=== PATIENT | male | born 1960 | race Caucasian/White ===

== ENCOUNTER 2021-06-17 19:49 | Inpatient (IN) | payer MEDICARE ==
[2021-06-17] MEDS ORDERED: SODIUM CHLORIDE 0.9% 1,000 ML IV ONE (20:44)
--- NOTE | 2021-06-17 20:45 | ED ---
Altered Mental Status HPI - General Stated Complaint: Altered Mental Status Time Seen by Provider: 06/17/21 20:07 - History of Present Illness Initial Comments: Is a 61-year-old male with unknown past medical history is brought to the ER today for apparent altered mental status. Apparently the patient's neighbor called 911 concerned the patient is not acting like himself. EMS reports the patient was actually showering when he got there but was agreeable to coming to the hospital. Upon my evaluation the patient will not answer any questions, he looks at me and says "umm" but provides no meaningful history. He appears to be in no distress he is ambulating independently to the restroom he has no P or weaknesses he follows commands, he was able to provide a urine sample when asked to do so. Review of Systems ROS Statement: Those systems with pertinent positive or pertinent negative responses have been documented in the HPI. ROS Other: All systems not noted in ROS Statement are negative. General Exam - General Exam Comments Initial Comments: Physical Exam GENERAL: Patient is well-developed and well-nourished. Patient is nontoxic and well-hydrated and is in no distress. HENT: Normocephalic, Atraumatic. EYES: PERRL, EOMI PULMONARY: Unlabored respirations. CARDIOVASCULAR: There is a regular rate and rhythm without any murmurs gallops or rubs. ABDOMEN: Soft and nontender with normal bowel sounds. SKIN: Skin is clear with no lesions or rashes and otherwise unremarkable. : Deferred NEUROLOGIC: Not responding verbally, Normal gait, no apparent weaknesses MUSCULOSKELETAL: Normal extremities with adequate strength and full range of motion. No lower extremity swelling or edema. No calf tenderness. PSYCHIATRIC: Unable to stand Course Vital Signs 06/17/21 06/18/21 22:41 00:08 Temperature 97.4 F L Pulse Rate 87 92 Respiratory 20 16 Rate Blood Pressure 115/69 129/74 O2 Sat by Pulse 96 95 Oximetry Medical Decision Making - Medical Decision Making The patient was seen and evaluated, history is obtained from EMS and the patient I did use the patient's cell phone to call his neighbor sandro for further history however after two calls she did not answer Labs and CT of the head were obtained Patient had difficult IV access and there is delay in obtaining labs however were unremarkable, CT brain was unremarkable She did stand at the doorway of his room and asked if he could go home, patient was able speak clearly without difficulty but when asked if he had any complaints or anything was wrong or why he was at the hospital he again was not answering questions. At this time even that the patient has no history in our computer has never been seen here can provide no meaningful information I don't feel it safe to discharge him and we'll place him in observation for further evaluation. - Lab Data Result diagrams: 06/17/21 22:28 06/17/21 22:28 Lab Results 06/17/21 06/17/21 06/17/21 Range/Units 22:24 22:28 22:28 WBC 4.7 (3.8-10.6) k/uL RBC 3.61 L (4.30-5.90) m/uL Hgb 13.5 (13.0-17.5) gm/dL Hct 38.1 L (39.0-53.0) % MCV 105.5 H (80.0-100.0) fL MCH 37.4 H (25.0-35.0) pg MCHC 35.5 (31.0-37.0) g/dL RDW 14.5 (11.5-15.5) % Plt Count 124 L (150-450) k/uL MPV 7.0 Neutrophils % 57 % Lymphocytes % 29 % Monocytes % 5 % Eosinophils % 4 % Basophils % 1 % Neutrophils # 2.7 (1.3-7.7) k/uL Lymphocytes # 1.3 (1.0-4.8) k/uL Monocytes # 0.2 (0-1.0) k/uL Eosinophils # 0.2 (0-0.7) k/uL Basophils # 0.0 (0-0.2) k/uL Macrocytosis Moderate PT 10.2 (9.0-12.0) sec INR 0.9 (<1.2) APTT 25.1 (22.0-30.0) sec Sodium (137-145) mmol/L Potassium (3.5-5.1) mmol/L Chloride (98-107) mmol/L Carbon Dioxide (22-30) mmol/L Anion Gap mmol/L BUN (9-20) mg/dL Creatinine (0.66-1.25) mg/dL Est GFR (CKD-EPI)AfAm (>60 ml/min/1.73 sqM) Est GFR (CKD-EPI)NonAf (>60 ml/min/1.73 sqM) Glucose (74-99) mg/dL POC Glucose (mg/dL) 129 H (75-99) mg/dL POC Glu Staff Therapist ID Argenis Hoover Calcium (8.4-10.2) mg/dL Total Bilirubin (0.2-1.3) mg/dL AST (17-59) U/L ALT (4-49) U/L Alkaline Phosphatase (38-126) U/L Troponin I (0.000-0.034) ng/mL Total Protein (6.3-8.2) g/dL Albumin (3.5-5.0) g/dL Urine Color Urine Appearance (Clear) Urine pH (5.0-8.0) Ur Specific [place] (1.001-1.035) Urine Protein (Negative) Urine Glucose (UA) (Negative) Urine Ketones (Negative) Urine Blood (Negative) Urine Nitrite (Negative) Urine Bilirubin (Negative) Urine Urobilinogen (<2.0) mg/dL Ur Leukocyte Esterase (Negative) Urine Opiates Screen (NotDetected) Ur Oxycodone Screen (NotDetected) Urine Methadone Screen (NotDetected) Ur Propoxyphene Screen (NotDetected) Ur Barbiturates Screen (NotDetected) U Tricyclic Antidepress (NotDetected) Ur Phencyclidine Scrn (NotDetected) Ur Amphetamines Screen (NotDetected) U Methamphetamines Scrn (NotDetected) U Benzodiazepines Scrn (NotDetected) Urine Cocaine Screen (NotDetected) U Marijuana (THC) Screen (NotDetected) 06/17/21 06/17/21 06/17/21 Range/Units 22:28 22:28 22:28 WBC (3.8-10.6) k/uL RBC (4.30-5.90) m/uL Hgb (13.0-17.5) gm/dL Hct (39.0-53.0) % MCV (80.0-100.0) fL MCH (25.0-35.0) pg MCHC (31.0-37.0) g/dL RDW (11.5-15.5) % Plt Count (150-450) k/uL MPV Neutrophils % % Lymphocytes % % Monocytes % % Eosinophils % % Basophils % % Neutrophils # (1.3-7.7) k/uL Lymphocytes # (1.0-4.8) k/uL Monocytes # (0-1.0) k/uL Eosinophils # (0-0.7) k/uL Basophils # (0-0.2) k/uL Macrocytosis PT (9.0-12.0) sec INR (<1.2) APTT (22.0-30.0) sec Sodium 130 L (137-145) mmol/L Potassium 4.5 (3.5-5.1) mmol/L Chloride 99 (98-107) mmol/L Carbon Dioxide 24 (22-30) mmol/L Anion Gap 7 mmol/L BUN 6 L (9-20) mg/dL Creatinine 0.71 (0.66-1.25) mg/dL Est GFR (CKD-EPI)AfAm >90 (>60 ml/min/1.73 sqM) Est GFR (CKD-EPI)NonAf >90 (>60 ml/min/1.73 sqM) Glucose 130 H (74-99) mg/dL POC Glucose (mg/dL) (75-99) mg/dL POC Glu Staff Therapist ID Calcium 8.6 (8.4-10.2) mg/dL Total Bilirubin 1.2 (0.2-1.3) mg/dL AST 195 H (17-59) U/L ALT 147 H (4-49) U/L Alkaline Phosphatase 82 (38-126) U/L Troponin I 0.014 (0.000-0.034) ng/mL Total Protein 6.9 (6.3-8.2) g/dL Albumin 4.0 (3.5-5.0) g/dL Urine Color Colorless Urine Appearance Clear (Clear) Urine pH 5.5 (5.0-8.0) Ur Specific [place] 1.002 (1.001-1.035) Urine Protein Negative (Negative) Urine Glucose (UA) Negative (Negative) Urine Ketones Negative (Negative) Urine Blood Negative (Negative) Urine Nitrite Negative (Negative) Urine Bilirubin Negative (Negative) Urine Urobilinogen <2.0 (<2.0) mg/dL Ur Leukocyte Esterase Negative (Negative) Urine Opiates Screen Not Detected (NotDetected) Ur Oxycodone Screen Detected H (NotDetected) Urine Methadone Screen Not Detected (NotDetected) Ur Propoxyphene Screen Not Detected (NotDetected) Ur Barbiturates Screen Not Detected (NotDetected) U Tricyclic Antidepress Not Detected (NotDetected) Ur Phencyclidine Scrn Not Detected (NotDetected) Ur Amphetamines Screen Not Detected (NotDetected) U Methamphetamines Scrn Not Detected (NotDetected) U Benzodiazepines Scrn Not Detected (NotDetected) Urine Cocaine Screen Not Detected (NotDetected) U Marijuana (THC) Screen Not Detected (NotDetected) Disposition Clinical Impression: Altered mental status Disposition: ADMITTED IP TO THIS [facility] Condition: Stable Is patient prescribed a controlled substance at d/c from ED?: No Referrals: None,Stated [REFERRING] - 1-2 days
[2021-06-17 22:26] LABS: Glucose,Whole Blood 129 mg/dL (75-99)
[2021-06-17 22:40] LABS: Basophils % (A) 1 %; Eosinophils # (A) 0.2 k/uL (0-0.7); Eosinophils % (A) 4 %; HCT 38.1 % (39.0-53.0); HGB 13.5 gm/dL (13.0-17.5); Lymphocytes # (A) 1.3 k/uL (1.0-4.8); Lymphocytes % (A) 29 %; MCH 37.4 pg (25.0-35.0); MCHC 35.5 g/dL (31.0-37.0); MCV 105.5 fL (80.0-100.0); Macrocytosis Moderate; Monocytes # (A) 0.2 k/uL (0-1.0); Monocytes % (A) 5 %; Neutrophils # (A) 2.7 k/uL (1.3-7.7); Neutrophils % (A) 57 %; Platelet Count 124 k/uL (150-450); RBC 3.61 m/uL (4.30-5.90); RDW 14.5 % (11.5-15.5); WBC 4.7 k/uL (3.8-10.6)
[2021-06-17 22:49] LABS: INR 0.9 (<1.2); Partial Thromboplastin Time 25.1 sec (22.0-30.0); Prothrombin Time 10.2 sec (9.0-12.0)
[2021-06-17 22:54] LABS: ALT 147 U/L (4-49); AST 195 U/L (17-59); African American GFR (CKD) >90 (>60 ml/min/1.73 sqM); Alkaline Phosphatase 82 U/L (38-126); Anion Gap 7 mmol/L; Blood Urea Nitrogen 6 mg/dL (9-20); Calcium 8.6 mg/dL (8.4-10.2); Carbon Dioxide 24 mmol/L (22-30); Chloride 99 mmol/L (98-107); Glucose 130 mg/dL (74-99); Non-African American GFR(CKD) >90 (>60 ml/min/1.73 sqM); Sodium 130 mmol/L (137-145); Total Bilirubin 1.2 mg/dL (0.2-1.3); Total Protein 6.9 g/dL (6.3-8.2)
[2021-06-17 23:06] LABS: Potassium 4.5 mmol/L (3.5-5.1)
--- NOTE | 2021-06-17 23:48 | XR ---
EXAMINATION TYPE: XR chest 2V DATE OF EXAM: 06/17/2021 COMPARISON: NONE HISTORY: Altered mental status TECHNIQUE: 2 views FINDINGS: There is no heart failure nor confluent pneumonic infiltrate. There are no hilar masses. Th ere is very slight blunting right costophrenic angle. Bony thorax is intact IMPRESSION: Mild pleural reaction lateral right lung base. No heart failure. No pulmonary consolidati on.
--- NOTE | 2021-06-17 23:52 | CT ---
EXAMINATION TYPE: CT brain wo con DATE OF EXAM: 06/17/2021 COMPARISON: None HISTORY: ams CT DLP: 1095.4 mGycm Automated exposure control for dose reduction was used. There is some hypodensity in the periventricular white matter with foci that measure up to 1 cm. This is consistent with multiple white matter lacunar infarcts. These are concentrated in the frontal lob es bilaterally. There is no mass effect nor midline shift. There is no sign of intracranial hemorrhag e. Calvarium is intact. Skull base is intact. IMPRESSION: There is evidence for multiple old lacunar infarcts in the frontal lobes bilaterally. No acute intrac ranial abnormality.
[2021-06-17 23:54] LABS: Appearance,Urine Clear (Clear); Bilirubin,Urine Negative (Negative); Blood,Urine Negative (Negative); Color,Urine Colorless; Glucose,Urine (UA) Negative (Negative); Ketones,Urine Negative (Negative); Leukocyte Esterase,Urine Negative (Negative); Nitrite,Urine Negative (Negative); PH, Urine 5.5 (5.0-8.0); Protein,Urine Negative (Negative); Specific Gravity,Urine 1.002 (1.001-1.035); Urobilinogen,Urine <2.0 mg/dL (<2.0)
[2021-06-18 00:05] LABS: Amphetamine Screen,Urine Not Detected (NotDetected); Barbiturate Screen,Urine Not Detected (NotDetected); Benzodiazepines Screen,Urine Not Detected (NotDetected); Cocaine Screen,Urine Not Detected (NotDetected); Methadone Screen, Urine Not Detected (NotDetected); Opiate Screen,Urine Not Detected (NotDetected); Oxycodone Screen, Urine Detected (NotDetected); Phencyclidine Screen,Urine Not Detected (NotDetected); Tricyclic Antidepressant,Urine Not Detected (NotDetected); Urn Cannabinoid Scrn Not Detected (NotDetected)
[2021-06-18] MEDS ORDERED: NALOXONE 0.4 MG/ML 1 ML VIAL IV PRN (00:44)
[2021-06-18] MEDS ORDERED: THIAMINE 100 MG/ML 2 ML VIAL IM STA (02:58)
[2021-06-18] MEDS ORDERED: LORazepam 2 MG/ML INJ IV PRN ×3 (02:58)
--- NOTE | 2021-06-18 02:58 | P.HPIM ---
History of Present Illness H&P Date: 06/17/21 Chief Complaint: altered mental status 61 year old male , unknown past medical history patient unable to provide any meaningful history , due to what appears like expressive aphasia per ED doc, and EMS staff. Patient remains has notified EMS of changes and patient behavior and mental status upon EMS arrival to the house the patient was taking a shower however he was saying anything he did not resist when EMS tried to evaluate him due to his behavior they decided to bring him to the hospital for evaluation patient did not resist and he was very cooperative In the ED he was having expressive aphasia but every now and then he would say 1 word or a small sentence fluently. He was seen walking independently to the bathroom and back. At another incident he was trying to go home so he got up and got to the door and he was told that he has stay in the hospital to be checked and monitored and he was okay with that and went back to bed. However he doesn't say much I tried to use a piece of paper to indicate yes and no however he was again unreliable he definitely has some component of expressive aphasia. There is an emergency contact number that we attempted to call and we used his phone to call with appears to be a family member however no one was answering Patient has never been told of system we can't identify his past medical history or his medication list Imaging in the ED CT of the brain and chest x-ray both did not show any acute pathology Blood work did show macrocytosis without anemia, thrombocytopenia Hyponatremia, moderately elevated liver enzymes Urine drug screen was only positive for oxycodone Otherwise patient follows commands properly Review of Systems ROS unobtainable: due to mental status Past Medical History Past Medical History: Unable to Obtain, Diabetes Mellitus History of Any Multi-Drug Resistant Organisms: None Reported Past Surgical History: Unable to Obtain Past Anesthesia/Blood Transfusion Reactions: Unable to Obtain Past Psychological History: Unable to Obtain Smoking Status: Current every day smoker Past Alcohol Use History: Occasional Past Drug Use History: None Reported - Past Family History Family Family Medical History: Unable to Obtain Medications and Allergies Allergies Allergy/AdvReac Type Severity Reaction Status Date / Time No Known Allergies Allergy Verified 06/18/21 01:00 Physical Exam Vitals: Vital Signs Temp Pulse Resp BP Pulse Ox 06/18/21 02:10 97.5 F L 81 18 121/70 96 06/18/21 00:08 92 16 129/74 95 06/17/21 22:41 97.4 F L 87 20 115/69 96 Intake and Output 06/17/21 06/17/21 06/18/21 14:59 22:59 06:59 Other: Weight 81.647 kg 81.647 kg Constitutional: No acute distress, expressive aphasia, following commands properly Eyes: Anicteric sclerae, moist conjunctiva, Pupils equal round reactive to light ENMT: NC/AT Oropharynx clear, no erythema, or exudates Neck: Supple, FROM, no masses, or JVD No carotid bruits No thyromegaly Lungs: Clear to auscultation Clear to percussion Normal respiratory effort, no accessory muscle use Cardiovascular: Heart regular in rate and rhythm, No murmurs, gallops, or rubs No peripheral edema Abdominal: Soft Nontender, no guarding, rebound or rigidity Abdomen moving with respiration Normoactive bowel sounds No hepatomegaly, No splenomegaly No palpable mass No abdominal wall hernia noted Skin: Normal temperature, tone, texture, turgor No induration No subcutaneous nodules No rash, lesions No ulcers Extremities: No digital cyanosis No clubbing Pedal pulses intact and symmetrical Radial pulses intact and symmetrical No calf tenderness Psychiatric: Alert expressive aphasia Neuro Muscles Strength 5/5 in all 4 extremities Sensation to light touch grossly present throughout Cranial nerves II-XII grossly intact No focal sensory deficits Lymphatics: no palpable cervical or supraclavicular , or inguinal lymph nodes Results CBC & Chem 7: 06/17/21 22:28 06/17/21 22:28 Labs: Abnormal Lab Results - Last 24 Hours (Table) 06/17/21 06/17/21 06/17/21 Range/Units 22:24 22:28 22:28 RBC 3.61 L (4.30-5.90) m/uL Hct 38.1 L (39.0-53.0) % MCV 105.5 H (80.0-100.0) fL MCH 37.4 H (25.0-35.0) pg Plt Count 124 L (150-450) k/uL Sodium (137-145) mmol/L BUN (9-20) mg/dL Glucose (74-99) mg/dL POC Glucose (mg/dL) 129 H (75-99) mg/dL AST (17-59) U/L ALT (4-49) U/L Ur Oxycodone Screen Detected H (NotDetected) 06/17/21 Range/Units 22:28 RBC (4.30-5.90) m/uL Hct (39.0-53.0) % MCV (80.0-100.0) fL MCH (25.0-35.0) pg Plt Count (150-450) k/uL Sodium 130 L (137-145) mmol/L BUN 6 L (9-20) mg/dL Glucose 130 H (74-99) mg/dL POC Glucose (mg/dL) (75-99) mg/dL AST 195 H (17-59) U/L ALT 147 H (4-49) U/L Ur Oxycodone Screen (NotDetected) Thrombosis Risk Factor Assmnt - Choose All That Apply Each Factor Represents 1 point: Age 41-60 years Other Risk Factors: No Other congenital or acquired thrombophilia - If yes, enter type in comment: No Thrombosis Risk Factor Assessment Total Risk Factor Score: 1 Thrombosis Risk Factor Assessment Level: Low Risk Assessment and Plan Assessment: Expressive aphasia unknown duration Bizarre behavior possible altered mental status of unknown duration No family members accessible at this time to obtain further history Patient new To the system no prior data Patient roommate reported to EMS that patient has been having odd behavior or confusion for at least [address] of the brain unremarkable There is moderate transaminitis 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
[2021-06-18] MEDS: SODIUM CHLORIDE 0.9% 1,000 ML IV SCH ×3 (03:11→18:35)
[2021-06-18] MEDS ORDERED: ASPIRIN 81 MG PO STA (10:42)
--- NOTE | 2021-06-18 10:44 | P.PN ---
Subjective Progress Note Date: 06/18/21 Pt still having trouble with expression; intermittently able to give clear sentence or words. Follows commands. is apparently in communication with patient and is on her way to hospital. Objective - Vital Signs Vital signs: Vital Signs Temp 97.9 F 06/18/21 07:40 Pulse 86 06/18/21 07:40 Resp 18 06/18/21 07:40 BP 154/86 06/18/21 07:40 Pulse Ox 93 L 06/18/21 07:40 Intake & Output 06/17/21 06/18/21 06/18/21 18:59 06:59 18:59 Weight 81.647 kg Other: # Voids 0 - Exam Gen: awake, alert HEENT: normocephalic, atraumatic, good hearing acuity, moist mucous membranes Resp: good air exchange, breathing comfortably with no accessory muscle use CVS: good distal perfusion x 4, GI: soft, NTTP, ND : no SPT, no CVAT, delatorre catheter not present MSK: no pitting edema, no clubbing Neuro: expressive aphasia, moving all extremities, 5/5 motor strength in UE/LE Psych: cooperative, psychomotor agitation - Labs CBC & Chem 7: 06/17/21 22:28 06/17/21 22:28 Labs: Abnormal Lab Results - Last 24 Hours (Table) 06/17/21 06/17/21 06/17/21 Range/Units 22:24 22:28 22:28 RBC 3.61 L (4.30-5.90) m/uL Hct 38.1 L (39.0-53.0) % MCV 105.5 H (80.0-100.0) fL MCH 37.4 H (25.0-35.0) pg Plt Count 124 L (150-450) k/uL Sodium (137-145) mmol/L BUN (9-20) mg/dL Glucose (74-99) mg/dL POC Glucose (mg/dL) 129 H (75-99) mg/dL AST (17-59) U/L ALT (4-49) U/L Ur Oxycodone Screen Detected H (NotDetected) 06/17/21 Range/Units 22:28 RBC (4.30-5.90) m/uL Hct (39.0-53.0) % MCV (80.0-100.0) fL MCH (25.0-35.0) pg Plt Count (150-450) k/uL Sodium 130 L (137-145) mmol/L BUN 6 L (9-20) mg/dL Glucose 130 H (74-99) mg/dL POC Glucose (mg/dL) (75-99) mg/dL AST 195 H (17-59) U/L ALT 147 H (4-49) U/L Ur Oxycodone Screen (NotDetected) Assessment and Plan Assessment: Expressive aphasia unknown duration Bizarre behavior possible altered mental status of unknown duration No family members accessible at this time to obtain further history Patient new To the system no prior data Patient roommate reported to EMS that patient has been having odd behavior or confusion for at least [address] of the brain unremarkable Neuro consult Consideration of psych consult if no organic cause found and no resolution of aphasia There is moderate transaminitis 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
--- NOTE | 2021-06-18 12:59 | CT ---
EXAMINATION TYPE: CT angio head neck DATE OF EXAM: 06/18/2021 HISTORY: Expressive aphasia COMPARISON: None CT DLP: 1702.3 mGycm. Automated Exposure Control for Dose Reduction was Utilized. TECHNIQUE: CTA scan of the neck is performed without and with IV Contrast, patient injected with 100 ml mL of Isovue 370, axial images are obtained, coronal and sagittal reformatted images are reviewed . 3D reconstructed images are created on an independent workstation and reviewed. FINDINGS: Carotid/Vascular Structures: There is no significant stenosis of the brachiocephalic origins, common carotid arteries, internal carotid arteries within the neck including the carotid bifurcations or int ernal carotid arteries intracranially. There is mild calcified plaque at the carotid bifurcations. Mild vascular calcifications involving the carotid siphons. There is no significant stenosis of the v ertebral arteries or basilar artery. There is no evidence of aneurysm or occlusive disease of the intracranial arterial circulation. The ventricles, basal cisterns and sulci over the convexities are within normal limits. There is no i ntra or extra-axial hemorrhage. There is no mass effect or shift of the midline structures. There are is a remote lacunar infarct in the left thalamus and of the deep periventricular white ariana er adjacent to the anterior horn of the left ventricle. IMPRESSION: 1. Remote lacunar infarcts in the white matter of the left frontal lobe and of the left thalamus. 2. Arteriosclerotic calcifications involving the carotid bifurcations and carotid siphons. 3. No significant stenosis of the arterial circulation involving the brachiocephalic origins, the car otid arteries within the neck or intracranial circulation. NASCET criteria was used in interpretation of this exam?
[2021-06-18 13:20] LABS: Basophils # (A) 0.06 X 10*3/uL (0.00-0.10); Basophils % (A) 1.3 %; Eosinophils # (A) 0.13 X 10*3/uL (0.04-0.35); Eosinophils % (A) 2.9 %; HCT 36.3 % (39.6-50.0); HGB 12.2 g/dL (13.0-17.0); Lymphocytes % (A) 19.7 %; MCH 35.2 pg (27.0-32.0); MCHC 33.6 g/dL (32.0-37.0); MCV 104.6 fL (80.0-97.0); Mean Platelet Volume 9.4 fL (9.5-12.2); Monocytes # (A) 0.31 X 10*3/uL (0.20-1.00); Monocytes % (A) 6.8 %; Neutrophils # (A) 3.14 X 10*3/uL (1.80-7.70); Neutrophils % (A) 68.9 %; Platelet Count 100 X 10*3/uL (140-440); RBC 3.47 X 10*6/uL (4.40-5.60); RDW 13.6 % (11.5-14.5); WBC 4.56 X 10*3/uL (4.50-10.00)
[2021-06-18 13:52] LABS: African American GFR (CKD) 113.3 (60.0-200.0); Albumin/Globulin Ratio 1.9 (1.60-3.17); Anion Gap 0.3 mmol/L (4.00-12.00); BUN/Creat Ratio 8.75 Ratio (12.00-20.00); Calcium 8.7 mg/dL (8.7-10.3); Carbon Dioxide 29.7 mmol/L (21.6-31.8); Chol/HDL Ratio 1.89; Globulin 2.1 g/dL (1.6-3.3); LDL Cholesterol,Calculated 53.2 mg/dL (0.0-131.0); Non-African American GFR(CKD) 97.8 (60.0-200.0); Potassium 4.4 mmol/L (3.5-5.5); Total Bilirubin 1.3 mg/dL (0.3-1.2); Total Protein 6.1 g/dL (6.2-8.2); VLDL Calculation 11.8 mg/dL (5.00-40.00)
[2021-06-18 14:21] LABS: Hemoglobin A1C 5.5 % (4.0-6.0)
[2021-06-18 16:06] LABS: Hepatitis A Antibody IgM Non-Reactive (Non-Reactive); Hepatitis B Core IgM Non-Reactive (Non-Reactive); Hepatitis B Surface Antigen Non-Reactive (Non-Reactive); Hepatitis C IgG Antibody Non-Reactive (Non-Reactive)
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
[2021-06-18] MEDS: THIAMINE 100 MG TAB PO SCH (17:14)
[2021-06-18] MEDS ORDERED: ALPRAZolam 0.5 MG TAB PO PRN (17:40)
[2021-06-18] MEDS ORDERED: HYDROcodone/APAP 7.5-325MG 1 EACH TAB PO PRN (17:40)
[2021-06-18] MEDS ORDERED: ALBUTEROL NEBULIZED 2.5 MG/3 ML INHALATION PRN (17:40)
[2021-06-18] MEDS: CYCLOBENZAPRINE 10 MG TAB PO SCH (20:03)
[2021-06-19] MEDS: SODIUM CHLORIDE 0.9% 1,000 ML IV SCH ×2 (04:11→09:24)
[2021-06-19] MEDS: THIAMINE 100 MG TAB PO SCH ×2 (06:47→15:25)
[2021-06-19] MEDS: INSULIN ASPART (NovoLOG) 100 UNIT/ML VIAL SQ SCH ×3 (06:56→15:25)
[2021-06-19] MEDS ORDERED: lisinopriL 5 MG TAB PO SCH (09:00)
[2021-06-19] MEDS ORDERED: ASPIRIN 325 MG TAB PO SCH (09:00)
[2021-06-19] MEDS ORDERED: INSULIN DETEMIR (LEVEMIR) 100 UNIT/ML SYR SQ SCH (09:00)
[2021-06-19] MEDS ORDERED: ATORVASTATIN 20 MG TAB PO SCH (09:00)
[2021-06-19] MEDS: CYCLOBENZAPRINE 10 MG TAB PO SCH (09:23)
[2021-06-19 09:28] VITALS: RESP 18
[2021-06-19 11:15] VITALS: BP 121/94; PULSE 94; TEMP 97.9
[2021-06-19 11:53] LABS: Glucose,Whole Blood 157 mg/dL (75-99)
--- NOTE | 2021-06-19 12:33 | ECHOF ---
Referral Reason:cva MEASUREMENTS -------- HEIGHT: 177.8 cm WEIGHT: 81.6 kg BP: 168/110 RVIDd: 2.2 cm (< 3.3) IVSd: 1.0 cm (0.6 - 1.1) LVIDd: 4.8 cm (3.9 - 5.3) LVPWd: 1.0 cm (0.6 - 1.1) IVSs: 1.4 cm LVIDs: 2.7 cm LVPWs: 1.8 cm LA Diam: 3.3 cm (2.7 - 3.8) Ao Diam: 3.5 cm (2.0 - 3.7) AV Cusp: 2.4 cm (1.5 - 2.6) MV EXCURSION: 16.312 mm (> 18.000) MV EF SLOPE: 171 mm/s (70 - 150) EPSS: 1.0 cm MV E Vicente: 0.75 m/s MV DecT: 194 ms MV A Vicente: 1.00 m/s MV E/A Ratio: 0.75 FINDINGS -------- Sinus rhythm. This was a technically difficult study with suboptimal views. The left ventricular size is normal. Left ventricular wall thickness is normal. Overall left vent ricular systolic function is normal with, an EF between 60 - 65 %. The right ventricle is normal in size. The left atrium is normal in size. The right atrium is normal in size. Bubbles not performed due to poor acustic windows Interatrial and interventricular septum intact. The aortic valve is trileaflet, and appears structurally normal. No aortic stenosis or regurgitation. Mild mitral annular calcification present. The tricuspid valve appears structurally normal. The pulmonic valve was not well visualized. The aortic root size is normal. IVC Not well visulized. There is no pericardial effusion. CONCLUSIONS -------- 1. The left ventricular size is normal. 2. Left ventricular wall thickness is normal. 3. Overall left ventricular systolic function is normal with, an EF between 60 - 65 %. 4. Bubbles not performed due to poor acustic windows 5. The aortic valve is trileaflet, and appears structurally normal. No aortic stenosis or regurgitati on. 6. Mild mitral annular calcification present. 7. There is no pericardial effusion. CARPENTER HELPER: Nikky Willis LENNIE
--- NOTE | 2021-06-19 14:47 | MR ---
EXAMINATION TYPE: MR brain wo con DATE OF EXAM: 06/19/2021 COMPARISON: 06/17/2021 CT brain HISTORY: Acute CVA, Loss of speech-returned 06-19-21 CONTRAST: Performed utilizing 0 mL intravenous Gadavist gadolinium contrast. TECHNIQUE: Multiplanar, multiecho imaging on a 3.0 Lucia magnet is performed through the brain. Stud y is performed within 24 hours of arrival to the hospital. The craniovertebral junction is normal. The pituitary is normal. Diffusion-weighted imaging is performed. No abnormal hyperintensity is present to suggest an acute i ntracranial infarct or acute ischemic change. There are scattered periventricular white matter hyperintensities, likely on the basis of chronic whi te matter ischemic change. An old lacunar infarct in the left frontal region adjacent to the anterior horn of the lateral ventricle may be present. Small lacunar infarct in the left thalamus may be pres ent. Ventricles and sulci are slightly prominent for the patient age. IMPRESSIONS: 1. No acute intracranial process. 2. Chronic appearing periventricular and deep white matter ischemic type changes. Couple of old appea ring small lacunar infarcts in the left frontal lobe and in the left thalamus may be present.
--- NOTE | 2021-06-19 15:04 | P.DS ---
Providers Date of admission: 06/18/21 00:48 Expected date of discharge: 06/19/21 Attending physician: Tato Allen MD Consults: 06/18/21 02:39 Consult Physician Routine Consulting Provider: Naman Freedman Consult Reason/Comments: expressive aphasia Do you want consulting provider notified?: Yes Primary care physician: Physician Nonstaff Hospital Course: Transient Ischemic Attack Expressive aphasia unknown duration Bizarre behavior possible altered mental status of unknown duration Nicotine Abuse Patient was admitted with expressive aphasia and bizarre behavior. He was seen in consultation with Neurology. Started on aspirin and statin was continued. Pt underwent CTH, CT Angiography of H/N, and MRI of the brain; no acute stroke, but old lacunar strokes. Symptoms of aphasia and behavior resolved spontaneously after 24 hours of hospitalization/observation. Pt d/c'd home with instructions to f/u with PCP. Smoking cessation counseling advised. Assessment: Gen: awake, alert HEENT: normocephalic, atraumatic, good hearing acuity, moist mucous membranes Resp: good air exchange, breathing comfortably with no accessory muscle use CVS: good distal perfusion x 4, GI: soft, NTTP, ND : no SPT, no CVAT, delatorre catheter not present MSK: no pitting edema, no clubbing Neuro: expressive aphasia, moving all extremities, 5/5 motor strength in UE/LE Psych: cooperative, euthymia Patient Condition at Discharge: Good Plan - Discharge Summary Discharge Rx Participant: No New Discharge Prescriptions: New Aspirin [Adult Low Dose Aspirin EC] 81 mg PO DAILY #30 tab Continue Albuterol Sulfate [Ventolin HFA] 2 puff INHALATION RT-Q6H PRN PRN Reason: Shortness Of Breath lisinopriL [Zestril] 5 mg PO DAILY HYDROcodone/APAP 7.5-325MG [Wilson 7.5-325] 1 tab PO TID PRN PRN Reason: Pain glipiZIDE XL [Glucotrol XL] 5 mg PO TID Atorvastatin Calcium [Lipitor] 20 mg PO DAILY metFORMIN HCL [Glucophage] 850 mg PO TID-W/MEALS Insulin Glargine,Hum.rec.anlog [Lantus Solostar Pen] 25 unit SQ DAILY Cyclobenzaprine HCl 10 mg PO BID ALPRAZolam [Xanax] 0.5 mg PO HS PRN PRN Reason: sleep Discharge Medication List ALPRAZolam [Xanax] 0.5 mg PO HS PRN 06/18/21 [History] Albuterol Sulfate [Ventolin HFA] 2 puff INHALATION RT-Q6H PRN 06/18/21 [History] Atorvastatin Calcium [Lipitor] 20 mg PO DAILY 06/18/21 [History] Cyclobenzaprine HCl 10 mg PO BID 06/18/21 [History] HYDROcodone/APAP 7.5-325MG [Wilson 7.5-325] 1 tab PO TID PRN 06/18/21 [History] Insulin Glargine,Hum.rec.anlog [Lantus Solostar Pen] 25 unit SQ DAILY 06/18/21 [History] glipiZIDE XL [Glucotrol XL] 5 mg PO TID 06/18/21 [History] lisinopriL [Zestril] 5 mg PO DAILY 06/18/21 [History] metFORMIN HCL [Glucophage] 850 mg PO TID-W/MEALS 06/18/21 [History] Aspirin [Adult Low Dose Aspirin EC] 81 mg PO DAILY #30 tab 06/19/21 [Rx] Follow up Appointment(s)/Referral(s): Jasmine Claudio MD [REFERRING] - 07/10/21 11:00 am (SATURDAY) None,Stated [REFERRING] - 1-2 days Patient Instructions/Handouts: Transient Ischemic Attack (DC), Abuse of Alcohol (DC) Discharge Disposition: HOME SELF-CARE
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
== END 2021-06-19 16:07 | disposition home or self-care (01) | DRG 69 ==
LOC: EC 19:49 → 4SSUR 06-18 00:48 → 3SCARD 06-18 18:26 → OBSVTOIN 06-19 13:55
PROVIDERS: ADMIT Internal Medicine; ATTEND Internal Medicine
DX: G45.9 Transient cerebral ischemic attack, unspecified (principal); E87.1 Hypo-osmolality and hyponatremia; R47.01 Aphasia; R41.82 Altered mental status, unspecified; I69.328 Other speech and language deficits following cerebral infarction; F10.20 Alcohol dependence, uncomplicated; I10 Essential (primary) hypertension; D75.89 Other specified diseases of blood and blood-forming organs; E11.9 Type 2 diabetes mellitus without complications; F91.9 Conduct disorder, unspecified; E78.5 Hyperlipidemia, unspecified; F17.210 Nicotine dependence, cigarettes, uncomplicated; D69.6 Thrombocytopenia, unspecified; Z74.01 Bed confinement status; Z20.822 Contact with and (suspected) exposure to COVID-19; Z71.6 Tobacco abuse counseling; Z79.84 Long term (current) use of oral hypoglycemic drugs; Z79.899 Other long term (current) drug therapy; Z87.828 Personal history of other (healed) physical injury and trauma
CPT/HCPCS: 36415; 70450; 70496; 70498; 70551; 71046; 80053; 80061; 80074; 80306; 81003; 82607; 82747; 83036; 84443; 84484; 85025; 85610; 85730; 87635; 93005; 93306; 96360; 99285

== ENCOUNTER 2021-06-22 19:15 | Inpatient (IN) | payer MEDICARE ==
[2021-06-22 19:32] VITALS: RESP 18
[2021-06-22 19:42] LABS: Basophils % (A) 1 %; Eosinophils % (A) 1 %; HCT 35.1 % (39.0-53.0); HGB 11.6 gm/dL (13.0-17.5); Lymphocytes # (A) 0.4 k/uL (1.0-4.8); Lymphocytes % (A) 13 %; MCH 36.4 pg (25.0-35.0); MCV 110.3 fL (80.0-100.0); Macrocytosis Marked; Mean Platelet Volume 8.9; Monocytes # (A) 0.2 k/uL (0-1.0); Monocytes % (A) 6 %; Neutrophils # (A) 2.6 k/uL (1.3-7.7); Neutrophils % (A) 78 %; RBC 3.19 m/uL (4.30-5.90); RDW 13.8 % (11.5-15.5); WBC 3.4 k/uL (3.8-10.6)
[2021-06-22 19:45] LABS: Platelet Count 76 k/uL (150-450)
[2021-06-22 19:53] LABS: ALT 89 U/L (4-49); AST 82 U/L (17-59); African American GFR (CKD) >90 (>60 ml/min/1.73 sqM); Albumin 3.3 g/dL (3.5-5.0); Alkaline Phosphatase 92 U/L (38-126); Anion Gap 7 mmol/L; Blood Urea Nitrogen 9 mg/dL (9-20); Calcium 8.3 mg/dL (8.4-10.2); Carbon Dioxide 23 mmol/L (22-30); Chloride 107 mmol/L (98-107); Creatine Kinase 44 U/L (55-170); Glucose 64 mg/dL (74-99); Non-African American GFR(CKD) >90 (>60 ml/min/1.73 sqM); Sodium 137 mmol/L (137-145); Total Bilirubin 1.1 mg/dL (0.2-1.3); Total Protein 5.9 g/dL (6.3-8.2)
[2021-06-22 20:09] LABS: Partial Thromboplastin Time 25.9 sec (22.0-30.0); Prothrombin Time 10.8 sec (9.0-12.0)
--- NOTE | 2021-06-22 20:24 | CT ---
EXAMINATION: CT brain wo con for TPA DATE AND TIME: 06/22/2021 7:31 PM CLINICAL INDICATION: PHH; Weakness right-sided TECHNIQUE: Standard departmental protocol DLP: 1144.8 mGy-cm COMPARISON: 06/17/2021 FINDINGS: The calvarium is intact. There is no intracranial hemorrhage. There is no intracranial mass or mass effect. No definite new intra-axial or extra-axial attenuation defect. The paranasal sinuses, middle ear cavities, and mastoid sinus air cells are clear. The orbits are unremarkable. IMPRESSION: NO ACUTE PROCESS.
[2021-06-22] MEDS ORDERED: DEXTROSE 50% SYRINGE 50 ML IVP STA (20:55)
--- NOTE | 2021-06-22 20:55 | CT ---
EXAMINATION TYPE: CT angio head neck with contrast and with 3-D reconstruction renderings DATE OF EXAM: 06/22/2021 HISTORY: Right sided weakness. Recent TIAs. COMPARISON: 06/18/2021 CT DLP: 545.8 mGycm. Automated Exposure Control for Dose Reduction was Utilized. TECHNIQUE: CTA scan of the neck is performed with IV Contrast, patient injected with 65 mL of Isovue 370, axial images are obtained, coronal and sagittal reformatted images are reviewed. 3D reconstruct ed images are created on an independent workstation and reviewed. FINDINGS: NECK CTA: The bilateral carotid and the bilateral vertebral arterial systems are widely patent. No di ssection. No flow-limiting stenosis. The venous structures of the neck are unremarkable. No incidenta l nonvascular findings. BRAIN CTA: The anterior circulation and posterior circulation are negative for significant findings. Dural venous sinuses are patent. No incidental nonvascular findings. IMPRESSION: NO SIGNIFICANT ABNORMALITY IS SEEN. NASCET criteria was used in interpretation of this exam?
[2021-06-22] MEDS ORDERED: ASPIRIN 325 MG TAB PO STA (21:05)
--- NOTE | 2021-06-22 21:10 | XR ---
EXAMINATION: XR chest 2V DATE AND TIME: 06/22/2021 8:26 PM CLINICAL INDICATION: PHH; altered mental status TECHNIQUE: Departmental protocol COMPARISON: 06/17/2021 FINDINGS: Compared with the prior study, the right hemidiaphragm is elevated. There is subtle added opacity which silhouettes the pulmonary vasculature in the right mid and lower lung zones. This was not seen on the prior study. This finding could correlate with a clinical diagno sis of early developing atypical pneumonia. If there is no clinical suspicion for atypical pneumonia, the differential for the radiographic finding includes pleural calcification. Lungs are otherwise unremarkable. Pleural spaces are negative. The cardiac silhouette is not enlarged. The remainder of the mediastinal silhouette is unremarkable. The skeletal structures and soft tissues are negative for acute findings . IMPRESSION: Silhouetted right mid and lower lung zone pulmonary vasculature, as discussed
[2021-06-22 21:14] LABS: Glucose,Whole Blood 48 mg/dL (75-99)
--- NOTE | 2021-06-22 21:43 | ED ---
Neuro HPI - General Chief Complaint: Neuro Symptoms/Deficit Stated Complaint: prince Source: patient, EMS Mode of arrival: EMS - History of Present Illness Is the patient presenting with stroke symptoms?: Yes Initial Comments: 61-year-old male presents emergency room with strokelike symptoms. He was seen earlier this week for a possible TIA. He was at home with his roommate. Remaining left to go buy some groceries. She states she was only gone for an hour. When she returned she found the patient on the ground with complete right-sided hemiparesis. He was having difficulties with his speech. EMS stated that the patient had speech difficulties, facial droop and weakness on his right side. There is no reportable trauma from his fall. They did check his glucose and it was in the 70s. They did give him oral glucose. Patient was just discharged home on aspirin. He is an insulin dependent diabetic. States he normally takes his insulin at night after he eats dinner. Reports that he normally does not eat breakfast. Patient did not eat today. He admits to lauren rred vision in his right eye. Upon transporting to the hospital the patient did have rapidly improving symptoms. No other alleviating, precipitating or modifying factors - Related Data Home Medications: Home Medications Medication Instructions Recorded Confirmed ALPRAZolam [Xanax] 0.5 mg PO HS PRN 06/18/21 06/22/21 Albuterol Sulfate [Ventolin HFA] 2 puff INHALATION RT-Q6H PRN 06/18/21 06/22/21 Atorvastatin Calcium [Lipitor] 20 mg PO DAILY 06/18/21 06/22/21 Cyclobenzaprine HCl 10 mg PO BID 06/18/21 06/22/21 HYDROcodone/APAP 7.5-325MG [[place] 1 tab PO DAILY PRN 06/18/21 06/22/21 7.5-325] Insulin Glargine,Hum.rec.anlog 25 unit SQ DAILY 06/18/21 06/22/21 [Lantus Solostar Pen] glipiZIDE XL [Glucotrol XL] 5 mg PO TID 06/18/21 06/22/21 lisinopriL [Zestril] 5 mg PO DAILY 06/18/21 06/22/21 metFORMIN HCL [Glucophage] 850 mg PO TID-W/MEALS 06/18/21 06/22/21 Previous Rx's Medication Instructions Recorded Aspirin [Adult Low Dose Aspirin EC] 81 mg PO DAILY #30 tab 06/19/21 Allergies/Adverse Reactions: Allergies Allergy/AdvReac Type Severity Reaction Status Date / Time No Known Allergies Allergy Verified 06/22/21 19:47 Review of Systems ROS Statement: Those systems with pertinent positive or pertinent negative responses have been documented in the HPI. ROS Other: All systems not noted in ROS Statement are negative. Stroke MDM - Lab Data Result diagrams: 06/22/21 19:34 06/22/21 19:34 Lab Results 06/22/21 06/22/21 06/22/21 Range/Units 19:34 19:34 19:34 WBC 3.4 L (3.8-10.6) k/uL RBC 3.19 L (4.30-5.90) m/uL Hgb 11.6 L (13.0-17.5) gm/dL Hct 35.1 L (39.0-53.0) % MCV 110.3 H (80.0-100.0) fL MCH 36.4 H (25.0-35.0) pg MCHC 33.0 (31.0-37.0) g/dL RDW 13.8 (11.5-15.5) % Plt Count 76 L (150-450) k/uL MPV 8.9 Neutrophils % 78 % Lymphocytes % 13 % Monocytes % 6 % Eosinophils % 1 % Basophils % 1 % Neutrophils # 2.6 (1.3-7.7) k/uL Lymphocytes # 0.4 L (1.0-4.8) k/uL Monocytes # 0.2 (0-1.0) k/uL Eosinophils # 0.0 (0-0.7) k/uL Basophils # 0.0 (0-0.2) k/uL Macrocytosis Marked A PT 10.8 (9.0-12.0) sec INR 1.0 (<1.2) APTT 25.9 (22.0-30.0) sec Sodium 137 (137-145) mmol/L Potassium 4.0 (3.5-5.1) mmol/L Chloride 107 (98-107) mmol/L Carbon Dioxide 23 (22-30) mmol/L Anion Gap 7 mmol/L BUN 9 (9-20) mg/dL Creatinine 0.65 L (0.66-1.25) mg/dL Est GFR (CKD-EPI)AfAm >90 (>60 ml/min/1.73 sqM) Est GFR (CKD-EPI)NonAf >90 (>60 ml/min/1.73 sqM) Glucose 64 L (74-99) mg/dL POC Glucose (mg/dL) (75-99) mg/dL POC Glu Deliverer Food ID Calcium 8.3 L (8.4-10.2) mg/dL Total Bilirubin 1.1 (0.2-1.3) mg/dL AST 82 H (17-59) U/L ALT 89 H (4-49) U/L Alkaline Phosphatase 92 (38-126) U/L Creatine Kinase 44 L (55-170) U/L Troponin I (0.000-0.034) ng/mL Total Protein 5.9 L (6.3-8.2) g/dL Albumin 3.3 L (3.5-5.0) g/dL 06/22/21 06/22/21 Range/Units 19:34 21:13 WBC (3.8-10.6) k/uL RBC (4.30-5.90) m/uL Hgb (13.0-17.5) gm/dL Hct (39.0-53.0) % MCV (80.0-100.0) fL MCH (25.0-35.0) pg MCHC (31.0-37.0) g/dL RDW (11.5-15.5) % Plt Count (150-450) k/uL MPV Neutrophils % % Lymphocytes % % Monocytes % % Eosinophils % % Basophils % % Neutrophils # (1.3-7.7) k/uL Lymphocytes # (1.0-4.8) k/uL Monocytes # (0-1.0) k/uL Eosinophils # (0-0.7) k/uL Basophils # (0-0.2) k/uL Macrocytosis PT (9.0-12.0) sec INR (<1.2) APTT (22.0-30.0) sec Sodium (137-145) mmol/L Potassium (3.5-5.1) mmol/L Chloride (98-107) mmol/L Carbon Dioxide (22-30) mmol/L Anion Gap mmol/L BUN (9-20) mg/dL Creatinine (0.66-1.25) mg/dL Est GFR (CKD-EPI)AfAm (>60 ml/min/1.73 sqM) Est GFR (CKD-EPI)NonAf (>60 ml/min/1.73 sqM) Glucose (74-99) mg/dL POC Glucose (mg/dL) 48 L (75-99) mg/dL POC Glu Deliverer Food ID Dulce Tolbert Calcium (8.4-10.2) mg/dL Total Bilirubin (0.2-1.3) mg/dL AST (17-59) U/L ALT (4-49) U/L Alkaline Phosphatase (38-126) U/L Creatine Kinase (55-170) U/L Troponin I <0.012 (0.000-0.034) ng/mL Total Protein (6.3-8.2) g/dL Albumin (3.5-5.0) g/dL - Medical Decision Making Upon arrival patient is probably taken over to CT. I did assess an NIH and it is 5 for right upper and lower extremity weakness as well as facial droop. CT and CT angiography or performed. Patient is placed back in the trauma bay. Accu-Chek obtained and is 64. Patient given an amp of dextrose. Laboratory studies are conducted. Platelets 76. CT demonstrates no acute intracranial process. I did give him a full dose aspirin. I spoke with Dr. Roque. Patient is not a TPA candidate at this time due to recent CVA and rapidly impr oving symptoms. Dr. Atkins recommend aspirin and neurology evaluation. Patient's glucose is rechecked and is 48. He is given something to eat. Spoke with Dr. Quintanilla in regards to the patient's admission. He does agree to admit the patient. He is currently awaiting a bed on the floor in stable condition. He continues to have some weakness in his right upper extremity however all other neuro deficits have improved 06/22/21 21:49 EKG demonstrates a normal sinus rhythm with a ventricular rate of 85. MO interval is 142. QRS 76. QTC 456. No acute ST segment elevations or depressions Past Medical History Past Medical History: Unable to Obtain, Diabetes Mellitus History of Any Multi-Drug Resistant Organisms: None Reported Past Surgical History: Unable to Obtain Past Anesthesia/Blood Transfusion Reactions: Unable to Obtain Past Psychological History: Unable to Obtain Smoking Status: Current every day smoker Past Alcohol Use History: Occasional Past Drug Use History: None Reported - Past Family History Family Family Medical History: Unable to Obtain Course Vital Signs 06/22/21 06/22/21 06/22/21 19:20 19:35 19:50 Temperature 98.1 F 98.1 F Pulse Rate 55 L 91 88 Respiratory 18 18 18 Rate Blood Pressure 137/91 143/90 O2 Sat by Pulse 93 L 95 95 Oximetry 06/22/21 06/22/21 20:05 21:48 Temperature Pulse Rate 94 99 Respiratory 18 18 Rate Blood Pressure 148/82 134/83 O2 Sat by Pulse 98 98 Oximetry Critical Care Time Critical Care Time: Yes Critical Care Time: 32 minutes Disposition Clinical Impression: Right hemiparesis, Cerebrovascular accident (CVA), Hypoglycemia Disposition: ADMITTED IP TO THIS [facility] Condition: Stable Is patient prescribed a controlled substance at d/c from ED?: No Decision to Admit Reason: Admit from EC Decision Date: 06/22/21 Decision Time: 21:43
[2021-06-22] MEDS ORDERED: ATORVASTATIN 80 MG TAB PO SCH (22:00)
[2021-06-22 22:12] LABS: Glucose,Whole Blood 177 mg/dL (75-99)
[2021-06-22] MEDS ORDERED: ALBUTEROL NEBULIZED 2.5 MG/3 ML INHALATION PRN (23:58)
[2021-06-22] MEDS ORDERED: ALPRAZolam 0.5 MG TAB PO PRN (23:58)
[2021-06-22] MEDS ORDERED: HYDROcodone/APAP 7.5-325MG 1 EACH TAB PO PRN (23:58)
--- NOTE | 2021-06-23 | P.HPIM ---
History of Present Illness H&P Date: 06/22/21 Patient is a 61-year-old male with a PMH of type II DM, hypertension, hyperlipidemia, recent TIA who presented to the emergency room with sudden onset of strokelike symptoms. The patient reports that he was at home as per usual sitting on his couch at around 8 PM watching television when he suddenly felt the right side of his body become weak. He reported that he was unable to speak due to the right facial weakness and was barely able to move or feel his right arm and leg. The patient's roommate immediately called EMS who witnessed the patient with a facial droop, weakness on the right side of the body, and difficulty with speech. The patient states that he never experienced a fall or any trauma. Patient further states that he usually only eats one meal a day at dinnertime and upon arrival, the EMS documented his blood sugar to be 70. At time of the evaluation, the patient reported that his facial droop had resolved and that his right arm strength had also recovered. He however reported ongoing right leg weakness. He denied visual disturbances, numbness, tingling. Also denied chest discomfort, shortness of breath, palpitations, fever, chills, cough. Denied nausea, vomiting, abdominal pain, diarrhea. Of note, the patient was recently admitted to the hospital on 06/19 for expressive aphasia and was discharged the following day after neurology evaluation after his symptoms resolved and were deemed to be likely a TIA. In the emergency room, CT brain was unremarkable with a CT angiogram of head and neck also unremarkable. Chest x-ray revealed small opacities. EKG revealed normal sinus rhythm at 85 bpm. Laboratory evaluation was remarkable for hemoglobin 11.6, platelet 76, creatinine 0.65, glucose 64, AST 82, ALT 89, troponin less than 0.012, CK 44. The case was reportedly discussed with neuro debt management counselor organizational consultant and the patient was deemed not a candidate for TPA. Review of systems: Pertinent positives and negatives as discussed in HPI, a complete review of systems was performed and all other systems are negative. Physical examination: General: non toxic, no distress, appears at stated age, overweight Derm: no unusual rashes/lesions no unusual ecchymoses, warm, dry Head: atraumatic, normocephalic, symmetric Eyes: EOMI, no lid lag, anicteric sclera, pupils equal round reactive to light ENT: Nose and ears atraumatic, no thrush, no pharyngeal erythema Neck: No thyromegaly, no cervical lymphadenopathy, trachea midline, supple Mouth: no lip lesion, mucus membranes moist Cardiovascular: S1S2 reg, no murmur, positive posterior tibial pulse bilateral, no edema, capillary refill less than 2 seconds Lungs: CTA bilateral, no rhonchi, no rales , no accessory muscle use Abdominal: soft, nontender to palpation, no guarding, no appreciable organomegaly, normal bowel sounds Ext: no gross muscle atrophy, muscle strength 5 out of 5 in all extremities e xcept right lower extremity strength 3 out of 5, no contractures Neuro: CN II-XI grossly intact, light touch intact all 4 extremities, finger to nose within normal limits, no pronator drift Psych: Alert, oriented, appropriate affect Assessment/plan CVA versus TIA -Neurology consulted -Neuro checks -Continue with aspirin and Lipitor -Fall precautions -Old therapy consult -Speech and swallow evaluation Pancytopenia -Check anemia panel -Outpatient hematology evaluation upon discharge Abnormal LFTs -Monitor for now Chronic conditions: Hypertension, hyperlipidemia, type II DM -Continue home meds -Lispro insulin sliding scale and blood glucose monitoring -Check A1c DVT prophylaxis -Heparin The patient is admitted with an anticipated greater than 2 midnight stay for evaluation of CVA CODE STATUS: Full Code Discussed with: Patient Anticipated discharge date: 2-[address]: Home Past Medical History Past Medical History: Unable to Obtain, Diabetes Mellitus History of Any Multi-Drug Resistant Organisms: None Reported Past Surgical History: Unable to Obtain Past Anesthesia/Blood Transfusion Reactions: Unable to Obtain Past Psychological History: Unable to Obtain Smoking Status: Current every day smoker Past Alcohol Use History: Occasional Past Drug Use History: None Reported - Past Family History Father Family Medical History: CVA/TIA Family Family Medical History: Unable to Obtain Medications and Allergies Home Medications Medication Instructions Recorded Confirmed Type ALPRAZolam [Xanax] 0.5 mg PO HS PRN 06/18/21 06/22/21 History Albuterol Sulfate [Ventolin HFA] 2 puff INHALATION RT-Q6H PRN 06/18/21 06/22/21 History Atorvastatin Calcium [Lipitor] 20 mg PO DAILY 06/18/21 06/22/21 History Cyclobenzaprine HCl 10 mg PO BID 06/18/21 06/22/21 History HYDROcodone/APAP 7.5-325MG [[place] 1 tab PO DAILY PRN 06/18/21 06/22/21 History 7.5-325] Insulin Glargine,Hum.rec.anlog 25 unit SQ DAILY 06/18/21 06/22/21 History [Lantus Solostar Pen] glipiZIDE XL [Glucotrol XL] 5 mg PO TID 06/18/21 06/22/21 History lisinopriL [Zestril] 5 mg PO DAILY 06/18/21 06/22/21 History metFORMIN HCL [Glucophage] 850 mg PO TID-W/MEALS 06/18/21 06/22/21 History Aspirin [Adult Low Dose Aspirin EC] 81 mg PO DAILY #30 tab 06/19/21 06/22/21 Rx Allergies Allergy/AdvReac Type Severity Reaction Status Date / Time No Known Allergies Allergy Verified 06/22/21 19:47 Physical Exam Vitals: Vital Signs Temp Pulse Resp BP Pulse Ox 06/22/21 21:48 99 18 134/83 98 06/22/21 20:05 94 18 148/82 98 06/22/21 19:50 88 18 143/90 95 06/22/21 19:35 98.1 F 91 18 137/91 95 06/22/21 19:20 98.1 F 55 L 18 93 L Intake and Output 06/22/21 06/22/21 06/23/21 14:59 22:59 06:59 Other: Weight 95.708 kg Results CBC & Chem 7: 06/22/21 19:34 06/22/21 19:34 Labs: Abnormal Lab Results - Last 24 Hours (Table) 06/22/21 06/22/21 06/22/21 Range/Units 19:34 19:34 21:13 WBC 3.4 L (3.8-10.6) k/uL RBC 3.19 L (4.30-5.90) m/uL Hgb 11.6 L (13.0-17.5) gm/dL Hct 35.1 L (39.0-53.0) % MCV 110.3 H (80.0-100.0) fL MCH 36.4 H (25.0-35.0) pg Plt Count 76 L (150-450) k/uL Lymphocytes # 0.4 L (1.0-4.8) k/uL Macrocytosis Marked A Creatinine 0.65 L (0.66-1.25) mg/dL Glucose 64 L (74-99) mg/dL POC Glucose (mg/dL) 48 L (75-99) mg/dL Calcium 8.3 L (8.4-10.2) mg/dL AST 82 H (17-59) U/L ALT 89 H (4-49) U/L Creatine Kinase 44 L (55-170) U/L Total Protein 5.9 L (6.3-8.2) g/dL Albumin 3.3 L (3.5-5.0) g/dL 06/22/21 Range/Units 22:11 WBC (3.8-10.6) k/uL RBC (4.30-5.90) m/uL Hgb (13.0-17.5) gm/dL Hct (39.0-53.0) % MCV (80.0-100.0) fL MCH (25.0-35.0) pg Plt Count (150-450) k/uL Lymphocytes # (1.0-4.8) k/uL Macrocytosis Creatinine (0.66-1.25) mg/dL Glucose (74-99) mg/dL POC Glucose (mg/dL) 177 H (75-99) mg/dL Calcium (8.4-10.2) mg/dL AST (17-59) U/L ALT (4-49) U/L Creatine Kinase (55-170) U/L Total Protein (6.3-8.2) g/dL Albumin (3.5-5.0) g/dL Thrombosis Risk Factor Assmnt - Choose All That Apply Any of the Below Risk Factors Present?: Yes Each Factor Represents 1 point: Abnormal pulmonary function (COPD), Age 41-60 years, Obesity (BMI >25) Each Risk Factor Represents 5 Points: Stroke (< 1 month) Thrombosis Risk Factor Assessment Total Risk Factor Score: 8 Thrombosis Risk Factor Assessment Level: High Risk
[2021-06-23] MEDS: HEPARIN SODIUM,PORCINE/PF 5,000 UNIT/0.5 ML SYRINGE SQ SCH ×2 (00:17→13:29)
[2021-06-23 00:23] LABS: Glucose,Whole Blood 174 mg/dL (75-99)
[2021-06-23 06:09] LABS: Glucose,Whole Blood 77 mg/dL (75-99)
[2021-06-23] MEDS: INSULIN ASPART (NovoLOG) 100 UNIT/ML VIAL SQ SCH ×2 (06:15→11:59)
[2021-06-23 07:55] LABS: HCT 33.3 % (39.0-53.0); HGB 11.2 gm/dL (13.0-17.5); MCH 36.9 pg (25.0-35.0); MCHC 33.5 g/dL (31.0-37.0); MCV 110.2 fL (80.0-100.0); Macrocytosis Marked; Mean Platelet Volume 8.4; RBC 3.02 m/uL (4.30-5.90); RDW 13.7 % (11.5-15.5); WBC 3.5 k/uL (3.8-10.6)
[2021-06-23 08:04] LABS: Platelet Count 82 k/uL (150-450)
[2021-06-23 08:21] LABS: African American GFR (CKD) >90 (>60 ml/min/1.73 sqM); Anion Gap 4 mmol/L; Blood Urea Nitrogen 9 mg/dL (9-20); Calcium 8.3 mg/dL (8.4-10.2); Carbon Dioxide 25 mmol/L (22-30); Chloride 107 mmol/L (98-107); Glucose 75 mg/dL (74-99); Non-African American GFR(CKD) >90 (>60 ml/min/1.73 sqM); Potassium 3.4 mmol/L (3.5-5.1); Sodium 136 mmol/L (137-145)
[2021-06-23] MEDS ORDERED: lisinopriL 5 MG TAB PO SCH (09:00)
[2021-06-23] MEDS ORDERED: THIAMINE 100 MG TAB PO SCH (09:00)
[2021-06-23] MEDS ORDERED: ASPIRIN 325 MG TAB PO SCH (09:00)
[2021-06-23] MEDS ORDERED: ATORVASTATIN 40 MG TAB PO SCH (09:00)
[2021-06-23] MEDS ORDERED: ATORVASTATIN 20 MG TAB PO SCH (09:00)
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
[2021-06-23] MEDS ORDERED: POTASSIUM CHLORIDE ER 20 MEQ TAB.ER PO STA (11:03)
--- NOTE | 2021-06-23 11:32 | P.DS ---
Providers Date of admission: 06/22/21 21:46 Expected date of discharge: 06/23/21 Attending physician: Rich Ayala MD Consults: 06/22/21 21:47 Consult Physician Urgent Consulting Provider: Paul Morfin Consult Reason/Comments: acute right hemiparesis - improved, suspected cvA Do you want consulting provider notified?: Yes Primary care physician: Stated None Hospital Course: Discharge Diagnosis: Symptomatic hypoglycemia recent CVA Pancytopenia due to alcohol abuse Transaminitis improving HTN HLD Diabetes Mellitus Type 2 Hospital Course: Patient is a 61 yo CM with a hx of DM 2 on insulin and oral medications, Alcohol abuse sober X 2 week, and HLD who presented with complaints of right sided weakness. On arrival to his home EMS recommended that he had a blood sugar of 67. In the ER he also had a low blood sugar at 64. He was given dextrose which resolved most of his symptoms immediately. He was admitted for further monitoring. He was seen by neurology. He had recently been seen here and discharged on 06/19 after workup for stroke. At that point in time MRI had showed some lacunar infarcts, echocardiogram and showed an ejection fraction of 60%, no left ventricular thrombus. Repeat head CT here showed no acute process. Repeat CT angiogram head and neck showed no significant abnormality. He was determined stable for discharge home after neurology agreed that these symptoms are mostly secondary to hypoglycemia. We will arrange for him to get a glucometer which she has not been using. I've asked that he follow-up with an draftsperson. He will stop his glipizide 3 times daily and decrease his long-acting insulin to 20 units. He has also been taking this with his once daily meal. I've asked him to take it on a fixed time of 10 AM. He is discharged home in stable condition. Follow-up: Patient already had a appointment scheduled with Dr. Santos on 07/10 at 11 AM and he will keep that appointment, follow-up with his primary care physician, and follow-up with Dr. Quijano for endocrinology. Patient seen and examined at bedside. No chest pain, SOB, nasuea, vomiting, or diarrhea. Symptoms resolved. WE discuasse and he has no glucometer at home. Vital signs reviewed and stable. General: non toxic, no distress, appears at stated age Derm: warm, dry Head: atraumatic, normocephalic, symmetric Eyes: EOMI, no lid lag, anicteric sclera Mouth: no lip lesion, mucus membranes moist Cardiovascular: S1S2 reg, no murmur, positive posterior tibial pulse bilateral, Lungs: CTA bilateral, no rhonchi, no rales , no accessory muscle use Abdominal: soft, nontender to palpation, no guarding, no appreciable organomegaly Ext: no gross muscle atrophy, no edema, no contractures Neuro: CN II-XI grossly intact, no focal neuro deficits Psych: Alert, oriented, appropriate affect A total of 45 minutes of time were spent preparing this complex discharge summary . Patient Condition at Discharge: Stable Plan - Discharge Summary New Discharge Prescriptions: New Aspirin 325 mg PO DAILY #30 tab Albuterol Nebulized [Ventolin Nebulized] 2.5 mg INHALATION RT-Q6H PRN ml PRN Reason: Shortness Of Breath Atorvastatin Calcium [Lipitor] 40 mg PO DAILY #30 tablet Continue lisinopriL [Zestril] 5 mg PO DAILY HYDROcodone/APAP 7.5-325MG [[place] 7.5-325] 1 tab PO DAILY PRN PRN Reason: Pain metFORMIN HCL [Glucophage] 850 mg PO TID-W/MEALS ALPRAZolam [Xanax] 0.5 mg PO HS PRN PRN Reason: sleep Changed Insulin Glargine,Hum.rec.anlog [Lantus Solostar Pen] 22 unit SQ DAILY #0 Discontinued Albuterol Sulfate [Ventolin HFA] 2 puff INHALATION RT-Q6H PRN PRN Reason: Shortness Of Breath glipiZIDE XL [Glucotrol XL] 5 mg PO TID Atorvastatin Calcium [Lipitor] 20 mg PO DAILY Aspirin [Adult Low Dose Aspirin EC] 81 mg PO DAILY #30 tab Cyclobenzaprine HCl 10 mg PO BID Discharge Medication List ALPRAZolam [Xanax] 0.5 mg PO HS PRN 06/18/21 [History] HYDROcodone/APAP 7.5-325MG [[place] 7.5-325] 1 tab PO DAILY PRN 06/18/21 [History] lisinopriL [Zestril] 5 mg PO DAILY 06/18/21 [History] metFORMIN HCL [Glucophage] 850 mg PO TID-W/MEALS 06/18/21 [History] Albuterol Nebulized [Ventolin Nebulized] 2.5 mg INHALATION RT-Q6H PRN ml 06/23/21 [Rx] Aspirin 325 mg PO DAILY #30 tab 06/23/21 [Rx] Atorvastatin Calcium [Lipitor] 40 mg PO DAILY #30 tablet 06/23/21 [Rx] Insulin Glargine,Hum.rec.anlog [Lantus Solostar Pen] 22 unit SQ DAILY #0 06/23/21 [Rx] Follow up Appointment(s)/Referral(s): Jasmine Claudio MD [REFERRING] - 07/10/21 (at 11 am) None,Stated [Primary Care Provider] - 1-2 days Yisel Quijano MD [STAFF PHYSICIAN] - 1 Week Activity/Diet/Wound Care/Special Instructions: Patient needs a glucometer at discharge to manage diabetes. Patient has insulin dependent diabetes and requires glucose testing three times per day Activity: as tolerated Diet: heart health, carb consistent Special Instructions: check blood sugars three times daily and make a log for your doctor Discharge Disposition: HOME SELF-CARE
[2021-06-23 11:58] LABS: Glucose,Whole Blood 112 mg/dL (75-99)
[2021-06-23 12:45] VITALS: BP 124/80; PULSE 100; TEMP 98
[2021-06-23 14:45] LABS: Chol/HDL Ratio 1.78 Ratio; LDL Cholesterol,Calculated 29.4 mg/dL (0.0-131.0); VLDL Calculation 11.48 mg/dL (5.00-40.00)
[2021-06-24] MEDS ORDERED: ATORVASTATIN 20 MG TAB PO SCH (09:00)
== END 2021-06-23 14:43 | disposition home or self-care (01) | DRG 638 ==
LOC: EC 19:15 → 3SCARD 21:46
PROVIDERS: ADMIT Internal Medicine; ATTEND Internal Medicine
DX: E11.649 Type 2 diabetes mellitus with hypoglycemia without coma (principal); D61.818 Other pancytopenia; G81.91 Hemiplegia, unspecified affecting right dominant side; R47.01 Aphasia; E78.5 Hyperlipidemia, unspecified; F10.10 Alcohol abuse, uncomplicated; I10 Essential (primary) hypertension; R29.810 Facial weakness; R47.81 Slurred speech; F17.200 Nicotine dependence, unspecified, uncomplicated; Z20.822 Contact with and (suspected) exposure to COVID-19; Z79.4 Long term (current) use of insulin; Z79.82 Long term (current) use of aspirin; Z79.84 Long term (current) use of oral hypoglycemic drugs; Z79.899 Other long term (current) drug therapy; Z86.73 Personal history of transient ischemic attack (TIA), and cerebral infarction without residual deficits
CPT/HCPCS: 36415; 70450; 70496; 70498; 71046; 80048; 80053; 80061; 82550; 82607; 82728; 82747; 83036; 84484; 85025; 85027; 85610; 85730; 87635; 93005; 96374; 99291

== ENCOUNTER 2022-04-04 11:28 | Emergency (ER) | payer MEDICARE ==
--- NOTE | 2022-04-04 12:38 | XR ---
EXAMINATION TYPE: XR foot complete RT DATE OF EXAM: 04/04/2022 CLINICAL HISTORY: pain TECHNIQUE: Frontal, lateral and oblique images of the right foot are obtained. COMPARISON: None. FINDINGS: There is no acute fracture/dislocation evident. The joint spaces appear within normal souza its. Soft tissue swelling noted. Dorsal calcaneal spurring seen. IMPRESSION: There is no acute fracture or dislocation. ICD 10 NO FRACTURE, INITIAL EVALUATION
[2022-04-04] MEDS ORDERED: MORPHINE SULFATE 2 MG/ML SYRINGE IM STA (12:52)
[2022-04-04] MEDS ORDERED: MORPHINE SULFATE 2 MG/ML SYRINGE IVP STA (13:00)
--- NOTE | 2022-04-04 13:44 | US ---
EXAMINATION TYPE: US venous doppler duplex LE RT DATE OF EXAM: 04/04/2022 1:25 PM COMPARISON: NONE CLINICAL HISTORY: Right foot pain and swelling, spreading proximally. Right foot pain and discolorati on x 1 week after a large object fell on it. SIDE PERFORMED: Right TECHNIQUE: The lower extremity deep venous system is examined utilizing real time linear array sonog sara with graded compression, doppler sonography and color-flow sonography. VESSELS IMAGED: Common Femoral Vein Deep Femoral Vein Greater Saphenous Vein * Femoral Vein Popliteal Vein Small Saphenous Vein * Proximal Calf Veins (* superficial vessels) Right Leg: Negative for DVT IMPRESSION: No evidence of DVT
[2022-04-04 14:13] LABS: ALT 23 U/L (4-49); AST 43 U/L (17-59); African American GFR (CKD) >90 (>60 ml/min/1.73 sqM); Albumin 4.3 g/dL (3.5-5.0); Alkaline Phosphatase 119 U/L (38-126); Anion Gap 5 mmol/L; Blood Urea Nitrogen 7 mg/dL (9-20); C Reactive Protein 0.6 mg/dL (<1.0); Calcium 8.8 mg/dL (8.4-10.2); Carbon Dioxide 26 mmol/L (22-30); Chloride 98 mmol/L (98-107); Glucose 148 mg/dL (74-99); Non-African American GFR(CKD) >90 (>60 ml/min/1.73 sqM); Potassium 5.5 mmol/L (3.5-5.1); Sodium 129 mmol/L (137-145); Total Bilirubin 0.8 mg/dL (0.2-1.3); Total Protein 7.2 g/dL (6.3-8.2)
[2022-04-04 14:25] LABS: HCT 32.4 % (39.0-53.0); HGB 11.2 gm/dL (13.0-17.5); MCH 38.6 pg (25.0-35.0); MCHC 34.5 g/dL (31.0-37.0); MCV 111.7 fL (80.0-100.0); Macrocytosis Marked; Mean Platelet Volume 7.7; Platelet Count 143 k/uL (150-450); RDW 15.3 % (11.5-15.5); WBC 4.8 k/uL (3.8-10.6)
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
[2022-04-04 15:28] LABS: Erythrocyte Sedimentation Rate 26 mm/hr (0-15)
[2022-04-04 15:44] VITALS: BP 174/92; PULSE 80; RESP 20; TEMP 98
[2022-04-04 16:32] LABS: Band Neutrophils % 1 %; Basophils # (M) 0.05 k/uL (0-0.2); Lymphocytes # (M) 0.48 k/uL (1.0-4.8); Monocytes # (M) 0.29 k/uL (0-1.0); Myelocytes # (M) 0.05 k/uL (0); Myelocytes % 1 %; Neutrophils % (M) 81 %; Nucleated Red Blood Cells 0 /100 WBC (0-0); Total Cells Counted 200
== END 2022-04-04 15:25 | disposition home or self-care (01) ==
LOC: EC 11:28
DX: S97.81XA Crushing injury of right foot, initial encounter (principal); E11.9 Type 2 diabetes mellitus without complications; F17.200 Nicotine dependence, unspecified, uncomplicated; Z79.84 Long term (current) use of oral hypoglycemic drugs; W20.8XXA Other cause of strike by thrown, projected or falling object, initial encounter
CPT/HCPCS: 36415; 80053; 85652; 85025; 86140; 73630; 93971; 99284; 96374; J2270

== ENCOUNTER 2023-01-01 12:26 | Emergency (ER) | payer MEDICARE ==
[2023-01-01 12:45] VITALS: BP 98/60
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
--- NOTE | 2023-01-01 13:27 | XR ---
EXAMINATION TYPE: XR ankle complete RT DATE OF EXAM: 01/01/2023 1:18 PM INDICATION: Patient age:Male; 62 years old; Reason for study: trauma; COMPARISON: None TECHNIQUE: The right ankle is imaged in frontal, lateral and oblique projections. FINDINGS: Surgical clips along the medial aspect of the mid right leg. Calcaneal Achilles enthesophyte is prese nt. Mild degeneration changes at the tibiotalar joint. There is no evidence of acute osseous patholog y. The joint spaces are well-preserved without evidence of subluxation or dislocation. Kager's fat p ad is intact. No radiopaque foreign bodies are identified. Mild soft tissue swelling around the ankle . IMPRESSION: 1. No evidence of acute fracture. 2. Subcutaneous swelling around the ankle likely secondary to underlying soft tissue injury.
[2023-01-01] MEDS ORDERED: ACET/COD 300 MG/30 MG STARTER PACK 6 TAB BTL PO STA (13:38)
[2023-01-01 14:31] VITALS: PULSE 92; RESP 16; TEMP 98.4
== END 2023-01-01 13:44 | disposition home or self-care (01) ==
LOC: EC 12:26
DX: S93.401A Sprain of unspecified ligament of right ankle, initial encounter (principal); E11.9 Type 2 diabetes mellitus without complications; F17.200 Nicotine dependence, unspecified, uncomplicated; Z79.899 Other long term (current) drug therapy; X50.1XXA Overexertion from prolonged static or awkward postures, initial encounter
CPT/HCPCS: 99283

== ENCOUNTER 2023-02-03 20:47 | Inpatient (IN) | payer MEDICARE ==
[2023-02-03 21:02] LABS: Glucose,Whole Blood 172 mg/dL (70-110)
[2023-02-03] MEDS ORDERED: SODIUM CHLORIDE 0.9% 1,000 ML IV STA (21:21)
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
[2023-02-03] MEDS ORDERED: FAMOTIDINE 20 MG/2 ML VIAL IV STA (21:33)
--- NOTE | 2023-02-03 21:45 | XR ---
EXAMINATION TYPE: XR chest 2V DATE OF EXAM: 02/03/2023 COMPARISON: 06/22/21 HISTORY: Shortness of breath TECHNIQUE: Frontal and lateral views of the chest are obtained. FINDINGS: Scattered senescent parenchymal changes noted. Hyperinflation compatible with COPD. No evidence for infiltrate. No evidence for atelectasis. Heart size is stable. Mediastinal structures are stable and grossly unremarkable. No evidence for hilar prominence. Degenerative changes dorsal spine. IMPRESSION: 1. No evidence for acute pulmonary disease.
--- NOTE | 2023-02-03 21:47 | XR ---
EXAMINATION TYPE: XR KUB DATE OF EXAM: 02/03/2023 COMPARISON: NONE HISTORY: Pain TECHNIQUE: Single supine KUB image of the abdomen is obtained FINDINGS: Small bowel demonstrates no evidence for dilatation or air fluid levels. Gas and fecal material is seen in non-distended colon. No convincing evidence for pneumoperitoneum. No unusual calcifications. The lung bases are clear. The osseous structures are intact. IMPRESSION: 1. Overall nonobstructive bowel gas pattern.
[2023-02-03 21:48] LABS: Anisocytosis Slight; Basophils % (A) 1 %; Eosinophils % (A) 1 %; HCT 30.2 % (39.0-53.0); HGB 10.4 gm/dL (13.0-17.5); Lymphocytes # (A) 0.6 k/uL (1.0-4.8); Lymphocytes % (A) 16 %; MCH 38.5 pg (25.0-35.0); MCHC 34.6 g/dL (31.0-37.0); Macrocytosis Marked; Mean Platelet Volume 8.6; Monocytes # (A) 0.2 k/uL (0-1.0); Monocytes % (A) 4 %; Neutrophils % (A) 76 %; RBC 2.71 m/uL (4.30-5.90); RDW 16.4 % (11.5-15.5)
[2023-02-03 21:52] LABS: MCV 111.4 fL (80.0-100.0)
[2023-02-03 22:01] LABS: INR 1.1 (<1.2); Partial Thromboplastin Time 25.3 sec (22.0-30.0); Prothrombin Time 11.7 sec (9.0-12.0)
[2023-02-03 22:07] LABS: Platelet Count 88 k/uL (150-450)
[2023-02-03 22:40] LABS: ALT 56 U/L (4-49); AST 78 U/L (17-59); African American GFR (CKD) >90 (>60 ml/min/1.73 sqM); Albumin 3.4 g/dL (3.5-5.0); Alcohol <10 mg/dL; Alkaline Phosphatase 147 U/L (38-126); Anion Gap 11 mmol/L; Blood Urea Nitrogen 11 mg/dL (9-20); Carbon Dioxide 21 mmol/L (22-30); Chloride 93 mmol/L (98-107); Glucose 148 mg/dL (74-99); Magnesium 1.9 mg/dL (1.6-2.3); Non-African American GFR(CKD) >90 (>60 ml/min/1.73 sqM); Potassium 4.5 mmol/L (3.5-5.1); Sodium 125 mmol/L (137-145); Total Bilirubin 1.2 mg/dL (0.2-1.3); Total Protein 6.2 g/dL (6.3-8.2)
[2023-02-04] MEDS ORDERED: NALOXONE 0.4 MG/ML 1 ML VIAL IV PRN (00:35)
[2023-02-04] MEDS ORDERED: ALBUTEROL NEBULIZED 2.5 MG/3 ML INHALATION PRN (00:37)
[2023-02-04] MEDS ORDERED: HYDROcodone/APAP 7.5-325MG 1 EACH TAB PO PRN (00:37)
[2023-02-04] MEDS: SODIUM CHLORIDE 0.9% 1,000 ML IV SCH ×3 (00:46→16:55)
[2023-02-04 00:58] LABS: Appearance,Urine Clear (Clear); Bilirubin,Urine Negative (Negative); Blood,Urine Negative (Negative); Color,Urine Light Yellow; Glucose,Urine (UA) Negative (Negative); Ketones,Urine Negative (Negative); Leukocyte Esterase,Urine Negative (Negative); Nitrite,Urine Negative (Negative); Protein,Urine Negative (Negative); Specific Gravity,Urine 1.008 (1.001-1.035); Urobilinogen,Urine <2.0 mg/dL (<2.0)
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
--- NOTE | 2023-02-04 07:20 | CT ---
EXAM: CT Chest With Intravenous Contrast CLINICAL HISTORY: ITS.REASON CT Reason: r/o underlying malignancy TECHNIQUE: Axial computed tomography images of the chest with intravenous contrast. CTDI is 11.285 mGy and DLP is 857.6 mGy-cm. This CT exam was performed using one or more of the following dose reduction techniques: automated exposure control, adjustment of the mA and/or kV according to patient size, and/or use of iterative reconstruction technique. COMPARISON: No relevant prior studies available. FINDINGS: Lungs: No acute findings. No mass. No consolidation. Pleural space: There are bilateral calcified pleural plaques and pleural thickening, greater on right. There is some mild scarring in the periphery in the right lung. No pneumothorax. No significant effusion. Heart: Mild coronary artery calcification. No significant pericardial effusion. Bones/joints: Unremarkable. No acute fracture. No dislocation. Soft tissues: Unremarkable. Vasculature: See above. Lymph nodes: Unremarkable. No enlarged lymph nodes. IMPRESSION: No acute findings in the chest. No evidence for malignancy. EXAM: CT Abdomen and Pelvis With Intravenous Contrast CLINICAL HISTORY: ITS.REASON CT Reason: r/o underlying malignancy TECHNIQUE: Axial computed tomography images of the abdomen and pelvis with intravenous contrast. CTDI is 12.3 mGy and DLP is 505.3 mGy-cm. This CT exam was performed using one or more of the following dose reduction techniques: automated exposure control, adjustment of the mA and/or kV according to patient size, and/or use of iterative reconstruction technique. COMPARISON: No relevant prior studies available. FINDINGS: ABDOMEN: Liver: No acute findings. No mass. Gallbladder and bile ducts: Unremarkable. No calcified stones. No ductal dilation. Pancreas: Unremarkable. No mass. No ductal dilation. Spleen: Unremarkable. No splenomegaly. Adrenals: 1.7 cm nodule in the right adrenal compatible with an adenoma. Kidneys and ureters: Unremarkable. No solid mass. No hydronephrosis. Stomach and bowel: Unremarkable. No obstruction. No mucosal thickening. PELVIS: Appendix: No findings to suggest acute appendicitis. Bladder: Unremarkable. No mass. Reproductive: Unremarkable as visualized. ABDOMEN and PELVIS: Intraperitoneal space: Unremarkable. No free air. No significant fluid collection. Bones/joints: No acute fracture. No dislocation. Soft tissues: Small ventral abdominal wall and umbilical hernias containing fat. Small left inguinal hernia containing fat. Vasculature: Unremarkable. No abdominal aortic aneurysm. Lymph nodes: Unremarkable. No enlarged lymph nodes. IMPRESSION: No acute findings in the abdomen or pelvis. No evidence for malignancy.
[2023-02-04] MEDS ORDERED: metFORMIN 850 MG TAB PO PRN (07:30)
[2023-02-04] MEDS: INSULIN ASPART (NovoLOG) 100 UNIT/ML VIAL SQ SCH ×4 (07:45→22:51)
[2023-02-04 07:47] LABS: Glucose,Whole Blood 113 mg/dL (70-110)
[2023-02-04 07:56] LABS: ALT 43 U/L (4-49); AST 46 U/L (17-59); African American GFR (CKD) >90 (>60 ml/min/1.73 sqM); Albumin 2.8 g/dL (3.5-5.0); Albumin/Globulin Ratio 1.1; Alkaline Phosphatase 120 U/L (38-126); Anion Gap 3 mmol/L; Blood Urea Nitrogen 10 mg/dL (9-20); Calcium 7.7 mg/dL (8.4-10.2); Carbon Dioxide 28 mmol/L (22-30); Chloride 99 mmol/L (98-107); Globulin 2.6 g/dL; Glucose 109 mg/dL (74-99); Non-African American GFR(CKD) >90 (>60 ml/min/1.73 sqM); Potassium 4.7 mmol/L (3.5-5.1); Sodium 130 mmol/L (137-145); Total Protein 5.4 g/dL (6.3-8.2)
[2023-02-04 08:12] LABS: Anisocytosis Slight; HCT 27.1 % (39.0-53.0); HGB 9.2 gm/dL (13.0-17.5); MCH 38.3 pg (25.0-35.0); MCV 112.5 fL (80.0-100.0); Macrocytosis Marked; RBC 2.41 m/uL (4.30-5.90); RDW 16.3 % (11.5-15.5); WBC 3.1 k/uL (3.8-10.6)
[2023-02-04] MEDS: ATORVASTATIN 20 MG TAB PO SCH (08:45)
[2023-02-04] MEDS: lisinopriL 5 MG TAB PO SCH (08:45)
[2023-02-04] MEDS: CHOLECALCIFEROL 25 MCG (1000 IU) TABLET PO SCH (08:45)
[2023-02-04] MEDS ORDERED: INSULIN DETEMIR (LEVEMIR) 100 UNIT/ML SYR SQ PRN (09:00)
[2023-02-04] MEDS ORDERED: CYCLOBENZAPRINE 10 MG TAB PO PRN (09:00)
[2023-02-04 09:44] LABS: Platelet Count 60 k/uL (150-450)
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
[2023-02-04] MEDS: PANTOPRAZOLE 40 MG/10 ML VIAL IVP SCH (11:35)
[2023-02-04 11:46] LABS: Glucose,Whole Blood 125 mg/dL (70-110)
[2023-02-04 13:45] VITALS: BMI 25.7
[2023-02-04] MEDS ORDERED: THIAMINE 100 MG/ML 2 ML VIAL IM STA (14:14)
[2023-02-04] MEDS ORDERED: LORazepam 2 MG/ML INJ IV PRN ×2 (14:14)
[2023-02-04] MEDS ORDERED: PEG 3350 (236 GM/BTL) + LYTES 4,000 ML BOTTLE PO ONE (15:00)
[2023-02-04 16:16] LABS: Glucose,Whole Blood 133 mg/dL (70-110)
[2023-02-04] MEDS: ALPRAZolam 0.5 MG TAB PO SCH (22:54)
[2023-02-04] MEDS: MIRTAZAPINE 15 MG TAB PO SCH (22:54)
[2023-02-05] MEDS: SODIUM CHLORIDE 0.9% 1,000 ML IV SCH ×3 (00:15→17:10)
[2023-02-05 05:42] LABS: Basophils % (A) 0 %; Eosinophils # (A) 0.1 k/uL (0-0.7); Eosinophils % (A) 3 %; HCT 26.9 % (39.0-53.0); HGB 9.1 gm/dL (13.0-17.5); Lymphocytes # (A) 0.9 k/uL (1.0-4.8); Lymphocytes % (A) 27 %; MCH 39.2 pg (25.0-35.0); MCHC 33.9 g/dL (31.0-37.0); MCV 115.7 fL (80.0-100.0); Mean Platelet Volume 8.4; Monocytes # (A) 0.2 k/uL (0-1.0); Monocytes % (A) 5 %; Neutrophils % (A) 64 %; RBC 2.32 m/uL (4.30-5.90); RDW 15.9 % (11.5-15.5); WBC 3.1 k/uL (3.8-10.6)
[2023-02-05 05:52] LABS: ALT 35 U/L (4-49); AST 35 U/L (17-59); African American GFR (CKD) >90 (>60 ml/min/1.73 sqM); Albumin 2.8 g/dL (3.5-5.0); Albumin/Globulin Ratio 1.1; Alkaline Phosphatase 108 U/L (38-126); Anion Gap 9 mmol/L; Blood Urea Nitrogen 8 mg/dL (9-20); Calcium 7.3 mg/dL (8.4-10.2); Carbon Dioxide 25 mmol/L (22-30); Chloride 101 mmol/L (98-107); Globulin 2.5 g/dL; Glucose 85 mg/dL (74-99); Non-African American GFR(CKD) >90 (>60 ml/min/1.73 sqM); Potassium 3.8 mmol/L (3.5-5.1); Sodium 135 mmol/L (137-145); Total Bilirubin 0.9 mg/dL (0.2-1.3); Total Protein 5.3 g/dL (6.3-8.2)
[2023-02-05 06:20] LABS: Glucose,Whole Blood 97 mg/dL (70-110)
[2023-02-05 06:22] LABS: Macrocytosis Marked; Platelet Count 65 k/uL (150-450)
[2023-02-05] MEDS: INSULIN ASPART (NovoLOG) 100 UNIT/ML VIAL SQ SCH ×4 (06:30→20:45)
[2023-02-05] MEDS: THIAMINE 100 MG TAB PO SCH (07:59)
[2023-02-05] MEDS: ATORVASTATIN 20 MG TAB PO SCH (07:59)
[2023-02-05] MEDS: lisinopriL 5 MG TAB PO SCH (07:59)
[2023-02-05] MEDS: CHOLECALCIFEROL 25 MCG (1000 IU) TABLET PO SCH (07:59)
[2023-02-05] MEDS: PANTOPRAZOLE 40 MG/10 ML VIAL IVP SCH (08:18)
--- NOTE | 2023-02-05 10:49 | P.PN ---
Subjective Progress Note Date: 02/05/23 Patient has no complaints today. Resting well, awaiting his EGD Gen: awake, alert HEENT: normocephalic, atraumatic, good hearing acuity, moist mucous membranes Resp: good air exchange, breathing comfortably with no accessory muscle use CVS: good distal perfusion x 4, GI: soft, NTTP, ND : no SPT, no CVAT, delatorre catheter not present MSK: no pitting edema, no clubbing Neuro: non-focal, moving all extremities Psych: cooperative, euthymic mood Hospital course: The patient is a 63-year-old male with a PMH of type II DM, hypertension, hyperlipidemia, anxiety, and COPD who presents to the emergency room with complaints of generalized weakness and weight loss. He underwent an extensive evaluation in the emergency room. Laboratory evaluation was remarkable for macrocytosis with MCV 111.4, hemoglobin 10.4, and platelet count 88. Sodium was 125, chloride 93, CO2 21, lactic acid 2.7, glucose 148, AST 78, ALT 56, alk phos 1.7.Chest x-ray was unremarkable. Abdominal KUB film was also unremarkable. EKG revealed sinus rhythm at [address]/T-wave changes noted as reviewed by me. Laboratory evaluation was remarkable for macrocytosis with MCV 111.4, hemoglobin 10.4, and platelet count 88. Sodium was 125, chloride 93, CO2 21, lactic acid 2.7, glucose 148, AST 78, ALT 56, alk phos 1.7. ED documentation reviewed and case discussed with ED provider. Seen by gastroenterology and recommended for EGD. Assessment: Failure to thrive, rule out underlying malignancy in light of significant weight loss Macrocytic anemia Black tarry stools, fecal occult negative in the emergency room Alcohol abuse Hypochloremic hyponatremia, likely due to poor oral intake Lactic acidosis, likely due to dehydration Pancytopenia Plan: Patient is afebrile, 127/81, heart rate 67, 90% on room air CBC shows pancytopenia with a white blood cell count 3.1, hemoglobin of 9.1, platelet count 65 Basic metabolic panel shows mild hyponatremia to 135 Liver function tests showed low total protein of 5.3, albumin of 2.8 Ordered CBC, basic metabolic panel, magnesium for tomorrow B12 level was [address] chest, abdomen, pelvis to rule out underlying malignancy was negative for occult malignancy GI note reviewed, plan is to proceed EGD today Plan is to proceed to EGD/Colonoscopy today PT consult is pending Continue IV fluids with normal saline 130 mL per hour DVT prophylaxis: IPCDs CODE STATUS: Full Code Anticipated discharge place: Home Objective - Vital Signs Vital signs: Vital Signs Temp 97.9 F 02/05/23 06:40 Pulse 67 02/05/23 06:40 Resp 18 02/05/23 06:40 BP 127/81 02/05/23 06:40 Pulse Ox 90 L 02/05/23 06:40 FiO2 Intake & Output 02/04/23 02/05/23 02/05/23 18:59 06:59 18:59 Intake Total 1200 Output Total 400 Balance -400 1200 Weight 90.718 kg Intake: Intake, IV Titration 1200 Amount Sodium Chloride 0.9% 1, 1200 000 ml @ 130 mls/hr IV . [id number] [id number] Rx#:[id number] Oral 0 Output: Urine 400 Other: Voiding Method Toilet # Voids 1 1 # Bowel Movements 1 - Labs CBC & Chem 7: 02/05/23 05:03 02/05/23 05:03 Labs: Abnormal Lab Results - Last 24 Hours (Table) 02/04/23 02/04/23 02/05/23 Range/Units 11:45 16:14 05:03 WBC 3.1 L (3.8-10.6) k/uL RBC 2.32 L (4.30-5.90) m/uL Hgb 9.1 L (13.0-17.5) gm/dL Hct 26.9 L (39.0-53.0) % MCV 115.7 H (80.0-100.0) fL MCH 39.2 H (25.0-35.0) pg RDW 15.9 H (11.5-15.5) % Plt Count 65 L (150-450) k/uL Lymphocytes # 0.9 L (1.0-4.8) k/uL Macrocytosis Marked A Sodium (137-145) mmol/L BUN (9-20) mg/dL POC Glucose (mg/dL) 125 H 133 H (70-110) mg/dL Calcium (8.4-10.2) mg/dL Total Protein (6.3-8.2) g/dL Albumin (3.5-5.0) g/dL 02/05/23 Range/Units 05:03 WBC (3.8-10.6) k/uL RBC (4.30-5.90) m/uL Hgb (13.0-17.5) gm/dL Hct (39.0-53.0) % MCV (80.0-100.0) fL MCH (25.0-35.0) pg RDW (11.5-15.5) % Plt Count (150-450) k/uL Lymphocytes # (1.0-4.8) k/uL Macrocytosis Sodium 135 L (137-145) mmol/L BUN 8 L (9-20) mg/dL POC Glucose (mg/dL) (70-110) mg/dL Calcium 7.3 L (8.4-10.2) mg/dL Total Protein 5.3 L (6.3-8.2) g/dL Albumin 2.8 L (3.5-5.0) g/dL
[2023-02-05 11:16] LABS: Glucose,Whole Blood 86 mg/dL (70-110)
[2023-02-05 12:34] LABS: Glucose,Whole Blood 115 mg/dL (70-110)
[2023-02-05 12:35] LABS: Glucose,Whole Blood 122 mg/dL (70-110)
[2023-02-05] MEDS ORDERED: LIDOCAINE 2% INJ 20 MG/ML (2 ML VIAL) ONE (12:53)
[2023-02-05] MEDS ORDERED: PROPOFOL 10 MG/ML 20 ML VIAL IV ONE (12:53)
[2023-02-05] MEDS ORDERED: IV FLUID CONTINUATION 900 ML IV ONE ×2 (12:58)
--- NOTE | 2023-02-05 13:23 | P.PCN ---
Date of Procedure: 02/05/23 Procedure(s) Performed: Brief history: Patient is a pleasant 63-year-old white male admitted hospital with dark colored stools for the last 2 weeks' duration and anemia with a hemoglobin of 9 g/dL. He scheduled for an upper endoscopy as well as colonoscopy to evaluate further . Procedure performed: Esophagogastroduodenoscopy with biopsy Colonoscopy Preoperative diagnosis: Black tarry stools and symptomatic anemia Anesthesia: [facility] [place] Procedure: After informed consent was obtained from the patient was brought into the endoscopy unit and IV sedation was administered by anesthesia under continuous monitoring. Initially upper endoscopy was done. The Olympus GF 160 video endoscope was inserted inserted into the mouth and esophagus intubated without any difficulty and was gradually advanced into the stomach and duodenum and carefully examined. The bulb and second part of the duodenum appeared normal. The scope was then withdrawn into the stomach adequately insufflated with air and upon careful examination the antrum and body, had diffuse gastritis and biopsies were done from this area. Mucosa of the cardia and fundus appeared normal. The scope was then withdrawn into the esophagus. The GE junction was located at 40 cm to the incisors. There was a long segment of Billings's esophagus extending from 36-40 cm from the incisors and multiple biopsies were done from this area. No ulcerations or nodules noted. Rest of the esophagus appeared normal. Patient tolerated the procedure well. At this time the patient continued to remain sedation. Initial digital rectal examination was normal. Olympus CF 160 video colonoscope was then inserted into the rectum and gradually advanced to the cecum without any difficulty. Careful examination was performed as the scope was gradually being withdrawn. The prep was excellent. The cecum, ascending colon, transverse colon, descending colon, sigmoid colon and rectum appeared normal. Retroflexion was performed in the rectum and no lesions were noted. Patient tolerated the procedure well. Impression: 1. Upper endoscopy revealed diffuse gastritis and long segment Billings's esophagus status post multiple biopsies 2. Colonoscopy was within normal limits with no evidence of colorectal neoplasia Recommendations: Findings of this examination were discussed with the patient. He was advised to follow with the biopsy results. Continue with the Protonix 40 mg daily and he was briefly educated about antireflux measures. Recommend repeat colonoscopy in 10 years.
[2023-02-05 13:49] VITALS: RESP 16
[2023-02-05 16:18] LABS: Glucose,Whole Blood 89 mg/dL (70-110)
[2023-02-05 20:32] LABS: Glucose,Whole Blood 78 mg/dL (70-110)
[2023-02-05] MEDS: MIRTAZAPINE 15 MG TAB PO SCH (20:36)
[2023-02-05] MEDS: ALPRAZolam 0.5 MG TAB PO SCH (20:36)
[2023-02-05 21:35] LABS: Glucose,Whole Blood 107 mg/dL (70-110)
[2023-02-06] MEDS: SODIUM CHLORIDE 0.9% 1,000 ML IV SCH ×2 (00:18→09:36)
[2023-02-06 06:00] LABS: Glucose,Whole Blood 85 mg/dL (70-110)
[2023-02-06] MEDS: INSULIN ASPART (NovoLOG) 100 UNIT/ML VIAL SQ SCH ×2 (06:05→11:37)
[2023-02-06 07:33] VITALS: BP 134/79; PULSE 67; TEMP 98.1
[2023-02-06] MEDS: ATORVASTATIN 20 MG TAB PO SCH (09:35)
[2023-02-06] MEDS: CHOLECALCIFEROL 25 MCG (1000 IU) TABLET PO SCH (09:35)
[2023-02-06] MEDS: lisinopriL 5 MG TAB PO SCH (09:35)
[2023-02-06] MEDS: THIAMINE 100 MG TAB PO SCH (09:35)
[2023-02-06] MEDS: PANTOPRAZOLE 40 MG/10 ML VIAL IVP SCH (09:36)
[2023-02-06 10:10] LABS: Basophils # (A) 0.01 X 10*3/uL (0.00-0.10); Basophils % (A) 0.4 %; Eosinophils # (A) 0.04 X 10*3/uL (0.04-0.35); Eosinophils % (A) 1.7 %; HCT 22.9 % (39.6-50.0); HGB 7.6 g/dL (13.0-17.0); Immature Grans, Automated 0.9 %; Immature Platelet Fraction 1.8 % (1.1-6.1); Lymphocytes # (A) 0.55 X 10*3/uL (0.90-5.00); Lymphocytes % (A) 23.9 %; MCHC 33.2 g/dL (32.0-37.0); MCV 117.4 fL (80.0-97.0); Mean Platelet Volume 9.4 fL (9.5-12.2); Monocytes # (A) 0.12 X 10*3/uL (0.20-1.00); Monocytes % (A) 5.2 %; NRBC Per 100 WBC 0 /100 WBCS (0.0-0.0); Neutrophils # (A) 1.56 X 10*3/uL (1.80-7.70); Neutrophils % (A) 67.9 %; Platelet Count 59 X 10*3/uL (140-440); RBC 1.95 X 10*6/uL (4.40-5.60); RDW 15.1 % (11.5-14.5)
--- NOTE | 2023-02-06 10:37 | P.DS ---
Providers Date of admission: 02/04/23 00:36 Expected date of discharge: 02/06/23 Attending physician: Rich Ayala MD Consults: 02/04/23 03:53 Consult Physician Urgent Consulting Provider: Leigh Ann Lynch Consult Reason/Comments: GIB Do you want consulting provider notified?: Yes Primary care physician: Physician Nonstaff Hospital Course: Assessment: Failure to thrive, rule out underlying malignancy in light of significant weight loss Macrocytic anemia Black tarry stools, fecal occult negative in the emergency room Alcohol abuse Hypochloremic hyponatremia, likely due to poor oral intake Lactic acidosis, likely due to dehydration Pancytopenia Hospital course: The patient is a 63-year-old male with a PMH of type II DM, hypertension, hyperlipidemia, anxiety, and COPD who presents to the emergency room with complaints of generalized weakness and weight loss. He underwent an extensive evaluation in the emergency room. Laboratory evaluation was remarkable for macrocytosis with MCV 111.4, hemoglobin 10.4, and platelet count 88. Sodium was 125, chloride 93, CO2 21, lactic acid 2.7, glucose 148, AST 78, ALT 56, alk phos 1.7.Chest x-ray was unremarkable. Abdominal KUB film was also unremarkable. EKG revealed sinus rhythm at [address]/T-wave changes noted as reviewed by me. Laboratory evaluation was remarkable for macrocytosis with MCV 111.4, hemoglobin 10.4, and platelet count 88. Sodium was 125, chloride 93, CO2 21, lactic acid 2.7, glucose 148, AST 78, ALT 56, alk phos 1.7. ED documentation reviewed and case discussed with ED provider. Seen by gastroenterology and recommended for EGD/Breaks. Underwent EGD/Breaks on 02/05, and was found to have barretts esophagus and gastritis, biopsies were taken and pending. Colonoscopy was clear. Pt discharged with instructions to f/u with PCP and gastroenterology. He will continue protonix outpatient. ETOH cessation was emphasized. I spent 35 minutes coordinating this discharge, d/c date 02/06 Gen: awake, alert HEENT: normocephalic, atraumatic, good hearing acuity, moist mucous membranes Resp: good air exchange, breathing comfortably with no accessory muscle use CVS: good distal perfusion x 4, GI: soft, NTTP, ND : no SPT, no CVAT, delatorre catheter not present MSK: no pitting edema, no clubbing Neuro: non-focal, moving all extremities Psych: cooperative, euthymic mood Patient Condition at Discharge: Good Plan - Discharge Summary Discharge Rx Participant: No New Discharge Prescriptions: New Pantoprazole [Protonix] 40 mg PO DAILY #30 tab Thiamine [Vitamin B-1] 100 mg PO DAILY #30 tab Continue lisinopriL [Zestril] 5 mg PO DAILY HYDROcodone/APAP 7.5-325MG [[place] 7.5-325] 1 tab PO BID PRN PRN Reason: pain Cyclobenzaprine [Flexeril] 10 mg PO BID PRN PRN Reason: Muscle Spasm Cholecalciferol [Vitamin D3 (25 Mcg = 1000 Iu)] 50 mcg PO DAILY Insulin Glargine,Hum.rec.anlog [Lantus Solostar Pen] 15 unit SQ DAILY PRN PRN Reason: high blood sugar metFORMIN HCL [Glucophage] 850 mg PO TID-W/MEALS PRN PRN Reason: high blood sugar ALPRAZolam [Xanax] 0.5 mg PO HS Mirtazapine 30 mg PO HS Atorvastatin [Lipitor] 20 mg PO DAILY Albuterol Inhaler [Ventolin Hfa Inhaler] 2 puff INHALATION RT-QID PRN PRN Reason: Shortness Of Breath Discharge Medication List ALPRAZolam [Xanax] 0.5 mg PO HS 06/18/21 [History] HYDROcodone/APAP 7.5-325MG [[place] 7.5-325] 1 tab PO BID PRN 06/18/21 [History] lisinopriL [Zestril] 5 mg PO DAILY 06/18/21 [History] metFORMIN HCL [Glucophage] 850 mg PO TID-W/MEALS PRN 06/18/21 [History] Albuterol Inhaler [Ventolin Hfa Inhaler] 2 puff INHALATION RT-QID PRN 02/03/23 [History] Atorvastatin [Lipitor] 20 mg PO DAILY 02/03/23 [History] Cholecalciferol [Vitamin D3 (25 Mcg = 1000 Iu)] 50 mcg PO DAILY 02/03/23 [History] Cyclobenzaprine [Flexeril] 10 mg PO BID PRN 02/03/23 [History] Insulin Glargine,Hum.rec.anlog [Lantus Solostar Pen] 15 unit SQ DAILY PRN 02/03/23 [History] Mirtazapine 30 mg PO HS 02/03/23 [History] Pantoprazole [Protonix] 40 mg PO DAILY #30 tab 02/05/23 [Rx] Thiamine [Vitamin B-1] 100 mg PO DAILY #30 tab 02/06/23 [Rx] Follow up Appointment(s)/Referral(s): Home Health,[facility] [NON-STAFF] - 1-2 Days ([facility] will call you to schedule your in home nursing, physical therapy, and occupational therapy visits. ) Nonstaff,Physician [Primary Care Provider] - 1-2 days Discharge/Stand Alone Forms: [facility], Outpatient Counseling, In Substance Abuse Facilities
[2023-02-06 11:05] LABS: Glucose,Whole Blood 106 mg/dL (70-110)
[2023-02-06 11:30] LABS: African American GFR (CKD) 118.4 (60.0-200.0); Anion Gap 6.9 mmol/L (10.00-18.00); BUN/Creat Ratio 9.68 Ratio (12.00-20.00); Blood Urea Nitrogen 6.7 mg/dL (9.0-27.0); Calcium 7.4 mg/dL (8.7-10.3); Carbon Dioxide 23.6 mmol/L (20.0-27.5); Magnesium 1.7 mg/dL (1.5-2.4); Non-African American GFR(CKD) 102.2 (60.0-200.0)
--- NOTE | 2023-02-06 12:16 | P.PN ---
Subjective Progress Note Date: 02/06/23 Principal diagnosis: This is a pleasant 63-year-old male with a past medical history including diabetes mellitus and long-standing history of alcoholism. Patient states he has been an alcoholic for many years back and forth being sober. States he was sober for the last 12 years and started drinking again about a month and a half ago. States he is drinking a case of beer every 3 days which is about 8 beers a day, he is not eating any food or drinking anything else throughout the day. States he's had decreased appetite since he's been drinking, increased weakness, and falls. States he does have a bad right leg and uses a cane to walk. Patient also reports having black stools for the last 3 weeks duration up until yesterday. He denies any abdominal pain, nausea, or vomiting. He does state that he takes ibuprofen daily at night for pain. No previous history of peptic ulcer disease, he does state that he has acid reflux and uses Pepcid. No prior EGD or colonoscopy. Admitting labs from yesterday patient was anemic, and gastroenterology was consulted for possible GI bleed. Admitting labs WBC 4.0 hemoglobin 10.4 hematocrit 30 platelet count 88,019 or 1.1 sodium 125 potassium 4.5 BUN 11 creatinine 0.8 lactic acid 2.7 total bilirubin 1.2 AST 78 ALT 56 alkaline phosphatase 147 lipase less than 10 stool occult blood negative serum alcohol less than 10 CT chest, abdomen and pelvis with contrast showed no acute findings in the abdomen or pelvis. No evidence for malignancy. Labs WBC 3.1 hemoglobin 9.2 hematocrit 27 platelet count currently pending, sodium 1:30 potassium 4.7 BUN 10 creatinine 0.7 glucose 113 lactic acid 0.8 total bilirubin 1.0 AST 46 ALT 43 alkaline phosphatase 120 02/06/2023: Patient was seen and examined today as a follow-up. Yesterday he underwent EGD and colonoscopy. Upper endoscopy revealed diffuse gastritis and long segment of Billings's esophagus status post multiple biopsies. Colonoscopy was within normal limits with no evidence of colorectal neoplasia. Patient to continue Protonix 40 mg daily. He denies any abdominal pain, nausea or vomiting. No bloody bowel movements or rectal bleeding. Plan is for discharge today. WBC 2.3 hemoglobin 7.6 hematocrit 22 platelet count 59,000 Objective - Vital Signs Vital signs: Vital Signs Temp 98.1 F 02/06/23 06:35 Pulse 67 02/06/23 09:36 Resp 16 02/06/23 09:36 BP 134/79 02/06/23 06:35 Pulse Ox 91 L 02/06/23 06:35 FiO2 Intake & Output 02/05/23 02/06/23 02/06/23 18:59 06:59 18:59 Intake Total 400 Balance 400 Intake: IV 400 Other: Voiding Method Toilet Toilet # Voids 2 2 - Exam General appearance: The patient is alert, oriented, appears in no acute distress. HET: Head is normocephalic and atraumatic. Conjunctiva pink. Sclera anicteric. Neck: Supple without lymphadenopathy. Abdomen: Soft, nontender, nondistended with bowel sounds. No guarding or rigidity. Extremities: Normal skin color and turgor. No pedal edema Skin: No rashes, no jaundice Neurological: No focal deficits. Alert and oriented. - Labs CBC & Chem 7: 02/06/23 06:12 02/06/23 06:12 Labs: Abnormal Lab Results - Last 24 Hours (Table) 02/04/23 02/04/23 02/04/23 Range/Units 05:30 20:49 22:03 WBC (4.50-10.00) X 10*3/uL RBC (4.40-5.60) X 10*6/uL Hgb (13.0-17.0) g/dL Hct (39.6-50.0) % MCV (80.0-97.0) fL MCH (27.0-32.0) pg RDW (11.5-14.5) % Plt Count (140-440) X 10*3/uL MPV (9.5-12.2) fL Neutrophils # (1.80-7.70) X 10*3/uL Lymphocytes # (0.90-5.00) X 10*3/uL Monocytes # (0.20-1.00) X 10*3/uL Anion Gap (10.00-18.00) mmol/L BUN (9.0-27.0) mg/dL BUN/Creatinine Ratio (12.00-20.00) Ratio POC Glucose (mg/dL) 122 H 115 H (70-110) mg/dL Calcium (8.7-10.3) mg/dL Ferritin (22.0-322.0) ng/mL RBC Folate 872 H (280 - 791) ng/mL 02/05/23 02/06/23 02/06/23 Range/Units 09:06 06:12 06:12 WBC 2.30 L (4.50-10.00) X 10*3/uL RBC 1.95 L (4.40-5.60) X 10*6/uL Hgb 7.6 L (13.0-17.0) g/dL Hct 22.9 L (39.6-50.0) % MCV 117.4 H (80.0-97.0) fL MCH 39.0 H (27.0-32.0) pg RDW 15.1 H (11.5-14.5) % Plt Count 59 L (140-440) X 10*3/uL MPV 9.4 L (9.5-12.2) fL Neutrophils # 1.56 L (1.80-7.70) X 10*3/uL Lymphocytes # 0.55 L (0.90-5.00) X 10*3/uL Monocytes # 0.12 L (0.20-1.00) X 10*3/uL Anion Gap 6.90 L (10.00-18.00) mmol/L BUN 6.7 L (9.0-27.0) mg/dL BUN/Creatinine Ratio 9.68 L (12.00-20.00) Ratio POC Glucose (mg/dL) (70-110) mg/dL Calcium 7.4 L (8.7-10.3) mg/dL Ferritin 376.0 H (22.0-322.0) ng/mL RBC Folate (280 - 791) ng/mL Assessment and Plan (1) Anemia Narrative/Plan: 63-year-old male with a history of diabetes and long-standing alcohol abuse off and on. Patient came in for weakness and frequent falls. He was found to be anemic with a hemoglobin of 10.4 and reporting black stools for the last 3 weeks duration. He has a macrocytic hyperchromic chronic anemia, platelet count 88,000 and elevated LFTs consistent with alcohol liver disease. Patient also reports on no anticoagulation but daily use of ibuprofen at bedtime. He has been drinking a case of beer reportedly every 3 days which is approximately 8 beers a day and states that he is not eating or drinking anything else. No previous history of peptic ulcer disease, GI bleed, EGD or colonoscopy. Had a drop in his hemoglobin today to 9.2, platelets pending. Stool occult blood negative however due to patient's history would recommend evaluation with EGD/ colonoscopy for possible GI bleed. Patient agreeable. Patient underwent EGD colonoscopy without any evidence of old blood or active bleeding. He did have diffuse gastritis and a segment of Billings's esophagus which may have been a source for GI bleed. However again labs are consistent with alcohol liver disease. Patient to follow-up with gastroenterology in 1-2 weeks for biopsy results and follow-up on liver disease. Current Visit: Yes Status: Acute Code(s): D64.9 - ANEMIA, UNSPECIFIED SNOMED Code(s): 483770957 (2) Elevated LFTs Narrative/Plan: Patient with mild LFTs with macrocytic hyperchromic anemia consistent with alcohol liver disease, likely with early cirrhosis of the liver Current Visit: Yes Status: Acute Code(s): R79.89 - OTHER SPECIFIED ABNORMAL FINDINGS OF BLOOD CHEMISTRY SNOMED Code(s): 110607243 (3) ETOH abuse Current Visit: Yes Status: Acute Code(s): F10.10 - ALCOHOL ABUSE, UNCOMPLICATED SNOMED Code(s): 47617677 (4) Diabetes Current Visit: Yes Status: Acute Code(s): E11.9 - TYPE 2 DIABETES MELLITUS WITHOUT COMPLICATIONS SNOMED Code(s): 37438541 (5) GERD (gastroesophageal reflux disease) Current Visit: Yes Status: Acute Code(s): K21.9 - GASTRO-ESOPHAGEAL REFLUX D ISEASE WITHOUT ESOPHAGITIS SNOMED Code(s): 462951901 (6) Hyponatremia Current Visit: Yes Status: Acute Code(s): E87.1 - HYPO-OSMOLALITY AND HYPONATREMIA SNOMED Code(s): 89725492 (7) Weakness Current Visit: Yes Status: Acute Code(s): R53.1 - WEAKNESS SNOMED Code(s): 42683356 (8) Pancytopenia Current Visit: Yes Status: Acute Code(s): D61.818 - OTHER PANCYTOPENIA SNOMED Code(s): 141797447 Plan: 1. Continue symptomatic and supportive care 2. Patient status post EGD and colonoscopy 3. Protonix 40 mg daily 4. GERD precautions 5. Alcohol abstinence. Discussed with patient importance of alcohol abstinence with appearance of underlying liver disease related to alcohol abuse. Patient verbalized understanding 6. Patient is cleared from gastroenterology for discharge. Follow-up in 1-2 weeks for biopsy results and liver surveillance Thank you for this consultation. Dr. Tessy Lynch I agree with the dictator's note, documented as a scribe by Светлана Rubin.
--- NOTE | 2023-02-08 13:39 | CDI ---
Documentation Clarification Form Date: 02/08/2023 1:10:43 PM From: Ximena Santo Admit Date: 02/04/2023 12:36:00 AM Patient Name: Nathaniel Abarca Visit Number: [id number] Discharge Date: 02/06/2023 1:22:00 PM ATTENTION: The Clinical Documentation Specialists (CDI) and [facility] Coding Staff appreciate your assistance in clarifying documentation. Please respond to the clarification below the line at the bottom and electronically sign. The CDI & [facility] Coding staff will review the response and follow-up if needed. Please note: Queries are made part of the Legal Health Record. If you have any questions, please contact the author of this message via ITS. Dr. Millicent Murrieta The patients principal diagnosis the diagnosis that was chiefly responsible for the admission - has not been clearly identified and clarification is requested. The patient presented with the following: generalized weakness, weight loss of 30lbs in the last 1-2 months due to decreased appetite, unable to perform ADLs, FTT, reports a few episodes of black tarry stools without bright red blood. 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 History/Risk factors: patient is a 63 year old male with diabetes, HLD, COPD, anxiety, HTN,GERD, alcoholism and smoker. patient is currently drinking 48 cans of 12oz beers per week, no other nutritional intake Clinical Indicators: failure to thrive, weakness, loss of appetite, black tarry stools- FOB negative. Alcohol abuse, hyponatremia, lactic acidosis, dehydration, pancytopenia, rule out underlying malignancy Lab findings: WBC: 3.1 and 2.30, RBC: 2.41 and 1.95, HGB: 10.4 and 7.6, HCT: 30.2 and 22.9, platelets: 60, Sodium: 125, chloride: 93, glucose: 148, lactic acid: 2.7, calcium: 8.0, AST: 78, ALT: 56, Stool occult blood- negative Radiology findings: chest x-ray: no evidence for acute pulmonary disease, KUB abdomen: overall nonobstructive bowel gas pattern, CT of chest and abdomen: no acute findings in the chest- no evidence for malignancy. No acute findings in the abdomen or pelvis, no evidence for malignancy. Treatment: IV fluids normal saline, thiamine, alcohol cessation counseling Consults: GI EGD: upper endoscopy revealed diffuse gastritis and long segment Barretts esophagus with biopsies- Gastric antrum bx: mild chronic gastritis Colonoscopy: was within normal limits with no evidence of colorectal neoplasia. In your professional opinion, can you please clarify which diagnosis, after study, was the reason chiefly responsible for the admission? [ ] Mild chronic gastritis with possible bleeding [x] Hyponatremia [ ] Alcoholic liver disease with early cirrhosis of the liver [ ] Other, please specify [ ] Unable to determine MTDD
--- NOTE | 2023-02-08 13:56 | CDI ---
Documentation Clarification Form Date: 02/08/2023 1:42:04 PM From: Ximena Santo Admit Date: 02/04/2023 12:36:00 AM Patient Name: Nathaniel Abarca Visit Number: [id number] Discharge Date: 02/06/2023 1:22:00 PM ATTENTION: The Clinical Documentation Specialists (CDI) and [facility] Coding Staff appreciate your assistance in clarifying documentation. Please respond to the clarification below the line at the bottom and electronically sign. The CDI & [facility] Coding staff will review the response and follow-up if needed. Please note: Queries are made part of the Legal Health Record. If you have any questions, please contact the author of this message via ITS. Dr. Rafal Mar Patient presented with generalized weakness, weight loss of 30lbs in the last 1- 2 months due to decreased appetite, unable to perform ADLs, and FTT. Based on this information and the findings below, is there an additional diagnosis that is clinically appropriate for this patient? History/Risk Factors: patient is a 63 year old male with diabetes, HLD, COPD, anxiety, HTN,GERD, alcoholism and smoker. Clinical Indicators: Patient has FTT, weakness, loss of appetite, black tarry stools- FOB negative. Alcohol abuse, hyponatremia, lactic acidosis, dehydration, pancytopenia, rule out underlying malignancy. 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 8 beers a day and no other nutritional intake. RD Consult Assessment: reports 0% PO intake before arrival times 3 days, reports nausea, poor appetite Current BMI: 25.7 Insufficient energy intake Weight Loss: 30 lbs in 1-2 months Treatment: clear liquid diet, advance to full- regular diet when medically able Lab monitoring: Lab findings: WBC: 3.1 and 2.30, RBC: 2.41 and 1.95, HGB: 10.4 and 7.6, HCT: 30.2 and 22.9, platelets: 60, Sodium: 125, chloride: 93, glucose: 148, lactic acid: 2.7, calcium: 8.0, AST: 78, ALT: 56, Stool occult blood- negative, albumin: 2.8 Is there an additional diagnosis that is clinically appropriate for this patient? [ ] Mild Protein-Calorie Malnutrition [ ] Moderate Protein-Calorie Malnutrition [ ] Severe Protein-Calorie Malnutrition [ ] No additional diagnosis/Not clinically significant [ ] Other condition, please specify [ x ] Unable to Determine MTDD
== END 2023-02-06 13:22 | disposition home health service (06) | DRG 640 ==
LOC: EC 20:47 → 4SSUR 02-04 00:36
PROVIDERS: ADMIT Internal Medicine; ATTEND Internal Medicine
PROC: 0DB78ZX Excision of Stomach, Pylorus, Via Natural or Artificial Opening Endoscopic, Diagnostic (ICD-10-PCS; principal; 2023-02-05 07:30)
PROC: 0DJD8ZZ Inspection of Lower Intestinal Tract, Via Natural or Artificial Opening Endoscopic (ICD-10-PCS; principal; 2023-02-05 07:30)
DX: E87.1 Hypo-osmolality and hyponatremia (principal); K29.71 Gastritis, unspecified, with bleeding; D61.818 Other pancytopenia; E87.20 Acidosis, unspecified; E86.0 Dehydration; F17.210 Nicotine dependence, cigarettes, uncomplicated; R63.4 Abnormal weight loss; D53.9 Nutritional anemia, unspecified; E87.8 Other disorders of electrolyte and fluid balance, not elsewhere classified; R62.7 Adult failure to thrive; K70.30 Alcoholic cirrhosis of liver without ascites; K22.70 Barrett's esophagus without dysplasia; D75.89 Other specified diseases of blood and blood-forming organs; E11.9 Type 2 diabetes mellitus without complications; K21.9 Gastro-esophageal reflux disease without esophagitis; E78.5 Hyperlipidemia, unspecified; F41.9 Anxiety disorder, unspecified; J44.9 Chronic obstructive pulmonary disease, unspecified; F10.20 Alcohol dependence, uncomplicated; I10 Essential (primary) hypertension; R74.01 Elevation of levels of liver transaminase levels; R29.6 Repeated falls; Z71.3 Dietary counseling and surveillance; Z71.6 Tobacco abuse counseling; Z68.25 Body mass index [BMI] 25.0-25.9, adult; Z79.4 Long term (current) use of insulin; Z79.84 Long term (current) use of oral hypoglycemic drugs; Z79.899 Other long term (current) drug therapy
CPT/HCPCS: 36415; 43239; 45378; 71046; 71260; 74018; 74177; 80048; 80053; 80320; 81003; 82272; 82607; 82728; 82747; 83605; 83690; 83735; 83880; 84443; 84484; 85025; 85027; 85610; 85730; 86850; 86900; 86901; 88305; 93005; 96361; 96374; 99285

== ENCOUNTER 2023-05-24 12:58 | Emergency (ER) | payer MEDICARE ==
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
[2023-05-24 14:30] LABS: Basophils % (A) 0 %; Eosinophils % (A) 1 %; HCT 24.7 % (39.0-53.0); HGB 8.3 gm/dL (13.0-17.5); Hypochromasia Slight; Lymphocytes # (A) 0.7 k/uL (1.0-4.8); Lymphocytes % (A) 16 %; MCH 40.4 pg (25.0-35.0); MCHC 33.7 g/dL (31.0-37.0); MCV 119.9 fL (80.0-100.0); Macrocytosis Marked; Mean Platelet Volume 10.2; Monocytes # (A) 0.2 k/uL (0-1.0); Monocytes % (A) 6 %; Neutrophils # (A) 3.4 k/uL (1.3-7.7); Neutrophils % (A) 76 %; Platelet Count 105 k/uL (150-450); RBC 2.06 m/uL (4.30-5.90); RDW 15.4 % (11.5-15.5); WBC 4.4 k/uL (3.8-10.6)
--- NOTE | 2023-05-24 14:37 | XR ---
EXAMINATION TYPE: XR foot complete LT DATE OF EXAM: 05/24/2023 2:31 PM INDICATION: Patient age:Male; 63 years old; Reason for study: non-healing wound L 4th toe r/o osteo; PHH. COMPARISON: None TECHNIQUE: The left foot was examined in the AP, oblique, and lateral projections. FINDINGS: No evidence of any acute osseous pathology. No osseous erosions. Soft tissue swelling of the fourth digit. Joints are preserved. Incidental note is made of symphalangism of the fifth distal interphalan geal joint. IMPRESSION: 1. No evidence of acute fracture. No osseous erosions to suggest osteomyelitis. 2. Mild soft tissue swelling of the fourth digit.
[2023-05-24 14:43] VITALS: RESP 18
[2023-05-24 14:50] LABS: ALT 31 U/L (4-49); AST 46 U/L (17-59); African American GFR (CKD) 56 (>60 ml/min/1.73 sqM); Albumin 2.5 g/dL (3.5-5.0); Alkaline Phosphatase 157 U/L (38-126); Anion Gap 4 mmol/L; Blood Urea Nitrogen 27 mg/dL (9-20); Calcium 7.7 mg/dL (8.4-10.2); Carbon Dioxide 20 mmol/L (22-30); Chloride 105 mmol/L (98-107); Glucose 131 mg/dL (74-99); Non-African American GFR(CKD) 48 (>60 ml/min/1.73 sqM); Potassium 4.9 mmol/L (3.5-5.1); Sodium 129 mmol/L (137-145); Total Bilirubin 0.9 mg/dL (0.2-1.3); Total Protein 6.1 g/dL (6.3-8.2)
[2023-05-24 14:54] LABS: Poikilocytosis (M) Present
[2023-05-24] MEDS ORDERED: SODIUM CHLORIDE 0.9% 1,000 ML IV STA (15:06)
[2023-05-24 16:38] VITALS: BP 127/81; PULSE 65; TEMP 97.6
== END 2023-05-24 16:44 | disposition home or self-care (01) ==
LOC: EC 12:58
DX: T81.89XA Other complications of procedures, not elsewhere classified, initial encounter (principal); E87.1 Hypo-osmolality and hyponatremia; D64.9 Anemia, unspecified; D69.6 Thrombocytopenia, unspecified; J44.9 Chronic obstructive pulmonary disease, unspecified; E11.9 Type 2 diabetes mellitus without complications; F17.200 Nicotine dependence, unspecified, uncomplicated; Z79.4 Long term (current) use of insulin; Z79.899 Other long term (current) drug therapy; Z79.84 Long term (current) use of oral hypoglycemic drugs
CPT/HCPCS: 36415; 80053; 85025; 96360; 99283

== ENCOUNTER 2023-07-02 21:07 | Inpatient (IN) | payer MEDICARE ==
[2023-07-02] MEDS ORDERED: SODIUM CHLORIDE 0.9% 1,000 ML IV STA (21:34)
[2023-07-02] MEDS ORDERED: ONDANSETRON 4 MG/2 ML VIAL IVP STA (21:34)
[2023-07-02] MEDS ORDERED: MORPHINE SULFATE 4 MG/ML SYRINGE IV STA (21:34)
[2023-07-02] MEDS ORDERED: PANTOPRAZOLE 40 MG/10 ML VIAL IVP STA (21:34)
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
[2023-07-02 22:21] LABS: Basophils % (A) 0 %; Eosinophils # (A) 0.1 k/uL (0-0.7); Eosinophils % (A) 1 %; HCT 24.1 % (39.0-53.0); HGB 7.8 gm/dL (13.0-17.5); Hypochromasia Moderate; Lymphocytes # (A) 0.5 k/uL (1.0-4.8); Lymphocytes % (A) 11 %; MCH 40.3 pg (25.0-35.0); MCHC 32.3 g/dL (31.0-37.0); Macrocytosis Marked; Mean Platelet Volume 8.9; Monocytes # (A) 0.2 k/uL (0-1.0); Monocytes % (A) 5 %; Neutrophils # (A) 3.6 k/uL (1.3-7.7); Neutrophils % (A) 81 %; Platelet Count 105 k/uL (150-450); RBC 1.93 m/uL (4.30-5.90); RDW 15.8 % (11.5-15.5); WBC 4.5 k/uL (3.8-10.6)
--- NOTE | 2023-07-02 22:22 | XR ---
EXAMINATION TYPE: XR chest 1V portable DATE OF EXAM: 07/02/2023 COMPARISON: Prior CT February 04, 2023 HISTORY: Shortness of breath TECHNIQUE: Single frontal view of the chest is obtained. FINDINGS: Background of mild chronic emphysematous change with right basilar calcified pleural plaqu e and pleural thickening is redemonstrated. Some right basilar linear scarring is redemonstrated. The re is no suspicious new focal air space opacity or pneumothorax seen bilaterally. The cardiac silhou ette size is stable and within normal limits. Degenerative change bilateral glenohumeral joints are s een. IMPRESSION: Chronic changes without new acute pulmonary process.
[2023-07-02 22:28] LABS: MCV 124.9 fL (80.0-100.0)
[2023-07-02 22:32] LABS: Partial Thromboplastin Time 25.2 sec (22.0-30.0); Prothrombin Time 10.5 sec (9.0-12.0)
[2023-07-02 22:36] LABS: ALT 29 U/L (4-49); AST 45 U/L (17-59); African American GFR (CKD) 47 (>60 ml/min/1.73 sqM); Albumin 2.4 g/dL (3.5-5.0); Alkaline Phosphatase 125 U/L (38-126); Anion Gap 8 mmol/L; Blood Urea Nitrogen 48 mg/dL (9-20); Calcium 7.7 mg/dL (8.4-10.2); Carbon Dioxide 16 mmol/L (22-30); Chloride 103 mmol/L (98-107); Glucose 163 mg/dL (74-99); Magnesium 1.7 mg/dL (1.6-2.3); Non-African American GFR(CKD) 40 (>60 ml/min/1.73 sqM); Potassium 5.8 mmol/L (3.5-5.1); Sodium 127 mmol/L (137-145); Total Bilirubin 0.6 mg/dL (0.2-1.3); Total Protein 5.6 g/dL (6.3-8.2)
[2023-07-02 23:33] LABS: Appearance,Urine Clear (Clear); Bilirubin,Urine Negative (Negative); Blood,Urine Small (Negative); Color,Urine Yellow; Glucose,Urine (UA) Negative (Negative); Hyaline Casts,Urine 12 /lpf (0-2); Ketones,Urine Negative (Negative); Leukocyte Esterase,Urine Trace (Negative); Mucus,Urine Rare /hpf; Nitrite,Urine Negative (Negative); Protein,Urine Negative (Negative); RBC,Urine 23 /hpf (0-5); Specific Gravity,Urine 1.018 (1.001-1.035); Squamous Epithelial Cell,Urine 2 /hpf (0-4); Urobilinogen,Urine <2.0 mg/dL (<2.0); WBC,Urine 3 /hpf (0-5)
[2023-07-02] MEDS ORDERED: IPRATROPIUM-ALBUTEROL 3 ML NEB INHALATION STA (23:40)
[2023-07-02] MEDS ORDERED: NALOXONE 0.4 MG/ML 1 ML VIAL IV PRN (23:40)
[2023-07-02] MEDS ORDERED: ONDANSETRON 4 MG/2 ML VIAL IVP PRN (23:40)
[2023-07-03 00:01] LABS: Anisocytosis (M) Present
[2023-07-03 00:08] LABS: Poikilocytosis (M) Present
[2023-07-03] MEDS: SODIUM CHLORIDE 0.9% 1,000 ML IV SCH ×2 (00:09→14:59)
[2023-07-03 00:44] LABS: T4, Free (Free Thyroxine) 0.94 ng/dL (0.78-2.19)
[2023-07-03] MEDS ORDERED: ATORVASTATIN 40 MG TAB PO STA (01:10)
[2023-07-03] MEDS ORDERED: ASPIRIN 81 MG PO STA (01:10)
[2023-07-03] MEDS ORDERED: HEPARIN SODIUM 1,000 UN/ML (10ML VL) IV PRN (01:26)
[2023-07-03] MEDS ORDERED: HEPARIN SODIUM 1,000 UN/ML (10ML VL) IV ONE (01:26)
[2023-07-03] MEDS ORDERED: HEPARIN SOD,PORK IN 0.45% NACL 25,000 UNIT in 0.45% NACL 1 250ML.BAG IV SCH (01:30)
[2023-07-03] MEDS: METOPROLOL TARTRATE 12.5 MG TAB PO SCH ×3 (02:13→20:23)
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
--- NOTE | 2023-07-03 04:23 | CT ---
EXAM: CT Chest Without Intravenous Contrast CLINICAL HISTORY: Shortness of breath. Had blood work done and was told to come to the ER for abnormal hemoglobin and potassium levels. Unexplained weight loss. TECHNIQUE: Axial computed tomography images of the chest without intravenous contrast. CTDI is 4.2 mGy and DLP is 397.1 mGy-cm. This CT exam was performed using one or more of the following dose reduction techniques: automated exposure control, adjustment of the mA and/or kV according to patient size, and/or use of iterative reconstruction technique. COMPARISON: CT chest with contrast dated 02/04/2023 FINDINGS: Lungs: Curvilinear changes noted throughout the right lung, predominantly adjacent to the pleural calcifications. No focal airspace consolidation. Pleural space: Scattered pleural calcifications involving the right hemithorax anteriorly and posteriorly. No associated prominent soft tissue component. No pneumothorax. No significant effusion. Heart: Coronary artery calcification is stable from the previous examination. Trace pericardial effusion. Mediastinum: There is gas and fluid distention of the proximal to mid esophagus. The distal esophagus is decompressed. Questionable small vascular structure is noted adjacent to the distal thoracic esophagus. Bones/joints: Unremarkable. No acute fracture. No dislocation. Soft tissues: No significant overlying soft tissue abnormality. Vasculature: Minimal atherosclerotic calcification of the normal caliber aorta noted. Lymph nodes: Unremarkable. No enlarged lymph nodes. IMPRESSION: There is gas and fluid distention of the proximal to mid esophagus. The distal esophagus is decompressed. Questionable small vascular structure is noted adjacent to the distal thoracic esophagus. Subtle varicosities not excluded. EXAM: CT Abdomen and Pelvis Without Intravenous Contrast CLINICAL HISTORY: Shortness of breath. Had blood work done and was told to come to the ER for abnormal hemoglobin and potassium levels. Unexplained weight loss. TECHNIQUE: Axial computed tomography images of the abdomen and pelvis without intravenous contrast. CTDI is 4.2 mGy and DLP is 397.1 mGy-cm. This CT exam was performed using one or more of the following dose reduction techniques: automated exposure control, adjustment of the mA and/or kV according to patient size, and/or use of iterative reconstruction technique. COMPARISON: No relevant prior studies available. FINDINGS: Lung bases: For findings regarding the lung bases, please see the CT report of the chest performed concurrently. ABDOMEN: Liver: Abnormal lobulated contours to the liver appear more prominent from the previous examination. Evaluation of the liver is limited without contrast. Gallbladder and bile ducts: Unremarkable. No calcified stones. No ductal dilation. Pancreas: Unremarkable. No ductal dilation. Spleen: Unremarkable. No splenomegaly. Adrenals: Unremarkable. No mass. Kidneys and ureters: Unremarkable. No obstructing stones. No hydronephrosis. Stomach and bowel: No bowel obstruction. Evaluation the bowel mucosa is limited without contrast and ascites. PELVIS: Appendix: No findings to suggest acute appendicitis. Bladder: Unremarkable. No stones. Reproductive: Unremarkable as visualized. ABDOMEN and PELVIS: Intraperitoneal space: There is new moderate ascites noted throughout the abdomen and pelvis. No loculation. Bones/joints: There is a new compression fracture involving the superior endplate at L3 with 35% loss of height centrally. There is involvement of the anterior and superior corner of the vertebral body with minimal displacement. No extension to involve the posterior cortex, pedicles or posterior elements. No dislocation. Soft tissues: Superficial subcutaneous edema and fat stranding throughout the soft tissues of the abdomen and pelvis, primarily in the dependent posterior regions. Vasculature: Unremarkable. No abdominal aortic aneurysm. Lymph nodes: Unremarkable. No enlarged lymph nodes. IMPRESSION: 1. Abnormal lobulated contours to the liver appear more prominent from the previous examination. Evaluation of the liver is limited without contrast. Findings are highly suspicious for cirrhosis.. 2. There is new moderate ascites noted throughout the abdomen and pelvis. No loculation. 3. No bowel obstruction. Evaluation the bowel mucosa is limited without contrast and ascites. No pneumoperitoneum. 4. There is a new compression fracture involving the superior endplate at L3 with 35% loss of height centrally. There is involvement of the anterior and superior corner of the vertebral body with minimal displacement. No extension to involve the posterior cortex, pedicles or posterior elements. 5. Superficial subcutaneous edema and fat stranding throughout the soft tissues of the abdomen and pelvis, primarily in the dependent posterior regions. Findings are most consistent with anasarca.
[2023-07-03] MEDS ORDERED: IPRATROPIUM-ALBUTEROL 3 ML NEB INHALATION PRN (04:44)
[2023-07-03] MEDS: methylPREDNISolone SOD SUCCI 125 MG/2 ML VIAL IV SCH ×3 (05:43→18:21)
[2023-07-03] MEDS: SYMBICORT 160-4.5 MCG INHALER INHALATION SCH ×2 (08:11→20:39)
[2023-07-03] MEDS: IPRATROPIUM-ALBUTEROL 3 ML NEB INHALATION SCH ×4 (08:11→20:39)
[2023-07-03] MEDS: MORPHINE SULFATE 4 MG/ML SYRINGE IV PRN (08:14)
[2023-07-03] MEDS ORDERED: CYCLOBENZAPRINE 10 MG TAB PO PRN (09:56)
[2023-07-03] MEDS ORDERED: LORazepam 2 MG/ML INJ IV PRN ×2 (09:57)
[2023-07-03] MEDS ORDERED: LORazepam 0.5 MG TAB PO PRN (09:57)
[2023-07-03] MEDS ORDERED: LORazepam 1 MG TAB PO PRN ×3 (09:57)
[2023-07-03] MEDS ORDERED: THIAMINE 100 MG/ML 2 ML VIAL IM STA (09:57)
[2023-07-03] MEDS ORDERED: SPIRONOLACTONE 25 MG TAB PO SCH (10:15)
[2023-07-03 10:35] LABS: Anisocytosis Slight; Basophils % (A) 0 %; Eosinophils % (A) 0 %; HCT 22.5 % (39.0-53.0); HGB 7.2 gm/dL (13.0-17.5); Hypochromasia Moderate; Lymphocytes # (A) 0.2 k/uL (1.0-4.8); Lymphocytes % (A) 6 %; MCH 40.1 pg (25.0-35.0); MCHC 31.7 g/dL (31.0-37.0); MCV 126.2 fL (80.0-100.0); Mean Platelet Volume 10.1; Monocytes # (A) 0.1 k/uL (0-1.0); Monocytes % (A) 2 %; Neutrophils # (A) 2.9 k/uL (1.3-7.7); Neutrophils % (A) 92 %; RBC 1.79 m/uL (4.30-5.90); RDW 16.2 % (11.5-15.5); WBC 3.2 k/uL (3.8-10.6)
[2023-07-03] MEDS ORDERED: DEXTROSE 50% SYRINGE 50 ML IVP PRN ×2 (10:36)
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
[2023-07-03] MEDS: FUROSEMIDE 40 MG TAB PO SCH (10:51)
[2023-07-03 10:59] LABS: Macrocytosis Marked
[2023-07-03 11:47] LABS: Platelet Count 81 k/uL (150-450)
--- NOTE | 2023-07-03 12:09 | NM ---
EXAMINATION TYPE: NM pul vent and perfuse DATE OF EXAM: 07/03/2023 CLINICAL INDICATION: Male, 63 years old with history of PE; COMPARISON: CT 07/03/2023, chest radiograph 07/02/2023. TECHNIQUE: Utilizing inhalation of 67.8 mCi Tc 99m DTPA aerosol and intravenous injection of 5.5 mCi of Tc 99m MAA, ventilation and perfusion images are acquired post injection in multiple projections. FINDINGS: Normal radiotracer distribution is noted in the lungs. There is no evidence of mismatched defects. IMPRESSION: No evidence for pulmonary embolus.
[2023-07-03 12:19] LABS: ALT 29 U/L (4-49); AST 40 U/L (17-59); African American GFR (CKD) 45 (>60 ml/min/1.73 sqM); Albumin 2.4 g/dL (3.5-5.0); Alkaline Phosphatase 127 U/L (38-126); Anion Gap 5 mmol/L; Blood Urea Nitrogen 47 mg/dL (9-20); Calcium 7.6 mg/dL (8.4-10.2); Carbon Dioxide 17 mmol/L (22-30); Chloride 105 mmol/L (98-107); Glucose 170 mg/dL (74-99); Magnesium 1.7 mg/dL (1.6-2.3); Non-African American GFR(CKD) 39 (>60 ml/min/1.73 sqM); Phosphorus 5.6 mg/dL (2.5-4.5); Sodium 127 mmol/L (137-145); Total Bilirubin 0.7 mg/dL (0.2-1.3); Total Protein 5.7 g/dL (6.3-8.2)
[2023-07-03 12:23] LABS: Potassium 6.2 mmol/L (3.5-5.1)
[2023-07-03 12:27] LABS: Glucose,Whole Blood 182 mg/dL (70-110)
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
[2023-07-03] MEDS: INSULIN ASPART (NovoLOG) 100 UNIT/ML VIAL SQ SCH ×3 (14:15→20:19)
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
[2023-07-03 15:36] LABS: HCT 22.6 % (39.0-53.0); HGB 7.4 gm/dL (13.0-17.5); Hypochromasia Moderate; MCH 41.1 pg (25.0-35.0); MCHC 32.7 g/dL (31.0-37.0); MCV 125.9 fL (80.0-100.0); Macrocytosis Marked; Mean Platelet Volume 8.6; RBC 1.79 m/uL (4.30-5.90); RDW 15.9 % (11.5-15.5); WBC 2.8 k/uL (3.8-10.6)
[2023-07-03 15:40] LABS: Platelet Count 81 k/uL (150-450)
[2023-07-03] MEDS ORDERED: SODIUM ZIRCONIUM CYCLOSILICATE 10 GM PACKET PO ONE (17:06)
[2023-07-03] MEDS ORDERED: DEXTROSE 50% SYRINGE 50 ML IVP STA (17:06)
[2023-07-03] MEDS ORDERED: CALCIUM GLUCONATE IN NACL 1 GM in SALINE 1 100ML.BAG IVPB ONE (17:30)
[2023-07-03] MEDS ORDERED: INSULIN REGULAR 100 UNIT/ML VIAL (IV) IV ONE (17:30)
[2023-07-03 17:49] LABS: Glucose,Whole Blood 199 mg/dL (70-110)
[2023-07-03 20:11] LABS: Glucose,Whole Blood 168 mg/dL (70-110)
[2023-07-03] MEDS: ALPRAZolam 0.5 MG TAB PO SCH (20:23)
[2023-07-04] MEDS: methylPREDNISolone SOD SUCCI 125 MG/2 ML VIAL IV SCH ×4 (00:53→17:59)
[2023-07-04 01:20] LABS: Anisocytosis Moderate; HGB 7.1 gm/dL (13.0-17.5); Hypochromasia Marked; MCH 39.4 pg (25.0-35.0); MCHC 32.3 g/dL (31.0-37.0); MCV 121.9 fL (80.0-100.0); Macrocytosis Marked; Mean Platelet Volume 9.5; RBC 1.81 m/uL (4.30-5.90); RDW 20.6 % (11.5-15.5); WBC 1.9 k/uL (3.8-10.6)
[2023-07-04 01:29] LABS: Platelet Count 57 k/uL (150-450)
[2023-07-04] MEDS ORDERED: SODIUM CHLORIDE 0.9% 1,000 ML IV ONE (01:30)
[2023-07-04] MEDS: SODIUM CHLORIDE 0.9% 1,000 ML IV SCH (02:00)
[2023-07-04 05:42] LABS: Glucose,Whole Blood 185 mg/dL (70-110)
[2023-07-04] MEDS: INSULIN ASPART (NovoLOG) 100 UNIT/ML VIAL SQ SCH ×4 (05:43→21:13)
[2023-07-04] MEDS: SYMBICORT 160-4.5 MCG INHALER INHALATION SCH ×2 (08:03→20:43)
[2023-07-04] MEDS: IPRATROPIUM-ALBUTEROL 3 ML NEB INHALATION SCH ×4 (08:03→20:43)
[2023-07-04 08:51] LABS: ALT 26 U/L (4-49); AST 41 U/L (17-59); African American GFR (CKD) 50 (>60 ml/min/1.73 sqM); Albumin 2.3 g/dL (3.5-5.0); Alkaline Phosphatase 111 U/L (38-126); Anion Gap 11 mmol/L; Blood Urea Nitrogen 48 mg/dL (9-20); Calcium 7.2 mg/dL (8.4-10.2); Carbon Dioxide 12 mmol/L (22-30); Chloride 103 mmol/L (98-107); Glucose 150 mg/dL (74-99); Non-African American GFR(CKD) 43 (>60 ml/min/1.73 sqM); Potassium 5.6 mmol/L (3.5-5.1); Sodium 126 mmol/L (137-145); Total Bilirubin 0.7 mg/dL (0.2-1.3); Total Protein 5.4 g/dL (6.3-8.2)
[2023-07-04 08:58] LABS: Anisocytosis Moderate; HGB 7.9 gm/dL (13.0-17.5); Hypochromasia Moderate; MCH 38.9 pg (25.0-35.0); MCHC 32.9 g/dL (31.0-37.0); MCV 118.5 fL (80.0-100.0); Macrocytosis Marked; Mean Platelet Volume 9.6; Platelet Count 63 k/uL (150-450); RBC 2.03 m/uL (4.30-5.90); RDW 20.1 % (11.5-15.5); WBC 2.3 k/uL (3.8-10.6)
[2023-07-04] MEDS ORDERED: THIAMINE 100 MG TAB PO SCH (09:00)
[2023-07-04] MEDS: THIAMINE 100 MG TAB PO SCH (09:00)
[2023-07-04] MEDS: CHOLECALCIFEROL 25 MCG (1000 IU) TABLET PO SCH (09:00)
[2023-07-04] MEDS ORDERED: SODIUM ZIRCONIUM CYCLOSILICATE 10 GM PACKET PO ONE (10:15)
[2023-07-04] MEDS: METOPROLOL TARTRATE 12.5 MG TAB PO SCH ×2 (10:21→21:13)
[2023-07-04 11:47] LABS: Glucose,Whole Blood 204 mg/dL (70-110)
[2023-07-04] MEDS: FUROSEMIDE 40 MG TAB PO SCH (12:00)
--- NOTE | 2023-07-04 12:55 | P.PN ---
Subjective Progress Note Date: 07/04/23 Principal diagnosis: L3 vertebral compression fracture Patient was seen at bedside this afternoon lying in semirecumbent position. Patient is complaining mostly of right hip/groin pain at this time. Patient says the back pain has eased a little bit. Patient says he does have a back brace at home which she has used before for back issues but does not like to use it. Patient denies any other issues at this time. Objective - Vital Signs Vital signs: Vital Signs Temp 97.5 F L 07/04/23 08:57 Pulse 83 07/04/23 11:58 Resp 16 07/04/23 11:44 BP 91/46 07/04/23 11:44 Pulse Ox 96 07/04/23 11:44 FiO2 Intake & Output 07/03/23 07/04/23 07/04/23 18:59 06:59 18:59 Intake Total 397 Output Total 305 Balance 92 Weight 85.729 kg 85.729 kg Intake: Oral 120 Blood Product 277 Rc Pheresis 2 As3 Unit 277 [id number] Output: Urine 305 Coude 5 Other: Voiding Method Urinal # Voids 1 - Exam Inspection: Negative for any open fractures, significant erythema/ecchymos is/open wounds. Sensation: Equal, symmetric, bilaterally intact at the upper and lower extremities on exam. Palpation: Positive for moderate tenderness to palpation throughout the upper to mid lumbar spine. Positive for tenderness patient over the right SI joint. Nontender to palpation throughout rest of exam. Range of motion: Full range of motion throughout bilateral upper extremities on exam. Limited range of motion in bilateral hips and flexion/extension secondary to referred pain to the low back. Full range of motion throughout rest exam in bilateral lower extremities. Motor: 4+/5 in all major motor groups bilateral upper extremities. 4/5 in resisted bilateral hip flexion extension. 4+/5 in all other major motor groups in bilateral lower extremities. Special tests: Negative Homans bilateral. Negative clonus bilateral. Negative Gayathri bilaterally. Neurovascular status: Radial pulses intact, 2+. Cap refill under 3 seconds and digits of upper extremities - Labs CBC & Chem 7: 07/04/23 08:17 07/04/23 08:17 Labs: Abnormal Lab Results - Last 24 Hours (Table) 07/03/23 07/03/23 07/03/23 Range/Units 10:06 15:17 17:48 WBC 2.8 L (3.8-10.6) k/uL RBC 1.79 L (4.30-5.90) m/uL Hgb 7.4 L (13.0-17.5) gm/dL Hct 22.6 L (39.0-53.0) % MCV 125.9 H (80.0-100.0) fL MCH 41.1 H (25.0-35.0) pg RDW 15.9 H (11.5-15.5) % Plt Count 81 L (150-450) k/uL Macrocytosis Marked A Sodium (137-145) mmol/L Potassium (3.5-5.1) mmol/L Carbon Dioxide (22-30) mmol/L BUN (9-20) mg/dL Creatinine (0.66-1.25) mg/dL Glucose (74-99) mg/dL POC Glucose (mg/dL) 199 H (70-110) mg/dL Calcium (8.4-10.2) mg/dL Total Protein (6.3-8.2) g/dL Albumin (3.5-5.0) g/dL Crossmatch See Detail 07/03/23 07/04/23 07/04/23 Range/Units 20:00 01:05 05:40 WBC 1.9 L (3.8-10.6) k/uL RBC 1.81 L (4.30-5.90) m/uL Hgb 7.1 L (13.0-17.5) gm/dL Hct 22.0 L (39.0-53.0) % MCV 121.9 H (80.0-100.0) fL MCH 39.4 H (25.0-35.0) pg RDW 20.6 H (11.5-15.5) % Plt Count 57 L (150-450) k/uL Macrocytosis Marked A Sodium (137-145) mmol/L Potassium (3.5-5.1) mmol/L Carbon Dioxide (22-30) mmol/L BUN (9-20) mg/dL Creatinine (0.66-1.25) mg/dL Glucose (74-99) mg/dL POC Glucose (mg/dL) 168 H 185 H (70-110) mg/dL Calcium (8.4-10.2) mg/dL Total Protein (6.3-8.2) g/dL Albumin (3.5-5.0) g/dL Crossmatch 07/04/23 07/04/23 07/04/23 Range/Units 08:17 08:17 11:45 WBC 2.3 L (3.8-10.6) k/uL RBC 2.03 L (4.30-5.90) m/uL Hgb 7.9 L (13.0-17.5) gm/dL Hct 24.0 L (39.0-53.0) % MCV 118.5 H (80.0-100.0) fL MCH 38.9 H (25.0-35.0) pg RDW 20.1 H (11.5-15.5) % Plt Count 63 L (150-450) k/uL Macrocytosis Marked A Sodium 126 L (137-145) mmol/L Potassium 5.6 H (3.5-5.1) mmol/L Carbon Dioxide 12 L (22-30) mmol/L BUN 48 H (9-20) mg/dL Creatinine 1.68 H (0.66-1.25) mg/dL Glucose 150 H (74-99) mg/dL POC Glucose (mg/dL) 204 H (70-110) mg/dL Calcium 7.2 L (8.4-10.2) mg/dL Total Protein 5.4 L (6.3-8.2) g/dL Albumin 2.3 L (3.5-5.0) g/dL Crossmatch Assessment and Plan Assessment: 1. Low back pain; L3 vertebral compression fracture; right hip pain Plan: 1. Low back pain; L3 vertebral compression fracture; right hip pain - CT of abdomen and pelvis does show superior endplate vertebral compression fracture. Recommend conservative measures at this time with oral pain meds and LSO brace. Patient does have back brace at home. Patient may weight-bear as tolerated with walker and assistance as necessary. Patient complains of a lot of right hip/groin pain. xr right hip ordered for further eval. We'll continue to follow patient during his stay in hospital. 2. Appreciate medical management 3. Pain management - [place]; Flexeril 4. DVT prophylaxis - mechanical 5. GI prophylaxis recs 6. PT/OT - weightbearing as tolerated with walker. 7. Encourage incentive spirometer use Time with Patient: Less than 30
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
--- NOTE | 2023-07-04 13:16 | P.PN ---
Subjective Progress Note Date: 07/04/23 * 63-year-old male with a PMH of type II DM, hypertension, hyperlipidemia, anxiety, alcohol abuse and COPD who presented to the ER because of not feeling well and generalized weakness for the last few weeks. Patient stated that he has been noticing that he has been feeling weak for the last few weeks, com plaining of shortness of breath on exertion. Patient also complaining of intermittent chest pain that is brought on by activity, central in location, pressure-like, improved with rest. Denies any fever or chills. Patient has been having increased weakness. Denies any nausea or vomiting, denies any blood in the stools. Because of the symptoms, patient came to the ER * Initial lab work done in the ER showed WBC 4.5, hemoglobin 7.8, platelet count 105, d-dimer 1.54, sodium 127, potassium 5.8, BUN 48, creatinine 1.78, plasma lactic 3.7 calcium 7.7, phosphorous 6 * EKG done in the ER showed heart rate of 98, no ST segment elevation seen, T- wave inversion seen in lead1,aVL, V5 and V6 * Chest x-ray done in the ER showed chronic changes without new acute pulmonary process * CTA chest abdominal done showed abnormal lobulated appearance of the liver suspicious for cirrhosis. Moderate ascites throughout the abdominal and pelvis. New compression fracture deformity of the superior endplate of L3. * 07/04: Patient seen and evaluated bedside, serum chemistry reviewed, does have pancytopenia Will consult hematology for evaluation. Patient denies previous history of cirrhosis. Serum chemistry shows hyperkalemia hypernatremia and renal failure we'll consult nephrology. Patient does complain of intermittent back pain Objective - Vital Signs Vital signs: Vital Signs Temp 97.5 F L 07/04/23 08:57 Pulse 83 07/04/23 11:58 Resp 16 07/04/23 11:44 BP 91/46 07/04/23 11:44 Pulse Ox 96 07/04/23 11:44 FiO2 Intake & Output 07/03/23 07/04/23 07/04/23 18:59 06:59 18:59 Intake Total 397 Output Total 305 Balance 92 Weight 85.729 kg 85.729 kg Intake: Oral 120 Blood Product 277 Rc Pheresis 2 As3 Unit 277 [id number] Output: Urine 305 Coude 5 Other: Voiding Method Urinal # Voids 1 - Exam GENERAL: The patient is alert and oriented x3, ill appearance, pale HEENT: Pupils are round and equally reacting to light. EOMI. CARDIOVASCULAR: S1 and S2 present. No murmurs, rubs, or gallops. PULMONARY: Chest is clear to auscultation, no wheezing or crackles. ABDOMEN: Soft, nontender, distended MUSCULOSKELETAL: No joint swelling or deformity. EXTREMITIES: 1+ pitting edema lower extremities bilaterally NEUROLOGICAL: Gross neurological examination did not reveal any focal deficits. SKIN: No rashes. - Labs CBC & Chem 7: 07/04/23 08:17 07/04/23 08:17 Labs: Abnormal Lab Results - Last 24 Hours (Table) 07/03/23 07/03/23 07/03/23 Range/Units 10:06 15:17 17:48 WBC 2.8 L (3.8-10.6) k/uL RBC 1.79 L (4.30-5.90) m/uL Hgb 7.4 L (13.0-17.5) gm/dL Hct 22.6 L (39.0-53.0) % MCV 125.9 H (80.0-100.0) fL MCH 41.1 H (25.0-35.0) pg RDW 15.9 H (11.5-15.5) % Plt Count 81 L (150-450) k/uL Macrocytosis Marked A Sodium (137-145) mmol/L Potassium (3.5-5.1) mmol/L Carbon Dioxide (22-30) mmol/L BUN (9-20) mg/dL Creatinine (0.66-1.25) mg/dL Glucose (74-99) mg/dL POC Glucose (mg/dL) 199 H (70-110) mg/dL Calcium (8.4-10.2) mg/dL Total Protein (6.3-8.2) g/dL Albumin (3.5-5.0) g/dL Crossmatch See Detail 07/03/23 07/04/23 07/04/23 Range/Units 20:00 01:05 05:40 WBC 1.9 L (3.8-10.6) k/uL RBC 1.81 L (4.30-5.90) m/uL Hgb 7.1 L (13.0-17.5) gm/dL Hct 22.0 L (39.0-53.0) % MCV 121.9 H (80.0-100.0) fL MCH 39.4 H (25.0-35.0) pg RDW 20.6 H (11.5-15.5) % Plt Count 57 L (150-450) k/uL Macrocytosis Marked A Sodium (137-145) mmol/L Potassium (3.5-5.1) mmol/L Carbon Dioxide (22-30) mmol/L BUN (9-20) mg/dL Creatinine (0.66-1.25) mg/dL Glucose (74-99) mg/dL POC Glucose (mg/dL) 168 H 185 H (70-110) mg/dL Calcium (8.4-10.2) mg/dL Total Protein (6.3-8.2) g/dL Albumin (3.5-5.0) g/dL Crossmatch 07/04/23 07/04/23 07/04/23 Range/Units 08:17 08:17 11:45 WBC 2.3 L (3.8-10.6) k/uL RBC 2.03 L (4.30-5.90) m/uL Hgb 7.9 L (13.0-17.5) gm/dL Hct 24.0 L (39.0-53.0) % MCV 118.5 H (80.0-100.0) fL MCH 38.9 H (25.0-35.0) pg RDW 20.1 H (11.5-15.5) % Plt Count 63 L (150-450) k/uL Macrocytosis Marked A Sodium 126 L (137-145) mmol/L Potassium 5.6 H (3.5-5.1) mmol/L Carbon Dioxide 12 L (22-30) mmol/L BUN 48 H (9-20) mg/dL Creatinine 1.68 H (0.66-1.25) mg/dL Glucose 150 H (74-99) mg/dL POC Glucose (mg/dL) 204 H (70-110) mg/dL Calcium 7.2 L (8.4-10.2) mg/dL Total Protein 5.4 L (6.3-8.2) g/dL Albumin 2.3 L (3.5-5.0) g/dL Crossmatch Assessment and Plan Assessment: Assessment and plan * Status post fall with compression fracture of L3 spine * Elevated troponin type II IN * COPD exacerbation with acute hypoxic respiratory failure * Acute hyponatremia * Hyperkalemia * Acute kidney injury secondary to ATN * Metabolic acidosis * Transient hypotension * Pancytopenia * Cirrhotic liver seen on computed tomography scan * Consultation obtained from nephrology, cardiology and orthopedic * Patient will need physical therapy occupational therapy evaluation. Patient on the TLSO brace * Regards to elevated troponin seen by cardiology, heparin was discontinued secondary to anemia * In regards to liver cirrhosis will need outpatient follow PCP and gastroenterology * Regards to pancytopenia will need follow-up with hematology oncology consulted while inpatient * CODE STATUS is full code
--- NOTE | 2023-07-04 14:57 | P.PN ---
Subjective Progress Note Date: 07/04/23 I am seeing this patient in new consultation today 07/03/2023 after he presented to the emergency room with ongoing and progressively worsening exertional shortness of breath. He is also had intermittent chest pain associated with activity over the last couple months. Patient is a 63-year-old white male with past medical history significant for COPD, chronic ongoing tobacco dependence, diabetes mellitus, alcoholism. Patient was apparently having issues with exertional shortness of breath, weakness, and intermittent chest pain over the last month. Patient describes the chest pain as non focal, intermittent, exacerbated by activity, and usually improves with rest. He denies any history of coronary artery disease. He has not had a recent stress test or heart catheterization. Denies any heart palpitations, lightheadedness, syncope, or lower extremity swelling. Patient's shortness of breath is described as mostly exertional with activity. He does admit to having a nonproductive cough, but states this is not any different from his usual cough. Denies any fevers, chills, myalgias, hemoptysis. Denies any recent travel or sick contacts. He does admit generalized weakness and fatigue. He's had difficulty walking lately. Chest x-ray on arrival to the emergency room did not show any acute infiltrates or evidence of pneumonia. It did show a right basilar pleural plaque and right basilar linear scarring, chronic and unchanged. Patient is currently sitting up in bed, on 2 L/m nasal cannula, in no acute distress. CBC on arrival showed a WBC count of 4.5, hemoglobin 7.8, hematocrit 24.1, platelets 105. Patient's anemia is chronic, but his hemoglobin is lower than normal. Denies any melena or silvino blood. Denies any abdominal complaints. Patient recently had an EGD/colonoscopy back in Jan, 2023 for GI bleeding which found mild gastritis and Billings's esophagus. CMP on arrival shows sodium 127, potassium 5.8, chloride 16, BUN 48, creatinine 1.78, glucose 163. Lactic acid level was 3.7 and is down to 3. Troponin elevated at 2.34. Patient denies any current chest pain. He has been started on a heparin infusion per protocol. ECG shows some T-wave inversion in the lateral leads. No acute ST elevation. Patient is being admitted to the cardiac stepdown unit. The patient is seen today 07/04/2023 and follow-up on the selective care unit. He is currently resting comfortably in bed. Awake and alert in no acute distress. Maintaining good O2 saturations in the mid 90s on room air. Afebrile. Hemodynamically stable. He is status post his current hemoglobin is 7.9. White count 2.3. Platelets 63,000. Sodium 126. Potassium 5.6. Bicarb 12. BUN 48. Creatinine 1.68. Glucose 150. He is continued on DuoNeb inhalations, Pulmicort, Solu-Medrol. Remains in the CIWA protocol. Initiated on a bicarbonate drip per nephrology. Objective - Vital Signs Vital signs: Vital Signs Temp 97.5 F L 07/04/23 08:57 Pulse 83 07/04/23 11:58 Resp 16 07/04/23 11:44 BP 91/46 07/04/23 11:44 Pulse Ox 96 07/04/23 11:44 FiO2 Intake & Output 07/03/23 07/04/23 07/04/23 18:59 06:59 18:59 Intake Total 397 180 Output Total 305 Balance 92 180 Weight 85.729 kg 85.729 kg Intake: Oral 120 180 Blood Product 277 Rc Pheresis 2 As3 Unit 277 [id number] Output: Urine 305 Coude 5 Other: Voiding Method Urinal # Voids 1 - Exam GENERAL EXAM: Alert, 63-year-old male, resting in bed, on room air, comfortable in no apparent distress. HEAD: Normocephalic and atraumatic EYES: Normal reaction of pupils, equal size. NOSE: Clear with pink turbinates. THROAT: No erythema or exudates. NECK: No masses, no JVD. CHEST: No chest wall deformity. LUNGS: Equal air entry with mild expiratory wheezes heard throughout. No crackles, rhonchi, focal dullness. CVS: S1 and S2 normal with no audible murmur, regular rhythm. No extra heart sounds ABDOMEN: Abdomen is slightly distended and tympanic, no hepatosplenomegaly, active bowel sounds, no guarding or rigidity. SPINE: No scoliosis or deformity SKIN: No rashes. Pale complexion CENTRAL NERVOUS SYSTEM: No focal deficits, tone is normal in all 4 extremities. EXTREMITIES: There is mild nonpitting bilateral lower extremity edema. No clubbing, or cyanosis. Peripheral pulses are intact. - Labs CBC & Chem 7: 07/04/23 08:17 07/04/23 08:17 Labs: Abnormal Lab Results - Last 24 Hours (Table) 07/03/23 07/03/23 07/03/23 Range/Units 10:06 15:17 17:48 WBC 2.8 L (3.8-10.6) k/uL RBC 1.79 L (4.30-5.90) m/uL Hgb 7.4 L (13.0-17.5) gm/dL Hct 22.6 L (39.0-53.0) % MCV 125.9 H (80.0-100.0) fL MCH 41.1 H (25.0-35.0) pg RDW 15.9 H (11.5-15.5) % Plt Count 81 L (150-450) k/uL Macrocytosis Marked A Sodium (137-145) mmol/L Potassium (3.5-5.1) mmol/L Carbon Dioxide (22-30) mmol/L BUN (9-20) mg/dL Creatinine (0.66-1.25) mg/dL Glucose (74-99) mg/dL POC Glucose (mg/dL) 199 H (70-110) mg/dL Calcium (8.4-10.2) mg/dL Total Protein (6.3-8.2) g/dL Albumin (3.5-5.0) g/dL Crossmatch See Detail 07/03/23 07/04/23 07/04/23 Range/Units 20:00 01:05 05:40 WBC 1.9 L (3.8-10.6) k/uL RBC 1.81 L (4.30-5.90) m/uL Hgb 7.1 L (13.0-17.5) gm/dL Hct 22.0 L (39.0-53.0) % MCV 121.9 H (80.0-100.0) fL MCH 39.4 H (25.0-35.0) pg RDW 20.6 H (11.5-15.5) % Plt Count 57 L (150-450) k/uL Macrocytosis Marked A Sodium (137-145) mmol/L Potassium (3.5-5.1) mmol/L Carbon Dioxide (22-30) mmol/L BUN (9-20) mg/dL Creatinine (0.66-1.25) mg/dL Glucose (74-99) mg/dL POC Glucose (mg/dL) 168 H 185 H (70-110) mg/dL Calcium (8.4-10.2) mg/dL Total Protein (6.3-8.2) g/dL Albumin (3.5-5.0) g/dL Crossmatch 07/04/23 07/04/23 07/04/23 Range/Units 08:17 08:17 11:45 WBC 2.3 L (3.8-10.6) k/uL RBC 2.03 L (4.30-5.90) m/uL Hgb 7.9 L (13.0-17.5) gm/dL Hct 24.0 L (39.0-53.0) % MCV 118.5 H (80.0-100.0) fL MCH 38.9 H (25.0-35.0) pg RDW 20.1 H (11.5-15.5) % Plt Count 63 L (150-450) k/uL Macrocytosis Marked A Sodium 126 L (137-145) mmol/L Potassium 5.6 H (3.5-5.1) mmol/L Carbon Dioxide 12 L (22-30) mmol/L BUN 48 H (9-20) mg/dL Creatinine 1.68 H (0.66-1.25) mg/dL Glucose 150 H (74-99) mg/dL POC Glucose (mg/dL) 204 H (70-110) mg/dL Calcium 7.2 L (8.4-10.2) mg/dL Total Protein 5.4 L (6.3-8.2) g/dL Albumin 2.3 L (3.5-5.0) g/dL Crossmatch Assessment and Plan Assessment: Acute hypoxemic respiratory failure, secondary to acute COPD exacerbation Elevated troponins, rule out NSTEMI Metabolic non-anion gap acidosis Acute kidney injury, creatinine 1.78 Macrocytic anemia Bicytopenia History of alcoholism Diabetes mellitus Subclinical hypothyroidism Chronic ongoing tobacco dependence Chronic low back pain, right hip pain Plan: The patient was seen and evaluated Labs and medications reviewed Initiated on a bicarb drip per nephrology Currently stable and on room air Continue bronchodilators, steroids We will continue to follow I have personally seen and examined the patient, performed the documentation and the assessment and plan as written. Number of minutes spent on the visit: 10.
[2023-07-04] MEDS: SODIUM CHLORIDE 0.45% 1,000 ML with SODIUM BICARB (1 MEQ/ML) 150 ML IV SCH ×2 (15:55)
[2023-07-04] MEDS: HYDROcodone/APAP 7.5-325MG 1 EACH TAB PO PRN (16:00)
[2023-07-04 16:33] LABS: Glucose,Whole Blood 141 mg/dL (70-110)
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
--- NOTE | 2023-07-04 17:48 | XR ---
EXAMINATION TYPE: XR Hip Limited RT, AP view DATE OF EXAM: 07/04/2023 Comparison: None Clinical History: 63-year-old male pain Findings: There is osteopenia limiting evaluation. There is mild degenerative change of the right hip. No acute fracture, subluxation, dislocation is seen. Vascular calcifications. Impression: Mild right hip OA. No acute osseous abnormality seen.
[2023-07-04] MEDS: MIDODRINE 5 MG TAB PO SCH (17:59)
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
[2023-07-04 20:38] LABS: Glucose,Whole Blood 192 mg/dL (70-110)
[2023-07-04] MEDS: ALPRAZolam 0.5 MG TAB PO SCH (21:13)
[2023-07-04 21:26] LABS: % Iron Saturation 25.95 (15.00-50.00)
[2023-07-04 21:53] LABS: Hepatitis A Antibody IgM Nonreactive; Hepatitis B Core IgM Nonreactive; Hepatitis B Surface Antigen Nonreactive; Hepatitis C IgG Antibody Nonreactive
[2023-07-04 22:35] LABS: HIV 2 AB Non-Reactive (Non-Reactive); HIV AB P24 Non-Reactive (Non-Reactive); HIV P24 AG Non-Reactive (Non-Reactive)
[2023-07-05] MEDS: methylPREDNISolone SOD SUCCI 125 MG/2 ML VIAL IV SCH ×4 (00:07→17:33)
[2023-07-05 06:20] LABS: Glucose,Whole Blood 154 mg/dL (70-110)
[2023-07-05] MEDS: INSULIN ASPART (NovoLOG) 100 UNIT/ML VIAL SQ SCH ×4 (06:36→21:01)
[2023-07-05] MEDS: MIDODRINE 5 MG TAB PO SCH ×3 (06:53→17:33)
[2023-07-05] MEDS: CHOLECALCIFEROL 25 MCG (1000 IU) TABLET PO SCH (08:28)
[2023-07-05] MEDS: FUROSEMIDE 40 MG TAB PO SCH (08:28)
[2023-07-05] MEDS: THIAMINE 100 MG TAB PO SCH (08:29)
[2023-07-05] MEDS: METOPROLOL TARTRATE 12.5 MG TAB PO SCH ×2 (08:29→21:01)
[2023-07-05] MEDS: SODIUM CHLORIDE 0.45% 1,000 ML with SODIUM BICARB (1 MEQ/ML) 150 ML IV SCH ×2 (08:29)
--- NOTE | 2023-07-05 08:40 | P.PN ---
Progress Note - Text Progress Note Date: 07/05/23 Patient seen and evaluated this morning. Patient is reporting mild low back pain. He is ambulatory within room, tolerating activity well. X-rays of the right hip were reviewed, negative for any fracture or dislocation. Patient may follow up in our office outpatient as needed if low back pain persists. Continue with conservative treatment at this time. No further recommendations from orthopedic standpoint. Orthopedics will be signing off at this time.
[2023-07-05] MEDS: SYMBICORT 160-4.5 MCG INHALER INHALATION SCH ×2 (09:12→18:34)
[2023-07-05] MEDS: IPRATROPIUM-ALBUTEROL 3 ML NEB INHALATION SCH ×4 (09:12→18:34)
[2023-07-05 11:23] LABS: Anisocytosis Moderate; Basophils % (A) 0 %; Eosinophils % (A) 0 %; HCT 24.5 % (39.0-53.0); HGB 7.9 gm/dL (13.0-17.5); Hypochromasia Slight; Lymphocytes # (A) 0.3 k/uL (1.0-4.8); Lymphocytes % (A) 6 %; MCH 38.1 pg (25.0-35.0); MCHC 32.2 g/dL (31.0-37.0); MCV 118.2 fL (80.0-100.0); Mean Platelet Volume 10.7; Monocytes # (A) 0.1 k/uL (0-1.0); Monocytes % (A) 2 %; Neutrophils # (A) 4.1 k/uL (1.3-7.7); Neutrophils % (A) 92 %; RBC 2.07 m/uL (4.30-5.90); RDW 20.2 % (11.5-15.5); WBC 4.4 k/uL (3.8-10.6)
--- NOTE | 2023-07-05 11:32 | P.PN ---
Subjective Patient is seen for follow-up for acute kidney injury. He is currently maintained on bicarb drip for metabolic acidosis. Patient also had hyponatr emia. Labs are pending from today No significant complaints. Patient has been voiding No obstruction noted on CT of the abdomen. No significant complaints today. Labs are pending Objective - Vital Signs Vital signs: Vital Signs Temp 97.3 F L 07/05/23 08:00 Pulse 68 07/05/23 09:21 Resp 20 07/05/23 08:00 BP 132/71 07/05/23 08:00 Pulse Ox 94 L 07/05/23 09:14 FiO2 21 07/05/23 09:14 Intake & Output 07/04/23 07/05/23 07/05/23 18:59 06:59 18:59 Intake Total 180 240 Output Total 200 Balance 180 -200 240 Weight 85.729 kg Intake: Oral 180 240 Output: Urine 200 Coude 100 Other: Voiding Method Urinal - Exam Patient is awake comfortable not in any acute distress Alert oriented 3 Examination of the heart S1 and S2 Examination of the lungs bilateral breath sounds are heard no crackles or wheezing is heard Abdomen is soft distended nontender Examination of lower extremities shows 1+ edema bilaterally mostly chronic 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 grossly intact - Labs CBC & Chem 7: 07/04/23 08:17 07/04/23 08:17 Labs: Abnormal Lab Results - Last 24 Hours (Table) 07/04/23 07/04/23 07/04/23 Range/Units 11:45 13:48 13:48 POC Glucose (mg/dL) 204 H (70-110) mg/dL Iron 48 L (65-175) UG/DL TIBC 185 L (228-460) UG/DL Transferrin 132.0 L (204.0-354.0) mg/dL Ferritin 325.0 H (22.0-322.0) ng/mL Vitamin B12 1066.0 H (200.0-944.0) pg/mL Folate 3.60 L (4.40-31.00) ng/mL 07/04/23 07/04/23 07/05/23 Range/Units 16:32 20:36 06:18 POC Glucose (mg/dL) 141 H 192 H 154 H (70-110) mg/dL Iron (65-175) UG/DL TIBC (228-460) UG/DL Transferrin (204.0-354.0) mg/dL Ferritin (22.0-322.0) ng/mL Vitamin B12 (200.0-944.0) pg/mL Folate (4.40-31.00) ng/mL Assessment and Plan Assessment: 1. Acute kidney injury mostly ATN associated with hypotension, currently nonoliguric. UA is benign. No evidence of obstruction on CT of the abdomen 2. Non-gap metabolic acidosis associated with acute kidney injury and possibly related to the IV fluids as well. No history of significant diarrhea. 3. Hyperkalemia associated with acute kidney injury and metabolic acidosis 4. Hyponatremia associated with underlying liver cirrhosis 5. Hypotension, check cortisol level and add midodrine 6. Anemia being followed by hematology. Also noted to have leukopenia and thrombocytopenia, most likely related to EtOH Plan: Continue bicarb drip for now. Follow-up on labs from today Continue to avoid nephrotoxic agents Continue with midodrine and hold for systolic blood pressure more than 100 mmHg
[2023-07-05 11:38] LABS: African American GFR (CKD) 57 (>60 ml/min/1.73 sqM); Anion Gap 7 mmol/L; Blood Urea Nitrogen 50 mg/dL (9-20); Calcium 6.6 mg/dL (8.4-10.2); Carbon Dioxide 22 mmol/L (22-30); Chloride 100 mmol/L (98-107); Glucose 184 mg/dL (74-99); Non-African American GFR(CKD) 49 (>60 ml/min/1.73 sqM); Potassium 4.9 mmol/L (3.5-5.1); Sodium 129 mmol/L (137-145)
[2023-07-05 11:46] LABS: Glucose,Whole Blood 232 mg/dL (70-110)
[2023-07-05 11:46] LABS: Macrocytosis Marked; Platelet Count 61 k/uL (150-450)
--- NOTE | 2023-07-05 15:21 | P.PN ---
Objective - Vital Signs Vital signs: Vital Signs Temp 97.3 F L 07/05/23 08:00 Pulse 68 07/05/23 12:06 Resp 20 07/05/23 11:46 BP 105/56 07/05/23 11:46 Pulse Ox 97 07/05/23 11:46 FiO2 21 07/05/23 09:14 Intake & Output 07/04/23 07/05/23 07/05/23 18:59 06:59 18:59 Intake Total 180 240 Output Total 200 150 Balance 180 -200 90 Weight 85.729 kg Intake: Oral 180 240 Output: Urine 200 150 Coude 100 Other: Voiding Method Urinal - Labs CBC & Chem 7: 07/05/23 10:56 07/05/23 10:56 Labs: Abnormal Lab Results - Last 24 Hours (Table) 07/04/23 07/04/23 07/04/23 Range/Units 13:48 13:48 13:48 RBC (4.30-5.90) m/uL Hgb (13.0-17.5) gm/dL Hct (39.0-53.0) % MCV (80.0-100.0) fL MCH (25.0-35.0) pg RDW (11.5-15.5) % Plt Count (150-450) k/uL Lymphocytes # (1.0-4.8) k/uL Macrocytosis Sodium (137-145) mmol/L BUN (9-20) mg/dL Creatinine (0.66-1.25) mg/dL Glucose (74-99) mg/dL POC Glucose (mg/dL) (70-110) mg/dL Calcium (8.4-10.2) mg/dL Iron 48 L (65-175) UG/DL TIBC 185 L (228-460) UG/DL Transferrin 132.0 L (204.0-354.0) mg/dL Ferritin 325.0 H (22.0-322.0) ng/mL Vitamin B12 1066.0 H (200.0-944.0) pg/mL Folate 3.60 L (4.40-31.00) ng/mL Copper 323 L (665-1480) ug/L 07/04/23 07/04/23 07/05/23 Range/Units 16:32 20:36 06:18 RBC (4.30-5.90) m/uL Hgb (13.0-17.5) gm/dL Hct (39.0-53.0) % MCV (80.0-100.0) fL MCH (25.0-35.0) pg RDW (11.5-15.5) % Plt Count (150-450) k/uL Lymphocytes # (1.0-4.8) k/uL Macrocytosis Sodium (137-145) mmol/L BUN (9-20) mg/dL Creatinine (0.66-1.25) mg/dL Glucose (74-99) mg/dL POC Glucose (mg/dL) 141 H 192 H 154 H (70-110) mg/dL Calcium (8.4-10.2) mg/dL Iron (65-175) UG/DL TIBC (228-460) UG/DL Transferrin (204.0-354.0) mg/dL Ferritin (22.0-322.0) ng/mL Vitamin B12 (200.0-944.0) pg/mL Folate (4.40-31.00) ng/mL Copper (665-1480) ug/L 07/05/23 07/05/23 07/05/23 Range/Units 10:56 10:56 11:44 RBC 2.07 L (4.30-5.90) m/uL Hgb 7.9 L (13.0-17.5) gm/dL Hct 24.5 L (39.0-53.0) % MCV 118.2 H (80.0-100.0) fL MCH 38.1 H (25.0-35.0) pg RDW 20.2 H (11.5-15.5) % Plt Count 61 L (150-450) k/uL Lymphocytes # 0.3 L (1.0-4.8) k/uL Macrocytosis Marked A Sodium 129 L (137-145) mmol/L BUN 50 H (9-20) mg/dL Creatinine 1.52 H (0.66-1.25) mg/dL Glucose 184 H (74-99) mg/dL POC Glucose (mg/dL) 232 H (70-110) mg/dL Calcium 6.6 L (8.4-10.2) mg/dL Iron (65-175) UG/DL TIBC (228-460) UG/DL Transferrin (204.0-354.0) mg/dL Ferritin (22.0-322.0) ng/mL Vitamin B12 (200.0-944.0) pg/mL Folate (4.40-31.00) ng/mL Copper (665-1480) ug/L Assessment and Plan (1) Bicytopenia Current Visit: Yes Status: Acute Priority: High Code(s): D75.89 - OTHER SPECIFIED DISEASES OF BLOOD AND BLOOD-FORMING ORGANS SNOMED Code(s): 05569823 (2) SAHARA (acute kidney injury) Current Visit: Yes Status: Acute Priority: High Code(s): N17.9 - ACUTE KIDNEY FAILURE, UNSPECIFIED SNOMED Code(s): 20920473 (3) NSTEMI (non-ST elevated myocardial infarction) Current Visit: Yes Status: Acute Priority: High Code(s): I21.4 - NON-ST ELEVATION (NSTEMI) MYOCARDIAL INFARCTION SNOMED Code(s): 83449690 Plan: Bicytopenia/Macrocytosis: -Hx of alcohol abuse and cirrhosis -Upon trending labs, mild anemia noted since 05/2021. CBC revealed macrocytic normochromic anemia with marked macrocytosis. WBC 2.3, hemoglobin 7.9, MCV 1 18.5, platelets 63,000. Lymphocytopenia noted on differential otherwise unremarkable. Received 1 unit PRBCs on 07/03 -CT chest abdomen pelvis revealed gas and fluid distention of the proximal to mid esophagus. Distal esophagus is decompressed. Questionable small vascular structure is noted adjacent to the distal thoracic esophagus, subtle varicosities not excluded. Abnormal lobulated contours to the liver appear more prominent from previous examination, findings highly suspicious for cirrhosis. Moderate ascites noted throughout the abdomen and pelvis. No loculation noted. No bowel obstruction. No pneumoperitoneum. And superficial subcutaneous edema and fat stranding throughout the soft tissues of the abdomen and pelvis consistent with anasarca -Denies any acute episodes of bleeding. Stool occult pending -Anemia workup and HIV and acute hepatitis panel ordered to r/o other etiologies of cytopenias. Acute hepatitis panel and HIV negative. No vitamin B12 deficiency noted. Folate 3.6, supplementation ordered. Iron saturation 25%, ferritin 325, however, these labs were drawn after patient was given blood transfusion. Requested lab to repeat these on pretransfusion blood, results pending -Thyroid studies revealed subclinical hypothyroidism -Underlying anemia likely exacerbated by acute inflammation/SAHARA, however anemia r/t blood loss is also in differential. No reported episodes of rectal bleeding/melena, but pt has not had colonoscopy in approx 10 years. As well as possible esophageal varices noted on CT scan. Recommend GI f/u for further evaluation/management. Also recommend paracentesis to r/o underlying infection/SBP -Macrocytosis likely r/t underlying history of ETOH abuse and liver disease -Please transfuse for hemoglobin less than 7 or if symptomatic, and for platelets less than 10,000 or if symptomatic -CBC daily NSTEMI: -Serial troponins elevated -Heparin started but d/c due to anemia -Cardiology following SAHARA: -Creatinine elevated at 1.68, previously at 0.7 in 01/2023. Creatinine is improving -UA revealed mild hematuria, no acute UTI noted -Nephrology following
--- NOTE | 2023-07-05 16:14 | P.PN ---
Subjective Progress Note Date: 07/05/23 Principal diagnosis: Acute hypoxic respiratory failure secondary to acute exacerbation of COPD I am seeing this patient in new consultation today 07/03/2023 after he presented to the emergency room with ongoing and progressively worsening exertional shortness of breath. He is also had intermittent chest pain associated with activity over the last couple months. Patient is a 63-year-old white male with past medical history significant for COPD, chronic ongoing tobacco dependence, diabetes mellitus, alcoholism. Patient was apparently having issues with exertional shortness of breath, weakness, and intermittent chest pain over the last month. Patient describes the chest pain as non focal, intermittent, exacerbated by activity, and usually improves with rest. He denies any history of coronary artery disease. He has not had a recent stress test or heart catheterization. Denies any heart palpitations, lightheadedness, syncope, or lower extremity swelling. Patient's shortness of breath is described as mostly exertional with activity. He does admit to having a nonproductive cough, but states this is not any different from his usual cough. Denies any fevers, chills, myalgias, hemoptysis. Denies any recent travel or sick contacts. He does admit generalized weakness and fatigue. He's had difficulty walking lately. Chest x-ray on arrival to the emergency room did not show any acute infiltrates or evidence of pneumonia. It did show a right basilar pleural plaque and right basilar linear scarring, chronic and unchanged. Patient is currently sitting up in bed, on 2 L/m nasal cannula, in no acute distress. CBC on arrival showed a WBC count of 4.5, hemoglobin 7.8, hematocrit 24.1, platelets 105. Patient's anemia is chronic, but his hemoglobin is lower than normal. Denies any melena or silvino blood. Denies any abdominal complaints. Patient recently had an EGD/colonoscopy back in Jan, 2023 for GI bleeding which found mild gastritis and Billings's esophagus. CMP on arrival shows sodium 127, potassium 5.8, chloride 16, BUN 48, creatinine 1.78, glucose 163. Lactic acid level was 3.7 and is down to 3. Troponin elevated at 2.34. Patient denies any current chest pain. He has been started on a heparin infusion per protocol. ECG shows some T-wave inversion in the lateral leads. No acute ST elevation. Patient is being admitted to the cardiac stepdown unit. The patient is seen today 07/04/2023 and follow-up on the selective care unit. He is currently resting comfortably in bed. Awake and alert in no acute distress. Maintaining good O2 saturations in the mid 90s on room air. Afebrile. Hemodynamically stable. He is status post his current hemoglobin is 7.9. White count 2.3. Platelets 63,000. Sodium 126. Potassium 5.6. Bicarb 12. BUN 48. Creatinine 1.68. Glucose 150. He is continued on DuoNeb inhalations, Pulmicort, Solu-Medrol. Remains in the CIWA protocol. Initiated on a bicarbonate drip per nephrology. Patient was reevaluated today on 07/05/2023,, patient is feeling better, he seems to be quite comfortable, he is actually on room air. His WBC count is 4.4 hemoglobin 7.9 electrolytes are normal except for sodium of 129 a uterine is 50 creatinine 1.52, steadily improving compared to a creatinine of 1.852 days ago. Serum cortisol was 8, hip x-rays showed mild right hip osteoarthritis otherwise no significant findings chest x-ray on admission showed chronic changes and no acute pulmonary process. Apparently someone ordered a VQ scan which showed no evidence of pulmonary embolism Objective - Vital Signs Vital signs: Vital Signs Temp 97.3 F L 07/05/23 08:00 Pulse 68 07/05/23 12:06 Resp 20 07/05/23 11:46 BP 105/56 07/05/23 11:46 Pulse Ox 97 07/05/23 11:46 FiO2 21 07/05/23 09:14 Intake & Output 07/04/23 07/05/23 07/05/23 18:59 06:59 18:59 Intake Total 180 240 Output Total 200 150 Balance 180 -200 90 Weight 85.729 kg Intake: Oral 180 240 Output: Urine 200 150 Coude 100 Other: Voiding Method Urinal - Exam Physical Exam: Revealed a 63-year-old white male in no distress on room air Head: Atraumatic, normocephalic. HEENT:[Neck is supple.] [No neck masses.] [No thyromegaly.] [No JVD.] Chest: [Clear throughout, no crackles, no rhonchi, no wheezes.] Cardiac Exam: [Normal S1 and S2, no S3 gallop, no murmur.] Abdomen: [Soft, nontender, no megaly, no rebound, no guarding, normal bowel sounds.] Extremities: [No clubbing, trace of bipedal edema, no cyanosis.] Neurological Exam: [No focal neurologic deficit.] Alert oriented 3 psychiatric: Normal mood affect and normal mental status. Skin: No rash - Labs CBC & Chem 7: 07/05/23 10:56 07/05/23 10:56 Labs: Abnormal Lab Results - Last 24 Hours (Table) 07/04/23 07/04/23 07/04/23 Range/Units 13:48 13:48 13:48 RBC (4.30-5.90) m/uL Hgb (13.0-17.5) gm/dL Hct (39.0-53.0) % MCV (80.0-100.0) fL MCH (25.0-35.0) pg RDW (11.5-15.5) % Plt Count (150-450) k/uL Lymphocytes # (1.0-4.8) k/uL Macrocytosis Sodium (137-145) mmol/L BUN (9-20) mg/dL Creatinine (0.66-1.25) mg/dL Glucose (74-99) mg/dL POC Glucose (mg/dL) (70-110) mg/dL Calcium (8.4-10.2) mg/dL Iron 48 L (65-175) UG/DL TIBC 185 L (228-460) UG/DL Transferrin 132.0 L (204.0-354.0) mg/dL Ferritin 325.0 H (22.0-322.0) ng/mL Vitamin B12 1066.0 H (200.0-944.0) pg/mL Folate 3.60 L (4.40-31.00) ng/mL Copper 323 L (665-1480) ug/L 07/04/23 07/04/23 07/05/23 Range/Units 16:32 20:36 06:18 RBC (4.30-5.90) m/uL Hgb (13.0-17.5) gm/dL Hct (39.0-53.0) % MCV (80.0-100.0) fL MCH (25.0-35.0) pg RDW (11.5-15.5) % Plt Count (150-450) k/uL Lymphocytes # (1.0-4.8) k/uL Macrocytosis Sodium (137-145) mmol/L BUN (9-20) mg/dL Creatinine (0.66-1.25) mg/dL Glucose (74-99) mg/dL POC Glucose (mg/dL) 141 H 192 H 154 H (70-110) mg/dL Calcium (8.4-10.2) mg/dL Iron (65-175) UG/DL TIBC (228-460) UG/DL Transferrin (204.0-354.0) mg/dL Ferritin (22.0-322.0) ng/mL Vitamin B12 (200.0-944.0) pg/mL Folate (4.40-31.00) ng/mL Copper (665-1480) ug/L 07/05/23 07/05/23 07/05/23 Range/Units 10:56 10:56 11:44 RBC 2.07 L (4.30-5.90) m/uL Hgb 7.9 L (13.0-17.5) gm/dL Hct 24.5 L (39.0-53.0) % MCV 118.2 H (80.0-100.0) fL MCH 38.1 H (25.0-35.0) pg RDW 20.2 H (11.5-15.5) % Plt Count 61 L (150-450) k/uL Lymphocytes # 0.3 L (1.0-4.8) k/uL Macrocytosis Marked A Sodium 129 L (137-145) mmol/L BUN 50 H (9-20) mg/dL Creatinine 1.52 H (0.66-1.25) mg/dL Glucose 184 H (74-99) mg/dL POC Glucose (mg/dL) 232 H (70-110) mg/dL Calcium 6.6 L (8.4-10.2) mg/dL Iron (65-175) UG/DL TIBC (228-460) UG/DL Transferrin (204.0-354.0) mg/dL Ferritin (22.0-322.0) ng/mL Vitamin B12 (200.0-944.0) pg/mL Folate (4.40-31.00) ng/mL Copper (665-1480) ug/L Assessment and Plan Assessment: Impression: Acute hypoxemic respiratory failure, secondary to acute COPD exacerbation Elevated troponins, being addressed by cardiology Metabolic non-anion gap acidosis Acute kidney injury, creatinine 1.78 Macrocytic anemia Bicytopenia History of alcoholism Diabetes mellitus Subclinical hypothyroidism Chronic ongoing tobacco dependence Chronic low back pain, right hip pain Recommendation: Continue bronchodilators Continue bicarb drip as per nephrology on the case Continue steroids for his COPD Not quite ready for discharge planning We will continue to follow Time with Patient: Less than 30
[2023-07-05] MEDS: HYDROcodone/APAP 7.5-325MG 1 EACH TAB PO PRN (16:35)
[2023-07-05 16:44] LABS: Glucose,Whole Blood 232 mg/dL (70-110)
[2023-07-05 16:48] LABS: % Iron Saturation 41.05 (15.00-50.00)
[2023-07-05] MEDS: FOLIC ACID 1 MG TAB PO SCH (17:29)
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
--- NOTE | 2023-07-05 18:11 | P.PN ---
Subjective Progress Note Date: 07/05/23 63-year-old male with a PMH of type II DM, hypertension, hyperlipidemia, anxiety, alcohol abuse and COPD who presented to the ER because of not feeling well and generalized weakness for the last few weeks. Patient stated that he has been noticing that he has been feeling weak for the last few weeks, comp laining of shortness of breath on exertion. Patient also complaining of intermittent chest pain that is brought on by activity, central in location, pressure-like, improved with rest. Denies any fever or chills. Patient has been having increased weakness. Denies any nausea or vomiting, denies any blood in the stools. Because of the symptoms, patient came to the ER * Initial lab work done in the ER showed WBC 4.5, hemoglobin 7.8, platelet count 105, d-dimer 1.54, sodium 127, potassium 5.8, BUN 48, creatinine 1.78, plasma lactic 3.7 calcium 7.7, phosphorous 6 * EKG done in the ER showed heart rate of 98, no ST segment elevation seen, T- wave inversion seen in lead1,aVL, V5 and V6 * Chest x-ray done in the ER showed chronic changes without new acute pulmonary process * CTA chest abdominal done showed abnormal lobulated appearance of the liver suspicious for cirrhosis. Moderate ascites throughout the abdominal and pelvis. New compression fracture deformity of the superior endplate of L3. Objective - Vital Signs Vital signs: Vital Signs Temp 97.3 F L 07/05/23 08:00 Pulse 68 07/05/23 12:06 Resp 20 07/05/23 11:46 BP 105/56 07/05/23 11:46 Pulse Ox 97 07/05/23 11:46 FiO2 21 07/05/23 09:14 Intake & Output 07/04/23 07/05/23 07/05/23 18:59 06:59 18:59 Intake Total 180 240 Output Total 200 150 Balance 180 -200 90 Weight 85.729 kg Intake: Oral 180 240 Output: Urine 200 150 Coude 100 Other: Voiding Method Urinal - Exam GENERAL: The patient is alert and oriented x3, ill appearance, pale HEENT: Pupils are round and equally reacting to light. EOMI. CARDIOVASCULAR: S1 and S2 present. No murmurs, rubs, or gallops. PULMONARY: Chest is clear to auscultation, no wheezing or crackles. ABDOMEN: Soft, nontender, distended MUSCULOSKELETAL: No joint swelling or deformity. EXTREMITIES: 1+ pitting edema lower extremities bilaterally NEUROLOGICAL: Gross neurological examination did not reveal any focal deficits. SKIN: No rashes. - Labs CBC & Chem 7: 07/05/23 10:56 07/05/23 10:56 Labs: Abnormal Lab Results - Last 24 Hours (Table) 07/04/23 07/04/23 07/04/23 Range/Units 13:48 13:48 16:32 RBC (4.30-5.90) m/uL Hgb (13.0-17.5) gm/dL Hct (39.0-53.0) % MCV (80.0-100.0) fL MCH (25.0-35.0) pg RDW (11.5-15.5) % Plt Count (150-450) k/uL Lymphocytes # (1.0-4.8) k/uL Macrocytosis Sodium (137-145) mmol/L BUN (9-20) mg/dL Creatinine (0.66-1.25) mg/dL Glucose (74-99) mg/dL POC Glucose (mg/dL) 141 H (70-110) mg/dL Calcium (8.4-10.2) mg/dL Iron 48 L (65-175) UG/DL TIBC 185 L (228-460) UG/DL Transferrin 132.0 L (204.0-354.0) mg/dL Ferritin 325.0 H (22.0-322.0) ng/mL Vitamin B12 1066.0 H (200.0-944.0) pg/mL Folate 3.60 L (4.40-31.00) ng/mL 07/04/23 07/05/23 07/05/23 Range/Units 20:36 06:18 10:56 RBC 2.07 L (4.30-5.90) m/uL Hgb 7.9 L (13.0-17.5) gm/dL Hct 24.5 L (39.0-53.0) % MCV 118.2 H (80.0-100.0) fL MCH 38.1 H (25.0-35.0) pg RDW 20.2 H (11.5-15.5) % Plt Count 61 L (150-450) k/uL Lymphocytes # 0.3 L (1.0-4.8) k/uL Macrocytosis Marked A Sodium (137-145) mmol/L BUN (9-20) mg/dL Creatinine (0.66-1.25) mg/dL Glucose (74-99) mg/dL POC Glucose (mg/dL) 192 H 154 H (70-110) mg/dL Calcium (8.4-10.2) mg/dL Iron (65-175) UG/DL TIBC (228-460) UG/DL Transferrin (204.0-354.0) mg/dL Ferritin (22.0-322.0) ng/mL Vitamin B12 (200.0-944.0) pg/mL Folate (4.40-31.00) ng/mL 07/05/23 07/05/23 Range/Units 10:56 11:44 RBC (4.30-5.90) m/uL Hgb (13.0-17.5) gm/dL Hct (39.0-53.0) % MCV (80.0-100.0) fL MCH (25.0-35.0) pg RDW (11.5-15.5) % Plt Count (150-450) k/uL Lymphocytes # (1.0-4.8) k/uL Macrocytosis Sodium 129 L (137-145) mmol/L BUN 50 H (9-20) mg/dL Creatinine 1.52 H (0.66-1.25) mg/dL Glucose 184 H (74-99) mg/dL POC Glucose (mg/dL) 232 H (70-110) mg/dL Calcium 6.6 L (8.4-10.2) mg/dL Iron (65-175) UG/DL TIBC (228-460) UG/DL Transferrin (204.0-354.0) mg/dL Ferritin (22.0-322.0) ng/mL Vitamin B12 (200.0-944.0) pg/mL Folate (4.40-31.00) ng/mL Assessment and Plan Assessment: * Status post fall with compression fracture of L3 spine * Elevated troponin type II IL * COPD exacerbation with acute hypoxic respiratory failure * Acute hyponatremia * Hyperkalemia * Acute kidney injury secondary to ATN * Metabolic acidosis * Transient hypotension * Pancytopenia * Cirrhotic liver seen on computed tomography scan * Consultation obtained from nephrology, cardiology and orthopedic * Patient will need physical therapy occupational therapy evaluation. Patient o n the TLSO brace * Regards to elevated troponin seen by cardiology, heparin was discontinued secondary to anemia * In regards to liver cirrhosis will need outpatient follow PCP and gastroenterology * Regards to pancytopenia will need follow-up with hematology oncology consulted while inpatient * CODE STATUS is full code
[2023-07-05 19:59] LABS: Glucose,Whole Blood 208 mg/dL (70-110)
[2023-07-05] MEDS: ALPRAZolam 0.5 MG TAB PO SCH (21:01)
[2023-07-06] MEDS: SODIUM CHLORIDE 0.45% 1,000 ML with SODIUM BICARB (1 MEQ/ML) 150 ML IV SCH ×4 (00:36→16:58)
[2023-07-06] MEDS: methylPREDNISolone SOD SUCCI 125 MG/2 ML VIAL IV SCH ×3 (00:38→12:21)
[2023-07-06 05:59] LABS: Methylmalonic Acid 0.4 umol/L (<0.40)
[2023-07-06 06:14] LABS: Glucose,Whole Blood 188 mg/dL (70-110)
[2023-07-06] MEDS: INSULIN ASPART (NovoLOG) 100 UNIT/ML VIAL SQ SCH ×4 (06:16→20:12)
[2023-07-06] MEDS: MIDODRINE 5 MG TAB PO SCH ×3 (06:16→16:58)
[2023-07-06] MEDS: SYMBICORT 160-4.5 MCG INHALER INHALATION SCH ×2 (08:11→19:03)
[2023-07-06] MEDS: IPRATROPIUM-ALBUTEROL 3 ML NEB INHALATION SCH ×4 (08:12→19:03)
[2023-07-06] MEDS: CHOLECALCIFEROL 25 MCG (1000 IU) TABLET PO SCH (08:43)
[2023-07-06] MEDS: METOPROLOL TARTRATE 12.5 MG TAB PO SCH ×2 (08:43→20:12)
[2023-07-06] MEDS: THIAMINE 100 MG TAB PO SCH (08:43)
[2023-07-06] MEDS: FUROSEMIDE 40 MG TAB PO SCH (08:43)
[2023-07-06] MEDS: FOLIC ACID 1 MG TAB PO SCH (08:43)
[2023-07-06] MEDS: HYDROcodone/APAP 7.5-325MG 1 EACH TAB PO PRN ×2 (08:44→20:11)
[2023-07-06 09:36] LABS: Anisocytosis Slight; Basophils % (A) 0 %; Eosinophils % (A) 0 %; HCT 24.5 % (39.0-53.0); Hypochromasia Slight; Lymphocytes # (A) 0.2 k/uL (1.0-4.8); Lymphocytes % (A) 6 %; MCH 38.5 pg (25.0-35.0); MCHC 32.5 g/dL (31.0-37.0); MCV 118.3 fL (80.0-100.0); Macrocytosis Marked; Mean Platelet Volume 9.1; Monocytes # (A) 0.1 k/uL (0-1.0); Monocytes % (A) 3 %; Neutrophils # (A) 2.7 k/uL (1.3-7.7); Neutrophils % (A) 90 %; RBC 2.07 m/uL (4.30-5.90); RDW 19.5 % (11.5-15.5); WBC 2.9 k/uL (3.8-10.6)
[2023-07-06 09:43] LABS: Platelet Count 66 k/uL (150-450)
[2023-07-06] MEDS ORDERED: COSYNTROPIN 0.25 MG VIAL IVP ONE (09:49)
--- NOTE | 2023-07-06 09:49 | P.PN ---
Subjective Patient is seen for follow-up for acute kidney injury. He is currently maintained on bicarb drip for metabolic acidosis. Patient also had hyponatr emia. No significant complaints. Overall feeling better Patient has been voiding No obstruction noted on CT of the abdomen. No significant complaints today. Labs are pending from today Objective - Vital Signs Vital signs: Vital Signs Temp 98.1 F 07/05/23 20:04 Pulse 86 07/06/23 04:00 Resp 16 07/06/23 04:00 BP 83/50 07/06/23 04:00 Pulse Ox 92 L 07/06/23 04:00 FiO2 21 07/05/23 09:14 Intake & Output 07/05/23 07/06/23 07/06/23 18:59 06:59 18:59 Intake Total 1140 Output Total 150 100 Balance 990 -100 Intake: IV 900 Sodium Chloride 0.45% 1, 900 000 ml @ 75 mls/hr IV . 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 exam grossly intact - Labs CBC & Chem 7: 07/06/23 08:57 07/05/23 10:56 Labs: Abnormal Lab Results - Last 24 Hours (Table) 07/02/23 07/04/23 07/05/23 Range/Units 21:42 13:48 10:56 WBC (3.8-10.6) k/uL RBC 2.07 L (4.30-5.90) m/uL Hgb 7.9 L (13.0-17.5) gm/dL Hct 24.5 L (39.0-53.0) % MCV 118.2 H (80.0-100.0) fL MCH 38.1 H (25.0-35.0) pg RDW 20.2 H (11.5-15.5) % Plt Count 61 L (150-450) k/uL Lymphocytes # 0.3 L (1.0-4.8) k/uL Macrocytosis Marked A Sodium (137-145) mmol/L BUN (9-20) mg/dL Creatinine (0.66-1.25) mg/dL Glucose (74-99) mg/dL POC Glucose (mg/dL) (70-110) mg/dL Calcium (8.4-10.2) mg/dL TIBC 190 L (228-460) UG/DL Transferrin 136.0 L (204.0-354.0) mg/dL Ferritin 325.0 H (22.0-322.0) ng/mL Copper 323 L (665-1480) ug/L 07/05/23 07/05/23 07/05/23 Range/Units 10:56 11:44 16:42 WBC (3.8-10.6) k/uL RBC (4.30-5.90) m/uL Hgb (13.0-17.5) gm/dL Hct (39.0-53.0) % MCV (80.0-100.0) fL MCH (25.0-35.0) pg RDW (11.5-15.5) % Plt Count (150-450) k/uL Lymphocytes # (1.0-4.8) k/uL Macrocytosis Sodium 129 L (137-145) mmol/L BUN 50 H (9-20) mg/dL Creatinine 1.52 H (0.66-1.25) mg/dL Glucose 184 H (74-99) mg/dL POC Glucose (mg/dL) 232 H 232 H (70-110) mg/dL Calcium 6.6 L (8.4-10.2) mg/dL TIBC (228-460) UG/DL Transferrin (204.0-354.0) mg/dL Ferritin (22.0-322.0) ng/mL Copper (665-1480) ug/L 07/05/23 07/06/23 07/06/23 Range/Units 19:58 06:12 08:57 WBC 2.9 L (3.8-10.6) k/uL RBC 2.07 L (4.30-5.90) m/uL Hgb 8.0 L (13.0-17.5) gm/dL Hct 24.5 L (39.0-53.0) % MCV 118.3 H (80.0-100.0) fL MCH 38.5 H (25.0-35.0) pg RDW 19.5 H (11.5-15.5) % Plt Count 66 L (150-450) k/uL Lymphocytes # (1.0-4.8) k/uL Macrocytosis Marked A Sodium (137-145) mmol/L BUN (9-20) mg/dL Creatinine (0.66-1.25) mg/dL Glucose (74-99) mg/dL POC Glucose (mg/dL) 208 H 188 H (70-110) mg/dL Calcium (8.4-10.2) mg/dL TIBC (228-460) UG/DL Transferrin (204.0-354.0) mg/dL Ferritin (22.0-322.0) ng/mL Copper (665-1480) ug/L Assessment and Plan Assessment: 1. Acute kidney injury mostly ATN associated with hypotension, currently nonoliguric. UA is benign. No evidence of obstruction on CT of the abdomen 2. Non-gap metabolic acidosis associated with acute kidney injury and possibly related to the IV fluids as well. No history of significant diarrhea. 3. Hyperkalemia associated with acute kidney injury and metabolic acidosis 4. Hyponatremia associated with underlying liver cirrhosis 5. Hypotension, cortisol level was 8 , currently on midodrine 6. Anemia being followed by hematology. Also noted to have leukopenia and thrombocytopenia, most likely related to EtOH Plan: Continue with midodrine Decrease bicarb drip to 50 mL an hour Repeat labs today and in a.m. Recommend cosyntropin stimulation test to rule out adrenal insufficiency.
[2023-07-06 09:58] LABS: African American GFR (CKD) 46 (>60 ml/min/1.73 sqM); Anion Gap 5 mmol/L; Blood Urea Nitrogen 55 mg/dL (9-20); Calcium 6.9 mg/dL (8.4-10.2); Carbon Dioxide 23 mmol/L (22-30); Chloride 101 mmol/L (98-107); Glucose 189 mg/dL (74-99); Non-African American GFR(CKD) 40 (>60 ml/min/1.73 sqM); Potassium 5.4 mmol/L (3.5-5.1); Sodium 129 mmol/L (137-145)
[2023-07-06 11:58] LABS: Glucose,Whole Blood 237 mg/dL (70-110)
--- NOTE | 2023-07-06 14:19 | P.PN ---
Subjective Progress Note Date: 07/06/23 Principal diagnosis: Acute hypoxic respiratory failure secondary to acute exacerbation of COPD I am seeing this patient in new consultation today 07/03/2023 after he presented to the emergency room with ongoing and progressively worsening exertional shortness of breath. He is also had intermittent chest pain associated with activity over the last couple months. Patient is a 63-year-old white male with past medical history significant for COPD, chronic ongoing tobacco dependence, diabetes mellitus, alcoholism. Patient was apparently having issues with exertional shortness of breath, weakness, and intermittent chest pain over the last month. Patient describes the chest pain as non focal, intermittent, exacerbated by activity, and usually improves with rest. He denies any history of coronary artery disease. He has not had a recent stress test or heart catheterization. Denies any heart palpitations, lightheadedness, syncope, or lower extremity swelling. Patient's shortness of breath is described as mostly exertional with activity. He does admit to having a nonproductive cough, but states this is not any different from his usual cough. Denies any fevers, chills, myalgias, hemoptysis. Denies any recent travel or sick contacts. He does admit generalized weakness and fatigue. He's had difficulty walking lately. Chest x-ray on arrival to the emergency room did not show any acute infiltrates or evidence of pneumonia. It did show a right basilar pleural plaque and right basilar linear scarring, chronic and unchanged. Patient is currently sitting up in bed, on 2 L/m nasal cannula, in no acute distress. CBC on arrival showed a WBC count of 4.5, hemoglobin 7.8, hematocrit 24.1, platelets 105. Patient's anemia is chronic, but his hemoglobin is lower than normal. Denies any melena or silvino blood. Denies any abdominal complaints. Patient recently had an EGD/colonoscopy back in Jan, 2023 for GI bleeding which found mild gastritis and Billings's esophagus. CMP on arrival shows sodium 127, potassium 5.8, chloride 16, BUN 48, creatinine 1.78, glucose 163. Lactic acid level was 3.7 and is down to 3. Troponin elevated at 2.34. Patient denies any current chest pain. He has been started on a heparin infusion per protocol. ECG shows some T-wave inversion in the lateral leads. No acute ST elevation. Patient is being admitted to the cardiac stepdown unit. The patient is seen today 07/04/2023 and follow-up on the selective care unit. He is currently resting comfortably in bed. Awake and alert in no acute distress. Maintaining good O2 saturations in the mid 90s on room air. Afebrile. Hemodynamically stable. He is status post his current hemoglobin is 7.9. White count 2.3. Platelets 63,000. Sodium 126. Potassium 5.6. Bicarb 12. BUN 48. Creatinine 1.68. Glucose 150. He is continued on DuoNeb inhalations, Pulmicort, Solu-Medrol. Remains in the CIWA protocol. Initiated on a bicarbonate drip per nephrology. Patient was reevaluated today on 07/05/2023,, patient is feeling better, he seems to be quite comfortable, he is actually on room air. His WBC count is 4.4 hemoglobin 7.9 electrolytes are normal except for sodium of 129 a uterine is 50 creatinine 1.52, steadily improving compared to a creatinine of 1.852 days ago. Serum cortisol was 8, hip x-rays showed mild right hip osteoarthritis otherwise no significant findings chest x-ray on admission showed chronic changes and no acute pulmonary process. Apparently someone ordered a VQ scan which showed no evidence of pulmonary embolism Patient was reevaluated today on 07/06/2023, pulmonary-nicole the patient is doing great, he is asymptomatic no cough no wheezing no shortness of breath, and the patient remains on room air. Patient is maintained on bicarb drip for his metabolic acidosis and this is being addressed by nephrology on the case. CT of the abdomen showed no obstruction and no hydronephrosis. Patient has been steadily improving. His cortisol level was 8, however the patient was on methylprednisolone at 60 mg IV push every 6 hours, this is considered relatively extremely low cortisol, and the patient may have adrenal insufficiency. May have to seriously consider Cortrosyn stimulation test on this patient for 3 with Solu-Cortef, for presumptive adrenal insufficiency considering the cortisol level is that low in spite of being on methylprednisolone. Especially with the blood pressure being soft and seems to be on the low side today's labs continued to show hyponatremia and hyperkalemia with BUN of 57 creatinine 1.79 with WC out of 2.9 hemoglobin of 8 Objective - Vital Signs Vital signs: Vital Signs Temp 97.6 F 07/06/23 08:35 Pulse 69 07/06/23 12:20 Resp 18 07/06/23 12:20 BP 104/61 07/06/23 12:20 Pulse Ox 95 07/06/23 12:20 FiO2 21 07/05/23 09:14 Intake & Output 07/05/23 07/06/23 07/06/23 18:59 06:59 18:59 Intake Total 1140 Output Total 150 100 Balance 990 -100 Intake: IV 900 Sodium Chloride 0.45% 1, 900 000 ml @ 75 mls/hr IV . [id number] ADWOA with Sodium Bicarb (1 Meq/ml) 150 ml Rx#:[id number] Oral 240 Output: Urine 150 100 Other: Voiding Method Toilet Toilet Urinal Urinal - Exam Physical Exam: Revealed a 63-year-old white male in no distress on room air, O2 saturations 95% Head: Atraumatic, normocephalic. HEENT:[Neck is supple.] [No neck masses.] [No thyromegaly.] [No JVD.] Chest: [Clear throughout, no crackles, no rhonchi, no wheezes.] Cardiac Exam: [Normal S1 and S2, no S3 gallop, no murmur.] Abdomen: [Soft, nontender, no megaly, no rebound, no guarding, normal bowel sounds.] Extremities: [No clubbing, trace of bipedal edema, no cyanosis.] Neurological Exam: [No focal neurologic deficit.] Alert oriented 3 psychiatric: Normal mood affect and normal mental status. Skin: No rash - Labs CBC & Chem 7: 07/06/23 08:57 07/06/23 08:57 Labs: Abnormal Lab Results - Last 24 Hours (Table) 07/02/23 07/05/23 07/05/23 Range/Units 21:42 16:42 19:58 WBC (3.8-10.6) k/uL RBC (4.30-5.90) m/uL Hgb (13.0-17.5) gm/dL Hct (39.0-53.0) % MCV (80.0-100.0) fL MCH (25.0-35.0) pg RDW (11.5-15.5) % Plt Count (150-450) k/uL Lymphocytes # (1.0-4.8) k/uL Macrocytosis Sodium (137-145) mmol/L Potassium (3.5-5.1) mmol/L BUN (9-20) mg/dL Creatinine (0.66-1.25) mg/dL Glucose (74-99) mg/dL POC Glucose (mg/dL) 232 H 208 H (70-110) mg/dL Calcium (8.4-10.2) mg/dL TIBC 190 L (228-460) UG/DL Transferrin 136.0 L (204.0-354.0) mg/dL Ferritin 325.0 H (22.0-322.0) ng/mL 07/06/23 07/06/23 07/06/23 Range/Units 06:12 08:57 08:57 WBC 2.9 L (3.8-10.6) k/uL RBC 2.07 L (4.30-5.90) m/uL Hgb 8.0 L (13.0-17.5) gm/dL Hct 24.5 L (39.0-53.0) % MCV 118.3 H (80.0-100.0) fL MCH 38.5 H (25.0-35.0) pg RDW 19.5 H (11.5-15.5) % Plt Count 66 L (150-450) k/uL Lymphocytes # 0.2 L (1.0-4.8) k/uL Macrocytosis Marked A Sodium 129 L (137-145) mmol/L Potassium 5.4 H (3.5-5.1) mmol/L BUN 55 H (9-20) mg/dL Creatinine 1.79 H (0.66-1.25) mg/dL Glucose 189 H (74-99) mg/dL POC Glucose (mg/dL) 188 H (70-110) mg/dL Calcium 6.9 L (8.4-10.2) mg/dL TIBC (228-460) UG/DL Transferrin (204.0-354.0) mg/dL Ferritin (22.0-322.0) ng/mL 07/06/23 Range/Units 11:47 WBC (3.8-10.6) k/uL RBC (4.30-5.90) m/uL Hgb (13.0-17.5) gm/dL Hct (39.0-53.0) % MCV (80.0-100.0) fL MCH (25.0-35.0) pg RDW (11.5-15.5) % Plt Count (150-450) k/uL Lymphocytes # (1.0-4.8) k/uL Macrocytosis Sodium (137-145) mmol/L Potassium (3.5-5.1) mmol/L BUN (9-20) mg/dL Creatinine (0.66-1.25) mg/dL Glucose (74-99) mg/dL POC Glucose (mg/dL) 237 H (70-110) mg/dL Calcium (8.4-10.2) mg/dL TIBC (228-460) UG/DL Transferrin (204.0-354.0) mg/dL Ferritin (22.0-322.0) ng/mL Assessment and Plan Assessment: Impression: Acute hypoxemic respiratory failure, secondary to acute COPD exacerbation, resolved, lungs are clear today and the patient is on room air Elevated troponins, being addressed by cardiology Metabolic non-anion gap acidosis Acute kidney injury, creatinine 1.78 Macrocytic anemia Bicytopenia History of alcoholism Diabetes mellitus Subclinical hypothyroidism Chronic ongoing tobacco dependence Chronic low back pain, right hip pain Possible and the insufficiency with a relatively low cortisol level in spite of being on methylprednisolone. Repeat serum cortisol /Consider Cortrosyn stimulation test Recommendation: Continue bronchodilators Continue bicarb drip as per nephrology on the case Continue steroids for his COPD, transition to prednisone Not quite ready for discharge planning We will continue to follow Time with Patient: Less than 30
--- NOTE | 2023-07-06 14:28 | CA ---
Transthoracic Echo Report Name: Nathaniel Abarca Age: 63 Gender: M : 1960 Exam Date: 07/06/2023 08:01 Exam Location: [place] [facility] Ht (in): 74 Wt (lb): 189 Ordering Physician: Louie Garay MD ([id number]) Attending/Referring Phys: Information Technology Technician Adelina Boyd [facility] Procedure CPT: Indications: chf Cardiac Hx: Technical Quality: Technically difficult study Contrast 1: Lumason Total Dose (mL): 5 Contrast 2: Total Dose (mL): MEASUREMENTS (Male / Female) Normal Values 2D ECHO LV Diastolic Diameter PLAX 4.9 cm 4.2 - 5.9 / 3.9 - 5.3 cm LV Systolic Diameter PLAX 3.5 cm IVS Diastolic Thickness 0.8 cm 0.6 - 1.0 / 0.6 - 0.9 cm LVPW Diastolic Thickness 0.9 cm 0.6 - 1.0 / 0.6 - 0.9 cm LV Relative Wall Thickness 0.4 LVOT Diameter 2.0 cm Ascending Aorta Diameter 3.3 cm M-MODE Aortic Root Diameter MM 3.3 cm LA Systolic Diameter MM 4.4 cm LA Ao Ratio MM 1.3 AV Cusp Separation MM 2.3 cm DOPPLER AV Peak Velocity 112.2 cm/s AV Peak Gradient 5.0 mmHg AV Mean Velocity 66.0 cm/s AV Mean Gradient 2.2 mmHg AV Velocity Time Integral 22.5 cm LVOT Peak Velocity 79.2 cm/s LVOT Peak Gradient 2.5 mmHg LVOT Velocity Time Integral 17.1 cm LVOT Stroke Volume 55.8 cm??? LVOT Stroke Volume Index 26.3 ml/m??? LVOT Cardiac Index 1713.2 cm???/min???m??? AV Area Cont Eq vti 2.5 cm??? AV Area Cont Eq pk 2.3 cm??? MR Peak Velocity 469.6 cm/s MR Peak Gradient 88.2 mmHg Mitral E Point Velocity 106.6 cm/s Mitral A Point Velocity 81.1 cm/s Mitral E to A Ratio 1.3 MV Deceleration Time 221.6 ms LV E' Lateral Velocity 13.7 cm/s Mitral E to LV E' Lateral Ratio 7.8 LV E' Septal Velocity 9.7 cm/s Mitral E to LV E' Septal Ratio 11.1 Right Atrial Pressure 8.0 mmHg FINDINGS Left Ventricle Left ventricular wall thickness normal. Left ventricular cavity size normal. Low normal left ventricular systolic function. Left ventricular ejection fraction is estimated at 50-55%. Hypokinetic inferior wall. Hypokinetic inferoseptum. Right Ventricle Normal right ventricular size. Unable to estimate the right ventricular systolic pressure. Right Atrium Normal right atrial size. Left Atrium Normal left atrial size. Mitral Valve Mitral valve thickened. Moderate mitral regurgitation. Aortic Valve Trileaflet aortic valve. Thickened aortic valve without stenosis. No aortic regurgitation. Tricuspid Valve Structurally normal tricuspid valve. No tricuspid regurgitation. Pulmonic Valve Pulmonic valve not well visualized. Pericardium No pericardial effusion. Echo free space anterior to the right ventricle likely represents a fat pad. Aorta Normal size aortic root and proximal ascending aorta. CONCLUSIONS Technically difficult study. Left ventricular ejection fraction is estimated at 50-55%. Hypokinetic inferior wall. Hypokinetic inferoseptum. Moderate mitral regurgitation. Previewed by: Dr Louie Garay (Electronically Signed) Final Date: 06 July 2023 14:27
[2023-07-06 17:18] LABS: Glucose,Whole Blood 194 mg/dL (70-110)
[2023-07-06] MEDS ORDERED: CALCIUM CARBONATE 500 MG CHEWABLE PO PRN (17:42)
--- NOTE | 2023-07-06 19:33 | P.PN ---
Subjective Progress Note Date: 07/06/23 63-year-old male with a PMH of type II DM, hypertension, hyperlipidemia, anxiety, alcohol abuse and COPD who presented to the ER because of not feeling well and generalized weakness for the last few weeks. Patient stated that he has been noticing that he has been feeling weak for the last few weeks, comp laining of shortness of breath on exertion. Patient also complaining of intermittent chest pain that is brought on by activity, central in location, pressure-like, improved with rest. Denies any fever or chills. Patient has been having increased weakness. Denies any nausea or vomiting, denies any blood in the stools. Because of the symptoms, patient came to the ER * Initial lab work done in the ER showed WBC 4.5, hemoglobin 7.8, platelet count 105, d-dimer 1.54, sodium 127, potassium 5.8, BUN 48, creatinine 1.78, plasma lactic 3.7 calcium 7.7, phosphorous 6 * EKG done in the ER showed heart rate of 98, no ST segment elevation seen, T- wave inversion seen in lead1,aVL, V5 and V6 * Chest x-ray done in the ER showed chronic changes without new acute pulmonary process * CTA chest abdominal done showed abnormal lobulated appearance of the liver suspicious for cirrhosis. Moderate ascites throughout the abdominal and pelvis. New compression fracture deformity of the superior endplate of L3. * 07/06/2023 Patient is seen and evaluated with family at bedside; complaints of weakness; requiring assistance Vital signs are reviewed and remained stable Lab review shows WBC of 2.9, hemoglobin of 8.2 and platelet count of 66, sodium 129, potassium 5.4, BUN/creatinine of 55/1.79 and blood glucose of 189 -- Sodium level continues to improve and at from 126-129 this morning; slight deterioration of renal function with creatinine of 1.79 up from 1.5 to yesterday; nephrology recommending to continue with current treatment -- Sanchez cytopenia; patient has been evaluated by hematology; likely resulting from alcohol abuse and cirrhosis ------Anemia workup and HIV and acute hepatitis panel ordered to r/o other etiologies of cytopenias. Acute hepatitis panel and HIV negative. No vitamin B12 deficiency noted. Folate 3.6, supplementation ordered. Iron saturation 25%, ferritin 325, however, these labs were drawn after patient was given blood transfusion. Requested lab to repeat these on pretransfusion blood, results pending -Thyroid studies revealed subclinical hypothyroidism -Underlying anemia likely exacerbated by acute inflammation/SAHARA, however anemia r/t blood loss is also in differential. No reported episodes of rectal bleeding/melena, but pt has not had colonoscopy in approx 10 years. As well as possible esophageal varices noted on CT scan. Recommend GI f/u for further evaluation/management. Hematology recommends paracentesis to r/o underlying infection/SBP -Macrocytosis likely r/t underlying history of ETOH abuse and liver disease -transfuse for hemoglobin less than 7 or if symptomatic, and for platelets less than 10,000 or if symptomatic -CBC daily Objective - Vital Signs Vital signs: Vital Signs Temp 97.6 F 07/06/23 08:35 Pulse 72 07/06/23 11:59 Resp 17 07/06/23 08:35 BP 99/64 07/06/23 08:35 Pulse Ox 95 07/06/23 08:35 FiO2 21 07/05/23 09:14 Intake & Output 07/05/23 07/06/23 07/06/23 18:59 06:59 18:59 Intake Total 1140 Output Total 150 100 Balance 990 -100 Intake: IV 900 Sodium Chloride 0.45% 1, 900 000 ml @ 75 mls/hr IV . [id number] ADWOA with Sodium Bicarb (1 Meq/ml) 150 ml Rx#:[id number] Oral 240 Output: Urine 150 100 Other: Voiding Method Toilet Toilet Urinal Urinal - Exam GENERAL: The patient is alert and oriented x3, ill appearance, pale HEENT: Pupils are round and equally reacting to light. EOMI. CARDIOVASCULAR: S1 and S2 present. No murmurs, rubs, or gallops. PULMONARY: Chest is clear to auscultation, no wheezing or crackles. ABDOMEN: Soft, nontender, distended MUSCULOSKELETAL: No joint swelling or deformity. EXTREMITIES: 1+ pitting edema lower extremities bilaterally NEUROLOGICAL: Gross neurological examination did not reveal any focal deficits. SKIN: No rashes. - Labs CBC & Chem 7: 07/06/23 08:57 07/06/23 08:57 Labs: Abnormal Lab Results - Last 24 Hours (Table) 07/02/23 07/04/23 07/05/23 Range/Units 21:42 13:48 16:42 WBC (3.8-10.6) k/uL RBC (4.30-5.90) m/uL Hgb (13.0-17.5) gm/dL Hct (39.0-53.0) % MCV (80.0-100.0) fL MCH (25.0-35.0) pg RDW (11.5-15.5) % Plt Count (150-450) k/uL Lymphocytes # (1.0-4.8) k/uL Macrocytosis Sodium (137-145) mmol/L Potassium (3.5-5.1) mmol/L BUN (9-20) mg/dL Creatinine (0.66-1.25) mg/dL Glucose (74-99) mg/dL POC Glucose (mg/dL) 232 H (70-110) mg/dL Calcium (8.4-10.2) mg/dL TIBC 190 L (228-460) UG/DL Transferrin 136.0 L (204.0-354.0) mg/dL Ferritin 325.0 H (22.0-322.0) ng/mL Copper 323 L (665-1480) ug/L 07/05/23 07/06/23 07/06/23 Range/Units 19:58 06:12 08:57 WBC 2.9 L (3.8-10.6) k/uL RBC 2.07 L (4.30-5.90) m/uL Hgb 8.0 L (13.0-17.5) gm/dL Hct 24.5 L (39.0-53.0) % MCV 118.3 H (80.0-100.0) fL MCH 38.5 H (25.0-35.0) pg RDW 19.5 H (11.5-15.5) % Plt Count 66 L (150-450) k/uL Lymphocytes # 0.2 L (1.0-4.8) k/uL Macrocytosis Marked A Sodium (137-145) mmol/L Potassium (3.5-5.1) mmol/L BUN (9-20) mg/dL Creatinine (0.66-1.25) mg/dL Glucose (74-99) mg/dL POC Glucose (mg/dL) 208 H 188 H (70-110) mg/dL Calcium (8.4-10.2) mg/dL TIBC (228-460) UG/DL Transferrin (204.0-354.0) mg/dL Ferritin (22.0-322.0) ng/mL Copper (665-1480) ug/L 07/06/23 07/06/23 Range/Units 08:57 11:47 WBC (3.8-10.6) k/uL RBC (4.30-5.90) m/uL Hgb (13.0-17.5) gm/dL Hct (39.0-53.0) % MCV (80.0-100.0) fL MCH (25.0-35.0) pg RDW (11.5-15.5) % Plt Count (150-450) k/uL Lymphocytes # (1.0-4.8) k/uL Macrocytosis Sodium 129 L (137-145) mmol/L Potassium 5.4 H (3.5-5.1) mmol/L BUN 55 H (9-20) mg/dL Creatinine 1.79 H (0.66-1.25) mg/dL Glucose 189 H (74-99) mg/dL POC Glucose (mg/dL) 237 H (70-110) mg/dL Calcium 6.9 L (8.4-10.2) mg/dL TIBC (228-460) UG/DL Transferrin (204.0-354.0) mg/dL Ferritin (22.0-322.0) ng/mL Copper (665-1480) ug/L Assessment and Plan Assessment: * Status post fall with compression fracture of L3 spine * Elevated troponin type II MO * COPD exacerbation with acute hypoxic respiratory failure * Acute hyponatremia * Hyperkalemia * Acute kidney injury secondary to ATN * Metabolic acidosis * Transient hypotension * Pancytopenia * Cirrhotic liver seen on computed tomography scan * Consultation obtained from nephrology, cardiology and orthopedic * Patient will need physical therapy occupational therapy evaluation. Patient on the TLSO brace * Regards to elevated troponin seen by cardiology, heparin was discontinued secondary to anemia * In regards to liver cirrhosis will need outpatient follow PCP and gastroenter ology * Regards to pancytopenia will need follow-up with hematology oncology consulted while inpatient * CODE STATUS is full code
[2023-07-06 19:52] LABS: Glucose,Whole Blood 193 mg/dL (70-110)
[2023-07-06] MEDS: ALPRAZolam 0.5 MG TAB PO SCH (20:12)
[2023-07-07] MEDS ORDERED: SODIUM CHLORIDE 0.9% 1,000 ML IV ONE (00:05)
[2023-07-07 06:07] LABS: Glucose,Whole Blood 131 mg/dL (70-110)
[2023-07-07] MEDS: INSULIN ASPART (NovoLOG) 100 UNIT/ML VIAL SQ SCH ×4 (06:22→20:04)
[2023-07-07] MEDS: MIDODRINE 5 MG TAB PO SCH ×3 (06:37→15:54)
[2023-07-07] MEDS: FUROSEMIDE 40 MG TAB PO SCH (08:50)
[2023-07-07] MEDS: FOLIC ACID 1 MG TAB PO SCH (08:50)
[2023-07-07] MEDS: THIAMINE 100 MG TAB PO SCH (08:51)
[2023-07-07] MEDS: METOPROLOL TARTRATE 12.5 MG TAB PO SCH ×2 (08:51→20:08)
[2023-07-07] MEDS: HYDROcodone/APAP 7.5-325MG 1 EACH TAB PO PRN ×2 (08:51→20:12)
[2023-07-07] MEDS: CHOLECALCIFEROL 25 MCG (1000 IU) TABLET PO SCH (08:51)
[2023-07-07] MEDS: SYMBICORT 160-4.5 MCG INHALER INHALATION SCH ×2 (08:55→22:17)
[2023-07-07] MEDS: IPRATROPIUM-ALBUTEROL 3 ML NEB INHALATION SCH ×4 (08:55→22:17)
[2023-07-07] MEDS ORDERED: predniSONE 20 MG TAB PO SCH (09:00)
[2023-07-07 09:40] LABS: African American GFR (CKD) 45 (>60 ml/min/1.73 sqM); Anion Gap 4 mmol/L; Blood Urea Nitrogen 58 mg/dL (9-20); Calcium 7.2 mg/dL (8.4-10.2); Carbon Dioxide 28 mmol/L (22-30); Chloride 102 mmol/L (98-107); Glucose 139 mg/dL (74-99); Non-African American GFR(CKD) 39 (>60 ml/min/1.73 sqM); Potassium 5.3 mmol/L (3.5-5.1); Sodium 134 mmol/L (137-145)
[2023-07-07 09:50] LABS: Anisocytosis Slight; Basophils % (A) 0 %; Eosinophils % (A) 0 %; HCT 26.1 % (39.0-53.0); HGB 8.4 gm/dL (13.0-17.5); Hypochromasia Slight; Lymphocytes # (A) 0.5 k/uL (1.0-4.8); Lymphocytes % (A) 10 %; MCH 37.2 pg (25.0-35.0); Macrocytosis Marked; Mean Platelet Volume 11.4; Monocytes # (A) 0.2 k/uL (0-1.0); Monocytes % (A) 3 %; Neutrophils % (A) 85 %; RBC 2.25 m/uL (4.30-5.90); RDW 19.8 % (11.5-15.5); WBC 4.7 k/uL (3.8-10.6)
[2023-07-07 09:52] LABS: Platelet Count 47 k/uL (150-450)
[2023-07-07 09:53] LABS: MCV 116.2 fL (80.0-100.0)
--- NOTE | 2023-07-07 10:50 | P.PN ---
Subjective Patient is seen for follow-up for acute kidney injury. He is currently maintained on bicarb drip for metabolic acidosis. Patient also had hyponatr emia, now improved. No significant complaints. Overall feeling better Patient has been voiding No obstruction noted on CT of the abdomen. No significant complaints today. urine output not charted accurately. Check post void residual residual as creatinine continues to climb. blood pressure was significantly low with systolic in the 70s yesterday. Patient is maintained on midodrine. Objective - Vital Signs Vital signs: Vital Signs Temp 97.5 F L 07/07/23 08:50 Pulse 74 07/07/23 09:11 Resp 18 07/07/23 08:50 BP 116/70 07/07/23 08:50 Pulse Ox 99 07/07/23 08:50 FiO2 21 07/05/23 09:14 Intake & Output 07/06/23 07/07/23 07/07/23 18:59 06:59 18:59 Intake Total 180 Output Total 200 200 Balance -200 -20 Intake: Oral 180 Output: Urine 200 200 Other: Voiding Method Toilet Toilet Toilet Urinal Urinal Urinal # Voids 1 1 - Exam Patient is awake comfortable not in any acute distress Alert oriented 3 Examination of the heart S1 and S2 Examination of the lungs bilateral breath sounds are heard no crackles or whee zing is heard Abdomen is soft distended nontender Examination of lower extremities shows 1+ edema bilaterally mostly chronic 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[employer]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 grossly intact - Labs CBC & Chem 7: 07/07/23 08:30 07/07/23 08:30 Labs: Abnormal Lab Results - Last 24 Hours (Table) 07/06/23 07/06/23 07/06/23 Range/Units 11:47 16:42 19:49 RBC (4.30-5.90) m/uL Hgb (13.0-17.5) gm/dL Hct (39.0-53.0) % MCV (80.0-100.0) fL MCH (25.0-35.0) pg RDW (11.5-15.5) % Plt Count (150-450) k/uL Lymphocytes # (1.0-4.8) k/uL Macrocytosis Sodium (137-145) mmol/L Potassium (3.5-5.1) mmol/L BUN (9-20) mg/dL Creatinine (0.66-1.25) mg/dL Glucose (74-99) mg/dL POC Glucose (mg/dL) 237 H 194 H 193 H (70-110) mg/dL Calcium (8.4-10.2) mg/dL 07/07/23 07/07/23 07/07/23 Range/Units 06:04 08:30 08:30 RBC 2.25 L (4.30-5.90) m/uL Hgb 8.4 L (13.0-17.5) gm/dL Hct 26.1 L (39.0-53.0) % MCV 116.2 H (80.0-100.0) fL MCH 37.2 H (25.0-35.0) pg RDW 19.8 H (11.5-15.5) % Plt Count 47 L (150-450) k/uL Lymphocytes # 0.5 L (1.0-4.8) k/uL Macrocytosis Marked A Sodium 134 L (137-145) mmol/L Potassium 5.3 H (3.5-5.1) mmol/L BUN 58 H (9-20) mg/dL Creatinine 1.85 H (0.66-1.25) mg/dL Glucose 139 H (74-99) mg/dL POC Glucose (mg/dL) 131 H (70-110) mg/dL Calcium 7.2 L (8.4-10.2) mg/dL Assessment and Plan Assessment: 1. Acute kidney injury mostly ATN associated with hypotension, currently nonoliguric. UA is benign. No evidence of obstruction on CT of the abdomen. Serum creatinine increased further secondary to significantly low blood pressure with systolic blood pressure in the 70s yesterday. 2. Non-gap metabolic acidosis associated with acute kidney injury and possibly related to the IV fluids as well. No history of significant diarrhea. 3. Hyperkalemia associated with acute kidney injury and metabolic acidosis 4. Hyponatremia associated with underlying liver cirrhosis 5. Hypotension, cortisol level was 8 ,but patient was maintained on prednisone. . currently on midodrine 6. Anemia being followed by hematology. Also noted to have leukopenia and thrombocytopenia, most likely related to EtOH Plan: Continue with midodrine DC bicarb drip Add Ringer lactate Repeat labs in a.m.
[2023-07-07 11:59] LABS: Glucose,Whole Blood 146 mg/dL (70-110)
[2023-07-07] MEDS: LACTATED RINGERS 1,000 ML IV SCH (12:20)
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
--- NOTE | 2023-07-07 14:53 | P.PN ---
Subjective Progress Note Date: 07/07/23 Principal diagnosis: Acute hypoxic respiratory failure secondary to acute exacerbation of COPD I am seeing this patient in new consultation today 07/03/2023 after he presented to the emergency room with ongoing and progressively worsening exertional shortness of breath. He is also had intermittent chest pain associated with activity over the last couple months. Patient is a 63-year-old white male with past medical history significant for COPD, chronic ongoing tobacco dependence, diabetes mellitus, alcoholism. Patient was apparently having issues with exertional shortness of breath, weakness, and intermittent chest pain over the last month. Patient describes the chest pain as non focal, intermittent, exacerbated by activity, and usually improves with rest. He denies any history of coronary artery disease. He has not had a recent stress test or heart catheterization. Denies any heart palpitations, lightheadedness, syncope, or lower extremity swelling. Patient's shortness of breath is described as mostly exertional with activity. He does admit to having a nonproductive cough, but states this is not any different from his usual cough. Denies any fevers, chills, myalgias, hemoptysis. Denies any recent travel or sick contacts. He does admit generalized weakness and fatigue. He's had difficulty walking lately. Chest x-ray on arrival to the emergency room did not show any acute infiltrates or evidence of pneumonia. It did show a right basilar pleural plaque and right basilar linear scarring, chronic and unchanged. Patient is currently sitting up in bed, on 2 L/m nasal cannula, in no acute distress. CBC on arrival showed a WBC count of 4.5, hemoglobin 7.8, hematocrit 24.1, platelets 105. Patient's anemia is chronic, but his hemoglobin is lower than normal. Denies any melena or silvino blood. Denies any abdominal complaints. Patient recently had an EGD/colonoscopy back in Jan, 2023 for GI bleeding which found mild gastritis and Billings's esophagus. CMP on arrival shows sodium 127, potassium 5.8, chloride 16, BUN 48, creatinine 1.78, glucose 163. Lactic acid level was 3.7 and is down to 3. Troponin elevated at 2.34. Patient denies any current chest pain. He has been started on a heparin infusion per protocol. ECG shows some T-wave inversion in the lateral leads. No acute ST elevation. Patient is being admitted to the cardiac stepdown unit. The patient is seen today 07/04/2023 and follow-up on the selective care unit. He is currently resting comfortably in bed. Awake and alert in no acute distress. Maintaining good O2 saturations in the mid 90s on room air. Afebrile. Hemodynamically stable. He is status post his current hemoglobin is 7.9. White count 2.3. Platelets 63,000. Sodium 126. Potassium 5.6. Bicarb 12. BUN 48. Creatinine 1.68. Glucose 150. He is continued on DuoNeb inhalations, Pulmicort, Solu-Medrol. Remains in the CIWA protocol. Initiated on a bicarbonate drip per nephrology. Patient was reevaluated today on 07/05/2023,, patient is feeling better, he seems to be quite comfortable, he is actually on room air. His WBC count is 4.4 hemoglobin 7.9 electrolytes are normal except for sodium of 129 a uterine is 50 creatinine 1.52, steadily improving compared to a creatinine of 1.852 days ago. Serum cortisol was 8, hip x-rays showed mild right hip osteoarthritis otherwise no significant findings chest x-ray on admission showed chronic changes and no acute pulmonary process. Apparently someone ordered a VQ scan which showed no evidence of pulmonary embolism Patient was reevaluated today on 07/06/2023, pulmonary-nicole the patient is doing great, he is asymptomatic no cough no wheezing no shortness of breath, and the patient remains on room air. Patient is maintained on bicarb drip for his metabolic acidosis and this is being addressed by nephrology on the case. CT of the abdomen showed no obstruction and no hydronephrosis. Patient has been steadily improving. His cortisol level was 8, however the patient was on methylprednisolone at 60 mg IV push every 6 hours, this is considered relatively extremely low cortisol, and the patient may have adrenal insufficiency. May have to seriously consider Cortrosyn stimulation test on this patient for 3 with Solu-Cortef, for presumptive adrenal insufficiency considering the cortisol level is that low in spite of being on methylprednisolone. Especially with the blood pressure being soft and seems to be on the low side today's labs continued to show hyponatremia and hyperkalemia with BUN of 57 creatinine 1.79 with WC out of 2.9 hemoglobin of 8 Patient was reevaluated today on 07/07/2023, patient seems to be doing well today, feeling much better, breathing a lot easier, he has hardly any pulmonary symptoms. And the patient remains on room air. Yesterday, I ordered a repeat serum cortisol level, and came back low again at 5 although the patient has been all along on methylprednisolone and on prednisone. Hence considering his hyponatremia and hyperkalemia and hypotension, I am strongly suspicious that we may be dealing with adrenal insufficiency. Will give the patient a trial of Solu-Cortef, 100 mg IV push, unless we can actually do a Cortrosyn stimulation test on this patient prior to Solu-Cortef given. In the meantime I will go ahead and stop his prednisone and switch him to Solu-Cortef Today Were Reviewed Continues to Have Elevated BUN of 58 Creatinine 1.85 and Continues to Have Relative Hyponatremia and Hyperkalemia Objective - Vital Signs Vital signs: Vital Signs Temp 97.5 F L 07/07/23 08:50 Pulse 67 07/07/23 12:44 Resp 17 07/07/23 12:20 BP 87/53 07/07/23 12:20 Pulse Ox 96 07/07/23 12:20 FiO2 21 07/05/23 09:14 Intake & Output 07/06/23 07/07/23 07/07/23 18:59 06:59 18:59 Intake Total 180 Output Total 200 200 Balance -200 -20 Intake: Oral 180 Output: Urine 200 200 Other: Voiding Method Toilet Toilet Toilet Urinal Urinal Urinal # Voids 1 1 - Exam Physical Exam: Revealed a 63-year-old white male in no distress on room air, O2 saturations 95% Head: Atraumatic, normocephalic. HEENT:[Neck is supple.] [No neck masses.] [No thyromegaly.] [No JVD.] Chest: [Clear throughout, no crackles, no rhonchi, no wheezes.] Cardiac Exam: [Normal S1 and S2, no S3 gallop, no murmur.] Abdomen: [Soft, nontender, no megaly, no rebound, no guarding, normal bowel sounds.] Extremities: [No clubbing, trace of bipedal edema, no cyanosis.] Neurological Exam: [No focal neurologic deficit.] Alert oriented 3 psychiatric: Normal mood affect and normal mental status. Skin: No rash - Labs CBC & Chem 7: 07/07/23 08:30 07/07/23 08:30 Labs: Abnormal Lab Results - Last 24 Hours (Table) 07/06/23 07/06/23 07/07/23 Range/Units 16:42 19:49 06:04 RBC (4.30-5.90) m/uL Hgb (13.0-17.5) gm/dL Hct (39.0-53.0) % MCV (80.0-100.0) fL MCH (25.0-35.0) pg RDW (11.5-15.5) % Plt Count (150-450) k/uL Lymphocytes # (1.0-4.8) k/uL Macrocytosis Sodium (137-145) mmol/L Potassium (3.5-5.1) mmol/L BUN (9-20) mg/dL Creatinine (0.66-1.25) mg/dL Glucose (74-99) mg/dL POC Glucose (mg/dL) 194 H 193 H 131 H (70-110) mg/dL Calcium (8.4-10.2) mg/dL 07/07/23 07/07/23 07/07/23 Range/Units 08:30 08:30 11:57 RBC 2.25 L (4.30-5.90) m/uL Hgb 8.4 L (13.0-17.5) gm/dL Hct 26.1 L (39.0-53.0) % MCV 116.2 H (80.0-100.0) fL MCH 37.2 H (25.0-35.0) pg RDW 19.8 H (11.5-15.5) % Plt Count 47 L (150-450) k/uL Lymphocytes # 0.5 L (1.0-4.8) k/uL Macrocytosis Marked A Sodium 134 L (137-145) mmol/L Potassium 5.3 H (3.5-5.1) mmol/L BUN 58 H (9-20) mg/dL Creatinine 1.85 H (0.66-1.25) mg/dL Glucose 139 H (74-99) mg/dL POC Glucose (mg/dL) 146 H (70-110) mg/dL Calcium 7.2 L (8.4-10.2) mg/dL Assessment and Plan Assessment: Impression: Acute hypoxemic respiratory failure, secondary to acute COPD exacerbation, resolved, lungs are clear today and the patient is on room air Elevated troponins, being addressed by cardiology Metabolic non-anion gap acidosis Acute kidney injury, creatinine 1.78 Macrocytic anemia Bicytopenia History of alcoholism Diabetes mellitus Subclinical hypothyroidism Chronic ongoing tobacco dependence Chronic low back pain, right hip pain Strongly suspect adrenal insufficiency hence I will go ahead and start the patient on Solu-Cortef 100 mg IV push every 8 hours Recommendation: Solu-Cortef 100 mg IV push every 8 hours and discontinue prednisone Continue bronchodilators Discontinue bicarb drip If the patient is to be discharged, make sure the patient is discharged on Cortef and follow-up on outpatient basis with endocrinology Not quite ready for discharge planning We will continue to follow Time with Patient: Less than 30
--- NOTE | 2023-07-07 15:31 | P.PN ---
Subjective Progress Note Date: 07/07/23 63-year-old male with a PMH of type II DM, hypertension, hyperlipidemia, anxiety, alcohol abuse and COPD who presented to the ER because of not feeling well and generalized weakness for the last few weeks. Patient stated that he has been noticing that he has been feeling weak for the last few weeks, comp laining of shortness of breath on exertion. Patient also complaining of intermittent chest pain that is brought on by activity, central in location, pressure-like, improved with rest. Denies any fever or chills. Patient has been having increased weakness. Denies any nausea or vomiting, denies any blood in the stools. Because of the symptoms, patient came to the ER * Initial lab work done in the ER showed WBC 4.5, hemoglobin 7.8, platelet count 105, d-dimer 1.54, sodium 127, potassium 5.8, BUN 48, creatinine 1.78, plasma lactic 3.7 calcium 7.7, phosphorous 6 * EKG done in the ER showed heart rate of 98, no ST segment elevation seen, T- wave inversion seen in lead1,aVL, V5 and V6 * Chest x-ray done in the ER showed chronic changes without new acute pulmonary process * CTA chest abdominal done showed abnormal lobulated appearance of the liver suspicious for cirrhosis. Moderate ascites throughout the abdominal and pelvis. New compression fracture deformity of the superior endplate of L3. * 07/06/2023 Patient is seen and evaluated with family at bedside; complaints of weakness; requiring assistance Vital signs are reviewed and remained stable Lab review shows WBC of 2.9, hemoglobin of 8.2 and platelet count of 66, sodium 129, potassium 5.4, BUN/creatinine of 55/1.79 and blood glucose of 189 -- Sodium level continues to improve and at from 126-129 this morning; slight deterioration of renal function with creatinine of 1.79 up from 1.5 to yesterday; nephrology recommending to continue with current treatment -- Sanchez cytopenia; patient has been evaluated by hematology; likely resulting from alcohol abuse and cirrhosis ------Anemia workup and HIV and acute hepatitis panel ordered to r/o other etiologies of cytopenias. Acute hepatitis panel and HIV negative. No vitamin B12 deficiency noted. Folate 3.6, supplementation ordered. Iron saturation 25%, ferritin 325, however, these labs were drawn after patient was given blood transfusion. Requested lab to repeat these on pretransfusion blood, results pending -Thyroid studies revealed subclinical hypothyroidism -Underlying anemia likely exacerbated by acute inflammation/SAHARA, however anemia r/t blood loss is also in differential. No reported episodes of rectal bleeding/melena, but pt has not had colonoscopy in approx 10 years. As well as possible esophageal varices noted on CT scan. Recommend GI f/u for further evaluation/management. Hematology recommends paracentesis to r/o underlying infection/SBP -Macrocytosis likely r/t underlying history of ETOH abuse and liver disease -transfuse for hemoglobin less than 7 or if symptomatic, and for platelets less than 10,000 or if symptomatic -CBC daily 07/07/2023 -- patient is seen and evaluated in room at bedside; seems to be doing well today, feeling much better Pulmonary service on board and recommending to give a trial of Solu-Cortef 100 mg IV, given low cortisol level despite patient being on methylprednisolone, adrenal insufficiency is suspected In the meantime I will go ahead and stop his-- pulmonary has stopped prednisone and patient is placed on Solu-Cortef -- Elevated BUN of 58 Creatinine 1.85, sodium of 134 with potassium of 5.3 -- B UN/creatinine gradually trending up and at 58/1.85 this morning; nephrology recommending IV fluids considering hypotension causing worsening renal function -- Patient has been evaluated by hematology for pancytopenia; likely related to alcoholic liver disease Objective - Vital Signs Vital signs: Vital Signs Temp 97.5 F L 07/07/23 08:50 Pulse 67 07/07/23 12:44 Resp 18 07/07/23 08:50 BP 116/70 07/07/23 08:50 Pulse Ox 99 07/07/23 08:50 FiO2 21 07/05/23 09:14 Intake & Output 07/06/23 07/07/23 07/07/23 18:59 06:59 18:59 Intake Total 180 Output Total 200 200 Balance -200 -20 Intake: Oral 180 Output: Urine 200 200 Other: Voiding Method Toilet Toilet Toilet Urinal Urinal Urinal # Voids 1 1 - Exam GENERAL: The patient is alert and oriented x3, ill appearance, pale HEENT: Pupils are round and equally reacting to light. EOMI. CARDIOVASCULAR: S1 and S2 present. No murmurs, rubs, or gallops. PULMONARY: Chest is clear to auscultation, no wheezing or crackles. ABDOMEN: Soft, nontender, distended MUSCULOSKELETAL: No joint swelling or deformity. EXTREMITIES: 1+ pitting edema lower extremities bilaterally NEUROLOGICAL: Gross neurological examination did not reveal any focal deficits. SKIN: No rashes. - Labs CBC & Chem 7: 07/07/23 08:30 07/07/23 08:30 Labs: Abnormal Lab Results - Last 24 Hours (Table) 07/06/23 07/06/23 07/07/23 Range/Units 16:42 19:49 06:04 RBC (4.30-5.90) m/uL Hgb (13.0-17.5) gm/dL Hct (39.0-53.0) % MCV (80.0-100.0) fL MCH (25.0-35.0) pg RDW (11.5-15.5) % Plt Count (150-450) k/uL Lymphocytes # (1.0-4.8) k/uL Macrocytosis Sodium (137-145) mmol/L Potassium (3.5-5.1) mmol/L BUN (9-20) mg/dL Creatinine (0.66-1.25) mg/dL Glucose (74-99) mg/dL POC Glucose (mg/dL) 194 H 193 H 131 H (70-110) mg/dL Calcium (8.4-10.2) mg/dL 07/07/23 07/07/23 07/07/23 Range/Units 08:30 08:30 11:57 RBC 2.25 L (4.30-5.90) m/uL Hgb 8.4 L (13.0-17.5) gm/dL Hct 26.1 L (39.0-53.0) % MCV 116.2 H (80.0-100.0) fL MCH 37.2 H (25.0-35.0) pg RDW 19.8 H (11.5-15.5) % Plt Count 47 L (150-450) k/uL Lymphocytes # 0.5 L (1.0-4.8) k/uL Macrocytosis Marked A Sodium 134 L (137-145) mmol/L Potassium 5.3 H (3.5-5.1) mmol/L BUN 58 H (9-20) mg/dL Creatinine 1.85 H (0.66-1.25) mg/dL Glucose 139 H (74-99) mg/dL POC Glucose (mg/dL) 146 H (70-110) mg/dL Calcium 7.2 L (8.4-10.2) mg/dL Assessment and Plan Assessment: * Status post fall with compression fracture of L3 spine * Elevated troponin type II MN * COPD exacerbation with acute hypoxic respiratory failure * Acute hyponatremia * Hyperkalemia * Acute kidney injury secondary to ATN * Metabolic acidosis * Transient hypotension * Pancytopenia * Cirrhotic liver seen on computed tomography scan * Consultation obtained from nephrology, cardiology and orthopedic * Patient will need physical therapy occupational therapy evaluation. Patient on the TLSO brace * Regards to elevated troponin seen by cardiology, heparin was discontinued secondary to anemia * In regards to liver cirrhosis will need outpatient follow PCP and gastroenterology * Regards to pancytopenia will need follow-up with hematology oncology consulted while inpatient * CODE STATUS is full code
[2023-07-07] MEDS: HYDROCORTISONE SUCCINATE 100 MG/2 ML VIAL IV SCH (15:54)
[2023-07-07 16:50] LABS: Glucose,Whole Blood 191 mg/dL (70-110)
[2023-07-07 19:53] LABS: Glucose,Whole Blood 224 mg/dL (70-110)
[2023-07-08] MEDS: ALPRAZolam 0.5 MG TAB PO SCH ×2 (01:29→21:29)
[2023-07-08] MEDS: HYDROCORTISONE SUCCINATE 100 MG/2 ML VIAL IV SCH ×3 (01:31→17:55)
[2023-07-08] MEDS: LACTATED RINGERS 1,000 ML IV SCH (01:36)
[2023-07-08 05:38] LABS: Glucose,Whole Blood 215 mg/dL (70-110)
[2023-07-08] MEDS: MIDODRINE 5 MG TAB PO SCH ×3 (06:01→17:55)
[2023-07-08] MEDS: INSULIN ASPART (NovoLOG) 100 UNIT/ML VIAL SQ SCH ×6 (06:02→21:24)
[2023-07-08] MEDS: SYMBICORT 160-4.5 MCG INHALER INHALATION SCH ×2 (08:25→20:28)
[2023-07-08] MEDS: IPRATROPIUM-ALBUTEROL 3 ML NEB INHALATION SCH ×4 (08:25→20:28)
[2023-07-08] MEDS ORDERED: SODIUM ZIRCONIUM CYCLOSILICATE 10 GM PACKET PO ONE (09:19)
[2023-07-08] MEDS: METOPROLOL TARTRATE 12.5 MG TAB PO SCH ×2 (09:41→21:29)
[2023-07-08] MEDS: CHOLECALCIFEROL 25 MCG (1000 IU) TABLET PO SCH (09:41)
[2023-07-08] MEDS: FOLIC ACID 1 MG TAB PO SCH (09:41)
[2023-07-08] MEDS: THIAMINE 100 MG TAB PO SCH (09:42)
[2023-07-08] MEDS: HYDROcodone/APAP 7.5-325MG 1 EACH TAB PO PRN ×2 (09:42→21:29)
[2023-07-08 11:56] LABS: African American GFR (CKD) 51 (>60 ml/min/1.73 sqM); Anion Gap 7 mmol/L; Blood Urea Nitrogen 56 mg/dL (9-20); Calcium 7.2 mg/dL (8.4-10.2); Carbon Dioxide 24 mmol/L (22-30); Chloride 101 mmol/L (98-107); Glucose 121 mg/dL (74-99); Non-African American GFR(CKD) 44 (>60 ml/min/1.73 sqM); Potassium 4.7 mmol/L (3.5-5.1); Sodium 132 mmol/L (137-145)
[2023-07-08 12:11] LABS: Glucose,Whole Blood 161 mg/dL (70-110)
--- NOTE | 2023-07-08 12:27 | P.PN ---
Subjective Patient is seen in follow-up for acute kidney injury. Renal function stable. Receiving IV fluids. Oral intake poor. Complains of swelling. Blood pressure stable. Has been voiding. Vital signs are stable. General: No acute distress. HEENT: Head exam is unremarkable. LUNGS: No audible rhonchi or wheezes. HEART: Rate and Rhythm are regular. ABDOMEN: Nontender. EXTREMITITES: 2+ edema. Objective - Vital Signs Vital signs: Vital Signs Temp 97.8 F 07/08/23 08:00 Pulse 88 07/08/23 08:40 Resp 17 07/08/23 08:00 BP 114/66 07/08/23 08:00 Pulse Ox 93 L 07/08/23 08:00 FiO2 21 07/05/23 09:14 Intake & Output 07/07/23 07/08/23 07/08/23 18:59 06:59 18:59 Intake Total 180 Output Total 550 300 Balance -370 -300 Intake: Oral 180 Output: Urine 550 300 Other: Voiding Method Toilet Urinal Urinal Urinal # Voids 1 - Labs CBC & Chem 7: 07/07/23 08:30 07/08/23 10:47 Labs: Abnormal Lab Results - Last 24 Hours (Table) 07/07/23 07/07/23 07/08/23 Range/Units 16:48 19:51 05:37 Sodium (137-145) mmol/L BUN (9-20) mg/dL Creatinine (0.66-1.25) mg/dL Glucose (74-99) mg/dL POC Glucose (mg/dL) 191 H 224 H 215 H (70-110) mg/dL Calcium (8.4-10.2) mg/dL 07/08/23 07/08/23 Range/Units 10:47 12:11 Sodium 132 L (137-145) mmol/L BUN 56 H (9-20) mg/dL Creatinine 1.66 H (0.66-1.25) mg/dL Glucose 121 H (74-99) mg/dL POC Glucose (mg/dL) 161 H (70-110) mg/dL Calcium 7.2 L (8.4-10.2) mg/dL Assessment and Plan Plan: Assessment: 1. Acute kidney injury secondary to ATN secondary to hypotension. No p roteinuria on UA. Creatinine stable at 1.66 today. Creatinine 0.7 dated February 06, 2023. 2. Volume overload. 3. Moderate mitral regurgitation. 4. Hypotension. Cortisol level on the lower side. On hydrocortisone. Consider endocrinology evaluation outpatient for workup for adrenal insufficiency. 5. Hypervolemic hyponatremia. 6. Pancytopenia being followed by hematology. Iron replete. 7. Hyperkalemia secondary to acute kidney injury and acidosis. Questionable adrenal insufficiency. Improved. Plan: Hep-Lock IV fluids. Add IV Lasix 40 mg twice daily. Check bladder scan to rule out urinary retention. Avoid nephrotoxins. Continue to monitor renal function and urine output. Low-salt diet and 1500 mL fluid restriction.
[2023-07-08] MEDS: INSULIN DETEMIR (LEVEMIR) 100 UNIT/ML SYR SQ SCH (12:42)
[2023-07-08] MEDS: FUROSEMIDE 10 MG/ML 4 ML VIAL IV SCH ×2 (12:46→21:29)
--- NOTE | 2023-07-08 14:17 | P.PN ---
Subjective HISTORY OF PRESENT ILLNESS: Patient examined this morning at the bedside. Patient is sitting on the side of the bed. Patient currently denies chest pain or pressure. He denies shortness of breath. He does have lower extremity edema which he states has been present for the past month. Patient's vital signs are stable. Telemetry reveals sinus mechanism. PHYSICAL EXAM: VITAL SIGNS: Reviewed. GENERAL: Well-developed in no acute distress. NECK: Supple. No JVD or thyromegaly LUNGS: Respirations even and unlabored. Lungs essentially clear to auscultation bilaterally. HEART: Regular rate and rhythm. S1 and S2 heard. EXTREMITIES: Normal range of motion. No clubbing or cyanosis. Peripheral pul ses intact. 2+ bilateral lower extremity edema ASSESSMENT: COPD exacerbation Elevated troponins most likely secondary to anemia, type II ND Diffuse EKG changes Cirrhosis of the liver on CAT scan Anasarca and ascites SAHARA likely due to hepatorenal syndrome Hyponatremia Hyperkalemia Metabolic acidosis Lactic acidosis Acute kidney injury Chest wall trauma from fall Pancytopenia L3 compression fracture Active tobacco use and dependence Alcohol abuse PLAN: Recommend diuresis. However will defer this to nephrology team Continue current cardiac medications No further inpatient recommendations from a cardiology standpoint Patient to follow-up post discharge We will sign off. Please reconsult if needed. Nurse practitioner note has been reviewed by physician. Signing provider agrees with the documented findings, assessment, and plan of care. Objective - Vital Signs Vital signs: Vital Signs Temp 97.8 F 07/08/23 08:00 Pulse 88 07/08/23 08:40 Resp 17 07/08/23 08:00 BP 114/66 07/08/23 08:00 Pulse Ox 93 L 07/08/23 08:00 FiO2 21 07/05/23 09:14 Intake & Output 07/07/23 07/08/23 07/08/23 18:59 06:59 18:59 Intake Total 180 Output Total 550 300 Balance -370 -300 Intake: Oral 180 Output: Urine 550 300 Other: Voiding Method Toilet Urinal Urinal Urinal # Voids 1 - Labs CBC & Chem 7: 07/07/23 08:30 07/08/23 10:47 Labs: Abnormal Lab Results - Last 24 Hours (Table) 07/07/23 07/07/23 07/08/23 Range/Units 16:48 19:51 05:37 Sodium (137-145) mmol/L BUN (9-20) mg/dL Creatinine (0.66-1.25) mg/dL Glucose (74-99) mg/dL POC Glucose (mg/dL) 191 H 224 H 215 H (70-110) mg/dL Calcium (8.4-10.2) mg/dL 07/08/23 07/08/23 Range/Units 10:47 12:11 Sodium 132 L (137-145) mmol/L BUN 56 H (9-20) mg/dL Creatinine 1.66 H (0.66-1.25) mg/dL Glucose 121 H (74-99) mg/dL POC Glucose (mg/dL) 161 H (70-110) mg/dL Calcium 7.2 L (8.4-10.2) mg/dL
--- NOTE | 2023-07-08 15:19 | P.PN ---
Subjective Progress Note Date: 07/08/23 Principal diagnosis: COPD, shortness of breath, non-ST segment elevation myocardial infarction. Patient was reevaluated today on 07/05/2023,, patient is feeling better, he seems to be quite comfortable, he is actually on room air. His WBC count is 4.4 hemoglobin 7.9 electrolytes are normal except for sodium of 129 a uterine is 50 creatinine 1.52, steadily improving compared to a creatinine of 1.852 days ago. Serum cortisol was 8, hip x-rays showed mild right hip osteoarthritis otherwise no significant findings chest x-ray on admission showed chronic changes and no acute pulmonary process. Apparently someone ordered a VQ scan which showed no evidence of pulmonary embolism Patient was reevaluated today on 07/06/2023, pulmonary-nicole the patient is doing great, he is asymptomatic no cough no wheezing no shortness of breath, and the patient remains on room air. Patient is maintained on bicarb drip for his metabolic acidosis and this is being addressed by nephrology on the case. CT of the abdomen showed no obstruction and no hydronephrosis. Patient has been stea dily improving. His cortisol level was 8, however the patient was on methylprednisolone at 60 mg IV push every 6 hours, this is considered relatively extremely low cortisol, and the patient may have adrenal insufficiency. May have to seriously consider Cortrosyn stimulation test on this patient for 3 with Solu-Cortef, for presumptive adrenal insufficiency considering the cortisol level is that low in spite of being on methylprednisolone. Especially with the blood pressure being soft and seems to be on the low side today's labs continued to show hyponatremia and hyperkalemia with BUN of 57 creatinine 1.79 with WC out of 2.9 hemoglobin of 8 Patient was reevaluated today on 07/07/2023, patient seems to be doing well today, feeling much better, breathing a lot easier, he has hardly any pulmonary symptoms. And the patient remains on room air. Yesterday, I ordered a repeat serum cortisol level, and came back low again at 5 although the patient has been all along on methylprednisolone and on prednisone. Hence considering his hyponatremia and hyperkalemia and hypotension, I am strongly suspicious that we may be dealing with adrenal insufficiency. Will give the patient a trial of So madelin-Cortef, 100 mg IV push, unless we can actually do a Cortrosyn stimulation test on this patient prior to Solu-Cortef given. In the meantime I will go ahead and stop his prednisone and switch him to Solu-Cortef Today Were Reviewed Continues to Have Elevated BUN of 58 Creatinine 1.85 and Continues to Have Relative Hyponatremia and Hyperkalemia Progress note dated 07/08/2023. 63-year-old male seen today in room 374. Currently, the patient is on room air. The patient was receiving hydrocortisone 100 mg every 8 hours, given to him by my partner, for a cortisol level that was only 5. The patient's also getting saline at 75 mL an hour. Patient appears to be relatively stable. Labs today i nclude a sodium 132, potassium 4.7, chlorides 101, CO2 24, BUN 56, and creatinine 1.66. Glucose is 121. Objective - Vital Signs Vital signs: Vital Signs Temp 97.8 F 07/08/23 08:00 Pulse 88 07/08/23 08:40 Resp 17 07/08/23 08:00 BP 114/66 07/08/23 08:00 Pulse Ox 93 L 07/08/23 08:00 FiO2 21 07/05/23 09:14 Intake & Output 07/07/23 07/08/23 07/08/23 18:59 06:59 18:59 Intake Total 180 Output Total 550 300 Balance -370 -300 Weight 85.729 kg Intake: Oral 180 Output: Urine 550 300 Other: Voiding Method Toilet Urinal Urinal Urinal # Voids 1 - Exam No acute distress, oriented 3. The patient's currently on room air. No respiratory distress. HEENT examination is grossly unremarkable. Mucous membranes are moist. No oral lesions. Neck supple. Full range of motion. No adenopathy thyromegaly or neck vein distention. Cardiovascular examination reveals regular rhythm rate. S1-S2 normal. No S3 or S4. No discernible murmur noted. Heart rate 88 bpm. Lungs reveal mostly clear breath sounds. Minimal rhonchi. No wheezes or crackles. Room air saturation 95%. Abdomen soft bowel sounds are heard. No masses or tenderness. Extremities are intact. No cyanosis clubbing or edema. Skin is without rash or lesion. Neurologic examination is brief but nonfocal. - Labs CBC & Chem 7: 07/07/23 08:30 07/08/23 10:47 Labs: Abnormal Lab Results - Last 24 Hours (Table) 07/07/23 07/07/23 07/08/23 Range/Units 16:48 19:51 05:37 Sodium (137-145) mmol/L BUN (9-20) mg/dL Creatinine (0.66-1.25) mg/dL Glucose (74-99) mg/dL POC Glucose (mg/dL) 191 H 224 H 215 H (70-110) mg/dL Calcium (8.4-10.2) mg/dL 07/08/23 07/08/23 Range/Units 10:47 12:11 Sodium 132 L (137-145) mmol/L BUN 56 H (9-20) mg/dL Creatinine 1.66 H (0.66-1.25) mg/dL Glucose 121 H (74-99) mg/dL POC Glucose (mg/dL) 161 H (70-110) mg/dL Calcium 7.2 L (8.4-10.2) mg/dL Assessment and Plan Assessment: Acute hypoxemic respiratory failure secondary to COPD exacerbation. Elevated troponins, currently being addressed by cardiology. Non-anion gap metabolic acidosis. Acute kidney injury. Macrocytic anemia. Bicytopenia. History of alcohol abuse. Diabetes mellitus. Subclinical hypothyroidism. Chronic and ongoing tobacco dependence. Chronic low back pain. Possible adrenal insufficiency. Plan: Plan dated 07/08/2023. The patient is receiving Solu-Cortef, 100 mg, every 8 hours. It was started by my partner. Cortisol level was low at 5. Currently, the patient's on room air. The patient is getting saline at 75 mL an hour. We will continue to follow the patient and make recommendations along the way. Labs, x-rays, medications are reviewed. Prognosis is guarded. Time with Patient: Less than 30
[2023-07-08 17:03] LABS: Glucose,Whole Blood 148 mg/dL (70-110)
--- NOTE | 2023-07-08 18:23 | P.PN ---
Subjective Progress Note Date: 07/08/23 Principal diagnosis: Bicytopenia In follow-up today patient has no new complaints, he is significant swelling in the lower extremities, he is short of breath with exertion, complains of generalized weakness. No bleeding, does have easy bruising. Objective - Vital Signs Vital signs: Vital Signs Temp 97.8 F 07/08/23 08:00 Pulse 68 07/08/23 15:46 Resp 17 07/08/23 08:00 BP 114/66 07/08/23 08:00 Pulse Ox 93 L 07/08/23 08:00 FiO2 21 07/05/23 09:14 Intake & Output 07/07/23 07/08/23 07/08/23 18:59 06:59 18:59 Intake Total 180 Output Total 550 300 Balance -370 -300 Weight 85.729 kg Intake: Oral 180 Output: Urine 550 300 Other: Voiding Method Toilet Urinal Urinal Urinal # Voids 1 - Constitutional General appearance: Present: cooperative, no acute distress - EENT Eyes: Present: anicteric sclerae, EOMI ENT: Present: hearing grossly normal - Respiratory Details: Respirations mildly labored when speaking - Cardiovascular Details: General anasarca, bilateral lower extremity 2+ edema, pitting - Integumentary Integumentary Comment(s): Multiple bruises on the forearms Integumentary: Present: pale - Neurologic Neurologic: Present: CNII-XII intact (Grossly) - Musculoskeletal Musculoskeletal: Present: generalized weakness - Psychiatric Psychiatric: Present: A&O x's 3, appropriate affect, intact judgment & insight - Labs CBC & Chem 7: 07/07/23 08:30 07/08/23 10:47 Labs: Abnormal Lab Results - Last 24 Hours (Table) 07/07/23 07/07/23 07/08/23 Range/Units 16:48 19:51 05:37 Sodium (137-145) mmol/L BUN (9-20) mg/dL Creatinine (0.66-1.25) mg/dL Glucose (74-99) mg/dL POC Glucose (mg/dL) 191 H 224 H 215 H (70-110) mg/dL Calcium (8.4-10.2) mg/dL 07/08/23 07/08/23 Range/Units 10:47 12:11 Sodium 132 L (137-145) mmol/L BUN 56 H (9-20) mg/dL Creatinine 1.66 H (0.66-1.25) mg/dL Glucose 121 H (74-99) mg/dL POC Glucose (mg/dL) 161 H (70-110) mg/dL Calcium 7.2 L (8.4-10.2) mg/dL Assessment and Plan (1) Bicytopenia Current Visit: Yes Status: Acute Priority: High Code(s): D75.89 - OTHER SPECIFIED DISEASES OF BLOOD AND BLOOD-FORMING ORGANS SNOMED Code(s): 89078100 Plan: Bicytopenia, Anemia, thrombocytopenia -Patient is low on folic acid, supplement started -Copper levels low, recommended [id number] copper supplement for 30 days with a recheck by his PCP. Copper supplement is not for long-term use. Do not recommend the use of zinc supplements while taking copper supplements as they can negate each other. -Transfuse for hemoglobin less than 7 unless patient is symptomatic. Patient has Received 1 unit PRBCs, no transfusions needed since. -Transfuse for platelets less than 10,000 unless patient is symptomatic. Patient has not required platelet transfusion. As long as platelets remain greater than 50,000 patient is okay for DVT prophylaxis
[2023-07-08 20:55] LABS: Glucose,Whole Blood 112 mg/dL (70-110)
[2023-07-09] MEDS: HYDROCORTISONE SUCCINATE 100 MG/2 ML VIAL IV SCH ×3 (00:55→18:36)
[2023-07-09] MEDS: MORPHINE SULFATE 4 MG/ML SYRINGE IV PRN (00:55)
[2023-07-09 05:50] LABS: Glucose,Whole Blood 93 mg/dL (70-110)
[2023-07-09] MEDS: INSULIN ASPART (NovoLOG) 100 UNIT/ML VIAL SQ SCH ×7 (06:05→21:50)
--- NOTE | 2023-07-09 06:54 | P.PN ---
Subjective Progress Note Date: 07/08/23 This is a 67 year old male who is admitted for acute COPD exacerbation, NSTEMI. Patient also has evidence of compression fracture and has TLSO brace. Patient continues with significant weakness. Noted to have increased lower extremity edema and was started on IV lasix Q12. PT/OT will be ordered. Patient continues to feel short of breath mostly with exertion. He is also being treated for a suspected adrenal insufficiency and remains on IV solucortef 100 mg Q8h. Review of Systems Constitutional: Denied any fatigue denied any fever. Cardio vascular: denied any chest pain, palpitations Gastrointestinal: denied any nausea, vomiting, diarrhea Pulmonary: Denied any shortness of breath cough Neurologic denied any new focal deficits Reports weakness. All inpatient medications were reviewed and appropriate changes in these medications as dictated in the interval history and assessment and plan. PHYSICAL EXAMINATION: GENERAL: The patient is alert and oriented x3, not in any acute distress. Well developed, well nourished. Pale. Fatigued. HEENT: Pupils are round and equally reacting to light. EOMI. No scleral icterus. No conjunctival pallor. Normocephalic, atraumatic. No pharyngeal erythema. No thyromegaly. CARDIOVASCULAR: S1 and S2 present. No murmurs, rubs, or gallops. PULMONARY: Chest is clear to auscultation, no wheezing or crackles. ABDOMEN: Soft, nontender, nondistended, normoactive bowel sounds. No palpable organomegaly. MUSCULOSKELETAL: No joint swelling or deformity. EXTREMITIES: No cyanosis, clubbing, 2+ lower extremity edema NEUROLOGICAL: Significant generalized weakness. SKIN: No rashes. Assessment -Status post fall with compression fracture of L3 spine has TLSO brace -Elevated troponin type II LA -COPD exacerbation with acute hypoxic respiratory failure currently weaned to room air -Acute hyponatremia -Suspected adrenal insufficiency maintained on IV solucortef -Hyperkalemia improved -Acute kidney injury secondary to ATN improved with LR and then worsened -Metabolic acidosis improved -Transient hypotension -Bicytopenia macrocytic -Cirrhotic liver seen on computed tomography scan GI prophylaxis DVT prophylaxis deferred Full Code Plan -Physical therapy has been consulted for evaluation -Heparin was discontinued secondary to anemia, OK for DVT prophylaxis per hematology if platelet count above 50,000. Today was 47,000. -Needs GI follow up outpatient for the liver cirrhosis -Continues on IV solucortef will need to DC on orals and follow up with endocrine -Fluids were discontinued today patient was started on IV lasix recommend strict I and Os. -Follow up labs in AM The impression and plan of care has been dictated by Rebekah Augustin, Nurse Practitioner as directed. Dr. Willard MD I have performed a history and physical examination and medical decision making of this patient, discussed the same with the dictator, and agree with the dictators assessment and plan as written, documented as a scribe. Based on total visit time, I have performed more than 50% of this visit. Objective - Vital Signs Vital signs: Vital Signs Temp 97.8 F 07/08/23 08:00 Pulse 88 07/08/23 08:40 Resp 17 07/08/23 08:00 BP 114/66 07/08/23 08:00 Pulse Ox 93 L 07/08/23 08:00 FiO2 21 07/05/23 09:14 Intake & Output 07/07/23 07/08/23 07/08/23 18:59 06:59 18:59 Intake Total 180 Output Total 550 300 Balance -370 -300 Weight 85.729 kg Intake: Oral 180 Output: Urine 550 300 Other: Voiding Method Toilet Urinal Urinal Urinal # Voids 1 - Labs CBC & Chem 7: 07/07/23 08:30 07/08/23 10:47 Labs: Abnormal Lab Results - Last 24 Hours (Table) 07/07/23 07/07/23 07/08/23 Range/Units 16:48 19:51 05:37 Sodium (137-145) mmol/L BUN (9-20) mg/dL Creatinine (0.66-1.25) mg/dL Glucose (74-99) mg/dL POC Glucose (mg/dL) 191 H 224 H 215 H (70-110) mg/dL Calcium (8.4-10.2) mg/dL 07/08/23 07/08/23 Range/Units 10:47 12:11 Sodium 132 L (137-145) mmol/L BUN 56 H (9-20) mg/dL Creatinine 1.66 H (0.66-1.25) mg/dL Glucose 121 H (74-99) mg/dL POC Glucose (mg/dL) 161 H (70-110) mg/dL Calcium 7.2 L (8.4-10.2) mg/dL Assessment and Plan Time with Patient: Less than 30
[2023-07-09] MEDS: SYMBICORT 160-4.5 MCG INHALER INHALATION SCH ×2 (08:18→21:44)
[2023-07-09] MEDS: IPRATROPIUM-ALBUTEROL 3 ML NEB INHALATION SCH ×4 (08:18→21:44)
[2023-07-09 08:21] LABS: Anisocytosis Slight; Basophils % (A) 0 %; Eosinophils % (A) 0 %; HCT 21.3 % (39.0-53.0); Hypochromasia Slight; Lymphocytes # (A) 0.2 k/uL (1.0-4.8); Lymphocytes % (A) 9 %; MCHC 32.6 g/dL (31.0-37.0); MCV 116.6 fL (80.0-100.0); Macrocytosis Marked; Mean Platelet Volume 10.5; Monocytes # (A) 0.1 k/uL (0-1.0); Monocytes % (A) 4 %; Neutrophils # (A) 2.1 k/uL (1.3-7.7); Neutrophils % (A) 85 %; RBC 1.83 m/uL (4.30-5.90); RDW 19.4 % (11.5-15.5); WBC 2.5 k/uL (3.8-10.6)
[2023-07-09 08:23] LABS: Platelet Count 39 k/uL (150-450)
[2023-07-09 08:25] LABS: African American GFR (CKD) 45 (>60 ml/min/1.73 sqM); Anion Gap 4 mmol/L; Blood Urea Nitrogen 56 mg/dL (9-20); Calcium 7.1 mg/dL (8.4-10.2); Carbon Dioxide 27 mmol/L (22-30); Chloride 102 mmol/L (98-107); Glucose 74 mg/dL (74-99); Magnesium 1.7 mg/dL (1.6-2.3); Non-African American GFR(CKD) 39 (>60 ml/min/1.73 sqM); Potassium 4.5 mmol/L (3.5-5.1); Sodium 133 mmol/L (137-145)
[2023-07-09] MEDS: METOPROLOL TARTRATE 12.5 MG TAB PO SCH ×2 (09:21→20:25)
[2023-07-09] MEDS: MIDODRINE 5 MG TAB PO SCH ×3 (09:21→18:36)
[2023-07-09] MEDS: CHOLECALCIFEROL 25 MCG (1000 IU) TABLET PO SCH (09:21)
[2023-07-09] MEDS: THIAMINE 100 MG TAB PO SCH (09:21)
[2023-07-09] MEDS: FOLIC ACID 1 MG TAB PO SCH (09:21)
[2023-07-09] MEDS: FUROSEMIDE 10 MG/ML 4 ML VIAL IV SCH ×2 (09:22→20:25)
[2023-07-09] MEDS: INSULIN DETEMIR (LEVEMIR) 100 UNIT/ML SYR SQ SCH (09:22)
--- NOTE | 2023-07-09 11:27 | P.PN ---
Subjective Patient is seen in follow-up for acute kidney injury. Renal function fairly stable. On IV Lasix. Oral intake poor. Blood pressure stable. Has Charles catheter for urinary retention. Vital signs are stable. General: No acute distress. HEENT: Head exam is unremarkable. LUNGS: No audible rhonchi or wheezes. HEART: Rate and Rhythm are regular. ABDOMEN: Nontender. EXTREMITITES: 2+ edema. Objective - Vital Signs Vital signs: Vital Signs Temp 97.6 F 07/09/23 08:00 Pulse 72 07/09/23 08:25 Resp 18 07/09/23 08:00 BP 112/65 07/09/23 08:00 Pulse Ox 93 L 07/09/23 08:00 FiO2 21 07/05/23 09:14 Intake & Output 07/08/23 07/09/23 07/09/23 18:59 06:59 18:59 Output Total 250 300 125 Balance -250 -300 -125 Weight 85.729 kg Output: Urine 250 300 125 Other: Voiding Method Urinal Indwelling Catheter - Labs CBC & Chem 7: 07/09/23 07:22 07/09/23 07:22 Labs: Abnormal Lab Results - Last 24 Hours (Table) 07/08/23 07/08/23 07/08/23 Range/Units 10:47 12:11 17:01 WBC (3.8-10.6) k/uL RBC (4.30-5.90) m/uL Hgb (13.0-17.5) gm/dL Hct (39.0-53.0) % MCV (80.0-100.0) fL MCH (25.0-35.0) pg RDW (11.5-15.5) % Plt Count (150-450) k/uL Lymphocytes # (1.0-4.8) k/uL Macrocytosis Sodium 132 L (137-145) mmol/L BUN 56 H (9-20) mg/dL Creatinine 1.66 H (0.66-1.25) mg/dL Glucose 121 H (74-99) mg/dL POC Glucose (mg/dL) 161 H 148 H (70-110) mg/dL Calcium 7.2 L (8.4-10.2) mg/dL 07/08/23 07/09/23 07/09/23 Range/Units 20:53 07:22 07:22 WBC 2.5 L (3.8-10.6) k/uL RBC 1.83 L (4.30-5.90) m/uL Hgb 7.0 L (13.0-17.5) gm/dL Hct 21.3 L (39.0-53.0) % MCV 116.6 H (80.0-100.0) fL MCH 38.0 H (25.0-35.0) pg RDW 19.4 H (11.5-15.5) % Plt Count 39 L (150-450) k/uL Lymphocytes # 0.2 L (1.0-4.8) k/uL Macrocytosis Marked A Sodium 133 L (137-145) mmol/L BUN 56 H (9-20) mg/dL Creatinine 1.83 H (0.66-1.25) mg/dL Glucose (74-99) mg/dL POC Glucose (mg/dL) 112 H (70-110) mg/dL Calcium 7.1 L (8.4-10.2) mg/dL Assessment and Plan Plan: Assessment: 1. Acute kidney injury secondary to ATN secondary to hypotension. No proteinuria on UA. Creatinine fairly stable at 1.83 today. Creatinine 0.7 dated February 06, 2023. 2. Volume overload. 3. Moderate mitral regurgitation. 4. Hypotension. Cortisol level on the lower side. On hydrocortisone. Consider endocrinology evaluation outpatient for workup for adrenal insufficiency. 5. Hypervolemic hyponatremia. Better. 6. Pancytopenia being followed by hematology. Iron replete. 7. Hyperkalemia secondary to acute kidney injury and acidosis. Questionable adrenal insufficiency. Improved. Plan: Maintain IV Lasix 40 mg twice daily. Add Flomax. Avoid nephrotoxins. Continue to monitor renal function and urine output. Low-salt diet and 1500 mL fluid restriction.
[2023-07-09 11:51] LABS: Glucose,Whole Blood 126 mg/dL (70-110)
[2023-07-09] MEDS: TAMSULOSIN 0.4 MG CAP.ER.24H PO SCH (13:10)
[2023-07-09] MEDS: FAMOTIDINE 20 MG TAB PO SCH (13:12)
--- NOTE | 2023-07-09 13:26 | CT ---
EXAMINATION TYPE: CT brain wo con CT DLP: 1857 mGycm, Automated exposure control for dose reduction was used. DATE OF EXAM: 07/09/2023 1:20 PM COMPARISON: CT brain 06/22/2021 CLINICAL INDICATION:Male, 63 years old with history of r/o bleed, weakness, ams TECHNIQUE: Brain: Multiple axial CT images of the brain were obtained without IV contrast. Coronal and sagittal reformats reviewed. FINDINGS: Brain: Extra-axial spaces: No abnormal extra-axial fluid collections. Ventricular system: Within normal limits Cerebral parenchyma: No acute intraparenchymal hemorrhage or mass effect. The peck-white junction is well differentiated. Scattered hypoattenuating areas are seen within the white matter. Remote appea ring lacunar infarct within the right caudate nucleus head. Cerebellum: Unremarkable. Mass effect: No evidence of midline shift. Intracranial vasculature: Atherosclerotic calcifications of the intracranial vessels. Soft tissues: Normal. Calvarium/osseous structures: No depressed skull fracture. Paranasal sinuses and mastoid air cells: Partial opacification of the bilateral mastoid air cells. Li sincere cerumen within the right external auditory canal. Moderate mucosal thickening of the right maxil la sinus. Remaining paranasal sinuses are clear. Visualized orbits: Orbital contents are intact. IMPRESSION: 1. No acute intracranial process. 2. 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 3. Partial opacification of the bilateral mastoid air cells. Correlate for mastoiditis. 4. Moderate right maxillary sinus disease.
--- NOTE | 2023-07-09 13:34 | P.PN ---
Subjective Progress Note Date: 07/09/23 Principal diagnosis: COPD, shortness of breath, non-ST segment elevation myocardial infarction. Patient was reevaluated today on 07/05/2023,, patient is feeling better, he seems to be quite comfortable, he is actually on room air. His WBC count is 4.4 hemoglobin 7.9 electrolytes are normal except for sodium of 129 a uterine is 50 creatinine 1.52, steadily improving compared to a creatinine of 1.852 days ago. Serum cortisol was 8, hip x-rays showed mild right hip osteoarthritis otherwise no significant findings chest x-ray on admission showed chronic changes and no acute pulmonary process. Apparently someone ordered a VQ scan which showed no evidence of pulmonary embolism Patient was reevaluated today on 07/06/2023, pulmonary-nicole the patient is doing great, he is asymptomatic no cough no wheezing no shortness of breath, and the patient remains on room air. Patient is maintained on bicarb drip for his metabolic acidosis and this is being addressed by nephrology on the case. CT of the abdomen showed no obstruction and no hydronephrosis. Patient has been stea dily improving. His cortisol level was 8, however the patient was on methylprednisolone at 60 mg IV push every 6 hours, this is considered relatively extremely low cortisol, and the patient may have adrenal insufficiency. May have to seriously consider Cortrosyn stimulation test on this patient for 3 with Solu-Cortef, for presumptive adrenal insufficiency considering the cortisol level is that low in spite of being on methylprednisolone. Especially with the blood pressure being soft and seems to be on the low side today's labs continued to show hyponatremia and hyperkalemia with BUN of 57 creatinine 1.79 with WC out of 2.9 hemoglobin of 8 Patient was reevaluated today on 07/07/2023, patient seems to be doing well today, feeling much better, breathing a lot easier, he has hardly any pulmonary symptoms. And the patient remains on room air. Yesterday, I ordered a repeat serum cortisol level, and came back low again at 5 although the patient has been all along on methylprednisolone and on prednisone. Hence considering his hyponatremia and hyperkalemia and hypotension, I am strongly suspicious that we may be dealing with adrenal insufficiency. Will give the patient a trial of So madelin-Cortef, 100 mg IV push, unless we can actually do a Cortrosyn stimulation test on this patient prior to Solu-Cortef given. In the meantime I will go ahead and stop his prednisone and switch him to Solu-Cortef Today Were Reviewed Continues to Have Elevated BUN of 58 Creatinine 1.85 and Continues to Have Relative Hyponatremia and Hyperkalemia Progress note dated 07/08/2023. 63-year-old male seen today in room 374. Currently, the patient is on room air. The patient was receiving hydrocortisone 100 mg every 8 hours, given to him by my partner, for a cortisol level that was only 5. The patient's also getting saline at 75 mL an hour. Patient appears to be relatively stable. Labs today i nclude a sodium 132, potassium 4.7, chlorides 101, CO2 24, BUN 56, and creatinine 1.66. Glucose is 121. Progress note dated 07/09/2023. 63-year-old male seen today in room 374. Currently, the patient is on room air, with saturations of 93%. The patient is not receiving any IV fluids. The patie nt is on hydrocortisone for suspected relative adrenal insufficiency. Currently laboratory data includes a white count 2.5, hemoglobin 7, hematocrit 21.3, and a platelet count of 39,000. Sodium 133, potassium 4.5, chlorides 102, CO2 27, BUN 56, creatinine 1.83. Computed tomography scan of the brain shows no acute intracranial process. Objective - Vital Signs Vital signs: Vital Signs Temp 97.6 F 07/09/23 08:00 Pulse 72 07/09/23 11:51 Resp 18 07/09/23 08:00 BP 112/65 07/09/23 08:00 Pulse Ox 93 L 07/09/23 08:00 FiO2 21 07/05/23 09:14 Intake & Output 07/08/23 07/09/23 07/09/23 18:59 06:59 18:59 Output Total 250 300 125 Balance -250 -300 -125 Weight 85.729 kg Output: Urine 250 300 125 Other: Voiding Method Urinal Indwelling Catheter - Exam No acute distress, oriented 3. The patient's currently on room air. No respiratory distress. HEENT examination is grossly unremarkable. Mucous membranes are moist. No oral lesions. Neck supple. Full range of motion. No adenopathy thyromegaly or neck vein distention. Cardiovascular examination reveals regular rhythm rate. S1-S2 normal. No S3 or S4. No discernible murmur noted. Heart rate 72 bpm. Lungs reveal mostly clear breath sounds. Minimal rhonchi. No wheezes or crackles. Room air saturation 96 %. Abdomen soft bowel sounds are heard. No masses or tenderness. Extremities are intact. No cyanosis clubbing or edema. Skin is without rash or lesion. Neurologic examination is brief but nonfocal. - Labs CBC & Chem 7: 07/09/23 07:22 07/09/23 07:22 Labs: Abnormal Lab Results - Last 24 Hours (Table) 07/08/23 07/08/23 07/09/23 Range/Units 17:01 20:53 07:22 WBC 2.5 L (3.8-10.6) k/uL RBC 1.83 L (4.30-5.90) m/uL Hgb 7.0 L (13.0-17.5) gm/dL Hct 21.3 L (39.0-53.0) % MCV 116.6 H (80.0-100.0) fL MCH 38.0 H (25.0-35.0) pg RDW 19.4 H (11.5-15.5) % Plt Count 39 L (150-450) k/uL Lymphocytes # 0.2 L (1.0-4.8) k/uL Macrocytosis Marked A Sodium (137-145) mmol/L BUN (9-20) mg/dL Creatinine (0.66-1.25) mg/dL POC Glucose (mg/dL) 148 H 112 H (70-110) mg/dL Calcium (8.4-10.2) mg/dL 07/09/23 07/09/23 Range/Units 07:22 11:49 WBC (3.8-10.6) k/uL RBC (4.30-5.90) m/uL Hgb (13.0-17.5) gm/dL Hct (39.0-53.0) % MCV (80.0-100.0) fL MCH (25.0-35.0) pg RDW (11.5-15.5) % Plt Count (150-450) k/uL Lymphocytes # (1.0-4.8) k/uL Macrocytosis Sodium 133 L (137-145) mmol/L BUN 56 H (9-20) mg/dL Creatinine 1.83 H (0.66-1.25) mg/dL POC Glucose (mg/dL) 126 H (70-110) mg/dL Calcium 7.1 L (8.4-10.2) mg/dL Assessment and Plan Assessment: Acute hypoxemic respiratory failure secondary to COPD exacerbation. Elevated troponins, currently being addressed by cardiology. Non-anion gap metabolic acidosis. Acute kidney injury. Macrocytic anemia. Bicytopenia. History of alcohol abuse. Diabetes mellitus. Subclinical hypothyroidism. Chronic and ongoing tobacco dependence. Chronic low back pain. Possible adrenal insufficiency. Plan: Plan dated 07/08/2023. The patient is receiving Solu-Cortef, 100 mg, every 8 hours. It was started by my partner. Cortisol level was low at 5. Currently, the patient's on room air. The patient is getting saline at 75 mL an hour. We will continue to follow the patient and make recommendations along the way. Labs, x-rays, medications are reviewed. Prognosis is guarded. Plan dated 07/09/2023. The patient is seen today in room 374. The patient is not receiving any supplemental oxygen, or IV fluids. From our perspective, the patient could be considered for possible discharge. Additional recommendations and suggestions are forthcoming. Labs, x-rays, and medications are reviewed. We will continue to follow the patient should he stay in the hospital. Eventually, the hydrocortisone can be converted to Cortef, 20 mg in the morning, 10 mg in the evening Time with Patient: Less than 30
[2023-07-09] MEDS: HYDROcodone/APAP 7.5-325MG 1 EACH TAB PO PRN (16:00)
[2023-07-09 17:16] LABS: Glucose,Whole Blood 117 mg/dL (70-110)
[2023-07-09 20:35] LABS: Glucose,Whole Blood 85 mg/dL (70-110)
--- NOTE | 2023-07-09 23:37 | P.PN ---
Subjective Progress Note Date: 07/09/23 This is a 67 year old male who is admitted for acute COPD exacerbation, NSTEMI. Patient also has evidence of compression fracture and has TLSO brace. Patient continues with significant weakness. Noted to have increased lower extremity edema and was started on IV lasix Q12. PT/OT will be ordered. Patient continues to feel short of breath mostly with exertion. He is also being treated for a suspected adrenal insufficiency and remains on IV solucortef 100 mg Q8h. 07/09/2023 Patient is evaluated today sitting up at the edge of the bed. Continues on IV lasix, lower extremity edema has improved some would recommend to christa wrap the legs or use compression stockings and pt to elevate when sitting. No shortness of breath and remains on room air. Patient did have a fall overnight states he did not hit head but it was unwitnessed did have a drop in hemoglobin. Brain CT will be ordered to rule out bleed. Sodium 133 today, creatinine up to 1.83. Review of Systems Constitutional: Denied any fatigue denied any fever. Cardio vascular: denied any chest pain, palpitations Gastrointestinal: denied any nausea, vomiting, diarrhea Pulmonary: Denied any shortness of breath cough Neurologic denied any new focal deficits Reports weakness. All inpatient medications were reviewed and appropriate changes in these medications as dictated in the interval history and assessment and plan. PHYSICAL EXAMINATION: GENERAL: The patient is alert and oriented x3, not in any acute distress. Well developed, well nourished. Pale. Fatigued. HEENT: Pupils are round and equally reacting to light. EOMI. No scleral icterus. No conjunctival pallor. Normocephalic, atraumatic. No pharyngeal erythema. No thyromegaly. CARDIOVASCULAR: S1 and S2 present. No murmurs, rubs, or gallops. PULMONARY: Chest is clear to auscultation, no wheezing or crackles. ABDOMEN: Soft, nontender, nondistended, normoactive bowel sounds. No palpable organomegaly. MUSCULOSKELETAL: No joint swelling or deformity. EXTREMITIES: No cyanosis, clubbing, 2+ lower extremity edema NEUROLOGICAL: Significant generalized weakness. SKIN: No rashes. Assessment -Status post fall with compression fracture of L3 spine has TLSO brace -Elevated troponin type II [place] -COPD exacerbation with acute hypoxic respiratory failure currently weaned to r oom air -Acute hyponatremia -Suspected adrenal insufficiency maintained on IV solucortef -Hyperkalemia improved -Acute kidney injury secondary to ATN improved with LR and then worsened -Metabolic acidosis improved -Transient hypotension -Bicytopenia macrocytic -Cirrhotic liver seen on computed tomography scan GI prophylaxis DVT prophylaxis deferred Full Code Plan -Physical therapy has been consulted for evaluation -Heparin was discontinued secondary to anemia, OK for DVT prophylaxis per hematology if platelet count above 50,000. Today was 39,000. -Needs GI follow up outpatient for the liver cirrhosis -Continues on IV solucortef will need to DC on orals and follow up with endocrine -Fluids were discontinued today patient was started on IV lasix recommend strict I and Os. -Brain CT ordered -Follow up labs in AM The impression and plan of care has been dictated by Rebekah Augustin, Nurse Practitioner as directed. Dr. Willard MD I have performed a history and physical examination and medical decision making of this patient, discussed the same with the dictator, and agree with the dictators assessment and plan as written, documented as a scribe. Based on total visit time, I have performed more than 50% of this visit. Objective - Vital Signs Vital signs: Vital Signs Temp 97.6 F 07/09/23 08:00 Pulse 72 07/09/23 11:51 Resp 18 07/09/23 08:00 BP 112/65 07/09/23 08:00 Pulse Ox 93 L 07/09/23 08:00 FiO2 21 07/05/23 09:14 Intake & Output 07/08/23 07/09/23 07/09/23 18:59 06:59 18:59 Output Total 250 300 125 Balance -250 -300 -125 Weight 85.729 kg Output: Urine 250 300 125 Other: Voiding Method Urinal Indwelling Catheter - Labs CBC & Chem 7: 07/09/23 07:22 07/09/23 07:22 Labs: Abnormal Lab Results - Last 24 Hours (Table) 07/08/23 07/08/23 07/09/23 Range/Units 17:01 20:53 07:22 WBC 2.5 L (3.8-10.6) k/uL RBC 1.83 L (4.30-5.90) m/uL Hgb 7.0 L (13.0-17.5) gm/dL Hct 21.3 L (39.0-53.0) % MCV 116.6 H (80.0-100.0) fL MCH 38.0 H (25.0-35.0) pg RDW 19.4 H (11.5-15.5) % Plt Count 39 L (150-450) k/uL Lymphocytes # 0.2 L (1.0-4.8) k/uL Macrocytosis Marked A Sodium (137-145) mmol/L BUN (9-20) mg/dL Creatinine (0.66-1.25) mg/dL POC Glucose (mg/dL) 148 H 112 H (70-110) mg/dL Calcium (8.4-10.2) mg/dL 07/09/23 07/09/23 Range/Units 07:22 11:49 WBC (3.8-10.6) k/uL RBC (4.30-5.90) m/uL Hgb (13.0-17.5) gm/dL Hct (39.0-53.0) % MCV (80.0-100.0) fL MCH (25.0-35.0) pg RDW (11.5-15.5) % Plt Count (150-450) k/uL Lymphocytes # (1.0-4.8) k/uL Macrocytosis Sodium 133 L (137-145) mmol/L BUN 56 H (9-20) mg/dL Creatinine 1.83 H (0.66-1.25) mg/dL POC Glucose (mg/dL) 126 H (70-110) mg/dL Calcium 7.1 L (8.4-10.2) mg/dL Assessment and Plan Time with Patient: Less than 30
[2023-07-10] MEDS: HYDROCORTISONE SUCCINATE 100 MG/2 ML VIAL IV SCH (00:47)
[2023-07-10 06:31] LABS: Glucose,Whole Blood 66 mg/dL (70-110)
[2023-07-10] MEDS: INSULIN DETEMIR (LEVEMIR) 100 UNIT/ML SYR SQ SCH ×2 (06:34→09:13)
[2023-07-10 06:48] LABS: Anisocytosis Slight; Basophils % (A) 0 %; Eosinophils % (A) 0 %; HCT 21.2 % (39.0-53.0); Hypochromasia Slight; Lymphocytes # (A) 0.3 k/uL (1.0-4.8); Lymphocytes % (A) 9 %; MCH 38.6 pg (25.0-35.0); MCHC 33.2 g/dL (31.0-37.0); MCV 116.4 fL (80.0-100.0); Macrocytosis Marked; Mean Platelet Volume 9.5; Monocytes # (A) 0.1 k/uL (0-1.0); Monocytes % (A) 4 %; Neutrophils # (A) 2.9 k/uL (1.3-7.7); Neutrophils % (A) 87 %; Platelet Count 46 k/uL (150-450); RBC 1.82 m/uL (4.30-5.90); RDW 18.9 % (11.5-15.5); WBC 3.3 k/uL (3.8-10.6)
[2023-07-10 06:48] LABS: Glucose,Whole Blood 77 mg/dL (70-110)
[2023-07-10 07:10] LABS: African American GFR (CKD) 36 (>60 ml/min/1.73 sqM); Anion Gap 8 mmol/L; Blood Urea Nitrogen 63 mg/dL (9-20); Calcium 7.5 mg/dL (8.4-10.2); Carbon Dioxide 23 mmol/L (22-30); Chloride 101 mmol/L (98-107); Glucose 60 mg/dL (74-99); Magnesium 1.8 mg/dL (1.6-2.3); Non-African American GFR(CKD) 31 (>60 ml/min/1.73 sqM); Potassium 4.5 mmol/L (3.5-5.1); Sodium 132 mmol/L (137-145)
[2023-07-10] MEDS: INSULIN ASPART (NovoLOG) 100 UNIT/ML VIAL SQ SCH ×7 (08:10→20:55)
--- NOTE | 2023-07-10 08:20 | P.PN ---
Subjective Progress Note Date: 07/10/23 Principal diagnosis: COPD, shortness of breath, non-ST segment elevation myocardial infarction. Patient was reevaluated today on 07/05/2023,, patient is feeling better, he seems to be quite comfortable, he is actually on room air. His WBC count is 4.4 hemoglobin 7.9 electrolytes are normal except for sodium of 129 a uterine is 50 creatinine 1.52, steadily improving compared to a creatinine of 1.852 days ago. Serum cortisol was 8, hip x-rays showed mild right hip osteoarthritis otherwise no significant findings chest x-ray on admission showed chronic changes and no acute pulmonary process. Apparently someone ordered a VQ scan which showed no evidence of pulmonary embolism Patient was reevaluated today on 07/06/2023, pulmonary-nicole the patient is doing great, he is asymptomatic no cough no wheezing no shortness of breath, and the patient remains on room air. Patient is maintained on bicarb drip for his metabolic acidosis and this is being addressed by nephrology on the case. CT of the abdomen showed no obstruction and no hydronephrosis. Patient has been stea dily improving. His cortisol level was 8, however the patient was on methylprednisolone at 60 mg IV push every 6 hours, this is considered relatively extremely low cortisol, and the patient may have adrenal insufficiency. May have to seriously consider Cortrosyn stimulation test on this patient for 3 with Solu-Cortef, for presumptive adrenal insufficiency considering the cortisol level is that low in spite of being on methylprednisolone. Especially with the blood pressure being soft and seems to be on the low side today's labs continued to show hyponatremia and hyperkalemia with BUN of 57 creatinine 1.79 with WC out of 2.9 hemoglobin of 8 Patient was reevaluated today on 07/07/2023, patient seems to be doing well today, feeling much better, breathing a lot easier, he has hardly any pulmonary symptoms. And the patient remains on room air. Yesterday, I ordered a repeat serum cortisol level, and came back low again at 5 although the patient has been all along on methylprednisolone and on prednisone. Hence considering his hyponatremia and hyperkalemia and hypotension, I am strongly suspicious that we may be dealing with adrenal insufficiency. Will give the patient a trial of So madelin-Cortef, 100 mg IV push, unless we can actually do a Cortrosyn stimulation test on this patient prior to Solu-Cortef given. In the meantime I will go ahead and stop his prednisone and switch him to Solu-Cortef Today Were Reviewed Continues to Have Elevated BUN of 58 Creatinine 1.85 and Continues to Have Relative Hyponatremia and Hyperkalemia Progress note dated 07/08/2023. 63-year-old male seen today in room 374. Currently, the patient is on room air. The patient was receiving hydrocortisone 100 mg every 8 hours, given to him by my partner, for a cortisol level that was only 5. The patient's also getting saline at 75 mL an hour. Patient appears to be relatively stable. Labs today i nclude a sodium 132, potassium 4.7, chlorides 101, CO2 24, BUN 56, and creatinine 1.66. Glucose is 121. Progress note dated 07/09/2023. 63-year-old male seen today in room 374. Currently, the patient is on room air, with saturations of 93%. The patient is not receiving any IV fluids. The patie nt is on hydrocortisone for suspected relative adrenal insufficiency. Currently laboratory data includes a white count 2.5, hemoglobin 7, hematocrit 21.3, and a platelet count of 39,000. Sodium 133, potassium 4.5, chlorides 102, CO2 27, BUN 56, creatinine 1.83. Computed tomography scan of the brain shows no acute intracranial process. Progress note dated 07/10/2023. 63-year-old male who was seen in room 628. The patient was seen yesterday on the third floor. The patient was admitted with a COPD exacerbation. Currently, he's on appropriate medications including Symbicort, albuterol, ipratropium bromide, and prednisone. In addition, he had a low cortisol level, and he was started on hydrocortisone IV, and, today is switched to Cortef, 20 mg in the morning, 10 mg the evening. Currently, the patient is receiving Lasix twice a day IV, as he has significant edema and anasarca. He has significant lower extremity edema. She denies any breathing issues. He was smoking up until time he came into the hospital. Current laboratory includes a white count 3.3, hemoglobin 7, hematocrit 21.2, and a platelet count of 46,000. The CBC profile is consistent with pancytopenia. Sodium 132, potassium 4.5, chlorides 101, CO2 23, BUN 63, creatinine 2.22. Objective - Vital Signs Vital signs: Vital Signs Temp 98.6 F 07/10/23 07:17 Pulse 54 L 07/10/23 07:17 Resp 16 07/10/23 07:17 BP 78/54 07/10/23 07:17 Pulse Ox 100 07/10/23 07:17 FiO2 21 07/05/23 09:14 Intake & Output 07/09/23 07/10/23 07/10/23 18:59 06:59 18:59 Output Total 225 0 Balance -225 0 Output: Urine 225 0 - Exam No acute distress, oriented 3. The patient's currently on room air. No respiratory distress. HEENT examination is grossly unremarkable. Mucous membranes are moist. No oral lesions. Neck supple. Full range of motion. No adenopathy thyromegaly or neck vein distention. Cardiovascular examination reveals regular rhythm rate. S1-S2 normal. No S3 or S4. No discernible murmur noted. Heart rate 54 bpm. Lungs reveal mostly clear breath sounds. Minimal rhonchi. No wheezes or crackles. Room air saturation 98 %. Abdomen soft bowel sounds are heard. No masses or tenderness. Extremities are intact. No cyanosis or clubbing. The patient has significant pitting edema in the lower extremities. Skin is without rash. Multiple areas of ecchymoses. Neurologic examination is brief but nonfocal. - Labs CBC & Chem 7: 07/10/23 05:58 07/10/23 05:58 Labs: Abnormal Lab Results - Last 24 Hours (Table) 07/09/23 07/09/23 07/09/23 Range/Units 07:22 07:22 11:49 WBC 2.5 L (3.8-10.6) k/uL RBC 1.83 L (4.30-5.90) m/uL Hgb 7.0 L (13.0-17.5) gm/dL Hct 21.3 L (39.0-53.0) % MCV 116.6 H (80.0-100.0) fL MCH 38.0 H (25.0-35.0) pg RDW 19.4 H (11.5-15.5) % Plt Count 39 L (150-450) k/uL Lymphocytes # 0.2 L (1.0-4.8) k/uL Macrocytosis Marked A Sodium 133 L (137-145) mmol/L BUN 56 H (9-20) mg/dL Creatinine 1.83 H (0.66-1.25) mg/dL Glucose (74-99) mg/dL POC Glucose (mg/dL) 126 H (70-110) mg/dL Calcium 7.1 L (8.4-10.2) mg/dL 07/09/23 07/10/23 07/10/23 Range/Units 16:56 05:58 05:58 WBC 3.3 L (3.8-10.6) k/uL RBC 1.82 L (4.30-5.90) m/uL Hgb 7.0 L (13.0-17.5) gm/dL Hct 21.2 L (39.0-53.0) % MCV 116.4 H (80.0-100.0) fL MCH 38.6 H (25.0-35.0) pg RDW 18.9 H (11.5-15.5) % Plt Count 46 L (150-450) k/uL Lymphocytes # 0.3 L (1.0-4.8) k/uL Macrocytosis Marked A Sodium 132 L (137-145) mmol/L BUN 63 H (9-20) mg/dL Creatinine 2.22 H (0.66-1.25) mg/dL Glucose 60 L (74-99) mg/dL POC Glucose (mg/dL) 117 H (70-110) mg/dL Calcium 7.5 L (8.4-10.2) mg/dL 07/10/23 Range/Units 06:29 WBC (3.8-10.6) k/uL RBC (4.30-5.90) m/uL Hgb (13.0-17.5) gm/dL Hct (39.0-53.0) % MCV (80.0-100.0) fL MCH (25.0-35.0) pg RDW (11.5-15.5) % Plt Count (150-450) k/uL Lymphocytes # (1.0-4.8) k/uL Macrocytosis Sodium (137-145) mmol/L BUN (9-20) mg/dL Creatinine (0.66-1.25) mg/dL Glucose (74-99) mg/dL POC Glucose (mg/dL) 66 L (70-110) mg/dL Calcium (8.4-10.2) mg/dL Assessment and Plan Assessment: Acute hypoxemic respiratory failure secondary to COPD exacerbation. Elevated troponins, currently being addressed by cardiology. Non-anion gap metabolic acidosis. Acute kidney injury. Macrocytic anemia. Pancytopenia. History of alcohol abuse. Diabetes mellitus. Subclinical hypothyroidism. Chronic and ongoing tobacco dependence. Chronic low back pain. Probable adrenal insufficiency. Plan: Plan dated 07/08/2023. The patient is receiving Solu-Cortef, 100 mg, every 8 hours. It was started by my partner. Cortisol level was low at 5. Currently, the patient's on room air. The patient is getting saline at 75 mL an hour. We will continue to follow the patient and make recommendations along the way. Labs, x-rays, medications are reviewed. Prognosis is guarded. Plan dated 07/09/2023. The patient is seen today in room 374. The patient is not receiving any supplemental oxygen, or IV fluids. From our perspective, the patient could be considered for possible discharge. Additional recommendations and suggestions are forthcoming. Labs, x-rays, and medications are reviewed. We will continue to follow the patient should he stay in the hospital. Eventually, the h ydrocortisone can be converted to Cortef, 20 mg in the morning, 10 mg in the evening Plan dated 07/10/2023. The patient is seen today in room 628. Yesterday, he was room 374. Solu-Cortef was discontinued in favor of Cortef, 10 mg in the evening, 20 mg in the morning. In addition, the patient's receiving Lasix for his diffuse edema and anasarca. The patient does have pancytopenia, which is being addressed, by hematology. Currently, he's on DuoNeb nebs, Symbicort, and oral prednisone 40 mg a day. Additional recommendations and suggestions are forthcoming. He's on room air. No IV fluids. Current respiratory status is stable. We will continue to follow make recommendations along the way. Prognosis is guarded. Time with Patient: Less than 30
[2023-07-10] MEDS: HYDROCORTISONE 20 MG TAB PO SCH (09:07)
[2023-07-10] MEDS: FOLIC ACID 1 MG TAB PO SCH (09:07)
[2023-07-10] MEDS: MIDODRINE 5 MG TAB PO SCH ×3 (09:07→17:46)
[2023-07-10] MEDS: TAMSULOSIN 0.4 MG CAP.ER.24H PO SCH (09:07)
[2023-07-10] MEDS: FAMOTIDINE 20 MG TAB PO SCH (09:08)
[2023-07-10] MEDS: CHOLECALCIFEROL 25 MCG (1000 IU) TABLET PO SCH (09:08)
[2023-07-10] MEDS: METOPROLOL TARTRATE 12.5 MG TAB PO SCH ×2 (09:08→20:56)
[2023-07-10] MEDS: THIAMINE 100 MG TAB PO SCH (09:08)
[2023-07-10] MEDS: SYMBICORT 160-4.5 MCG INHALER INHALATION SCH ×2 (09:32→20:03)
[2023-07-10] MEDS: IPRATROPIUM-ALBUTEROL 3 ML NEB INHALATION SCH ×4 (09:34→20:04)
[2023-07-10] MEDS: HYDROcodone/APAP 7.5-325MG 1 EACH TAB PO PRN ×2 (10:59→17:45)
--- NOTE | 2023-07-10 12:03 | P.PN ---
Subjective Patient is seen in follow-up for acute kidney injury. Renal function worse from diuresis. On IV Lasix. Oral intake better. Blood pressure on the lower side. Has Charles catheter for urinary retention. Vital signs are stable. General: No acute distress. HEENT: Head exam is unremarkable. LUNGS: No audible rhonchi or wheezes. HEART: Rate and Rhythm are regular. ABDOMEN: Nontender. EXTREMITITES: 2+ edema. Objective - Vital Signs Vital signs: Vital Signs Temp 98.6 F 07/10/23 07:17 Pulse 102 H 07/10/23 11:08 Resp 16 07/10/23 08:00 BP 102/62 07/10/23 11:08 Pulse Ox 100 07/10/23 07:17 FiO2 21 07/05/23 09:14 Intake & Output 07/09/23 07/10/23 07/10/23 18:59 06:59 18:59 Intake Total 118 Output Total 225 0 Balance -225 0 118 Intake: Oral 118 Output: Urine 225 0 Other: Voiding Method Indwelling Catheter - Labs CBC & Chem 7: 07/10/23 05:58 07/10/23 05:58 Labs: Abnormal Lab Results - Last 24 Hours (Table) 07/09/23 07/10/23 07/10/23 Range/Units 16:56 05:58 05:58 WBC 3.3 L (3.8-10.6) k/uL RBC 1.82 L (4.30-5.90) m/uL Hgb 7.0 L (13.0-17.5) gm/dL Hct 21.2 L (39.0-53.0) % MCV 116.4 H (80.0-100.0) fL MCH 38.6 H (25.0-35.0) pg RDW 18.9 H (11.5-15.5) % Plt Count 46 L (150-450) k/uL Lymphocytes # 0.3 L (1.0-4.8) k/uL Macrocytosis Marked A Sodium 132 L (137-145) mmol/L BUN 63 H (9-20) mg/dL Creatinine 2.22 H (0.66-1.25) mg/dL Glucose 60 L (74-99) mg/dL POC Glucose (mg/dL) 117 H (70-110) mg/dL Calcium 7.5 L (8.4-10.2) mg/dL 07/10/23 Range/Units 06:29 WBC (3.8-10.6) k/uL RBC (4.30-5.90) m/uL Hgb (13.0-17.5) gm/dL Hct (39.0-53.0) % MCV (80.0-100.0) fL MCH (25.0-35.0) pg RDW (11.5-15.5) % Plt Count (150-450) k/uL Lymphocytes # (1.0-4.8) k/uL Macrocytosis Sodium (137-145) mmol/L BUN (9-20) mg/dL Creatinine (0.66-1.25) mg/dL Glucose (74-99) mg/dL POC Glucose (mg/dL) 66 L (70-110) mg/dL Calcium (8.4-10.2) mg/dL Assessment and Plan Plan: Assessment: 1. Acute kidney injury secondary to ATN secondary to hypotension. No proteinuria on UA. Creatinine 2.22 today. Creatinine 0.7 dated February 06, 2023. 2. Volume overload. 3. Moderate mitral regurgitation. 4. Hypotension. Cortisol level on the lower side. On hydrocortisone. Consider endocrinology evaluation outpatient for workup for adrenal insufficiency. 5. Hypervolemic hyponatremia. 6. Pancytopenia being followed by hematology. Iron replete. 7. Hyperkalemia secondary to acute kidney injury and acidosis. Questionable adrenal insufficiency. Improved. 8. Urinary retention. Has Charles catheter. Plan: Maintain IV Lasix 40 mg twice daily. Avoid nephrotoxins. Continue to monitor renal function and urine output. Low-salt diet and 1500 mL fluid restriction. Maintain midodrine. Hold Flomax as blood pressure currently low.
[2023-07-10 12:06] LABS: Glucose,Whole Blood 151 mg/dL (70-110)
[2023-07-10] MEDS: FUROSEMIDE 10 MG/ML 4 ML VIAL IV SCH ×2 (12:34→20:58)
--- NOTE | 2023-07-10 15:31 | P.PN ---
Subjective Progress Note Date: 07/10/23 This is a 67 year old male who is admitted for acute COPD exacerbation, NSTEMI. Patient also has evidence of compression fracture and has TLSO brace. Patient continues with significant weakness. Noted to have increased lower extremity edema and was started on IV lasix Q12. PT/OT will be ordered. Patient continues to feel short of breath mostly with exertion. He is also being treated for a suspected adrenal insufficiency and remains on IV solucortef 100 mg Q8h. 07/09/2023 Patient is evaluated today sitting up at the edge of the bed. Continues on IV lasix, lower extremity edema has improved some would recommend to christa wrap the legs or use compression stockings and pt to elevate when sitting. No shortness of breath and remains on room air. Patient did have a fall overnight states he did not hit head but it was unwitnessed did have a drop in hemoglobin. Brain CT will be ordered to rule out bleed. Sodium 133 today, creatinine up to 1.83. 07/10/2023 Patient is evaluated today sitting up in the chair. He was moved to the medical surgical unit from stepdown yesterday. He continues on IV Lasix 40 mg every 12 hours. Nephrology is following closely. His creatinine today is up to 2.22. Additionally his hemoglobin is again 7.0.1 Unit of packed red blood cells has been ordered. Patient is also on midodrine 10 mg 3 times a day. Blood pressure is marginal with a low of 78/54 this AM. Amlodipine and lisinopril are being held. 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 There is partial opacification of the bilateral mastoid air cells correlate for mastoiditis. There is moderate right maxillary sinus disease. He reports his headache has improved. He denies any prior history of stroke. Continues to report significant pain in the right hip. Patient remains an abnormal cosyntropin 0.5 every 8 hours and lidocaine patches also added. Orthopedics recommended conservative management for the muscular skeletal pain. Review of Systems Constitutional: Reports fatigue, denied any fever. Cardio vascular: denied any chest pain, palpitations Gastrointestinal: denied any nausea, vomiting, diarrhea Pulmonary: Denied any shortness of breath cough Neurologic denied any new focal deficits Reports weakness. All inpatient medications were reviewed and appropriate changes in these medications as dictated in the interval history and assessment and plan. PHYSICAL EXAMINATION: GENERAL: The patient is alert and oriented x3, not in any acute distress. Well developed, well nourished. Pale. Fatigued. HEENT: Pupils are round and equally reacting to light. EOMI. No scleral icterus. No conjunctival pallor. Normocephalic, atraumatic. No pharyngeal erythema. No thyromegaly. CARDIOVASCULAR: S1 and S2 present. No murmurs, rubs, or gallops. PULMONARY: Chest is clear to auscultation, no wheezing or crackles. ABDOMEN: Soft, nontender, nondistended, normoactive bowel sounds. No palpable organomegaly. MUSCULOSKELETAL: No joint swelling or deformity. EXTREMITIES: No cyanosis, clubbing, 2+ lower extremity edema NEUROLOGICAL: Significant generalized weakness. SKIN: No rashes. Assessment -Status post fall with compression fracture of L3 spine has LSO brace at home does not like wearing. -Elevated troponin type II PR -COPD exacerbation with acute hypoxic respiratory failure currently weaned to room air -Acute hyponatremia -Ascites and concern of liver cirrhosis on abdominal pelvis CT. -Suspected adrenal insufficiency maintained on IV solucortef -Hyperkalemia improved -Acute kidney injury secondary to ATN improved with LR and then worsened -Metabolic acidosis improved -Transient hypotension -Bicytopenia macrocytic GI prophylaxis DVT prophylaxis deferred Full Code Plan -Physical therapy has been consulted for evaluation -Heparin was discontinued secondary to anemia, OK for DVT prophylaxis per hematology if platelet count above 50,000. Today was 46,000. -Needs GI follow up outpatient for the liver cirrhosis -Transitioned to oral hydrocortisone and will need to f/u with endocrinology outpatient. -Fluids were discontinued today patient was started on IV lasix recommend strict I and Os. -Follow up labs in AM The impression and plan of care has been dictated by Rebekah Augustin Nurse Practitioner as directed. Dr. Willard MD I have performed a history and physical examination and medical decision making of this patient, discussed the same with the dictator, and agree with the dic tators assessment and plan as written, documented as a scribe. Based on total visit time, I have performed more than 50% of this visit. Objective - Vital Signs Vital signs: Vital Signs Temp 97.6 F 07/10/23 14:00 Pulse 81 07/10/23 14:00 Resp 16 07/10/23 14:00 BP 102/62 07/10/23 14:00 Pulse Ox 97 07/10/23 14:00 FiO2 21 07/05/23 09:14 Intake & Output 07/09/23 07/10/23 07/10/23 18:59 06:59 18:59 Intake Total 709 Output Total 225 0 Balance -225 0 709 Intake: Oral 709 Output: Urine 225 0 Other: Voiding Method Indwelling Catheter - Labs CBC & Chem 7: 07/10/23 05:58 07/10/23 05:58 Labs: Abnormal Lab Results - Last 24 Hours (Table) 07/09/23 07/10/23 07/10/23 Range/Units 16:56 05:58 05:58 WBC 3.3 L (3.8-10.6) k/uL RBC 1.82 L (4.30-5.90) m/uL Hgb 7.0 L (13.0-17.5) gm/dL Hct 21.2 L (39.0-53.0) % MCV 116.4 H (80.0-100.0) fL MCH 38.6 H (25.0-35.0) pg RDW 18.9 H (11.5-15.5) % Plt Count 46 L (150-450) k/uL Lymphocytes # 0.3 L (1.0-4.8) k/uL Macrocytosis Marked A Sodium 132 L (137-145) mmol/L BUN 63 H (9-20) mg/dL Creatinine 2.22 H (0.66-1.25) mg/dL Glucose 60 L (74-99) mg/dL POC Glucose (mg/dL) 117 H (70-110) mg/dL Calcium 7.5 L (8.4-10.2) mg/dL 07/10/23 07/10/23 Range/Units 06:29 12:05 WBC (3.8-10.6) k/uL RBC (4.30-5.90) m/uL Hgb (13.0-17.5) gm/dL Hct (39.0-53.0) % MCV (80.0-100.0) fL MCH (25.0-35.0) pg RDW (11.5-15.5) % Plt Count (150-450) k/uL Lymphocytes # (1.0-4.8) k/uL Macrocytosis Sodium (137-145) mmol/L BUN (9-20) mg/dL Creatinine (0.66-1.25) mg/dL Glucose (74-99) mg/dL POC Glucose (mg/dL) 66 L 151 H (70-110) mg/dL Calcium (8.4-10.2) mg/dL Assessment and Plan Time with Patient: Less than 30
[2023-07-10] MEDS: LIDOCAINE 5% PATCH TOPICAL SCH (15:36)
--- NOTE | 2023-07-10 16:29 | P.PN ---
Subjective Progress Note Date: 07/10/23 Principal diagnosis: Bicytopenia In follow-up today patient has no new complaints, anasarca is stable, some improvements, feels a little less short of breath with exertion, still complains of generalized weakness. Objective - Vital Signs Vital signs: Vital Signs Temp 98.6 F 07/10/23 07:17 Pulse 102 H 07/10/23 11:08 Resp 16 07/10/23 08:00 BP 102/62 07/10/23 11:08 Pulse Ox 100 07/10/23 07:17 FiO2 21 07/05/23 09:14 Intake & Output 07/09/23 07/10/23 07/10/23 18:59 06:59 18:59 Intake Total 118 Output Total 225 0 Balance -225 0 118 Intake: Oral 118 Output: Urine 225 0 Other: Voiding Method Indwelling Catheter - Constitutional Constitutional Comment(s): anasarca, improved General appearance: Present: average body habitus, cooperative, no acute distress - EENT Eyes: Present: anicteric sclerae, EOMI ENT: Present: hearing grossly normal - Respiratory Details: Respirations even and unlabored at rest - Neurologic Neurologic: Present: CNII-XII intact - Musculoskeletal Musculoskeletal: Present: generalized weakness - Psychiatric Psychiatric: Present: A&O x's 3, appropriate affect, intact judgment & insight - Labs CBC & Chem 7: 07/10/23 05:58 07/10/23 05:58 Labs: Abnormal Lab Results - Last 24 Hours (Table) 07/09/23 07/09/23 07/10/23 Range/Units 11:49 16:56 05:58 WBC (3.8-10.6) k/uL RBC (4.30-5.90) m/uL Hgb (13.0-17.5) gm/dL Hct (39.0-53.0) % MCV (80.0-100.0) fL MCH (25.0-35.0) pg RDW (11.5-15.5) % Plt Count (150-450) k/uL Lymphocytes # (1.0-4.8) k/uL Macrocytosis Sodium 132 L (137-145) mmol/L BUN 63 H (9-20) mg/dL Creatinine 2.22 H (0.66-1.25) mg/dL Glucose 60 L (74-99) mg/dL POC Glucose (mg/dL) 126 H 117 H (70-110) mg/dL Calcium 7.5 L (8.4-10.2) mg/dL 07/10/23 07/10/23 Range/Units 05:58 06:29 WBC 3.3 L (3.8-10.6) k/uL RBC 1.82 L (4.30-5.90) m/uL Hgb 7.0 L (13.0-17.5) gm/dL Hct 21.2 L (39.0-53.0) % MCV 116.4 H (80.0-100.0) fL MCH 38.6 H (25.0-35.0) pg RDW 18.9 H (11.5-15.5) % Plt Count 46 L (150-450) k/uL Lymphocytes # 0.3 L (1.0-4.8) k/uL Macrocytosis Marked A Sodium (137-145) mmol/L BUN (9-20) mg/dL Creatinine (0.66-1.25) mg/dL Glucose (74-99) mg/dL POC Glucose (mg/dL) 66 L (70-110) mg/dL Calcium (8.4-10.2) mg/dL Assessment and Plan (1) Bicytopenia Current Visit: Yes Status: Acute Priority: High Code(s): D75.89 - OTHER SPECIFIED DISEASES OF BLOOD AND BLOOD-FORMING ORGANS SNOMED Code(s): 85835589 Plan: Bicytopenia, Anemia, thrombocytopenia -multifactorial-CKD, ETOH marrow damage exacerbated by acute infection/stress, chronic inflammation and nutritional deficiency -Low folic acid, supplement started -Copper levels low, recommended [id number] copper supplement for 30 days with a recheck by his PCP. Copper supplement is not for long-term use. -Hepatitis panel neg, HIV neg, no other deficiencies found. Occult ordered -Recommend GI f/u (esophageal varices seen on CT, cirrhosis) -Monitor CBC -Transfuse for hemoglobin less than 7 unless patient is symptomatic. Patient has Received 1 unit PRBCs, no transfusions needed since. -Transfuse for platelets less than 10,000 unless patient is symptomatic. P atient has not required platelet transfusion. As long as platelets remain greater than 50,000 patient is okay for DVT prophylaxis
[2023-07-10 17:19] LABS: Glucose,Whole Blood 135 mg/dL (70-110)
[2023-07-10 20:56] LABS: Glucose,Whole Blood 95 mg/dL (70-110)
[2023-07-10] MEDS: HYDROCORTISONE 10 MG TAB PO SCH (20:58)
[2023-07-11 06:20] LABS: Anisocytosis Slight; Basophils % (A) 0 %; Eosinophils % (A) 1 %; HCT 20.9 % (39.0-53.0); Hypochromasia Slight; Lymphocytes # (A) 0.6 k/uL (1.0-4.8); Lymphocytes % (A) 15 %; MCH 37.9 pg (25.0-35.0); MCHC 32.6 g/dL (31.0-37.0); MCV 116.3 fL (80.0-100.0); Macrocytosis Marked; Mean Platelet Volume 9.8; Monocytes # (A) 0.2 k/uL (0-1.0); Monocytes % (A) 5 %; Neutrophils # (A) 3.3 k/uL (1.3-7.7); Neutrophils % (A) 78 %; RDW 18.9 % (11.5-15.5); WBC 4.2 k/uL (3.8-10.6)
[2023-07-11 06:26] LABS: Glucose,Whole Blood 76 mg/dL (70-110)
[2023-07-11] MEDS: INSULIN ASPART (NovoLOG) 100 UNIT/ML VIAL SQ SCH ×7 (06:33→20:01)
[2023-07-11] MEDS: INSULIN DETEMIR (LEVEMIR) 100 UNIT/ML SYR SQ SCH (06:36)
[2023-07-11 06:37] LABS: African American GFR (CKD) 31 (>60 ml/min/1.73 sqM); Anion Gap 7 mmol/L; Blood Urea Nitrogen 65 mg/dL (9-20); Calcium 7.5 mg/dL (8.4-10.2); Carbon Dioxide 24 mmol/L (22-30); Chloride 100 mmol/L (98-107); Glucose 63 mg/dL (74-99); Non-African American GFR(CKD) 27 (>60 ml/min/1.73 sqM); Potassium 4.1 mmol/L (3.5-5.1); Sodium 131 mmol/L (137-145)
[2023-07-11 07:16] LABS: HGB 6.8 gm/dL (13.0-17.5); Platelet Count 50 k/uL (150-450)
--- NOTE | 2023-07-11 08:31 | P.PN ---
Subjective Progress Note Date: 07/11/23 Principal diagnosis: COPD, shortness of breath, non-ST segment elevation myocardial infarction. Patient was reevaluated today on 07/05/2023,, patient is feeling better, he seems to be quite comfortable, he is actually on room air. His WBC count is 4.4 hemoglobin 7.9 electrolytes are normal except for sodium of 129 a uterine is 50 creatinine 1.52, steadily improving compared to a creatinine of 1.852 days ago. Serum cortisol was 8, hip x-rays showed mild right hip osteoarthritis otherwise no significant findings chest x-ray on admission showed chronic changes and no acute pulmonary process. Apparently someone ordered a VQ scan which showed no evidence of pulmonary embolism Patient was reevaluated today on 07/06/2023, pulmonary-nicole the patient is doing great, he is asymptomatic no cough no wheezing no shortness of breath, and the patient remains on room air. Patient is maintained on bicarb drip for his metabolic acidosis and this is being addressed by nephrology on the case. CT of the abdomen showed no obstruction and no hydronephrosis. Patient has been stea dily improving. His cortisol level was 8, however the patient was on methylprednisolone at 60 mg IV push every 6 hours, this is considered relatively extremely low cortisol, and the patient may have adrenal insufficiency. May have to seriously consider Cortrosyn stimulation test on this patient for 3 with Solu-Cortef, for presumptive adrenal insufficiency considering the cortisol level is that low in spite of being on methylprednisolone. Especially with the blood pressure being soft and seems to be on the low side today's labs continued to show hyponatremia and hyperkalemia with BUN of 57 creatinine 1.79 with WC out of 2.9 hemoglobin of 8 Patient was reevaluated today on 07/07/2023, patient seems to be doing well today, feeling much better, breathing a lot easier, he has hardly any pulmonary symptoms. And the patient remains on room air. Yesterday, I ordered a repeat serum cortisol level, and came back low again at 5 although the patient has been all along on methylprednisolone and on prednisone. Hence considering his hyponatremia and hyperkalemia and hypotension, I am strongly suspicious that we may be dealing with adrenal insufficiency. Will give the patient a trial of So madelin-Cortef, 100 mg IV push, unless we can actually do a Cortrosyn stimulation test on this patient prior to Solu-Cortef given. In the meantime I will go ahead and stop his prednisone and switch him to Solu-Cortef Today Were Reviewed Continues to Have Elevated BUN of 58 Creatinine 1.85 and Continues to Have Relative Hyponatremia and Hyperkalemia Progress note dated 07/08/2023. 63-year-old male seen today in room 374. Currently, the patient is on room air. The patient was receiving hydrocortisone 100 mg every 8 hours, given to him by my partner, for a cortisol level that was only 5. The patient's also getting saline at 75 mL an hour. Patient appears to be relatively stable. Labs today i nclude a sodium 132, potassium 4.7, chlorides 101, CO2 24, BUN 56, and creatinine 1.66. Glucose is 121. Progress note dated 07/09/2023. 63-year-old male seen today in room 374. Currently, the patient is on room air, with saturations of 93%. The patient is not receiving any IV fluids. The patie nt is on hydrocortisone for suspected relative adrenal insufficiency. Currently laboratory data includes a white count 2.5, hemoglobin 7, hematocrit 21.3, and a platelet count of 39,000. Sodium 133, potassium 4.5, chlorides 102, CO2 27, BUN 56, creatinine 1.83. Computed tomography scan of the brain shows no acute intracranial process. Progress note dated 07/10/2023. 63-year-old male who was seen in room 628. The patient was seen yesterday on the third floor. The patient was admitted with a COPD exacerbation. Currently, he's on appropriate medications including Symbicort, albuterol, ipratropium bromide, and prednisone. In addition, he had a low cortisol level, and he was started on hydrocortisone IV, and, today is switched to Cortef, 20 mg in the morning, 10 mg the evening. Currently, the patient is receiving Lasix twice a day IV, as he has significant edema and anasarca. He has significant lower extremity edema. She denies any breathing issues. He was smoking up until time he came into the hospital. Current laboratory includes a white count 3.3, hemoglobin 7, hematocrit 21.2, and a platelet count of 46,000. The CBC profile is consistent with pancytopenia. Sodium 132, potassium 4.5, chlorides 101, CO2 23, BUN 63, creatinine 2.22. Progress note dated 07/11/2023. 63-year-old male seen in room 628. Currently, the patient's on room air. He's not receiving any IV fluids. Today's labs include a white count of 4.2, hemoglobin 6.8, hematocrit 20.9, and a platelet count is currently pending. Sodium 131, potassium 4.1, chlorides 100, CO2 24, BUN 65, and creatinine 2.50. Clinically, the patient is doing about the same. The patient's currently on Cortef 20 mg in the morning 10 mg in the evening for suspected adrenal insufficiency. In addition, the patient is receiving Lasix for his edema/anasarca. The COPD exacerbation standpoint, the patient is doing well. He is on albuterol, ipratropium bromide, Symbicort, and prednisone. Objective - Vital Signs Vital signs: Vital Signs Temp 97.8 F 07/11/23 08:00 Pulse 64 07/11/23 08:00 Resp 16 07/11/23 08:00 BP 93/54 07/11/23 08:00 Pulse Ox 99 07/11/23 08:00 FiO2 21 07/05/23 09:14 Intake & Output 07/10/23 07/11/23 07/11/23 18:59 06:59 18:59 Intake Total 709 Output Total 200 575 Balance 509 -575 Intake: Oral 709 Output: Urine 200 575 Other: Voiding Method Indwelling Catheter # Bowel Movements 1 - Exam No acute distress, oriented 3. The patient's currently on room air. No respiratory distress. HEENT examination is grossly unremarkable. Mucous membranes are moist. No oral lesions. Neck supple. Full range of motion. No adenopathy thyromegaly or neck vein distention. Cardiovascular examination reveals regular rhythm rate. S1-S2 normal. No S3 or S4. No discernible murmur noted. Heart rate 64 bpm. Lungs reveal mostly clear breath sounds. Minimal rhonchi. No wheezes or crackles. Room air saturation 99 %. Abdomen soft bowel sounds are heard. No masses or tenderness. Extremities are intact. No cyanosis or clubbing. The patient has significant pitting edema in the lower extremities. Skin is without rash. Multiple areas of ecchymoses. Neurologic examination is brief but nonfocal. - Labs CBC & Chem 7: 07/11/23 05:50 07/11/23 05:50 Labs: Abnormal Lab Results - Last 24 Hours (Table) 07/10/23 07/10/23 07/11/23 Range/Units 12:05 17:18 05:50 RBC 1.80 L (4.30-5.90) m/uL Hgb 6.8 L* (13.0-17.5) gm/dL Hct 20.9 L (39.0-53.0) % MCV 116.3 H (80.0-100.0) fL MCH 37.9 H (25.0-35.0) pg RDW 18.9 H (11.5-15.5) % Macrocytosis Marked A Sodium (137-145) mmol/L BUN (9-20) mg/dL Creatinine (0.66-1.25) mg/dL Glucose (74-99) mg/dL POC Glucose (mg/dL) 151 H 135 H (70-110) mg/dL Calcium (8.4-10.2) mg/dL 07/11/23 Range/Units 05:50 RBC (4.30-5.90) m/uL Hgb (13.0-17.5) gm/dL Hct (39.0-53.0) % MCV (80.0-100.0) fL MCH (25.0-35.0) pg RDW (11.5-15.5) % Macrocytosis Sodium 131 L (137-145) mmol/L BUN 65 H (9-20) mg/dL Creatinine 2.50 H (0.66-1.25) mg/dL Glucose 63 L (74-99) mg/dL POC Glucose (mg/dL) (70-110) mg/dL Calcium 7.5 L (8.4-10.2) mg/dL Assessment and Plan Assessment: Acute hypoxemic respiratory failure secondary to COPD exacerbation. Elevated troponins, currently being addressed by cardiology. Non-anion gap metabolic acidosis. Acute kidney injury. Macrocytic anemia. Pancytopenia. History of alcohol abuse. Diabetes mellitus. Subclinical hypothyroidism. Chronic and ongoing tobacco dependence. Chronic low back pain. Probable adrenal insufficiency. Plan: Plan dated 07/08/2023. The patient is receiving Solu-Cortef, 100 mg, every 8 hours. It was started by my partner. Cortisol level was low at 5. Currently, the patient's on room air. The patient is getting saline at 75 mL an hour. We will continue to follow the patient and make recommendations along the way. Labs, x-rays, medications are reviewed. Prognosis is guarded. Plan dated 07/09/2023. The patient is seen today in room 374. The patient is not receiving any supp lemental oxygen, or IV fluids. From our perspective, the patient could be considered for possible discharge. Additional recommendations and suggestions are forthcoming. Labs, x-rays, and medications are reviewed. We will continue to follow the patient should he stay in the hospital. Eventually, the hydrocortisone can be converted to Cortef, 20 mg in the morning, 10 mg in the evening Plan dated 07/10/2023. The patient is seen today in room 628. Yesterday, he was room 374. Solu-Cortef was discontinued in favor of Cortef, 10 mg in the evening, 20 mg in the morning. In addition, the patient's receiving Lasix for his diffuse edema and anasarca. The patient does have pancytopenia, which is being addressed, by hematology. Currently, he's on DuoNeb nebs, Symbicort, and oral prednisone 40 mg a day. Additional recommendations and suggestions are forthcoming. He's on room air. No IV fluids. Current respiratory status is stable. We will continue to follow make recommendations along the way. Prognosis is guarded. Plan dated 07/11/2023. The patient is seen today with 628. He's on room air. No IV fluids. From the pulmonary standpoint, the patient is stable, and could be considered for possible discharge. The patient's hemoglobin today was low, and he may receive a unit of PRBCs. We'll leave that up to the primary service. Labs, x-rays, medications are reviewed. From the pulmonary standpoint, the patient's on DuoNeb nebs, Symbicort, and prednisone. We will continue to follow make recommendations along the way. Prognosis is guarded. Time with Patient: Less than 30
[2023-07-11] MEDS: SYMBICORT 160-4.5 MCG INHALER INHALATION SCH ×2 (09:07→21:26)
[2023-07-11] MEDS: IPRATROPIUM-ALBUTEROL 3 ML NEB INHALATION SCH ×3 (09:09→21:30)
[2023-07-11] MEDS: MIDODRINE 5 MG TAB PO SCH ×3 (09:30→16:16)
[2023-07-11] MEDS: CHOLECALCIFEROL 25 MCG (1000 IU) TABLET PO SCH (09:31)
[2023-07-11] MEDS: FOLIC ACID 1 MG TAB PO SCH (09:31)
[2023-07-11] MEDS: HYDROCORTISONE 20 MG TAB PO SCH (09:31)
[2023-07-11] MEDS: THIAMINE 100 MG TAB PO SCH (09:31)
[2023-07-11] MEDS: FAMOTIDINE 20 MG TAB PO SCH (09:32)
[2023-07-11] MEDS: METOPROLOL TARTRATE 12.5 MG TAB PO SCH ×2 (09:32→19:45)
[2023-07-11] MEDS: LIDOCAINE 5% PATCH TOPICAL SCH (09:32)
[2023-07-11] MEDS: HYDROcodone/APAP 7.5-325MG 1 EACH TAB PO PRN ×3 (09:40→20:48)
--- NOTE | 2023-07-11 10:53 | XR ---
EXAMINATION TYPE: XR Hip Complete RT DATE OF EXAM: 07/11/2023 10:45 AM CLINICAL INDICATION:Male, 63 years old with history of recent fall with cont'd pain; [facility] COMPARISON: 07/04/2023 TECHNIQUE: XR Hip Complete RT; hip was examined in the frontal and lateral projections and a AP pelvi s. FINDINGS: No evidence for acute process, joint dislocation or significant soft tissue swelling. Osteo phyte formation of the superior acetabulum of the hip. This course of the arterial vasculature. IMPRESSION: 1. No evidence for acute process. If there Remains concern for fracture consider CT imaging of the pe lvis. 2. Mild hip osteoarthrosis.
[2023-07-11 12:20] LABS: Glucose,Whole Blood 58 mg/dL (70-110)
[2023-07-11 12:38] LABS: Glucose,Whole Blood 63 mg/dL (70-110)
--- NOTE | 2023-07-11 12:38 | P.PN ---
Subjective Patient is seen in follow-up for acute kidney injury. Renal function worse from diuresis. On IV Lasix. Nonoliguric. Scheduled to receive a unit of blood today. No active bleeding. Oral intake better. Has Charles catheter for urinary retention. Vital signs are stable. General: No acute distress. HEENT: Head exam is unremarkable. LUNGS: No audible rhonchi or wheezes. HEART: Rate and Rhythm are regular. ABDOMEN: Nontender. EXTREMITITES: 2+ edema. Objective - Vital Signs Vital signs: Vital Signs Temp 97.6 F 07/11/23 12:29 Pulse 71 07/11/23 12:29 Resp 16 07/11/23 12:29 BP 100/64 07/11/23 12:29 Pulse Ox 99 07/11/23 08:00 FiO2 21 07/05/23 09:14 Intake & Output 07/10/23 07/11/23 07/11/23 18:59 06:59 18:59 Intake Total 709 0 Output Total 200 575 Balance 509 -575 0 Intake: Oral 709 Blood Product 0 Rc As-1 Unit 0 [id number] Output: Urine 200 575 Other: Voiding Method Indwelling Catheter Indwelling Catheter # Bowel Movements 1 - Labs CBC & Chem 7: 07/11/23 05:50 07/11/23 05:50 Labs: Abnormal Lab Results - Last 24 Hours (Table) 07/10/23 07/11/23 07/11/23 Range/Units 17:18 05:50 05:50 RBC 1.80 L (4.30-5.90) m/uL Hgb 6.8 L* (13.0-17.5) gm/dL Hct 20.9 L (39.0-53.0) % MCV 116.3 H (80.0-100.0) fL MCH 37.9 H (25.0-35.0) pg RDW 18.9 H (11.5-15.5) % Plt Count 50 L (150-450) k/uL Lymphocytes # 0.6 L (1.0-4.8) k/uL Macrocytosis Marked A Sodium 131 L (137-145) mmol/L BUN 65 H (9-20) mg/dL Creatinine 2.50 H (0.66-1.25) mg/dL Glucose 63 L (74-99) mg/dL POC Glucose (mg/dL) 135 H (70-110) mg/dL Calcium 7.5 L (8.4-10.2) mg/dL Crossmatch 07/11/23 07/11/23 Range/Units 09:06 12:17 RBC (4.30-5.90) m/uL Hgb (13.0-17.5) gm/dL Hct (39.0-53.0) % MCV (80.0-100.0) fL MCH (25.0-35.0) pg RDW (11.5-15.5) % Plt Count (150-450) k/uL Lymphocytes # (1.0-4.8) k/uL Macrocytosis Sodium (137-145) mmol/L BUN (9-20) mg/dL Creatinine (0.66-1.25) mg/dL Glucose (74-99) mg/dL POC Glucose (mg/dL) 58 L (70-110) mg/dL Calcium (8.4-10.2) mg/dL Crossmatch See Detail Assessment and Plan Plan: Assessment: 1. Acute kidney injury secondary to ATN secondary to hypotension, anemia. Likely underlying component of hepatorenal syndrome. No proteinuria on UA. Creatinine 2.5 today. Creatinine 0.7 dated February 06, 2023. 2. Volume overload. 3. Moderate mitral regurgitation. 4. Hypotension. Cortisol level on the lower side. On hydrocortisone. Consider endocrinology evaluation outpatient for workup for adrenal insufficiency. 5. Hypervolemic hyponatremia. 6. Pancytopenia being followed by hematology. Iron replete. 7. Hyperkalemia secondary to acute kidney injury and acidosis. Questionable adrenal insufficiency. Improved. 8. Urinary retention. Has Charles catheter. 9. Liver cirrhosis. 10. Acute blood loss anemia scheduled to receive a unit of blood today. Plan: Change IV push Lasix to Lasix drip at 10 mL an hour. Avoid nephrotoxins. Continue to monitor renal function and urine output. Low-salt diet and 1500 mL fluid restriction. Maintain midodrine. IV DDAVP 1 dose today. Abdominal ultrasound pending. May need paracentesis. 25 g of albumin will be given pre-and post-paracentesis.
--- NOTE | 2023-07-11 12:42 | US ---
EXAMINATION TYPE: US abdomen limited DATE OF EXAM: 07/11/2023 COMPARISON: CT 07/09/2023 CLINICAL INDICATION: Male, 63 years old with history of ascites; Ascites check per Berta, [employer]. Fluid seen in RLQ, LUQ, LLQ. Limited, patient could not turn fully onto his back. Patient was leaning toward his left side. IMPRESSION: Small amount of ascites
[2023-07-11 13:07] LABS: Glucose,Whole Blood 95 mg/dL (70-110)
[2023-07-11] MEDS: FUROSEMIDE 10 MG/ML 4 ML VIAL IV SCH (13:52)
[2023-07-11] MEDS ORDERED: DESMOPRESSIN ACETATE 26 MCG in SODIUM CHLORIDE 0.9% 50 ML IVPB ONE (14:00)
[2023-07-11 16:12] LABS: Glucose,Whole Blood 88 mg/dL (70-110)
[2023-07-11] MEDS: FUROSEMIDE 100 MG in SODIUM CHLORIDE 0.9% 90 ML IV SCH (16:12)
[2023-07-11 20:01] LABS: Glucose,Whole Blood 64 mg/dL (70-110)
[2023-07-11 20:20] LABS: Glucose,Whole Blood 72 mg/dL (70-110)
[2023-07-11] MEDS: HYDROCORTISONE 10 MG TAB PO SCH (20:48)
[2023-07-11 21:14] LABS: Appearance,Urine Clear (Clear); Bacteria,Urine Occasional /hpf; Bilirubin,Urine Negative (Negative); Blood,Urine Moderate (Negative); Color,Urine Colorless; Glucose,Urine (UA) Negative (Negative); Hyaline Casts,Urine 42 /lpf (0-2); Ketones,Urine Negative (Negative); Leukocyte Esterase,Urine Trace (Negative); Mucus,Urine Rare /hpf; Nitrite,Urine Negative (Negative); Protein,Urine Negative (Negative); RBC,Urine 12 /hpf (0-5); Specific Gravity,Urine 1.007 (1.001-1.035); Squamous Epithelial Cell,Urine <1 /hpf (0-4); Urobilinogen,Urine <2.0 mg/dL (<2.0); WBC,Urine 4 /hpf (0-5)
--- NOTE | 2023-07-11 22:39 | P.PN ---
Subjective Progress Note Date: 07/11/23 This is a 67 year old male who is admitted for acute COPD exacerbation, NSTEMI. Patient also has evidence of compression fracture and has TLSO brace. Patient continues with significant weakness. Noted to have increased lower extremity edema and was started on IV lasix Q12. PT/OT will be ordered. Patient continues to feel short of breath mostly with exertion. He is also being treated for a suspected adrenal insufficiency and remains on IV solucortef 100 mg Q8h. 07/09/2023 Patient is evaluated today sitting up at the edge of the bed. Continues on IV lasix, lower extremity edema has improved some would recommend to christa wrap the legs or use compression stockings and pt to elevate when sitting. No shortness of breath and remains on room air. Patient did have a fall overnight states he did not hit head but it was unwitnessed did have a drop in hemoglobin. Brain CT will be ordered to rule out bleed. Sodium 133 today, creatinine up to 1.83. 07/10/2023 Patient is evaluated today sitting up in the chair. He was moved to the medical surgical unit from stepdown yesterday. He continues on IV Lasix 40 mg every 12 hours. Nephrology is following closely. His creatinine today is up to 2.22. Additionally his hemoglobin is again 7.0.1 Unit of packed red blood cells has been ordered. Patient is also on midodrine 10 mg 3 times a day. Blood pressure is marginal with a low of 78/54 this AM. Amlodipine and lisinopril are being held. 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 There is partial opacification of the bilateral mastoid air cells correlate for mastoiditis. There is moderate right maxillary sinus disease. He reports his headache has improved. He denies any prior history of stroke. Continues to report significant pain in the right hip. Patient remains an abnormal cosyntropin 0.5 every 8 hours and lidocaine patches also added. Orthopedics recommended conservative management for the muscular skeletal pain. 07/11/2023 Patient is evaluated today resting in bed. He continues to report significant pain to the right hip will re xray and need to discuss with orthopedics. May need CT scan. Patient continues with significant bilateral lower extremity edema and continues on IV lasix Q12, nephrology recommending lasix gtt. Patients hemoglobin 6.8 today and will receive 1 unit of blood. He is having some abdominal pain however when asked he points to his right groin having some deferred pain there. He has no obvious bruising over the right hip or in the right groin. Sodium is 131. Creatinine worsening at 2.50. Review of Systems Constitutional: Reports fatigue, denied any fever. Cardio vascular: denied any chest pain, palpitations Gastrointestinal: denied any nausea, vomiting, diarrhea Pulmonary: Denied any shortness of breath cough Neurologic denied any new focal deficits Reports weakness. All inpatient medications were reviewed and appropriate changes in these medications as dictated in the interval history and assessment and plan. PHYSICAL EXAMINATION: GENERAL: The patient is alert and oriented x3, not in any acute distress. Well developed, well nourished. Pale. Fatigued. HEENT: Pupils are round and equally reacting to light. EOMI. No scleral icterus. No conjunctival pallor. Normocephalic, atraumatic. No pharyngeal erythema. No thyromegaly. CARDIOVASCULAR: S1 and S2 present. No murmurs, rubs, or gallops. PULMONARY: Chest is clear to auscultation, no wheezing or crackles. ABDOMEN: Soft, nontender, nondistended, normoactive bowel sounds. No palpable organomegaly. MUSCULOSKELETAL: No joint swelling or deformity. EXTREMITIES: No cyanosis, clubbing, 2+ lower extremity edema NEUROLOGICAL: Significant generalized weakness. SKIN: No rashes. Assessment -Status post fall with compression fracture of L3 spine has LSO brace at home does not like wearing. -Elevated troponin type II PR -COPD exacerbation with acute hypoxic respiratory failure currently weaned to room air -Acute hyponatremia -Ascites and concern of liver cirrhosis on abdominal pelvis CT. -Suspected adrenal insufficiency maintained on IV solucortef -Hyperkalemia improved -Acute kidney injury secondary to ATN improved with LR and then worsened -Metabolic acidosis improved -Transient hypotension -Bicytopenia macrocytic hemoglobin 6.8 patient to receive 1 unit of PRBC today. GI prophylaxis DVT prophylaxis deferred Full Code Plan -Physical therapy has been consulted for evaluation -Heparin was discontinued secondary to anemia, OK for DVT prophylaxis per hematology if platelet count above 50,000. Today was 50,000. Patient got a unit of PRBCs. -Needs GI follow up outpatient for the liver cirrhosis, abdominal ultrasound showing small ascites. -Transitioned to oral hydrocortisone and will need to f/u with endocrinology outpatient. -Patient will be started on lasix gtt -Recommend to upgrade to 3 [facility]. -Follow up labs in AM The impression and plan of care has been dictated by Rebekah Augustin, Nurse Practitioner as directed. Dr. Willard MD I have performed a history and physical examination and medical decision making of this patient, discussed the same with the dictator, and agree with the dictators assessment and plan as written, documented as a scribe. Based on total visit time, I have performed more than 50% of this visit. Objective - Vital Signs Vital signs: Vital Signs Temp 97.3 F L 07/11/23 13:48 Pulse 77 07/11/23 13:48 Resp 16 07/11/23 13:48 BP 100/62 07/11/23 13:48 Pulse Ox 97 07/11/23 13:48 FiO2 21 07/05/23 09:14 Intake & Output 07/10/23 07/11/23 07/11/23 18:59 06:59 18:59 Intake Total 709 850 Output Total 200 575 Balance 509 -575 850 Intake: Oral 709 540 Blood Product 310 Rc As-1 Unit 310 [id number] Output: Urine 200 575 Other: Voiding Method Indwelling Catheter Indwelling Catheter # Bowel Movements 1 - Labs CBC & Chem 7: 07/11/23 05:50 07/11/23 05:50 Labs: Abnormal Lab Results - Last 24 Hours (Table) 07/10/23 07/11/23 07/11/23 Range/Units 17:18 05:50 05:50 RBC 1.80 L (4.30-5.90) m/uL Hgb 6.8 L* (13.0-17.5) gm/dL Hct 20.9 L (39.0-53.0) % MCV 116.3 H (80.0-100.0) fL MCH 37.9 H (25.0-35.0) pg RDW 18.9 H (11.5-15.5) % Plt Count 50 L (150-450) k/uL Lymphocytes # 0.6 L (1.0-4.8) k/uL Macrocytosis Marked A Sodium 131 L (137-145) mmol/L BUN 65 H (9-20) mg/dL Creatinine 2.50 H (0.66-1.25) mg/dL Glucose 63 L (74-99) mg/dL POC Glucose (mg/dL) 135 H (70-110) mg/dL Calcium 7.5 L (8.4-10.2) mg/dL Crossmatch 07/11/23 07/11/23 07/11/23 Range/Units 09:06 12:17 12:37 RBC (4.30-5.90) m/uL Hgb (13.0-17.5) gm/dL Hct (39.0-53.0) % MCV (80.0-100.0) fL MCH (25.0-35.0) pg RDW (11.5-15.5) % Plt Count (150-450) k/uL Lymphocytes # (1.0-4.8) k/uL Macrocytosis Sodium (137-145) mmol/L BUN (9-20) mg/dL Creatinine (0.66-1.25) mg/dL Glucose (74-99) mg/dL POC Glucose (mg/dL) 58 L 63 L (70-110) mg/dL Calcium (8.4-10.2) mg/dL Crossmatch See Detail Assessment and Plan Time with Patient: Less than 30
[2023-07-11] MEDS ORDERED: HYDROmorphone 0.5 MG/0.5 ML SYRINGE IVP STA (23:03)
[2023-07-11] MEDS ORDERED: PHENAZOPYRIDINE 100 MG TAB PO STA (23:03)
[2023-07-12] MEDS: FUROSEMIDE 100 MG in SODIUM CHLORIDE 0.9% 90 ML IV SCH ×2 (00:01→08:18)
[2023-07-12] MEDS: HYDROcodone/APAP 7.5-325MG 1 EACH TAB PO PRN ×4 (03:48→22:36)
[2023-07-12 06:07] LABS: Glucose,Whole Blood 67 mg/dL (70-110)
[2023-07-12] MEDS: MIDODRINE 5 MG TAB PO SCH ×3 (06:08→16:54)
[2023-07-12] MEDS: INSULIN ASPART (NovoLOG) 100 UNIT/ML VIAL SQ SCH ×4 (06:09→21:00)
[2023-07-12 06:23] LABS: Glucose,Whole Blood 66 mg/dL (70-110)
[2023-07-12 06:45] LABS: Glucose,Whole Blood 82 mg/dL (70-110)
[2023-07-12 07:54] LABS: Anisocytosis Moderate; Basophils % (A) 0 %; Eosinophils % (A) 0 %; HCT 25.1 % (39.0-53.0); Lymphocytes # (A) 0.9 k/uL (1.0-4.8); Lymphocytes % (A) 14 %; MCH 36.3 pg (25.0-35.0); MCHC 33.3 g/dL (31.0-37.0); Macrocytosis Marked; Mean Platelet Volume 9.9; Monocytes # (A) 0.4 k/uL (0-1.0); Monocytes % (A) 7 %; Neutrophils % (A) 78 %; Platelet Count 57 k/uL (150-450); RDW 21.2 % (11.5-15.5); WBC 6.5 k/uL (3.8-10.6)
[2023-07-12 07:59] LABS: HGB 8.3 gm/dL (13.0-17.5)
[2023-07-12 08:02] LABS: African American GFR (CKD) 31 (>60 ml/min/1.73 sqM); Anion Gap 9 mmol/L; Blood Urea Nitrogen 67 mg/dL (9-20); Calcium 7.5 mg/dL (8.4-10.2); Carbon Dioxide 23 mmol/L (22-30); Chloride 97 mmol/L (98-107); Glucose 132 mg/dL (74-99); Magnesium 1.8 mg/dL (1.6-2.3); Non-African American GFR(CKD) 27 (>60 ml/min/1.73 sqM); Potassium 4.5 mmol/L (3.5-5.1); Sodium 129 mmol/L (137-145)
[2023-07-12] MEDS: LIDOCAINE 5% PATCH TOPICAL SCH (08:13)
[2023-07-12] MEDS: METOPROLOL TARTRATE 12.5 MG TAB PO SCH ×2 (08:14→22:35)
[2023-07-12] MEDS: CHOLECALCIFEROL 25 MCG (1000 IU) TABLET PO SCH (08:14)
[2023-07-12] MEDS: FOLIC ACID 1 MG TAB PO SCH (08:14)
[2023-07-12] MEDS: HYDROCORTISONE 20 MG TAB PO SCH (08:14)
[2023-07-12] MEDS: THIAMINE 100 MG TAB PO SCH (08:14)
[2023-07-12] MEDS: FAMOTIDINE 20 MG TAB PO SCH (08:14)
[2023-07-12] MEDS: IPRATROPIUM-ALBUTEROL 3 ML NEB INHALATION SCH ×4 (09:25→20:23)
[2023-07-12] MEDS: SYMBICORT 160-4.5 MCG INHALER INHALATION SCH ×2 (09:25→20:23)
[2023-07-12] MEDS: HEPARIN SODIUM,PORCINE 5,000 UNIT/ML 1 ML VIAL SQ SCH ×2 (09:45→22:34)
--- NOTE | 2023-07-12 10:37 | P.PN ---
Subjective Patient is seen for follow-up for acute kidney injury. Currently maintained on Lasix drip. Patient has indwelling Charles catheter. 24 hour urine documented at 750 ML. Complaining of pain in the right thigh area. Serum creatinine staying at about 2.4-2.5 mg/dL. Objective - Vital Signs Vital signs: Vital Signs Temp 98 F 07/12/23 08:00 Pulse 97 07/12/23 08:00 Resp 19 07/12/23 08:00 BP 134/77 07/12/23 04:00 Pulse Ox 93 L 07/12/23 08:00 FiO2 21 07/05/23 09:14 Intake & Output 07/11/23 07/12/23 07/12/23 18:59 06:59 18:59 Intake Total 1440 314.167 82.833 Output Total 450 300 Balance 990 14.167 82.833 Intake: Intake, IV Titration 78.167 82.833 Amount Furosemide 100 mg In 78.167 82.833 Sodium Chloride 0.9% 90 ml @ 10 MG/HR 10 mls/hr IV .Q10H [facility] Rx#: [id number] Oral 1130 236 0 Blood Product 310 Rc As-1 Unit 310 [id number] Output: Urine 450 300 Other: Voiding Method Indwelling Catheter Indwelling Catheter Indwelling Catheter - Exam Patient is awake comfortable not in any acute distress Alert oriented 3 Examination of the heart S1 and S2 Examination of the lungs bilateral breath sounds are heard no crackles or wheezing is heard Abdomen is soft distended nontender Examination of lower extremities shows 2+ edema bilaterally mostly chronic [employer] exam grossly intact - Labs CBC & Chem 7: 07/12/23 07:28 07/12/23 07:28 Labs: Abnormal Lab Results - Last 24 Hours (Table) 07/11/23 07/11/23 07/11/23 Range/Units 05:50 09:06 12:17 RBC (4.30-5.90) m/uL Hgb (13.0-17.5) gm/dL Hct (39.0-53.0) % MCV (80.0-100.0) fL MCH (25.0-35.0) pg RDW (11.5-15.5) % Plt Count (150-450) k/uL Lymphocytes # (1.0-4.8) k/uL Macrocytosis Sodium (137-145) mmol/L Chloride (98-107) mmol/L BUN (9-20) mg/dL Creatinine (0.66-1.25) mg/dL Glucose (74-99) mg/dL POC Glucose (mg/dL) 58 L (70-110) mg/dL Calcium (8.4-10.2) mg/dL Ceruloplasmin 10.0 L (20.0-60.0) mg/dL Urine Blood (Negative) Ur Leukocyte Esterase (Negative) Urine RBC (0-5) /hpf Urine Bacteria (None) /hpf Hyaline Casts (0-2) /lpf Urine Mucus (None) /hpf Crossmatch See Detail 07/11/23 07/11/23 07/11/23 Range/Units 12:37 20:00 20:48 RBC (4.30-5.90) m/uL Hgb (13.0-17.5) gm/dL Hct (39.0-53.0) % MCV (80.0-100.0) fL MCH (25.0-35.0) pg RDW (11.5-15.5) % Plt Count (150-450) k/uL Lymphocytes # (1.0-4.8) k/uL Macrocytosis Sodium (137-145) mmol/L Chloride (98-107) mmol/L BUN (9-20) mg/dL Creatinine (0.66-1.25) mg/dL Glucose (74-99) mg/dL POC Glucose (mg/dL) 63 L 64 L (70-110) mg/dL Calcium (8.4-10.2) mg/dL Ceruloplasmin (20.0-60.0) mg/dL Urine Blood Moderate H (Negative) Ur Leukocyte Esterase Trace H (Negative) Urine RBC 12 H (0-5) /hpf Urine Bacteria Occasional H (None) /hpf Hyaline Casts 42 H (0-2) /lpf Urine Mucus Rare H (None) /hpf Crossmatch 07/12/23 07/12/23 07/12/23 Range/Units 06:05 06:21 07:28 RBC (4.30-5.90) m/uL Hgb (13.0-17.5) gm/dL Hct (39.0-53.0) % MCV (80.0-100.0) fL MCH (25.0-35.0) pg RDW (11.5-15.5) % Plt Count (150-450) k/uL Lymphocytes # (1.0-4.8) k/uL Macrocytosis Sodium 129 L (137-145) mmol/L Chloride 97 L (98-107) mmol/L BUN 67 H (9-20) mg/dL Creatinine 2.49 H (0.66-1.25) mg/dL Glucose 132 H (74-99) mg/dL POC Glucose (mg/dL) 67 L 66 L (70-110) mg/dL Calcium 7.5 L (8.4-10.2) mg/dL Ceruloplasmin (20.0-60.0) mg/dL Urine Blood (Negative) Ur Leukocyte Esterase (Negative) Urine RBC (0-5) /hpf Urine Bacteria (None) /hpf Hyaline Casts (0-2) /lpf Urine Mucus (None) /hpf Crossmatch 07/12/23 Range/Units 07:28 RBC 2.30 L (4.30-5.90) m/uL Hgb 8.3 L D (13.0-17.5) gm/dL Hct 25.1 L (39.0-53.0) % MCV 109.0 H D (80.0-100.0) fL MCH 36.3 H (25.0-35.0) pg RDW 21.2 H (11.5-15.5) % Plt Count 57 L (150-450) k/uL Lymphocytes # 0.9 L (1.0-4.8) k/uL Macrocytosis Marked A Sodium (137-145) mmol/L Chloride (98-107) mmol/L BUN (9-20) mg/dL Creatinine (0.66-1.25) mg/dL Glucose (74-99) mg/dL POC Glucose (mg/dL) (70-110) mg/dL Calcium (8.4-10.2) mg/dL Ceruloplasmin (20.0-60.0) mg/dL Urine Blood (Negative) Ur Leukocyte Esterase (Negative) Urine RBC (0-5) /hpf Urine Bacteria (None) /hpf Hyaline Casts (0-2) /lpf Urine Mucus (None) /hpf Crossmatch Assessment and Plan Assessment: 1. Acute kidney injury secondary to ATN secondary to hypotension, anemia. Likely underlying component of hepatorenal syndrome. No proteinuria on UA. Creatinine 2.5 today. Creatinine 0.7 dated February 06, 2023. 2. Volume overload. 3. Moderate mitral regurgitation. 4. Hypotension. Cortisol level on the lower side. On hydrocortisone. Consider endocrinology evaluation outpatient for workup for adrenal insufficiency. 5. Hypervolemic hyponatremia. 6. Pancytopenia being followed by hematology. Iron replete. 7. Hyperkalemia secondary to acute kidney injury and acidosis. Questionable adrenal insufficiency. Improved. 8. Urinary retention. Has Charles catheter. 9. Liver cirrhosis. 10. Acute blood loss anemia status post packed RBCs yesterday Plan: Continue with Lasix drip Patient may need hemodialysis if urine output remains low with severe volume overload.
[2023-07-12 11:26] LABS: Glucose,Whole Blood 116 mg/dL (70-110)
--- NOTE | 2023-07-12 13:13 | P.PN ---
Subjective Progress Note Date: 07/12/23 Principal diagnosis: COPD, shortness of breath, non-ST segment elevation myocardial infarction. Patient was reevaluated today on 07/05/2023,, patient is feeling better, he seems to be quite comfortable, he is actually on room air. His WBC count is 4.4 hemoglobin 7.9 electrolytes are normal except for sodium of 129 a uterine is 50 creatinine 1.52, steadily improving compared to a creatinine of 1.852 days ago. Serum cortisol was 8, hip x-rays showed mild right hip osteoarthritis otherwise no significant findings chest x-ray on admission showed chronic changes and no acute pulmonary process. Apparently someone ordered a VQ scan which showed no evidence of pulmonary embolism Patient was reevaluated today on 07/06/2023, pulmonary-nicole the patient is doing great, he is asymptomatic no cough no wheezing no shortness of breath, and the patient remains on room air. Patient is maintained on bicarb drip for his metabolic acidosis and this is being addressed by nephrology on the case. CT of the abdomen showed no obstruction and no hydronephrosis. Patient has been stea dily improving. His cortisol level was 8, however the patient was on methylprednisolone at 60 mg IV push every 6 hours, this is considered relatively extremely low cortisol, and the patient may have adrenal insufficiency. May have to seriously consider Cortrosyn stimulation test on this patient for 3 with Solu-Cortef, for presumptive adrenal insufficiency considering the cortisol level is that low in spite of being on methylprednisolone. Especially with the blood pressure being soft and seems to be on the low side today's labs continued to show hyponatremia and hyperkalemia with BUN of 57 creatinine 1.79 with WC out of 2.9 hemoglobin of 8 Patient was reevaluated today on 07/07/2023, patient seems to be doing well today, feeling much better, breathing a lot easier, he has hardly any pulmonary symptoms. And the patient remains on room air. Yesterday, I ordered a repeat serum cortisol level, and came back low again at 5 although the patient has been all along on methylprednisolone and on prednisone. Hence considering his hyponatremia and hyperkalemia and hypotension, I am strongly suspicious that we may be dealing with adrenal insufficiency. Will give the patient a trial of So madelin-Cortef, 100 mg IV push, unless we can actually do a Cortrosyn stimulation test on this patient prior to Solu-Cortef given. In the meantime I will go ahead and stop his prednisone and switch him to Solu-Cortef Today Were Reviewed Continues to Have Elevated BUN of 58 Creatinine 1.85 and Continues to Have Relative Hyponatremia and Hyperkalemia Progress note dated 07/08/2023. 63-year-old male seen today in room 374. Currently, the patient is on room air. The patient was receiving hydrocortisone 100 mg every 8 hours, given to him by my partner, for a cortisol level that was only 5. The patient's also getting saline at 75 mL an hour. Patient appears to be relatively stable. Labs today i nclude a sodium 132, potassium 4.7, chlorides 101, CO2 24, BUN 56, and creatinine 1.66. Glucose is 121. Progress note dated 07/09/2023. 63-year-old male seen today in room 374. Currently, the patient is on room air, with saturations of 93%. The patient is not receiving any IV fluids. The patie nt is on hydrocortisone for suspected relative adrenal insufficiency. Currently laboratory data includes a white count 2.5, hemoglobin 7, hematocrit 21.3, and a platelet count of 39,000. Sodium 133, potassium 4.5, chlorides 102, CO2 27, BUN 56, creatinine 1.83. Computed tomography scan of the brain shows no acute intracranial process. Progress note dated 07/10/2023. 63-year-old male who was seen in room 628. The patient was seen yesterday on the third floor. The patient was admitted with a COPD exacerbation. Currently, he's on appropriate medications including Symbicort, albuterol, ipratropium bromide, and prednisone. In addition, he had a low cortisol level, and he was started on hydrocortisone IV, and, today is switched to Cortef, 20 mg in the morning, 10 mg the evening. Currently, the patient is receiving Lasix twice a day IV, as he has significant edema and anasarca. He has significant lower extremity edema. She denies any breathing issues. He was smoking up until time he came into the hospital. Current laboratory includes a white count 3.3, hemoglobin 7, hematocrit 21.2, and a platelet count of 46,000. The CBC profile is consistent with pancytopenia. Sodium 132, potassium 4.5, chlorides 101, CO2 23, BUN 63, creatinine 2.22. Progress note dated 07/11/2023. 63-year-old male seen in room 628. Currently, the patient's on room air. He's not receiving any IV fluids. Today's labs include a white count of 4.2, hemoglobin 6.8, hematocrit 20.9, and a platelet count is currently pending. Sodium 131, potassium 4.1, chlorides 100, CO2 24, BUN 65, and creatinine 2.50. Clinically, the patient is doing about the same. The patient's currently on Cortef 20 mg in the morning 10 mg in the evening for suspected adrenal insufficiency. In addition, the patient is receiving Lasix for his edema/anasarca. The COPD exacerbation standpoint, the patient is doing well. He is on albuterol, ipratropium bromide, Symbicort, and prednisone. Progress note dated 07/12/2023. 63-year-old male seen today in room 350. The patient's currently on room air. The patient is on a Lasix drip at 10 mg an hour. He has received a total of 2 units of packed red blood cells, clinically, although looking pale, he seems to be doing relatively well. He denies any worsening shortness of breath. He does have COPD. White count of 6.5, hemoglobin 8.3, hematocrit 25.1, and platelet count 57,000. Sodium 129, potassium 4.5, chlorides 97, CO2 23, BUN 67, creatinine 2.49. Objective - Vital Signs Vital signs: Vital Signs Temp 98 F 07/12/23 08:00 Pulse 89 07/12/23 12:32 Resp 19 07/12/23 08:00 BP 107/55 07/12/23 12:32 Pulse Ox 96 07/12/23 12:32 FiO2 21 07/05/23 09:14 Intake & Output 07/11/23 07/12/23 07/12/23 18:59 06:59 18:59 Intake Total 1440 314.167 82.833 Output Total 450 300 Balance 990 14.167 82.833 Weight 85.729 kg Intake: Intake, IV Titration 78.167 82.833 Amount Furosemide 100 mg In 78.167 82.833 Sodium Chloride 0.9% 90 ml @ 10 MG/HR 10 mls/hr IV .Q10H [facility] Rx#: [id number] Oral 1130 236 0 Blood Product 310 Rc As-1 Unit 310 [id number] Output: Urine 450 300 Other: Voiding Method Indwelling Catheter Indwelling Catheter Indwelling Catheter - Exam No acute distress, oriented 3. The patient's currently on room air. No respiratory distress. HEENT examination is grossly unremarkable. Mucous membranes are moist. No oral lesions. Neck supple. Full range of motion. No adenopathy thyromegaly or neck vein distention. Cardiovascular examination reveals regular rhythm rate. S1-S2 normal. No S3 or S4. No discernible murmur noted. Heart rate 89 bpm. Lungs reveal mostly clear breath sounds. Scattered rhonchi. No wheezes or crackles. Room air saturation 96 %. Abdomen soft bowel sounds are heard. No masses or tenderness. Extremities are intact. No cyanosis or clubbing. The patient has significant pitting edema in the lower extremities. Skin is without rash. Multiple areas of ecchymoses. Neurologic examination is brief but nonfocal. - Labs CBC & Chem 7: 07/12/23 07:28 07/12/23 07:28 Labs: Abnormal Lab Results - Last 24 Hours (Table) 07/11/23 07/11/23 07/11/23 Range/Units 05:50 09:06 20:00 RBC (4.30-5.90) m/uL Hgb (13.0-17.5) gm/dL Hct (39.0-53.0) % MCV (80.0-100.0) fL MCH (25.0-35.0) pg RDW (11.5-15.5) % Plt Count (150-450) k/uL Lymphocytes # (1.0-4.8) k/uL Macrocytosis Sodium (137-145) mmol/L Chloride (98-107) mmol/L BUN (9-20) mg/dL Creatinine (0.66-1.25) mg/dL Glucose (74-99) mg/dL POC Glucose (mg/dL) 64 L (70-110) mg/dL Calcium (8.4-10.2) mg/dL Ceruloplasmin 10.0 L (20.0-60.0) mg/dL Urine Blood (Negative) Ur Leukocyte Esterase (Negative) Urine RBC (0-5) /hpf Urine Bacteria (None) /hpf Hyaline Casts (0-2) /lpf Urine Mucus (None) /hpf Crossmatch See Detail 07/11/23 07/12/23 07/12/23 Range/Units 20:48 06:05 06:21 RBC (4.30-5.90) m/uL Hgb (13.0-17.5) gm/dL Hct (39.0-53.0) % MCV (80.0-100.0) fL MCH (25.0-35.0) pg RDW (11.5-15.5) % Plt Count (150-450) k/uL Lymphocytes # (1.0-4.8) k/uL Macrocytosis Sodium (137-145) mmol/L Chloride (98-107) mmol/L BUN (9-20) mg/dL Creatinine (0.66-1.25) mg/dL Glucose (74-99) mg/dL POC Glucose (mg/dL) 67 L 66 L (70-110) mg/dL Calcium (8.4-10.2) mg/dL Ceruloplasmin (20.0-60.0) mg/dL Urine Blood Moderate H (Negative) Ur Leukocyte Esterase Trace H (Negative) Urine RBC 12 H (0-5) /hpf Urine Bacteria Occasional H (None) /hpf Hyaline Casts 42 H (0-2) /lpf Urine Mucus Rare H (None) /hpf Crossmatch 07/12/23 07/12/23 07/12/23 Range/Units 07:28 07:28 11:24 RBC 2.30 L (4.30-5.90) m/uL Hgb 8.3 L D (13.0-17.5) gm/dL Hct 25.1 L (39.0-53.0) % MCV 109.0 H D (80.0-100.0) fL MCH 36.3 H (25.0-35.0) pg RDW 21.2 H (11.5-15.5) % Plt Count 57 L (150-450) k/uL Lymphocytes # 0.9 L (1.0-4.8) k/uL Macrocytosis Marked A Sodium 129 L (137-145) mmol/L Chloride 97 L (98-107) mmol/L BUN 67 H (9-20) mg/dL Creatinine 2.49 H (0.66-1.25) mg/dL Glucose 132 H (74-99) mg/dL POC Glucose (mg/dL) 116 H (70-110) mg/dL Calcium 7.5 L (8.4-10.2) mg/dL Ceruloplasmin (20.0-60.0) mg/dL Urine Blood (Negative) Ur Leukocyte Esterase (Negative) Urine RBC (0-5) /hpf Urine Bacteria (None) /hpf Hyaline Casts (0-2) /lpf Urine Mucus (None) /hpf Crossmatch Assessment and Plan Assessment: Acute hypoxemic respiratory failure secondary to COPD exacerbation. Elevated troponins, currently being addressed by cardiology. Non-anion gap metabolic acidosis. Acute kidney injury. Macrocytic anemia. Pancytopenia. History of alcohol abuse. Diabetes mellitus. Subclinical hypothyroidism. Chronic and ongoing tobacco dependence. Chronic low back pain. Probable adrenal insufficiency. Plan: Plan dated 07/08/2023. The patient is receiving Solu-Cortef, 100 mg, every 8 hours. It was started by my partner. Cortisol level was low at 5. Currently, the patient's on room air. The patient is getting saline at 75 mL an hour. We will continue to follow the patient and make recommendations along the way. Labs, x-rays, medications are reviewed. Prognosis is guarded. Plan dated 07/09/2023. The patient is seen today in room 374. The patient is not receiving any supplemental oxygen, or IV fluids. From our perspective, the patient could be considered for possible discharge. Additional recommendations and suggestions are forthcoming. Labs, x-rays, and medications are reviewed. We will continue to follow the patient should he stay in the hospital. Eventually, the hydrocortisone can be converted to Cortef, 20 mg in the morning, 10 mg in the evening Plan dated 07/10/2023. The patient is seen today in room 628. Yesterday, he was room 374. Solu-Cortef was discontinued in favor of Cortef, 10 mg in the evening, 20 mg in the morning. In addition, the patient's receiving Lasix for his diffuse edema and anasarca. The patient does have pancytopenia, which is being addressed, by hematology. Currently, he's on DuoNeb nebs, Symbicort, and oral prednisone 40 mg a day. Additional recommendations and suggestions are forthcoming. He's on room air. No IV fluids. Current respiratory status is stable. We will continue to follow make recommendations along the way. Prognosis is guarded. Plan dated 07/11/2023. The patient is seen today with 628. He's on room air. No IV fluids. From the pulmonary standpoint, the patient is stable, and could be considered for possible discharge. The patient's hemoglobin today was low, and he may receive a unit of PRBCs. We'll leave that up to the primary service. Labs, x-rays, medications are reviewed. From the pulmonary standpoint, the patient's on DuoNeb nebs, Symbicort, and prednisone. We will continue to follow make recommendations along the way. Prognosis is guarded. Plan dated 07/12/2023. The patient is seen today in room 350. The patient's currently on room air. The patient is on Lasix drip at 10 mg an hour. He currently is on updrafts, Symbicort, and Cortef. Labs, x-rays, medications are reviewed. Clinically, he appears to be doing better. He still short of breath on exertion. His breath sounds are still a bit coarse. He's received a total of 2 units of PRBCs. We will continue to follow make recommendations along the way. The patient's overall prognosis remains guarded. Time with Patient: Less than 30
--- NOTE | 2023-07-12 13:46 | P.PN ---
Subjective Progress Note Date: 07/12/23 This is a 67 year old male who is admitted for acute COPD exacerbation, NSTEMI. Patient also has evidence of compression fracture and has TLSO brace. Patient continues with significant weakness. Noted to have increased lower extremity edema and was started on IV lasix Q12. PT/OT will be ordered. Patient continues to feel short of breath mostly with exertion. He is also being treated for a suspected adrenal insufficiency and remains on IV solucortef 100 mg Q8h. 07/09/2023 Patient is evaluated today sitting up at the edge of the bed. Continues on IV lasix, lower extremity edema has improved some would recommend to anyi wrap the legs or use compression stockings and pt to elevate when sitting. No shortness of breath and remains on room air. Patient did have a fall overnight states he did not hit head but it was unwitnessed did have a drop in hemoglobin. Brain CT will be ordered to rule out bleed. Sodium 133 today, creatinine up to 1.83. 07/10/2023 Patient is evaluated today sitting up in the chair. He was moved to the medical surgical unit from stepdown yesterday. He continues on IV Lasix 40 mg every 12 hours. Nephrology is following closely. His creatinine today is up to 2.22. Additionally his hemoglobin is again 7.0.1 Unit of packed red blood cells has been ordered. Patient is also on midodrine 10 mg 3 times a day. Blood pressure is marginal with a low of 78/54 this AM. Amlodipine and lisinopril are being held. 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 There is partial opacification of the bilateral mastoid air cells correlate for mastoiditis. There is moderate right maxillary sinus disease. He reports his headache has improved. He denies any prior history of stroke. Continues to report significant pain in the right hip. Patient remains an abnormal cosyntropin 0.5 every 8 hours and lidocaine patches also added. Orthopedics recommended conservative management for the muscular skeletal pain. 07/11/2023 Patient is evaluated today resting in bed. He continues to report significant pain to the right hip will re xray and need to discuss with orthopedics. May need CT scan. Patient continues with significant bilateral lower extremity edema and continues on IV lasix Q12, nephrology recommending lasix gtt. Patients hemoglobin 6.8 today and will receive 1 unit of blood. He is having some abdominal pain however when asked he points to his right groin having some deferred pain there. He has no obvious bruising over the right hip or in the right groin. Sodium is 131. Creatinine worsening at 2.50. 07/12/2023 Patient is evaluated today sitting up in the chair. His hemoglobin up to 8.3 today, received a dose of DDAVP and 1 unit PRBC's yesterday. No signs of acute bleeding. He has been started on lasix gtt at 10 mls/hr. 750 mls of urine output documented in the last 24 hours. Patient should have legs ANYI wrapped. hgb 8.3, sodium 129, BUN 67, creatinine 2.49, magnesium 1.8. Blood pressure increased up to 134/77 today. Review of Systems Constitutional: Reports fatigue, denied any fever. Cardio vascular: denied any chest pain, palpitations Gastrointestinal: denied any nausea, vomiting, diarrhea Pulmonary: Denied any shortness of breath cough Neurologic denied any new focal deficits Reports weakness. All inpatient medications were reviewed and appropriate changes in these medications as dictated in the interval history and assessment and plan. PHYSICAL EXAMINATION: GENERAL: The patient is alert and oriented x3, not in any acute distress. Well developed, well nourished. Pale. Fatigued. HEENT: Pupils are round and equally reacting to light. EOMI. No scleral icterus. No conjunctival pallor. Normocephalic, atraumatic. No pharyngeal erythema. No thyromegaly. CARDIOVASCULAR: S1 and S2 present. No murmurs, rubs, or gallops. PULMONARY: Chest is clear to auscultation, no wheezing or crackles. ABDOMEN: Soft, nontender, nondistended, normoactive bowel sounds. No palpable organomegaly. MUSCULOSKELETAL: No joint swelling or deformity. EXTREMITIES: No cyanosis, clubbing, 2+ lower extremity edema NEUROLOGICAL: Significant generalized weakness. SKIN: No rashes. Assessment -Status post fall with compression fracture of L3 spine has LSO brace at home does not like wearing. -Elevated troponin type II MN -COPD exacerbation with acute hypoxic respiratory failure currently weaned to room air -Acute hyponatremia -Ascites and concern of liver cirrhosis on abdominal pelvis CT. -Suspected adrenal insufficiency maintained on IV solucortef -Hyperkalemia improved -Acute kidney injury secondary to ATN improved with LR and then worsened -Metabolic acidosis improved -Transient hypotension -Bicytopenia macrocytic hemoglobin 6.8 patient to receive 1 unit of PRBC today. GI prophylaxis DVT prophylaxis subcu heparin Full Code Plan -Physical therapy has been consulted for evaluation -Heparin was discontinued secondary to anemia, OK for DVT prophylaxis per hematology if platelet count above 50,000. Today was 57,000 Subcu heparin started. -Needs GI follow up outpatient for the liver cirrhosis, abdominal ultrasound showing small ascites. -Transitioned to oral hydrocortisone and will need to f/u with endocrinology outpatient. -Patient will be started on lasix gtt and continues has IDC in place nephrology following. -Follow up labs in AM The impression and plan of care has been dictated by Rebekah Augustin, Nurse Practitioner as directed. Dr. Willard MD I have performed a history and physical examination and medical decision making of this patient, discussed the same with the dictator, and agree with the dictators assessment and plan as written, documented as a scribe. Based on total visit time, I have performed more than 50% of this visit. Objective - Vital Signs Vital signs: Vital Signs Temp 98 F 07/12/23 08:00 Pulse 89 07/12/23 12:32 Resp 19 07/12/23 08:00 BP 107/55 07/12/23 12:32 Pulse Ox 96 07/12/23 12:32 FiO2 21 07/05/23 09:14 Intake & Output 07/11/23 07/12/23 07/12/23 18:59 06:59 18:59 Intake Total 1440 314.167 82.833 Output Total 450 300 Balance 990 14.167 82.833 Weight 85.729 kg Intake: Intake, IV Titration 78.167 82.833 Amount Furosemide 100 mg In 78.167 82.833 Sodium Chloride 0.9% 90 ml @ 10 MG/HR 10 mls/hr IV .Q10H [facility] Rx#: [id number] Oral 1130 236 0 Blood Product 310 Rc As-1 Unit 310 [id number] Output: Urine 450 300 Other: Voiding Method Indwelling Catheter Indwelling Catheter Indwelling Catheter - Labs CBC & Chem 7: 07/12/23 07:28 07/12/23 07:28 Labs: Abnormal Lab Results - Last 24 Hours (Table) 07/11/23 07/11/23 07/11/23 Range/Units 05:50 09:06 20:00 RBC (4.30-5.90) m/uL Hgb (13.0-17.5) gm/dL Hct (39.0-53.0) % MCV (80.0-100.0) fL MCH (25.0-35.0) pg RDW (11.5-15.5) % Plt Count (150-450) k/uL Lymphocytes # (1.0-4.8) k/uL Macrocytosis Sodium (137-145) mmol/L Chloride (98-107) mmol/L BUN (9-20) mg/dL Creatinine (0.66-1.25) mg/dL Glucose (74-99) mg/dL POC Glucose (mg/dL) 64 L (70-110) mg/dL Calcium (8.4-10.2) mg/dL Ceruloplasmin 10.0 L (20.0-60.0) mg/dL Urine Blood (Negative) Ur Leukocyte Esterase (Negative) Urine RBC (0-5) /hpf Urine Bacteria (None) /hpf Hyaline Casts (0-2) /lpf Urine Mucus (None) /hpf Crossmatch See Detail 07/11/23 07/12/23 07/12/23 Range/Units 20:48 06:05 06:21 RBC (4.30-5.90) m/uL Hgb (13.0-17.5) gm/dL Hct (39.0-53.0) % MCV (80.0-100.0) fL MCH (25.0-35.0) pg RDW (11.5-15.5) % Plt Count (150-450) k/uL Lymphocytes # (1.0-4.8) k/uL Macrocytosis Sodium (137-145) mmol/L Chloride (98-107) mmol/L BUN (9-20) mg/dL Creatinine (0.66-1.25) mg/dL Glucose (74-99) mg/dL POC Glucose (mg/dL) 67 L 66 L (70-110) mg/dL Calcium (8.4-10.2) mg/dL Ceruloplasmin (20.0-60.0) mg/dL Urine Blood Moderate H (Negative) Ur Leukocyte Esterase Trace H (Negative) Urine RBC 12 H (0-5) /hpf Urine Bacteria Occasional H (None) /hpf Hyaline Casts 42 H (0-2) /lpf Urine Mucus Rare H (None) /hpf Crossmatch 07/12/23 07/12/23 07/12/23 Range/Units 07:28 07:28 11:24 RBC 2.30 L (4.30-5.90) m/uL Hgb 8.3 L D (13.0-17.5) gm/dL Hct 25.1 L (39.0-53.0) % MCV 109.0 H D (80.0-100.0) fL MCH 36.3 H (25.0-35.0) pg RDW 21.2 H (11.5-15.5) % Plt Count 57 L (150-450) k/uL Lymphocytes # 0.9 L (1.0-4.8) k/uL Macrocytosis Marked A Sodium 129 L (137-145) mmol/L Chloride 97 L (98-107) mmol/L BUN 67 H (9-20) mg/dL Creatinine 2.49 H (0.66-1.25) mg/dL Glucose 132 H (74-99) mg/dL POC Glucose (mg/dL) 116 H (70-110) mg/dL Calcium 7.5 L (8.4-10.2) mg/dL Ceruloplasmin (20.0-60.0) mg/dL Urine Blood (Negative) Ur Leukocyte Esterase (Negative) Urine RBC (0-5) /hpf Urine Bacteria (None) /hpf Hyaline Casts (0-2) /lpf Urine Mucus (None) /hpf Crossmatch Assessment and Plan Time with Patient: Less than 30
[2023-07-12 16:14] LABS: Glucose,Whole Blood 133 mg/dL (70-110)
[2023-07-12] MEDS: traMADol 50 MG TAB PO PRN (18:26)
[2023-07-12 19:47] LABS: Glucose,Whole Blood 157 mg/dL (70-110)
[2023-07-12] MEDS: HYDROCORTISONE 10 MG TAB PO SCH (22:35)
[2023-07-13] MEDS: FUROSEMIDE 100 MG in SODIUM CHLORIDE 0.9% 90 ML IV SCH ×2 (03:00→11:56)
[2023-07-13] MEDS: HYDROcodone/APAP 7.5-325MG 1 EACH TAB PO PRN ×3 (06:05→18:38)
[2023-07-13 06:14] LABS: Glucose,Whole Blood 149 mg/dL (70-110)
[2023-07-13] MEDS: INSULIN ASPART (NovoLOG) 100 UNIT/ML VIAL SQ SCH ×4 (06:36→21:02)
[2023-07-13] MEDS: MIDODRINE 5 MG TAB PO SCH ×3 (06:36→18:08)
[2023-07-13] MEDS: METOPROLOL TARTRATE 12.5 MG TAB PO SCH ×2 (09:10→21:02)
[2023-07-13] MEDS: CHOLECALCIFEROL 25 MCG (1000 IU) TABLET PO SCH (09:10)
[2023-07-13] MEDS: LIDOCAINE 5% PATCH TOPICAL SCH (09:10)
[2023-07-13] MEDS: FOLIC ACID 1 MG TAB PO SCH (09:10)
[2023-07-13] MEDS: FAMOTIDINE 20 MG TAB PO SCH (09:10)
[2023-07-13] MEDS: THIAMINE 100 MG TAB PO SCH (09:10)
[2023-07-13] MEDS: HEPARIN SODIUM,PORCINE 5,000 UNIT/ML 1 ML VIAL SQ SCH (09:11)
[2023-07-13] MEDS: SYMBICORT 160-4.5 MCG INHALER INHALATION SCH ×2 (09:40→20:27)
[2023-07-13] MEDS: IPRATROPIUM-ALBUTEROL 3 ML NEB INHALATION SCH ×4 (09:41→20:27)
[2023-07-13 11:23] LABS: Glucose,Whole Blood 148 mg/dL (70-110)
--- NOTE | 2023-07-13 11:38 | P.PN ---
Subjective Progress Note Date: 07/13/23 Principal diagnosis: COPD, shortness of breath, non-ST segment elevation myocardial infarction. Patient was reevaluated today on 07/05/2023,, patient is feeling better, he seems to be quite comfortable, he is actually on room air. His WBC count is 4.4 hemoglobin 7.9 electrolytes are normal except for sodium of 129 a uterine is 50 creatinine 1.52, steadily improving compared to a creatinine of 1.852 days ago. Serum cortisol was 8, hip x-rays showed mild right hip osteoarthritis otherwise no significant findings chest x-ray on admission showed chronic changes and no acute pulmonary process. Apparently someone ordered a VQ scan which showed no evidence of pulmonary embolism Patient was reevaluated today on 07/06/2023, pulmonary-nicole the patient is doing great, he is asymptomatic no cough no wheezing no shortness of breath, and the patient remains on room air. Patient is maintained on bicarb drip for his metabolic acidosis and this is being addressed by nephrology on the case. CT of the abdomen showed no obstruction and no hydronephrosis. Patient has been stea dily improving. His cortisol level was 8, however the patient was on methylprednisolone at 60 mg IV push every 6 hours, this is considered relatively extremely low cortisol, and the patient may have adrenal insufficiency. May have to seriously consider Cortrosyn stimulation test on this patient for 3 with Solu-Cortef, for presumptive adrenal insufficiency considering the cortisol level is that low in spite of being on methylprednisolone. Especially with the blood pressure being soft and seems to be on the low side today's labs continued to show hyponatremia and hyperkalemia with BUN of 57 creatinine 1.79 with WC out of 2.9 hemoglobin of 8 Patient was reevaluated today on 07/07/2023, patient seems to be doing well today, feeling much better, breathing a lot easier, he has hardly any pulmonary symptoms. And the patient remains on room air. Yesterday, I ordered a repeat serum cortisol level, and came back low again at 5 although the patient has been all along on methylprednisolone and on prednisone. Hence considering his hyponatremia and hyperkalemia and hypotension, I am strongly suspicious that we may be dealing with adrenal insufficiency. Will give the patient a trial of So madelin-Cortef, 100 mg IV push, unless we can actually do a Cortrosyn stimulation test on this patient prior to Solu-Cortef given. In the meantime I will go ahead and stop his prednisone and switch him to Solu-Cortef Today Were Reviewed Continues to Have Elevated BUN of 58 Creatinine 1.85 and Continues to Have Relative Hyponatremia and Hyperkalemia Progress note dated 07/08/2023. 63-year-old male seen today in room 374. Currently, the patient is on room air. The patient was receiving hydrocortisone 100 mg every 8 hours, given to him by my partner, for a cortisol level that was only 5. The patient's also getting saline at 75 mL an hour. Patient appears to be relatively stable. Labs today i nclude a sodium 132, potassium 4.7, chlorides 101, CO2 24, BUN 56, and creatinine 1.66. Glucose is 121. Progress note dated 07/09/2023. 63-year-old male seen today in room 374. Currently, the patient is on room air, with saturations of 93%. The patient is not receiving any IV fluids. The patie nt is on hydrocortisone for suspected relative adrenal insufficiency. Currently laboratory data includes a white count 2.5, hemoglobin 7, hematocrit 21.3, and a platelet count of 39,000. Sodium 133, potassium 4.5, chlorides 102, CO2 27, BUN 56, creatinine 1.83. Computed tomography scan of the brain shows no acute intracranial process. Progress note dated 07/10/2023. 63-year-old male who was seen in room 628. The patient was seen yesterday on the third floor. The patient was admitted with a COPD exacerbation. Currently, he's on appropriate medications including Symbicort, albuterol, ipratropium bromide, and prednisone. In addition, he had a low cortisol level, and he was started on hydrocortisone IV, and, today is switched to Cortef, 20 mg in the morning, 10 mg the evening. Currently, the patient is receiving Lasix twice a day IV, as he has significant edema and anasarca. He has significant lower extremity edema. She denies any breathing issues. He was smoking up until time he came into the hospital. Current laboratory includes a white count 3.3, hemoglobin 7, hematocrit 21.2, and a platelet count of 46,000. The CBC profile is consistent with pancytopenia. Sodium 132, potassium 4.5, chlorides 101, CO2 23, BUN 63, creatinine 2.22. Progress note dated 07/11/2023. 63-year-old male seen in room 628. Currently, the patient's on room air. He's not receiving any IV fluids. Today's labs include a white count of 4.2, hemoglobin 6.8, hematocrit 20.9, and a platelet count is currently pending. Sodium 131, potassium 4.1, chlorides 100, CO2 24, BUN 65, and creatinine 2.50. Clinically, the patient is doing about the same. The patient's currently on Cortef 20 mg in the morning 10 mg in the evening for suspected adrenal insufficiency. In addition, the patient is receiving Lasix for his edema/anasarca. The COPD exacerbation standpoint, the patient is doing well. He is on albuterol, ipratropium bromide, Symbicort, and prednisone. Progress note dated 07/12/2023. 63-year-old male seen today in room 350. The patient's currently on room air. The patient is on a Lasix drip at 10 mg an hour. He has received a total of 2 units of packed red blood cells, clinically, although looking pale, he seems to be doing relatively well. He denies any worsening shortness of breath. He does have COPD. White count of 6.5, hemoglobin 8.3, hematocrit 25.1, and platelet count 57,000. Sodium 129, potassium 4.5, chlorides 97, CO2 23, BUN 67, creatinine 2.49. Progress note dated 07/13/2023. 63-year-old male seen in room 350. Currently, the patient's on room air. He continues on a Lasix drip at 10 mg an hour. The patient is not receiving any IV fluids. Clinically, when asked, he is feeling better. Today's labs include a glucose of 148. Objective - Vital Signs Vital signs: Vital Signs Temp 97.3 F L 07/13/23 08:00 Pulse 84 07/13/23 08:00 Resp 18 07/13/23 08:00 BP 119/68 07/13/23 08:00 Pulse Ox 98 07/13/23 08:00 FiO2 21 07/05/23 09:14 Intake & Output 07/12/23 07/13/23 07/13/23 18:59 06:59 18:59 Intake Total 662.833 Output Total 1000 1300 Balance -337.167 -1300 Weight 85.729 kg 99.5 kg Intake: Intake, IV Titration 182.833 Amount Furosemide 100 mg In 182.833 Sodium Chloride 0.9% 90 ml @ 10 MG/HR 10 mls/hr IV .Q10H [facility] Rx#: [id number] Oral 480 Output: Urine 1000 1300 Other: Voiding Method Indwelling Catheter Indwelling Catheter Indwelling Catheter - Exam No acute distress, oriented 3. The patient's currently on room air. No respiratory distress. HEENT examination is grossly unremarkable. Mucous membranes are moist. No oral lesions. Neck supple. Full range of motion. No adenopathy thyromegaly or neck vein distention. Cardiovascular examination reveals regular rhythm rate. S1-S2 normal. No S3 or S4. No discernible murmur noted. Heart rate 84 bpm. Lungs reveal mostly clear breath sounds. Scattered rhonchi. No wheezes or crackles. Room air saturation 98 %. Abdomen soft bowel sounds are heard. No masses or tenderness. Extremities are intact. No cyanosis or clubbing. The patient has significant pitting edema in the lower extremities. Skin is without rash. Multiple areas of ecchymoses. Neurologic examination is brief but nonfocal. - Labs CBC & Chem 7: 07/12/23 07:28 07/12/23 07:28 Labs: Abnormal Lab Results - Last 24 Hours (Table) 07/12/23 07/12/23 07/13/23 Range/Units 16:14 19:45 06:13 POC Glucose (mg/dL) 133 H 157 H 149 H (70-110) mg/dL 07/13/23 Range/Units 11:21 POC Glucose (mg/dL) 148 H (70-110) mg/dL Assessment and Plan Assessment: Acute hypoxemic respiratory failure secondary to COPD exacerbation. Elevated troponins, currently being addressed by cardiology. Non-anion gap metabolic acidosis. Acute kidney injury. Macrocytic anemia. Pancytopenia. History of alcohol abuse. Diabetes mellitus. Subclinical hypothyroidism. Chronic and ongoing tobacco dependence. Chronic low back pain. Probable adrenal insufficiency. Plan: Plan dated 07/08/2023. The patient is receiving Solu-Cortef, 100 mg, every 8 hours. It was started by my partner. Cortisol level was low at 5. Currently, the patient's on room air. The patient is getting saline at 75 mL an hour. We will continue to follow the patient and make recommendations along the way. Labs, x-rays, medications are reviewed. Prognosis is guarded. Plan dated 07/09/2023. The patient is seen today in room 374. The patient is not receiving any supplemental oxygen, or IV fluids. From our perspective, the patient could be considered for possible discharge. Additional recommendations and suggestions are forthcoming. Labs, x-rays, and medications are reviewed. We will continue to follow the patient should he stay in the hospital. Eventually, the hydrocortisone can be converted to Cortef, 20 mg in the morning, 10 mg in the evening Plan dated 07/10/2023. The patient is seen today in room 628. Yesterday, he was room 374. Solu-Cortef was discontinued in favor of Cortef, 10 mg in the evening, 20 mg in the morning. In addition, the patient's receiving Lasix for his diffuse edema and anasarca. The patient does have pancytopenia, which is being addressed, by hematology. Currently, he's on DuoNeb nebs, Symbicort, and oral prednisone 40 mg a day. Additional recommendations and suggestions are forthcoming. He's on room air. No IV fluids. Current respiratory status is stable. We will continue to follow make recommendations along the way. Prognosis is guarded. Plan dated 07/11/2023. The patient is seen today with 628. He's on room air. No IV fluids. From the pulmonary standpoint, the patient is stable, and could be considered for possible discharge. The patient's hemoglobin today was low, and he may receive a unit of PRBCs. We'll leave that up to the primary service. Labs, x-rays, medications are reviewed. From the pulmonary standpoint, the patient's on DuoNe b nebs, Symbicort, and prednisone. We will continue to follow make recommendations along the way. Prognosis is guarded. Plan dated 07/12/2023. The patient is seen today in room 350. The patient's currently on room air. The patient is on Lasix drip at 10 mg an hour. He currently is on updrafts, Symbicort, and Cortef. Labs, x-rays, medications are reviewed. Clinically, he appears to be doing better. He still short of breath on exertion. His breath sounds are still a bit coarse. He's received a total of 2 units of PRBCs. We will continue to follow make recommendations along the way. The patient's overall prognosis remains guarded. Plan dated 07/13/2023. Currently, the patient is maintained on the Lasix drip, at 10 mg an hour. The patient is not requiring any supplemental oxygen. His breathing is improved, and his COPD, seems to be under better control. Labs, x-rays, and medications are reviewed. The patient is not receiving any IV fluids. His diffuse edema and anasarca, is better in my opinion. We will continue to follow and make recommendations along the way. Prognosis is guarded. Time with Patient: Less than 30
[2023-07-13] MEDS: HYDROCORTISONE 20 MG TAB PO SCH (11:52)
--- NOTE | 2023-07-13 12:03 | P.PN ---
Subjective Patient is seen for follow-up for acute kidney injury. Currently maintained on Lasix drip. Patient has indwelling Charles catheter. 24 hour urine documented at 2.3 L. Serum creatinine staying at about 2.4-2.5 mg/dL. labs are pending from today Objective - Vital Signs Vital signs: Vital Signs Temp 97.3 F L 07/13/23 08:00 Pulse 84 07/13/23 08:00 Resp 18 07/13/23 08:00 BP 119/68 07/13/23 08:00 Pulse Ox 98 07/13/23 08:00 FiO2 21 07/05/23 09:14 Intake & Output 07/12/23 07/13/23 07/13/23 18:59 06:59 18:59 Intake Total 662.833 89.333 Output Total 1000 1300 Balance -337.167 -1300 89.333 Weight 85.729 kg 99.5 kg Intake: Intake, IV Titration 182.833 89.333 Amount Furosemide 100 mg In 182.833 89.333 Sodium Chloride 0.9% 90 ml @ 10 MG/HR 10 mls/hr IV .Q10H [facility] Rx#: [id number] Oral 480 Output: Urine 1000 1300 Other: Voiding Method Indwelling Catheter Indwelling Catheter Indwelling Catheter - Exam Patient is awake comfortable not in any acute distress Alert oriented 3 Examination of the heart S1 and S2 Examination of the lungs bilateral breath sounds are heard no crackles or wheezing is heard Abdomen is soft distended nontender Examination of lower extremities shows 2+ edema bilaterally [employer] exam grossly intact - Labs CBC & Chem 7: 07/12/23 07:28 07/12/23 07:28 Labs: Abnormal Lab Results - Last 24 Hours (Table) 07/12/23 07/12/23 07/13/23 Range/Units 16:14 19:45 06:13 POC Glucose (mg/dL) 133 H 157 H 149 H (70-110) mg/dL 07/13/23 Range/Units 11:21 POC Glucose (mg/dL) 148 H (70-110) mg/dL Assessment and Plan Assessment: 1. Acute kidney injury secondary to ATN secondary to hypotension, anemia. Likely underlying component of hepatorenal syndrome. No proteinuria on UA. Creatinine 2.5 today. Creatinine 0.7 dated February 06, 2023. 2. Volume overload. 3. Moderate mitral regurgitation. 4. Hypotension. Cortisol level on the lower side. On hydrocortisone. Cons ider endocrinology evaluation outpatient for workup for adrenal insufficiency. 5. Hypervolemic hyponatremia. 6. Pancytopenia being followed by hematology. Iron replete. 7. Hyperkalemia secondary to acute kidney injury and acidosis. Questionable adrenal insufficiency. Improved. 8. Urinary retention. Has Charles catheter. 9. Liver cirrhosis. 10. Acute blood loss anemia status post packed RBCs yesterday Plan: Continue with Lasix drip Repeat labs
--- NOTE | 2023-07-13 12:10 | P.PN ---
Subjective Progress Note Date: 07/13/23 This is a 67 year old male who is admitted for acute COPD exacerbation, NSTEMI. Patient also has evidence of compression fracture and has TLSO brace. Patient continues with significant weakness. Noted to have increased lower extremity edema and was started on IV lasix Q12. PT/OT will be ordered. Patient continues to feel short of breath mostly with exertion. He is also being treated for a suspected adrenal insufficiency and remains on IV solucortef 100 mg Q8h. 07/09/2023 Patient is evaluated today sitting up at the edge of the bed. Continues on IV lasix, lower extremity edema has improved some would recommend to eduardo wrap the legs or use compression stockings and pt to elevate when sitting. No shortness of breath and remains on room air. Patient did have a fall overnight states he did not hit head but it was unwitnessed did have a drop in hemoglobin. Brain CT will be ordered to rule out bleed. Sodium 133 today, creatinine up to 1.83. 07/10/2023 Patient is evaluated today sitting up in the chair. He was moved to the medical surgical unit from stepdown yesterday. He continues on IV Lasix 40 mg every 12 hours. Nephrology is following closely. His creatinine today is up to 2.22. Additionally his hemoglobin is again 7.0.1 Unit of packed red blood cells has been ordered. Patient is also on midodrine 10 mg 3 times a day. Blood pressure is marginal with a low of 78/54 this AM. Amlodipine and lisinopril are being held. 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 There is partial opacification of the bilateral mastoid air cells correlate for mastoiditis. There is moderate right maxillary sinus disease. He reports his headache has improved. He denies any prior history of stroke. Continues to report significant pain in the right hip. Patient remains an abnormal cosyntropin 0.5 every 8 hours and lidocaine patches also added. Orthopedics recommended conservative management for the muscular skeletal pain. 07/11/2023 Patient is evaluated today resting in bed. He continues to report significant pain to the right hip will re xray and need to discuss with orthopedics. May need CT scan. Patient continues with significant bilateral lower extremity edema and continues on IV lasix Q12, nephrology recommending lasix gtt. Patients hemoglobin 6.8 today and will receive 1 unit of blood. He is having some abdominal pain however when asked he points to his right groin having some deferred pain there. He has no obvious bruising over the right hip or in the right groin. Sodium is 131. Creatinine worsening at 2.50. 07/12/2023 Patient is evaluated today sitting up in the chair. His hemoglobin up to 8.3 today, received a dose of DDAVP and 1 unit PRBC's yesterday. No signs of acute bleeding. He has been started on lasix gtt at 10 mls/hr. 750 mls of urine output documented in the last 24 hours. Patient should have legs EDUARDO wrapped. hgb 8.3, sodium 129, BUN 67, creatinine 2.49, magnesium 1.8. Blood pressure increased up to 134/77 today. 07/13/2023 Patient is evaluated today sitting up in bed. He continues to report feeling fatigued and frustrated. He remains on IV Lasix drip running at 10 miles per hour. He is currently undergoing a 24-hour urine collection. No signs of active bleeding noted he is status post 2 units total of PRBCs. Lab work is not available for today is currently pending at this time. remained afebrile blood pressure is stable today at 119/68. He continues with significant lower extremity edema in his bilateral lower extremities are currently Eduardo wrapped. He has had marginal urine output does seem to have been picked up in the last 24 hours documented at 2.3 L over the last 24 hours. Nephrology is considering hemodialysis. Review of Systems Constitutional: Reports fatigue, denied any fever. Cardio vascular: denied any chest pain, palpitations Gastrointestinal: denied any nausea, vomiting, diarrhea Pulmonary: Denied any shortness of breath cough Neurologic denied any new focal deficits Reports weakness. All inpatient medications were reviewed and appropriate changes in these medications as dictated in the interval history and assessment and plan. PHYSICAL EXAMINATION: GENERAL: The patient is alert and oriented x3, not in any acute distress. Well developed, well nourished. Pale. Fatigued. HEENT: Pupils are round and equally reacting to light. EOMI. No scleral icterus. No conjunctival pallor. Normocephalic, atraumatic. No pharyngeal erythema. No thyromegaly. CARDIOVASCULAR: S1 and S2 present. No murmurs, rubs, or gallops. PULMONARY: Chest is clear to auscultation, no wheezing or crackles. ABDOMEN: Soft, nontender, nondistended, normoactive bowel sounds. No palpable organomegaly. MUSCULOSKELETAL: No joint swelling or deformity. EXTREMITIES: No cyanosis, clubbing, 2+ lower extremity edema NEUROLOGICAL: Significant generalized weakness. SKIN: No rashes. Assessment -Status post fall with compression fracture of L3 spine has LSO brace at home does not like wearing. -Elevated troponin type II AL -COPD exacerbation with acute hypoxic respiratory failure currently weaned to room air -Acute hyponatremia -Ascites and concern of liver cirrhosis on abdominal pelvis CT. -Suspected adrenal insufficiency maintained on IV solucortef -Hyperkalemia improved -Acute kidney injury secondary to ATN improved with LR and then worsened -Metabolic acidosis improved -Transient hypotension -Bicytopenia macrocytic hemoglobin 6.8 patient to receive 1 unit of PRBC today. GI prophylaxis DVT prophylaxis subcu heparin Full Code Plan -Physical therapy has been consulted for evaluation -Heparin was discontinued secondary to anemia, OK for DVT prophylaxis per hematology if platelet count above 50,000. Today was 57,000 Subcu heparin started. -Needs GI follow up outpatient for the liver cirrhosis, abdominal ultrasound showing small ascites. -Transitioned to oral hydrocortisone and will need to f/u with endocrinology outpatient. -Patient will be started on lasix gtt and continues has IDC in place nephrology following. Patient is undergoing a 24-hour urine collection and is being considered for hemodialysis. His urine output has remained marginal however seems to be improving. -Follow up labs in AM noted that his blood work from today still pending The impression and plan of care has been dictated by Rebekah Augustin, Nurse Practitioner as directed. Dr. Willard MD I have performed a history and physical examination and medical decision making of this patient, discussed the same with the dictator, and agree with the dic tators assessment and plan as written, documented as a scribe. Based on total visit time, I have performed more than 50% of this visit. Objective - Vital Signs Vital signs: Vital Signs Temp 97.3 F L 07/13/23 08:00 Pulse 84 07/13/23 08:00 Resp 18 07/13/23 08:00 BP 119/68 07/13/23 08:00 Pulse Ox 98 07/13/23 08:00 FiO2 21 10/13/23 09:14 Intake & Output 07/12/23 07/13/23 07/13/23 18:59 06:59 18:59 Intake Total 662.833 89.333 Output Total 1000 1300 Balance -337.167 -1300 89.333 Weight 85.729 kg 99.5 kg Intake: Intake, IV Titration 182.833 89.333 Amount Furosemide 100 mg In 182.833 89.333 Sodium Chloride 0.9% 90 ml @ 10 MG/HR 10 mls/hr IV .Q10H [facility] Rx#: [id number] Oral 480 Output: Urine 1000 1300 Other: Voiding Method Indwelling Catheter Indwelling Catheter Indwelling Catheter - Labs CBC & Chem 7: 07/12/23 07:28 07/12/23 07:28 Labs: Abnormal Lab Results - Last 24 Hours (Table) 07/12/23 07/12/23 07/13/23 Range/Units 16:14 19:45 06:13 POC Glucose (mg/dL) 133 H 157 H 149 H (70-110) mg/dL 07/13/23 Range/Units 11:21 POC Glucose (mg/dL) 148 H (70-110) mg/dL Assessment and Plan Time with Patient: Less than 30
[2023-07-13 12:36] LABS: Anisocytosis Moderate; Basophils % (A) 0 %; Eosinophils % (A) 0 %; Lymphocytes # (A) 0.3 k/uL (1.0-4.8); Lymphocytes % (A) 11 %; MCH 36.4 pg (25.0-35.0); MCHC 33.2 g/dL (31.0-37.0); MCV 109.6 fL (80.0-100.0); Macrocytosis Marked; Mean Platelet Volume 10.2; Monocytes # (A) 0.2 k/uL (0-1.0); Monocytes % (A) 6 %; Neutrophils % (A) 81 %; RBC 1.82 m/uL (4.30-5.90); RDW 20.9 % (11.5-15.5); WBC 2.5 k/uL (3.8-10.6)
[2023-07-13 12:50] LABS: Platelet Count 35 k/uL (150-450)
[2023-07-13 12:52] LABS: HGB 6.6 gm/dL (13.0-17.5)
[2023-07-13 13:24] LABS: African American GFR (CKD) 32 (>60 ml/min/1.73 sqM); Anion Gap 6 mmol/L; Blood Urea Nitrogen 64 mg/dL (9-20); Calcium 7.2 mg/dL (8.4-10.2); Carbon Dioxide 27 mmol/L (22-30); Chloride 96 mmol/L (98-107); Glucose 126 mg/dL (74-99); Non-African American GFR(CKD) 27 (>60 ml/min/1.73 sqM); Potassium 2.8 mmol/L (3.5-5.1); Sodium 129 mmol/L (137-145)
[2023-07-13] MEDS: POTASSIUM CHLORIDE ER 20 MEQ TAB.ER PO SCH ×2 (14:52→18:08)
[2023-07-13 16:25] LABS: Glucose,Whole Blood 213 mg/dL (70-110)
[2023-07-13 20:16] LABS: Glucose,Whole Blood 258 mg/dL (70-110)
[2023-07-13] MEDS: HYDROCORTISONE 10 MG TAB PO SCH (21:03)
[2023-07-13] MEDS: traMADol 50 MG TAB PO PRN (21:05)
[2023-07-14] MEDS: HYDROcodone/APAP 7.5-325MG 1 EACH TAB PO PRN ×2 (00:15→11:44)
[2023-07-14] MEDS ORDERED: QUEtiapine 25 MG TAB PO STA (02:26)
[2023-07-14] MEDS: traMADol 50 MG TAB PO PRN ×3 (03:25→21:00)
[2023-07-14 05:49] LABS: Glucose,Whole Blood 158 mg/dL (70-110)
[2023-07-14] MEDS: MIDODRINE 5 MG TAB PO SCH ×3 (06:40→17:48)
[2023-07-14] MEDS: INSULIN ASPART (NovoLOG) 100 UNIT/ML VIAL SQ SCH ×4 (06:45→21:01)
[2023-07-14] MEDS: SYMBICORT 160-4.5 MCG INHALER INHALATION SCH ×2 (08:17→21:23)
[2023-07-14] MEDS: IPRATROPIUM-ALBUTEROL 3 ML NEB INHALATION SCH ×4 (08:17→21:23)
--- NOTE | 2023-07-14 10:48 | P.PN ---
Subjective Progress Note Date: 07/14/23 Principal diagnosis: COPD, shortness of breath, non-ST segment elevation myocardial infarction. Patient was reevaluated today on 07/05/2023,, patient is feeling better, he seems to be quite comfortable, he is actually on room air. His WBC count is 4.4 hemoglobin 7.9 electrolytes are normal except for sodium of 129 a uterine is 50 creatinine 1.52, steadily improving compared to a creatinine of 1.852 days ago. Serum cortisol was 8, hip x-rays showed mild right hip osteoarthritis otherwise no significant findings chest x-ray on admission showed chronic changes and no acute pulmonary process. Apparently someone ordered a VQ scan which showed no evidence of pulmonary embolism Patient was reevaluated today on 07/06/2023, pulmonary-nicole the patient is doing great, he is asymptomatic no cough no wheezing no shortness of breath, and the patient remains on room air. Patient is maintained on bicarb drip for his metabolic acidosis and this is being addressed by nephrology on the case. CT of the abdomen showed no obstruction and no hydronephrosis. Patient has been stea dily improving. His cortisol level was 8, however the patient was on methylprednisolone at 60 mg IV push every 6 hours, this is considered relatively extremely low cortisol, and the patient may have adrenal insufficiency. May have to seriously consider Cortrosyn stimulation test on this patient for 3 with Solu-Cortef, for presumptive adrenal insufficiency considering the cortisol level is that low in spite of being on methylprednisolone. Especially with the blood pressure being soft and seems to be on the low side today's labs continued to show hyponatremia and hyperkalemia with BUN of 57 creatinine 1.79 with WC out of 2.9 hemoglobin of 8 Patient was reevaluated today on 07/07/2023, patient seems to be doing well today, feeling much better, breathing a lot easier, he has hardly any pulmonary symptoms. And the patient remains on room air. Yesterday, I ordered a repeat serum cortisol level, and came back low again at 5 although the patient has been all along on methylprednisolone and on prednisone. Hence considering his hyponatremia and hyperkalemia and hypotension, I am strongly suspicious that we may be dealing with adrenal insufficiency. Will give the patient a trial of So madelin-Cortef, 100 mg IV push, unless we can actually do a Cortrosyn stimulation test on this patient prior to Solu-Cortef given. In the meantime I will go ahead and stop his prednisone and switch him to Solu-Cortef Today Were Reviewed Continues to Have Elevated BUN of 58 Creatinine 1.85 and Continues to Have Relative Hyponatremia and Hyperkalemia Progress note dated 07/08/2023. 63-year-old male seen today in room 374. Currently, the patient is on room air. The patient was receiving hydrocortisone 100 mg every 8 hours, given to him by my partner, for a cortisol level that was only 5. The patient's also getting saline at 75 mL an hour. Patient appears to be relatively stable. Labs today i nclude a sodium 132, potassium 4.7, chlorides 101, CO2 24, BUN 56, and creatinine 1.66. Glucose is 121. Progress note dated 07/09/2023. 63-year-old male seen today in room 374. Currently, the patient is on room air, with saturations of 93%. The patient is not receiving any IV fluids. The patie nt is on hydrocortisone for suspected relative adrenal insufficiency. Currently laboratory data includes a white count 2.5, hemoglobin 7, hematocrit 21.3, and a platelet count of 39,000. Sodium 133, potassium 4.5, chlorides 102, CO2 27, BUN 56, creatinine 1.83. Computed tomography scan of the brain shows no acute intracranial process. Progress note dated 07/10/2023. 63-year-old male who was seen in room 628. The patient was seen yesterday on the third floor. The patient was admitted with a COPD exacerbation. Currently, he's on appropriate medications including Symbicort, albuterol, ipratropium bromide, and prednisone. In addition, he had a low cortisol level, and he was started on hydrocortisone IV, and, today is switched to Cortef, 20 mg in the morning, 10 mg the evening. Currently, the patient is receiving Lasix twice a day IV, as he has significant edema and anasarca. He has significant lower extremity edema. She denies any breathing issues. He was smoking up until time he came into the hospital. Current laboratory includes a white count 3.3, hemoglobin 7, hematocrit 21.2, and a platelet count of 46,000. The CBC profile is consistent with pancytopenia. Sodium 132, potassium 4.5, chlorides 101, CO2 23, BUN 63, creatinine 2.22. Progress note dated 07/11/2023. 63-year-old male seen in room 628. Currently, the patient's on room air. He's not receiving any IV fluids. Today's labs include a white count of 4.2, hemoglobin 6.8, hematocrit 20.9, and a platelet count is currently pending. Sodium 131, potassium 4.1, chlorides 100, CO2 24, BUN 65, and creatinine 2.50. Clinically, the patient is doing about the same. The patient's currently on Cortef 20 mg in the morning 10 mg in the evening for suspected adrenal insufficiency. In addition, the patient is receiving Lasix for his edema/anasarca. The COPD exacerbation standpoint, the patient is doing well. He is on albuterol, ipratropium bromide, Symbicort, and prednisone. Progress note dated 07/12/2023. 63-year-old male seen today in room 350. The patient's currently on room air. The patient is on a Lasix drip at 10 mg an hour. He has received a total of 2 units of packed red blood cells, clinically, although looking pale, he seems to be doing relatively well. He denies any worsening shortness of breath. He does have COPD. White count of 6.5, hemoglobin 8.3, hematocrit 25.1, and platelet count 57,000. Sodium 129, potassium 4.5, chlorides 97, CO2 23, BUN 67, creatinine 2.49. Progress note dated 07/13/2023. 63-year-old male seen in room 350. Currently, the patient's on room air. He continues on a Lasix drip at 10 mg an hour. The patient is not receiving any IV fluids. Clinically, when asked, he is feeling better. Today's labs include a glucose of 148. Progress note dated 07/14/2023. This is a 63-year-old male who is seen today in room 350. The patient's currently on room air. He's not receiving any IV fluids. Clinically, he feels better, and is breathing much better. Labs today include a glucose of 158. No chest x-ray to report. Objective - Vital Signs Vital signs: Vital Signs Temp 97.8 F 07/14/23 04:00 Pulse 102 H 10/22/23 04:00 Resp 18 07/14/23 04:00 BP 106/64 07/14/23 04:00 Pulse Ox 93 L 07/14/23 04:00 FiO2 21 07/05/23 09:14 Intake & Output 07/13/23 07/14/23 07/14/23 18:59 06:59 18:59 Intake Total 767.333 293 Output Total 1250 900 Balance -482.667 -607 Weight 93.8 kg Intake: Intake, IV Titration 89.333 Amount Furosemide 100 mg In 89.333 Sodium Chloride 0.9% 90 ml @ 10 MG/HR 10 mls/hr IV .Q10H [facility] Rx#: [id number] Oral 678 Blood Product 0 293 Rc Pheresis As-3 Unit 0 293 [id number] Output: Urine 1250 900 Other: Voiding Method Indwelling Catheter Indwelling Catheter - Exam No acute distress, oriented 3. The patient's currently on room air. No respiratory distress. HEENT examination is grossly unremarkable. Mucous membranes are moist. No oral lesions. Neck supple. Full range of motion. No adenopathy thyromegaly or neck vein distention. Cardiovascular examination reveals regular rhythm rate. S1-S2 normal. No S3 or S4. No discernible murmur noted. Heart rate 91 bpm. Lungs reveal mostly clear breath sounds. Scattered rhonchi. No wheezes or crackles. Room air saturation is 93 %. Abdomen soft bowel sounds are heard. No masses or tenderness. Extremities are intact. No cyanosis or clubbing. The patient has significant pitting edema in the lower extremities. Skin is without rash. Multiple areas of ecchymoses. Neurologic examination is brief but nonfocal. - Labs CBC & Chem 7: 07/13/23 11:09 07/13/23 22:57 Labs: Abnormal Lab Results - Last 24 Hours (Table) 07/11/23 07/13/23 07/13/23 Range/Units 09:06 11:09 11:09 WBC 2.5 L (3.8-10.6) k/uL RBC 1.82 L (4.30-5.90) m/uL Hgb 6.6 L* D (13.0-17.5) gm/dL Hct 20.0 L (39.0-53.0) % MCV 109.6 H (80.0-100.0) fL MCH 36.4 H (25.0-35.0) pg RDW 20.9 H (11.5-15.5) % Plt Count 35 L (150-450) k/uL Lymphocytes # 0.3 L (1.0-4.8) k/uL Macrocytosis Marked A Sodium 129 L (137-145) mmol/L Potassium 2.8 L (3.5-5.1) mmol/L Chloride 96 L (98-107) mmol/L BUN 64 H (9-20) mg/dL Creatinine 2.45 H (0.66-1.25) mg/dL Glucose 126 H (74-99) mg/dL POC Glucose (mg/dL) (70-110) mg/dL Calcium 7.2 L (8.4-10.2) mg/dL Crossmatch See Detail 07/13/23 07/13/23 07/13/23 Range/Units 11:21 16:20 20:14 WBC (3.8-10.6) k/uL RBC (4.30-5.90) m/uL Hgb (13.0-17.5) gm/dL Hct (39.0-53.0) % MCV (80.0-100.0) fL MCH (25.0-35.0) pg RDW (11.5-15.5) % Plt Count (150-450) k/uL Lymphocytes # (1.0-4.8) k/uL Macrocytosis Sodium (137-145) mmol/L Potassium (3.5-5.1) mmol/L Chloride (98-107) mmol/L BUN (9-20) mg/dL Creatinine (0.66-1.25) mg/dL Glucose (74-99) mg/dL POC Glucose (mg/dL) 148 H 213 H 258 H (70-110) mg/dL Calcium (8.4-10.2) mg/dL Crossmatch 07/13/23 07/14/23 Range/Units 22:57 05:48 WBC (3.8-10.6) k/uL RBC (4.30-5.90) m/uL Hgb (13.0-17.5) gm/dL Hct (39.0-53.0) % MCV (80.0-100.0) fL MCH (25.0-35.0) pg RDW (11.5-15.5) % Plt Count (150-450) k/uL Lymphocytes # (1.0-4.8) k/uL Macrocytosis Sodium (137-145) mmol/L Potassium 3.1 L (3.5-5.1) mmol/L Chloride (98-107) mmol/L BUN (9-20) mg/dL Creatinine (0.66-1.25) mg/dL Glucose (74-99) mg/dL POC Glucose (mg/dL) 158 H (70-110) mg/dL Calcium (8.4-10.2) mg/dL Crossmatch Assessment and Plan Assessment: Acute hypoxemic respiratory failure secondary to COPD exacerbation. Non-anion gap metabolic acidosis. Acute kidney injury. Macrocytic anemia. Pancytopenia. History of alcohol abuse. Diabetes mellitus. Subclinical hypothyroidism. Chronic and ongoing tobacco dependence. Chronic low back pain. Probable adrenal insufficiency. Plan: Plan dated 07/08/2023. The patient is receiving Solu-Cortef, 100 mg, every 8 hours. It was started by my partner. Cortisol level was low at 5. Currently, the patient's on room air. The patient is getting saline at 75 mL an hour. We will continue to follow the patient and make recommendations along the way. Labs, x-rays, medications are reviewed. Prognosis is guarded. Plan dated 07/09/2023. The patient is seen today in room 374. The patient is not receiving any supplemental oxygen, or IV fluids. From our perspective, the patient could be considered for possible discharge. Additional recommendations and suggestions are forthcoming. Labs, x-rays, and medications are reviewed. We will continue to follow the patient should he stay in the hospital. Eventually, the hydrocortisone can be converted to Cortef, 20 mg in the morning, 10 mg in the evening Plan dated 07/10/2023. The patient is seen today in room 628. Yesterday, he was room 374. Solu-Cortef was discontinued in favor of Cortef, 10 mg in the evening, 20 mg in the morning. In addition, the patient's receiving Lasix for his diffuse edema and anasarca. The patient does have pancytopenia, which is being addressed, by hematology. Currently, he's on DuoNeb nebs, Symbicort, and oral prednisone 40 mg a day. Additional recommendations and suggestions are forthcoming. He's on room air. No IV fluids. Current respiratory status is stable. We will continue to follow make recommendations along the way. Prognosis is guarded. Plan dated 07/11/2023. The patient is seen today with 628. He's on room air. No IV fluids. From the pulmonary standpoint, the patient is stable, and could be considered for possible discharge. The patient's hemoglobin today was low, and he may receive a unit of PRBCs. We'll leave that up to the primary service. Labs, x-rays, medications are reviewed. From the pulmonary standpoint, the patient's on DuoNeb nebs, Symbicort, and prednisone. We will continue to follow make recommendations along the way. Prognosis is guarded. Plan dated 07/12/2023. The patient is seen today in room 350. The patient's currently on room air. The patient is on Lasix drip at 10 mg an hour. He currently is on updrafts, Symbicort, and Cortef. Labs, x-rays, medications are reviewed. Clinically, he appears to be doing better. He still short of breath on exertion. His breath sounds are still a bit coarse. He's received a total of 2 units of PRBCs. We will continue to follow make recommendations along the way. The patient's overall prognosis remains guarded. Plan dated 07/13/2023. Currently, the patient is maintained on the Lasix drip, at 10 mg an hour. The patient is not requiring any supplemental oxygen. His breathing is improved, and his COPD, seems to be under better control. Labs, x-rays, and medications are reviewed. The patient is not receiving any IV fluids. His diffuse edema and anasarca, is better in my opinion. We will continue to follow and make recommendations along the way. Prognosis is guarded. Plan dated 07/14/2023. The patient's doing better from the COPD standpoint. His COPD with active, but is now better control. In addition, the patient was on a Lasix drip for diffuse edema, and anasarca. That has improved somewhat. The patient denies any chest pain or chest discomfort. Labs, x-rays, medications are reviewed. The patient's on appropriate medications at this time. He continues on updrafts with albuterol and ipratropium bromide, and Symbicort. Addition, the patient is on Cortef, 20 mg in the morning, and 10 mg in the evening, for suspected adrenal insufficiency. Time with Patient: Less than 30
[2023-07-14 10:56] LABS: Anisocytosis Moderate; Basophils % (A) 1 %; Eosinophils % (A) 1 %; HCT 22.7 % (39.0-53.0); HGB 7.7 gm/dL (13.0-17.5); Lymphocytes # (A) 0.3 k/uL (1.0-4.8); Lymphocytes % (A) 15 %; MCH 35.1 pg (25.0-35.0); MCHC 33.8 g/dL (31.0-37.0); Macrocytosis Marked; Mean Platelet Volume 9.8; Monocytes # (A) 0.1 k/uL (0-1.0); Monocytes % (A) 5 %; Neutrophils # (A) 1.6 k/uL (1.3-7.7); Neutrophils % (A) 77 %; RBC 2.19 m/uL (4.30-5.90); RDW 21.4 % (11.5-15.5)
[2023-07-14 11:06] LABS: African American GFR (CKD) 36 (>60 ml/min/1.73 sqM); Anion Gap 7 mmol/L; Blood Urea Nitrogen 64 mg/dL (9-20); Calcium 7.1 mg/dL (8.4-10.2); Carbon Dioxide 26 mmol/L (22-30); Chloride 98 mmol/L (98-107); Glucose 123 mg/dL (74-99); Non-African American GFR(CKD) 31 (>60 ml/min/1.73 sqM); Potassium 2.8 mmol/L (3.5-5.1); Sodium 131 mmol/L (137-145)
[2023-07-14 11:15] LABS: Platelet Count 30 k/uL (150-450)
--- NOTE | 2023-07-14 11:26 | P.PN ---
Subjective Patient is seen for follow-up for acute kidney injury. Currently maintained on Lasix drip. Patient has indwelling Charles catheter. 24 hour urine documented at 2.1 L. Serum creatinine at 2.2 today. Potassium was low at 2.8. Patient has been refu sing meds. Objective - Vital Signs Vital signs: Vital Signs Temp 97.8 F 07/14/23 04:00 Pulse 102 H 07/14/23 04:00 Resp 18 07/14/23 04:00 BP 106/64 07/14/23 04:00 Pulse Ox 93 L 07/14/23 04:00 FiO2 21 07/05/23 09:14 Intake & Output 07/13/23 07/14/23 07/14/23 18:59 06:59 18:59 Intake Total 767.333 293 Output Total 1250 900 Balance -482.667 -607 Weight 93.8 kg Intake: Intake, IV Titration 89.333 Amount Furosemide 100 mg In 89.333 Sodium Chloride 0.9% 90 ml @ 10 MG/HR 10 mls/hr IV .Q10H [facility] Rx#: [id number] Oral 678 Blood Product 0 293 Rc Pheresis As-3 Unit 0 293 [id number] Output: Urine 1250 900 Other: Voiding Method Indwelling Catheter Indwelling Catheter - Exam Patient is awake comfortable not in any acute distress Alert oriented 3 Examination of the heart S1 and S2 Examination of the lungs bilateral breath sounds are heard no crackles or wheezing is heard Abdomen is soft distended nontender Examination of lower extremities shows 2+ edema bilaterally [employer] exam grossly intact - Labs CBC & Chem 7: 07/14/23 10:45 07/14/23 10:45 Labs: Abnormal Lab Results - Last 24 Hours (Table) 07/11/23 07/13/23 07/13/23 Range/Units 09:06 11:09 11:09 WBC 2.5 L (3.8-10.6) k/uL RBC 1.82 L (4.30-5.90) m/uL Hgb 6.6 L* D (13.0-17.5) gm/dL Hct 20.0 L (39.0-53.0) % MCV 109.6 H (80.0-100.0) fL MCH 36.4 H (25.0-35.0) pg RDW 20.9 H (11.5-15.5) % Plt Count 35 L (150-450) k/uL Lymphocytes # 0.3 L (1.0-4.8) k/uL Macrocytosis Marked A Sodium 129 L (137-145) mmol/L Potassium 2.8 L (3.5-5.1) mmol/L Chloride 96 L (98-107) mmol/L BUN 64 H (9-20) mg/dL Creatinine 2.45 H (0.66-1.25) mg/dL Glucose 126 H (74-99) mg/dL POC Glucose (mg/dL) (70-110) mg/dL Calcium 7.2 L (8.4-10.2) mg/dL Crossmatch See Detail 07/13/23 07/13/23 07/13/23 Range/Units 16:20 20:14 22:57 WBC (3.8-10.6) k/uL RBC (4.30-5.90) m/uL Hgb (13.0-17.5) gm/dL Hct (39.0-53.0) % MCV (80.0-100.0) fL MCH (25.0-35.0) pg RDW (11.5-15.5) % Plt Count (150-450) k/uL Lymphocytes # (1.0-4.8) k/uL Macrocytosis Sodium (137-145) mmol/L Potassium 3.1 L (3.5-5.1) mmol/L Chloride (98-107) mmol/L BUN (9-20) mg/dL Creatinine (0.66-1.25) mg/dL Glucose (74-99) mg/dL POC Glucose (mg/dL) 213 H 258 H (70-110) mg/dL Calcium (8.4-10.2) mg/dL Crossmatch 07/14/23 07/14/23 07/14/23 Range/Units 05:48 10:45 10:45 WBC 2.0 L (3.8-10.6) k/uL RBC 2.19 L (4.30-5.90) m/uL Hgb 7.7 L (13.0-17.5) gm/dL Hct 22.7 L (39.0-53.0) % MCV 104.0 H D (80.0-100.0) fL MCH 35.1 H (25.0-35.0) pg RDW 21.4 H (11.5-15.5) % Plt Count 30 L (150-450) k/uL Lymphocytes # 0.3 L (1.0-4.8) k/uL Macrocytosis Marked A Sodium 131 L (137-145) mmol/L Potassium 2.8 L (3.5-5.1) mmol/L Chloride (98-107) mmol/L BUN 64 H (9-20) mg/dL Creatinine 2.23 H (0.66-1.25) mg/dL Glucose 123 H (74-99) mg/dL POC Glucose (mg/dL) 158 H (70-110) mg/dL Calcium 7.1 L (8.4-10.2) mg/dL Crossmatch Assessment and Plan Assessment: 1. Acute kidney injury secondary to ATN secondary to hypotension, anemia. Likely underlying component of hepatorenal syndrome. No proteinuria on UA. Creatinine 2.2 today. Creatinine 0.7 dated February 06, 2023. 2. Volume overload. 3. Moderate mitral regurgitation. 4. Hypotension. Cortisol level on the lower side. On hydrocortisone. Consider endocrinology evaluation outpatient for workup for adrenal insufficiency. 5. Hypervolemic hyponatremia. 6. Pancytopenia being followed by hematology. Iron replete. 7. Hyperkalemia secondary to acute kidney injury and acidosis. Questionable adrenal insufficiency. Improved. 8. Urinary retention. Has Charles catheter. 9. Liver cirrhosis. 10. Acute blood loss anemia status post packed RBCs 11. Hypokalemia secondary to diuresis Plan: Continue with Lasix drip Replace potassium Repeat labs
[2023-07-14 11:34] LABS: Glucose,Whole Blood 138 mg/dL (70-110)
[2023-07-14] MEDS: LIDOCAINE 5% PATCH TOPICAL SCH (11:45)
[2023-07-14] MEDS: FUROSEMIDE 100 MG in SODIUM CHLORIDE 0.9% 90 ML IV SCH ×4 (13:20→21:00)
[2023-07-14] MEDS: POTASSIUM CHLORIDE ER 20 MEQ TAB.ER PO SCH ×4 (13:23→21:00)
[2023-07-14] MEDS: FAMOTIDINE 20 MG TAB PO SCH (13:42)
[2023-07-14] MEDS: HYDROCORTISONE 20 MG TAB PO SCH (13:42)
[2023-07-14] MEDS: METOPROLOL TARTRATE 12.5 MG TAB PO SCH ×2 (13:42→21:00)
[2023-07-14] MEDS: FOLIC ACID 1 MG TAB PO SCH (13:42)
[2023-07-14] MEDS: CHOLECALCIFEROL 25 MCG (1000 IU) TABLET PO SCH (13:42)
[2023-07-14] MEDS: THIAMINE 100 MG TAB PO SCH (13:42)
--- NOTE | 2023-07-14 14:37 | P.PN ---
Subjective Progress Note Date: 07/14/23 This is a 67 year old male who is admitted for acute COPD exacerbation, NSTEMI. Patient also has evidence of compression fracture and has TLSO brace. Patient continues with significant weakness. Noted to have increased lower extremity edema and was started on IV lasix Q12. PT/OT will be ordered. Patient continues to feel short of breath mostly with exertion. He is also being treated for a suspected adrenal insufficiency and remains on IV solucortef 100 mg Q8h. 07/09/2023 Patient is evaluated today sitting up at the edge of the bed. Continues on IV lasix, lower extremity edema has improved some would recommend to eduardo wrap the legs or use compression stockings and pt to elevate when sitting. No shortness of breath and remains on room air. Patient did have a fall overnight states he did not hit head but it was unwitnessed did have a drop in hemoglobin. Brain CT will be ordered to rule out bleed. Sodium 133 today, creatinine up to 1.83. 07/10/2023 Patient is evaluated today sitting up in the chair. He was moved to the medical surgical unit from stepdown yesterday. He continues on IV Lasix 40 mg every 12 hours. Nephrology is following closely. His creatinine today is up to 2.22. Additionally his hemoglobin is again 7.0.1 Unit of packed red blood cells has been ordered. Patient is also on midodrine 10 mg 3 times a day. Blood pressure is marginal with a low of 78/54 this AM. Amlodipine and lisinopril are being held. 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 There is partial opacification of the bilateral mastoid air cells correlate for mastoiditis. There is moderate right maxillary sinus disease. He reports his headache has improved. He denies any prior history of stroke. Continues to report significant pain in the right hip. Patient remains an abnormal cosyntropin 0.5 every 8 hours and lidocaine patches also added. Orthopedics recommended conservative management for the muscular skeletal pain. 07/11/2023 Patient is evaluated today resting in bed. He continues to report significant pain to the right hip will re xray and need to discuss with orthopedics. May need CT scan. Patient continues with significant bilateral lower extremity edema and continues on IV lasix Q12, nephrology recommending lasix gtt. Patients hemoglobin 6.8 today and will receive 1 unit of blood. He is having some abdominal pain however when asked he points to his right groin having some deferred pain there. He has no obvious bruising over the right hip or in the right groin. Sodium is 131. Creatinine worsening at 2.50. 07/12/2023 Patient is evaluated today sitting up in the chair. His hemoglobin up to 8.3 today, received a dose of DDAVP and 1 unit PRBC's yesterday. No signs of acute bleeding. He has been started on lasix gtt at 10 mls/hr. 750 mls of urine output documented in the last 24 hours. Patient should have legs EDUARDO wrapped. hgb 8.3, sodium 129, BUN 67, creatinine 2.49, magnesium 1.8. Blood pressure increased up to 134/77 today. 07/13/2023 Patient is evaluated today sitting up in bed. He continues to report feeling fatigued and frustrated. He remains on IV Lasix drip running at 10 miles per hour. He is currently undergoing a 24-hour urine collection. No signs of active bleeding noted he is status post 2 units total of PRBCs. Lab work is not available for today is currently pending at this time. remained afebrile blood pressure is stable today at 119/68. He continues with significant lower extremity edema in his bilateral lower extremities are currently Eduardo wrapped. He has had marginal urine output does seem to have been picked up in the last 24 hours documented at 2.3 L over the last 24 hours. Nephrology is considering hemodialysis. 07/14/2023 Patient is evaluated today. He is refusing all medications and lab draw this AM. Discussed with patient if he wants to continue with treatment or if he would like to be made comfortable at this point. He states he will go back on the lasix gtt in a little bit. Discussed importance of the lab draw and also venous doppler. Patient has agreed but wants to do the doppler later today. He remains on mechanical DVT prophylaxis his platelet count is less than 50,000 and hematology recommending to hold off on pharmacological DVT prophylaxis unless platelets are above 50,000. He was continued on lasix gtt overnight, urine output seems to be increasing. He has completed a 24 hour urine collection. He remains on oral cortef for suspected adrenal insufficiency. On room air. Potassium 2.8 today. Review of Systems Constitutional: Reports fatigue, denied any fever. Cardio vascular: denied any chest pain, palpitations Gastrointestinal: denied any nausea, vomiting, diarrhea Pulmonary: Denied any shortness of breath cough Neurologic denied any new focal deficits Reports weakness. All inpatient medications were reviewed and appropriate changes in these medications as dictated in the interval history and assessment and plan. PHYSICAL EXAMINATION: GENERAL: The patient is alert and oriented x3, not in any acute distress. Well developed, well nourished. Pale. Fatigued. HEENT: Pupils are round and equally reacting to light. EOMI. No scleral icterus. No conjunctival pallor. Normocephalic, atraumatic. No pharyngeal erythema. No thyromegaly. CARDIOVASCULAR: S1 and S2 present. No murmurs, rubs, or gallops. PULMONARY: Chest is clear to auscultation, no wheezing or crackles. ABDOMEN: Soft, nontender, nondistended, normoactive bowel sounds. No palpable organomegaly. MUSCULOSKELETAL: No joint swelling or deformity. EXTREMITIES: No cyanosis, clubbing, 2+ lower extremity edema NEUROLOGICAL: Significant generalized weakness. SKIN: No rashes. Assessment -Status post fall with compression fracture of L3 spine has LSO brace at home does not like wearing. -Elevated troponin type II MA -COPD exacerbation with acute hypoxic respiratory failure currently weaned to room air -Acute hyponatremia -Volume overload -Ascites and concern of liver cirrhosis on abdominal pelvis CT. -Suspected adrenal insufficiency maintained on IV solucortef -Hyperkalemia improved not hypokalemic due to diuresis -Acute kidney injury secondary to ATN improved with LR and then worsened -Metabolic acidosis improved -Transient hypotension -Bicytopenia macrocytic hemoglobin 6.8 patient to receive 1 unit of PRBC today. GI prophylaxis DVT prophylaxis mechanical deferred due to the thrombocytopenia Full Code Plan -Physical therapy has been consulted for evaluation -Heparin was discontinued secondary to anemia, OK for DVT prophylaxis per hematology if platelet count above 50,000. Platelet count is low today. -Needs GI follow up outpatient for the liver cirrhosis, abdominal ultrasound showing small ascites. -Transitioned to oral hydrocortisone and will need to f/u with endocrinology outpatient. -Patient will be started on lasix gtt and continues has IDC in place nephrology following. Patient is undergoing a 24-hour urine collection and is being considered for hemodialysis. His urine output has remained marginal however seems to be improving. He did refuse his lasix gtt earlier today. -Replace potassium -Venous doppler ordered -Follow up labs in AM The impression and plan of care has been dictated by Nurse Starla Head ctitioner as directed. Dr. Willard MD I have performed a history and physical examination and medical decision making of this patient, discussed the same with the dictator, and agree with the dictat ors assessment and plan as written, documented as a scribe. Based on total visit time, I have performed more than 50% of this visit. Objective - Vital Signs Vital signs: Vital Signs Temp 97.5 F L 07/14/23 12:00 Pulse 78 07/14/23 12:11 Resp 18 07/14/23 12:00 BP 102/67 07/14/23 12:00 Pulse Ox 90 L 07/14/23 12:00 FiO2 21 07/05/23 09:14 Intake & Output 07/13/23 07/14/23 07/14/23 18:59 06:59 18:59 Intake Total 767.333 393 Output Total 1250 900 Balance -482.667 -507 Weight 93.8 kg Intake: Intake, IV Titration 89.333 100 Amount Furosemide 100 mg In 89.333 100 Sodium Chloride 0.9% 90 ml @ 10 MG/HR 10 mls/hr IV .Q10H [facility] Rx#: [id number] Oral 678 Blood Product 0 293 Rc Pheresis As-3 Unit 0 293 [id number] Output: Urine 1250 900 Other: Voiding Method Indwelling Catheter Indwelling Catheter - Labs CBC & Chem 7: 07/14/23 10:45 07/14/23 10:45 Labs: Abnormal Lab Results - Last 24 Hours (Table) 07/11/23 07/13/23 07/13/23 Range/Units 09:06 16:20 20:14 WBC (3.8-10.6) k/uL RBC (4.30-5.90) m/uL Hgb (13.0-17.5) gm/dL Hct (39.0-53.0) % MCV (80.0-100.0) fL MCH (25.0-35.0) pg RDW (11.5-15.5) % Plt Count (150-450) k/uL Lymphocytes # (1.0-4.8) k/uL Macrocytosis Sodium (137-145) mmol/L Potassium (3.5-5.1) mmol/L BUN (9-20) mg/dL Creatinine (0.66-1.25) mg/dL Glucose (74-99) mg/dL POC Glucose (mg/dL) 213 H 258 H (70-110) mg/dL Calcium (8.4-10.2) mg/dL Crossmatch See Detail 07/13/23 07/14/23 07/14/23 Range/Units 22:57 05:48 10:45 WBC 2.0 L (3.8-10.6) k/uL RBC 2.19 L (4.30-5.90) m/uL Hgb 7.7 L (13.0-17.5) gm/dL Hct 22.7 L (39.0-53.0) % MCV 104.0 H D (80.0-100.0) fL MCH 35.1 H (25.0-35.0) pg RDW 21.4 H (11.5-15.5) % Plt Count 30 L (150-450) k/uL Lymphocytes # 0.3 L (1.0-4.8) k/uL Macrocytosis Marked A Sodium (137-145) mmol/L Potassium 3.1 L (3.5-5.1) mmol/L BUN (9-20) mg/dL Creatinine (0.66-1.25) mg/dL Glucose (74-99) mg/dL POC Glucose (mg/dL) 158 H (70-110) mg/dL Calcium (8.4-10.2) mg/dL Crossmatch 07/14/23 07/14/23 Range/Units 10:45 11:32 WBC (3.8-10.6) k/uL RBC (4.30-5.90) m/uL Hgb (13.0-17.5) gm/dL Hct (39.0-53.0) % MCV (80.0-100.0) fL MCH (25.0-35.0) pg RDW (11.5-15.5) % Plt Count (150-450) k/uL Lymphocytes # (1.0-4.8) k/uL Macrocytosis Sodium 131 L (137-145) mmol/L Potassium 2.8 L (3.5-5.1) mmol/L BUN 64 H (9-20) mg/dL Creatinine 2.23 H (0.66-1.25) mg/dL Glucose 123 H (74-99) mg/dL POC Glucose (mg/dL) 138 H (70-110) mg/dL Calcium 7.1 L (8.4-10.2) mg/dL Crossmatch Assessment and Plan Time with Patient: Less than 30
--- NOTE | 2023-07-14 15:17 | US ---
EXAMINATION TYPE: US venous doppler duplex LE DATE OF EXAM: 07/14/2023 2:54 PM COMPARISON: Prev Right leg only CLINICAL INDICATION: Male, 63 years old with history of edema; Edema SIDE PERFORMED: Bilateral TECHNIQUE: The lower extremity deep venous system is examined utilizing real time linear array sonog sara with graded compression, doppler sonography and color-flow sonography. VESSELS IMAGED: Common Femoral Vein Deep Femoral Vein Greater Saphenous Vein * Femoral Vein Popliteal Vein Small Saphenous Vein * Proximal Calf Veins (* superficial vessels) Right Leg: Very limited exam- pt lying LLD in position refusing to move to perform exam- only right popliteal veins and proximal calf veins visualized and appear negative for DVT Left Leg: Left EIV, GSV, Deep Fem, and Distal femoral veins not visualized due to pt position and ex tensive soft tissue edema Left CFV, proximal fem, mid fem, popliteal veins, and proximal calf veins appear negative for DVT IMPRESSION: Marked lower extremity edema and patient condition severely limits the study. Within the visualized portions of the deep venous systems, there is no evidence of DVT.
[2023-07-14 16:24] LABS: Glucose,Whole Blood 202 mg/dL (70-110)
[2023-07-14 20:09] LABS: Glucose,Whole Blood 108 mg/dL (70-110)
[2023-07-14] MEDS: HYDROCORTISONE 10 MG TAB PO SCH (21:00)
[2023-07-15] MEDS: HYDROcodone/APAP 7.5-325MG 1 EACH TAB PO PRN ×3 (03:02→17:23)
[2023-07-15 06:02] LABS: Glucose,Whole Blood 169 mg/dL (70-110)
[2023-07-15] MEDS: MIDODRINE 5 MG TAB PO SCH ×3 (06:34→17:23)
[2023-07-15] MEDS: INSULIN ASPART (NovoLOG) 100 UNIT/ML VIAL SQ SCH ×4 (06:34→20:58)
[2023-07-15] MEDS: FUROSEMIDE 100 MG in SODIUM CHLORIDE 0.9% 90 ML IV SCH ×2 (06:34→15:11)
[2023-07-15] MEDS: traMADol 50 MG TAB PO PRN ×3 (06:50→21:03)
[2023-07-15] MEDS: METOPROLOL TARTRATE 12.5 MG TAB PO SCH ×2 (07:43→21:03)
[2023-07-15] MEDS: HYDROCORTISONE 20 MG TAB PO SCH (07:43)
[2023-07-15] MEDS: FAMOTIDINE 20 MG TAB PO SCH (07:43)
[2023-07-15] MEDS: CHOLECALCIFEROL 25 MCG (1000 IU) TABLET PO SCH (07:43)
[2023-07-15] MEDS: THIAMINE 100 MG TAB PO SCH (07:43)
[2023-07-15] MEDS: POTASSIUM CHLORIDE ER 20 MEQ TAB.ER PO SCH ×2 (07:43→21:04)
[2023-07-15] MEDS: LIDOCAINE 5% PATCH TOPICAL SCH (07:43)
[2023-07-15] MEDS: FOLIC ACID 1 MG TAB PO SCH (07:43)
[2023-07-15] MEDS: SYMBICORT 160-4.5 MCG INHALER INHALATION SCH ×2 (08:06→20:39)
[2023-07-15] MEDS: IPRATROPIUM-ALBUTEROL 3 ML NEB INHALATION SCH ×4 (08:06→20:39)
[2023-07-15 08:59] LABS: African American GFR (CKD) 39 (>60 ml/min/1.73 sqM); Anion Gap 10 mmol/L; Blood Urea Nitrogen 60 mg/dL (9-20); Calcium 7.3 mg/dL (8.4-10.2); Carbon Dioxide 25 mmol/L (22-30); Chloride 98 mmol/L (98-107); Glucose 114 mg/dL (74-99); Non-African American GFR(CKD) 33 (>60 ml/min/1.73 sqM); Potassium 3.4 mmol/L (3.5-5.1); Sodium 133 mmol/L (137-145)
[2023-07-15] MEDS ORDERED: POTASSIUM CHLORIDE ER 20 MEQ TAB.ER PO SCH (09:00)
[2023-07-15 11:25] LABS: Anisocytosis Moderate; Basophils % (A) 0 %; Eosinophils % (A) 0 %; HCT 27.9 % (39.0-53.0); Lymphocytes # (A) 0.3 k/uL (1.0-4.8); Lymphocytes % (A) 7 %; MCH 35.5 pg (25.0-35.0); MCHC 33.9 g/dL (31.0-37.0); MCV 104.7 fL (80.0-100.0); Macrocytosis Marked; Mean Platelet Volume 11.8; Monocytes # (A) 0.2 k/uL (0-1.0); Monocytes % (A) 5 %; Neutrophils # (A) 3.8 k/uL (1.3-7.7); Neutrophils % (A) 87 %; Platelet Count 27 k/uL (150-450); RBC 2.66 m/uL (4.30-5.90); RDW 21.8 % (11.5-15.5); WBC 4.4 k/uL (3.8-10.6)
--- NOTE | 2023-07-15 11:29 | P.PN ---
Subjective Patient is seen for follow-up for acute kidney injury. Currently maintained on Lasix drip. Patient has indwelling Charles catheter. 24 hour urine documented at 2.3 L. Serum creatinine at 2.0 today. No significant complaints. Objective - Vital Signs Vital signs: Vital Signs Temp 97.9 F 07/15/23 11:07 Pulse 73 07/15/23 11:07 Resp 18 07/15/23 11:07 BP 94/60 07/15/23 11:07 Pulse Ox 90 L 07/15/23 11:07 FiO2 21 07/05/23 09:14 Intake & Output 07/14/23 07/15/23 07/15/23 18:59 06:59 18:59 Intake Total 840 736.025 6624 Output Total 1000 1350 475 Balance -160 -1177.666 785 Weight 92.9 kg Intake: Intake, IV Titration 172.334 Amount Furosemide 100 mg In 172.334 Sodium Chloride 0.9% 90 ml @ 10 MG/HR 10 mls/hr IV .Q10H [facility] Rx#: [id number] Oral 840 1260 Output: Urine 1000 1350 475 Other: Voiding Method Indwelling Catheter Indwelling Catheter Indwelling Catheter - Exam Patient is awake comfortable not in any acute distress Alert oriented 3 Examination of the heart S1 and S2 Examination of the lungs bilateral breath sounds are heard no crackles or wheezing is heard Abdomen is soft distended nontender Examination of lower extremities shows 2+ edema bilaterally , legs are wrapped [employer] exam grossly intact - Labs CBC & Chem 7: 07/14/23 10:45 07/15/23 06:45 Labs: Abnormal Lab Results - Last 24 Hours (Table) 07/14/23 07/14/23 07/15/23 Range/Units 11:32 16:22 06:00 Sodium (137-145) mmol/L Potassium (3.5-5.1) mmol/L BUN (9-20) mg/dL Creatinine (0.66-1.25) mg/dL Glucose (74-99) mg/dL POC Glucose (mg/dL) 138 H 202 H 169 H (70-110) mg/dL Calcium (8.4-10.2) mg/dL 07/15/23 Range/Units 06:45 Sodium 133 L (137-145) mmol/L Potassium 3.4 L (3.5-5.1) mmol/L BUN 60 H (9-20) mg/dL Creatinine 2.08 H (0.66-1.25) mg/dL Glucose 114 H (74-99) mg/dL POC Glucose (mg/dL) (70-110) mg/dL Calcium 7.3 L (8.4-10.2) mg/dL Assessment and Plan Assessment: 1. Acute kidney injury secondary to ATN secondary to hypotension, anemia. Likely underlying component of hepatorenal syndrome. No proteinuria on UA. Creatinine 2.0 today. Creatinine 0.7 dated February 06, 2023. 2. Volume overload. 3. Moderate mitral regurgitation. 4. Hypotension. Cortisol level on the lower side. On hydrocortisone. Consider endocrinology evaluation outpatient for workup for adrenal insufficiency. 5. Hypervolemic hyponatremia. 6. Pancytopenia being followed by hematology. Iron replete. 7. Hyperkalemia secondary to acute kidney injury and acidosis. Questionable adrenal insufficiency. Improved. 8. Urinary retention. Has Charles catheter. 9. Liver cirrhosis. 10. Acute blood loss anemia status post packed RBCs 11. Hypokalemia secondary to diuresis Plan: Continue with Lasix drip Replace potassium Repeat labs
[2023-07-15 11:30] LABS: HGB 9.5 gm/dL (13.0-17.5)
[2023-07-15 11:37] LABS: Glucose,Whole Blood 155 mg/dL (70-110)
--- NOTE | 2023-07-15 13:51 | P.PN ---
Subjective Progress Note Date: 07/15/23 COPD, shortness of breath, non-ST segment elevation myocardial infarction. On today's evaluation of 07/14/2023, the patient is being seen for a follow-up. The patient is calm and comfortable. The patient is currently on room air oxygen. No significant respiratory distress. Continues to have significant amount of edema lower extremity is bilaterally and the patient remains on a Lasix drip. Charles catheter is in place and the patient is a negative fluid balance. Labs from today shows a WBC count of 4.4, hematocrit is at 27.9, potassium level is at 3.4, BUN is at 60 with a creatinine of 2.08. Noted the renal function continues to improve. Potassium level needs to be replaced. The the automatic trimming sewer on the case. The patient remains on Symbicort as maintenance, DuoNeb updrafts, and the patient is also on Lasix drip which is running at 10 mg an hour. Doppler of the lower extremities showed no evidence of any DVTs. Objective - Vital Signs Vital signs: Vital Signs Temp 98.1 F 07/15/23 08:00 Pulse 82 07/15/23 08:00 Resp 20 07/15/23 08:00 BP 122/72 07/15/23 08:00 Pulse Ox 97 07/15/23 08:00 FiO2 21 07/05/23 09:14 Intake & Output 07/14/23 07/15/23 07/15/23 18:59 06:59 18:59 Intake Total 840 172.334 720 Output Total 1000 1350 175 Balance -160 -1177.666 545 Weight 92.9 kg Intake: Intake, IV Titration 172.334 Amount Furosemide 100 mg In 172.334 Sodium Chloride 0.9% 90 ml @ 10 MG/HR 10 mls/hr IV .Q10H [facility] Rx#: [id number] Oral 840 720 Output: Urine 1000 1350 175 Other: Voiding Method Indwelling Catheter Indwelling Catheter Indwelling Catheter - Exam No acute distress, oriented 3. The patient's currently on room air. No respiratory distress. HEENT examination is grossly unremarkable. Mucous membranes are moist. No oral lesions. Neck supple. Full range of motion. No adenopathy thyromegaly or neck vein distention. Cardiovascular examination reveals regular rhythm rate. S1-S2 normal. No S3 or S4. No discernible murmur noted. Heart rate 91 bpm. Lungs reveal mostly clear breath sounds. Scattered rhonchi. No wheezes or c rackles. Room air saturation is 93 %. Abdomen soft bowel sounds are heard. No masses or tenderness. Extremities are intact. No cyanosis or clubbing. The patient has significant pitting edema in the lower extremities. Skin is without rash. Multiple areas of ecchymoses. Neurologic examination is brief but nonfocal. - Labs CBC & Chem 7: 07/15/23 06:45 07/15/23 06:45 Labs: Abnormal Lab Results - Last 24 Hours (Table) 07/14/23 07/14/23 07/14/23 Range/Units 10:45 10:45 11:32 WBC 2.0 L (3.8-10.6) k/uL RBC 2.19 L (4.30-5.90) m/uL Hgb 7.7 L (13.0-17.5) gm/dL Hct 22.7 L (39.0-53.0) % MCV 104.0 H D (80.0-100.0) fL MCH 35.1 H (25.0-35.0) pg RDW 21.4 H (11.5-15.5) % Plt Count 30 L (150-450) k/uL Lymphocytes # 0.3 L (1.0-4.8) k/uL Macrocytosis Marked A Sodium 131 L (137-145) mmol/L Potassium 2.8 L (3.5-5.1) mmol/L BUN 64 H (9-20) mg/dL Creatinine 2.23 H (0.66-1.25) mg/dL Glucose 123 H (74-99) mg/dL POC Glucose (mg/dL) 138 H (70-110) mg/dL Calcium 7.1 L (8.4-10.2) mg/dL 07/14/23 07/15/23 07/15/23 Range/Units 16:22 06:00 06:45 WBC (3.8-10.6) k/uL RBC (4.30-5.90) m/uL Hgb (13.0-17.5) gm/dL Hct (39.0-53.0) % MCV (80.0-100.0) fL MCH (25.0-35.0) pg RDW (11.5-15.5) % Plt Count (150-450) k/uL Lymphocytes # (1.0-4.8) k/uL Macrocytosis Sodium 133 L (137-145) mmol/L Potassium 3.4 L (3.5-5.1) mmol/L BUN 60 H (9-20) mg/dL Creatinine 2.08 H (0.66-1.25) mg/dL Glucose 114 H (74-99) mg/dL POC Glucose (mg/dL) 202 H 169 H (70-110) mg/dL Calcium 7.3 L (8.4-10.2) mg/dL Assessment and Plan Plan: Acute hypoxemic respiratory failure secondary to COPD exacerbation, stable and the patient is currently on room air oxygen. Present LV function with moderate degree of mitral regurgitation Non-anion gap metabolic acidosis, recovered Acute kidney injury, The renal function is improving and the creatinine is down to 2.08 the patient remains on Lasix at 10 mg an hour. The patient is producing adequate urine output. The patient continues to have increased edema lower extremities bilaterally. There were done yesterday showed no evidence of any DVT in the lower extremities bilaterally. Macrocytic anemia. Pancytopenia. History of alcohol abuse. Diabetes mellitus. Subclinical hypothyroidism. Chronic and ongoing tobacco dependence. Chronic low back pain. Probable adrenal insufficiency. Plan: The plan is to continue the Lasix drip at 10 mg an hour Monitor fluid balance Monitor electrolytes and replace the potassium Continue bronchodilators Patient is on room air oxygen Rest of the medications were reviewed no other changes. Pulmonary standpoint. Confused to have signs of fluid overload Patient remains on stress dose hydrocortisone We'll continue to follow
--- NOTE | 2023-07-15 15:47 | P.PN ---
Subjective Progress Note Date: 07/15/23 Principal diagnosis: Bicytopenia In follow-up today patient has no new complaints, anasarca is improved, Dopplers of the bilateral lower extremities were limited but negative for DVT. She denies epistaxis, bleeding from the mouth, blood in the urine or the stool. Objective - Vital Signs Vital signs: Vital Signs Temp 97.7 F 07/15/23 15:34 Pulse 75 07/15/23 15:34 Resp 18 07/15/23 15:34 BP 129/72 07/15/23 15:34 Pulse Ox 92 L 07/15/23 15:34 FiO2 21 07/05/23 09:14 Intake & Output 07/14/23 07/15/23 07/15/23 18:59 06:59 18:59 Intake Total 840 798.303 5451.167 Output Total 1000 1350 775 Balance -160 -1177.666 751.167 Weight 92.9 kg Intake: Intake, IV Titration 172.334 86.167 Amount Furosemide 100 mg In 172.334 86.167 Sodium Chloride 0.9% 90 ml @ 10 MG/HR 10 mls/hr IV .[facility] Rx#: [id number] Oral 840 1440 Output: Urine 1000 1350 775 Other: Voiding Method Indwelling Catheter Indwelling Catheter Indwelling Catheter - Constitutional General appearance: Present: average body habitus, cooperative, no acute distress - EENT Eyes: Present: anicteric sclerae, EOMI ENT: Present: hearing grossly normal - Respiratory Details: Respirations even and unlabored at rest - Cardiovascular Details: Skin cool to the touch, dry - Peripheral edema leg Peripheral Edema: bilateral: 1+ - Integumentary Integumentary Comment(s): Some scattered petechiae and ecchymoses Integumentary: Present: pale - Neurologic Neurologic: Present: CNII-XII intact (Grossly) - Musculoskeletal Musculoskeletal: Present: generalized weakness - Psychiatric Psychiatric: Present: A&O x's 3, appropriate affect - Labs CBC & Chem 7: 07/15/23 06:45 07/15/23 06:45 Labs: Abnormal Lab Results - Last 24 Hours (Table) 07/14/23 07/15/23 07/15/23 Range/Units 16:22 06:00 06:45 RBC 2.66 L (4.30-5.90) m/uL Hgb 9.5 L D (13.0-17.5) gm/dL Hct 27.9 L (39.0-53.0) % MCV 104.7 H (80.0-100.0) fL MCH 35.5 H (25.0-35.0) pg RDW 21.8 H (11.5-15.5) % Plt Count 27 L (150-450) k/uL Lymphocytes # 0.3 L (1.0-4.8) k/uL Macrocytosis Marked A Sodium (137-145) mmol/L Potassium (3.5-5.1) mmol/L BUN (9-20) mg/dL Creatinine (0.66-1.25) mg/dL Glucose (74-99) mg/dL POC Glucose (mg/dL) 202 H 169 H (70-110) mg/dL Calcium (8.4-10.2) mg/dL 07/15/23 07/15/23 Range/Units 06:45 11:36 RBC (4.30-5.90) m/uL Hgb (13.0-17.5) gm/dL Hct (39.0-53.0) % MCV (80.0-100.0) fL MCH (25.0-35.0) pg RDW (11.5-15.5) % Plt Count (150-450) k/uL Lymphocytes # (1.0-4.8) k/uL Macrocytosis Sodium 133 L (137-145) mmol/L Potassium 3.4 L (3.5-5.1) mmol/L BUN 60 H (9-20) mg/dL Creatinine 2.08 H (0.66-1.25) mg/dL Glucose 114 H (74-99) mg/dL POC Glucose (mg/dL) 155 H (70-110) mg/dL Calcium 7.3 L (8.4-10.2) mg/dL Assessment and Plan (1) Bicytopenia Current Visit: Yes Status: Acute Priority: High Code(s): D75.89 - OTHER SPECIFIED DISEASES OF BLOOD AND BLOOD-FORMING ORGANS SNOMED Code(s): 98300980 Plan: Bicytopenia, Anemia, thrombocytopenia -multifactorial-CKD, ETOH marrow damage exacerbated by acute infection/stress, chronic inflammation and nutritional deficiency -Low folic acid, supplement started -Copper levels low, recommended [id number] copper supplement for 30 days with a recheck by his PCP. Copper supplement is not for long-term use. -Hepatitis panel neg, HIV neg, no other deficiencies found. Occult ordered, Not collected yet -Recommend GI f/u (esophageal varices seen on CT, cirrhosis) -Monitor CBC -Patient has Received 3 units PRBCs, most recently on the and . Hemoglobin 9.4 today, would expect something in the 8 range. CBC in the a.m. Transfuse for hemoglobin less than 7 -Transfuse for platelets less than 10,000 unless patient is symptomatic. Patient has not required platelet transfusion. Platelets have not been above 50,000, patient is not on anticoagulation or antiplatelet therapy. Platelets are down to 27,000 today. -Erythropoietin level will be ordered, maybe patient is a candidate for SHERRI -We'll continue to follow up, further recommendations to follow.
[2023-07-15 16:51] LABS: Glucose,Whole Blood 116 mg/dL (70-110)
[2023-07-15 20:11] LABS: Glucose,Whole Blood 132 mg/dL (70-110)
[2023-07-15] MEDS: HYDROCORTISONE 10 MG TAB PO SCH (21:03)
--- NOTE | 2023-07-15 23:08 | PN ---
PROGRESS NOTE DATE OF SERVICE: 07/15/2023 SUBJECTIVE: This is a 63-year-old gentleman who was admitted with acute fall and compression fracture, also had COPD and acute renal failure, also the patient is on Lasix drip. The patient also has some volume overload. There is no history of any fever, rigors, or chills. PAST MEDICAL HISTORY: Reviewed. REVIEW OF SYSTEMS: A 14-point review is negative except as mentioned earlier. PHYSICAL EXAMINATION: VITAL SIGNS: Pulse is 82, blood pressure 120/70, and respirations 20. HEENT: Conjunctivae normal. CARDIOVASCULAR: S1, S2 muffled. RESPIRATIONS: Few scattered rhonchi. ABDOMEN: Soft. NERVOUS SYSTEM: No focal deficits. LABORATORY DATA: Creatinine 2.08, rest of the labs are noted. Chest x-ray not available. Venous Doppler, acute lower extremity edema. ASSESSMENT: 1. Status post fall and compression fracture of the L3 spine with LSO brace. 2. Chronic obstructive pulmonary disease acute exacerbation and acute hypoxic respiratory failure. 3. Possible CHF acute exacerbation. 4. Acute renal failure. 5. Moderate mitral regurgitation. 6. Pancytopenia. 7. History of EtOH. 8. Multiple complex medical issues. 9. CHF with acute on chronic systolic dysfunction. RECOMMENDATIONS: This 63-year-old gentleman presented with multiple complex medical issues, we will monitor the patient closely. I recommend to continue with Lasix drip. Cardiology is also following the patient. Continue rest of medications. Repeat labs. PT OT evaluation, possible ECF rehab. A 2D echo showed ejection fraction 50% to 55% with hypokinetic inferior septum. We will limit fluid intake as well and repeat labs, see orders for further details. Avoid nephrotoxic medications. Further recommendations to follow. MMODL / IJN: [id number] /
[2023-07-16] MEDS: HYDROcodone/APAP 7.5-325MG 1 EACH TAB PO PRN ×4 (00:44→22:51)
[2023-07-16] MEDS: FUROSEMIDE 100 MG in SODIUM CHLORIDE 0.9% 90 ML IV SCH ×3 (03:26→20:40)
[2023-07-16] MEDS: traMADol 50 MG TAB PO PRN ×2 (05:09→20:38)
[2023-07-16 05:59] LABS: Glucose,Whole Blood 126 mg/dL (70-110)
[2023-07-16] MEDS: INSULIN ASPART (NovoLOG) 100 UNIT/ML VIAL SQ SCH ×4 (06:28→20:38)
[2023-07-16] MEDS: MIDODRINE 5 MG TAB PO SCH ×5 (06:29→16:55)
[2023-07-16] MEDS: FOLIC ACID 1 MG TAB PO SCH (07:30)
[2023-07-16] MEDS: THIAMINE 100 MG TAB PO SCH (07:30)
[2023-07-16] MEDS: HYDROCORTISONE 20 MG TAB PO SCH (07:30)
[2023-07-16] MEDS: METOPROLOL TARTRATE 12.5 MG TAB PO SCH ×2 (07:30→20:38)
[2023-07-16] MEDS: POTASSIUM CHLORIDE ER 20 MEQ TAB.ER PO SCH ×4 (07:30→20:38)
[2023-07-16] MEDS: CHOLECALCIFEROL 25 MCG (1000 IU) TABLET PO SCH (07:30)
[2023-07-16] MEDS: FAMOTIDINE 20 MG TAB PO SCH (07:30)
[2023-07-16] MEDS: LIDOCAINE 5% PATCH TOPICAL SCH (07:31)
[2023-07-16 08:59] LABS: Anisocytosis Moderate; Basophils % (A) 0 %; Eosinophils % (A) 0 %; HGB 8.7 gm/dL (13.0-17.5); Lymphocytes # (A) 0.5 k/uL (1.0-4.8); Lymphocytes % (A) 8 %; MCH 35.6 pg (25.0-35.0); MCHC 33.6 g/dL (31.0-37.0); MCV 105.7 fL (80.0-100.0); Macrocytosis Marked; Mean Platelet Volume 10.8; Monocytes # (A) 0.2 k/uL (0-1.0); Monocytes % (A) 4 %; Neutrophils # (A) 5.5 k/uL (1.3-7.7); Neutrophils % (A) 87 %; RBC 2.46 m/uL (4.30-5.90); RDW 21.1 % (11.5-15.5); WBC 6.3 k/uL (3.8-10.6)
[2023-07-16 09:05] LABS: African American GFR (CKD) 44 (>60 ml/min/1.73 sqM); Anion Gap 10 mmol/L; Blood Urea Nitrogen 59 mg/dL (9-20); Calcium 7.2 mg/dL (8.4-10.2); Carbon Dioxide 25 mmol/L (22-30); Chloride 96 mmol/L (98-107); Glucose 92 mg/dL (74-99); Non-African American GFR(CKD) 38 (>60 ml/min/1.73 sqM); Potassium 3.1 mmol/L (3.5-5.1); Sodium 131 mmol/L (137-145)
[2023-07-16] MEDS ORDERED: Potassium Replacement Protocol 1 EACH MISC MISCELLANE PRN (09:11)
[2023-07-16] MEDS: SYMBICORT 160-4.5 MCG INHALER INHALATION SCH ×2 (09:19→20:35)
[2023-07-16] MEDS: IPRATROPIUM-ALBUTEROL 3 ML NEB INHALATION SCH ×4 (09:19→20:35)
[2023-07-16 09:36] LABS: Platelet Count 45 k/uL (150-450)
[2023-07-16] MEDS: NYSTATIN 100,000 UNIT/GM POWD 15 GM TOPICAL SCH ×2 (09:45→20:39)
--- NOTE | 2023-07-16 11:07 | P.PN ---
Subjective Patient is seen for follow-up for acute kidney injury. Currently maintained on Lasix drip for severe volume overload. Patient has indwelling Charles catheter. 24 hour urine documented at 1.7 L. Serum creatinine decreased to 1.8 today. No significant complaints. Objective - Vital Signs Vital signs: Vital Signs Temp 97.6 F 07/16/23 08:00 Pulse 70 07/16/23 08:00 Resp 20 07/16/23 08:00 BP 121/79 07/16/23 08:00 Pulse Ox 95 07/16/23 08:00 FiO2 21 07/05/23 09:14 Intake & Output 07/15/23 07/16/23 07/16/23 18:59 06:59 18:59 Intake Total 1706.167 100 303.333 Output Total 775 1000 400 Balance 931.167 -900 -96.667 Weight 91.8 kg Intake: Intake, IV Titration 86.167 100 63.333 Amount Furosemide 100 mg In 86.167 100 63.333 Sodium Chloride 0.9% 90 ml @ 10 MG/HR 10 mls/hr IV .Q10H [facility] Rx#: [id number] Oral 1620 240 Output: Urine 775 1000 400 Other: Voiding Method Indwelling Catheter Indwelling Catheter Indwelling Catheter - Exam Patient is awake comfortable not in any acute distress Alert oriented 3 Examination of the heart S1 and S2 Examination of the lungs bilateral breath sounds are heard no crackles or wheezing is heard Abdomen is soft distended nontender Examination of lower extremities shows 2+ edema bilaterally , legs are wrapped YARD MANAGER exam grossly intact - Labs CBC & Chem 7: 07/16/23 06:18 07/16/23 06:18 Labs: Abnormal Lab Results - Last 24 Hours (Table) 07/15/23 07/15/23 07/15/23 Range/Units 06:45 11:36 16:49 RBC 2.66 L (4.30-5.90) m/uL Hgb 9.5 L D (13.0-17.5) gm/dL Hct 27.9 L (39.0-53.0) % MCV 104.7 H (80.0-100.0) fL MCH 35.5 H (25.0-35.0) pg RDW 21.8 H (11.5-15.5) % Plt Count 27 L (150-450) k/uL Lymphocytes # 0.3 L (1.0-4.8) k/uL Macrocytosis Marked A Sodium (137-145) mmol/L Potassium (3.5-5.1) mmol/L Chloride (98-107) mmol/L BUN (9-20) mg/dL Creatinine (0.66-1.25) mg/dL POC Glucose (mg/dL) 155 H 116 H (70-110) mg/dL Calcium (8.4-10.2) mg/dL 07/15/23 07/16/23 07/16/23 Range/Units 20:09 05:58 06:18 RBC 2.46 L (4.30-5.90) m/uL Hgb 8.7 L (13.0-17.5) gm/dL Hct 26.0 L (39.0-53.0) % MCV 105.7 H (80.0-100.0) fL MCH 35.6 H (25.0-35.0) pg RDW 21.1 H (11.5-15.5) % Plt Count 45 L D (150-450) k/uL Lymphocytes # 0.5 L (1.0-4.8) k/uL Macrocytosis Marked A Sodium (137-145) mmol/L Potassium (3.5-5.1) mmol/L Chloride (98-107) mmol/L BUN (9-20) mg/dL Creatinine (0.66-1.25) mg/dL POC Glucose (mg/dL) 132 H 126 H (70-110) mg/dL Calcium (8.4-10.2) mg/dL 07/16/23 Range/Units 06:18 RBC (4.30-5.90) m/uL Hgb (13.0-17.5) gm/dL Hct (39.0-53.0) % MCV (80.0-100.0) fL MCH (25.0-35.0) pg RDW (11.5-15.5) % Plt Count (150-450) k/uL Lymphocytes # (1.0-4.8) k/uL Macrocytosis Sodium 131 L (137-145) mmol/L Potassium 3.1 L (3.5-5.1) mmol/L Chloride 96 L (98-107) mmol/L BUN 59 H (9-20) mg/dL Creatinine 1.88 H (0.66-1.25) mg/dL POC Glucose (mg/dL) (70-110) mg/dL Calcium 7.2 L (8.4-10.2) mg/dL Assessment and Plan Assessment: 1. Acute kidney injury secondary to ATN secondary to hypotension, anemia. No proteinuria on UA. Creatinine 1.8 today. Creatinine 0.7 dated February 06, 2023. 2. Volume overload. 3. Moderate mitral regurgitation. 4. Hypotension. Cortisol level on the lower side. On hydrocortisone. Consider endocrinology evaluation outpatient for workup for adrenal insufficiency. 5. Hypervolemic hyponatremia. 6. Pancytopenia being followed by hematology. Iron replete. 7. Hyperkalemia secondary to acute kidney injury and acidosis. Questionable adrenal insufficiency. Improved. 8. Urinary retention. Has Charles catheter. 9. Liver cirrhosis. 10. Acute blood loss anemia status post packed RBCs 11. Hypokalemia secondary to diuresis Plan: Continue with Lasix drip Replace potassium Check magnesium Repeat labs
[2023-07-16 11:30] LABS: Glucose,Whole Blood 135 mg/dL (70-110)
[2023-07-16] MEDS ORDERED: Magnesium Replacement Protocol 1 EACH MISC MISCELLANE PRN (11:59)
--- NOTE | 2023-07-16 12:49 | P.PN ---
Subjective Progress Note Date: 07/16/23 COPD, shortness of breath, non-ST segment elevation myocardial infarction. On today's evaluation of 07/14/2023, the patient is being seen for a follow-up. The patient is calm and comfortable. The patient is currently on room air oxygen. No significant respiratory distress. Continues to have significant amount of edema lower extremity is bilaterally and the patient remains on a Lasix drip. Charles catheter is in place and the patient is a negative fluid balance. Labs from today shows a WBC count of 4.4, hematocrit is at 27.9, potassium level is at 3.4, BUN is at 60 with a creatinine of 2.08. Noted the renal function continues to improve. Potassium level needs to be replaced. The the double surface operator on the case. The patient remains on Symbicort as maintenance, DuoNeb updrafts, and the patient is also on Lasix drip which is running at 10 mg an hour. Doppler of the lower extremities showed no evidence of any DVTs. On today's evaluation of 07/16/2023, the patient doing well on a Lasix drip at 10 mg an hour with excellent urine output. There is ongoing improvement in the renal function and the lower extremity edema. BUN is at 59 with a creatinine of 1.8. Hemoglobin is stable at 8.7. No other new complaints otherwise for now. The patient is on room air oxygen. No fever. No chills. Hemodynamically stable. Objective - Vital Signs Vital signs: Vital Signs Temp 97.6 F 07/16/23 08:00 Pulse 70 07/16/23 08:00 Resp 20 07/16/23 08:00 BP 121/79 07/16/23 08:00 Pulse Ox 95 07/16/23 08:00 FiO2 21 07/05/23 09:14 Intake & Output 07/15/23 07/16/23 07/16/23 18:59 06:59 18:59 Intake Total 1706.167 100 303.333 Output Total 775 1000 400 Balance 931.167 -900 -96.667 Weight 91.8 kg Intake: Intake, IV Titration 86.167 100 63.333 Amount Furosemide 100 mg In 86.167 100 63.333 Sodium Chloride 0.9% 90 ml @ 10 MG/HR 10 mls/hr IV .Q10H [facility] Rx#: [id number] Oral 1620 240 Output: Urine 775 1000 400 Other: Voiding Method Indwelling Catheter Indwelling Catheter Indwelling Catheter - Exam No acute distress, oriented 3. The patient's currently on room air. No respiratory distress. HEENT examination is grossly unremarkable. Mucous membranes are moist. No oral lesions. Neck supple. Full range of motion. No adenopathy thyromegaly or neck vein distention. Cardiovascular examination reveals regular rhythm rate. S1-S2 normal. No S3 or S4. No discernible murmur noted. Heart rate 91 bpm. Lungs reveal mostly clear breath sounds. Scattered rhonchi. No wheezes or crackles. Room air saturation is 93 %. Abdomen soft bowel sounds are heard. No masses or tenderness. Extremities are intact. No cyanosis or clubbing. The patient has significant pitting edema in the lower extremities. Skin is without rash. Multiple areas of ecchymoses. Neurologic examination is brief but nonfocal. - Labs CBC & Chem 7: 07/16/23 06:18 07/16/23 06:18 Labs: Abnormal Lab Results - Last 24 Hours (Table) 07/15/23 07/15/23 07/15/23 Range/Units 06:45 11:36 16:49 RBC 2.66 L (4.30-5.90) m/uL Hgb 9.5 L D (13.0-17.5) gm/dL Hct 27.9 L (39.0-53.0) % MCV 104.7 H (80.0-100.0) fL MCH 35.5 H (25.0-35.0) pg RDW 21.8 H (11.5-15.5) % Plt Count 27 L (150-450) k/uL Lymphocytes # 0.3 L (1.0-4.8) k/uL Macrocytosis Marked A Sodium (137-145) mmol/L Potassium (3.5-5.1) mmol/L Chloride (98-107) mmol/L BUN (9-20) mg/dL Creatinine (0.66-1.25) mg/dL POC Glucose (mg/dL) 155 H 116 H (70-110) mg/dL Calcium (8.4-10.2) mg/dL 07/15/23 07/16/23 07/16/23 Range/Units 20:09 05:58 06:18 RBC 2.46 L (4.30-5.90) m/uL Hgb 8.7 L (13.0-17.5) gm/dL Hct 26.0 L (39.0-53.0) % MCV 105.7 H (80.0-100.0) fL MCH 35.6 H (25.0-35.0) pg RDW 21.1 H (11.5-15.5) % Plt Count 45 L D (150-450) k/uL Lymphocytes # 0.5 L (1.0-4.8) k/uL Macrocytosis Marked A Sodium (137-145) mmol/L Potassium (3.5-5.1) mmol/L Chloride (98-107) mmol/L BUN (9-20) mg/dL Creatinine (0.66-1.25) mg/dL POC Glucose (mg/dL) 132 H 126 H (70-110) mg/dL Calcium (8.4-10.2) mg/dL 07/16/23 Range/Units 06:18 RBC (4.30-5.90) m/uL Hgb (13.0-17.5) gm/dL Hct (39.0-53.0) % MCV (80.0-100.0) fL MCH (25.0-35.0) pg RDW (11.5-15.5) % Plt Count (150-450) k/uL Lymphocytes # (1.0-4.8) k/uL Macrocytosis Sodium 131 L (137-145) mmol/L Potassium 3.1 L (3.5-5.1) mmol/L Chloride 96 L (98-107) mmol/L BUN 59 H (9-20) mg/dL Creatinine 1.88 H (0.66-1.25) mg/dL POC Glucose (mg/dL) (70-110) mg/dL Calcium 7.2 L (8.4-10.2) mg/dL Assessment and Plan Plan: Acute hypoxemic respiratory failure secondary to COPD exacerbation, stable and the patient is currently on room air oxygen. Present LV function with moderate degree of mitral regurgitation Non-anion gap metabolic acidosis, recovered Acute kidney injury, The renal function is improving and the creatinine is down to 2.08 the patient remains on Lasix at 10 mg an hour. The patient is producing adequate urine output. The patient continues to have increased edema lower extremities bilaterally. There were done yesterday showed no evidence of any DVT in the lower extremities bilaterally. Macrocytic anemia. Pancytopenia. History of alcohol abuse. Diabetes mellitus. Subclinical hypothyroidism. Chronic and ongoing tobacco dependence. Chronic low back pain. Probable adrenal insufficiency. Plan: The plan is to continue the Lasix drip at 10 mg an hour for another 24 hours and achieve better control and the fluid balance Monitor fluid balance Monitor electrolytes and replace the potassium, the potassium is at 3.1 today and needs to be replaced with a creatinine of 1.8 Continue bronchodilators Patient is on room air oxygen Rest of the medications were reviewed no other changes. Pulmonary standpoint. Continues to have signs of fluid overload Patient has been switched to oral hydrocortisone We'll continue to follow
[2023-07-16] MEDS: MAGNESIUM SULFATE-D5W PMX 1 GM in DEXTROSE/WATER 1 100ML.BAG IVPB SCH ×2 (12:51→15:00)
--- NOTE | 2023-07-16 14:20 | PN ---
PROGRESS NOTE DATE OF SERVICE: 07/16/2023 SUBJECTIVE: This 63-year-old gentleman admitted with fall, compression fractures, and COPD also. The patient is on Lasix drip. The CHF is also a consideration. Multiple consultants are following the patient closely. The patient is generally weak and pale at this time. The patient also had multifactorial bicytopenia, anemia, and thrombocytopenia. PAST MEDICAL HISTORY: Reviewed. REVIEW OF SYSTEMS: A 14-point review is negative except as mentioned earlier. CURRENT MEDICATIONS: Reviewed include Symbicort. PHYSICAL EXAMINATION: VITAL SIGNS: Pulse is 70, blood pressure 120/70, respirations 20. HEENT: Conjunctivae normal. NECK: No jugular venous distention. CARDIOVASCULAR: S1, S2. RESPIRATIONS: Few scattered rhonchi. ABDOMEN: Soft. LEGS: No system. NEUROLOGIC: Nonfocal. LABS: Sodium 110, potassium 3.9, rest of the labs are noted. The most recent chest x-ray is not available. ASSESSMENT: 1. Status post fall and compression fracture of L3 spine with LSO brace. 2. Chronic obstructive pulmonary disease acute exacerbation, acute hypoxic respiratory failure. 3. Possible CHF acute exacerbation. 4. Bicytopenia, thrombocytopenia, multifactorial. 5. Acute renal failure. 6. Moderate mitral regurgitation. 7. Pancytopenia. 8. History of EtOH. 9. Multiple complex medical issues. 10.CHF with acute on chronic systolic dysfunction. 11.Gait dysfunction. 12.Full code. RECOMMENDATIONS: Recommended to continue current management, continue symptomatic treatment. PT OT evaluation, otherwise continue with monitoring the creatinine, bronchodilators, incentive spirometry, DVT prophylaxis. I would recommend PT OT evaluation, possible ECF rehab and will talk with brother and further recommendations to follow. Stat chest x-ray has been ordered. See orders for details. MMODL / IJN: [id number] /
--- NOTE | 2023-07-16 14:40 | P.PN ---
Subjective Progress Note Date: 07/16/23 Principal diagnosis: Bicytopenia In follow-up today patient is sitting up at the bedside by himself, he reports today that he feels good! Denies bleeding, fever, N,V, his lower extremity edema continues to slowly improve. Objective - Vital Signs Vital signs: Vital Signs Temp 97.8 F 07/16/23 11:21 Pulse 70 07/16/23 12:56 Resp 18 07/16/23 11:21 BP 95/52 07/16/23 11:21 Pulse Ox 92 L 07/16/23 11:21 FiO2 21 07/05/23 09:14 Intake & Output 07/15/23 07/16/23 07/16/23 18:59 06:59 18:59 Intake Total 1706.167 100 543.333 Output Total 775 1000 700 Balance 931.167 -900 -156.667 Weight 91.8 kg 91.8 kg Intake: Intake, IV Titration 86.167 100 63.333 Amount Furosemide 100 mg In 86.167 100 63.333 Sodium Chloride 0.9% 90 ml @ 10 MG/HR 10 mls/hr IV .Q10H [facility] Rx#: [id number] Oral 1620 480 Output: Urine 775 1000 700 Other: Voiding Method Indwelling Catheter Indwelling Catheter Indwelling Catheter - Constitutional Constitutional Comment(s): Patient looks significantly older than 63 years old, he is pale, muscle wasting noted. He is very frail looking General appearance: Present: cooperative, no acute distress - EENT Eyes: Present: anicteric sclerae, EOMI ENT: Present: hearing grossly normal - Respiratory Details: Respirations even and unlabored at rest - Integumentary Integumentary Comment(s): Pale, bruises on the arms from needle sticks, lower extremities are wrapped in Eduardo bandages - Neurologic Neurologic: Present: CNII-XII intact (Grossly) - Musculoskeletal Musculoskeletal: Present: generalized weakness - Psychiatric Psychiatric: Present: A&O x's 3, appropriate affect - Labs CBC & Chem 7: 07/16/23 06:18 07/16/23 06:18 Labs: Abnormal Lab Results - Last 24 Hours (Table) 07/15/23 07/15/23 07/15/23 Range/Units 06:45 16:49 20:09 RBC (4.30-5.90) m/uL Hgb 9.5 L D (13.0-17.5) gm/dL Hct (39.0-53.0) % MCV (80.0-100.0) fL MCH (25.0-35.0) pg RDW (11.5-15.5) % Plt Count (150-450) k/uL Lymphocytes # (1.0-4.8) k/uL Macrocytosis Sodium (137-145) mmol/L Potassium (3.5-5.1) mmol/L Chloride (98-107) mmol/L BUN (9-20) mg/dL Creatinine (0.66-1.25) mg/dL POC Glucose (mg/dL) 116 H 132 H (70-110) mg/dL Calcium (8.4-10.2) mg/dL Magnesium (1.6-2.3) mg/dL 07/16/23 07/16/23 07/16/23 Range/Units 05:58 06:18 06:18 RBC 2.46 L (4.30-5.90) m/uL Hgb 8.7 L (13.0-17.5) gm/dL Hct 26.0 L (39.0-53.0) % MCV 105.7 H (80.0-100.0) fL MCH 35.6 H (25.0-35.0) pg RDW 21.1 H (11.5-15.5) % Plt Count 45 L D (150-450) k/uL Lymphocytes # 0.5 L (1.0-4.8) k/uL Macrocytosis Marked A Sodium 131 L (137-145) mmol/L Potassium 3.1 L (3.5-5.1) mmol/L Chloride 96 L (98-107) mmol/L BUN 59 H (9-20) mg/dL Creatinine 1.88 H (0.66-1.25) mg/dL POC Glucose (mg/dL) 126 H (70-110) mg/dL Calcium 7.2 L (8.4-10.2) mg/dL Magnesium (1.6-2.3) mg/dL 07/16/23 07/16/23 Range/Units 11:18 11:26 RBC (4.30-5.90) m/uL Hgb (13.0-17.5) gm/dL Hct (39.0-53.0) % MCV (80.0-100.0) fL MCH (25.0-35.0) pg RDW (11.5-15.5) % Plt Count (150-450) k/uL Lymphocytes # (1.0-4.8) k/uL Macrocytosis Sodium (137-145) mmol/L Potassium (3.5-5.1) mmol/L Chloride (98-107) mmol/L BUN (9-20) mg/dL Creatinine (0.66-1.25) mg/dL POC Glucose (mg/dL) 135 H (70-110) mg/dL Calcium (8.4-10.2) mg/dL Magnesium 1.5 L (1.6-2.3) mg/dL Assessment and Plan (1) Bicytopenia Current Visit: Yes Status: Acute Priority: High Code(s): D75.89 - OTHER SPECIFIED DISEASES OF BLOOD AND BLOOD-FORMING ORGANS SNOMED Code(s): 03065630 Plan: Bicytopenia, Anemia, thrombocytopenia -multifactorial-CKD, ETOH marrow damage exacerbated by acute infection/stress, chronic inflammation and nutritional deficiency -Low folic acid, supplementation continues -Copper levels low, recommended [id number] copper supplement for 30 days with a recheck by his PCP. Copper supplement is not for long-term use. -Hepatitis panel neg, HIV neg, no other deficiencies found. Occult ordered, still not collected yet -Recommend GI f/u (esophageal varices seen on CT, cirrhosis) -Patient has Received 3 units PRBCs, most recently on the and . Hemoglobin 8.7 today, more consistent with expectation post transfusion. Cont to monitor CBC. -Transfuse for hemoglobin less than 7 -Transfuse for platelets less than 10,000 unless patient is symptomatic. Patient has not required platelet transfusion. Platelets have not been above 50,000, patient is not on anticoagulation or antiplatelet therapy. Platelets are up to 45,000 today. -Erythropoietin level will be ordered, maybe patient is a candidate for SHERRI -We'll continue to follow up, further recommendations to follow.
[2023-07-16 16:23] LABS: Glucose,Whole Blood 198 mg/dL (70-110)
[2023-07-16 19:56] LABS: Glucose,Whole Blood 158 mg/dL (70-110)
[2023-07-16] MEDS: HYDROCORTISONE 10 MG TAB PO SCH (20:38)
[2023-07-17] MEDS: HYDROcodone/APAP 7.5-325MG 1 EACH TAB PO PRN ×3 (04:41→17:01)
[2023-07-17 05:59] LABS: Glucose,Whole Blood 128 mg/dL (70-110)
[2023-07-17] MEDS: INSULIN ASPART (NovoLOG) 100 UNIT/ML VIAL SQ SCH ×3 (06:24→16:37)
[2023-07-17] MEDS: MIDODRINE 5 MG TAB PO SCH ×3 (06:28→17:00)
[2023-07-17] MEDS: FUROSEMIDE 100 MG in SODIUM CHLORIDE 0.9% 90 ML IV SCH ×2 (06:52→17:00)
[2023-07-17] MEDS: SYMBICORT 160-4.5 MCG INHALER INHALATION SCH ×2 (07:46→20:56)
[2023-07-17] MEDS: IPRATROPIUM-ALBUTEROL 3 ML NEB INHALATION SCH ×4 (07:46→20:56)
[2023-07-17] MEDS: FAMOTIDINE 20 MG TAB PO SCH (08:53)
[2023-07-17] MEDS: CHOLECALCIFEROL 25 MCG (1000 IU) TABLET PO SCH (08:53)
[2023-07-17] MEDS: LIDOCAINE 5% PATCH TOPICAL SCH (08:53)
[2023-07-17] MEDS: POTASSIUM CHLORIDE ER 20 MEQ TAB.ER PO SCH ×2 (08:54→22:18)
[2023-07-17] MEDS: FOLIC ACID 1 MG TAB PO SCH (08:54)
[2023-07-17] MEDS: THIAMINE 100 MG TAB PO SCH (08:54)
[2023-07-17] MEDS: METOPROLOL TARTRATE 12.5 MG TAB PO SCH ×2 (08:54→22:19)
[2023-07-17] MEDS: HYDROCORTISONE 20 MG TAB PO SCH (08:54)
[2023-07-17] MEDS: traMADol 50 MG TAB PO PRN ×3 (08:54→22:17)
[2023-07-17] MEDS: NYSTATIN 100,000 UNIT/GM POWD 15 GM TOPICAL SCH (08:54)
[2023-07-17 08:56] LABS: Anisocytosis Moderate; Basophils % (A) 0 %; Eosinophils % (A) 0 %; HGB 9.7 gm/dL (13.0-17.5); Lymphocytes # (A) 0.7 k/uL (1.0-4.8); Lymphocytes % (A) 9 %; MCHC 33.5 g/dL (31.0-37.0); MCV 107.2 fL (80.0-100.0); Macrocytosis Marked; Mean Platelet Volume 9.6; Monocytes # (A) 0.3 k/uL (0-1.0); Monocytes % (A) 4 %; Neutrophils # (A) 6.9 k/uL (1.3-7.7); Neutrophils % (A) 86 %; RBC 2.71 m/uL (4.30-5.90); RDW 21.2 % (11.5-15.5)
[2023-07-17 09:07] LABS: Platelet Count 52 k/uL (150-450)
[2023-07-17 09:23] LABS: African American GFR (CKD) 45 (>60 ml/min/1.73 sqM); Blood Urea Nitrogen 57 mg/dL (9-20); Calcium 7.2 mg/dL (8.4-10.2); Carbon Dioxide 27 mmol/L (22-30); Glucose 129 mg/dL (74-99); Magnesium 1.8 mg/dL (1.6-2.3); Non-African American GFR(CKD) 39 (>60 ml/min/1.73 sqM); Sodium 132 mmol/L (137-145)
[2023-07-17 10:54] LABS: Anion Gap 9 mmol/L; Chloride 96 mmol/L (98-107); Potassium 3.1 mmol/L (3.5-5.1)
[2023-07-17 11:20] LABS: Glucose,Whole Blood 147 mg/dL (70-110)
--- NOTE | 2023-07-17 14:02 | PN ---
PROGRESS NOTE DATE OF SERVICE: 07/17/2023 SUBJECTIVE: This is a 63-year-old gentleman who was admitted after a fall and compression fracture of L3 spine, also had multiple complex medical issues including fluid overload and COPD also. The patient is still on Lasix drip. No chest pain, no palpitation. PT/OT evaluation for possibly CP. OBJECTIVE: VITAL SIGNS: Pulse is 98, blood pressure 128/80, respirations 18. CHEST: Diffuse scattered rhonchi. CARDIOVASCULAR: S1, S2 sounds. ABDOMEN: Soft. LEGS: Edema. LABORATORY DATA: Noted. Sodium 130, potassium 3.1. ASSESSMENT: 1. Status post fall and compression fracture of L3 spine with LSO brace. 2. Chronic obstructive pulmonary disease acute exacerbation with acute hypoxic respiratory failure. 3. Possible CHF acute exacerbation. 4. Cytopenia, thrombocytopenia. 5. Multiple medical issues. RECOMMENDATIONS: Recommended to continue current medications, continue symptomatic treatment. Otherwise, repeat labs. Replace potassium and magnesium. We will increase the potassium dosing. Further recommendations to follow. MMODL / IJN: [id number] /
--- NOTE | 2023-07-17 14:15 | P.PN ---
Subjective Progress Note Date: 07/17/23 COPD, shortness of breath, non-ST segment elevation myocardial infarction. On today's evaluation of 07/14/2023, the patient is being seen for a follow-up. The patient is calm and comfortable. The patient is currently on room air oxygen. No significant respiratory distress. Continues to have significant amount of edema lower extremity is bilaterally and the patient remains on a Lasix drip. Charles catheter is in place and the patient is a negative fluid balance. Labs from today shows a WBC count of 4.4, hematocrit is at 27.9, potassium level is at 3.4, BUN is at 60 with a creatinine of 2.08. Noted the renal function continues to improve. Potassium level needs to be replaced. 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 The patient remains on Symbicort as maintenance, DuoNeb updrafts, and the patient is also on Lasix drip which is running at 10 mg an hour. Doppler of the lower extremities showed no evidence of any DVTs. On today's evaluation of 07/16/2023, the patient doing well on a Lasix drip at 10 mg an hour with excellent urine output. There is ongoing improvement in the renal function and the lower extremity edema. BUN is at 59 with a creatinine of 1.8. Hemoglobin is stable at 8.7. No other new complaints otherwise for now. The patient is on room air oxygen. No fever. No chills. Hemodynamically stable. On today's evaluation of 07/17/2023, the patient remains on a Lasix drip at 10 mg an hour. No new complaints. The fluid balance is negative the patient has no respiratory complaints. The patient's echoes at 8 with a hemoglobin of 9.7, BUN 67 with a creatinine of 1.8 and a sodium level is at 132. Continues to have edema lower extremities bilaterally. No fever. No chills. No chest pain. No pleurisy. No hemoptysis. Tolerating diet. Objective - Vital Signs Vital signs: Vital Signs Temp 98.1 F 07/17/23 08:00 Pulse 98 07/17/23 08:00 Resp 18 07/17/23 08:00 BP 128/83 07/17/23 08:00 Pulse Ox 95 07/17/23 08:00 FiO2 21 07/05/23 09:14 Intake & Output 07/16/23 07/17/23 07/17/23 18:59 06:59 18:59 Intake Total 1023.333 200 240 Output Total 925 1050 Balance 98.333 -850 240 Weight 91.8 kg 91 kg Intake: Intake, IV Titration 63.333 200 Amount Furosemide 100 mg In 63.333 200 Sodium Chloride 0.9% 90 ml @ 10 MG/HR 10 mls/hr IV .Q10H [facility] Rx#: [id number] Oral 960 240 Output: Urine 925 1050 Other: Voiding Method Indwelling Catheter Indwelling Catheter Indwelling Catheter - Exam No acute distress, oriented 3. The patient's currently on room air. No respiratory distress. HEENT examination is grossly unremarkable. Mucous membranes are moist. No oral lesions. Neck supple. Full range of motion. No adenopathy thyromegaly or neck vein distention. Cardiovascular examination reveals regular rhythm rate. S1-S2 normal. No S3 or S4. No discernible murmur noted. Heart rate 91 bpm. Lungs reveal mostly clear breath sounds. Scattered rhonchi. No wheezes or crackles. Room air saturation is 93 %. Abdomen soft bowel sounds are heard. No masses or tenderness. Extremities are intact. No cyanosis or clubbing. The patient has significant pitting edema in the lower extremities. Skin is without rash. Multiple areas of ecchymoses. Neurologic examination is brief but nonfocal. - Labs CBC & Chem 7: 07/17/23 08:18 07/17/23 08:18 Labs: Abnormal Lab Results - Last 24 Hours (Table) 07/16/23 07/16/23 07/16/23 Range/Units 11:18 11:26 16:20 RBC (4.30-5.90) m/uL Hgb (13.0-17.5) gm/dL Hct (39.0-53.0) % MCV (80.0-100.0) fL MCH (25.0-35.0) pg RDW (11.5-15.5) % Plt Count (150-450) k/uL Lymphocytes # (1.0-4.8) k/uL Macrocytosis Sodium (137-145) mmol/L Potassium (3.5-5.1) mmol/L Chloride (98-107) mmol/L BUN (9-20) mg/dL Creatinine (0.66-1.25) mg/dL Glucose (74-99) mg/dL POC Glucose (mg/dL) 135 H 198 H (70-110) mg/dL Calcium (8.4-10.2) mg/dL Magnesium 1.5 L (1.6-2.3) mg/dL 07/16/23 07/17/23 07/17/23 Range/Units 19:55 05:57 08:18 RBC (4.30-5.90) m/uL Hgb (13.0-17.5) gm/dL Hct (39.0-53.0) % MCV (80.0-100.0) fL MCH (25.0-35.0) pg RDW (11.5-15.5) % Plt Count (150-450) k/uL Lymphocytes # (1.0-4.8) k/uL Macrocytosis Sodium 132 L (137-145) mmol/L Potassium 3.1 L (3.5-5.1) mmol/L Chloride 96 L (98-107) mmol/L BUN 57 H (9-20) mg/dL Creatinine 1.83 H (0.66-1.25) mg/dL Glucose 129 H (74-99) mg/dL POC Glucose (mg/dL) 158 H 128 H (70-110) mg/dL Calcium 7.2 L (8.4-10.2) mg/dL Magnesium (1.6-2.3) mg/dL 07/17/23 Range/Units 08:18 RBC 2.71 L (4.30-5.90) m/uL Hgb 9.7 L (13.0-17.5) gm/dL Hct 29.0 L (39.0-53.0) % MCV 107.2 H (80.0-100.0) fL MCH 36.0 H (25.0-35.0) pg RDW 21.2 H (11.5-15.5) % Plt Count 52 L (150-450) k/uL Lymphocytes # 0.7 L (1.0-4.8) k/uL Macrocytosis Marked A Sodium (137-145) mmol/L Potassium (3.5-5.1) mmol/L Chloride (98-107) mmol/L BUN (9-20) mg/dL Creatinine (0.66-1.25) mg/dL Glucose (74-99) mg/dL POC Glucose (mg/dL) (70-110) mg/dL Calcium (8.4-10.2) mg/dL Magnesium (1.6-2.3) mg/dL Assessment and Plan Plan: Acute hypoxemic respiratory failure secondary to COPD exacerbation, stable and the patient is currently on room air oxygen. Present LV function with moderate degree of mitral regurgitation Non-anion gap metabolic acidosis, recovered Acute kidney injury, The renal function is improving and the creatinine is down to 2.08 the patient remains on Lasix at 10 mg an hour. The patient is producing adequate urine output. The patient continues to have increased edema lower ex tremities bilaterally. There were done yesterday showed no evidence of any DVT in the lower extremities bilaterally. Macrocytic anemia. Pancytopenia. History of alcohol abuse. Diabetes mellitus. Subclinical hypothyroidism. Chronic and ongoing tobacco dependence. Chronic low back pain. Probable adrenal insufficiency. Plan: The plan is essentially the same. We'll continue diuresis. Discussed the case with nephrology. We'll continue the Lasix drip The plan is to continue the Lasix drip at 10 mg an hour Monitor fluid balance Monitor electrolytes and replace the potassium, the potassium is at 3.1 today and needs to be replaced with a creatinine of 1.8 Continue bronchodilators Patient is on room air oxygen Rest of the medications were reviewed no other changes. Pulmonary standpoint. Continues to have signs of fluid overload Patient has been switched to oral hydrocortisone We'll continue to follow
[2023-07-17 16:20] LABS: Glucose,Whole Blood 147 mg/dL (70-110)
--- NOTE | 2023-07-17 16:53 | P.PN ---
Subjective Progress Note Date: 07/17/23 Principal diagnosis: Bicytopenia In follow-up today patient reports feeling okay, definitely not feeling worse. Objective - Vital Signs Vital signs: Vital Signs Temp 98.1 F 07/17/23 08:00 Pulse 98 07/17/23 08:00 Resp 18 07/17/23 08:00 BP 128/83 07/17/23 08:00 Pulse Ox 95 07/17/23 08:00 FiO2 21 07/05/23 09:14 Intake & Output 07/16/23 07/17/23 07/17/23 18:59 06:59 18:59 Intake Total 1023.333 200 240 Output Total 925 1050 Balance 98.333 -850 240 Weight 91.8 kg 91 kg Intake: Intake, IV Titration 63.333 200 Amount Furosemide 100 mg In 63.333 200 Sodium Chloride 0.9% 90 ml @ 10 MG/HR 10 mls/hr IV .Q10H [facility] Rx#: [id number] Oral 960 240 Output: Urine 925 1050 Other: Voiding Method Indwelling Catheter Indwelling Catheter Indwelling Catheter - Constitutional General appearance: Present: average body habitus, cooperative, no acute distress - EENT Eyes: Present: anicteric sclerae, EOMI ENT: Present: hearing grossly normal - Respiratory Details: Respirations even and unlabored at rest - Integumentary Integumentary: Present: pale - Musculoskeletal Musculoskeletal: Present: generalized weakness - Psychiatric Psychiatric: Present: A&O x's 3 - Labs CBC & Chem 7: 07/17/23 08:18 07/17/23 08:18 Labs: Abnormal Lab Results - Last 24 Hours (Table) 07/16/23 07/16/23 07/16/23 Range/Units 11:18 11:26 16:20 RBC (4.30-5.90) m/uL Hgb (13.0-17.5) gm/dL Hct (39.0-53.0) % MCV (80.0-100.0) fL MCH (25.0-35.0) pg RDW (11.5-15.5) % Plt Count (150-450) k/uL Lymphocytes # (1.0-4.8) k/uL Macrocytosis Sodium (137-145) mmol/L Potassium (3.5-5.1) mmol/L Chloride (98-107) mmol/L BUN (9-20) mg/dL Creatinine (0.66-1.25) mg/dL Glucose (74-99) mg/dL POC Glucose (mg/dL) 135 H 198 H (70-110) mg/dL Calcium (8.4-10.2) mg/dL Magnesium 1.5 L (1.6-2.3) mg/dL 07/16/23 07/17/23 07/17/23 Range/Units 19:55 05:57 08:18 RBC (4.30-5.90) m/uL Hgb (13.0-17.5) gm/dL Hct (39.0-53.0) % MCV (80.0-100.0) fL MCH (25.0-35.0) pg RDW (11.5-15.5) % Plt Count (150-450) k/uL Lymphocytes # (1.0-4.8) k/uL Macrocytosis Sodium 132 L (137-145) mmol/L Potassium 3.1 L (3.5-5.1) mmol/L Chloride 96 L (98-107) mmol/L BUN 57 H (9-20) mg/dL Creatinine 1.83 H (0.66-1.25) mg/dL Glucose 129 H (74-99) mg/dL POC Glucose (mg/dL) 158 H 128 H (70-110) mg/dL Calcium 7.2 L (8.4-10.2) mg/dL Magnesium (1.6-2.3) mg/dL 07/17/23 Range/Units 08:18 RBC 2.71 L (4.30-5.90) m/uL Hgb 9.7 L (13.0-17.5) gm/dL Hct 29.0 L (39.0-53.0) % MCV 107.2 H (80.0-100.0) fL MCH 36.0 H (25.0-35.0) pg RDW 21.2 H (11.5-15.5) % Plt Count 52 L (150-450) k/uL Lymphocytes # 0.7 L (1.0-4.8) k/uL Macrocytosis Marked A Sodium (137-145) mmol/L Potassium (3.5-5.1) mmol/L Chloride (98-107) mmol/L BUN (9-20) mg/dL Creatinine (0.66-1.25) mg/dL Glucose (74-99) mg/dL POC Glucose (mg/dL) (70-110) mg/dL Calcium (8.4-10.2) mg/dL Magnesium (1.6-2.3) mg/dL Assessment and Plan (1) Bicytopenia Current Visit: Yes Status: Acute Priority: High Code(s): D75.89 - OTHER SPECIFIED DISEASES OF BLOOD AND BLOOD-FORMING ORGANS SNOMED Code(s): 91038206 Plan: Bicytopenia, Anemia, thrombocytopenia -multifactorial-CKD, ETOH marrow damage exacerbated by acute infection/stress, chronic inflammation and nutritional deficiency. Patient's counts are finally showing some slight improvements, first time since admission. -Folic acid supplement -Copper levels low, recommended [id number] copper supplement for 30 days with a recheck by his PCP. Copper supplement is not for long-term use. -Hepatitis panel neg, HIV neg, no other deficiencies found. -Recommend GI f/u (esophageal varices seen on CT, cirrhosis) -Patient has Received 3 units PRBCs, most recently on the and . Hemoglobin 9.7 today -Cont to monitor CBC. Transfuse for hemoglobin less than 7 -Transfuse for platelets less than 10,000 unless patient is symptomatic. Patient has not required platelet transfusion. Platelets 52,000 today, 1st time this admit plt >50K. He is okay for antiplatelet therapy, DVT prophylaxis. -Erythropoetin level pending, maybe patient is a candidate for SHERRI
[2023-07-17 19:20] LABS: Glucose,Whole Blood 150 mg/dL (70-110)
--- NOTE | 2023-07-17 19:49 | P.PN ---
Subjective Patient is seen for follow-up for acute kidney injury. Currently maintained on Lasix drip for severe volume overload. Patient has indwelling Charles catheter. 24 hour urine documented at 1.9 L. Serum creatinine decreased to 1.8 today. No significant complaints. Weight continues to decrease slowly. Objective - Vital Signs Vital signs: Vital Signs Temp 98.1 F 07/17/23 16:00 Pulse 66 07/17/23 16:00 Resp 16 07/17/23 16:00 BP 90/57 07/17/23 16:00 Pulse Ox 95 07/17/23 16:00 FiO2 21 07/05/23 09:14 Intake & Output 07/17/23 07/17/23 07/18/23 06:59 18:59 06:59 Intake Total 200 580 Output Total 1050 400 Balance -850 180 Weight 91 kg Intake: Intake, IV Titration 200 100 Amount Furosemide 100 mg In 200 100 Sodium Chloride 0.9% 90 ml @ 10 MG/HR 10 mls/hr IV .Q10H [facility] Rx#: [id number] Oral 480 Output: Urine 1050 400 Other: Voiding Method Indwelling Catheter Indwelling Catheter - Exam Patient is awake comfortable not in any acute distress Alert oriented 3 Examination of the heart S1 and S2 Examination of the lungs bilateral breath sounds are heard no crackles or wheezing is heard Abdomen is soft distended nontender Examination of lower extremities shows 2+ edema bilaterally , legs are wrapped MONOGRAM TECHNICIAN exam grossly intact - Labs CBC & Chem 7: 07/17/23 08:18 07/17/23 08:18 Labs: Abnormal Lab Results - Last 24 Hours (Table) 07/16/23 07/17/23 07/17/23 Range/Units 19:55 05:57 08:18 RBC (4.30-5.90) m/uL Hgb (13.0-17.5) gm/dL Hct (39.0-53.0) % MCV (80.0-100.0) fL MCH (25.0-35.0) pg RDW (11.5-15.5) % Plt Count (150-450) k/uL Lymphocytes # (1.0-4.8) k/uL Macrocytosis Sodium 132 L (137-145) mmol/L Potassium 3.1 L (3.5-5.1) mmol/L Chloride 96 L (98-107) mmol/L BUN 57 H (9-20) mg/dL Creatinine 1.83 H (0.66-1.25) mg/dL Glucose 129 H (74-99) mg/dL POC Glucose (mg/dL) 158 H 128 H (70-110) mg/dL Calcium 7.2 L (8.4-10.2) mg/dL 07/17/23 07/17/23 07/17/23 Range/Units 08:18 11:17 16:11 RBC 2.71 L (4.30-5.90) m/uL Hgb 9.7 L (13.0-17.5) gm/dL Hct 29.0 L (39.0-53.0) % MCV 107.2 H (80.0-100.0) fL MCH 36.0 H (25.0-35.0) pg RDW 21.2 H (11.5-15.5) % Plt Count 52 L (150-450) k/uL Lymphocytes # 0.7 L (1.0-4.8) k/uL Macrocytosis Marked A Sodium (137-145) mmol/L Potassium (3.5-5.1) mmol/L Chloride (98-107) mmol/L BUN (9-20) mg/dL Creatinine (0.66-1.25) mg/dL Glucose (74-99) mg/dL POC Glucose (mg/dL) 147 H 147 H (70-110) mg/dL Calcium (8.4-10.2) mg/dL 07/17/23 Range/Units 19:17 RBC (4.30-5.90) m/uL Hgb (13.0-17.5) gm/dL Hct (39.0-53.0) % MCV (80.0-100.0) fL MCH (25.0-35.0) pg RDW (11.5-15.5) % Plt Count (150-450) k/uL Lymphocytes # (1.0-4.8) k/uL Macrocytosis Sodium (137-145) mmol/L Potassium (3.5-5.1) mmol/L Chloride (98-107) mmol/L BUN (9-20) mg/dL Creatinine (0.66-1.25) mg/dL Glucose (74-99) mg/dL POC Glucose (mg/dL) 150 H (70-110) mg/dL Calcium (8.4-10.2) mg/dL Assessment and Plan Assessment: 1. Acute kidney injury secondary to ATN secondary to hypotension, anemia. No proteinuria on UA. Creatinine 1.8 today. Creatinine 0.7 dated February 06, 2023. 2. Volume overload. 3. Moderate mitral regurgitation. 4. Hypotension. Cortisol level on the lower side. On hydrocortisone. Consider endocrinology evaluation outpatient for workup for adrenal insufficiency. 5. Hypervolemic hyponatremia. 6. Pancytopenia being followed by hematology. Iron replete. 7. Hyperkalemia secondary to acute kidney injury and acidosis. Questionable adrenal insufficiency. Improved. 8. Urinary retention. Has Charles catheter. 9. Liver cirrhosis. 10. Acute blood loss anemia status post packed RBCs 11. Hypokalemia secondary to diuresis Plan: Continue with Lasix drip Replace potassium Repeat labs
[2023-07-17] MEDS: HYDROCORTISONE 10 MG TAB PO SCH (22:19)
[2023-07-18] MEDS: HYDROcodone/APAP 7.5-325MG 1 EACH TAB PO PRN ×3 (01:03→16:02)
[2023-07-18] MEDS: NYSTATIN 100,000 UNIT/GM POWD 15 GM TOPICAL SCH ×3 (01:15→20:32)
[2023-07-18] MEDS: INSULIN ASPART (NovoLOG) 100 UNIT/ML VIAL SQ SCH ×5 (01:15→20:22)
[2023-07-18] MEDS: FUROSEMIDE 100 MG in SODIUM CHLORIDE 0.9% 90 ML IV SCH (02:00)
[2023-07-18] MEDS: traMADol 50 MG TAB PO PRN ×3 (05:50→20:32)
[2023-07-18] MEDS: MIDODRINE 5 MG TAB PO SCH ×3 (05:51→16:02)
[2023-07-18 06:06] LABS: Glucose,Whole Blood 130 mg/dL (70-110)
[2023-07-18 07:04] LABS: Anisocytosis Moderate; Basophils % (A) 0 %; Eosinophils % (A) 0 %; HCT 26.8 % (39.0-53.0); Lymphocytes # (A) 0.5 k/uL (1.0-4.8); Lymphocytes % (A) 9 %; MCHC 33.6 g/dL (31.0-37.0); MCV 107.2 fL (80.0-100.0); Macrocytosis Marked; Mean Platelet Volume 11.2; Monocytes # (A) 0.2 k/uL (0-1.0); Monocytes % (A) 3 %; Neutrophils # (A) 5.2 k/uL (1.3-7.7); Neutrophils % (A) 87 %; RDW 21.3 % (11.5-15.5); WBC 5.9 k/uL (3.8-10.6)
[2023-07-18 07:13] LABS: Platelet Count 38 k/uL (150-450)
[2023-07-18 07:35] LABS: African American GFR (CKD) 40 (>60 ml/min/1.73 sqM); Anion Gap 8 mmol/L; Blood Urea Nitrogen 57 mg/dL (9-20); Calcium 7.5 mg/dL (8.4-10.2); Carbon Dioxide 29 mmol/L (22-30); Chloride 96 mmol/L (98-107); Glucose 136 mg/dL (74-99); Non-African American GFR(CKD) 35 (>60 ml/min/1.73 sqM); Sodium 133 mmol/L (137-145)
[2023-07-18] MEDS: IPRATROPIUM-ALBUTEROL 3 ML NEB INHALATION SCH ×4 (08:25→20:51)
[2023-07-18] MEDS: SYMBICORT 160-4.5 MCG INHALER INHALATION SCH ×2 (08:25→20:51)
[2023-07-18] MEDS: METOPROLOL TARTRATE 12.5 MG TAB PO SCH ×2 (08:31→20:33)
[2023-07-18] MEDS: HYDROCORTISONE 20 MG TAB PO SCH (08:31)
[2023-07-18] MEDS: THIAMINE 100 MG TAB PO SCH (08:31)
[2023-07-18] MEDS: LIDOCAINE 5% PATCH TOPICAL SCH (08:31)
[2023-07-18] MEDS: FOLIC ACID 1 MG TAB PO SCH (08:32)
[2023-07-18] MEDS: FAMOTIDINE 20 MG TAB PO SCH (08:32)
[2023-07-18] MEDS: POTASSIUM CHLORIDE ER 20 MEQ TAB.ER PO SCH ×2 (08:32→20:33)
[2023-07-18] MEDS: CHOLECALCIFEROL 25 MCG (1000 IU) TABLET PO SCH (08:32)
[2023-07-18] MEDS ORDERED: POTASSIUM CHLORIDE ER 20 MEQ TAB.ER PO STA (11:29)
--- NOTE | 2023-07-18 11:30 | P.PN ---
Subjective Patient is seen for follow-up for acute kidney injury. Currently maintained on Lasix drip for severe volume overload. Patient has indwelling Charles catheter. 24 hour urine documented at 1.6 L. Serum creatinine at 2.0 today. No significant complaints. Weight continues to decrease slowly. Objective - Vital Signs Vital signs: Vital Signs Temp 98.1 F 07/18/23 07:25 Pulse 60 07/18/23 08:00 Resp 18 07/18/23 08:00 BP 119/82 07/18/23 07:25 Pulse Ox 94 L 07/18/23 07:25 FiO2 21 07/05/23 09:14 Intake & Output 07/17/23 07/18/23 07/18/23 18:59 06:59 18:59 Intake Total 580 90 180 Output Total 400 1200 175 Balance 180 -1110 5 Weight 90.2 kg Intake: Intake, IV Titration 100 90 Amount Furosemide 100 mg In 100 90 Sodium Chloride 0.9% 90 ml @ 10 MG/HR 10 mls/hr IV .Q10H [facility] Rx#: [id number] Oral 480 180 Output: Urine 400 1200 175 Coude 600 Other: Voiding Method Indwelling Catheter Indwelling Catheter Indwelling Catheter - Exam Patient is awake comfortable not in any acute distress Alert oriented 3 Examination of the heart S1 and S2 Examination of the lungs bilateral breath sounds are heard no crackles or wheezing is heard Abdomen is soft distended nontender Examination of lower extremities shows 2+ edema bilaterally , legs are wrapped WEIGHT CALCULATOR exam grossly intact - Labs CBC & Chem 7: 07/18/23 06:43 07/18/23 06:43 Labs: Abnormal Lab Results - Last 24 Hours (Table) 07/17/23 07/17/23 07/18/23 Range/Units 16:11 19:17 06:04 RBC (4.30-5.90) m/uL Hgb (13.0-17.5) gm/dL Hct (39.0-53.0) % MCV (80.0-100.0) fL MCH (25.0-35.0) pg RDW (11.5-15.5) % Plt Count (150-450) k/uL Lymphocytes # (1.0-4.8) k/uL Macrocytosis Sodium (137-145) mmol/L Potassium (3.5-5.1) mmol/L Chloride (98-107) mmol/L BUN (9-20) mg/dL Creatinine (0.66-1.25) mg/dL Glucose (74-99) mg/dL POC Glucose (mg/dL) 147 H 150 H 130 H (70-110) mg/dL Calcium (8.4-10.2) mg/dL 07/18/23 07/18/23 Range/Units 06:43 06:43 RBC 2.50 L (4.30-5.90) m/uL Hgb 9.0 L (13.0-17.5) gm/dL Hct 26.8 L (39.0-53.0) % MCV 107.2 H (80.0-100.0) fL MCH 36.0 H (25.0-35.0) pg RDW 21.3 H (11.5-15.5) % Plt Count 38 L (150-450) k/uL Lymphocytes # 0.5 L (1.0-4.8) k/uL Macrocytosis Marked A Sodium 133 L (137-145) mmol/L Potassium 3.0 L (3.5-5.1) mmol/L Chloride 96 L (98-107) mmol/L BUN 57 H (9-20) mg/dL Creatinine 2.01 H (0.66-1.25) mg/dL Glucose 136 H (74-99) mg/dL POC Glucose (mg/dL) (70-110) mg/dL Calcium 7.5 L (8.4-10.2) mg/dL Assessment and Plan Assessment: 1. Acute kidney injury secondary to ATN secondary to hypotension, anemia. No proteinuria on UA. Creatinine 1.8 today. Creatinine 0.7 dated February 06, 2023. 2. Volume overload. 3. Moderate mitral regurgitation. 4. Hypotension. Cortisol level on the lower side. On hydrocortisone. Consider endocrinology evaluation outpatient for workup for adrenal insufficien cy. 5. Hypervolemic hyponatremia. 6. Pancytopenia being followed by hematology. Iron replete. 7. Hyperkalemia secondary to acute kidney injury and acidosis. Questionable adrenal insufficiency. Improved. 8. Urinary retention. Has Charles catheter. 9. Liver cirrhosis. 10. Acute blood loss anemia status post packed RBCs 11. Hypokalemia secondary to diuresis Plan: DC Lasix drip Switch to IV push Lasix Replace potassium aggressively. Repeat labs
[2023-07-18 11:32] LABS: Glucose,Whole Blood 206 mg/dL (70-110)
[2023-07-18] MEDS: FUROSEMIDE 10 MG/ML 10 ML VIAL IV SCH (15:47)
[2023-07-18 16:29] LABS: Glucose,Whole Blood 174 mg/dL (70-110)
--- NOTE | 2023-07-18 17:46 | P.PN ---
Subjective Progress Note Date: 07/18/23 COPD, shortness of breath, non-ST segment elevation myocardial infarction. On today's evaluation of 07/14/2023, the patient is being seen for a follow-up. The patient is calm and comfortable. The patient is currently on room air oxygen. No significant respiratory distress. Continues to have significant amount of edema lower extremity is bilaterally and the patient remains on a Lasix drip. Charles catheter is in place and the patient is a negative fluid balance. Labs from today shows a WBC count of 4.4, hematocrit is at 27.9, potassium level is at 3.4, BUN is at 60 with a creatinine of 2.08. Noted the renal function continues to improve. Potassium level needs to be replaced. The the deputy program manager on the case. The patient remains on Symbicort as maintenance, DuoNeb updrafts, and the patient is also on Lasix drip which is running at 10 mg an hour. Doppler of the lower extremities showed no evidence of any DVTs. On today's evaluation of 07/16/2023, the patient doing well on a Lasix drip at 10 mg an hour with excellent urine output. There is ongoing improvement in the renal function and the lower extremity edema. BUN is at 59 with a creatinine of 1.8. Hemoglobin is stable at 8.7. No other new complaints otherwise for now. The patient is on room air oxygen. No fever. No chills. Hemodynamically stable. On today's evaluation of 07/17/2023, the patient remains on a Lasix drip at 10 mg an hour. No new complaints. The fluid balance is negative the patient has no respiratory complaints. The patient's echoes at 8 with a hemoglobin of 9.7, BUN 67 with a creatinine of 1.8 and a sodium level is at 132. Continues to have edema lower extremities bilaterally. No fever. No chills. No chest pain. No pleurisy. No hemoptysis. Tolerating diet. On today's evaluation of 07/18/2023, the patient is calm and comfortable. Continues to diurese with Lasix drip at 10 mg an hour. Continues to have significant amount of edema lower extremities reaching to his thighs. Charles catheter is in place. Urine output has been in the order of 1.6 L over the past 24 hours. His ear function remains stable with a creatinine of 2.0 which is essentially compatible to yesterday with a BUN of 57. Sodium levels of 133 and a potassium level is at 3.0 to be replaced. Hemoglobin is at 9.0 with a white cell count of 5.6. No other new complaints otherwise for now. His condition remained stable. Objective - Vital Signs Vital signs: Vital Signs Temp 98.1 F 07/18/23 07:25 Pulse 60 07/18/23 08:00 Resp 18 07/18/23 08:00 BP 119/82 07/18/23 07:25 Pulse Ox 94 L 07/18/23 07:25 FiO2 21 07/05/23 09:14 Intake & Output 07/17/23 07/18/23 07/18/23 18:59 06:59 18:59 Intake Total 580 90 180 Output Total 400 1200 Balance 180 -1110 180 Weight 90.2 kg Intake: Intake, IV Titration 100 90 Amount Furosemide 100 mg In 100 90 Sodium Chloride 0.9% 90 ml @ 10 MG/HR 10 mls/hr IV .Q10H [facility] Rx#: [id number] Oral 480 180 Output: Urine 400 1200 Coude 600 Other: Voiding Method Indwelling Catheter Indwelling Catheter Indwelling Catheter - Exam No acute distress, oriented 3. The patient's currently on room air. No respiratory distress. HEENT examination is grossly unremarkable. Mucous membranes are moist. No oral lesions. Neck supple. Full range of motion. No adenopathy thyromegaly or neck vein distention. Cardiovascular examination reveals regular rhythm rate. S1-S2 normal. No S3 or S4. No discernible murmur noted. Heart rate 91 bpm. Lungs reveal mostly clear breath sounds. Scattered rhonchi. No wheezes or crackles. Room air saturation is 93 %. Abdomen soft bowel sounds are heard. No masses or tenderness. Extremities are intact. No cyanosis or clubbing. The patient has significant pitting edema in the lower extremities. Skin is without rash. Multiple areas of ecchymoses. Neurologic examination is brief but nonfocal. - Labs CBC & Chem 7: 07/18/23 06:43 07/18/23 06:43 Labs: Abnormal Lab Results - Last 24 Hours (Table) 07/17/23 07/17/23 07/17/23 Range/Units 08:18 11:17 16:11 RBC (4.30-5.90) m/uL Hgb (13.0-17.5) gm/dL Hct (39.0-53.0) % MCV (80.0-100.0) fL MCH (25.0-35.0) pg RDW (11.5-15.5) % Plt Count (150-450) k/uL Lymphocytes # (1.0-4.8) k/uL Macrocytosis Sodium (137-145) mmol/L Potassium 3.1 L (3.5-5.1) mmol/L Chloride 96 L (98-107) mmol/L BUN (9-20) mg/dL Creatinine (0.66-1.25) mg/dL Glucose (74-99) mg/dL POC Glucose (mg/dL) 147 H 147 H (70-110) mg/dL Calcium (8.4-10.2) mg/dL 07/17/23 07/18/23 07/18/23 Range/Units 19:17 06:04 06:43 RBC 2.50 L (4.30-5.90) m/uL Hgb 9.0 L (13.0-17.5) gm/dL Hct 26.8 L (39.0-53.0) % MCV 107.2 H (80.0-100.0) fL MCH 36.0 H (25.0-35.0) pg RDW 21.3 H (11.5-15.5) % Plt Count 38 L (150-450) k/uL Lymphocytes # 0.5 L (1.0-4.8) k/uL Macrocytosis Marked A Sodium (137-145) mmol/L Potassium (3.5-5.1) mmol/L Chloride (98-107) mmol/L BUN (9-20) mg/dL Creatinine (0.66-1.25) mg/dL Glucose (74-99) mg/dL POC Glucose (mg/dL) 150 H 130 H (70-110) mg/dL Calcium (8.4-10.2) mg/dL 07/18/23 Range/Units 06:43 RBC (4.30-5.90) m/uL Hgb (13.0-17.5) gm/dL Hct (39.0-53.0) % MCV (80.0-100.0) fL MCH (25.0-35.0) pg RDW (11.5-15.5) % Plt Count (150-450) k/uL Lymphocytes # (1.0-4.8) k/uL Macrocytosis Sodium 133 L (137-145) mmol/L Potassium 3.0 L (3.5-5.1) mmol/L Chloride 96 L (98-107) mmol/L BUN 57 H (9-20) mg/dL Creatinine 2.01 H (0.66-1.25) mg/dL Glucose 136 H (74-99) mg/dL POC Glucose (mg/dL) (70-110) mg/dL Calcium 7.5 L (8.4-10.2) mg/dL Assessment and Plan Plan: Acute hypoxemic respiratory failure secondary to COPD exacerbation, stable and the patient is currently on room air oxygen. Present LV function with moderate degree of mitral regurgitation Non-anion gap metabolic acidosis, recovered Acute kidney injury, The renal function is improving and the creatinine is down to 2.08 the patient remains on Lasix at 10 mg an hour. The patient is producing adequate urine output. The patient continues to have increased edema lower extremities bilaterally. There were done yesterday showed no evidence of any DVT in the lower extremities bilaterally. Macrocytic anemia. Pancytopenia. History of alcohol abuse. Diabetes mellitus. Subclinical hypothyroidism. Chronic and ongoing tobacco dependence. Chronic low back pain. Probable adrenal insufficiency. Plan: Discussed the case with nephrology. Lasix drip will be discontinued and the patient will be given IV Lasix pushes, 80 mg every 8 hours Replaced the potassium Monitor fluid balance Monitor electrolytes and creatinine which is currently at 2.0 Continue bronchodilators Patient is on room air oxygen Rest of the medications were reviewed no other changes. Pulmonary standpoint. Continues to have signs of fluid overload Patient has been switched to oral hydrocortisone We'll continue to follow
--- NOTE | 2023-07-18 19:24 | P.PN ---
Subjective Progress Note Date: 07/18/23 Principal diagnosis: Bicytopenia In follow-up today patient has no new symptoms to report, swelling in his extremities is stable, denies F, N,V, bleeding, or new pain. Objective - Vital Signs Vital signs: Vital Signs Temp 97.9 F 07/18/23 12:06 Pulse 61 07/18/23 13:24 Resp 16 07/18/23 13:24 BP 127/65 07/18/23 12:06 Pulse Ox 94 L 07/18/23 12:06 FiO2 21 07/05/23 09:14 Intake & Output 07/17/23 07/18/23 07/18/23 18:59 06:59 18:59 Intake Total 580 90 180 Output Total 400 1200 175 Balance 180 -1110 5 Weight 90.2 kg Intake: Intake, IV Titration 100 90 Amount Furosemide 100 mg In 100 90 Sodium Chloride 0.9% 90 ml @ 10 MG/HR 10 mls/hr IV .Q10H [facility] Rx#: [id number] Oral 480 180 Output: Urine 400 1200 175 Coude 600 Other: Voiding Method Indwelling Catheter Indwelling Catheter Indwelling Catheter - Constitutional Constitutional Comment(s): muscle wasting, frail, looks much older then stated age General appearance: Present: cooperative, no acute distress - EENT Eyes: Present: anicteric sclerae, EOMI ENT: Present: hearing grossly normal - Respiratory Details: resp unlabored at rest - Peripheral edema leg Peripheral Edema: bilateral: 2+ - Integumentary Integumentary: Present: pale - Neurologic Neurologic: Present: CNII-XII intact - Musculoskeletal Musculoskeletal: Present: generalized weakness - Psychiatric Psychiatric: Present: A&O x's 3, appropriate affect - Labs CBC & Chem 7: 07/18/23 06:43 07/18/23 06:43 Labs: Abnormal Lab Results - Last 24 Hours (Table) 07/17/23 07/17/23 07/18/23 Range/Units 16:11 19:17 06:04 RBC (4.30-5.90) m/uL Hgb (13.0-17.5) gm/dL Hct (39.0-53.0) % MCV (80.0-100.0) fL MCH (25.0-35.0) pg RDW (11.5-15.5) % Plt Count (150-450) k/uL Lymphocytes # (1.0-4.8) k/uL Macrocytosis Sodium (137-145) mmol/L Potassium (3.5-5.1) mmol/L Chloride (98-107) mmol/L BUN (9-20) mg/dL Creatinine (0.66-1.25) mg/dL Glucose (74-99) mg/dL POC Glucose (mg/dL) 147 H 150 H 130 H (70-110) mg/dL Calcium (8.4-10.2) mg/dL 07/18/23 07/18/23 07/18/23 Range/Units 06:43 06:43 11:30 RBC 2.50 L (4.30-5.90) m/uL Hgb 9.0 L (13.0-17.5) gm/dL Hct 26.8 L (39.0-53.0) % MCV 107.2 H (80.0-100.0) fL MCH 36.0 H (25.0-35.0) pg RDW 21.3 H (11.5-15.5) % Plt Count 38 L (150-450) k/uL Lymphocytes # 0.5 L (1.0-4.8) k/uL Macrocytosis Marked A Sodium 133 L (137-145) mmol/L Potassium 3.0 L (3.5-5.1) mmol/L Chloride 96 L (98-107) mmol/L BUN 57 H (9-20) mg/dL Creatinine 2.01 H (0.66-1.25) mg/dL Glucose 136 H (74-99) mg/dL POC Glucose (mg/dL) 206 H (70-110) mg/dL Calcium 7.5 L (8.4-10.2) mg/dL Assessment and Plan (1) Bicytopenia Current Visit: Yes Status: Acute Priority: High Code(s): D75.89 - OTHER SPECIFIED DISEASES OF BLOOD AND BLOOD-FORMING ORGANS SNOMED Code(s): 02287986 Plan: Bicytopenia, Anemia, thrombocytopenia -multifactorial-CKD, ETOH marrow damage exacerbated by acute infection/stress, chronic inflammation and nutritional deficiency. Hgb stable, plt dropped again -Low folic acid, supplemented -Copper levels low, recommended [id number] copper supplement for 30 days with a recheck by his PCP. Copper supplement is not for long-term use. -Hepatitis panel neg, HIV neg, no other deficiencies found. -Recommend GI f/u (esophageal varices seen on CT, cirrhosis) -Patient has Received 3 units PRBCs, most recently on the and . Hemoglobin 9 today -Cont to monitor CBC. Transfuse for hemoglobin less than 7 -Transfuse for platelets less than 10,000 unless patient is symptomatic. Patient has not required platelet transfusion. Platelets back down below 50,000, no anticoagulation or antiplatelet therapy. -Erythropoetin slightly elevated at 39. Paraproteinemia work up ordered
[2023-07-18 20:25] LABS: Glucose,Whole Blood 105 mg/dL (70-110)
[2023-07-18] MEDS: HYDROCORTISONE 10 MG TAB PO SCH (20:33)
--- NOTE | 2023-07-18 21:38 | PN ---
PROGRESS NOTE DATE OF SERVICE: 07/18/2023 SUBJECTIVE: This is a 63-year-old gentleman who was admitted after compression fracture, also had CHF acute exacerbation. Lasix drip has been stopped. The patient is started on 80 mg IV Lasix today. No chest pain, no palpations. PHYSICAL EXAMINATION: GENERAL: Pulse 61, blood pressure 127/65, respirations 16. CHEST: Few scattered rhonchi, no crackles. ABDOMEN: Soft. LEGS: Bilateral leg edema. NERVOUS SYSTEM: Diffusely weak. LABORATORY DATA: Noted. ASSESSMENT: 1. Status post fall and compression fracture of L3 spine with LSO brace. 2. Chronic obstructive pulmonary disease acute exacerbation, acute hypoxic respiratory failure. 3. CHF acute exacerbation, on IV Lasix. 4. Bicytopenia, thrombocytopenia. 5. Multiple medical issues. RECOMMENDATIONS: Recommended to continue current management, continue symptomatic treatment. Continue with IV Lasix. Once the patient's condition improves, the patient may be discharged on p.o. Lasix, bronchodilators for possible ECF rehab. Further recommendations to follow. MMODL / IJN: [id number] /
[2023-07-19] MEDS: FUROSEMIDE 10 MG/ML 10 ML VIAL IV SCH ×4 (00:13→23:24)
[2023-07-19 02:47] LABS: Albumin 2.9 d/dL (3.8-4.9); Immunoglobulin M 59.9 mg/dL (40.0-280.0); Protein, Total 5.4 d/dL (6.2-8.2)
[2023-07-19] MEDS: INSULIN ASPART (NovoLOG) 100 UNIT/ML VIAL SQ SCH ×4 (06:08→21:43)
[2023-07-19] MEDS: MIDODRINE 5 MG TAB PO SCH ×3 (06:09→17:16)
[2023-07-19 06:10] LABS: Glucose,Whole Blood 131 mg/dL (70-110)
[2023-07-19] MEDS: FOLIC ACID 1 MG TAB PO SCH (08:43)
[2023-07-19] MEDS: LIDOCAINE 5% PATCH TOPICAL SCH (08:43)
[2023-07-19] MEDS: HYDROCORTISONE 20 MG TAB PO SCH (08:43)
[2023-07-19] MEDS: POTASSIUM CHLORIDE ER 20 MEQ TAB.ER PO SCH ×2 (08:43→19:58)
[2023-07-19] MEDS: METOPROLOL TARTRATE 12.5 MG TAB PO SCH ×2 (08:43→19:58)
[2023-07-19] MEDS: FAMOTIDINE 20 MG TAB PO SCH (08:43)
[2023-07-19] MEDS: THIAMINE 100 MG TAB PO SCH (08:44)
[2023-07-19] MEDS: CHOLECALCIFEROL 25 MCG (1000 IU) TABLET PO SCH (08:44)
[2023-07-19] MEDS: NYSTATIN 100,000 UNIT/GM POWD 15 GM TOPICAL SCH ×2 (08:44→20:03)
[2023-07-19] MEDS: HYDROcodone/APAP 7.5-325MG 1 EACH TAB PO PRN ×2 (08:44→20:01)
[2023-07-19] MEDS: SYMBICORT 160-4.5 MCG INHALER INHALATION SCH ×2 (09:12→20:58)
[2023-07-19] MEDS: IPRATROPIUM-ALBUTEROL 3 ML NEB INHALATION SCH ×4 (09:12→20:58)
--- NOTE | 2023-07-19 10:52 | P.PN ---
Subjective This is a pleasant 63 years old male with multiple medical problems He is admitted with fluid overload and severe anasarca with severe bilateral pit ting leg edema and swelling, both legs are wrapped in a dressing for now. patient currently lying in bed flat with no dyspnea. No orthopnea. No chest pain. His evidence with decompensated liver cirrhosis with moderate ascites on ultrasound, this is a new diagnosis and I told the patient about it and he verbalized understanding and acceptance. I has evidence of pancytopenia and patient performed as well. He has evidence of anemia. And was diagnosed with diastolic CHF with ejection fraction 50-55% and COPD Fa[place]in exacerbation. Patient currently kept on IV Lasix 80 mg 3 times per day. Yesterday he has average urine output. [place] Cortef 20 mg the morning and 10 mg p.m. A small dose of metoprolol 12.5. And midodrine 10 mg. 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 He has low appetite and begins will be added Check labs tomorrow Objective - Vital Signs Vital signs: Vital Signs Temp 98.0 F 07/19/23 08:00 Pulse 84 07/19/23 08:00 Resp 16 07/19/23 08:00 BP 111/62 07/19/23 08:00 Pulse Ox 96 07/19/23 08:00 FiO2 21 07/05/23 09:14 Intake & Output 07/18/23 07/19/23 07/19/23 18:59 06:59 18:59 Intake Total 180 236 Output Total 325 900 Balance -145 -900 236 Intake: Oral 180 236 Output: Urine 325 900 Other: Voiding Method Indwelling Catheter Indwelling Catheter - Exam -GENERAL: The patient is alert and oriented x3, not in any acute distress. Well developed, well nourished. Patient this week and withdrawn HEENT: Pupils are round and equally reacting to light. EOMI. No scleral icterus. No conjunctival pallor. Normocephalic, atraumatic. No pharyngeal erythema. No thyromegaly. CARDIOVASCULAR: S1 and S2 present. No murmurs, rubs, or gallops. PULMONARY: Chest is clear to auscultation, no wheezing , no crackles. ABDOMEN: Soft, nontender, nondistended, normoactive bowel sounds. No palpable organomegaly. MUSCULOSKELETAL: No joint swelling or deformity. -EXTREMITIES: No cyanosis, clubbing, severe bilateral pitting leg edema . NEUROLOGICAL: Gross neurological examination did not reveal any focal deficits. SKIN: No rashes. no petechiae. - Labs CBC & Chem 7: 07/18/23 06:43 07/18/23 06:43 Labs: Abnormal Lab Results - Last 24 Hours (Table) 07/17/23 07/18/23 07/18/23 Range/Units 08:18 06:43 11:30 POC Glucose (mg/dL) 206 H (70-110) mg/dL Erythropoietin 39.98 H (2.00-30.00) mIU/mL Total Protein (PEP) 5.4 L (6.2-8.2) d/dL Albumin (PEP) 2.9 L (3.8-4.9) d/dL IgA 621.0 H (60.0-350.0) mg/dL 07/18/23 07/19/23 Range/Units 16:27 06:06 POC Glucose (mg/dL) 174 H 131 H (70-110) mg/dL Erythropoietin (2.00-30.00) mIU/mL Total Protein (PEP) (6.2-8.2) d/dL Albumin (PEP) (3.8-4.9) d/dL IgA (60.0-350.0) mg/dL Assessment and Plan Assessment: Fluids overload, with anasarca secondary to hepatorenal disease Consent liver cirrhosis with moderate ascites, new diagnosis, decompensated Pancytopenia Anemia of chronic disease Acute on chronic diastolic CHF with ejection fraction 50-55% Mitral regurgitation COPD with no exacerbation history of [place] disease Plan: Continue with IV Lasix 80 mg 3 times a day Nephrology, pulmonary and hematology oncology team on the case Made aware about his diagnosis of liver cirrhosis with recommendation to follow up as an outpatient with GI Dr. Lynch and patient agrees. Labs and medication were reviewed.. Continue same treatment. Continue with symptomatic treatment. Resume home medication. Monitor labs and vitals. DVT and GI prophylaxis. Further recommendations as per clinical course of the patient DVT prophylaxis: no Subcutaneous heparin for thrombocytopenia GI Prophylaxis: Pepcid PT/OT: Pending Prognosis is guarded
--- NOTE | 2023-07-19 11:02 | P.PN ---
Subjective Patient is seen in follow-up for acute kidney injury. Renal function fairly stable the last few days. Creatinine 2.01 yesterday. On IV Lasix. Urine output documented a 60 mL in the last 24 hours. Weight trending down. Denies chest pain or shortness of breath. Vital signs are stable. General: No acute distress. HEENT: Head exam is unremarkable. On room air. LUNGS: No audible rhonchi or wheezes. HEART: Rate and Rhythm are regular. ABDOMEN: Nontender. EXTREMITITES: 2+ edema. Lower extremity is wrapped. Objective - Vital Signs Vital signs: Vital Signs Temp 98.0 F 07/19/23 08:00 Pulse 84 07/19/23 08:00 Resp 16 07/19/23 08:00 BP 111/62 07/19/23 08:00 Pulse Ox 96 07/19/23 08:00 FiO2 21 07/05/23 09:14 Intake & Output 07/18/23 07/19/23 07/19/23 18:59 06:59 18:59 Intake Total 180 236 Output Total 325 900 Balance -145 -900 236 Intake: Oral 180 236 Output: Urine 325 900 Other: Voiding Method Indwelling Catheter Indwelling Catheter - Labs CBC & Chem 7: 07/18/23 06:43 07/18/23 06:43 Labs: Abnormal Lab Results - Last 24 Hours (Table) 07/17/23 07/18/23 07/18/23 Range/Units 08:18 06:43 11:30 POC Glucose (mg/dL) 206 H (70-110) mg/dL Erythropoietin 39.98 H (2.00-30.00) mIU/mL Total Protein (PEP) 5.4 L (6.2-8.2) d/dL Albumin (PEP) 2.9 L (3.8-4.9) d/dL IgA 621.0 H (60.0-350.0) mg/dL 07/18/23 07/19/23 Range/Units 16:27 06:06 POC Glucose (mg/dL) 174 H 131 H (70-110) mg/dL Erythropoietin (2.00-30.00) mIU/mL Total Protein (PEP) (6.2-8.2) d/dL Albumin (PEP) (3.8-4.9) d/dL IgA (60.0-350.0) mg/dL Assessment and Plan Plan: Assessment: 1. Acute kidney injury secondary to ATN secondary to hypotension, anemia. Also component of cardiorenal/hepatorenal syndrome. No proteinuria on UA. Creatin ine stable at 2.01 yesterday. Creatinine 0.7 dated February 06, 2023. 2. Volume overload. 3. Moderate mitral regurgitation. 4. Hypotension. Cortisol level on the lower side. On hydrocortisone. Consi soheila endocrinology evaluation outpatient for workup for adrenal insufficiency. 5. Hypervolemic hyponatremia. 6. Pancytopenia being followed by hematology. Iron replete. 7. Hyperkalemia secondary to acute kidney injury and acidosis. Questionable adrenal insufficiency. Resolved. Now hypokalemic from diuresis. 8. Urinary retention. Has Charles catheter. 9. Liver cirrhosis. 10. Acute blood loss anemia status post blood transfusion and DDAVP this admission. Hemoglobin stable at 9.0 yesterday. Plan: Maintain IV Lasix. Add metolazone. Avoid nephrotoxins. Continue to monitor renal function and urine output. Low-salt diet and 1500 mL fluid restriction. Maintain midodrine.
[2023-07-19 11:38] LABS: African American GFR (CKD) 40 (>60 ml/min/1.73 sqM); Anion Gap 7 mmol/L; Blood Urea Nitrogen 59 mg/dL (9-20); Calcium 7.3 mg/dL (8.4-10.2); Carbon Dioxide 29 mmol/L (22-30); Chloride 97 mmol/L (98-107); Glucose 153 mg/dL (74-99); Magnesium 1.8 mg/dL (1.6-2.3); Non-African American GFR(CKD) 34 (>60 ml/min/1.73 sqM); Potassium 3.6 mmol/L (3.5-5.1); Sodium 133 mmol/L (137-145)
[2023-07-19 12:01] LABS: Glucose,Whole Blood 149 mg/dL (70-110)
[2023-07-19] MEDS: MEGESTROL 400 MG/10 ML CUP PO SCH (13:19)
[2023-07-19] MEDS: metOLazone 5 MG TAB PO SCH (13:19)
--- NOTE | 2023-07-19 14:33 | P.PN ---
Subjective Progress Note Date: 07/19/23 COPD, shortness of breath, non-ST segment elevation myocardial infarction. On today's evaluation of 07/14/2023, the patient is being seen for a follow-up. The patient is calm and comfortable. The patient is currently on room air oxygen. No significant respiratory distress. Continues to have significant amount of edema lower extremity is bilaterally and the patient remains on a Lasix drip. Charles catheter is in place and the patient is a negative fluid balance. Labs from today shows a WBC count of 4.4, hematocrit is at 27.9, potassium level is at 3.4, BUN is at 60 with a creatinine of 2.08. Noted the renal function continues to improve. Potassium level needs to be replaced. The the continuous mining machine operator on the case. The patient remains on Symbicort as maintenance, DuoNeb updrafts, and the patient is also on Lasix drip which is running at 10 mg an hour. Doppler of the lower extremities showed no evidence of any DVTs. On today's evaluation of 07/16/2023, the patient doing well on a Lasix drip at 10 mg an hour with excellent urine output. There is ongoing improvement in the renal function and the lower extremity edema. BUN is at 59 with a creatinine of 1.8. Hemoglobin is stable at 8.7. No other new complaints otherwise for now. The patient is on room air oxygen. No fever. No chills. Hemodynamically stable. On today's evaluation of 07/17/2023, the patient remains on a Lasix drip at 10 mg an hour. No new complaints. The fluid balance is negative the patient has no respiratory complaints. The patient's echoes at 8 with a hemoglobin of 9.7, BUN 67 with a creatinine of 1.8 and a sodium level is at 132. Continues to have edema lower extremities bilaterally. No fever. No chills. No chest pain. No pleurisy. No hemoptysis. Tolerating diet. On today's evaluation of 07/18/2023, the patient is calm and comfortable. Continues to diurese with Lasix drip at 10 mg an hour. Continues to have significant amount of edema lower extremities reaching to his thighs. Charles catheter is in place. Urine output has been in the order of 1.6 L over the past 24 hours. His ear function remains stable with a creatinine of 2.0 which is essentially compatible to yesterday with a BUN of 57. Sodium levels of 133 and a potassium level is at 3.0 to be replaced. Hemoglobin is at 9.0 with a white cell count of 5.6. No other new complaints otherwise for now. His condition remained stable. 07/19/2023, the patient remains on Lasix 80 mg every 8 hours. The patient is re ceiving IV Lasix. The patient continues to have edema lower extremities. Fluid balance is negative at least 2 L since yesterday. The ends of 59 with a creatinine of 2.04. Sodium level is at 133. No respiratory difficulties. They down comfortably in bed. No fever or chills. No altered mentation. Objective - Vital Signs Vital signs: Vital Signs Temp 97.7 F 07/19/23 12:00 Pulse 84 07/19/23 12:44 Resp 16 07/19/23 12:44 BP 100/64 07/19/23 12:00 Pulse Ox 95 07/19/23 12:00 FiO2 21 07/05/23 09:14 Intake & Output 07/18/23 07/19/23 07/19/23 18:59 06:59 18:59 Intake Total 180 236 Output Total 325 900 Balance -145 -900 236 Weight 90.2 kg Intake: Oral 180 236 Output: Urine 325 900 Other: Voiding Method Indwelling Catheter Indwelling Catheter Indwelling Catheter - Labs CBC & Chem 7: 07/18/23 06:43 07/19/23 11:16 Labs: Abnormal Lab Results - Last 24 Hours (Table) 07/17/23 07/18/23 07/18/23 Range/Units 08:18 06:43 16:27 Sodium (137-145) mmol/L Chloride (98-107) mmol/L BUN (9-20) mg/dL Creatinine (0.66-1.25) mg/dL Glucose (74-99) mg/dL POC Glucose (mg/dL) 174 H (70-110) mg/dL Calcium (8.4-10.2) mg/dL Erythropoietin 39.98 H (2.00-30.00) mIU/mL Total Protein (PEP) 5.4 L (6.2-8.2) d/dL Albumin (PEP) 2.9 L (3.8-4.9) d/dL IgA 621.0 H (60.0-350.0) mg/dL 07/19/23 07/19/23 07/19/23 Range/Units 06:06 11:16 11:59 Sodium 133 L (137-145) mmol/L Chloride 97 L (98-107) mmol/L BUN 59 H (9-20) mg/dL Creatinine 2.04 H (0.66-1.25) mg/dL Glucose 153 H (74-99) mg/dL POC Glucose (mg/dL) 131 H 149 H (70-110) mg/dL Calcium 7.3 L (8.4-10.2) mg/dL Erythropoietin (2.00-30.00) mIU/mL Total Protein (PEP) (6.2-8.2) d/dL Albumin (PEP) (3.8-4.9) d/dL IgA (60.0-350.0) mg/dL Assessment and Plan Plan: Acute hypoxemic respiratory failure secondary to COPD exacerbation, stable and the patient is currently on room air oxygen. Present LV function with moderate degree of mitral regurgitation Non-anion gap metabolic acidosis, recovered Acute kidney injury, The renal function is improving and the creatinine is down to 2.08 the patient remains on Lasix at 10 mg an hour. The patient is producing adequate urine output. The patient continues to have increased edema lower extremities bilaterally. There were done yesterday showed no evidence of any DVT in the lower extremities bilaterally. Macrocytic anemia. Pancytopenia. History of alcohol abuse. Diabetes mellitus. Subclinical hypothyroidism. Chronic and ongoing tobacco dependence. Chronic low back pain. Probable adrenal insufficiency. Plan: Continue IV Lasix 80 mg every 8 hours Replaced the potassium, level is up to 3.6 Monitor fluid balance Monitor electrolytes and creatinine which is currently at 2.0 4 Continue bronchodilators Patient is on room air oxygen Rest of the medications were reviewed no other changes. Pulmonary standpoint. Continues to have signs of fluid overload Patient has been switched to oral hydrocortisone We'll continue to follow
[2023-07-19 16:11] LABS: Free Kappa Lt Chain Qnt, Serum 9.29 mg/dL (0.33-1.94); Free Lambda Lt Chain Qnt, Seru 9.07 mg/dL (0.57-2.63)
[2023-07-19 16:22] LABS: Glucose,Whole Blood 294 mg/dL (70-110)
[2023-07-19] MEDS: HYDROCORTISONE 10 MG TAB PO SCH (20:04)
[2023-07-19 20:11] LABS: Glucose,Whole Blood 200 mg/dL (70-110)
[2023-07-20 06:09] LABS: Glucose,Whole Blood 136 mg/dL (70-110)
[2023-07-20] MEDS: INSULIN ASPART (NovoLOG) 100 UNIT/ML VIAL SQ SCH ×5 (06:13→21:57)
[2023-07-20] MEDS: MIDODRINE 5 MG TAB PO SCH ×3 (06:15→17:04)
[2023-07-20] MEDS: HYDROcodone/APAP 7.5-325MG 1 EACH TAB PO PRN ×2 (06:19→21:02)
[2023-07-20 06:36] LABS: Anisocytosis Moderate; Basophils % (A) 0 %; Eosinophils % (A) 1 %; HGB 9.1 gm/dL (13.0-17.5); Lymphocytes # (A) 0.5 k/uL (1.0-4.8); Lymphocytes % (A) 12 %; MCH 36.4 pg (25.0-35.0); MCHC 33.8 g/dL (31.0-37.0); MCV 107.6 fL (80.0-100.0); Macrocytosis Marked; Mean Platelet Volume 10.8; Monocytes # (A) 0.1 k/uL (0-1.0); Monocytes % (A) 3 %; Neutrophils # (A) 3.6 k/uL (1.3-7.7); Neutrophils % (A) 84 %; RBC 2.51 m/uL (4.30-5.90); RDW 21.1 % (11.5-15.5); WBC 4.3 k/uL (3.8-10.6)
[2023-07-20 06:39] LABS: Platelet Count 38 k/uL (150-450)
[2023-07-20 06:46] LABS: African American GFR (CKD) 48 (>60 ml/min/1.73 sqM); Anion Gap 6 mmol/L; Blood Urea Nitrogen 56 mg/dL (9-20); Calcium 7.7 mg/dL (8.4-10.2); Carbon Dioxide 33 mmol/L (22-30); Chloride 96 mmol/L (98-107); Glucose 119 mg/dL (74-99); Magnesium 1.7 mg/dL (1.6-2.3); Non-African American GFR(CKD) 41 (>60 ml/min/1.73 sqM); Potassium 3.1 mmol/L (3.5-5.1); Sodium 135 mmol/L (137-145)
[2023-07-20] MEDS: SYMBICORT 160-4.5 MCG INHALER INHALATION SCH (07:22)
[2023-07-20] MEDS: IPRATROPIUM-ALBUTEROL 3 ML NEB INHALATION SCH ×4 (07:27→20:45)
[2023-07-20] MEDS: POTASSIUM CHLORIDE ER 20 MEQ TAB.ER PO SCH ×2 (07:50→21:04)
[2023-07-20] MEDS: THIAMINE 100 MG TAB PO SCH (07:50)
[2023-07-20] MEDS: FUROSEMIDE 10 MG/ML 10 ML VIAL IV SCH ×2 (07:50→17:04)
[2023-07-20] MEDS: FOLIC ACID 1 MG TAB PO SCH (07:50)
[2023-07-20] MEDS: CHOLECALCIFEROL 25 MCG (1000 IU) TABLET PO SCH (07:50)
[2023-07-20] MEDS: FAMOTIDINE 20 MG TAB PO SCH (07:50)
[2023-07-20] MEDS: METOPROLOL TARTRATE 12.5 MG TAB PO SCH ×2 (07:51→21:04)
[2023-07-20] MEDS: HYDROCORTISONE 20 MG TAB PO SCH (07:51)
[2023-07-20] MEDS: metOLazone 5 MG TAB PO SCH (07:51)
[2023-07-20] MEDS: MEGESTROL 400 MG/10 ML CUP PO SCH (07:51)
[2023-07-20] MEDS: LIDOCAINE 5% PATCH TOPICAL SCH (07:54)
[2023-07-20] MEDS: NYSTATIN 100,000 UNIT/GM POWD 15 GM TOPICAL SCH ×2 (07:57→21:04)
--- NOTE | 2023-07-20 10:16 | P.PN ---
Subjective This is a pleasant 63 years old male with multiple medical problems He is admitted with fluid overload and severe anasarca with severe bilateral pit ting leg edema and swelling, both legs are wrapped in a dressing for now. patient currently lying in bed flat with no dyspnea. No orthopnea. No chest pain. His evidence with decompensated liver cirrhosis with moderate ascites on ultrasound, this is a new diagnosis and I told the patient about it and he verbalized understanding and acceptance. I has evidence of pancytopenia and patient performed as well. He has evidence of anemia. And was diagnosed with diastolic CHF with ejection fraction 50-55% and COPD Faustin exacerbation. Patient currently kept on IV Lasix 80 mg 3 times per day. Yesterday he has average urine output. [place] Cortef 20 mg the morning and 10 mg p.m. A small dose of metoprolol 12.5. And midodrine 10 mg. Followed closely by pulmonary, hematology/oncology and railroad cook. He has low appetite and begins will be added Check labs tomorrow 07/20/2023 Patient is clinically looks the same as yesterday. Lying in bed. With significant fluid overload and bilateral leg edema with a dressing in a Place his creatinine improved down to 1.7 today. He still has anemia with hemoglobin 9.1 and low platelet count 38, currently not on aspirin or blood thinner. He is on IV Lasix 80 mg every 8 hours and metolazone 5 g daily and eviscerated. Objective - Vital Signs Vital signs: Vital Signs Temp 97.7 F 07/20/23 07:45 Pulse 58 L 07/20/23 07:45 Resp 16 07/20/23 07:45 BP 104/64 07/20/23 07:45 Pulse Ox 93 L 07/20/23 07:45 FiO2 21 07/05/23 09:14 Intake & Output 07/19/23 07/20/23 07/20/23 18:59 06:59 18:59 Intake Total 354 540 480 Output Total 450 1570 Balance -96 -1030 480 Weight 90.2 kg 89.5 kg Intake: Oral 354 540 480 Output: Urine 450 1570 Other: Voiding Method Indwelling Catheter Indwelling Catheter - Exam -GENERAL: The patient is alert and oriented x3, not in any acute distress. Well developed, well nourished. Patient this week and withdrawn HEENT: Pupils are round and equally reacting to light. EOMI. No scleral icterus. No conjunctival pallor. Normocephalic, atraumatic. No pharyngeal erythema. No thyromegaly. CARDIOVASCULAR: S1 and S2 present. No murmurs, rubs, or gallops. PULMONARY: Chest is clear to auscultation, no wheezing , no crackles. ABDOMEN: Soft, nontender, nondistended, normoactive bowel sounds. No palpable organomegaly. MUSCULOSKELETAL: No joint swelling or deformity. -EXTREMITIES: No cyanosis, clubbing, severe bilateral pitting leg edema . NEUROLOGICAL: Gross neurological examination did not reveal any focal deficits. SKIN: No rashes. no petechiae. - Labs CBC & Chem 7: 07/20/23 06:23 07/20/23 06:23 Labs: Abnormal Lab Results - Last 24 Hours (Table) 07/18/23 07/19/23 07/19/23 Range/Units 06:43 11:16 11:59 RBC (4.30-5.90) m/uL Hgb (13.0-17.5) gm/dL Hct (39.0-53.0) % MCV (80.0-100.0) fL MCH (25.0-35.0) pg RDW (11.5-15.5) % Plt Count (150-450) k/uL Lymphocytes # (1.0-4.8) k/uL Macrocytosis Sodium 133 L (137-145) mmol/L Potassium (3.5-5.1) mmol/L Chloride 97 L (98-107) mmol/L Carbon Dioxide (22-30) mmol/L BUN 59 H (9-20) mg/dL Creatinine 2.04 H (0.66-1.25) mg/dL Glucose 153 H (74-99) mg/dL POC Glucose (mg/dL) 149 H (70-110) mg/dL Calcium 7.3 L (8.4-10.2) mg/dL Free [place] LC, Quant 9.29 H (0.33-1.94) mg/dL Free Lambda LC, Quant 9.07 H (0.57-2.63) mg/dL 07/19/23 07/19/23 07/20/23 Range/Units 16:20 20:09 06:03 RBC (4.30-5.90) m/uL Hgb (13.0-17.5) gm/dL Hct (39.0-53.0) % MCV (80.0-100.0) fL MCH (25.0-35.0) pg RDW (11.5-15.5) % Plt Count (150-450) k/uL Lymphocytes # (1.0-4.8) k/uL Macrocytosis Sodium (137-145) mmol/L Potassium (3.5-5.1) mmol/L Chloride (98-107) mmol/L Carbon Dioxide (22-30) mmol/L BUN (9-20) mg/dL Creatinine (0.66-1.25) mg/dL Glucose (74-99) mg/dL POC Glucose (mg/dL) 294 H 200 H 136 H (70-110) mg/dL Calcium (8.4-10.2) mg/dL Free [place] LC, Quant (0.33-1.94) mg/dL Free [place]ambda LC, Quant (0.57-2.63) mg/dL 07/20/23 07/20/23 Range/Units 06:23 06:23 RBC 2.51 L (4.30-5.90) m/uL Hgb 9.1 L (13.0-17.5) gm/dL Hct 27.0 L (39.0-53.0) % MCV 107.6 H (80.0-100.0) fL MCH 36.4 H (25.0-35.0) pg RDW 21.1 H (11.5-15.5) % Plt Count 38 L (150-450) k/uL Lymphocytes # 0.5 L (1.0-4.8) k/uL Macrocytosis Marked A Sodium 135 L (137-145) mmol/L Potassium 3.1 L (3.5-5.1) mmol/L Chloride 96 L (98-107) mmol/L Carbon Dioxide 33 H (22-30) mmol/L BUN 56 H (9-20) mg/dL Creatinine 1.75 H (0.66-1.25) mg/dL Glucose 119 H (74-99) mg/dL POC Glucose (mg/dL) (70-110) mg/dL Calcium 7.7 L (8.4-10.2) mg/dL Free [place] LC, Quant (0.33-1.94) mg/dL Free [place]ambda LC, Quant (0.57-2.63) mg/dL Assessment and Plan Assessment: Fluids overload, with anasarca secondary to hepatorenal disease Consent liver cirrhosis with moderate ascites, new diagnosis, decompensated Pancytopenia Anemia of chronic disease Acute on chronic diastolic CHF with ejection fraction 50-55% Mitral regurgitation COPD with no exacerbation history of [place] disease Plan: Continue with IV Lasix 80 mg 3 times a day Nephrology, pulmonary and hematology oncology team on the case Made aware about his diagnosis of liver cirrhosis with recommendation to follow up as an outpatient with GI Dr. Lynch and patient agrees. Labs and medication were reviewed.. Continue same treatment. Continue with symptomatic treatment. Resume home medication. Monitor labs and vitals. DVT and GI prophylaxis. Further recommendations as per clinical course of the patient DVT prophylaxis: no Subcutaneous heparin for thrombocytopenia GI Prophylaxis: Pepcid PT/OT: Pending Prognosis is guarded
--- NOTE | 2023-07-20 11:28 | P.PN ---
Subjective Progress Note Date: 07/20/23 COPD, shortness of breath, non-ST segment elevation myocardial infarction. On today's evaluation of 07/14/2023, the patient is being seen for a follow-up. The patient is calm and comfortable. The patient is currently on room air oxygen. No significant respiratory distress. Continues to have significant amount of edema lower extremity is bilaterally and the patient remains on a Lasix drip. Charles catheter is in place and the patient is a negative fluid balance. Labs from today shows a WBC count of 4.4, hematocrit is at 27.9, potassium level is at 3.4, BUN is at 60 with a creatinine of 2.08. Noted the renal function continues to improve. Potassium level needs to be replaced. The the l d rn on the case. The patient remains on Symbicort as maintenance, DuoNeb updrafts, and the patient is also on Lasix drip which is running at 10 mg an hour. Doppler of the lower extremities showed no evidence of any DVTs. On today's evaluation of 07/16/2023, the patient doing well on a Lasix drip at 10 mg an hour with excellent urine output. There is ongoing improvement in the renal function and the lower extremity edema. BUN is at 59 with a creatinine of 1.8. Hemoglobin is stable at 8.7. No other new complaints otherwise for now. The patient is on room air oxygen. No fever. No chills. Hemodynamically stable. On today's evaluation of 07/17/2023, the patient remains on a Lasix drip at 10 mg an hour. No new complaints. The fluid balance is negative the patient has no respiratory complaints. The patient's echoes at 8 with a hemoglobin of 9.7, BUN 67 with a creatinine of 1.8 and a sodium level is at 132. Continues to have edema lower extremities bilaterally. No fever. No chills. No chest pain. No pleurisy. No hemoptysis. Tolerating diet. On today's evaluation of 07/18/2023, the patient is calm and comfortable. Continues to diurese with Lasix drip at 10 mg an hour. Continues to have significant amount of edema lower extremities reaching to his thighs. Charles catheter is in place. Urine output has been in the order of 1.6 L over the past 24 hours. His ear function remains stable with a creatinine of 2.0 which is essentially compatible to yesterday with a BUN of 57. Sodium levels of 133 and a potassium level is at 3.0 to be replaced. Hemoglobin is at 9.0 with a white cell count of 5.6. No other new complaints otherwise for now. His condition remained stable. 07/19/2023, the patient remains on Lasix 80 mg every 8 hours. The patient is re ceiving IV Lasix. The patient continues to have edema lower extremities. Fluid balance is negative at least 2 L since yesterday. The ends of 59 with a creatinine of 2.04. Sodium level is at 133. No respiratory difficulties. They down comfortably in bed. No fever or chills. No altered mentation. 07/20/2023, the patient is doing well. Resting comfortably in bed. Remain on Lasix 80 mg IV every 8 hours. Remains in negative fluid balance. Creatinine is down to 1.7. No other significant events overnight. Sodium level is at 135, potassium levels at 3. [address] white suppositive 4.3 with a hemoglobin of 9.1. Utility Clerk on the case. The patient remains on room air oxygen. Objective - Vital Signs Vital signs: Vital Signs Temp 97.7 F 07/20/23 07:45 Pulse 58 L 07/20/23 07:45 Resp 16 07/20/23 07:45 BP 104/64 07/20/23 07:45 Pulse Ox 93 L 07/20/23 07:45 FiO2 21 07/05/23 09:14 Intake & Output 07/19/23 07/20/23 07/20/23 18:59 06:59 18:59 Intake Total 354 540 480 Output Total 450 1570 Balance -96 -1030 480 Weight 90.2 kg 89.5 kg Intake: Oral 354 540 480 Output: Urine 450 1570 Other: Voiding Method Indwelling Catheter Indwelling Catheter Indwelling Catheter - Labs CBC & Chem 7: 07/20/23 06:23 07/20/23 06:23 Labs: Abnormal Lab Results - Last 24 Hours (Table) 07/18/23 07/19/23 07/19/23 Range/Units 06:43 11:16 11:59 RBC (4.30-5.90) m/uL Hgb (13.0-17.5) gm/dL Hct (39.0-53.0) % MCV (80.0-100.0) fL MCH (25.0-35.0) pg RDW (11.5-15.5) % Plt Count (150-450) k/uL Lymphocytes # (1.0-4.8) k/uL Macrocytosis Sodium 133 L (137-145) mmol/L Potassium (3.5-5.1) mmol/L Chloride 97 L (98-107) mmol/L Carbon Dioxide (22-30) mmol/L BUN 59 H (9-20) mg/dL Creatinine 2.04 H (0.66-1.25) mg/dL Glucose 153 H (74-99) mg/dL POC Glucose (mg/dL) 149 H (70-110) mg/dL Calcium 7.3 L (8.4-10.2) mg/dL Free [place] LC, Quant 9.29 H (0.33-1.94) mg/dL Free [place] LC, Quant 9.07 H (0.57-2.63) mg/dL 07/19/23 07/19/23 07/20/23 Range/Units 16:20 20:09 06:03 RBC (4.30-5.90) m/uL Hgb (13.0-17.5) gm/dL Hct (39.0-53.0) % MCV (80.0-100.0) fL MCH (25.0-35.0) pg RDW (11.5-15.5) % Plt Count (150-450) k/uL Lymphocytes # (1.0-4.8) k/uL Macrocytosis Sodium (137-145) mmol/L Potassium (3.5-5.1) mmol/L Chloride (98-107) mmol/L Carbon Dioxide (22-30) mmol/L BUN (9-20) mg/dL Creatinine (0.66-1.25) mg/dL Glucose (74-99) mg/dL POC Glucose (mg/dL) 294 H 200 H 136 H (70-110) mg/dL Calcium (8.4-10.2) mg/dL Free [place] LC, Quant (0.33-1.94) mg/dL Free [place] LC, Quant (0.57-2.63) mg/dL 07/20/23 07/20/23 Range/Units 06:23 06:23 RBC 2.51 L (4.30-5.90) m/uL Hgb 9.1 L (13.0-17.5) gm/dL Hct 27.0 L (39.0-53.0) % MCV 107.6 H (80.0-100.0) fL MCH 36.4 H (25.0-35.0) pg RDW 21.1 H (11.5-15.5) % Plt Count 38 L (150-450) k/uL Lymphocytes # 0.5 L (1.0-4.8) k/uL Macrocytosis Marked A Sodium 135 L (137-145) mmol/L Potassium 3.1 L (3.5-5.1) mmol/L Chloride 96 L (98-107) mmol/L Carbon Dioxide 33 H (22-30) mmol/L BUN 56 H (9-20) mg/dL Creatinine 1.75 H (0.66-1.25) mg/dL Glucose 119 H (74-99) mg/dL POC Glucose (mg/dL) (70-110) mg/dL Calcium 7.7 L (8.4-10.2) mg/dL Free [place] LC, Quant (0.33-1.94) mg/dL Free [place] LC, Quant (0.57-2.63) mg/dL Assessment and Plan Plan: Acute hypoxemic respiratory failure secondary to COPD exacerbation, stable and the patient is currently on room air oxygen. Present LV function with moderate degree of mitral regurgitation Non-anion gap metabolic acidosis, recovered Acute kidney injury, The renal function is improving and the creatinine is down to 2.08 the patient remains on Lasix at 10 mg an hour. The patient is producing adequate urine output. The patient continues to have increased edema lower extremities bilaterally. There were done yesterday showed no evidence of any DVT in the lower extremities bilaterally. Macrocytic anemia. Pancytopenia. History of alcohol abuse. Diabetes mellitus. Subclinical hypothyroidism. Chronic and ongoing tobacco dependence. Chronic low back pain. Probable adrenal insufficiency. Plan: Creatinine is improved compared to yesterday. Will continue diuretics. Continue IV Lasix 80 mg every 8 hours Replaced the potassium Monitor fluid balance Continue bronchodilators Patient is on room air oxygen Rest of the medications were reviewed no other changes. Pulmonary standpoint. Continues to have signs of fluid overload Patient has been switched to oral hydrocortisone We'll continue to follow
[2023-07-20 11:37] LABS: Glucose,Whole Blood 307 mg/dL (70-110)
[2023-07-20 16:12] LABS: Glucose,Whole Blood 256 mg/dL (70-110)
--- NOTE | 2023-07-20 16:16 | P.PN ---
Subjective Progress Note Date: 07/20/23 Follow-up for acute kidney injury. Urine output of 2 L in the last 24 hours. Objective - Vital Signs Vital signs: Vital Signs Temp 97.9 F 07/20/23 12:00 Pulse 71 07/20/23 12:00 Resp 17 07/20/23 12:00 BP 87/49 07/20/23 12:00 Pulse Ox 93 L 07/20/23 12:00 FiO2 21 07/05/23 09:14 Intake & Output 07/19/23 07/20/23 07/20/23 18:59 06:59 18:59 Intake Total 354 540 480 Output Total 450 1570 Balance -96 -1030 480 Weight 90.2 kg 89.5 kg Intake: Oral 354 540 480 Output: Urine 450 1570 Other: Voiding Method Indwelling Catheter Indwelling Catheter Indwelling Catheter # Bowel Movements 1 - Exam No acute distress S1-S2 heard Decreased breath sounds Abdomen soft Edema - Labs CBC & Chem 7: 07/20/23 06:23 07/20/23 06:23 Labs: Abnormal Lab Results - Last 24 Hours (Table) 07/19/23 07/19/23 07/20/23 Range/Units 16:20 20:09 06:03 RBC (4.30-5.90) m/uL Hgb (13.0-17.5) gm/dL Hct (39.0-53.0) % MCV (80.0-100.0) fL MCH (25.0-35.0) pg RDW (11.5-15.5) % Plt Count (150-450) k/uL Lymphocytes # (1.0-4.8) k/uL Macrocytosis Sodium (137-145) mmol/L Potassium (3.5-5.1) mmol/L Chloride (98-107) mmol/L Carbon Dioxide (22-30) mmol/L BUN (9-20) mg/dL Creatinine (0.66-1.25) mg/dL Glucose (74-99) mg/dL POC Glucose (mg/dL) 294 H 200 H 136 H (70-110) mg/dL Calcium (8.4-10.2) mg/dL 07/20/23 07/20/23 07/20/23 Range/Units 06:23 06:23 11:32 RBC 2.51 L (4.30-5.90) m/uL Hgb 9.1 L (13.0-17.5) gm/dL Hct 27.0 L (39.0-53.0) % MCV 107.6 H (80.0-100.0) fL MCH 36.4 H (25.0-35.0) pg RDW 21.1 H (11.5-15.5) % Plt Count 38 L (150-450) k/uL Lymphocytes # 0.5 L (1.0-4.8) k/uL Macrocytosis Marked A Sodium 135 L (137-145) mmol/L Potassium 3.1 L (3.5-5.1) mmol/L Chloride 96 L (98-107) mmol/L Carbon Dioxide 33 H (22-30) mmol/L BUN 56 H (9-20) mg/dL Creatinine 1.75 H (0.66-1.25) mg/dL Glucose 119 H (74-99) mg/dL POC Glucose (mg/dL) 307 H (70-110) mg/dL Calcium 7.7 L (8.4-10.2) mg/dL 07/20/23 Range/Units 16:11 RBC (4.30-5.90) m/uL Hgb (13.0-17.5) gm/dL Hct (39.0-53.0) % MCV (80.0-100.0) fL MCH (25.0-35.0) pg RDW (11.5-15.5) % Plt Count (150-450) k/uL Lymphocytes # (1.0-4.8) k/uL Macrocytosis Sodium (137-145) mmol/L Potassium (3.5-5.1) mmol/L Chloride (98-107) mmol/L Carbon Dioxide (22-30) mmol/L BUN (9-20) mg/dL Creatinine (0.66-1.25) mg/dL Glucose (74-99) mg/dL POC Glucose (mg/dL) 256 H (70-110) mg/dL Calcium (8.4-10.2) mg/dL Assessment and Plan Assessment: #1 acute kidney injury secondary to hemodynamic ATN -CRS is a differential. -Baseline creatinine 0.7 MG per DL. #2 hypotension. #3 volume overload #4 urinary retention status post Charles #5 liver cirrhosis Plan: #1 renal function stable and improving. #2 on midodrine for hemodynamic support. #3 change IV Lasix to by mouth torsemide from tomorrow.
[2023-07-20 20:16] LABS: Glucose,Whole Blood 178 mg/dL (70-110)
[2023-07-20] MEDS: HYDROCORTISONE 10 MG TAB PO SCH (22:00)
[2023-07-21] MEDS: HYDROcodone/APAP 7.5-325MG 1 EACH TAB PO PRN ×3 (02:44→20:27)
[2023-07-21] MEDS: FUROSEMIDE 10 MG/ML 10 ML VIAL IV SCH ×3 (02:44→16:24)
[2023-07-21 06:04] LABS: Glucose,Whole Blood 131 mg/dL (70-110)
[2023-07-21] MEDS: INSULIN ASPART (NovoLOG) 100 UNIT/ML VIAL SQ SCH ×4 (06:14→20:28)
[2023-07-21] MEDS: traMADol 50 MG TAB PO PRN ×2 (06:21→16:24)
[2023-07-21] MEDS: MIDODRINE 5 MG TAB PO SCH ×3 (06:22→16:24)
[2023-07-21] MEDS: LIDOCAINE 5% PATCH TOPICAL SCH (07:29)
[2023-07-21] MEDS: POTASSIUM CHLORIDE ER 20 MEQ TAB.ER PO SCH ×2 (07:29→20:28)
[2023-07-21] MEDS: METOPROLOL TARTRATE 12.5 MG TAB PO SCH ×2 (07:29→20:28)
[2023-07-21] MEDS: FOLIC ACID 1 MG TAB PO SCH (07:29)
[2023-07-21] MEDS: CHOLECALCIFEROL 25 MCG (1000 IU) TABLET PO SCH (07:29)
[2023-07-21] MEDS: FAMOTIDINE 20 MG TAB PO SCH (07:29)
[2023-07-21] MEDS: THIAMINE 100 MG TAB PO SCH (07:29)
[2023-07-21] MEDS: MEGESTROL 400 MG/10 ML CUP PO SCH (07:30)
[2023-07-21] MEDS: HYDROCORTISONE 10 MG TAB PO SCH (07:30)
[2023-07-21] MEDS: metOLazone 5 MG TAB PO SCH (07:30)
[2023-07-21] MEDS: HYDROCORTISONE 20 MG TAB PO SCH (07:31)
[2023-07-21] MEDS: SYMBICORT 160-4.5 MCG INHALER INHALATION SCH ×2 (08:00→21:30)
[2023-07-21] MEDS: IPRATROPIUM-ALBUTEROL 3 ML NEB INHALATION SCH ×4 (08:00→21:31)
--- NOTE | 2023-07-21 09:17 | P.PN ---
Subjective This is a pleasant 63 years old male with multiple medical problems He is admitted with fluid overload and severe anasarca with severe bilateral pit ting leg edema and swelling, both legs are wrapped in a dressing for now. patient currently lying in bed flat with no dyspnea. No orthopnea. No chest pain. His evidence with decompensated liver cirrhosis with moderate ascites on ultrasound, this is a new diagnosis and I told the patient about it and he verbalized understanding and acceptance. I has evidence of pancytopenia and patient performed as well. He has evidence of anemia. And was diagnosed with diastolic CHF with ejection fraction 50-55% and COPD Faustin exacerbation. Patient currently kept on IV Lasix 80 mg 3 times per day. Yesterday he has average urine output. [place] Cortef 20 mg the morning and 10 mg p.m. A small dose of metoprolol 12.5. And midodrine 10 mg. Followed closely by pulmonary, hematology/oncology and air traffic control operator. He has low appetite and begins will be added Check labs tomorrow 07/20/2023 Patient is clinically looks the same as yesterday. Lying in bed. With significant fluid overload and bilateral leg edema with a dressing in a Place his creatinine improved down to 1.7 today. He still has anemia with hemoglobin 9.1 and low platelet count 38, currently not on aspirin or blood thinner. He is on IV Lasix 80 mg every 8 hours and metolazone 5 g daily and eviscerated. 07/21/2023 Patient feels improvement, he is able to sit in his bed on the site of the bit today. History of have significant bilateral leg swelling with Eduardo wrap in place on both legs. He had to straight cath is better for 200 mL yesterday. We'll keep monitoring Labs from today pending Patient is about is his diagnosis of liver cirrhosis, consult GI tomorrow, no GI and this facilitated this weekend. He remains on IV Lasix 80 mg 3 times a day and metolazone 5 mg daily with apparent change Lasix and 2 torsemide today Objective - Vital Signs Vital signs: Vital Signs Temp 97.6 F 07/21/23 07:25 Pulse 50 L 07/21/23 07:25 Resp 17 07/21/23 07:25 BP 104/71 07/21/23 07:25 Pulse Ox 93 L 07/21/23 07:25 FiO2 21 07/05/23 09:14 Intake & Output 07/20/23 07/21/23 07/21/23 18:59 06:59 18:59 Intake Total 598 Output Total 950 Balance -352 Weight 89.7 kg Intake: Oral 598 Output: Urine 950 Other: Voiding Method Indwelling Catheter # Voids 1 # Bowel Movements 1 1 - Exam -GENERAL: The patient is alert and oriented x3, not in any acute distress. Well developed, well nourished. Patient this week and withdrawn HEENT: Pupils are round and equally reacting to light. EOMI. No scleral icterus. No conjunctival pallor. Normocephalic, atraumatic. No pharyngeal erythema. No thyromegaly. CARDIOVASCULAR: S1 and S2 present. No murmurs, rubs, or gallops. PULMONARY: Chest is clear to auscultation, no wheezing , no crackles. ABDOMEN: Soft, nontender, nondistended, normoactive bowel sounds. No palpable organomegaly. MUSCULOSKELETAL: No joint swelling or deformity. -EXTREMITIES: No cyanosis, clubbing, severe bilateral pitting leg edema . NEUROLOGICAL: Gross neurological examination did not reveal any focal deficits. SKIN: No rashes. no petechiae. - Labs CBC & Chem 7: 07/20/23 06:23 07/20/23 06:23 Labs: Abnormal Lab Results - Last 24 Hours (Table) 07/18/23 07/20/23 07/20/23 Range/Units 06:43 11:32 16:11 POC Glucose (mg/dL) 307 H 256 H (70-110) mg/dL [id number] 0.42 L (0.60-1.00) d/dL 07/20/23 07/21/23 Range/Units 20:13 06:03 POC Glucose (mg/dL) 178 H 131 H (70-110) mg/dL [id number] (0.60-1.00) d/dL Assessment and Plan Assessment: Fluids overload, with anasarca secondary to hepatorenal disease Consent liver cirrhosis with moderate ascites, new diagnosis, decompensated Pancytopenia Anemia of chronic disease Acute on chronic diastolic CHF with ejection fraction 50-55% Mitral regurgitation COPD with no exacerbation history of [place] disease Plan: Continue with IV Lasix 80 mg 3 times a day Nephrology, pulmonary and hematology oncology team on the case Made aware about his diagnosis of liver cirrhosis with recommendation to follow up as an outpatient with GI Dr. Lynch and patient agrees. Labs and medication were reviewed.. Continue same treatment. Continue with symptomatic treatment. Resume home medication. Monitor labs and vitals. DVT and GI prophylaxis. Further recommendations as per clinical course of the patient DVT prophylaxis: no Subcutaneous heparin for thrombocytopenia GI Prophylaxis: Pepcid PT/OT: Pending Prognosis is guarded
[2023-07-21 10:31] LABS: African American GFR (CKD) 45 (>60 ml/min/1.73 sqM); Anion Gap 9 mmol/L; Blood Urea Nitrogen 53 mg/dL (9-20); Calcium 7.6 mg/dL (8.4-10.2); Carbon Dioxide 32 mmol/L (22-30); Chloride 93 mmol/L (98-107); Glucose 163 mg/dL (74-99); Non-African American GFR(CKD) 39 (>60 ml/min/1.73 sqM); Sodium 134 mmol/L (137-145)
[2023-07-21 10:35] LABS: Anisocytosis Moderate; Basophils % (A) 0 %; Eosinophils % (A) 1 %; HCT 27.2 % (39.0-53.0); Hypochromasia Slight; Lymphocytes # (A) 0.5 k/uL (1.0-4.8); Lymphocytes % (A) 11 %; MCH 36.2 pg (25.0-35.0); MCHC 33.1 g/dL (31.0-37.0); MCV 109.3 fL (80.0-100.0); Macrocytosis Marked; Mean Platelet Volume 11.2; Monocytes # (A) 0.1 k/uL (0-1.0); Monocytes % (A) 3 %; Neutrophils # (A) 3.7 k/uL (1.3-7.7); Neutrophils % (A) 85 %; RBC 2.49 m/uL (4.30-5.90); RDW 21.2 % (11.5-15.5); WBC 4.3 k/uL (3.8-10.6)
[2023-07-21 10:37] LABS: Platelet Count 37 k/uL (150-450)
[2023-07-21] MEDS: NYSTATIN 100,000 UNIT/GM POWD 15 GM TOPICAL SCH ×2 (11:07→20:28)
[2023-07-21 11:37] LABS: Glucose,Whole Blood 184 mg/dL (70-110)
--- NOTE | 2023-07-21 11:57 | P.PN ---
Subjective Progress Note Date: 07/21/23 COPD, shortness of breath, non-ST segment elevation myocardial infarction. On today's evaluation of 07/14/2023, the patient is being seen for a follow-up. The patient is calm and comfortable. The patient is currently on room air oxygen. No significant respiratory distress. Continues to have significant amount of edema lower extremity is bilaterally and the patient remains on a Lasix drip. Charles catheter is in place and the patient is a negative fluid balance. Labs from today shows a WBC count of 4.4, hematocrit is at 27.9, potassium level is at 3.4, BUN is at 60 with a creatinine of 2.08. Noted the renal function continues to improve. Potassium level needs to be replaced. The the toilet products molder on the case. The patient remains on Symbicort as maintenance, DuoNeb updrafts, and the patient is also on Lasix drip which is running at 10 mg an hour. Doppler of the lower extremities showed no evidence of any DVTs. On today's evaluation of 07/16/2023, the patient doing well on a Lasix drip at 10 mg an hour with excellent urine output. There is ongoing improvement in the renal function and the lower extremity edema. BUN is at 59 with a creatinine of 1.8. Hemoglobin is stable at 8.7. No other new complaints otherwise for now. The patient is on room air oxygen. No fever. No chills. Hemodynamically stable. On today's evaluation of 07/17/2023, the patient remains on a Lasix drip at 10 mg an hour. No new complaints. The fluid balance is negative the patient has no respiratory complaints. The patient's echoes at 8 with a hemoglobin of 9.7, BUN 67 with a creatinine of 1.8 and a sodium level is at 132. Continues to have edema lower extremities bilaterally. No fever. No chills. No chest pain. No pleurisy. No hemoptysis. Tolerating diet. On today's evaluation of 07/18/2023, the patient is calm and comfortable. Continues to diurese with Lasix drip at 10 mg an hour. Continues to have significant amount of edema lower extremities reaching to his thighs. Charles catheter is in place. Urine output has been in the order of 1.6 L over the past 24 hours. His ear function remains stable with a creatinine of 2.0 which is essentially compatible to yesterday with a BUN of 57. Sodium levels of 133 and a potassium level is at 3.0 to be replaced. Hemoglobin is at 9.0 with a white cell count of 5.6. No other new complaints otherwise for now. His condition remained stable. 07/19/2023, the patient remains on Lasix 80 mg every 8 hours. The patient is re ceiving IV Lasix. The patient continues to have edema lower extremities. Fluid balance is negative at least 2 L since yesterday. The ends of 59 with a creatinine of 2.04. Sodium level is at 133. No respiratory difficulties. They down comfortably in bed. No fever or chills. No altered mentation. 07/20/2023, the patient is doing well. Resting comfortably in bed. Remain on Lasix 80 mg IV every 8 hours. Remains in negative fluid balance. Creatinine is down to 1.7. No other significant events overnight. Sodium level is at 135, potassium levels at 3. [address] white suppositive 4.3 with a hemoglobin of 9.1. Fur Examiner on the case. The patient remains on room air oxygen. 07/21/2023, no new complaints and the patient remains on Lasix 80 mg IV every 8 hours. Room air oxygen. No respiratory difficulties. Continues to have extensive edema lower extremities bilaterally despite adequate diuresis over the past 1 week. The fluid balance is negative. Charles catheter is removed. No labs from today. Objective - Vital Signs Vital signs: Vital Signs Temp 97.6 F 07/21/23 07:25 Pulse 50 L 07/21/23 07:25 Resp 17 07/21/23 07:25 BP 104/71 07/21/23 07:25 Pulse Ox 93 L 07/21/23 07:25 FiO2 21 07/05/23 09:14 Intake & Output 07/20/23 07/21/23 07/21/23 18:59 06:59 18:59 Intake Total 598 Output Total 950 Balance -352 Weight 89.7 kg Intake: Oral 598 Output: Urine 950 Other: Voiding Method Indwelling Catheter Indwelling Catheter # Voids 1 # Bowel Movements 1 1 - Exam No acute distress, oriented 3. The patient's currently on room air. No respiratory distress. HEENT examination is grossly unremarkable. Mucous membranes are moist. No oral lesions. Neck supple. Full range of motion. No adenopathy thyromegaly or neck vein distention. Cardiovascular examination reveals regular rhythm rate. S1-S2 normal. No S3 or S4. No discernible murmur noted. Heart rate 91 bpm. Lungs reveal mostly clear breath sounds. Scattered rhonchi. No wheezes or crackles. Room air saturation is 93 %. Abdomen soft bowel sounds are heard. No masses or tenderness. Extremities are intact. No cyanosis or clubbing. The patient has significant pitting edema in the lower extremities. Skin is without rash. Multiple areas of ecchymoses. Neurologic examination is brief but nonfocal. - Labs CBC & Chem 7: 07/21/23 08:39 07/21/23 08:39 Labs: Abnormal Lab Results - Last 24 Hours (Table) 07/18/23 07/20/23 07/20/23 Range/Units 06:43 11:32 16:11 POC Glucose (mg/dL) 307 H 256 H (70-110) mg/dL Ohtob-6-Xazkmhaze 0.42 L (0.60-1.00) d/dL 07/20/23 07/21/23 Range/Units 20:13 06:03 POC Glucose (mg/dL) 178 H 131 H (70-110) mg/dL Styid-6-Mksnljyim (0.60-1.00) d/dL Assessment and Plan Plan: Acute hypoxemic respiratory failure secondary to COPD exacerbation, stable and the patient is currently on room air oxygen. Present LV function with moderate degree of mitral regurgitation Non-anion gap metabolic acidosis, recovered Acute kidney injury, The renal function is improving and the creatinine is down to 2.08 the patient remains on Lasix at 10 mg an hour. The patient is producing adequate urine output. The patient continues to have increased edema lower extremities bilaterally. There were done yesterday showed no evidence of any DVT in the lower extremities bilaterally. Macrocytic anemia. Pancytopenia. History of alcohol abuse. Diabetes mellitus. Subclinical hypothyroidism. Chronic and ongoing tobacco dependence. Chronic low back pain. Probable adrenal insufficiency. Plan: Continue diuretics Continue IV Lasix 80 mg every 8 hours Awaiting labs from today Replaced the potassium Continue bronchodilators Patient is on room air oxygen Rest of the medications were reviewed no other changes. Pulmonary standpoint. Continues to have signs of fluid overload Pulmonary services will sign off
--- NOTE | 2023-07-21 15:16 | P.PN ---
Subjective Progress Note Date: 07/21/23 Follow-up for acute kidney injury. Urine output of 1 L in the last 24 hours. Objective - Vital Signs Vital signs: Vital Signs Temp 98 F 07/21/23 12:00 Pulse 62 07/21/23 12:00 Resp 16 07/21/23 12:00 BP 99/67 07/21/23 12:00 Pulse Ox 93 L 07/21/23 12:00 FiO2 21 07/05/23 09:14 Intake & Output 07/20/23 07/21/23 07/21/23 18:59 06:59 18:59 Intake Total 598 358 Output Total 950 Balance -352 358 Weight 89.7 kg Intake: Oral 598 358 Output: Urine 950 Other: Voiding Method Indwelling Catheter Indwelling Catheter # Voids 1 # Bowel Movements 1 1 - Exam No acute distress S1-S2 heard Decreased breath sounds Abdomen soft Edema - Labs CBC & Chem 7: 07/21/23 08:39 07/21/23 08:39 Labs: Abnormal Lab Results - Last 24 Hours (Table) 07/18/23 07/20/23 07/20/23 Range/Units 06:43 16:11 20:13 RBC (4.30-5.90) m/uL Hgb (13.0-17.5) gm/dL Hct (39.0-53.0) % MCV (80.0-100.0) fL MCH (25.0-35.0) pg RDW (11.5-15.5) % Plt Count (150-450) k/uL Lymphocytes # (1.0-4.8) k/uL Macrocytosis Sodium (137-145) mmol/L Potassium (3.5-5.1) mmol/L Chloride (98-107) mmol/L Carbon Dioxide (22-30) mmol/L BUN (9-20) mg/dL Creatinine (0.66-1.25) mg/dL Glucose (74-99) mg/dL POC Glucose (mg/dL) 256 H 178 H (70-110) mg/dL Calcium (8.4-10.2) mg/dL Rbzcg-6-Sgqukseuk 0.42 L (0.60-1.00) d/dL 07/21/23 07/21/23 07/21/23 Range/Units 06:03 08:39 08:39 RBC 2.49 L (4.30-5.90) m/uL Hgb 9.0 L (13.0-17.5) gm/dL Hct 27.2 L (39.0-53.0) % MCV 109.3 H (80.0-100.0) fL MCH 36.2 H (25.0-35.0) pg RDW 21.2 H (11.5-15.5) % Plt Count 37 L (150-450) k/uL Lymphocytes # 0.5 L (1.0-4.8) k/uL Macrocytosis Marked A Sodium 134 L (137-145) mmol/L Potassium 3.0 L (3.5-5.1) mmol/L Chloride 93 L (98-107) mmol/L Carbon Dioxide 32 H (22-30) mmol/L BUN 53 H (9-20) mg/dL Creatinine 1.85 H (0.66-1.25) mg/dL Glucose 163 H (74-99) mg/dL POC Glucose (mg/dL) 131 H (70-110) mg/dL Calcium 7.6 L (8.4-10.2) mg/dL Xbdbe-6-Turhebjdf (0.60-1.00) d/dL 07/21/23 Range/Units 11:35 RBC (4.30-5.90) m/uL Hgb (13.0-17.5) gm/dL Hct (39.0-53.0) % MCV (80.0-100.0) fL MCH (25.0-35.0) pg RDW (11.5-15.5) % Plt Count (150-450) k/uL Lymphocytes # (1.0-4.8) k/uL Macrocytosis Sodium (137-145) mmol/L Potassium (3.5-5.1) mmol/L Chloride (98-107) mmol/L Carbon Dioxide (22-30) mmol/L BUN (9-20) mg/dL Creatinine (0.66-1.25) mg/dL Glucose (74-99) mg/dL POC Glucose (mg/dL) 184 H (70-110) mg/dL Calcium (8.4-10.2) mg/dL Iiwsn-7-Gyjqfmthb (0.60-1.00) d/dL Assessment and Plan Assessment: #1 acute kidney injury secondary to hemodynamic ATN -CRS is a differential. -Baseline creatinine 0.7 MG per DL. #2 hypotension. #3 volume overload #4 urinary retention status post Charles #5 liver cirrhosis #6 urinary retention Plan: #1 renal function stable, Charles was removed yesterday with urinary retention 550 ML's. Reinsert Charles. #2 on midodrine for hemodynamic support. #3 change IV Lasix to by mouth torsemide 40 mg by mouth daily at discharge.
[2023-07-21 16:26] LABS: Glucose,Whole Blood 234 mg/dL (70-110)
[2023-07-21 20:04] LABS: Glucose,Whole Blood 259 mg/dL (70-110)
[2023-07-22] MEDS: FUROSEMIDE 10 MG/ML 10 ML VIAL IV SCH ×4 (01:37→23:41)
[2023-07-22 06:33] LABS: Glucose,Whole Blood 187 mg/dL (70-110)
[2023-07-22] MEDS: INSULIN ASPART (NovoLOG) 100 UNIT/ML VIAL SQ SCH ×4 (06:37→20:58)
[2023-07-22] MEDS: MIDODRINE 5 MG TAB PO SCH ×3 (06:38→17:00)
[2023-07-22] MEDS: HYDROcodone/APAP 7.5-325MG 1 EACH TAB PO PRN ×2 (06:45→18:38)
[2023-07-22] MEDS: IPRATROPIUM-ALBUTEROL 3 ML NEB INHALATION SCH ×4 (07:44→20:50)
[2023-07-22] MEDS: SYMBICORT 160-4.5 MCG INHALER INHALATION SCH ×2 (07:44→20:50)
[2023-07-22 07:49] LABS: Anisocytosis Moderate; Basophils % (A) 0 %; Eosinophils % (A) 1 %; HGB 7.6 gm/dL (13.0-17.5); Lymphocytes # (A) 0.4 k/uL (1.0-4.8); Lymphocytes % (A) 16 %; MCV 109.2 fL (80.0-100.0); Macrocytosis Marked; Mean Platelet Volume 10.6; Monocytes # (A) 0.1 k/uL (0-1.0); Monocytes % (A) 4 %; Neutrophils % (A) 77 %; RDW 21.2 % (11.5-15.5); WBC 2.6 k/uL (3.8-10.6)
[2023-07-22 07:58] LABS: Platelet Count 32 k/uL (150-450)
[2023-07-22 08:47] LABS: African American GFR (CKD) 48 (>60 ml/min/1.73 sqM); Anion Gap 6 mmol/L; Blood Urea Nitrogen 53 mg/dL (9-20); Calcium 7.4 mg/dL (8.4-10.2); Carbon Dioxide 33 mmol/L (22-30); Chloride 95 mmol/L (98-107); Glucose 121 mg/dL (74-99); Non-African American GFR(CKD) 41 (>60 ml/min/1.73 sqM); Sodium 134 mmol/L (137-145)
[2023-07-22 08:53] LABS: Potassium 2.7 mmol/L (3.5-5.1)
[2023-07-22] MEDS ORDERED: Potassium Replacement Protocol 1 EACH MISC MISCELLANE PRN ×3 (08:56→16:25)
[2023-07-22] MEDS: METOPROLOL TARTRATE 12.5 MG TAB PO SCH ×2 (09:37→20:58)
[2023-07-22] MEDS: LIDOCAINE 5% PATCH TOPICAL SCH (09:37)
[2023-07-22] MEDS: FOLIC ACID 1 MG TAB PO SCH (09:38)
[2023-07-22] MEDS: POTASSIUM CHLORIDE ER 20 MEQ TAB.ER PO SCH ×3 (09:38→20:58)
[2023-07-22] MEDS: HYDROCORTISONE 20 MG TAB PO SCH (09:38)
[2023-07-22] MEDS: CHOLECALCIFEROL 25 MCG (1000 IU) TABLET PO SCH (09:38)
[2023-07-22] MEDS: THIAMINE 100 MG TAB PO SCH (09:38)
[2023-07-22] MEDS: FAMOTIDINE 20 MG TAB PO SCH (09:38)
[2023-07-22] MEDS: MEGESTROL 400 MG/10 ML CUP PO SCH (09:40)
[2023-07-22] MEDS ORDERED: POTASSIUM CHLORIDE ER 20 MEQ TAB.ER PO STA ×2 (10:38→15:10)
--- NOTE | 2023-07-22 10:42 | P.PN ---
Subjective Patient is seen in follow-up for acute kidney injury. Renal function stable. Nonoliguric. On IV Lasix. Denies chest pain or shortness of breath. Vital signs are stable. General: No acute distress. HEENT: Head exam is unremarkable. On room air. LUNGS: No audible rhonchi or wheezes. HEART: Rate and Rhythm are regular. ABDOMEN: Nontender. EXTREMITITES: 2+ edema. Lower extremities wrapped. Objective - Vital Signs Vital signs: Vital Signs Temp 97.5 F L 07/22/23 08:00 Pulse 64 07/22/23 08:00 Resp 18 07/22/23 08:00 BP 102/73 07/22/23 08:00 Pulse Ox 94 L 07/22/23 08:00 FiO2 21 07/05/23 09:14 Intake & Output 07/21/23 07/22/23 07/22/23 18:59 06:59 18:59 Intake Total 358 Output Total 1600 Balance 358 -1600 Weight 199.5 kg Intake: Oral 358 Output: Urine 1600 Other: Voiding Method Indwelling Catheter Indwelling Catheter Indwelling Catheter # Voids 1 - Labs CBC & Chem 7: 07/22/23 07:08 07/22/23 07:08 Labs: Abnormal Lab Results - Last 24 Hours (Table) 07/21/23 07/21/23 07/21/23 Range/Units 08:39 11:35 16:25 WBC (3.8-10.6) k/uL RBC 2.49 L (4.30-5.90) m/uL Hgb 9.0 L (13.0-17.5) gm/dL Hct 27.2 L (39.0-53.0) % MCV 109.3 H (80.0-100.0) fL MCH 36.2 H (25.0-35.0) pg RDW 21.2 H (11.5-15.5) % Plt Count 37 L (150-450) k/uL Lymphocytes # 0.5 L (1.0-4.8) k/uL Macrocytosis Marked A Sodium (137-145) mmol/L Potassium (3.5-5.1) mmol/L Chloride (98-107) mmol/L Carbon Dioxide (22-30) mmol/L BUN (9-20) mg/dL Creatinine (0.66-1.25) mg/dL Glucose (74-99) mg/dL POC Glucose (mg/dL) 184 H 234 H (70-110) mg/dL Calcium (8.4-10.2) mg/dL 07/21/23 07/22/23 07/22/23 Range/Units 20:03 06:32 07:08 WBC 2.6 L (3.8-10.6) k/uL RBC 2.10 L (4.30-5.90) m/uL Hgb 7.6 L (13.0-17.5) gm/dL Hct 23.0 L (39.0-53.0) % MCV 109.2 H (80.0-100.0) fL MCH 36.0 H (25.0-35.0) pg RDW 21.2 H (11.5-15.5) % Plt Count 32 L (150-450) k/uL Lymphocytes # 0.4 L (1.0-4.8) k/uL Macrocytosis Marked A Sodium (137-145) mmol/L Potassium (3.5-5.1) mmol/L Chloride (98-107) mmol/L Carbon Dioxide (22-30) mmol/L BUN (9-20) mg/dL Creatinine (0.66-1.25) mg/dL Glucose (74-99) mg/dL POC Glucose (mg/dL) 259 H 187 H (70-110) mg/dL Calcium (8.4-10.2) mg/dL 07/22/23 Range/Units 07:08 WBC (3.8-10.6) k/uL RBC (4.30-5.90) m/uL Hgb (13.0-17.5) gm/dL Hct (39.0-53.0) % MCV (80.0-100.0) fL MCH (25.0-35.0) pg RDW (11.5-15.5) % Plt Count (150-450) k/uL Lymphocytes # (1.0-4.8) k/uL Macrocytosis Sodium 134 L (137-145) mmol/L Potassium 2.7 L* (3.5-5.1) mmol/L Chloride 95 L (98-107) mmol/L Carbon Dioxide 33 H (22-30) mmol/L BUN 53 H (9-20) mg/dL Creatinine 1.75 H (0.66-1.25) mg/dL Glucose 121 H (74-99) mg/dL POC Glucose (mg/dL) (70-110) mg/dL Calcium 7.4 L (8.4-10.2) mg/dL Assessment and Plan Plan: Assessment: 1. Acute kidney injury secondary to ATN secondary to hypotension, anemia. Also component of cardiorenal/hepatorenal syndrome. No proteinuria on UA. Creatinine stable at 1.75 today. Creatinine 0.7 dated February 06, 2023. 2. Volume overload. Improving with diuresis. 3. Moderate mitral regurgitation. 4. Hypotension. Cortisol level on the lower side. On hydrocortisone. Consider endocrinology evaluation outpatient for workup for adrenal insufficiency. 5. Hypervolemic hyponatremia. 6. Pancytopenia being followed by hematology. Iron replete. 7. Hyperkalemia secondary to acute kidney injury and acidosis. Questionable adrenal insufficiency. Resolved. Now hypokalemic from diuresis. 8. Urinary retention. Has Charles catheter. 9. Liver cirrhosis. 10. Acute blood loss anemia status post blood transfusion and DDAVP this admission. Hemoglobin 7.6. Plan: Maintain IV Lasix. Transition to oral diuretics tomorrow. Maintain metolazone. Avoid nephrotoxins. Continue to monitor renal function and urine output. Low-salt diet and 1500 mL fluid restriction. Maintain midodrine. Replace potassium aggressively. Recheck level this afternoon. Add Aranesp.
[2023-07-22 11:35] LABS: Glucose,Whole Blood 243 mg/dL (70-110)
[2023-07-22] MEDS ORDERED: DARBEPOETIN ALFA 40 MCG/0.4 ML SYRINGE SQ SCH (12:00)
[2023-07-22] MEDS: metOLazone 5 MG TAB PO SCH (12:28)
[2023-07-22 13:15] VITALS: BMI 56.5
[2023-07-22] MEDS: NYSTATIN 100,000 UNIT/GM POWD 15 GM TOPICAL SCH ×2 (13:35→20:59)
--- NOTE | 2023-07-22 14:08 | P.PN ---
Subjective Progress Note Date: 07/22/23 Principal diagnosis: pancytopenia At today's visit patient is resting comfortably in bed. He reports feeling well. Denies pain and shortness of breath. Objective - Vital Signs Vital signs: Vital Signs Temp 97.9 F 07/22/23 12:00 Pulse 72 07/22/23 12:00 Resp 16 07/22/23 12:00 BP 99/44 07/22/23 12:00 Pulse Ox 96 07/22/23 12:00 FiO2 21 07/05/23 09:14 Intake & Output 07/21/23 07/22/23 07/22/23 18:59 06:59 18:59 Intake Total 358 180 Output Total 1600 1200 Balance 358 -1600 -1020 Weight 199.5 kg 199.5 kg Intake: Oral 358 180 Output: Urine 1600 1200 Other: Voiding Method Indwelling Catheter Indwelling Catheter Indwelling Catheter # Voids 1 - Constitutional General appearance: Present: average body habitus, no acute distress - EENT Eyes: Present: EOMI ENT: Present: hearing grossly normal - Respiratory Details: breathing is even and unlabored - Cardiovascular Details: skin warm and dry - Gastrointestinal General gastrointestinal: Present: soft. Absent: tenderness - Integumentary Integumentary: Absent: cyanotic - Musculoskeletal Musculoskeletal: Present: generalized weakness - Psychiatric Psychiatric: Present: A&O x's 3, appropriate affect, intact judgment & insight - Labs CBC & Chem 7: 07/22/23 07:08 07/22/23 07:08 Labs: Abnormal Lab Results - Last 24 Hours (Table) 07/21/23 07/21/23 07/22/23 Range/Units 16:25 20:03 06:32 WBC (3.8-10.6) k/uL RBC (4.30-5.90) m/uL Hgb (13.0-17.5) gm/dL Hct (39.0-53.0) % MCV (80.0-100.0) fL MCH (25.0-35.0) pg RDW (11.5-15.5) % Plt Count (150-450) k/uL Lymphocytes # (1.0-4.8) k/uL Macrocytosis Sodium (137-145) mmol/L Potassium (3.5-5.1) mmol/L Chloride (98-107) mmol/L Carbon Dioxide (22-30) mmol/L BUN (9-20) mg/dL Creatinine (0.66-1.25) mg/dL Glucose (74-99) mg/dL POC Glucose (mg/dL) 234 H 259 H 187 H (70-110) mg/dL Calcium (8.4-10.2) mg/dL 07/22/23 07/22/23 07/22/23 Range/Units 07:08 07:08 11:33 WBC 2.6 L (3.8-10.6) k/uL RBC 2.10 L (4.30-5.90) m/uL Hgb 7.6 L (13.0-17.5) gm/dL Hct 23.0 L (39.0-53.0) % MCV 109.2 H (80.0-100.0) fL MCH 36.0 H (25.0-35.0) pg RDW 21.2 H (11.5-15.5) % Plt Count 32 L (150-450) k/uL Lymphocytes # 0.4 L (1.0-4.8) k/uL Macrocytosis Marked A Sodium 134 L (137-145) mmol/L Potassium 2.7 L* (3.5-5.1) mmol/L Chloride 95 L (98-107) mmol/L Carbon Dioxide 33 H (22-30) mmol/L BUN 53 H (9-20) mg/dL Creatinine 1.75 H (0.66-1.25) mg/dL Glucose 121 H (74-99) mg/dL POC Glucose (mg/dL) 243 H (70-110) mg/dL Calcium 7.4 L (8.4-10.2) mg/dL Assessment and Plan (1) Bicytopenia Current Visit: Yes Status: Acute Priority: High Code(s): D75.89 - OTHER SPECIFIED DISEASES OF BLOOD AND BLOOD-FORMING ORGANS SNOMED Code(s): 82726721 (2) SAHARA (acute kidney injury) Current Visit: Yes Status: Acute Priority: High Code(s): N17.9 - ACUTE KIDNEY FAILURE, UNSPECIFIED SNOMED Code(s): 73143754 (3) NSTEMI (non-ST elevated myocardial infarction) Current Visit: Yes Status: Acute Priority: High Code(s): I21.4 - NON-ST ELEVATION (NSTEMI) MYOCARDIAL INFARCTION SNOMED Code(s): 87425788 Plan: Bicytopenia/Macrocytosis: -Multifactorial-CKD, ETOH marrow damage exacerbated by acute infection/stress, chronic inflammation and nutritional deficiency. -Low folic acid, supplemented -Copper levels low, recommended [id number] copper supplement for 30 days with a recheck by his PCP. Copper supplement is not for long-term use. -Hepatitis panel neg, HIV neg, no other deficiencies found. -Recommend GI f/u (esophageal varices seen on CT, cirrhosis) -Patient has Received 3 units PRBCs, most recently on the and . Hemoglobin 7.6 today -Cont to monitor CBC. Transfuse for hemoglobin less than 7 -Transfuse for platelets less than 10,000 unless patient is symptomatic. Patient has not required platelet transfusion. Platelets back down below 50,000, no anticoagulation or antiplatelet therapy unless greater than 50,000 -Erythropoetin slightly elevated at 39. -Paraproteinemia work up ordered. Workup revealed elevated K/L, but normal ratio at 1.02. This can be affected by abnormal kidney function. Immunofixation negative for monoclonal paraprotein. SPEP revealed beta/gamma bridge, correlate for liver dysfunction Discussed results with patient. Would expect counts to improve as patient acutely recovers. If pancytopenia continues as patient recovers, can f/u in clinic outpt for further evaluation/management
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
[2023-07-22 16:43] LABS: Glucose,Whole Blood 437 mg/dL (70-110)
[2023-07-22] MEDS ORDERED: INSULIN ASPART (NovoLOG) 100 UNIT/ML VIAL SQ ONE (17:21)
[2023-07-22 20:11] LABS: Glucose,Whole Blood 240 mg/dL (70-110)
[2023-07-22] MEDS: MAGNESIUM SULFATE-D5W PMX 1 GM in DEXTROSE/WATER 1 100ML.BAG IVPB SCH ×2 (20:57→22:09)
[2023-07-22] MEDS: HYDROCORTISONE 10 MG TAB PO SCH (20:58)
--- NOTE | 2023-07-22 21:00 | P.PN ---
Subjective This is a pleasant 63 years old male with multiple medical problems He is admitted with fluid overload and severe anasarca with severe bilateral pit ting leg edema and swelling, both legs are wrapped in a dressing for now. patient currently lying in bed flat with no dyspnea. No orthopnea. No chest pain. His evidence with decompensated liver cirrhosis with moderate ascites on ultrasound, this is a new diagnosis and I told the patient about it and he verbalized understanding and acceptance. I has evidence of pancytopenia and patient performed as well. He has evidence of anemia. And was diagnosed with diastolic CHF with ejection fraction 50-55% and COPD Faustin exacerbation. Patient currently kept on IV Lasix 80 mg 3 times per day. Yesterday he has average urine output. Hubertus Cortef 20 mg the morning and 10 mg p.m. A small dose of metoprolol 12.5. And midodrine 10 mg. Followed closely by pulmonary, hematology/oncology and bin piler. He has low appetite and begins will be added Check labs tomorrow 07/20/2023 Patient is clinically looks the same as yesterday. Lying in bed. With significant fluid overload and bilateral leg edema with a dressing in a Place his creatinine improved down to 1.7 today. He still has anemia with hemoglobin 9.1 and low platelet count 38, currently not on aspirin or blood thinner. He is on IV Lasix 80 mg every 8 hours and metolazone 5 g daily and eviscerated. 07/21/2023 Patient feels improvement, he is able to sit in his bed on the site of the bit today. History of have significant bilateral leg swelling with Eduardo wrap in place on both legs. He had to straight cath is better for 200 mL yesterday. We'll keep monitoring Labs from today pending Patient is about is his diagnosis of liver cirrhosis, consult GI tomorrow, no GI and this facilitated this weekend. He remains on IV Lasix 80 mg 3 times a day and metolazone 5 mg daily with apparent change Lasix and 2 torsemide today 07/22/2023 pt is lying in bed comfortable , he states his leg swelling are coming down ,although they are still edematous , eduardo wrap is in place on both legs no resp distress or symptoms ;no gi s/s, delatorre catheter is in placed , has good urine output, we will start on flomax , pt may benefit for outpt f/w with urologist low potassium and mg replaced gi service evaluated pt for cirrhosis and recommended outpt follow up pancytopenia is stable per [facility] and may f/u as oiutpt as well pt will benefit from SARY upon discharge possible dc in 24-48 hr Objective - Vital Signs Vital signs: Vital Signs Temp 97.5 F L 07/22/23 16:00 Pulse 68 07/22/23 16:00 Resp 18 07/22/23 16:00 BP 108/58 07/22/23 16:00 Pulse Ox 100 07/22/23 16:00 FiO2 21 07/05/23 09:14 Intake & Output 07/21/23 07/22/23 07/22/23 18:59 06:59 18:59 Intake Total 358 420 Output Total 1600 1200 Balance 358 -1600 -780 Weight 199.5 kg 199.5 kg Intake: Oral 358 420 Output: Urine 1600 1200 Other: Voiding Method Indwelling Catheter Indwelling Catheter Indwelling Catheter # Voids 1 - Exam -GENERAL: The patient is alert and oriented x3, not in any acute distress. Well developed, well nourished. Patient this week and withdrawn HEENT: Pupils are round and equally reacting to light. EOMI. No scleral icterus. No conjunctival pallor. Normocephalic, atraumatic. No pharyngeal erythema. No thyromegaly. CARDIOVASCULAR: S1 and S2 present. No murmurs, rubs, or gallops. PULMONARY: Chest is clear to auscultation, no wheezing , no crackles. ABDOMEN: Soft, nontender, nondistended, normoactive bowel sounds. No palpable organomegaly. MUSCULOSKELETAL: No joint swelling or deformity. -EXTREMITIES: No cyanosis, clubbing, severe bilateral pitting leg edema . NEUROLOGICAL: Gross neurological examination did not reveal any focal deficits. SKIN: No rashes. no petechiae. - Labs CBC & Chem 7: 07/22/23 07:08 07/22/23 14:14 Labs: Abnormal Lab Results - Last 24 Hours (Table) 07/21/23 07/22/23 07/22/23 Range/Units 20:03 06:32 07:08 WBC 2.6 L (3.8-10.6) k/uL RBC 2.10 L (4.30-5.90) m/uL Hgb 7.6 L (13.0-17.5) gm/dL Hct 23.0 L (39.0-53.0) % MCV 109.2 H (80.0-100.0) fL MCH 36.0 H (25.0-35.0) pg RDW 21.2 H (11.5-15.5) % Plt Count 32 L (150-450) k/uL Lymphocytes # 0.4 L (1.0-4.8) k/uL Macrocytosis Marked A Sodium (137-145) mmol/L Potassium (3.5-5.1) mmol/L Chloride (98-107) mmol/L Carbon Dioxide (22-30) mmol/L BUN (9-20) mg/dL Creatinine (0.66-1.25) mg/dL Glucose (74-99) mg/dL POC Glucose (mg/dL) 259 H 187 H (70-110) mg/dL Calcium (8.4-10.2) mg/dL 07/22/23 07/22/23 07/22/23 Range/Units 07:08 11:33 14:14 WBC (3.8-10.6) k/uL RBC (4.30-5.90) m/uL Hgb (13.0-17.5) gm/dL Hct (39.0-53.0) % MCV (80.0-100.0) fL MCH (25.0-35.0) pg RDW (11.5-15.5) % Plt Count (150-450) k/uL Lymphocytes # (1.0-4.8) k/uL Macrocytosis Sodium 134 L (137-145) mmol/L Potassium 2.7 L* 3.4 L (3.5-5.1) mmol/L Chloride 95 L (98-107) mmol/L Carbon Dioxide 33 H (22-30) mmol/L BUN 53 H (9-20) mg/dL Creatinine 1.75 H (0.66-1.25) mg/dL Glucose 121 H (74-99) mg/dL POC Glucose (mg/dL) 243 H (70-110) mg/dL Calcium 7.4 L (8.4-10.2) mg/dL 07/22/23 Range/Units 16:42 WBC (3.8-10.6) k/uL RBC (4.30-5.90) m/uL Hgb (13.0-17.5) gm/dL Hct (39.0-53.0) % MCV (80.0-100.0) fL MCH (25.0-35.0) pg RDW (11.5-15.5) % Plt Count (150-450) k/uL Lymphocytes # (1.0-4.8) k/uL Macrocytosis Sodium (137-145) mmol/L Potassium (3.5-5.1) mmol/L Chloride (98-107) mmol/L Carbon Dioxide (22-30) mmol/L BUN (9-20) mg/dL Creatinine (0.66-1.25) mg/dL Glucose (74-99) mg/dL POC Glucose (mg/dL) 437 H (70-110) mg/dL Calcium (8.4-10.2) mg/dL Assessment and Plan Assessment: Fluids overload, with anasarca secondary to hepatorenal disease Consent liver cirrhosis with moderate ascites, new diagnosis, decompensated Pancytopenia Anemia of chronic disease Acute on chronic diastolic CHF with ejection fraction 50-55% Mitral regurgitation COPD with no exacerbation 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 Lynch and patient agrees. Labs and medication were reviewed.. Continue same treatment. Continue with symptomatic treatment. Resume home medication. Monitor labs and vitals. DVT and GI prophylaxis. Further recommendations as per clinical course of the patient DVT prophylaxis: no Subcutaneous heparin for thrombocytopenia GI Prophylaxis: Pepcid PT/OT: Pending Prognosis is guarded
[2023-07-23] MEDS: HYDROcodone/APAP 7.5-325MG 1 EACH TAB PO PRN ×3 (02:44→21:13)
[2023-07-23 06:32] LABS: Glucose,Whole Blood 136 mg/dL (70-110)
[2023-07-23] MEDS: INSULIN ASPART (NovoLOG) 100 UNIT/ML VIAL SQ SCH ×4 (06:38→21:13)
[2023-07-23] MEDS: MIDODRINE 5 MG TAB PO SCH ×3 (06:44→17:39)
[2023-07-23 07:32] LABS: Anisocytosis Moderate; Basophils % (A) 0 %; Eosinophils % (A) 1 %; HCT 22.9 % (39.0-53.0); HGB 7.7 gm/dL (13.0-17.5); Lymphocytes # (A) 0.6 k/uL (1.0-4.8); Lymphocytes % (A) 18 %; MCH 36.8 pg (25.0-35.0); MCHC 33.6 g/dL (31.0-37.0); MCV 109.6 fL (80.0-100.0); Monocytes # (A) 0.1 k/uL (0-1.0); Monocytes % (A) 4 %; Neutrophils # (A) 2.3 k/uL (1.3-7.7); Neutrophils % (A) 76 %; RBC 2.09 m/uL (4.30-5.90); RDW 21.3 % (11.5-15.5)
[2023-07-23 07:44] LABS: African American GFR (CKD) 55 (>60 ml/min/1.73 sqM); Anion Gap 4 mmol/L; Blood Urea Nitrogen 53 mg/dL (9-20); Calcium 7.4 mg/dL (8.4-10.2); Carbon Dioxide 34 mmol/L (22-30); Chloride 95 mmol/L (98-107); Glucose 113 mg/dL (74-99); Magnesium 1.9 mg/dL (1.6-2.3); Non-African American GFR(CKD) 47 (>60 ml/min/1.73 sqM); Potassium 3.2 mmol/L (3.5-5.1); Sodium 133 mmol/L (137-145)
[2023-07-23 08:02] LABS: Macrocytosis Marked; Platelet Count 39 k/uL (150-450)
[2023-07-23] MEDS ORDERED: INSULIN DETEMIR (LEVEMIR) 100 UNIT/ML SYR SQ SCH ×2 (09:00)
[2023-07-23] MEDS: HYDROCORTISONE 20 MG TAB PO SCH (09:08)
[2023-07-23] MEDS: metOLazone 5 MG TAB PO SCH (09:08)
[2023-07-23] MEDS: THIAMINE 100 MG TAB PO SCH (09:08)
[2023-07-23] MEDS: FAMOTIDINE 20 MG TAB PO SCH (09:08)
[2023-07-23] MEDS: METOPROLOL TARTRATE 12.5 MG TAB PO SCH ×2 (09:08→21:12)
[2023-07-23] MEDS: FOLIC ACID 1 MG TAB PO SCH (09:08)
[2023-07-23] MEDS: CHOLECALCIFEROL 25 MCG (1000 IU) TABLET PO SCH (09:18)
[2023-07-23] MEDS: LIDOCAINE 5% PATCH TOPICAL SCH (09:24)
[2023-07-23] MEDS: POTASSIUM CHLORIDE ER 20 MEQ TAB.ER PO SCH ×4 (09:39→21:12)
[2023-07-23] MEDS: SYMBICORT 160-4.5 MCG INHALER INHALATION SCH ×2 (09:43→19:24)
[2023-07-23] MEDS: IPRATROPIUM-ALBUTEROL 3 ML NEB INHALATION SCH ×4 (09:43→19:24)
[2023-07-23] MEDS: FUROSEMIDE 10 MG/ML 10 ML VIAL IV SCH (09:53)
[2023-07-23] MEDS: INSULIN DETEMIR (LEVEMIR) 100 UNIT/ML SYR SQ SCH (09:54)
[2023-07-23] MEDS ORDERED: POTASSIUM CHLORIDE ER 20 MEQ TAB.ER PO STA (10:50)
--- NOTE | 2023-07-23 10:52 | P.PN ---
Subjective Patient is seen in follow-up for acute kidney injury. Renal function improved. Nonoliguric. On IV Lasix. Denies chest pain or shortness of breath. Vital signs are stable. General: No acute distress. HEENT: Head exam is unremarkable. On room air. LUNGS: No audible rhonchi or wheezes. HEART: Rate and Rhythm are regular. ABDOMEN: Nontender. EXTREMITITES: 2+ edema. Lower extremities wrapped. Objective - Vital Signs Vital signs: Vital Signs Temp 97.7 F 07/23/23 08:00 Pulse 74 07/23/23 08:00 Resp 18 07/23/23 08:00 BP 121/78 07/23/23 08:00 Pulse Ox 97 07/23/23 04:00 FiO2 21 07/05/23 09:14 Intake & Output 07/22/23 07/23/23 07/23/23 18:59 06:59 18:59 Intake Total 420 480 Output Total 1200 1525 Balance -780 -1525 480 Weight 199.5 kg Intake: Oral 420 480 Output: Urine 1200 1525 Other: Voiding Method Indwelling Catheter Indwelling Catheter Indwelling Catheter # Bowel Movements 1 1 - Labs CBC & Chem 7: 07/23/23 06:26 07/23/23 06:26 Labs: Abnormal Lab Results - Last 24 Hours (Table) 07/22/23 07/22/23 07/22/23 Range/Units 11:33 14:14 16:42 WBC (3.8-10.6) k/uL RBC (4.30-5.90) m/uL Hgb (13.0-17.5) gm/dL Hct (39.0-53.0) % MCV (80.0-100.0) fL MCH (25.0-35.0) pg RDW (11.5-15.5) % Plt Count (150-450) k/uL Lymphocytes # (1.0-4.8) k/uL Macrocytosis Sodium (137-145) mmol/L Potassium 3.4 L (3.5-5.1) mmol/L Chloride (98-107) mmol/L Carbon Dioxide (22-30) mmol/L BUN (9-20) mg/dL Creatinine (0.66-1.25) mg/dL Glucose (74-99) mg/dL POC Glucose (mg/dL) 243 H 437 H (70-110) mg/dL Calcium (8.4-10.2) mg/dL 07/22/23 07/23/23 07/23/23 Range/Units 20:09 06:26 06:26 WBC 3.0 L (3.8-10.6) k/uL RBC 2.09 L (4.30-5.90) m/uL Hgb 7.7 L (13.0-17.5) gm/dL Hct 22.9 L (39.0-53.0) % MCV 109.6 H (80.0-100.0) fL MCH 36.8 H (25.0-35.0) pg RDW 21.3 H (11.5-15.5) % Plt Count 39 L (150-450) k/uL Lymphocytes # 0.6 L (1.0-4.8) k/uL Macrocytosis Marked A Sodium 133 L (137-145) mmol/L Potassium 3.2 L (3.5-5.1) mmol/L Chloride 95 L (98-107) mmol/L Carbon Dioxide 34 H (22-30) mmol/L BUN 53 H (9-20) mg/dL Creatinine 1.56 H (0.66-1.25) mg/dL Glucose 113 H (74-99) mg/dL POC Glucose (mg/dL) 240 H (70-110) mg/dL Calcium 7.4 L (8.4-10.2) mg/dL 07/23/23 Range/Units 06:31 WBC (3.8-10.6) k/uL RBC (4.30-5.90) m/uL Hgb (13.0-17.5) gm/dL Hct (39.0-53.0) % MCV (80.0-100.0) fL MCH (25.0-35.0) pg RDW (11.5-15.5) % Plt Count (150-450) k/uL Lymphocytes # (1.0-4.8) k/uL Macrocytosis Sodium (137-145) mmol/L Potassium (3.5-5.1) mmol/L Chloride (98-107) mmol/L Carbon Dioxide (22-30) mmol/L BUN (9-20) mg/dL Creatinine (0.66-1.25) mg/dL Glucose (74-99) mg/dL POC Glucose (mg/dL) 136 H (70-110) mg/dL Calcium (8.4-10.2) mg/dL Assessment and Plan Plan: Assessment: 1. Acute kidney injury secondary to ATN secondary to hypotension, anemia. Also component of cardiorenal/hepatorenal syndrome. No proteinuria on UA. Cre atinine improved to 1.56 today. Creatinine 0.7 dated February 06, 2023. 2. Volume overload. Improving with diuresis. 3. Moderate mitral regurgitation. 4. Hypotension. Cortisol level on the lower side. On hydrocortisone. Consider endocrinology evaluation outpatient for workup for adrenal insuffici ency. 5. Hypervolemic hyponatremia. 6. Pancytopenia being followed by hematology. Iron replete. 7. Hyperkalemia secondary to acute kidney injury and acidosis. Questionable adrenal insufficiency. Resolved. Now hypokalemic from diuresis. 8. Urinary retention. Has Charles catheter. 9. Liver cirrhosis. 10. Acute blood loss anemia status post blood transfusion and DDAVP this admission. Hemoglobin 7.7. On Aranesp. Plan: Stop IV Lasix. Add torsemide 40 mg twice daily. Stop metolazone. Add SGLT2i. Avoid nephrotoxins. Continue to monitor renal function and urine output. Low-salt diet and 1500 mL fluid restriction. Maintain midodrine. Maintain potassium supplementation. Additional 40 mEq today. Repeat BMP and magnesium level 2-3 days postdischarge. Follow up outpatient in 1 week.
[2023-07-23 11:38] LABS: Glucose,Whole Blood 239 mg/dL (70-110)
[2023-07-23] MEDS: DAPAGLIFLOZIN PROPANEDIOL 5 MG TABLET PO SCH (12:18)
[2023-07-23] MEDS: NYSTATIN 100,000 UNIT/GM POWD 15 GM TOPICAL SCH ×2 (12:19→21:14)
--- NOTE | 2023-07-23 12:58 | P.PN ---
Subjective Progress Note Date: 07/23/23 Principal diagnosis: New onset cirrhosis This is 63-year-old male with multiple comorbidities who has been admitted to the hospital for the past 20 days with COPD, hypoxia, hypotension, acute kidney injury, anemia, pancytopenia and recent diagnosis of [facility] the liver[facility] of [facility] of the liver. As part of his workup on admission he had a chest abdomen and pelvis CT that reported abnormal lobulated contour of the liver appears more prominent from the previous examination however limited without contrast. But highly suspicious for cirrhosis. Also reported moderate ascites noted throughout the abdomen and pelvis. Patient states he he has had no prior knowledge of any liver cirrhosis or liver disease. He states that he was a heavy drinker but quit drinking about 20 years ago. States he drinks 410 years or more heavy at least a 6 pack a day. During this admission he was noted to be pancytopenic, hematology was consulted. He has received 3 units of blood during this hospitalization. Hepatitis was nonreactive. Multiple consultants on his case. Today's labs WBC 2.6 hemoglobin 7.6 hematocrit 23 platelet count 32,000 sodium 134 potassium 2.7 BUN 43 creatinine 1.75. He had a hepatitis panel that was nonreactive. LFTs were normal on admission, no recent LFTs. Patient has bilateral lower extremity swelling with Eduardo wrap, he states that they do hurt. He denies any abdominal pain, nausea or vomiting. He is sitting up at the bedside eating. He has a Charles catheter in place. Denies any chest pain or shortness of breath at this time. 07/23/2023 Patient seen and examined today as a follow-up. Gastroenterology was consulted for new onset cirrhosis of the liver. Patient without any acute changes through the night. Denies any abdominal pain, no blood in his stool, nausea or vomiting. WBC 3.0 Hemoglobin 7.7 platelet count 39,000. Objective - Vital Signs Vital signs: Vital Signs Temp 98.1 F 07/23/23 04:00 Pulse 74 07/23/23 04:00 Resp 18 07/23/23 04:00 BP 102/63 07/23/23 04:00 Pulse Ox 97 07/23/23 04:00 FiO2 21 07/05/23 09:14 Intake & Output 07/22/23 07/23/23 07/23/23 18:59 06:59 18:59 Intake Total 420 Output Total 1200 1525 Balance -780 -1525 Weight 199.5 kg Intake: Oral 420 Output: Urine 1200 1525 Other: Voiding Method Indwelling Catheter Indwelling Catheter # Bowel Movements 1 1 - Exam General appearance: The patient is alert, oriented, appears in no acute distress. HET: Head is normocephalic and atraumatic. Conjunctiva pink. Sclera anicteric. Neck: Supple without lymphadenopathy. Abdomen: Soft, nontender, nondistended with bowel sounds. No guarding or rigidity. Extremities: Normal skin color and turgor. Bilateral lower extremity edema, legs wrapped bilaterally. Skin: No rashes, no jaundice Neurological: No focal deficits. Alert and oriented. - Labs CBC & Chem 7: 07/23/23 06:26 07/23/23 06:26 Labs: Abnormal Lab Results - Last 24 Hours (Table) 07/22/23 07/22/23 07/22/23 Range/Units 11:33 14:14 16:42 WBC (3.8-10.6) k/uL RBC (4.30-5.90) m/uL Hgb (13.0-17.5) gm/dL Hct (39.0-53.0) % MCV (80.0-100.0) fL MCH (25.0-35.0) pg RDW (11.5-15.5) % Plt Count (150-450) k/uL Lymphocytes # (1.0-4.8) k/uL Macrocytosis Sodium (137-145) mmol/L Potassium 3.4 L (3.5-5.1) mmol/L Chloride (98-107) mmol/L Carbon Dioxide (22-30) mmol/L BUN (9-20) mg/dL Creatinine (0.66-1.25) mg/dL Glucose (74-99) mg/dL POC Glucose (mg/dL) 243 H 437 H (70-110) mg/dL Calcium (8.4-10.2) mg/dL 07/22/23 07/23/23 07/23/23 Range/Units 20:09 06:26 06:26 WBC 3.0 L (3.8-10.6) k/uL RBC 2.09 L (4.30-5.90) m/uL Hgb 7.7 L (13.0-17.5) gm/dL Hct 22.9 L (39.0-53.0) % MCV 109.6 H (80.0-100.0) fL MCH 36.8 H (25.0-35.0) pg RDW 21.3 H (11.5-15.5) % Plt Count 39 L (150-450) k/uL Lymphocytes # 0.6 L (1.0-4.8) k/uL Macrocytosis Marked A Sodium 133 L (137-145) mmol/L Potassium 3.2 L (3.5-5.1) mmol/L Chloride 95 L (98-107) mmol/L Carbon Dioxide 34 H (22-30) mmol/L BUN 53 H (9-20) mg/dL Creatinine 1.56 H (0.66-1.25) mg/dL Glucose 113 H (74-99) mg/dL POC Glucose (mg/dL) 240 H (70-110) mg/dL Calcium 7.4 L (8.4-10.2) mg/dL 07/23/23 Range/Units 06:31 WBC (3.8-10.6) k/uL RBC (4.30-5.90) m/uL Hgb (13.0-17.5) gm/dL Hct (39.0-53.0) % MCV (80.0-100.0) fL MCH (25.0-35.0) pg RDW (11.5-15.5) % Plt Count (150-450) k/uL Lymphocytes # (1.0-4.8) k/uL Macrocytosis Sodium (137-145) mmol/L Potassium (3.5-5.1) mmol/L Chloride (98-107) mmol/L Carbon Dioxide (22-30) mmol/L BUN (9-20) mg/dL Creatinine (0.66-1.25) mg/dL Glucose (74-99) mg/dL POC Glucose (mg/dL) 136 H (70-110) mg/dL Calcium (8.4-10.2) mg/dL Assessment and Plan (1) Liver cirrhosis Narrative/Plan: Urias 63-year-old male with multiple comorbidities with a history of alcohol abuse 15-[address] of the abdomen that reported lobulated liver how ever it was without contrast. Patient with possible cirrhosis of the liver with no known history of alcohol abuse with that likely being the underlying cause. As well as presenting with pancytopenia again likely secondary to underlying liver disease and bone marrow suppression. No further workup at this time. Patient can follow-up as an outpatient. Continue with alcohol abstinence. Current Visit: Yes Status: Acute Code(s): K74.60 - UNSPECIFIED CIRRHOSIS OF LIVER SNOMED Code(s): 28572754 (2) Pancytopenia Narrative/Plan: Monitor daily CBC, transfuse for hemoglobin less than 7. Continue with recommendations from hematology Current Visit: No Status: Acute Code(s): D61.818 - OTHER PANCYTOPENIA SNOMED Code(s): 542544860 (3) History of alcohol abuse Current Visit: Yes Status: Acute Code(s): F10.11 - ALCOHOL ABUSE, IN REMISSION SNOMED Code(s): 592963838 (4) Hypokalemia Current Visit: Yes Status: Acute Code(s): E87.6 - HYPOKALEMIA SNOMED Code(s): 55816986 (5) SAHARA (acute kidney injury) Current Visit: Yes Status: Acute Priority: High Code(s): N17.9 - ACUTE KIDNEY FAILURE, UNSPECIFIED SNOMED Code(s): 19778116 (6) Anemia Current Visit: Yes Status: Acute Code(s): D64.9 - ANEMIA, UNSPECIFIED SNOMED Code(s): 627067755 (7) Hyponatremia Current Visit: Yes Status: Acute Code(s): E87.1 - HYPO-OSMOLALITY AND HYPONATREMIA SNOMED Code(s): 26661127 (8) Weakness Current Visit: Yes Status: Acute Code(s): R53.1 - WEAKNESS SNOMED Code(s): 77263987 (9) Diabetes Current Visit: No Status: Acute Code(s): E11.9 - TYPE 2 DIABETES MELLITUS WITHOUT COMPLICATIONS SNOMED Code(s): 31872728 Plan: 1. Continue symptomatic and supportive care 2. Continue with input from multiple consultants 3. Daily CBC, transfuse for hemoglobin less than 7 4. Replace potassium per protocol 5. Diuretics per recommendations from nephrology 6. No further workup indicated at this time from gastroenterology. Patient can follow-up as an outpatient. Thank you for this consultation, we will sign off at this time. Dr. Tessy Lynch I agree with the dictator's note, documented as a scribe by Светлана Rubin.
--- NOTE | 2023-07-23 13:32 | P.PN ---
Subjective This is a pleasant 63 years old male with multiple medical problems He is admitted with fluid overload and severe anasarca with severe bilateral pit ting leg edema and swelling, both legs are wrapped in a dressing for now. patient currently lying in bed flat with no dyspnea. No orthopnea. No chest pain. His evidence with decompensated liver cirrhosis with moderate ascites on ultrasound, this is a new diagnosis and I told the patient about it and he verbalized understanding and acceptance. I has evidence of pancytopenia and patient performed as well. He has evidence of anemia. And was diagnosed with diastolic CHF with ejection fraction 50-55% and COPD Faustin exacerbation. Patient currently kept on IV Lasix 80 mg 3 times per day. Yesterday he has average urine output. Markesan Cortef 20 mg the morning and 10 mg p.m. A small dose of metoprolol 12.5. And midodrine 10 mg. Followed closely by pulmonary, hematology/oncology and provider relations coordinator. He has low appetite and begins will be added Check labs tomorrow 07/20/2023 Patient is clinically looks the same as yesterday. Lying in bed. With significant fluid overload and bilateral leg edema with a dressing in a Place his creatinine improved down to 1.7 today. He still has anemia with hemoglobin 9.1 and low platelet count 38, currently not on aspirin or blood thinner. He is on IV Lasix 80 mg every 8 hours and metolazone 5 g daily and eviscerated. 07/21/2023 Patient feels improvement, he is able to sit in his bed on the site of the bit today. History of have significant bilateral leg swelling with Eduardo wrap in place on both legs. He had to straight cath is better for 200 mL yesterday. We'll keep monitoring Labs from today pending Patient is about is his diagnosis of liver cirrhosis, consult GI tomorrow, no GI and this facilitated this weekend. He remains on IV Lasix 80 mg 3 times a day and metolazone 5 mg daily with apparent change Lasix and 2 torsemide today 07/22/2023 pt is lying in bed comfortable , he states his leg swelling are coming down ,although they are still edematous , eduardo wrap is in place on both legs no resp distress or symptoms ;no gi s/s, delatorre catheter is in placed , has good urine output, we will start on flomax , pt may benefit for outpt f/w with urologist low potassium and mg replaced gi service evaluated pt for cirrhosis and recommended outpt follow up pancytopenia is stable per mh teacher and may f/u as oiutpt as well pt will benefit from SARY upon discharge possible dc in 24-48 hr 07/23/2023 patient today fluid overload status and bilateral leg swelling even significantly improved compared to yesterday, although still have some leg edema there. The breathing is fine. His diuretics were switched and to oral torsem tarun 40 mg twice daily and farxiga 5 mg daily. Glucose is controlled with insulin 10 units. He has chest pain or abdominal pain. No nausea vomiting. Tolerates diet well. His creatinine down to 1.5, hemoglobin 7.7, WBC 3.0, platelet count 39. Gynecology already evaluated the patient and he might benefit from outpatient follow-up. Low potassium and magnesium replaced. Patient may be considered for discharge soon however patient still pending placement. Patient might benefit from follow-up with the pulmonary service, Dr. Randall as an outpatient 2 weeks, GI service for his liver cirrhosis and also esophageal varices. Dr. Rob from hematology. Case was discussed with staff Objective - Vital Signs Vital signs: Vital Signs Temp 98.3 F 07/23/23 11:40 Pulse 76 07/23/23 11:40 Resp 16 07/23/23 11:40 BP 106/73 07/23/23 11:40 Pulse Ox 95 07/23/23 11:40 FiO2 21 07/05/23 09:14 Intake & Output 07/22/23 07/23/23 07/23/23 18:59 06:59 18:59 Intake Total 420 480 Output Total 1200 1525 Balance -780 -1525 480 Weight 199.5 kg Intake: Oral 420 480 Output: Urine 1200 1525 Other: Voiding Method Indwelling Catheter Indwelling Catheter Indwelling Catheter # Bowel Movements 1 1 1 - Exam -GENERAL: The patient is alert and oriented x3, not in any acute distress. Well developed, well nourished. Patient this week and withdrawn HEENT: Pupils are round and equally reacting to light. EOMI. No scleral icterus. No conjunctival pallor. Normocephalic, atraumatic. No pharyngeal erythema. No thyromegaly. CARDIOVASCULAR: S1 and S2 present. No murmurs, rubs, or gallops. PULMONARY: Chest is clear to auscultation, no wheezing , no crackles. ABDOMEN: Soft, nontender, nondistended, normoactive bowel sounds. No palpable organomegaly. MUSCULOSKELETAL: No joint swelling or deformity. -EXTREMITIES: No cyanosis, clubbing, severe bilateral pitting leg edema . NEUROLOGICAL: Gross neurological examination did not reveal any focal deficits. SKIN: No rashes. no petechiae. - Labs CBC & Chem 7: 07/23/23 06:26 07/23/23 06:26 Labs: Abnormal Lab Results - Last 24 Hours (Table) 07/22/23 07/22/23 07/22/23 Range/Units 14:14 16:42 20:09 WBC (3.8-10.6) k/uL RBC (4.30-5.90) m/uL Hgb (13.0-17.5) gm/dL Hct (39.0-53.0) % MCV (80.0-100.0) fL MCH (25.0-35.0) pg RDW (11.5-15.5) % Plt Count (150-450) k/uL Lymphocytes # (1.0-4.8) k/uL Macrocytosis Sodium (137-145) mmol/L Potassium 3.4 L (3.5-5.1) mmol/L Chloride (98-107) mmol/L Carbon Dioxide (22-30) mmol/L BUN (9-20) mg/dL Creatinine (0.66-1.25) mg/dL Glucose (74-99) mg/dL POC Glucose (mg/dL) 437 H 240 H (70-110) mg/dL Calcium (8.4-10.2) mg/dL 07/23/23 07/23/23 07/23/23 Range/Units 06:26 06:26 06:31 WBC 3.0 L (3.8-10.6) k/uL RBC 2.09 L (4.30-5.90) m/uL Hgb 7.7 L (13.0-17.5) gm/dL Hct 22.9 L (39.0-53.0) % MCV 109.6 H (80.0-100.0) fL MCH 36.8 H (25.0-35.0) pg RDW 21.3 H (11.5-15.5) % Plt Count 39 L (150-450) k/uL Lymphocytes # 0.6 L (1.0-4.8) k/uL Macrocytosis Marked A Sodium 133 L (137-145) mmol/L Potassium 3.2 L (3.5-5.1) mmol/L Chloride 95 L (98-107) mmol/L Carbon Dioxide 34 H (22-30) mmol/L BUN 53 H (9-20) mg/dL Creatinine 1.56 H (0.66-1.25) mg/dL Glucose 113 H (74-99) mg/dL POC Glucose (mg/dL) 136 H (70-110) mg/dL Calcium 7.4 L (8.4-10.2) mg/dL 07/23/23 Range/Units 11:29 WBC (3.8-10.6) k/uL RBC (4.30-5.90) m/uL Hgb (13.0-17.5) gm/dL Hct (39.0-53.0) % MCV (80.0-100.0) fL MCH (25.0-35.0) pg RDW (11.5-15.5) % Plt Count (150-450) k/uL Lymphocytes # (1.0-4.8) k/uL Macrocytosis Sodium (137-145) mmol/L Potassium (3.5-5.1) mmol/L Chloride (98-107) mmol/L Carbon Dioxide (22-30) mmol/L BUN (9-20) mg/dL Creatinine (0.66-1.25) mg/dL Glucose (74-99) mg/dL POC Glucose (mg/dL) 239 H (70-110) mg/dL Calcium (8.4-10.2) mg/dL Assessment and Plan Assessment: Fluids overload, with anasarca secondary to hepatorenal disease Consent liver cirrhosis with moderate ascites, new diagnosis, decompensated Pancytopenia Anemia of chronic disease Acute on chronic diastolic CHF with ejection fraction 50-55% Mitral regurgitation COPD with no exacerbation 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 Lasix and metolazone were stopped Nephrology, pulmonary and hematology oncology team on the case Made aware about his diagnosis of liver cirrhosis with recommendation to follow up as an outpatient with GI Dr. Lynch and patient agrees. Labs and medication were reviewed.. Continue same treatment. Continue with symptomatic treatment. Resume home medication. Monitor labs and vitals. DVT and GI prophylaxis. Further recommendations as per clinical course of the gibson bella DVT prophylaxis: no Subcutaneous heparin for thrombocytopenia GI Prophylaxis: Pepcid PT/OT: Pending Prognosis is guarded Pending placement
[2023-07-23 16:16] LABS: Glucose,Whole Blood 272 mg/dL (70-110)
[2023-07-23 19:47] LABS: Glucose,Whole Blood 186 mg/dL (70-110)
[2023-07-23] MEDS: TORSEMIDE 20 MG TAB PO SCH (21:12)
[2023-07-23] MEDS: HYDROCORTISONE 10 MG TAB PO SCH (21:12)
[2023-07-24] MEDS: HYDROcodone/APAP 7.5-325MG 1 EACH TAB PO PRN ×2 (04:59→10:53)
[2023-07-24 06:03] LABS: Glucose,Whole Blood 186 mg/dL (70-110)
[2023-07-24] MEDS: MIDODRINE 5 MG TAB PO SCH ×2 (06:14→10:53)
[2023-07-24] MEDS: INSULIN ASPART (NovoLOG) 100 UNIT/ML VIAL SQ SCH ×2 (06:14→11:43)
[2023-07-24] MEDS: POTASSIUM CHLORIDE ER 20 MEQ TAB.ER PO SCH (07:43)
[2023-07-24] MEDS: HYDROCORTISONE 20 MG TAB PO SCH (07:43)
[2023-07-24] MEDS: DAPAGLIFLOZIN PROPANEDIOL 5 MG TABLET PO SCH (07:43)
[2023-07-24] MEDS: METOPROLOL TARTRATE 12.5 MG TAB PO SCH (07:43)
[2023-07-24] MEDS: TORSEMIDE 20 MG TAB PO SCH (07:43)
[2023-07-24] MEDS: traMADol 50 MG TAB PO PRN (07:44)
[2023-07-24] MEDS: CHOLECALCIFEROL 25 MCG (1000 IU) TABLET PO SCH (07:44)
[2023-07-24] MEDS: FAMOTIDINE 20 MG TAB PO SCH (07:44)
[2023-07-24] MEDS: THIAMINE 100 MG TAB PO SCH (07:44)
[2023-07-24] MEDS: FOLIC ACID 1 MG TAB PO SCH (07:44)
[2023-07-24] MEDS: LIDOCAINE 5% PATCH TOPICAL SCH (07:44)
[2023-07-24] MEDS: NYSTATIN 100,000 UNIT/GM POWD 15 GM TOPICAL SCH (07:48)
[2023-07-24] MEDS: INSULIN DETEMIR (LEVEMIR) 100 UNIT/ML SYR SQ SCH (07:48)
[2023-07-24] MEDS: SYMBICORT 160-4.5 MCG INHALER INHALATION SCH (08:27)
[2023-07-24] MEDS: IPRATROPIUM-ALBUTEROL 3 ML NEB INHALATION SCH ×3 (08:27→15:24)
--- NOTE | 2023-07-24 10:52 | P.PN ---
Subjective Patient is seen in follow-up for acute kidney injury. Renal function improved. Nonoliguric. On oral diuretics. Denies chest pain or shortness of breath. Vital signs are stable. General: No acute distress. HEENT: Head exam is unremarkable. On room air. LUNGS: No audible rhonchi or wheezes. HEART: Rate and Rhythm are regular. ABDOMEN: Nontender. EXTREMITITES: 1+ edema. Lower extremities wrapped. Objective - Vital Signs Vital signs: Vital Signs Temp 98 F 07/24/23 08:00 Pulse 98 07/24/23 08:00 Resp 16 07/24/23 10:33 BP 102/64 07/24/23 08:00 Pulse Ox 96 07/24/23 08:00 FiO2 21 07/05/23 09:14 Intake & Output 07/23/23 07/24/23 07/24/23 18:59 06:59 18:59 Intake Total 730 355 420 Output Total 1200 1800 250 Balance -470 -1445 170 Weight 81.5 kg Intake: Oral 730 355 420 Output: Urine 1200 1800 250 Other: Voiding Method Indwelling Catheter Indwelling Catheter Indwelling Catheter # Bowel Movements 1 1 - Labs CBC & Chem 7: 07/23/23 06:26 07/23/23 06:26 Labs: Abnormal Lab Results - Last 24 Hours (Table) 07/23/23 07/23/23 07/23/23 Range/Units 11:29 16:04 19:45 POC Glucose (mg/dL) 239 H 272 H 186 H (70-110) mg/dL 07/24/23 Range/Units 05:59 POC Glucose (mg/dL) 186 H (70-110) mg/dL Assessment and Plan Plan: Assessment: 1. Acute kidney injury secondary to ATN secondary to hypotension, anemia. Also component of cardiorenal/hepatorenal syndrome. No proteinuria on UA. Creatinine improved to 1.56 yesterday. Creatinine 0.7 dated February 06, 2023. 2. Volume overload. Improving with diuresis. 3. Moderate mitral regurgitation. 4. Hypotension. Cortisol level on the lower side. On hydrocortisone. Consider endocrinology evaluation outpatient for workup for adrenal insufficiency. 5. Hypervolemic hyponatremia. 6. Pancytopenia being followed by hematology. Iron replete. 7. Hyperkalemia secondary to acute kidney injury and acidosis. Questionable adrenal insufficiency. Resolved. Now hypokalemic from diuresis. Replaced. 8. Urinary retention. Has Charles catheter. 9. Liver cirrhosis. 10. Acute blood loss anemia status post blood transfusion and DDAVP this admission. Hemoglobin 7.7. On Aranesp. Plan: Maintain torsemide. Maintain SGLT2i. Avoid nephrotoxins. Continue to monitor renal function and urine output. Low-salt diet and 1500 mL fluid restriction. Maintain midodrine. Repeat BMP and magnesium level 2-3 days postdischarge. Follow up outpatient in 1 week.
[2023-07-24 11:08] VITALS: RESP 16
[2023-07-24 11:35] LABS: Glucose,Whole Blood 544 mg/dL (70-110)
[2023-07-24 11:35] LABS: Glucose,Whole Blood 250 mg/dL (70-110)
[2023-07-24 11:36] VITALS: PULSE 78
[2023-07-24 11:38] LABS: African American GFR (CKD) 52 (>60 ml/min/1.73 sqM); Anion Gap 6 mmol/L; Blood Urea Nitrogen 52 mg/dL (9-20); Calcium 7.4 mg/dL (8.4-10.2); Carbon Dioxide 35 mmol/L (22-30); Chloride 92 mmol/L (98-107); Glucose 174 mg/dL (74-99); Non-African American GFR(CKD) 45 (>60 ml/min/1.73 sqM); Potassium 3.5 mmol/L (3.5-5.1); Sodium 133 mmol/L (137-145)
--- NOTE | 2023-07-24 13:50 | P.DS ---
Providers Date of admission: 07/02/23 23:41 Expected date of discharge: 07/24/23 Attending physician: Nelly Tong Consults: 07/02/23 23:40 Consult Physician Routine Consulting Provider: Chavo Pyle Consult Reason/Comments: hypoxia Do you want consulting provider notified?: Yes 07/03/23 10:00 Consult Physician Routine Consulting Provider: Yovani Hung Consult Reason/Comments: bicytopenia, macrocytosis concern for malignancy Do you want consulting provider notified?: Yes 07/03/23 10:35 Consult Physician Routine Consulting Provider: Juan Antonio Randall Consult Reason/Comments: L3 compression fracture Do you want consulting provider notified?: Yes 07/04/23 09:42 Consult Physician Routine Consulting Provider: Miladis Pfeiffer Consult Reason/Comments: Acute renal failure with severe electrolyte abnormality Do you want consulting provider notified?: Yes Primary care physician: Amelia Hensley MD Hospital Course: Final diagnosis Significant fluid overload, with anasarca secondary to hepatorenal disease New onset liver cirrhosis with moderate ascites, new diagnosis, decompensated Pancytopenia Anemia of chronic disease Acute on chronic diastolic CHF with ejection fraction 50-55% Mitral regurgitation COPD with no exacerbation history of Avtar disease hyperglycemia , iatrogenic due to steroid (pt is on cortef) GI prophylaxis DVT prophylaxis Full code Discharge disposition Patient is being discharged in a stable condition with guarded prognosis to [facility]. Patient will follow-up with Dr. Rashmi Hensley in the outpatient setting upon discharge. Patient is to continue with medications as prescribed per low and outpatient follow-up with orthopedics, urology, pulmonary, GI, nephrology, and hematology as scheduled. Repeat labs recommended of magnesium and BMP in 2-3 days. Total time taken is greater than 35 minutes. Hospital course This is a 63-year-old male who was recently admitted with significant fluid overload and severe anasarca with bilateral lower extremity edema and swelling initially was maintained on Lasix drip for quite some time. Patient has been seen and evaluated by multiple consultations including orthopedics, GI, nephrology, cardiology, and pulmonary along with urology and will need outpatient follow-up with all these consultations. Patient is now maintained on oral diuretic therapy and recommend repeat labs of BMP and magnesium in 2-3 days and close outpatient follow-up with nephrology. Patient with significant weakness has been seen and evaluated by PT/OT therapy recommending rehab and patient is agreeable. Patient has been accepted and will be discharged today. Patient has been cleared by consultations. Please refer to other consultation notes for further HPI. Currently no reports of chest pain, shortness of breath, or palpitations. Patient is afebrile. No reports of nausea or vomiting and patient is tolerating diet. Patient will be going to [facility] today. High risk for readmission given patient's significant comorbidities and noncompliance with outpatient follow-up. Physical exam: Gen: This is a 63-year-old male who is awake, alert and oriented 3, pale, thin built, elderly appearing HEENT: Head is atraumatic, normocephalic. Pupils equal, round. Sclerae is anicteric. NECK: Supple. No JVD. No lymphadenopathy. No thyromegaly. LUNGS: Diminished breath sounds bilaterally otherwise clear to auscultation with No wheezes or rhonchi. No intercostal retractions. HEART: S1, S2 are muffled ABDOMEN: Soft. Bowel sounds are present. No masses. No tenderness. EXTREMITIES: No pedal edema. No calf tenderness. Generalized bilateral lower extremity edema although improved from previous NEUROLOGICAL: Patient is awake, alert and oriented x3. Cranial nerves 2 through 12 are grossly intact. Diffusely weak Please refer to medication reconciliation sheet for a list of medications. The impression and plan of care has been dictated by Elizabeth Bailey, Nurse Practitioner as directed. Dr. Willard MD I have performed a history and examination and MDM of this patient, discussed the same with the dictator, and agree with the dictator's assessment and plan as written ,documented as a scribe. Based on total visit time, I have performed more than 50% of the visit. Patient Condition at Discharge: Fair Plan - Discharge Summary Discharge Rx Participant: No New Discharge Prescriptions: New Hydrocortisone [Cortef] 10 mg PO HS tab Torsemide [Demadex] 40 mg PO BID tab Dapagliflozin Propanediol [Farxiga] 5 mg PO DAILY tab Potassium Chloride ER [K-Dur 20] 40 meq PO BID tab Insulin Detemir (Levemir) [Levemir] 10 unit SQ DAILY@0900 each Nystatin 100,000 Unit/gm Powd [Mycostatin Powder] 1 applic TOPICAL BID each HYDROcodone/APAP 7.5-325MG [[place] 7.5-325] 1 each PO Q6HR PRN #6 tab PRN Reason: pain Midodrine [ProAmatine] 10 mg PO AC-TID tab traMADol HCl [Ultram] 50 mg PO QID PRN #4 tab PRN Reason: Pain Darbepoetin Jesu [Aranesp] 40 mcg SQ Q7D each Hydrocortisone [Cortef] 20 mg PO DAILY tab Ipratropium-Albuterol Nebulize [Duoneb 0.5 mg-3 mg/3 ml Soln] 3 ml INHALATION RT-QID each Ipratropium-Albuterol Nebulize [Duoneb 0.5 mg-3 mg/3 ml Soln] 3 ml INHALATION RT-Q4H PRN each PRN Reason: Shortness Of Breath Or Wheezing Folic Acid 1 mg PO DAILY tab Lidocaine 5% Patch [Lidoderm 5% Patch] 1 patch TOPICAL DAILY patch Metoprolol Tartrate [Lopressor] 12.5 mg PO BID tab INSULIN ASPART (NovoLOG) [NovoLOG (formulary)] 0 unit SQ ACHS each Famotidine [Pepcid] 20 mg PO DAILY tab Budesonide-Formot 160-4.5 Mcg [Symbicort 160-4.5 Mcg Inhaler] 2 puff INHALATION RT-BID each Calcium Carbonate [Tums] 1,000 mg PO TID PRN tab PRN Reason: Heartburn Continue Cholecalciferol [Vitamin D3 (25 Mcg = 1000 Iu)] 100 mcg PO DAILY Albuterol Inhaler [Ventolin Hfa Inhaler] 2 puff INHALATION RT-QID PRN PRN Reason: Shortness Of Breath Thiamine [Vitamin B-1] 100 mg PO DAILY #30 tab Discontinued HYDROcodone/APAP 7.5-325MG [[place] 7.5-325] 1 tab PO Q12H PRN PRN Reason: pain Cyclobenzaprine [Flexeril] 10 mg PO BID PRN PRN Reason: Muscle Spasm ALPRAZolam [Xanax] 0.5 mg PO HS Discharge Medication List Albuterol Inhaler [Ventolin Hfa Inhaler] 2 puff INHALATION RT-QID PRN 02/03/23 [History] Cholecalciferol [Vitamin D3 (25 Mcg = 1000 Iu)] 100 mcg PO DAILY 02/03/23 [History] Thiamine [Vitamin B-1] 100 mg PO DAILY #30 tab 02/06/23 [Rx] Budesonide-Formot 160-4.5 Mcg [Symbicort 160-4.5 Mcg Inhaler] 2 puff INHALATION RT-BID each 07/24/23 [Rx] Calcium Carbonate [Tums] 1,000 mg PO TID PRN tab 07/24/23 [Rx] Dapagliflozin Propanediol [Farxiga] 5 mg PO DAILY tab 07/24/23 [Rx] Darbepoetin Jesu [Aranesp] 40 mcg SQ Q7D each 07/24/23 [Rx] Famotidine [Pepcid] 20 mg PO DAILY tab 07/24/23 [Rx] Folic Acid 1 mg PO DAILY tab 07/24/23 [Rx] HYDROcodone/APAP 7.5-325MG [[place] 7.5-325] 1 each PO Q6HR PRN #6 tab 07/24/23 [Rx] Hydrocortisone [Cortef] 10 mg PO HS tab 07/24/23 [Rx] Hydrocortisone [Cortef] 20 mg PO DAILY tab 07/24/23 [Rx] INSULIN ASPART (NovoLOG) [NovoLOG (formulary)] 0 unit SQ ACHS each 07/24/23 [Rx] Insulin Detemir (Levemir) [Levemir] 10 unit SQ DAILY@0900 each 07/24/23 [Rx] Ipratropium-Albuterol Nebulize [Duoneb 0.5 mg-3 mg/3 ml Soln] 3 ml INHALATION RT-Q4H PRN each 07/24/23 [Rx] Ipratropium-Albuterol Nebulize [Duoneb 0.5 mg-3 mg/3 ml Soln] 3 ml INHALATION R T-QID each 07/24/23 [Rx] Lidocaine 5% Patch [Lidoderm 5% Patch] 1 patch TOPICAL DAILY patch 07/24/23 [Rx] Metoprolol Tartrate [Lopressor] 12.5 mg PO BID tab 07/24/23 [Rx] Midodrine [ProAmatine] 10 mg PO AC-TID tab 07/24/23 [Rx] Nystatin 100,000 Unit/gm Powd [Mycostatin Powder] 1 applic TOPICAL BID each 07/24/23 [Rx] Potassium Chloride ER [K-Dur 20] 40 meq PO BID tab 07/24/23 [Rx] Torsemide [Demadex] 40 mg PO BID tab 07/24/23 [Rx] traMADol HCl [Ultram] 50 mg PO QID PRN #4 tab 07/24/23 [Rx] Follow up Appointment(s)/Referral(s): Yovani Hung [STAFF PHYSICIAN] - 3 Weeks (blood disease doctor for your low cell count in the blood ) Miladis Pfeiffer MD [STAFF PHYSICIAN] - 1 Week (kidney doctor ) Leigh Ann Lynch MD [STAFF PHYSICIAN] - 3 Weeks (GI doctor for your liver cirr hosis) Amelia Hensley MD [Primary Care Provider] - 1-2 days Juan Antonio Randall DO [Doctor of Osteopathic Medicine] - 2 Weeks (orthopedic for your back pain and and verteberal fracture ) Arley Camacho MD [STAFF PHYSICIAN] - 2 Weeks (delatorre cath managment ) Chavo Pyle MD [STAFF PHYSICIAN] - 3 Weeks (lung doctor ) Ambulatory/Diagnostic Orders: Basic Metabolic Panel [LAB.AMB] Time Frame: 3 Days, Location: None Selected Activity/Diet/Wound Care/Special Instructions: Diet: Low sodium, 1500 cc fluid restriction Activity: as tolerated Recommend evaz-lqd-gjawrnd copper supplement 30 days, dose does not matter. Recommend PCP follow-up and recheck copper levels. Do not recommend zinc supplements at this time, if it is not necessary. Discharge Disposition: TRANSFER TO SNF/ECF
[2023-07-24 15:52] VITALS: BP 120/76; TEMP 98.1
--- NOTE | 2023-07-26 11:49 | CDI ---
Documentation Clarification Form Date: 07/26/2023 11:30:59 AM From: Ena Batres Phone: Admit Date: 07/02/2023 11:41:00 PM Patient Name: Nathaniel Abarca Visit Number: [id number] Discharge Date: 07/24/2023 03:58:00 PM ATTENTION: The Clinical Documentation Specialists (CDI) and [facility] Coding Staff appreciate your assistance in clarifying documentation. Please respond to the clarification below the line at the bottom and electronically sign. The CDI & [facility] Coding staff will review the response and follow-up if needed. Please note: Queries are made part of the Legal Health Record. If you have any questions, please contact the author of this message via ITS. Dr. 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 Please clarify if there is a relationship between the diagnosis and diagnoses. History/Risk Factors: 63yo M, pancytopenia, NSTEMI II, hepatorenal disease, liver cirrhosiswith ascites, anemia of chronic disease, ACDHF, MR, AECOPD, [place] disease, DMII with hyperglycemiad/t steroid, alcoholism recent remission, ATN Clinical Indicators: Monitor CBC. Transfusefor Hgb < 7 unless patient is symptomatic. Transfusefor platelets less than 10,000 unless patient is symptomatic. Patienthas notrequiredplatelet transfusion. As long as platelets remain > 50,000 patient is okay forDVTprophylaxis. Treatment: 3u PRBC, RcPheresis x2 Please clarify the relationship, if any, which is clinically appropriate for this patient: [ ] Esophageal varices without bleeding is due to Alcoholic cirrhosis of liver with ascites [ ] Esophageal varices with bleeding is due to Alcoholic cirrhosis of liver with ascites [ ] Esophageal varices is not due to Alcoholic cirrhosis of liver with ascites [ ] Other explanation of clinical findings (please specify) [ ] Unable to determine (no explanation for clinical findings) (Template Last Revised: November 2020) Esophageal varices without bleeding is due to Alcoholic cirrhosis of liver with ascites MTDD
== END 2023-07-24 15:58 | DRG 808 ==
LOC: EC 21:07 → 3SCARD 23:41 → UNDODISIN 07-04 11:33 → 6NMEDSUR 07-09 22:17 → 3SCARD 07-11 15:40
PROVIDERS: ADMIT Hospitalist; ATTEND Hospitalist
PROC: 30233N1 Transfusion of Nonautologous Red Blood Cells into Peripheral Vein, Percutaneous Approach (ICD-10-PCS; principal; 2023-07-03)
PROC: 6A551Z1 Pheresis of Leukocytes, Multiple (ICD-10-PCS; 2023-07-04)
DX: D61.818 Other pancytopenia (principal); I21.A1 Myocardial infarction type 2; J96.01 Acute respiratory failure with hypoxia; N17.0 Acute kidney failure with tubular necrosis; K76.7 Hepatorenal syndrome; I50.33 Acute on chronic diastolic (congestive) heart failure; I85.10 Secondary esophageal varices without bleeding; S32.039A Unspecified fracture of third lumbar vertebra, initial encounter for closed fracture; J44.1 Chronic obstructive pulmonary disease with (acute) exacerbation; E27.1 Primary adrenocortical insufficiency; E87.20 Acidosis, unspecified; E87.1 Hypo-osmolality and hyponatremia; K70.31 Alcoholic cirrhosis of liver with ascites; I11.0 Hypertensive heart disease with heart failure; F10.21 Alcohol dependence, in remission; E11.65 Type 2 diabetes mellitus with hyperglycemia; Z79.4 Long term (current) use of insulin; D63.8 Anemia in other chronic diseases classified elsewhere; D62 Acute posthemorrhagic anemia; D69.59 Other secondary thrombocytopenia; I34.0 Nonrheumatic mitral (valve) insufficiency; F17.210 Nicotine dependence, cigarettes, uncomplicated; D72.810 Lymphocytopenia; T38.0X5A Adverse effect of glucocorticoids and synthetic analogues, initial encounter; Z91.199 Patient's noncompliance with other medical treatment and regimen due to unspecified reason; I95.9 Hypotension, unspecified; E03.8 Other specified hypothyroidism; D75.89 Other specified diseases of blood and blood-forming organs; E86.0 Dehydration; E87.5 Hyperkalemia; D53.9 Nutritional anemia, unspecified; S29.9XXA Unspecified injury of thorax, initial encounter; R31.9 Hematuria, unspecified; E87.6 Hypokalemia; R33.9 Retention of urine, unspecified; J32.0 Chronic maxillary sinusitis; M16.11 Unilateral primary osteoarthritis, right hip; G89.29 Other chronic pain; E78.5 Hyperlipidemia, unspecified; D72.818 Other decreased white blood cell count; T50.2X5A Adverse effect of carbonic-anhydrase inhibitors, benzothiadiazides and other diuretics, initial encounter; F41.9 Anxiety disorder, unspecified; W18.09XA Striking against other object with subsequent fall, initial encounter; Y92.008 Other place in unspecified non-institutional (private) residence as the place of occurrence of the external cause; Z79.899 Other long term (current) drug therapy; Z87.19 Personal history of other diseases of the digestive system
CPT/HCPCS: 36410; 36415; 70450; 71045; 71250; 73501; 73502; 74176; 76705; 76937; 78582; 80048; 80053; 80074; 81001; 82390; 82525; 82533; 82550; 82553; 82607; 82668; 82728; 82746; 83036; 83540; 83550; 83605; 83735; 83883; 83921; 84100; 84132; 84165; 84439; 84443; 84484; 85025; 85027; 85379; 85610; 85730; 86334; 86850; 86900; 86901; 86920; 87390; 93005; 93306; 93970; 94640; 94760; 96361; 96365; 96366; 96375; 96376; 99291

== ENCOUNTER 2023-07-25 01:52 | Observation (INO) | payer MEDICARE ==
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
[2023-07-25 04:09] LABS: INR 0.9 (<1.2); Partial Thromboplastin Time 26.9 sec (22.0-30.0)
[2023-07-25 04:29] LABS: African American GFR (CKD) 52 (>60 ml/min/1.73 sqM); Anion Gap 8 mmol/L; Blood Urea Nitrogen 56 mg/dL (9-20); Calcium 7.6 mg/dL (8.4-10.2); Carbon Dioxide 33 mmol/L (22-30); Chloride 92 mmol/L (98-107); Glucose 110 mg/dL (74-99); Non-African American GFR(CKD) 45 (>60 ml/min/1.73 sqM); Potassium 3.5 mmol/L (3.5-5.1); Sodium 133 mmol/L (137-145)
[2023-07-25 04:35] LABS: Anisocytosis Moderate; Basophils % (A) 0 %; Eosinophils % (A) 1 %; HCT 28.9 % (39.0-53.0); Lymphocytes # (A) 0.6 k/uL (1.0-4.8); Lymphocytes % (A) 12 %; MCH 36.1 pg (25.0-35.0); MCHC 33.5 g/dL (31.0-37.0); MCV 107.8 fL (80.0-100.0); Macrocytosis Marked; Mean Platelet Volume 11.4; Monocytes # (A) 0.2 k/uL (0-1.0); Monocytes % (A) 4 %; Neutrophils # (A) 3.8 k/uL (1.3-7.7); Neutrophils % (A) 81 %; RBC 2.68 m/uL (4.30-5.90); RDW 21.5 % (11.5-15.5); WBC 4.6 k/uL (3.8-10.6)
[2023-07-25 04:36] LABS: HGB 9.7 gm/dL (13.0-17.5); Platelet Count 44 k/uL (150-450)
[2023-07-25 05:00] LABS: Anisocytosis (M) Present; Polychromasia Present
[2023-07-25] MEDS ORDERED: MORPHINE SULFATE 4 MG/ML SYRINGE IV STA (06:10)
[2023-07-25 06:49] LABS: Appearance,Urine Clear (Clear); Bacteria,Urine Few /hpf; Bilirubin,Urine Negative (Negative); Blood,Urine Large (Negative); Color,Urine Colorless; Glucose,Urine (UA) Negative (Negative); Hyaline Casts,Urine 4 /lpf (0-2); Ketones,Urine 1+ (Negative); Leukocyte Esterase,Urine Large (Negative); Mucus,Urine Rare /hpf; Nitrite,Urine Negative (Negative); Protein,Urine Trace (Negative); RBC,Urine 107 /hpf (0-5); Squamous Epithelial Cell,Urine <1 /hpf (0-4); Urobilinogen,Urine <2.0 mg/dL (<2.0); WBC,Urine 40 /hpf (0-5)
--- NOTE | 2023-07-25 06:51 | US ---
EXAM: US Abdomen Limited, Right Upper Quadrant CLINICAL HISTORY: epigastric pain TECHNIQUE: Real-time ultrasound of the right upper quadrant with image documentation. COMPARISON: No relevant prior studies available. FINDINGS: Liver: Cirrhotic liver. No intrahepatic bile duct dilation. Gallbladder: Unremarkable. No gallstones. Mild gallbladder wall thickening. Common bile duct: Unremarkable as visualized. No stones. No dilation. Pancreas: Unremarkable as visualized. Right kidney: Unremarkable. No stones. No solid mass. No hydronephrosis. Free fluid: Large amount of ascites. IMPRESSION: Cirrhotic liver with ascites. Mild gallbladder wall thickening without stones.
[2023-07-25] MEDS ORDERED: NALOXONE 0.4 MG/ML 1 ML VIAL IV PRN (07:02)
[2023-07-25] MEDS: SODIUM CHLORIDE 0.9% 1,000 ML IV SCH (07:55)
[2023-07-25] MEDS ORDERED: CALCIUM CARBONATE 500 MG CHEWABLE PO PRN (10:22)
[2023-07-25] MEDS ORDERED: traMADol 50 MG TAB PO PRN (10:22)
[2023-07-25] MEDS ORDERED: ALBUTEROL HFA INHALER INHALATION PRN (10:22)
[2023-07-25] MEDS ORDERED: ALBUTEROL SULFATE INHALATION PRN (10:22)
[2023-07-25] MEDS ORDERED: BUDESONIDE INHALATION PRN (10:22)
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
--- NOTE | 2023-07-25 10:49 | XR ---
EXAMINATION TYPE: XR chest 1V DATE OF EXAM: 07/25/2023 10:33 AM CLINICAL INDICATION:Male, 63 years old with history of CHF; COMPARISON: Chest radiographs from 07/02/2023 TECHNIQUE: XR chest 1V Frontal view of the chest. FINDINGS: Lungs/Pleura: Haziness the right lung with small moderate right pleural effusion. There is no evidenc e of pleural effusion, focal consolidation, or pneumothorax. Pulmonary vascularity: Unremarkable. Heart/mediastinum: Cardiomediastinal silhouette is unremarkable. Musculoskeletal: No acute osseous pathology. IMPRESSION: Right-sided airspace opacities likely due to atelectasis from small moderate right pleural effusion. The left lung is relatively clear. The heart is within normal limits for size.
[2023-07-25] MEDS: ALBUMIN HUMAN 25% 50 ML in EMPTY BAG 1 BAG IVPB SCH ×2 (11:05→13:14)
[2023-07-25 11:41] LABS: Glucose,Whole Blood 140 mg/dL (70-110)
[2023-07-25] MEDS: METOPROLOL TARTRATE 12.5 MG TAB PO SCH ×2 (11:56→21:44)
[2023-07-25] MEDS: TORSEMIDE 20 MG TAB PO SCH ×2 (11:56→21:44)
[2023-07-25] MEDS: INSULIN ASPART (NovoLOG) 100 UNIT/ML VIAL SQ SCH ×3 (11:57→21:50)
[2023-07-25] MEDS: MIDODRINE 5 MG TAB PO SCH ×2 (13:19→20:40)
[2023-07-25] MEDS: HYDROcodone/APAP 7.5-325MG 1 EACH TAB PO PRN ×2 (13:20→19:20)
[2023-07-25] MEDS ORDERED: LIDOCAINE 2% URO-JET JELLY 5 ML KIT URETHRAL ONE (16:18)
[2023-07-25] MEDS ORDERED: HYDROmorphone 0.5 MG/0.5 ML SYRINGE IVP STA (16:20)
[2023-07-25 17:39] LABS: Glucose,Whole Blood 174 mg/dL (70-110)
[2023-07-25] MEDS: SYMBICORT 160-4.5 MCG INHALER INHALATION SCH (19:31)
[2023-07-25] MEDS ORDERED: HYDROCORTISONE 10 MG TAB PO SCH (21:00)
[2023-07-25 21:07] LABS: Glucose,Whole Blood 240 mg/dL (70-110)
[2023-07-25] MEDS: POTASSIUM CHLORIDE ER 20 MEQ TAB.ER PO SCH (21:49)
[2023-07-26] MEDS: HYDROcodone/APAP 7.5-325MG 1 EACH TAB PO PRN ×3 (02:46→16:16)
[2023-07-26] MEDS ORDERED: INSULIN DETEMIR (LEVEMIR) 100 UNIT/ML SYR SQ SCH (07:00)
[2023-07-26 07:24] LABS: Glucose,Whole Blood 192 mg/dL (70-110)
[2023-07-26] MEDS: MIDODRINE 5 MG TAB PO SCH ×3 (07:56→13:00)
[2023-07-26] MEDS: POTASSIUM CHLORIDE ER 20 MEQ TAB.ER PO SCH (08:50)
[2023-07-26] MEDS: INSULIN ASPART (NovoLOG) 100 UNIT/ML VIAL SQ SCH ×2 (08:52→13:00)
[2023-07-26] MEDS: METOPROLOL TARTRATE 12.5 MG TAB PO SCH (08:52)
[2023-07-26] MEDS: TORSEMIDE 20 MG TAB PO SCH (08:53)
[2023-07-26] MEDS: SODIUM CHLORIDE 0.9% 1,000 ML IV SCH (08:59)
[2023-07-26] MEDS ORDERED: HYDROCORTISONE 20 MG TAB PO SCH (09:00)
[2023-07-26] MEDS ORDERED: FOLIC ACID 1 MG TAB PO SCH (09:00)
[2023-07-26] MEDS ORDERED: DAPAGLIFLOZIN PROPANEDIOL 5 MG TABLET PO SCH (09:00)
[2023-07-26] MEDS ORDERED: FAMOTIDINE 20 MG TAB PO SCH (09:00)
[2023-07-26] MEDS ORDERED: CHOLECALCIFEROL 25 MCG (1000 IU) TABLET PO SCH (09:00)
[2023-07-26] MEDS ORDERED: THIAMINE 100 MG TAB PO SCH (09:00)
[2023-07-26] MEDS: SYMBICORT 160-4.5 MCG INHALER INHALATION SCH (09:10)
[2023-07-26 10:01] LABS: Magnesium 1.8 mg/dL (1.5-2.4)
[2023-07-26 10:17] LABS: BUN/Creat Ratio 24.61 Ratio (12.00-20.00); Blood Urea Nitrogen 44.3 mg/dL (9.0-27.0); Calcium 7.8 mg/dL (8.7-10.3); Carbon Dioxide 30.2 mmol/L (21.6-31.8); Chloride 92 mmol/L (96-109); Glucose 162 mg/dL (70-110); Potassium 4.1 mmol/L (3.5-5.5); Sodium 134 mmol/L (135-145)
[2023-07-26 11:59] LABS: Glucose,Whole Blood 218 mg/dL (70-110)
[2023-07-26 13:00] VITALS: TEMP 97.7
[2023-07-26 13:23] VITALS: BP 100/64; PULSE 84; RESP 20
[2023-07-26] MEDS: ALBUMIN HUMAN 25% 50 ML in EMPTY BAG 1 BAG IVPB SCH ×2 (13:34→14:11)
--- NOTE | 2023-07-26 13:41 | US ---
Ultrasound-guided paracentesis. DATE OF EXAM: 07/26/2023 CLINICAL HISTORY: Ascites The procedure was discussed with the patient. The risks, complications, benefits, and alternatives we re discussed and any questions were answered. Informed consent was obtained. The patient was placed s upine on the ultrasound table and prepped and draped in the usual sterile fashion. All elements of maximal barrier technique were utilized. Under ultrasound guidance, access into the right lower quadrant was obtained, via the paracentesis catheter system and direct ultrasound guidanc e. Approximately 2.3 liters of straw-colored fluid was removed. The patient was stable throughout the pr ocedure and remained stable upon discharge from Department of Radiology. Sample sent to pathology for analysis. IMPRESSION: Successful paracentesis under ultrasound guidance.
--- NOTE | 2023-07-26 14:12 | P.DS ---
Providers Date of admission: 07/25/23 07:02 Attending physician: Nelly Tong Primary care physician: Megan Langford DO Hospital Course: Final Diagnosis New onset liver cirrhosis with moderate ascites, new diagnosis, decompensated with paracentesis 2310 mL off Pancytopenia Anemia of chronic disease Acute on chronic diastolic CHF with ejection fraction 50-55% and hepatorenal disease Mitral regurgitation COPD with no exacerbation History of [place] disease hyperglycemia , iatrogenic due to steroid (pt is on cortef) GI prophylaxis DVT prophylaxis Full code Discharge Disposition Patient is being discharged in a stable condition with guarded prognosis to [facility]. Patient will follow-up with Dr. Rashmi Hensley in the outpatient setting upon discharge. Patient is to continue with medications as prescribed and outpatient follow-up with orthopedics, urology, pulmonary, GI, nephrology, and hematology as scheduled. Repeat labs recommended of magnesium and BMP in 2- 3 days. Total time taken is greater than 35 minutes. Hospital Course This is a 63-year-old male that was discharged yesterday after he was treated for chronic diastolic dysfunction, liver cirrhosis, volume overload was on IV Lasix drip for a while and was discharged on torsemide. Patient also has adrenal insufficiency for which patient is on hydrocortisone and for low pressures patient is on midodrine both of which will make him retain water. [facility] because of large ascites. and concern for urinary retention. patient was discharged with a delatorre catheter which was removed by nursing at the rehab. He was unable to urinate and was complaining of abdominal pain and delatorre was unable to be placed at the rehab. He came back to the ER for evaluation. Patient is on torsemide 40 mg twice a day. Patient still has some swelling which is not worse compared to yesterday. Patient had abdominal ultrasound which reveals cirrhotic liver with ascites, mild gallbladder wall thickening without stones, and large amount of abdominal ascites. Chest xray reveals right sided airspace opacities likely due to atelectasis from small to moderate right pleural effusion. the left lung is relatively clear. Patient admitted to the hospital with IR consultation. He underwent paractentesis and 2.3 L of straw colored fluid removed. Suspect the ascites was skewing the bladder scan. The patient is uncomfortable from the delatorre catheter and we will try a voiding trial if unsuccessful he will return to the rehab with delatorre in place and recommend to see urology outpatient. Currently patient is on room air. He is not complaining of chest pain or shortness of breath. His lower extremity edema is improved overall. He remains on torsemide BID. He should continue on 1500 CC fluid restriction and low sodium diet. Continue with ANYI wraps or compression stockings to his lower extremities. Sodium improved 133 to 134. patient requires extensive follow up on discharge with multiple consultations. Lungs are clear. His abdomen is less distended. He received albumin and 1 unit of FFP today after paracentesis. Recommending to repeat labs in 2 to 3 days. Please see medication reconciliation for a list of current medication. Thank you for allowing us to participate in the care of this patient. The impression and plan of care has been dictated by Rebekah Augustin, Nurse Practitioner as directed. Dr. Willard MD I have performed a history and physical examination and medical decision making of this patient, discussed the same with the dictator, and agree with the dictators assessment and plan as written, documented as a scribe. Based on total visit time, I have performed more than 50% of this visit. Patient Condition at Discharge: Fair Plan - Discharge Summary Discharge Rx Participant: No New Discharge Prescriptions: Continue Cholecalciferol [Vitamin D3 (25 Mcg = 1000 Iu)] 100 mcg PO DAILY Hydrocortisone [Cortef] 10 mg PO HS tab Torsemide [Demadex] 40 mg PO BID tab Dapagliflozin Propanediol [Farxiga] 5 mg PO DAILY tab Potassium Chloride ER [K-Dur 20] 40 meq PO BID tab Albuterol Sulfate/Budesonide [Airsupra 90-80 Mcg Inhaler] 2 puff INHALATION RT-QID PRN PRN Reason: Shortness Of Breath Darbepoetin Jesu [Aranesp] 40 mcg SQ TH@0700 INSULIN ASPART (NovoLOG) [NovoLOG (formulary)] See Protocol SQ ACHS Insulin Detemir [Levemir Flexpen] 10 units SQ DAILY Albuterol Inhaler [Ventolin Hfa Inhaler] 2 puff INHALATION RT-QID PRN PRN Reason: Shortness Of Breath Thiamine [Vitamin B-1] 100 mg PO DAILY #30 tab Hydrocortisone [Cortef] 20 mg PO DAILY tab Ipratropium-Albuterol Nebulize [Duoneb 0.5 mg-3 mg/3 ml Soln] 3 ml INHALATION RT-Q4H PRN each PRN Reason: Shortness Of Breath Or Wheezing Folic Acid 1 mg PO DAILY tab Famotidine [Pepcid] 20 mg PO DAILY tab Budesonide-Formot 160-4.5 Mcg [Symbicort 160-4.5 Mcg Inhaler] 2 puff INHALATION RT-BID each Calcium Carbonate [Tums] 1,000 mg PO TID PRN tab PRN Reason: Heartburn Metoprolol Tartrate [Lopressor] 12.5 mg PO BID Midodrine HCl [ProAmatine] 20 mg PO TID@0700,1300,1900 Changed HYDROcodone/APAP 7.5-325MG [[place] 7.5-325] 1 tab PO Q6HR PRN #4 tab PRN Reason: pain traMADol HCl [Ultram] 50 mg PO Q6H PRN #4 tab PRN Reason: Pain Discharge Medication List Albuterol Inhaler [Ventolin Hfa Inhaler] 2 puff INHALATION RT-QID PRN 02/03/23 [History] Cholecalciferol [Vitamin D3 (25 Mcg = 1000 Iu)] 100 mcg PO DAILY 02/03/23 [ History] Thiamine [Vitamin B-1] 100 mg PO DAILY #30 tab 02/06/23 [Rx] Budesonide-Formot 160-4.5 Mcg [Symbicort 160-4.5 Mcg Inhaler] 2 puff INHALATION RT-BID each 07/24/23 [Rx] Calcium Carbonate [Tums] 1,000 mg PO TID PRN tab 07/24/23 [Rx] Dapagliflozin Propanediol [Farxiga] 5 mg PO DAILY tab 07/24/23 [Rx] Famotidine [Pepcid] 20 mg PO DAILY tab 07/24/23 [Rx] Folic Acid 1 mg PO DAILY tab 07/24/23 [Rx] Hydrocortisone [Cortef] 10 mg PO HS tab 07/24/23 [Rx] Hydrocortisone [Cortef] 20 mg PO DAILY tab 07/24/23 [Rx] Ipratropium-Albuterol Nebulize [Duoneb 0.5 mg-3 mg/3 ml Soln] 3 ml INHALATION R T-Q4H PRN each 07/24/23 [Rx] Potassium Chloride ER [K-Dur 20] 40 meq PO BID tab 07/24/23 [Rx] Torsemide [Demadex] 40 mg PO BID tab 07/24/23 [Rx] Albuterol Sulfate/Budesonide [Airsupra 90-80 Mcg Inhaler] 2 puff INHALATION RT- QID PRN 07/25/23 [History] Darbepoetin Jesu [Aranesp] 40 mcg SQ TH@0700 07/25/23 [History] INSULIN ASPART (NovoLOG) [NovoLOG (formulary)] See Protocol SQ ACHS 07/25/23 [History] Insulin Detemir [Levemir Flexpen] 10 units SQ DAILY 07/25/23 [History] Metoprolol Tartrate [Lopressor] 12.5 mg PO BID 07/25/23 [History] Midodrine HCl [ProAmatine] 20 mg PO TID@0700,1300,1900 07/25/23 [History] HYDROcodone/APAP 7.5-325MG [[place] 7.5-325] 1 tab PO Q6HR PRN #4 tab 07/26/23 [Rx] traMADol HCl [Ultram] 50 mg PO Q6H PRN #4 tab 07/26/23 [Rx] Follow up Appointment(s)/Referral(s): Megan Langford DO [Primary Care Provider] - 1-2 days Yovani Hung [STAFF PHYSICIAN] - 3 Weeks (Blood disease doctor for low cell count in the blood ) Miladis Pfeiffer MD [STAFF PHYSICIAN] - 1 Week (kidney doctor ) Leigh Ann Lynch MD [STAFF PHYSICIAN] - 3 Weeks (GI doctor for the liver chirrosis ) Amelia Hensley MD [REFERRING] - 1-2 Days Juan Antonio Randall DO [Doctor of Osteopathic Medicine] - 2 Weeks (orthopedic doctor for back pain and vertebral fracture ) Arley Camacho MD [STAFF PHYSICIAN] - 2 Weeks (as needed if patient still having urinary retention, requiring indwelling catheter) Chavo Pyle MD [STAFF PHYSICIAN] - 3 Weeks (lung doctor ) Activity/Diet/Wound Care/Special Instructions: Diet: Low sodium, 1500 cc fluid restriction Activity: as tolerated Recommend [id number] copper supplement 30 days, dose does not matter. Recommend PCP follow-up and recheck copper levels. Do not recommend zinc supplements at this time, if it is not necessary. Repeat labs in 2 to 3 days including CBC, BMP and magnesium. Discharge Disposition: TRANSFER TO SNF/ECF
[2023-07-26] MEDS ORDERED: TAMSULOSIN 0.4 MG CAP.ER.24H PO STA (16:00)
[2023-07-26] MEDS ORDERED: PHENAZOPYRIDINE 100 MG TAB PO STA (16:00)
[2023-07-26 16:43] VITALS: BMI 25.2
[2023-07-26 19:10] LABS: Appearance,BF Hazy (Clear)
[2023-07-26 21:35] LABS: T. Protein, Body Fluid Source Paracentesis Fluid; Total Protein, Body Fluid 718 mg/dL
[2023-07-26 21:59] LABS: Albumin, Fluid Source Other
[2023-08-01] MEDS ORDERED: DARBEPOETIN ALFA 40 MCG/0.4 ML SYRINGE SQ SCH (07:00)
== END 2023-07-26 17:08 ==
LOC: EC 01:52 → 5NMEDONC 07:02
PROVIDERS: ADMIT Hospitalist; ATTEND Hospitalist
DX: K74.60 Unspecified cirrhosis of liver (principal); R18.8 Other ascites; I13.0 Hypertensive heart and chronic kidney disease with heart failure and stage 1 through stage 4 chronic kidney disease, or unspecified chronic kidney disease; I50.33 Acute on chronic diastolic (congestive) heart failure; N18.30 Chronic kidney disease, stage 3 unspecified; E11.22 Type 2 diabetes mellitus with diabetic chronic kidney disease; E11.65 Type 2 diabetes mellitus with hyperglycemia; T38.0X5A Adverse effect of glucocorticoids and synthetic analogues, initial encounter; J96.01 Acute respiratory failure with hypoxia; E27.1 Primary adrenocortical insufficiency; J44.9 Chronic obstructive pulmonary disease, unspecified; D61.818 Other pancytopenia; D63.8 Anemia in other chronic diseases classified elsewhere; I34.0 Nonrheumatic mitral (valve) insufficiency; F17.200 Nicotine dependence, unspecified, uncomplicated; Z79.51 Long term (current) use of inhaled steroids; Z79.84 Long term (current) use of oral hypoglycemic drugs; Z79.4 Long term (current) use of insulin; Z79.899 Other long term (current) drug therapy; Z87.828 Personal history of other (healed) physical injury and trauma; Z98.890 Other specified postprocedural states; Z82.3 Family history of stroke; Z83.79 Family history of other diseases of the digestive system
CPT/HCPCS: 96374; 96375; 99285; 51798; 36415; 94640 ×2; 94760; 86900; 86901; 88108; 88305; 80048 ×2; 82042; 89050; 83735; 85025; 85610; 85730; 86850; 81001; 84157; 71045; 76705; 49083; G0378 ×2; P9073; J2270; P9047 ×2; J1170

== ENCOUNTER 2023-08-12 22:32 | Inpatient (IN) | payer MEDICARE, OTHER ==
[2023-08-12] MEDS ORDERED: SODIUM CHLORIDE 0.9% 500 ML 500 ML IV STA (22:56)
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
[2023-08-12 23:06] LABS: Anisocytosis Moderate; HCT 24.1 % (39.0-53.0); Hypochromasia Slight; MCH 38.5 pg (25.0-35.0); MCHC 33.5 g/dL (31.0-37.0); Macrocytosis Marked; Mean Platelet Volume 9.2; RDW 20.2 % (11.5-15.5); WBC 4.7 k/uL (3.8-10.6)
[2023-08-12 23:11] LABS: HGB 8.1 gm/dL (13.0-17.5); MCV 114.8 fL (80.0-100.0); Platelet Count 87 k/uL (150-450)
[2023-08-12 23:15] LABS: ALT 34 U/L (4-49); AST 44 U/L (17-59); African American GFR (CKD) 57 (>60 ml/min/1.73 sqM); Albumin 2.7 g/dL (3.5-5.0); Alkaline Phosphatase 199 U/L (38-126); Anion Gap 7 mmol/L; Blood Urea Nitrogen 42 mg/dL (9-20); Calcium 8.1 mg/dL (8.4-10.2); Carbon Dioxide 27 mmol/L (22-30); Chloride 100 mmol/L (98-107); Glucose 105 mg/dL (74-99); Lipase 10 U/L (23-300); Magnesium 1.9 mg/dL (1.6-2.3); Non-African American GFR(CKD) 49 (>60 ml/min/1.73 sqM); Phosphorus 3.8 mg/dL (2.5-4.5); Potassium 4.4 mmol/L (3.5-5.1); Sodium 134 mmol/L (137-145); Total Bilirubin 0.7 mg/dL (0.2-1.3); Total Protein 5.9 g/dL (6.3-8.2)
[2023-08-12 23:21] LABS: Lactic Acid, Venous 1.9 mmol/L (0.7-2.0)
[2023-08-12 23:23] LABS: NT-Pro-B-Type Natriuretic Pept 4830 pg/mL
[2023-08-12 23:26] LABS: INR 0.9 (<1.2); Partial Thromboplastin Time 22.1 sec (22.0-30.0); Prothrombin Time 10.5 sec (10.0-12.5)
[2023-08-12] MEDS ORDERED: NALOXONE 0.4 MG/ML 1 ML VIAL IV PRN (23:51)
[2023-08-13 00:13] LABS: Basophils # (M) 0.05 k/uL (0-0.2); Eosinophils # (M) 0.09 k/uL (0-0.7); Lymphocytes # (M) 1.08 k/uL (1.0-4.8); Monocytes # (M) 0.28 k/uL (0-1.0); Neutrophils % (M) 68 %; Nucleated Red Blood Cells 0 /100 WBC (0-0); Total Cells Counted 100
[2023-08-13 00:14] LABS: Anisocytosis (M) Present; Polychromasia Present
[2023-08-13] MEDS: HYDROcodone/APAP 7.5-325MG 1 EACH TAB PO PRN ×4 (02:30→23:46)
[2023-08-13 02:46] LABS: Glucose,Whole Blood 105 mg/dL (70-110)
[2023-08-13 04:40] LABS: Anisocytosis Slight; Basophils % (A) 0 %; Eosinophils % (A) 1 %; HCT 22.7 % (39.0-53.0); HGB 7.3 gm/dL (13.0-17.5); Hypochromasia Moderate; Lymphocytes # (A) 0.9 k/uL (1.0-4.8); Lymphocytes % (A) 29 %; MCH 37.1 pg (25.0-35.0); MCHC 31.9 g/dL (31.0-37.0); MCV 116.3 fL (80.0-100.0); Macrocytosis Marked; Mean Platelet Volume 9.1; Monocytes # (A) 0.2 k/uL (0-1.0); Monocytes % (A) 6 %; Neutrophils # (A) 1.9 k/uL (1.3-7.7); Neutrophils % (A) 61 %; Platelet Count 88 k/uL (150-450); RBC 1.96 m/uL (4.30-5.90); RDW 19.9 % (11.5-15.5); WBC 3.2 k/uL (3.8-10.6)
[2023-08-13 04:51] LABS: ALT 32 U/L (4-49); AST 38 U/L (17-59); African American GFR (CKD) 59 (>60 ml/min/1.73 sqM); Albumin 2.5 g/dL (3.5-5.0); Alkaline Phosphatase 166 U/L (38-126); Anion Gap 6 mmol/L; Blood Urea Nitrogen 40 mg/dL (9-20); Calcium 7.8 mg/dL (8.4-10.2); Carbon Dioxide 27 mmol/L (22-30); Chloride 100 mmol/L (98-107); Glucose 133 mg/dL (74-99); Non-African American GFR(CKD) 51 (>60 ml/min/1.73 sqM); Potassium 4.4 mmol/L (3.5-5.1); Sodium 133 mmol/L (137-145); Total Bilirubin 0.6 mg/dL (0.2-1.3); Total Protein 5.5 g/dL (6.3-8.2)
[2023-08-13] MEDS ORDERED: NITROGLYCERIN SL TABS 0.4 MG TAB SUBLINGUAL PRN (08:14)
[2023-08-13] MEDS ORDERED: ASPIRIN 325 MG TAB PO STA (08:14)
[2023-08-13] MEDS ORDERED: ATORVASTATIN 80 MG TAB PO STA (08:14)
[2023-08-13] MEDS ORDERED: ALPRAZolam 0.25 MG TAB PO PRN (08:14)
[2023-08-13] MEDS: ASPIRIN 81 MG PO SCH ×2 (08:48→08:51)
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
--- NOTE | 2023-08-13 11:04 | XR ---
EXAMINATION TYPE: XR chest 2V DATE OF EXAM: 08/13/2023 10:58 AM CLINICAL INDICATION:Male, 63 years old with history of Right rib pain; H COMPARISON: Chest radiographs from 07/25/2023 TECHNIQUE: XR chest 2V Frontal and lateral views of the chest. FINDINGS: Lungs/Pleura: There is no evidence of pleural effusion, focal consolidation, or pneumothorax. Pulmonary vascularity: Unremarkable. Heart/mediastinum: Cardiomediastinal silhouette is unremarkable. Musculoskeletal: No acute osseous pathology. Other findings: bowel is interposed between the right diaphragm and liver IMPRESSION: * No acute cardiopulmonary disease/process. * Bowel is interposed between the right diaphragm and liver, Chilaiditi sign.
[2023-08-13] MEDS: ALPRAZolam 0.5 MG TAB PO PRN (12:04)
[2023-08-13] MEDS ORDERED: FAMOTIDINE 20 MG/2 ML VIAL IV SCH (12:45)
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
[2023-08-13] MEDS ORDERED: CALCIUM CARBONATE 500 MG CHEWABLE PO PRN (15:42)
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
--- NOTE | 2023-08-13 16:48 | US ---
EXAMINATION TYPE: US abdomen limited DATE OF EXAM: 08/13/2023 COMPARISON: 07/26/2023 CLINICAL INDICATION: Male, 63 years old with history of ascites; Technique: Grayscale imaging of the 4 quadrants of the abdomen for ascites. FINDINGS: Fluid seen in all 4 abdominal quadrants IMPRESSION: Moderate to large ascites.
[2023-08-13 16:58] LABS: Glucose,Whole Blood 234 mg/dL (70-110)
[2023-08-13] MEDS: INSULIN ASPART (NovoLOG) 100 UNIT/ML VIAL SQ SCH ×2 (17:36→20:35)
[2023-08-13] MEDS: MIDODRINE 5 MG TAB PO SCH (18:40)
[2023-08-13] MEDS: SYMBICORT 160-4.5 MCG INHALER INHALATION SCH (20:07)
[2023-08-13 20:08] LABS: Glucose,Whole Blood 185 mg/dL (70-110)
[2023-08-13] MEDS: INSULIN DETEMIR (LEVEMIR) 100 UNIT/ML SYR SQ SCH (20:34)
[2023-08-13] MEDS: HYDROCORTISONE 10 MG TAB PO SCH (20:34)
[2023-08-13] MEDS: TAMSULOSIN 0.4 MG CAP.ER.24H PO SCH (20:34)
[2023-08-14 06:20] LABS: Glucose,Whole Blood 91 mg/dL (70-110)
[2023-08-14] MEDS: FAMOTIDINE 20 MG TAB PO SCH (06:28)
[2023-08-14] MEDS: FOLIC ACID 1 MG TAB PO SCH (06:28)
[2023-08-14] MEDS: MIDODRINE 5 MG TAB PO SCH ×3 (06:28→18:14)
[2023-08-14] MEDS: THIAMINE 100 MG TAB PO SCH (06:29)
[2023-08-14] MEDS: HYDROCORTISONE 20 MG TAB PO SCH (06:32)
[2023-08-14 06:58] LABS: Anisocytosis Slight; HCT 22.1 % (39.0-53.0); Hypochromasia Moderate; MCH 36.7 pg (25.0-35.0); MCHC 31.9 g/dL (31.0-37.0); MCV 114.9 fL (80.0-100.0); Macrocytosis Marked; Mean Platelet Volume 9.2; RBC 1.92 m/uL (4.30-5.90); RDW 19.6 % (11.5-15.5); WBC 2.9 k/uL (3.8-10.6)
[2023-08-14] MEDS ORDERED: HEPARIN SODIUM,PORCINE 10,000 UNIT in SODIUM CHLORIDE 0.9% 1,000 ML IRRIGATION PRN (07:00)
[2023-08-14] MEDS ORDERED: HEPARIN SODIUM,PORCINE (1 ML) 2,500 UNIT in SODIUM CHLORIDE 0.9% 250 ML IRRIGATION PRN (07:00)
[2023-08-14 07:08] LABS: Platelet Count 74 k/uL (150-450)
[2023-08-14 07:12] LABS: African American GFR (CKD) 56 (>60 ml/min/1.73 sqM); Anion Gap 6 mmol/L; Blood Urea Nitrogen 36 mg/dL (9-20); Calcium 7.9 mg/dL (8.4-10.2); Carbon Dioxide 27 mmol/L (22-30); Chloride 101 mmol/L (98-107); Glucose 74 mg/dL (74-99); Non-African American GFR(CKD) 48 (>60 ml/min/1.73 sqM); Potassium 4.2 mmol/L (3.5-5.1); Sodium 134 mmol/L (137-145)
--- NOTE | 2023-08-14 07:14 | P.PN ---
Subjective Progress Note Date: 08/14/23 Principal diagnosis: Abnormal troponin The patient is a 63-year-old gentleman with history of alcohol abuse and liver cirrhosis as well as diabetes and also chronic kidney disease was admitted to the hospital from extended care facility with generalized weakness and fatigue and shortness of breath. The troponin came in to be elevated and concerning for severe underlying coronary artery disease. Also he underwent further workup including ultrasound of the abdomen and that showed and ascites. August 142022 The patient was seen and evaluated this morning. He is hemodynamically stable beside marginally low blood pressure. No pain in the chest. He still have shortness of breath. No dizziness or lightheadedness and no heart racing or fluttering. He is maintaining normal sinus mechanism. The examination is remarkable for distended abdomen. The ultrasound of the abdomen revealed fluid in 4 quadrants. He is in process of having paracentesis. Also he is in process of having coronary angiogram. Assessment Evidence of myocardial injury Liver cirrhosis/ascites Chronic kidney disease Chronic anemia Multiple comorbid conditions Plan Continue the current medical regimen Proceed with coronary angiogram Procedure was paracentesis Follow-up with the patient Objective - Vital Signs Vital signs: Vital Signs Temp 97.6 F 08/13/23 16:30 Pulse 103 H 08/14/23 04:00 Resp 20 08/14/23 04:00 BP 112/77 08/14/23 04:00 Pulse Ox 96 08/14/23 04:00 FiO2 Intake & Output 08/13/23 08/14/23 08/14/23 18:59 06:59 18:59 Intake Total 59 Output Total 150 Balance -91 Weight 81.647 kg Intake: Oral 59 Output: Urine 150 Other: Voiding Method External Catheter External Catheter # Voids 1 - Labs CBC & Chem 7: 08/14/23 06:29 08/14/23 06:29 Labs: Abnormal Lab Results - Last 24 Hours (Table) 08/13/23 08/13/23 08/14/23 Range/Units 16:51 20:06 06:29 WBC 2.9 L (3.8-10.6) k/uL RBC 1.92 L (4.30-5.90) m/uL Hgb 7.0 L (13.0-17.5) gm/dL Hct 22.1 L (39.0-53.0) % MCV 114.9 H (80.0-100.0) fL MCH 36.7 H (25.0-35.0) pg RDW 19.6 H (11.5-15.5) % Plt Count 74 L (150-450) k/uL Macrocytosis Marked A Sodium (137-145) mmol/L BUN (9-20) mg/dL Creatinine (0.66-1.25) mg/dL POC Glucose (mg/dL) 234 H 185 H (70-110) mg/dL Calcium (8.4-10.2) mg/dL 08/14/23 Range/Units 06:29 WBC (3.8-10.6) k/uL RBC (4.30-5.90) m/uL Hgb (13.0-17.5) gm/dL Hct (39.0-53.0) % MCV (80.0-100.0) fL MCH (25.0-35.0) pg RDW (11.5-15.5) % Plt Count (150-450) k/uL Macrocytosis Sodium 134 L (137-145) mmol/L BUN 36 H (9-20) mg/dL Creatinine 1.53 H (0.66-1.25) mg/dL POC Glucose (mg/dL) (70-110) mg/dL Calcium 7.9 L (8.4-10.2) mg/dL
[2023-08-14] MEDS ORDERED: LIDOCAINE 1% INJ 10MG/ML (20 ML MDV) ONE (07:20)
[2023-08-14] MEDS ORDERED: VERAPAMIL 2.5 MG/ML 2 ML AMP ONE (07:20)
[2023-08-14] MEDS ORDERED: ASPIRIN 325 MG TAB PO ONE (07:30)
[2023-08-14] MEDS ORDERED: ASPIRIN 325 MG TAB ONE (07:32)
[2023-08-14] MEDS ORDERED: IV FLUID CONTINUATION 1,000 ML IV ONE (07:33)
[2023-08-14] MEDS ORDERED: fentaNYL (PF) 50 MCG/ML 2 ML AMP ONE (07:42)
[2023-08-14] MEDS ORDERED: MIDAZOLAM 2 MG/2 ML VIAL IVP ONE (07:43)
[2023-08-14] MEDS ORDERED: fentaNYL (PF) 50 MCG/ML 2 ML AMP IVP ONE ×2 (07:43)
[2023-08-14] MEDS ORDERED: LIDOCAINE 1% INJ 10MG/ML (5 ML VIAL-PF) SQ ONE (07:45)
[2023-08-14] MEDS ORDERED: VERAPAMIL SYRINGE (5 MG/10 ML) INTRAARTER ONE (07:51)
[2023-08-14] MEDS ORDERED: HEPARIN SODIUM 1,000 UN/ML (10ML VL) IV ONE (07:51)
[2023-08-14] MEDS ORDERED: HEPARIN SODIUM 1,000 UN/ML (10ML VL) ONE (07:52)
[2023-08-14] MEDS ORDERED: IOPAMIDOL-370 200ML BTL INJ ONE (08:08)
--- NOTE | 2023-08-14 08:39 | P.CARDCATH ---
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 He presented to the hospital with elevated troponins. For this he was scheduled for inpatient heart catheterization CONSENT: I have discussed the risks, benefits and alternative therapies for the above-mentioned procedure, sedation/analgesia and necessary blood product administration (if indicated, as they pertain to this patient). The patient has indicated understanding and acceptance of the risks and procedures discussed. Conscious Sedation: Patient's ECG, heart rate, blood pressure, pulse oximetry was monitored throughout the duration of procedure under my direct supervision. 2 mg Versed and 25 mg Fentanyl were used for induction of moderate conscious sedation. Total duration of moderate concious sedation 26 minutes. PROCEDURE: After explaining the risks, benefits and alternatives of the above mentioned procedures in detail to the patient, informed consent was obtained. Patient was taken to the catheterization lab, prepped and draped in usual sterile fashion using universal precuations. Barbow and ramses test were performed to confirm adequate perfusion to fingers. Ultrasound was used to identify the radial artery. 1% lidocaine was infiltrated over the right radial artery. A 6-Mauritanian sheath was placed and secured in the right radial artery using modified Seldinger technique. The sheath was flushed and 5 mg verapamil was administered intra-arterially. J tipped wire was advanced under fluoroscopic guidance. Once the wire tip reached aortic root 4000 units of IV heparin was given. Over the wire JL4 diagnostic catheter was advanced. It could not be advanced from right subclavian artery to aorta due to significant toxicity. This catheter was exchanged for a 5-Mauritanian Kar catheter which was passed from subclavian to aorta smoothly. Wire was removed, catheter was flushed and manipulated under fluoroscopy to selectively engaged the left coronary ostium. Left coronary angioplasty was performed in different angiographic projections. This catheter was exchanged for a JR4 diagnostic catheter over the wire. The catheter was flushed and manipulated to cross the aortic valve. LV pressures we re obtained. Pullback was performed across aortic valve and catheter was manipulated to selectively engage the right coronary ostium under fluoroscopic guidance. Right coronary angiography was performed in different angiographic projections. Catheter was removed over the wire. Radial sheath was flushed. The right radial sheath was removed and a TR band was placed with excellent patent hemostasis was achieved. The patient tolerated the procedure well. Patient was transported back to the post catheterization holding area in stable condition. Angiographic images were reviewed in detail. HEMODYNAMICS: Aortic Pressure: 96/53 mmHg. LV pressure: 90/0 mmHg. LVEDP 8 mmHg. SELECTIVE CORONARY ARTERIOGRAPHY: LEFT MAIN: The left main is a large caliber vessel which bifurcates into the LAD and circumflex. Left main appears angiographically normal. LEFT ANTERIOR DESCENDING CORONARY ARTERY: LAD is a large caliber vessel which wraps around to the apex. Proximal and mid LAD has 10-20% luminal irregularities. At the site of diagonal bifurcation there is a 20-30% disease. Diagonal is a medium-sized vessel which has mild luminal irregularities. LEFT CIRCUMFLEX CORONARY ARTERY: It is nondominant vessel. Left circumflex is a moderate caliber vessel. It has 10-20% luminal irregularities. RIGHT CORONARY ARTERY: Dominant vessel. Proximal RCA has 40-50% calcific diffuse disease. Mid RCA has 100% occlusion which appears to be a subacute stenosis. This is just at the site of RV marginal branching which will make the TYRE RETREADER wiring challenging. There are faint [id number] collaterals retrogradely filling PDA. There are not very robust. There are faint RV marginal to PDA collaterals IMPRESSION: 100% mid RCA 30% mid LAD Mild luminal irregularities in LCx Normal left sided filling pressures PLAN: DAPT therapy for ACS-NSTEMI and to see if patient can tolerate DAPT therapy If patient is able to tolerate DAPT in setting of Low Hb, low platelets and portal HTN, will plan for TYRE RETREADER intervention outpatient. 150 cc fluids for 3 hours Follow-up in the office in 1-2 weeks. Performing Physician Louie Garay MD
[2023-08-14] MEDS: SYMBICORT 160-4.5 MCG INHALER INHALATION SCH ×2 (08:43→21:34)
[2023-08-14] MEDS: INSULIN ASPART (NovoLOG) 100 UNIT/ML VIAL SQ SCH ×4 (09:09→20:27)
[2023-08-14] MEDS: HYDROcodone/APAP 7.5-325MG 1 EACH TAB PO PRN ×2 (09:14→15:47)
[2023-08-14] MEDS: BUMETANIDE 1 MG TAB PO SCH (09:14)
[2023-08-14] MEDS: DAPAGLIFLOZIN PROPANEDIOL 5 MG TABLET PO SCH (09:14)
[2023-08-14] MEDS: CHOLECALCIFEROL 25 MCG (1000 IU) TABLET PO SCH (09:43)
--- NOTE | 2023-08-14 12:10 | P.PN ---
Subjective Progress Note Date: 08/14/23 CHIEF COMPLAINT: low HGB HISTORY OF PRESENT ILLNESS: Patient lying in bed comfortably. He had heart cat heterization this morning. Patient denies any abdominal pain. Denies any nausea vomiting. Afebrile. WBC 2.9 Hgb 7.0 platelets 74 creatinine 1.53 PHYSICAL EXAM: VITAL SIGNS: Reviewed. GENERAL: Well-developed in no acute distress. HEENT: No sclera icterus. Extraocular movements grossly intact. Moist buccal mucosa. Head is atraumatic, normocephalic. ABDOMEN: Soft. Nondistended. Nontender. NEUROLOGIC: Alert and oriented. Cranial nerves II through XII grossly intact. ASSESSMENT: 1. Bowel is interposed between the right diaphragm and liver, Chilaiditi sign noted on Chest xray 2. Bilateral leg rash 3. History of liver cirrhosis and alcohol abuse 4. Thrombocytopenia 5. Elevated troponins followed by cardiology. Scheduled for heart cath. 6. Anemia with chronic anemia PLAN: -Continue supportive care -Continue to monitor -Continue regular diet Physician Associate Sales Manager note has been reviewed by physician. Signing provider agrees with the documented findings, assessment, and plan of care. Objective - Vital Signs Vital signs: Vital Signs Temp 97.7 F 08/14/23 08:34 Pulse 77 08/14/23 09:40 Resp 20 08/14/23 09:40 BP 115/85 08/14/23 09:40 Pulse Ox 99 08/14/23 09:40 FiO2 Intake & Output 08/13/23 08/14/23 08/14/23 18:59 06:59 18:59 Intake Total 59 125 Output Total 150 Balance -91 125 Weight 81.647 kg Intake: IV 125 Oral 59 0 Output: Urine 150 Other: Voiding Method External Catheter External Catheter External Catheter # Voids 1 - Labs CBC & Chem 7: 08/14/23 06:29 08/14/23 06:29 Labs: Abnormal Lab Results - Last 24 Hours (Table) 08/13/23 08/13/23 08/14/23 Range/Units 16:51 20:06 06:29 WBC 2.9 L (3.8-10.6) k/uL RBC 1.92 L (4.30-5.90) m/uL Hgb 7.0 L (13.0-17.5) gm/dL Hct 22.1 L (39.0-53.0) % MCV 114.9 H (80.0-100.0) fL MCH 36.7 H (25.0-35.0) pg RDW 19.6 H (11.5-15.5) % Plt Count 74 L (150-450) k/uL Macrocytosis Marked A Sodium (137-145) mmol/L BUN (9-20) mg/dL Creatinine (0.66-1.25) mg/dL POC Glucose (mg/dL) 234 H 185 H (70-110) mg/dL Calcium (8.4-10.2) mg/dL 08/14/23 Range/Units 06:29 WBC (3.8-10.6) k/uL RBC (4.30-5.90) m/uL Hgb (13.0-17.5) gm/dL Hct (39.0-53.0) % MCV (80.0-100.0) fL MCH (25.0-35.0) pg RDW (11.5-15.5) % Plt Count (150-450) k/uL Macrocytosis Sodium 134 L (137-145) mmol/L BUN 36 H (9-20) mg/dL Creatinine 1.53 H (0.66-1.25) mg/dL POC Glucose (mg/dL) (70-110) mg/dL Calcium 7.9 L (8.4-10.2) mg/dL
--- NOTE | 2023-08-14 12:26 | US ---
EXAMINATION TYPE: US paracentesis abd w/image DATE OF EXAM: 08/14/2023 11:33 AM CLINICAL INDICATION:Male, 63 years old with history of see IR consult for ordering information; COMPARISON: CT abdomen 08/08/2023. ATTENDING: Dr. Bolivar Farley PROCEDURE: Informed consent was obtained. The risks of the procedure were extensively explained incl uding risk of damage to surrounding bowel with perforation and need for additional procedures. Proced ure was performed in the ultrasound procedure suite. Ultrasound imaging of the abdomen demonstrate as citic fluid. An appropriate access site was localized to the right lower abdomen. Timeout was taken p er protocol. The skin was prepped and draped in the usual sterile fashion and then locally anesthetiz ed with 1% lidocaine. The peritoneal cavity was then accessed via a 5-Albanian one-step needle/cathete r. Approximately 6600 cc of clear straw-colored fluid was obtained. Samples were sent to the lab for analysis. Postprocedural imaging of the abdomen demonstrate a minimal amount of abdominal fluid. Patient tolerated procedure well without immediate complication. Hemostasis at the procedural site w as obtained with a sterile bandage placed. The patient was monitored in the holding area following th e procedure and was subsequently discharged in stable condition. IMPRESSION: Ultrasound guided paracentesis, with approximately 6600 cc of clear straw-colored fluid drained. Path ology results pending. No immediate complications were evident.
[2023-08-14 12:41] LABS: Glucose,Whole Blood 116 mg/dL (70-110)
[2023-08-14] MEDS ORDERED: ALBUMIN HUMAN 5% 500 ML in EMPTY BAG 1 BAG IVPB ONE (12:46)
--- NOTE | 2023-08-14 14:43 | P.PN ---
Subjective Progress Note Date: 08/14/23 This is a 63 year old male with medical history of COPD, Diabetes Mellitus type 2, Former smoker and former alcohol abuse, recent diagnosis of liver cirrhosis requiring paracentesis, pancytopenia, anemia of chronic disease, heart failure, COPD, bernice disease. Patient was recently admitted to the hospital for heart failure, liver cirrhosis patient underwent paracentesis and was diuresed. He was send to rehab. Patient states he has been discharged from rehab to home and has been there 3 to 4 days. He comes back in for shortness of breath and right sided rib pain states it is difficult to take a deep breath. He was discharged his previous admission on torsemide BID and recommended to continue on 1500 cc fluid restriction and low sodium diet. Patient reports fatigue generalized weakness. He denies nausea vomiting or diarrhea, denies fever or chills. Denies dizziness or lightheadedness. He denies chest pain. He had troponin elevation of 2.020 on admission which was trended at 1.860 and 1.900. ProBNP showing 4830, BUN 42, creatinine 1.52, sodium 134, hemoglobin of 8.1, platelet count of 88. Patient admitted to the hospital with cardiology consultation for the troponin elevation. Patient has been placed on IV heparin with recommendation to undergo cardiac catheterization. Chest xray done showing no acute cardiopulmonary process; incidental finding of bowel interposed between the right diaphragm and liver, chilaiditi sign. 08/14/2023 Patient evaluated today underwent cardiac catheterization this morning revealing 100% mid RCA occulsion and 30% mid LAD occlusion with plans to initiate dual antiplatelet therapy and monitor patient with plans to return for outpatient intervention. Patient has no chest pain, no shortness of breath. Additionally he had abdominal ultrasound done with moderate to large ascities underwent paracentesis with 6.6 L of fluid removed. He continues with the nonblanchable petechial rash which was discussed with general surgery and will either have skin biopsy done inpatient or follow up with dermatology outpatient. PHYSICAL EXAMINATION: GENERAL: The patient is alert and oriented x3, not in any acute distress. Well developed, well nourished. HEENT: Pupils are round and equally reacting to light. EOMI. No scleral icterus. No conjunctival pallor. Normocephalic, atraumatic. No pharyngeal erythema. No thyromegaly. CARDIOVASCULAR: S1 and S2 present. No murmurs, rubs, or gallops. PULMONARY: Chest is clear to auscultation, no wheezing or crackles. ABDOMEN: Soft, nontender, nondistended, normoactive bowel sounds. No palpable organomegaly. MUSCULOSKELETAL: No joint swelling or deformity. EXTREMITIES: No cyanosis, clubbing, or pedal edema. NEUROLOGICAL: Gross neurological examination did not reveal any focal deficits. SKIN: Patient has petichial appearing streaked rash on bilateral lower extremities Assessment Troponin elevation secondary to nstemi cardiac catheterization reveals 100% occulsion mid RCA and 30% mid LAD Liver cirrhosis, recent diagnosis requiring multiple paracentesis s/p paracentesis today with 6.6. L of fluid removed Rule out vasculitis with non blanching petichieal rash bilateral lower extremities Chronic kidney disease Pancytopenia with hematology work up previous admission Hx of COPD Anemia of chronic disease Heart failure Hx diastolic Chronic tobacco use Hx of alcohol abuse GI prophylaxis DVT prophylaxis on IV heparin Full Code Plan General surgery consultation recommending conservative management of the bowel positioning and discussed possible skin biopsy of the rash lower extremities to rule out vasculitis. Alternatively patient will be referred to follow up with dermatology outpatient for biopsy and diagonosis. Patient continues on aspirin 81 mg daily with cardiology recommending dual a ntiplatelet therapy Abdominal ultrasound reviewed and patient is status post paracentesis. Pending repeat echocardiogram Repeat labs in AM [facility]. The impression and plan of care has been dictated by Rebekah Augustin Nurse Practitioner as directed. Dr. Willard MD I have performed a history and physical examination and medical decision making of this patient, discussed the same with the dictator, and agree with the dictators assessment and plan as written, documented as a scribe. Based on total visit time, I have performed more than 50% of this visit. Objective - Vital Signs Vital signs: Vital Signs Temp 97.9 F 08/14/23 12:39 Pulse 81 08/14/23 12:39 Resp 16 08/14/23 12:40 BP 95/61 08/14/23 12:39 Pulse Ox 95 08/14/23 12:39 FiO2 Intake & Output 08/13/23 08/14/23 08/14/23 18:59 06:59 18:59 Intake Total 59 485 Output Total 150 450 Balance -91 35 Weight 81.647 kg Intake: IV 125 Oral 59 360 Output: Urine 150 450 Other: Voiding Method External Catheter External Catheter External Catheter # Voids 1 - Labs CBC & Chem 7: 08/14/23 06:29 08/14/23 06:29 Labs: Abnormal Lab Results - Last 24 Hours (Table) 08/13/23 08/13/23 08/14/23 Range/Units 16:51 20:06 06:29 WBC 2.9 L (3.8-10.6) k/uL RBC 1.92 L (4.30-5.90) m/uL Hgb 7.0 L (13.0-17.5) gm/dL Hct 22.1 L (39.0-53.0) % MCV 114.9 H (80.0-100.0) fL MCH 36.7 H (25.0-35.0) pg RDW 19.6 H (11.5-15.5) % Plt Count 74 L (150-450) k/uL Macrocytosis Marked A Sodium (137-145) mmol/L BUN (9-20) mg/dL Creatinine (0.66-1.25) mg/dL POC Glucose (mg/dL) 234 H 185 H (70-110) mg/dL Calcium (8.4-10.2) mg/dL 08/14/23 08/14/23 Range/Units 06:29 12:36 WBC (3.8-10.6) k/uL RBC (4.30-5.90) m/uL Hgb (13.0-17.5) gm/dL Hct (39.0-53.0) % MCV (80.0-100.0) fL MCH (25.0-35.0) pg RDW (11.5-15.5) % Plt Count (150-450) k/uL Macrocytosis Sodium 134 L (137-145) mmol/L BUN 36 H (9-20) mg/dL Creatinine 1.53 H (0.66-1.25) mg/dL POC Glucose (mg/dL) 116 H (70-110) mg/dL Calcium 7.9 L (8.4-10.2) mg/dL Assessment and Plan Time with Patient: Less than 30
--- NOTE | 2023-08-14 14:47 | CA ---
Transthoracic Echo Report Name: Nathaniel Abarca Age: 63 Gender: M : 1960 Exam Date: 08/14/2023 10:32 Exam Location: [facility] Ht (in): 74 Wt (lb): 180 Ordering Physician: Kylie Tan Attending/Referring Phys: [id number], Britney Television Director Nikky Willis, [place] Procedure CPT: Indications: LVF Cardiac Hx: Technical Quality: Fair Contrast 1: Total Dose (mL): Contrast 2: Total Dose (mL): MEASUREMENTS (Male / Female) Normal Values 2D ECHO RV Internal Dim ED PLAX 3.8 cm LV Diastolic Volume MOD 4C 85.2 cm??? LV Systolic Volume MOD 4C 46.4 cm??? LV Ejection Fraction MOD 4C 45.5 % LV Cardiac Index MOD 4C 1444.1 cm???/min???m??? LV Diastolic Length 4C 8.2 cm LV Systolic Length 4C 6.9 cm LV Diastolic Volume MOD 2C 92.1 cm??? LV Systolic Volume MOD 2C 42.4 cm??? LV Ejection Fraction MOD 2C 54.0 % LV Cardiac Index MOD 2C 1855.3 cm???/min???m??? LV Diastolic Length 2C 9.2 cm LV Systolic Length 2C 7.7 cm DOPPLER TR Peak Velocity 228.5 cm/s TR Peak Gradient 20.9 mmHg Right Ventricular Systolic Press 25.9 mmHg FINDINGS Left Ventricle Left ventricular ejection fraction is estimated at 45-50 %. Inferior basel wall hypokinesis Right Ventricle Mild right ventricular dilatation. Right ventricular systolic pressure within normal limits. Right Atrium Left Atrium Mitral Valve Mitral valve thickened. Mild mitral regurgitation. Aortic Valve Trileaflet aortic valve. Thickened aortic valve without stenosis. Tricuspid Valve Structurally normal tricuspid valve. Mild tricuspid regurgitation. Pulmonic Valve Pericardium No pericardial effusion. Aorta CONCLUSIONS Mild LV dysfunction with an ejection fraction of 45-50% with inferobasal hypokinesis Mild mitral regurgitation Mild RV dilatation Previewed by: Dr. Roger Lynch MD (Electronically Signed) Final Date: 14 August 2023 14:46
[2023-08-14 16:19] LABS: Glucose,Whole Blood 223 mg/dL (70-110)
[2023-08-14 19:50] LABS: Glucose,Whole Blood 250 mg/dL (70-110)
[2023-08-14] MEDS: ALPRAZolam 0.5 MG TAB PO PRN (20:27)
[2023-08-14] MEDS: INSULIN DETEMIR (LEVEMIR) 100 UNIT/ML SYR SQ SCH (20:27)
[2023-08-14] MEDS: TAMSULOSIN 0.4 MG CAP.ER.24H PO SCH (20:27)
[2023-08-15] MEDS: HYDROCORTISONE 10 MG TAB PO SCH ×2 (00:13→20:41)
[2023-08-15] MEDS: HYDROcodone/APAP 7.5-325MG 1 EACH TAB PO PRN ×4 (00:33→20:28)
[2023-08-15 05:53] LABS: Glucose,Whole Blood 181 mg/dL (70-110)
[2023-08-15] MEDS: MIDODRINE 5 MG TAB PO SCH ×3 (06:28→20:25)
[2023-08-15] MEDS: INSULIN ASPART (NovoLOG) 100 UNIT/ML VIAL SQ SCH ×4 (06:29→20:26)
[2023-08-15] MEDS ORDERED: DARBEPOETIN ALFA 40 MCG/0.4 ML SYRINGE SQ SCH (07:00)
[2023-08-15] MEDS: SYMBICORT 160-4.5 MCG INHALER INHALATION SCH ×2 (07:52→21:23)
--- NOTE | 2023-08-15 09:12 | P.PN ---
Subjective Progress Note Date: 08/15/23 Principal diagnosis: Abnormal troponin The patient is a 63-year-old gentleman with history of alcohol abuse and liver cirrhosis as well as diabetes and also chronic kidney disease was admitted to the hospital from extended care facility with generalized weakness and fatigue and shortness of breath. The troponin came in to be elevated and concerning for severe underlying coronary artery disease. Also he underwent further workup including ultrasound of the abdomen and that showed and ascites. August 142022 The patient was seen and evaluated this morning. He is hemodynamically stable beside marginally low blood pressure. No pain in the chest. He still have shortness of breath. No dizziness or lightheadedness and no heart racing or fluttering. He is maintaining normal sinus mechanism. The examination is remarkable for distended abdomen. The ultrasound of the abdomen revealed fluid in 4 quadrants. He is in process of having paracentesis. Also he is in process of having coronary angiogram. 08/15/2023 The patient was seen and evaluated this morning. He is feeling better. He underwent paracentesis yesterday. Pressure still marginal but he is tachy cardic. I'm going to start him on a small dose of beta izaiah and see if the pressure with a total period that. The echo showed mild cardiomyopathy with an ejection fraction between 40-45%. He underwent heart catheterization yesterday and was found to have occluded right coronary artery which would be treated medically. He is on aspirin. He got the on a statin in the light of liver cirrhosis Assessment Coronary artery disease with occluded right coronary artery subacute versus chronic Evidence of myocardial injury Liver cirrhosis/ascites Chronic kidney disease Chronic anemia Status post paracentesis Plan Continue the current medical regimen Continue aspirin. He got be on statin Start the patient on small dose of beta izaiah Monitor the blood pressure and the hemoglobin very closely Follow-up with the patient Objective - Vital Signs Vital signs: Vital Signs Temp 98.1 F 08/14/23 15:44 Pulse 97 08/15/23 04:00 Resp 16 08/15/23 04:00 BP 93/41 08/15/23 04:00 Pulse Ox 93 L 08/15/23 04:00 FiO2 Intake & Output 08/14/23 08/15/23 08/15/23 18:59 06:59 18:59 Intake Total 725 Output Total 1100 800 Balance -375 -800 Intake: IV 125 Oral 600 Output: Urine 1100 800 Other: Voiding Method External Catheter External Catheter # Bowel Movements 1 - Labs CBC & Chem 7: 08/14/23 06:29 08/14/23 06:29 Labs: Abnormal Lab Results - Last 24 Hours (Table) 08/14/23 08/14/23 08/14/23 Range/Units 12:36 16:17 19:48 POC Glucose (mg/dL) 116 H 223 H 250 H (70-110) mg/dL 08/15/23 Range/Units 05:50 POC Glucose (mg/dL) 181 H (70-110) mg/dL
[2023-08-15 09:41] LABS: Anisocytosis Slight; HCT 23.5 % (39.0-53.0); HGB 7.4 gm/dL (13.0-17.5); Hypochromasia Moderate; MCHC 31.7 g/dL (31.0-37.0); Macrocytosis Marked; Mean Platelet Volume 9.4; RBC 2.01 m/uL (4.30-5.90); RDW 19.9 % (11.5-15.5); WBC 3.2 k/uL (3.8-10.6)
[2023-08-15] MEDS: HYDROCORTISONE 20 MG TAB PO SCH (09:45)
[2023-08-15] MEDS: FOLIC ACID 1 MG TAB PO SCH (09:45)
[2023-08-15] MEDS: ALPRAZolam 0.5 MG TAB PO PRN (09:45)
[2023-08-15] MEDS: FAMOTIDINE 20 MG TAB PO SCH (09:45)
[2023-08-15] MEDS: ASPIRIN 81 MG PO SCH (09:45)
[2023-08-15] MEDS: DAPAGLIFLOZIN PROPANEDIOL 5 MG TABLET PO SCH (09:45)
[2023-08-15] MEDS: THIAMINE 100 MG TAB PO SCH (09:45)
[2023-08-15] MEDS: BUMETANIDE 1 MG TAB PO SCH (09:45)
[2023-08-15] MEDS: CHOLECALCIFEROL 25 MCG (1000 IU) TABLET PO SCH (09:45)
[2023-08-15 09:49] LABS: African American GFR (CKD) 64 (>60 ml/min/1.73 sqM); Anion Gap 7 mmol/L; Blood Urea Nitrogen 34 mg/dL (9-20); Calcium 7.8 mg/dL (8.4-10.2); Carbon Dioxide 25 mmol/L (22-30); Chloride 101 mmol/L (98-107); Glucose 163 mg/dL (74-99); Non-African American GFR(CKD) 55 (>60 ml/min/1.73 sqM); Potassium 4.1 mmol/L (3.5-5.1); Sodium 133 mmol/L (137-145)
[2023-08-15 09:50] LABS: Platelet Count 78 k/uL (150-450)
[2023-08-15] MEDS: METOPROLOL TARTRATE 12.5 MG TAB PO SCH ×2 (09:50→20:26)
[2023-08-15 11:38] LABS: Glucose,Whole Blood 157 mg/dL (70-110)
--- NOTE | 2023-08-15 12:49 | P.PN ---
Subjective Progress Note Date: 08/15/23 This is a 63 year old male with medical history of COPD, Diabetes Mellitus type 2, Former smoker and former alcohol abuse, recent diagnosis of liver cirrhosis requiring paracentesis, pancytopenia, anemia of chronic disease, heart failure, COPD, bernice disease. Patient was recently admitted to the hospital for heart failure, liver cirrhosis patient underwent paracentesis and was diuresed. He was send to rehab. Patient states he has been discharged from rehab to home and has been there 3 to 4 days. He comes back in for shortness of breath and right sided rib pain states it is difficult to take a deep breath. He was discharged his previous admission on torsemide BID and recommended to continue on 1500 cc fluid restriction and low sodium diet. Patient reports fatigue generalized weakness. He denies nausea vomiting or diarrhea, denies fever or chills. Denies dizziness or lightheadedness. He denies chest pain. He had troponin elevation of 2.020 on admission which was trended at 1.860 and 1.900. ProBNP showing 4830, BUN 42, creatinine 1.52, sodium 134, hemoglobin of 8.1, platelet count of 88. Patient admitted to the hospital with cardiology consultation for the troponin elevation. Patient has been placed on IV heparin with recommendation to undergo cardiac catheterization. Chest xray done showing no acute cardiopulmonary process; incidental finding of bowel interposed between the right diaphragm and liver, chilaiditi sign. 08/14/2023 Patient evaluated today underwent cardiac catheterization this morning revealing 100% mid RCA occulsion and 30% mid LAD occlusion with plans to initiate dual antiplatelet therapy and monitor patient with plans to return for outpatient intervention. Patient has no chest pain, no shortness of breath. Additionally he had abdominal ultrasound done with moderate to large ascities underwent paracentesis with 6.6 L of fluid removed. He continues with the nonblanchable petechial rash which was discussed with general surgery and will either have skin biopsy done inpatient or follow up with dermatology outpatient. 08/15/2023 Patient is status post cardiac catheterization has been started on dual antiplatelet medication with aspirin and plavix with plans to come back outpatient for intervention. S/P paracentesis. Pending skin biopsy and PT/OT evaluation. Echocardiogram reveals an EF of 45-50%. PHYSICAL EXAMINATION: GENERAL: The patient is alert and oriented x3, not in any acute distress. Well developed, well nourished. HEENT: Pupils are round and equally reacting to light. EOMI. No scleral icterus. No conjunctival pallor. Normocephalic, atraumatic. No pharyngeal erythema. No thyromegaly. CARDIOVASCULAR: S1 and S2 present. No murmurs, rubs, or gallops. PULMONARY: Chest is clear to auscultation, no wheezing or crackles. ABDOMEN: Soft, nontender, nondistended, normoactive bowel sounds. No palpable organomegaly. MUSCULOSKELETAL: No joint swelling or deformity. EXTREMITIES: No cyanosis, clubbing, or pedal edema. NEUROLOGICAL: Gross neurological examination did not reveal any focal deficits. SKIN: Patient has petichial appearing streaked rash on bilateral lower extremities Assessment Troponin elevation secondary to nstemi cardiac catheterization reveals 100% occulsion mid RCA and 30% mid LAD Liver cirrhosis, recent diagnosis requiring multiple paracentesis s/p paracentesis today with 6.6. L of fluid removed Rule out vasculitis with non blanching petichieal rash bilateral lower extremities Chronic kidney disease Pancytopenia with hematology work up previous admission Hx of COPD Anemia of chronic disease Heart failure Hx diastolic Chronic tobacco use Hx of alcohol abuse GI prophylaxis DVT prophylaxis on IV heparin Full Code Plan General surgery consultation recommending conservative management of the bowel positioning and discussed possible skin biopsy of the rash lower extremities to rule out vasculitis. Alternatively patient will be referred to follow up with dermatology outpatient for biopsy and diagonosis. Patient continues on aspirin 81 mg daily with cardiology recommending dual antiplatelet therapy Started on low dose beta izaiah. Abdominal ultrasound reviewed and patient is status post paracentesis. Patient cannot be on a statin due to the liver cirrhosis. Repeat labs in AM Return to [facility] on discharge. The impression and plan of care has been dictated by Rebekah Augustin Nurse Practitioner as directed. Dr. Julien MD I have performed a history and physical examination and medical decision making of this patient, discussed the same with the dictator, and agree with the dictators assessment and plan as written, documented as a scribe. Based on total visit time, I have performed more than 100% of this visit. Objective - Vital Signs Vital signs: Vital Signs Temp 98.3 F 08/15/23 08:00 Pulse 97 08/15/23 08:00 Resp 18 08/15/23 08:00 BP 99/62 08/15/23 08:00 Pulse Ox 100 08/15/23 08:00 FiO2 Intake & Output 08/14/23 08/15/23 08/15/23 18:59 06:59 18:59 Intake Total 725 Output Total 1100 800 Balance -375 -800 Intake: IV 125 Oral 600 Output: Urine 1100 800 Other: Voiding Method External Catheter External Catheter # Bowel Movements 1 - Labs CBC & Chem 7: 08/15/23 09:01 08/15/23 09:01 Labs: Abnormal Lab Results - Last 24 Hours (Table) 08/14/23 08/14/23 08/14/23 Range/Units 12:36 16:17 19:48 WBC (3.8-10.6) k/uL RBC (4.30-5.90) m/uL Hgb (13.0-17.5) gm/dL Hct (39.0-53.0) % MCV (80.0-100.0) fL MCH (25.0-35.0) pg RDW (11.5-15.5) % Plt Count (150-450) k/uL Macrocytosis Sodium (137-145) mmol/L BUN (9-20) mg/dL Creatinine (0.66-1.25) mg/dL Glucose (74-99) mg/dL POC Glucose (mg/dL) 116 H 223 H 250 H (70-110) mg/dL Calcium (8.4-10.2) mg/dL 08/15/23 08/15/23 08/15/23 Range/Units 05:50 09:01 09:01 WBC 3.2 L (3.8-10.6) k/uL RBC 2.01 L (4.30-5.90) m/uL Hgb 7.4 L (13.0-17.5) gm/dL Hct 23.5 L (39.0-53.0) % MCV 117.0 H (80.0-100.0) fL MCH 37.0 H (25.0-35.0) pg RDW 19.9 H (11.5-15.5) % Plt Count 78 L (150-450) k/uL Macrocytosis Marked A Sodium 133 L (137-145) mmol/L BUN 34 H (9-20) mg/dL Creatinine 1.38 H (0.66-1.25) mg/dL Glucose 163 H (74-99) mg/dL POC Glucose (mg/dL) 181 H (70-110) mg/dL Calcium 7.8 L (8.4-10.2) mg/dL Assessment and Plan Time with Patient: Less than 30
[2023-08-15 16:30] LABS: Glucose,Whole Blood 325 mg/dL (70-110)
[2023-08-15 20:16] LABS: Glucose,Whole Blood 392 mg/dL (70-110)
[2023-08-15] MEDS: INSULIN DETEMIR (LEVEMIR) 100 UNIT/ML SYR SQ SCH (20:26)
[2023-08-15] MEDS: TAMSULOSIN 0.4 MG CAP.ER.24H PO SCH (20:26)
[2023-08-15] MEDS: ALBUTEROL HFA INHALER INHALATION PRN (21:23)
[2023-08-16] MEDS: HYDROcodone/APAP 7.5-325MG 1 EACH TAB PO PRN ×3 (01:51→21:15)
[2023-08-16] MEDS: ALBUTEROL HFA INHALER INHALATION PRN ×5 (03:35→19:55)
[2023-08-16 05:54] LABS: Glucose,Whole Blood 278 mg/dL (70-110)
[2023-08-16] MEDS: ALPRAZolam 0.5 MG TAB PO PRN ×2 (06:14→21:17)
[2023-08-16] MEDS: MIDODRINE 5 MG TAB PO SCH ×3 (06:14→17:32)
[2023-08-16] MEDS: INSULIN ASPART (NovoLOG) 100 UNIT/ML VIAL SQ SCH ×4 (06:14→20:41)
[2023-08-16 09:19] LABS: Anisocytosis Slight; HCT 23.4 % (39.0-53.0); HGB 7.4 gm/dL (13.0-17.5); Hypochromasia Moderate; MCH 37.5 pg (25.0-35.0); MCHC 31.6 g/dL (31.0-37.0); MCV 118.4 fL (80.0-100.0); Macrocytosis Marked; Mean Platelet Volume 8.9; RBC 1.98 m/uL (4.30-5.90); RDW 19.9 % (11.5-15.5); WBC 4.3 k/uL (3.8-10.6)
[2023-08-16] MEDS ORDERED: FUROSEMIDE 10 MG/ML 2 ML VIAL IV ONE ×2 (09:19→18:00)
[2023-08-16] MEDS: SYMBICORT 160-4.5 MCG INHALER INHALATION SCH ×2 (09:20→19:55)
[2023-08-16] MEDS: METOPROLOL TARTRATE 12.5 MG TAB PO SCH ×2 (09:22→20:27)
[2023-08-16] MEDS: HYDROCORTISONE 20 MG TAB PO SCH (09:24)
[2023-08-16] MEDS: DAPAGLIFLOZIN PROPANEDIOL 5 MG TABLET PO SCH (09:24)
[2023-08-16] MEDS: ASPIRIN 81 MG PO SCH (09:24)
[2023-08-16] MEDS: FOLIC ACID 1 MG TAB PO SCH (09:24)
[2023-08-16] MEDS: FAMOTIDINE 20 MG TAB PO SCH (09:24)
[2023-08-16] MEDS: CHOLECALCIFEROL 25 MCG (1000 IU) TABLET PO SCH (09:24)
[2023-08-16] MEDS: BUMETANIDE 1 MG TAB PO SCH (09:25)
[2023-08-16] MEDS: THIAMINE 100 MG TAB PO SCH (09:25)
--- NOTE | 2023-08-16 09:31 | P.PN ---
Subjective Progress Note Date: 08/16/23 Principal diagnosis: Abnormal troponin The patient is a 63-year-old gentleman with history of alcohol abuse and liver cirrhosis as well as diabetes and also chronic kidney disease was admitted to the hospital from extended care facility with generalized weakness and fatigue and shortness of breath. The troponin came in to be elevated and concerning for severe underlying coronary artery disease. Also he underwent further workup including ultrasound of the abdomen and that showed and ascites. August 142022 The patient was seen and evaluated this morning. He is hemodynamically stable beside marginally low blood pressure. No pain in the chest. He still have shortness of breath. No dizziness or lightheadedness and no heart racing or fluttering. He is maintaining normal sinus mechanism. The examination is remarkable for distended abdomen. The ultrasound of the abdomen revealed fluid in 4 quadrants. He is in process of having paracentesis. Also he is in process of having coronary angiogram. 08/15/2023 The patient was seen and evaluated this morning. He is feeling better. He underwent paracentesis yesterday. Pressure still marginal but he is tachy cardic. I'm going to start him on a small dose of beta izaiah and see if the pressure with a total period that. The echo showed mild cardiomyopathy with an ejection fraction between 40-45%. He underwent heart catheterization yesterday and was found to have occluded right coronary artery which would be treated medically. He is on aspirin. He got the on a statin in the light of liver cirrhosis 08/16/2023 The patient was seen and evaluated this morning he is short of breath and he is wheezing. He is not quite hypoxic go. I am concerned about severe anemia giving his baseline hemoglobin which is low. I'm going to order a chest x-ray and BNP proBNP and hemoglobin. He is in process of receiving Lasix IV once. He is making urine. The examination is remarkable for bilateral expiratory wheezing and bilateral lower extremity to the Assessment Coronary artery disease with occluded right coronary artery subacute versus chronic Evidence of myocardial injury Liver cirrhosis/ascites Chronic kidney disease Chronic anemia Status post paracentesis Plan Continue the current medical regimen Obtain a chest x-ray and in the proBNP and hemoglobin stat Agree with the dose of Lasix IV Follow-up with the patient Objective - Vital Signs Vital signs: Vital Signs Temp 97.8 F 08/16/23 08:10 Pulse 94 08/16/23 08:10 Resp 20 08/16/23 08:10 BP 87/60 08/16/23 08:10 Pulse Ox 92 L 08/16/23 09:20 FiO2 Intake & Output 08/15/23 08/16/23 08/16/23 18:59 06:59 18:59 Intake Total 240 Output Total 400 Balance -400 240 Weight 129.5 kg Intake: Oral 240 Output: Urine 400 Other: Voiding Method External Catheter External Catheter # Voids 1 # Bowel Movements 1 - Labs CBC & Chem 7: 08/15/23 09:01 08/15/23 09:01 Labs: Abnormal Lab Results - Last 24 Hours (Table) 08/15/23 08/15/23 08/15/23 Range/Units 09:01 09:01 11:36 WBC 3.2 L (3.8-10.6) k/uL RBC 2.01 L (4.30-5.90) m/uL Hgb 7.4 L (13.0-17.5) gm/dL Hct 23.5 L (39.0-53.0) % MCV 117.0 H (80.0-100.0) fL MCH 37.0 H (25.0-35.0) pg RDW 19.9 H (11.5-15.5) % Plt Count 78 L (150-450) k/uL Macrocytosis Marked A Sodium 133 L (137-145) mmol/L BUN 34 H (9-20) mg/dL Creatinine 1.38 H (0.66-1.25) mg/dL Glucose 163 H (74-99) mg/dL POC Glucose (mg/dL) 157 H (70-110) mg/dL Calcium 7.8 L (8.4-10.2) mg/dL 08/15/23 08/15/23 08/16/23 Range/Units 16:29 20:15 05:53 WBC (3.8-10.6) k/uL RBC (4.30-5.90) m/uL Hgb (13.0-17.5) gm/dL Hct (39.0-53.0) % MCV (80.0-100.0) fL MCH (25.0-35.0) pg RDW (11.5-15.5) % Plt Count (150-450) k/uL Macrocytosis Sodium (137-145) mmol/L BUN (9-20) mg/dL Creatinine (0.66-1.25) mg/dL Glucose (74-99) mg/dL POC Glucose (mg/dL) 325 H 392 H 278 H (70-110) mg/dL Calcium (8.4-10.2) mg/dL
[2023-08-16 09:37] LABS: Platelet Count 79 k/uL (150-450)
[2023-08-16 09:38] LABS: African American GFR (CKD) 58 (>60 ml/min/1.73 sqM); Anion Gap 8 mmol/L; Blood Urea Nitrogen 34 mg/dL (9-20); Calcium 7.7 mg/dL (8.4-10.2); Carbon Dioxide 26 mmol/L (22-30); Chloride 99 mmol/L (98-107); Glucose 231 mg/dL (74-99); Non-African American GFR(CKD) 50 (>60 ml/min/1.73 sqM); Sodium 133 mmol/L (137-145)
--- NOTE | 2023-08-16 10:04 | XR ---
EXAMINATION TYPE: XR chest 1V portable DATE OF EXAM: 08/16/2023 HISTORY: Shortness of breath. COMPARISON: 08/13/2023 TECHNIQUE: Single view of the chest is submitted. FINDINGS: Demonstrated are scattered senescent parenchymal change. Chronic elevation right hemidiaphragm with pleural calcification is noted. There is no evidence for focal infiltrate. The heart is stable. Hilar and mediastinal structures are within normal limits. Degenerative changes are seen of the dorsal spine. IMPRESSION: 1. Chronic changes without evidence for acute pulmonary disease.
[2023-08-16] MEDS: ALBUMIN HUMAN 25% 50 ML in EMPTY BAG 1 BAG IVPB SCH ×2 (11:01→12:24)
[2023-08-16 11:36] LABS: Glucose,Whole Blood 264 mg/dL (70-110)
--- NOTE | 2023-08-16 14:27 | P.PN ---
Subjective Progress Note Date: 08/16/23 * 63 year old male with medical history of COPD, Diabetes Mellitus type 2, Former smoker and former alcohol abuse, recent diagnosis of liver cirrhosis requiring paracentesis, pancytopenia, anemia of chronic disease, heart failure, COPD, bernice disease. Patient was recently admitted to the hospital for heart failure, liver cirrhosis patient underwent paracentesis and was diuresed. He was send to rehab. Patient states he has been discharged from rehab to home and has been there 3 to 4 days. He comes back in for shortness of breath and right sided rib pain states it is difficult to take a deep breath. He was discharged his previous admission on torsemide BID and recommended to continue on 1500 cc fluid restriction and low sodium diet. Patient reports fatigue generalized weakness. He denies nausea vomiting or diarrhea, denies fever or chills. Denies dizziness or lightheadedness. He denies chest pain. He had troponin elevation of 2.020 on admission which was trended at 1.860 and 1.900. ProBNP showing 4830, BUN 42, creatinine 1.52, sodium 134, hemoglobin of 8.1, platelet count of 88. Patient admitted to the hospital with cardiology consultation for the troponin elevation. Patient has been placed on IV heparin with recommendation to undergo cardiac catheterization. Chest xray done showing no acute cardiopulmonary process; incidental finding of bowel interposed between the right diaphragm and liver, chilaiditi sign. * 08/14/2023 Patient evaluated today underwent cardiac catheterization this morning revealing 100% mid RCA occulsion and 30% mid LAD occlusion with plans to initiate dual antiplatelet therapy and monitor patient with plans to return for outpatient intervention. Patient has no chest pain, no shortness of breath. Additionally he had abdominal ultrasound done with moderate to large ascities underwent paracentesis with 6.6 L of fluid removed. He continues with the nonblanchable petechial rash which was discussed with general surgery and will either have skin biopsy done inpatient or follow up with dermatology outpatient. * 08/15/2023 Patient is status post cardiac catheterization has been started on dual antiplatelet medication with aspirin and plavix with plans to come back outpatient for intervention. S/P paracentesis. Pending skin biopsy and PT/OT evaluation. Echocardiogram reveals an EF of 45-50%. * 08/16/2023: Patient seen and evaluated at bedside, patient noted to have episode of hypotension, patient given 1 dose of Lasix along with albumin supplementation, chest x-ray obtained showed chronic changes scattered parenchymal changes elevated right diaphragm. Patient shortness of breath improved after Lasix he had episode of wheezing as well. We'll follow-up on CBC, hemoglobin stable at 7.4. Transfuse if continues to have symptomatic shortness of breath, N-terminal proBNP 3670 PHYSICAL EXAMINATION: GENERAL: The patient is alert and oriented x3, ill appearance, pale appearance, nasal cannula in place HEENT: Pupils are round and equally reacting to light. EOMI. CARDIOVASCULAR: S1 and S2 present. No murmurs, rubs, or gallops. PULMONARY: Decreased breath sounds bilaterally ABDOMEN: Soft, nontender, distended, ascites present MUSCULOSKELETAL: No joint swelling or deformity. EXTREMITIES: Bilateral leg edema NEUROLOGICAL: Gross neurological examination did not reveal any focal deficits. SKIN: Patient has petichial appearing streaked rash on bilateral lower extremities Objective - Vital Signs Vital signs: Vital Signs Temp 97.8 F 08/16/23 11:32 Pulse 65 08/16/23 11:32 Resp 20 08/16/23 11:32 BP 138/76 08/16/23 11:32 Pulse Ox 92 L 08/16/23 11:32 FiO2 Intake & Output 08/15/23 08/16/23 08/16/23 18:59 06:59 18:59 Intake Total 250 Output Total 400 Balance -400 250 Weight 129.5 kg Intake: IV 10 Invasive Line 2 10 Oral 240 Output: Urine 400 Other: Voiding Method External Catheter External Catheter External Catheter # Voids 1 # Bowel Movements 1 - Labs CBC & Chem 7: 08/16/23 08:37 08/16/23 08:37 Labs: Abnormal Lab Results - Last 24 Hours (Table) 08/15/23 08/15/23 08/16/23 Range/Units 16:29 20:15 05:53 RBC (4.30-5.90) m/uL Hgb (13.0-17.5) gm/dL Hct (39.0-53.0) % MCV (80.0-100.0) fL MCH (25.0-35.0) pg RDW (11.5-15.5) % Plt Count (150-450) k/uL Macrocytosis Sodium (137-145) mmol/L BUN (9-20) mg/dL Creatinine (0.66-1.25) mg/dL Glucose (74-99) mg/dL POC Glucose (mg/dL) 325 H 392 H 278 H (70-110) mg/dL Calcium (8.4-10.2) mg/dL 08/16/23 08/16/23 08/16/23 Range/Units 08:37 08:37 11:29 RBC 1.98 L (4.30-5.90) m/uL Hgb 7.4 L (13.0-17.5) gm/dL Hct 23.4 L (39.0-53.0) % MCV 118.4 H (80.0-100.0) fL MCH 37.5 H (25.0-35.0) pg RDW 19.9 H (11.5-15.5) % Plt Count 79 L (150-450) k/uL Macrocytosis Marked A Sodium 133 L (137-145) mmol/L BUN 34 H (9-20) mg/dL Creatinine 1.50 H (0.66-1.25) mg/dL Glucose 231 H (74-99) mg/dL POC Glucose (mg/dL) 264 H (70-110) mg/dL Calcium 7.7 L (8.4-10.2) mg/dL Assessment and Plan Assessment: Assessment * Troponin elevation secondary to nstemi cardiac catheterization reveals 100% occulsion mid RCA and 30% mid LAD * Liver cirrhosis, recent diagnosis requiring multiple paracentesis s/p paracentesis with 6.6. L of fluid removed 08/14/23 * non blanching petichieal rash bilateral lower extremities to rule out vasculitis * Chronic kidney disease * Pancytopenia with hematology work up previous admission * Hx of COPD * Anemia of chronic disease * Heart failure Hx diastolic * Chronic tobacco use * Hx of alcohol abuse * General surgery consultation recommending conservative management of the bowel positioning and discussed skin biopsy of the rash lower extremities to rule out vasculitis. Alternatively patient will be referred to follow up with dermatology outpatient for biopsy and diagonosis. * In regards to elevated troponin and coronary artery disease continue medical management on aspirin, not on statin secondary to liver cirrhosis, on metoprolol with parametrial * In regards to congestive heart failure diastolic dysfunction patient given 1 dose of Lasix, continue patient on oral Bumex, cardiology following * In regards to hypotension, likely secondary to underlying cirrhosis, autonomic etiology, third spacing continue Midodrin * Patient will need to be discharged to subacute rehab Time with Patient: Greater than 30
[2023-08-16 16:32] LABS: Glucose,Whole Blood 355 mg/dL (70-110)
[2023-08-16 20:10] LABS: Glucose,Whole Blood 470 mg/dL (70-110)
[2023-08-16] MEDS: TAMSULOSIN 0.4 MG CAP.ER.24H PO SCH (20:41)
[2023-08-16] MEDS: INSULIN DETEMIR (LEVEMIR) 100 UNIT/ML SYR SQ SCH (20:41)
[2023-08-16] MEDS: HYDROCORTISONE 10 MG TAB PO SCH (20:42)
[2023-08-16] MEDS ORDERED: INSULIN ASPART (NovoLOG) 100 UNIT/ML VIAL SQ ONE (21:00)
[2023-08-17 05:50] LABS: Glucose,Whole Blood 160 mg/dL (70-110)
[2023-08-17] MEDS: MIDODRINE 5 MG TAB PO SCH ×3 (05:55→19:47)
[2023-08-17] MEDS: INSULIN ASPART (NovoLOG) 100 UNIT/ML VIAL SQ SCH ×4 (05:56→22:15)
[2023-08-17] MEDS: SYMBICORT 160-4.5 MCG INHALER INHALATION SCH ×2 (07:21→19:35)
[2023-08-17] MEDS: ALBUTEROL HFA INHALER INHALATION PRN ×2 (07:22→19:35)
[2023-08-17] MEDS: FAMOTIDINE 20 MG TAB PO SCH (08:40)
[2023-08-17] MEDS: FOLIC ACID 1 MG TAB PO SCH (08:40)
[2023-08-17] MEDS: HYDROCORTISONE 20 MG TAB PO SCH (08:40)
[2023-08-17] MEDS: BUMETANIDE 1 MG TAB PO SCH (08:40)
[2023-08-17] MEDS: THIAMINE 100 MG TAB PO SCH (08:40)
[2023-08-17] MEDS: METOPROLOL TARTRATE 12.5 MG TAB PO SCH ×2 (08:40→22:24)
[2023-08-17] MEDS: ASPIRIN 81 MG PO SCH (08:40)
[2023-08-17] MEDS: CHOLECALCIFEROL 25 MCG (1000 IU) TABLET PO SCH (08:40)
[2023-08-17] MEDS: DAPAGLIFLOZIN PROPANEDIOL 5 MG TABLET PO SCH (08:40)
[2023-08-17] MEDS: HYDROcodone/APAP 7.5-325MG 1 EACH TAB PO PRN ×2 (08:42→22:15)
[2023-08-17 09:25] LABS: Anisocytosis Slight; HCT 22.1 % (39.0-53.0); Hypochromasia Marked; MCH 37.6 pg (25.0-35.0); MCHC 31.5 g/dL (31.0-37.0); MCV 119.4 fL (80.0-100.0); Macrocytosis Marked; Mean Platelet Volume 9.7; RBC 1.85 m/uL (4.30-5.90); RDW 19.8 % (11.5-15.5)
[2023-08-17 09:33] LABS: African American GFR (CKD) 65 (>60 ml/min/1.73 sqM); Anion Gap 7 mmol/L; Blood Urea Nitrogen 35 mg/dL (9-20); Calcium 7.8 mg/dL (8.4-10.2); Carbon Dioxide 27 mmol/L (22-30); Chloride 100 mmol/L (98-107); Glucose 182 mg/dL (74-99); Non-African American GFR(CKD) 56 (>60 ml/min/1.73 sqM); Platelet Count 64 k/uL (150-450); Potassium 4.2 mmol/L (3.5-5.1); Sodium 134 mmol/L (137-145)
--- NOTE | 2023-08-17 09:53 | P.PN ---
Subjective Progress Note Date: 08/17/23 Principal diagnosis: Abnormal troponin The patient is a 63-year-old gentleman with history of alcohol abuse and liver cirrhosis as well as diabetes and also chronic kidney disease was admitted to the hospital from extended care facility with generalized weakness and fatigue and shortness of breath. The troponin came in to be elevated and concerning for severe underlying coronary artery disease. Also he underwent further workup including ultrasound of the abdomen and that showed and ascites. August 142022 The patient was seen and evaluated this morning. He is hemodynamically stable beside marginally low blood pressure. No pain in the chest. He still have shortness of breath. No dizziness or lightheadedness and no heart racing or fluttering. He is maintaining normal sinus mechanism. The examination is remarkable for distended abdomen. The ultrasound of the abdomen revealed fluid in 4 quadrants. He is in process of having paracentesis. Also he is in process of having coronary angiogram. 08/15/2023 The patient was seen and evaluated this morning. He is feeling better. He underwent paracentesis yesterday. Pressure still marginal but he is tachy cardic. I'm going to start him on a small dose of beta izaiah and see if the pressure with a total period that. The echo showed mild cardiomyopathy with an ejection fraction between 40-45%. He underwent heart catheterization yesterday and was found to have occluded right coronary artery which would be treated medically. He is on aspirin. He got the on a statin in the light of liver cirrhosis 08/16/2023 The patient was seen and evaluated this morning he is short of breath and he is wheezing. He is not quite hypoxic go. I am concerned about severe anemia giving his baseline hemoglobin which is low. I'm going to order a chest x-ray and BNP proBNP and hemoglobin. He is in process of receiving Lasix IV once. He is making urine. The examination is remarkable for bilateral expiratory wheezing and bilateral lower extremity edema 08/17/2023 The patient was seen and evaluated this morning. He is a stable. The shortness of breath has improved. The hemoglobin is 7.0. He seems to be euvolemic on examination. The exam is remarkable for mild bilateral lower extremity is edema only. From the cardiac vascular standpoint of view, the patient potentially can be discharged in the next 12-24 hours. Assessment Coronary artery disease with occluded right coronary artery subacute versus chronic Evidence of myocardial injury Liver cirrhosis/ascites Chronic kidney disease Chronic anemia Status post paracentesis Plan Continue the current medical regimen The patient can be discharged in the next 12-24 hours Objective - Vital Signs Vital signs: Vital Signs Temp 97.7 F 08/17/23 08:00 Pulse 97 08/17/23 08:00 Resp 16 08/17/23 08:00 BP 96/67 08/17/23 08:00 Pulse Ox 96 08/17/23 08:00 FiO2 Intake & Output 08/16/23 08/17/23 08/17/23 18:59 06:59 18:59 Intake Total 486 59 Output Total 900 500 Balance -414 -500 59 Intake: IV 10 Invasive Line 2 10 Oral 476 59 Output: Urine 900 500 Other: Voiding Method External Catheter External Catheter - Labs CBC & Chem 7: 08/17/23 07:44 08/17/23 07:44 Labs: Abnormal Lab Results - Last 24 Hours (Table) 08/16/23 08/16/23 08/16/23 Range/Units 11:29 16:31 20:09 RBC (4.30-5.90) m/uL Hgb (13.0-17.5) gm/dL Hct (39.0-53.0) % MCV (80.0-100.0) fL MCH (25.0-35.0) pg RDW (11.5-15.5) % Plt Count (150-450) k/uL Macrocytosis Sodium (137-145) mmol/L BUN (9-20) mg/dL Creatinine (0.66-1.25) mg/dL Glucose (74-99) mg/dL POC Glucose (mg/dL) 264 H 355 H 470 H (70-110) mg/dL Calcium (8.4-10.2) mg/dL 08/17/23 08/17/23 08/17/23 Range/Units 05:49 07:44 07:44 RBC 1.85 L (4.30-5.90) m/uL Hgb 7.0 L (13.0-17.5) gm/dL Hct 22.1 L (39.0-53.0) % MCV 119.4 H (80.0-100.0) fL MCH 37.6 H (25.0-35.0) pg RDW 19.8 H (11.5-15.5) % Plt Count 64 L (150-450) k/uL Macrocytosis Marked A Sodium 134 L (137-145) mmol/L BUN 35 H (9-20) mg/dL Creatinine 1.36 H (0.66-1.25) mg/dL Glucose 182 H (74-99) mg/dL POC Glucose (mg/dL) 160 H (70-110) mg/dL Calcium 7.8 L (8.4-10.2) mg/dL
[2023-08-17 11:16] LABS: Glucose,Whole Blood 296 mg/dL (70-110)
--- NOTE | 2023-08-17 13:22 | P.PN ---
Subjective Progress Note Date: 08/17/23 * 63 year old male with medical history of COPD, Diabetes Mellitus type 2, Former smoker and former alcohol abuse, recent diagnosis of liver cirrhosis requiring paracentesis, pancytopenia, anemia of chronic disease, heart failure, COPD, bernice disease. Patient was recently admitted to the hospital for heart failure, liver cirrhosis patient underwent paracentesis and was diuresed. He was send to rehab. Patient states he has been discharged from rehab to home and has been there 3 to 4 days. He comes back in for shortness of breath and right sided rib pain states it is difficult to take a deep breath. He was discharged his previous admission on torsemide BID and recommended to continue on 1500 cc fluid restriction and low sodium diet. Patient reports fatigue generalized weakness. He denies nausea vomiting or diarrhea, denies fever or chills. Denies dizziness or lightheadedness. He denies chest pain. He had troponin elevation of 2.020 on admission which was trended at 1.860 and 1.900. ProBNP showing 4830, BUN 42, creatinine 1.52, sodium 134, hemoglobin of 8.1, platelet count of 88. Patient admitted to the hospital with cardiology consultation for the troponin elevation. Patient has been placed on IV heparin with recommendation to undergo cardiac catheterization. Chest xray done showing no acute cardiopulmonary process; incidental finding of bowel interposed between the right diaphragm and liver, chilaiditi sign. * 08/14/2023 Patient evaluated today underwent cardiac catheterization this morning revealing 100% mid RCA occulsion and 30% mid LAD occlusion with plans to initiate dual antiplatelet therapy and monitor patient with plans to return for outpatient intervention. Patient has no chest pain, no shortness of breath. Additionally he had abdominal ultrasound done with moderate to large ascities underwent paracentesis with 6.6 L of fluid removed. He continues with the nonblanchable petechial rash which was discussed with general surgery and will either have skin biopsy done inpatient or follow up with dermatology outpatient. * 08/15/2023 Patient is status post cardiac catheterization has been started on dual antiplatelet medication with aspirin and plavix with plans to come back outpatient for intervention. S/P paracentesis. Pending skin biopsy and PT/OT evaluation. Echocardiogram reveals an EF of 45-50%. * 08/16/2023: Patient seen and evaluated at bedside, patient noted to have episode of hypotension, patient given 1 dose of Lasix along with albumin supplementation, chest x-ray obtained showed chronic changes scattered parenchymal changes elevated right diaphragm. Patient shortness of breath improved after Lasix he had episode of wheezing as well. We'll follow-up on CBC, hemoglobin stable at 7.4. Transfuse if continues to have symptomatic shortness of breath, N-terminal proBNP 3670 * 08/17/2023 : Patient seen and evaluated bedside, patient accompanied by brother at bedside as well patient is alert, breathing has improved hemoglobin noted to be 7 patient to be given 1 unit of packed RBC, blood pressure systolic around 90s, patient asymptomatic patient to be transferred to [facility] with telemetry PHYSICAL EXAMINATION: GENERAL: The patient is alert and oriented x3, ill appearance, pale appearance, nasal cannula in place HEENT: Pupils are round and equally reacting to light. EOMI. CARDIOVASCULAR: S1 and S2 present. No murmurs, rubs, or gallops. PULMONARY: Decreased breath sounds bilaterally ABDOMEN: Soft, nontender, distended, ascites present MUSCULOSKELETAL: No joint swelling or deformity. EXTREMITIES: Bilateral leg edema NEUROLOGICAL: Gross neurological examination did not reveal any focal deficits. SKIN: Patient has petichial appearing streaked rash on bilateral lower extremiti es Objective - Vital Signs Vital signs: Vital Signs Temp 97.7 F 08/17/23 08:00 Pulse 94 08/17/23 12:00 Resp 16 08/17/23 12:00 BP 95/70 08/17/23 12:00 Pulse Ox 96 08/17/23 12:00 FiO2 Intake & Output 08/16/23 08/17/23 08/17/23 18:59 06:59 18:59 Intake Total 486 177 Output Total 900 500 250 Balance -414 -500 -73 Intake: IV 10 Invasive Line 2 10 Oral 476 177 Output: Urine 900 500 250 Other: Voiding Method External Catheter External Catheter External Catheter - Labs CBC & Chem 7: 08/17/23 07:44 08/17/23 07:44 Labs: Abnormal Lab Results - Last 24 Hours (Table) 08/16/23 08/16/23 08/17/23 Range/Units 16:31 20:09 05:49 RBC (4.30-5.90) m/uL Hgb (13.0-17.5) gm/dL Hct (39.0-53.0) % MCV (80.0-100.0) fL MCH (25.0-35.0) pg RDW (11.5-15.5) % Plt Count (150-450) k/uL Macrocytosis Sodium (137-145) mmol/L BUN (9-20) mg/dL Creatinine (0.66-1.25) mg/dL Glucose (74-99) mg/dL POC Glucose (mg/dL) 355 H 470 H 160 H (70-110) mg/dL Calcium (8.4-10.2) mg/dL 08/17/23 08/17/23 08/17/23 Range/Units 07:44 07:44 11:14 RBC 1.85 L (4.30-5.90) m/uL Hgb 7.0 L (13.0-17.5) gm/dL Hct 22.1 L (39.0-53.0) % MCV 119.4 H (80.0-100.0) fL MCH 37.6 H (25.0-35.0) pg RDW 19.8 H (11.5-15.5) % Plt Count 64 L (150-450) k/uL Macrocytosis Marked A Sodium 134 L (137-145) mmol/L BUN 35 H (9-20) mg/dL Creatinine 1.36 H (0.66-1.25) mg/dL Glucose 182 H (74-99) mg/dL POC Glucose (mg/dL) 296 H (70-110) mg/dL Calcium 7.8 L (8.4-10.2) mg/dL Assessment and Plan Assessment: Assessment * Troponin elevation secondary to nstemi cardiac catheterization reveals 100% occulsion mid RCA and 30% mid LAD * Liver cirrhosis, recent diagnosis requiring multiple paracentesis s/p paracentesis with 6.6. L of fluid removed 08/14/23 * non blanching petichieal rash bilateral lower extremities to rule out vasculit is * Chronic kidney disease * Pancytopenia with hematology work up previous admission * Hx of COPD * Anemia of chronic disease * Heart failure Hx diastolic * Chronic tobacco use * Hx of alcohol abuse * General surgery consultation recommending conservative management of the bowel positioning and discussed skin biopsy of the rash lower extremities to rule out vasculitis. Alternatively patient will be referred to follow up with dermatology outpatient for biopsy and diagonosis. We will follow-up on AMA, rheumatology workup * In regards to elevated troponin and coronary artery disease continue medical management on aspirin, not on statin secondary to liver cirrhosis, on metoprolol with parameter * In regards to congestive heart failure diastolic dysfunction patient given 1 dose of Lasix, continue patient on oral Bumex, cardiology following * In regards to hypotension, likely secondary to underlying cirrhosis, autonomic etiology, third spacing continue Midodrine * In regards to anemia of chronic disease, hemoglobin around 7 patient given 1 unit of packed RBC 08/17 * Patient will need to be discharged to subacute rehab Time with Patient: Greater than 30
[2023-08-17 17:26] LABS: Glucose,Whole Blood 204 mg/dL (70-110)
[2023-08-17 20:57] LABS: Glucose,Whole Blood 243 mg/dL (70-110)
[2023-08-17] MEDS: INSULIN DETEMIR (LEVEMIR) 100 UNIT/ML SYR SQ SCH (22:14)
[2023-08-17] MEDS: HYDROCORTISONE 10 MG TAB PO SCH (22:14)
[2023-08-17] MEDS: ALPRAZolam 0.5 MG TAB PO PRN (22:15)
[2023-08-17] MEDS: TAMSULOSIN 0.4 MG CAP.ER.24H PO SCH (22:15)
[2023-08-18] MEDS: ALBUTEROL HFA INHALER INHALATION PRN ×4 (07:20→18:08)
[2023-08-18] MEDS: SYMBICORT 160-4.5 MCG INHALER INHALATION SCH ×2 (07:20→18:08)
[2023-08-18 07:33] LABS: Glucose,Whole Blood 186 mg/dL (70-110)
[2023-08-18] MEDS: BUMETANIDE 1 MG TAB PO SCH (08:23)
[2023-08-18] MEDS: DAPAGLIFLOZIN PROPANEDIOL 5 MG TABLET PO SCH (08:23)
[2023-08-18] MEDS: INSULIN ASPART (NovoLOG) 100 UNIT/ML VIAL SQ SCH ×4 (08:24→22:00)
[2023-08-18] MEDS: METOPROLOL TARTRATE 12.5 MG TAB PO SCH ×2 (08:24→20:59)
[2023-08-18] MEDS: CHOLECALCIFEROL 25 MCG (1000 IU) TABLET PO SCH (08:24)
[2023-08-18] MEDS: MIDODRINE 5 MG TAB PO SCH ×3 (08:24→17:57)
[2023-08-18] MEDS: FAMOTIDINE 20 MG TAB PO SCH (08:24)
[2023-08-18] MEDS: FOLIC ACID 1 MG TAB PO SCH (08:24)
[2023-08-18] MEDS: THIAMINE 100 MG TAB PO SCH (08:24)
[2023-08-18] MEDS: ASPIRIN 81 MG PO SCH (08:24)
[2023-08-18] MEDS: HYDROCORTISONE 20 MG TAB PO SCH (08:26)
[2023-08-18] MEDS: HYDROcodone/APAP 7.5-325MG 1 EACH TAB PO PRN ×2 (08:56→20:59)
[2023-08-18 11:11] LABS: HCT 26.3 % (39.6-50.0); HGB 8.1 g/dL (13.0-17.0); Immature Platelet Fraction 3.6 % (1.1-6.1); MCH 34.8 pg (27.0-32.0); MCHC 30.8 g/dL (32.0-37.0); MCV 112.9 FL (80.0-97.0); Mean Platelet Volume 10.1 FL (9.5-12.2); NRBC Per 100 WBC 0 X 10*3/uL (0.00-0.01); Platelet Count 68 X 10*3/uL (140-440); RBC 2.33 X 10*6/uL (4.40-5.60); WBC 3.28 X 10*3/uL (4.50-10.00)
[2023-08-18 11:12] LABS: BUN/Creat Ratio 23.29 Ratio (12.00-20.00); Blood Urea Nitrogen 32.6 mg/dL (9.0-27.0); Calcium 8.2 mg/dL (8.7-10.3); Carbon Dioxide 26.7 mmol/L (21.6-31.8); Chloride 103 mmol/L (96-109); Glucose 168 mg/dL (70-110); Potassium 4.9 mmol/L (3.5-5.5); Sodium 137 mmol/L (135-145)
[2023-08-18 12:29] LABS: Glucose,Whole Blood 192 mg/dL (70-110)
--- NOTE | 2023-08-18 12:46 | P.PN ---
Subjective Progress Note Date: 08/18/23 * 63 year old male with medical history of COPD, Diabetes Mellitus type 2, Former smoker and former alcohol abuse, recent diagnosis of liver cirrhosis requiring paracentesis, pancytopenia, anemia of chronic disease, heart failure, COPD, bernice disease. Patient was recently admitted to the hospital for heart failure, liver cirrhosis patient underwent paracentesis and was diuresed. He was send to rehab. Patient states he has been discharged from rehab to home and has been there 3 to 4 days. He comes back in for shortness of breath and right sided rib pain states it is difficult to take a deep breath. He was discharged his previous admission on torsemide BID and recommended to continue on 1500 cc fluid restriction and low sodium diet. Patient reports fatigue generalized weakness. He denies nausea vomiting or diarrhea, denies fever or chills. Denies dizziness or lightheadedness. He denies chest pain. He had troponin elevation of 2.020 on admission which was trended at 1.860 and 1.900. ProBNP showing 4830, BUN 42, creatinine 1.52, sodium 134, hemoglobin of 8.1, platelet count of 88. Patient admitted to the hospital with cardiology consultation for the troponin elevation. Patient has been placed on IV heparin with recommendation to undergo cardiac catheterization. Chest xray done showing no acute cardiopulmonary process; incidental finding of bowel interposed between the right diaphragm and liver, chilaiditi sign. * 08/14/2023 Patient evaluated today underwent cardiac catheterization this morning revealing 100% mid RCA occulsion and 30% mid LAD occlusion with plans to initiate dual antiplatelet therapy and monitor patient with plans to return for outpatient intervention. Patient has no chest pain, no shortness of breath. Additionally he had abdominal ultrasound done with moderate to large ascities underwent paracentesis with 6.6 L of fluid removed. He continues with the nonblanchable petechial rash which was discussed with general surgery and will either have skin biopsy done inpatient or follow up with dermatology outpatient. * 08/15/2023 Patient is status post cardiac catheterization has been started on dual antiplatelet medication with aspirin and plavix with plans to come back outpatient for intervention. S/P paracentesis. Pending skin biopsy and PT/OT evaluation. Echocardiogram reveals an EF of 45-50%. * 08/16/2023: Patient seen and evaluated at bedside, patient noted to have episode of hypotension, patient given 1 dose of Lasix along with albumin supplementation, chest x-ray obtained showed chronic changes scattered parenchymal changes elevated right diaphragm. Patient shortness of breath improved after Lasix he had episode of wheezing as well. We'll follow-up on CBC, hemoglobin stable at 7.4. Transfuse if continues to have symptomatic shortness of breath, N-terminal proBNP 3670 * 08/17/2023 : Patient seen and evaluated bedside, patient accompanied by brother at bedside as well patient is alert, breathing has improved hemoglobin noted to be 7 patient to be given 1 unit of packed RBC, blood pressure systolic around 90s, patient asymptomatic patient to be transferred to [facility] with telemetry * 08/18/2023: Patient seen and evaluated bedside,, hemoglobin is 8.1, patient given 1 unit of packed RBC and 08/17. Will need discharge to subacute rehab, care plan discussed with patient and he is in agreement PHYSICAL EXAMINATION: GENERAL: The patient is alert and oriented x3, ill appearance, pale appearance, nasal cannula in place HEENT: Pupils are round and equally reacting to light. EOMI. CARDIOVASCULAR: S1 and S2 present. No murmurs, rubs, or gallops. PULMONARY: Decreased breath sounds bilaterally ABDOMEN: Soft, nontender, distended, ascites present MUSCULOSKELETAL: No joint swelling or deformity. EXTREMITIES: Bilateral leg edema NEUROLOGICAL: Gross neurological examination did not reveal any focal deficits. SKIN: Patient has petichial appearing streaked rash on bilateral lower extremities Objective - Vital Signs Vital signs: Vital Signs Temp 97.3 F L 08/18/23 07:40 Pulse 61 08/18/23 07:40 Resp 18 08/18/23 07:40 BP 145/84 08/18/23 07:40 Pulse Ox 93 L 08/18/23 07:40 FiO2 Intake & Output 08/17/23 08/18/23 08/18/23 18:59 06:59 18:59 Intake Total 894 310 488 Output Total 250 Balance 644 310 488 Weight 87 kg Intake: Oral 894 488 Blood Product 0 310 Rc As-1 Unit 0 310 [id number] Output: Urine 250 Other: Voiding Method Diaper Diaper Diaper External Catheter External Catheter # Bowel Movements 1 - Labs CBC & Chem 7: 08/18/23 05:47 08/18/23 05:47 Labs: Abnormal Lab Results - Last 24 Hours (Table) 08/17/23 08/17/23 08/17/23 Range/Units 13:29 17:25 20:55 WBC (4.50-10.00) X 10*3/uL RBC (4.40-5.60) X 10*6/uL Hgb (13.0-17.0) g/dL Hct (39.6-50.0) % MCV (80.0-97.0) FL MCH (27.0-32.0) pg MCHC (32.0-37.0) g/dL Plt Count (140-440) X 10*3/uL BUN (9.0-27.0) mg/dL Est GFR (CKD-EPI) (>=60) BUN/Creatinine Ratio (12.00-20.00) Ratio Glucose (70-110) mg/dL POC Glucose (mg/dL) 204 H 243 H (70-110) mg/dL Calcium (8.7-10.3) mg/dL Crossmatch See Detail 08/18/23 08/18/23 08/18/23 Range/Units 05:47 05:47 07:32 WBC 3.28 L (4.50-10.00) X 10*3/uL RBC 2.33 L (4.40-5.60) X 10*6/uL Hgb 8.1 L (13.0-17.0) g/dL Hct 26.3 L (39.6-50.0) % MCV 112.9 H (80.0-97.0) FL MCH 34.8 H (27.0-32.0) pg MCHC 30.8 L (32.0-37.0) g/dL Plt Count 68 L (140-440) X 10*3/uL BUN 32.6 H (9.0-27.0) mg/dL Est GFR (CKD-EPI) 57 L (>=60) BUN/Creatinine Ratio 23.29 H (12.00-20.00) Ratio Glucose 168 H (70-110) mg/dL POC Glucose (mg/dL) 186 H (70-110) mg/dL Calcium 8.2 L (8.7-10.3) mg/dL Crossmatch 08/18/23 Range/Units 12:28 WBC (4.50-10.00) X 10*3/uL RBC (4.40-5.60) X 10*6/uL Hgb (13.0-17.0) g/dL Hct (39.6-50.0) % MCV (80.0-97.0) FL MCH (27.0-32.0) pg MCHC (32.0-37.0) g/dL Plt Count (140-440) X 10*3/uL BUN (9.0-27.0) mg/dL Est GFR (CKD-EPI) (>=60) BUN/Creatinine Ratio (12.00-20.00) Ratio Glucose (70-110) mg/dL POC Glucose (mg/dL) 192 H (70-110) mg/dL Calcium (8.7-10.3) mg/dL Crossmatch Assessment and Plan Assessment: Assessment * Troponin elevation secondary to nstemi cardiac catheterization reveals 100% occulsion mid RCA and 30% mid LAD * Liver cirrhosis, recent diagnosis requiring multiple paracentesis s/p paracentesis with 6.6. L of fluid removed 08/14/23 * non blanching petichieal rash bilateral lower extremities to rule out vascu litis * Chronic kidney disease * Pancytopenia with hematology work up previous admission * Hx of COPD * Anemia of chronic disease * Heart failure Hx diastolic * Chronic tobacco use * Hx of alcohol abuse * General surgery consultation recommending conservative management of the bowel positioning and discussed skin biopsy of the rash lower extremities to rule out vasculitis. Alternatively patient will be referred to follow up with dermatology outpatient for biopsy and diagonosis. We will follow-up on DIONNE, rheumatology workup * In regards to elevated troponin and coronary artery disease continue medical management on aspirin, not on statin secondary to liver cirrhosis, on metoprolol with parameter * In regards to congestive heart failure diastolic dysfunction patient given 1 dose of Lasix, continue patient on oral Bumex, cardiology following * In regards to hypotension, likely secondary to underlying cirrhosis, autonomic etiology, third spacing continue Midodrine * In regards to anemia of chronic disease, hemoglobin around 7 patient given 1 unit of packed RBC 08/17, hemoglobin improved posttransfusion * Patient will need to be discharged to subacute rehab
--- NOTE | 2023-08-18 13:45 | P.PN ---
Subjective Progress Note Date: 08/18/23 Principal diagnosis: Abnormal troponin The patient is a 63-year-old gentleman with history of alcohol abuse and liver cirrhosis as well as diabetes and also chronic kidney disease was admitted to the hospital from extended care facility with generalized weakness and fatigue and shortness of breath. The troponin came in to be elevated and concerning for severe underlying coronary artery disease. Also he underwent further workup including ultrasound of the abdomen and that showed and ascites. August 142022 The patient was seen and evaluated this morning. He is hemodynamically stable beside marginally low blood pressure. No pain in the chest. He still have shortness of breath. No dizziness or lightheadedness and no heart racing or fluttering. He is maintaining normal sinus mechanism. The examination is remarkable for distended abdomen. The ultrasound of the abdomen revealed fluid in 4 quadrants. He is in process of having paracentesis. Also he is in process of having coronary angiogram. 08/15/2023 The patient was seen and evaluated this morning. He is feeling better. He underwent paracentesis yesterday. Pressure still marginal but he is tachy cardic. I'm going to start him on a small dose of beta izaiah and see if the pressure with a total period that. The echo showed mild cardiomyopathy with an ejection fraction between 40-45%. He underwent heart catheterization yesterday and was found to have occluded right coronary artery which would be treated medically. He is on aspirin. He got the on a statin in the light of liver cirrhosis 08/16/2023 The patient was seen and evaluated this morning he is short of breath and he is wheezing. He is not quite hypoxic go. I am concerned about severe anemia giving his baseline hemoglobin which is low. I'm going to order a chest x-ray and BNP proBNP and hemoglobin. He is in process of receiving Lasix IV once. He is making urine. The examination is remarkable for bilateral expiratory wheezing and bilateral lower extremity edema 08/17/2023 The patient was seen and evaluated this morning. He is a stable. The shortness of breath has improved. The hemoglobin is 7.0. He seems to be euvolemic on examination. The exam is remarkable for mild bilateral lower extremity is edema only. From the cardiac vascular standpoint of view, the patient potentially can be discharged in the next 12-24 hours. 08/18/2023 The patient was seen and evaluated this morning. He is feeling better. Apparently he received one unit of packed RBC which I would agree on. His hemoglobin yesterday was 7.0 and today is above 8. He is feeling better. The shortness of breath has improved. No pain in the chest. He is euvolemic. The examination is remarkable for regular rhythm with a soft systolic murmur and clear breathing sounds bilaterally and mild bilateral lower extremity edema Assessment Coronary artery disease with occluded right coronary artery subacute versus chronic Evidence of myocardial injury Liver cirrhosis/ascites Chronic kidney disease Chronic anemia Status post paracentesis Plan Continue the current medical regimen We will follow-up with the patient on when necessary Objective - Vital Signs Vital signs: Vital Signs Temp 98 F 08/18/23 12:25 Pulse 79 08/18/23 12:25 Resp 18 08/18/23 12:25 BP 93/47 08/18/23 12:25 Pulse Ox 93 L 08/18/23 12:25 FiO2 Intake & Output 08/17/23 08/18/23 08/18/23 18:59 06:59 18:59 Intake Total 894 310 488 Output Total 250 650 Balance 644 310 -162 Weight 87 kg Intake: Oral 894 488 Blood Product 0 310 Rc As-1 Unit 0 310 [id number] Output: Urine 250 650 Other: Voiding Method Diaper Diaper Diaper External Catheter External Catheter # Bowel Movements 1 - Labs CBC & Chem 7: 08/18/23 05:47 08/18/23 05:47 Labs: Abnormal Lab Results - Last 24 Hours (Table) 08/17/23 08/17/23 08/17/23 Range/Units 13:29 17:25 20:55 WBC (4.50-10.00) X 10*3/uL RBC (4.40-5.60) X 10*6/uL Hgb (13.0-17.0) g/dL Hct (39.6-50.0) % MCV (80.0-97.0) FL MCH (27.0-32.0) pg MCHC (32.0-37.0) g/dL Plt Count (140-440) X 10*3/uL BUN (9.0-27.0) mg/dL Est GFR (CKD-EPI) (>=60) BUN/Creatinine Ratio (12.00-20.00) Ratio Glucose (70-110) mg/dL POC Glucose (mg/dL) 204 H 243 H (70-110) mg/dL Calcium (8.7-10.3) mg/dL Crossmatch See Detail 08/18/23 08/18/23 08/18/23 Range/Units 05:47 05:47 07:32 WBC 3.28 L (4.50-10.00) X 10*3/uL RBC 2.33 L (4.40-5.60) X 10*6/uL Hgb 8.1 L (13.0-17.0) g/dL Hct 26.3 L (39.6-50.0) % MCV 112.9 H (80.0-97.0) FL MCH 34.8 H (27.0-32.0) pg MCHC 30.8 L (32.0-37.0) g/dL Plt Count 68 L (140-440) X 10*3/uL BUN 32.6 H (9.0-27.0) mg/dL Est GFR (CKD-EPI) 57 L (>=60) BUN/Creatinine Ratio 23.29 H (12.00-20.00) Ratio Glucose 168 H (70-110) mg/dL POC Glucose (mg/dL) 186 H (70-110) mg/dL Calcium 8.2 L (8.7-10.3) mg/dL Crossmatch 08/18/23 Range/Units 12:28 WBC (4.50-10.00) X 10*3/uL RBC (4.40-5.60) X 10*6/uL Hgb (13.0-17.0) g/dL Hct (39.6-50.0) % MCV (80.0-97.0) FL MCH (27.0-32.0) pg MCHC (32.0-37.0) g/dL Plt Count (140-440) X 10*3/uL BUN (9.0-27.0) mg/dL Est GFR (CKD-EPI) (>=60) BUN/Creatinine Ratio (12.00-20.00) Ratio Glucose (70-110) mg/dL POC Glucose (mg/dL) 192 H (70-110) mg/dL Calcium (8.7-10.3) mg/dL Crossmatch
[2023-08-18 17:11] LABS: Glucose,Whole Blood 251 mg/dL (70-110)
[2023-08-18] MEDS: HYDROCORTISONE 10 MG TAB PO SCH (20:59)
[2023-08-18] MEDS: ALPRAZolam 0.5 MG TAB PO PRN (20:59)
[2023-08-18] MEDS: TAMSULOSIN 0.4 MG CAP.ER.24H PO SCH (20:59)
[2023-08-18 21:27] LABS: Glucose,Whole Blood 232 mg/dL (70-110)
[2023-08-19] MEDS: INSULIN DETEMIR (LEVEMIR) 100 UNIT/ML SYR SQ SCH (00:07)
[2023-08-19] MEDS: ALPRAZolam 0.5 MG TAB PO PRN (05:40)
[2023-08-19] MEDS: HYDROcodone/APAP 7.5-325MG 1 EACH TAB PO PRN ×2 (05:40→17:28)
[2023-08-19 07:41] LABS: Glucose,Whole Blood 230 mg/dL (70-110)
[2023-08-19] MEDS: ALBUTEROL HFA INHALER INHALATION PRN ×3 (07:49→18:23)
[2023-08-19] MEDS: SYMBICORT 160-4.5 MCG INHALER INHALATION SCH ×2 (07:49→18:23)
[2023-08-19] MEDS: INSULIN ASPART (NovoLOG) 100 UNIT/ML VIAL SQ SCH ×4 (08:51→21:57)
[2023-08-19] MEDS: CHOLECALCIFEROL 25 MCG (1000 IU) TABLET PO SCH (08:51)
[2023-08-19] MEDS: ASPIRIN 81 MG PO SCH (08:51)
[2023-08-19] MEDS: METOPROLOL TARTRATE 12.5 MG TAB PO SCH ×2 (08:51→21:57)
[2023-08-19] MEDS: THIAMINE 100 MG TAB PO SCH (08:51)
[2023-08-19] MEDS: FOLIC ACID 1 MG TAB PO SCH (08:51)
[2023-08-19] MEDS: FAMOTIDINE 20 MG TAB PO SCH (08:51)
[2023-08-19] MEDS: MIDODRINE 5 MG TAB PO SCH ×3 (08:52→21:55)
[2023-08-19] MEDS: BUMETANIDE 1 MG TAB PO SCH (08:52)
[2023-08-19] MEDS: HYDROCORTISONE 20 MG TAB PO SCH (08:53)
[2023-08-19] MEDS: DAPAGLIFLOZIN PROPANEDIOL 5 MG TABLET PO SCH (08:53)
[2023-08-19 12:15] LABS: Glucose,Whole Blood 276 mg/dL (70-110)
[2023-08-19 13:45] LABS: Anisocytosis Moderate; Basophils % (A) 0 %; Eosinophils % (A) 1 %; HCT 25.6 % (39.0-53.0); HGB 8.1 gm/dL (13.0-17.5); Hypochromasia Marked; Lymphocytes % (A) 31 %; MCHC 31.8 g/dL (31.0-37.0); Macrocytosis Marked; Mean Platelet Volume 9.9; Monocytes # (A) 0.2 k/uL (0-1.0); Monocytes % (A) 5 %; Neutrophils # (A) 1.8 k/uL (1.3-7.7); Neutrophils % (A) 60 %; RBC 2.26 m/uL (4.30-5.90); RDW 21.9 % (11.5-15.5); WBC 3.1 k/uL (3.8-10.6)
--- NOTE | 2023-08-19 13:59 | XR ---
EXAMINATION TYPE: XR knee limited bilateral DATE OF EXAM: 08/19/2023 COMPARISON: NONE HISTORY: Pain TECHNIQUE: Two views are submitted. FINDINGS: Right knee: There is mild narrowing of patellofemoral joint spurring. Diffuse osteopenia. There is an exostosis o f the proximal fibula. Cortical thickening correlate for chronic or remote trauma. No erosive changes . Surgical azar are seen. Vascular calcifications.. Osseous structures are intact. No acute frac ture seen. Sclerosis distal right femur appears chronic and could also be evaluated with bone scan. Left knee: Mild narrowing of the medial compartment knee joint with marginal spurring. Diffuse osteopenia. Mild patellofemoral joint narrowing with spurring. There is a trace amount of fluid in the suprapatellar b ursa IMPRESSION: 1. No acute fracture or dislocation. 2. Osteopenia with findings compatible with osteoarthritis. 3. Small exostosis proximal right fibula correlation with bone scan.
[2023-08-19 14:02] LABS: ALT 25 U/L (4-49); AST 28 U/L (17-59); African American GFR (CKD) 63 (>60 ml/min/1.73 sqM); Albumin 2.7 g/dL (3.5-5.0); Alkaline Phosphatase 142 U/L (38-126); Anion Gap 9 mmol/L; Blood Urea Nitrogen 35 mg/dL (9-20); Calcium 7.8 mg/dL (8.4-10.2); Carbon Dioxide 26 mmol/L (22-30); Chloride 99 mmol/L (98-107); Globulin 2.8 g/dL; Glucose 180 mg/dL (74-99); Non-African American GFR(CKD) 54 (>60 ml/min/1.73 sqM); Potassium 4.2 mmol/L (3.5-5.1); Sodium 134 mmol/L (137-145); Total Bilirubin 0.6 mg/dL (0.2-1.3); Total Protein 5.5 g/dL (6.3-8.2)
[2023-08-19 14:03] LABS: MCV 113.2 fL (80.0-100.0); Platelet Count 68 k/uL (150-450)
--- NOTE | 2023-08-19 14:41 | US ---
EXAMINATION TYPE: US abdomen limited DATE OF EXAM: 08/19/2023 COMPARISON: US, CT CLINICAL INDICATION: Male, 63 years old with history of ascites, abdominal distention; Ascites, diste ntion Technique: Scanned all four quadrants of the abdomen. Findings: Fluid seen within all four quadrants, there appears to be a larger pocket on the right side. IMPRESSION: Small to moderate ascites throughout the abdomen.
[2023-08-19 16:29] VITALS: BMI 24.6
[2023-08-19 17:17] LABS: Glucose,Whole Blood 312 mg/dL (70-110)
[2023-08-19 20:27] LABS: Glucose,Whole Blood 224 mg/dL (70-110)
[2023-08-19] MEDS: TAMSULOSIN 0.4 MG CAP.ER.24H PO SCH (21:55)
[2023-08-19] MEDS: HYDROCORTISONE 10 MG TAB PO SCH (21:55)
[2023-08-20] MEDS: HYDROcodone/APAP 7.5-325MG 1 EACH TAB PO PRN ×3 (00:53→18:31)
--- NOTE | 2023-08-20 01:49 | PN ---
PROGRESS NOTE DATE OF SERVICE: 08/19/2023 SUBJECTIVE: This is a 63-year-old gentleman who was admitted with troponin elevation, had cardiac catheterization. The patient is awaiting ECF rehab. No chest pain, no palpitation. OBJECTIVE: VITAL SIGNS: Pulse is 80, blood pressure 91/50, and respirations 18. CHEST: Clear to auscultation. CARDIOVASCULAR: S1, S2. ABDOMEN: Soft. NERVOUS SYSTEM: Nonfocal. LABORATORY DATA: Reviewed. ASSESSMENT: 1. Acute imo-DI-ofqyxqy elevation AL, status post cardiac catheterization and 100% occlusion of mid RCA, 30% mid LAD, on medical treatment. 2. Liver cirrhosis with multiple paracenteses. 3. Non-blanching petechial rash, bilateral lower legs. 4. Chronic kidney disease, stage III. 5. Pancytopenia. 6. Chronic obstructive pulmonary disease. 7. Multiple complex medical issues. RECOMMENDATIONS AND DISCUSSION: This 63-year-old gentleman presented with multiple complex medical issues, we will monitor the patient closely. Continue the current management, continue symptomatic treatment, repeat labs. Otherwise closely monitor. Guarded prognosis. Further recommendations to follow. MMODL / IJN: [id number] /
[2023-08-20 02:17] LABS: Glucose,Whole Blood 249 mg/dL (70-110)
[2023-08-20] MEDS: INSULIN DETEMIR (LEVEMIR) 100 UNIT/ML SYR SQ SCH ×2 (02:23→23:20)
[2023-08-20 07:59] LABS: Glucose,Whole Blood 234 mg/dL (70-110)
[2023-08-20] MEDS: MIDODRINE 5 MG TAB PO SCH ×3 (08:27→23:21)
[2023-08-20] MEDS: FAMOTIDINE 20 MG TAB PO SCH (08:27)
[2023-08-20] MEDS: ASPIRIN 81 MG PO SCH (08:27)
[2023-08-20] MEDS: CHOLECALCIFEROL 25 MCG (1000 IU) TABLET PO SCH (08:27)
[2023-08-20] MEDS: THIAMINE 100 MG TAB PO SCH (08:27)
[2023-08-20] MEDS: METOPROLOL TARTRATE 12.5 MG TAB PO SCH ×2 (08:27→23:17)
[2023-08-20] MEDS: INSULIN ASPART (NovoLOG) 100 UNIT/ML VIAL SQ SCH ×4 (08:27→23:18)
[2023-08-20] MEDS: FOLIC ACID 1 MG TAB PO SCH (08:27)
[2023-08-20] MEDS: HYDROCORTISONE 20 MG TAB PO SCH (08:28)
[2023-08-20] MEDS: BUMETANIDE 1 MG TAB PO SCH (08:28)
[2023-08-20] MEDS: DAPAGLIFLOZIN PROPANEDIOL 5 MG TABLET PO SCH (08:28)
[2023-08-20] MEDS: SYMBICORT 160-4.5 MCG INHALER INHALATION SCH ×2 (08:31→18:30)
[2023-08-20] MEDS: ALBUTEROL HFA INHALER INHALATION PRN ×4 (08:31→18:29)
[2023-08-20 08:47] LABS: BUN/Creat Ratio 26.08 Ratio (12.00-20.00); Blood Urea Nitrogen 33.9 mg/dL (9.0-27.0); Calcium 8.3 mg/dL (8.7-10.3); Carbon Dioxide 24.8 mmol/L (21.6-31.8); Chloride 104 mmol/L (96-109); Glucose 204 mg/dL (70-110); Potassium 4.5 mmol/L (3.5-5.5); Sodium 139 mmol/L (135-145)
[2023-08-20 09:26] LABS: Basophils # (A) 0.01 X 10*3/uL (0.00-0.10); Basophils % (A) 0.3 %; Eosinophils # (A) 0.02 X 10*3/uL (0.04-0.35); Eosinophils % (A) 0.6 %; HCT 25.9 % (39.6-50.0); Hypochromasia (M) 2+; Immature Platelet Fraction 3.4 % (1.1-6.1); Lymphocytes % (A) 32.3 %; MCH 34.8 pg (27.0-32.0); MCHC 30.9 g/dL (32.0-37.0); MCV 112.6 FL (80.0-97.0); Macrocytosis (M) 2+; Mean Platelet Volume 9.7 FL (9.5-12.2); Monocytes # (A) 0.21 X 10*3/uL (0.20-1.00); Monocytes % (A) 6.8 %; NRBC Per 100 WBC 0 X 10*3/uL (0.00-0.01); Neutrophils # (A) 1.83 X 10*3/uL (1.80-7.70); Platelet Count 75 X 10*3/uL (140-440)
[2023-08-20 11:53] LABS: Glucose,Whole Blood 191 mg/dL (70-110)
--- NOTE | 2023-08-20 15:09 | US ---
Ultrasound-guided paracentesis. DATE OF EXAM: 08/20/2023 CLINICAL HISTORY: Ascites The procedure was discussed with the patient. The risks, complications, benefits, and alternatives we re discussed and any questions were answered. Informed consent was obtained. The patient was placed s upine on the ultrasound table and prepped and draped in the usual sterile fashion. All elements of maximal barrier technique were utilized. Under ultrasound guidance, access into the right lower quadrant was obtained, via the paracentesis catheter system and direct ultrasound guidanc e. Approximately 8.2 liters of straw-colored fluid was removed. The patient was stable throughout the pr ocedure and remained stable upon discharge from Department of Radiology. IMPRESSION: Successful paracentesis under ultrasound guidance.
--- NOTE | 2023-08-20 15:11 | PN ---
PROGRESS NOTE DATE OF SERVICE: 08/20/2023 SUBJECTIVE: This is a 63-year-old gentleman, who was admitted with acute axg-EZ-eebsajs-elevation myocardial infarction, had a cardiac catheterization. The patient also had liver cirrhosis and ascites also. Abdominal ultrasound done yesterday showed small-to- moderate ascites, but abdomen is really tense, which might need another paracentesis before discharge. PAST MEDICAL HISTORY: Reviewed. REVIEW OF SYSTEMS: Fourteen-point review is negative except as mentioned earlier. CURRENT MEDICATIONS: Reviewed. PHYSICAL EXAMINATION: VITAL SIGNS: Pulse 88, blood pressure 110/68, respirations 16. CHEST: Few scattered rhonchi. ABDOMEN: Tense ascites present. LEGS: No edema. No swelling. NERVOUS SYSTEM: Nonfocal. LABORATORY DATA: Reviewed. ASSESSMENT: 1. Acute pjn-DN-abqnoha-elevation myocardial infarction, status post cardiac catheterization and 100% occlusion of the right coronary artery and 30% mid left anterior descending. 2. Liver cirrhosis with multiple paracenteses. 3. Tense ascites. 4. Nonblanching petechial rash, both legs. 5. Chronic kidney disease, stage 3. 6. Pancytopenia. 7. Chronic obstructive pulmonary disease. 8. Multiple complex medical issues. 9. Full code. RECOMMENDATIONS: Recommend to continue current medications. Continue symptomatic treatment. Continue with antiplatelet agents. Possible paracentesis. Otherwise, continue to monitor. Monitor blood sugars closely. Further recommendations to follow. See orders for details. MMODL / IJN: [id number] /
[2023-08-20] MEDS: ALBUMIN HUMAN 25% 50 ML in EMPTY BAG 1 BAG IVPB SCH ×2 (16:16→18:00)
[2023-08-20 16:57] LABS: Glucose,Whole Blood 254 mg/dL (70-110)
[2023-08-20 20:49] LABS: Glucose,Whole Blood 288 mg/dL (70-110)
[2023-08-20] MEDS: ALPRAZolam 0.5 MG TAB PO PRN (23:18)
[2023-08-20] MEDS: HYDROCORTISONE 10 MG TAB PO SCH (23:18)
[2023-08-20] MEDS: TAMSULOSIN 0.4 MG CAP.ER.24H PO SCH (23:23)
[2023-08-21 07:33] LABS: Glucose,Whole Blood 237 mg/dL (70-110)
[2023-08-21] MEDS: MIDODRINE 5 MG TAB PO SCH ×2 (07:48→11:57)
[2023-08-21] MEDS: ALBUTEROL HFA INHALER INHALATION PRN (08:03)
[2023-08-21] MEDS: SYMBICORT 160-4.5 MCG INHALER INHALATION SCH (08:03)
[2023-08-21 08:05] VITALS: BP 87/52; RESP 16; TEMP 97.5
[2023-08-21] MEDS: INSULIN ASPART (NovoLOG) 100 UNIT/ML VIAL SQ SCH ×2 (08:17→12:07)
[2023-08-21] MEDS: THIAMINE 100 MG TAB PO SCH (08:18)
[2023-08-21] MEDS: BUMETANIDE 1 MG TAB PO SCH (08:18)
[2023-08-21] MEDS: FAMOTIDINE 20 MG TAB PO SCH (08:18)
[2023-08-21] MEDS: HYDROCORTISONE 20 MG TAB PO SCH (08:18)
[2023-08-21] MEDS: ASPIRIN 81 MG PO SCH (08:18)
[2023-08-21] MEDS: DAPAGLIFLOZIN PROPANEDIOL 5 MG TABLET PO SCH (08:18)
[2023-08-21] MEDS: CHOLECALCIFEROL 25 MCG (1000 IU) TABLET PO SCH (08:18)
[2023-08-21] MEDS: METOPROLOL TARTRATE 12.5 MG TAB PO SCH (08:18)
[2023-08-21] MEDS: FOLIC ACID 1 MG TAB PO SCH (08:18)
[2023-08-21 08:32] LABS: ALT 48 U/L (10-49); AST 42 U/L (14-35); Alkaline Phosphatase 143 U/L (41-126); BUN/Creat Ratio 24.54 Ratio (12.00-20.00); Blood Urea Nitrogen 31.9 mg/dL (9.0-27.0); Calcium 8.3 mg/dL (8.7-10.3); Carbon Dioxide 25.6 mmol/L (21.6-31.8); Chloride 106 mmol/L (96-109); Globulin 2.3 g/dL (1.6-3.3); Glucose 171 mg/dL (70-110); Potassium 4.4 mmol/L (3.5-5.5); Sodium 141 mmol/L (135-145); Total Bilirubin 0.5 mg/dL (0.3-1.2); Total Protein 5.3 g/dL (6.2-8.2)
[2023-08-21 09:13] LABS: Anisocytosis (M) 2+; Basophils # (A) 0.01 X 10*3/uL (0.00-0.10); Basophils % (A) 0.4 %; Eosinophils # (A) 0.02 X 10*3/uL (0.04-0.35); Eosinophils % (A) 0.7 %; HCT 27.1 % (39.6-50.0); HGB 8.3 g/dL (13.0-17.0); Hypochromasia (M) 2+; Lymphocytes # (A) 0.95 X 10*3/uL (0.90-5.00); Lymphocytes % (A) 33.8 %; MCH 35.2 pg (27.0-32.0); MCHC 30.6 g/dL (32.0-37.0); MCV 114.8 FL (80.0-97.0); Macrocytosis (M) 3+; Mean Platelet Volume 9.4 FL (9.5-12.2); Monocytes # (A) 0.22 X 10*3/uL (0.20-1.00); Monocytes % (A) 7.8 %; NRBC Per 100 WBC 0 X 10*3/uL (0.00-0.01); Neutrophils # (A) 1.59 X 10*3/uL (1.80-7.70); Neutrophils % (A) 56.6 %; Platelet Count 70 X 10*3/uL (140-440); RBC 2.36 X 10*6/uL (4.40-5.60); RDW 23.9 % (11.5-14.5); WBC 2.81 X 10*3/uL (4.50-10.00)
--- NOTE | 2023-08-21 10:36 | XR ---
EXAMINATION TYPE: XR chest 1V portable DATE OF EXAM: 08/21/2023 COMPARISON: 08/16/2023. HISTORY: Respiratory distress. TECHNIQUE: Single frontal view of the chest is obtained. FINDINGS: Unchanged elevation of the right diaphragm. Likely small right pleural effusion. The left lung is clear. There is some mild patchy parenchymal changes seen within the right lung which are unchanged. The cardiac silhouette and pulmonary vessels are within normal limits. IMPRESSION: No significant change.
--- NOTE | 2023-08-21 11:22 | P.DS ---
Providers Date of admission: 08/12/23 23:51 Expected date of discharge: 08/21/23 Attending physician: Nelly Tong Consults: 08/12/23 23:51 Consult Physician Routine Consulting Provider: Jamaal Magdaleno Consult Reason/Comments: elevTrop Do you want consulting provider notified?: Yes 08/13/23 12:33 Consult Physician Routine Consulting Provider: Brendan Mtz Consult Reason/Comments: bowel between liver and right diaphragm Do you want consulting provider notified?: Yes Primary care physician: Megan Langford DO Hospital Course: Final diagnosis Acute NSTEMI status post cardiac catheterization with 100% occlusion of the right coronary artery and 30% of the mid left anterior descending Liver cirrhosis with multiple paracentesis fine tense ascites Nonblanching petechial rash bilateral legs Chronic kidney disease, stage III Pancytopenia History of chronic obstructive pulmonary disease Diabetes mellitus, type II Former smoker GI prophylaxis DVT prophylaxis Full code Discharge disposition Patient is being discharged in a stable condition with guarded prognosis to [facility]. Patient will follow-up with Dr. Langford in the outpatient setting upon discharge. Patient is to continue with medications as prescribed and follow up with cardiology outpatient as scheduled. Would recommend further investigation on palliative paracentesis in the outpatient setting as patient required large-volume paracentesis 2 during this admission. Total time taken is greater than 35 minutes. Hospital course This is a 63-year-old male who was recently admitted with nstemi and underwent cardiac catheterization patient also known to have liver cirrhosis with ascites and required to abdominal paracentesis during this admission with over 8 L removed yesterday. Patient with significant edema would benefit from palliative paracentesis outpatient as opposed to coming to the ER for this. Patient has been cleared by cardiology recommend outpatient follow-up and continuing on current medication regimen. Please refer to cardiology notes for further HPI. Patient will be returning to [facility]. Currently no reports of chest pain, shortness of breath, or palpitations. Patient is afebrile. No reports of nausea or vomiting and patient is tolerating diet. Patient will be going to [facility] today. Guarded prognosis and high risk for readmissions given patient's significant comorbidities Physical exam: Gen: This is a 63-year-old male who is awake, alert and oriented 2-3, baseline, well-developed, well-nourished, pale, appears much older than stated age HEENT: Head is atraumatic, normocephalic. Pupils equal, round. Sclerae is anicteric. NECK: Supple. No JVD. No lymphadenopathy. No thyromegaly. LUNGS: Clear to auscultation. No wheezes or rhonchi. No intercostal retractions. HEART: S1, S2 are muffled ABDOMEN: Soft. Less distended although continues with abdominal distention with ascites. Bowel sounds are present. No masses. No tenderness. EXTREMITIES: No pedal edema. No calf tenderness. NEUROLOGICAL: Patient is awake, alert and oriented x3. Cranial nerves 2 through 12 are grossly intact. Diffusely weak Please refer to medication reconciliation sheet for a list of medications. The impression and plan of care has been dictated by Elizabeth Bailey, Nurse Practitioner as directed. Dr. Ran MD I have performed a history and examination and MDM of this patient, discussed the same with the dictator, and agree with the dictator's assessment and plan as written ,documented as a scribe. Based on total visit time, I have performed more than 50% of the visit. Patient Condition at Discharge: Fair Plan - Discharge Summary Discharge Rx Participant: No New Discharge Prescriptions: New ALPRAZolam [Xanax] 0.25 mg PO Q6HR PRN #2 tab PRN Reason: Mild Anxiety Ipratropium-Albuterol Nebulize [Duoneb 0.5 mg-3 mg/3 ml Soln] 3 ml INHALATION RT-TID each Aspirin 81 mg PO DAILY tab Nitroglycerin Sl Tabs [Nitrostat] 0.4 mg SUBLINGUAL Q5M PRN tab PRN Reason: Chest Pain Continue Cholecalciferol [Vitamin D3 (25 Mcg = 1000 Iu)] 25 mcg PO DAILY Hydrocortisone [Cortef] 10 mg PO HS tab Dapagliflozin Propanediol [Farxiga] 5 mg PO DAILY tab Potassium Chloride ER [K-Dur 20] 40 meq PO BID tab Albuterol Sulfate/Budesonide [Airsupra 90-80 Mcg Inhaler] 2 puff INHALATION RT-QID PRN PRN Reason: Shortness Of Breath Darbepoetin Jesu [Aranesp] 40 mcg SQ TH@0700 INSULIN ASPART (NovoLOG) [NovoLOG (formulary)] See Protocol SQ ACHS Phenazopyridine [Pyridium] 100 mg PO TID@0700,1300,1900 HYDROcodone/APAP 7.5-325MG [[place] 7.5-325] 1 tab PO Q6HR PRN #4 tab PRN Reason: pain Albuterol Inhaler [Ventolin Hfa Inhaler] 2 puff INHALATION RT-QID PRN PRN Reason: Shortness Of Breath Thiamine [Vitamin B-1] 100 mg PO DAILY #30 tab Hydrocortisone [Cortef] 20 mg PO DAILY tab Ipratropium-Albuterol Nebulize [Duoneb 0.5 mg-3 mg/3 ml Soln] 3 ml INHALATION RT-Q4H PRN each PRN Reason: Shortness Of Breath Or Wheezing Folic Acid 1 mg PO DAILY tab Famotidine [Pepcid] 20 mg PO DAILY tab Budesonide-Formot 160-4.5 Mcg [Symbicort 160-4.5 Mcg Inhaler] 2 puff INHALATION RT-BID each Calcium Carbonate [Tums] 1,000 mg PO TID PRN tab PRN Reason: Heartburn Metoprolol Tartrate [Lopressor] 12.5 mg PO BID Midodrine HCl [ProAmatine] 20 mg PO TID@0700,1300,1900 Bumetanide [BUMEX] 1 mg PO DAILY Insulin Glargine,Hum.rec.anlog [Lantus Solostar Pen] 10 units SQ HS Tamsulosin [Flomax] 0.4 mg PO HS Discontinued traMADol HCl [Ultram] 50 mg PO Q6H PRN #4 tab PRN Reason: Pain Discharge Medication List Albuterol Inhaler [Ventolin Hfa Inhaler] 2 puff INHALATION RT-QID PRN 02/03/23 [History] Cholecalciferol [Vitamin D3 (25 Mcg = 1000 Iu)] 25 mcg PO DAILY 02/03/23 [History] Thiamine [Vitamin B-1] 100 mg PO DAILY #30 tab 02/06/23 [Rx] Budesonide-Formot 160-4.5 Mcg [Symbicort 160-4.5 Mcg Inhaler] 2 puff INHALATION RT-BID each 07/24/23 [Rx] Calcium Carbonate [Tums] 1,000 mg PO TID PRN tab 07/24/23 [Rx] Dapagliflozin Propanediol [Farxiga] 5 mg PO DAILY tab 07/24/23 [Rx] Famotidine [Pepcid] 20 mg PO DAILY tab 07/24/23 [Rx] Folic Acid 1 mg PO DAILY tab 07/24/23 [Rx] Hydrocortisone [Cortef] 10 mg PO HS tab 07/24/23 [Rx] Hydrocortisone [Cortef] 20 mg PO DAILY tab 07/24/23 [Rx] Ipratropium-Albuterol Nebulize [Duoneb 0.5 mg-3 mg/3 ml Soln] 3 ml INHALATION RT-Q4H PRN each 07/24/23 [Rx] Potassium Chloride ER [K-Dur 20] 40 meq PO BID tab 07/24/23 [Rx] Albuterol Sulfate/Budesonide [Airsupra 90-80 Mcg Inhaler] 2 puff INHALATION RT- QID PRN 07/25/23 [History] Darbepoetin Jesu [Aranesp] 40 mcg SQ TH@0700 07/25/23 [History] INSULIN ASPART (NovoLOG) [NovoLOG (formulary)] See Protocol SQ ACHS 07/25/23 [History] Metoprolol Tartrate [Lopressor] 12.5 mg PO BID 07/25/23 [History] Midodrine HCl [ProAmatine] 20 mg PO TID@0700,1300,1900 07/25/23 [History] Bumetanide [BUMEX] 1 mg PO DAILY 08/13/23 [History] Insulin Glargine,Hum.rec.anlog [Lantus Solostar Pen] 10 units SQ HS 08/13/23 [History] Phenazopyridine [Pyridium] 100 mg PO TID@0700,1300,1900 08/13/23 [History] Tamsulosin [Flomax] 0.4 mg PO HS 08/13/23 [History] ALPRAZolam [Xanax] 0.25 mg PO Q6HR PRN #2 tab 08/21/23 [Rx] Aspirin 81 mg PO DAILY tab 08/21/23 [Rx] HYDROcodone/APAP 7.5-325MG [[place] 7.5-325] 1 tab PO Q6HR PRN #4 tab 08/21/23 [Rx] Ipratropium-Albuterol Nebulize [Duoneb 0.5 mg-3 mg/3 ml Soln] 3 ml INHALATION RT-TID each 08/21/23 [Rx] Nitroglycerin Sl Tabs [Nitrostat] 0.4 mg SUBLINGUAL Q5M PRN tab 08/21/23 [Rx] Follow up Appointment(s)/Referral(s): Megan Langford DO [Primary Care Provider] - 1-2 days [facility], [NON-STAFF] - 1 Week Activity/Diet/Wound Care/Special Instructions: Patient is going to ECF Activity as tolerated Continue taking medications as prescribed Need to be evaluated by physician outpatient for possible palliative paracentesis that is a standing order as patient required paracentesis 2 during this admission Follow-up primary care provider on discharge Discharge Disposition: TRANSFER TO SNF/ECF
[2023-08-21] MEDS: IPRATROPIUM-ALBUTEROL 3 ML NEB INHALATION SCH ×2 (11:41→11:42)
[2023-08-21 11:55] LABS: Glucose,Whole Blood 147 mg/dL (70-110)
[2023-08-21 12:07] VITALS: PULSE 94
== END 2023-08-21 12:22 | DRG 280 ==
LOC: EC 22:32 → 3SCARD 23:51 → 5NMEDONC 08-17 13:34
PROVIDERS: ADMIT Hospitalist; ATTEND Hospitalist
PROC: B2111ZZ Fluoroscopy of Multiple Coronary Arteries using Low Osmolar Contrast (ICD-10-PCS; principal; 2023-08-14 07:30)
PROC: 4A023N7 Measurement of Cardiac Sampling and Pressure, Left Heart, Percutaneous Approach (ICD-10-PCS; principal; 2023-08-14 07:30)
PROC: 0W9G3ZZ Drainage of Peritoneal Cavity, Percutaneous Approach (ICD-10-PCS; 2023-08-14 07:30)
PROC: 0W9G3ZZ Drainage of Peritoneal Cavity, Percutaneous Approach (ICD-10-PCS; 2023-08-20)
DX: I21.4 Non-ST elevation (NSTEMI) myocardial infarction (principal); K76.7 Hepatorenal syndrome; D61.818 Other pancytopenia; E27.1 Primary adrenocortical insufficiency; I42.9 Cardiomyopathy, unspecified; I50.30 Unspecified diastolic (congestive) heart failure; D63.8 Anemia in other chronic diseases classified elsewhere; E11.22 Type 2 diabetes mellitus with diabetic chronic kidney disease; I25.119 Atherosclerotic heart disease of native coronary artery with unspecified angina pectoris; I34.0 Nonrheumatic mitral (valve) insufficiency; F10.11 Alcohol abuse, in remission; K70.31 Alcoholic cirrhosis of liver with ascites; I95.9 Hypotension, unspecified; I25.10 Atherosclerotic heart disease of native coronary artery without angina pectoris; J44.9 Chronic obstructive pulmonary disease, unspecified; K22.70 Barrett's esophagus without dysplasia; N18.30 Chronic kidney disease, stage 3 unspecified; F17.210 Nicotine dependence, cigarettes, uncomplicated; Z79.51 Long term (current) use of inhaled steroids; Z79.82 Long term (current) use of aspirin; Z79.84 Long term (current) use of oral hypoglycemic drugs; Z79.899 Other long term (current) drug therapy; Z28.310 Unvaccinated for COVID-19; Z28.21 Immunization not carried out because of patient refusal; Z79.4 Long term (current) use of insulin
CPT/HCPCS: 36415; 49083; 71045; 71046; 76705; 76937; 80048; 80053; 82140; 83605; 83690; 83735; 83880; 84100; 84484; 85025; 85027; 85610; 85730; 86038; 86850; 86900; 86901; 86920; 93005; 93308; 93458; 94640; 94760; 96361; 96374; 99285

== ENCOUNTER 2023-09-03 11:58 | Inpatient (IN) | payer MEDICARE, OTHER ==
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
[2023-09-03 12:55] LABS: Anisocytosis Slight; Basophils % (A) 1 %; Eosinophils % (A) 1 %; HCT 25.1 % (39.0-53.0); HGB 7.9 gm/dL (13.0-17.5); Hypochromasia Marked; Lymphocytes # (A) 0.6 k/uL (1.0-4.8); Lymphocytes % (A) 19 %; MCH 36.1 pg (25.0-35.0); MCHC 31.3 g/dL (31.0-37.0); MCV 115.5 fL (80.0-100.0); Macrocytosis Marked; Mean Platelet Volume 8.5; Monocytes # (A) 0.2 k/uL (0-1.0); Monocytes % (A) 4 %; Neutrophils # (A) 2.4 k/uL (1.3-7.7); Neutrophils % (A) 71 %; Platelet Count 109 k/uL (150-450); RBC 2.18 m/uL (4.30-5.90); RDW 19.4 % (11.5-15.5); WBC 3.3 k/uL (3.8-10.6)
[2023-09-03 13:05] LABS: INR 0.9 (<1.2); Partial Thromboplastin Time 23.5 sec (22.0-30.0); Prothrombin Time 10.3 sec (10.0-12.5)
[2023-09-03 13:13] LABS: ALT 27 U/L (4-49); AST 30 U/L (17-59); African American GFR (CKD) 76 (>60 ml/min/1.73 sqM); Albumin 2.6 g/dL (3.5-5.0); Alkaline Phosphatase 156 U/L (38-126); Anion Gap 11 mmol/L; Blood Urea Nitrogen 46 mg/dL (9-20); Calcium 7.7 mg/dL (8.4-10.2); Carbon Dioxide 20 mmol/L (22-30); Chloride 105 mmol/L (98-107); Glucose 203 mg/dL (74-99); Magnesium 2.1 mg/dL (1.6-2.3); Non-African American GFR(CKD) 66 (>60 ml/min/1.73 sqM); Potassium 4.1 mmol/L (3.5-5.1); Sodium 136 mmol/L (137-145); Total Bilirubin 0.9 mg/dL (0.2-1.3); Total Protein 5.6 g/dL (6.3-8.2)
[2023-09-03 13:21] LABS: NT-Pro-B-Type Natriuretic Pept 5820 pg/mL
--- NOTE | 2023-09-03 13:37 | XR ---
EXAMINATION TYPE: XR chest 2V DATE OF EXAM: 09/03/2023 COMPARISON: 08/21/2023 INDICATION: Difficulty breathing, wheezing TECHNIQUE: Frontal and lateral views of the chest are obtained. FINDINGS: The heart size is normal. The pulmonary vasculature is normal. Right lower lobe infiltrate is present extending to the minor fissure. Degree of inspiration is limit ed. Differential diagnosis potentially could include an apical pneumothorax. Report was called and ca se discussed with the emergency room physician at the time of interpretation. IMPRESSION: 1. There appears to be mild diffuse infiltrates in the right lower lobe. Correlate for pneumonia. Thi s however gives an unusual appearance to the right apex on this limited inspiration chest x-ray. Whil e considered unlikely, pneumothorax is not excluded at this time.
--- NOTE | 2023-09-03 14:41 | CT ---
EXAMINATION TYPE: CT chest wo con DATE OF EXAM: 09/03/2023 COMPARISON: 07/03/2023 HISTORY: 63 year-old male shortness of breath, cough, nik TECHNIQUE: Contiguous axial scanning of the chest without IV contrast. Coronal/sagittal reconstructio ns performed. CT DLP: 610.7mGycm. Automatic exposure control utilized for a dose reduction. FINDINGS: Marked generalized anasarca which has progressed from 07/03/2023. Heart upper limits of normal in size without pericardial effusion. Extensive three-vessel coronary ar joshua calcifications are present. Aorta normal caliber with a conventional arch vessel branching anatomy. No thoracic lymphadenopathy by CT size criteria. Large caliber to the main right and left pulmonary arteries measuring up to 2.9 cm suggesting underly ing pulmonary hypertension. Chronic pleural thickening and pleural calcifications at the right hemithorax possibly relating to pr ior empyema, pleurodesis, or hemothorax. Mild emphysematous change. Diffuse bronchial wall thickening. Scattered strandy scarring at the right mid and lower lung. Residual atelectasis on the left. Small hiatal hernia. There may be some lower esophageal varices. Cirrhotic morphology of the liver. Larger upper abdominal ascites. Splenomegaly at 16.6 cm. Moderate stool burden. Bones: No osseous destructive process. Old healed inferior sternal body fracture. IMPRESSION: 1. Severe generalized anasarca change, progressed from 07/03/2023. Correlate for worsening third spac ing/fluid overload state. 2. There is underlying pulmonary arterial hypertension and COPD with mild emphysema. Extensive catal[place] ry artery disease calcifications. 3. Scattered areas of atelectasis. Chronic scarring at the right base. Hypoventilatory changes. Chron ic pleural changes with calcifications on the right. No focal infiltrate seen. 4. Similar large abdominal ascites with cirrhosis and portal venous hypertension.
[2023-09-03] MEDS ORDERED: IPRATROPIUM-ALBUTEROL 3 ML NEB INHALATION PRN (15:34)
[2023-09-03] MEDS ORDERED: ALBUTEROL NEBULIZED 2.5 MG/3 ML INHALATION PRN (15:34)
[2023-09-03] MEDS ORDERED: ALBUTEROL SULFATE INHALATION PRN (16:57)
[2023-09-03] MEDS ORDERED: CALCIUM CARBONATE 500 MG CHEWABLE PO PRN (16:57)
[2023-09-03] MEDS ORDERED: BUDESONIDE INHALATION PRN (16:57)
[2023-09-03] MEDS: PHENAZOPYRIDINE 100 MG TAB PO SCH (18:09)
[2023-09-03] MEDS: traMADol 50 MG TAB PO SCH ×2 (18:09→21:04)
[2023-09-03] MEDS: MIDODRINE 5 MG TAB PO SCH (18:09)
[2023-09-03 20:56] LABS: Glucose,Whole Blood 136 mg/dL (70-110)
[2023-09-03] MEDS: INSULIN DETEMIR (LEVEMIR) 100 UNIT/ML SYR SQ SCH (20:56)
[2023-09-03] MEDS ORDERED: IPRATROPIUM-ALBUTEROL 3 ML NEB INHALATION SCH (21:00)
[2023-09-03] MEDS: METOPROLOL TARTRATE 12.5 MG TAB PO SCH (21:04)
[2023-09-03] MEDS: ALPRAZolam 0.25 MG TAB PO PRN (21:04)
[2023-09-03] MEDS: TAMSULOSIN 0.4 MG CAP.ER.24H PO SCH (21:04)
[2023-09-03] MEDS: SYMBICORT 160-4.5 MCG INHALER INHALATION SCH (21:08)
[2023-09-03] MEDS: HYDROCORTISONE 10 MG TAB PO SCH (21:24)
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
[2023-09-04] MEDS: FUROSEMIDE 10 MG/ML 4 ML VIAL IV SCH ×4 (01:13→23:44)
[2023-09-04] MEDS ORDERED: SILDENAFIL 20 MG TAB PO SCH (04:00)
[2023-09-04] MEDS: PHENAZOPYRIDINE 100 MG TAB PO SCH ×3 (06:08→18:05)
[2023-09-04] MEDS: MIDODRINE 5 MG TAB PO SCH ×3 (06:08→18:05)
[2023-09-04 06:24] LABS: Glucose,Whole Blood 148 mg/dL (70-110)
[2023-09-04] MEDS: FAMOTIDINE 20 MG TAB PO SCH (07:36)
[2023-09-04] MEDS: ASPIRIN 81 MG PO SCH (07:36)
[2023-09-04] MEDS: FOLIC ACID 1 MG TAB PO SCH (07:36)
[2023-09-04] MEDS: METOPROLOL TARTRATE 12.5 MG TAB PO SCH ×2 (07:36→21:34)
[2023-09-04] MEDS: traMADol 50 MG TAB PO SCH ×4 (07:36→21:34)
[2023-09-04] MEDS: HEPARIN SODIUM,PORCINE 5,000 UNIT/ML 1 ML VIAL SQ SCH ×2 (07:36→21:35)
[2023-09-04] MEDS: CHOLECALCIFEROL 25 MCG (1000 IU) TABLET PO SCH (07:36)
[2023-09-04] MEDS: THIAMINE 100 MG TAB PO SCH (07:37)
[2023-09-04] MEDS ORDERED: BUMETANIDE 1 MG TAB PO SCH (09:00)
[2023-09-04] MEDS: DAPAGLIFLOZIN PROPANEDIOL 5 MG TABLET PO SCH (09:13)
[2023-09-04] MEDS: HYDROCORTISONE 20 MG TAB PO SCH (09:13)
[2023-09-04] MEDS: IPRATROPIUM-ALBUTEROL 3 ML NEB INHALATION SCH ×3 (09:14→20:15)
[2023-09-04] MEDS: SYMBICORT 160-4.5 MCG INHALER INHALATION SCH ×2 (09:14→20:15)
[2023-09-04] MEDS: ALBUMIN HUMAN 25% 50 ML in EMPTY BAG 1 BAG IVPB SCH ×2 (11:39→11:59)
[2023-09-04 11:45] LABS: Glucose,Whole Blood 163 mg/dL (70-110)
--- NOTE | 2023-09-04 11:48 | US ---
Ultrasound-guided paracentesis. DATE OF EXAM: 09/04/2023 CLINICAL HISTORY: Ascites The procedure was discussed with the patient. The risks, complications, benefits, and alternatives we re discussed and any questions were answered. Informed consent was obtained. The patient was placed s upine on the ultrasound table and prepped and draped in the usual sterile fashion. All elements of maximal barrier technique were utilized. Under ultrasound guidance, access into the left lower quadrant was obtained, via the paracentesis catheter system and direct ultrasound guidance . Approximately 6.6 liters of straw-colored fluid was removed. The patient was stable throughout the pr ocedure and remained stable upon discharge from Department of Radiology. IMPRESSION: Successful paracentesis under ultrasound guidance.
[2023-09-04] MEDS: ALPRAZolam 0.25 MG TAB PO PRN ×2 (15:13→23:51)
[2023-09-04] MEDS ORDERED: traMADol 50 MG TAB PO STA (15:31)
[2023-09-04 17:51] VITALS: RESP 16
[2023-09-04] MEDS: TAMSULOSIN 0.4 MG CAP.ER.24H PO SCH (21:34)
[2023-09-04] MEDS: INSULIN DETEMIR (LEVEMIR) 100 UNIT/ML SYR SQ SCH (21:35)
[2023-09-04 21:44] LABS: Glucose,Whole Blood 211 mg/dL (70-110)
[2023-09-04] MEDS: HYDROCORTISONE 10 MG TAB PO SCH (21:46)
--- NOTE | 2023-09-05 06:21 | P.PN ---
Subjective 63-year-old male with a PMH of type II DM, hypertension, hyperlipidemia, anxiety, alcohol abuse and COPD, Coronary artery disease with occluded right coronary artery subacute versus chronic Alcoholic Liver cirrhosis/ascites, Chronic kidney disease, Chronic anemia Be it was sent from [facility] for shortness of breath of one-day duration. Patient supposed to get paracentesis on 09/13/2023 Patient somewhat lethargic but answers questions and awake he denies chest pain or abdominal pain. He has bilateral basal crepitation and abdominal distention and bilateral pitting like edema Nonspecific GI or urinary complaints. Blood pressure is borderline despite being on midodrine 20 mg but also he is on metoprolol 12.5 mg, He has evidence of mild pancytopenia which is a chronic, WBC 3.3, hemoglobin 7.9 and platelet count 109. Creatinine 1.19 with evidence of chronic kidney disease, currently at baseline. ProBNP 5820 which is slightly above baseline. Has chest x-ray showing mild right lower lobe infiltrate most likely related to his fluid overload but the suspected right apical pneumothorax (when I reviewed the chest x-ray by myself and doesn't look there is pneumothorax) however CT of the chest was obtained recommendation and show normal thorax but there is progressive anasarca and pulmonary hypertension 09/04/2023 She is seen and examined at bedside he was awake alert, sitting up in bed and enjoining his meal in the emergency room He denies chest pain dyspnea, hemoptysis tachypneic with basal crepitation. He has significant abdominal distention and a 3+ leg edema. Patient was counseled about fluid restriction and he agreed. His blood pressure was on the low side but is going to improve the are going to add Aldactone 50 mg daily. Patient currently diuresing well on Lasix 40 mg a Q8 hours. Also he underwent paracentesis with 6.6 L of fluid has been taken out. We will check a bladder scan, Patient can be sent to the general medical floor Monitor electrolytes and creatinine Review of systems CONSTITUTIONAL: No fever, no malaise, no fatigue. HEENT: No recent visual problems or hearing problems. Denied any sore throat. CARDIOVASCULAR: No orthopnea, PND, no palpitations, no syncope. PULMONARY: No shortness of breath, no cough, no hemoptysis. GASTROINTESTINAL: No diarrhea, no nausea, no vomiting, no abdominal pain. Normoactive bowel sounds. NEUROLOGICAL: No headaches, no weakness, no numbness. Active Medications Generic Name Dose Route Start Last Admin Trade Name Freq PRN Reason Stop Dose Admin Albuterol Sulfate 2.5 mg 09/03/23 15:34 Albuterol Nebulized 2.5 Mg/3 Ml INHALATION RT-Q6H PRN Shortness Of Breath Albuterol/Ipratropium 3 ml 09/03/23 15:34 Ipratropium-Albuterol 3 Ml Neb INHALATION RT-Q4H PRN Shortness Of Breath Or Wheezing Albuterol/Ipratropium 3 ml 09/04/23 08:00 09/04/23 20:15 Ipratropium-Albuterol 3 Ml Neb INHALATION 3 ml RT-TID [facility] Administration Alprazolam 0.25 mg 09/03/23 15:34 09/04/23 23:51 Alprazolam 0.25 Mg Tab PO 0.25 mg Q6HR PRN Administration Mild Anxiety Aspirin 81 mg 09/04/23 09:00 09/04/23 07:36 Aspirin 81 Mg PO 81 mg DAILY [facility] Administration Budesonide/Formoterol Fumarate 2 puff 09/03/23 20:00 09/04/23 20:15 Symbicort 160-4.5 Mcg Inhaler INHALATION 2 puff RT-BID ADWO[facility] Administration Calcium Carbonate/Glycine 1,000 mg 09/03/23 16:57 Calcium Carbonate 500 Mg Chewable PO Q8H PRN Heartburn Cholecalciferol 25 mcg 09/04/23 09:00 09/04/23 07:36 Cholecalciferol 25 Mcg (1000 Iu) Tablet PO 25 mcg DAILY [facility] Administration Dapagliflozin 5 mg 09/04/23 09:00 09/04/23 09:13 Dapagliflozin Propanediol 5 Mg Tablet PO 5 mg DAILY [facility] Administration Darbepoetin Jesu 40 mcg 09/05/23 07:00 Darbepoetin Jesu 40 Mcg/0.4 Ml Syringe SQ TH@0700 [facility] Famotidine 20 mg 09/04/23 09:00 09/04/23 07:36 Famotidine 20 Mg Tab PO 20 mg DAILY [facility] Administration Folic Acid 1 mg 09/04/23 09:00 09/04/23 07:36 Folic Acid 1 Mg Tab PO 1 mg DAILY [facility] Administration Furosemide 40 mg 09/04/23 00:00 09/04/23 23:44 Furosemide 10 Mg/Ml 4 Ml Vial IV 40 mg Q8HR [facility] Administration Heparin Sodium (Porcine) 5,000 unit 09/04/23 09:00 09/04/23 21:35 Heparin Sodium,Porcine 5,000 Unit/Ml 1 Ml Vial SQ 5,000 unit Q12HR [facility] Administration Hydrocortisone 20 mg 09/04/23 09:00 09/04/23 09:13 Hydrocortisone 20 Mg Tab PO 20 mg DAILY [facility] Administration Hydrocortisone 10 mg 09/03/23 21:00 09/04/23 21:46 Hydrocortisone 10 Mg Tab PO 10 mg HS [facility] Administration Insulin Detemir 18 unit 09/03/23 21:00 09/04/23 21:35 Insulin Detemir (Levemir) 100 Unit/Ml Syr SQ 18 unit HS [facility] Administration Metoprolol Tartrate 12.5 mg 09/03/23 21:00 09/04/23 21:34 Metoprolol Tartrate 12.5 Mg Tab PO 12.5 mg BID [facility] Administration Midodrine 20 mg 09/03/23 19:00 09/04/23 18:05 Midodrine 5 Mg Tab PO 20 mg TID@0700,1300,1900 [facility] Administration Patient's Own ( 2 puff 09/03/23 16:57 Albuterol Sulfate/ INHALATION Budesonide [Airsupra RT-Q6H PRN 90-80 Mcg Inhaler] Shortness Of Breath 10.7 Gm Hfa. Phenazopyridine HCl 100 mg 09/03/23 19:00 09/04/23 18:05 Phenazopyridine 100 Mg Tab PO 100 mg TID@0700,1300,1900 [facility] Administration Spironolactone 50 mg 09/05/23 09:00 Spironolactone 25 Mg Tab PO DAILY [facility] Tamsulosin HCl 0.4 mg 09/03/23 21:00 09/04/23 21:34 Tamsulosin 0.4 Mg Cap.Er.24h PO 0.4 mg HS [facility] Administration Thiamine HCl 100 mg 09/04/23 09:00 09/04/23 07:37 Thiamine 100 Mg Tab PO 100 mg DAILY [facility] Administration Tramadol HCl 50 mg 09/03/23 18:00 09/04/23 21:34 Tramadol 50 Mg Tab PO 50 mg QID [facility] Administration Objective - Vital Signs Vital signs: Vital Signs Temp 98.1 F 09/04/23 15:06 Pulse 82 09/04/23 15:20 Resp 18 09/04/23 15:20 BP 92/65 09/04/23 15:06 Pulse Ox 93 L 09/04/23 15:06 FiO2 Intake & Output 09/03/23 09/04/23 09/04/23 18:59 06:59 18:59 Intake Total 360 Output Total 750 Balance 360 -750 Weight 81.647 kg Intake: Oral 360 Output: Urine 750 Other: Voiding Method Diaper External Catheter # Voids 3 - Exam GENERAL: The patient is alert and oriented x3, not in any acute distress. Well developed, well nourished. HEENT: Pupils are round and equally reacting to light. EOMI. No scleral icterus. No conjunctival pallor. Normocephalic, atraumatic. No pharyngeal erythema. No thyromegaly. CARDIOVASCULAR: S1 and S2 present. No murmurs, rubs, or gallops. -PULMONARY: Chest is clear to auscultation, no wheezing , n mild basal crackles. -ABDOMEN: Soft, nontender, distended, normoactive bowel sounds. No palpable organomegaly. MUSCULOSKELETAL: No joint swelling or deformity. -EXTREMITIES: No cyanosis, clubbing,, 3 + bilateral pitting leg edema. NEUROLOGICAL: Gross neurological examination did not reveal any focal deficits. SKIN: No rashes. no petechiae. - Labs CBC & Chem 7: 09/03/23 12:27 09/03/23 12:27 Labs: Abnormal Lab Results - Last 24 Hours (Table) 09/03/23 09/04/23 09/04/23 Range/Units 20:55 06:23 11:43 POC Glucose (mg/dL) 136 H 148 H 163 H (70-110) mg/dL Assessment and Plan Assessment: Fluids overload, with anasarca secondary to hepatorenal disease decpmpensted liver cirrhosis with moderate ascites, s/p paracentesis 6.6 L (on 09/04) Pancytopenia, chronic Chronic kidney disease, stage III Anemia of chronic disease Acute on chronic diastolic CHF with ejection fraction 50-55% Mitral regurgitation COPD with no exacerbation history of Avtar disease history of urinary retention Plan: Start the patient on IV Lasix 40 mg every 8 hours with Add Aldactone Fluid restriction Monitor electrolytes and creatinine Monitor bladder scan Monitor input and output Labs and medication were reviewed.. Continue same treatment. Continue with symptomatic treatment. Resume home medication. Monitor labs and vitals. DVT and GI prophylaxis. Further recommendations as per clinical course of the patient DVT prophylaxis: Subcutaneous heparin GI Prophylaxis: Pepcid
[2023-09-05] MEDS ORDERED: DARBEPOETIN ALFA 40 MCG/0.4 ML SYRINGE SQ SCH (07:00)
[2023-09-05 07:36] LABS: Glucose,Whole Blood 135 mg/dL (70-110)
[2023-09-05] MEDS: MIDODRINE 5 MG TAB PO SCH ×2 (07:49→15:07)
[2023-09-05] MEDS: IPRATROPIUM-ALBUTEROL 3 ML NEB INHALATION SCH ×2 (08:27→11:43)
[2023-09-05] MEDS: SYMBICORT 160-4.5 MCG INHALER INHALATION SCH (08:27)
[2023-09-05] MEDS: traMADol 50 MG TAB PO SCH ×2 (08:51→13:49)
[2023-09-05] MEDS: PHENAZOPYRIDINE 100 MG TAB PO SCH ×2 (08:52→13:52)
[2023-09-05] MEDS: METOPROLOL TARTRATE 12.5 MG TAB PO SCH (08:52)
[2023-09-05] MEDS: DAPAGLIFLOZIN PROPANEDIOL 5 MG TABLET PO SCH (08:52)
[2023-09-05] MEDS: FOLIC ACID 1 MG TAB PO SCH (08:52)
[2023-09-05] MEDS: HYDROCORTISONE 20 MG TAB PO SCH (08:53)
[2023-09-05] MEDS: CHOLECALCIFEROL 25 MCG (1000 IU) TABLET PO SCH (08:53)
[2023-09-05] MEDS: THIAMINE 100 MG TAB PO SCH (08:53)
[2023-09-05] MEDS: ASPIRIN 81 MG PO SCH (08:53)
[2023-09-05] MEDS: FAMOTIDINE 20 MG TAB PO SCH (08:53)
[2023-09-05] MEDS: HEPARIN SODIUM,PORCINE 5,000 UNIT/ML 1 ML VIAL SQ SCH (08:54)
[2023-09-05] MEDS: FUROSEMIDE 10 MG/ML 4 ML VIAL IV SCH (09:00)
[2023-09-05] MEDS ORDERED: SPIRONOLACTONE 25 MG TAB PO SCH (09:00)
[2023-09-05 09:13] LABS: Anisocytosis Slight; Basophils % (A) 1 %; Eosinophils % (A) 0 %; HCT 27.7 % (39.0-53.0); HGB 8.7 gm/dL (13.0-17.5); Hypochromasia Marked; Lymphocytes # (A) 0.9 k/uL (1.0-4.8); Lymphocytes % (A) 20 %; MCH 35.9 pg (25.0-35.0); MCHC 31.2 g/dL (31.0-37.0); MCV 115.1 fL (80.0-100.0); Macrocytosis Marked; Mean Platelet Volume 8.8; Monocytes # (A) 0.2 k/uL (0-1.0); Monocytes % (A) 4 %; Neutrophils # (A) 3.1 k/uL (1.3-7.7); Neutrophils % (A) 73 %; Platelet Count 114 k/uL (150-450); RBC 2.41 m/uL (4.30-5.90); RDW 19.3 % (11.5-15.5); WBC 4.2 k/uL (3.8-10.6)
[2023-09-05 09:33] LABS: African American GFR (CKD) 75 (>60 ml/min/1.73 sqM); Anion Gap 9 mmol/L; Blood Urea Nitrogen 43 mg/dL (9-20); Calcium 7.5 mg/dL (8.4-10.2); Carbon Dioxide 25 mmol/L (22-30); Chloride 102 mmol/L (98-107); Glucose 113 mg/dL (74-99); Non-African American GFR(CKD) 65 (>60 ml/min/1.73 sqM); Sodium 136 mmol/L (137-145)
[2023-09-05] MEDS ORDERED: LACTULOSE 20 GM/30 ML CUP PO SCH (10:15)
[2023-09-05 11:57] LABS: Glucose,Whole Blood 161 mg/dL (70-110)
[2023-09-05] MEDS ORDERED: POTASSIUM CHLORIDE ER 20 MEQ TAB.ER PO SCH (12:00)
[2023-09-05 12:36] VITALS: BP 107/59; PULSE 62; TEMP 97.9
--- NOTE | 2023-09-05 13:12 | P.DS ---
Providers Date of admission: 09/03/23 15:30 Attending physician: Parker Vivas MD Primary care physician: Megan Langford DO Hospital Course: Final Diagnosis Fluids overload, with anasarca secondary to hepatorenal disease decpmpensated liver cirrhosis with moderate ascites, s/p paracentesis 6.6 L (on 09/04) Pancytopenia, chronic Chronic kidney disease, stage III Anemia of chronic disease Acute on chronic diastolic CHF with ejection fraction 50-55% Mitral regurgitation COPD with no exacerbation history of Avtar disease history of urinary retention Discharge Disposition Patient is being discharged in a stable condition with guarded prognosis to [facility]. Patient will follow-up with Dr. Langford in the outpatient setting upon discharge. Patient is to continue with medications as prescribed and follow up with cardiology outpatient as scheduled. Patient is also discharged on aldactone in addition to oral bumex. Repeat labs in 2 to 3 days. Would recommend further investigation on palliative paracentesis in the outpatient setting as patient required large-volume paracentesis 1 during this admission and also had large volume paracentesis x 2 previous admission. Hospital Course 63-year-old male with a PMH of type II DM, hypertension, hyperlipidemia, anxiety, alcohol abuse and COPD, Coronary artery disease with occluded right coronary artery subacute versus chronic alcoholic Liver cirrhosis/ascites, C hronic kidney disease, Chronic anemia. He was sent from residential for shortness of breath of one-day duration. Patient supposed to get paracentesis on 09/13/2023. He has bilateral basal crepitation and abdominal distention and bilateral pitting like edema. Blood pressure is borderline despite being on midodrine 20 mg but also he is on metoprolol 12.5 mg. He has evidence of mild pancytopenia which is a chronic, WBC 3.3, hemoglobin 7.9 and platelet count 109. Creatinine 1.19 with evidence of chronic kidney disease, currently at baseline. ProBNP 5820 which is slightly above baseline. Has chest x-ray showing mild right lower lobe infiltrate most likely related to his fluid overload but the suspected right apical pneumothorax however CT of the chest was obtained recommendation and show normal thorax but there is progressive anasarca and pulmonary hypertension. Patient was admitted to the hospital with consult placed to IR for paracentesis. He was started on aldactone and was also started on IV lasix. He diuresed he is doing well no shortness of breath no chest pain. He is not having urinary retention. He is status post paracentesis with 6.6 L removed he would benefit greatly from scheduled outpatient paracentesis standing orders this will need to be coordinated from the ECF. White count 4.2, hgb 8.7, platelet count 114, sodium 136, potassium 3.0. It was supplemented. Renal func tion is WNL. He will be discharged today. Please see medication reconciliation for a list of current medications. Thank you for allowing us to participate in the care of this patient. The impression and plan of care has been dictated by Rbeekah Augustin, Nurse Practitioner as directed. Dr. Willard MD I have performed a history and physical examination and medical decision making of this patient, discussed the same with the dictator, and agree with the dictators assessment and plan as written, documented as a scribe. Based on total visit time, I have performed more than 50% of this visit. Patient Condition at Discharge: Fair Plan - Discharge Summary Discharge Rx Participant: No New Discharge Prescriptions: New Spironolactone [Aldactone] 50 mg PO DAILY tab Continue Cholecalciferol [Vitamin D3 (25 Mcg = 1000 Iu)] 25 mcg PO DAILY Hydrocortisone [Cortef] 10 mg PO HS tab Dapagliflozin Propanediol [Farxiga] 5 mg PO DAILY tab Potassium Chloride ER [K-Dur 20] 40 meq PO BID tab Albuterol Sulfate/Budesonide [Airsupra 90-80 Mcg Inhaler] 2 puff INHALATION RT-Q6H PRN PRN Reason: Shortness Of Breath Darbepoetin Jesu [Aranesp] 40 mcg SQ TH@0700 Phenazopyridine [Pyridium] 100 mg PO TID@0700,1300,1900 Insulin Lispro [humaLOG Kwikpen] See Protocol SQ ACHS HYDROcodone/APAP 7.5-325MG [[place] 7.5-325] 1 tab PO Q6HR PRN #4 tab PRN Reason: pain ALPRAZolam [Xanax] 0.25 mg PO Q6HR PRN #2 tab PRN Reason: Mild Anxiety Albuterol Inhaler [Ventolin Hfa Inhaler] 2 puff INHALATION RT-Q6H PRN PRN Reason: Shortness Of Breath Thiamine [Vitamin B-1] 100 mg PO DAILY #30 tab Hydrocortisone [Cortef] 20 mg PO DAILY tab Ipratropium-Albuterol Nebulize [Duoneb 0.5 mg-3 mg/3 ml Soln] 3 ml INHALATION RT-Q4H PRN each PRN Reason: Shortness Of Breath Or Wheezing Folic Acid 1 mg PO DAILY tab Famotidine [Pepcid] 20 mg PO DAILY tab Budesonide-Formot 160-4.5 Mcg [Symbicort 160-4.5 Mcg Inhaler] 2 puff INHALATION RT-BID each Midodrine HCl [ProAmatine] 20 mg PO TID@0700,1300,1900 Bumetanide [BUMEX] 1 mg PO DAILY Insulin Glargine,Hum.rec.anlog [Lantus Solostar Pen] 18 units SQ HS Tamsulosin [Flomax] 0.4 mg PO HS Aspirin 81 mg PO DAILY tab Calcium Carbonate [Tums] 1,000 mg PO Q8H PRN PRN Reason: Heartburn Ipratropium-Albuterol Nebulize [Duoneb 0.5 mg-3 mg/3 ml Soln] 3 ml INHALATION RT-TID@,, Metoprolol Tartrate [Lopressor] 12.5 mg PO BID Discharge Medication List Albuterol Inhaler [Ventolin Hfa Inhaler] 2 puff INHALATION RT-Q6H PRN 02/03/23 [History] Cholecalciferol [Vitamin D3 (25 Mcg = 1000 Iu)] 25 mcg PO DAILY 02/03/23 [History] Thiamine [Vitamin B-1] 100 mg PO DAILY #30 tab 02/06/23 [Rx] Budesonide-Formot 160-4.5 Mcg [Symbicort 160-4.5 Mcg Inhaler] 2 puff INHALATION RT-BID each 07/24/23 [Rx] Dapagliflozin Propanediol [Farxiga] 5 mg PO DAILY tab 07/24/23 [Rx] Famotidine [Pepcid] 20 mg PO DAILY tab 07/24/23 [Rx] Folic Acid 1 mg PO DAILY tab 07/24/23 [Rx] Hydrocortisone [Cortef] 10 mg PO HS tab 07/24/23 [Rx] Hydrocortisone [Cortef] 20 mg PO DAILY tab 07/24/23 [Rx] Ipratropium-Albuterol Nebulize [Duoneb 0.5 mg-3 mg/3 ml Soln] 3 ml INHALATION RT-Q4H PRN each 07/24/23 [Rx] Potassium Chloride ER [K-Dur 20] 40 meq PO BID tab 07/24/23 [Rx] Albuterol Sulfate/Budesonide [Airsupra 90-80 Mcg Inhaler] 2 puff INHALATION RT- Q6H PRN 07/25/23 [History] Darbepoetin Jesu [Aranesp] 40 mcg SQ TH@0700 07/25/23 [History] Midodrine HCl [ProAmatine] 20 mg PO TID@0700,1300,1900 07/25/23 [History] Bumetanide [BUMEX] 1 mg PO DAILY 08/13/23 [History] Insulin Glargine,Hum.rec.anlog [Lantus Solostar Pen] 18 units SQ HS 08/13/23 [History] Phenazopyridine [Pyridium] 100 mg PO TID@0700,1300,1900 08/13/23 [History] Tamsulosin [Flomax] 0.4 mg PO HS 08/13/23 [History] Aspirin 81 mg PO DAILY tab 08/21/23 [Rx] Calcium Carbonate [Tums] 1,000 mg PO Q8H PRN 09/03/23 [History] Insulin Lispro [humaLOG Kwikpen] See Protocol SQ ACHS 09/03/23 [History] Ipratropium-Albuterol Nebulize [Duoneb 0.5 mg-3 mg/3 ml Soln] 3 ml INHALATION RT-TID@05,13,21 09/03/23 [History] Metoprolol Tartrate [Lopressor] 12.5 mg PO BID 09/03/23 [History] ALPRAZolam [Xanax] 0.25 mg PO Q6HR PRN #2 tab 09/05/23 [Rx] HYDROcodone/APAP 7.5-325MG [[place] 7.5-325] 1 tab PO Q6HR PRN #4 tab 09/05/23 [Rx] Spironolactone [Aldactone] 50 mg PO DAILY tab 09/05/23 [Rx] Follow up Appointment(s)/Referral(s): Megan Langford DO [Primary Care Provider] - 1-2 days Ambulatory/Diagnostic Orders: Basic Metabolic Panel [LAB.AMB] Time Frame: 3 Days, Location: None Selected Complete Blood Count w/diff [LAB.AMB] Location: None Selected Activity/Diet/Wound Care/Special Instructions: Patient is going to ECF Activity as tolerated Continue taking medications as prescribed Need to be evaluated by physician outpatient for possible palliative paracentesis that is a standing order as patient required paracentesis 2 during this admission Follow-up primary care provider on discharge
[2023-09-05] MEDS: ALPRAZolam 0.25 MG TAB PO PRN (16:12)
[2023-09-05] MEDS ORDERED: ONDANSETRON ODT 4 MG TAB PO PRN (16:29)
[2023-09-05] MEDS ORDERED: ONDANSETRON 4 MG/2 ML VIAL IVP PRN (16:29)
== END 2023-09-05 16:37 | DRG 432 ==
LOC: EC 11:58 → 3SCARD 15:30 → 4SSUR 09-04 12:50 → 5NMEDONC 09-04 15:22 → OBSVTOIN 09-05 10:06
PROVIDERS: ADMIT Internal Medicine; ATTEND Internal Medicine
DX: K70.31 Alcoholic cirrhosis of liver with ascites (principal); I50.33 Acute on chronic diastolic (congestive) heart failure; I13.0 Hypertensive heart and chronic kidney disease with heart failure and stage 1 through stage 4 chronic kidney disease, or unspecified chronic kidney disease; D61.818 Other pancytopenia; E27.1 Primary adrenocortical insufficiency; E11.22 Type 2 diabetes mellitus with diabetic chronic kidney disease; N18.30 Chronic kidney disease, stage 3 unspecified; F10.20 Alcohol dependence, uncomplicated; J44.9 Chronic obstructive pulmonary disease, unspecified; Z79.4 Long term (current) use of insulin; I34.0 Nonrheumatic mitral (valve) insufficiency; D63.1 Anemia in chronic kidney disease; I25.810 Atherosclerosis of coronary artery bypass graft(s) without angina pectoris; F41.9 Anxiety disorder, unspecified; E78.5 Hyperlipidemia, unspecified; Z79.82 Long term (current) use of aspirin; Z79.51 Long term (current) use of inhaled steroids; Z79.84 Long term (current) use of oral hypoglycemic drugs; Z79.52 Long term (current) use of systemic steroids; Z79.899 Other long term (current) drug therapy; Z87.891 Personal history of nicotine dependence
CPT/HCPCS: 36415; 49083; 71046; 71250; 80048; 80053; 83605; 83735; 83880; 84484; 85025; 85610; 85730; 93005; 94640; 94760; 96365; 96372; 96375; 96376; 99285

== ENCOUNTER 2023-09-10 08:07 | Day surgery (SDC) | payer MEDICARE, OTHER ==
[2023-09-10 08:41] LABS: Mean Platelet Volume 8.5; Platelet Count 129 k/uL (150-450)
[2023-09-10 08:47] LABS: INR 0.9 (<1.2); Prothrombin Time 10.4 sec (10.0-12.5)
[2023-09-10 09:03] LABS: African American GFR (CKD) 88 (>60 ml/min/1.73 sqM); Glucose 318 mg/dL (74-99); Non-African American GFR(CKD) 76 (>60 ml/min/1.73 sqM)
[2023-09-10 09:11] VITALS: TEMP 97.8
[2023-09-10] MEDS ORDERED: HYDROcodone/APAP 5-325MG 1 EACH TAB PO STA (09:38)
[2023-09-10] MEDS: ALBUMIN HUMAN 25% 50 ML in EMPTY BAG 1 BAG IVPB SCH ×4 (09:45→10:40)
[2023-09-10 11:37] VITALS: BP 119/68; PULSE 80; RESP 18
--- NOTE | 2023-09-10 12:27 | US ---
Ultrasound-guided paracentesis. DATE OF EXAM: 09/10/2023 CLINICAL HISTORY: Ascites The procedure was discussed with the patient. The risks, complications, benefits, and alternatives we re discussed and any questions were answered. Informed consent was obtained. The patient was placed s upine on the ultrasound table and prepped and draped in the usual sterile fashion. All elements of maximal barrier technique were utilized. Under ultrasound guidance, access into the right lower quadrant was obtained, via the paracentesis catheter system and direct ultrasound guidanc e. Approximately 8.8 liters of straw-colored fluid was removed. The patient was stable throughout the pr ocedure and remained stable upon discharge from Department of Radiology. IMPRESSION: Successful paracentesis under ultrasound guidance.
== END 2023-09-10 11:15 | disposition home health service (06) ==
LOC: RADPROMAIN 08:07
PROVIDERS: ATTEND Internal Medicine
DX: R18.8 Other ascites (principal)
CPT/HCPCS: 82565; 82947; 85049; 85610; 36415; 49083; P9047

== ENCOUNTER → 2023-09-11 | Outpatient (CLI) | payer MEDICARE, OTHER ==
--- NOTE | 2023-09-12 16:59 | MR ---
EXAMINATION TYPE: MR lumbar spine wo con DATE OF EXAM: 09/11/2023 2:10 PM CLINICAL INDICATION:Male, 63 years old with history of M54.50 low back pain, Lower back pain, LLE rad iculopathy, fall. COMPARISON: None TECHNIQUE: Multi planar, multi sequence imaging was performed utilizing: T1-weighted, T2-weighted, a nd turbo inversion recovery imaging of the lumbar spine. IV Contrast: cc . (None if empty) FINDINGS: Limited evaluation due to diffuse shading of the anterior spine on sagittal imaging. Alignment: The lumbar vertebral bodies have preserved heights with grade 1 anterolisthesis of L4 on L 5. Cord: The conus medullaris and the distal spinal cord appear unremarkable with regards to their signa l intensity and morphology. Bones/Discs: Mild degeneration changes throughout the spine with osteophyte formation and facet joint arthropathy. Intervertebral disc signal is maintained. T12-L1: No evidence of significant spinal canal stenosis or neural foraminal stenosis. L1-L2: No evidence of significant spinal canal stenosis or neural foraminal stenosis. L2-L3: Disc bulge and facet joint arthropathy result in moderate spinal canal and mild bilateral neur al foraminal stenosis. L3-L4: No evidence of significant spinal canal stenosis. Facet joint arthropathy mild bilateral neura l foraminal stenosis. L4-L5: Disc bulge and facet joint arthropathy result in mild to moderate spinal canal and mild bilate ral neural foraminal stenosis. L5-S1: The disc is rounded posterior morphology without significant spinal canal stenosis. Facet join t arthropathy with mild bilateral neural foraminal stenosis. No significant spinal canal or neural foraminal stenosis in the remainder of the visualized levels. Other findings: None. IMPRESSION: 1. No definitive evidence of disc herniation or significant spinal canal stenosis. 2. Mild disc degeneration with associated osteoarthritic changes. 3. Grade 1 anterolisthesis of L4 and L5 without significant spinal canal stenosis.
== END | disposition home or self-care (01) ==
LOC: RADMRIMAIN 13:02
PROVIDERS: ATTEND Orthopaedic Surgery
DX: M51.16 Intervertebral disc disorders with radiculopathy, lumbar region (principal); M47.26 Other spondylosis with radiculopathy, lumbar region; M43.16 Spondylolisthesis, lumbar region
CPT/HCPCS: 72148

== ENCOUNTER 2023-09-12 00:50 | Emergency (ER) | payer MEDICARE, OTHER ==
[2023-09-12 01:10] VITALS: RESP 18; TEMP 97.9
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
[2023-09-12 01:50] LABS: Anisocytosis Slight; Basophils % (A) 0 %; Eosinophils % (A) 0 %; HCT 24.2 % (39.0-53.0); HGB 7.6 gm/dL (13.0-17.5); Hypochromasia Marked; Lymphocytes # (A) 0.6 k/uL (1.0-4.8); Lymphocytes % (A) 22 %; MCH 36.1 pg (25.0-35.0); MCHC 31.5 g/dL (31.0-37.0); MCV 114.7 fL (80.0-100.0); Macrocytosis Marked; Monocytes # (A) 0.1 k/uL (0-1.0); Monocytes % (A) 5 %; Neutrophils % (A) 71 %; RBC 2.11 m/uL (4.30-5.90); RDW 18.9 % (11.5-15.5); WBC 2.9 k/uL (3.8-10.6)
[2023-09-12 01:56] LABS: Platelet Count 92 k/uL (150-450)
[2023-09-12 02:00] LABS: Partial Thromboplastin Time 24.2 sec (22.0-30.0); Prothrombin Time 10.5 sec (10.0-12.5)
[2023-09-12 02:06] LABS: ALT 22 U/L (4-49); AST 27 U/L (17-59); African American GFR (CKD) 89 (>60 ml/min/1.73 sqM); Albumin 2.8 g/dL (3.5-5.0); Alkaline Phosphatase 122 U/L (38-126); Anion Gap 9 mmol/L; Blood Urea Nitrogen 36 mg/dL (9-20); Calcium 8.2 mg/dL (8.4-10.2); Carbon Dioxide 22 mmol/L (22-30); Chloride 101 mmol/L (98-107); Glucose 209 mg/dL (74-99); Magnesium 2.1 mg/dL (1.6-2.3); Non-African American GFR(CKD) 77 (>60 ml/min/1.73 sqM); Potassium 4.8 mmol/L (3.5-5.1); Sodium 132 mmol/L (137-145); Total Bilirubin 0.6 mg/dL (0.2-1.3); Total Protein 5.5 g/dL (6.3-8.2)
[2023-09-12 05:26] VITALS: BP 105/64; PULSE 80
== END 2023-09-12 09:08 | disposition home or self-care (01) ==
LOC: EC 00:50
DX: D64.9 Anemia, unspecified (principal); I25.10 Atherosclerotic heart disease of native coronary artery without angina pectoris; J44.9 Chronic obstructive pulmonary disease, unspecified; E11.9 Type 2 diabetes mellitus without complications; Z87.891 Personal history of nicotine dependence; Z79.4 Long term (current) use of insulin; Z79.51 Long term (current) use of inhaled steroids; Z79.84 Long term (current) use of oral hypoglycemic drugs; Z79.899 Other long term (current) drug therapy
CPT/HCPCS: 36415; 80053; 82272; 83605; 83735; 85025; 85610; 85730; 86850; 86900; 86901; 93005; 99284

== ENCOUNTER 2023-09-19 11:56 | Inpatient (IN) | payer MEDICARE, OTHER ==
[2023-09-19] MEDS ORDERED: IPRATROPIUM 0.5 MG/2.5 ML NEBU INHALATION STA (12:12)
[2023-09-19] MEDS ORDERED: ALBUTEROL NEBULIZED 2.5 MG/3 ML INHALATION STA (12:12)
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
[2023-09-19 13:17] LABS: Anisocytosis Slight; Basophils % (A) 0 %; Eosinophils % (A) 1 %; HCT 22.9 % (39.0-53.0); HGB 7.1 gm/dL (13.0-17.5); Hypochromasia Moderate; Lymphocytes # (A) 0.5 k/uL (1.0-4.8); Lymphocytes % (A) 18 %; MCH 35.6 pg (25.0-35.0); MCHC 30.9 g/dL (31.0-37.0); MCV 115.3 fL (80.0-100.0); Macrocytosis Marked; Mean Platelet Volume 8.6; Monocytes # (A) 0.2 k/uL (0-1.0); Monocytes % (A) 6 %; Neutrophils % (A) 72 %; Platelet Count 101 k/uL (150-450); RBC 1.98 m/uL (4.30-5.90); RDW 18.8 % (11.5-15.5); WBC 2.8 k/uL (3.8-10.6)
--- NOTE | 2023-09-19 13:25 | XR ---
EXAMINATION TYPE: XR chest 2V DATE OF EXAM: 09/19/2023 COMPARISON: 09/03/2023 HISTORY: 63 year-old male shortness of breath, difficulty breathing TECHNIQUE: AP and lateral views FINDINGS: Low lung volumes and crowded vascular markings. Pleural parenchymal opacities on the right remain unc hanged in though some patchy right basilar opacity appears to be increasing. Mild interstitial densit y on the left is unchanged. Unchanged pleural plaque left upper lobe. Large surgical staple at the [facility] humeral head. IMPRESSION: Chronic pleural-based calcifications on the right and similar interstitial densities, right greater t ernst left. Some mild patchy opacity at the right base is slightly increased and could represent atelec tasis or an early infiltrate. Clinically correlate.
[2023-09-19 13:39] LABS: INR 0.9 (<1.2); Prothrombin Time 10.1 sec (10.0-12.5)
[2023-09-19 13:43] LABS: ALT 32 U/L (4-49); AST 39 U/L (17-59); African American GFR (CKD) 84 (>60 ml/min/1.73 sqM); Albumin 2.6 g/dL (3.5-5.0); Alkaline Phosphatase 149 U/L (38-126); Anion Gap 8 mmol/L; Blood Urea Nitrogen 37 mg/dL (9-20); Calcium 7.8 mg/dL (8.4-10.2); Carbon Dioxide 22 mmol/L (22-30); Chloride 101 mmol/L (98-107); Glucose 193 mg/dL (74-99); Non-African American GFR(CKD) 73 (>60 ml/min/1.73 sqM); Potassium 4.6 mmol/L (3.5-5.1); Sodium 131 mmol/L (137-145); Total Bilirubin 0.6 mg/dL (0.2-1.3); Total Protein 5.6 g/dL (6.3-8.2)
[2023-09-19 13:45] LABS: Partial Thromboplastin Time 19.9 sec (22.0-30.0)
[2023-09-19 13:49] LABS: NT-Pro-B-Type Natriuretic Pept 2700 pg/mL
[2023-09-19] MEDS ORDERED: FUROSEMIDE 10 MG/ML 2 ML VIAL IV STA (14:00)
[2023-09-19] MEDS ORDERED: methylPREDNISolone SOD SUCCI 125 MG/2 ML VIAL IV SCH (14:00)
[2023-09-19] MEDS ORDERED: NALOXONE 0.4 MG/ML 1 ML VIAL IV PRN (14:02)
[2023-09-19 14:20] LABS: Polychromasia Present
[2023-09-19] MEDS ORDERED: CALCIUM CARBONATE 500 MG CHEWABLE PO PRN (14:32)
[2023-09-19] MEDS ORDERED: ALBUTEROL HFA INHALER INHALATION PRN (14:32)
[2023-09-19] MEDS ORDERED: IPRATROPIUM-ALBUTEROL 3 ML NEB INHALATION PRN (14:32)
[2023-09-19] MEDS ORDERED: DEXTROSE 50% SYRINGE 50 ML IVP PRN ×2 (14:40)
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
[2023-09-19] MEDS: FUROSEMIDE 10 MG/ML 4 ML VIAL IV SCH ×2 (16:23→20:12)
[2023-09-19 16:41] LABS: Glucose,Whole Blood 242 mg/dL (70-110)
[2023-09-19] MEDS: ALBUMIN HUMAN 25% 50 ML in EMPTY BAG 1 BAG IVPB SCH ×3 (16:45→17:53)
[2023-09-19] MEDS: HYDROCORTISONE 20 MG TAB PO SCH (16:50)
--- NOTE | 2023-09-19 16:52 | US ---
EXAMINATION TYPE: US abdomen limited DATE OF EXAM: 09/19/2023 COMPARISON: US 09/20/2023 CLINICAL INDICATION: Male, 63 years old with history of ASCITES TECHNIQUE: Multiple sonographic images of the 4 abdominal quadrants were obtained for assessment of a scites fluid. FINDINGS: [employer] notes: Scanned all four quadrants of the abdomen. Ascites seen within all four quadrants. Largest pocket seen on the right side. IMPRESSION: Mild to moderate abdominal ascites, largest pockets in the right side of the abdomen.
[2023-09-19] MEDS: INSULIN ASPART (NovoLOG) 100 UNIT/ML VIAL SQ SCH ×2 (18:00→20:13)
[2023-09-19] MEDS: IPRATROPIUM-ALBUTEROL 3 ML NEB INHALATION SCH ×3 (18:25→23:17)
[2023-09-19] MEDS: SYMBICORT 160-4.5 MCG INHALER INHALATION SCH (18:48)
[2023-09-19 19:57] LABS: Glucose,Whole Blood 341 mg/dL (70-110)
[2023-09-19] MEDS: HYDROCORTISONE 10 MG TAB PO SCH (20:12)
[2023-09-19] MEDS: MIDODRINE 5 MG TAB PO SCH (20:12)
[2023-09-19] MEDS: INSULIN DETEMIR (LEVEMIR) 100 UNIT/ML SYR SQ SCH (20:13)
[2023-09-19] MEDS: TAMSULOSIN 0.4 MG CAP.ER.24H PO SCH (20:13)
[2023-09-19] MEDS: ALPRAZolam 0.25 MG TAB PO PRN (21:23)
[2023-09-19] MEDS: HYDROcodone/APAP 5-325MG 1 EACH TAB PO PRN (23:31)
[2023-09-20] MEDS: IPRATROPIUM-ALBUTEROL 3 ML NEB INHALATION SCH ×6 (03:32→23:32)
[2023-09-20 07:01] LABS: Glucose,Whole Blood 230 mg/dL (70-110)
[2023-09-20] MEDS: SYMBICORT 160-4.5 MCG INHALER INHALATION SCH ×3 (07:45→19:47)
[2023-09-20] MEDS: THIAMINE 100 MG TAB PO SCH (08:42)
[2023-09-20] MEDS: INSULIN ASPART (NovoLOG) 100 UNIT/ML VIAL SQ SCH ×4 (08:42→21:02)
[2023-09-20] MEDS: HYDROCORTISONE 20 MG TAB PO SCH (08:42)
[2023-09-20] MEDS: FUROSEMIDE 10 MG/ML 4 ML VIAL IV SCH ×2 (08:42→21:01)
[2023-09-20] MEDS: CHOLECALCIFEROL 25 MCG (1000 IU) TABLET PO SCH (08:42)
[2023-09-20] MEDS: ASPIRIN 81 MG PO SCH (08:43)
[2023-09-20] MEDS: MIDODRINE 5 MG TAB PO SCH ×3 (09:42→17:53)
[2023-09-20] MEDS: DAPAGLIFLOZIN PROPANEDIOL 10 MG TABLET PO SCH (09:42)
[2023-09-20 11:06] LABS: Anisocytosis Slight; HCT 22.7 % (39.0-53.0); Hypochromasia Marked; MCH 36.1 pg (25.0-35.0); MCHC 30.9 g/dL (31.0-37.0); MCV 116.8 fL (80.0-100.0); Macrocytosis Marked; RBC 1.95 m/uL (4.30-5.90); RDW 18.4 % (11.5-15.5); WBC 2.7 k/uL (3.8-10.6)
[2023-09-20 11:31] LABS: ALT 30 U/L (4-49); AST 28 U/L (17-59); African American GFR (CKD) 71 (>60 ml/min/1.73 sqM); Albumin 2.8 g/dL (3.5-5.0); Alkaline Phosphatase 121 U/L (38-126); Anion Gap 9 mmol/L; Blood Urea Nitrogen 39 mg/dL (9-20); Calcium 7.9 mg/dL (8.4-10.2); Carbon Dioxide 24 mmol/L (22-30); Chloride 101 mmol/L (98-107); Globulin 2.7 g/dL; Glucose 223 mg/dL (74-99); Non-African American GFR(CKD) 61 (>60 ml/min/1.73 sqM); Potassium 4.5 mmol/L (3.5-5.1); Sodium 134 mmol/L (137-145); Total Bilirubin 0.5 mg/dL (0.2-1.3); Total Protein 5.5 g/dL (6.3-8.2)
[2023-09-20 11:49] LABS: Glucose,Whole Blood 233 mg/dL (70-110)
[2023-09-20 11:54] LABS: Platelet Count 73 k/uL (150-450)
--- NOTE | 2023-09-20 12:26 | P.PN ---
Subjective Progress Note Date: 09/20/23 patient is 63-year-old gentleman past medical history significant for type II DM, hypertension, hyperlipidemia, anxiety, alcohol abuse and COPD, Coronary artery disease with occluded right coronary artery subacute versus chronic Alcoholic Liver cirrhosis/ascites, Chronic kidney disease, Chronic anemia who presented to the ER for worsening shortness of breath. Patient has been admitted to the hospital with similar complaints couple of weeks ago at which time patient had paracentesis done and was discharged back to assisted. Patient stated that for last few days she has been noticing increasing shortness of breath. Shortness of breath was present on rest as well as exertion. Patient denies any chest pain. Patient also complaining of abdominal distention. Patient also has swelling of lower extremities. Denies any complaint of orthopnea or PND. There was no complain of fever or chills. Patient had blood work done outpatient that showed patient to a hemoglobin of 6.7, denies any blood in the stools. Because of this worsening shortness of breath, patient was brought to the ER Initial lab work done in the ER showed WBC 2.8, hemoglobin 7.1, platelet count 101 sodium 131, potassium 4.6, BUN 37, creatinine 1.09, glucose 193, calcium 7.8, alk phos 149, proBNP 2700 EKG done in the ER showed heart rate of 71, no ST segment elevation or depression seen, no T-wave inversions seen. Chest x-ray done in the ER showed chronic pleural based calcifications in the right and similar interstitial densities, right greater than left. Some mild patchy opacity at the right base is slightly increased and could her present atelectases on an early infiltrate Patient admitted to internal medicine service 09/20. Patient seen and examined. Still has abdominal distention. Still has swelling of lower extremities. INR scheduled for paracentesis REVIEW OF SYSTEMS: CONSTITUTIONAL: No fever, no malaise,. CARDIOVASCULAR: No chest pain, no palpitations, no syncope. PULMONARY: No shortness of breath, no cough, GASTROINTESTINAL: No diarrhea, no nausea, no vomiting,. NEUROLOGICAL: No headaches, no weakness, PHYSICAL EXAMINATION: GENERAL: The patient is alert and oriented x3, not in any acute distress. Chronically ill-looking HEENT: Pupils are round and equally reacting to light. EOMI. No scleral icterus. No conjunctival pallor. Normocephalic, atraumatic. No pharyngeal erythema. No thyromegaly. CARDIOVASCULAR: S1 and S2 present. No murmurs, rubs, or gallops. PULMONARY: Chest is clear to auscultation, no wheezing or crackles. ABDOMEN: Distended, normoactive bowel sounds. No palpable organomegaly. Fluid thrill positive MUSCULOSKELETAL: No joint swelling or deformity. EXTREMITIES: 2+ pitting edema of lower extremities bilaterally NEUROLOGICAL: Gross neurological examination did not reveal any focal deficits. SKIN: No rashes. Assessment and plan Fluids overload, with anasarca secondary to hepatorenal disease decpmpensted liver cirrhosis with moderate ascites, new diagnosis, decompensated Pancytopenia, chronic Chronic kidney disease, stage III Anemia of chronic disease Acute on chronic diastolic CHF with ejection fraction 50-55% Mitral regurgitation COPD with no exacerbation history of [place] disease Monitor vital signs Monitor CBC Monitor CMP Continue telemetry monitoring Strict I's and O's, daily weights, continue IV Lasix 40 mg twice a day Continue breathing treatments Consulted IR for paracentesis Ordered albumin post-paracentesis Monitor blood sugar levels, continue sliding scale insulin, resume Lantus. Patient is not on a beta izaiah, Eduardo, ARB due to hypotension Patient is not on statin due to cirrhosis In regards to acute anemia,continue to monitor H&H transfuse for hemodynamic instability or hemoglobin less than 7 In regards to diabetes mellitus, continue current insulin regimen Labs and medication were reviewed.. Continue same treatment. Continue with symptomatic treatment. Resume home medication. Monitor labs and vitals. DVT and GI prophylaxis. Further recommendations as per clinical course of the jing ent Dictation was produced using [employer] dictation software. please excuse any grammatical, word or spelling errors. Objective - Vital Signs Vital signs: Vital Signs Temp 98.8 F 09/20/23 07:05 Pulse 70 09/20/23 07:56 Resp 17 09/20/23 07:05 BP 101/49 09/20/23 07:05 Pulse Ox 94 L 09/20/23 07:45 FiO2 Intake & Output 09/19/23 09/20/23 09/20/23 18:59 06:59 18:59 Intake Total 300 590 Output Total 475 Balance 300 115 Weight 88.451 kg 88.451 kg Intake: Intake, IV Titration 150 Amount Albumin Human 25% 50 ml 150 In Empty Bag 1 bag @ 200 mls/hr [facility] Q[facility] Rx#: [id number] Oral 150 590 Output: Urine 475 Other: Voiding Method Toilet Urinal # Voids 2 # Bowel Movements 0 - Labs CBC & Chem 7: 09/20/23 10:53 09/20/23 10:53 Labs: Abnormal Lab Results - Last 24 Hours (Table) 09/19/23 09/19/23 09/19/23 Range/Units 12:53 12:53 12:53 WBC 2.8 L (3.8-10.6) k/uL RBC 1.98 L (4.30-5.90) m/uL Hgb 7.1 L (13.0-17.5) gm/dL Hct 22.9 L (39.0-53.0) % MCV 115.3 H (80.0-100.0) fL MCH 35.6 H (25.0-35.0) pg MCHC 30.9 L (31.0-37.0) g/dL RDW 18.8 H (11.5-15.5) % Plt Count 101 L (150-450) k/uL Lymphocytes # 0.5 L (1.0-4.8) k/uL Macrocytosis Marked A APTT 19.9 L (22.0-30.0) sec Sodium 131 L (137-145) mmol/L BUN 37 H (9-20) mg/dL Glucose 193 H (74-99) mg/dL POC Glucose (mg/dL) (70-110) mg/dL Calcium 7.8 L (8.4-10.2) mg/dL Alkaline Phosphatase 149 H (38-126) U/L Total Protein 5.6 L (6.3-8.2) g/dL Albumin 2.6 L (3.5-5.0) g/dL 09/19/23 09/19/23 09/20/23 Range/Units 16:39 19:56 07:00 WBC (3.8-10.6) k/uL RBC (4.30-5.90) m/uL Hgb (13.0-17.5) gm/dL Hct (39.0-53.0) % MCV (80.0-100.0) fL MCH (25.0-35.0) pg MCHC (31.0-37.0) g/dL RDW (11.5-15.5) % Plt Count (150-450) k/uL Lymphocytes # (1.0-4.8) k/uL Macrocytosis APTT (22.0-30.0) sec Sodium (137-145) mmol/L BUN (9-20) mg/dL Glucose (74-99) mg/dL POC Glucose (mg/dL) 242 H 341 H 230 H (70-110) mg/dL Calcium (8.4-10.2) mg/dL Alkaline Phosphatase (38-126) U/L Total Protein (6.3-8.2) g/dL Albumin (3.5-5.0) g/dL
[2023-09-20 16:04] LABS: Glucose,Whole Blood 211 mg/dL (70-110)
[2023-09-20 17:34] LABS: Glucose,Whole Blood 200 mg/dL (70-110)
[2023-09-20 20:39] LABS: Glucose,Whole Blood 174 mg/dL (70-110)
[2023-09-20] MEDS: HYDROCORTISONE 10 MG TAB PO SCH (21:01)
[2023-09-20] MEDS: TAMSULOSIN 0.4 MG CAP.ER.24H PO SCH (21:01)
[2023-09-20] MEDS: INSULIN DETEMIR (LEVEMIR) 100 UNIT/ML SYR SQ SCH (21:02)
[2023-09-21] MEDS: IPRATROPIUM-ALBUTEROL 3 ML NEB INHALATION SCH ×5 (03:29→18:21)
[2023-09-21] MEDS: SYMBICORT 160-4.5 MCG INHALER INHALATION SCH ×2 (07:43→18:21)
[2023-09-21 07:44] LABS: Glucose,Whole Blood 105 mg/dL (70-110)
[2023-09-21] MEDS: INSULIN ASPART (NovoLOG) 100 UNIT/ML VIAL SQ SCH ×4 (08:05→21:05)
[2023-09-21] MEDS: THIAMINE 100 MG TAB PO SCH (08:12)
[2023-09-21] MEDS: HYDROCORTISONE 20 MG TAB PO SCH (08:12)
[2023-09-21] MEDS: ASPIRIN 81 MG PO SCH (08:12)
[2023-09-21] MEDS: CHOLECALCIFEROL 25 MCG (1000 IU) TABLET PO SCH (08:12)
[2023-09-21] MEDS: MIDODRINE 5 MG TAB PO SCH ×3 (08:12→17:46)
[2023-09-21] MEDS: DAPAGLIFLOZIN PROPANEDIOL 10 MG TABLET PO SCH (08:12)
[2023-09-21] MEDS: FUROSEMIDE 10 MG/ML 4 ML VIAL IV SCH (09:00)
[2023-09-21 10:07] LABS: ALT 30 U/L (10-49); AST 30 U/L (14-35); Albumin 2.8 g/dL (3.8-4.9); Albumin/Globulin Ratio 1.27 Ratio (1.60-3.17); Alkaline Phosphatase 126 U/L (41-126); BUN/Creat Ratio 28.83 Ratio (12.00-20.00); Blood Urea Nitrogen 34.6 mg/dL (9.0-27.0); Chloride 103 mmol/L (96-109); Globulin 2.2 g/dL (1.6-3.3); Glucose 134 mg/dL (70-110); Potassium 4.6 mmol/L (3.5-5.5); Sodium 137 mmol/L (135-145); Total Bilirubin 0.4 mg/dL (0.3-1.2)
[2023-09-21 10:19] LABS: HCT 23.9 % (39.6-50.0); HGB 7.2 g/dL (13.0-17.0); Immature Platelet Fraction 2.2 % (1.1-6.1); MCH 35.1 pg (27.0-32.0); MCHC 30.1 g/dL (32.0-37.0); MCV 116.6 FL (80.0-97.0); Mean Platelet Volume 9.1 FL (9.5-12.2); NRBC Per 100 WBC 0 X 10*3/uL (0.00-0.01); Platelet Count 87 X 10*3/uL (140-440); RBC 2.05 X 10*6/uL (4.40-5.60); RDW 18.8 % (11.5-14.5); WBC 3.11 X 10*3/uL (4.50-10.00)
[2023-09-21 11:59] LABS: Glucose,Whole Blood 128 mg/dL (70-110)
--- NOTE | 2023-09-21 13:13 | P.DS ---
Providers Date of admission: 09/19/23 14:03 Expected date of discharge: 09/21/23 Attending physician: Rian Quijano MD Primary care physician: Megan Langford DO Hospital Course: Discharge diagnoses; Fluids overload, with anasarca secondary to hepatorenal disease decpmpensted liver cirrhosis with moderate ascites, new diagnosis, decompensated Pancytopenia, chronic Chronic kidney disease, stage III Anemia of chronic disease Acute on chronic diastolic CHF with ejection fraction 50-55% Mitral regurgitation COPD with no exacerbation history of [place] disease Hospital course; patient is 63-year-old gentleman past medical history significant for type II DM, hypertension, hyperlipidemia, anxiety, alcohol abuse and COPD, Coronary artery disease with occluded right coronary artery subacute versus chronic Alcoholic Liver cirrhosis/ascites, Chronic kidney disease, Chronic anemia who presented to the ER for worsening shortness of breath. Patient has been admitted to the hospital with similar complaints couple of weeks ago at which time patient had paracentesis done and was discharged back to residential. Patient stated that for last few days she has been noticing increasing shortness of breath. Shortness of breath was present on rest as well as exertion. Patient denies any chest pain. Patient also complaining of abdominal distention. Patient also has swelling of lower extremities. Denies any complaint of orthopnea or PND. There was no complain of fever or chills. Patient had blood work done outpatient that showed patient to a hemoglobin of 6.7, denies any blood in the stools. Because of this worsening shortness of breath, patient was brought to the ER Initial lab work done in the ER showed WBC 2.8, hemoglobin 7.1, platelet count 101 sodium 131, potassium 4.6, BUN 37, creatinine 1.09, glucose 193, calcium 7.8, alk phos 149, proBNP 2700 EKG done in the ER showed heart rate of 71, no ST segment elevation or depression seen, no T-wave inversions seen. Chest x-ray done in the ER showed chronic pleural based calcifications in the right and similar interstitial densities, right greater than left. Some mild patchy opacity at the right base is slightly increased and could her present atelectases on an early infiltrate Patient admitted to internal medicine service 09/20. Patient seen and examined. Still has abdominal distention. Still has swelling of lower extremities. IR scheduled for paracentesis 12/30. Patient seen and examined. Patient underwent paracentesis yesterday with removal of 5.3 L of fluid. Currently patient is doing much better. Abdominal distention has improved. Patient being discharged back to residential. PHYSICAL EXAMINATION: GENERAL: The patient is alert and oriented x3, not in any acute distress. Chronically ill-looking HEENT: Pupils are round and equally reacting to light. EOMI. No scleral icterus. No conjunctival pallor. Normocephalic, atraumatic. No pharyngeal erythema. No thyromegaly. CARDIOVASCULAR: S1 and S2 present. No murmurs, rubs, or gallops. PULMONARY: Chest is clear to auscultation, no wheezing or crackles. ABDOMEN: Soft, normoactive bowel sounds. No palpable organomegaly. Fluid thrill positive MUSCULOSKELETAL: No joint swelling or deformity. EXTREMITIES: 1+ pitting edema of lower extremities bilaterally NEUROLOGICAL: Gross neurological examination did not reveal any focal deficits. SKIN: No rashes. Dictation was produced using [employer] dictation software. please excuse any grammatical, word or spelling errors. Patient Condition at Discharge: Stable Plan - Discharge Summary Discharge Rx Participant: No New Discharge Prescriptions: Continue Cholecalciferol [Vitamin D3 (25 Mcg = 1000 Iu)] 25 mcg PO DAILY Hydrocortisone [Cortef] 10 mg PO HS tab Potassium Chloride ER [K-Dur 20] 40 meq PO BID tab Albuterol Sulfate/Budesonide [Airsupra 90-80 Mcg Inhaler] 2 puff INHALATION RT-QID PRN PRN Reason: Shortness Of Breath Darbepoetin Jesu [Aranesp] 40 mcg SQ TH Phenazopyridine [Pyridium] 100 mg PO TID@0700,1300,1900 Insulin Lispro [humaLOG Kwikpen] See Protocol SQ ACHS ALPRAZolam [Xanax] 0.25 mg PO Q6HR PRN 3 Days #12 tab PRN Reason: Anxiety Albuterol Inhaler [Ventolin Hfa Inhaler] 2 puff INHALATION RT-Q6H PRN PRN Reason: Shortness Of Breath Thiamine [Vitamin B-1] 100 mg PO DAILY #30 tab Hydrocortisone [Cortef] 20 mg PO DAILY tab Ipratropium-Albuterol Nebulize [Duoneb 0.5 mg-3 mg/3 ml Soln] 3 ml INHALATION RT-Q4H PRN each PRN Reason: Shortness Of Breath Or Wheezing Folic Acid 1 mg PO DAILY tab Famotidine [Pepcid] 20 mg PO DAILY tab Budesonide-Formot 160-4.5 Mcg [Symbicort 160-4.5 Mcg Inhaler] 2 puff INHALATION RT-BID each Midodrine HCl [ProAmatine] 10 mg PO TID@0700,1300,1900 Bumetanide [BUMEX] 1 mg PO DAILY Insulin Glargine,Hum.rec.anlog [Lantus Solostar Pen] 20 units SQ HS Tamsulosin [Flomax] 0.4 mg PO HS Calcium Carbonate [Tums] 1,000 mg PO TID PRN PRN Reason: Heartburn Ipratropium-Albuterol Nebulize [Duoneb 0.5 mg-3 mg/3 ml Soln] 3 ml INHALATION RT-TID@,, Metoprolol Tartrate [Lopressor] 12.5 mg PO BID Aspirin EC [Ecotrin Low Dose] 81 mg PO DAILY Dapagliflozin Propanediol [Farxiga] 10 mg PO DAILY@0700 Spironolactone [Aldactone] 50 mg PO DAILY HYDROcodone/APAP 7.5-325MG [[place] 7.5-325] 1 tab PO Q6HR PRN 3 Days #12 tab PRN Reason: pain Discharge Medication List Albuterol Inhaler [Ventolin Hfa Inhaler] 2 puff INHALATION RT-Q6H PRN 02/03/23 [History] Cholecalciferol [Vitamin D3 (25 Mcg = 1000 Iu)] 25 mcg PO DAILY 02/03/23 [History] Thiamine [Vitamin B-1] 100 mg PO DAILY #30 tab 02/06/23 [Rx] Budesonide-Formot 160-4.5 Mcg [Symbicort 160-4.5 Mcg Inhaler] 2 puff INHALATION RT-BID each 07/24/23 [Rx] Famotidine [Pepcid] 20 mg PO DAILY tab 07/24/23 [Rx] Folic Acid 1 mg PO DAILY tab 07/24/23 [Rx] Hydrocortisone [Cortef] 10 mg PO HS tab 07/24/23 [Rx] Hydrocortisone [Cortef] 20 mg PO DAILY tab 07/24/23 [Rx] Ipratropium-Albuterol Nebulize [Duoneb 0.5 mg-3 mg/3 ml Soln] 3 ml INHALATION RT-Q4H PRN each 07/24/23 [Rx] Potassium Chloride ER [K-Dur 20] 40 meq PO BID tab 07/24/23 [Rx] Albuterol Sulfate/Budesonide [Airsupra 90-80 Mcg Inhaler] 2 puff INHALATION RT- QID PRN 07/25/23 [History] Darbepoetin Jesu [Aranesp] 40 mcg SQ TH 07/25/23 [History] Midodrine HCl [ProAmatine] 10 mg PO TID@0700,1300,1900 07/25/23 [History] Bumetanide [BUMEX] 1 mg PO DAILY 08/13/23 [History] Insulin Glargine,Hum.rec.anlog [Lantus Solostar Pen] 20 units SQ HS 08/13/23 [History] Phenazopyridine [Pyridium] 100 mg PO TID@0700,1300,1900 08/13/23 [History] Tamsulosin [Flomax] 0.4 mg PO HS 08/13/23 [History] Calcium Carbonate [Tums] 1,000 mg PO TID PRN 09/03/23 [History] Insulin Lispro [humaLOG Kwikpen] See Protocol SQ ACHS 09/03/23 [History] Ipratropium-Albuterol Nebulize [Duoneb 0.5 mg-3 mg/3 ml Soln] 3 ml INHALATION RT-TID@05,13,21 09/03/23 [History] Metoprolol Tartrate [Lopressor] 12.5 mg PO BID 09/03/23 [History] Aspirin EC [Ecotrin Low Dose] 81 mg PO DAILY 09/19/23 [History] Dapagliflozin Propanediol [Farxiga] 10 mg PO DAILY@0700 09/19/23 [History] Spironolactone [Aldactone] 50 mg PO DAILY 09/19/23 [History] ALPRAZolam [Xanax] 0.25 mg PO Q6HR PRN 3 Days #12 tab 09/21/23 [Rx] HYDROcodone/APAP 7.5-325MG [[place] 7.5-325] 1 tab PO Q6HR PRN 3 Days #12 tab 09/21/23 [Rx] Follow up Appointment(s)/Referral(s): Megan Langford DO [Primary Care Provider] - 1-2 days Activity/Diet/Wound Care/Special Instructions: parenthesis appt at [facility] on 10-04-23 at 9 am Discharge Disposition: TRANSFER TO SNF/ECF
--- NOTE | 2023-09-21 14:41 | P.PN ---
Subjective Progress Note Date: 09/21/23 patient is 63-year-old gentleman past medical history significant for type II DM, hypertension, hyperlipidemia, anxiety, alcohol abuse and COPD, Coronary artery disease with occluded right coronary artery subacute versus chronic Alcoholic Liver cirrhosis/ascites, Chronic kidney disease, Chronic anemia who presented to the ER for worsening shortness of breath. Patient has been admitted to the hospital with similar complaints couple of weeks ago at which time patient had paracentesis done and was discharged back to skilled nursing. Patient stated that for last few days she has been noticing increasing shortness of breath. Shortness of breath was present on rest as well as exertion. Patient denies any chest pain. Patient also complaining of abdominal distention. Patient also has swelling of lower extremities. Denies any complaint of orthopnea or PND. There was no complain of fever or chills. Patient had blood work done outpatient that showed patient to a hemoglobin of 6.7, denies any blood in the stools. Because of this worsening shortness of breath, patient was brought to the ER Initial lab work done in the ER showed WBC 2.8, hemoglobin 7.1, platelet count 101 sodium 131, potassium 4.6, BUN 37, creatinine 1.09, glucose 193, calcium 7.8, alk phos 149, proBNP 2700 EKG done in the ER showed heart rate of 71, no ST segment elevation or depression seen, no T-wave inversions seen. Chest x-ray done in the ER showed chronic pleural based calcifications in the right and similar interstitial densities, right greater than left. Some mild patchy opacity at the right base is slightly increased and could her present atelectases on an early infiltrate Patient admitted to internal medicine service 09/20. Patient seen and examined. Still has abdominal distention. Still has swelling of lower extremities. IR scheduled for paracentesis 09/21. Patient seen and examined. Patient underwent paracentesis yesterday. States he feels much better. Abdominal distention is improved , swelling of legs is also improved. REVIEW OF SYSTEMS: CONSTITUTIONAL: No fever, no malaise,. CARDIOVASCULAR: No chest pain, no palpitations, no syncope. PULMONARY: No shortness of breath, no cough, GASTROINTESTINAL: No diarrhea, no nausea, no vomiting,. NEUROLOGICAL: No headaches, no weakness, PHYSICAL EXAMINATION: GENERAL: The patient is alert and oriented x3, not in any acute distress. Chronically ill-looking HEENT: Pupils are round and equally reacting to light. EOMI. No scleral icterus. No conjunctival pallor. Normocephalic, atraumatic. No pharyngeal erythema. No thyromegaly. CARDIOVASCULAR: S1 and S2 present. No murmurs, rubs, or gallops. PULMONARY: Chest is clear to auscultation, no wheezing or crackles. ABDOMEN: Distended, normoactive bowel sounds. No palpable organomegaly. Fluid thrill positive MUSCULOSKELETAL: No joint swelling or deformity. EXTREMITIES: 2+ pitting edema of lower extremities bilaterally NEUROLOGICAL: Gross neurological examination did not reveal any focal deficits. SKIN: No rashes. Assessment and plan Fluids overload, with anasarca secondary to hepatorenal disease decpmpensted liver cirrhosis with moderate ascites, new diagnosis, decompensated Pancytopenia, chronic Chronic kidney disease, stage III Anemia of chronic disease Acute on chronic diastolic CHF with ejection fraction 50-55% Mitral regurgitation COPD with no exacerbation history of [place] disease Monitor vital signs Monitor CBC Monitor CMP Continue telemetry monitoring Strict I's and O's, daily weights, continue IV Lasix 40 mg twice a day Continue breathing treatments Status post-paracentesis with removal of 5.3 L of fluid Monitor blood sugar levels, continue sliding scale insulin, resume Lantus. Patient is not on a beta izaiah, Eduardo, ARB due to hypotension Patient is not on statin due to cirrhosis In regards to acute anemia,continue to monitor H&H transfuse for hemodynamic instability or hemoglobin less than 7 In regards to diabetes mellitus, continue current insulin regimen Labs and medication were reviewed.. Continue same treatment. Continue with symptomatic treatment. Resume home medication. Monitor labs and vitals. DVT and GI prophylaxis. Further recommendations as per clinical course of the patient Dictation was produced using [employer] dictation software. please excuse any grammatical, word or spelling errors. Objective - Vital Signs Vital signs: Vital Signs Temp 97.6 F 09/21/23 06:58 Pulse 82 09/21/23 07:59 Resp 18 09/21/23 06:58 BP 93/44 09/21/23 06:58 Pulse Ox 97 09/21/23 07:46 FiO2 Intake & Output 09/20/23 09/21/23 09/21/23 18:59 06:59 18:59 Intake Total 175 Output Total 200 Balance -25 Intake: Oral 175 Output: Urine 200 Other: Voiding Method Toilet Toilet Urinal Urinal # Voids 1 3 2 # Bowel Movements 1 - Labs CBC & Chem 7: 09/21/23 04:39 09/21/23 04:39 Labs: Abnormal Lab Results - Last 24 Hours (Table) 09/20/23 09/20/23 09/20/23 Range/Units 10:53 10:53 11:47 WBC 2.7 L (3.8-10.6) k/uL RBC 1.95 L (4.30-5.90) m/uL Hgb 7.0 L (13.0-17.5) gm/dL Hct 22.7 L (39.0-53.0) % MCV 116.8 H (80.0-100.0) fL MCH 36.1 H (25.0-35.0) pg MCHC 30.9 L (31.0-37.0) g/dL RDW 18.4 H (11.5-15.5) % Plt Count 73 L (150-450) k/uL MPV (9.5-12.2) FL Macrocytosis Marked A Sodium 134 L (137-145) mmol/L BUN 39 H (9-20) mg/dL Creatinine 1.26 H (0.66-1.25) mg/dL BUN/Creatinine Ratio (12.00-20.00) Ratio Glucose 223 H (74-99) mg/dL POC Glucose (mg/dL) 233 H (70-110) mg/dL Calcium 7.9 L (8.4-10.2) mg/dL Total Protein 5.5 L (6.3-8.2) g/dL Albumin 2.8 L (3.5-5.0) g/dL Albumin/Globulin Ratio (1.60-3.17) Ratio 09/20/23 09/20/23 09/20/23 Range/Units 16:02 17:33 20:34 WBC (3.8-10.6) k/uL RBC (4.30-5.90) m/uL Hgb (13.0-17.5) gm/dL Hct (39.0-53.0) % MCV (80.0-100.0) fL MCH (25.0-35.0) pg MCHC (31.0-37.0) g/dL RDW (11.5-15.5) % Plt Count (150-450) k/uL MPV (9.5-12.2) FL Macrocytosis Sodium (137-145) mmol/L BUN (9-20) mg/dL Creatinine (0.66-1.25) mg/dL BUN/Creatinine Ratio (12.00-20.00) Ratio Glucose (74-99) mg/dL POC Glucose (mg/dL) 211 H 200 H 174 H (70-110) mg/dL Calcium (8.4-10.2) mg/dL Total Protein (6.3-8.2) g/dL Albumin (3.5-5.0) g/dL Albumin/Globulin Ratio (1.60-3.17) Ratio 09/21/23 09/21/23 Range/Units 04:39 04:39 WBC 3.11 L (3.8-10.6) k/uL RBC 2.05 L (4.30-5.90) m/uL Hgb 7.2 L (13.0-17.5) gm/dL Hct 23.9 L (39.0-53.0) % MCV 116.6 H (80.0-100.0) fL MCH 35.1 H (25.0-35.0) pg MCHC 30.1 L (31.0-37.0) g/dL RDW 18.8 H (11.5-15.5) % Plt Count 87 L (150-450) k/uL MPV 9.1 L (9.5-12.2) FL Macrocytosis Sodium (137-145) mmol/L BUN 34.6 H (9-20) mg/dL Creatinine (0.66-1.25) mg/dL BUN/Creatinine Ratio 28.83 H (12.00-20.00) Ratio Glucose 134 H (74-99) mg/dL POC Glucose (mg/dL) (70-110) mg/dL Calcium 8.0 L (8.4-10.2) mg/dL Total Protein 5.0 L (6.3-8.2) g/dL Albumin 2.8 L (3.5-5.0) g/dL Albumin/Globulin Ratio 1.27 L (1.60-3.17) Ratio
[2023-09-21 16:56] LABS: Glucose,Whole Blood 185 mg/dL (70-110)
[2023-09-21] MEDS: HYDROcodone/APAP 5-325MG 1 EACH TAB PO PRN (17:46)
[2023-09-21 20:32] LABS: Glucose,Whole Blood 191 mg/dL (70-110)
[2023-09-21] MEDS: HYDROCORTISONE 10 MG TAB PO SCH (20:32)
[2023-09-21] MEDS: TAMSULOSIN 0.4 MG CAP.ER.24H PO SCH (20:32)
[2023-09-21] MEDS: FUROSEMIDE 40 MG TAB PO SCH (20:32)
[2023-09-21] MEDS: ALPRAZolam 0.25 MG TAB PO PRN (20:32)
[2023-09-21] MEDS: INSULIN DETEMIR (LEVEMIR) 100 UNIT/ML SYR SQ SCH (21:05)
[2023-09-22] MEDS: IPRATROPIUM-ALBUTEROL 3 ML NEB INHALATION SCH ×4 (00:55→11:15)
[2023-09-22] MEDS: SYMBICORT 160-4.5 MCG INHALER INHALATION SCH (07:11)
[2023-09-22 07:13] LABS: Glucose,Whole Blood 63 mg/dL (70-110)
[2023-09-22] MEDS: INSULIN ASPART (NovoLOG) 100 UNIT/ML VIAL SQ SCH ×2 (07:24→12:28)
[2023-09-22] MEDS: HYDROcodone/APAP 5-325MG 1 EACH TAB PO PRN (07:42)
[2023-09-22 07:54] LABS: Glucose,Whole Blood 68 mg/dL (70-110)
[2023-09-22 08:07] LABS: Glucose,Whole Blood 75 mg/dL (70-110)
[2023-09-22] MEDS: DAPAGLIFLOZIN PROPANEDIOL 10 MG TABLET PO SCH (08:45)
[2023-09-22] MEDS: ASPIRIN 81 MG PO SCH (08:45)
[2023-09-22] MEDS: FUROSEMIDE 40 MG TAB PO SCH (08:45)
[2023-09-22] MEDS: MIDODRINE 5 MG TAB PO SCH ×2 (08:46→12:28)
[2023-09-22] MEDS: THIAMINE 100 MG TAB PO SCH (08:46)
[2023-09-22] MEDS: HYDROCORTISONE 20 MG TAB PO SCH (08:46)
[2023-09-22] MEDS: CHOLECALCIFEROL 25 MCG (1000 IU) TABLET PO SCH (08:46)
[2023-09-22 12:12] LABS: Glucose,Whole Blood 159 mg/dL (70-110)
[2023-09-22 12:51] VITALS: BP 102/66; PULSE 75; RESP 18; TEMP 98
--- NOTE | 2023-09-22 13:04 | P.PN ---
Subjective Progress Note Date: 09/22/23 patient is 63-year-old gentleman past medical history significant for type II DM, hypertension, hyperlipidemia, anxiety, alcohol abuse and COPD, Coronary artery disease with occluded right coronary artery subacute versus chronic Alcoholic Liver cirrhosis/ascites, Chronic kidney disease, Chronic anemia who presented to the ER for worsening shortness of breath. Patient has been admitted to the hospital with similar complaints couple of weeks ago at which time patient had paracentesis done and was discharged back to [facility]. Patient stated that for last few days she has been noticing increasing shortness of breath. Shortness of breath was present on rest as well as exertion. Patient denies any chest pain. Patient also complaining of abdominal distention. Patient also has swelling of lower extremities. Denies any complaint of orthopnea or PND. There was no complain of fever or chills. Patient had blood work done outpatient that showed patient to a hemoglobin of 6.7, denies any blood in the stools. Because of this worsening shortness of breath, patient was brought to the ER Initial lab work done in the ER showed WBC 2.8, hemoglobin 7.1, platelet count 101 sodium 131, potassium 4.6, BUN 37, creatinine 1.09, glucose 193, calcium 7.8, alk phos 149, proBNP 2700 EKG done in the ER showed heart rate of 71, no ST segment elevation or depression seen, no T-wave inversions seen. Chest x-ray done in the ER showed chronic pleural based calcifications in the right and similar interstitial densities, right greater than left. Some mild patchy opacity at the right base is slightly increased and could her present atelectases on an early infiltrate Patient admitted to internal medicine service 09/20. Patient seen and examined. Still has abdominal distention. Still has swelling of lower extremities. IR scheduled for paracentesis 09/21. Patient seen and examined. Patient underwent paracentesis yesterday. States he feels much better. Abdominal distention is improved , swelling of legs is also improved. 09/22. Patient seen and examined. Sitting upright in the bed. States he feels better. Patient wants to go home. Abdominal distention has improved. Swelling of lower extremities also improved REVIEW OF SYSTEMS: CONSTITUTIONAL: No fever, no malaise,. CARDIOVASCULAR: No chest pain, no palpitations, no syncope. PULMONARY: No shortness of breath, no cough, GASTROINTESTINAL: No diarrhea, no nausea, no vomiting,. NEUROLOGICAL: No headaches, no weakness, PHYSICAL EXAMINATION: GENERAL: The patient is alert and oriented x3, not in any acute distress. Chronically ill-looking HEENT: Pupils are round and equally reacting to light. EOMI. No scleral icterus. No conjunctival pallor. Normocephalic, atraumatic. No pharyngeal erythema. No thyromegaly. CARDIOVASCULAR: S1 and S2 present. No murmurs, rubs, or gallops. PULMONARY: Chest is clear to auscultation, no wheezing or crackles. ABDOMEN: Soft, normoactive bowel sounds. No palpable organomegaly MUSCULOSKELETAL: No joint swelling or deformity. EXTREMITIES: 1+ pitting edema of lower extremities bilaterally NEUROLOGICAL: Gross neurological examination did not reveal any focal deficits. SKIN: No rashes. Assessment and plan Fluids overload, with anasarca secondary to hepatorenal disease decpmpensted liver cirrhosis with moderate ascites, new diagnosis, decompensated Pancytopenia, chronic Chronic kidney disease, stage III Anemia of chronic disease Acute on chronic diastolic CHF with ejection fraction 50-55% Mitral regurgitation COPD with no exacerbation history of [place] disease Monitor vital signs Monitor CBC Monitor CMP Continue telemetry monitoring Strict I's and O's, daily weights, continue IV Lasix 40 mg twice a day Continue breathing treatments Status post-paracentesis with removal of 5.3 L of fluid Monitor blood sugar levels, continue sliding scale insulin, resume Lantus. Patient is not on a beta izaiah, Eduardo, ARB due to hypotension Patient is not on statin due to cirrhosis In regards to acute anemia,continue to monitor H&H transfuse for hemodynamic in stability or hemoglobin less than 7 In regards to diabetes mellitus, continue current insulin regimen Labs and medication were reviewed.. Continue same treatment. Continue with symptomatic treatment. Resume home medication. Monitor labs and vitals. DVT and GI prophylaxis. Further recommendations as per clinical course of the patient Dictation was produced using [employer] dictation software. please excuse any grammatical, word or spelling errors. Objective - Vital Signs Vital signs: Vital Signs Temp 98 F 09/22/23 12:12 Pulse 75 09/22/23 12:12 Resp 18 09/22/23 12:12 BP 102/66 09/22/23 12:12 Pulse Ox 92 L 09/22/23 12:12 FiO2 Intake & Output 09/21/23 09/22/23 09/22/23 18:59 06:59 18:59 Intake Total 240 Output Total 600 Balance -360 Intake: Oral 240 Output: Urine 600 Other: Voiding Method Toilet Toilet Toilet Urinal Urinal Urinal Diaper # Voids 3 2 # Bowel Movements 1 - Labs CBC & Chem 7: 09/21/23 04:39 09/21/23 04:39 Labs: Abnormal Lab Results - Last 24 Hours (Table) 09/21/23 09/21/23 09/22/23 Range/Units 16:55 20:29 07:12 POC Glucose (mg/dL) 185 H 191 H 63 L (70-110) mg/dL 09/22/23 09/22/23 Range/Units 07:43 12:11 POC Glucose (mg/dL) 68 L 159 H (70-110) mg/dL
--- NOTE | 2023-09-22 13:12 | P.DS ---
Providers Date of admission: 09/19/23 14:03 Expected date of discharge: 09/22/23 Attending physician: Rian Quijano MD Primary care physician: Megan Langford DO Hospital Course: Discharge diagnoses; Fluids overload, with anasarca secondary to hepatorenal disease decpmpensted liver cirrhosis with moderate ascites, new diagnosis, decompensated Pancytopenia, chronic Chronic kidney disease, stage III Anemia of chronic disease Acute on chronic diastolic CHF with ejection fraction 50-55% Mitral regurgitation COPD with no exacerbation history of [place] disease Hospital course; patient is 63-year-old gentleman past medical history significant for type II DM, hypertension, hyperlipidemia, anxiety, alcohol abuse and COPD, Coronary artery disease with occluded right coronary artery subacute versus chronic Alcoholic Liver cirrhosis/ascites, Chronic kidney disease, Chronic anemia who presented to the ER for worsening shortness of breath. Patient has been admitted to the hospital with similar complaints couple of weeks ago at which time patient had paracentesis done and was discharged back to [facility]. Patient stated that for last few days she has been noticing increasing shortness of breath. Shortness of breath was present on rest as well as exertion. Patient denies any chest pain. Patient also complaining of abdominal distention. Patient also has swelling of lower extremities. Denies any complaint of orthopnea or PND. There was no complain of fever or chills. Patient had blood work done outpatient that showed patient to a hemoglobin of 6.7, denies any blood in the stools. Because of this worsening shortness of breath, patient was brought to the ER Initial lab work done in the ER showed WBC 2.8, hemoglobin 7.1, platelet count 101 sodium 131, potassium 4.6, BUN 37, creatinine 1.09, glucose 193, calcium 7.8, alk phos 149, proBNP 2700 EKG done in the ER showed heart rate of 71, no ST segment elevation or depression seen, no T-wave inversions seen. Chest x-ray done in the ER showed chronic pleural based calcifications in the right and similar interstitial densities, right greater than left. Some mild patchy opacity at the right base is slightly increased and could her present atelectases on an early infiltrate Patient admitted to internal medicine service 09/20. Patient seen and examined. Still has abdominal distention. Still has swelling of lower extremities. IR scheduled for paracentesis 09/21. Patient seen and examined. Patient underwent paracentesis yesterday with removal of 5.3 L of fluid. Currently patient is doing much better. Abdominal distention has improved. Patient being discharged back to [facility]. 09/22. Patient could not be discharged yesterday because of nonavailability of transportation, being discharged today in stable condition PHYSICAL EXAMINATION: GENERAL: The patient is alert and oriented x3, not in any acute distress. Chronically ill-looking HEENT: Pupils are round and equally reacting to light. EOMI. No scleral icterus. No conjunctival pallor. Normocephalic, atraumatic. No pharyngeal erythema. No thyromegaly. CARDIOVASCULAR: S1 and S2 present. No murmurs, rubs, or gallops. PULMONARY: Chest is clear to auscultation, no wheezing or crackles. ABDOMEN: Soft, normoactive bowel sounds. No palpable organomegaly. Fluid thrill positive MUSCULOSKELETAL: No joint swelling or deformity. EXTREMITIES: 1+ pitting edema of lower extremities bilaterally NEUROLOGICAL: Gross neurological examination did not reveal any focal deficits. SKIN: No rashes. Patient Condition at Discharge: Stable Plan - Discharge Summary Discharge Rx Participant: No New Discharge Prescriptions: Continue Cholecalciferol [Vitamin D3 (25 Mcg = 1000 Iu)] 25 mcg PO DAILY Hydrocortisone [Cortef] 10 mg PO HS tab Potassium Chloride ER [K-Dur 20] 40 meq PO BID tab Albuterol Sulfate/Budesonide [Airsupra 90-80 Mcg Inhaler] 2 puff INHALATION RT-QID PRN PRN Reason: Shortness Of Breath Darbepoetin Jesu [Aranesp] 40 mcg SQ TH Phenazopyridine [Pyridium] 100 mg PO TID@0700,1300,1900 Insulin Lispro [humaLOG Kwikpen] See Protocol SQ ACHS ALPRAZolam [Xanax] 0.25 mg PO Q6HR PRN 3 Days #12 tab PRN Reason: Anxiety Albuterol Inhaler [Ventolin Hfa Inhaler] 2 puff INHALATION RT-Q6H PRN PRN Reason: Shortness Of Breath Thiamine [Vitamin B-1] 100 mg PO DAILY #30 tab Hydrocortisone [Cortef] 20 mg PO DAILY tab Ipratropium-Albuterol Nebulize [Duoneb 0.5 mg-3 mg/3 ml Soln] 3 ml INHALATION RT-Q4H PRN each PRN Reason: Shortness Of Breath Or Wheezing Folic Acid 1 mg PO DAILY tab Famotidine [Pepcid] 20 mg PO DAILY tab Budesonide-Formot 160-4.5 Mcg [Symbicort 160-4.5 Mcg Inhaler] 2 puff INHALATION RT-BID each Midodrine HCl [ProAmatine] 10 mg PO TID@0700,1300,1900 Bumetanide [BUMEX] 1 mg PO DAILY Insulin Glargine,Hum.rec.anlog [Lantus Solostar Pen] 20 units SQ HS Tamsulosin [Flomax] 0.4 mg PO HS Calcium Carbonate [Tums] 1,000 mg PO TID PRN PRN Reason: Heartburn Ipratropium-Albuterol Nebulize [Duoneb 0.5 mg-3 mg/3 ml Soln] 3 ml INHALATION RT-TID@,, Metoprolol Tartrate [Lopressor] 12.5 mg PO BID Aspirin EC [Ecotrin Low Dose] 81 mg PO DAILY Dapagliflozin Propanediol [Farxiga] 10 mg PO DAILY@0700 Spironolactone [Aldactone] 50 mg PO DAILY HYDROcodone/APAP 7.5-325MG [[place] 7.5-325] 1 tab PO Q6HR PRN 3 Days #12 tab PRN Reason: pain Discharge Medication List Albuterol Inhaler [Ventolin Hfa Inhaler] 2 puff INHALATION RT-Q6H PRN 02/03/23 [History] Cholecalciferol [Vitamin D3 (25 Mcg = 1000 Iu)] 25 mcg PO DAILY 02/03/23 [History] Thiamine [Vitamin B-1] 100 mg PO DAILY #30 tab 02/06/23 [Rx] Budesonide-Formot 160-4.5 Mcg [Symbicort 160-4.5 Mcg Inhaler] 2 puff INHALATION RT-BID each 07/24/23 [Rx] Famotidine [Pepcid] 20 mg PO DAILY tab 07/24/23 [Rx] Folic Acid 1 mg PO DAILY tab 07/24/23 [Rx] Hydrocortisone [Cortef] 10 mg PO HS tab 07/24/23 [Rx] Hydrocortisone [Cortef] 20 mg PO DAILY tab 07/24/23 [Rx] Ipratropium-Albuterol Nebulize [Duoneb 0.5 mg-3 mg/3 ml Soln] 3 ml INHALATION RT-Q4H PRN each 07/24/23 [Rx] Potassium Chloride ER [K-Dur 20] 40 meq PO BID tab 07/24/23 [Rx] Albuterol Sulfate/Budesonide [Airsupra 90-80 Mcg Inhaler] 2 puff INHALATION RT- QID PRN 07/25/23 [History] Darbepoetin Jesu [Aranesp] 40 mcg SQ TH 07/25/23 [History] Midodrine HCl [ProAmatine] 10 mg PO TID@0700,1300,1900 07/25/23 [History] Bumetanide [BUMEX] 1 mg PO DAILY 08/13/23 [History] Insulin Glargine,Hum.rec.anlog [Lantus Solostar Pen] 20 units SQ HS 08/13/23 [History] Phenazopyridine [Pyridium] 100 mg PO TID@0700,1300,1900 08/13/23 [History] Tamsulosin [Flomax] 0.4 mg PO HS 08/13/23 [History] Calcium Carbonate [Tums] 1,000 mg PO TID PRN 09/03/23 [History] Insulin Lispro [humaLOG Kwikpen] See Protocol SQ ACHS 09/03/23 [History] Ipratropium-Albuterol Nebulize [Duoneb 0.5 mg-3 mg/3 ml Soln] 3 ml INHALATION RT-TID@05,13,21 09/03/23 [History] Metoprolol Tartrate [Lopressor] 12.5 mg PO BID 09/03/23 [History] Aspirin EC [Ecotrin Low Dose] 81 mg PO DAILY 09/19/23 [History] Dapagliflozin Propanediol [Farxiga] 10 mg PO DAILY@0700 09/19/23 [History] Spironolactone [Aldactone] 50 mg PO DAILY 09/19/23 [History] ALPRAZolam [Xanax] 0.25 mg PO Q6HR PRN 3 Days #12 tab 09/21/23 [Rx] HYDROcodone/APAP 7.5-325MG [[place] 7.5-325] 1 tab PO Q6HR PRN 3 Days #12 tab 09/21/23 [Rx] Follow up Appointment(s)/Referral(s): Megan Langfrod DO [Primary Care Provider] - 1-2 days Activity/Diet/Wound Care/Special Instructions: parenthesis appt at [facility] on 10-04-23 at 9 am Discharge Disposition: TRANSFER TO SNF/ECF
--- NOTE | 2023-09-24 09:29 | US ---
EXAMINATION TYPE: US paracentesis abd w/image DATE OF EXAM: 09/20/2023 1:52 PM CLINICAL INDICATION:Male, 63 years old with history of ascites; COMPARISON: 09/10/2023. ATTENDING: Dr. Bolivar Farley PROCEDURE: Informed consent was obtained. The risks of the procedure were extensively explained incl uding risk of damage to surrounding bowel with perforation and need for additional procedures. Proced ure was performed in the ultrasound procedure suite. Ultrasound imaging of the abdomen demonstrate as citic fluid. An appropriate access site was localized to the right lower abdomen. Timeout was taken p er protocol. The skin was prepped and draped in the usual sterile fashion and then locally anesthetiz ed with 1% lidocaine. The peritoneal cavity was then accessed via a 5-Swedish one-step needle/cathete r. Approximately 5100 cc of clear straw-colored fluid was obtained. Postprocedural imaging of the a bdomen demonstrate a minimal amount of abdominal fluid. Patient tolerated procedure well without immediate complication. Hemostasis at the procedural site w as obtained with a sterile bandage placed. The patient was monitored in the holding area following th e procedure and was subsequently discharged in stable condition. IMPRESSION: Ultrasound guided paracentesis, with approximately 5100 cc of clear straw-colored fluid drained. No immediate complications were evident.
== END 2023-09-22 13:30 | DRG 291 ==
LOC: EC 11:56 → 5NMEDONC 14:03
PROVIDERS: ADMIT Internal Medicine; ATTEND Internal Medicine
PROC: 0W9G3ZZ Drainage of Peritoneal Cavity, Percutaneous Approach (ICD-10-PCS; principal; 2023-09-20)
DX: I13.0 Hypertensive heart and chronic kidney disease with heart failure and stage 1 through stage 4 chronic kidney disease, or unspecified chronic kidney disease (principal); I50.33 Acute on chronic diastolic (congestive) heart failure; K76.7 Hepatorenal syndrome; D61.818 Other pancytopenia; E27.1 Primary adrenocortical insufficiency; D63.1 Anemia in chronic kidney disease; E88.09 Other disorders of plasma-protein metabolism, not elsewhere classified; I95.9 Hypotension, unspecified; E11.22 Type 2 diabetes mellitus with diabetic chronic kidney disease; K70.31 Alcoholic cirrhosis of liver with ascites; N18.30 Chronic kidney disease, stage 3 unspecified; J44.9 Chronic obstructive pulmonary disease, unspecified; F10.20 Alcohol dependence, uncomplicated; Z79.4 Long term (current) use of insulin; E78.5 Hyperlipidemia, unspecified; I25.10 Atherosclerotic heart disease of native coronary artery without angina pectoris; I34.0 Nonrheumatic mitral (valve) insufficiency; F41.9 Anxiety disorder, unspecified; Z79.51 Long term (current) use of inhaled steroids; Z79.82 Long term (current) use of aspirin; Z79.84 Long term (current) use of oral hypoglycemic drugs; Z79.899 Other long term (current) drug therapy; Z87.891 Personal history of nicotine dependence
CPT/HCPCS: 36415; 49083; 71046; 76705; 80053; 83036; 83605; 83880; 84484; 85025; 85027; 85610; 85730; 86850; 86900; 86901; 93005; 94640; 94760; 96365; 96366; 96375; 99285

== ENCOUNTER 2023-09-26 01:07 | Emergency (ER) | payer MEDICARE, OTHER ==
[2023-09-26] MEDS ORDERED: LORazepam 2 MG/ML INJ IV PRN ×3 (01:21)
[2023-09-26] MEDS ORDERED: SODIUM CHLORIDE 0.9% 1,000 ML IV STA (01:21)
[2023-09-26 01:24] VITALS: RESP 18
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
[2023-09-26 01:33] LABS: Anisocytosis Slight; Basophils % (A) 0 %; Eosinophils % (A) 1 %; Hypochromasia Marked; Lymphocytes # (A) 0.7 k/uL (1.0-4.8); Lymphocytes % (A) 22 %; MCHC 31.6 g/dL (31.0-37.0); MCV 113.9 fL (80.0-100.0); Macrocytosis Marked; Mean Platelet Volume 9.5; Monocytes # (A) 0.1 k/uL (0-1.0); Monocytes % (A) 5 %; Neutrophils # (A) 2.2 k/uL (1.3-7.7); Neutrophils % (A) 69 %; Platelet Count 107 k/uL (150-450); RBC 1.28 m/uL (4.30-5.90); RDW 18.5 % (11.5-15.5); WBC 3.1 k/uL (3.8-10.6)
[2023-09-26 01:46] LABS: HGB 4.6 gm/dL (13.0-17.5); INR 0.9 (<1.2); Prothrombin Time 10.4 sec (10.0-12.5)
[2023-09-26 01:47] LABS: HCT 14.5 % (39.0-53.0)
[2023-09-26 02:10] LABS: ALT 38 U/L (4-49); AST 33 U/L (17-59); African American GFR (CKD) 84 (>60 ml/min/1.73 sqM); Albumin 2.9 g/dL (3.5-5.0); Alcohol <10 mg/dL; Alkaline Phosphatase 190 U/L (38-126); Blood Urea Nitrogen 35 mg/dL (9-20); Calcium 7.8 mg/dL (8.4-10.2); Carbon Dioxide 23 mmol/L (22-30); Chloride 100 mmol/L (98-107); Glucose 193 mg/dL (74-99); Lipase 20 U/L (23-300); Magnesium 2.1 mg/dL (1.6-2.3); Non-African American GFR(CKD) 73 (>60 ml/min/1.73 sqM); Phosphorus 3.7 mg/dL (2.5-4.5); Total Bilirubin 0.4 mg/dL (0.2-1.3)
[2023-09-26] MEDS ORDERED: IPRATROPIUM-ALBUTEROL 3 ML NEB INHALATION STA (02:23)
[2023-09-26 03:21] LABS: Anion Gap 10 mmol/L; Potassium 3.8 mmol/L (3.5-5.1); Sodium 133 mmol/L (137-145)
[2023-09-26 05:51] VITALS: TEMP 98
[2023-09-26 06:14] VITALS: BP 93/55; PULSE 82
--- NOTE | 2023-09-26 06:34 | XR ---
EXAM: XR Chest, 1 View CLINICAL HISTORY: ITS.REASON XR Reason: sob TECHNIQUE: Frontal view of the chest. COMPARISON: 09/19/23 FINDINGS: Lungs: Overall increased interstitial opacity in the right lung with blunting of the costophrenic angle which may reflect interstitial process and chronic pleural disease/effusion. Curvilinear densities projecting over the right upper lung which may reflect pleural-based calcification. As previously noted. Possibility of superimposed acute interstitial process difficult to exclude Pleural space: See above. Heart: Cardiovascular silhouette, within normal limits, accentuated by lordotic position and low lung volume. Mediastinum: Unremarkable. Normal mediastinal contour. Bones/joints: Unremarkable. No acute fracture. Tubes, lines and devices: Overlying chest leads obscure portion of the chest. IMPRESSION: 1. Low lung volume limit evaluation. 2. Stable appearance of the right lung which may partly reflect chronic pleural disease/calcification and asymmetric interstitial process. 3. Follow-up chest CT for better visualization as indicated.
[2023-09-26] MEDS ORDERED: MULTIVITAMINS, THERA 1 EACH TAB PO SCH (09:00)
[2023-09-26] MEDS ORDERED: FOLIC ACID 1 MG TAB PO SCH (09:00)
[2023-09-27] MEDS ORDERED: THIAMINE 100 MG TAB PO SCH (09:00)
== END 2023-09-26 06:12 | disposition other institution (70) ==
LOC: EC 01:07
DX: R18.8 Other ascites (principal); D64.9 Anemia, unspecified; F10.10 Alcohol abuse, uncomplicated; D61.818 Other pancytopenia; K92.2 Gastrointestinal hemorrhage, unspecified; I25.10 Atherosclerotic heart disease of native coronary artery without angina pectoris; J44.9 Chronic obstructive pulmonary disease, unspecified; E11.9 Type 2 diabetes mellitus without complications; Z87.891 Personal history of nicotine dependence; Z79.899 Other long term (current) drug therapy; Z79.4 Long term (current) use of insulin; Z79.84 Long term (current) use of oral hypoglycemic drugs; Z79.82 Long term (current) use of aspirin; Y90.0 Blood alcohol level of less than 20 mg/100 ml
CPT/HCPCS: 36415; 94640; 86900; 86901; 80053; 82140; 83605; 83690; 83735; 84100; 85025; 85610; 86850; 86920; 71045; 99291; 96365; 36430; P9016; G0480; J0696; 80320

== ENCOUNTER 2023-10-01 07:55 | Day surgery (SDC) | payer MEDICARE, OTHER ==
[2023-10-01 08:59] LABS: African American GFR (CKD) >90 (>60 ml/min/1.73 sqM); Glucose 197 mg/dL (74-99); Non-African American GFR(CKD) 79 (>60 ml/min/1.73 sqM)
[2023-10-01 09:04] LABS: Mean Platelet Volume 8.1
[2023-10-01 09:05] LABS: INR 1.1 (<1.2); Prothrombin Time 11.9 sec (10.0-12.5)
[2023-10-01 09:12] LABS: Platelet Count 79 k/uL (150-450)
[2023-10-01 09:23] VITALS: TEMP 98.4
[2023-10-01] MEDS: ALBUMIN HUMAN 25% 50 ML in EMPTY BAG 1 BAG IVPB SCH ×3 (09:58→10:53)
[2023-10-01 10:37] VITALS: BP 99/64; PULSE 84; RESP 20
--- NOTE | 2023-10-01 15:13 | US ---
EXAMINATION TYPE: US paracentesis abd w/image DATE OF EXAM: 10/01/2023 CLINICAL HISTORY: 63-year-old male referred for ultrasound-guided therapeutic paracentesis. K74.80 cirrhosis of liver The procedure was discussed with the patient. The risks, complications, benefits, and alternatives we re discussed and any questions were answered. Informed consent was obtained. The patient was placed s upine on the ultrasound table and prepped and draped in the usual sterile fashion. All elements of maximal barrier technique were utilized. Ultrasound was utilized to determine the precise skin entry site along the left lower quadrant/left f lank. A 5 [place] one-step catheter and trocar technique was utilized to access the ascites collection under direct ultrasound guidance. Approximately 5.9 liters of straw-colored fluid was removed. The patient was stable throughout the pr ocedure and remained stable upon discharge from Department of Radiology. IMPRESSION: Successful therapeutic paracentesis under ultrasound guidance. 5.9 L of fluid removed.
== END 2023-10-01 10:56 | disposition home health service (06) ==
LOC: RADPROMAIN 07:55
PROVIDERS: ATTEND Internal Medicine
DX: R18.8 Other ascites (principal)
CPT/HCPCS: 82565; 82947; 85049; 85610; 36415; 49083; P9047

== ENCOUNTER 2023-10-07 12:45 | Day surgery (SDC) | payer MEDICARE, OTHER ==
[2023-10-07 13:23] LABS: Mean Platelet Volume 9.5; Platelet Count 84 k/uL (150-450)
[2023-10-07 13:31] LABS: INR 1.1 (<1.2); Prothrombin Time 11.4 sec (10.0-12.5)
[2023-10-07 13:32] LABS: African American GFR (CKD) 80 (>60 ml/min/1.73 sqM); Glucose 160 mg/dL (74-99); Non-African American GFR(CKD) 69 (>60 ml/min/1.73 sqM)
[2023-10-07 14:00] VITALS: RESP 16; TEMP 97.8
[2023-10-07 14:25] VITALS: PULSE 70
--- NOTE | 2023-10-07 14:51 | US ---
Ultrasound-guided paracentesis. DATE OF EXAM: 10/07/2023 CLINICAL HISTORY: Ascites The procedure was discussed with the patient. The risks, complications, benefits, and alternatives we re discussed and any questions were answered. Informed consent was obtained. The patient was placed s upine on the ultrasound table and prepped and draped in the usual sterile fashion. All elements of maximal barrier technique were utilized. Under ultrasound guidance, access into the right lower quadrant was obtained, via the paracentesis catheter system and direct ultrasound guidanc e. Approximately 3.8 liters of straw-colored fluid was removed. The patient was stable throughout the pr ocedure and remained stable upon discharge from Department of Radiology. IMPRESSION: Successful paracentesis under ultrasound guidance.
[2023-10-07] MEDS: ALBUMIN HUMAN 25% 50 ML in EMPTY BAG 1 BAG IVPB SCH ×2 (15:01→15:02)
[2023-10-07 15:14] VITALS: BP 121/73
== END 2023-10-07 14:56 | disposition home or self-care (01) ==
LOC: RADPROMAIN 12:45
PROVIDERS: ATTEND Internal Medicine
DX: R18.8 Other ascites (principal)
CPT/HCPCS: 36415; 49083; 82565; 82947; 85049; 85610

== ENCOUNTER 2023-10-15 12:52 | Day surgery (SDC) | payer MEDICARE, OTHER ==
[2023-10-15 13:21] VITALS: RESP 16; TEMP 97.4
[2023-10-15 13:57] LABS: Mean Platelet Volume 8.8
[2023-10-15 14:01] LABS: Prothrombin Time 10.6 sec (10.0-12.5)
[2023-10-15 14:07] LABS: Platelet Count 80 k/uL (150-450)
[2023-10-15 14:24] LABS: African American GFR (CKD) 37 (>60 ml/min/1.73 sqM); Glucose 344 mg/dL (74-99); Non-African American GFR(CKD) 32 (>60 ml/min/1.73 sqM)
[2023-10-15 15:30] VITALS: BP 106/66; PULSE 87
--- NOTE | 2023-10-15 16:11 | US ---
EXAMINATION TYPE: US paracentesis abd w/image DATE OF EXAM: 10/15/2023 CLINICAL HISTORY: 63-year-old male K7 4.60, unspecified cirrhosis of the liver, referred for routine paracentesis. The procedure was discussed with the patient. The risks, complications, benefits, and alternatives we re discussed and any questions were answered. Informed consent was obtained. The patient was placed s upine on the ultrasound table and prepped and draped in the usual sterile fashion. All elements of maximal barrier technique were utilized. Under ultrasound guidance, access into the right lower quadrant was obtained, via the 5 [place] One-st ep catheter system and direct ultrasound guidance. Approximately 4.8 liters of slightly opaque, straw-colored fluid was removed. The patient was stable throughout the procedure and remained stable upon discharge from Department of Radiology. IMPRESSION: Successful therapeutic paracentesis under ultrasound guidance, 4.8 L of fluid removed.
== END 2023-10-15 15:40 | disposition home or self-care (01) ==
LOC: RADPROMAIN 12:52
PROVIDERS: ATTEND Internal Medicine
DX: R18.8 Other ascites (principal)
CPT/HCPCS: 36415; 49083; 82565; 82947; 85049; 85610

== ENCOUNTER 2023-10-21 02:53 | Inpatient (IN) | payer MEDICARE, OTHER ==
[2023-10-21 03:07] LABS: Glucose,Whole Blood 47 mg/dL (70-110)
[2023-10-21] MEDS: DEXTROSE 50% SYRINGE 50 ML IVP STA ×3 (03:09→14:34)
[2023-10-21] MEDS: IPRATROPIUM-ALBUTEROL 3 ML NEB INHALATION STA (03:40)
[2023-10-21 03:54] LABS: Glucose,Whole Blood 75 mg/dL (70-110)
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
[2023-10-21 04:09] LABS: Anisocytosis Slight; Basophils % (A) 0 %; Eosinophils % (A) 0 %; HCT 31.8 % (39.0-53.0); Hypochromasia Slight; Lymphocytes # (A) 0.3 k/uL (1.0-4.8); Lymphocytes % (A) 6 %; MCH 33.9 pg (25.0-35.0); MCHC 31.6 g/dL (31.0-37.0); Macrocytosis Marked; Monocytes # (A) 0.3 k/uL (0-1.0); Monocytes % (A) 7 %; Neutrophils # (A) 3.4 k/uL (1.3-7.7); Neutrophils % (A) 83 %; RBC 2.96 m/uL (4.30-5.90); RDW 17.8 % (11.5-15.5)
[2023-10-21] MEDS: HYDROCORTISONE SUCCINATE 100 MG/2 ML VIAL IV STA (04:16)
[2023-10-21] MEDS: FUROSEMIDE 10 MG/ML 4 ML VIAL IV STA (04:16)
[2023-10-21 04:21] LABS: INR 0.9 (<1.2); MCV 107.4 fL (80.0-100.0); Prothrombin Time 10.2 sec (10.0-12.5)
[2023-10-21 04:22] LABS: Partial Thromboplastin Time 27.1 sec (22.0-30.0)
[2023-10-21 04:45] LABS: Glucose,Whole Blood 48 mg/dL (70-110)
[2023-10-21 04:46] LABS: ALT 33 U/L (4-49); AST 35 U/L (17-59); African American GFR (CKD) 20 (>60 ml/min/1.73 sqM); Albumin 2.7 g/dL (3.5-5.0); Alkaline Phosphatase 132 U/L (38-126); Anion Gap 9 mmol/L; Blood Urea Nitrogen 87 mg/dL (9-20); Calcium 7.7 mg/dL (8.4-10.2); Carbon Dioxide 17 mmol/L (22-30); Chloride 106 mmol/L (98-107); Glucose 72 mg/dL (74-99); Magnesium 2.5 mg/dL (1.6-2.3); Non-African American GFR(CKD) 18 (>60 ml/min/1.73 sqM); Potassium 5.3 mmol/L (3.5-5.1); Sodium 132 mmol/L (137-145); Total Bilirubin 0.8 mg/dL (0.2-1.3); Total Protein 5.9 g/dL (6.3-8.2)
[2023-10-21 04:54] LABS: NT-Pro-B-Type Natriuretic Pept 6340 pg/mL
--- NOTE | 2023-10-21 05:04 | XR ---
EXAM: XR Chest, 1 View CLINICAL HISTORY: ITS.REASON XR Reason: dyspnea TECHNIQUE: Frontal view of the chest. COMPARISON: No relevant prior studies available. IMPRESSION: Cardiomegaly. Elevated right hemidiaphragm. Right basilar opacity.
[2023-10-21] MEDS: NOREPINEPHRINE 4 MG in SODIUM CHLORIDE 0.9% 250 ML IV SCH (05:09)
[2023-10-21] MEDS: cefTRIAXone IN SWFI 1,000 MG/10 ML SYRINGE IVP STA ×2 (05:18→08:27)
[2023-10-21 05:22] LABS: Platelet Count 79 k/uL (150-450)
[2023-10-21 05:32] LABS: Glucose,Whole Blood 79 mg/dL (70-110)
[2023-10-21] MEDS: DEXTROSE 5%-0.9% NACL 1,000 ML IV SCH (05:45)
[2023-10-21] MEDS: ETOMIDATE 2 MG/ML 10 ML VIAL IVP STA (06:26)
[2023-10-21] MEDS: ROCURONIUM 10 MG/ML (5 ML VIAL) IV STA (06:26)
[2023-10-21] MEDS ORDERED: NALOXONE 0.4 MG/ML 1 ML VIAL IV PRN (07:07)
[2023-10-21 07:10] LABS: T4, Free (Free Thyroxine) 1.19 ng/dL (0.78-2.19)
[2023-10-21 07:10] LABS: ABG Base Excess -10.5 mmol/L; ABG HCO3 18 mmol/L (21-25); ABG PCO2 45 mmHg (35-45); ABG PO2 81 mmHg (83-108); ABG TCO2 19 mmol/L (19-24); Allen Test Performed? Yes
--- NOTE | 2023-10-21 07:38 | XR ---
EXAMINATION TYPE: XR chest 1V DATE OF EXAM: 10/21/2023 HISTORY: Shortness of breath. COMPARISON: 10/21/2023 TECHNIQUE: Single view of the chest is submitted. FINDINGS: Endotracheal tube is appropriately placed with distal tip approximately 4 cm from the raman. The NG tube is noted to course into the stomach. Right IJ central venous line with distal tip overlying the right atrium. Demonstrated are scattered senescent parenchymal change. Patchy right lower lobe density may reflect infiltrate. Mild atelectasis or infiltrate left lower lob e. The heart is stable. Hilar and mediastinal structures are within normal limits. Degenerative changes are seen of the dorsal spine. IMPRESSION: 1. Indwelling tubes and catheters as noted. 2. Suspect basilar atelectasis and/or pneumonia.
[2023-10-21 07:44] LABS: Glucose,Whole Blood 64 mg/dL (70-110)
[2023-10-21 08:26] LABS: Glucose,Whole Blood 75 mg/dL (70-110)
[2023-10-21] MEDS: HYDROmorphone 1 MG/ML 1 ML SYRINGE IVP PRN ×2 (08:52→21:48)
[2023-10-21] MEDS ORDERED: ONDANSETRON 4 MG/2 ML VIAL IVP PRN (09:22)
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
[2023-10-21] MEDS: HYDROCORTISONE SUCCINATE 100 MG/2 ML VIAL IV SCH (09:58)
[2023-10-21 10:01] LABS: Glucose,Whole Blood 78 mg/dL (70-110)
[2023-10-21] MEDS: DEXTROSE 10% IN WATER 1,000 ML with SODIUM CHLORIDE 4MEQ/ML VIAL 77 MEQ IV ONE (10:04)
[2023-10-21 10:56] LABS: Glucose,Whole Blood 97 mg/dL (70-110)
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
[2023-10-21 12:04] LABS: Glucose,Whole Blood 111 mg/dL (70-110)
[2023-10-21] MEDS: OCTREOTIDE 100 MCG/ML INJ SQ SCH (12:33)
[2023-10-21] MEDS: DEXTROSE 10% IV SCH (12:38)
[2023-10-21] MEDS: SODIUM BICARB IV SCH (12:38)
[2023-10-21] MEDS: WATER IV SCH (12:38)
[2023-10-21 13:11] LABS: African American GFR (CKD) 21 (>60 ml/min/1.73 sqM); Anion Gap 13 mmol/L; Blood Urea Nitrogen 88 mg/dL (9-20); Calcium 7.5 mg/dL (8.4-10.2); Carbon Dioxide 12 mmol/L (22-30); Chloride 107 mmol/L (98-107); Glucose 118 mg/dL (74-99); Non-African American GFR(CKD) 18 (>60 ml/min/1.73 sqM); Sodium 132 mmol/L (137-145)
[2023-10-21] MEDS: MIDODRINE 5 MG TAB PO SCH (13:27)
[2023-10-21 13:50] LABS: Potassium 6.5 mmol/L (3.5-5.1)
[2023-10-21] MEDS: SODIUM BICARB 8.4% 50 ML SYR (1 MEQ/ML) IV STA ×3 (14:34→23:45)
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
[2023-10-21] MEDS: FUROSEMIDE 10 MG/ML 10 ML VIAL IV STA ×2 (14:35→23:46)
[2023-10-21] MEDS: SODIUM ZIRCONIUM CYCLOSILICATE 10 GM PACKET PO ONE ×2 (14:36→23:59)
[2023-10-21] MEDS: INSULIN REGULAR 100 UNIT/ML VIAL (IV) IV ONE (14:40)
[2023-10-21 14:59] LABS: Glucose,Whole Blood 274 mg/dL (70-110)
[2023-10-21] MEDS: CISATRACURIUM 2 MG/ML 5 ML VIAL IV ONE (15:40)
[2023-10-21 16:00] LABS: ABG Base Excess -5.8 mmol/L; ABG HCO3 21 mmol/L (21-25); ABG Oxygen Saturation 98.2 % (94-97); ABG PCO2 46 mmHg (35-45); ABG PH 7.27 (7.35-7.45); ABG PO2 335 mmHg (83-108); ABG TCO2 23 mmol/L (19-24); Allen Test Performed? Yes
[2023-10-21] MEDS: CALCIUM GLUCONATE IN NACL 1 GM in SALINE 1 100ML.BAG IVPB ONE (16:45)
[2023-10-21] MEDS: HEPARIN SODIUM 1,000 UN/ML (10ML VL) MISCELLANE ONE (17:24)
[2023-10-21] MEDS ORDERED: DEXTROSE 50% SYRINGE 50 ML IVP PRN ×2 (18:07)
[2023-10-21 18:30] LABS: African American GFR (CKD) 20 (>60 ml/min/1.73 sqM); Anion Gap 10 mmol/L; Blood Urea Nitrogen 88 mg/dL (9-20); Calcium 7.7 mg/dL (8.4-10.2); Carbon Dioxide 17 mmol/L (22-30); Chloride 105 mmol/L (98-107); Glucose 166 mg/dL (74-99); Non-African American GFR(CKD) 18 (>60 ml/min/1.73 sqM); Sodium 132 mmol/L (137-145)
[2023-10-21 19:12] LABS: Potassium 6.2 mmol/L (3.5-5.1)
[2023-10-21] MEDS: IPRATROPIUM-ALBUTEROL 3 ML NEB INHALATION SCH (20:14)
--- NOTE | 2023-10-21 20:31 | CONS ---
CONSULTATION This is a 63-year-old gentleman. The patient was seen in the intensive care unit. The patient has been intubated. The patient has history of liver failure, acute kidney injury, the patient also has history of diabetes, coronary artery disease and liver failure with ascites. I was consulted for placement of a dialysis catheter. The patient was seen in the intensive care unit. This patient has a right groin arterial line and right IJ central line. We prepped the left groin and drapes applied in a sterile manner. 1% lidocaine was infiltrated. Micropuncture was introduced to the common femoral vein. Micropuncture guidewire was passed, and then a 4-Congolese dilator advanced on top of the guidewire. Then, we passed a regular guidewire. After that, we placed a dilator on the top of the guidewire. Then, we placed a dialysis catheter on the top of the guidewire. Guidewire was removed, flushed with heparin saline and hep- locked, secured with 3-0 nylon. The patient tolerated the procedure well. MMAGNES / ISAURAN: [id number] /
[2023-10-21] MEDS: LACTULOSE 20 GM/30 ML CUP PO SCH (20:39)
[2023-10-21] MEDS: ATORVASTATIN 20 MG TAB PO SCH (20:39)
[2023-10-21] MEDS: CHLORHEXIDINE GLUCONATE 15 ML CUP MUCOUS MEM SCH (20:39)
--- NOTE | 2023-10-21 20:40 | CONS ---
CONSULTATION HISTORY OF PRESENT ILLNESS: This is a 63-year-old gentleman, who came with liver failure, acute kidney injury, consulted for placement of dialysis catheter. The patient was seen in the intensive care unit. The patient has been intubated. PHYSICAL EXAMINATION: NECK: Supple. CHEST: Has crackles bilateral. ABDOMEN: Protuberant and with some ascites. Right groin has an arterial line. ASSESSMENT: The patient has a history of diabetes, coronary artery disease, liver disease, acute kidney injury. PLAN: Placement of a dialysis catheter. Risks and complications discussed. MMODL / IJN: [id number] /
[2023-10-21] MEDS: LORazepam 2 MG/ML INJ IV STA (21:52)
--- NOTE | 2023-10-21 22:04 | PCN ---
PROCEDURE NOTE PROCEDURE PERFORMED: Right femoral art line. PREOPERATIVE DIAGNOSES: Administration of fluids and pressors, hypotension, frequent blood draws, and blood gas monitoring. POSTOPERATIVE DIAGNOSES: Administration of fluids and pressors, hypotension, frequent blood draws and blood gas monitoring. There was informed consent and universal timeout. We used a right femoral artery. SURGEON: Dr. Morfin. FIRST PSYCH COORDINATOR: Dr. Shae Cheung. ARTERIAL LINE PLACEMENT: Indications: Hemodynamic monitoring. A time-out was completed verifying correct patient, procedure, site, positioning, and implant(s) or special equipment if applicable. Blayne's test was performed to ensure adequate perfusion. The patient's right wrist or right groin was prepped and draped in sterile fashion. 1% Lidocaine was used to anesthetize the area. An 18G Arrow arterial line was introduced into the femoral artery. The catheter was threaded over the guide wire and the needle was removed with appropriate pulsatile blood return. Blood loss was minimal. The catheter was then sutured in place to the skin and a sterile dressing applied. Perfusion to the extremity distal to the point of catheter insertion was checked and found to be adequate. There was good blood return and waveform. The patient tolerated the procedure well. A sterile dressing was applied by the nurse. The catheter was sutured in place. There was no immediate complication. The patient tolerated the procedure well. MMODL / IJN: [id number] /
[2023-10-21 23:15] LABS: African American GFR (CKD) 26 (>60 ml/min/1.73 sqM); Anion Gap 9 mmol/L; Blood Urea Nitrogen 74 mg/dL (9-20); Calcium 7.6 mg/dL (8.4-10.2); Carbon Dioxide 20 mmol/L (22-30); Chloride 102 mmol/L (98-107); Glucose 197 mg/dL (74-99); Magnesium 2.2 mg/dL (1.6-2.3); Non-African American GFR(CKD) 23 (>60 ml/min/1.73 sqM); Potassium 5.6 mmol/L (3.5-5.1); Sodium 131 mmol/L (137-145)
[2023-10-21 23:38] LABS: Anisocytosis Slight; HCT 31.8 % (39.0-53.0); HGB 10.5 gm/dL (13.0-17.5); Hypochromasia Slight; MCH 34.9 pg (25.0-35.0); MCHC 33.1 g/dL (31.0-37.0); Macrocytosis Marked; Platelet Count 112 k/uL (150-450); RBC 3.02 m/uL (4.30-5.90); RDW 17.9 % (11.5-15.5); WBC 7.1 k/uL (3.8-10.6)
[2023-10-21 23:39] LABS: MCV 105.5 fL (80.0-100.0)
[2023-10-22] MEDS ORDERED: INSULIN ASPART (NovoLOG) 100 UNIT/ML VIAL SQ SCH
[2023-10-22 00:08] LABS: Glucose,Whole Blood 214 mg/dL (70-110)
[2023-10-22 04:15] LABS: AST 29 U/L (17-59); African American GFR (CKD) 24 (>60 ml/min/1.73 sqM); Albumin 2.4 g/dL (3.5-5.0); Alkaline Phosphatase 113 U/L (38-126); Blood Urea Nitrogen 74 mg/dL (9-20); Calcium 7.4 mg/dL (8.4-10.2); Carbon Dioxide 21 mmol/L (22-30); Chloride 103 mmol/L (98-107); Glucose 245 mg/dL (74-99); Non-African American GFR(CKD) 21 (>60 ml/min/1.73 sqM); Total Bilirubin 0.6 mg/dL (0.2-1.3); Total Protein 5.2 g/dL (6.3-8.2)
[2023-10-22 04:19] LABS: Anisocytosis Slight; Basophils % (A) 0 %; Eosinophils % (A) 0 %; HGB 9.9 gm/dL (13.0-17.5); Hypochromasia Slight; Lymphocytes # (A) 0.4 k/uL (1.0-4.8); Lymphocytes % (A) 7 %; MCH 33.9 pg (25.0-35.0); MCHC 32.1 g/dL (31.0-37.0); MCV 105.8 fL (80.0-100.0); Macrocytosis Marked; Mean Platelet Volume 8.5; Monocytes # (A) 0.1 k/uL (0-1.0); Monocytes % (A) 2 %; Neutrophils # (A) 4.7 k/uL (1.3-7.7); Neutrophils % (A) 90 %; RBC 2.93 m/uL (4.30-5.90); RDW 18.2 % (11.5-15.5); WBC 5.2 k/uL (3.8-10.6)
[2023-10-22 04:26] LABS: Platelet Count 98 k/uL (150-450)
[2023-10-22 04:28] LABS: ALT 27 U/L (4-49); Magnesium 2.2 mg/dL (1.6-2.3); Potassium 5.5 mmol/L (3.5-5.1); Sodium 132 mmol/L (137-145)
[2023-10-22 04:29] LABS: Anion Gap 8 mmol/L
[2023-10-22] MEDS: FUROSEMIDE 10 MG/ML 10 ML VIAL IV STA (05:10)
[2023-10-22] MEDS: SODIUM BICARB 8.4% 50 ML SYR (1 MEQ/ML) IV STA (05:10)
[2023-10-22] MEDS: SODIUM ZIRCONIUM CYCLOSILICATE 10 GM PACKET PO ONE (05:24)
[2023-10-22 05:32] LABS: Glucose,Whole Blood 280 mg/dL (70-110)
[2023-10-22 05:58] LABS: Hepatitis B Surface AB- Quant 3.5 mIU/mL; Hepatitis B Surface Antigen Nonreactive
[2023-10-22 06:11] LABS: ABG Base Excess 1.6 mmol/L; ABG HCO3 26 mmol/L (21-25); ABG Oxygen Saturation 96.6 % (94-97); ABG PCO2 36 mmHg (35-45); ABG PH 7.46 (7.35-7.45); ABG PO2 100 mmHg (83-108); ABG TCO2 27 mmol/L (19-24); Allen Test Performed? Yes
--- NOTE | 2023-10-22 07:31 | XR ---
EXAMINATION TYPE: XR chest 1V portable DATE OF EXAM: 10/22/2023 COMPARISON: 10/21/2023 HISTORY: SOB, Follow Up FINDINGS: Indwelling tubes and catheters are unchanged. No change in bibasilar opacities. Stable appearance of the cardio-mediastinal structures at this time. Pleural effusion unchanged. IMPRESSION: 1. Stable portable chest. Clinical correlation and follow up until resolution is recommended.
[2023-10-22] MEDS: PANTOPRAZOLE 40 MG/10 ML VIAL IV SCH (08:11)
[2023-10-22] MEDS: DEXTROSE 5% IN WATER 1,000 ML with SODIUM BICARB (1 MEQ/ML) 100 ML IV SCH (08:44)
[2023-10-22] MEDS ORDERED: LACTULOSE 20 GM/30 ML CUP PO SCH (09:00)
[2023-10-22] MEDS: LEVOTHYROXINE IVP 100 MCG/5 ML VIAL IV SCH (10:35)
--- NOTE | 2023-10-22 10:36 | P.PN ---
Subjective Patient is seen in follow-up for acute kidney injury. Started on hemodialysis October 21, 2023. Currently on D5 with 2 A of bicarb running at 75 cc an hour. Urine output 10 to 30 cc an hour. It was higher overnight. Intubated. Potassium level 5.5 this morning. Tolerating dialysis well. On Levophed. Vital signs are stable. On vasopressor support. General: Resting in bed. HEENT: Intubated. LUNGS: Scattered rhonchi. HEART: Rate and Rhythm are regular. ABDOMEN: Distention noted. EXTREMITITES: 2+ edema. Objective - Vital Signs Vital signs: Vital Signs Temp 96.8 F L 10/22/23 05:00 Pulse 65 10/22/23 09:20 Resp 22 10/22/23 09:20 BP 99/57 10/22/23 09:20 Pulse Ox 99 10/22/23 09:20 FiO2 50 10/22/23 08:45 Intake & Output 10/21/23 10/22/23 10/22/23 18:59 06:59 18:59 Intake Total 0123.697 9063.105 350.602 Output Total 315 1160 95 Balance 721.880 4297.105 255.602 Weight 81.647 kg 115.1 kg 115.1 kg Intake: IV 544 924 150 Invasive Line 1 10 Pressure bags 9 24 Sodium Bicarb (1 Meq/ml) 525 900 150 100 ml In Dextrose 10% in Water 1,000 ml @ 75 mls/ hr IV .[id number] [facility] Rx#: [id number] Intake, IV Titration 700.757 634.105 200.602 Amount Dextrose 5% in Water 1, 150 000 ml @ 75 mls/hr IV . [id number] [facility] with Sodium Bicarb (1 Meq/ml) 100 ml Rx#:[id number] Norepinephrine 4 mg In 423.275 298.172 50.602 Sodium Chloride 0.9% 250 ml @ 0.03 MCG/KG/MIN 9. 332 mls/hr IV .Q24H [facility] Rx#:[id number] propofoL 1,000 mg In 277.482 335.933 Empty Bag 1 bag @ 65 MCG/ KG/MIN 31.842 mls/hr IV . Q3H9M [facility] Rx#:[id number] Hemodialysis 400 Other 450 Output: Urine 315 560 95 Hemodialysis 600 Other: Voiding Method Indwelling Catheter Indwelling Catheter ABP, PAP, CO, CI - Last Documented Arterial Blood Pressure 101/67 - Labs CBC & Chem 7: 10/22/23 03:36 10/22/23 03:36 Labs: Abnormal Lab Results - Last 24 Hours (Table) 10/21/23 10/21/23 10/21/23 Range/Units 12:03 12:33 13:17 RBC (4.30-5.90) m/uL Hgb (13.0-17.5) gm/dL Hct (39.0-53.0) % MCV (80.0-100.0) fL RDW (11.5-15.5) % Plt Count (150-450) k/uL Lymphocytes # (1.0-4.8) k/uL Macrocytosis ABG pH (7.35-7.45) ABG pCO2 (35-45) mmHg ABG pO2 (83-108) mmHg ABG HCO3 (21-25) mmol/L ABG Total CO2 (19-24) mmol/L ABG O2 Saturation (94-97) % Sodium 132 L (137-145) mmol/L Potassium 6.5 H* (3.5-5.1) mmol/L Carbon Dioxide 12 L (22-30) mmol/L BUN 88 H (9-20) mg/dL Creatinine 3.45 H (0.66-1.25) mg/dL Glucose 118 H (74-99) mg/dL POC Glucose (mg/dL) 111 H (70-110) mg/dL Hemoglobin A1c (<=6.0) % Calcium 7.5 L (8.4-10.2) mg/dL Phosphorus (2.5-4.5) mg/dL Ammonia 32 H (<30) umol/L Total Protein (6.3-8.2) g/dL Albumin (3.5-5.0) g/dL 10/21/23 10/21/23 10/21/23 Range/Units 14:56 15:58 18:00 RBC (4.30-5.90) m/uL Hgb (13.0-17.5) gm/dL Hct (39.0-53.0) % MCV (80.0-100.0) fL RDW (11.5-15.5) % Plt Count (150-450) k/uL Lymphocytes # (1.0-4.8) k/uL Macrocytosis ABG pH 7.27 L (7.35-7.45) ABG pCO2 46 H (35-45) mmHg ABG pO2 335 H (83-108) mmHg ABG HCO3 (21-25) mmol/L ABG Total CO2 (19-24) mmol/L ABG O2 Saturation 98.2 H (94-97) % Sodium 132 L (137-145) mmol/L Potassium 6.2 H* (3.5-5.1) mmol/L Carbon Dioxide 17 L (22-30) mmol/L BUN 88 H (9-20) mg/dL Creatinine 3.52 H (0.66-1.25) mg/dL Glucose 166 H (74-99) mg/dL POC Glucose (mg/dL) 274 H (70-110) mg/dL Hemoglobin A1c (<=6.0) % Calcium 7.7 L (8.4-10.2) mg/dL Phosphorus (2.5-4.5) mg/dL Ammonia (<30) umol/L Total Protein (6.3-8.2) g/dL Albumin (3.5-5.0) g/dL 10/21/23 10/21/23 10/22/23 Range/Units 22:47 22:47 00:06 RBC 3.02 L (4.30-5.90) m/uL Hgb 10.5 L (13.0-17.5) gm/dL Hct 31.8 L (39.0-53.0) % MCV 105.5 H (80.0-100.0) fL RDW 17.9 H (11.5-15.5) % Plt Count 112 L (150-450) k/uL Lymphocytes # (1.0-4.8) k/uL Macrocytosis Marked A ABG pH (7.35-7.45) ABG pCO2 (35-45) mmHg ABG pO2 (83-108) mmHg ABG HCO3 (21-25) mmol/L ABG Total CO2 (19-24) mmol/L ABG O2 Saturation (94-97) % Sodium 131 L (137-145) mmol/L Potassium 5.6 H (3.5-5.1) mmol/L Carbon Dioxide 20 L (22-30) mmol/L BUN 74 H (9-20) mg/dL Creatinine 2.86 H (0.66-1.25) mg/dL Glucose 197 H (74-99) mg/dL POC Glucose (mg/dL) 214 H (70-110) mg/dL Hemoglobin A1c (<=6.0) % Calcium 7.6 L (8.4-10.2) mg/dL Phosphorus (2.5-4.5) mg/dL Ammonia (<30) umol/L Total Protein (6.3-8.2) g/dL Albumin (3.5-5.0) g/dL 10/22/23 10/22/23 10/22/23 Range/Units 03:36 03:36 03:36 RBC 2.93 L (4.30-5.90) m/uL Hgb 9.9 L (13.0-17.5) gm/dL Hct 31.0 L (39.0-53.0) % MCV 105.8 H (80.0-100.0) fL RDW 18.2 H (11.5-15.5) % Plt Count 98 L (150-450) k/uL Lymphocytes # 0.4 L (1.0-4.8) k/uL Macrocytosis Marked A ABG pH (7.35-7.45) ABG pCO2 (35-45) mmHg ABG pO2 (83-108) mmHg ABG HCO3 (21-25) mmol/L ABG Total CO2 (19-24) mmol/L ABG O2 Saturation (94-97) % Sodium 132 L (137-145) mmol/L Potassium 5.5 H (3.5-5.1) mmol/L Carbon Dioxide 21 L (22-30) mmol/L BUN 74 H (9-20) mg/dL Creatinine 3.11 H (0.66-1.25) mg/dL Glucose 245 H (74-99) mg/dL POC Glucose (mg/dL) (70-110) mg/dL Hemoglobin A1c 7.5 H (<=6.0) % Calcium 7.4 L (8.4-10.2) mg/dL Phosphorus 9.0 H* (2.5-4.5) mg/dL Ammonia (<30) umol/L Total Protein 5.2 L (6.3-8.2) g/dL Albumin 2.4 L (3.5-5.0) g/dL 10/22/23 10/22/23 Range/Units 05:30 05:57 RBC (4.30-5.90) m/uL Hgb (13.0-17.5) gm/dL Hct (39.0-53.0) % MCV (80.0-100.0) fL RDW (11.5-15.5) % Plt Count (150-450) k/uL Lymphocytes # (1.0-4.8) k/uL Macrocytosis ABG pH 7.46 H (7.35-7.45) ABG pCO2 (35-45) mmHg ABG pO2 (83-108) mmHg ABG HCO3 26 H (21-25) mmol/L ABG Total CO2 27 H (19-24) mmol/L ABG O2 Saturation (94-97) % Sodium (137-145) mmol/L Potassium (3.5-5.1) mmol/L Carbon Dioxide (22-30) mmol/L BUN (9-20) mg/dL Creatinine (0.66-1.25) mg/dL Glucose (74-99) mg/dL POC Glucose (mg/dL) 280 H (70-110) mg/dL Hemoglobin A1c (<=6.0) % Calcium (8.4-10.2) mg/dL Phosphorus (2.5-4.5) mg/dL Ammonia (<30) umol/L Total Protein (6.3-8.2) g/dL Albumin (3.5-5.0) g/dL Microbiology - Last 24 Hours (Table) 10/21/23 06:47 Gram Stain - Preliminary Sputum Assessment and Plan Plan: Assessment: 1. Acute kidney injury secondary to ATN secondary to septic shock. Creatinine 3.54 on admission. Creatinine as low as 1.02 dated 10/01/23. Started on hemodialysis October 21, 2023 due to volume overload and hyperkalemia. 2. Septic shock. Possibly SBP. On IV antibiotics. On Levophed. 3. Metabolic acidosis secondary to acute kidney injury. 4. Hypervolemic hyponatremia. Better. 5. Volume overload. 6. Alcohol induced liver cirrhosis. 7. Acute hypoxic respiratory failure. Intubated. 8. Diabetes mellitus with hypoglycemia. Blood sugars now on the higher side. 9. Chronic diastolic CHF with moderate mitral regurgitation. 10. History of adrenal insufficiency. Currently on IV Solu-Cortef. 11. Hyperphosphatemia secondary to acute kidney injury. Plan: Currently seen while undergoing hemodialysis. Another treatment tomorrow. Hep-Lock IV fluids. Add IV Lasix 80 mg daily. Maintain midodrine. Paracentesis pending. 25 g IV albumin pre and post paracentesis. Tube feeds to be started today. Add PhosLo twice daily. Follow-up cultures. Avoid nephrotoxins. Wean FiO2 and vasopressors. Follow-up renal ultrasound. Continue to monitor renal function and urine output. Case discussed with primary team.
[2023-10-22] MEDS: FUROSEMIDE 10 MG/ML 10 ML VIAL IV SCH (10:57)
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
[2023-10-22 12:14] LABS: Glucose,Whole Blood 220 mg/dL (70-110)
[2023-10-22] MEDS: INSULIN ASPART (NovoLOG) 100 UNIT/ML VIAL SQ SCH ×2 (12:18→23:25)
--- NOTE | 2023-10-22 12:29 | P.PN ---
Subjective Progress Note Date: 10/22/23 Principal diagnosis: Decompensated cirrhosis of the liver Patient is a 63-year-old male with known alcoholic apparently patient also continues to drink 1-2 drinks weekly liver disease requiring weekly paracentesis, recent acute kidney injury, adrenal insufficiency, diabetes, COPD, and coronary artery disease who presented to the ER via EMS after being found unresponsive at home. HPI is obtained from chart. On arrival he was hypothermic and hypoglycemic with a blood sugar of 47 despite treatment by EMS. Initial labs in the ER included CBC, coags, CMP, TSH, troponin, BNP, and ABG which were remarkable for hemoglobin 10, platelet count 79, pH 7.2, bicarb 18, sodium 132, potassium 5.3, BUN 87, creatinine 3.54 up from 2.15 most recently, magnesium 2.5, BNP 6340, and TSH of 5.680. Initial chest x-ray shows significant right-sided pleural effusion with increased pulmonary vascular congestion. In the ER he was started on D5 half normal due to his persistent hypoglycemia, these were warmed fluids to help with his hypothermia. Patient became more and more dyspneic. He ultimately required vasopressors due to prolonged hypotension, and intubation due to worsening respiratory distress from IV fluids. He was started on propofol and norepinephrine. Critical care was consulted and he was admitted to the ICU. Patient is currently admitted to the ICU he is sedated and on mechanical ventilation. Apparently prior to the patient coming into the emergency department he was watching the [employer] game and around midnight he wanted a snack however did not he did then around 1 AM was found on the floor next to his recliner. EMS was called and he was brought into the emergency department. He was recently hospitalized and discharged to [facility] which he was then discharged from there about 8 days ago. Apparently patient has been drinking 1- 2 drinks weekly but has a significant history of heavy alcohol use in the past. 10/22/2023 Patient seen and examined as a follow-up today in the ICU. He remains sedated and intubated. Patient noted to have acute kidney injury and was started on hemodialysis. Currently undergoing hemodialysis at this time. Today's labs WBC 5.2 hemoglobin 9.9 hematocrit 31 platelet count 98,000 sodium 132 potassium 5.5 BUN 74 creatinine 3.1 glucose 245 calcium 7.4 phosphorus 9.0 total bilirubin 0.6 AST 29 ALT 27 alkaline phosphatase 113 Objective - Vital Signs Vital signs: Vital Signs Temp 96.8 F L 10/22/23 05:00 Pulse 70 10/22/23 09:11 Resp 22 10/22/23 07:00 BP 99/58 10/22/23 07:00 Pulse Ox 99 10/22/23 07:00 FiO2 50 10/22/23 08:45 Intake & Output 10/21/23 10/22/23 10/22/23 18:59 06:59 18:59 Intake Total 7976.927 6307.105 125.602 Output Total 315 1160 30 Balance 312.508 1815.105 95.602 Weight 81.647 kg 115.1 kg 115.1 kg Intake: IV 544 924 75 Invasive Line 1 10 Pressure bags 9 24 Sodium Bicarb (1 Meq/ml) 525 900 75 100 ml In Dextrose 10% in Water 1,000 ml @ 75 mls/ hr IV .[id number] [facility] Rx#: [id number] Intake, IV Titration 700.757 634.105 50.602 Amount Norepinephrine 4 mg In 423.275 298.172 50.602 Sodium Chloride 0.9% 250 ml @ 0.03 MCG/KG/MIN 9. 332 mls/hr IV .Q24H [facility] Rx#:[id number] propofoL 1,000 mg In 277.482 335.933 Empty Bag 1 bag @ 65 MCG/ KG/MIN 31.842 mls/hr IV . Q3H9M [facility] Rx#:[id number] Hemodialysis 400 Other 450 Output: Urine 315 560 30 Hemodialysis 600 Other: Voiding Method Indwelling Catheter Indwelling Catheter ABP, PAP, CO, CI - Last Documented Arterial Blood Pressure 101/67 - Exam General appearance: The patient is sedated and intubated. s. HET: Head is normocephalic and atraumatic. Conjunctiva pink. Sclera anicteric. Neck: Supple without lymphadenopathy. Abdomen: Soft, nondistended. No guarding or rigidity. Extremities: Normal skin color and turgor. Pedal edema. Skin: No rashes, no jaundice Neurological: Sedated and intubated. - Labs CBC & Chem 7: 10/22/23 03:36 10/22/23 03:36 Labs: Abnormal Lab Results - Last 24 Hours (Table) 10/21/23 10/21/2310/21/24 Range/Units 12:03 12:33 13:17 RBC (4.30-5.90) m/uL Hgb (13.0-17.5) gm/dL Hct (39.0-53.0) % MCV (80.0-100.0) fL RDW (11.5-15.5) % Plt Count (150-450) k/uL Lymphocytes # (1.0-4.8) k/uL Macrocytosis ABG pH (7.35-7.45) ABG pCO2 (35-45) mmHg ABG pO2 (83-108) mmHg ABG HCO3 (21-25) mmol/L ABG Total CO2 (19-24) mmol/L ABG O2 Saturation (94-97) % Sodium 132 L (137-145) mmol/L Potassium 6.5 H* (3.5-5.1) mmol/L Carbon Dioxide 12 L (22-30) mmol/L BUN 88 H (9-20) mg/dL Creatinine 3.45 H (0.66-1.25) mg/dL Glucose 118 H (74-99) mg/dL POC Glucose (mg/dL) 111 H (70-110) mg/dL Hemoglobin A1c (<=6.0) % Calcium 7.5 L (8.4-10.2) mg/dL Phosphorus (2.5-4.5) mg/dL Ammonia 32 H (<30) umol/L Total Protein (6.3-8.2) g/dL Albumin (3.5-5.0) g/dL 10/21/23 10/21/23 10/21/23 Range/Units 14:56 15:58 18:00 RBC (4.30-5.90) m/uL Hgb (13.0-17.5) gm/dL Hct (39.0-53.0) % MCV (80.0-100.0) fL RDW (11.5-15.5) % Plt Count (150-450) k/uL Lymphocytes # (1.0-4.8) k/uL Macrocytosis ABG pH 7.27 L (7.35-7.45) ABG pCO2 46 H (35-45) mmHg ABG pO2 335 H (83-108) mmHg ABG HCO3 (21-25) mmol/L ABG Total CO2 (19-24) mmol/L ABG O2 Saturation 98.2 H (94-97) % Sodium 132 L (137-145) mmol/L Potassium 6.2 H* (3.5-5.1) mmol/L Carbon Dioxide 17 L (22-30) mmol/L BUN 88 H (9-20) mg/dL Creatinine 3.52 H (0.66-1.25) mg/dL Glucose 166 H (74-99) mg/dL POC Glucose (mg/dL) 274 H (70-110) mg/dL Hemoglobin A1c (<=6.0) % Calcium 7.7 L (8.4-10.2) mg/dL Phosphorus (2.5-4.5) mg/dL Ammonia (<30) umol/L Total Protein (6.3-8.2) g/dL Albumin (3.5-5.0) g/dL 10/21/23 10/21/23 10/22/23 Range/Units 22:47 22:47 00:06 RBC 3.02 L (4.30-5.90) m/uL Hgb 10.5 L (13.0-17.5) gm/dL Hct 31.8 L (39.0-53.0) % MCV 105.5 H (80.0-100.0) fL RDW 17.9 H (11.5-15.5) % Plt Count 112 L (150-450) k/uL Lymphocytes # (1.0-4.8) k/uL Macrocytosis Marked A ABG pH (7.35-7.45) ABG pCO2 (35-45) mmHg ABG pO2 (83-108) mmHg ABG HCO3 (21-25) mmol/L ABG Total CO2 (19-24) mmol/L ABG O2 Saturation (94-97) % Sodium 131 L (137-145) mmol/L Potassium 5.6 H (3.5-5.1) mmol/L Carbon Dioxide 20 L (22-30) mmol/L BUN 74 H (9-20) mg/dL Creatinine 2.86 H (0.66-1.25) mg/dL Glucose 197 H (74-99) mg/dL POC Glucose (mg/dL) 214 H (70-110) mg/dL Hemoglobin A1c (<=6.0) % Calcium 7.6 L (8.4-10.2) mg/dL Phosphorus (2.5-4.5) mg/dL Ammonia (<30) umol/L Total Protein (6.3-8.2) g/dL Albumin (3.5-5.0) g/dL 10/22/23 10/22/23 10/22/23 Range/Units 03:36 03:36 03:36 RBC 2.93 L (4.30-5.90) m/uL Hgb 9.9 L (13.0-17.5) gm/dL Hct 31.0 L (39.0-53.0) % MCV 105.8 H (80.0-100.0) fL RDW 18.2 H (11.5-15.5) % Plt Count 98 L (150-450) k/uL Lymphocytes # 0.4 L (1.0-4.8) k/uL Macrocytosis Marked A ABG pH (7.35-7.45) ABG pCO2 (35-45) mmHg ABG pO2 (83-108) mmHg ABG HCO3 (21-25) mmol/L ABG Total CO2 (19-24) mmol/L ABG O2 Saturation (94-97) % Sodium 132 L (137-145) mmol/L Potassium 5.5 H (3.5-5.1) mmol/L Carbon Dioxide 21 L (22-30) mmol/L BUN 74 H (9-20) mg/dL Creatinine 3.11 H (0.66-1.25) mg/dL Glucose 245 H (74-99) mg/dL POC Glucose (mg/dL) (70-110) mg/dL Hemoglobin A1c 7.5 H (<=6.0) % Calcium 7.4 L (8.4-10.2) mg/dL Phosphorus 9.0 H* (2.5-4.5) mg/dL Ammonia (<30) umol/L Total Protein 5.2 L (6.3-8.2) g/dL Albumin 2.4 L (3.5-5.0) g/dL 10/22/23 10/22/23 Range/Units 05:30 05:57 RBC (4.30-5.90) m/uL Hgb (13.0-17.5) gm/dL Hct (39.0-53.0) % MCV (80.0-100.0) fL RDW (11.5-15.5) % Plt Count (150-450) k/uL Lymphocytes # (1.0-4.8) k/uL Macrocytosis ABG pH 7.46 H (7.35-7.45) ABG pCO2 (35-45) mmHg ABG pO2 (83-108) mmHg ABG HCO3 26 H (21-25) mmol/L ABG Total CO2 27 H (19-24) mmol/L ABG O2 Saturation (94-97) % Sodium (137-145) mmol/L Potassium (3.5-5.1) mmol/L Carbon Dioxide (22-30) mmol/L BUN (9-20) mg/dL Creatinine (0.66-1.25) mg/dL Glucose (74-99) mg/dL POC Glucose (mg/dL) 280 H (70-110) mg/dL Hemoglobin A1c (<=6.0) % Calcium (8.4-10.2) mg/dL Phosphorus (2.5-4.5) mg/dL Ammonia (<30) umol/L Total Protein (6.3-8.2) g/dL Albumin (3.5-5.0) g/dL Microbiology - Last 24 Hours (Table) 10/21/23 06:47 Gram Stain - Preliminary Sputum Assessment and Plan (1) Alcoholic liver disease Narrative/Plan: 63-year-old male with known alcoholic liver disease underlying cirrhosis from the above. Was found nonresponsive and hypoglycemic. He was brought into the emergency department was hypotensive requiring pressors and then became hypoxic requiring intubation. Also patient gets weekly paracentesis last documented paracentesis 10/15/2023 4 to 4.8 L of fluid removed. Patient was also recently transfer to an outside facility for suspected GI bleed. Patient reportedly continues to drink 1-2 drinks weekly. Continue supportive care at this time we will hold off on any paracentesis due to hypotension and pressor support. Will defer diuretics to nephrology. Current Visit: Yes Status: Acute Code(s): K70.9 - ALCOHOLIC LIVER DISEASE, UNSPECIFIED SNOMED Code(s): 11120423 (2) Hypotension Current Visit: Yes Status: Acute Code(s): I95.9 - HYPOTENSION, UNSPECIFIED SNOMED Code(s): 47487791 (3) Thrombocytopenia Current Visit: Yes Status: Acute Code(s): D69.6 - THROMBOCYTOPENIA, UNSPECIFIED SNOMED Code(s): 887229270 (4) Ascites Current Visit: Yes Status: Acute Code(s): R18.8 - OTHER ASCITES SNOMED Code(s): 525167696 (5) History of alcohol abuse Current Visit: No Status: Acute Code(s): F10.11 - ALCOHOL ABUSE, IN REMISSION SNOMED Code(s): 429616038 (6) Hypoglycemia Current Visit: No Status: Acute Code(s): E16.2 - HYPOGLYCEMIA, UNSPECIFIED SNOMED Code(s): 807760859 (7) Hyponatremia Current Visit: No Status: Acute Code(s): E87.1 - HYPO-OSMOLALITY AND HYPONAT REMIA SNOMED Code(s): 15543012 (8) Hypoxia Current Visit: No Status: Acute Code(s): R09.02 - HYPOXEMIA SNOMED Code(s): 945336380 (9) SAHARA (acute kidney injury) Narrative/Plan: Nephrology following. Patient with temporary hemodialysis catheter placed currently undergoing hemodialysis. Current Visit: Yes Status: Acute Priority: High Code(s): N17.9 - ACUTE KIDNEY FAILURE, UNSPECIFIED SNOMED Code(s): 35372412 Plan: 1. Continue symptomatic and supportive care 2. Continue ICU management 3. Diuretics per recommendations from nephrology 4. Alcohol abstinence 5. Hold paracentesis for now due to hypotension and pressor support 6. Continue Rocephin for possible SBP 7. Daily ammonia 8. Continue lactulose to 30 g twice daily 9. Further recommendations forthcoming based on clinical course Thank you for this consultation, we will continue to follow. Dr. Tessy Lynch I agree with the dictator's note, documented as a scribe by Светлана Rubin.
--- NOTE | 2023-10-22 13:45 | P.PN ---
Subjective Progress Note Date: 10/22/23 (delayed charting seen at 0815) Patient is a 63-year-old male with known liver disease requiring weekly paracentesis, recently diagnosed hepatorenal syndrome, adrenal insufficiency, diabetes, COPD, and coronary artery disease who presented to the ER via EMS after being found unresponsive at home. In the ER he underwent extensive evaluation. On arrival he was hypothermic and hypoglycemic with a blood sugar of 47 despite treatment by EMS. Initial labs in the ER included CBC, coags, CMP, TSH, troponin, BNP, and ABG which were remarkable for hemoglobin 10, platelet count 79, pH 7.2, bicarb 18, sodium 132, potassium 5.3, BUN 87, creatinine 3.54 up from 2.15 most recently, magnesium 2.5, BNP 6340, and TSH of 5.680. Initial chest x-ray as reviewed by myself shows significant right-sided pleural effusion with increased pulmonary vascular congestion. In the ER he was started on D5 half normal due to his persistent hypoglycemia, these were warmed fluids to help with his hypothermia. Patient became more and more dyspneic. He ultimately required vasopressors due to prolonged hypotension, and intubation due to worsening respiratory distress from IV fluids. He was started on propofol and norepinephrine. Critical care was consulted. Arrangements were made for admission to the ICU. He was transitioned to D10 wiht sodium bicarb. He was seen by nephrology and required emergent HD for hyperkalemia and acidosis. Patient seen and examined at bedside. He remains sedated on the ventilator. Per nursing no acute events overnight. Have been able to wean down slightly on norepinephrine. Vital signs reviewed General: Nontoxic, no distress, appears at stated age Cardiovascular: S1S2 reg, no murmur Lungs: Course bs bilateral, no rhonchi, no rales, no accessory muscle use, on vent Abdominal: Tense abdomen, nontender to palpation, no guarding Ext: No gross muscle atrophy, 2+ edema b/l lower extremities, no contractures Neuro: sedated on vent Psych: sedated on vent Assessment/Plan: Acute hypoxic respiratory failure secondary to decompensated cirrhosis Acute metabolic encephalopathy secondary to above Shock, possibly septic -Patient with worsening ascites causing rigid abdomen. Consult interventional radiology for possible paracentesis -Pulmonary critical care note reviewed: continue with HD, would benefit from paracentesis. Patient started levothyroxine 100 mcg IVP by Critical care. - GI note reviewed: no new recs - Rocephin for possible SBP - hold home aldactone and lisinopril due to hypotension - hold remeron and xanax as patient is currently on vert Acute kidney injury, suspect hepatorenal disease Chronic kidney disease stage III Hyerpvolemia hyponatremia Hyperkalemia Meatbolic acidosis - S/P emergent HD 10/21, HD again today -Case discussed with Dr. Medina: Will stop IV fluids given that the patient's significant hypoglycemia has resolved. Will attempt to remove 1 L with hemodialysis -Charles for strict I's and O's - Lasix 80 mg IVP daily Adrenal insufficiency now with shock -Patient is on hydrocortisone at home -Continue with cortef 100 mg IV push every 8 hours, will taper as vasopressor requirements decreased Chronic: Coronary artery disease COPD without exacerbation Anemia of chronic disease Alcoholic cirrhosis Prolonged hypoglycemia in an insulin-dependent diabetic, resolved Imaging: CXR reviewed by myself with continued b/l pleural effusions. Data Review: Labs reviewed from today are CBC, CMP, ABG, Phos, Mg, A1C remarklabe for phos 9, A1C 7.5, Cr 3.11, Bun 74, Potassium 5.5, sodium 132, HgB 9.9, Plt 98 DVT prophylaxis: Heparin SC Anticipated discharge date: Pending Clinical Course Anticipated discharge place: Pending Clinical Course This dictation was prepared using [employer] voice recognition software. Though every attempt is made to correct errors during dictation some may still exist. Objective - Vital Signs Vital signs: Vital Signs Temp 97.8 F 10/22/23 12:00 Pulse 68 10/22/23 13:30 Resp 22 10/22/23 13:30 BP 103/54 10/22/23 13:30 Pulse Ox 98 10/22/23 13:30 FiO2 50 10/22/23 12:00 Intake & Output 10/21/23 10/22/23 10/22/23 18:59 06:59 18:59 Intake Total 6468.756 4405.105 1047.405 Output Total 315 1160 1330 Balance 496.846 0718.105 -282.595 Weight 81.647 kg 115.1 kg 115.1 kg Intake: IV 544 924 190 .9NS KVO 40 Invasive Line 1 10 Pressure bags 9 24 Sodium Bicarb (1 Meq/ml) 525 900 150 100 ml In Dextrose 10% in Water 1,000 ml @ 75 mls/ hr IV .[id number] [facility] Rx#: [id number] Intake, IV Titration 700.757 634.105 457.405 Amount Dextrose 5% in Water 1, 150 000 ml @ 75 mls/hr IV . [id number] [facility] with Sodium Bicarb (1 Meq/ml) 100 ml Rx#:[id number] Norepinephrine 4 mg In 423.275 298.172 157.405 Sodium Chloride 0.9% 250 ml @ 0.03 MCG/KG/MIN 9. 332 mls/hr IV .Q24H [facility] Rx#:[id number] cefTRIAXone 1 gm In 50 Sodium Chloride 0.9% 50 ml @ 100 mls/hr IVPB Q24HR [facility] Rx#:[id number] propofoL 1,000 mg In 277.482 335.933 100 Empty Bag 1 bag @ 65 MCG/ KG/MIN 31.842 mls/hr IV . Q3H9M [facility] Rx#:[id number] Hemodialysis 400 400 Other 450 Output: Urine 315 560 130 Hemodialysis 600 1200 Other: Voiding Method Indwelling Catheter Indwelling Catheter ABP, PAP, CO, CI - Last Documented Arterial Blood Pressure 101/67 - Labs CBC & Chem 7: 10/22/23 03:36 10/22/23 03:36 Labs: Abnormal Lab Results - Last 24 Hours (Table) 10/21/23 10/21/23 10/21/23 Range/Units 12:33 13:17 14:56 RBC (4.30-5.90) m/uL Hgb (13.0-17.5) gm/dL Hct (39.0-53.0) % MCV (80.0-100.0) fL RDW (11.5-15.5) % Plt Count (150-450) k/uL Lymphocytes # (1.0-4.8) k/uL Macrocytosis ABG pH (7.35-7.45) ABG pCO2 (35-45) mmHg ABG pO2 (83-108) mmHg ABG HCO3 (21-25) mmol/L ABG Total CO2 (19-24) mmol/L ABG O2 Saturation (94-97) % Sodium 132 L (137-145) mmol/L Potassium 6.5 H* (3.5-5.1) mmol/L Carbon Dioxide 12 L (22-30) mmol/L BUN 88 H (9-20) mg/dL Creatinine 3.45 H (0.66-1.25) mg/dL Glucose 118 H (74-99) mg/dL POC Glucose (mg/dL) 274 H (70-110) mg/dL Hemoglobin A1c (<=6.0) % Calcium 7.5 L (8.4-10.2) mg/dL Phosphorus (2.5-4.5) mg/dL Ammonia 32 H (<30) umol/L Total Protein (6.3-8.2) g/dL Albumin (3.5-5.0) g/dL 10/21/23 10/21/23 10/21/23 Range/Units 15:58 18:00 22:47 RBC 3.02 L (4.30-5.90) m/uL Hgb 10.5 L (13.0-17.5) gm/dL Hct 31.8 L (39.0-53.0) % MCV 105.5 H (80.0-100.0) fL RDW 17.9 H (11.5-15.5) % Plt Count 112 L (150-450) k/uL Lymphocytes # (1.0-4.8) k/uL Macrocytosis Marked A ABG pH 7.27 L (7.35-7.45) ABG pCO2 46 H (35-45) mmHg ABG pO2 335 H (83-108) mmHg ABG HCO3 (21-25) mmol/L ABG Total CO2 (19-24) mmol/L ABG O2 Saturation 98.2 H (94-97) % Sodium 132 L (137-145) mmol/L Potassium 6.2 H* (3.5-5.1) mmol/L Carbon Dioxide 17 L (22-30) mmol/L BUN 88 H (9-20) mg/dL Creatinine 3.52 H (0.66-1.25) mg/dL Glucose 166 H (74-99) mg/dL POC Glucose (mg/dL) (70-110) mg/dL Hemoglobin A1c (<=6.0) % Calcium 7.7 L (8.4-10.2) mg/dL Phosphorus (2.5-4.5) mg/dL Ammonia (<30) umol/L Total Protein (6.3-8.2) g/dL Albumin (3.5-5.0) g/dL 10/21/23 10/22/23 10/22/23 Range/Units 22:47 00:06 03:36 RBC (4.30-5.90) m/uL Hgb (13.0-17.5) gm/dL Hct (39.0-53.0) % MCV (80.0-100.0) fL RDW (11.5-15.5) % Plt Count (150-450) k/uL Lymphocytes # (1.0-4.8) k/uL Macrocytosis ABG pH (7.35-7.45) ABG pCO2 (35-45) mmHg ABG pO2 (83-108) mmHg ABG HCO3 (21-25) mmol/L ABG Total CO2 (19-24) mmol/L ABG O2 Saturation (94-97) % Sodium 131 L (137-145) mmol/L Potassium 5.6 H (3.5-5.1) mmol/L Carbon Dioxide 20 L (22-30) mmol/L BUN 74 H (9-20) mg/dL Creatinine 2.86 H (0.66-1.25) mg/dL Glucose 197 H (74-99) mg/dL POC Glucose (mg/dL) 214 H (70-110) mg/dL Hemoglobin A1c 7.5 H (<=6.0) % Calcium 7.6 L (8.4-10.2) mg/dL Phosphorus (2.5-4.5) mg/dL Ammonia (<30) umol/L Total Protein (6.3-8.2) g/dL Albumin (3.5-5.0) g/dL 10/22/23 10/22/23 10/22/23 Range/Units 03:36 03:36 05:30 RBC 2.93 L (4.30-5.90) m/uL Hgb 9.9 L (13.0-17.5) gm/dL Hct 31.0 L (39.0-53.0) % MCV 105.8 H (80.0-100.0) fL RDW 18.2 H (11.5-15.5) % Plt Count 98 L (150-450) k/uL Lymphocytes # 0.4 L (1.0-4.8) k/uL Macrocytosis Marked A ABG pH (7.35-7.45) ABG pCO2 (35-45) mmHg ABG pO2 (83-108) mmHg ABG HCO3 (21-25) mmol/L ABG Total CO2 (19-24) mmol/L ABG O2 Saturation (94-97) % Sodium 132 L (137-145) mmol/L Potassium 5.5 H (3.5-5.1) mmol/L Carbon Dioxide 21 L (22-30) mmol/L BUN 74 H (9-20) mg/dL Creatinine 3.11 H (0.66-1.25) mg/dL Glucose 245 H (74-99) mg/dL POC Glucose (mg/dL) 280 H (70-110) mg/dL Hemoglobin A1c (<=6.0) % Calcium 7.4 L (8.4-10.2) mg/dL Phosphorus 9.0 H* (2.5-4.5) mg/dL Ammonia (<30) umol/L Total Protein 5.2 L (6.3-8.2) g/dL Albumin 2.4 L (3.5-5.0) g/dL 10/22/23 10/22/23 Range/Units 05:57 12:12 RBC (4.30-5.90) m/uL Hgb (13.0-17.5) gm/dL Hct (39.0-53.0) % MCV (80.0-100.0) fL RDW (11.5-15.5) % Plt Count (150-450) k/uL Lymphocytes # (1.0-4.8) k/uL Macrocytosis ABG pH 7.46 H (7.35-7.45) ABG pCO2 (35-45) mmHg ABG pO2 (83-108) mmHg ABG HCO3 26 H (21-25) mmol/L ABG Total CO2 27 H (19-24) mmol/L ABG O2 Saturation (94-97) % Sodium (137-145) mmol/L Potassium (3.5-5.1) mmol/L Carbon Dioxide (22-30) mmol/L BUN (9-20) mg/dL Creatinine (0.66-1.25) mg/dL Glucose (74-99) mg/dL POC Glucose (mg/dL) 220 H (70-110) mg/dL Hemoglobin A1c (<=6.0) % Calcium (8.4-10.2) mg/dL Phosphorus (2.5-4.5) mg/dL Ammonia (<30) umol/L Total Protein (6.3-8.2) g/dL Albumin (3.5-5.0) g/dL Microbiology - Last 24 Hours (Table) 10/21/23 06:47 Gram Stain - Preliminary Sputum Sputum Culture - Preliminary Gram Neg Bacilli 10/21/23 05:13 Blood Culture - Preliminary Blood
--- NOTE | 2023-10-22 13:58 | US ---
EXAMINATION TYPE: US kidneys/renal and bladder DATE OF EXAM: 10/22/2023 COMPARISON: CLINICAL INDICATION: Male, 63 years old with history of morris; Abnormal labs. Poor historian. Hx ascit es. Bladder delatorre. Portable ICU patient, intubated EXAM MEASUREMENTS: Right Kidney: 10.1 x 5.6 x 5.6 cm Left Kidney: Unable to visualize Right Kidney: Limited, no prominent masses or lesions seen Left Kidney: Obscured by overlying bowel gas, unable to visualize Bladder: not visualized, bladder delatorre Ascites visualized in RLQ and LLQ There is no evidence for hydronephrosis at this point in time. No nephrolithiasis is seen. No kelsy s are identified. The urinary bladder is anechoic. Bilateral ureteral jets are seen. IMPRESSION: As above
[2023-10-22] MEDS: HEPARIN SODIUM,PORCINE 5,000 UNIT/ML 1 ML VIAL SQ SCH (16:16)
[2023-10-22] MEDS ORDERED: ALBUMIN HUMAN 25% 50 ML in EMPTY BAG 1 BAG IVPB ONE (16:29)
[2023-10-22] MEDS: CALCIUM ACETATE 667 MG TAB PO SCH (17:55)
[2023-10-22 17:59] LABS: Glucose,Whole Blood 215 mg/dL (70-110)
[2023-10-22 18:08] LABS: African American GFR (CKD) 27 (>60 ml/min/1.73 sqM); Anion Gap 10 mmol/L; Blood Urea Nitrogen 61 mg/dL (9-20); Calcium 7.4 mg/dL (8.4-10.2); Carbon Dioxide 22 mmol/L (22-30); Chloride 101 mmol/L (98-107); Glucose 228 mg/dL (74-99); Non-African American GFR(CKD) 24 (>60 ml/min/1.73 sqM); Potassium 4.8 mmol/L (3.5-5.1); Sodium 133 mmol/L (137-145)
[2023-10-22 23:22] LABS: Glucose,Whole Blood 252 mg/dL (70-110)
--- NOTE | 2023-10-23 00:15 | XR ---
EXAMINATION TYPE: XR chest 1V portable DATE OF EXAM: 10/23/2023 CLINICAL HISTORY: OG verification. TECHNIQUE: Single AP portable upright view of the chest is obtained. COMPARISON: Chest x-ray from earlier today FINDINGS: Orogastric tube successfully visualized projecting below diaphragm on current study. Stabl e positioning of endotracheal tube and right internal jugular central venous catheter. Persistent low lung volumes and central vascular congestion along with mild cardiomegaly. Surgical st aple in the right humeral head is redemonstrated. Contrast in stomach again seen. IMPRESSION: Satisfactory positioning of orogastric tube. Other findings stable.
[2023-10-23 05:40] LABS: African American GFR (CKD) 26 (>60 ml/min/1.73 sqM); Anion Gap 11 mmol/L; Blood Urea Nitrogen 67 mg/dL (9-20); Calcium 7.5 mg/dL (8.4-10.2); Carbon Dioxide 22 mmol/L (22-30); Chloride 101 mmol/L (98-107); Glucose 195 mg/dL (74-99); Non-African American GFR(CKD) 22 (>60 ml/min/1.73 sqM); Potassium 4.8 mmol/L (3.5-5.1); Sodium 134 mmol/L (137-145)
[2023-10-23 05:44] LABS: Anisocytosis Slight; Basophils % (A) 0 %; Eosinophils % (A) 0 %; HCT 29.6 % (39.0-53.0); HGB 9.8 gm/dL (13.0-17.5); Lymphocytes # (A) 0.8 k/uL (1.0-4.8); Lymphocytes % (A) 16 %; MCH 34.3 pg (25.0-35.0); MCHC 32.9 g/dL (31.0-37.0); MCV 104.2 fL (80.0-100.0); Mean Platelet Volume 8.6; Monocytes # (A) 0.3 k/uL (0-1.0); Monocytes % (A) 6 %; Neutrophils # (A) 3.7 k/uL (1.3-7.7); Neutrophils % (A) 75 %; RBC 2.84 m/uL (4.30-5.90); RDW 18.5 % (11.5-15.5); WBC 4.9 k/uL (3.8-10.6)
[2023-10-23 06:01] LABS: ABG Base Excess 1.7 mmol/L; ABG HCO3 25 mmol/L (21-25); ABG Oxygen Saturation 93.9 % (94-97); ABG PCO2 35 mmHg (35-45); ABG PH 7.47 (7.35-7.45); ABG PO2 75 mmHg (83-108); ABG TCO2 26 mmol/L (19-24); Allen Test Performed? Yes
[2023-10-23 06:01] LABS: Macrocytosis Marked; Platelet Count 90 k/uL (150-450)
[2023-10-23 06:24] LABS: Glucose,Whole Blood 199 mg/dL (70-110)
--- NOTE | 2023-10-23 10:50 | P.PN ---
Subjective Patient is seen in follow-up for acute kidney injury. Started on hemodialysis October 21, 2023. Oliguric. Intubated. Potassium level normal. Tolerating dialysis well. On Levophed. Vital signs are stable. On vasopressor support. General: Resting in bed. HEENT: Intubated. LUNGS: Scattered rhonchi. HEART: Rate and Rhythm are regular. ABDOMEN: Distention noted. EXTREMITITES: 2+ edema. Objective - Vital Signs Vital signs: Vital Signs Temp 97.4 F L 10/23/23 08:00 Pulse 68 10/23/23 09:00 Resp 22 10/23/23 08:00 BP 99/58 10/23/23 08:00 Pulse Ox 95 10/23/23 08:00 FiO2 50 10/23/23 08:51 Intake & Output 10/22/23 10/23/23 10/23/23 18:59 06:59 18:59 Intake Total 5433.721 3107.883 227.212 Output Total 1405 135 0 Balance 14.865 1083.883 227.212 Weight 115.1 kg 116.4 kg Intake: IV 310 240 35 .9NS KVO 160 240 35 Sodium Bicarb (1 Meq/ml) 150 100 ml In Dextrose 10% in Water 1,000 ml @ 75 mls/ hr IV .[id number] [facility] Rx#: [id number] Intake, IV Titration 679.865 599.883 98.212 Amount Dextrose 5% in Water 1, 150 000 ml @ 75 mls/hr IV . [id number] [facility] with Sodium Bicarb (1 Meq/ml) 100 ml Rx#:[id number] Norepinephrine 4 mg In 279.865 168.196 Sodium Chloride 0.9% 250 ml @ 0.03 MCG/KG/MIN 9. 332 mls/hr IV .Q24H [facility] Rx#:[id number] cefTRIAXone 1 gm In 50 50 Sodium Chloride 0.9% 50 ml @ 100 mls/hr IVPB Q24HR [facility] Rx#:[id number] propofoL 1,000 mg In 200 431.687 48.212 Empty Bag 1 bag @ 65 MCG/ KG/MIN 31.842 mls/hr IV . Q3H9M [facility] Rx#:[id number] Tube Feeding 30 169 34 Hemodialysis 400 Other 210 60 Output: Urine 205 135 0 Hemodialysis 1200 Other: Voiding Method Indwelling Catheter Indwelling Catheter Indwelling Catheter ABP, PAP, CO, CI - Last Documented Arterial Blood Pressure 101/67 - Labs CBC & Chem 7: 10/23/23 05:02 10/23/23 05:02 Labs: Abnormal Lab Results - Last 24 Hours (Table) 10/22/23 10/22/23 10/22/23 Range/Units 10:09 12:12 17:17 RBC (4.30-5.90) m/uL Hgb (13.0-17.5) gm/dL Hct (39.0-53.0) % MCV (80.0-100.0) fL RDW (11.5-15.5) % Plt Count (150-450) k/uL Lymphocytes # (1.0-4.8) k/uL Macrocytosis ABG pH (7.35-7.45) ABG pO2 (83-108) mmHg ABG Total CO2 (19-24) mmol/L ABG O2 Saturation (94-97) % Sodium 133 L (137-145) mmol/L BUN 61 H (9-20) mg/dL Creatinine 2.77 H (0.66-1.25) mg/dL Glucose 228 H (74-99) mg/dL POC Glucose (mg/dL) 220 H (70-110) mg/dL Calcium 7.4 L (8.4-10.2) mg/dL Cortisol 70.5 H (3.1-22.4) UG/DL 10/22/23 10/22/23 10/23/23 Range/Units 17:57 23:20 05:02 RBC 2.84 L (4.30-5.90) m/uL Hgb 9.8 L (13.0-17.5) gm/dL Hct 29.6 L (39.0-53.0) % MCV 104.2 H (80.0-100.0) fL RDW 18.5 H (11.5-15.5) % Plt Count 90 L (150-450) k/uL Lymphocytes # 0.8 L (1.0-4.8) k/uL Macrocytosis Marked A ABG pH (7.35-7.45) ABG pO2 (83-108) mmHg ABG Total CO2 (19-24) mmol/L ABG O2 Saturation (94-97) % Sodium (137-145) mmol/L BUN (9-20) mg/dL Creatinine (0.66-1.25) mg/dL Glucose (74-99) mg/dL POC Glucose (mg/dL) 215 H 252 H (70-110) mg/dL Calcium (8.4-10.2) mg/dL Cortisol (3.1-22.4) UG/DL 10/23/23 10/23/23 10/23/23 Range/Units 05:02 05:56 06:23 RBC (4.30-5.90) m/uL Hgb (13.0-17.5) gm/dL Hct (39.0-53.0) % MCV (80.0-100.0) fL RDW (11.5-15.5) % Plt Count (150-450) k/uL Lymphocytes # (1.0-4.8) k/uL Macrocytosis ABG pH 7.47 H (7.35-7.45) ABG pO2 75 L (83-108) mmHg ABG Total CO2 26 H (19-24) mmol/L ABG O2 Saturation 93.9 L (94-97) % Sodium 134 L (137-145) mmol/L BUN 67 H (9-20) mg/dL Creatinine 2.91 H (0.66-1.25) mg/dL Glucose 195 H (74-99) mg/dL POC Glucose (mg/dL) 199 H (70-110) mg/dL Calcium 7.5 L (8.4-10.2) mg/dL Cortisol (3.1-22.4) UG/DL Microbiology - Last 24 Hours (Table) 10/21/23 06:47 Gram Stain - Final Sputum Sputum Culture - Final Pseudomonas aeruginosa 10/21/23 05:13 Blood Culture - Preliminary Blood Assessment and Plan Plan: Assessment: 1. Acute kidney injury secondary to ATN secondary to septic shock. Creatinine 3.54 on admission. Creatinine as low as 1.02 dated 10/01/23. Started on he modialysis October 21, 2023 due to volume overload and hyperkalemia. Oliguric. No hydronephrosis noted on ultrasound. 2. Septic shock. Possibly SBP. On IV antibiotics. On Levophed. 3. Metabolic acidosis secondary to acute kidney injury. 4. Hypervolemic hyponatremia. Better. 5. Volume overload. 6. Alcohol induced liver cirrhosis. 7. Acute hypoxic respiratory failure. Intubated. 8. Diabetes mellitus with hypoglycemia. Blood sugars now on the higher side. 9. Chronic diastolic CHF with moderate mitral regurgitation. 10. History of adrenal insufficiency. Currently on IV Solu-Cortef. 11. Hyperphosphatemia secondary to acute kidney injury. On PhosLo. Plan: Currently seen while undergoing hemodialysis. Continue with daily dialysis. Maintain IV Lasix. Maintain midodrine. Paracentesis pending. 25 g IV albumin pre and post paracentesis. Receiving tube feeds. Follow-up cultures. Avoid nephrotoxins. Wean FiO2 and vasopressors. Continue to monitor renal function and urine output.
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
--- NOTE | 2023-10-23 11:18 | P.PN ---
Subjective Progress Note Date: 10/23/23 Patient is a 63-year-old male with known liver disease requiring weekly paracentesis, recently diagnosed hepatorenal syndrome, adrenal insufficiency, diabetes, COPD, and coronary artery disease who presented to the ER via EMS after being found unresponsive at home. In the ER he underwent extensive evaluation. On arrival he was hypothermic and hypoglycemic with a blood sugar of 47 despite treatment by EMS. Initial labs in the ER included CBC, coags, CMP, TSH, troponin, BNP, and ABG which were remarkable for hemoglobin 10, platelet count 79, pH 7.2, bicarb 18, sodium 132, potassium 5.3, BUN 87, creatinine 3.54 up from 2.15 most recently, magnesium 2.5, BNP 6340, and TSH of 5.680. Initial chest x-ray as reviewed by myself shows significant right-sided pleural effusion with increased pulmonary vascular congestion. In the ER he was started on D5 half normal due to his persistent hypoglycemia, these were warmed fluids to help with his hypothermia. Patient became more and more dyspneic. He ultimately required vasopressors due to prolonged hypotension, and intubation due to worsening respiratory distress from IV fluids. He was started on propofol and norepinephrine. Critical care was consulted. Arrangements were made for admission to the ICU. He was transitioned to D10 wiht sodium bicarb. He was seen by nephrology and required emergent HD for hyperkalemia and acidosis. Patient seen and examined at bedside. Sedated on vent. He was unable to get paracentesis yesterday but are hopefully getting it today. No other acute events overnight. Currently getting hemodialysis. Vital signs reviewed General: Nontoxic, no distress, appears at stated age Cardiovascular: S1S2 reg, no murmur Lungs: Course bs bilateral, no rhonchi, no rales, no accessory muscle use, on vent Abdominal: Tense abdomen, nontender to palpation, no guarding Ext: No gross muscle atrophy, 2+ edema b/l lower extremities, no contractures Neuro: sedated on vent Psych: sedated on vent Assessment/Plan: Acute hypoxic respiratory failure secondary to decompensated cirrhosis Acute metabolic encephalopathy secondary to above Shock, possibly septic - Await further critical care recommendations - Await further gastroenterology recommendations - Rocephin for possible SBP, cell count with paea - hold home aldactone and lisinopril due to hypotension - hold remeron and xanax as patient is currently on vert Acute kidney injury, probable hepatorenal disease Chronic kidney disease stage III Hyerpvolemia hyponatremia Hyperkalemia, resolved Meatbolic acidosis, resolved Hyperphosphatemia, secondary to SAHARA - Nephrology note reviewed: Continue with IV Lasix and midodrine. Administer albumin with paracentesis. - S/P emergent HD 10/21, HD 10/22 and HD again today - Charles for strict I's and O's - Lasix 80 mg IVP daily - Midodrine 10 mg 3 times daily, octreotide 50 mcg subcutaneous 3 times daily Insulin dependent diabetes Prolonged hypoglycemia in an insulin-dependent diabetic, resolved - Add levemir 5 untis at night - SSI q 6 hours - follow BS Adrenal insufficiency now with shock -Patient is on hydrocortisone at home -Decrease Solu-Cortef to 50 mg IV every 8 hours as vasopressor requirement are decreasing. Chronic: Coronary artery disease COPD without exacerbation Anemia of chronic disease Alcoholic cirrhosis Imaging: Chest x-ray as reviewed by myself reveals bilateral trace pleural effusions with increased pulmonary vascular congestion Renal US: Left kidney obstructed by bowel gas, right kidney no prominent masses or lesions Data Review: Labs reviewed from today include CBC, ABG, and basic metabolic profile which are remarkable for hemoglobin 9.8, platelets 90, sodium 134, BUN 67, creatinine 2.91, glucose 195., Ammonia has normalized at 11. Serum cortisol from yesterday is 70.5 DVT prophylaxis: Heparin SC Anticipated discharge date: Pending Clinical Course Anticipated discharge place: Pending Clinical Course This dictation was prepared using [employer] voice recognition software. Though every attempt is made to correct errors during dictation some may still exist. Objective - Vital Signs Vital signs: Vital Signs Temp 97.4 F L 10/23/23 08:00 Pulse 68 10/23/23 09:00 Resp 22 10/23/23 08:00 BP 99/58 10/23/23 08:00 Pulse Ox 95 10/23/23 08:00 FiO2 50 10/23/23 08:51 Intake & Output 10/22/23 10/23/23 10/23/23 18:59 06:59 18:59 Intake Total 2910.053 5449.883 227.212 Output Total 1405 135 0 Balance 14.865 1083.883 227.212 Weight 115.1 kg 116.4 kg Intake: IV 310 240 35 .9NS KVO 160 240 35 Sodium Bicarb (1 Meq/ml) 150 100 ml In Dextrose 10% in Water 1,000 ml @ 75 mls/ hr IV .[id number] [facility] Rx#: [id number] Intake, IV Titration 679.865 599.883 98.212 Amount Dextrose 5% in Water 1, 150 000 ml @ 75 mls/hr IV . [id number] [facility] with Sodium Bicarb (1 Meq/ml) 100 ml Rx#:[id number] Norepinephrine 4 mg In 279.865 168.196 Sodium Chloride 0.9% 250 ml @ 0.03 MCG/KG/MIN 9. 332 mls/hr IV .Q24H [facility] Rx#:[id number] cefTRIAXone 1 gm In 50 50 Sodium Chloride 0.9% 50 ml @ 100 mls/hr IVPB Q24HR [facility] Rx#:[id number] propofoL 1,000 mg In 200 431.687 48.212 Empty Bag 1 bag @ 65 MCG/ KG/MIN 31.842 mls/hr IV . Q3H9M [facility] Rx#:[id number] Tube Feeding 30 169 34 Hemodialysis 400 Other 210 60 Output: Urine 205 135 0 Hemodialysis 1200 Other: Voiding Method Indwelling Catheter Indwelling Catheter Indwelling Catheter ABP, PAP, CO, CI - Last Documented Arterial Blood Pressure 101/67 - Labs CBC & Chem 7: 10/23/23 05:02 10/23/23 05:02 Labs: Abnormal Lab Results - Last 24 Hours (Table) 10/22/23 10/22/23 10/22/23 Range/Units 10:09 12:12 17:17 RBC (4.30-5.90) m/uL Hgb (13.0-17.5) gm/dL Hct (39.0-53.0) % MCV (80.0-100.0) fL RDW (11.5-15.5) % Plt Count (150-450) k/uL Lymphocytes # (1.0-4.8) k/uL Macrocytosis ABG pH (7.35-7.45) ABG pO2 (83-108) mmHg ABG Total CO2 (19-24) mmol/L ABG O2 Saturation (94-97) % Sodium 133 L (137-145) mmol/L BUN 61 H (9-20) mg/dL Creatinine 2.77 H (0.66-1.25) mg/dL Glucose 228 H (74-99) mg/dL POC Glucose (mg/dL) 220 H (70-110) mg/dL Calcium 7.4 L (8.4-10.2) mg/dL Cortisol 70.5 H (3.1-22.4) UG/DL 10/22/23 10/22/23 10/23/23 Range/Units 17:57 23:20 05:02 RBC 2.84 L (4.30-5.90) m/uL Hgb 9.8 L (13.0-17.5) gm/dL Hct 29.6 L (39.0-53.0) % MCV 104.2 H (80.0-100.0) fL RDW 18.5 H (11.5-15.5) % Plt Count 90 L (150-450) k/uL Lymphocytes # 0.8 L (1.0-4.8) k/uL Macrocytosis Marked A ABG pH (7.35-7.45) ABG pO2 (83-108) mmHg ABG Total CO2 (19-24) mmol/L ABG O2 Saturation (94-97) % Sodium (137-145) mmol/L BUN (9-20) mg/dL Creatinine (0.66-1.25) mg/dL Glucose (74-99) mg/dL POC Glucose (mg/dL) 215 H 252 H (70-110) mg/dL Calcium (8.4-10.2) mg/dL Cortisol (3.1-22.4) UG/DL 10/23/23 10/23/23 10/23/23 Range/Units 05:02 05:56 06:23 RBC (4.30-5.90) m/uL Hgb (13.0-17.5) gm/dL Hct (39.0-53.0) % MCV (80.0-100.0) fL RDW (11.5-15.5) % Plt Count (150-450) k/uL Lymphocytes # (1.0-4.8) k/uL Macrocytosis ABG pH 7.47 H (7.35-7.45) ABG pO2 75 L (83-108) mmHg ABG Total CO2 26 H (19-24) mmol/L ABG O2 Saturation 93.9 L (94-97) % Sodium 134 L (137-145) mmol/L BUN 67 H (9-20) mg/dL Creatinine 2.91 H (0.66-1.25) mg/dL Glucose 195 H (74-99) mg/dL POC Glucose (mg/dL) 199 H (70-110) mg/dL Calcium 7.5 L (8.4-10.2) mg/dL Cortisol (3.1-22.4) UG/DL Microbiology - Last 24 Hours (Table) 10/21/23 06:47 Gram Stain - Final Sputum Sputum Culture - Final Pseudomonas aeruginosa 10/21/23 05:13 Blood Culture - Preliminary Blood
[2023-10-23 11:43] LABS: Glucose,Whole Blood 146 mg/dL (70-110)
--- NOTE | 2023-10-23 12:15 | P.PN ---
Subjective Progress Note Date: 10/23/23 Principal diagnosis: Decompensated cirrhosis of the liver Patient is a 63-year-old male with known alcoholic apparently patient also continues to drink 1-2 drinks weekly liver disease requiring weekly paracentesis, recent acute kidney injury, adrenal insufficiency, diabetes, COPD, and coronary artery disease who presented to the ER via EMS after being found unresponsive at home. HPI is obtained from chart. On arrival he was hypothermic and hypoglycemic with a blood sugar of 47 despite treatment by EMS. Initial labs in the ER included CBC, coags, CMP, TSH, troponin, BNP, and ABG which were remarkable for hemoglobin 10, platelet count 79, pH 7.2, bicarb 18, sodium 132, potassium 5.3, BUN 87, creatinine 3.54 up from 2.15 most recently, magnesium 2.5, BNP 6340, and TSH of 5.680. Initial chest x-ray shows significant right-sided pleural effusion with increased pulmonary vascular congestion. In the ER he was started on D5 half normal due to his persistent hypoglycemia, these were warmed fluids to help with his hypothermia. Patient became more and more dyspneic. He ultimately required vasopressors due to prolonged hypotension, and intubation due to worsening respiratory distress from IV fluids. He was started on propofol and norepinephrine. Critical care was consulted and he was admitted to the ICU. Patient is currently admitted to the ICU he is sedated and on mechanical ventilation. Apparently prior to the patient coming into the emergency department he was watching the [employer] game and around midnight he wanted a snack however did not he did then around 1 AM was found on the floor next to his recliner. EMS was called and he was brought into the emergency department. He was recently hospitalized and discharged to [facility] which he was then discharged from there about 8 days ago. Apparently patient has been drinking 1- 2 drinks weekly but has a significant history of heavy alcohol use in the past. 10/22/2023 Patient seen and examined as a follow-up today in the ICU. He remains sedated and intubated. Patient noted to have acute kidney injury and was started on hemodialysis. Currently undergoing hemodialysis at this time. Today's labs WBC 5.2 hemoglobin 9.9 hematocrit 31 platelet count 98,000 sodium 132 potassium 5.5 BUN 74 creatinine 3.1 glucose 245 calcium 7.4 phosphorus 9.0 total bilirubin 0.6 AST 29 ALT 27 alkaline phosphatase 113 10/23/2023 Patient seen and examined as a follow-up in the ICU. He remains sedated and intubated on mechanical ventilation. Patient has increased abdominal distenti on. He has OG tube in place. Underwent dialysis yesterday. No reported bowel movement according to his nurse. However ammonia level improving and latest is 11. Final sputum culture with Pseudomonas aeruginosa. Primary team has ordered ultrasound for paracentesis. Fluid studies and culture ordered. He is currently on octreotide. He was switched from Rocephin to Zosyn. He remains afebrile Objective - Vital Signs Vital signs: Vital Signs Temp 97.4 F L 10/23/23 08:00 Pulse 68 10/23/23 09:00 Resp 22 10/23/23 08:00 BP 99/58 10/23/23 08:00 Pulse Ox 95 10/23/23 08:00 FiO2 50 10/23/23 08:51 Intake & Output 10/22/23 10/23/23 10/23/23 18:59 06:59 18:59 Intake Total 9260.917 2349.883 227.212 Output Total 1405 135 0 Balance 14.865 1083.883 227.212 Weight 115.1 kg 116.4 kg Intake: IV 310 240 35 .9NS KVO 160 240 35 Sodium Bicarb (1 Meq/ml) 150 100 ml In Dextrose 10% in Water 1,000 ml @ 75 mls/ hr IV .[id number] [facility] Rx#: [id number] Intake, IV Titration 679.865 599.883 98.212 Amount Dextrose 5% in Water 1, 150 000 ml @ 75 mls/hr IV . [id number] [facility] with Sodium Bicarb (1 Meq/ml) 100 ml Rx#:[id number] Norepinephrine 4 mg In 279.865 168.196 Sodium Chloride 0.9% 250 ml @ 0.03 MCG/KG/MIN 9. 332 mls/hr IV .Q24H [facility] Rx#:[id number] cefTRIAXone 1 gm In 50 50 Sodium Chloride 0.9% 50 ml @ 100 mls/hr IVPB Q24HR [facility] Rx#:[id number] propofoL 1,000 mg In 200 431.687 48.212 Empty Bag 1 bag @ 65 MCG/ KG/MIN 31.842 mls/hr IV . Q3H9M [facility] Rx#:[id number] Tube Feeding 30 169 34 Hemodialysis 400 Other 210 60 Output: Urine 205 135 0 Hemodialysis 1200 Other: Voiding Method Indwelling Catheter Indwelling Catheter Indwelling Catheter ABP, PAP, CO, CI - Last Documented Arterial Blood Pressure 101/67 - Exam General appearance: The patient is sedated and intubated. s. HET: Head is normocephalic and atraumatic. Conjunctiva pink. Sclera anicteric. Neck: Supple without lymphadenopathy. Abdomen: Soft, nondistended. No guarding or rigidity. Extremities: Normal skin color and turgor. Pedal edema. Skin: No rashes, no jaundice Neurological: Sedated and intubated. - Labs CBC & Chem 7: 10/23/23 05:02 10/23/23 05:02 Labs: Abnormal Lab Results - Last 24 Hours (Table) 10/22/23 10/22/23 10/22/23 Range/Units 10:09 12:12 17:17 RBC (4.30-5.90) m/uL Hgb (13.0-17.5) gm/dL Hct (39.0-53.0) % MCV (80.0-100.0) fL RDW (11.5-15.5) % Plt Count (150-450) k/uL Lymphocytes # (1.0-4.8) k/uL Macrocytosis ABG pH (7.35-7.45) ABG pO2 (83-108) mmHg ABG Total CO2 (19-24) mmol/L ABG O2 Saturation (94-97) % Sodium 133 L (137-145) mmol/L BUN 61 H (9-20) mg/dL Creatinine 2.77 H (0.66-1.25) mg/dL Glucose 228 H (74-99) mg/dL POC Glucose (mg/dL) 220 H (70-110) mg/dL Calcium 7.4 L (8.4-10.2) mg/dL Cortisol 70.5 H (3.1-22.4) UG/DL 10/22/23 10/22/23 10/23/23 Range/Units 17:57 23:20 05:02 RBC 2.84 L (4.30-5.90) m/uL Hgb 9.8 L (13.0-17.5) gm/dL Hct 29.6 L (39.0-53.0) % MCV 104.2 H (80.0-100.0) fL RDW 18.5 H (11.5-15.5) % Plt Count 90 L (150-450) k/uL Lymphocytes # 0.8 L (1.0-4.8) k/uL Macrocytosis Marked A ABG pH (7.35-7.45) ABG pO2 (83-108) mmHg ABG Total CO2 (19-24) mmol/L ABG O2 Saturation (94-97) % Sodium (137-145) mmol/L BUN (9-20) mg/dL Creatinine (0.66-1.25) mg/dL Glucose (74-99) mg/dL POC Glucose (mg/dL) 215 H 252 H (70-110) mg/dL Calcium (8.4-10.2) mg/dL Cortisol (3.1-22.4) UG/DL 10/23/23 10/23/23 10/23/23 Range/Units 05:02 05:56 06:23 RBC (4.30-5.90) m/uL Hgb (13.0-17.5) gm/dL Hct (39.0-53.0) % MCV (80.0-100.0) fL RDW (11.5-15.5) % Plt Count (150-450) k/uL Lymphocytes # (1.0-4.8) k/uL Macrocytosis ABG pH 7.47 H (7.35-7.45) ABG pO2 75 L (83-108) mmHg ABG Total CO2 26 H (19-24) mmol/L ABG O2 Saturation 93.9 L (94-97) % Sodium 134 L (137-145) mmol/L BUN 67 H (9-20) mg/dL Creatinine 2.91 H (0.66-1.25) mg/dL Glucose 195 H (74-99) mg/dL POC Glucose (mg/dL) 199 H (70-110) mg/dL Calcium 7.5 L (8.4-10.2) mg/dL Cortisol (3.1-22.4) UG/DL Microbiology - Last 24 Hours (Table) 10/21/23 06:47 Gram Stain - Final Sputum Sputum Culture - Final Pseudomonas aeruginosa 10/21/23 05:13 Blood Culture - Preliminary Blood Assessment and Plan (1) Alcoholic liver disease Narrative/Plan: 63-year-old male with known alcoholic liver disease underlying cirrhosis from the above. Was found nonresponsive and hypoglycemic. He was brought into the emergency department was hypotensive requiring pressors and then became hypoxic requiring intubation. Also patient gets weekly paracentesis last documented paracentesis 10/15/2023 4 to 4.8 L of fluid removed. Patient was also recently transfer to an outside facility for suspected GI bleed. Patient reportedly continues to drink 1-2 drinks weekly. Continue supportive care at this time we will hold off on any paracentesis due to hypotension and pressor support. Will defer diuretics to nephrology. Current Visit: Yes Status: Acute Code(s): K70.9 - ALCOHOLIC LIVER DISEASE, UNSPECIFIED SNOMED Code(s): 95988078 (2) Hypotension Current Visit: Yes Status: Acute Code(s): I95.9 - HYPOTENSION, UNSPECIFIED SNOMED Code(s): 98195429 (3) Thrombocytopenia Current Visit: Yes Status: Acute Code(s): D69.6 - THROMBOCYTOPENIA, UNSPECIFIED SNOMED Code(s): 477922750 (4) Ascites Current Visit: Yes Status: Acute Code(s): R18.8 - OTHER ASCITES SNOMED Code(s): 412772929 (5) History of alcohol abuse Current Visit: No Status: Acute Code(s): F10.11 - ALCOHOL ABUSE, IN REMISSION SNOMED Code(s): 104774205 (6) Hypoglycemia Current Visit: No Status: Acute Code(s): E16.2 - HYPOGLYCEMIA, UNSPECIFIED SNOMED Code(s): 696010150 (7) Hyponatremia Current Visit: No Status: Acute Code(s): E87.1 - HYPO-OSMOLALITY AND HYPONATREMIA SNOMED Code(s): 18888576 (8) Hypoxia Current Visit: No Status: Acute Code(s): R09.02 - HYPOXEMIA SNOMED Code(s): 589651993 (9) SAHARA (acute kidney injury) Narrative/Plan: Nephrology following. Patient with temporary hemodialysis catheter placed currently undergoing hemodialysis. Current Visit: Yes Status: Acute Priority: High Code(s): N17.9 - ACUTE KIDNEY FAILURE, UNSPECIFIED SNOMED Code(s): 26637694 Plan: 1. Continue symptomatic and supportive care 2. Continue ICU management 3. Diuretics per recommendations from nephrology 4. Alcohol abstinence 5. Paracentesis as ordered with fluid studies and cytology 6. Continue IV antibiotics for possible SBP, Rocephin has been discontinued and changed to Zosyn as patient did have positive sputum culture. 7. Daily ammonia 8. Continue lactulose to 30 g twice daily 9. Abdominal x-ray ordered and reviewed. Nonobstructive gas pattern. 10. Further recommendations forthcoming based on clinical course Thank you for this consultation, we will continue to follow. Dr. Tessy Lynch I agree with the dictator's note, documented as a scribe by Светлана Rubin.
--- NOTE | 2023-10-23 13:50 | XR ---
EXAMINATION TYPE: XR abdomen 1V DATE OF EXAM: 10/23/2023 HISTORY: Pain. Technique: 2 views of the abdomen are submitted. Comparison: None. Findings: NG tube is noted to be in place. Contrast is seen within the gastric fundus. Left femoral venous line noted. There is no convincing evidence of pneumoperitoneum. The Bowel gas pattern is nonspecific and nonobstructive. No sizable air-fluid levels are seen. No mass effects are noted. No renal calcifications are identified. IMPRESSION: 1. Nonspecific nonobstructive bowel gas pattern
[2023-10-23] MEDS: HYDROCORTISONE SUCCINATE 100 MG/2 ML VIAL IV SCH (16:22)
[2023-10-23] MEDS: PIPERACILLIN-TAZOBACTAM 3.375 GM in SODIUM CHLORIDE 0.9% 100 ML IVPB SCH (16:22)
[2023-10-23 17:15] LABS: Glucose,Whole Blood 196 mg/dL (70-110)
[2023-10-23 21:13] LABS: Glucose,Whole Blood 116 mg/dL (70-110)
[2023-10-23] MEDS: INSULIN DETEMIR (LEVEMIR) 100 UNIT/ML SYR SQ SCH (22:48)
[2023-10-23 22:49] LABS: Glucose,Whole Blood 115 mg/dL (70-110)
[2023-10-23 23:55] LABS: Glucose,Whole Blood 121 mg/dL (70-110)
[2023-10-24 05:33] LABS: Glucose,Whole Blood 209 mg/dL (70-110)
[2023-10-24 06:05] LABS: Anisocytosis Slight; Basophils % (A) 0 %; Eosinophils % (A) 0 %; HCT 30.2 % (39.0-53.0); HGB 9.7 gm/dL (13.0-17.5); Hypochromasia Slight; Lymphocytes # (A) 0.3 k/uL (1.0-4.8); Lymphocytes % (A) 7 %; MCH 33.8 pg (25.0-35.0); MCV 105.6 fL (80.0-100.0); Macrocytosis Marked; Mean Platelet Volume 10.5; Monocytes # (A) 0.2 k/uL (0-1.0); Monocytes % (A) 4 %; Neutrophils # (A) 4.1 k/uL (1.3-7.7); Neutrophils % (A) 88 %; RBC 2.86 m/uL (4.30-5.90); RDW 18.4 % (11.5-15.5); WBC 4.7 k/uL (3.8-10.6)
[2023-10-24 06:07] LABS: Platelet Count 56 k/uL (150-450)
[2023-10-24 06:41] LABS: ALT 22 U/L (4-49); AST 20 U/L (17-59); African American GFR (CKD) 28 (>60 ml/min/1.73 sqM); Albumin 2.6 g/dL (3.5-5.0); Alkaline Phosphatase 102 U/L (38-126); Anion Gap 9 mmol/L; Blood Urea Nitrogen 55 mg/dL (9-20); Calcium 7.4 mg/dL (8.4-10.2); Carbon Dioxide 23 mmol/L (22-30); Chloride 99 mmol/L (98-107); Glucose 167 mg/dL (74-99); Non-African American GFR(CKD) 24 (>60 ml/min/1.73 sqM); Potassium 4.7 mmol/L (3.5-5.1); Sodium 131 mmol/L (137-145); Total Bilirubin 0.6 mg/dL (0.2-1.3); Total Protein 5.4 g/dL (6.3-8.2)
[2023-10-24 06:45] LABS: ABG Base Excess 2.3 mmol/L; ABG HCO3 26 mmol/L (21-25); ABG Oxygen Saturation 94.5 % (94-97); ABG PCO2 36 mmHg (35-45); ABG PH 7.47 (7.35-7.45); ABG PO2 77 mmHg (83-108); ABG TCO2 27 mmol/L (19-24); Allen Test Performed? Yes
--- NOTE | 2023-10-24 09:40 | XR ---
EXAMINATION TYPE: XR chest 1V portable DATE OF EXAM: 10/24/2023 Comparison: 10/22/2013 Clinical History: 63-year-old male Tube placement Findings: ET tube tip approximately 2.5 cm from the raman. Right T10 cavoatrial junction. NG tube courses belo w the diaphragm. Mild interstitial and vascular prominence persists. Hazy bibasilar opacities suggest s partially layering small pleural effusions. Impression: Consider CHF with mild pulmonary vascular congestion. Similar to possibly minimally improved. The yusef iupright view shows small partially layering pleural effusions.
[2023-10-24] MEDS: METOCLOPRAMIDE 5 MG/ML 2 ML VIAL IVP SCH (11:27)
--- NOTE | 2023-10-24 11:28 | P.PN ---
Subjective Patient is seen in follow-up for acute kidney injury. Started on hemodialysis October 21, 2023. Oliguric. Intubated. Potassium level normal. Tolerating dialysis well. On Levophed. Paracentesis pending. Vital signs are stable. On vasopressor support. General: Resting in bed. HEENT: Intubated. LUNGS: Scattered rhonchi. HEART: Rate and Rhythm are regular. ABDOMEN: Distention noted. EXTREMITITES: 2+ edema. Objective - Vital Signs Vital signs: Vital Signs Temp 97.8 F 10/24/23 08:00 Pulse 57 L 10/24/23 11:00 Resp 22 10/24/23 11:00 BP 98/60 10/24/23 11:00 Pulse Ox 97 10/24/23 11:00 FiO2 50 10/24/23 10:52 Intake & Output 10/23/23 10/24/23 10/24/23 18:59 06:59 18:59 Intake Total 1236.708 790.528 228.573 Output Total 2065 180 95 Balance -828.292 610.528 133.573 Weight 112 kg Intake: IV 185 180 60 .9NS KVO 185 180 60 Intake, IV Titration 457.708 500.528 138.573 Amount Norepinephrine 4 mg In 172.909 195.204 38.573 Sodium Chloride 0.9% 250 ml @ 0.03 MCG/KG/MIN 9. 332 mls/hr IV .Q24H [facility] Rx#:[id number] Piperacillin-Tazobactam 3 100 100 .375 gm In Sodium Chloride 0.9% 100 ml @ 25 mls/hr IVPB Q8HR [facility] Rx# :[id number] cefTRIAXone 1 gm In 50 Sodium Chloride 0.9% 50 ml @ 100 mls/hr IVPB Q24HR [facility] Rx#:[id number] propofoL 1,000 mg In 234.799 205.324 Empty Bag 1 bag @ 65 MCG/ KG/MIN 31.842 mls/hr IV . Q3H9M [facility] Rx#:[id number] Tube Feeding 34 80 30 Hemodialysis 500 Other 60 30 Output: Urine 65 180 95 Hemodialysis 2000 Other: Voiding Method Indwelling Catheter Indwelling Catheter Indwelling Catheter ABP, PAP, CO, CI - Last Documented Arterial Blood Pressure 101/67 - Labs CBC & Chem 7: 10/24/23 05:49 10/24/23 05:49 Labs: Abnormal Lab Results - Last 24 Hours (Table) 10/23/23 10/23/23 10/23/23 Range/Units 11:41 17:14 21:12 RBC (4.30-5.90) m/uL Hgb (13.0-17.5) gm/dL Hct (39.0-53.0) % MCV (80.0-100.0) fL RDW (11.5-15.5) % Plt Count (150-450) k/uL Lymphocytes # (1.0-4.8) k/uL Macrocytosis ABG pH (7.35-7.45) ABG pO2 (83-108) mmHg ABG HCO3 (21-25) mmol/L ABG Total CO2 (19-24) mmol/L Sodium (137-145) mmol/L BUN (9-20) mg/dL Creatinine (0.66-1.25) mg/dL Glucose (74-99) mg/dL POC Glucose (mg/dL) 146 H 196 H 116 H (70-110) mg/dL Calcium (8.4-10.2) mg/dL Total Protein (6.3-8.2) g/dL Albumin (3.5-5.0) g/dL 10/23/23 10/23/23 10/24/23 Range/Units 22:47 23:54 05:30 RBC (4.30-5.90) m/uL Hgb (13.0-17.5) gm/dL Hct (39.0-53.0) % MCV (80.0-100.0) fL RDW (11.5-15.5) % Plt Count (150-450) k/uL Lymphocytes # (1.0-4.8) k/uL Macrocytosis ABG pH (7.35-7.45) ABG pO2 (83-108) mmHg ABG HCO3 (21-25) mmol/L ABG Total CO2 (19-24) mmol/L Sodium (137-145) mmol/L BUN (9-20) mg/dL Creatinine (0.66-1.25) mg/dL Glucose (74-99) mg/dL POC Glucose (mg/dL) 115 H 121 H 209 H (70-110) mg/dL Calcium (8.4-10.2) mg/dL Total Protein (6.3-8.2) g/dL Albumin (3.5-5.0) g/dL 10/24/23 10/24/23 10/24/23 Range/Units 05:49 05:49 06:20 RBC 2.86 L (4.30-5.90) m/uL Hgb 9.7 L (13.0-17.5) gm/dL Hct 30.2 L (39.0-53.0) % MCV 105.6 H (80.0-100.0) fL RDW 18.4 H (11.5-15.5) % Plt Count 56 L (150-450) k/uL Lymphocytes # 0.3 L (1.0-4.8) k/uL Macrocytosis Marked A ABG pH 7.47 H (7.35-7.45) ABG pO2 77 L (83-108) mmHg ABG HCO3 26 H (21-25) mmol/L ABG Total CO2 27 H (19-24) mmol/L Sodium 131 L (137-145) mmol/L BUN 55 H (9-20) mg/dL Creatinine 2.73 H (0.66-1.25) mg/dL Glucose 167 H (74-99) mg/dL POC Glucose (mg/dL) (70-110) mg/dL Calcium 7.4 L (8.4-10.2) mg/dL Total Protein 5.4 L (6.3-8.2) g/dL Albumin 2.6 L (3.5-5.0) g/dL Microbiology - Last 24 Hours (Table) 10/21/23 05:13 Blood Culture - Preliminary Blood 10/21/23 06:47 Gram Stain - Final Sputum Sputum Culture - Final Pseudomonas aeruginosa Assessment and Plan Plan: Assessment: 1. Acute kidney injury secondary to ATN secondary to septic shock. Creatinine 3.54 on admission. Creatinine as low as 1.02 dated 10/01/23. Started on hemodialysis October 21, 2023 due to volume overload and hyperkalemia. Oliguric. No hydronephrosis noted on ultrasound. 2. Septic shock. Possibly SBP. On IV antibiotics. On Levophed. 3. Metabolic acidosis secondary to acute kidney injury. Improved postdialysis. 4. Hypervolemic hyponatremia. 5. Volume overload. 6. Alcohol induced liver cirrhosis. 7. Acute hypoxic respiratory failure. Intubated. 8. Diabetes mellitus with hypoglycemia. Blood sugars now on the higher side. 9. Chronic diastolic CHF with moderate mitral regurgitation. 10. History of adrenal insufficiency. Currently on IV Solu-Cortef. 11. Hyperphosphatemia secondary to acute kidney injury. On PhosLo. Plan: Currently seen while undergoing hemodialysis. Continue with daily dialysis. Maintain IV Lasix. Maintain midodrine. Paracentesis pending. 25 g IV albumin pre and post paracentesis. Receiving tube feeds. Follow-up cultures. Avoid nephrotoxins. Wean FiO2 and vasopressors. Continue to monitor renal function and urine output.
[2023-10-24 11:31] LABS: Glucose,Whole Blood 141 mg/dL (70-110)
[2023-10-24] MEDS: ALBUMIN HUMAN 25% 50 ML in EMPTY BAG 1 BAG IVPB SCH ×2 (11:32→15:45)
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
--- NOTE | 2023-10-24 13:50 | P.PN ---
Subjective Progress Note Date: 10/24/23 Patient is a 63-year-old male with known liver disease requiring weekly paracentesis, recently diagnosed hepatorenal syndrome, adrenal insufficiency, diabetes, COPD, and coronary artery disease who presented to the ER via EMS after being found unresponsive at home. In the ER he underwent extensive evalua tion. On arrival he was hypothermic and hypoglycemic with a blood sugar of 47 despite treatment by EMS. Initial labs in the ER included CBC, coags, CMP, TSH, troponin, BNP, and ABG which were remarkable for hemoglobin 10, platelet count 79, pH 7.2, bicarb 18, sodium 132, potassium 5.3, BUN 87, creatinine 3.54 up from 2.15 most recently, magnesium 2.5, BNP 6340, and TSH of 5.680. Initial chest x-ray as reviewed by myself shows significant right-sided pleural effusion with increased pulmonary vascular congestion. In the ER he was started on D5 half normal due to his persistent hypoglycemia, these were warmed fluids to help with his hypothermia. Patient became more and more dyspneic. He ultimately required vasopressors due to prolonged hypotension, and intubation due to worsening respiratory distress from IV fluids. He was started on propofol and norepinephrine. Critical care was consulted. Arrangements were made for admission to the ICU. He was transitioned to D10 wiht sodium bicarb. He was seen by nephrology and required emergent HD for hyperkalemia and acidosis. Now off of bicarb drip. Still requiring hemodialysis. Patient seen and examined at bedside. Sedated on vent. No acute events overnight. Pending paracentesis today. Charles catheter in place. Vital signs reviewed General: Nontoxic, no distress, appears at stated age Cardiovascular: S1S2 reg, no murmur Lungs: Course bs bilateral, no rhonchi, no rales, no accessory muscle use, on vent Abdominal: Tense abdomen, nontender to palpation, no guarding Ext: No gross muscle atrophy, 2+ edema b/l lower extremities, no contractures Neuro: sedated on vent Psych: sedated on vent Assessment/Plan: Acute hypoxic respiratory failure secondary to decompensated cirrhosis Acute metabolic encephalopathy secondary to above Shock, possibly septic Thrombocytopenia -ICU note reviewed, continue mechanical ventilation, continue vasopressors, and propofol. Likely paracentesis today, HIT Panel ordered -GI following -IV Zosyn 3.375 g every 8 hours - hold home aldactone and lisinopril due to hypotension - hold remeron and xanax as patient is currently on vent Acute kidney injury, probable hepatorenal disease, improving Chronic kidney disease stage III Hyerpvolemia hyponatremia Hyperkalemia, resolved Meatbolic acidosis, resolved Hyperphosphatemia, secondary to SAHARA - Nephrology note reviewed: Continue with IV Lasix and midodrine. Administer albumin with paracentesis., Also started on Reglan 5 IV every 6 hours due to high residuals - S/P emergeContinue hemodialysisor strict I's and O's - Lasix 80 mg IVP daily - Midodrine 10 mg 3 times daily, octreotide 50 mcg subcutaneous 3 times daily Insulin dependent diabetes Prolonged hypoglycemia in an insulin-dependent diabetic, resolved -Continue Levemir 5 untis at night - SSI q 6 hours, monitor for hypoglycemia - follow BS Adrenal insufficiency now with shock -Patient is on hydrocortisone at home -Solu-Cortef to 50 mg IV every 8 hours Chronic: Coronary artery disease COPD without exacerbation Anemia of chronic disease Alcoholic cirrhosis Imaging: Chest x-ray as reviewed by myself reveals bilateral trace pleural effusions with increased pulmonary vascular congestion Data Review: WBC 4.7, hemoglobin 9.7, platelet 56, sodium 131, creatinine 2.73, sugars range between 1 41-200 DVT prophylaxis: SCDs Anticipated discharge date: Pending Clinical Course Anticipated discharge place: Pending Clinical Course Objective - Vital Signs Vital signs: Vital Signs Temp 97.8 F 10/24/23 12:00 Pulse 57 L 10/24/23 13:00 Resp 22 10/24/23 13:00 BP 131/72 10/24/23 13:00 Pulse Ox 91 L 10/24/23 13:00 FiO2 50 10/24/23 12:00 Intake & Output 10/23/23 10/24/23 10/24/23 18:59 06:59 18:59 Intake Total 1236.708 790.528 423.000 Output Total 2065 180 110 Balance -828.292 610.528 313.000 Weight 112 kg Intake: IV 185 180 75 .9NS KVO 185 180 75 Intake, IV Titration 457.708 500.528 318.000 Amount Norepinephrine 4 mg In 172.909 195.204 118.000 Sodium Chloride 0.9% 250 ml @ 0.03 MCG/KG/MIN 9. 332 mls/hr IV .Q24H [facility] Rx#:[id number] Piperacillin-Tazobactam 3 100 100 .375 gm In Sodium Chloride 0.9% 100 ml @ 25 mls/hr IVPB Q8HR [facility] Rx# :[id number] cefTRIAXone 1 gm In 50 Sodium Chloride 0.9% 50 ml @ 100 mls/hr IVPB Q24HR [facility] Rx#:[id number] propofoL 1,000 mg In 234.799 205.324 100 Empty Bag 1 bag @ 65 MCG/ KG/MIN 31.842 mls/hr IV . Q3H9M [facility] Rx#:[id number] Tube Feeding 34 80 30 Hemodialysis 500 Other 60 30 Output: Urine 65 180 110 Hemodialysis 2000 Other: Voiding Method Indwelling Catheter Indwelling Catheter Indwelling Catheter ABP, PAP, CO, CI - Last Documented Arterial Blood Pressure 101/67 - Labs CBC & Chem 7: 10/24/23 05:49 10/24/23 05:49 Labs: Abnormal Lab Results - Last 24 Hours (Table) 10/23/23 10/23/23 10/23/23 Range/Units 17:14 21:12 22:47 RBC (4.30-5.90) m/uL Hgb (13.0-17.5) gm/dL Hct (39.0-53.0) % MCV (80.0-100.0) fL RDW (11.5-15.5) % Plt Count (150-450) k/uL Lymphocytes # (1.0-4.8) k/uL Macrocytosis ABG pH (7.35-7.45) ABG pO2 (83-108) mmHg ABG HCO3 (21-25) mmol/L ABG Total CO2 (19-24) mmol/L Sodium (137-145) mmol/L BUN (9-20) mg/dL Creatinine (0.66-1.25) mg/dL Glucose (74-99) mg/dL POC Glucose (mg/dL) 196 H 116 H 115 H (70-110) mg/dL Calcium (8.4-10.2) mg/dL Total Protein (6.3-8.2) g/dL Albumin (3.5-5.0) g/dL 10/23/23 10/24/23 10/24/23 Range/Units 23:54 05:30 05:49 RBC 2.86 L (4.30-5.90) m/uL Hgb 9.7 L (13.0-17.5) gm/dL Hct 30.2 L (39.0-53.0) % MCV 105.6 H (80.0-100.0) fL RDW 18.4 H (11.5-15.5) % Plt Count 56 L (150-450) k/uL Lymphocytes # 0.3 L (1.0-4.8) k/uL Macrocytosis Marked A ABG pH (7.35-7.45) ABG pO2 (83-108) mmHg ABG HCO3 (21-25) mmol/L ABG Total CO2 (19-24) mmol/L Sodium (137-145) mmol/L BUN (9-20) mg/dL Creatinine (0.66-1.25) mg/dL Glucose (74-99) mg/dL POC Glucose (mg/dL) 121 H 209 H (70-110) mg/dL Calcium (8.4-10.2) mg/dL Total Protein (6.3-8.2) g/dL Albumin (3.5-5.0) g/dL 10/24/23 10/24/23 10/24/23 Range/Units 05:49 06:20 11:29 RBC (4.30-5.90) m/uL Hgb (13.0-17.5) gm/dL Hct (39.0-53.0) % MCV (80.0-100.0) fL RDW (11.5-15.5) % Plt Count (150-450) k/uL Lymphocytes # (1.0-4.8) k/uL Macrocytosis ABG pH 7.47 H (7.35-7.45) ABG pO2 77 L (83-108) mmHg ABG HCO3 26 H (21-25) mmol/L ABG Total CO2 27 H (19-24) mmol/L Sodium 131 L (137-145) mmol/L BUN 55 H (9-20) mg/dL Creatinine 2.73 H (0.66-1.25) mg/dL Glucose 167 H (74-99) mg/dL POC Glucose (mg/dL) 141 H (70-110) mg/dL Calcium 7.4 L (8.4-10.2) mg/dL Total Protein 5.4 L (6.3-8.2) g/dL Albumin 2.6 L (3.5-5.0) g/dL Microbiology - Last 24 Hours (Table) 10/21/23 05:13 Blood Culture - Preliminary Blood 10/21/23 06:47 Gram Stain - Final Sputum Sputum Culture - Final Pseudomonas aeruginosa
--- NOTE | 2023-10-24 15:43 | P.PN ---
Subjective Progress Note Date: 10/24/23 Principal diagnosis: Decompensated cirrhosis of the liver Patient is a 63-year-old male with known alcoholic apparently patient also continues to drink 1-2 drinks weekly liver disease requiring weekly paracentesis, recent acute kidney injury, adrenal insufficiency, diabetes, COPD, and coronary artery disease who presented to the ER via EMS after being found unresponsive at home. HPI is obtained from chart. On arrival he was hypothermic and hypoglycemic with a blood sugar of 47 despite treatment by EMS. Initial labs in the ER included CBC, coags, CMP, TSH, troponin, BNP, and ABG which were remarkable for hemoglobin 10, platelet count 79, pH 7.2, bicarb 18, sodium 132, potassium 5.3, BUN 87, creatinine 3.54 up from 2.15 most recently, magnesium 2.5, BNP 6340, and TSH of 5.680. Initial chest x-ray shows significant right-sided pleural effusion with increased pulmonary vascular congestion. In the ER he was started on D5 half normal due to his persistent hypoglycemia, these were warmed fluids to help with his hypothermia. Patient became more and more dyspneic. He ultimately required vasopressors due to prolonged hypotension, and intubation due to worsening respiratory distress from IV fluids. He was started on propofol and norepinephrine. Critical care was consulted and he was admitted to the ICU. Patient is currently admitted to the ICU he is sedated and on mechanical ventilation. Apparently prior to the patient coming into the emergency department he was watching the [employer] game and around midnight he wanted a snack however did not he did then around 1 AM was found on the floor next to his recliner. EMS was called and he was brought into the emergency department. He was recently hospitalized and discharged to [facility] which he was then discharged from there about 8 days ago. Apparently patient has been drinking 1- 2 drinks weekly but has a significant history of heavy alcohol use in the past. 10/22/2023 Patient seen and examined as a follow-up today in the ICU. He remains sedated and intubated. Patient noted to have acute kidney injury and was started on hemodialysis. Currently undergoing hemodialysis at this time. Today's labs WBC 5.2 hemoglobin 9.9 hematocrit 31 platelet count 98,000 sodium 132 potassium 5.5 BUN 74 creatinine 3.1 glucose 245 calcium 7.4 phosphorus 9.0 total bilirubin 0.6 AST 29 ALT 27 alkaline phosphatase 113 10/23/2023 Patient seen and examined as a follow-up in the ICU. He remains sedated and intubated on mechanical ventilation. Patient has increased abdominal distenti on. He has OG tube in place. Underwent dialysis yesterday. No reported bowel movement according to his nurse. However ammonia level improving and latest is 11. Final sputum culture with Pseudomonas aeruginosa. Primary team has ordered ultrasound for paracentesis. Fluid studies and culture ordered. He is currently on octreotide. He was switched from Rocephin to Zosyn. He remains afebrile 10/24/2023 Patient seen and examined as a follow-up. He remains in the ICU intubated on mechanical ventilation. Good urine output. He is scheduled for dialysis as well as paracentesis today. He still has not had any bowel movement despite being given his lactulose. He was started on Reglan. Ammonia level has been normal. WBC 4.7 hemoglobin 9.7 platelet count 56,000 sodium 131 potassium 4.7 B UN 55 creatinine 2.7 total bilirubin 0.6 AST 20 ALT 22 alkaline phosphatase 102 ammonia less than 9. He is on IV Lasix, remains on midodrine scheduled to get 25 g IV albumin pre and post paracentesis. Tube feedings are being decreased due to high residuals. Objective - Vital Signs Vital signs: Vital Signs Temp 97.1 F L 10/24/23 14:41 Pulse 87 10/24/23 15:34 Resp 22 10/24/23 14:41 BP 105/65 10/24/23 14:41 Pulse Ox 99 10/24/23 14:41 FiO2 50 10/24/23 15:31 Intake & Output 10/23/23 10/24/23 10/24/23 18:59 06:59 18:59 Intake Total 1236.708 748.017 1860.000 Output Total 2065 180 2930 Balance -828.292 610.528 -1777.000 Weight 112 kg Intake: IV 185 180 105 .9NS KVO 185 180 105 Intake, IV Titration 457.708 500.528 318.000 Amount Norepinephrine 4 mg In 172.909 195.204 118.000 Sodium Chloride 0.9% 250 ml @ 0.03 MCG/KG/MIN 9. 332 mls/hr IV .Q24H [facility] Rx#:[id number] Piperacillin-Tazobactam 3 100 100 .375 gm In Sodium Chloride 0.9% 100 ml @ 25 mls/hr IVPB Q8HR [facility] Rx# :[id number] cefTRIAXone 1 gm In 50 Sodium Chloride 0.9% 50 ml @ 100 mls/hr IVPB Q24HR [facility] Rx#:[id number] propofoL 1,000 mg In 234.799 205.324 100 Empty Bag 1 bag @ 65 MCG/ KG/MIN 31.842 mls/hr IV . Q3H9M [facility] Rx#:[id number] Tube Feeding 34 80 30 Hemodialysis 500 700 Other 60 30 Output: Urine 65 180 130 Hemodialysis 2000 2800 Other: Voiding Method Indwelling Catheter Indwelling Catheter Indwelling Catheter ABP, PAP, CO, CI - Last Documented Arterial Blood Pressure 101/67 - Exam General appearance: The patient is sedated and intubated. s. HET: Head is normocephalic and atraumatic. Conjunctiva pink. Sclera anicteric. Neck: Supple without lymphadenopathy. Abdomen: Soft, nondistended. No guarding or rigidity. Extremities: Normal skin color and turgor. Pedal edema. Skin: No rashes, no jaundice Neurological: Sedated and intubated. - Labs CBC & Chem 7: 10/24/23 05:49 10/24/23 05:49 Labs: Abnormal Lab Results - Last 24 Hours (Table) 10/23/23 10/23/23 10/23/23 Range/Units 17:14 21:12 22:47 RBC (4.30-5.90) m/uL Hgb (13.0-17.5) gm/dL Hct (39.0-53.0) % MCV (80.0-100.0) fL RDW (11.5-15.5) % Plt Count (150-450) k/uL Lymphocytes # (1.0-4.8) k/uL Macrocytosis ABG pH (7.35-7.45) ABG pO2 (83-108) mmHg ABG HCO3 (21-25) mmol/L ABG Total CO2 (19-24) mmol/L Sodium (137-145) mmol/L BUN (9-20) mg/dL Creatinine (0.66-1.25) mg/dL Glucose (74-99) mg/dL POC Glucose (mg/dL) 196 H 116 H 115 H (70-110) mg/dL Calcium (8.4-10.2) mg/dL Total Protein (6.3-8.2) g/dL Albumin (3.5-5.0) g/dL 10/23/23 10/24/23 10/24/23 Range/Units 23:54 05:30 05:49 RBC 2.86 L (4.30-5.90) m/uL Hgb 9.7 L (13.0-17.5) gm/dL Hct 30.2 L (39.0-53.0) % MCV 105.6 H (80.0-100.0) fL RDW 18.4 H (11.5-15.5) % Plt Count 56 L (150-450) k/uL Lymphocytes # 0.3 L (1.0-4.8) k/uL Macrocytosis Marked A ABG pH (7.35-7.45) ABG pO2 (83-108) mmHg ABG HCO3 (21-25) mmol/L ABG Total CO2 (19-24) mmol/L Sodium (137-145) mmol/L BUN (9-20) mg/dL Creatinine (0.66-1.25) mg/dL Glucose (74-99) mg/dL POC Glucose (mg/dL) 121 H 209 H (70-110) mg/dL Calcium (8.4-10.2) mg/dL Total Protein (6.3-8.2) g/dL Albumin (3.5-5.0) g/dL 10/24/23 10/24/23 10/24/23 Range/Units 05:49 06:20 11:29 RBC (4.30-5.90) m/uL Hgb (13.0-17.5) gm/dL Hct (39.0-53.0) % MCV (80.0-100.0) fL RDW (11.5-15.5) % Plt Count (150-450) k/uL Lymphocytes # (1.0-4.8) k/uL Macrocytosis ABG pH 7.47 H (7.35-7.45) ABG pO2 77 L (83-108) mmHg ABG HCO3 26 H (21-25) mmol/L ABG Total CO2 27 H (19-24) mmol/L Sodium 131 L (137-145) mmol/L BUN 55 H (9-20) mg/dL Creatinine 2.73 H (0.66-1.25) mg/dL Glucose 167 H (74-99) mg/dL POC Glucose (mg/dL) 141 H (70-110) mg/dL Calcium 7.4 L (8.4-10.2) mg/dL Total Protein 5.4 L (6.3-8.2) g/dL Albumin 2.6 L (3.5-5.0) g/dL Microbiology - Last 24 Hours (Table) 10/21/23 05:13 Blood Culture - Preliminary Blood Assessment and Plan (1) Alcoholic liver disease Narrative/Plan: 63-year-old male with known alcoholic liver disease underlying cirrhosis from the above. Was found nonresponsive and hypoglycemic. He was brought into the emergency department was hypotensive requiring pressors and then became hypoxic requiring intubation. Also patient gets weekly paracentesis last documented paracentesis 10/15/2023 4 to 4.8 L of fluid removed. Patient was also recently transfer to an outside facility for suspected GI bleed. Patient reportedly continues to drink 1-2 drinks weekly. Continue supportive care at this time we will hold off on any paracentesis due to hypotension and pressor support. Will defer diuretics to nephrology. Current Visit: Yes Status: Acute Code(s): K70.9 - ALCOHOLIC LIVER DISEASE, UNSPECIFIED SNOMED Code(s): 49657147 (2) Hypotension Current Visit: Yes Status: Acute Code(s): I95.9 - HYPOTENSION, UNSPECIFIED SNOMED Code(s): 45009808 (3) Thrombocytopenia Current Visit: Yes Status: Acute Code(s): D69.6 - THROMBOCYTOPENIA, UNSPECIFIED SNOMED Code(s): 300487132 (4) Ascites Narrative/Plan: Paracentesis scheduled for today. Give 25 g IV albumin pre and post paracentesis Current Visit: Yes Status: Acute Code(s): R18.8 - OTHER ASCITES SNOMED Code(s): 704498823 (5) History of alcohol abuse Current Visit: No Status: Acute Code(s): F10.11 - ALCOHOL ABUSE, IN REMISSION SNOMED Code(s): 915891475 (6) Hypoglycemia Current Visit: No Status: Acute Code(s): E16.2 - HYPOGLYCEMIA, UNSPECIFIED SNOMED Code(s): 057363554 (7) Hyponatremia Current Visit: No Status: Acute Code(s): E87.1 - HYPO-OSMOLALITY AND HYPONATREMIA SNOMED Code(s): 21633440 (8) Hypoxia Current Visit: No Status: Acute Code(s): R09.02 - HYPOXEMIA SNOMED Code(s): 724113114 (9) SAHARA (acute kidney injury) Narrative/Plan: Nephrology following. Patient with temporary hemodialysis catheter placed currently undergoing hemodialysis. Current Visit: Yes Status: Acute Priority: High Code(s): N17.9 - ACUTE KIDNEY FAILURE, UNSPECIFIED SNOMED Code(s): 82765969 Plan: 1. Continue symptomatic and supportive care 2. Continue ICU management 3. Diuretics per recommendations from nephrology 4. Alcohol abstinence 5. Paracentesis as ordered with fluid studies and cytology. Give albumin 25 g pre and post paracentesis 6. Continue IV antibiotics for possible SBP, Rocephin has been discontinued and changed to Zosyn as patient did have positive sputum culture. 7. Agree with Reglan 8. Continue lactulose to 30 g twice daily 9. Abdominal x-ray ordered and reviewed. Nonobstructive gas pattern 10. Further recommendations forthcoming based on clinical course Thank you for this consultation, we will continue to follow. Dr. Tessy Lynch I agree with the dictator's note, documented as a scribe by Светлана Rubin.
[2023-10-24] MEDS: HEPARIN SODIUM 1,000 UN/ML (10ML VL) IVP ONE (15:47)
[2023-10-24 17:43] LABS: Glucose,Whole Blood 213 mg/dL (70-110)
[2023-10-24 19:59] LABS: Glucose,Whole Blood 217 mg/dL (70-110)
--- NOTE | 2023-10-24 21:10 | PCN ---
DATE OF PROCEDURE: 10/24/2023 PROCEDURE NOTE PREOPERATIVE DIAGNOSIS: Acute on chronic renal failure. PROCEDURE PERFORMED: Placement of a 30 cm dialysis catheter, left femoral approach. DESCRIPTION OF PROCEDURE: This patient had a left femoral catheter placed in the past. The catheter was not working today. We prepped the left groin and guidewire was passed through the catheter. Catheter was removed. Then, we placed a 30 cm dialysis catheter on the top of the guidewire, flushed with heparin saline and hep-locked, secured with 3-0 nylon. The patient tolerated the procedure well. MMODL / IJN: [id number] / MTDD
[2023-10-24 23:32] LABS: Glucose,Whole Blood 231 mg/dL (70-110)
[2023-10-25 04:55] LABS: Anisocytosis Slight; Basophils % (A) 0 %; Eosinophils % (A) 0 %; HCT 24.9 % (39.0-53.0); Hypochromasia Slight; Lymphocytes # (A) 0.3 k/uL (1.0-4.8); Lymphocytes % (A) 8 %; MCH 34.5 pg (25.0-35.0); MCHC 32.4 g/dL (31.0-37.0); MCV 106.7 fL (80.0-100.0); Mean Platelet Volume 9.1; Monocytes # (A) 0.1 k/uL (0-1.0); Monocytes % (A) 3 %; Neutrophils # (A) 3.1 k/uL (1.3-7.7); Neutrophils % (A) 88 %; RBC 2.33 m/uL (4.30-5.90); WBC 3.5 k/uL (3.8-10.6)
[2023-10-25 05:09] LABS: ALT 18 U/L (4-49); AST 17 U/L (17-59); African American GFR (CKD) 32 (>60 ml/min/1.73 sqM); Albumin 2.7 g/dL (3.5-5.0); Alkaline Phosphatase 88 U/L (38-126); Anion Gap 12 mmol/L; Blood Urea Nitrogen 46 mg/dL (9-20); Calcium 7.6 mg/dL (8.4-10.2); Carbon Dioxide 21 mmol/L (22-30); Chloride 102 mmol/L (98-107); Glucose 218 mg/dL (74-99); Non-African American GFR(CKD) 28 (>60 ml/min/1.73 sqM); Potassium 4.3 mmol/L (3.5-5.1); Sodium 135 mmol/L (137-145); Total Bilirubin 0.5 mg/dL (0.2-1.3); Total Protein 5.1 g/dL (6.3-8.2)
[2023-10-25 05:11] LABS: Prothrombin Time 11.2 sec (10.0-12.5)
[2023-10-25 05:21] LABS: T. Protein, Body Fluid Source Ascites; Total Protein, Body Fluid 862 mg/dL
[2023-10-25 05:43] LABS: HGB 8.1 gm/dL (13.0-17.5); Macrocytosis Marked; Platelet Count 41 k/uL (150-450)
[2023-10-25 05:46] LABS: Glucose,Whole Blood 277 mg/dL (70-110)
[2023-10-25 06:39] LABS: ABG Base Excess 1.7 mmol/L; ABG HCO3 25 mmol/L (21-25); ABG Oxygen Saturation 97.7 % (94-97); ABG PCO2 33 mmHg (35-45); ABG PH 7.49 (7.35-7.45); ABG PO2 141 mmHg (83-108); ABG TCO2 26 mmol/L (19-24); Allen Test Performed? Yes
[2023-10-25 07:01] LABS: Appearance,BF Hazy (Clear)
--- NOTE | 2023-10-25 08:12 | XR ---
EXAMINATION TYPE: XR chest 1V portable DATE OF EXAM: 10/25/2023 COMPARISON: 10/24/2023 HISTORY: SOB, Follow Up FINDINGS: Indwelling tubes and catheters are unchanged. No change in bibasilar opacities. Stable appearance of the cardio-mediastinal structures at this time. IMPRESSION: 1. Stable portable chest. Clinical correlation and follow up until resolution is recommended.
[2023-10-25] MEDS: NA PHOS,M-B/NA PHOS,DI-BA 133 ML ENEMA RECTAL STA (08:37)
--- NOTE | 2023-10-25 09:59 | P.PN ---
Subjective Patient is seen in follow-up for acute kidney injury. Started on hemodialysis October 21, 2023. Oliguric. Intubated. Potassium level normal. Tolerating dialysis well. On Levophed. Underwent paracentesis October 24, 2023 with about 6 L drained. Vital signs are stable. On vasopressor support. General: Resting in bed. HEENT: Intubated. LUNGS: Scattered rhonchi. HEART: Rate and Rhythm are regular. ABDOMEN: Distention noted. EXTREMITITES: 2+ edema. Objective - Vital Signs Vital signs: Vital Signs Temp 97.2 F L 10/25/23 08:00 Pulse 64 10/25/23 09:00 Resp 22 10/25/23 09:00 BP 88/54 10/25/23 09:00 Pulse Ox 95 10/25/23 09:00 FiO2 50 10/25/23 08:00 Intake & Output 10/24/23 10/25/23 10/25/23 18:59 06:59 18:59 Intake Total 1622.327 789.766 285.184 Output Total 9590 95 50 Balance -7967.673 694.766 235.184 Weight 108.4 kg Intake: IV 165 215 130 .9NS KVO 165 115 30 Piperacillin-Tazobactam 3 100 100 .375 gm In Sodium Chloride 0.9% 100 ml @ 25 mls/hr IVPB Q8HR [facility] Rx# :[id number] Intake, IV Titration 697.327 311.766 74.184 Amount Albumin Human 25% 50 ml 100 In Empty Bag 1 bag @ 200 mls/hr IVPB Q15M [facility] Rx#: [id number] Norepinephrine 4 mg In 145.481 54.701 15.399 Sodium Chloride 0.9% 250 ml @ 0.03 MCG/KG/MIN 9. 332 mls/hr IV .Q24H [facility] Rx#:[id number] Piperacillin-Tazobactam 3 200 .375 gm In Sodium Chloride 0.9% 100 ml @ 25 mls/hr IVPB Q8HR [facility] Rx# :[id number] propofoL 1,000 mg In 251.846 257.065 58.785 Empty Bag 1 bag @ 65 MCG/ KG/MIN 31.842 mls/hr IV . Q3H9M [facility] Rx#:[id number] Tube Feeding 60 173 51 Hemodialysis 700 Other 90 30 Output: Urine 170 95 50 Hemodialysis 2800 Other 6620 Other: Voiding Method Indwelling Catheter Indwelling Catheter Indwelling Catheter # Bowel Movements 0 ABP, PAP, CO, CI - Last Documented Arterial Blood Pressure 101/67 - Labs CBC & Chem 7: 10/25/23 04:27 10/25/23 04:27 Labs: Abnormal Lab Results - Last 24 Hours (Table) 10/24/23 10/24/23 10/24/23 Range/Units 11:29 14:30 17:42 WBC (3.8-10.6) k/uL RBC (4.30-5.90) m/uL Hgb (13.0-17.5) gm/dL Hct (39.0-53.0) % MCV (80.0-100.0) fL RDW (11.5-15.5) % Plt Count (150-450) k/uL Lymphocytes # (1.0-4.8) k/uL Macrocytosis ABG pH (7.35-7.45) ABG pCO2 (35-45) mmHg ABG pO2 (83-108) mmHg ABG Total CO2 (19-24) mmol/L ABG O2 Saturation (94-97) % Sodium (137-145) mmol/L Carbon Dioxide (22-30) mmol/L BUN (9-20) mg/dL Creatinine (0.66-1.25) mg/dL Glucose (74-99) mg/dL POC Glucose (mg/dL) 141 H 213 H (70-110) mg/dL Calcium (8.4-10.2) mg/dL Total Protein (6.3-8.2) g/dL Albumin (3.5-5.0) g/dL Fluid Appearance Hazy A (Clear) 10/24/23 10/24/23 10/25/23 Range/Units 19:57 23:31 04:27 WBC 3.5 L (3.8-10.6) k/uL RBC 2.33 L (4.30-5.90) m/uL Hgb 8.1 L D (13.0-17.5) gm/dL Hct 24.9 L (39.0-53.0) % MCV 106.7 H (80.0-100.0) fL RDW 18.0 H (11.5-15.5) % Plt Count 41 L (150-450) k/uL Lymphocytes # 0.3 L (1.0-4.8) k/uL Macrocytosis Marked A ABG pH (7.35-7.45) ABG pCO2 (35-45) mmHg ABG pO2 (83-108) mmHg ABG Total CO2 (19-24) mmol/L ABG O2 Saturation (94-97) % Sodium (137-145) mmol/L Carbon Dioxide (22-30) mmol/L BUN (9-20) mg/dL Creatinine (0.66-1.25) mg/dL Glucose (74-99) mg/dL POC Glucose (mg/dL) 217 H 231 H (70-110) mg/dL Calcium (8.4-10.2) mg/dL Total Protein (6.3-8.2) g/dL Albumin (3.5-5.0) g/dL Fluid Appearance (Clear) 10/25/23 10/25/23 10/25/23 Range/Units 04:27 05:44 06:37 WBC (3.8-10.6) k/uL RBC (4.30-5.90) m/uL Hgb (13.0-17.5) gm/dL Hct (39.0-53.0) % MCV (80.0-100.0) fL RDW (11.5-15.5) % Plt Count (150-450) k/uL Lymphocytes # (1.0-4.8) k/uL Macrocytosis ABG pH 7.49 H (7.35-7.45) ABG pCO2 33 L (35-45) mmHg ABG pO2 141 H (83-108) mmHg ABG Total CO2 26 H (19-24) mmol/L ABG O2 Saturation 97.7 H (94-97) % Sodium 135 L (137-145) mmol/L Carbon Dioxide 21 L (22-30) mmol/L BUN 46 H (9-20) mg/dL Creatinine 2.43 H (0.66-1.25) mg/dL Glucose 218 H (74-99) mg/dL POC Glucose (mg/dL) 277 H (70-110) mg/dL Calcium 7.6 L (8.4-10.2) mg/dL Total Protein 5.1 L (6.3-8.2) g/dL Albumin 2.7 L (3.5-5.0) g/dL Fluid Appearance (Clear) Microbiology - Last 24 Hours (Table) 10/21/23 05:13 Blood Culture - Preliminary Blood Assessment and Plan Plan: Assessment: 1. Acute kidney injury secondary to ATN secondary to septic shock. Creatinine 3.54 on admission. Creatinine as low as 1.02 dated 10/01/23. Started on hemodialysis October 21, 2023 due to volume overload and hyperkalemia. Oliguric. No hydronephrosis noted on ultrasound. 2. Septic shock. Possibly SBP. On IV antibiotics. On Levophed. 3. Metabolic acidosis secondary to acute kidney injury. Improved postdialysis. 4. Hypervolemic hyponatremia. Improved. 5. Volume overload. Improving with ultrafiltration. 6. Alcohol induced liver cirrhosis. Patient noted to be pancytopenic. GI following. 7. Acute hypoxic respiratory failure. Intubated. 8. Diabetes mellitus. 9. Chronic diastolic CHF with moderate mitral regurgitation. 10. History of adrenal insufficiency. Currently on IV Solu-Cortef. 11. Hyperphosphatemia secondary to acute kidney injury. On PhosLo. Plan: Currently seen while undergoing hemodialysis. Continue with daily dialysis. Maintain IV Lasix. Maintain midodrine. Status post paracentesis October 24, 2023 with 6.1 L drained. Receiving tube feeds. Follow-up cultures. Avoid nephrotoxins, incl fleet enemas. Wean FiO2 and vasopressors. Continue to monitor renal function and urine output.
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
[2023-10-25] MEDS: ALBUMIN HUMAN 25% 50 ML in EMPTY BAG 1 BAG IVPB SCH (11:49)
--- NOTE | 2023-10-25 11:59 | P.PN ---
Subjective Progress Note Date: 10/25/23 Principal diagnosis: Decompensated cirrhosis of the liver Patient is a 63-year-old male with known alcoholic apparently patient also continues to drink 1-2 drinks weekly liver disease requiring weekly paracentesis, recent acute kidney injury, adrenal insufficiency, diabetes, COPD, and coronary artery disease who presented to the ER via EMS after being found unresponsive at home. HPI is obtained from chart. On arrival he was hypothermic and hypoglycemic with a blood sugar of 47 despite treatment by EMS. Initial labs in the ER included CBC, coags, CMP, TSH, troponin, BNP, and ABG which were remarkable for hemoglobin 10, platelet count 79, pH 7.2, bicarb 18, sodium 132, potassium 5.3, BUN 87, creatinine 3.54 up from 2.15 most recently, magnesium 2.5, BNP 6340, and TSH of 5.680. Initial chest x-ray shows significant right-sided pleural effusion with increased pulmonary vascular congestion. In the ER he was started on D5 half normal due to his persistent hypoglycemia, these were warmed fluids to help with his hypothermia. Patient became more and more dyspneic. He ultimately required vasopressors due to prolonged hypotension, and intubation due to worsening respiratory distress from IV fluids. He was started on propofol and norepinephrine. Critical care was consulted and he was admitted to the ICU. Patient is currently admitted to the ICU he is sedated and on mechanical ventilation. Apparently prior to the patient coming into the emergency department he was watching the [employer] game and around midnight he wanted a snack however did not he did then around 1 AM was found on the floor next to his recliner. EMS was called and he was brought into the emergency department. He was recently hospitalized and discharged to [facility] which he was then discharged from there about 8 days ago. Apparently patient has been drinking 1- 2 drinks weekly but has a significant history of heavy alcohol use in the past. 10/22/2023 Patient seen and examined as a follow-up today in the ICU. He remains sedated and intubated. Patient noted to have acute kidney injury and was started on hemodialysis. Currently undergoing hemodialysis at this time. Today's labs WBC 5.2 hemoglobin 9.9 hematocrit 31 platelet count 98,000 sodium 132 potassium 5.5 BUN 74 creatinine 3.1 glucose 245 calcium 7.4 phosphorus 9.0 total bilirubin 0.6 AST 29 ALT 27 alkaline phosphatase 113 10/23/2023 Patient seen and examined as a follow-up in the ICU. He remains sedated and intubated on mechanical ventilation. Patient has increased abdominal distenti on. He has OG tube in place. Underwent dialysis yesterday. No reported bowel movement according to his nurse. However ammonia level improving and latest is 11. Final sputum culture with Pseudomonas aeruginosa. Primary team has ordered ultrasound for paracentesis. Fluid studies and culture ordered. He is currently on octreotide. He was switched from Rocephin to Zosyn. He remains afebrile 10/24/2023 Patient seen and examined as a follow-up. He remains in the ICU intubated on mechanical ventilation. Good urine output. He is scheduled for dialysis as well as paracentesis today. He still has not had any bowel movement despite being given his lactulose. He was started on Reglan. Ammonia level has been normal. WBC 4.7 hemoglobin 9.7 platelet count 56,000 sodium 131 potassium 4.7 B UN 55 creatinine 2.7 total bilirubin 0.6 AST 20 ALT 22 alkaline phosphatase 102 ammonia less than 9. He is on IV Lasix, remains on midodrine scheduled to get 25 g IV albumin pre and post paracentesis. Tube feedings are being decreased due to high residuals. 10/25/2023 Patient is seen and examined as a follow-up. He remains in the ICU intubated at sedated and on mechanical ventilation. Tube feedings were resumed without any residual. He still has not had any bowel movements. He had a paracentesis yesterday with 6.2 L removed. Objective - Vital Signs Vital signs: Vital Signs Temp 98.6 F 10/25/23 04:00 Pulse 64 10/25/23 07:00 Resp 29 H 10/25/23 07:00 BP 85/52 10/25/23 07:00 Pulse Ox 94 L 10/25/23 07:00 FiO2 50 10/25/23 07:36 Intake & Output 10/24/23 10/25/23 10/25/23 18:59 06:59 18:59 Intake Total 1622.327 789.766 27 Output Total 9590 95 15 Balance -7967.673 694.766 12 Weight 108.4 kg Intake: IV 165 215 10 .9NS KVO 165 115 10 Piperacillin-Tazobactam 3 100 .375 gm In Sodium Chloride 0.9% 100 ml @ 25 mls/hr IVPB Q8HR [facility] Rx# :[id number] Intake, IV Titration 697.327 311.766 Amount Albumin Human 25% 50 ml 100 In Empty Bag 1 bag @ 200 mls/hr IVPB Q15M [facility] Rx#: [id number] Norepinephrine 4 mg In 145.481 54.701 Sodium Chloride 0.9% 250 ml @ 0.03 MCG/KG/MIN 9. 332 mls/hr IV .Q24H [facility] Rx#:[id number] Piperacillin-Tazobactam 3 200 .375 gm In Sodium Chloride 0.9% 100 ml @ 25 mls/hr IVPB Q8HR [facility] Rx# :[id number] propofoL 1,000 mg In 251.846 257.065 Empty Bag 1 bag @ 65 MCG/ KG/MIN 31.842 mls/hr IV . Q3H9M [facility] Rx#:[id number] Tube Feeding 60 173 17 Hemodialysis 700 Other 90 Output: Urine 170 95 15 Hemodialysis 2800 Other 6620 Other: Voiding Method Indwelling Catheter Indwelling Catheter # Bowel Movements 0 ABP, PAP, CO, CI - Last Documented Arterial Blood Pressure 101/67 - Exam General appearance: The patient is sedated and intubated. s. HET: Head is normocephalic and atraumatic. Conjunctiva pink. Sclera anicteric. Neck: Supple without lymphadenopathy. Abdomen: Soft, nondistended. No guarding or rigidity. Extremities: Normal skin color and turgor. Pedal edema. Skin: No rashes, no jaundice Neurological: Sedated and intubated. - Labs CBC & Chem 7: 10/25/23 04:27 10/25/23 04:27 Labs: Abnormal Lab Results - Last 24 Hours (Table) 10/24/23 10/24/23 10/24/23 Range/Units 11:29 14:30 17:42 WBC (3.8-10.6) k/uL RBC (4.30-5.90) m/uL Hgb (13.0-17.5) gm/dL Hct (39.0-53.0) % MCV (80.0-100.0) fL RDW (11.5-15.5) % Plt Count (150-450) k/uL Lymphocytes # (1.0-4.8) k/uL Macrocytosis ABG pH (7.35-7.45) ABG pCO2 (35-45) mmHg ABG pO2 (83-108) mmHg ABG Total CO2 (19-24) mmol/L ABG O2 Saturation (94-97) % Sodium (137-145) mmol/L Carbon Dioxide (22-30) mmol/L BUN (9-20) mg/dL Creatinine (0.66-1.25) mg/dL Glucose (74-99) mg/dL POC Glucose (mg/dL) 141 H 213 H (70-110) mg/dL Calcium (8.4-10.2) mg/dL Total Protein (6.3-8.2) g/dL Albumin (3.5-5.0) g/dL Fluid Appearance Hazy A (Clear) 10/24/23 10/24/23 10/25/23 Range/Units 19:57 23:31 04:27 WBC 3.5 L (3.8-10.6) k/uL RBC 2.33 L (4.30-5.90) m/uL Hgb 8.1 L D (13.0-17.5) gm/dL Hct 24.9 L (39.0-53.0) % MCV 106.7 H (80.0-100.0) fL RDW 18.0 H (11.5-15.5) % Plt Count 41 L (150-450) k/uL Lymphocytes # 0.3 L (1.0-4.8) k/uL Macrocytosis Marked A ABG pH (7.35-7.45) ABG pCO2 (35-45) mmHg ABG pO2 (83-108) mmHg ABG Total CO2 (19-24) mmol/L ABG O2 Saturation (94-97) % Sodium (137-145) mmol/L Carbon Dioxide (22-30) mmol/L BUN (9-20) mg/dL Creatinine (0.66-1.25) mg/dL Glucose (74-99) mg/dL POC Glucose (mg/dL) 217 H 231 H (70-110) mg/dL Calcium (8.4-10.2) mg/dL Total Protein (6.3-8.2) g/dL Albumin (3.5-5.0) g/dL Fluid Appearance (Clear) 10/25/23 10/25/23 10/25/23 Range/Units 04:27 05:44 06:37 WBC (3.8-10.6) k/uL RBC (4.30-5.90) m/uL Hgb (13.0-17.5) gm/dL Hct (39.0-53.0) % MCV (80.0-100.0) fL RDW (11.5-15.5) % Plt Count (150-450) k/uL Lymphocytes # (1.0-4.8) k/uL Macrocytosis ABG pH 7.49 H (7.35-7.45) ABG pCO2 33 L (35-45) mmHg ABG pO2 141 H (83-108) mmHg ABG Total CO2 26 H (19-24) mmol/L ABG O2 Saturation 97.7 H (94-97) % Sodium 135 L (137-145) mmol/L Carbon Dioxide 21 L (22-30) mmol/L BUN 46 H (9-20) mg/dL Creatinine 2.43 H (0.66-1.25) mg/dL Glucose 218 H (74-99) mg/dL POC Glucose (mg/dL) 277 H (70-110) mg/dL Calcium 7.6 L (8.4-10.2) mg/dL Total Protein 5.1 L (6.3-8.2) g/dL Albumin 2.7 L (3.5-5.0) g/dL Fluid Appearance (Clear) Microbiology - Last 24 Hours (Table) 10/21/23 05:13 Blood Culture - Preliminary Blood Assessment and Plan (1) Alcoholic liver disease Narrative/Plan: 63-year-old male with known alcoholic liver disease underlying cirrhosis from the above. Was found nonresponsive and hypoglycemic. He was brought into the emergency department was hypotensive requiring pressors and then became hypoxic requiring intubation. Also patient gets weekly paracentesis last documented paracentesis 10/15/2023 4 to 4.8 L of fluid removed. Patient was also recently transfer to an outside facility for suspected GI bleed. Patient reportedly continues to drink 1-2 drinks weekly. Continue supportive care at this time we will hold off on any paracentesis due to hypotension and pressor support. Will defer diuretics to nephrology. Current Visit: Yes Status: Acute Code(s): K70.9 - ALCOHOLIC LIVER DISEASE, UNSPECIFIED SNOMED Code(s): 36818386 (2) Hypotension Current Visit: Yes Status: Acute Code(s): I95.9 - HYPOTENSION, UNSPECIFIED SNOMED Code(s): 07567707 (3) Thrombocytopenia Current Visit: Yes Status: Acute Code(s): D69.6 - THROMBOCYTOPENIA, UNSPECIFIED SNOMED Code(s): 166042416 (4) Ascites Narrative/Plan: Patient has status post paracentesis with 6.2 L removed Current Visit: Yes Status: Acute Code(s): R18.8 - OTHER ASCITES SNOMED Code(s): 787152166 (5) History of alcohol abuse Current Visit: No Status: Acute Code(s): F10.11 - ALCOHOL ABUSE, IN REMISSION SNOMED Code(s): 465286860 (6) Hypoglycemia Current Visit: No Status: Acute Code(s): E16.2 - HYPOGLYCEMIA, UNSPECIFIED SNOMED Code(s): 066854287 (7) Hyponatremia Current Visit: No Status: Acute Code(s): E87.1 - HYPO-OSMOLALITY AND HYPONATREMIA SNOMED Code(s): 91373462 (8) Hypoxia Current Visit: No Status: Acute Code(s): R09.02 - HYPOXEMIA SNOMED Code(s): 202165361 (9) SAHARA (acute kidney injury) Current Visit: Yes Status: Acute Priority: High Code(s): N17.9 - ACUTE KIDNEY FAILURE, UNSPECIFIED SNOMED Code(s): 03035080 Plan: 1. Continue symptomatic and supportive care 2. Continue ICU management 3. Diuretics per recommendations from nephrology 4. Alcohol abstinence 5. Patient is status post paracentesis 6. Continue IV antibiotics for possible SBP, Rocephin has been discontinued and changed to Zosyn as patient did have positive sputum culture. 7. Agree with Reglan 8. Continue lactulose to 30 g twice daily 9. Enema ordered for patient 10. Recommend outpatient follow-up with gastroenterology Thank you for allowing us to participate in the care of the patient, the GI service will sign off, gastroenterology will not be available at the hospital this weekend and through next week. If further evaluation by gastroenterology is required the patient will need transfer as per the primary team's discretion. Dr. Tessy Lynch I agree with the dictator's note, documented as a scribe by Светлана Rubin.
[2023-10-25] MEDS ORDERED: NA PHOS,M-B/NA PHOS,DI-BA 133 ML ENEMA RECTAL ONE ×2 (12:00→16:00)
[2023-10-25 12:02] LABS: Glucose,Whole Blood 180 mg/dL (70-110)
--- NOTE | 2023-10-25 12:06 | P.PN ---
Subjective Progress Note Date: 10/25/23 Patient is a 63-year-old male with known liver disease requiring weekly paracentesis, recently diagnosed hepatorenal syndrome, adrenal insufficiency, diabetes, COPD, and coronary artery disease who presented to the ER via EMS after being found unresponsive at home. In the ER he underwent extensive evalua tion. On arrival he was hypothermic and hypoglycemic with a blood sugar of 47 despite treatment by EMS. Initial labs in the ER included CBC, coags, CMP, TSH, troponin, BNP, and ABG which were remarkable for hemoglobin 10, platelet count 79, pH 7.2, bicarb 18, sodium 132, potassium 5.3, BUN 87, creatinine 3.54 up from 2.15 most recently, magnesium 2.5, BNP 6340, and TSH of 5.680. Initial chest x-ray as reviewed by myself shows significant right-sided pleural effusion with increased pulmonary vascular congestion. In the ER he was started on D5 half normal due to his persistent hypoglycemia, these were warmed fluids to help with his hypothermia. Patient became more and more dyspneic. He ultimately required vasopressors due to prolonged hypotension, and intubation due to worsening respiratory distress from IV fluids. He was started on propofol and norepinephrine. Critical care was consulted. Arrangements were made for admission to the ICU. He was transitioned to D10 wiht sodium bicarb. He was seen by nephrology and required emergent HD for hyperkalemia and acidosis. Now off of bicarb drip. Still requiring hemodialysis. Patient seen and examined at bedside. Sedated on vent. No acute events overnight. Charles catheter in place. Getting dialysis. Patient was off of norepinephrine, but requires vasopressors for dialysis. Vital signs reviewed General: Nontoxic, no distress, appears at stated age Cardiovascular: S1S2 reg, no murmur Lungs: Course bs bilateral, no rhonchi, no rales, no accessory muscle use, on vent Abdominal: Tense abdomen, nontender to palpation, no guarding Ext: No gross muscle atrophy, 2+ edema b/l lower extremities, no contractures Neuro: sedated on vent Psych: sedated on vent Assessment/Plan: Acute hypoxic respiratory failure secondary to decompensated cirrhosis Acute metabolic encephalopathy secondary to above Shock, possibly septic Bicytopenia, likely in the setting of acute illness as well as liver disease -ICU note reviewed, continue mechanical ventilation, continue vasopressors, and propofol. HIT panel is currently pending. Continue Reglan 5 every 6 hours IV -GI following -IV Zosyn 3.375 g every 8 hours - hold home aldactone and lisinopril due to hypotension - hold remeron and xanax as patient is currently on vent Acute kidney injury, probable hepatorenal disease, improving Chronic kidney disease stage III Hyerpvolemia hyponatremia Hyperkalemia, resolved Meatbolic acidosis, resolved Hyperphosphatemia, secondary to SAHARA - Nephrology note reviewed: 6.1 L drained during paracentesis, continue IV Lasix and midodrine, continue daily dialysis - Lasix 80 mg IVP daily - Midodrine 10 mg 3 times daily, octreotide 50 mcg subcutaneous 3 times daily Insulin dependent diabetes Prolonged hypoglycemia in an insulin-dependent diabetic, resolved -Increase Levemir to 10 untis at night - SSI q 6 hours, monitor for hypoglycemia - follow BS Adrenal insufficiency now with shock -Patient is on hydrocortisone at home -Solu-Cortef to 50 mg IV every 8 hours Chronic: Coronary artery disease COPD without exacerbation Anemia of chronic disease Alcoholic cirrhosis Hypothyroidism Imaging: Chest x-ray as reviewed by myself reveals bilateral trace pleural effusions with increased pulmonary vascular congestion Data Review: WBC 3.5, hemoglobin 8.1, platelet 41, sodium 135, creatinine 2.43, blood sugars range between 217-231, ascitic fluid showed total WBC of 7 DVT prophylaxis: SCDs Anticipated discharge date: Pending Clinical Course Anticipated discharge place: Pending Clinical Course Objective - Vital Signs Vital signs: Vital Signs Temp 97.2 F L 10/25/23 12:00 Pulse 64 10/25/23 12:00 Resp 22 10/25/23 12:00 BP 98/63 10/25/23 12:00 Pulse Ox 94 L 10/25/23 12:00 FiO2 50 10/25/23 12:00 Intake & Output 10/24/23 10/25/23 10/25/23 18:59 06:59 18:59 Intake Total 1622.327 789.766 437.399 Output Total 9590 95 125 Balance -7967.673 694.766 312.399 Weight 108.4 kg 108.4 kg Intake: IV 165 215 160 .9NS KVO 165 115 60 Piperacillin-Tazobactam 3 100 100 .375 gm In Sodium Chloride 0.9% 100 ml @ 25 mls/hr IVPB Q8HR [facility] Rx# :[id number] Intake, IV Titration 697.327 311.766 115.399 Amount Albumin Human 25% 50 ml 100 In Empty Bag 1 bag @ 200 mls/hr IVPB Q15M [facility] Rx#: [id number] Norepinephrine 4 mg In 145.481 54.701 15.399 Sodium Chloride 0.9% 250 ml @ 0.03 MCG/KG/MIN 9. 332 mls/hr IV .Q24H [facility] Rx#:[id number] Piperacillin-Tazobactam 3 200 .375 gm In Sodium Chloride 0.9% 100 ml @ 25 mls/hr IVPB Q8HR [facility] Rx# :[id number] propofoL 1,000 mg In 251.846 257.065 100.000 Empty Bag 1 bag @ 65 MCG/ KG/MIN 31.842 mls/hr IV . Q3H9M [facility] Rx#:[id number] Tube Feeding 60 173 102 Hemodialysis 700 Other 90 60 Output: Urine 170 95 125 Hemodialysis 2800 Other 6620 Other: Voiding Method Indwelling Catheter Indwelling Catheter Indwelling Catheter # Bowel Movements 0 ABP, PAP, CO, CI - Last Documented Arterial Blood Pressure 101/67 - Labs CBC & Chem 7: 10/25/23 04:27 10/25/23 04:27 Labs: Abnormal Lab Results - Last 24 Hours (Table) 10/24/23 10/24/23 10/24/23 Range/Units 14:30 17:42 19:57 WBC (3.8-10.6) k/uL RBC (4.30-5.90) m/uL Hgb (13.0-17.5) gm/dL Hct (39.0-53.0) % MCV (80.0-100.0) fL RDW (11.5-15.5) % Plt Count (150-450) k/uL Lymphocytes # (1.0-4.8) k/uL Macrocytosis ABG pH (7.35-7.45) ABG pCO2 (35-45) mmHg ABG pO2 (83-108) mmHg ABG Total CO2 (19-24) mmol/L ABG O2 Saturation (94-97) % Sodium (137-145) mmol/L Carbon Dioxide (22-30) mmol/L BUN (9-20) mg/dL Creatinine (0.66-1.25) mg/dL Glucose (74-99) mg/dL POC Glucose (mg/dL) 213 H 217 H (70-110) mg/dL Calcium (8.4-10.2) mg/dL Total Protein (6.3-8.2) g/dL Albumin (3.5-5.0) g/dL Fluid Appearance Hazy A (Clear) 10/24/23 10/25/23 10/25/23 Range/Units 23:31 04:27 04:27 WBC 3.5 L (3.8-10.6) k/uL RBC 2.33 L (4.30-5.90) m/uL Hgb 8.1 L D (13.0-17.5) gm/dL Hct 24.9 L (39.0-53.0) % MCV 106.7 H (80.0-100.0) fL RDW 18.0 H (11.5-15.5) % Plt Count 41 L (150-450) k/uL Lymphocytes # 0.3 L (1.0-4.8) k/uL Macrocytosis Marked A ABG pH (7.35-7.45) ABG pCO2 (35-45) mmHg ABG pO2 (83-108) mmHg ABG Total CO2 (19-24) mmol/L ABG O2 Saturation (94-97) % Sodium 135 L (137-145) mmol/L Carbon Dioxide 21 L (22-30) mmol/L BUN 46 H (9-20) mg/dL Creatinine 2.43 H (0.66-1.25) mg/dL Glucose 218 H (74-99) mg/dL POC Glucose (mg/dL) 231 H (70-110) mg/dL Calcium 7.6 L (8.4-10.2) mg/dL Total Protein 5.1 L (6.3-8.2) g/dL Albumin 2.7 L (3.5-5.0) g/dL Fluid Appearance (Clear) 10/25/23 10/25/23 10/25/23 Range/Units 05:44 06:37 12:00 WBC (3.8-10.6) k/uL RBC (4.30-5.90) m/uL Hgb (13.0-17.5) gm/dL Hct (39.0-53.0) % MCV (80.0-100.0) fL RDW (11.5-15.5) % Plt Count (150-450) k/uL Lymphocytes # (1.0-4.8) k/uL Macrocytosis ABG pH 7.49 H (7.35-7.45) ABG pCO2 33 L (35-45) mmHg ABG pO2 141 H (83-108) mmHg ABG Total CO2 26 H (19-24) mmol/L ABG O2 Saturation 97.7 H (94-97) % Sodium (137-145) mmol/L Carbon Dioxide (22-30) mmol/L BUN (9-20) mg/dL Creatinine (0.66-1.25) mg/dL Glucose (74-99) mg/dL POC Glucose (mg/dL) 277 H 180 H (70-110) mg/dL Calcium (8.4-10.2) mg/dL Total Protein (6.3-8.2) g/dL Albumin (3.5-5.0) g/dL Fluid Appearance (Clear) Microbiology - Last 24 Hours (Table) 10/21/23 05:13 Blood Culture - Preliminary Blood
--- NOTE | 2023-10-25 13:17 | US ---
EXAMINATION TYPE: US paracentesis abd w/image DATE OF EXAM: 10/24/2023 2:17 PM CLINICAL INDICATION:Male, 63 years old with history of ascites; COMPARISON: 10/15/2023 ATTENDING: Dr. Bolivar Farley PROCEDURE: Informed consent was obtained. The risks of the procedure were extensively explained incl uding risk of damage to surrounding bowel with perforation and need for additional procedures. Proced ure was performed in the ultrasound procedure suite. Ultrasound imaging of the abdomen demonstrate as citic fluid. An appropriate access site was localized to the left lower abdomen. Timeout was taken pe r protocol. The skin was prepped and draped in the usual sterile fashion and then locally anesthetize d with 1% lidocaine. The peritoneal cavity was then accessed via a 5-Bahamian one-step needle/catheter . Approximately 6200 cc of clear straw-colored fluid was obtained. Samples were sent to the lab for analysis. Postprocedural imaging of the abdomen demonstrate a minimal amount of abdominal fluid. Patient tolerated procedure well without immediate complication. Hemostasis at the procedural site w as obtained with a sterile bandage placed. The patient was monitored in the holding area following th e procedure and was subsequently discharged in stable condition. IMPRESSION: Ultrasound guided paracentesis, with approximately 6200 cc of clear straw-colored fluid drained. Path ology results pending. No immediate complications were evident.
[2023-10-25 18:36] LABS: Glucose,Whole Blood 224 mg/dL (70-110)
[2023-10-25] MEDS: INSULIN DETEMIR (LEVEMIR) 100 UNIT/ML SYR SQ SCH (20:04)
[2023-10-26 00:18] LABS: Glucose,Whole Blood 239 mg/dL (70-110)
[2023-10-26 05:02] LABS: Anisocytosis Slight; Basophils % (A) 0 %; Eosinophils % (A) 0 %; HCT 28.1 % (39.0-53.0); HGB 8.9 gm/dL (13.0-17.5); Hypochromasia Moderate; Lymphocytes # (A) 0.4 k/uL (1.0-4.8); Lymphocytes % (A) 10 %; MCH 34.5 pg (25.0-35.0); MCHC 31.8 g/dL (31.0-37.0); MCV 108.6 fL (80.0-100.0); Macrocytosis Marked; Monocytes # (A) 0.2 k/uL (0-1.0); Monocytes % (A) 4 %; Neutrophils # (A) 3.6 k/uL (1.3-7.7); Neutrophils % (A) 83 %; RBC 2.58 m/uL (4.30-5.90); WBC 4.3 k/uL (3.8-10.6)
[2023-10-26 05:03] LABS: ALT 17 U/L (4-49); AST 24 U/L (17-59); African American GFR (CKD) 39 (>60 ml/min/1.73 sqM); Albumin 2.7 g/dL (3.5-5.0); Alkaline Phosphatase 94 U/L (38-126); Anion Gap 8 mmol/L; Blood Urea Nitrogen 38 mg/dL (9-20); Calcium 7.4 mg/dL (8.4-10.2); Carbon Dioxide 22 mmol/L (22-30); Chloride 102 mmol/L (98-107); Glucose 203 mg/dL (74-99); Non-African American GFR(CKD) 34 (>60 ml/min/1.73 sqM); Phosphorus 6.7 mg/dL (2.5-4.5); Sodium 132 mmol/L (137-145); Total Bilirubin 0.6 mg/dL (0.2-1.3); Total Protein 5.3 g/dL (6.3-8.2)
[2023-10-26 05:08] LABS: Potassium 4.6 mmol/L (3.5-5.1)
[2023-10-26 05:13] LABS: Platelet Count 52 k/uL (150-450)
[2023-10-26 06:29] LABS: ABG Base Excess 1.1 mmol/L; ABG HCO3 25 mmol/L (21-25); ABG Oxygen Saturation 96.9 % (94-97); ABG PCO2 36 mmHg (35-45); ABG PH 7.45 (7.35-7.45); ABG PO2 103 mmHg (83-108); ABG TCO2 26 mmol/L (19-24); Allen Test Performed? Yes
[2023-10-26 06:32] LABS: Glucose,Whole Blood 253 mg/dL (70-110)
--- NOTE | 2023-10-26 08:16 | XR ---
EXAMINATION TYPE: XR chest 1V portable DATE OF EXAM: 10/26/2023 COMPARISON: October 25, 2023 HISTORY: SOB, Follow Up FINDINGS: Indwelling tubes and catheters are unchanged. No change in bibasilar opacities. Stable appearance of the cardio-mediastinal structures at this time. Pleural effusion unchanged. IMPRESSION: 1. Stable portable chest. Clinical correlation and follow up until resolution is recommended.
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
--- NOTE | 2023-10-26 10:11 | P.PN ---
Subjective Progress Note Date: 10/26/23 Patient is seen in follow-up for acute kidney injury. Started on hemodialysis October 21, 2023. Oliguric, remains on ventilator. HD yesterday with 3.5L removed. HD planned again today. Vital signs are stable. On vasopressor support. General: Resting in bed. HEENT: Intubated. LUNGS: Scattered rhonchi. HEART: Rate and Rhythm are regular. ABDOMEN: Distention noted. EXTREMITITES: 2+ edema. Objective - Vital Signs Vital signs: Vital Signs Temp 97.1 F L 10/26/23 04:00 Pulse 62 10/26/23 08:33 Resp 22 10/26/23 07:15 BP 95/61 10/26/23 07:15 Pulse Ox 98 10/26/23 07:15 FiO2 50 10/26/23 08:23 Intake & Output 10/25/23 10/26/23 10/26/23 18:59 06:59 18:59 Intake Total 3914.792 0124.906 105.3 Output Total 3680 145 15 Balance -2394.599 866.906 90.3 Weight 108.4 kg 104.5 kg Intake: IV 320 220 10 .9NS KVO 120 120 10 Piperacillin-Tazobactam 3 200 100 .375 gm In Sodium Chloride 0.9% 100 ml @ 25 mls/hr IVPB Q8HR [facility] Rx# :[id number] Intake, IV Titration 271.401 227.906 78.3 Amount Norepinephrine 4 mg In 81.141 50.813 Sodium Chloride 0.9% 250 ml @ 0.03 MCG/KG/MIN 9. 332 mls/hr IV .Q24H [facility] Rx#:[id number] propofoL 1,000 mg In 190.260 177.093 78.3 Empty Bag 1 bag @ 65 MCG/ KG/MIN 31.842 mls/hr IV . Q3H9M [facility] Rx#:[id number] Tube Feeding 204 204 17 Hemodialysis 400 Other 90 360 Output: Urine 180 145 15 Hemodialysis 3500 Other: Voiding Method Indwelling Catheter Indwelling Catheter ABP, PAP, CO, CI - Last Documented Arterial Blood Pressure 101/67 - Labs CBC & Chem 7: 10/26/23 04:26 10/26/23 04:26 Labs: Abnormal Lab Results - Last 24 Hours (Table) 10/25/23 10/25/23 10/26/23 Range/Units 12:00 18:34 00:17 RBC (4.30-5.90) m/uL Hgb (13.0-17.5) gm/dL Hct (39.0-53.0) % MCV (80.0-100.0) fL RDW (11.5-15.5) % Plt Count (150-450) k/uL Lymphocytes # (1.0-4.8) k/uL Macrocytosis ABG Total CO2 (19-24) mmol/L Sodium (137-145) mmol/L BUN (9-20) mg/dL Creatinine (0.66-1.25) mg/dL Glucose (74-99) mg/dL POC Glucose (mg/dL) 180 H 224 H 239 H (70-110) mg/dL Calcium (8.4-10.2) mg/dL Phosphorus (2.5-4.5) mg/dL Total Protein (6.3-8.2) g/dL Albumin (3.5-5.0) g/dL 10/26/23 10/26/23 10/26/23 Range/Units 04:26 04:26 06:28 RBC 2.58 L (4.30-5.90) m/uL Hgb 8.9 L (13.0-17.5) gm/dL Hct 28.1 L (39.0-53.0) % MCV 108.6 H (80.0-100.0) fL RDW 18.0 H (11.5-15.5) % Plt Count 52 L (150-450) k/uL Lymphocytes # 0.4 L (1.0-4.8) k/uL Macrocytosis Marked A ABG Total CO2 26 H (19-24) mmol/L Sodium 132 L (137-145) mmol/L BUN 38 H (9-20) mg/dL Creatinine 2.05 H (0.66-1.25) mg/dL Glucose 203 H (74-99) mg/dL POC Glucose (mg/dL) (70-110) mg/dL Calcium 7.4 L (8.4-10.2) mg/dL Phosphorus 6.7 H (2.5-4.5) mg/dL Total Protein 5.3 L (6.3-8.2) g/dL Albumin 2.7 L (3.5-5.0) g/dL 10/26/23 Range/Units 06:30 RBC (4.30-5.90) m/uL Hgb (13.0-17.5) gm/dL Hct (39.0-53.0) % MCV (80.0-100.0) fL RDW (11.5-15.5) % Plt Count (150-450) k/uL Lymphocytes # (1.0-4.8) k/uL Macrocytosis ABG Total CO2 (19-24) mmol/L Sodium (137-145) mmol/L BUN (9-20) mg/dL Creatinine (0.66-1.25) mg/dL Glucose (74-99) mg/dL POC Glucose (mg/dL) 253 H (70-110) mg/dL Calcium (8.4-10.2) mg/dL Phosphorus (2.5-4.5) mg/dL Total Protein (6.3-8.2) g/dL Albumin (3.5-5.0) g/dL Microbiology - Last 24 Hours (Table) 10/24/23 14:30 Gram Stain - Preliminary Ascites Fluid Body Fluid Culture - Preliminary Assessment and Plan Plan: Assessment: 1. Acute kidney injury secondary to ATN secondary to septic shock. Creatinine 3.54 on admission. Creatinine as low as 1.02 dated 10/01/23. Started on hemodialysis October 21, 2023 due to volume overload and hyperkalemia. Oliguric. No hydronephrosis noted on ultrasound. 2. Septic shock. Possibly SBP. On IV antibiotics. On Levophed. 3. Metabolic acidosis secondary to acute kidney injury. Improved postdialysis. 4. Hypervolemic hyponatremia. Improved. 5. Volume overload. Improving with ultrafiltration. 6. Alcohol induced liver cirrhosis. Patient noted to be pancytopenic. GI following. 7. Acute hypoxic respiratory failure. Intubated. 8. Diabetes mellitus. 9. Chronic diastolic CHF with moderate mitral regurgitation. 10. History of adrenal insufficiency. Currently on IV Solu-Cortef. 11. Hyperphosphatemia secondary to acute kidney injury. On PhosLo. Plan: Continue with daily dialysis today then again on Saturday. Maintain IV Lasix. Maintain midodrine. Status post paracentesis October 24, 2023 with 6.1 L drained. Receiving tube feeds. Follow-up cultures. Avoid nephrotoxins, including fleet enemas. Wean FiO2 and vasopressors. Continue to monitor renal function and urine output.
--- NOTE | 2023-10-26 11:09 | P.PN ---
Subjective Progress Note Date: 10/26/23 Patient is a 63-year-old male with known liver disease requiring weekly paracentesis, recently diagnosed hepatorenal syndrome, adrenal insufficiency, diabetes, COPD, and coronary artery disease who presented to the ER via EMS after being found unresponsive at home. In the ER he underwent extensive evalua tion. On arrival he was hypothermic and hypoglycemic with a blood sugar of 47 despite treatment by EMS. Initial labs in the ER included CBC, coags, CMP, TSH, troponin, BNP, and ABG which were remarkable for hemoglobin 10, platelet count 79, pH 7.2, bicarb 18, sodium 132, potassium 5.3, BUN 87, creatinine 3.54 up from 2.15 most recently, magnesium 2.5, BNP 6340, and TSH of 5.680. Initial chest x-ray as reviewed by myself shows significant right-sided pleural effusion with increased pulmonary vascular congestion. In the ER he was started on D5 half normal due to his persistent hypoglycemia, these were warmed fluids to help with his hypothermia. Patient became more and more dyspneic. He ultimately required vasopressors due to prolonged hypotension, and intubation due to worsening respiratory distress from IV fluids. He was started on propofol and norepinephrine. Critical care was consulted. Arrangements were made for admission to the ICU. He was transitioned to D10 wiht sodium bicarb. He was seen by nephrology and required emergent HD for hyperkalemia and acidosis. Now off of bicarb drip. Still requiring hemodialysis. Patient seen and examined at bedside. Sedated on vent. No acute events overnight. Charles catheter in place with minimal urine output. Still requiring norepinephrine. Plan for sedation holiday today. Vital signs reviewed General: Nontoxic, no distress, appears at stated age Cardiovascular: S1S2 reg, no murmur Lungs: Course bs bilateral, no rhonchi, no rales, no accessory muscle use, on vent Abdominal: Tense abdomen, nontender to palpation, no guarding Ext: No gross muscle atrophy, 2+ edema b/l lower extremities, no contractures Neuro: sedated on vent Psych: sedated on vent Assessment/Plan: Acute hypoxic respiratory failure secondary to decompensated cirrhosis Acute metabolic encephalopathy secondary to above Shock, possibly septic Bicytopenia, likely in the setting of acute illness as well as liver disease -ICU note reviewed, continue mechanical ventilation, continue to wean vasopressors, and propofol. HIT panel negative. Continue Reglan 5 every 6 hours IV, sedation holiday, and spontaneous breathing trial -GI following -IV Zosyn 3.375 g every 8 hours - hold home aldactone and lisinopril due to hypotension - hold remeron and xanax as patient is currently on vent Acute kidney injury, probable hepatorenal disease, improving Chronic kidney disease stage III Hyerpvolemia hyponatremia Hyperkalemia, resolved Meatbolic acidosis, resolved Hyperphosphatemia, secondary to SAHARA - Nephrology following - Lasix 80 mg IVP daily - Midodrine 10 mg 3 times daily, octreotide 50 mcg subcutaneous 3 times daily -Status post paracentesis Insulin dependent diabetes Prolonged hypoglycemia in an insulin-dependent diabetic, resolved -Increase Levemir to 15 untis at night - SSI q 6 hours, monitor for hypoglycemia - follow BS Adrenal insufficiency now with shock -Patient is on hydrocortisone at home -Solu-Cortef to 50 mg IV every 8 hours Chronic: Coronary artery disease COPD without exacerbation Anemia of chronic disease Alcoholic cirrhosis Hypothyroidism Imaging: Chest x-ray as reviewed by myself reveals bilateral trace pleural effusions with increased pulmonary vascular congestion Data Review: WBC 4.3, hemoglobin 8.9, platelet 52, pH 7.45, creatinine 2.05, blood sugars range between 203 to 253 DVT prophylaxis: SCDs Anticipated discharge date: Pending Clinical Course Anticipated discharge place: Pending Clinical Course Objective - Vital Signs Vital signs: Vital Signs Temp 97.8 F 10/26/23 08:00 Pulse 56 L 10/26/23 10:00 Resp 22 10/26/23 10:00 BP 103/59 10/26/23 10:00 Pulse Ox 97 10/26/23 10:00 FiO2 50 10/26/23 08:23 Intake & Output 10/25/23 10/26/23 10/26/23 18:59 06:59 18:59 Intake Total 2115.050 3350.906 290.455 Output Total 3680 145 25 Balance -2394.599 866.906 265.455 Weight 108.4 kg 104.5 kg Intake: IV 320 220 100 .9NS KVO 120 120 50 Piperacillin-Tazobactam 3 200 100 50 .375 gm In Sodium Chloride 0.9% 100 ml @ 25 mls/hr IVPB Q8HR [facility] Rx# :[id number] Intake, IV Titration 271.401 227.906 92.455 Amount Norepinephrine 4 mg In 81.141 50.813 14.155 Sodium Chloride 0.9% 250 ml @ 0.03 MCG/KG/MIN 9. 332 mls/hr IV .Q24H [facility] Rx#:[id number] propofoL 1,000 mg In 190.260 177.093 78.3 Empty Bag 1 bag @ 65 MCG/ KG/MIN 31.842 mls/hr IV . Q3H9M [facility] Rx#:[id number] Tube Feeding 204 204 68 Hemodialysis 400 Other 90 360 30 Output: Urine 180 145 25 Hemodialysis 3500 Other: Voiding Method Indwelling Catheter Indwelling Catheter Indwelling Catheter ABP, PAP, CO, CI - Last Documented Arterial Blood Pressure 101/67 - Labs CBC & Chem 7: 10/26/23 04:26 10/26/23 04:26 Labs: Abnormal Lab Results - Last 24 Hours (Table) 10/25/23 10/25/23 10/26/23 Range/Units 12:00 18:34 00:17 RBC (4.30-5.90) m/uL Hgb (13.0-17.5) gm/dL Hct (39.0-53.0) % MCV (80.0-100.0) fL RDW (11.5-15.5) % Plt Count (150-450) k/uL Lymphocytes # (1.0-4.8) k/uL Macrocytosis ABG Total CO2 (19-24) mmol/L Sodium (137-145) mmol/L BUN (9-20) mg/dL Creatinine (0.66-1.25) mg/dL Glucose (74-99) mg/dL POC Glucose (mg/dL) 180 H 224 H 239 H (70-110) mg/dL Calcium (8.4-10.2) mg/dL Phosphorus (2.5-4.5) mg/dL Total Protein (6.3-8.2) g/dL Albumin (3.5-5.0) g/dL 10/26/23 10/26/23 10/26/23 Range/Units 04:26 04:26 06:28 RBC 2.58 L (4.30-5.90) m/uL Hgb 8.9 L (13.0-17.5) gm/dL Hct 28.1 L (39.0-53.0) % MCV 108.6 H (80.0-100.0) fL RDW 18.0 H (11.5-15.5) % Plt Count 52 L (150-450) k/uL Lymphocytes # 0.4 L (1.0-4.8) k/uL Macrocytosis Marked A ABG Total CO2 26 H (19-24) mmol/L Sodium 132 L (137-145) mmol/L BUN 38 H (9-20) mg/dL Creatinine 2.05 H (0.66-1.25) mg/dL Glucose 203 H (74-99) mg/dL POC Glucose (mg/dL) (70-110) mg/dL Calcium 7.4 L (8.4-10.2) mg/dL Phosphorus 6.7 H (2.5-4.5) mg/dL Total Protein 5.3 L (6.3-8.2) g/dL Albumin 2.7 L (3.5-5.0) g/dL 10/26/23 Range/Units 06:30 RBC (4.30-5.90) m/uL Hgb (13.0-17.5) gm/dL Hct (39.0-53.0) % MCV (80.0-100.0) fL RDW (11.5-15.5) % Plt Count (150-450) k/uL Lymphocytes # (1.0-4.8) k/uL Macrocytosis ABG Total CO2 (19-24) mmol/L Sodium (137-145) mmol/L BUN (9-20) mg/dL Creatinine (0.66-1.25) mg/dL Glucose (74-99) mg/dL POC Glucose (mg/dL) 253 H (70-110) mg/dL Calcium (8.4-10.2) mg/dL Phosphorus (2.5-4.5) mg/dL Total Protein (6.3-8.2) g/dL Albumin (3.5-5.0) g/dL Microbiology - Last 24 Hours (Table) 10/24/23 14:30 Gram Stain - Preliminary Ascites Fluid Body Fluid Culture - Preliminary
[2023-10-26 12:50] LABS: Glucose,Whole Blood 185 mg/dL (70-110)
[2023-10-26 18:03] LABS: Glucose,Whole Blood 182 mg/dL (70-110)
[2023-10-26 21:10] LABS: Glucose,Whole Blood 214 mg/dL (70-110)
[2023-10-26] MEDS: SCOPOLAMINE 1 MG/72 HR PATCH TRANSDERM STA (21:21)
[2023-10-26] MEDS: INSULIN DETEMIR (LEVEMIR) 100 UNIT/ML SYR SQ SCH (21:42)
[2023-10-27 00:31] LABS: Glucose,Whole Blood 180 mg/dL (70-110)
[2023-10-27 05:23] LABS: Anisocytosis Slight; HCT 29.7 % (39.0-53.0); HGB 9.6 gm/dL (13.0-17.5); Hypochromasia Moderate; MCH 34.6 pg (25.0-35.0); MCHC 32.2 g/dL (31.0-37.0); MCV 107.6 fL (80.0-100.0); Mean Platelet Volume 9.5; RBC 2.76 m/uL (4.30-5.90); RDW 17.9 % (11.5-15.5); WBC 5.5 k/uL (3.8-10.6)
[2023-10-27 05:27] LABS: Macrocytosis Marked; Platelet Count 76 k/uL (150-450)
[2023-10-27 05:29] LABS: African American GFR (CKD) 40 (>60 ml/min/1.73 sqM); Anion Gap 8 mmol/L; Blood Urea Nitrogen 32 mg/dL (9-20); Calcium 7.9 mg/dL (8.4-10.2); Carbon Dioxide 22 mmol/L (22-30); Chloride 104 mmol/L (98-107); Glucose 152 mg/dL (74-99); Non-African American GFR(CKD) 35 (>60 ml/min/1.73 sqM); Potassium 4.2 mmol/L (3.5-5.1); Sodium 134 mmol/L (137-145)
[2023-10-27 06:11] LABS: Glucose,Whole Blood 145 mg/dL (70-110)
--- NOTE | 2023-10-27 06:16 | XR ---
EXAMINATION TYPE: XR chest 1V DATE OF EXAM: 10/27/2023 CLINICAL HISTORY: For evaluation. TECHNIQUE: Single AP portable semiupright view of the chest is obtained. COMPARISON: Chest x-ray from one day earlier FINDINGS: Interval extubation with removal of endotracheal and orogastric tubes. Stable right commander internal affairs al jugular central venous catheter. Persistent low lung volumes. Cardiac silhouette size stable and within normal limits. Persistent biba silar opacities. Improved left-sided pleural effusion. Suspect stable small tiny right pleural effusi on. Contrast remains present in the stomach. Large staple in the right humeral head is noted. IMPRESSION: Interval extubation. Improved left-sided pleural effusion. Persistent low lung volumes an d bibasilar opacities favoring atelectasis. Persistent small to tiny right pleural effusion.
[2023-10-27] MEDS: IPRATROPIUM-ALBUTEROL 3 ML NEB INHALATION SCH (07:39)
--- NOTE | 2023-10-27 09:00 | P.PN ---
Subjective Progress Note Date: 10/27/23 lucas is seen in follow-up for acute kidney injury. Extubated now, slow to respond. Vital signs are stable. On vasopressor support. General: Resting in bed. HEENT: neck supple LUNGS: Scattered rhonchi. HEART: Rate and Rhythm are regular. ABDOMEN: Distention noted. Objective - Vital Signs Vital signs: Vital Signs Temp 97.9 F 10/27/23 04:00 Pulse 68 10/27/23 07:55 Resp 14 10/27/23 07:00 BP 97/58 10/27/23 07:00 Pulse Ox 98 10/27/23 07:00 FiO2 50 10/26/23 16:00 Intake & Output 10/26/23 10/27/23 10/27/23 18:59 06:59 18:59 Intake Total 1126.872 291.466 20 Output Total 3475 205 35 Balance -2348.128 86.466 -15 Weight 102.1 kg Intake: IV 320 170 20 .9NS KVO 170 120 20 Piperacillin-Tazobactam 3 150 50 .375 gm In Sodium Chloride 0.9% 100 ml @ 25 mls/hr IVPB Q8HR [facility] Rx# :[id number] Intake, IV Titration 227.872 121.466 Amount Norepinephrine 4 mg In 74.661 21.466 Sodium Chloride 0.9% 250 ml @ 0.03 MCG/KG/MIN 9. 332 mls/hr IV .Q24H [facility] Rx#:[id number] Piperacillin-Tazobactam 3 100 .375 gm In Sodium Chloride 0.9% 100 ml @ 25 mls/hr IVPB Q8HR [facility] Rx# :[id number] propofoL 1,000 mg In 153.211 Empty Bag 1 bag @ 65 MCG/ KG/MIN 31.842 mls/hr IV . Q3H9M [facility] Rx#:[id number] Tube Feeding 119 Hemodialysis 400 Other 60 Output: Urine 75 205 35 Hemodialysis 3400 Other: Voiding Method Indwelling Catheter Indwelling Catheter # Bowel Movements 1 ABP, PAP, CO, CI - Last Documented Arterial Blood Pressure 101/67 - Labs CBC & Chem 7: 10/27/23 03:52 10/27/23 03:52 Labs: Abnormal Lab Results - Last 24 Hours (Table) 10/26/23 10/26/23 10/26/23 Range/Units 12:49 18:02 21:08 RBC (4.30-5.90) m/uL Hgb (13.0-17.5) gm/dL Hct (39.0-53.0) % MCV (80.0-100.0) fL RDW (11.5-15.5) % Plt Count (150-450) k/uL Macrocytosis Sodium (137-145) mmol/L BUN (9-20) mg/dL Creatinine (0.66-1.25) mg/dL Glucose (74-99) mg/dL POC Glucose (mg/dL) 185 H 182 H 214 H (70-110) mg/dL Calcium (8.4-10.2) mg/dL Phosphorus (2.5-4.5) mg/dL 10/27/23 10/27/23 10/27/23 Range/Units 00:29 03:52 03:52 RBC 2.76 L (4.30-5.90) m/uL Hgb 9.6 L (13.0-17.5) gm/dL Hct 29.7 L (39.0-53.0) % MCV 107.6 H (80.0-100.0) fL RDW 17.9 H (11.5-15.5) % Plt Count 76 L (150-450) k/uL Macrocytosis Marked A Sodium (137-145) mmol/L BUN (9-20) mg/dL Creatinine (0.66-1.25) mg/dL Glucose (74-99) mg/dL POC Glucose (mg/dL) 180 H (70-110) mg/dL Calcium (8.4-10.2) mg/dL Phosphorus 6.2 H (2.5-4.5) mg/dL 10/27/23 10/27/23 Range/Units 03:52 06:09 RBC (4.30-5.90) m/uL Hgb (13.0-17.5) gm/dL Hct (39.0-53.0) % MCV (80.0-100.0) fL RDW (11.5-15.5) % Plt Count (150-450) k/uL Macrocytosis Sodium 134 L (137-145) mmol/L BUN 32 H (9-20) mg/dL Creatinine 2.00 H (0.66-1.25) mg/dL Glucose 152 H (74-99) mg/dL POC Glucose (mg/dL) 145 H (70-110) mg/dL Calcium 7.9 L (8.4-10.2) mg/dL Phosphorus (2.5-4.5) mg/dL Microbiology - Last 24 Hours (Table) 10/21/23 05:13 Blood Culture - Final Blood 10/24/23 14:30 Gram Stain - Preliminary Ascites Fluid Body Fluid Culture - Preliminary Assessment and Plan Plan: Assessment: 1. Acute kidney injury secondary to ATN secondary to septic shock. Creatinine 3.54 on admission. Creatinine as low as 1.02 dated 10/01/23. Started on hemodialysis October 21, 2023 due to volume overload and hyperkalemia. Oliguric. No hydronephrosis noted on ultrasound. 2. Septic shock. Possibly SBP. On IV antibiotics. On Levophed. 3. Metabolic acidosis secondary to acute kidney injury. Improved postdialysis. 4. Hypervolemic hyponatremia. Improved. 5. Volume overload. Improving with ultrafiltration. 6. Alcohol induced liver cirrhosis. Patient noted to be pancytopenic. GI following. 7. Acute hypoxic respiratory failure. Intubated. 8. Diabetes mellitus. 9. Chronic diastolic CHF with moderate mitral regurgitation. 10. History of adrenal insufficiency. Currently on IV Solu-Cortef. 11. Hyperphosphatemia secondary to acute kidney injury. On PhosLo. Plan: HD planned again Saturday, remains volume overloaded, urine output may be starting to improve. Will monitor for renal recovery. Maintain IV Lasix. Maintain midodrine. Status post paracentesis October 24, 2023 with 6.1 L drained. Blood cultures negative, sputum cultures +pseudomonas Avoid nephrotoxins, including fleet enemas. Wean vasopressors. Continue to monitor renal function and urine output.
--- NOTE | 2023-10-27 10:01 | P.PN ---
Subjective Progress Note Date: 10/27/23 Patient is a 63-year-old male with known liver disease requiring weekly paracentesis, recently diagnosed hepatorenal syndrome, adrenal insufficiency, diabetes, COPD, and coronary artery disease who presented to the ER via EMS after being found unresponsive at home. In the ER he underwent extensive evalua tion. On arrival he was hypothermic and hypoglycemic with a blood sugar of 47 despite treatment by EMS. Initial labs in the ER included CBC, coags, CMP, TSH, troponin, BNP, and ABG which were remarkable for hemoglobin 10, platelet count 79, pH 7.2, bicarb 18, sodium 132, potassium 5.3, BUN 87, creatinine 3.54 up from 2.15 most recently, magnesium 2.5, BNP 6340, and TSH of 5.680. Initial chest x-ray as reviewed by myself shows significant right-sided pleural effusion with increased pulmonary vascular congestion. In the ER he was started on D5 half normal due to his persistent hypoglycemia, these were warmed fluids to help with his hypothermia. Patient became more and more dyspneic. He ultimately required vasopressors due to prolonged hypotension, and intubation due to worsening respiratory distress from IV fluids. He was started on propofol and norepinephrine. Critical care was consulted. Arrangements were made for admission to the ICU. He was transitioned to D10 wiht sodium bicarb. He was seen by nephrology and required emergent HD for hyperkalemia and acidosis. Now off of bicarb drip. Still requiring hemodialysis. Patient now extubated. Patient seen and examined at bedside. No acute events overnight. Still minimal urine output. Charles catheter in place. Patient complaining of itching on his bottom where he has a wound. Unable to swallow. Vital signs reviewed General: Nontoxic, no distress, appears older than at stated age Cardiovascular: S1S2 reg, no murmur Lungs: Course bs bilateral, no rhonchi, no rales, no accessory muscle use Abdominal: Tense abdomen, nontender to palpation, no guarding Ext: No gross muscle atrophy, 2+ edema b/l lower extremities, no contractures Neuro: Alert and oriented x 3 Psych: Cooperative Assessment/Plan: Acute hypoxic respiratory failure secondary to decompensated cirrhosis Acute metabolic encephalopathy secondary to above, resolved Shock, possibly septic Bicytopenia, likely in the setting of acute illness as well as liver disease -ICU following, patient maintained on vasopressors -Consider discontinue vasopressors as patient will continue to have low blood pressure given his end-stage liver disease. -GI following -IV Zosyn 3.375 g every 8 hours - hold home aldactone and lisinopril due to hypotension - hold remeron and xanax as patient is currently on vent Acute kidney injury, probable hepatorenal disease, improving Chronic kidney disease stage III Hyerpvolemia hyponatremia, resolving Hyperkalemia, resolved Meatbolic acidosis, resolved Hyperphosphatemia, secondary to SAHARA - Nephrology following - Lasix 80 mg IVP daily - Midodrine 10 mg 3 times daily, octreotide 50 mcg subcutaneous 3 times daily -Status post paracentesis Insulin dependent diabetes Prolonged hypoglycemia in an insulin-dependent diabetic, resolved -Increase Levemir to 15 untis at night - SSI q 6 hours, monitor for hypoglycemia - follow BS Adrenal insufficiency now with shock -Patient is on hydrocortisone at home -Solu-Cortef to 50 mg IV every 8 hours Chronic: Coronary artery disease COPD without exacerbation Anemia of chronic disease Alcoholic cirrhosis Hypothyroidism Imaging: Chest x-ray as reviewed by myself reveals bilateral trace pleural effusions Data Review: WBC 5.5, hemoglobin 9.6, platelets 76, creatinine 2.0, sodium 134 DVT prophylaxis: SCDs Anticipated discharge date: Pending Clinical Course Anticipated discharge place: Pending Clinical Course Objective - Vital Signs Vital signs: Vital Signs Temp 98.3 F 10/27/23 08:00 Pulse 75 10/27/23 09:00 Resp 14 10/27/23 09:00 BP 97/60 10/27/23 09:00 Pulse Ox 99 10/27/23 09:00 FiO2 50 10/26/23 16:00 Intake & Output 10/26/23 10/27/23 10/27/23 18:59 06:59 18:59 Intake Total 1126.872 291.466 20 Output Total 3475 205 35 Balance -2348.128 86.466 -15 Weight 102.1 kg Intake: IV 320 170 20 .9NS KVO 170 120 20 Piperacillin-Tazobactam 3 150 50 .375 gm In Sodium Chloride 0.9% 100 ml @ 25 mls/hr IVPB Q8HR [facility] Rx# :[id number] Intake, IV Titration 227.872 121.466 Amount Norepinephrine 4 mg In 74.661 21.466 Sodium Chloride 0.9% 250 ml @ 0.03 MCG/KG/MIN 9. 332 mls/hr IV .Q24H [facility] Rx#:[id number] Piperacillin-Tazobactam 3 100 .375 gm In Sodium Chloride 0.9% 100 ml @ 25 mls/hr IVPB Q8HR [facility] Rx# :[id number] propofoL 1,000 mg In 153.211 Empty Bag 1 bag @ 65 MCG/ KG/MIN 31.842 mls/hr IV . Q3H9M [facility] Rx#:[id number] Tube Feeding 119 Hemodialysis 400 Other 60 Output: Urine 75 205 35 Hemodialysis 3400 Other: Voiding Method Indwelling Catheter Indwelling Catheter Indwelling Catheter # Bowel Movements 1 ABP, PAP, CO, CI - Last Documented Arterial Blood Pressure 101/67 - Labs CBC & Chem 7: 10/27/23 03:52 10/27/23 03:52 Labs: Abnormal Lab Results - Last 24 Hours (Table) 10/26/23 10/26/23 10/26/23 Range/Units 12:49 18:02 21:08 RBC (4.30-5.90) m/uL Hgb (13.0-17.5) gm/dL Hct (39.0-53.0) % MCV (80.0-100.0) fL RDW (11.5-15.5) % Plt Count (150-450) k/uL Macrocytosis Sodium (137-145) mmol/L BUN (9-20) mg/dL Creatinine (0.66-1.25) mg/dL Glucose (74-99) mg/dL POC Glucose (mg/dL) 185 H 182 H 214 H (70-110) mg/dL Calcium (8.4-10.2) mg/dL Phosphorus (2.5-4.5) mg/dL 10/27/23 10/27/23 10/27/23 Range/Units 00:29 03:52 03:52 RBC 2.76 L (4.30-5.90) m/uL Hgb 9.6 L (13.0-17.5) gm/dL Hct 29.7 L (39.0-53.0) % MCV 107.6 H (80.0-100.0) fL RDW 17.9 H (11.5-15.5) % Plt Count 76 L (150-450) k/uL Macrocytosis Marked A Sodium (137-145) mmol/L BUN (9-20) mg/dL Creatinine (0.66-1.25) mg/dL Glucose (74-99) mg/dL POC Glucose (mg/dL) 180 H (70-110) mg/dL Calcium (8.4-10.2) mg/dL Phosphorus 6.2 H (2.5-4.5) mg/dL 10/27/23 10/27/23 Range/Units 03:52 06:09 RBC (4.30-5.90) m/uL Hgb (13.0-17.5) gm/dL Hct (39.0-53.0) % MCV (80.0-100.0) fL RDW (11.5-15.5) % Plt Count (150-450) k/uL Macrocytosis Sodium 134 L (137-145) mmol/L BUN 32 H (9-20) mg/dL Creatinine 2.00 H (0.66-1.25) mg/dL Glucose 152 H (74-99) mg/dL POC Glucose (mg/dL) 145 H (70-110) mg/dL Calcium 7.9 L (8.4-10.2) mg/dL Phosphorus (2.5-4.5) mg/dL Microbiology - Last 24 Hours (Table) 10/24/23 14:30 Gram Stain - Preliminary Ascites Fluid Body Fluid Culture - Preliminary 10/21/23 05:13 Blood Culture - Final Blood
[2023-10-27] MEDS ORDERED: METOCLOPRAMIDE 5 MG/ML 2 ML VIAL IVP PRN (10:48)
[2023-10-27 11:42] LABS: Glucose,Whole Blood 88 mg/dL (70-110)
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
[2023-10-27 18:10] LABS: Glucose,Whole Blood 95 mg/dL (70-110)
[2023-10-27 20:43] LABS: Glucose,Whole Blood 103 mg/dL (70-110)
[2023-10-28 00:10] LABS: Glucose,Whole Blood 137 mg/dL (70-110)
[2023-10-28 05:04] LABS: Anisocytosis Slight; Basophils % (A) 0 %; Eosinophils % (A) 1 %; HCT 28.4 % (39.0-53.0); HGB 9.4 gm/dL (13.0-17.5); Hypochromasia Moderate; Lymphocytes # (A) 0.4 k/uL (1.0-4.8); Lymphocytes % (A) 8 %; MCH 35.2 pg (25.0-35.0); MCV 106.6 fL (80.0-100.0); Macrocytosis Marked; Mean Platelet Volume 9.7; Monocytes # (A) 0.2 k/uL (0-1.0); Monocytes % (A) 3 %; Neutrophils # (A) 4.1 k/uL (1.3-7.7); Neutrophils % (A) 86 %; RBC 2.66 m/uL (4.30-5.90); RDW 17.7 % (11.5-15.5); WBC 4.7 k/uL (3.8-10.6)
[2023-10-28 05:07] LABS: Platelet Count 78 k/uL (150-450)
[2023-10-28 05:38] LABS: African American GFR (CKD) 29 (>60 ml/min/1.73 sqM); Anion Gap 10 mmol/L; Blood Urea Nitrogen 43 mg/dL (9-20); Calcium 7.8 mg/dL (8.4-10.2); Carbon Dioxide 23 mmol/L (22-30); Chloride 103 mmol/L (98-107); Glucose 116 mg/dL (74-99); Non-African American GFR(CKD) 25 (>60 ml/min/1.73 sqM); Phosphorus 7.7 mg/dL (2.5-4.5); Potassium 4.4 mmol/L (3.5-5.1); Sodium 136 mmol/L (137-145)
[2023-10-28 05:53] LABS: Glucose,Whole Blood 142 mg/dL (70-110)
--- NOTE | 2023-10-28 07:16 | XR ---
EXAMINATION TYPE: XR chest 1V portable DATE OF EXAM: 10/28/2023 5:18 AM CLINICAL INDICATION:Male, 63 years old with history of ETT, pleural effusion; [facility] COMPARISON: Chest radiographs from 10/27/2023 TECHNIQUE: XR chest 1V portable Frontal view of the chest. FINDINGS: Lungs/Pleura: Bibasilar atelectasis. No evidence for pneumothorax, pleural effusion or focal consolid ation. Pulmonary vascularity: Unremarkable. Heart/mediastinum: Cardiomediastinal silhouette is unremarkable. Musculoskeletal: Degenerative changes of the shoulder joints. Other findings: None Lines/Tubes: Right internal jugular central venous catheter with distal tip at the cavoatrial junction. IMPRESSION: No significant change from prior with a basilar atelectasis.
--- NOTE | 2023-10-28 09:25 | P.PN ---
Subjective Progress Note Date: 10/28/23 10/28/2023, the patient is being seen for a follow-up. 63-year-old male patient with acute respiratory failure related to an underlying aspiration pneumonia with known history of alcoholic liver disease/cirrhosis and liver failure. The patient was extubated on 10/26/2023. Patient is known to have COPD and he grew also Pseudomonas aeruginosa in the sputum. The patient also has chronic liver, chronic kidney disease with an acute kidney injury attributed to ATN knowing that the patient's baseline creatinine 10/01/2023 was 1.02. He was started on hemodialysis on 10/21/2023 due to volume overload and hyperkalemia as the patient was having oliguria. The patient has no significant hydronephrosis., coronary disease, diabetes mellitus, hypothyroidism and history of chronic alcoholism. The patient is currently on 4 weeks of oxygen by nasal cannula. The most recent chest x-ray from 10/27/2023 showed improvement in the left-sided pleural effusion, small lung volumes and bibasilar opacities probably due to atelectasis. Noted the patient also has Pseudomonas in the sputum and the patient is currently on IV Zosyn. Patient remains on pressors and norepinephrine is running at 0.02 mcg/kg/min. Adrenal insufficiency was also suspected and the patient was placed on stress dose hydrocortisone 50 mg every 8 hours. The patient is also on Lasix 80 mg IV daily and Sandostatin 50 mcg every 8 hours subcu and midodrine 10 mg p.o. 3 times daily. Transfer diabetes mellitus, the patient remains on Levemir insulin 15 units in addition to sliding scale coverage. Patient received lactulose 30 g twice a day. The ultrasound-guided paracentesis was done on 10/25/2023 and the patient had a total of 6.2 L of ascitic fluid removed. Most recent echocardiogram was done on 07/05/2024 indicating preserved LV function with moderate degree of mitral regurgitation. The blood cultures during this current admission has been negative. I suspect fluid cultures were also negative. Note that the cell count of the sleep note was low at 7 and there is no clinical indication of SBP. Patient continues to have a soft blood pressure. He was taken off the norepinephrine and earlier this morning, the nursing staff had to put her back for blood pressure drop as his systolic blood pressure dropped and the map was at 56. Currently is on norepinephrine at 0.01 mcg/kg/m he is on 4 L of oxygen by nasal cannula. Swallow evaluation is being repeated to evaluate his swallow and give him his oral medication if possible. Awake and alert and communicating. His white cycles of 4.7 with a hemoglobin of 9.4 and a platelet count of 78. BUN is 43 with a creatinine of 2.64 and a sodium level is at 136 and a potassium level is at 4.4. Urine output is in the order of 2 80 mL over the past 24 hours. Obviously oliguric and the findings on the case and the patient is going to undergo hemodialysis session today. He had the patient's chest x-ray from today shows some atelectatic change in lung bases. No other significant abnormalities noted. His last paracentesis was done on 10/25/2023 and a total of 6.2 L of ascitic fluid was removed. Objective - Vital Signs Vital signs: Vital Signs Temp 97.7 F 10/28/23 08:00 Pulse 70 10/28/23 09:08 Resp 12 10/28/23 09:08 BP 83/59 10/28/23 08:30 Pulse Ox 97 10/28/23 09:02 FiO2 50 10/26/23 16:00 Intake & Output 10/27/23 10/28/23 10/28/23 18:59 06:59 18:59 Intake Total 225.041 242.354 10 Output Total 195 85 5 Balance 30.041 157.354 5 Weight 101.7 kg Intake: IV 130 210 10 .9NS KVO 130 110 10 Piperacillin-Tazobactam 3 100 .375 gm In Sodium Chloride 0.9% 100 ml @ 25 mls/hr IVPB Q8HR [facility] Rx# :[id number] Intake, IV Titration 95.041 32.354 0 Amount Norepinephrine 4 mg In 95.041 32.354 0 Sodium Chloride 0.9% 250 ml @ 0.03 MCG/KG/MIN 9. 332 mls/hr IV .Q24H [facility] Rx#:[id number] Output: Urine 195 85 5 Other: Voiding Method Indwelling Catheter Indwelling Catheter # Bowel Movements 1 ABP, PAP, CO, CI - Last Documented Arterial Blood Pressure 101/67 - Exam Examination General appearance the patient is calm comfortable no acute distress body mass index is 28.9 at 2 L of Oxygen by Nasal Cannula. Head exam was generally normal. There was no scleral icterus or corneal arcus. Mucous membranes were moist. Neck was supple and without jugular venous distension, thyromegaly, or carotid bruits. Carotids were easily palpable bilaterally. There was no adenopathy. Lungs were clear to auscultation and percussion, and with normal diaphragmatic excursion. No wheezes or rales were noted. Cardiac exam revealed the PMI to be normally situated and sized. The rhythm was regular and no extrasystoles were noted during several minutes of auscultation. The first and second heart sounds were normal and physiologic splitting of the second heart sound was noted. There were no murmurs, rubs, clicks, or gallops. Abdomen is distended and the patient has ascites. There is fluid wave and shifting dullness. No direct tenderness or rebound tenderness or guarding Extremities reveal +1-2 pitting edema and there is no cyanosis or clubbing neurologically, the patient is awake and alert and the patient does not have any focal neurological deficit. Cranial nerves are essentially intact. Examination of the skin revealed no evidence of significant rashes, suspicious appearing nevi or other concerning lesions. - Labs CBC & Chem 7: 10/28/23 04:34 10/28/23 04:34 Labs: Abnormal Lab Results - Last 24 Hours (Table) 10/28/23 10/28/23 10/28/23 Range/Units 00:08 04:34 04:34 RBC 2.66 L (4.30-5.90) m/uL Hgb 9.4 L (13.0-17.5) gm/dL Hct 28.4 L (39.0-53.0) % MCV 106.6 H (80.0-100.0) fL MCH 35.2 H (25.0-35.0) pg RDW 17.7 H (11.5-15.5) % Plt Count 78 L (150-450) k/uL Lymphocytes # 0.4 L (1.0-4.8) k/uL Macrocytosis Marked A Sodium 136 L (137-145) mmol/L BUN 43 H (9-20) mg/dL Creatinine 2.64 H (0.66-1.25) mg/dL Glucose 116 H (74-99) mg/dL POC Glucose (mg/dL) 137 H (70-110) mg/dL Calcium 7.8 L (8.4-10.2) mg/dL Phosphorus 7.7 H (2.5-4.5) mg/dL 10/28/23 Range/Units 05:51 RBC (4.30-5.90) m/uL Hgb (13.0-17.5) gm/dL Hct (39.0-53.0) % MCV (80.0-100.0) fL MCH (25.0-35.0) pg RDW (11.5-15.5) % Plt Count (150-450) k/uL Lymphocytes # (1.0-4.8) k/uL Macrocytosis Sodium (137-145) mmol/L BUN (9-20) mg/dL Creatinine (0.66-1.25) mg/dL Glucose (74-99) mg/dL POC Glucose (mg/dL) 142 H (70-110) mg/dL Calcium (8.4-10.2) mg/dL Phosphorus (2.5-4.5) mg/dL Microbiology - Last 24 Hours (Table) 10/24/23 14:30 Gram Stain - Preliminary Ascites Fluid Body Fluid Culture - Preliminary 10/24/23 14:30 Anaerobic Culture - Preliminary Ascites Fluid Assessment and Plan Plan: Acute respiratory failure, secondary to possible aspiration pneumonia, and alcoholic liver disease with alcoholic cirrhosis.Patient was extubated patient is currently on 2 L of oxygen by nasal cannula. Extubation was done on 10/26/2023. Hypotension, multifactorial. This is partly related to septic shock and there may be also a component of adrenal insufficiency the patient remains on high- dose hydrocortisone and the patient is currently on pressors in addition to midodrine Pseudomonas aeruginosa tracheobronchitis/bronchopneumonia. The patient is currently covered with IV Zosyn Liver cirrhosis Ascites with a large-volume paracentesis that was done on 10/25/2023 with a total of 6.2 L of ascitic fluid removal. No evidence of SBP and the cultures are negative History of alcoholism COPD Diabetes mellitus type 2 Coronary artery disease and based on echocardiogram that was done in June 2023, the patient has a preserved LV function with moderate degree of mitral regurgitation Hypothyroidism Non-anion gap metabolic acidosis secondary to renal failure, recovered Anemia of chronic disease Plan Currently on oxygen at 2 L/m nasal cannula the patient's were provided incentive spirometer swallow evaluation to be done today he may likely need a modified barium swallow If he failed his swallow evaluation, the patient is going to need a Dobbhoff catheter as a temporary measure 4 enteral feeding and nutritional support Hemodialysis today as the patient continues to have signs of significant volume overload and ascites Neurologically arousable and awake, he has profound weakness in all 4 extremities Pressors to maintain a mean arterial pressure above 60, currently on low-dose norepinephrine Continue IV Zosyn Hemodialysis today Continue lactulose 30 g twice a day May need another paracentesis with the next 24-48 hours Continue IV Lasix Stress dose hydrocortisone 50 mg IV every 8 hours We'll continue to follow. He is a full code Critical care evaluation, more than 30 minutes Time with Patient: Greater than 30
--- NOTE | 2023-10-28 10:13 | P.PN ---
Subjective Progress Note Date: 10/28/23 Patient is a 63-year-old male with known liver disease requiring weekly paracentesis, recently diagnosed hepatorenal syndrome, adrenal insufficiency, diabetes, COPD, and coronary artery disease who presented to the ER via EMS after being found unresponsive at home. In the ER he underwent extensive evalua tion. On arrival he was hypothermic and hypoglycemic with a blood sugar of 47 despite treatment by EMS. Initial labs in the ER included CBC, coags, CMP, TSH, troponin, BNP, and ABG which were remarkable for hemoglobin 10, platelet count 79, pH 7.2, bicarb 18, sodium 132, potassium 5.3, BUN 87, creatinine 3.54 up from 2.15 most recently, magnesium 2.5, BNP 6340, and TSH of 5.680. Initial chest x-ray as reviewed by myself shows significant right-sided pleural effusion with increased pulmonary vascular congestion. In the ER he was started on D5 half normal due to his persistent hypoglycemia, these were warmed fluids to help with his hypothermia. Patient became more and more dyspneic. He ultimately required vasopressors due to prolonged hypotension, and intubation due to worsening respiratory distress from IV fluids. He was started on propofol and norepinephrine. Critical care was consulted. Arrangements were made for admission to the ICU. He was transitioned to D10 wiht sodium bicarb. He was seen by nephrology and required emergent HD for hyperkalemia and acidosis. Now off of bicarb drip. Still requiring hemodialysis. Patient now extubated. Patient seen and examined at bedside. No acute events overnight. Still minimal urine output. Charles catheter in place. Pending swallow evaluation Vital signs reviewed General: Nontoxic, no distress, appears older than at stated age Cardiovascular: S1S2 reg, no murmur Lungs: Course bs bilateral, no rhonchi, no rales, no accessory muscle use Abdominal: Tense abdomen, nontender to palpation, no guarding Ext: No gross muscle atrophy, 2+ edema b/l lower extremities, no contractures Neuro: Alert and oriented x 3 Psych: Cooperative Assessment/Plan: Acute hypoxic respiratory failure secondary to decompensated cirrhosis Pseudomonas pneumonia Acute metabolic encephalopathy secondary to above, resolved Shock, possibly septic Bicytopenia, likely in the setting of acute illness as well as liver disease -ICU note reviewed, maintain vasopressors to keep MAP above 60, continue IV Zosyn, hemodialysis today, swallow evaluation -GI consulted during this admission -IV Zosyn 3.375 g every 8 hours - hold home aldactone and lisinopril due to hypotension - hold remeron and xanax as patient is currently on vent Acute kidney injury, probable hepatorenal disease Chronic kidney disease stage III Hyerpvolemia hyponatremia, resolving Hyperkalemia, resolved Meatbolic acidosis, resolved Hyperphosphatemia, secondary to SAHARA - Nephrology following - Lasix 80 mg IVP daily - Midodrine 10 mg 3 times daily, octreotide 50 mcg subcutaneous 3 times daily -Status post paracentesis, may need another 1 in 24 to 48 hours Insulin dependent diabetes Prolonged hypoglycemia in an insulin-dependent diabetic, resolved -Levemir 15 untis at night - SSI q 6 hours, monitor for hypoglycemia - follow BS Adrenal insufficiency now with shock -Patient is on hydrocortisone at home -Solu-Cortef to 50 mg IV every 8 hours Chronic: Coronary artery disease COPD without exacerbation Anemia of chronic disease Alcoholic cirrhosis Hypothyroidism Imaging: Chest x-ray as reviewed by myself reveals bilateral trace pleural effusions Data Review: WBC 4.7, hemoglobin 9.4, platelet 78, creatinine 2.64, phosphorus 7.7, blood sugars range between 95-1 42 DVT prophylaxis: SCDs Anticipated discharge date: Pending Clinical Course Anticipated discharge place: Pending Clinical Course Objective - Vital Signs Vital signs: Vital Signs Temp 97.7 F 10/28/23 08:00 Pulse 70 10/28/23 09:08 Resp 12 10/28/23 09:08 BP 89/68 10/28/23 09:00 Pulse Ox 97 10/28/23 09:02 FiO2 50 10/26/23 16:00 Intake & Output 10/27/23 10/28/23 10/28/23 18:59 06:59 18:59 Intake Total 225.041 242.354 130 Output Total 195 85 5 Balance 30.041 157.354 125 Weight 101.7 kg Intake: IV 130 210 130 .9NS KVO 130 110 30 Piperacillin-Tazobactam 3 100 100 .375 gm In Sodium Chloride 0.9% 100 ml @ 25 mls/hr IVPB Q8HR [facility] Rx# :[id number] Intake, IV Titration 95.041 32.354 0 Amount Norepinephrine 4 mg In 95.041 32.354 0 Sodium Chloride 0.9% 250 ml @ 0.03 MCG/KG/MIN 9. 332 mls/hr IV .Q24H [facility] Rx#:[id number] Output: Urine 195 85 5 Other: Voiding Method Indwelling Catheter Indwelling Catheter # Bowel Movements 1 ABP, PAP, CO, CI - Last Documented Arterial Blood Pressure 101/67 - Labs CBC & Chem 7: 10/28/23 04:34 10/28/23 04:34 Labs: Abnormal Lab Results - Last 24 Hours (Table) 10/28/23 10/28/23 10/28/23 Range/Units 00:08 04:34 04:34 RBC 2.66 L (4.30-5.90) m/uL Hgb 9.4 L (13.0-17.5) gm/dL Hct 28.4 L (39.0-53.0) % MCV 106.6 H (80.0-100.0) fL MCH 35.2 H (25.0-35.0) pg RDW 17.7 H (11.5-15.5) % Plt Count 78 L (150-450) k/uL Lymphocytes # 0.4 L (1.0-4.8) k/uL Macrocytosis Marked A Sodium 136 L (137-145) mmol/L BUN 43 H (9-20) mg/dL Creatinine 2.64 H (0.66-1.25) mg/dL Glucose 116 H (74-99) mg/dL POC Glucose (mg/dL) 137 H (70-110) mg/dL Calcium 7.8 L (8.4-10.2) mg/dL Phosphorus 7.7 H (2.5-4.5) mg/dL 10/28/23 Range/Units 05:51 RBC (4.30-5.90) m/uL Hgb (13.0-17.5) gm/dL Hct (39.0-53.0) % MCV (80.0-100.0) fL MCH (25.0-35.0) pg RDW (11.5-15.5) % Plt Count (150-450) k/uL Lymphocytes # (1.0-4.8) k/uL Macrocytosis Sodium (137-145) mmol/L BUN (9-20) mg/dL Creatinine (0.66-1.25) mg/dL Glucose (74-99) mg/dL POC Glucose (mg/dL) 142 H (70-110) mg/dL Calcium (8.4-10.2) mg/dL Phosphorus (2.5-4.5) mg/dL Microbiology - Last 24 Hours (Table) 10/24/23 14:30 Gram Stain - Preliminary Ascites Fluid Body Fluid Culture - Preliminary 10/24/23 14:30 Anaerobic Culture - Preliminary Ascites Fluid
--- NOTE | 2023-10-28 11:17 | P.PN ---
Subjective Patient is seen for follow-up for acute kidney injury. He is maintained on hemodialysis and is scheduled for treatment today. Started hemodialysis on 10/21/2023 for volume overload and worsening renal function. Patient is awake. He is following commands., Mildly short of breath. Remains with significant edema. Objective - Vital Signs Vital signs: Vital Signs Temp 97.7 F 10/28/23 08:00 Pulse 72 10/28/23 10:00 Resp 13 10/28/23 10:00 BP 78/51 10/28/23 10:00 Pulse Ox 98 10/28/23 10:00 FiO2 50 10/26/23 16:00 Intake & Output 10/27/23 10/28/23 10/28/23 18:59 06:59 18:59 Intake Total 225.041 242.354 159.333 Output Total 195 85 25 Balance 30.041 157.354 134.333 Weight 101.7 kg Intake: IV 130 210 150 .9NS KVO 130 110 50 Piperacillin-Tazobactam 3 100 100 .375 gm In Sodium Chloride 0.9% 100 ml @ 25 mls/hr IVPB Q8HR [facility] Rx# :[id number] Intake, IV Titration 95.041 32.354 9.333 Amount Norepinephrine 4 mg In 95.041 32.354 9.333 Sodium Chloride 0.9% 250 ml @ 0.03 MCG/KG/MIN 9. 332 mls/hr IV .Q24H [facility] Rx#:[id number] Output: Urine 195 85 25 Other: Voiding Method Indwelling Catheter Indwelling Catheter # Bowel Movements 1 ABP, PAP, CO, CI - Last Documented Arterial Blood Pressure 101/67 - Exam Patient is awake, no acute distress Answering questions appropriately Examination of the heart S1 and S2 Examination of the lungs shows bilateral breath sounds are heard and decreased breath sounds at the bases Abdomen is soft distended with abdominal wall edema Examination of lower extremities shows edema 2-3+ bilaterally [employer] exam shows patient is moving all 4 extremities. - Labs CBC & Chem 7: 10/28/23 04:34 10/28/23 04:34 Labs: Abnormal Lab Results - Last 24 Hours (Table) 10/28/23 10/28/23 10/28/23 Range/Units 00:08 04:34 04:34 RBC 2.66 L (4.30-5.90) m/uL Hgb 9.4 L (13.0-17.5) gm/dL Hct 28.4 L (39.0-53.0) % MCV 106.6 H (80.0-100.0) fL MCH 35.2 H (25.0-35.0) pg RDW 17.7 H (11.5-15.5) % Plt Count 78 L (150-450) k/uL Lymphocytes # 0.4 L (1.0-4.8) k/uL Macrocytosis Marked A Sodium 136 L (137-145) mmol/L BUN 43 H (9-20) mg/dL Creatinine 2.64 H (0.66-1.25) mg/dL Glucose 116 H (74-99) mg/dL POC Glucose (mg/dL) 137 H (70-110) mg/dL Calcium 7.8 L (8.4-10.2) mg/dL Phosphorus 7.7 H (2.5-4.5) mg/dL 10/28/23 Range/Units 05:51 RBC (4.30-5.90) m/uL Hgb (13.0-17.5) gm/dL Hct (39.0-53.0) % MCV (80.0-100.0) fL MCH (25.0-35.0) pg RDW (11.5-15.5) % Plt Count (150-450) k/uL Lymphocytes # (1.0-4.8) k/uL Macrocytosis Sodium (137-145) mmol/L BUN (9-20) mg/dL Creatinine (0.66-1.25) mg/dL Glucose (74-99) mg/dL POC Glucose (mg/dL) 142 H (70-110) mg/dL Calcium (8.4-10.2) mg/dL Phosphorus (2.5-4.5) mg/dL Microbiology - Last 24 Hours (Table) 10/24/23 14:30 Gram Stain - Preliminary Ascites Fluid Body Fluid Culture - Preliminary 10/24/23 14:30 Anaerobic Culture - Preliminary Ascites Fluid Assessment and Plan Assessment: 1. Acute kidney injury secondary to ATN secondary to septic shock. Creatinine 3.54 on admission. Creatinine as low as 1.02 dated 10/01/23. Started on hemodialysis October 21, 2023 due to volume overload and hyperkalemia. Oliguric. No hydronephrosis noted on ultrasound. 2. Septic shock. Possibly SBP. On IV antibiotics. On Levophed. 3. Metabolic acidosis secondary to acute kidney injury. Improved postdialysis. 4. Hypervolemic hyponatremia. Improved. 5. Volume overload. Improving with ultrafiltration. 6. Alcohol induced liver cirrhosis. Patient noted to be pancytopenic. GI following. 7. Acute hypoxic respiratory failure. Intubated. 8. Diabetes mellitus. 9. Chronic diastolic CHF with moderate mitral regurgitation. 10. History of adrenal insufficiency. Currently on IV Solu-Cortef. 11. Hyperphosphatemia secondary to acute kidney injury. On PhosLo. Plan: Hemodialysis today and repeat in a.m. May DC IV Lasix as no significant increase in urine output noted. Continue with midodrine Continue with Sandostatin as well.
[2023-10-28 12:02] LABS: Glucose,Whole Blood 113 mg/dL (70-110)
[2023-10-28 18:11] LABS: Glucose,Whole Blood 129 mg/dL (70-110)
[2023-10-29 00:06] LABS: Glucose,Whole Blood 128 mg/dL (70-110)
--- NOTE | 2023-10-29 00:14 | XR ---
EXAMINATION TYPE: XR chest 1V portable DATE OF EXAM: 10/29/2023 CLINICAL HISTORY: Dobbhoff placement. TECHNIQUE: Single AP portable upright view of the chest is obtained. COMPARISON: Chest x-ray from earlier today FINDINGS: New Dobbhoff catheter projects below diaphragm extends towards the level of gastric antrum . Contrast in stomach is redemonstrated. Stable right internal jugular central venous catheter. Persistent low lung volumes and bibasilar opacities. Cardiac silhouette size stable and within normal limits. Large clip in the right humeral head is redemonstrated IMPRESSION: Satisfactory interval placement of Dobbhoff catheter.
[2023-10-29 04:38] LABS: Anisocytosis Slight; Basophils % (A) 0 %; Eosinophils % (A) 0 %; HCT 29.8 % (39.0-53.0); HGB 9.6 gm/dL (13.0-17.5); Hypochromasia Slight; Lymphocytes # (A) 0.4 k/uL (1.0-4.8); Lymphocytes % (A) 6 %; MCHC 32.4 g/dL (31.0-37.0); MCV 105.1 fL (80.0-100.0); Mean Platelet Volume 8.9; Monocytes # (A) 0.3 k/uL (0-1.0); Monocytes % (A) 4 %; Neutrophils # (A) 5.3 k/uL (1.3-7.7); Neutrophils % (A) 87 %; RBC 2.83 m/uL (4.30-5.90); RDW 18.1 % (11.5-15.5); WBC 6.1 k/uL (3.8-10.6)
[2023-10-29 04:55] LABS: ALT 37 U/L (4-49); AST 24 U/L (17-59); African American GFR (CKD) 27 (>60 ml/min/1.73 sqM); Albumin 2.7 g/dL (3.5-5.0); Alkaline Phosphatase 95 U/L (38-126); Anion Gap 12 mmol/L; Blood Urea Nitrogen 46 mg/dL (9-20); Calcium 7.7 mg/dL (8.4-10.2); Carbon Dioxide 18 mmol/L (22-30); Chloride 103 mmol/L (98-107); Glucose 144 mg/dL (74-99); Non-African American GFR(CKD) 23 (>60 ml/min/1.73 sqM); Potassium 4.2 mmol/L (3.5-5.1); Sodium 133 mmol/L (137-145); Total Bilirubin 0.8 mg/dL (0.2-1.3); Total Protein 5.4 g/dL (6.3-8.2)
[2023-10-29 05:13] LABS: Macrocytosis Marked; Platelet Count 92 k/uL (150-450)
[2023-10-29 06:10] LABS: Glucose,Whole Blood 168 mg/dL (70-110)
[2023-10-29] MEDS: ACETAMINOPHEN TAB 325 MG TAB PO PRN (09:28)
--- NOTE | 2023-10-29 09:46 | US ---
EXAMINATION TYPE: US abdomen limited DATE OF EXAM: 10/29/2023 COMPARISON: NONE CLINICAL INDICATION: Male, 63 years old with history of evaulate acites fluid; access ascites Mild abdominal ascites noted IMPRESSION: As above
--- NOTE | 2023-10-29 10:28 | P.PN ---
Subjective Progress Note Date: 10/29/23 10/28/2023, the patient is being seen for a follow-up. 63-year-old male patient with acute respiratory failure related to an underlying aspiration pneumonia with known history of alcoholic liver disease/cirrhosis and liver failure. The patient was extubated on 10/26/2023. Patient is known to have COPD and he grew also Pseudomonas aeruginosa in the sputum. The patient also has chronic liver, chronic kidney disease with an acute kidney injury attributed to ATN knowing that the patient's baseline creatinine 10/01/2023 was 1.02. He was started on hemodialysis on 10/21/2023 due to volume overload and hyperkalemia as the patient was having oliguria. The patient has no significant hydronephrosis., coronary disease, diabetes mellitus, hypothyroidism and history of chronic alcoholism. The patient is currently on 4 weeks of oxygen by nasal cannula. The most recent chest x-ray from 10/27/2023 showed improvement in the left-sided pleural effusion, small lung volumes and bibasilar opacities probably due to atelectasis. Noted the patient also has Pseudomonas in the sputum and the patient is currently on IV Zosyn. Patient remains on pressors and norepinephrine is running at 0.02 mcg/kg/min. Adrenal insufficiency was also suspected and the patient was placed on stress dose hydrocortisone 50 mg every 8 hours. The patient is also on Lasix 80 mg IV daily and Sandostatin 50 mcg every 8 hours subcu and midodrine 10 mg p.o. 3 times daily. Transfer diabetes mellitus, the patient remains on Levemir insulin 15 units in addition to sliding scale coverage. Patient received lactulose 30 g twice a day. The ultrasound-guided paracentesis was done on 10/25/2023 and the patient had a total of 6.2 L of ascitic fluid removed. Most recent echocardiogram was done on 07/05/2024 indicating preserved LV function with moderate degree of mitral regurgitation. The blood cultures during this current admission has been negative. I suspect fluid cultures were also negative. Note that the cell count of the sleep note was low at 7 and there is no clinical indication of SBP. Patient continues to have a soft blood pressure. He was taken off the norepinephrine and earlier this morning, the nursing staff had to put her back for blood pressure drop as his systolic blood pressure dropped and the map was at 56. Currently is on norepinephrine at 0.01 mcg/kg/m he is on 4 L of oxygen by nasal cannula. Swallow evaluation is being repeated to evaluate his swallow and give him his oral medication if possible. Awake and alert and communicating. His white cycles of 4.7 with a hemoglobin of 9.4 and a platelet count of 78. BUN is 43 with a creatinine of 2.64 and a sodium level is at 136 and a potassium level is at 4.4. Urine output is in the order of 2 80 mL over the past 24 hours. Obviously oliguric and the findings on the case and the patient is going to undergo hemodialysis session today. He had the patient's chest x-ray from today shows some atelectatic change in lung bases. No other significant abnormalities noted. His last paracentesis was done on 10/25/2023 and a total of 6.2 L of ascitic fluid was removed. On today's evaluation of 10/29/2023, I am seeing the patient for a follow-up. The patient is awake and alert. He was unable to pass a swallow evaluation and based on that the patient was given a Dobbhoff catheter for enteral feeding and nutritional support. He is currently receiving Nepro at a rate of 20 cc an hour and he is able to tolerate enteral feeding and needed to have a bowel movement. Note that the patient is also on lactulose regarding his liver cirrhosis. He is on oxygen at 4 L/min nasal cannula. He underwent hemodialysis yesterday with a total of 3.5 L of ultrafiltration. IV fluids are currently at KVO as the patient continues to have signs of fluid overload. He is on low-dose norepinephrine which is only at 0.04 mcg/kg/min.Meanwhile, his abdomen is felt to be slightly distended and ultrasound of the abdomen to be done today to assess for any ascites. His last paracentesis was done on 10/24/2023 with a total of 6.2 L of fluid being aspirated from his abdominal fluid. The patient's chest x-ray shows small lung volumes and atelectatic changes in the lung bases bilaterally. The patient is a large clip in the right humeral head. The Dobbho ff catheter is in a good location. Meanwhile, the white cell count at 6.1, hemoglobin is at 9.6 and a platelet count of 92. BUN is 46 with a creatinine of 2.8 and his sodium level is at 133 with a potassium level of 4.2. Blood sugar from this morning was at 168. He is communicating. He is profoundly weak still. He seems to be appropriate. He is aware that he is in the hospital. He is aware of his name and his date of . Objective - Vital Signs Vital signs: Vital Signs Temp 98.6 F 10/29/23 04:00 Pulse 56 L 10/29/23 07:30 Resp 15 10/29/23 07:30 BP 106/52 10/29/23 07:30 Pulse Ox 100 10/29/23 07:30 FiO2 50 10/26/23 16:00 Intake & Output 10/28/23 10/29/23 10/29/23 18:59 06:59 18:59 Intake Total 814.458 576.980 39.592 Output Total 3460 95 25 Balance -2645.542 481.980 14.592 Weight 101.7 kg 101 kg Intake: IV 330 210 10 .9NS KVO 130 110 10 Piperacillin-Tazobactam 3 200 100 .375 gm In Sodium Chloride 0.9% 100 ml @ 25 mls/hr IVPB Q8HR [facility] Rx# :[id number] Intake, IV Titration 84.458 216.980 9.592 Amount Norepinephrine 4 mg In 84.458 216.980 9.592 Sodium Chloride 0.9% 250 ml @ 0.03 MCG/KG/MIN 9. 332 mls/hr IV .Q24H [facility] Rx#:[id number] Tube Feeding 120 20 Hemodialysis 400 Other 30 Output: Urine 60 95 25 Hemodialysis 3400 Other: Voiding Method Indwelling Catheter Indwelling Catheter ABP, PAP, CO, CI - Last Documented Arterial Blood Pressure 101/67 - Exam Examination General appearance the patient is calm comfortable no acute distress body mass index is 28.9 at 4 L of oxygen by nasal cannula. The patient has a Dobbhoff catheter in place. Head exam was generally normal. There was no scleral icterus or corneal arcus. Mucous membranes were moist. Neck was supple and without jugular venous distension, thyromegaly, or carotid bruits. Carotids were easily palpable bilaterally. There was no adenopathy. Lungs were clear to auscultation and percussion, and with normal diaphragmatic excursion. No wheezes or rales were noted. Cardiac exam revealed the PMI to be normally situated and sized. The rhythm was regular and no extrasystoles were noted during several minutes of auscultation. The first and second heart sounds were normal and physiologic splitting of the second heart sound was noted. There were no murmurs, rubs, clicks, or gallops. Abdomen is distended and the patient has ascites. There is fluid wave and shifting dullness. No direct tenderness or rebound tenderness or guarding Extremities reveal +1-2 pitting edema and there is no cyanosis or clubbing neurologically, the patient is awake and alert and the patient does not have any focal neurological deficit. Cranial nerves are essentially intact. Examination of the skin revealed no evidence of significant rashes, suspicious appearing nevi or other concerning lesions. - Labs CBC & Chem 7: 10/29/23 03:56 10/29/23 03:56 Labs: Abnormal Lab Results - Last 24 Hours (Table) 10/28/23 10/28/23 10/29/23 Range/Units 12:01 18:10 00:04 RBC (4.30-5.90) m/uL Hgb (13.0-17.5) gm/dL Hct (39.0-53.0) % MCV (80.0-100.0) fL RDW (11.5-15.5) % Plt Count (150-450) k/uL Lymphocytes # (1.0-4.8) k/uL Macrocytosis Sodium (137-145) mmol/L Carbon Dioxide (22-30) mmol/L BUN (9-20) mg/dL Creatinine (0.66-1.25) mg/dL Glucose (74-99) mg/dL POC Glucose (mg/dL) 113 H 129 H 128 H (70-110) mg/dL Calcium (8.4-10.2) mg/dL Total Protein (6.3-8.2) g/dL Albumin (3.5-5.0) g/dL 10/29/23 10/29/23 10/29/23 Range/Units 03:56 03:56 06:08 RBC 2.83 L (4.30-5.90) m/uL Hgb 9.6 L (13.0-17.5) gm/dL Hct 29.8 L (39.0-53.0) % MCV 105.1 H (80.0-100.0) fL RDW 18.1 H (11.5-15.5) % Plt Count 92 L (150-450) k/uL Lymphocytes # 0.4 L (1.0-4.8) k/uL Macrocytosis Marked A Sodium 133 L (137-145) mmol/L Carbon Dioxide 18 L (22-30) mmol/L BUN 46 H (9-20) mg/dL Creatinine 2.82 H (0.66-1.25) mg/dL Glucose 144 H (74-99) mg/dL POC Glucose (mg/dL) 168 H (70-110) mg/dL Calcium 7.7 L (8.4-10.2) mg/dL Total Protein 5.4 L (6.3-8.2) g/dL Albumin 2.7 L (3.5-5.0) g/dL Microbiology - Last 24 Hours (Table) 10/24/23 14:30 Gram Stain - Preliminary Ascites Fluid Body Fluid Culture - Preliminary Assessment and Plan Plan: Acute respiratory failure, secondary to possible aspiration pneumonia, and alcoholic liver disease with alcoholic cirrhosis. Extubation was done on 10/26/2023. The patient is currently on 4 L of oxygen nasal cannula. Hypotension, multifactorial. This is partly related to septic shock and there may be also a component of adrenal insufficiency the patient remains on high- dose hydrocortisone and the patient is currently on pressors in addition to midodrine the patient remains on low-dose norepinephrine which is running at 0.04 mcg/kg/min. Pseudomonas aeruginosa tracheobronchitis/bronchopneumonia. The patient is currently covered with IV Zosyn Liver cirrhosis Ascites with a large-volume paracentesis that was done on 10/25/2023 with a total of 6.2 L of ascitic fluid removal. No evidence of SBP and the cultures are negative, repeat ultrasound of the abdomen is to be done today. Abdomen is slightly distended. History of alcoholism Acute kidney injury secondary to ATN due to septic shock. Patient is according hemodialysis due to volume overload. There is improvement with ultrafiltration. COPD Diabetes mellitus type 2 Coronary artery disease and based on echocardiogram that was done in June 2023, the patient has a preserved LV function with moderate degree of mitral regurgitation Hypothyroidism Non-anion gap metabolic acidosis secondary to renal failure, recovered Anemia of chronic disease Plan Currently on oxygen at 4 L/m nasal cannula, titrate oxygen flow to maintain saturation above 90% the patient's were provided incentive spirometer The patient failed a swallow evaluation and the patient is currently on enteral feeding via Dobbhoff catheter with Nepro Hemodialysis was done yesterday with a total of 3.5 L of ultrafiltration. Neurologically arousable and awake, he has profound weakness in all 4 extremities Pressors to maintain a mean arterial pressure above 60, currently on low-dose norepinephrine Continue IV Zosyn Hemodialysis was done yesterday. Continue lactulose 30 g twice a day May need another paracentesis with the next 24-48 hours Continue IV Lasix Stress dose hydrocortisone 50 mg IV every 8 hours We'll continue to follow. He is a full code Critical care evaluation, more than 30 minutes Time with Patient: Greater than 30
--- NOTE | 2023-10-29 11:01 | P.PN ---
Subjective Patient is seen for follow-up for acute kidney injury. He is maintained on hemodialysis and is seen on hemodialysis. Started hemodialysis on 10/21/2023 for volume overload and worsening renal function. Remains with significant edema. Dobbhoff catheter in place. Remains on very low-dose of Levophed. Shortness of breath slightly improved. Status post UF of 3.4 L yesterday. Objective - Vital Signs Vital signs: Vital Signs Temp 98.6 F 10/29/23 04:00 Pulse 53 L 10/29/23 10:45 Resp 14 10/29/23 10:45 BP 96/62 10/29/23 10:45 Pulse Ox 89 L 10/29/23 10:45 FiO2 50 10/26/23 16:00 Intake & Output 10/28/23 10/29/23 10/29/23 18:59 06:59 18:59 Intake Total 814.458 576.980 69.592 Output Total 3460 95 60 Balance -2645.542 481.980 9.592 Weight 101.7 kg 101 kg Intake: IV 330 210 40 .9NS KVO 130 110 40 Piperacillin-Tazobactam 3 200 100 .375 gm In Sodium Chloride 0.9% 100 ml @ 25 mls/hr IVPB Q8HR [facility] Rx# :[id number] Intake, IV Titration 84.458 216.980 9.592 Amount Norepinephrine 4 mg In 84.458 216.980 9.592 Sodium Chloride 0.9% 250 ml @ 0.03 MCG/KG/MIN 9. 332 mls/hr IV .Q24H [facility] Rx#:[id number] Oral 0 Tube Feeding 120 20 Hemodialysis 400 Other 30 Output: Urine 60 95 60 Hemodialysis 3400 Other: Voiding Method Indwelling Catheter Indwelling Catheter ABP, PAP, CO, CI - Last Documented Arterial Blood Pressure 101/67 - Exam Patient is awake, no acute distress Examination of the heart S1 and S2 Examination of the lungs shows bilateral breath sounds are heard and decreased b reath sounds at the bases Abdomen is soft distended with abdominal wall edema Examination of lower extremities shows edema 2-3+ bilaterally CAFE AIDE exam shows patient is moving all 4 extremities. - Labs CBC & Chem 7: 10/29/23 03:56 10/29/23 03:56 Labs: Abnormal Lab Results - Last 24 Hours (Table) 10/28/23 10/28/2310/29/24 Range/Units 12:01 18:10 00:04 RBC (4.30-5.90) m/uL Hgb (13.0-17.5) gm/dL Hct (39.0-53.0) % MCV (80.0-100.0) fL RDW (11.5-15.5) % Plt Count (150-450) k/uL Lymphocytes # (1.0-4.8) k/uL Macrocytosis Sodium (137-145) mmol/L Carbon Dioxide (22-30) mmol/L BUN (9-20) mg/dL Creatinine (0.66-1.25) mg/dL Glucose (74-99) mg/dL POC Glucose (mg/dL) 113 H 129 H 128 H (70-110) mg/dL Calcium (8.4-10.2) mg/dL Total Protein (6.3-8.2) g/dL Albumin (3.5-5.0) g/dL 10/29/23 10/29/23 10/29/23 Range/Units 03:56 03:56 06:08 RBC 2.83 L (4.30-5.90) m/uL Hgb 9.6 L (13.0-17.5) gm/dL Hct 29.8 L (39.0-53.0) % MCV 105.1 H (80.0-100.0) fL RDW 18.1 H (11.5-15.5) % Plt Count 92 L (150-450) k/uL Lymphocytes # 0.4 L (1.0-4.8) k/uL Macrocytosis Marked A Sodium 133 L (137-145) mmol/L Carbon Dioxide 18 L (22-30) mmol/L BUN 46 H (9-20) mg/dL Creatinine 2.82 H (0.66-1.25) mg/dL Glucose 144 H (74-99) mg/dL POC Glucose (mg/dL) 168 H (70-110) mg/dL Calcium 7.7 L (8.4-10.2) mg/dL Total Protein 5.4 L (6.3-8.2) g/dL Albumin 2.7 L (3.5-5.0) g/dL Microbiology - Last 24 Hours (Table) 10/24/23 14:30 Anaerobic Culture - Final Ascites Fluid 10/24/23 14:30 Gram Stain - Final Ascites Fluid Body Fluid Culture - Final Assessment and Plan Assessment: 1. Acute kidney injury secondary to ATN secondary to septic shock. Creatinine 3.54 on admission. Creatinine as low as 1.02 dated 10/01/23. Started on hem odialysis October 21, 2023 due to volume overload and hyperkalemia. Oliguric. No hydronephrosis noted on ultrasound. 2. Septic shock. Possibly SBP. On IV antibiotics. On Levophed. 3. Metabolic acidosis secondary to acute kidney injury. Improved postdialysis. 4. Hypervolemic hyponatremia. Improved. 5. Volume overload. Improving with ultrafiltration. 6. Alcohol induced liver cirrhosis. Patient noted to be pancytopenic. GI following. 7. Acute hypoxic respiratory failure. Intubated. 8. Diabetes mellitus. 9. Chronic diastolic CHF with moderate mitral regurgitation. 10. History of adrenal insufficiency. Currently on IV Solu-Cortef. 11. Hyperphosphatemia secondary to acute kidney injury. On PhosLo. Plan: Hemodialysis today and repeat in a.m. January DC IV Lasix as no significant increase in urine output noted. Continue with midodrine Continue with Sandostatin as well.
--- NOTE | 2023-10-29 11:27 | P.PN ---
Subjective Progress Note Date: 10/29/23 Patient is a 63-year-old male with known liver disease requiring weekly paracentesis, recently diagnosed hepatorenal syndrome, adrenal insufficiency, diabetes, COPD, and coronary artery disease who presented to the ER via EMS after being found unresponsive at home. In the ER he underwent extensive evalu ation. On arrival he was hypothermic and hypoglycemic with a blood sugar of 47 despite treatment by EMS. Initial labs in the ER included CBC, coags, CMP, TSH, troponin, BNP, and ABG which were remarkable for hemoglobin 10, platelet count 79, pH 7.2, bicarb 18, sodium 132, potassium 5.3, BUN 87, creatinine 3.54 up from 2.15 most recently, magnesium 2.5, BNP 6340, and TSH of 5.680. Initial chest x-ray as reviewed by myself shows significant right-sided pleural effusion with increased pulmonary vascular congestion. In the ER he was started on D5 half normal due to his persistent hypoglycemia, these were warmed fluids to help with his hypothermia. Patient became more and more dyspneic. He ultimately required vasopressors due to prolonged hypotension, and intubation due to worsening respiratory distress from IV fluids. He was started on propofol and norepinephrine. Critical care was consulted. Arrangements were made for admission to the ICU. He was transitioned to D10 wiht sodium bicarb. He was seen by nephrology and required emergent HD for hyperkalemia and acidosis. Now off of bicarb drip. Still requiring hemodialysis. Patient now extubated. Patient seen and examined at bedside. No acute events overnight. Still minimal urine output. Charles catheter in place. Failed swallow study, has a Dobbhoff in place, pending barium swallow study Vital signs reviewed General: Nontoxic, no distress, appears older than at stated age Cardiovascular: S1S2 reg, no murmur Lungs: Course bs bilateral, no rhonchi, no rales, no accessory muscle use Abdominal: Tense abdomen, nontender to palpation, no guarding Ext: No gross muscle atrophy, 2+ edema b/l lower extremities, no contractures Neuro: Alert and oriented x 3 Psych: Cooperative Assessment/Plan: Acute hypoxic respiratory failure secondary to decompensated cirrhosis Pseudomonas pneumonia Acute metabolic encephalopathy secondary to above, resolved Shock, possibly septic Bicytopenia, likely in the setting of acute illness as well as liver disease -ICU note reviewed, maintain vasopressors to keep MAP above 60, continue IV Zosyn, continue Dobbhoff, may need barium swallow study -IV Zosyn 3.375 g every 8 hours - hold home aldactone and lisinopril due to hypotension - hold remeron and xanax as patient is currently on vent Acute kidney injury, probable hepatorenal disease Chronic kidney disease stage III Hyerpvolemia hyponatremia, resolving Hyperkalemia, resolved Meatbolic acidosis, resolved Hyperphosphatemia, secondary to SAHARA - Nephrology note reviewed, Lasix discontinued as there is minimal output, continue hemodialysis today and tomorrow - Midodrine 10 mg 3 times daily, octreotide 50 mcg subcutaneous 3 times daily -Status post paracentesis, may need another 1 in 24 to 48 hours Insulin dependent diabetes Prolonged hypoglycemia in an insulin-dependent diabetic, resolved -Levemir 15 untis at night - SSI q 6 hours, monitor for hypoglycemia - follow BS Adrenal insufficiency now with shock -Patient is on hydrocortisone at home -Solu-Cortef to 50 mg IV every 8 hours Chronic: Coronary artery disease COPD without exacerbation Anemia of chronic disease Alcoholic cirrhosis Hypothyroidism Imaging: Chest x-ray as reviewed by myself reveals bilateral trace pleural effusions Abdominal ultrasound shows mild abdominal ascites. Data Review: WBC 6.1, hemoglobin 9.6, platelet 92, sodium 133, creatinine 2.82, blood sugars range between 1 28-1 68 DVT prophylaxis: SCDs Anticipated discharge date: Pending Clinical Course Anticipated discharge place: Pending Clinical Course Objective - Vital Signs Vital signs: Vital Signs Temp 98.4 F 10/29/23 08:00 Pulse 52 L 10/29/23 11:15 Resp 21 10/29/23 11:15 BP 94/69 10/29/23 11:15 Pulse Ox 93 L 10/29/23 11:15 FiO2 50 10/26/23 16:00 Intake & Output 10/28/23 10/29/23 10/29/23 18:59 06:59 18:59 Intake Total 814.458 576.980 179.592 Output Total 3460 95 61 Balance -2645.542 481.980 118.592 Weight 101.7 kg 101 kg Intake: IV 330 210 50 .9NS KVO 130 110 50 Piperacillin-Tazobactam 3 200 100 .375 gm In Sodium Chloride 0.9% 100 ml @ 25 mls/hr IVPB Q8HR [facility] Rx# :[id number] Intake, IV Titration 84.458 216.980 9.592 Amount Norepinephrine 4 mg In 84.458 216.980 9.592 Sodium Chloride 0.9% 250 ml @ 0.03 MCG/KG/MIN 9. 332 mls/hr IV .Q24H [facility] Rx#:[id number] Oral 0 Tube Feeding 120 120 Hemodialysis 400 Other 30 Output: Urine 60 95 61 Hemodialysis 3400 Other: Voiding Method Indwelling Catheter Indwelling Catheter Indwelling Catheter # Bowel Movements 2 ABP, PAP, CO, CI - Last Documented Arterial Blood Pressure 101/67 - Labs CBC & Chem 7: 10/29/23 03:56 10/29/23 03:56 Labs: Abnormal Lab Results - Last 24 Hours (Table) 10/28/23 10/28/23 10/29/23 Range/Units 12:01 18:10 00:04 RBC (4.30-5.90) m/uL Hgb (13.0-17.5) gm/dL Hct (39.0-53.0) % MCV (80.0-100.0) fL RDW (11.5-15.5) % Plt Count (150-450) k/uL Lymphocytes # (1.0-4.8) k/uL Macrocytosis Sodium (137-145) mmol/L Carbon Dioxide (22-30) mmol/L BUN (9-20) mg/dL Creatinine (0.66-1.25) mg/dL Glucose (74-99) mg/dL POC Glucose (mg/dL) 113 H 129 H 128 H (70-110) mg/dL Calcium (8.4-10.2) mg/dL Total Protein (6.3-8.2) g/dL Albumin (3.5-5.0) g/dL 10/29/23 10/29/23 10/29/23 Range/Units 03:56 03:56 06:08 RBC 2.83 L (4.30-5.90) m/uL Hgb 9.6 L (13.0-17.5) gm/dL Hct 29.8 L (39.0-53.0) % MCV 105.1 H (80.0-100.0) fL RDW 18.1 H (11.5-15.5) % Plt Count 92 L (150-450) k/uL Lymphocytes # 0.4 L (1.0-4.8) k/uL Macrocytosis Marked A Sodium 133 L (137-145) mmol/L Carbon Dioxide 18 L (22-30) mmol/L BUN 46 H (9-20) mg/dL Creatinine 2.82 H (0.66-1.25) mg/dL Glucose 144 H (74-99) mg/dL POC Glucose (mg/dL) 168 H (70-110) mg/dL Calcium 7.7 L (8.4-10.2) mg/dL Total Protein 5.4 L (6.3-8.2) g/dL Albumin 2.7 L (3.5-5.0) g/dL Microbiology - Last 24 Hours (Table) 10/24/23 14:30 Anaerobic Culture - Final Ascites Fluid 10/24/23 14:30 Gram Stain - Final Ascites Fluid Body Fluid Culture - Final
[2023-10-29 12:04] LABS: Glucose,Whole Blood 145 mg/dL (70-110)
[2023-10-29 12:04] LABS: Glucose,Whole Blood 176 mg/dL (70-110)
[2023-10-29 18:03] LABS: Glucose,Whole Blood 214 mg/dL (70-110)
[2023-10-29 20:22] LABS: Glucose,Whole Blood 188 mg/dL (70-110)
[2023-10-29 23:43] LABS: Glucose,Whole Blood 240 mg/dL (70-110)
--- NOTE | 2023-10-30 03:15 | XR ---
ADDENDUM - Added by Efrain Yousif MD on 10/30/2023 3:14 AM (-08:00) EXAM: XR Chest, 1 View CLINICAL HISTORY: ITS.REASON XR Reason: verify dobhoff placement TECHNIQUE: Frontal view of the chest. COMPARISON: No relevant prior studies available. IMPRESSION: Feeding tube in good position SharpEXAM: XR Chest, 1 View CLINICAL HISTORY: ITS.REASON XR Reason: verify dobhoff placement TECHNIQUE: Frontal view of the chest. COMPARISON: No relevant prior studies available.
[2023-10-30 05:58] LABS: Glucose,Whole Blood 175 mg/dL (70-110)
[2023-10-30 06:02] LABS: ALT 48 U/L (4-49); African American GFR (CKD) 30 (>60 ml/min/1.73 sqM); Anion Gap 9 mmol/L; Blood Urea Nitrogen 48 mg/dL (9-20); Calcium 7.6 mg/dL (8.4-10.2); Carbon Dioxide 21 mmol/L (22-30); Chloride 104 mmol/L (98-107); Glucose 181 mg/dL (74-99); Non-African American GFR(CKD) 26 (>60 ml/min/1.73 sqM); Sodium 134 mmol/L (137-145)
[2023-10-30 06:06] LABS: AST 40 U/L (17-59); Albumin 2.7 g/dL (3.5-5.0); Alkaline Phosphatase 129 U/L (38-126); Potassium 3.7 mmol/L (3.5-5.1); Total Protein 5.4 g/dL (6.3-8.2)
[2023-10-30 06:07] LABS: Total Bilirubin 0.8 mg/dL (0.2-1.3)
[2023-10-30 08:17] LABS: Anisocytosis Slight; Basophils % (A) 0 %; Eosinophils % (A) 1 %; HCT 27.6 % (39.0-53.0); HGB 8.9 gm/dL (13.0-17.5); Hypochromasia Slight; Lymphocytes # (A) 0.6 k/uL (1.0-4.8); Lymphocytes % (A) 19 %; MCHC 32.4 g/dL (31.0-37.0); MCV 104.7 fL (80.0-100.0); Macrocytosis Marked; Mean Platelet Volume 9.8; Monocytes # (A) 0.2 k/uL (0-1.0); Monocytes % (A) 6 %; Neutrophils # (A) 2.2 k/uL (1.3-7.7); Neutrophils % (A) 73 %; RBC 2.63 m/uL (4.30-5.90); RDW 17.7 % (11.5-15.5)
[2023-10-30 08:19] LABS: Platelet Count 60 k/uL (150-450)
[2023-10-30 08:26] LABS: ALT 46 U/L (4-49); AST 23 U/L (17-59); African American GFR (CKD) 26 (>60 ml/min/1.73 sqM); Albumin 2.7 g/dL (3.5-5.0); Alkaline Phosphatase 121 U/L (38-126); Anion Gap 7 mmol/L; Blood Urea Nitrogen 48 mg/dL (9-20); Calcium 7.7 mg/dL (8.4-10.2); Carbon Dioxide 26 mmol/L (22-30); Chloride 102 mmol/L (98-107); Glucose 165 mg/dL (74-99); Non-African American GFR(CKD) 23 (>60 ml/min/1.73 sqM); Potassium 3.2 mmol/L (3.5-5.1); Sodium 135 mmol/L (137-145); Total Bilirubin 0.6 mg/dL (0.2-1.3); Total Protein 5.3 g/dL (6.3-8.2)
--- NOTE | 2023-10-30 10:18 | P.PN ---
Subjective Progress Note Date: 10/30/23 Patient is a 63-year-old male with known liver disease requiring weekly paracentesis, recently diagnosed hepatorenal syndrome, adrenal insufficiency, diabetes, COPD, and coronary artery disease who presented to the ER via EMS after being found unresponsive at home. In the ER he underwent extensive evalua tion. On arrival he was hypothermic and hypoglycemic with a blood sugar of 47 despite treatment by EMS. Initial labs in the ER included CBC, coags, CMP, TSH, troponin, BNP, and ABG which were remarkable for hemoglobin 10, platelet count 79, pH 7.2, bicarb 18, sodium 132, potassium 5.3, BUN 87, creatinine 3.54 up from 2.15 most recently, magnesium 2.5, BNP 6340, and TSH of 5.680. Initial chest x-ray as reviewed by myself shows significant right-sided pleural effusion with increased pulmonary vascular congestion. In the ER he was started on D5 half normal due to his persistent hypoglycemia, these were warmed fluids to help with his hypothermia. Patient became more and more dyspneic. He ultimately required vasopressors due to prolonged hypotension, and intubation due to worsening respiratory distress from IV fluids. He was started on propofol and norepinephrine. Critical care was consulted. Arrangements were made for admission to the ICU. He was transitioned to D10 wiht sodium bicarb. He was seen by nephrology and required emergent HD for hyperkalemia and acidosis. Now off of bicarb drip. Still requiring hemodialysis. Patient now extubated. Patient seen and examined at bedside. No acute events overnight. Still minimal urine output. Charles catheter in place. Dobbhoff tube in place. Vital signs reviewed General: Nontoxic, no distress, appears older than at stated age Cardiovascular: S1S2 reg, no murmur Lungs: Course bs bilateral, no rhonchi, no rales, no accessory muscle use Abdominal: Tense abdomen, nontender to palpation, no guarding Ext: No gross muscle atrophy, 2+ edema b/l lower extremities, no contractures Neuro: Alert and oriented x 3 Psych: Cooperative Assessment/Plan: Decompensated alcoholic liver cirrhosis Acute hypoxic respiratory failure, resolved Pseudomonas pneumonia Acute metabolic encephalopathy secondary to above, resolved Shock, possibly septic, still requiring pressors Pancytopenia, likely in the setting of acute illness as well as liver disease -ICU following, maintain vasopressors to keep MAP above 60, continue IV Zosyn, continue Dobbhoff, may need barium swallow study, may need another paracentesis in 24 to 48 hours -IV Zosyn 3.375 g every 8 hours - hold home aldactone and lisinopril due to hypotension - hold remeron and xanax as patient is currently on vent Acute kidney injury, probable hepatorenal disease, now on dialysis Chronic kidney disease stage III Hyerpvolemia hyponatremia Hypokalemia Hyperkalemia, resolved Meatbolic acidosis, resolved Hyperphosphatemia, secondary to SAHARA - Nephrology following, IV Lasix discontinued, continue dialysis - Midodrine 10 mg 3 times daily, octreotide 50 mcg subcutaneous 3 times daily Insulin dependent diabetes Prolonged hypoglycemia in an insulin-dependent diabetic, resolved -Levemir 15 untis at night - SSI q 6 hours, monitor for hypoglycemia - follow BS Adrenal insufficiency now with shock -Patient is on hydrocortisone at home -Solu-Cortef to 50 mg IV every 8 hours Chronic: Coronary artery disease COPD without exacerbation Hypothyroidism Imaging: Chest x-ray as reviewed by myself reveals trace pleural effusion on the right Data Review: WBC 3.0, hemoglobin 8.9, platelets 60, potassium 3.2, creatinine 2.87, blood sugars range between 1 70-2 40 DVT prophylaxis: SCDs Anticipated discharge date: Pending Clinical Course Anticipated discharge place: Pending Clinical Course Objective - Vital Signs Vital signs: Vital Signs Temp 97.7 F 10/30/23 04:00 Pulse 51 L 10/30/23 07:00 Resp 12 10/30/23 07:00 BP 121/68 10/30/23 07:00 Pulse Ox 97 10/30/23 07:00 FiO2 50 10/26/23 16:00 Intake & Output 10/29/23 10/30/23 10/30/23 18:59 06:59 18:59 Intake Total 1094.845 573.346 68.176 Output Total 3391 103 5 Balance -2296.155 470.346 63.176 Weight 96.8 kg Intake: IV 220 220 10 .9NS KVO 120 120 10 Piperacillin-Tazobactam 3 100 100 .375 gm In Sodium Chloride 0.9% 100 ml @ 25 mls/hr IVPB Q8HR [facility] Rx# :[id number] Intake, IV Titration 124.845 43.346 58.176 Amount Norepinephrine 4 mg In 124.845 43.346 58.176 Sodium Chloride 0.9% 250 ml @ 0.03 MCG/KG/MIN 9. 332 mls/hr IV .Q24H [facility] Rx#:[id number] Oral 0 0 0 Tube Feeding 330 280 Hemodialysis 300 Other 120 30 Output: Urine 91 103 5 Hemodialysis 3300 Other: Voiding Method Indwelling Catheter Indwelling Catheter # Bowel Movements 2 2 ABP, PAP, CO, CI - Last Documented Arterial Blood Pressure 101/67 - Labs CBC & Chem 7: 10/30/23 07:44 10/30/23 07:44 Labs: Abnormal Lab Results - Last 24 Hours (Table) 10/29/23 10/29/23 10/29/23 Range/Units 03:56 12:00 12:02 WBC (3.8-10.6) k/uL RBC (4.30-5.90) m/uL Hgb (13.0-17.5) gm/dL Hct (39.0-53.0) % MCV (80.0-100.0) fL RDW (11.5-15.5) % Plt Count (150-450) k/uL Lymphocytes # (1.0-4.8) k/uL Macrocytosis Sodium (137-145) mmol/L Potassium (3.5-5.1) mmol/L Carbon Dioxide (22-30) mmol/L BUN (9-20) mg/dL Creatinine (0.66-1.25) mg/dL Glucose (74-99) mg/dL POC Glucose (mg/dL) 176 H 145 H (70-110) mg/dL Calcium (8.4-10.2) mg/dL Phosphorus 8.2 H (2.5-4.5) mg/dL Alkaline Phosphatase (38-126) U/L Total Protein (6.3-8.2) g/dL Albumin (3.5-5.0) g/dL 10/29/23 10/29/23 10/29/23 Range/Units 18:00 20:21 23:41 WBC (3.8-10.6) k/uL RBC (4.30-5.90) m/uL Hgb (13.0-17.5) gm/dL Hct (39.0-53.0) % MCV (80.0-100.0) fL RDW (11.5-15.5) % Plt Count (150-450) k/uL Lymphocytes # (1.0-4.8) k/uL Macrocytosis Sodium (137-145) mmol/L Potassium (3.5-5.1) mmol/L Carbon Dioxide (22-30) mmol/L BUN (9-20) mg/dL Creatinine (0.66-1.25) mg/dL Glucose (74-99) mg/dL POC Glucose (mg/dL) 214 H 188 H 240 H (70-110) mg/dL Calcium (8.4-10.2) mg/dL Phosphorus (2.5-4.5) mg/dL Alkaline Phosphatase (38-126) U/L Total Protein (6.3-8.2) g/dL Albumin (3.5-5.0) g/dL 10/30/23 10/30/23 10/30/23 Range/Units 04:32 05:55 07:44 WBC 3.0 L (3.8-10.6) k/uL RBC 2.63 L (4.30-5.90) m/uL Hgb 8.9 L (13.0-17.5) gm/dL Hct 27.6 L (39.0-53.0) % MCV 104.7 H (80.0-100.0) fL RDW 17.7 H (11.5-15.5) % Plt Count 60 L (150-450) k/uL Lymphocytes # 0.6 L (1.0-4.8) k/uL Macrocytosis Marked A Sodium 134 L (137-145) mmol/L Potassium (3.5-5.1) mmol/L Carbon Dioxide 21 L (22-30) mmol/L BUN 48 H (9-20) mg/dL Creatinine 2.56 H (0.66-1.25) mg/dL Glucose 181 H (74-99) mg/dL POC Glucose (mg/dL) 175 H (70-110) mg/dL Calcium 7.6 L (8.4-10.2) mg/dL Phosphorus (2.5-4.5) mg/dL Alkaline Phosphatase 129 H (38-126) U/L Total Protein 5.4 L (6.3-8.2) g/dL Albumin 2.7 L (3.5-5.0) g/dL 10/30/23 Range/Units 07:44 WBC (3.8-10.6) k/uL RBC (4.30-5.90) m/uL Hgb (13.0-17.5) gm/dL Hct (39.0-53.0) % MCV (80.0-100.0) fL RDW (11.5-15.5) % Plt Count (150-450) k/uL Lymphocytes # (1.0-4.8) k/uL Macrocytosis Sodium 135 L (137-145) mmol/L Potassium 3.2 L (3.5-5.1) mmol/L Carbon Dioxide (22-30) mmol/L BUN 48 H (9-20) mg/dL Creatinine 2.87 H (0.66-1.25) mg/dL Glucose 165 H (74-99) mg/dL POC Glucose (mg/dL) (70-110) mg/dL Calcium 7.7 L (8.4-10.2) mg/dL Phosphorus (2.5-4.5) mg/dL Alkaline Phosphatase (38-126) U/L Total Protein 5.3 L (6.3-8.2) g/dL Albumin 2.7 L (3.5-5.0) g/dL Microbiology - Last 24 Hours (Table) 10/24/23 14:30 Anaerobic Culture - Final Ascites Fluid 10/24/23 14:30 Gram Stain - Final Ascites Fluid Body Fluid Culture - Final
--- NOTE | 2023-10-30 10:51 | P.PN ---
Subjective Patient is seen for follow-up for acute kidney injury. He is maintained on hemodialysis and is seen on hemodialysis. Started hemodialysis on 10/21/2023 for volume overload and worsening renal function. Remains with significant edema. Dobbhoff catheter in place. Remains on very low-dose of Levophed. Tolerated UF of 3.3 L yesterday. Objective - Vital Signs Vital signs: Vital Signs Temp 97.7 F 10/30/23 04:00 Pulse 52 L 10/30/23 10:30 Resp 14 10/30/23 10:30 BP 88/57 10/30/23 10:30 Pulse Ox 96 10/30/23 10:30 FiO2 50 10/26/23 16:00 Intake & Output 10/29/23 10/30/23 10/30/23 18:59 06:59 18:59 Intake Total 1094.845 573.346 206.176 Output Total 3391 103 15 Balance -2296.155 470.346 191.176 Weight 96.8 kg Intake: IV 220 220 30 .9NS KVO 120 120 30 Piperacillin-Tazobactam 3 100 100 .375 gm In Sodium Chloride 0.9% 100 ml @ 25 mls/hr IVPB Q8HR [facility] Rx# :[id number] Intake, IV Titration 124.845 43.346 58.176 Amount Norepinephrine 4 mg In 124.845 43.346 58.176 Sodium Chloride 0.9% 250 ml @ 0.03 MCG/KG/MIN 9. 332 mls/hr IV .Q24H [facility] Rx#:[id number] Oral 0 0 0 Tube Feeding 330 280 88 Hemodialysis 300 Other 120 30 30 Output: Urine 91 103 15 Hemodialysis 3300 Other: Voiding Method Indwelling Catheter Indwelling Catheter # Bowel Movements 2 2 ABP, PAP, CO, CI - Last Documented Arterial Blood Pressure 101/67 - Exam Patient is awake, no acute distress Examination of the heart S1 and S2 Examination of the lungs shows bilateral breath sounds are heard and decreased breath sounds at the bases Abdomen is soft distended with abdominal wall edema Examination of lower extremities shows edema 2-3+ bilaterally FRAMER exam shows patient is moving all 4 extremities. - Labs CBC & Chem 7: 10/30/23 07:44 10/30/23 07:44 Labs: Abnormal Lab Results - Last 24 Hours (Table) 10/29/23 10/29/23 10/29/23 Range/Units 03:56 12:00 12:02 WBC (3.8-10.6) k/uL RBC (4.30-5.90) m/uL Hgb (13.0-17.5) gm/dL Hct (39.0-53.0) % MCV (80.0-100.0) fL RDW (11.5-15.5) % Plt Count (150-450) k/uL Lymphocytes # (1.0-4.8) k/uL Macrocytosis Sodium (137-145) mmol/L Potassium (3.5-5.1) mmol/L Carbon Dioxide (22-30) mmol/L BUN (9-20) mg/dL Creatinine (0.66-1.25) mg/dL Glucose (74-99) mg/dL POC Glucose (mg/dL) 176 H 145 H (70-110) mg/dL Calcium (8.4-10.2) mg/dL Phosphorus 8.2 H (2.5-4.5) mg/dL Alkaline Phosphatase (38-126) U/L Total Protein (6.3-8.2) g/dL Albumin (3.5-5.0) g/dL 10/29/23 10/29/23 10/29/23 Range/Units 18:00 20:21 23:41 WBC (3.8-10.6) k/uL RBC (4.30-5.90) m/uL Hgb (13.0-17.5) gm/dL Hct (39.0-53.0) % MCV (80.0-100.0) fL RDW (11.5-15.5) % Plt Count (150-450) k/uL Lymphocytes # (1.0-4.8) k/uL Macrocytosis Sodium (137-145) mmol/L Potassium (3.5-5.1) mmol/L Carbon Dioxide (22-30) mmol/L BUN (9-20) mg/dL Creatinine (0.66-1.25) mg/dL Glucose (74-99) mg/dL POC Glucose (mg/dL) 214 H 188 H 240 H (70-110) mg/dL Calcium (8.4-10.2) mg/dL Phosphorus (2.5-4.5) mg/dL Alkaline Phosphatase (38-126) U/L Total Protein (6.3-8.2) g/dL Albumin (3.5-5.0) g/dL 10/30/23 10/30/23 10/30/23 Range/Units 04:32 05:55 07:44 WBC 3.0 L (3.8-10.6) k/uL RBC 2.63 L (4.30-5.90) m/uL Hgb 8.9 L (13.0-17.5) gm/dL Hct 27.6 L (39.0-53.0) % MCV 104.7 H (80.0-100.0) fL RDW 17.7 H (11.5-15.5) % Plt Count 60 L (150-450) k/uL Lymphocytes # 0.6 L (1.0-4.8) k/uL Macrocytosis Marked A Sodium 134 L (137-145) mmol/L Potassium (3.5-5.1) mmol/L Carbon Dioxide 21 L (22-30) mmol/L BUN 48 H (9-20) mg/dL Creatinine 2.56 H (0.66-1.25) mg/dL Glucose 181 H (74-99) mg/dL POC Glucose (mg/dL) 175 H (70-110) mg/dL Calcium 7.6 L (8.4-10.2) mg/dL Phosphorus (2.5-4.5) mg/dL Alkaline Phosphatase 129 H (38-126) U/L Total Protein 5.4 L (6.3-8.2) g/dL Albumin 2.7 L (3.5-5.0) g/dL 10/30/23 Range/Units 07:44 WBC (3.8-10.6) k/uL RBC (4.30-5.90) m/uL Hgb (13.0-17.5) gm/dL Hct (39.0-53.0) % MCV (80.0-100.0) fL RDW (11.5-15.5) % Plt Count (150-450) k/uL Lymphocytes # (1.0-4.8) k/uL Macrocytosis Sodium 135 L (137-145) mmol/L Potassium 3.2 L (3.5-5.1) mmol/L Carbon Dioxide (22-30) mmol/L BUN 48 H (9-20) mg/dL Creatinine 2.87 H (0.66-1.25) mg/dL Glucose 165 H (74-99) mg/dL POC Glucose (mg/dL) (70-110) mg/dL Calcium 7.7 L (8.4-10.2) mg/dL Phosphorus (2.5-4.5) mg/dL Alkaline Phosphatase (38-126) U/L Total Protein 5.3 L (6.3-8.2) g/dL Albumin 2.7 L (3.5-5.0) g/dL Microbiology - Last 24 Hours (Table) 10/24/23 14:30 Anaerobic Culture - Final Ascites Fluid 10/24/23 14:30 Gram Stain - Final Ascites Fluid Body Fluid Culture - Final Assessment and Plan Assessment: 1. Acute kidney injury secondary to ATN secondary to septic shock. Creatinine 3.54 on admission. Creatinine as low as 1.02 dated 10/01/23. Started on hemodialysis October 21, 2023 due to volume overload and hyperkalemia. Oliguric. No hydronephrosis noted on ultrasound. 2. Septic shock. Possibly SBP. On IV antibiotics. On Levophed. 3. Metabolic acidosis secondary to acute kidney injury. Improved postdialysis. 4. Hypervolemic hyponatremia. Improved. 5. Volume overload. Improving with ultrafiltration. 6. Alcohol induced liver cirrhosis. Patient noted to be pancytopenic. GI following. 7. Acute hypoxic respiratory failure. Intubated. 8. Diabetes mellitus. 9. Chronic diastolic CHF with moderate mitral regurgitation. 10. History of adrenal insufficiency. Currently on IV Solu-Cortef. 11. Hyperphosphatemia secondary to acute kidney injury. On PhosLo. Plan: Hemodialysis today and repeat in a.m. Continue with midodrine Continue with Sandostatin as well.
--- NOTE | 2023-10-30 11:48 | P.PN ---
Subjective Progress Note Date: 10/30/23 10/28/2023, the patient is being seen for a follow-up. 63-year-old male patient with acute respiratory failure related to an underlying aspiration pneumonia with known history of alcoholic liver disease/cirrhosis and liver failure. The patient was extubated on 10/26/2023. Patient is known to have COPD and he grew also Pseudomonas aeruginosa in the sputum. The patient also has chronic liver, chronic kidney disease with an acute kidney injury attributed to ATN knowing that the patient's baseline creatinine 10/01/2023 was 1.02. He was started on hemodialysis on 10/21/2023 due to volume overload and hyperkalemia as the patient was having oliguria. The patient has no significant hydronephrosis., coronary disease, diabetes mellitus, hypothyroidism and history of chronic alcoholism. The patient is currently on 4 weeks of oxygen by nasal cannula. The most recent chest x-ray from 10/27/2023 showed improvement in the left-sided pleural effusion, small lung volumes and bibasilar opacities probably due to atelectasis. Noted the patient also has Pseudomonas in the sputum and the patient is currently on IV Zosyn. Patient remains on pressors and norepinephrine is running at 0.02 mcg/kg/min. Adrenal insufficiency was also suspected and the patient was placed on stress dose hydrocortisone 50 mg every 8 hours. The patient is also on Lasix 80 mg IV daily and Sandostatin 50 mcg every 8 hours subcu and midodrine 10 mg p.o. 3 times daily. Transfer diabetes mellitus, the patient remains on Levemir insulin 15 units in addition to sliding scale coverage. Patient received lactulose 30 g twice a day. The ultrasound-guided paracentesis was done on 10/25/2023 and the patient had a total of 6.2 L of ascitic fluid removed. Most recent echocardiogram was done on 07/05/2024 indicating preserved LV function with moderate degree of mitral regurgitation. The blood cultures during this current admission has been negative. I suspect fluid cultures were also negative. Note that the cell count of the sleep note was low at 7 and there is no clinical indication of SBP. Patient continues to have a soft blood pressure. He was taken off the norepinephrine and earlier this morning, the nursing staff had to put her back for blood pressure drop as his systolic blood pressure dropped and the map was at 56. Currently is on norepinephrine at 0.01 mcg/kg/m he is on 4 L of oxygen by nasal cannula. Swallow evaluation is being repeated to evaluate his swallow and give him his oral medication if possible. Awake and alert and communicating. His white cycles of 4.7 with a hemoglobin of 9.4 and a platelet count of 78. BUN is 43 with a creatinine of 2.64 and a sodium level is at 136 and a potassium level is at 4.4. Urine output is in the order of 2 80 mL over the past 24 hours. Obviously oliguric and the findings on the case and the patient is going to undergo hemodialysis session today. He had the patient's chest x-ray from today shows some atelectatic change in lung bases. No other significant abnormalities noted. His last paracentesis was done on 10/25/2023 and a total of 6.2 L of ascitic fluid was removed. On today's evaluation of 10/29/2023, I am seeing the patient for a follow-up. The patient is awake and alert. He was unable to pass a swallow evaluation and based on that the patient was given a Dobbhoff catheter for enteral feeding and nutritional support. He is currently receiving Nepro at a rate of 20 cc an hour and he is able to tolerate enteral feeding and needed to have a bowel movement. Note that the patient is also on lactulose regarding his liver cirrhosis. He is on oxygen at 4 L/min nasal cannula. He underwent hemodialysis yesterday with a total of 3.5 L of ultrafiltration. IV fluids are currently at KVO as the patient continues to have signs of fluid overload. He is on low-dose norepinephrine which is only at 0.04 mcg/kg/min.Meanwhile, his abdomen is felt to be slightly distended and ultrasound of the abdomen to be done today to assess for any ascites. His last paracentesis was done on 10/24/2023 with a total of 6.2 L of fluid being aspirated from his abdominal fluid. The patient's chest x-ray shows small lung volumes and atelectatic changes in the lung bases bilaterally. The patient is a large clip in the right humeral head. The Dobbho ff catheter is in a good location. Meanwhile, the white cell count at 6.1, hemoglobin is at 9.6 and a platelet count of 92. BUN is 46 with a creatinine of 2.8 and his sodium level is at 133 with a potassium level of 4.2. Blood sugar from this morning was at 168. He is communicating. He is profoundly weak still. He seems to be appropriate. He is aware that he is in the hospital. He is aware of his name and his date of . On today's evaluation of 10/30/2023, the patient is being seen for a follow-up. The patient is calm and comfortable. He remains profoundly weak. He is on room air oxygen. He has a Dobbhoff catheter in place and the patient is on enteral feeding for nutrition support and the patient is receiving Nepro. He underwent a dialysis without the filtration yesterday with a total of 3 L removed. He remains on low-dose norepinephrine at 0.02 mcg/kg/min. Another hemodialysis session is to be done today. Urine output is minimal. No other significant events overnight. No reported aspiration. No signs of any respiratory distress. The patient remains on IV Zosyn. The patient remains on Levemir insulin 15 units and sliding scale coverage. The patient remains on octreotide. The patient remains on stress dose hydrocortisone.As for the labs, the WBC count is at 3 with a mean of 8.9 and platelet count of 60. BUN is 48 with a creatinine of 2.8 and a sodium level is at 135. Ultrasound of the abdomen showed a moderate degree of abdominal ascites. He is stooling. No signs of any significant encephalopathy. As mentioned, remains profoundly weak Objective - Vital Signs Vital signs: Vital Signs Temp 97.7 F 10/30/23 04:00 Pulse 51 L 10/30/23 07:00 Resp 12 10/30/23 07:00 BP 121/68 10/30/23 07:00 Pulse Ox 97 10/30/23 07:00 FiO2 50 10/26/23 16:00 Intake & Output 10/29/23 10/30/23 10/30/23 18:59 06:59 18:59 Intake Total 1094.845 573.346 68.176 Output Total 3391 103 5 Balance -2296.155 470.346 63.176 Weight 96.8 kg Intake: IV 220 220 10 .9NS KVO 120 120 10 Piperacillin-Tazobactam 3 100 100 .375 gm In Sodium Chloride 0.9% 100 ml @ 25 mls/hr IVPB Q8HR [facility] Rx# :[id number] Intake, IV Titration 124.845 43.346 58.176 Amount Norepinephrine 4 mg In 124.845 43.346 58.176 Sodium Chloride 0.9% 250 ml @ 0.03 MCG/KG/MIN 9. 332 mls/hr IV .Q24H [facility] Rx#:[id number] Oral 0 0 0 Tube Feeding 330 280 Hemodialysis 300 Other 120 30 Output: Urine 91 103 5 Hemodialysis 3300 Other: Voiding Method Indwelling Catheter Indwelling Catheter # Bowel Movements 2 2 ABP, PAP, CO, CI - Last Documented Arterial Blood Pressure 101/67 - Exam Examination General appearance the patient is calm comfortable no acute distress body mass index is 28.9 on room air oxygen the patient has a Dobbhoff catheter in place. Head exam was generally normal. There was no scleral icterus or corneal arcus. Mucous membranes were moist. Neck was supple and without jugular venous distension, thyromegaly, or carotid bruits. Carotids were easily palpable bilaterally. There was no adenopathy. Lungs were clear to auscultation and percussion, and with normal diaphragmatic excursion. No wheezes or rales were noted. Cardiac exam revealed the PMI to be normally situated and sized. The rhythm was regular and no extrasystoles were noted during several minutes of auscultation. The first and second heart sounds were normal and physiologic splitting of the second heart sound was noted. There were no murmurs, rubs, clicks, or gallops. Abdomen is distended and the patient has ascites. There is fluid wave and shifting dullness. No direct tenderness or rebound tenderness or guarding Extremities reveal +1-2 pitting edema and there is no cyanosis or clubbing neurologically, the patient is awake and alert and the patient does not have any focal neurological deficit. Cranial nerves are essentially intact. Examination of the skin revealed no evidence of significant rashes, suspicious appearing nevi or other concerning lesions. - Labs CBC & Chem 7: 10/30/23 07:44 10/30/23 07:44 Labs: Abnormal Lab Results - Last 24 Hours (Table) 10/29/23 10/29/23 10/29/23 Range/Units 03:56 12:00 12:02 WBC (3.8-10.6) k/uL RBC (4.30-5.90) m/uL Hgb (13.0-17.5) gm/dL Hct (39.0-53.0) % MCV (80.0-100.0) fL RDW (11.5-15.5) % Plt Count (150-450) k/uL Lymphocytes # (1.0-4.8) k/uL Macrocytosis Sodium (137-145) mmol/L Potassium (3.5-5.1) mmol/L Carbon Dioxide (22-30) mmol/L BUN (9-20) mg/dL Creatinine (0.66-1.25) mg/dL Glucose (74-99) mg/dL POC Glucose (mg/dL) 176 H 145 H (70-110) mg/dL Calcium (8.4-10.2) mg/dL Phosphorus 8.2 H (2.5-4.5) mg/dL Alkaline Phosphatase (38-126) U/L Total Protein (6.3-8.2) g/dL Albumin (3.5-5.0) g/dL 10/29/23 10/29/23 10/29/23 Range/Units 18:00 20:21 23:41 WBC (3.8-10.6) k/uL RBC (4.30-5.90) m/uL Hgb (13.0-17.5) gm/dL Hct (39.0-53.0) % MCV (80.0-100.0) fL RDW (11.5-15.5) % Plt Count (150-450) k/uL Lymphocytes # (1.0-4.8) k/uL Macrocytosis Sodium (137-145) mmol/L Potassium (3.5-5.1) mmol/L Carbon Dioxide (22-30) mmol/L BUN (9-20) mg/dL Creatinine (0.66-1.25) mg/dL Glucose (74-99) mg/dL POC Glucose (mg/dL) 214 H 188 H 240 H (70-110) mg/dL Calcium (8.4-10.2) mg/dL Phosphorus (2.5-4.5) mg/dL Alkaline Phosphatase (38-126) U/L Total Protein (6.3-8.2) g/dL Albumin (3.5-5.0) g/dL 02/04/1510/30/23 10/30/23 Range/Units 04:32 05:55 07:44 WBC 3.0 L (3.8-10.6) k/uL RBC 2.63 L (4.30-5.90) m/uL Hgb 8.9 L (13.0-17.5) gm/dL Hct 27.6 L (39.0-53.0) % MCV 104.7 H (80.0-100.0) fL RDW 17.7 H (11.5-15.5) % Plt Count 60 L (150-450) k/uL Lymphocytes # 0.6 L (1.0-4.8) k/uL Macrocytosis Marked A Sodium 134 L (137-145) mmol/L Potassium (3.5-5.1) mmol/L Carbon Dioxide 21 L (22-30) mmol/L BUN 48 H (9-20) mg/dL Creatinine 2.56 H (0.66-1.25) mg/dL Glucose 181 H (74-99) mg/dL POC Glucose (mg/dL) 175 H (70-110) mg/dL Calcium 7.6 L (8.4-10.2) mg/dL Phosphorus (2.5-4.5) mg/dL Alkaline Phosphatase 129 H (38-126) U/L Total Protein 5.4 L (6.3-8.2) g/dL Albumin 2.7 L (3.5-5.0) g/dL 10/30/23 Range/Units 07:44 WBC (3.8-10.6) k/uL RBC (4.30-5.90) m/uL Hgb (13.0-17.5) gm/dL Hct (39.0-53.0) % MCV (80.0-100.0) fL RDW (11.5-15.5) % Plt Count (150-450) k/uL Lymphocytes # (1.0-4.8) k/uL Macrocytosis Sodium 135 L (137-145) mmol/L Potassium 3.2 L (3.5-5.1) mmol/L Carbon Dioxide (22-30) mmol/L BUN 48 H (9-20) mg/dL Creatinine 2.87 H (0.66-1.25) mg/dL Glucose 165 H (74-99) mg/dL POC Glucose (mg/dL) (70-110) mg/dL Calcium 7.7 L (8.4-10.2) mg/dL Phosphorus (2.5-4.5) mg/dL Alkaline Phosphatase (38-126) U/L Total Protein 5.3 L (6.3-8.2) g/dL Albumin 2.7 L (3.5-5.0) g/dL Microbiology - Last 24 Hours (Table) 10/24/23 14:30 Anaerobic Culture - Final Ascites Fluid 10/24/23 14:30 Gram Stain - Final Ascites Fluid Body Fluid Culture - Final Assessment and Plan Plan: Acute respiratory failure, secondary to possible aspiration pneumonia, and alcoholic liver disease with alcoholic cirrhosis. Extubation was done on 10/26/2023. The patient is currently on room air oxygen Hypotension, multifactorial. This is partly related to septic shock and there may be also a component of adrenal insufficiency the patient remains on high- dose hydrocortisone and the patient is currently on pressors in addition to midodrine the patient remains on low-dose norepinephrine which is running at 0.0 2 mcg/kg/min. Pseudomonas aeruginosa tracheobronchitis/bronchopneumonia. The patient is curren tly covered with IV Zosyn Liver cirrhosis Ascites with a large-volume paracentesis that was done on 10/25/2023 with a total of 6.2 L of ascitic fluid removal. No evidence of SBP and the cultures are negative, repeat ultrasound of the abdomen is to be done today. Abdomen is slightly distended. Repeat ultrasound abdomen shows moderate degree of ascites. Abdomen is slightly distended. History of alcoholism Acute kidney injury secondary to ATN due to septic shock. Patient is according hemodialysis due to volume overload. There is improvement with ultrafiltration. The patient is undergoing periodic dialysis. Last hemodialysis session was yesterday with a total of 3 L of fluid removal. The patient continues to show signs of fluid overload. Another session of hemodialysis to be done today. COPD Diabetes mellitus type 2 Coronary artery disease and based on echocardiogram that was done in June 2023, the patient has a preserved LV function with moderate degree of mitral regurgitation Hypothyroidism Non-anion gap metabolic acidosis secondary to renal failure, recovered Anemia of chronic disease Chronic thrombocytopenia Plan Currently on room air oxygen and overall respiratory status is stable the patient's were provided incentive spirometer The patient failed a swallow evaluation and the patient is currently on enteral feeding via Dobbhoff catheter with Nepro Hemodialysis to be done today with ultrafiltration Neurologically arousable and awake, he has profound weakness in all 4 extremities, no significant encephalopathy and the patient is responding to que stions and answers questions appropriately. Pressors to maintain a mean arterial pressure above 60, currently on low-dose norepinephrine Continue IV Zosyn Continue lactulose 30 g twice a day May need another paracentesis with the next 24-48 hours Stress dose hydrocortisone 50 mg IV every 8 hours We'll continue to follow. He is a full code Critical care evaluation, more than 30 minutes
[2023-10-30 11:52] LABS: Glucose,Whole Blood 156 mg/dL (70-110)
[2023-10-30] MEDS: POTASSIUM BICARBONATE/CIT AC 20 MEQ TABLET.EFF PO ONE (15:26)
[2023-10-30 17:11] LABS: Glucose,Whole Blood 187 mg/dL (70-110)
--- NOTE | 2023-10-30 19:44 | XR ---
EXAMINATION TYPE: XR chest 1V portable DATE OF EXAM: 10/30/2023 7:14 PM CLINICAL INDICATION:Male, 63 years old with history of Feeding tube placement; COMPARISON: Chest radiographs from 10/30/2023. TECHNIQUE: XR chest 1V portable Frontal view of the chest. FINDINGS: Lungs/Pleura: There is blunting of the costophrenic angles. Basilar atelectasis present. There is no evidence of pleural effusion, focal consolidation, or pneumothorax. Pulmonary vascularity: Unremarkable. Heart/mediastinum: Cardiomediastinal silhouette is unremarkable. Musculoskeletal: Degenerative changes of the shoulder joints. Lines/Tubes: Dobbhoff tube terminates to the right of the spine possibly within the antrum of stomach versus the d uodenum. Right internal jugular central venous catheter with distal tip at the cavoatrial junction. IMPRESSION: Dobbhoff tube terminates to the right of the spine possibly within the antrum of the stomach versus d uodenum.
[2023-10-30] MEDS: PIPERACILLIN-TAZOBACTAM 3.375 GM in SODIUM CHLORIDE 0.9% 100 ML IVPB SCH (21:05)
[2023-10-30 21:49] LABS: Glucose,Whole Blood 218 mg/dL (70-110)
[2023-10-30] MEDS: POTASSIUM BICARBONATE/CIT AC 20 MEQ TABLET.EFF NG-TUBE SCH (23:51)
[2023-10-30 23:52] LABS: Glucose,Whole Blood 221 mg/dL (70-110)
[2023-10-31 05:59] LABS: Anisocytosis Slight; Basophils % (A) 0 %; Eosinophils % (A) 1 %; HCT 29.7 % (39.0-53.0); HGB 9.5 gm/dL (13.0-17.5); Hypochromasia Slight; Lymphocytes # (A) 0.6 k/uL (1.0-4.8); Lymphocytes % (A) 13 %; MCH 33.8 pg (25.0-35.0); MCHC 31.9 g/dL (31.0-37.0); Macrocytosis Marked; Mean Platelet Volume 9.5; Monocytes # (A) 0.2 k/uL (0-1.0); Monocytes % (A) 4 %; Neutrophils # (A) 3.5 k/uL (1.3-7.7); Neutrophils % (A) 80 %; RBC 2.81 m/uL (4.30-5.90); RDW 17.6 % (11.5-15.5); WBC 4.4 k/uL (3.8-10.6)
[2023-10-31 06:07] LABS: Platelet Count 69 k/uL (150-450)
[2023-10-31 06:23] LABS: African American GFR (CKD) 29 (>60 ml/min/1.73 sqM); Anion Gap 7 mmol/L; Blood Urea Nitrogen 45 mg/dL (9-20); Calcium 7.5 mg/dL (8.4-10.2); Carbon Dioxide 24 mmol/L (22-30); Chloride 103 mmol/L (98-107); Glucose 212 mg/dL (74-99); Non-African American GFR(CKD) 25 (>60 ml/min/1.73 sqM); Potassium 3.5 mmol/L (3.5-5.1); Sodium 134 mmol/L (137-145)
[2023-10-31 06:59] LABS: Glucose,Whole Blood 198 mg/dL (70-110)
--- NOTE | 2023-10-31 07:05 | XR ---
EXAM: XR Chest, 1 View CLINICAL HISTORY: ITS.REASON XR Reason: Dobhoff tube placement TECHNIQUE: Frontal view of the chest. COMPARISON: No relevant prior studies available. FINDINGS: See Impression. IMPRESSION: Dobbhoff tube tip likely in the proximal duodenum.
[2023-10-31 07:38] LABS: Glucose,Whole Blood 179 mg/dL (70-110)
--- NOTE | 2023-10-31 10:33 | P.PN ---
Subjective Patient is seen for follow-up for acute kidney injury. He is maintained on hemodialysis and is seen on hemodialysis. Started hemodialysis on 10/21/2023 for volume overload and worsening renal function. Remains with significant edema. Dobbhoff catheter in place. Remains on very low-dose of Levophed. Tolerated UF of 2.4 L yesterday. Objective - Vital Signs Vital signs: Vital Signs Temp 98.4 F 10/31/23 08:00 Pulse 62 10/31/23 09:30 Resp 15 10/31/23 09:30 BP 113/69 10/31/23 09:30 Pulse Ox 97 10/31/23 09:30 FiO2 50 10/26/23 16:00 Intake & Output 10/30/23 10/31/23 10/31/23 18:59 06:59 18:59 Intake Total 1157.286 754.843 210 Output Total 2452 76 15 Balance -1294.714 678.843 195 Weight 96.8 kg 95.8 kg Intake: IV 120 120 30 .9NS KVO 120 120 30 Intake, IV Titration 82.286 134.843 Amount Norepinephrine 4 mg In 82.286 34.843 Sodium Chloride 0.9% 250 ml @ 0.03 MCG/KG/MIN 9. 332 mls/hr IV .Q24H [facility] Rx#:[id number] Piperacillin-Tazobactam 3 100 .375 gm In Sodium Chloride 0.9% 100 ml @ 25 mls/hr IVPB Q8H [facility] Rx#: [id number] Oral 0 Tube Feeding 495 440 110 Hemodialysis 400 Other 60 60 70 Output: Urine 52 76 15 Hemodialysis 2400 Other: Voiding Method Indwelling Catheter Indwelling Catheter # Bowel Movements 1 ABP, PAP, CO, CI - Last Documented Arterial Blood Pressure 101/67 - Exam Patient is awake, no acute distress Examination of the heart S1 and S2 Examination of the lungs shows bilateral breath sounds are heard and decreased breath sounds at the bases Abdomen is soft distended with abdominal wall edema Examination of lower extremities shows edema 2-3+ bilaterally FREIGHT COORDINATOR exam shows patient is moving all 4 extremities. - Labs CBC & Chem 7: 10/31/23 05:22 10/31/23 05:22 Labs: Abnormal Lab Results - Last 24 Hours (Table) 10/30/23 10/30/23 10/30/23 Range/Units 11:50 14:33 17:09 RBC (4.30-5.90) m/uL Hgb (13.0-17.5) gm/dL Hct (39.0-53.0) % MCV (80.0-100.0) fL RDW (11.5-15.5) % Plt Count (150-450) k/uL Lymphocytes # (1.0-4.8) k/uL Macrocytosis Sodium (137-145) mmol/L Potassium 3.1 L (3.5-5.1) mmol/L BUN (9-20) mg/dL Creatinine (0.66-1.25) mg/dL Glucose (74-99) mg/dL POC Glucose (mg/dL) 156 H 187 H (70-110) mg/dL Calcium (8.4-10.2) mg/dL 10/30/23 10/30/23 10/31/23 Range/Units 21:46 23:40 05:22 RBC 2.81 L (4.30-5.90) m/uL Hgb 9.5 L (13.0-17.5) gm/dL Hct 29.7 L (39.0-53.0) % MCV 106.0 H (80.0-100.0) fL RDW 17.6 H (11.5-15.5) % Plt Count 69 L (150-450) k/uL Lymphocytes # 0.6 L (1.0-4.8) k/uL Macrocytosis Marked A Sodium (137-145) mmol/L Potassium (3.5-5.1) mmol/L BUN (9-20) mg/dL Creatinine (0.66-1.25) mg/dL Glucose (74-99) mg/dL POC Glucose (mg/dL) 218 H 221 H (70-110) mg/dL Calcium (8.4-10.2) mg/dL 10/31/23 10/31/23 10/31/23 Range/Units 05:22 06:57 07:28 RBC (4.30-5.90) m/uL Hgb (13.0-17.5) gm/dL Hct (39.0-53.0) % MCV (80.0-100.0) fL RDW (11.5-15.5) % Plt Count (150-450) k/uL Lymphocytes # (1.0-4.8) k/uL Macrocytosis Sodium 134 L (137-145) mmol/L Potassium (3.5-5.1) mmol/L BUN 45 H (9-20) mg/dL Creatinine 2.63 H (0.66-1.25) mg/dL Glucose 212 H (74-99) mg/dL POC Glucose (mg/dL) 198 H 179 H (70-110) mg/dL Calcium 7.5 L (8.4-10.2) mg/dL Assessment and Plan Assessment: 1. Acute kidney injury secondary to ATN secondary to septic shock. Creatinine 3.54 on admission. Creatinine as low as 1.02 dated 10/01/23. Started on hemodialysis October 21, 2023 due to volume overload and hyperkalemia. Oliguric. No hydronephrosis noted on ultrasound. 2. Septic shock. Possibly SBP. On IV antibiotics. On Levophed. 3. Metabolic acidosis secondary to acute kidney injury. Improved postdialysis. 4. Hypervolemic hyponatremia. Improved. 5. Volume overload. Improving with ultrafiltration. 6. Alcohol induced liver cirrhosis. Patient noted to be pancytopenic. GI following. 7. Acute hypoxic respiratory failure. Intubated. 8. Diabetes mellitus. 9. Chronic diastolic CHF with moderate mitral regurgitation. 10. History of adrenal insufficiency. Currently on IV Solu-Cortef. 11. Hyperphosphatemia secondary to acute kidney injury. On PhosLo. Plan: Hemodialysis today and repeat in a.m. Continue with marianne Weinberg
[2023-10-31 11:54] LABS: Glucose,Whole Blood 186 mg/dL (70-110)
--- NOTE | 2023-10-31 12:04 | P.PN ---
Subjective Progress Note Date: 10/31/23 10/28/2023, the patient is being seen for a follow-up. 63-year-old male patient with acute respiratory failure related to an underlying aspiration pneumonia with known history of alcoholic liver disease/cirrhosis and liver failure. The patient was extubated on 10/26/2023. Patient is known to have COPD and he grew also Pseudomonas aeruginosa in the sputum. The patient also has chronic liver, chronic kidney disease with an acute kidney injury attributed to ATN knowing that the patient's baseline creatinine 10/01/2023 was 1.02. He was started on hemodialysis on 10/21/2023 due to volume overload and hyperkalemia as the patient was having oliguria. The patient has no significant hydronephrosis., coronary disease, diabetes mellitus, hypothyroidism and history of chronic alcoholism. The patient is currently on 4 weeks of oxygen by nasal cannula. The most recent chest x-ray from 10/27/2023 showed improvement in the left-sided pleural effusion, small lung volumes and bibasilar opacities probably due to atelectasis. Noted the patient also has Pseudomonas in the sputum and the patient is currently on IV Zosyn. Patient remains on pressors and norepinephrine is running at 0.02 mcg/kg/min. Adrenal insufficiency was also suspected and the patient was placed on stress dose hydrocortisone 50 mg every 8 hours. The patient is also on Lasix 80 mg IV daily and Sandostatin 50 mcg every 8 hours subcu and midodrine 10 mg p.o. 3 times daily. Transfer diabetes mellitus, the patient remains on Levemir insulin 15 units in addition to sliding scale coverage. Patient received lactulose 30 g twice a day. The ultrasound-guided paracentesis was done on 10/25/2023 and the patient had a total of 6.2 L of ascitic fluid removed. Most recent echocardiogram was done on 07/05/2024 indicating preserved LV function with moderate degree of mitral regurgitation. The blood cultures during this current admission has been negative. I suspect fluid cultures were also negative. Note that the cell count of the sleep note was low at 7 and there is no clinical indication of SBP. Patient continues to have a soft blood pressure. He was taken off the norepinephrine and earlier this morning, the nursing staff had to put her back for blood pressure drop as his systolic blood pressure dropped and the map was at 56. Currently is on norepinephrine at 0.01 mcg/kg/m he is on 4 L of oxygen by nasal cannula. Swallow evaluation is being repeated to evaluate his swallow and give him his oral medication if possible. Awake and alert and communicating. His white cycles of 4.7 with a hemoglobin of 9.4 and a platelet count of 78. BUN is 43 with a creatinine of 2.64 and a sodium level is at 136 and a potassium level is at 4.4. Urine output is in the order of 2 80 mL over the past 24 hours. Obviously oliguric and the findings on the case and the patient is going to undergo hemodialysis session today. He had the patient's chest x-ray from today shows some atelectatic change in lung bases. No other significant abnormalities noted. His last paracentesis was done on 10/25/2023 and a total of 6.2 L of ascitic fluid was removed. On today's evaluation of 10/29/2023, I am seeing the patient for a follow-up. The patient is awake and alert. He was unable to pass a swallow evaluation and based on that the patient was given a Dobbhoff catheter for enteral feeding and nutritional support. He is currently receiving Nepro at a rate of 20 cc an hour and he is able to tolerate enteral feeding and needed to have a bowel movement. Note that the patient is also on lactulose regarding his liver cirrhosis. He is on oxygen at 4 L/min nasal cannula. He underwent hemodialysis yesterday with a total of 3.5 L of ultrafiltration. IV fluids are currently at KVO as the patient continues to have signs of fluid overload. He is on low-dose norepinephrine which is only at 0.04 mcg/kg/min.Meanwhile, his abdomen is felt to be slightly distended and ultrasound of the abdomen to be done today to assess for any ascites. His last paracentesis was done on 10/24/2023 with a total of 6.2 L of fluid being aspirated from his abdominal fluid. The patient's chest x-ray shows small lung volumes and atelectatic changes in the lung bases bilaterally. The patient is a large clip in the right humeral head. The Dobbho ff catheter is in a good location. Meanwhile, the white cell count at 6.1, hemoglobin is at 9.6 and a platelet count of 92. BUN is 46 with a creatinine of 2.8 and his sodium level is at 133 with a potassium level of 4.2. Blood sugar from this morning was at 168. He is communicating. He is profoundly weak still. He seems to be appropriate. He is aware that he is in the hospital. He is aware of his name and his date of . On today's evaluation of 10/30/2023, the patient is being seen for a follow-up. The patient is calm and comfortable. He remains profoundly weak. He is on room air oxygen. He has a Dobbhoff catheter in place and the patient is on enteral feeding for nutrition support and the patient is receiving Nepro. He underwent a dialysis without the filtration yesterday with a total of 3 L removed. He remains on low-dose norepinephrine at 0.02 mcg/kg/min. Another hemodialysis session is to be done today. Urine output is minimal. No other significant events overnight. No reported aspiration. No signs of any respiratory distress. The patient remains on IV Zosyn. The patient remains on Levemir insulin 15 units and sliding scale coverage. The patient remains on octreotide. The patient remains on stress dose hydrocortisone.As for the labs, the WBC count is at 3 with a mean of 8.9 and platelet count of 60. BUN is 48 with a creatinine of 2.8 and a sodium level is at 135. Ultrasound of the abdomen showed a moderate degree of abdominal ascites. He is stooling. No signs of any significant encephalopathy. As mentioned, remains profoundly weak On today's evaluation of 10/31/2023, the patient is being seen for a follow-up. The patient has no specific complaints. This morning, the patient is on room air oxygen. Dobbhoff catheter still in place and the patient receiving enteral feeding for nutrition support and the patient is currently on Nepro at 30 to 55 cc an hour and the patient had a bowel movement. The patient is currently on minimal dose of norepinephrine which is running at 0.02 mcg/kg/min. There is abdominal ascites and distention. His last hemodialysis session was done yesterday. Urine output is minimal at this point in time. He remains on IV Zosyn. No other significant issues otherwise. The patient is communicating at this point in time. The risk was 4.4 with a hemoglobin 9.5 and a platelet count of 69. BUN is 45 creatinine of 2.6 and a sodium level is at 135. No other significant events since yesterday and the patient's overall condition remains stable. Blood sugar from today is at 186. Objective - Vital Signs Vital signs: Vital Signs Temp 98.4 F 10/31/23 08:00 Pulse 58 L 10/31/23 11:00 Resp 15 10/31/23 11:00 BP 114/76 10/31/23 11:00 Pulse Ox 95 10/31/23 11:00 FiO2 50 10/26/23 16:00 Intake & Output 10/30/23 10/31/23 10/31/23 18:59 06:59 18:59 Intake Total 1157.286 754.843 340 Output Total 2452 76 15 Balance -1294.714 678.843 325 Weight 96.8 kg 95.8 kg Intake: IV 120 120 50 .9NS KVO 120 120 50 Intake, IV Titration 82.286 134.843 Amount Norepinephrine 4 mg In 82.286 34.843 Sodium Chloride 0.9% 250 ml @ 0.03 MCG/KG/MIN 9. 332 mls/hr IV .Q24H [facility] Rx#:[id number] Piperacillin-Tazobactam 3 100 .375 gm In Sodium Chloride 0.9% 100 ml @ 25 mls/hr IVPB Q8H [facility] Rx#: [id number] Oral 0 Tube Feeding 495 440 220 Hemodialysis 400 Other 60 60 70 Output: Urine 52 76 15 Hemodialysis 2400 Other: Voiding Method Indwelling Catheter Indwelling Catheter Indwelling Catheter # Bowel Movements 1 ABP, PAP, CO, CI - Last Documented Arterial Blood Pressure 101/67 - Exam Examination General appearance the patient is calm comfortable no acute distress body mass index is 28.9 on room air oxygen the patient has a Dobbhoff catheter in place. Head exam was generally normal. There was no scleral icterus or corneal arcus. Mucous membranes were moist. Neck was supple and without jugular venous distension, thyromegaly, or carotid bruits. Carotids were easily palpable bilaterally. There was no adenopathy. Lungs were clear to auscultation and percussion, and with normal diaphragmatic excursion. No wheezes or rales were noted. Cardiac exam revealed the PMI to be normally situated and sized. The rhythm was regular and no extrasystoles were noted during several minutes of auscultation. The first and second heart sounds were normal and physiologic splitting of the second heart sound was noted. There were no murmurs, rubs, clicks, or gallops. Abdomen is distended and the patient has ascites. There is fluid wave and shifting dullness. No direct tenderness or rebound tenderness or guarding Extremities reveal +1-2 pitting edema and there is no cyanosis or clubbing neurologically, the patient is awake and alert and the patient does not have any focal neurological deficit. Cranial nerves are essentially intact. Examination of the skin revealed no evidence of significant rashes, suspicious appearing nevi or other concerning lesions. - Labs CBC & Chem 7: 10/31/23 05:22 10/31/23 05:22 Labs: Abnormal Lab Results - Last 24 Hours (Table) 10/30/23 10/30/23 10/30/23 Range/Units 14:33 17:09 21:46 RBC (4.30-5.90) m/uL Hgb (13.0-17.5) gm/dL Hct (39.0-53.0) % MCV (80.0-100.0) fL RDW (11.5-15.5) % Plt Count (150-450) k/uL Lymphocytes # (1.0-4.8) k/uL Macrocytosis Sodium (137-145) mmol/L Potassium 3.1 L (3.5-5.1) mmol/L BUN (9-20) mg/dL Creatinine (0.66-1.25) mg/dL Glucose (74-99) mg/dL POC Glucose (mg/dL) 187 H 218 H (70-110) mg/dL Calcium (8.4-10.2) mg/dL 10/30/23 10/31/23 10/31/23 Range/Units 23:40 05:22 05:22 RBC 2.81 L (4.30-5.90) m/uL Hgb 9.5 L (13.0-17.5) gm/dL Hct 29.7 L (39.0-53.0) % MCV 106.0 H (80.0-100.0) fL RDW 17.6 H (11.5-15.5) % Plt Count 69 L (150-450) k/uL Lymphocytes # 0.6 L (1.0-4.8) k/uL Macrocytosis Marked A Sodium 134 L (137-145) mmol/L Potassium (3.5-5.1) mmol/L BUN 45 H (9-20) mg/dL Creatinine 2.63 H (0.66-1.25) mg/dL Glucose 212 H (74-99) mg/dL POC Glucose (mg/dL) 221 H (70-110) mg/dL Calcium 7.5 L (8.4-10.2) mg/dL 10/31/23 10/31/23 10/31/23 Range/Units 06:57 07:28 11:52 RBC (4.30-5.90) m/uL Hgb (13.0-17.5) gm/dL Hct (39.0-53.0) % MCV (80.0-100.0) fL RDW (11.5-15.5) % Plt Count (150-450) k/uL Lymphocytes # (1.0-4.8) k/uL Macrocytosis Sodium (137-145) mmol/L Potassium (3.5-5.1) mmol/L BUN (9-20) mg/dL Creatinine (0.66-1.25) mg/dL Glucose (74-99) mg/dL POC Glucose (mg/dL) 198 H 179 H 186 H (70-110) mg/dL Calcium (8.4-10.2) mg/dL Assessment and Plan Plan: Acute respiratory failure, secondary to possible aspiration pneumonia, and alcoholic liver disease with alcoholic cirrhosis. Extubation was done on 10/26/2023. The patient is currently on room air oxygen. No signs of any respiratory distress. Hypotension, multifactorial. This is partly related to septic shock and there may be also a component of adrenal insufficiency the patient remains on high- dose hydrocortisone and the patient is currently on pressors in addition to midodrine the patient remains on low-dose norepinephrine which is running at 0.0 2 mcg/kg/min. Pseudomonas aeruginosa tracheobronchitis/bronchopneumonia. The patient is currently covered with IV Zosyn Liver cirrhosis with stigmata of chronic liver failure Ascites with a large-volume paracentesis that was done on 10/25/2023 with a total of 6.2 L of ascitic fluid removal. No evidence of SBP and the cultures are negative, repeat ultrasound of the abdomen is to be done today. Abdomen is slig htly distended. Repeat ultrasound abdomen shows moderate degree of ascites. Abdomen is slightly distended. History of alcoholism Acute kidney injury secondary to ATN due to septic shock. Patient is according hemodialysis due to volume overload. There is improvement with ultrafiltration. The patient is undergoing periodic dialysis. Last hemodialysis session was yesterday with a total of 3 L of fluid removal. The patient continues to show signs of fluid overload. The patient denies hemodialysis session was done yesterday COPD Diabetes mellitus type 2 Coronary artery disease and based on echocardiogram that was done in June 2023, the patient has a preserved LV function with moderate degree of mitral regurgitation Hypothyroidism Non-anion gap metabolic acidosis secondary to renal failure, recovered Anemia of chronic disease Chronic thrombocytopenia Plan Currently on room air oxygen and overall respiratory status is stable Will attempt to wean off the pressors and discontinue Continue IV Zosyn Continue stress dose hydrocortisone Dialysis per nephrology Continue enteral feeding through the Dobbhoff Reevaluate swallow Continue lactulose 30 g twice a day May need another paracentesis with the next 24-48 hours We'll continue to follow. He is a full code Critical care evaluation, more than 30 minutes
--- NOTE | 2023-10-31 13:33 | P.PN ---
Subjective Progress Note Date: 10/31/23 Patient is a 63-year-old male with known liver disease requiring weekly paracentesis, recently diagnosed hepatorenal syndrome, adrenal insufficiency, diabetes, COPD, and coronary artery disease who presented to the ER via EMS after being found unresponsive at home. In the ER he underwent extensive evalua tion. On arrival he was hypothermic and hypoglycemic with a blood sugar of 47 despite treatment by EMS. Initial labs in the ER included CBC, coags, CMP, TSH, troponin, BNP, and ABG which were remarkable for hemoglobin 10, platelet count 79, pH 7.2, bicarb 18, sodium 132, potassium 5.3, BUN 87, creatinine 3.54 up from 2.15 most recently, magnesium 2.5, BNP 6340, and TSH of 5.680. Initial chest x-ray as reviewed by myself shows significant right-sided pleural effusion with increased pulmonary vascular congestion. In the ER he was started on D5 half normal due to his persistent hypoglycemia, these were warmed fluids to help with his hypothermia. Patient became more and more dyspneic. He ultimately required vasopressors due to prolonged hypotension, and intubation due to worsening respiratory distress from IV fluids. He was started on propofol and norepinephrine. Critical care was consulted. Arrangements were made for admission to the ICU. He was transitioned to D10 wiht sodium bicarb. He was seen by nephrology and required emergent HD for hyperkalemia and acidosis. Now off of bicarb drip. Still requiring hemodialysis. Patient now extubated. Remains on IV pressors. Patient seen and examined at bedside. No acute events overnight. Still minimal urine output. Charles catheter in place. Dobbhoff tube in place. Vital signs reviewed General: Nontoxic, no distress, appears older than at stated age Cardiovascular: S1S2 reg, no murmur Lungs: Course bs bilateral, no rhonchi, no rales, no accessory muscle use Abdominal: Tense abdomen, nontender to palpation, no guarding Ext: No gross muscle atrophy, 2+ edema b/l lower extremities, no contractures Neuro: Alert and oriented x 3 Psych: Cooperative Assessment/Plan: Decompensated alcoholic liver cirrhosis Acute hypoxic respiratory failure, resolved Pseudomonas pneumonia Acute metabolic encephalopathy secondary to above, resolved Shock, possibly septic, still requiring pressors Pancytopenia, likely in the setting of acute illness as well as liver disease -ICU note reviewed, wean off vasopressors, continue IV Zosyn, continue Dobbhoff, may need another swallow study, may need another paracentesis in 24 to 48 hours -IV Zosyn 3.375 g every 8 hours - hold home aldactone and lisinopril due to hypotension - hold remeron and xanax as patient is currently on vent Acute kidney injury, probable hepatorenal disease, now on dialysis Chronic kidney disease stage III Hyerpvolemia hyponatremia Hypokalemia Hyperkalemia, resolved Meatbolic acidosis, resolved Hyperphosphatemia, secondary to SAHARA - Nephrology note reviewed, continue dialysis, octreotide discontinued - Midodrine 10 mg 3 times daily Insulin dependent diabetes Prolonged hypoglycemia in an insulin-dependent diabetic, resolved -Levemir 15 untis at night - SSI q 6 hours, monitor for hypoglycemia - follow BS Adrenal insufficiency now with shock -Patient is on hydrocortisone at home -Solu-Cortef to 50 mg IV every 8 hours Chronic: Coronary artery disease COPD without exacerbation Hypothyroidism Imaging: Chest x-ray as reviewed by myself Dobbhoff tube potentially in the first part of duodenum, unable to visualize the entirety lung camacho, otherwise no new changes. Data Review: WBC 4.4, hemoglobin 9.5, platelets 69, potassium 3.5, creatinine 2.63, blood sugars range between 1 79-2 12 DVT prophylaxis: SCDs Anticipated discharge date: Pending Clinical Course Anticipated discharge place: Pending Clinical Course Objective - Vital Signs Vital signs: Vital Signs Temp 97.7 F 10/31/23 13:20 Pulse 65 10/31/23 13:20 Resp 14 10/31/23 13:20 BP 114/73 10/31/23 13:20 Pulse Ox 93 L 10/31/23 13:00 FiO2 50 10/26/23 16:00 Intake & Output 10/30/23 10/31/23 10/31/23 18:59 06:59 18:59 Intake Total 1157.286 628.350 8357 Output Total 2452 76 2525 Balance -1294.714 678.843 -1385 Weight 96.8 kg 95.8 kg Intake: IV 120 120 170 .9NS KVO 120 120 70 Piperacillin-Tazobactam 3 100 .375 gm In Sodium Chloride 0.9% 100 ml @ 25 mls/hr IVPB Q8HR [facility] Rx# :[id number] Intake, IV Titration 82.286 134.843 Amount Norepinephrine 4 mg In 82.286 34.843 Sodium Chloride 0.9% 250 ml @ 0.03 MCG/KG/MIN 9. 332 mls/hr IV .Q24H [facility] Rx#:[id number] Piperacillin-Tazobactam 3 100 .375 gm In Sodium Chloride 0.9% 100 ml @ 25 mls/hr IVPB Q8H [facility] Rx#: [id number] Oral 0 Tube Feeding 495 440 330 Hemodialysis 400 500 Other 60 60 140 Output: Urine 52 76 25 Hemodialysis 2400 2500 Other: Voiding Method Indwelling Catheter Indwelling Catheter Indwelling Catheter # Bowel Movements 1 ABP, PAP, CO, CI - Last Documented Arterial Blood Pressure 101/67 - Labs CBC & Chem 7: 10/31/23 05:22 10/31/23 05:22 Labs: Abnormal Lab Results - Last 24 Hours (Table) 10/30/23 10/30/23 10/30/23 Range/Units 14:33 17:09 21:46 RBC (4.30-5.90) m/uL Hgb (13.0-17.5) gm/dL Hct (39.0-53.0) % MCV (80.0-100.0) fL RDW (11.5-15.5) % Plt Count (150-450) k/uL Lymphocytes # (1.0-4.8) k/uL Macrocytosis Sodium (137-145) mmol/L Potassium 3.1 L (3.5-5.1) mmol/L BUN (9-20) mg/dL Creatinine (0.66-1.25) mg/dL Glucose (74-99) mg/dL POC Glucose (mg/dL) 187 H 218 H (70-110) mg/dL Calcium (8.4-10.2) mg/dL 10/30/23 10/31/23 10/31/23 Range/Units 23:40 05:22 05:22 RBC 2.81 L (4.30-5.90) m/uL Hgb 9.5 L (13.0-17.5) gm/dL Hct 29.7 L (39.0-53.0) % MCV 106.0 H (80.0-100.0) fL RDW 17.6 H (11.5-15.5) % Plt Count 69 L (150-450) k/uL Lymphocytes # 0.6 L (1.0-4.8) k/uL Macrocytosis Marked A Sodium 134 L (137-145) mmol/L Potassium (3.5-5.1) mmol/L BUN 45 H (9-20) mg/dL Creatinine 2.63 H (0.66-1.25) mg/dL Glucose 212 H (74-99) mg/dL POC Glucose (mg/dL) 221 H (70-110) mg/dL Calcium 7.5 L (8.4-10.2) mg/dL 10/31/23 10/31/23 10/31/23 Range/Units 06:57 07:28 11:52 RBC (4.30-5.90) m/uL Hgb (13.0-17.5) gm/dL Hct (39.0-53.0) % MCV (80.0-100.0) fL RDW (11.5-15.5) % Plt Count (150-450) k/uL Lymphocytes # (1.0-4.8) k/uL Macrocytosis Sodium (137-145) mmol/L Potassium (3.5-5.1) mmol/L BUN (9-20) mg/dL Creatinine (0.66-1.25) mg/dL Glucose (74-99) mg/dL POC Glucose (mg/dL) 198 H 179 H 186 H (70-110) mg/dL Calcium (8.4-10.2) mg/dL
[2023-10-31 18:10] LABS: Glucose,Whole Blood 262 mg/dL (70-110)
[2023-10-31 21:19] LABS: Glucose,Whole Blood 298 mg/dL (70-110)
[2023-11-01 00:23] LABS: Glucose,Whole Blood 302 mg/dL (70-110)
--- NOTE | 2023-11-01 01:24 | XR ---
EXAM: XR Chest, 1 View CLINICAL HISTORY: ITS.REASON XR Reason: Dobhoff placement TECHNIQUE: Frontal view of the chest. COMPARISON: XR Chest dated 10/31/2023 at 0644 FINDINGS: Lungs: Mild bibasilar atelectasis. Pleural space: Unremarkable. No pneumothorax. Heart: Unremarkable. No cardiomegaly. Mediastinum: Unremarkable. Normal mediastinal contour. Bones/joints: Unremarkable. No acute fracture. Tubes, lines and devices: Right IJ venous catheter. Tip likely at the caval atrial junction. Dobbhoff tube tip in the distal stomach or duodenal bulb region. IMPRESSION: Dobbhoff tube tip in the distal stomach or duodenal bulb region.
[2023-11-01 05:01] LABS: Anisocytosis Slight; Basophils % (A) 0 %; Eosinophils % (A) 1 %; HCT 29.1 % (39.0-53.0); HGB 9.7 gm/dL (13.0-17.5); Hypochromasia Slight; Lymphocytes # (A) 0.6 k/uL (1.0-4.8); Lymphocytes % (A) 18 %; MCH 34.9 pg (25.0-35.0); MCHC 33.3 g/dL (31.0-37.0); MCV 104.9 fL (80.0-100.0); Macrocytosis Marked; Mean Platelet Volume 9.7; Monocytes # (A) 0.2 k/uL (0-1.0); Monocytes % (A) 4 %; Neutrophils # (A) 2.6 k/uL (1.3-7.7); Neutrophils % (A) 75 %; RBC 2.78 m/uL (4.30-5.90); RDW 17.8 % (11.5-15.5); WBC 3.5 k/uL (3.8-10.6)
[2023-11-01 05:20] LABS: Platelet Count 42 k/uL (150-450)
[2023-11-01 05:21] LABS: African American GFR (CKD) 35 (>60 ml/min/1.73 sqM); Anion Gap 7 mmol/L; Blood Urea Nitrogen 43 mg/dL (9-20); Calcium 7.6 mg/dL (8.4-10.2); Carbon Dioxide 21 mmol/L (22-30); Chloride 107 mmol/L (98-107); Glucose 221 mg/dL (74-99); Non-African American GFR(CKD) 30 (>60 ml/min/1.73 sqM); Potassium 3.4 mmol/L (3.5-5.1); Sodium 135 mmol/L (137-145)
[2023-11-01 06:45] LABS: Glucose,Whole Blood 256 mg/dL (70-110)
[2023-11-01] MEDS: POTASSIUM BICARBONATE/CIT AC 20 MEQ TABLET.EFF PO ONE (10:42)
[2023-11-01] MEDS: POTASSIUM CHLORIDE 20 MEQ in WATER FOR INJECTION 1 100ML.BAG IVPB STA (10:43)
--- NOTE | 2023-11-01 11:05 | P.PN ---
Subjective Progress Note Date: 11/01/23 10/28/2023, the patient is being seen for a follow-up. 63-year-old male patient with acute respiratory failure related to an underlying aspiration pneumonia with known history of alcoholic liver disease/cirrhosis and liver failure. The patient was extubated on 10/26/2023. Patient is known to have COPD and he grew also Pseudomonas aeruginosa in the sputum. The patient also has chronic liver, chronic kidney disease with an acute kidney injury attributed to ATN knowing that the patient's baseline creatinine 10/01/2023 was 1.02. He was started on hemodialysis on 10/21/2023 due to volume overload and hyperkalemia as the patient was having oliguria. The patient has no significant hydronephrosis., coronary disease, diabetes mellitus, hypothyroidism and history of chronic alcoholism. The patient is currently on 4 weeks of oxygen by nasal cannula. The most recent chest x-ray from 10/27/2023 showed improvement in the left-sided pleural effusion, small lung volumes and bibasilar opacities probably due to atelectasis. Noted the patient also has Pseudomonas in the sputum and the patient is currently on IV Zosyn. Patient remains on pressors and norepinephrine is running at 0.02 mcg/kg/min. Adrenal insufficiency was also suspected and the patient was placed on stress dose hydrocortisone 50 mg every 8 hours. The patient is also on Lasix 80 mg IV daily and Sandostatin 50 mcg every 8 hours subcu and midodrine 10 mg p.o. 3 times daily. Transfer diabetes mellitus, the patient remains on Levemir insulin 15 units in addition to sliding scale coverage. Patient received lactulose 30 g twice a day. The ultrasound-guided paracentesis was done on 10/25/2023 and the patient had a total of 6.2 L of ascitic fluid removed. Most recent echocardiogram was done on 07/05/2024 indicating preserved LV function with moderate degree of mitral regurgitation. The blood cultures during this current admission has been negative. I suspect fluid cultures were also negative. Note that the cell count of the sleep note was low at 7 and there is no clinical indication of SBP. Patient continues to have a soft blood pressure. He was taken off the norepinephrine and earlier this morning, the nursing staff had to put her back for blood pressure drop as his systolic blood pressure dropped and the map was at 56. Currently is on norepinephrine at 0.01 mcg/kg/m he is on 4 L of oxygen by nasal cannula. Swallow evaluation is being repeated to evaluate his swallow and give him his oral medication if possible. Awake and alert and communicating. His white cycles of 4.7 with a hemoglobin of 9.4 and a platelet count of 78. BUN is 43 with a creatinine of 2.64 and a sodium level is at 136 and a potassium level is at 4.4. Urine output is in the order of 2 80 mL over the past 24 hours. Obviously oliguric and the findings on the case and the patient is going to undergo hemodialysis session today. He had the patient's chest x-ray from today shows some atelectatic change in lung bases. No other significant abnormalities noted. His last paracentesis was done on 10/25/2023 and a total of 6.2 L of ascitic fluid was removed. On today's evaluation of 10/29/2023, I am seeing the patient for a follow-up. The patient is awake and alert. He was unable to pass a swallow evaluation and based on that the patient was given a Dobbhoff catheter for enteral feeding and nutritional support. He is currently receiving Nepro at a rate of 20 cc an hour and he is able to tolerate enteral feeding and needed to have a bowel movement. Note that the patient is also on lactulose regarding his liver cirrhosis. He is on oxygen at 4 L/min nasal cannula. He underwent hemodialysis yesterday with a total of 3.5 L of ultrafiltration. IV fluids are currently at KVO as the patient continues to have signs of fluid overload. He is on low-dose norepinephrine which is only at 0.04 mcg/kg/min.Meanwhile, his abdomen is felt to be slightly distended and ultrasound of the abdomen to be done today to assess for any ascites. His last paracentesis was done on 10/24/2023 with a total of 6.2 L of fluid being aspirated from his abdominal fluid. The patient's chest x-ray shows small lung volumes and atelectatic changes in the lung bases bilaterally. The patient is a large clip in the right humeral head. The Dobbho ff catheter is in a good location. Meanwhile, the white cell count at 6.1, hemoglobin is at 9.6 and a platelet count of 92. BUN is 46 with a creatinine of 2.8 and his sodium level is at 133 with a potassium level of 4.2. Blood sugar from this morning was at 168. He is communicating. He is profoundly weak still. He seems to be appropriate. He is aware that he is in the hospital. He is aware of his name and his date of . On today's evaluation of 10/30/2023, the patient is being seen for a follow-up. The patient is calm and comfortable. He remains profoundly weak. He is on room air oxygen. He has a Dobbhoff catheter in place and the patient is on enteral feeding for nutrition support and the patient is receiving Nepro. He underwent a dialysis without the filtration yesterday with a total of 3 L removed. He remains on low-dose norepinephrine at 0.02 mcg/kg/min. Another hemodialysis session is to be done today. Urine output is minimal. No other significant events overnight. No reported aspiration. No signs of any respiratory distress. The patient remains on IV Zosyn. The patient remains on Levemir insulin 15 units and sliding scale coverage. The patient remains on octreotide. The patient remains on stress dose hydrocortisone.As for the labs, the WBC count is at 3 with a mean of 8.9 and platelet count of 60. BUN is 48 with a creatinine of 2.8 and a sodium level is at 135. Ultrasound of the abdomen showed a moderate degree of abdominal ascites. He is stooling. No signs of any significant encephalopathy. As mentioned, remains profoundly weak On today's evaluation of 10/31/2023, the patient is being seen for a follow-up. The patient has no specific complaints. This morning, the patient is on room air oxygen. Dobbhoff catheter still in place and the patient receiving enteral feeding for nutrition support and the patient is currently on Nepro at 30 to 55 cc an hour and the patient had a bowel movement. The patient is currently on minimal dose of norepinephrine which is running at 0.02 mcg/kg/min. There is abdominal ascites and distention. His last hemodialysis session was done yesterday. Urine output is minimal at this point in time. He remains on IV Zosyn. No other significant issues otherwise. The patient is communicating at this point in time. The risk was 4.4 with a hemoglobin 9.5 and a platelet count of 69. BUN is 45 creatinine of 2.6 and a sodium level is at 135. No other significant events since yesterday and the patient's overall condition remains stable. Blood sugar from today is at 186. On today's evaluation of 11/01/2023, I am seeing the patient for a follow-up. The patient is awake and alert and communicating. No signs of any encephalopathy. The patient is going to undergo a barium swallow today and the patient will also have a permacath inserted for long-term dialysis. Based on that, his enteral feeding has been discontinued and the patient continues to have a Dobbhoff in place. He is currently on 2 L of oxygen by nasal cannula. His last hemodialysis session was done yesterday and the patient remains on norepinephrine 0.01 mcg/kg/min. BUN is a 43 with a creatinine of 2.2 and a sodium noted at 135 with a potassium level of 3.4. Serum bicarb is a 21. There is close of 3.5 with a hemoglobin of 9.7 and a platelet count of 42. The patient is currently on 2 L of O2 nasal cannula. Rest of the medication remains unchanged and the patient remains on IV Zosyn.The chest x-ray from today shows no evidence of any significant airspace disease. Atelectatic changes in the lung bases and the Dobbhoff is in a good location. Objective - Vital Signs Vital signs: Vital Signs Temp 98.6 F 11/01/23 04:00 Pulse 58 L 11/01/23 07:00 Resp 16 11/01/23 07:00 BP 100/67 11/01/23 07:00 Pulse Ox 94 L 11/01/23 07:00 FiO2 50 10/26/23 16:00 Intake & Output 10/31/23 11/01/23 11/01/23 18:59 06:59 18:59 Intake Total 1618.375 693.338 20 Output Total 2545 68 5 Balance -926.625 625.338 15 Weight 95.6 kg Intake: IV 220 320 20 .9NS KVO 120 120 20 Piperacillin-Tazobactam 3 200 .375 gm In Sodium Chloride 0.9% 100 ml @ 25 mls/hr IVPB Q8H [facility] Rx#: [id number] Piperacillin-Tazobactam 3 100 .375 gm In Sodium Chloride 0.9% 100 ml @ 25 mls/hr IVPB Q8HR [facility] Rx# :[id number] Intake, IV Titration 83.375 68.338 Amount Norepinephrine 4 mg In 83.375 68.338 Sodium Chloride 0.9% 250 ml @ 0.03 MCG/KG/MIN 9. 332 mls/hr IV .Q24H [facility] Rx#:[id number] Tube Feeding 605 275 Hemodialysis 500 Other 210 30 Output: Urine 45 68 5 Hemodialysis 2500 Other: Voiding Method Indwelling Catheter Indwelling Catheter # Bowel Movements 1 ABP, PAP, CO, CI - Last Documented Arterial Blood Pressure 101/67 - Exam Examination General appearance the patient is calm comfortable no acute distress body mass index is 28.9 on room air oxygen the patient has a Dobbhoff catheter in place. Head exam was generally normal. There was no scleral icterus or corneal arcus. Mucous membranes were moist. Neck was supple and without jugular venous distension, thyromegaly, or carotid bruits. Carotids were easily palpable bilaterally. There was no adenopathy. Lungs were clear to auscultation and percussion, and with normal diaphragmatic excursion. No wheezes or rales were noted. Cardiac exam revealed the PMI to be normally situated and sized. The rhythm was regular and no extrasystoles were noted during several minutes of auscultation. The first and second heart sounds were normal and physiologic splitting of the second heart sound was noted. There were no murmurs, rubs, clicks, or gallops. Abdomen is distended and the patient has ascites. There is fluid wave and shifting dullness. No direct tenderness or rebound tenderness or guarding Extremities reveal +1-2 pitting edema and there is no cyanosis or clubbing neurologically, the patient is awake and alert and the patient does not have any focal neurological deficit. Cranial nerves are essentially intact. Examination of the skin revealed no evidence of significant rashes, suspicious appearing nevi or other concerning lesions. - Labs CBC & Chem 7: 11/01/23 04:32 11/01/23 04:32 Labs: Abnormal Lab Results - Last 24 Hours (Table) 10/31/23 10/31/23 10/31/23 Range/Units 11:52 18:09 21:13 WBC (3.8-10.6) k/uL RBC (4.30-5.90) m/uL Hgb (13.0-17.5) gm/dL Hct (39.0-53.0) % MCV (80.0-100.0) fL RDW (11.5-15.5) % Plt Count (150-450) k/uL Lymphocytes # (1.0-4.8) k/uL Macrocytosis Sodium (137-145) mmol/L Potassium (3.5-5.1) mmol/L Carbon Dioxide (22-30) mmol/L BUN (9-20) mg/dL Creatinine (0.66-1.25) mg/dL Glucose (74-99) mg/dL POC Glucose (mg/dL) 186 H 262 H 298 H (70-110) mg/dL Calcium (8.4-10.2) mg/dL 11/01/23 11/01/23 11/01/23 Range/Units 00:21 04:32 04:32 WBC 3.5 L (3.8-10.6) k/uL RBC 2.78 L (4.30-5.90) m/uL Hgb 9.7 L (13.0-17.5) gm/dL Hct 29.1 L (39.0-53.0) % MCV 104.9 H (80.0-100.0) fL RDW 17.8 H (11.5-15.5) % Plt Count 42 L (150-450) k/uL Lymphocytes # 0.6 L (1.0-4.8) k/uL Macrocytosis Marked A Sodium 135 L (137-145) mmol/L Potassium 3.4 L (3.5-5.1) mmol/L Carbon Dioxide 21 L (22-30) mmol/L BUN 43 H (9-20) mg/dL Creatinine 2.27 H (0.66-1.25) mg/dL Glucose 221 H (74-99) mg/dL POC Glucose (mg/dL) 302 H (70-110) mg/dL Calcium 7.6 L (8.4-10.2) mg/dL 11/01/23 Range/Units 06:43 WBC (3.8-10.6) k/uL RBC (4.30-5.90) m/uL Hgb (13.0-17.5) gm/dL Hct (39.0-53.0) % MCV (80.0-100.0) fL RDW (11.5-15.5) % Plt Count (150-450) k/uL Lymphocytes # (1.0-4.8) k/uL Macrocytosis Sodium (137-145) mmol/L Potassium (3.5-5.1) mmol/L Carbon Dioxide (22-30) mmol/L BUN (9-20) mg/dL Creatinine (0.66-1.25) mg/dL Glucose (74-99) mg/dL POC Glucose (mg/dL) 256 H (70-110) mg/dL Calcium (8.4-10.2) mg/dL Assessment and Plan Plan: Acute respiratory failure, secondary to possible aspiration pneumonia, and alcoholic liver disease with alcoholic cirrhosis. Extubation was done on 10/26/2023. The patient is currently on room air oxygen. No signs of any respiratory distress. The patient is currently on 2 L of oxygen nasal cannula. Chest x-ray from 11/01/2023 shows some atelectatic changes in the lung bases. No other significant abnormalities. Hypotension, multifactorial. This is partly related to septic shock and there may be also a component of adrenal insufficiency the patient remains on high- dose hydrocortisone and the patient is currently on pressors in addition to midodrine the patient remains on low-dose norepinephrine which is running at 0.0 2 mcg/kg/min. Pseudomonas aeruginosa tracheobronchitis/bronchopneumonia. The patient is currently covered with IV Zosyn, completing a 7-day course Liver cirrhosis with stigmata of chronic liver failure Ascites with a large-volume paracentesis that was done on 10/25/2023 with a total of 6.2 L of ascitic fluid removal. No evidence of SBP and the cultures are negative, repeat ultrasound of the abdomen is to be done today. Abdomen is slightly distended. Repeat ultrasound abdomen shows moderate degree of ascites. Abdomen is slightly distended. History of alcoholism Acute kidney injury secondary to ATN due to septic shock. Patient is according hemodialysis due to volume overload. There is improvement with ultrafiltration. The patient is undergoing periodic dialysis. Last hemodialysis session was yesterday COPD Diabetes mellitus type 2 Coronary artery disease and based on echocardiogram that was done in June 2023, the patient has a preserved LV function with moderate degree of mitral regurgitation Hypothyroidism Non-anion gap metabolic acidosis secondary to renal failure, recovered Anemia of chronic disease Chronic thrombocytopenia Plan Insertion of a permacath today Modified barium swallow Will remove the Dobbhoff if the patient is able to swallow appropriately Currently on room air oxygen and overall respiratory status is stable Will attempt to wean off the pressors and discontinue Continue IV Zosyn, and discontinued antibiotic after completing a 7-day course Continue stress dose hydrocortisone Dialysis per nephrology Keep the tube feeds on hold and keep the Dobbhoff in place for now Continue lactulose 30 g twice a day No need for paracentesis abdominal exam is soft We'll continue to follow. He is a full code
--- NOTE | 2023-11-01 11:25 | P.PN ---
Subjective Progress Note Date: 11/01/23 Patient is a 63-year-old male with known liver disease requiring weekly paracentesis, recently diagnosed hepatorenal syndrome, adrenal insufficiency, diabetes, COPD, and coronary artery disease who presented to the ER via EMS after being found unresponsive at home. In the ER he underwent extensive evalua tion. On arrival he was hypothermic and hypoglycemic with a blood sugar of 47 despite treatment by EMS. Initial labs in the ER included CBC, coags, CMP, TSH, troponin, BNP, and ABG which were remarkable for hemoglobin 10, platelet count 79, pH 7.2, bicarb 18, sodium 132, potassium 5.3, BUN 87, creatinine 3.54 up from 2.15 most recently, magnesium 2.5, BNP 6340, and TSH of 5.680. Initial chest x-ray showed significant right-sided pleural effusion with increased pulmonary vascular congestion. In the ER he was started on D5 half normal due to his persistent hypoglycemia, these were warmed fluids to help with his hypothermia. Patient became more and more dyspneic. He ultimately required va sopressors due to prolonged hypotension, and intubation due to worsening respiratory distress from IV fluids. He was started on propofol and norepinephrine. Critical care was consulted. Admitted for decompensated alcoholic liver cirrhosis, hypoxic respiratory failure, acute metabolic encephalopathy, and likely septic shock with likely source being Pseudomonas pneumonia. Due to worsening renal failure, patient started on hemodialysis. Nephrology following. Patient now extubated. Now off of vasopressors. Has been having difficulty with swallowing, currently getting tube feeds through bhoff tube. Patient seen and examined at bedside. No acute events overnight. Still minimal urine output. Charles catheter in place. Dobbhoff tube in place. Vital signs reviewed General: Nontoxic, no distress, appears older than at stated age Cardiovascular: S1S2 reg, no murmur Lungs: Course bs bilateral, no rhonchi, no rales, no accessory muscle use Abdominal: Distended abdomen, nontender to palpation, no guarding Ext: No gross muscle atrophy, 2+ edema b/l lower extremities, no contractures Neuro: Alert and oriented x 3 Psych: Cooperative Assessment/Plan: Decompensated alcoholic liver cirrhosis Acute hypoxic respiratory failure, on nasal cannula Pseudomonas pneumonia Acute metabolic encephalopathy secondary to above, resolved Septic shock, resolved Pancytopenia, likely in the setting of acute illness as well as liver disease -ICU note reviewed, continue IV Zosyn 3.375 g every 8 hours, BM swallow study - hold home aldactone and lisinopril due to hypotension - hold remeron and xanax Acute kidney injury, probable hepatorenal disease, now on dialysis Chronic kidney disease stage III Hyerpvolemia hyponatremia Hypokalemia Hyperkalemia, resolved Meatbolic acidosis, resolved Hyperphosphatemia, secondary to SAHARA -Discussed management with nephrology, pending permacath placement - Midodrine 10 mg 3 times daily Insulin dependent diabetes Prolonged hypoglycemia in an insulin-dependent diabetic, resolved -Levemir increased to 25 units at night- SSI q 6 hours, monitor for hypoglycemia - follow BS Adrenal insufficiency now with shock -Patient is on hydrocortisone at home -Solu-Cortef to 50 mg IV every 8 hours Chronic: Coronary artery disease COPD without exacerbation Hypothyroidism Imaging: Chest x-ray as reviewed by myself, no new opacities Data Review: WBC 3.5, hemoglobin 9.7, platelet 42, sodium 135, potassium 3.4, creatinine 2.27, glucose range between 221-302, magnesium 2 DVT prophylaxis: SCDs Anticipated discharge date: Pending Clinical Course Anticipated discharge place: Pending Clinical Course Objective - Vital Signs Vital signs: Vital Signs Temp 98 F 11/01/23 08:00 Pulse 54 L 11/01/23 10:00 Resp 14 11/01/23 10:00 BP 117/68 11/01/23 10:00 Pulse Ox 97 11/01/23 10:00 FiO2 50 10/26/23 16:00 Intake & Output 10/31/23 11/01/23 11/01/23 18:59 06:59 18:59 Intake Total 1618.375 693.338 190.111 Output Total 2545 68 15 Balance -926.625 625.338 175.111 Weight 95.6 kg 95.6 kg Intake: IV 220 320 40 .9NS KVO 120 120 40 Piperacillin-Tazobactam 3 200 .375 gm In Sodium Chloride 0.9% 100 ml @ 25 mls/hr IVPB Q8H [facility] Rx#: [id number] Piperacillin-Tazobactam 3 100 .375 gm In Sodium Chloride 0.9% 100 ml @ 25 mls/hr IVPB Q8HR [facility] Rx# :[id number] Intake, IV Titration 83.375 68.338 110.111 Amount Norepinephrine 4 mg In 83.375 68.338 10.111 Sodium Chloride 0.9% 250 ml @ 0.03 MCG/KG/MIN 9. 332 mls/hr IV .Q24H [facility] Rx#:[id number] Potassium Chloride 20 meq 100 In Water For Injection 1 100ml.bag @ 50 mls/hr IVPB ONCE STA Rx#: [id number] Tube Feeding 605 275 Hemodialysis 500 Other 210 30 40 Output: Urine 45 68 15 Hemodialysis 2500 Other: Voiding Method Indwelling Catheter Indwelling Catheter Indwelling Catheter # Bowel Movements 1 ABP, PAP, CO, CI - Last Documented Arterial Blood Pressure 101/67 - Labs CBC & Chem 7: 11/01/23 04:32 11/01/23 04:32 Labs: Abnormal Lab Results - Last 24 Hours (Table) 10/31/23 10/31/23 10/31/23 Range/Units 11:52 18:09 21:13 WBC (3.8-10.6) k/uL RBC (4.30-5.90) m/uL Hgb (13.0-17.5) gm/dL Hct (39.0-53.0) % MCV (80.0-100.0) fL RDW (11.5-15.5) % Plt Count (150-450) k/uL Lymphocytes # (1.0-4.8) k/uL Macrocytosis Sodium (137-145) mmol/L Potassium (3.5-5.1) mmol/L Carbon Dioxide (22-30) mmol/L BUN (9-20) mg/dL Creatinine (0.66-1.25) mg/dL Glucose (74-99) mg/dL POC Glucose (mg/dL) 186 H 262 H 298 H (70-110) mg/dL Calcium (8.4-10.2) mg/dL 11/01/23 11/01/23 11/01/23 Range/Units 00:21 04:32 04:32 WBC 3.5 L (3.8-10.6) k/uL RBC 2.78 L (4.30-5.90) m/uL Hgb 9.7 L (13.0-17.5) gm/dL Hct 29.1 L (39.0-53.0) % MCV 104.9 H (80.0-100.0) fL RDW 17.8 H (11.5-15.5) % Plt Count 42 L (150-450) k/uL Lymphocytes # 0.6 L (1.0-4.8) k/uL Macrocytosis Marked A Sodium 135 L (137-145) mmol/L Potassium 3.4 L (3.5-5.1) mmol/L Carbon Dioxide 21 L (22-30) mmol/L BUN 43 H (9-20) mg/dL Creatinine 2.27 H (0.66-1.25) mg/dL Glucose 221 H (74-99) mg/dL POC Glucose (mg/dL) 302 H (70-110) mg/dL Calcium 7.6 L (8.4-10.2) mg/dL 11/01/23 Range/Units 06:43 WBC (3.8-10.6) k/uL RBC (4.30-5.90) m/uL Hgb (13.0-17.5) gm/dL Hct (39.0-53.0) % MCV (80.0-100.0) fL RDW (11.5-15.5) % Plt Count (150-450) k/uL Lymphocytes # (1.0-4.8) k/uL Macrocytosis Sodium (137-145) mmol/L Potassium (3.5-5.1) mmol/L Carbon Dioxide (22-30) mmol/L BUN (9-20) mg/dL Creatinine (0.66-1.25) mg/dL Glucose (74-99) mg/dL POC Glucose (mg/dL) 256 H (70-110) mg/dL Calcium (8.4-10.2) mg/dL
[2023-11-01 11:58] LABS: Glucose,Whole Blood 181 mg/dL (70-110)
[2023-11-01] MEDS: MIDODRINE 5 MG TAB PO SCH (12:35)
[2023-11-01] MEDS: MIDAZOLAM 2 MG/2 ML VIAL IVP ONE (13:52)
[2023-11-01] MEDS: LIDOCAINE 1% INJ 10MG/ML (30 ML VIAL-PF) SQ ONE (13:52)
--- NOTE | 2023-11-01 14:50 | IR ---
EXAMINATION TYPE: IR cvc insert central tunneled DATE OF EXAM: 11/01/2023 COMPARISON: NONE HISTORY: Fluoroscopy time. Fluoroscopy was provided to the referring clinician.
--- NOTE | 2023-11-01 15:04 | XR ---
EXAMINATION TYPE: XR chest 1V confirm line plcmt DATE OF EXAM: 11/01/2023 HISTORY: Shortness of breath. COMPARISON: October 31, 2023 TECHNIQUE: Single view of the chest is submitted. FINDINGS: Nasogastric tube is noted to be in place. Right IJ central venous line appropriately placed distal ti p overlying the SVC. Large bore central venous line left internal jugular with distal tip at the atri ocaval junction. No evidence for pneumothorax. Basilar atelectasis or infiltrates remain stable. There is no evidence for focal infiltrate. The heart is stable. Hilar and mediastinal structures are within normal limits. Degenerative changes are seen of the dorsal spine. IMPRESSION: 1. As above
[2023-11-01 16:52] LABS: Anisocytosis Slight; HCT 34.2 % (39.0-53.0); Hypochromasia Slight; MCH 33.3 pg (25.0-35.0); MCHC 32.1 g/dL (31.0-37.0); MCV 103.7 fL (80.0-100.0); Macrocytosis Moderate; Mean Platelet Volume 10.3; RBC 3.29 m/uL (4.30-5.90); RDW 18.1 % (11.5-15.5); WBC 11.8 k/uL (3.8-10.6)
[2023-11-01 16:53] LABS: Platelet Count 102 k/uL (150-450)
[2023-11-01 17:03] LABS: Glucose,Whole Blood 142 mg/dL (70-110)
[2023-11-01] MEDS: INSULIN ASPART (NovoLOG) 100 UNIT/ML VIAL SQ SCH (17:07)
[2023-11-01 17:14] LABS: Anisocytosis Slight; Basophils % (A) 0 %; Eosinophils # (A) 0.1 k/uL (0-0.7); Eosinophils % (A) 1 %; HCT 34.7 % (39.0-53.0); HGB 11.3 gm/dL (13.0-17.5); Hypochromasia Slight; Lymphocytes # (A) 1.8 k/uL (1.0-4.8); Lymphocytes % (A) 16 %; MCH 33.9 pg (25.0-35.0); MCHC 32.7 g/dL (31.0-37.0); MCV 103.7 fL (80.0-100.0); Macrocytosis Moderate; Mean Platelet Volume 10.4; Monocytes # (A) 0.4 k/uL (0-1.0); Monocytes % (A) 3 %; Neutrophils # (A) 9.3 k/uL (1.3-7.7); Neutrophils % (A) 79 %; Platelet Count 103 k/uL (150-450); RBC 3.35 m/uL (4.30-5.90); RDW 18.3 % (11.5-15.5); WBC 11.7 k/uL (3.8-10.6)
--- NOTE | 2023-11-01 19:10 | FL ---
Exam Date: 11/01/2023 1:52 PM. Modified barium swallow for dysphagia. Consistencies administered: Various consistency of barium. Fluoro time: 2 minutes 8 seconds No images were sent to PACS. Please see speech pathology report. DAP: 145.09 mGym2
--- NOTE | 2023-11-01 20:09 | OP ---
OPERATIVE REPORT DATE OF SERVICE : PREOPERATIVE DIAGNOSIS: Acute chronic failure. POSTOPERATIVE DIAGNOSIS: Acute chronic failure. PROCEDURES PERFORMED: 1. Ultrasound-guided 28 cm dialysis catheter placed, left jugular approach. 2. Removal of the left femoral dialysis catheter. DESCRIPTION OF PROCEDURE: This patient brought to the asset availability leader. Left side of the neck was prepped and draped in sterile manner. Patient has a triple-lumen catheter on the right IJ. 1% lidocaine infiltrated IV sedation. Ultrasound-guided micropuncture introduced. Left jugular vein micropuncture guidewire was passed and 4-Italian dilator on top of the guidewire. Then we passed a guidewire which was parked in the inferior vena cava. Then tunnel was created. Through the tunnel, we brought dilated and then we brought the sheath was placed on the top of the guidewire the guidewire. Through the sheath, we introduced the dialysis catheter. Tip catheter in superior venoatrial junction, flushed with heparin saline and hep-locked, secured with 3-0 nylon and the left groin was prepped, left femoral catheter removed, pressure was held. The patient tolerated the procedure well. MMODL / IJN: [id number] /
[2023-11-01 21:17] LABS: Glucose,Whole Blood 228 mg/dL (70-110)
[2023-11-01] MEDS: INSULIN DETEMIR (LEVEMIR) 100 UNIT/ML SYR SQ SCH (21:27)
[2023-11-02 05:01] LABS: Anisocytosis Slight; Basophils % (A) 0 %; Eosinophils % (A) 0 %; HCT 28.1 % (39.0-53.0); Hypochromasia Slight; Lymphocytes # (A) 0.9 k/uL (1.0-4.8); Lymphocytes % (A) 13 %; MCH 34.4 pg (25.0-35.0); MCHC 32.5 g/dL (31.0-37.0); MCV 106.1 fL (80.0-100.0); Macrocytosis Marked; Mean Platelet Volume 9.9; Monocytes # (A) 0.3 k/uL (0-1.0); Monocytes % (A) 4 %; Neutrophils # (A) 5.6 k/uL (1.3-7.7); Neutrophils % (A) 81 %; RBC 2.65 m/uL (4.30-5.90); RDW 18.5 % (11.5-15.5); WBC 6.9 k/uL (3.8-10.6)
[2023-11-02 05:15] LABS: African American GFR (CKD) 38 (>60 ml/min/1.73 sqM); Anion Gap 4 mmol/L; Blood Urea Nitrogen 35 mg/dL (9-20); Calcium 7.5 mg/dL (8.4-10.2); Carbon Dioxide 27 mmol/L (22-30); Chloride 104 mmol/L (98-107); Glucose 260 mg/dL (74-99); Non-African American GFR(CKD) 33 (>60 ml/min/1.73 sqM); Potassium 3.9 mmol/L (3.5-5.1); Sodium 135 mmol/L (137-145)
[2023-11-02 05:20] LABS: HGB 9.1 gm/dL (13.0-17.5)
[2023-11-02 05:48] LABS: Platelet Count 66 k/uL (150-450)
[2023-11-02 06:15] LABS: Glucose,Whole Blood 258 mg/dL (70-110)
--- NOTE | 2023-11-02 07:55 | P.PN ---
Subjective Progress Note Date: 11/02/23 Patient is a 63-year-old male with known liver disease requiring weekly paracentesis, recently diagnosed hepatorenal syndrome, adrenal insufficiency, diabetes, COPD, and coronary artery disease who presented to the ER via EMS after being found unresponsive at home. In the ER he underwent extensive evaluation. On arrival he was hypothermic and hypoglycemic with a blood sugar of 47 despite treatment by EMS. Initial labs in the ER included CBC, coags, CMP, TSH, troponin, BNP, and ABG which were remarkable for hemoglobin 10, platelet count 79, pH 7.2, bicarb 18, sodium 132, potassium 5.3, BUN 87, creatinine 3.54 up from 2.15 most recently, magnesium 2.5, BNP 6340, and TSH of 5.680. Initial chest x-ray as reviewed by myself shows significant right-sided pleural effusion with increased pulmonary vascular congestion. In the ER he was started on D5 half normal due to his persistent hypoglycemia, these were warmed fluids to help with his hypothermia. Patient became more and more dyspneic. He ultimately required vasopressors due to prolonged hypotension, and intubation due to worsening respiratory distress from IV fluids. He was started on propofol and norepinephrine. Critical care was consulted. Arrangements were made for admission to the ICU. He was transitioned to D10 with sodium bicarb. He was seen by nephrology and required emergent HD for hyperkalemia and acidosis. He was able to come off of vasopressors and his Solu-Cortef was weaned. He was able to come off of the bicarb drip. His hemodialysis catheter stopped functioning on 10/24 and a guidewire exchange was performed by vascular surgery. He had an ultrasound- guided paracentesis completed on 10/24/2023 with removal of 6.2 L of fluid. He was extubated on 10/26. He failed a swallow study and Dobbhoff tube was placed for enteral feedings. He continued to have minimal urine output. Cultures did come back positive for Pseudomonas pneumonia and antibiotics were streamlined to IV Zosyn. Patient had permacath placed on Patient seen and examined at bedside. Having pain in his shoulder. Denies any nausea or vomiting. Denies any shortness of breath. Feeling fatigued. Vital signs reviewed General: Nontoxic, no distress, appears at stated age Cardiovascular: S1S2 reg, no murmur Lungs: Coarse breath sounds bilateral, no rhonchi, no rales, no accessory muscle use Abdominal: Soft, nontender to palpation, no guarding Ext: No gross muscle atrophy, no edema b/l lower extremities, no contractures Neuro: CN II-XI grossly intact, no focal neuro deficits Psych: Alert, oriented, appropriate affect Assessment/Plan: Decompensated cirrhosis Pseudomonas Pneumonia Shock, possibly septic Pancytopenia in the setting of acute illness and liver disease -Zosyn 3.375 g IV piggyback every 8 hours, day #08/06 -Follow CBC, no indication for transfusion at this time -Continue to hold hold home aldactone and lisinopril due to hypotension -Continue to hold remeron and xanax as patient is currently on vert -Pulmonary note reviewed: Dobbhoff removed as patient is taking in orals. Insertion of permacath successful. Continue IV Zosyn. Acute kidney injury, due to ATN Chronic kidney disease stage III Hyperphosphatemia, secondary to SAHARA -Nephrology note reviewed: Hold hemodialysis in AM. - S/P emergent HD 10/21, HD 10/22 and 10/24/23 - Melvin for strict I's and O's - Midodrine 10 mg 3 times daily, octreotide 50 mcg subcutaneous 3 times daily Insulin dependent diabetes Prolonged hypoglycemia in an insulin-dependent diabetic, resolved - levemir 25 untis at night - SSI q 6 hours - follow BS Adrenal insufficiency now with shock -Patient is on hydrocortisone at home - Solu-Cortef to 50 mg IV every 8 hours as vasopressor Chronic: Coronary artery disease COPD without exacerbation Anemia of chronic disease Alcoholic cirrhosis Acute hypoxic respiratory failure , resolved Acute metabolic encephalopathy, resolved Hyerpvolemia hyponatremia, resolved Hyperkalemia, resolved Meatbolic acidosis, resolved Imaging: Swallow study: Mild to moderate pharyngeal dysphagia Data Review: Labs reviewed from today include CBC and basic metabolic profile which are remarkable for hemoglobin 9.1, platelets 66, sodium 135, BUN 35, creatinine 2.13 DVT prophylaxis: SCDs Anticipated discharge date: Pending Clinical Course Anticipated discharge place: Pending Clinical Course This dictation was prepared using [employer] voice recognition software. Though every attempt is made to correct errors during dictation some may still exist. Objective - Vital Signs Vital signs: Vital Signs Temp 98.4 F 11/02/23 04:00 Pulse 54 L 11/02/23 07:00 Resp 16 11/02/23 07:00 BP 110/61 11/02/23 07:00 Pulse Ox 100 11/02/23 07:00 FiO2 50 10/26/23 16:00 Intake & Output 11/01/23 11/02/23 11/02/23 18:59 06:59 18:59 Intake Total 939.831 838.885 142.570 Output Total 1045 105 5 Balance -105.169 733.885 137.570 Weight 95.6 kg 96 kg Intake: IV 210 120 10 .9NS KVO 110 120 10 Piperacillin-Tazobactam 3 100 .375 gm In Sodium Chloride 0.9% 100 ml @ 25 mls/hr IVPB Q8H [facility] Rx#: [id number] Intake, IV Titration 159.831 38.885 132.570 Amount Norepinephrine 4 mg In 59.831 38.885 132.570 Sodium Chloride 0.9% 250 ml @ 0.03 MCG/KG/MIN 9. 332 mls/hr IV .Q24H [facility] Rx#:[id number] Potassium Chloride 20 meq 100 In Water For Injection 1 100ml.bag @ 50 mls/hr IVPB ONCE STA Rx#: [id number] Oral 680 Hemodialysis 500 Other 70 Output: Urine 45 105 5 Hemodialysis 1000 Other: Voiding Method Indwelling Catheter Indwelling Catheter # Bowel Movements 1 ABP, PAP, CO, CI - Last Documented Arterial Blood Pressure 101/67 - Labs CBC & Chem 7: 11/02/23 04:33 11/02/23 04:33 Labs: Abnormal Lab Results - Last 24 Hours (Table) 11/01/23 11/01/23 11/01/23 Range/Units 11:57 16:32 17:00 WBC 11.8 H 11.7 H (3.8-10.6) k/uL RBC 3.29 L 3.35 L (4.30-5.90) m/uL Hgb 11.0 L 11.3 L (13.0-17.5) gm/dL Hct 34.2 L 34.7 L (39.0-53.0) % MCV 103.7 H 103.7 H (80.0-100.0) fL RDW 18.1 H 18.3 H (11.5-15.5) % Plt Count 102 L D 103 L (150-450) k/uL Neutrophils # 9.3 H (1.3-7.7) k/uL Lymphocytes # (1.0-4.8) k/uL Macrocytosis Sodium (137-145) mmol/L BUN (9-20) mg/dL Creatinine (0.66-1.25) mg/dL Glucose (74-99) mg/dL POC Glucose (mg/dL) 181 H (70-110) mg/dL Calcium (8.4-10.2) mg/dL 11/01/23 11/01/23 11/02/23 Range/Units 17:02 21:16 04:33 WBC (3.8-10.6) k/uL RBC 2.65 L (4.30-5.90) m/uL Hgb 9.1 L D (13.0-17.5) gm/dL Hct 28.1 L (39.0-53.0) % MCV 106.1 H (80.0-100.0) fL RDW 18.5 H (11.5-15.5) % Plt Count 66 L (150-450) k/uL Neutrophils # (1.3-7.7) k/uL Lymphocytes # 0.9 L (1.0-4.8) k/uL Macrocytosis Marked A Sodium (137-145) mmol/L BUN (9-20) mg/dL Creatinine (0.66-1.25) mg/dL Glucose (74-99) mg/dL POC Glucose (mg/dL) 142 H 228 H (70-110) mg/dL Calcium (8.4-10.2) mg/dL 11/02/23 11/02/23 Range/Units 04:33 06:13 WBC (3.8-10.6) k/uL RBC (4.30-5.90) m/uL Hgb (13.0-17.5) gm/dL Hct (39.0-53.0) % MCV (80.0-100.0) fL RDW (11.5-15.5) % Plt Count (150-450) k/uL Neutrophils # (1.3-7.7) k/uL Lymphocytes # (1.0-4.8) k/uL Macrocytosis Sodium 135 L (137-145) mmol/L BUN 35 H (9-20) mg/dL Creatinine 2.13 H (0.66-1.25) mg/dL Glucose 260 H (74-99) mg/dL POC Glucose (mg/dL) 258 H (70-110) mg/dL Calcium 7.5 L (8.4-10.2) mg/dL
--- NOTE | 2023-11-02 10:44 | P.PN ---
Subjective Progress Note Date: 11/02/23 10/28/2023, the patient is being seen for a follow-up. 63-year-old male patient with acute respiratory failure related to an underlying aspiration pneumonia with known history of alcoholic liver disease/cirrhosis and liver failure. The patient was extubated on 10/26/2023. Patient is known to have COPD and he grew also Pseudomonas aeruginosa in the sputum. The patient also has chronic liver, chronic kidney disease with an acute kidney injury attributed to ATN knowing that the patient's baseline creatinine 10/01/2023 was 1.02. He was started on hemodialysis on 10/21/2023 due to volume overload and hyperkalemia as the patient was having oliguria. The patient has no significant hydronephrosis., coronary disease, diabetes mellitus, hypothyroidism and history of chronic alcoholism. The patient is currently on 4 weeks of oxygen by nasal cannula. The most recent chest x-ray from 10/27/2023 showed improvement in the left-sided pleural effusion, small lung volumes and bibasilar opacities probably due to atelectasis. Noted the patient also has Pseudomonas in the sputum and the patient is currently on IV Zosyn. Patient remains on pressors and norepinephrine is running at 0.02 mcg/kg/min. Adrenal insufficiency was also suspected and the patient was placed on stress dose hydrocortisone 50 mg every 8 hours. The patient is also on Lasix 80 mg IV daily and Sandostatin 50 mcg every 8 hours subcu and midodrine 10 mg p.o. 3 times daily. Transfer diabetes mellitus, the patient remains on Levemir insulin 15 units in addition to sliding scale coverage. Patient received lactulose 30 g twice a day. The ultrasound-guided paracentesis was done on 10/25/2023 and the patient had a total of 6.2 L of ascitic fluid removed. Most recent echocardiogram was done on 07/05/2024 indicating preserved LV function with moderate degree of mitral regurgitation. The blood cultures during this current admission has been negative. I suspect fluid cultures were also negative. Note that the cell count of the sleep note was low at 7 and there is no clinical indication of SBP. Patient continues to have a soft blood pressure. He was taken off the norepinephrine and earlier this morning, the nursing staff had to put her back for blood pressure drop as his systolic blood pressure dropped and the map was at 56. Currently is on norepinephrine at 0.01 mcg/kg/m he is on 4 L of oxygen by nasal cannula. Swallow evaluation is being repeated to evaluate his swallow and give him his oral medication if possible. Awake and alert and communicating. His white cycles of 4.7 with a hemoglobin of 9.4 and a platelet count of 78. BUN is 43 with a creatinine of 2.64 and a sodium level is at 136 and a potassium level is at 4.4. Urine output is in the order of 2 80 mL over the past 24 hours. Obviously oliguric and the findings on the case and the patient is going to undergo hemodialysis session today. He had the patient's chest x-ray from today shows some atelectatic change in lung bases. No other significant abnormalities noted. His last paracentesis was done on 10/25/2023 and a total of 6.2 L of ascitic fluid was removed. On today's evaluation of 10/29/2023, I am seeing the patient for a follow-up. The patient is awake and alert. He was unable to pass a swallow evaluation and based on that the patient was given a Dobbhoff catheter for enteral feeding and nutritional support. He is currently receiving Nepro at a rate of 20 cc an hour and he is able to tolerate enteral feeding and needed to have a bowel movement. Note that the patient is also on lactulose regarding his liver cirrhosis. He is on oxygen at 4 L/min nasal cannula. He underwent hemodialysis yesterday with a total of 3.5 L of ultrafiltration. IV fluids are currently at KVO as the patient continues to have signs of fluid overload. He is on low-dose norepinephrine which is only at 0.04 mcg/kg/min.Meanwhile, his abdomen is felt to be slightly distended and ultrasound of the abdomen to be done today to assess for any ascites. His last paracentesis was done on 10/24/2023 with a total of 6.2 L of fluid being aspirated from his abdominal fluid. The patient's chest x-ray shows small lung volumes and atelectatic changes in the lung bases bilaterally. The patient is a large clip in the right humeral head. The Dobbho ff catheter is in a good location. Meanwhile, the white cell count at 6.1, hemoglobin is at 9.6 and a platelet count of 92. BUN is 46 with a creatinine of 2.8 and his sodium level is at 133 with a potassium level of 4.2. Blood sugar from this morning was at 168. He is communicating. He is profoundly weak still. He seems to be appropriate. He is aware that he is in the hospital. He is aware of his name and his date of . On today's evaluation of 10/30/2023, the patient is being seen for a follow-up. The patient is calm and comfortable. He remains profoundly weak. He is on room air oxygen. He has a Dobbhoff catheter in place and the patient is on enteral feeding for nutrition support and the patient is receiving Nepro. He underwent a dialysis without the filtration yesterday with a total of 3 L removed. He remains on low-dose norepinephrine at 0.02 mcg/kg/min. Another hemodialysis session is to be done today. Urine output is minimal. No other significant events overnight. No reported aspiration. No signs of any respiratory distress. The patient remains on IV Zosyn. The patient remains on Levemir insulin 15 units and sliding scale coverage. The patient remains on octreotide. The patient remains on stress dose hydrocortisone.As for the labs, the WBC count is at 3 with a mean of 8.9 and platelet count of 60. BUN is 48 with a creatinine of 2.8 and a sodium level is at 135. Ultrasound of the abdomen showed a moderate degree of abdominal ascites. He is stooling. No signs of any significant encephalopathy. As mentioned, remains profoundly weak On today's evaluation of 10/31/2023, the patient is being seen for a follow-up. The patient has no specific complaints. This morning, the patient is on room air oxygen. Dobbhoff catheter still in place and the patient receiving enteral feeding for nutrition support and the patient is currently on Nepro at 30 to 55 cc an hour and the patient had a bowel movement. The patient is currently on minimal dose of norepinephrine which is running at 0.02 mcg/kg/min. There is abdominal ascites and distention. His last hemodialysis session was done yesterday. Urine output is minimal at this point in time. He remains on IV Zosyn. No other significant issues otherwise. The patient is communicating at this point in time. The risk was 4.4 with a hemoglobin 9.5 and a platelet count of 69. BUN is 45 creatinine of 2.6 and a sodium level is at 135. No other significant events since yesterday and the patient's overall condition remains stable. Blood sugar from today is at 186. On today's evaluation of 11/01/2023, I am seeing the patient for a follow-up. The patient is awake and alert and communicating. No signs of any encephalopathy. The patient is going to undergo a barium swallow today and the patient will also have a permacath inserted for long-term dialysis. Based on that, his enteral feeding has been discontinued and the patient continues to have a Dobbhoff in place. He is currently on 2 L of oxygen by nasal cannula. His last hemodialysis session was done yesterday and the patient remains on norepinephrine 0.01 mcg/kg/min. BUN is a 43 with a creatinine of 2.2 and a sodium noted at 135 with a potassium level of 3.4. Serum bicarb is a 21. There is close of 3.5 with a hemoglobin of 9.7 and a platelet count of 42. The patient is currently on 2 L of O2 nasal cannula. Rest of the medication remains unchanged and the patient remains on IV Zosyn.The chest x-ray from today shows no evidence of any significant airspace disease. Atelectatic changes in the lung bases and the Dobbhoff is in a good location. On today's evaluation of 11/02/2023, the patient is being seen for a follow-up. The patient is doing well and the patient is awake. The permacath was inserted in his left IJ. The patient was also given a swallow evaluation in the Dobbhoff was removed as the patient was able to pass the swallow evaluation. The patient is currently taking oral food. He remains on low-dose norepinephrine at 0.02 mcg/kg/min. The patient underwent hemodialysis yesterday. Total amount of ultrafiltration was in the order of 500 cc. Continues to have some ascites and some increased lower extremity edema. The white cell count at 6.9 with a hemoglobin of 9.1. Platelet count is at 66. BUN is at 35 with a creatinine of 2.1 and a sodium levels of 135. The patient was found to have Pseudomonas in the sputum. The patient remains on IV Zosyn. This was started initially on and the patient is going to complete a 7-day course. The chest x-ray close post line insertion showed no acute abnormalities. No evidence of any pneumothorax the catheter is a good location. Some limited atelectatic changes were seen at lung bases bilaterally. Otherwise, the patient is awake and alert and communicating. No other significant events over the past 24 hours. Objective - Vital Signs Vital signs: Vital Signs Temp 98.4 F 11/02/23 04:00 Pulse 54 L 11/02/23 07:00 Resp 16 11/02/23 07:00 BP 110/61 11/02/23 07:00 Pulse Ox 100 11/02/23 07:00 FiO2 50 10/26/23 16:00 Intake & Output 11/01/23 11/02/23 11/02/23 18:59 06:59 18:59 Intake Total 939.831 838.885 10 Output Total 1045 105 5 Balance -105.169 733.885 5 Weight 95.6 kg 96 kg Intake: IV 210 120 10 .9NS KVO 110 120 10 Piperacillin-Tazobactam 3 100 .375 gm In Sodium Chloride 0.9% 100 ml @ 25 mls/hr IVPB Q8H [facility] Rx#: [id number] Intake, IV Titration 159.831 38.885 Amount Norepinephrine 4 mg In 59.831 38.885 Sodium Chloride 0.9% 250 ml @ 0.03 MCG/KG/MIN 9. 332 mls/hr IV .Q24H [facility] Rx#:[id number] Potassium Chloride 20 meq 100 In Water For Injection 1 100ml.bag @ 50 mls/hr IVPB ONCE STA Rx#: [id number] Oral 680 Hemodialysis 500 Other 70 Output: Urine 45 105 5 Hemodialysis 1000 Other: Voiding Method Indwelling Catheter Indwelling Catheter # Bowel Movements 1 ABP, PAP, CO, CI - Last Documented Arterial Blood Pressure 101/67 - Exam Examination General appearance the patient is calm comfortable no acute distress body mass index is 28.9 on room air oxygen Head exam was generally normal. There was no scleral icterus or corneal arcus. Mucous membranes were moist. Neck was supple and without jugular venous distension, thyromegaly, or carotid bruits. Carotids were easily palpable bilaterally. There was no adenopathy. The patient has left IJ permacath in place Lungs were clear to auscultation and percussion, and with normal diaphragmatic excursion. No wheezes or rales were noted. Cardiac exam revealed the PMI to be normally situated and sized. The rhythm was regular and no extrasystoles were noted during several minutes of auscultation. The first and second heart sounds were normal and physiologic splitting of the second heart sound was noted. There were no murmurs, rubs, clicks, or gallops. Abdomen is distended and the patient has ascites. There is fluid wave and shifting dullness. No direct tenderness or rebound tenderness or guarding Extremities reveal +1-2 pitting edema and there is no cyanosis or clubbing neurologically, the patient is awake and alert and the patient does not have any focal neurological deficit. Cranial nerves are essentially intact. Examination of the skin revealed no evidence of significant rashes, suspicious appearing nevi or other concerning lesions. - Labs CBC & Chem 7: 11/02/23 04:33 11/02/23 04:33 Labs: Abnormal Lab Results - Last 24 Hours (Table) 11/01/23 11/01/23 11/01/23 Range/Units 11:57 16:32 17:00 WBC 11.8 H 11.7 H (3.8-10.6) k/uL RBC 3.29 L 3.35 L (4.30-5.90) m/uL Hgb 11.0 L 11.3 L (13.0-17.5) gm/dL Hct 34.2 L 34.7 L (39.0-53.0) % MCV 103.7 H 103.7 H (80.0-100.0) fL RDW 18.1 H 18.3 H (11.5-15.5) % Plt Count 102 L D 103 L (150-450) k/uL Neutrophils # 9.3 H (1.3-7.7) k/uL Lymphocytes # (1.0-4.8) k/uL Macrocytosis Sodium (137-145) mmol/L BUN (9-20) mg/dL Creatinine (0.66-1.25) mg/dL Glucose (74-99) mg/dL POC Glucose (mg/dL) 181 H (70-110) mg/dL Calcium (8.4-10.2) mg/dL 11/01/23 11/01/23 11/02/23 Range/Units 17:02 21:16 04:33 WBC (3.8-10.6) k/uL RBC 2.65 L (4.30-5.90) m/uL Hgb 9.1 L D (13.0-17.5) gm/dL Hct 28.1 L (39.0-53.0) % MCV 106.1 H (80.0-100.0) fL RDW 18.5 H (11.5-15.5) % Plt Count 66 L (150-450) k/uL Neutrophils # (1.3-7.7) k/uL Lymphocytes # 0.9 L (1.0-4.8) k/uL Macrocytosis Marked A Sodium (137-145) mmol/L BUN (9-20) mg/dL Creatinine (0.66-1.25) mg/dL Glucose (74-99) mg/dL POC Glucose (mg/dL) 142 H 228 H (70-110) mg/dL Calcium (8.4-10.2) mg/dL 11/02/23 11/02/23 Range/Units 04:33 06:13 WBC (3.8-10.6) k/uL RBC (4.30-5.90) m/uL Hgb (13.0-17.5) gm/dL Hct (39.0-53.0) % MCV (80.0-100.0) fL RDW (11.5-15.5) % Plt Count (150-450) k/uL Neutrophils # (1.3-7.7) k/uL Lymphocytes # (1.0-4.8) k/uL Macrocytosis Sodium 135 L (137-145) mmol/L BUN 35 H (9-20) mg/dL Creatinine 2.13 H (0.66-1.25) mg/dL Glucose 260 H (74-99) mg/dL POC Glucose (mg/dL) 258 H (70-110) mg/dL Calcium 7.5 L (8.4-10.2) mg/dL Assessment and Plan Plan: Acute respiratory failure, secondary to possible aspiration pneumonia, and alcoholic liver disease with alcoholic cirrhosis. Extubation was done on 10/26/2023. The patient is currently on room air oxygen. No signs of any respir atory distress. The patient is currently on 2 L of oxygen nasal cannula. Chest x-ray from 11/01/2023 shows some atelectatic changes in the lung bases. No other significant abnormalities. Hypotension, multifactorial. This is partly related to septic shock and there may be also a component of adrenal insufficiency the patient remains on high- dose hydrocortisone and the patient is currently on pressors in addition to midodrine the patient remains on low-dose norepinephrine which is running at 0.0 2 mcg/kg/min. Pseudomonas aeruginosa tracheobronchitis/bronchopneumonia. The patient is currently covered with IV Zosyn, completing a 7-day course, this was started on 10/30/2023 Liver cirrhosis with stigmata of chronic liver failure Ascites with a large-volume paracentesis that was done on 10/25/2023 with a total of 6.2 L of ascitic fluid removal. No evidence of SBP and the cultures are negative, repeat ultrasound of the abdomen. Repeat ultrasound abdomen shows moderate degree of ascites. Abdomen is slightly distended. History of alcoholism Acute kidney injury secondary to ATN due to septic shock. Patient is according hemodialysis due to volume overload. There is improvement with ultrafiltration. The patient is undergoing periodic dialysis. Last hemodialysis session was yesterday COPD Diabetes mellitus type 2 Coronary artery disease and based on echocardiogram that was done in June 2023, the patient has a preserved LV function with moderate degree of mitral regurgitation Hypothyroidism Non-anion gap metabolic acidosis secondary to renal failure, recovered Anemia of chronic disease Chronic thrombocytopenia Plan Insertion of a permacath was done successfully 5 catheter was removed and the patient is taking oral food/intake Currently on room air oxygen and overall respiratory status is stable Will attempt to wean off the pressors and discontinue Continue IV Zosyn, and discontinued antibiotic after completing a 7-day course Continue stress dose hydrocortisone Dialysis per nephrology Discontinue the norepinephrine Continue lactulose 30 g twice a day No need for paracentesis abdominal exam is soft We'll continue to follow. He is a full code
[2023-11-02 11:20] LABS: Glucose,Whole Blood 149 mg/dL (70-110)
--- NOTE | 2023-11-02 12:35 | P.PN ---
Subjective Patient is seen for follow-up for acute kidney injury. He is maintained on hemodialysis. Started hemodialysis on 10/21/2023 for volume overload and worsening renal function. Remains with significant edema. Dobbhoff catheter in place. Scheduled for IJ permacath placement today. Objective - Vital Signs Vital signs: Vital Signs Temp 97.7 F 11/02/23 08:00 Pulse 66 11/02/23 11:30 Resp 16 11/02/23 11:00 BP 110/73 11/02/23 11:30 Pulse Ox 98 11/02/23 11:30 FiO2 50 10/26/23 16:00 Intake & Output 11/01/23 11/02/23 11/02/23 18:59 06:59 18:59 Intake Total 939.831 838.885 831.292 Output Total 1045 105 90 Balance -105.169 733.885 741.292 Weight 95.6 kg 96 kg Intake: IV 210 120 170 Normal Saline @ KVO 110 120 70 Piperacillin-Tazobactam 3 100 100 .375 gm In Sodium Chloride 0.9% 100 ml @ 25 mls/hr IVPB Q8H [facility] Rx#: [id number] Intake, IV Titration 159.831 38.885 161.292 Amount Norepinephrine 4 mg In 59.831 38.885 161.292 Sodium Chloride 0.9% 250 ml @ 0.03 MCG/KG/MIN 9. 332 mls/hr IV .Q24H [facility] Rx#:[id number] Potassium Chloride 20 meq 100 In Water For Injection 1 100ml.bag @ 50 mls/hr IVPB ONCE [facility] Rx#: [id number] Oral 680 500 Hemodialysis 500 Other 70 Output: Urine 45 105 90 Hemodialysis 1000 Other: Voiding Method Indwelling Catheter Indwelling Catheter # Bowel Movements 1 ABP, PAP, CO, CI - Last Documented Arterial Blood Pressure 101/67 - Exam Patient is awake, no acute distress Examination of the heart S1 and S2 Examination of the lungs shows bilateral breath sounds are heard and decreased breath sounds at the bases Abdomen is soft distended with abdominal wall edema Examination of lower extremities shows edema 2-3+ bilaterally CIRCULAR KNITTER HELPER exam shows patient is moving all 4 extremities. - Labs CBC & Chem 7: 11/02/23 04:33 11/02/23 04:33 Labs: Abnormal Lab Results - Last 24 Hours (Table) 11/01/23 11/01/23 11/01/23 Range/Units 16:32 17:00 17:02 WBC 11.8 H 11.7 H (3.8-10.6) k/uL RBC 3.29 L 3.35 L (4.30-5.90) m/uL Hgb 11.0 L 11.3 L (13.0-17.5) gm/dL Hct 34.2 L 34.7 L (39.0-53.0) % MCV 103.7 H 103.7 H (80.0-100.0) fL RDW 18.1 H 18.3 H (11.5-15.5) % Plt Count 102 L D 103 L (150-450) k/uL Neutrophils # 9.3 H (1.3-7.7) k/uL Lymphocytes # (1.0-4.8) k/uL Macrocytosis Sodium (137-145) mmol/L BUN (9-20) mg/dL Creatinine (0.66-1.25) mg/dL Glucose (74-99) mg/dL POC Glucose (mg/dL) 142 H (70-110) mg/dL Calcium (8.4-10.2) mg/dL 11/01/23 11/02/23 11/02/23 Range/Units 21:16 04:33 04:33 WBC (3.8-10.6) k/uL RBC 2.65 L (4.30-5.90) m/uL Hgb 9.1 L D (13.0-17.5) gm/dL Hct 28.1 L (39.0-53.0) % MCV 106.1 H (80.0-100.0) fL RDW 18.5 H (11.5-15.5) % Plt Count 66 L (150-450) k/uL Neutrophils # (1.3-7.7) k/uL Lymphocytes # 0.9 L (1.0-4.8) k/uL Macrocytosis Marked A Sodium 135 L (137-145) mmol/L BUN 35 H (9-20) mg/dL Creatinine 2.13 H (0.66-1.25) mg/dL Glucose 260 H (74-99) mg/dL POC Glucose (mg/dL) 228 H (70-110) mg/dL Calcium 7.5 L (8.4-10.2) mg/dL 11/02/23 11/02/23 Range/Units 06:13 11:19 WBC (3.8-10.6) k/uL RBC (4.30-5.90) m/uL Hgb (13.0-17.5) gm/dL Hct (39.0-53.0) % MCV (80.0-100.0) fL RDW (11.5-15.5) % Plt Count (150-450) k/uL Neutrophils # (1.3-7.7) k/uL Lymphocytes # (1.0-4.8) k/uL Macrocytosis Sodium (137-145) mmol/L BUN (9-20) mg/dL Creatinine (0.66-1.25) mg/dL Glucose (74-99) mg/dL POC Glucose (mg/dL) 258 H 149 H (70-110) mg/dL Calcium (8.4-10.2) mg/dL Assessment and Plan Assessment: 1. Acute kidney injury secondary to ATN secondary to septic shock. Creatinine 3.54 on admission. Creatinine as low as 1.02 dated 10/01/23. Started on hemodialysis October 21, 2023 due to volume overload and hyperkalemia. Oliguric. No hydronephrosis noted on ultrasound. 2. Septic shock. Possibly SBP. On IV antibiotics. On Levophed. 3. Metabolic acidosis secondary to acute kidney injury. Improved postdialysis. 4. Hypervolemic hyponatremia. Improved. 5. Volume overload. Improving with ultrafiltration. 6. Alcohol induced liver cirrhosis. Patient noted to be pancytopenic. GI following. 7. Acute hypoxic respiratory failure. Intubated. 8. Diabetes mellitus. 9. Chronic diastolic CHF with moderate mitral regurgitation. 10. History of adrenal insufficiency. Currently on IV Solu-Cortef. 11. Hyperphosphatemia secondary to acute kidney injury. On PhosLo. Plan: Hemodialysis today and repeat in a.m. Continue with midodrine. Increase dose to 4 times a day continue to try to wean off levo fed
--- NOTE | 2023-11-02 12:37 | P.PN ---
Subjective Patient is seen for follow-up for acute kidney injury. He is maintained on hemodialysis. Started hemodialysis on 10/21/2023 for volume overload and worsening renal function. Remains with significant edema. Seen on hemodialysis. Total UF goal at 1.5 L. Patient was off of levo fed and it was restarted during dialysis. Objective - Vital Signs Vital signs: Vital Signs Temp 97.7 F 11/02/23 08:00 Pulse 66 11/02/23 11:30 Resp 16 11/02/23 11:00 BP 110/73 11/02/23 11:30 Pulse Ox 98 11/02/23 11:30 FiO2 50 10/26/23 16:00 Intake & Output 11/01/23 11/02/23 11/02/23 18:59 06:59 18:59 Intake Total 939.831 838.885 831.292 Output Total 1045 105 90 Balance -105.169 733.885 741.292 Weight 95.6 kg 96 kg Intake: IV 210 120 170 Normal Saline @ KVO 110 120 70 Piperacillin-Tazobactam 3 100 100 .375 gm In Sodium Chloride 0.9% 100 ml @ 25 mls/hr IVPB Q8H [facility] Rx#: [id number] Intake, IV Titration 159.831 38.885 161.292 Amount Norepinephrine 4 mg In 59.831 38.885 161.292 Sodium Chloride 0.9% 250 ml @ 0.03 MCG/KG/MIN 9. 332 mls/hr IV .Q24H [facility] Rx#:[id number] Potassium Chloride 20 meq 100 In Water For Injection 1 100ml.bag @ 50 mls/hr IVPB ONCE [facility] Rx#: [id number] Oral 680 500 Hemodialysis 500 Other 70 Output: Urine 45 105 90 Hemodialysis 1000 Other: Voiding Method Indwelling Catheter Indwelling Catheter # Bowel Movements 1 ABP, PAP, CO, CI - Last Documented Arterial Blood Pressure 101/67 - Exam Patient is awake, no acute distress Examination of the heart S1 and S2 Examination of the lungs shows bilateral breath sounds are heard and decreased breath sounds at the bases Abdomen is soft distended with abdominal wall edema Examination of lower extremities shows edema 2-3+ bilaterally ACCOUNT LIAISON exam shows patient is moving all 4 extremities. - Labs CBC & Chem 7: 11/02/23 04:33 11/02/23 04:33 Labs: Abnormal Lab Results - Last 24 Hours (Table) 11/01/23 11/01/23 11/01/23 Range/Units 16:32 17:00 17:02 WBC 11.8 H 11.7 H (3.8-10.6) k/uL RBC 3.29 L 3.35 L (4.30-5.90) m/uL Hgb 11.0 L 11.3 L (13.0-17.5) gm/dL Hct 34.2 L 34.7 L (39.0-53.0) % MCV 103.7 H 103.7 H (80.0-100.0) fL RDW 18.1 H 18.3 H (11.5-15.5) % Plt Count 102 L D 103 L (150-450) k/uL Neutrophils # 9.3 H (1.3-7.7) k/uL Lymphocytes # (1.0-4.8) k/uL Macrocytosis Sodium (137-145) mmol/L BUN (9-20) mg/dL Creatinine (0.66-1.25) mg/dL Glucose (74-99) mg/dL POC Glucose (mg/dL) 142 H (70-110) mg/dL Calcium (8.4-10.2) mg/dL 11/01/23 11/02/23 11/02/23 Range/Units 21:16 04:33 04:33 WBC (3.8-10.6) k/uL RBC 2.65 L (4.30-5.90) m/uL Hgb 9.1 L D (13.0-17.5) gm/dL Hct 28.1 L (39.0-53.0) % MCV 106.1 H (80.0-100.0) fL RDW 18.5 H (11.5-15.5) % Plt Count 66 L (150-450) k/uL Neutrophils # (1.3-7.7) k/uL Lymphocytes # 0.9 L (1.0-4.8) k/uL Macrocytosis Marked A Sodium 135 L (137-145) mmol/L BUN 35 H (9-20) mg/dL Creatinine 2.13 H (0.66-1.25) mg/dL Glucose 260 H (74-99) mg/dL POC Glucose (mg/dL) 228 H (70-110) mg/dL Calcium 7.5 L (8.4-10.2) mg/dL 11/02/23 11/02/23 Range/Units 06:13 11:19 WBC (3.8-10.6) k/uL RBC (4.30-5.90) m/uL Hgb (13.0-17.5) gm/dL Hct (39.0-53.0) % MCV (80.0-100.0) fL RDW (11.5-15.5) % Plt Count (150-450) k/uL Neutrophils # (1.3-7.7) k/uL Lymphocytes # (1.0-4.8) k/uL Macrocytosis Sodium (137-145) mmol/L BUN (9-20) mg/dL Creatinine (0.66-1.25) mg/dL Glucose (74-99) mg/dL POC Glucose (mg/dL) 258 H 149 H (70-110) mg/dL Calcium (8.4-10.2) mg/dL Assessment and Plan Assessment: 1. Acute kidney injury secondary to ATN secondary to septic shock. Creatinine 3.54 on admission. Creatinine as low as 1.02 dated 10/01/23. Started on hemodialysis October 21, 2023 due to volume overload and hyperkalemia. Oliguric. No hydronephrosis noted on ultrasound. 2. Septic shock. Possibly SBP. On IV antibiotics. On Levophed. 3. Metabolic acidosis secondary to acute kidney injury. Improved postdialysis. 4. Hypervolemic hyponatremia. Improved. 5. Volume overload. Improving with ultrafiltration. 6. Alcohol induced liver cirrhosis. Patient noted to be pancytopenic. GI following. 7. Acute hypoxic respiratory failure. Intubated. 8. Diabetes mellitus. 9. Chronic diastolic CHF with moderate mitral regurgitation. 10. History of adrenal insufficiency. Currently on IV Solu-Cortef. 11. Hyperphosphatemia secondary to acute kidney injury. On PhosLo. Plan: Hold hemodialysis in a.m. Wean off levo fed post dialysis. Continue with midodrine.
[2023-11-02 16:20] LABS: Glucose,Whole Blood 195 mg/dL (70-110)
[2023-11-02 20:04] LABS: Glucose,Whole Blood 243 mg/dL (70-110)
[2023-11-03 05:50] LABS: African American GFR (CKD) 45 (>60 ml/min/1.73 sqM); Anion Gap 3 mmol/L; Blood Urea Nitrogen 28 mg/dL (9-20); Calcium 7.5 mg/dL (8.4-10.2); Carbon Dioxide 26 mmol/L (22-30); Chloride 103 mmol/L (98-107); Glucose 101 mg/dL (74-99); Non-African American GFR(CKD) 39 (>60 ml/min/1.73 sqM); Potassium 3.7 mmol/L (3.5-5.1); Sodium 132 mmol/L (137-145)
[2023-11-03 06:04] LABS: Anisocytosis Slight; Basophils % (A) 0 %; Eosinophils % (A) 1 %; HCT 23.6 % (39.0-53.0); HGB 7.7 gm/dL (13.0-17.5); Hypochromasia Slight; Lymphocytes # (A) 0.6 k/uL (1.0-4.8); Lymphocytes % (A) 23 %; MCHC 32.5 g/dL (31.0-37.0); MCV 104.6 fL (80.0-100.0); Macrocytosis Marked; Monocytes # (A) 0.2 k/uL (0-1.0); Monocytes % (A) 6 %; Neutrophils # (A) 1.7 k/uL (1.3-7.7); Neutrophils % (A) 67 %; RBC 2.25 m/uL (4.30-5.90); RDW 18.4 % (11.5-15.5); WBC 2.5 k/uL (3.8-10.6)
[2023-11-03 06:06] LABS: Platelet Count 40 k/uL (150-450)
--- NOTE | 2023-11-03 06:47 | XR ---
EXAMINATION TYPE: XR chest 1V portable DATE OF EXAM: 11/03/2023 COMPARISON: 10/31/2023 HISTORY: Pneumonia TECHNIQUE: Single frontal view of the chest is obtained. FINDINGS: There has been no change in the central venous catheters entering the internal jugular vein s bilaterally. There is no pneumothorax. There is a tiny right pleural effusion. There is mild linear band of atelectasis the left lung unchanged. There is no airspace consolidation. The osseous structures are intact IMPRESSION: Mild acute cardiopulmonary disease with no interval change.
[2023-11-03] MEDS: HYDROCORTISONE 20 MG TAB PO SCH (09:21)
--- NOTE | 2023-11-03 11:01 | P.PN ---
Subjective Patient is seen for follow-up for acute kidney injury. Started hemodialysis on 10/21/2023 for volume overload and worsening renal function. Remains with significant edema. Slowly improving Status post hemodialysis yesterday with UF off 1.9 L. Currently off of levo fed. Maintained on midodrine. Urine output at 5-10 mL an hour. Objective - Vital Signs Vital signs: Vital Signs Temp 98.1 F 11/03/23 08:00 Pulse 58 L 11/03/23 09:30 Resp 18 11/03/23 09:30 BP 105/54 11/03/23 09:30 Pulse Ox 97 11/03/23 09:30 FiO2 50 10/26/23 16:00 Intake & Output 11/02/23 11/03/23 11/03/23 18:59 06:59 18:59 Intake Total 1821.237 695 330 Output Total 2020 70 10 Balance -198.763 625 320 Weight 95.8 kg Intake: IV 375 195 130 Normal Saline @ KVO 175 195 30 Piperacillin-Tazobactam 3 200 100 .375 gm In Sodium Chloride 0.9% 100 ml @ 25 mls/hr IVPB Q8H [facility] Rx#: [id number] Intake, IV Titration 186.237 Amount Norepinephrine 4 mg In 186.237 Sodium Chloride 0.9% 250 ml @ 0.03 MCG/KG/MIN 9. 332 mls/hr IV .Q24H [facility] Rx#:[id number] Oral 860 500 200 Hemodialysis 400 Output: Urine 120 70 10 Hemodialysis 1900 Other: Voiding Method Indwelling Catheter Indwelling Catheter Indwelling Catheter # Bowel Movements 1 1 ABP, PAP, CO, CI - Last Documented Arterial Blood Pressure 101/67 - Exam Patient is awake, no acute distress Examination of the heart S1 and S2 Examination of the lungs shows bilateral breath sounds are heard and decreased breath sounds at the bases Abdomen is soft distended with abdominal wall edema Examination of lower extremities shows edema 2-3+ bilaterally DEVELOPMENT TECHNOLOGIST exam shows patient is moving all 4 extremities. - Labs CBC & Chem 7: 11/03/23 05:01 11/03/23 05:01 Labs: Abnormal Lab Results - Last 24 Hours (Table) 11/02/23 11/02/23 11/02/23 Range/Units 11:19 16:19 20:03 WBC (3.8-10.6) k/uL RBC (4.30-5.90) m/uL Hgb (13.0-17.5) gm/dL Hct (39.0-53.0) % MCV (80.0-100.0) fL RDW (11.5-15.5) % Plt Count (150-450) k/uL Lymphocytes # (1.0-4.8) k/uL Macrocytosis Sodium (137-145) mmol/L BUN (9-20) mg/dL Creatinine (0.66-1.25) mg/dL Glucose (74-99) mg/dL POC Glucose (mg/dL) 149 H 195 H 243 H (70-110) mg/dL Calcium (8.4-10.2) mg/dL 11/03/23 11/03/23 Range/Units 05:01 05:01 WBC 2.5 L (3.8-10.6) k/uL RBC 2.25 L (4.30-5.90) m/uL Hgb 7.7 L (13.0-17.5) gm/dL Hct 23.6 L (39.0-53.0) % MCV 104.6 H (80.0-100.0) fL RDW 18.4 H (11.5-15.5) % Plt Count 40 L (150-450) k/uL Lymphocytes # 0.6 L (1.0-4.8) k/uL Macrocytosis Marked A Sodium 132 L (137-145) mmol/L BUN 28 H (9-20) mg/dL Creatinine 1.85 H (0.66-1.25) mg/dL Glucose 101 H (74-99) mg/dL POC Glucose (mg/dL) (70-110) mg/dL Calcium 7.5 L (8.4-10.2) mg/dL Assessment and Plan Assessment: 1. Acute kidney injury secondary to ATN secondary to septic shock. Creatinine 3.54 on admission. Creatinine as low as 1.02 dated 10/01/23. Started on hemodialysis October 21, 2023 due to volume overload and hyperkalemia. Oliguric. No hydronephrosis noted on ultrasound. 2. Septic shock. Possibly SBP. On IV antibiotics. On Levophed. 3. Metabolic acidosis secondary to acute kidney injury. Improved postdialysis. 4. Hypervolemic hyponatremia. Improved. 5. Volume overload. Improving with ultrafiltration. 6. Alcohol induced liver cirrhosis. Patient noted to be pancytopenic. GI following. 7. Acute hypoxic respiratory failure. Intubated. 8. Diabetes mellitus. 9. Chronic diastolic CHF with moderate mitral regurgitation. 10. History of adrenal insufficiency. Currently on IV Solu-Cortef. 11. Hyperphosphatemia secondary to acute kidney injury. On PhosLo. Plan: Hemodialysis in a.m. Continue with midodrine.
[2023-11-03 11:19] LABS: Glucose,Whole Blood 99 mg/dL (70-110)
[2023-11-03 11:47] LABS: Glucose,Whole Blood 127 mg/dL (70-110)
--- NOTE | 2023-11-03 12:10 | P.PN ---
Subjective Progress Note Date: 11/03/23 10/28/2023, the patient is being seen for a follow-up. 63-year-old male patient with acute respiratory failure related to an underlying aspiration pneumonia with known history of alcoholic liver disease/cirrhosis and liver failure. The patient was extubated on 10/26/2023. Patient is known to have COPD and he grew also Pseudomonas aeruginosa in the sputum. The patient also has chronic liver, chronic kidney disease with an acute kidney injury attributed to ATN knowing that the patient's baseline creatinine 10/01/2023 was 1.02. He was started on hemodialysis on 10/21/2023 due to volume overload and hyperkalemia as the patient was having oliguria. The patient has no significant hydronephrosis., coronary disease, diabetes mellitus, hypothyroidism and history of chronic alcoholism. The patient is currently on 4 weeks of oxygen by nasal cannula. The most recent chest x-ray from 10/27/2023 showed improvement in the left-sided pleural effusion, small lung volumes and bibasilar opacities probably due to atelectasis. Noted the patient also has Pseudomonas in the sputum and the patient is currently on IV Zosyn. Patient remains on pressors and norepinephrine is running at 0.02 mcg/kg/min. Adrenal insufficiency was also suspected and the patient was placed on stress dose hydrocortisone 50 mg every 8 hours. The patient is also on Lasix 80 mg IV daily and Sandostatin 50 mcg every 8 hours subcu and midodrine 10 mg p.o. 3 times daily. Transfer diabetes mellitus, the patient remains on Levemir insulin 15 units in addition to sliding scale coverage. Patient received lactulose 30 g twice a day. The ultrasound-guided paracentesis was done on 10/25/2023 and the patient had a total of 6.2 L of ascitic fluid removed. Most recent echocardiogram was done on 07/05/2024 indicating preserved LV function with moderate degree of mitral regurgitation. The blood cultures during this current admission has been negative. I suspect fluid cultures were also negative. Note that the cell count of the sleep note was low at 7 and there is no clinical indication of SBP. Patient continues to have a soft blood pressure. He was taken off the norepinephrine and earlier this morning, the nursing staff had to put her back for blood pressure drop as his systolic blood pressure dropped and the map was at 56. Currently is on norepinephrine at 0.01 mcg/kg/m he is on 4 L of oxygen by nasal cannula. Swallow evaluation is being repeated to evaluate his swallow and give him his oral medication if possible. Awake and alert and communicating. His white cycles of 4.7 with a hemoglobin of 9.4 and a platelet count of 78. BUN is 43 with a creatinine of 2.64 and a sodium level is at 136 and a potassium level is at 4.4. Urine output is in the order of 2 80 mL over the past 24 hours. Obviously oliguric and the findings on the case and the patient is going to undergo hemodialysis session today. He had the patient's chest x-ray from today shows some atelectatic change in lung bases. No other significant abnormalities noted. His last paracentesis was done on 10/25/2023 and a total of 6.2 L of ascitic fluid was removed. On today's evaluation of 10/29/2023, I am seeing the patient for a follow-up. The patient is awake and alert. He was unable to pass a swallow evaluation and based on that the patient was given a Dobbhoff catheter for enteral feeding and nutritional support. He is currently receiving Nepro at a rate of 20 cc an hour and he is able to tolerate enteral feeding and needed to have a bowel movement. Note that the patient is also on lactulose regarding his liver cirrhosis. He is on oxygen at 4 L/min nasal cannula. He underwent hemodialysis yesterday with a total of 3.5 L of ultrafiltration. IV fluids are currently at KVO as the patient continues to have signs of fluid overload. He is on low-dose norepinephrine which is only at 0.04 mcg/kg/min.Meanwhile, his abdomen is felt to be slightly distended and ultrasound of the abdomen to be done today to assess for any ascites. His last paracentesis was done on 10/24/2023 with a total of 6.2 L of fluid being aspirated from his abdominal fluid. The patient's chest x-ray shows small lung volumes and atelectatic changes in the lung bases bilaterally. The patient is a large clip in the right humeral head. The Dobbho ff catheter is in a good location. Meanwhile, the white cell count at 6.1, hemoglobin is at 9.6 and a platelet count of 92. BUN is 46 with a creatinine of 2.8 and his sodium level is at 133 with a potassium level of 4.2. Blood sugar from this morning was at 168. He is communicating. He is profoundly weak still. He seems to be appropriate. He is aware that he is in the hospital. He is aware of his name and his date of . On today's evaluation of 10/30/2023, the patient is being seen for a follow-up. The patient is calm and comfortable. He remains profoundly weak. He is on room air oxygen. He has a Dobbhoff catheter in place and the patient is on enteral feeding for nutrition support and the patient is receiving Nepro. He underwent a dialysis without the filtration yesterday with a total of 3 L removed. He remains on low-dose norepinephrine at 0.02 mcg/kg/min. Another hemodialysis session is to be done today. Urine output is minimal. No other significant events overnight. No reported aspiration. No signs of any respiratory distress. The patient remains on IV Zosyn. The patient remains on Levemir insulin 15 units and sliding scale coverage. The patient remains on octreotide. The patient remains on stress dose hydrocortisone.As for the labs, the WBC count is at 3 with a mean of 8.9 and platelet count of 60. BUN is 48 with a creatinine of 2.8 and a sodium level is at 135. Ultrasound of the abdomen showed a moderate degree of abdominal ascites. He is stooling. No signs of any significant encephalopathy. As mentioned, remains profoundly weak On today's evaluation of 10/31/2023, the patient is being seen for a follow-up. The patient has no specific complaints. This morning, the patient is on room air oxygen. Dobbhoff catheter still in place and the patient receiving enteral feeding for nutrition support and the patient is currently on Nepro at 30 to 55 cc an hour and the patient had a bowel movement. The patient is currently on minimal dose of norepinephrine which is running at 0.02 mcg/kg/min. There is abdominal ascites and distention. His last hemodialysis session was done yesterday. Urine output is minimal at this point in time. He remains on IV Zosyn. No other significant issues otherwise. The patient is communicating at this point in time. The risk was 4.4 with a hemoglobin 9.5 and a platelet count of 69. BUN is 45 creatinine of 2.6 and a sodium level is at 135. No other significant events since yesterday and the patient's overall condition remains stable. Blood sugar from today is at 186. On today's evaluation of 11/01/2023, I am seeing the patient for a follow-up. The patient is awake and alert and communicating. No signs of any encephalopathy. The patient is going to undergo a barium swallow today and the patient will also have a permacath inserted for long-term dialysis. Based on that, his enteral feeding has been discontinued and the patient continues to have a Dobbhoff in place. He is currently on 2 L of oxygen by nasal cannula. His last hemodialysis session was done yesterday and the patient remains on norepinephrine 0.01 mcg/kg/min. BUN is a 43 with a creatinine of 2.2 and a sodium noted at 135 with a potassium level of 3.4. Serum bicarb is a 21. There is close of 3.5 with a hemoglobin of 9.7 and a platelet count of 42. The patient is currently on 2 L of O2 nasal cannula. Rest of the medication remains unchanged and the patient remains on IV Zosyn.The chest x-ray from today shows no evidence of any significant airspace disease. Atelectatic changes in the lung bases and the Dobbhoff is in a good location. On today's evaluation of 11/02/2023, the patient is being seen for a follow-up. The patient is doing well and the patient is awake. The permacath was inserted in his left IJ. The patient was also given a swallow evaluation in the Dobbhoff was removed as the patient was able to pass the swallow evaluation. The patient is currently taking oral food. He remains on low-dose norepinephrine at 0.02 mcg/kg/min. The patient underwent hemodialysis yesterday. Total amount of ultrafiltration was in the order of 500 cc. Continues to have some ascites and some increased lower extremity edema. The white cell count at 6.9 with a hemoglobin of 9.1. Platelet count is at 66. BUN is at 35 with a creatinine of 2.1 and a sodium levels of 135. The patient was found to have Pseudomonas in the sputum. The patient remains on IV Zosyn. This was started initially on and the patient is going to complete a 7-day course. The chest x-ray close post line insertion showed no acute abnormalities. No evidence of any pneumothorax the catheter is a good location. Some limited atelectatic changes were seen at lung bases bilaterally. Otherwise, the patient is awake and alert and communicating. No other significant events over the past 24 hours. 11/03/2023, the patient is being seen for a follow-up. Doing very well currently on room air oxygen and the patient is taking oral intake and cough catheter has been removed. He is also off pressors and norepinephrine were discontinued yesterday at around 4 PM. He underwent hemodialysis yesterday. Doing well. No specific complaints. Volume status is improving and the patient is currently producing minimal amount of urine output in the order of less than 5 cc on an hourly basis. Remains on IV Zosyn.Labs from today shows a white cell count of 2.5, hemoglobin of 7.7 and a platelet count of 40. Sodium is at 132 with a BUN of 28 and a creatinine of 1.85. Potassium level is at 3.7. Objective - Vital Signs Vital signs: Vital Signs Temp 98.0 F 11/03/23 04:00 Pulse 53 L 11/03/23 07:00 Resp 14 11/03/23 07:00 BP 114/53 11/03/23 07:00 Pulse Ox 100 11/03/23 07:00 FiO2 50 10/26/23 16:00 Intake & Output 11/02/23 11/03/23 11/03/23 18:59 06:59 18:59 Intake Total 1821.237 695 Output Total 2019 70 Balance -198.763 625 Weight 95.8 kg Intake: IV 375 195 Normal Saline @ KVO 175 195 Piperacillin-Tazobactam 3 200 .375 gm In Sodium Chloride 0.9% 100 ml @ 25 mls/hr IVPB Q8H [facility] Rx#: [id number] Intake, IV Titration 186.237 Amount Norepinephrine 4 mg In 186.237 Sodium Chloride 0.9% 250 ml @ 0.03 MCG/KG/MIN 9. 332 mls/hr IV .Q24H [facility] Rx#:[id number] Oral 860 500 Hemodialysis 400 Output: Urine 120 70 Hemodialysis 1900 Other: Voiding Method Indwelling Catheter Indwelling Catheter # Bowel Movements 1 1 ABP, PAP, CO, CI - Last Documented Arterial Blood Pressure 101/67 - Exam Examination General appearance the patient is calm comfortable no acute distress body mass index is 28.9 on room air oxygen Head exam was generally normal. There was no scleral icterus or corneal arcus. Mucous membranes were moist. Neck was supple and without jugular venous distension, thyromegaly, or carotid bruits. Carotids were easily palpable bilaterally. There was no adenopathy. The patient has left IJ permacath in place Lungs were clear to auscultation and percussion, and with normal diaphragmatic excursion. No wheezes or rales were noted. Cardiac exam revealed the PMI to be normally situated and sized. The rhythm was regular and no extrasystoles were noted during several minutes of auscultation. The first and second heart sounds were normal and physiologic splitting of the second heart sound was noted. There were no murmurs, rubs, clicks, or gallops. Abdomen is distended and the patient has ascites. There is fluid wave and shif ting dullness. No direct tenderness or rebound tenderness or guarding Extremities reveal +1-2 pitting edema and there is no cyanosis or clubbing neurologically, the patient is awake and alert and the patient does not have any focal neurological deficit. Cranial nerves are essentially intact. Examination of the skin revealed no evidence of significant rashes, suspicious appearing nevi or other concerning lesions. - Labs CBC & Chem 7: 11/03/23 05:01 11/03/23 05:01 Labs: Abnormal Lab Results - Last 24 Hours (Table) 11/02/23 11/02/23 11/02/23 Range/Units 11:19 16:19 20:03 WBC (3.8-10.6) k/uL RBC (4.30-5.90) m/uL Hgb (13.0-17.5) gm/dL Hct (39.0-53.0) % MCV (80.0-100.0) fL RDW (11.5-15.5) % Plt Count (150-450) k/uL Lymphocytes # (1.0-4.8) k/uL Macrocytosis Sodium (137-145) mmol/L BUN (9-20) mg/dL Creatinine (0.66-1.25) mg/dL Glucose (74-99) mg/dL POC Glucose (mg/dL) 149 H 195 H 243 H (70-110) mg/dL Calcium (8.4-10.2) mg/dL 11/03/23 11/03/23 Range/Units 05:01 05:01 WBC 2.5 L (3.8-10.6) k/uL RBC 2.25 L (4.30-5.90) m/uL Hgb 7.7 L (13.0-17.5) gm/dL Hct 23.6 L (39.0-53.0) % MCV 104.6 H (80.0-100.0) fL RDW 18.4 H (11.5-15.5) % Plt Count 40 L (150-450) k/uL Lymphocytes # 0.6 L (1.0-4.8) k/uL Macrocytosis Marked A Sodium 132 L (137-145) mmol/L BUN 28 H (9-20) mg/dL Creatinine 1.85 H (0.66-1.25) mg/dL Glucose 101 H (74-99) mg/dL POC Glucose (mg/dL) (70-110) mg/dL Calcium 7.5 L (8.4-10.2) mg/dL Assessment and Plan Plan: Acute respiratory failure, secondary to possible aspiration pneumonia, and alcoholic liver disease with alcoholic cirrhosis. Extubation was done on 10/26/2023. The patient is currently on room air oxygen. No signs of any respiratory distress. The patient is currently on room air oxygen nasal cannula. Chest x-ray from 11/01/2023 shows some atelectatic changes in the lung bases. No other significant abnormalities. Hypotension, multifactorial. This is partly related to septic shock and there may be also a component of adrenal insufficiency the patient remains on high- dose hydrocortisone and the patient is currently on pressors in addition to midodrine the patient remains off norepinephrine since yesterday Pseudomonas aeruginosa tracheobronchitis/bronchopneumonia. The patient is currently covered with IV Zosyn, completing a 7-day course, this was started on 10/30/2023 Liver cirrhosis with stigmata of chronic liver failure Ascites with a large-volume paracentesis that was done on 10/25/2023 with a total of 6.2 L of ascitic fluid removal. No evidence of SBP and the cultures are negative, repeat ultrasound of the abdomen. Repeat ultrasound abdomen shows moderate degree of ascites. Abdomen is slightly distended. History of alcoholism Acute kidney injury secondary to ATN due to septic shock. Patient is according hemodialysis due to volume overload. There is improvement with ultrafiltration. The patient is undergoing periodic dialysis. Last hemodialysis session was yesterday COPD Diabetes mellitus type 2 Coronary artery disease and based on echocardiogram that was done in June 2023, the patient has a preserved LV function with moderate degree of mitral regurgitation Hypothyroidism Non-anion gap metabolic acidosis secondary to renal failure, recovered Anemia of chronic disease Chronic thrombocytopenia rule out platelet sequestration versus drug effect. The patient is on Zosyn. Plan Insertion of a permacath was done successfully, continue more dialysis Dobbhoff catheter has been removed and the patient is able to swallow Currently on room air oxygen and overall respiratory status is stable Norepinephrine was discontinued Discontinue stress dose hydrocortisone will put the patient on cortisol 20 mg the morning and 10 mg in the evening Continue IV Zosyn, and discontinued antibiotic after completing a 7-day course Monitor platelet count Dialysis per nephrology Continue lactulose 30 g twice a day No need for paracentesis abdominal exam is soft We'll continue to follow. He is a full code
[2023-11-03 12:24] LABS: Anisocytosis Slight; HCT 25.1 % (39.0-53.0); HGB 8.2 gm/dL (13.0-17.5); Hypochromasia Slight; MCH 34.4 pg (25.0-35.0); MCHC 32.7 g/dL (31.0-37.0); MCV 105.1 fL (80.0-100.0); Macrocytosis Marked; Mean Platelet Volume 11.4; RBC 2.39 m/uL (4.30-5.90); RDW 18.8 % (11.5-15.5); WBC 3.5 k/uL (3.8-10.6)
[2023-11-03 12:31] LABS: Platelet Count 35 k/uL (150-450)
--- NOTE | 2023-11-03 15:05 | P.PN ---
Subjective Progress Note Date: 11/03/23 (delayed charting seen at 0930) Patient is a 63-year-old male with known liver disease requiring weekly paracentesis, recently diagnosed hepatorenal syndrome, adrenal insufficiency, diabetes, COPD, and coronary artery disease who presented to the ER via EMS after being found unresponsive at home. In the ER he underwent extensive evaluation. On arrival he was hypothermic and hypoglycemic with a blood sugar of 47 despite treatment by EMS. Initial labs in the ER included CBC, coags, CMP, TSH, troponin, BNP, and ABG which were remarkable for hemoglobin 10, platelet count 79, pH 7.2, bicarb 18, sodium 132, potassium 5.3, BUN 87, creatinine 3.54 up from 2.15 most recently, magnesium 2.5, BNP 6340, and TSH of 5.680. Initial chest x-ray as reviewed by myself shows significant right-sided pleural effusion with increased pulmonary vascular congestion. In the ER he was started on D5 half normal due to his persistent hypoglycemia, these were warmed fluids to help with his hypothermia. Patient became more and more dyspneic. He ultimately required vasopressors due to prolonged hypotension, and intubation due to worsening respiratory distress from IV fluids. He was started on propofol and norepinephrine. Critical care was consulted. Arrangements were made for admission to the ICU. He was transitioned to D10 with sodium bicarb. He was seen by nephrology and required emergent HD for hyperkalemia and acidosis. He was able to come off of vasopressors and his Solu-Cortef was weaned. He was able to come off of the bicarb drip. His hemodialysis catheter stopped functioning on 10/24 and a guidewire exchange was performed by vascular surgery. He had an ultrasound- guided paracentesis completed on 10/24/2023 with removal of 6.2 L of fluid. He was extubated on 10/26. He failed a swallow study and Dobbhoff tube was placed for enteral feedings. He continued to have minimal urine output. Cultures did come back positive for Pseudomonas pneumonia and antibiotics were streamlined to IV Zosyn. Patient had permacath placed on . He was able to come off Levo on 11/02/23 and his Steroids were transitioned to back to his home adrenal insufficiency dose. Patient seen and examined at bedside. He is feeling much better today. Denies any chest pain or shortness of breath. Shoulder pain is better. Denies any nausea or vomiting. Vital signs reviewed General: Nontoxic, no distress, appears at stated age Cardiovascular: S1S2 reg, no murmur Lungs: Coarse breath sounds bilateral, no rhonchi, no rales, no accessory muscle use Abdominal: Soft, nontender to palpation, no guarding, + distended Ext: No gross muscle atrophy, no edema b/l lower extremities, no contractures Neuro: CN II-XI grossly intact, no focal neuro deficits Psych: Alert, oriented, appropriate affect Assessment/Plan: Decompensated cirrhosis Pseudomonas Pneumonia. s/p treatment Septic shock, resolved Pancytopenia in the setting of acute illness and liver disease-- plt count worsening -Pulmonary note reviewed: Continue with lactulose 30 mg twice daily and dialysis. Resume home steroid dosing -Consult interventional radiology for possible paracentesis in AM. -Will discontinue Zosyn as this can induce thrombocytopenia and patient has completed 12 days. -Follow CBC, no indication for transfusion at this time -Continue to hold hold home aldactone and lisinopril due to hypotension -Continue to hold remeron and xanax as patient is currently on vert -Pulmonary note reviewed: Dobbhoff removed as patient is taking in orals. Insertion of permacath successful. Continue IV Zosyn. Acute kidney injury, due to ATN Chronic kidney disease stage III Hyperphosphatemia, secondary to SAHARA -Nephrology note reviewed: Hemodialysis in a.m. -Has been on HD since 10/21/23 - Charles for strict I's and O's - Midodrine 10 mg 3 times daily Insulin dependent diabetes - Prolonged hypoglycemia in an insulin-dependent diabetic, resolved - Decrease Levemir to 15 units at night giving transition off of IV Solu-Cortef - A1C 7.5 - SSI q 6 hours - follow BS Adrenal insufficiency now with shock -Hydrocortisone 20 mg in the morning and 10 mg in the evening Chronic: Coronary artery disease COPD without exacerbation Anemia of chronic disease Alcoholic cirrhosis Acute hypoxic respiratory failure , resolved Acute metabolic encephalopathy, resolved Hyerpvolemia hyponatremia, resolved Hyperkalemia, resolved Meatbolic acidosis, resolved Imaging: None new Data Review: Labs reviewed from today include CBC and basic metabolic profile which are remarkable for white blood cell count 3.5, hemoglobin 8.2, platelets 35, sodium 132 DVT prophylaxis: SCDs Anticipated discharge date: Pending Clinical Course Anticipated discharge place: Pending Clinical Course This dictation was prepared using [employer] voice recognition software. Though every attempt is made to correct errors during dictation some may still exist. Objective - Vital Signs Vital signs: Vital Signs Temp 98.1 F 11/03/23 12:00 Pulse 55 L 11/03/23 14:00 Resp 14 11/03/23 14:00 BP 108/77 11/03/23 14:00 Pulse Ox 96 11/03/23 14:00 FiO2 50 10/26/23 16:00 Intake & Output 11/02/23 11/03/23 11/03/23 18:59 06:59 18:59 Intake Total 1821.237 695 395 Output Total 2020 70 55 Balance -198.763 625 340 Weight 95.8 kg Intake: IV 375 195 195 Normal Saline @ KVO 175 195 95 Piperacillin-Tazobactam 3 200 100 .375 gm In Sodium Chloride 0.9% 100 ml @ 25 mls/hr IVPB Q8H [facility] Rx#: [id number] Intake, IV Titration 186.237 Amount Norepinephrine 4 mg In 186.237 Sodium Chloride 0.9% 250 ml @ 0.03 MCG/KG/MIN 9. 332 mls/hr IV .Q24H [facility] Rx#:[id number] Oral 860 500 200 Hemodialysis 400 Output: Urine 120 70 55 Hemodialysis 1900 Other: Voiding Method Indwelling Catheter Indwelling Catheter Indwelling Catheter # Bowel Movements 1 1 ABP, PAP, CO, CI - Last Documented Arterial Blood Pressure 101/67 - Labs CBC & Chem 7: 11/03/23 11:55 11/03/23 05:01 Labs: Abnormal Lab Results - Last 24 Hours (Table) 11/02/23 11/02/23 11/03/23 Range/Units 16:19 20:03 05:01 WBC 2.5 L (3.8-10.6) k/uL RBC 2.25 L (4.30-5.90) m/uL Hgb 7.7 L (13.0-17.5) gm/dL Hct 23.6 L (39.0-53.0) % MCV 104.6 H (80.0-100.0) fL RDW 18.4 H (11.5-15.5) % Plt Count 40 L (150-450) k/uL Lymphocytes # 0.6 L (1.0-4.8) k/uL Macrocytosis Marked A Sodium (137-145) mmol/L BUN (9-20) mg/dL Creatinine (0.66-1.25) mg/dL Glucose (74-99) mg/dL POC Glucose (mg/dL) 195 H 243 H (70-110) mg/dL Calcium (8.4-10.2) mg/dL 11/03/23 11/03/23 11/03/23 Range/Units 05:01 11:46 11:55 WBC 3.5 L (3.8-10.6) k/uL RBC 2.39 L (4.30-5.90) m/uL Hgb 8.2 L (13.0-17.5) gm/dL Hct 25.1 L (39.0-53.0) % MCV 105.1 H (80.0-100.0) fL RDW 18.8 H (11.5-15.5) % Plt Count 35 L (150-450) k/uL Lymphocytes # (1.0-4.8) k/uL Macrocytosis Marked A Sodium 132 L (137-145) mmol/L BUN 28 H (9-20) mg/dL Creatinine 1.85 H (0.66-1.25) mg/dL Glucose 101 H (74-99) mg/dL POC Glucose (mg/dL) 127 H (70-110) mg/dL Calcium 7.5 L (8.4-10.2) mg/dL
[2023-11-03 16:27] LABS: Glucose,Whole Blood 136 mg/dL (70-110)
[2023-11-03 20:12] LABS: Glucose,Whole Blood 207 mg/dL (70-110)
[2023-11-03] MEDS: INSULIN DETEMIR (LEVEMIR) 100 UNIT/ML SYR SQ SCH (20:23)
[2023-11-03] MEDS: HYDROCORTISONE 10 MG TAB PO SCH (20:23)
[2023-11-04 05:52] LABS: Anisocytosis Slight; HCT 23.5 % (39.0-53.0); HGB 7.8 gm/dL (13.0-17.5); MCH 34.3 pg (25.0-35.0); MCHC 33.2 g/dL (31.0-37.0); MCV 103.3 fL (80.0-100.0); Macrocytosis Moderate; Mean Platelet Volume 10.1; RBC 2.28 m/uL (4.30-5.90); RDW 19.1 % (11.5-15.5); WBC 3.3 k/uL (3.8-10.6)
[2023-11-04 05:53] LABS: Platelet Count 47 k/uL (150-450)
[2023-11-04 05:58] LABS: African American GFR (CKD) 33 (>60 ml/min/1.73 sqM); Anion Gap 4 mmol/L; Blood Urea Nitrogen 34 mg/dL (9-20); Calcium 7.3 mg/dL (8.4-10.2); Carbon Dioxide 25 mmol/L (22-30); Chloride 102 mmol/L (98-107); Glucose 122 mg/dL (74-99); Non-African American GFR(CKD) 29 (>60 ml/min/1.73 sqM); Potassium 3.4 mmol/L (3.5-5.1); Sodium 131 mmol/L (137-145)
[2023-11-04] MEDS: LEVOTHYROXINE 100 MCG TAB PO SCH (06:23)
[2023-11-04] MEDS: POTASSIUM CHLORIDE ER 20 MEQ TAB.ER PO STA (07:24)
--- NOTE | 2023-11-04 08:37 | P.PN ---
Subjective Patient is seen in follow-up for acute kidney injury. Started on hemodialysis October 21, 2023. Oliguric. Intubated. Potassium replaced this morning. Scheduled for dialysis today. Remains off vasopressors. Underwent paracentesis October 24, 2023 with about 6 L drained. Vital signs are stable. Off vasopressor support. General: Resting in bed. HEENT: On room air. LUNGS: Scattered rhonchi. HEART: Rate and Rhythm are regular. ABDOMEN: Distention noted. EXTREMITITES: 2+ edema. Objective - Vital Signs Vital signs: Vital Signs Temp 97.9 F 11/04/23 00:00 Pulse 80 11/04/23 07:00 Resp 20 11/04/23 07:00 BP 113/63 11/04/23 07:00 Pulse Ox 92 L 11/04/23 07:00 FiO2 50 10/26/23 16:00 Intake & Output 11/03/23 11/04/23 11/04/23 18:59 06:59 18:59 Intake Total 415 Output Total 55 40 Balance 360 -40 Weight 96.7 kg Intake: IV 215 Normal Saline @ KVO 115 Piperacillin-Tazobactam 3 100 .375 gm In Sodium Chloride 0.9% 100 ml @ 25 mls/hr IVPB Q8H [facility] Rx#: [id number] Oral 200 Output: Urine 55 40 Other: Voiding Method Indwelling Catheter Indwelling Catheter # Bowel Movements 1 ABP, PAP, CO, CI - Last Documented Arterial Blood Pressure 101/67 - Labs CBC & Chem 7: 11/04/23 04:44 11/04/23 04:44 Labs: Abnormal Lab Results - Last 24 Hours (Table) 11/03/23 11/03/23 11/03/23 Range/Units 11:46 11:55 16:26 WBC 3.5 L (3.8-10.6) k/uL RBC 2.39 L (4.30-5.90) m/uL Hgb 8.2 L (13.0-17.5) gm/dL Hct 25.1 L (39.0-53.0) % MCV 105.1 H (80.0-100.0) fL RDW 18.8 H (11.5-15.5) % Plt Count 35 L (150-450) k/uL Macrocytosis Marked A Sodium (137-145) mmol/L Potassium (3.5-5.1) mmol/L BUN (9-20) mg/dL Creatinine (0.66-1.25) mg/dL Glucose (74-99) mg/dL POC Glucose (mg/dL) 127 H 136 H (70-110) mg/dL Calcium (8.4-10.2) mg/dL 11/03/23 11/04/23 11/04/23 Range/Units 20:10 04:44 04:44 WBC 3.3 L (3.8-10.6) k/uL RBC 2.28 L (4.30-5.90) m/uL Hgb 7.8 L (13.0-17.5) gm/dL Hct 23.5 L (39.0-53.0) % MCV 103.3 H (80.0-100.0) fL RDW 19.1 H (11.5-15.5) % Plt Count 47 L (150-450) k/uL Macrocytosis Sodium 131 L (137-145) mmol/L Potassium 3.4 L (3.5-5.1) mmol/L BUN 34 H (9-20) mg/dL Creatinine 2.37 H (0.66-1.25) mg/dL Glucose 122 H (74-99) mg/dL POC Glucose (mg/dL) 207 H (70-110) mg/dL Calcium 7.3 L (8.4-10.2) mg/dL Assessment and Plan Plan: Assessment: 1. Acute kidney injury secondary to ATN secondary to septic shock. Creatinine 3.54 on admission. Creatinine as low as 1.02 dated 10/01/23. Started on hemodialysis October 21, 2023 due to volume overload and hyperkalemia. Oliguric. No hydronephrosis noted on ultrasound. 2. Septic shock. Concern for pneumonia. On IV antibiotics. Off Levophed. 3. Metabolic acidosis secondary to acute kidney injury. Improved postdialysis. 4. Hypervolemic hyponatremia. Improved. 5. Volume overload. Improved with ultrafiltration. 6. Alcohol induced liver cirrhosis. Patient noted to be pancytopenic. GI following. 7. Acute hypoxic respiratory failure. 8. Diabetes mellitus. 9. Chronic diastolic CHF with moderate mitral regurgitation. 10. History of adrenal insufficiency. On Cortef. 11. Hyperphosphatemia secondary to acute kidney injury. On PhosLo. Plan: Hemodialysis today. Add torsemide. Maintain midodrine. Status post paracentesis October 24, 2023 with 6.1 L drained. Avoid nephrotoxins. Continue to monitor renal function and urine output. Repeat phosphorus level. Encouraged oral intake. Okay to DC Charles catheter.
[2023-11-04] MEDS: TORSEMIDE 20 MG TAB PO SCH (09:15)
--- NOTE | 2023-11-04 09:46 | US ---
EXAMINATION TYPE: US abdomen limited DATE OF EXAM: 11/04/2023 COMPARISON: Multiple, most recent US 10/29/2023 CLINICAL INDICATION: Male, 63 years old with history of ascites; Moderate abdominal ascites within the abdomen. IMPRESSION: Moderate abdominal ascites.
[2023-11-04 11:37] LABS: Glucose,Whole Blood 157 mg/dL (70-110)
--- NOTE | 2023-11-04 12:35 | P.PN ---
Subjective Progress Note Date: 11/04/23 Principal diagnosis: Decompensated cirrhosis of the liver This is a a 63-year-old male with known alcoholic apparently patient also continues to drink 1-2 drinks weekly liver disease requiring weekly paracentesis, recent acute kidney injury, adrenal insufficiency, diabetes, COPD, and coronary artery disease who presented to the ER via EMS after being found unresponsive at home. Who was initially seen on 10/21/2023 note is currently presumptive positive for the virus consult was performed in conversation with the patient using the telephone, they consented to consult conversation with her 10:07 AM until 10:15 AM, 8 minutes in duration. The physical exam will be deferred to the primary team.. HPI is obtained from chart. On arrival he was hypothermic and hypoglycemic with a blood sugar of 47 despite treatment by EMS. Initial labs in the ER included CBC, coags, CMP, TSH, troponin, BNP, and ABG which were remarkable for hemoglobin 10, platelet count 79, pH 7.2, bicarb 18, sodium 132, potassium 5.3, BUN 87, creatinine 3.54 up from 2.15 most recently, magnesium 2.5, BNP 6340, and TSH of 5.680. Initial chest x-ray shows significant right-sided pleural effusion with increased pulmonary vascular congestion. In the ER he was started on D5 half normal due to his persistent hypoglycemia, these were warmed fluids to help with his hypothermia. Patient became more and more dyspneic. He ultimately required vasopressors due to prolonged hypotension, and intubation due to worsening respiratory distress from IV fluids. He was started on propofol and norepinephrine. Critical care was consulted and he was admitted to the ICU. Patient is currently admitted to the ICU he is sedated and on mechanical ventilation. Apparently prior to the patient coming into the emergency department he was watching the [employer] game and around midnight he wanted a snack however did not he did then around 1 AM was found on the floor next to his recliner. EMS was called and he was brought into the emergency department. He was recently hospitalized and discharged to [facility] which he was then discharged from there about 8 days ago. Apparently patient has been drinking 1- 2 drinks weekly but has a significant history of heavy alcohol use in the past. 10/22/2023 Patient seen and examined as a follow-up today in the ICU. He remains sedated and intubated. Patient noted to have acute kidney injury and was started on hemodialysis. Currently undergoing hemodialysis at this time. Today's labs WBC 5.2 hemoglobin 9.9 hematocrit 31 platelet count 98,000 sodium 132 potassium 5.5 BUN 74 creatinine 3.1 glucose 245 calcium 7.4 phosphorus 9.0 total bilirubin 0.6 AST 29 ALT 27 alkaline phosphatase 113 10/23/2023 Patient seen and examined as a follow-up in the ICU. He remains sedated and intubated on mechanical ventilation. Patient has increased abdominal distention. He has OG tube in place. Underwent dialysis yesterday. No reported bowel movement according to his nurse. However ammonia level improving and latest is 11. Final sputum culture with Pseudomonas aeruginosa. Primary team has ordered ultrasound for paracentesis. Fluid studies and culture ordered. He is currently on octreotide. He was switched from Rocephin to Zosyn. He remains afebrile 10/24/2023 Patient seen and examined as a follow-up. He remains in the ICU intubated on mechanical ventilation. Good urine output. He is scheduled for dialysis as well as paracentesis today. He still has not had any bowel movement despite being given his lactulose. He was started on Reglan. Ammonia level has been normal. WBC 4.7 hemoglobin 9.7 platelet count 56,000 sodium 131 potassium 4.7 BUN 55 creatinine 2.7 total bilirubin 0.6 AST 20 ALT 22 alkaline phosphatase 102 ammonia less than 9. He is on IV Lasix, remains on midodrine scheduled to get 25 g IV albumin pre and post paracentesis. Tube feedings are being decreased due to high residuals. 10/25/2023 Patient is seen and examined as a follow-up. He remains in the ICU intubated at sedated and on mechanical ventilation. Tube feedings were resumed without any residual. He still has not had any bowel movements. He had a paracentesis yesterday with 6.2 L removed. 11/04/2023 Patient seen and examined today as a follow-up. We were initially consulted on 10/21/2023 for history of alcoholic cirrhosis of the liver. During which time patient was admitted to the hospital and the ICU and was sedated and intubated. He remains in the ICU. He has been extubated. Yesterday he was weaned from pressors. Today he states overall he just does not feel well. He is coughing. He had abdominal ultrasound that shows moderate amount of ascites. Patient is scheduled to undergo paracentesis however platelet count was 47,000 today. Objective - Vital Signs Vital signs: Vital Signs Temp 98.1 F 11/04/23 08:00 Pulse 80 11/04/23 08:00 Resp 16 11/04/23 08:00 BP 100/74 11/04/23 08:00 Pulse Ox 98 11/04/23 08:00 FiO2 50 10/26/23 16:00 Intake & Output 11/03/23 11/04/23 11/04/23 18:59 06:59 18:59 Intake Total 415 Output Total 55 40 Balance 360 -40 Weight 96.7 kg Intake: IV 215 Normal Saline @ KVO 115 Piperacillin-Tazobactam 3 100 .375 gm In Sodium Chloride 0.9% 100 ml @ 25 mls/hr IVPB Q8H [facility] Rx#: [id number] Oral 200 Output: Urine 55 40 Other: Voiding Method Indwelling Catheter Indwelling Catheter # Bowel Movements 1 ABP, PAP, CO, CI - Last Documented Arterial Blood Pressure 101/67 - Exam General appearance: The patient is alert and oriented. HET: Head is normocephalic and atraumatic. Conjunctiva pink. Sclera anicteric. Neck: Supple without lymphadenopathy. Abdomen: Distended. No guarding or rigidity. Extremities: Normal skin color and turgor. Bilateral lower extremity edema. Skin: No rashes, no jaundice Neurological: Alert and oriented. No apparent focal deficits. - Labs CBC & Chem 7: 11/04/23 04:44 11/04/23 04:44 Labs: Abnormal Lab Results - Last 24 Hours (Table) 11/03/23 11/03/23 11/03/23 Range/Units 11:46 11:55 16:26 WBC 3.5 L (3.8-10.6) k/uL RBC 2.39 L (4.30-5.90) m/uL Hgb 8.2 L (13.0-17.5) gm/dL Hct 25.1 L (39.0-53.0) % MCV 105.1 H (80.0-100.0) fL RDW 18.8 H (11.5-15.5) % Plt Count 35 L (150-450) k/uL Macrocytosis Marked A Sodium (137-145) mmol/L Potassium (3.5-5.1) mmol/L BUN (9-20) mg/dL Creatinine (0.66-1.25) mg/dL Glucose (74-99) mg/dL POC Glucose (mg/dL) 127 H 136 H (70-110) mg/dL Calcium (8.4-10.2) mg/dL 11/03/23 11/04/23 11/04/23 Range/Units 20:10 04:44 04:44 WBC 3.3 L (3.8-10.6) k/uL RBC 2.28 L (4.30-5.90) m/uL Hgb 7.8 L (13.0-17.5) gm/dL Hct 23.5 L (39.0-53.0) % MCV 103.3 H (80.0-100.0) fL RDW 19.1 H (11.5-15.5) % Plt Count 47 L (150-450) k/uL Macrocytosis Sodium 131 L (137-145) mmol/L Potassium 3.4 L (3.5-5.1) mmol/L BUN 34 H (9-20) mg/dL Creatinine 2.37 H (0.66-1.25) mg/dL Glucose 122 H (74-99) mg/dL POC Glucose (mg/dL) 207 H (70-110) mg/dL Calcium 7.3 L (8.4-10.2) mg/dL Assessment and Plan (1) Alcoholic liver disease Narrative/Plan: 63-year-old male with known alcoholic liver disease underlying cirrhosis from the above. Was found nonresponsive and hypoglycemic. He was brought into the emergency department was hypotensive requiring pressors and then became hypoxic requiring intubation. Also patient gets weekly paracentesis last documented paracentesis 10/15/2023 4 to 4.8 L of fluid removed. Patient was also recently transfer to an outside facility for suspected GI bleed. Patient reportedly continues to drink 1-2 drinks weekly. Continue supportive care at this time we will hold off on any paracentesis due to hypotension and pressor support. Will defer diuretics to nephrology. Patient was extubated and pressors have been discontinued. Abdominal ultrasound reveals moderate amount of fluid. Primary medical team has ordered repeat paracentesis. Platelets 47,000, patient will need platelet transfusion prior to paracentesis. Patient would also require albumin during and after paracentesis Current Visit: Yes Status: Acute Code(s): K70.9 - ALCOHOLIC LIVER DISEASE, UNSPECIFIED SNOMED Code(s): 91134380 (2) Hypotension Current Visit: Yes Status: Acute Code(s): I95.9 - HYPOTENSION, UNSPECIFIED SNOMED Code(s): 51807219 (3) Thrombocytopenia Current Visit: Yes Status: Acute Code(s): D69.6 - THROMBOCYTOPENIA, UNSPECIFIED SNOMED Code(s): 666229785 (4) Ascites Narrative/Plan: Diuretics deferred to nephrology Current Visit: Yes Status: Acute Code(s): R18.8 - OTHER ASCITES SNOMED Code(s): 499722086 (5) History of alcohol abuse Current Visit: No Status: Acute Code(s): F10.11 - ALCOHOL ABUSE, IN REMISSION SNOMED Code(s): 220537046 (6) Hypoglycemia Current Visit: No Status: Acute Code(s): E16.2 - HYPOGLYCEMIA, UNSPECIFIED SNOMED Code(s): 591376134 (7) Hyponatremia Current Visit: No Status: Acute Code(s): E87.1 - HYPO-OSMOLALITY AND HYPONATREMIA SNOMED Code(s): 35344867 (8) Hypoxia Narrative/Plan: Patient has been extubated. Current Visit: No Status: Acute Code(s): R09.02 - HYPOXEMIA SNOMED Code(s): 796088038 (9) SAHARA (acute kidney injury) Current Visit: Yes Status: Acute Priority: High Code(s): N17.9 - ACUTE KIDNEY FAILURE, UNSPECIFIED SNOMED Code(s): 58206880 Plan: 1. Continue symptomatic and supportive care 2. Continue ICU management 3. Diuretics per recommendations from nephrology 4. Alcohol abstinence 5. Paracentesis ordered 6. Recommend albumin during and post paracentesis 7. Continue lactulose 8. Agree with platelets prior to paracentesis 9. Recommend outpatient follow-up with gastroenterology Thank you for this consultation, we will continue to follow. Dr. Tessy Lynch I agree with the dictator's note, documented as a scribe by Светлана Rubin.
--- NOTE | 2023-11-04 14:00 | P.PN ---
Subjective Progress Note Date: 11/04/23 Principal diagnosis: Acute hypoxic respiratory failure and hypotension, multifactorial 10/28/2023, the patient is being seen for a follow-up. 63-year-old male patient with acute respiratory failure related to an underlying aspiration pneumonia with known history of alcoholic liver disease/cirrhosis and liver failure. The patient was extubated on 10/26/2023. Patient is known to have COPD and he grew also Pseudomonas aeruginosa in the sputum. The patient also has chronic liver, chronic kidney disease with an acute kidney injury attributed to ATN knowing that the patient's baseline creatinine 10/01/2023 was 1.02. He was started on hemodialysis on 10/21/2023 due to volume overload and hyperkalemia as the patient was having oliguria. The patient has no significant hydronephrosis., coronary disease, diabetes mellitus, hypothyroidism and history of chronic alcoholism. The patient is currently on 4 weeks of oxygen by nasal cannula. The most recent chest x-ray from 10/27/2023 showed improvement in the left-sided pleural effusion, small lung volumes and bibasilar opacities probably due to atelectasis. Noted the patient also has Pseudomonas in the sputum and the patient is currently on IV Zosyn. Patient remains on pressors and norepinephrine is running at 0.02 mcg/kg/min. Adrenal insufficiency was also suspected and the patient was placed on stress dose hydrocortisone 50 mg every 8 hours. The patient is also on Lasix 80 mg IV daily and Sandostatin 50 mcg every 8 hours subcu and midodrine 10 mg p.o. 3 times daily. Transfer diabetes mellitus, the patient remains on Levemir insulin 15 units in addition to sliding scale coverage. Patient received lactulose 30 g twice a day. The ultrasound-guided paracentesis was done on 2 10/25/2023 and the patient had a total of 6.2 L of ascitic fluid removed. Most recent echocardiogram was done on 07/05/2024 indicating preserved LV function with moderate degree of mitral regurgitation. The blood cultures during this current admission has been negative. I suspect fluid cultures were also negative. Note that the cell count of the sleep note was low at 7 and there is no clinical indication of SBP. Patient continues to have a soft blood pressure. He was taken off the norepinephrine and earlier this morning, the nursing staff had to put her back for blood pressure drop as his systolic blood pressure dropped and the map was at 56. Currently is on norepinephrine at 0.01 mcg/kg/m he is on 4 L of oxygen by nasal cannula. Swallow evaluation is being repeated to evaluate his swallow and give him his oral medication if possible. Awake and alert and communicating. His white cycles of 4.7 with a hemoglobin of 9.4 and a platelet count of 78. BUN is 43 with a creatinine of 2.64 and a sodium level is at 136 and a potassium level is at 4.4. Urine output is in the order of 2 80 mL over the past 24 hours. Obviously oliguric and the findings on the case and the patient is going to undergo hemodialysis session today. He had the patient's chest x-ray from today shows some atelectatic change in lung bases. No other significant abnormalities noted. His last paracentesis was done on 10/25/2023 and a total of 6.2 L of ascitic fluid was removed. On today's evaluation of 11/02/2023, the patient is being seen for a follow-up. The patient is doing well and the patient is awake. The permacath was inserted in his left IJ. The patient was also given a swallow evaluation in the [place] was removed as the patient was able to pass the swallow evaluation. The patient is currently taking oral food. He remains on low-dose norepinephrine at 0.02 mcg/kg/min. The patient underwent hemodialysis yesterday. Total amount of ultrafiltration was in the order of 500 cc. Continues to have some ascites and some increased lower extremity edema. The white cell count at 6.9 with a hemoglobin of 9.1. Platelet count is at 66. BUN is at 35 with a creatinine of 2.1 and a sodium levels of 135. The patient was found to have Pseudomonas in the sputum. The patient remains on IV Zosyn. This was started initially on 10/30/2023 and the patient is going to complete a 7-day course. The chest x-ray close post line insertion showed no acute abnormalities. No evidence of any pneumothorax the catheter is a good location. Some limited atelectatic changes were seen at lung bases bilaterally. Otherwise, the patient is awake and alert and communicating. No other significant events over the past 24 hours. 11/03/2023, the patient is being seen for a follow-up. Doing very well currently on room air oxygen and the patient is taking oral intake and cough catheter has been removed. He is also off pressors and norepinephrine were discontinued yesterday at around 4 PM. He underwent hemodialysis yesterday. Doing well. No specific complaints. Volume status is improving and the patient is currently producing minimal amount of urine output in the order of less than 5 cc on an hourly basis. Remains on IV Zosyn.Labs from today shows a white cell count of 2.5, hemoglobin of 7.7 and a platelet count of 40. Sodium is at 132 with a BUN of 28 and a creatinine of 1.85. Potassium level is at 3.7. Patient was reevaluated today on 11/04/2023, patient was seen on follow-up, remains in the ICU, patient is now off all pressors, volume status is improving, remains on Zosyn, remains on maintenance dose of Solu-Cortef/hydrocortisone, remains on Zosyn for his Pseudomonas tracheobronchitis/bronchopneumonia. Has been on this since 10/30. Patient continues to have stigmata of chronic liver disease. His last paracentesis was done on and he had 6.2 L of ascitic fluid removed. Patient has gone periodic dialysis, and he has a dialysis catheter in place. Labs today WBC 3.3 hemoglobin 7.8. Basic metabolic profile is normal BUN is 34 creatinine 2.37, abdominal ultrasound today showed moderate abdominal ascites may have to consider another paracentesis on this patient in the next 24 hours. Objective - Vital Signs Vital signs: Vital Signs Temp 98.1 F 11/04/23 08:00 Pulse 80 11/04/23 08:00 Resp 16 11/04/23 08:00 BP 100/74 11/04/23 08:00 Pulse Ox 98 11/04/23 08:00 FiO2 50 10/26/23 16:00 Intake & Output 11/03/23 11/04/23 11/04/23 18:59 06:59 18:59 Intake Total 415 Output Total 55 40 Balance 360 -40 Weight 96.7 kg 96.7 kg Intake: IV 215 Normal Saline @ KVO 115 Piperacillin-Tazobactam 3 100 .375 gm In Sodium Chloride 0.9% 100 ml @ 25 mls/hr IVPB Q8H [facility] Rx#: [id number] Oral 200 Output: Urine 55 40 Other: Voiding Method Indwelling Catheter Indwelling Catheter # Bowel Movements 1 ABP, PAP, CO, CI - Last Documented Arterial Blood Pressure 101/67 - Exam General: The patient is awake and alert, in no distress, and does not appear acutely ill. On room air, Skin: Skin is warm and dry and no rashes or lesions are noted. Eye: Pupils are equal, round and reactive to light, extra-ocular movements are intact; there is normal conjunctiva bilaterally. Ears, nose, mouth and throat: There are moist mucous membranes and no oral lesions. Neck: The neck is supple, there is no tenderness or JVD. Left IJ permacath is noted in place. Cardiovascular: There is a regular rate and rhythm. No murmur, rub or gallop is appreciated. Respiratory: Clear bilaterally no rhonchi no wheezes Gastrointestinal: Slight ascites noted, nontender, no rebound, no guarding. Back: There is no tenderness to palpation in the midline. There is no obvious deformity. Musculoskeletal: Normal ROM, no tenderness, There is no pedal edema. There is no calf tenderness or swelling. No cords were appreciated. Neurological: CN II-XII intact, Cranial nerves III through XII are intact. There are no obvious motor or sensory deficits. Coordination appears grossly intact. Speech is normal. Psychiatric: Cooperative, appropriate mood & affect, normal judgment. - Labs CBC & Chem 7: 11/04/23 04:44 11/04/23 04:44 Labs: Abnormal Lab Results - Last 24 Hours (Table) 11/03/23 11/03/23 11/04/23 Range/Units 16:26 20:10 04:44 WBC 3.3 L (3.8-10.6) k/uL RBC 2.28 L (4.30-5.90) m/uL Hgb 7.8 L (13.0-17.5) gm/dL Hct 23.5 L (39.0-53.0) % MCV 103.3 H (80.0-100.0) fL RDW 19.1 H (11.5-15.5) % Plt Count 47 L (150-450) k/uL Sodium (137-145) mmol/L Potassium (3.5-5.1) mmol/L BUN (9-20) mg/dL Creatinine (0.66-1.25) mg/dL Glucose (74-99) mg/dL POC Glucose (mg/dL) 136 H 207 H (70-110) mg/dL Calcium (8.4-10.2) mg/dL 11/04/23 11/04/23 Range/Units 04:44 11:36 WBC (3.8-10.6) k/uL RBC (4.30-5.90) m/uL Hgb (13.0-17.5) gm/dL Hct (39.0-53.0) % MCV (80.0-100.0) fL RDW (11.5-15.5) % Plt Count (150-450) k/uL Sodium 131 L (137-145) mmol/L Potassium 3.4 L (3.5-5.1) mmol/L BUN 34 H (9-20) mg/dL Creatinine 2.37 H (0.66-1.25) mg/dL Glucose 122 H (74-99) mg/dL POC Glucose (mg/dL) 157 H (70-110) mg/dL Calcium 7.3 L (8.4-10.2) mg/dL Assessment and Plan Assessment: Impression: Acute hypoxic respiratory failure secondary to aspiration pneumonia, liver cirrhosis, and ascites secondary to liver cirrhosis. Hypotension, multifactorial secondary to adrenal insufficiency, septic shock Pseudomonas aeruginosa tracheobronchitis, possible bronchopneumonia secondary to tracheobronchitis remains on Zosyn Liver cirrhosis with ascites, status post large-volume thoracentesis on 10/25/2023 total amount removed 6.2 L, fluid was not infected and there was no evidence of SBP History of alcoholism Acute kidney injury secondary to septic shock quiring hemodialysis Underlying COPD presently stable Type 2 diabetes Underlying coronary artery disease Moderate mitral regurgitation Hypothyroidism Anemia of chronic disease Chronic thrombocytopenia recommendation: Continue hydrocortisone 20 mg in a.m. and 10 mg in p.m. Continue to monitor blood pressure Continue antibiotics for now discontinue after a 7-day course total. Continue to monitor labs including CBC and basic metabolic profile as well as liver profile Continue lactulose 30 g twice daily Consider paracentesis hopefully prior to discharge. No urgency to do paracentesis at this point. Continue nutritional support/patient is eating on his own and is able to swallow Patient is off pressors for now Transfer to a regular medical floor. Will continue to follow Time with Patient: Less than 30
--- NOTE | 2023-11-04 15:59 | P.PN ---
Subjective Progress Note Date: 11/04/23 (delayed charting seen at 0845) Patient is a 63-year-old male with known liver disease requiring weekly paracentesis, recently diagnosed hepatorenal syndrome, adrenal insufficiency, diabetes, COPD, and coronary artery disease who presented to the ER via EMS after being found unresponsive at home. In the ER he underwent extensive evaluation. On arrival he was hypothermic and hypoglycemic with a blood sugar of 47 despite treatment by EMS. Initial labs in the ER included CBC, coags, CMP, TSH, troponin, BNP, and ABG which were remarkable for hemoglobin 10, platelet count 79, pH 7.2, bicarb 18, sodium 132, potassium 5.3, BUN 87, creatinine 3.54 up from 2.15 most recently, magnesium 2.5, BNP 6340, and TSH of 5.680. Initial chest x-ray as reviewed by myself shows significant right-sided pleural effusion with increased pulmonary vascular congestion. In the ER he was started on D5 half normal due to his persistent hypoglycemia, these were warmed fluids to help with his hypothermia. Patient became more and more dyspneic. He ultimately required vasopressors due to prolonged hypotension, and intubation due to worsening respiratory distress from IV fluids. He was started on propofol and norepinephrine. Critical care was consulted. Arrangements were made for admission to the ICU. He was transitioned to D10 with sodium bicarb. He was seen by nephrology and required emergent HD for hyperkalemia and acidosis. He was able to come off of vasopressors and his Solu-Cortef was weaned. He was able to come off of the bicarb drip. His hemodialysis catheter stopped functioning on 10/24 and a guidewire exchange was performed by vascular surgery. He had an ultrasound- guided paracentesis completed on 10/24/2023 with removal of 6.2 L of fluid. He was extubated on 10/26. He failed a swallow study and Dobbhoff tube was placed for enteral feedings. He continued to have minimal urine output. Cultures did come back positive for Pseudomonas pneumonia and antibiotics were streamlined to IV Zosyn. Patient had permacath placed on . He was able to come off Levo on 11/02/23 and his Steroids were transitioned to back to his home adrenal insufficiency dose. Patient seen and examined at bedside. He reports feeling well. Much improved since yesterday. He does report increased distention of his stomach. Denies any pain or shortness of breath. Anxious to work with therapy and work towards getting home. Vital signs reviewed General: Nontoxic, no distress, appears at stated age Cardiovascular: S1S2 reg, no murmur Lungs: Coarse breath sounds bilateral, no rhonchi, no rales, no accessory muscle use Abdominal: Soft, nontender to palpation, no guarding, + distended Ext: No gross muscle atrophy, no edema b/l lower extremities, no contractures Neuro: CN II-XI grossly intact, no focal neuro deficits Psych: Alert, oriented, appropriate affect Assessment/Plan: Decompensated cirrhosis Pseudomonas Pneumonia. s/p treatment Septic shock, resolved Pancytopenia in the setting of acute illness and liver disease-- plt count worsening -Critical care recommendations: Continue current plan of care -Patient will need 1 unit of platelets to be transfused with paracentesis. Ther efore paracentesis will have to be delayed until tomorrow. -Will discontinue Zosyn as this can induce thrombocytopenia and patient has completed 12 days. -Follow CBC, no indication for transfusion at this time -Continue to hold hold home aldactone and lisinopril due to hypotension -Continue to hold remeron and xanax -GI recommendations: Follow-up outpatient with gastroenterology, continue lactu lose, albumin with paracentesis. Acute kidney injury, due to ATN Chronic kidney disease stage III Hyperphosphatemia, secondary to SAHARA -Nephrology note reviewed: Add torsemide, continue midodrine, hemodialysis today, recommend repeat paracentesis. Okay to DC Charles catheter. -Has been on HD since 10/21/23 - Charles for strict I's and O's - Midodrine 10 mg 3 times daily Insulin dependent diabetes - Prolonged hypoglycemia in an insulin-dependent diabetic, resolved - Levemir to 15 units at night - A1C 7.5 - SSI q 6 hours - follow BS Adrenal insufficiency now with shock -Hydrocortisone 20 mg in the morning and 10 mg in the evening Chronic: Coronary artery disease COPD without exacerbation Anemia of chronic disease Alcoholic cirrhosis Acute hypoxic respiratory failure , resolved Acute metabolic encephalopathy, resolved Hyerpvolemia hyponatremia, resolved Hyperkalemia, resolved Meatbolic acidosis, resolved Imaging: Abdominal ultrasound: Moderate ascites Data Review: Labs reviewed from today include CBC and basic metabolic profile which are remarkable for white blood cell count 3.3, hemoglobin 7.8, platelets of 47, sodium 131, potassium 3.4. DVT prophylaxis: SCDs Anticipated discharge date: Pending Clinical Course Anticipated discharge place: Pending Clinical Course This dictation was prepared using [email or web address] voice recognition software. Though every attempt is made to correct errors during dictation some may still exist. Objective - Vital Signs Vital signs: Vital Signs Temp 97.9 F 11/04/23 14:00 Pulse 92 11/04/23 14:00 Resp 18 11/04/23 14:00 BP 95/67 11/04/23 14:00 Pulse Ox 97 11/04/23 14:00 FiO2 50 10/26/23 16:00 Intake & Output 11/03/23 11/04/23 11/04/23 18:59 06:59 18:59 Intake Total 415 Output Total 55 40 Balance 360 -40 Weight 96.7 kg 96.7 kg Intake: IV 215 Normal Saline @ KVO 115 Piperacillin-Tazobactam 3 100 .375 gm In Sodium Chloride 0.9% 100 ml @ 25 mls/hr IVPB Q8H [facility] Rx#: [id number] Oral 200 Output: Urine 55 40 Other: Voiding Method Indwelling Catheter Indwelling Catheter # Bowel Movements 1 ABP, PAP, CO, CI - Last Documented Arterial Blood Pressure 101/67 - Labs CBC & Chem 7: 11/04/23 04:44 11/04/23 04:44 Labs: Abnormal Lab Results - Last 24 Hours (Table) 11/03/23 11/03/23 11/04/23 Range/Units 16:26 20:10 04:44 WBC 3.3 L (3.8-10.6) k/uL RBC 2.28 L (4.30-5.90) m/uL Hgb 7.8 L (13.0-17.5) gm/dL Hct 23.5 L (39.0-53.0) % MCV 103.3 H (80.0-100.0) fL RDW 19.1 H (11.5-15.5) % Plt Count 47 L (150-450) k/uL Sodium (137-145) mmol/L Potassium (3.5-5.1) mmol/L BUN (9-20) mg/dL Creatinine (0.66-1.25) mg/dL Glucose (74-99) mg/dL POC Glucose (mg/dL) 136 H 207 H (70-110) mg/dL Calcium (8.4-10.2) mg/dL 11/04/23 11/04/23 Range/Units 04:44 11:36 WBC (3.8-10.6) k/uL RBC (4.30-5.90) m/uL Hgb (13.0-17.5) gm/dL Hct (39.0-53.0) % MCV (80.0-100.0) fL RDW (11.5-15.5) % Plt Count (150-450) k/uL Sodium 131 L (137-145) mmol/L Potassium 3.4 L (3.5-5.1) mmol/L BUN 34 H (9-20) mg/dL Creatinine 2.37 H (0.66-1.25) mg/dL Glucose 122 H (74-99) mg/dL POC Glucose (mg/dL) 157 H (70-110) mg/dL Calcium 7.3 L (8.4-10.2) mg/dL
[2023-11-04 16:47] LABS: Glucose,Whole Blood 127 mg/dL (70-110)
[2023-11-04 21:12] LABS: Glucose,Whole Blood 189 mg/dL (70-110)
[2023-11-05 04:12] LABS: Anisocytosis Slight; HCT 23.1 % (39.0-53.0); HGB 7.7 gm/dL (13.0-17.5); Hypochromasia Slight; MCH 34.6 pg (25.0-35.0); MCHC 33.2 g/dL (31.0-37.0); MCV 104.4 fL (80.0-100.0); Macrocytosis Marked; Mean Platelet Volume 10.6; RBC 2.21 m/uL (4.30-5.90); RDW 18.9 % (11.5-15.5); WBC 3.2 k/uL (3.8-10.6)
[2023-11-05 04:16] LABS: Platelet Count 51 k/uL (150-450)
[2023-11-05 04:25] LABS: African American GFR (CKD) 40 (>60 ml/min/1.73 sqM); Anion Gap 5 mmol/L; Blood Urea Nitrogen 23 mg/dL (9-20); Calcium 7.2 mg/dL (8.4-10.2); Carbon Dioxide 25 mmol/L (22-30); Chloride 102 mmol/L (98-107); Glucose 128 mg/dL (74-99); Non-African American GFR(CKD) 34 (>60 ml/min/1.73 sqM); Phosphorus 3.7 mg/dL (2.5-4.5); Potassium 3.3 mmol/L (3.5-5.1); Sodium 132 mmol/L (137-145)
[2023-11-05] MEDS: POTASSIUM CHLORIDE 10 MEQ in WATER FOR INJECTION 1 100ML.BAG IVPB ONE (05:27)
[2023-11-05] MEDS: POTASSIUM CHLORIDE ER 20 MEQ TAB.ER PO SCH (06:33)
[2023-11-05 06:43] LABS: Glucose,Whole Blood 104 mg/dL (70-110)
--- NOTE | 2023-11-05 09:21 | P.PN ---
Subjective Progress Note Date: 11/05/23 Principal diagnosis: Decompensated cirrhosis of the liver This is a a 63-year-old male with known alcoholic apparently patient also continues to drink 1-2 drinks weekly liver disease requiring weekly paracentesis, recent acute kidney injury, adrenal insufficiency, diabetes, COPD, and coronary artery disease who presented to the ER via EMS after being found unresponsive at home. Who was initially seen on 10/21/2023 note is currently presumptive positive for the virus consult was performed in conversation with the patient using the telephone, they consented to consult conversation with her 10:07 AM until 10:15 AM, 8 minutes in duration. The physical exam will be deferred to the primary team.. HPI is obtained from chart. On arrival he was hypothermic and hypoglycemic with a blood sugar of 47 despite treatment by EMS. Initial labs in the ER included CBC, coags, CMP, TSH, troponin, BNP, and ABG which were remarkable for hemoglobin 10, platelet count 79, pH 7.2, bicarb 18, sodium 132, potassium 5.3, BUN 87, creatinine 3.54 up from 2.15 most recently, magnesium 2.5, BNP 6340, and TSH of 5.680. Initial chest x-ray shows significant right-sided pleural effusion with increased pulmonary vascular congestion. In the ER he was started on D5 half normal due to his persistent hypoglycemia, these were warmed fluids to help with his hypothermia. Patient became more and more dyspneic. He ultimately required vasopressors due to prolonged hypotension, and intubation due to worsening respiratory distress from IV fluids. He was started on propofol and norepinephrine. Critical care was consulted and he was admitted to the ICU. Patient is currently admitted to the ICU he is sedated and on mechanical ventilation. Apparently prior to the patient coming into the emergency department he was watching the [employer] game and around midnight he wanted a snack however did not he did then around 1 AM was found on the floor next to his recliner. EMS was called and he was brought into the emergency department. He was recently hospitalized and discharged to [facility] which he was then discharged from there about 8 days ago. Apparently patient has been drinking 1- 2 drinks weekly but has a significant history of heavy alcohol use in the past. 10/22/2023 Patient seen and examined as a follow-up today in the ICU. He remains sedated and intubated. Patient noted to have acute kidney injury and was started on hemodialysis. Currently undergoing hemodialysis at this time. Today's labs WBC 5.2 hemoglobin 9.9 hematocrit 31 platelet count 98,000 sodium 132 potassium 5.5 BUN 74 creatinine 3.1 glucose 245 calcium 7.4 phosphorus 9.0 total bilirubin 0.6 AST 29 ALT 27 alkaline phosphatase 113 10/23/2023 Patient seen and examined as a follow-up in the ICU. He remains sedated and intubated on mechanical ventilation. Patient has increased abdominal distention. He has OG tube in place. Underwent dialysis yesterday. No reported bowel movement according to his nurse. However ammonia level improving and latest is 11. Final sputum culture with Pseudomonas aeruginosa. Primary team has ordered ultrasound for paracentesis. Fluid studies and culture ordered. He is currently on octreotide. He was switched from Rocephin to Zosyn. He remains afebrile 10/24/2023 Patient seen and examined as a follow-up. He remains in the ICU intubated on mechanical ventilation. Good urine output. He is scheduled for dialysis as well as paracentesis today. He still has not had any bowel movement despite being given his lactulose. He was started on Reglan. Ammonia level has been normal. WBC 4.7 hemoglobin 9.7 platelet count 56,000 sodium 131 potassium 4.7 BUN 55 creatinine 2.7 total bilirubin 0.6 AST 20 ALT 22 alkaline phosphatase 102 ammonia less than 9. He is on IV Lasix, remains on midodrine scheduled to get 25 g IV albumin pre and post paracentesis. Tube feedings are being decreased due to high residuals. 10/25/2023 Patient is seen and examined as a follow-up. He remains in the ICU intubated at sedated and on mechanical ventilation. Tube feedings were resumed without any residual. He still has not had any bowel movements. He had a paracentesis yesterday with 6.2 L removed. 11/04/2023 Patient seen and examined today as a follow-up. We were initially consulted on 10/21/2023 for history of alcoholic cirrhosis of the liver. During which time patient was admitted to the hospital and the ICU and was sedated and intubated. He remains in the ICU. He has been extubated. Yesterday he was weaned from pressors. Today he states overall he just does not feel well. He is coughing. He had abdominal ultrasound that shows moderate amount of ascites. Patient is scheduled to undergo paracentesis however platelet count was 47,000 today. 11/05/2023 Patient seen and examined in the ICU as a follow-up. He is resting comfortably. No acute changes through the night. He remains off vasopressors. Received dialysis yesterday. Making small amounts of urine. Scheduled for paracentesis today. Today's labs WBC 3.2 hemoglobin 7.7 platelet count 51,000 sodium 132 potassium 3.3 BUN 23 creatinine 2.03 Objective - Vital Signs Vital signs: Vital Signs Temp 98.4 F 11/05/23 00:00 Pulse 77 11/05/23 00:00 Resp 22 11/05/23 00:00 BP 96/79 11/05/23 00:00 Pulse Ox 96 11/05/23 00:00 FiO2 50 10/26/23 16:00 Intake & Output 11/04/23 11/05/23 11/05/23 18:59 06:59 18:59 Intake Total 640 100 Balance 640 100 Weight 96.7 kg 94.5 kg Intake: IV 100 Potassium Chloride 10 meq 100 In Water For Injection 1 100ml.bag @ 100 mls/hr IVPB ONCE ONE Rx#: [id number] Oral 240 Hemodialysis 400 Other: # Voids 1 # Bowel Movements 1 ABP, PAP, CO, CI - Last Documented Arterial Blood Pressure 101/67 - Exam General appearance: The patient is alert and oriented. HET: Head is normocephalic and atraumatic. Conjunctiva pink. Sclera anicteric. Neck: Supple without lymphadenopathy. Abdomen: Distended. No guarding or rigidity. Extremities: Normal skin color and turgor. Bilateral lower extremity edema. Skin: No rashes, no jaundice Neurological: Alert and oriented. No apparent focal deficits. - Labs CBC & Chem 7: 11/05/23 03:51 11/05/23 03:51 Labs: Abnormal Lab Results - Last 24 Hours (Table) 11/04/23 11/04/23 11/04/23 Range/Units 11:36 16:44 21:10 WBC (3.8-10.6) k/uL RBC (4.30-5.90) m/uL Hgb (13.0-17.5) gm/dL Hct (39.0-53.0) % MCV (80.0-100.0) fL RDW (11.5-15.5) % Plt Count (150-450) k/uL Macrocytosis Sodium (137-145) mmol/L Potassium (3.5-5.1) mmol/L BUN (9-20) mg/dL Creatinine (0.66-1.25) mg/dL Glucose (74-99) mg/dL POC Glucose (mg/dL) 157 H 127 H 189 H (70-110) mg/dL Calcium (8.4-10.2) mg/dL 11/05/23 11/05/23 Range/Units 03:51 03:51 WBC 3.2 L (3.8-10.6) k/uL RBC 2.21 L (4.30-5.90) m/uL Hgb 7.7 L (13.0-17.5) gm/dL Hct 23.1 L (39.0-53.0) % MCV 104.4 H (80.0-100.0) fL RDW 18.9 H (11.5-15.5) % Plt Count 51 L (150-450) k/uL Macrocytosis Marked A Sodium 132 L (137-145) mmol/L Potassium 3.3 L (3.5-5.1) mmol/L BUN 23 H (9-20) mg/dL Creatinine 2.03 H (0.66-1.25) mg/dL Glucose 128 H (74-99) mg/dL POC Glucose (mg/dL) (70-110) mg/dL Calcium 7.2 L (8.4-10.2) mg/dL Assessment and Plan (1) Alcoholic liver disease Narrative/Plan: 63-year-old male with known alcoholic liver disease underlying cirrhosis from the above. Was found nonresponsive and hypoglycemic. He was brought into the emergency department was hypotensive requiring pressors and then became hypoxic requiring intubation. Also patient gets weekly paracentesis last documented paracentesis 10/15/2023 4 to 4.8 L of fluid removed. Patient was also recently transfer to an outside facility for suspected GI bleed. Patient reportedly continues to drink 1-2 drinks weekly. Continue supportive care at this time we will hold off on any paracentesis due to hypotension and pressor support. Will defer diuretics to nephrology. Patient was extubated and pressors have been discontinued. Abdominal ultrasound reveals moderate amount of fluid. Primary medical team has ordered repeat paracentesis. Platelets 47,000, patient will need platelet transfusion prior to paracentesis. Patient would also require albumin during and after paracentesis Current Visit: Yes Status: Acute Code(s): K70.9 - ALCOHOLIC LIVER DISEASE, UNSPECIFIED SNOMED Code(s): 93144875 (2) Hypotension Current Visit: Yes Status: Acute Code(s): I95.9 - HYPOTENSION, UNSPECIFIED SNOMED Code(s): 25916062 (3) Thrombocytopenia Current Visit: Yes Status: Acute Code(s): D69.6 - THROMBOCYTOPENIA, UNSPECIFIED SNOMED Code(s): 605020953 (4) Ascites Current Visit: Yes Status: Acute Code(s): R18.8 - OTHER ASCITES SNOMED Code(s): 136920885 (5) History of alcohol abuse Current Visit: No Status: Acute Code(s): F10.11 - ALCOHOL ABUSE, IN REMISSION SNOMED Code(s): 860967870 (6) Hypoglycemia Current Visit: No Status: Acute Code(s): E16.2 - HYPOGLYCEMIA, UNSPECIFIED SNOMED Code(s): 440491141 (7) Hyponatremia Current Visit: No Status: Acute Code(s): E87.1 - HYPO-OSMOLALITY AND HYPONATREMIA SNOMED Code(s): 51701211 (8) Hypoxia Narrative/Plan: Resolved Current Visit: No Status: Acute Code(s): R09.02 - HYPOXEMIA SNOMED Code(s): 727902321 (9) SAHARA (acute kidney injury) Narrative/Plan: Nephrology following Current Visit: Yes Status: Acute Priority: High Code(s): N17.9 - ACUTE KIDNEY FAILURE, UNSPECIFIED SNOMED Code(s): 81764148 Plan: 1. Continue symptomatic and supportive care 2. Diuretics per recommendations from nephrology 3. Paracentesis ordered planning for today 4. Recommend albumin during and post paracentesis 5. Recommend outpatient follow-up with gastroenterology 6. Recommend PT and OT 7. Rest of medical management per primary medical team and foxing closer Thank you for this consultation, we will continue to follow. Dr. Tessy Lynch I agree with the dictator's note, documented as a scribe by Светлана Rubin.
--- NOTE | 2023-11-05 10:42 | P.PN ---
Subjective Patient is seen in follow-up for acute kidney injury. Started on hemodialysis October 21, 2023. Oliguric. Intubated. Potassium replaced this morning. No problems with dialysis yesterday. Remains off vasopressors. Underwent paracentesis October 24, 2023 with about 6 L drained. Vital signs are stable. Off vasopressor support. General: Resting in bed. HEENT: On room air. LUNGS: Scattered rhonchi. HEART: Rate and Rhythm are regular. ABDOMEN: Distention noted. EXTREMITITES: 2+ edema. Objective - Vital Signs Vital signs: Vital Signs Temp 98.4 F 11/05/23 00:00 Pulse 77 11/05/23 00:00 Resp 22 11/05/23 00:00 BP 96/79 11/05/23 00:00 Pulse Ox 96 11/05/23 00:00 FiO2 50 10/26/23 16:00 Intake & Output 11/04/23 11/05/23 11/05/23 18:59 06:59 18:59 Intake Total 640 100 Balance 640 100 Weight 96.7 kg 94.5 kg Intake: IV 100 Potassium Chloride 10 meq 100 In Water For Injection 1 100ml.bag @ 100 mls/hr IVPB ONCE ONE Rx#: [id number] Oral 240 Hemodialysis 400 Other: # Voids 1 # Bowel Movements 1 ABP, PAP, CO, CI - Last Documented Arterial Blood Pressure 101/67 - Labs CBC & Chem 7: 11/05/23 03:51 11/05/23 03:51 Labs: Abnormal Lab Results - Last 24 Hours (Table) 11/04/23 11/04/23 11/04/23 Range/Units 11:36 16:44 21:10 WBC (3.8-10.6) k/uL RBC (4.30-5.90) m/uL Hgb (13.0-17.5) gm/dL Hct (39.0-53.0) % MCV (80.0-100.0) fL RDW (11.5-15.5) % Plt Count (150-450) k/uL Macrocytosis Sodium (137-145) mmol/L Potassium (3.5-5.1) mmol/L BUN (9-20) mg/dL Creatinine (0.66-1.25) mg/dL Glucose (74-99) mg/dL POC Glucose (mg/dL) 157 H 127 H 189 H (70-110) mg/dL Calcium (8.4-10.2) mg/dL 11/05/23 11/05/23 Range/Units 03:51 03:51 WBC 3.2 L (3.8-10.6) k/uL RBC 2.21 L (4.30-5.90) m/uL Hgb 7.7 L (13.0-17.5) gm/dL Hct 23.1 L (39.0-53.0) % MCV 104.4 H (80.0-100.0) fL RDW 18.9 H (11.5-15.5) % Plt Count 51 L (150-450) k/uL Macrocytosis Marked A Sodium 132 L (137-145) mmol/L Potassium 3.3 L (3.5-5.1) mmol/L BUN 23 H (9-20) mg/dL Creatinine 2.03 H (0.66-1.25) mg/dL Glucose 128 H (74-99) mg/dL POC Glucose (mg/dL) (70-110) mg/dL Calcium 7.2 L (8.4-10.2) mg/dL Assessment and Plan Plan: Assessment: 1. Acute kidney injury secondary to ATN secondary to septic shock. Creatinine 3.54 on admission. Creatinine as low as 1.02 dated 10/01/23. Started on hemodialysis October 21, 2023 due to volume overload and hyperkalemia. Oliguric. No hydronephrosis noted on ultrasound. 2. Septic shock. Concern for pneumonia. On IV antibiotics. Off Levophed. 3. Metabolic acidosis secondary to acute kidney injury. Improved postdialysis. 4. Hypervolemic hyponatremia. Improved. 5. Volume overload. Improved with ultrafiltration. 6. Alcohol induced liver cirrhosis. Patient noted to be pancytopenic. GI following. 7. Acute hypoxic respiratory failure. 8. Diabetes mellitus. 9. Chronic diastolic CHF with moderate mitral regurgitation. 10. History of adrenal insufficiency. On Cortef. 11. Hyperphosphatemia secondary to acute kidney injury. On PhosLo. Phosphorus level 3.7 dated November 05, 2023. Plan: Hemodialysis tomorrow. Maintain torsemide. Maintain midodrine. Status post paracentesis October 24, 2023 with 6.1 L drained. Avoid nephrotoxins. Continue to monitor renal function and urine output. Encouraged oral intake. May need another paracentesis. Patient will receive IV albumin pre and postprocedure. Potassium replaced.
[2023-11-05] MEDS: ALBUMIN HUMAN 25% 50 ML in EMPTY BAG 1 BAG IVPB SCH (12:41)
--- NOTE | 2023-11-05 12:42 | P.PN ---
Subjective Progress Note Date: 11/05/23 Principal diagnosis: Acute hypoxic respiratory failure and hypotension, multifactorial 10/28/2023, the patient is being seen for a follow-up. 63-year-old male patient with acute respiratory failure related to an underlying aspiration pneumonia with known history of alcoholic liver disease/cirrhosis and liver failure. The patient was extubated on 10/26/2023. Patient is known to have COPD and he grew also Pseudomonas aeruginosa in the sputum. The patient also has chronic liver, chronic kidney disease with an acute kidney injury attributed to ATN knowing that the patient's baseline creatinine 10/01/2023 was 1.02. He was started on hemodialysis on 10/21/2023 due to volume overload and hyperkalemia as the patient was having oliguria. The patient has no significant hydronephrosis., coronary disease, diabetes mellitus, hypothyroidism and history of chronic alcoholism. The patient is currently on 4 weeks of oxygen by nasal cannula. The most recent chest x-ray from 10/27/2023 showed improvement in the left-sided pleural effusion, small lung volumes and bibasilar opacities probably due to atelectasis. Noted the patient also has Pseudomonas in the sputum and the patient is currently on IV Zosyn. Patient remains on pressors and norepinephrine is running at 0.02 mcg/kg/min. Adrenal insufficiency was also suspected and the patient was placed on stress dose hydrocortisone 50 mg every 8 hours. The patient is also on Lasix 80 mg IV daily and Sandostatin 50 mcg every 8 hours subcu and midodrine 10 mg p.o. 3 times daily. Transfer diabetes mellitus, the patient remains on Levemir insulin 15 units in addition to sliding scale coverage. Patient received lactulose 30 g twice a day. The ultrasound-guided paracentesis was done on 2 10/25/2023 and the patient had a total of 6.2 L of ascitic fluid removed. Most recent echocardiogram was done on 07/05/2024 indicating preserved LV function with moderate degree of mitral regurgitation. The blood cultures during this current admission has been negative. I suspect fluid cultures were also negative. Note that the cell count of the sleep note was low at 7 and there is no clinical indication of SBP. Patient continues to have a soft blood pressure. He was taken off the norepinephrine and earlier this morning, the nursing staff had to put her back for blood pressure drop as his systolic blood pressure dropped and the map was at 56. Currently is on norepinephrine at 0.01 mcg/kg/m he is on 4 L of oxygen by nasal cannula. Swallow evaluation is being repeated to evaluate his swallow and give him his oral medication if possible. Awake and alert and communicating. His white cycles of 4.7 with a hemoglobin of 9.4 and a platelet count of 78. BUN is 43 with a creatinine of 2.64 and a sodium level is at 136 and a potassium level is at 4.4. Urine output is in the order of 2 80 mL over the past 24 hours. Obviously oliguric and the findings on the case and the patient is going to undergo hemodialysis session today. He had the patient's chest x-ray from today shows some atelectatic change in lung bases. No other significant abnormalities noted. His last paracentesis was done on 10/25/2023 and a total of 6.2 L of ascitic fluid was removed. On today's evaluation of 11/02/2023, the patient is being seen for a follow-up. The patient is doing well and the patient is awake. The permacath was inserted in his left IJ. The patient was also given a swallow evaluation in the Dobbhoff was removed as the patient was able to pass the swallow evaluation. The patient is currently taking oral food. He remains on low-dose norepinephrine at 0.02 mcg/kg/min. The patient underwent hemodialysis yesterday. Total amount of ultrafiltration was in the order of 500 cc. Continues to have some ascites and some increased lower extremity edema. The white cell count at 6.9 with a hemoglobin of 9.1. Platelet count is at 66. BUN is at 35 with a creatinine of 2.1 and a sodium levels of 135. The patient was found to have Pseudomonas in the sputum. The patient remains on IV Zosyn. This was started initially on 10/30/2023 and the patient is going to complete a 7-day course. The chest x-ray close post line insertion showed no acute abnormalities. No evidence of any pneumothorax the catheter is a good location. Some limited atelectatic changes were seen at lung bases bilaterally. Otherwise, the patient is awake and alert and communicating. No other significant events over the past 24 hours. 11/03/2023, the patient is being seen for a follow-up. Doing very well currently on room air oxygen and the patient is taking oral intake and cough catheter has been removed. He is also off pressors and norepinephrine were discontinued yesterday at around 4 PM. He underwent hemodialysis yesterday. Doing well. No specific complaints. Volume status is improving and the patient is currently producing minimal amount of urine output in the order of less than 5 cc on an hourly basis. Remains on IV Zosyn.Labs from today shows a white cell count of 2.5, hemoglobin of 7.7 and a platelet count of 40. Sodium is at 132 with a BUN of 28 and a creatinine of 1.85. Potassium level is at 3.7. Patient was reevaluated today on 11/04/2023, patient was seen on follow-up, remains in the ICU, patient is now off all pressors, volume status is improving, remains on Zosyn, remains on maintenance dose of Solu-Cortef/hydrocortisone, remains on Zosyn for his Pseudomonas tracheobronchitis/bronchopneumonia. Has been on this since 10/30. Patient continues to have stigmata of chronic liver disease. His last paracentesis was done on and he had 6.2 L of ascitic fluid removed. Patient has gone periodic dialysis, and he has a dialysis catheter in place. Labs today WBC 3.3 hemoglobin 7.8. Basic metabolic profile is normal BUN is 34 creatinine 2.37, abdominal ultrasound today showed moderate abdominal ascites may have to consider another paracentesis on this patient in the next 24 hours. Reevaluated today on 11/05/23, patient remains in the ICU, he is on room air, scheduled to undergo another paracentesis today. Patient is relatively asymptomatic, denies any shortness of breath no cough, no chest pain, no abdominal pain. Patient had his hemodialysis yesterday. And feeling great. The plan is to consider transferring the patient back to medical floor after his paracentesis is assuming his blood pressure holds and does not develop any hypotension. Consider giving the patient albumin if he does drop blood pressure post paracentesis. WBC count today 3.2 hemoglobin 7.7 basic metabolic profile is relatively normal potassium is a bit low at 3.3 BUN is 23 creatinine 2.03 Objective - Vital Signs Vital signs: Vital Signs Temp 98.4 F 11/05/23 00:00 Pulse 64 11/05/23 11:46 Resp 16 11/05/23 11:46 BP 97/62 11/05/23 11:46 Pulse Ox 98 11/05/23 11:46 FiO2 50 10/26/23 16:00 Intake & Output 11/04/23 11/05/23 11/05/23 18:59 06:59 18:59 Intake Total 640 100 Balance 640 100 Weight 96.7 kg 94.5 kg Intake: IV 100 Potassium Chloride 10 meq 100 In Water For Injection 1 100ml.bag @ 100 mls/hr IVPB ONCE ONE Rx#: [id number] Oral 240 Hemodialysis 400 Other: # Voids 1 # Bowel Movements 1 ABP, PAP, CO, CI - Last Documented Arterial Blood Pressure 101/67 - Exam General: The patient is awake and alert, in no distress, and does not appear acutely ill. On room air, Skin: Skin is warm and dry and no rashes or lesions are noted. Eye: Pupils are equal, round and reactive to light, extra-ocular movements are intact; there is normal conjunctiva bilaterally. Ears, nose, mouth and throat: There are moist mucous membranes and no oral lesions. Neck: The neck is supple, there is no tenderness or JVD. Left IJ permacath is noted in place. Cardiovascular: There is a regular rate and rhythm. No murmur, rub or gallop is appreciated. Respiratory: Clear bilaterally no rhonchi no wheezes Gastrointestinal: Distended abdomen, positive ascites, no rebound and no guarding Back: There is no tenderness to palpation in the midline. There is no obvious deformity. Musculoskeletal: Normal ROM, no tenderness, There is no pedal edema. There is no calf tenderness or swelling. No cords were appreciated. Neurological: CN II-XII intact, Cranial nerves III through XII are intact. There are no obvious motor or sensory deficits. Coordination appears grossly intact. Speech is normal. Psychiatric: Cooperative, appropriate mood & affect, normal judgment. - Labs CBC & Chem 7: 11/05/23 03:51 11/05/23 03:51 Labs: Abnormal Lab Results - Last 24 Hours (Table) 11/04/23 11/04/23 11/05/23 Range/Units 16:44 21:10 03:51 WBC (3.8-10.6) k/uL RBC (4.30-5.90) m/uL Hgb (13.0-17.5) gm/dL Hct (39.0-53.0) % MCV (80.0-100.0) fL RDW (11.5-15.5) % Plt Count (150-450) k/uL Macrocytosis Sodium 132 L (137-145) mmol/L Potassium 3.3 L (3.5-5.1) mmol/L BUN 23 H (9-20) mg/dL Creatinine 2.03 H (0.66-1.25) mg/dL Glucose 128 H (74-99) mg/dL POC Glucose (mg/dL) 127 H 189 H (70-110) mg/dL Calcium 7.2 L (8.4-10.2) mg/dL 11/05/23 Range/Units 03:51 WBC 3.2 L (3.8-10.6) k/uL RBC 2.21 L (4.30-5.90) m/uL Hgb 7.7 L (13.0-17.5) gm/dL Hct 23.1 L (39.0-53.0) % MCV 104.4 H (80.0-100.0) fL RDW 18.9 H (11.5-15.5) % Plt Count 51 L (150-450) k/uL Macrocytosis Marked A Sodium (137-145) mmol/L Potassium (3.5-5.1) mmol/L BUN (9-20) mg/dL Creatinine (0.66-1.25) mg/dL Glucose (74-99) mg/dL POC Glucose (mg/dL) (70-110) mg/dL Calcium (8.4-10.2) mg/dL Assessment and Plan Assessment: Impression: Acute hypoxic respiratory failure secondary to aspiration pneumonia, liver cirrhosis, and ascites secondary to liver cirrhosis. Hypotension, multifactorial secondary to adrenal insufficiency, septic shock Pseudomonas aeruginosa tracheobronchitis, possible bronchopneumonia secondary to tracheobronchitis remains on Zosyn Liver cirrhosis with ascites, status post large-volume thoracentesis on 10/25/2023 total amount removed 6.2 L, fluid was not infected and there was no evidence of SBP History of alcoholism Acute kidney injury secondary to septic shock quiring hemodialysis Underlying COPD presently stable Type 2 diabetes Underlying coronary artery disease Moderate mitral regurgitation Hypothyroidism Anemia of chronic disease Chronic thrombocytopenia recommendation: Proceed with paracentesis again today. Continue hydrocortisone 20 mg in a.m. and 10 mg in p.m. Continue to monitor blood pressure Continue hemodialysis Patient finished a full course of Zosyn since admission Continue to monitor labs including CBC and basic metabolic profile as well as liver profile Continue lactulose 30 g twice daily Continue nutritional support/patient is eating on his own and is able to swallow Likely transfer to regular medical floor after paracentesis sometime later today. Will continue to follow Time with Patient: Less than 30
[2023-11-05 13:00] LABS: Glucose,Whole Blood 107 mg/dL (70-110)
--- NOTE | 2023-11-05 14:31 | US ---
EXAMINATION TYPE: US paracentesis abd w/image DATE OF EXAM: 11/05/2023 11:35 AM CLINICAL INDICATION:Male, 63 years old with history of See IR consult for order details.; COMPARISON: 11/04/2023 ATTENDING: Dr. Bolivar Farley PROCEDURE: Informed consent was obtained. The risks of the procedure were extensively explained incl uding risk of damage to surrounding bowel with perforation and need for additional procedures. Proced ure was performed in the ultrasound procedure suite. Ultrasound imaging of the abdomen demonstrate as citic fluid. An appropriate access site was localized to the right lower abdomen. Timeout was taken p er protocol. The skin was prepped and draped in the usual sterile fashion and then locally anesthetiz ed with 1% lidocaine. The peritoneal cavity was then accessed via a 5-Yoruba one-step needle/cathete r. Approximately 3000 cc of clear straw-colored fluid was obtained. Samples were sent to the lab for analysis. Postprocedural imaging of the abdomen demonstrate a minimal amount of abdominal fluid. Patient tolerated procedure well without immediate complication. Hemostasis at the procedural site w as obtained with a sterile bandage placed. The patient was monitored in the holding area following th e procedure and was subsequently discharged in stable condition. IMPRESSION: Ultrasound guided paracentesis, with approximately 3000 cc of clear straw-colored fluid drained. Path ology results pending. No immediate complications were evident.
--- NOTE | 2023-11-05 14:45 | P.PN ---
Subjective Progress Note Date: 11/05/23 (delayed charting seen at 1035) Patient is a 63-year-old male with known liver disease requiring weekly paracentesis, recently diagnosed hepatorenal syndrome, adrenal insufficiency, diabetes, COPD, and coronary artery disease who presented to the ER via EMS after being found unresponsive at home. In the ER he underwent extensive evaluation. On arrival he was hypothermic and hypoglycemic with a blood sugar of 47 despite treatment by EMS. Initial labs in the ER included CBC, coags, CMP, TSH, troponin, BNP, and ABG which were remarkable for hemoglobin 10, platelet count 79, pH 7.2, bicarb 18, sodium 132, potassium 5.3, BUN 87, creatinine 3.54 up from 2.15 most recently, magnesium 2.5, BNP 6340, and TSH of 5.680. Initial chest x-ray as reviewed by myself shows significant right-sided pleural effusion with increased pulmonary vascular congestion. In the ER he was started on D5 half normal due to his persistent hypoglycemia, these were warmed fluids to help with his hypothermia. Patient became more and more dyspneic. He ultimately required vasopressors due to prolonged hypotension, and intubation due to worsening respiratory distress from IV fluids. He was started on propofol and norepinephrine. Critical care was consulted. Arrangements were made for admission to the ICU. He was transitioned to D10 with sodium bicarb. He was seen by nephrology and required emergent HD for hyperkalemia and acidosis. He was able to come off of vasopressors and his Solu-Cortef was weaned. He was able to come off of the bicarb drip. His hemodialysis catheter stopped functioning on 10/24 and a guidewire exchange was performed by vascular surgery. He had an ultrasound- guided paracentesis completed on 10/24/2023 with removal of 6.2 L of fluid. He was extubated on 10/26. He failed a swallow study and Dobbhoff tube was placed for enteral feedings. He continued to have minimal urine output. Cultures did come back positive for Pseudomonas pneumonia and antibiotics were streamlined to IV Zosyn he completed 12 days of therapy. Patient had permacath placed on . He was able to come off Levo on 11/02/23 and his Steroids were transitioned to back to his home adrenal insufficiency dose. Patient underwent paracentesis on 11/05 with removal of 3 L of fluid. Patient seen and examined at bedside. He is doing well today. He has no complaints currently. No pain, chest pain or shortness of breath. He does report increased abdominal distention. Vital signs reviewed General: Nontoxic, no distress, appears at stated age Cardiovascular: S1S2 reg, no murmur Lungs: Coarse breath sounds bilateral, no rhonchi, no rales, no accessory muscle use Abdominal: Soft, nontender to palpation, no guarding, + distended Ext: No gross muscle atrophy, no edema b/l lower extremities, no contractures Neuro: CN II-XI grossly intact, no focal neuro deficits Psych: Alert, oriented, appropriate affect Assessment/Plan: Decompensated cirrhosis Pseudomonas Pneumonia. s/p treatment Septic shock, resolved Pancytopenia in the setting of acute illness and liver disease-- plt count worsening -Follow CBC, no indication for transfusion at this time -Continue to hold hold home aldactone and lisinopril due to hypotension -Continue to hold remeron and xanax -Critical care note reviewed: Proceed with paracentesis. Continue current clear plan. -GI recommendations appreciated: Diuretics per nephrology, continue with supportive care, outpatient follow-up Acute kidney injury, due to ATN Chronic kidney disease stage III Hyperphosphatemia, secondary to SAHARA -Nephrology note reviewed: Hemodialysis tomorrow. Maintain furosemide and midodrine -Has been on HD since 10/21/23 - Melvin for strict I's and O's - Midodrine 10 mg 3 times daily Insulin dependent diabetes - Prolonged hypoglycemia in an insulin-dependent diabetic, resolved - Levemir to 10 units at night - A1C 7.5 - SSI q 6 hours - follow BS Adrenal insufficiency now with shock -Hydrocortisone 20 mg in the morning and 10 mg in the evening Chronic: Coronary artery disease COPD without exacerbation Anemia of chronic disease Alcoholic cirrhosis Acute hypoxic respiratory failure , resolved Acute metabolic encephalopathy, resolved Hyerpvolemia hyponatremia, resolved Hyperkalemia, resolved Meatbolic acidosis, resolved Imaging: Abdominal ultrasound: Moderate ascites Data Review: Labs reviewed from today include CBC and basic metabolic profile which are remarkable for white blood cell count 32, hemoglobin 7.7, platelets 51, sodium 132, potassium 3.3. DVT prophylaxis: SCDs Anticipated discharge date: in 24-[address]: [facility] This dictation was prepared using [employer] voice recognition software. Though every attempt is made to correct errors during dictation some may still exist. Objective - Vital Signs Vital signs: Vital Signs Temp 97.7 F 11/05/23 14:00 Pulse 70 11/05/23 14:00 Resp 18 11/05/23 14:00 BP 109/64 11/05/23 14:00 Pulse Ox 97 11/05/23 14:00 FiO2 50 10/26/23 16:00 Intake & Output 11/04/23 11/05/23 11/05/23 18:59 06:59 18:59 Intake Total 640 100 Balance 640 100 Weight 96.7 kg 94.5 kg Intake: IV 100 Potassium Chloride 10 meq 100 In Water For Injection 1 100ml.bag @ 100 mls/hr IVPB ONCE ONE Rx#: [id number] Oral 240 Hemodialysis 400 Other: # Voids 1 # Bowel Movements 1 ABP, PAP, CO, CI - Last Documented Arterial Blood Pressure 101/67 - Labs CBC & Chem 7: 11/05/23 03:51 11/05/23 03:51 Labs: Abnormal Lab Results - Last 24 Hours (Table) 11/04/23 11/04/23 11/05/23 Range/Units 16:44 21:10 03:51 WBC (3.8-10.6) k/uL RBC (4.30-5.90) m/uL Hgb (13.0-17.5) gm/dL Hct (39.0-53.0) % MCV (80.0-100.0) fL RDW (11.5-15.5) % Plt Count (150-450) k/uL Macrocytosis Sodium 132 L (137-145) mmol/L Potassium 3.3 L (3.5-5.1) mmol/L BUN 23 H (9-20) mg/dL Creatinine 2.03 H (0.66-1.25) mg/dL Glucose 128 H (74-99) mg/dL POC Glucose (mg/dL) 127 H 189 H (70-110) mg/dL Calcium 7.2 L (8.4-10.2) mg/dL 11/05/23 Range/Units 03:51 WBC 3.2 L (3.8-10.6) k/uL RBC 2.21 L (4.30-5.90) m/uL Hgb 7.7 L (13.0-17.5) gm/dL Hct 23.1 L (39.0-53.0) % MCV 104.4 H (80.0-100.0) fL RDW 18.9 H (11.5-15.5) % Plt Count 51 L (150-450) k/uL Macrocytosis Marked A Sodium (137-145) mmol/L Potassium (3.5-5.1) mmol/L BUN (9-20) mg/dL Creatinine (0.66-1.25) mg/dL Glucose (74-99) mg/dL POC Glucose (mg/dL) (70-110) mg/dL Calcium (8.4-10.2) mg/dL
[2023-11-05 16:13] LABS: Glucose,Whole Blood 205 mg/dL (70-110)
[2023-11-05] MEDS: INSULIN DETEMIR (LEVEMIR) 100 UNIT/ML SYR SQ SCH (20:20)
[2023-11-05 20:21] LABS: Glucose,Whole Blood 297 mg/dL (70-110)
[2023-11-06 06:22] LABS: Anisocytosis Slight; HCT 25.6 % (39.0-53.0); HGB 8.3 gm/dL (13.0-17.5); Hypochromasia Slight; MCH 34.5 pg (25.0-35.0); MCHC 32.5 g/dL (31.0-37.0); Mean Platelet Volume 8.9; RBC 2.42 m/uL (4.30-5.90); RDW 18.9 % (11.5-15.5); WBC 3.7 k/uL (3.8-10.6)
[2023-11-06 06:28] LABS: African American GFR (CKD) 35 (>60 ml/min/1.73 sqM); Anion Gap 6 mmol/L; Blood Urea Nitrogen 28 mg/dL (9-20); Calcium 7.5 mg/dL (8.4-10.2); Carbon Dioxide 26 mmol/L (22-30); Chloride 101 mmol/L (98-107); Glucose 107 mg/dL (74-99); Non-African American GFR(CKD) 30 (>60 ml/min/1.73 sqM); Potassium 3.6 mmol/L (3.5-5.1); Sodium 133 mmol/L (137-145)
[2023-11-06 06:31] LABS: Glucose,Whole Blood 112 mg/dL (70-110)
[2023-11-06 06:46] LABS: Macrocytosis Marked; Platelet Count 68 k/uL (150-450)
[2023-11-06] MEDS: POTASSIUM CHLORIDE ER 20 MEQ TAB.ER PO SCH (06:51)
[2023-11-06] MEDS: POTASSIUM CHLORIDE 10 MEQ in WATER FOR INJECTION 1 100ML.BAG IVPB SCH (08:50)
[2023-11-06] MEDS: POTASSIUM CHLORIDE ER 20 MEQ TAB.ER PO STA (08:50)
--- NOTE | 2023-11-06 09:36 | P.DS ---
Providers Date of admission: 10/21/23 07:07 Expected date of discharge: 11/06/23 Attending physician: Rich Ayala MD Consults: 10/21/23 07:07 Consult Physician Stat Consulting Provider: Macie Herman Consult Reason/Comments: ICU Do you want consulting provider notified?: Already Contacted 10/21/23 09:23 Consult Physician Routine Consulting Provider: Srini Medina Consult Reason/Comments: hepatorenal syndrome Do you want consulting provider notified?: Yes Consult Physician Routine Consulting Provider: Leigh Ann Lynch Consult Reason/Comments: cirrhosis Do you want consulting provider notified?: Yes 10/21/23 14:22 Consult Physician Stat Consulting Provider: Geoffrey Simons Consult Reason/Comments: HD cath Do you want consulting provider notified?: Already Contacted Primary care physician: Megan Langford DO Hospital Course: Discharge Diagnosis: Decompensated cirrhosis Pseudomonas Pneumonia. s/p treatment Septic shock, resolved Pancytopenia in the setting of acute illness and liver disease-- plt count worsening Acute hypoxic respiratory failure , resolved Acute metabolic encephalopathy, resolved Hyerpvolemia hyponatremia, resolved Hyperkalemia, resolved Meatbolic acidosis, resolved Acute kidney injury, due to ATN Chronic kidney disease stage III Hyperphosphatemia, secondary to SAHARA Insulin dependent diabetes Adrenal insufficiency now with shock Chronic: Coronary artery disease COPD without exacerbation Anemia of chronic disease Alcoholic cirrhosis Hospital Course: Patient is a 63-year-old male with known liver disease requiring weekly paracentesis, recently diagnosed hepatorenal syndrome, adrenal insufficiency, diabetes, COPD, and coronary artery disease who presented to the ER via EMS after being found unresponsive at home. In the ER he underwent extensive evaluation. On arrival he was hypothermic and hypoglycemic with a blood sugar of 47 despite treatment by EMS. Initial labs in the ER included CBC, coags, CMP, TSH, troponin, BNP, and ABG which were remarkable for hemoglobin 10, platelet count 79, pH 7.2, bicarb 18, sodium 132, potassium 5.3, BUN 87, creatinine 3.54 up from 2.15 most recently, magnesium 2.5, BNP 6340, and TSH of 5.680. Initial chest x-ray as reviewed by myself shows significant right-sided pleural effusion with increased pulmonary vascular congestion. In the ER he was started on D5 half normal due to his persistent hypoglycemia, these were warmed fluids to help with his hypothermia. Patient became more and more dyspneic. He ultimately required vasopressors due to prolonged hypotension, and intubation due to worsening respiratory distress from IV fluids. He was started on propofol and norepinephrine. Critical care was consulted. Arrangements were made for admission to the ICU. He was transitioned to D10 with sodium bicarb. He was seen by nephrology and required emergent HD for hyperkalemia and acidosis. He was able to come off of vasopressors and his Solu-Cortef was weaned. He was able to come off of the bicarb drip. His hemodialysis catheter stopped functioning on 10/24 and a guidewire exchange was performed by vascular surgery. He had an ultrasound- guided paracentesis completed on 10/24/2023 with removal of 6.2 L of fluid. He was extubated on 10/26. He failed a swallow study and Dobbhoff tube was placed for enteral feedings. He continued to have minimal urine output. Cultures did come back positive for Pseudomonas pneumonia and antibiotics were streamlined to IV Zosyn he completed 12 days of therapy. Patient had permacath placed on . He was able to come off Levo on 11/02/23 and his Steroids were transitioned to back to his home adrenal insufficiency dose. Patient underwent paracentesis on 11/05 with removal of 3 L of fluid. Well. He was determined stable for discharge to rehab. Follow-up: Nephrology with hemodialysis, Dr. Lynch in 2 to 4 weeks, primary care physician on discharge from rehab. Will need to monitor patient closely for signs of recurrent ascites as he has not required multiple paracentesis prior to this hospital admission. Patient seen and examined at bedside. He is doing well. No complaints currently. Vital signs reviewed and stable. General: Nontoxic, no distress, appears at stated age, permacath in place Cardiovascular: S1S2 reg, no murmur, positive posterior tibial pulse bilateral, Lungs: CTA bilateral, no rhonchi, no rales, no accessory muscle use Abdominal: Soft, nontender to palpation, no guarding, no appreciable organomegaly Ext: No gross muscle atrophy, no edema b/l lower extremities, no contractures Neuro: CN II-XI grossly intact, no focal neuro deficits Psych: Alert, oriented, appropriate affect A total of 37 minutes of time were spent preparing this complex discharge summary. Patient was discharged on 11/06/23. This dictation was prepared using [employer] voice recognition software. Though every attempt is made to correct errors during dictation some may still exist. Patient Condition at Discharge: Stable Plan - Discharge Summary Discharge Rx Participant: Yes New Discharge Prescriptions: New INSULIN ASPART (NovoLOG) [NovoLOG (formulary)] 0 unit SQ ACHS each Torsemide [Demadex] 40 mg PO DAILY tab Insulin Detemir (Levemir) [Levemir] 10 unit SQ HS each Calcium Acetate [PhosLo] 667 mg PO BID-W/MEALS tab Midodrine [ProAmatine] 10 mg PO Q6HR tab Levothyroxine Sodium [Synthroid] 100 mcg PO DAILY@0630 tab Continue Hydrocortisone [Cortef] 10 mg PO HS tab Lactulose 10 gm PO DAILY Atorvastatin [Lipitor] 20 mg PO HS Hydrocortisone [Cortef] 20 mg PO DAILY tab Pantoprazole [Protonix] 40 mg PO DAILY Albuterol Sulfate [Albuterol Sulfate Hfa] 2 puff PO RT-Q4H PRN PRN Reason: Shortness Of Breath HYDROcodone/APAP 7.5-325MG [[place] 7.5-325] 1 tab PO Q6HR PRN 3 Days #12 tab PRN Reason: pain Discontinued Insulin Lispro [humaLOG Kwikpen] See Protocol SQ ACHS Furosemide [Lasix] 20 mg PO BID Potassium Chloride [Klor-Con M10] 10 meq PO BID ALPRAZolam [Xanax] 0.25 mg PO Q6H PRN PRN Reason: Anxiety Folic Acid 1 mg PO DAILY tab Midodrine HCl [ProAmatine] 10 mg PO TID@0700,1300,1900 Insulin Glargine,Hum.rec.anlog [Lantus Solostar Pen] 20 units SQ HS Spironolactone [Aldactone] 50 mg PO DAILY lisinopriL [Zestril] 5 mg PO DAILY Mirtazapine [Remeron] 30 mg PO HS Discharge Medication List Hydrocortisone [Cortef] 10 mg PO HS tab 07/24/23 [Rx] Hydrocortisone [Cortef] 20 mg PO DAILY tab 07/24/23 [Rx] Lactulose 10 gm PO DAILY 10/07/23 [History] Pantoprazole [Protonix] 40 mg PO DAILY 10/07/23 [History] Albuterol Sulfate [Albuterol Sulfate Hfa] 2 puff PO RT-Q4H PRN 10/21/23 [History] Atorvastatin [Lipitor] 20 mg PO HS 10/21/23 [History] Calcium Acetate [PhosLo] 667 mg PO BID-W/MEALS tab 11/06/23 [Rx] HYDROcodone/APAP 7.5-325MG [[place] 7.5-325] 1 tab PO Q6HR PRN 3 Days #12 tab 11/06/23 [Rx] INSULIN ASPART (NovoLOG) [NovoLOG (formulary)] 0 unit SQ ACHS each 11/06/23 [Rx] Insulin Detemir (Levemir) [Levemir] 10 unit SQ HS each 11/06/23 [Rx] Levothyroxine Sodium [Synthroid] 100 mcg PO DAILY@0630 tab 11/06/23 [Rx] Midodrine [ProAmatine] 10 mg PO Q6HR tab 11/06/23 [Rx] Torsemide [Demadex] 40 mg PO DAILY tab 11/06/23 [Rx] Follow up Appointment(s)/Referral(s): Megan Langford DO [Primary Care Provider] - 1-2 days Miladis Pfeiffer MD [STAFF PHYSICIAN] - 1 Week Leigh Ann Lynch MD [STAFF PHYSICIAN] - 4 Weeks Activity/Diet/Wound Care/Special Instructions: Activity: As tolerated, fall precautions Diet: Heart healthy, consistent carb, renal diet Special Instructions: HgB on discharge is 8.5. Dr. Lynch in 2 to 4 weeks, primary care physician on discharge from rehab. Will need to monitor patient closely for signs of recurrent ascites as he has not required multiple paracentesis prior to this hospital admission. Discharge Disposition: TRANSFER TO SNF/ECF
[2023-11-06 11:23] LABS: Glucose,Whole Blood 99 mg/dL (70-110)
--- NOTE | 2023-11-06 11:32 | P.PN ---
Subjective Progress Note Date: 11/06/23 Principal diagnosis: Decompensated cirrhosis of the liver This is a a 63-year-old male with known alcoholic apparently patient also continues to drink 1-2 drinks weekly liver disease requiring weekly paracentesis, recent acute kidney injury, adrenal insufficiency, diabetes, COPD, and coronary artery disease who presented to the ER via EMS after being found unresponsive at home. Who was initially seen on 10/21/2023 note is currently presumptive positive for the virus consult was performed in conversation with the patient using the telephone, they consented to consult conversation with her 10:07 AM until 10:15 AM, 8 minutes in duration. The physical exam will be deferred to the primary team.. HPI is obtained from chart. On arrival he was hypothermic and hypoglycemic with a blood sugar of 47 despite treatment by EMS. Initial labs in the ER included CBC, coags, CMP, TSH, troponin, BNP, and ABG which were remarkable for hemoglobin 10, platelet count 79, pH 7.2, bicarb 18, sodium 132, potassium 5.3, BUN 87, creatinine 3.54 up from 2.15 most recently, magnesium 2.5, BNP 6340, and TSH of 5.680. Initial chest x-ray shows significant right-sided pleural effusion with increased pulmonary vascular congestion. In the ER he was started on D5 half normal due to his persistent hypoglycemia, these were warmed fluids to help with his hypothermia. Patient became more and more dyspneic. He ultimately required vasopressors due to prolonged hypotension, and intubation due to worsening respiratory distress from IV fluids. He was started on propofol and norepinephrine. Critical care was consulted and he was admitted to the ICU. Patient is currently admitted to the ICU he is sedated and on mechanical ventilation. Apparently prior to the patient coming into the emergency department he was watching the [employer] game and around midnight he wanted a snack however did not he did then around 1 AM was found on the floor next to his recliner. EMS was called and he was brought into the emergency department. He was recently hospitalized and discharged to [facility] which he was then discharged from there about 8 days ago. Apparently patient has been drinking 1- 2 drinks weekly but has a significant history of heavy alcohol use in the past. 10/22/2023 Patient seen and examined as a follow-up today in the ICU. He remains sedated and intubated. Patient noted to have acute kidney injury and was started on hemodialysis. Currently undergoing hemodialysis at this time. Today's labs WBC 5.2 hemoglobin 9.9 hematocrit 31 platelet count 98,000 sodium 132 potassium 5.5 BUN 74 creatinine 3.1 glucose 245 calcium 7.4 phosphorus 9.0 total bilirubin 0.6 AST 29 ALT 27 alkaline phosphatase 113 10/23/2023 Patient seen and examined as a follow-up in the ICU. He remains sedated and intubated on mechanical ventilation. Patient has increased abdominal distention. He has OG tube in place. Underwent dialysis yesterday. No reported bowel movement according to his nurse. However ammonia level improving and latest is 11. Final sputum culture with Pseudomonas aeruginosa. Primary team has ordered ultrasound for paracentesis. Fluid studies and culture ordered. He is currently on octreotide. He was switched from Rocephin to Zosyn. He remains afebrile 10/24/2023 Patient seen and examined as a follow-up. He remains in the ICU intubated on mechanical ventilation. Good urine output. He is scheduled for dialysis as well as paracentesis today. He still has not had any bowel movement despite being given his lactulose. He was started on Reglan. Ammonia level has been normal. WBC 4.7 hemoglobin 9.7 platelet count 56,000 sodium 131 potassium 4.7 BUN 55 creatinine 2.7 total bilirubin 0.6 AST 20 ALT 22 alkaline phosphatase 102 ammonia less than 9. He is on IV Lasix, remains on midodrine scheduled to get 25 g IV albumin pre and post paracentesis. Tube feedings are being decreased due to high residuals. 10/25/2023 Patient is seen and examined as a follow-up. He remains in the ICU intubated at sedated and on mechanical ventilation. Tube feedings were resumed without any residual. He still has not had any bowel movements. He had a paracentesis yesterday with 6.2 L removed. 11/04/2023 Patient seen and examined today as a follow-up. We were initially consulted on 10/21/2023 for history of alcoholic cirrhosis of the liver. During which time patient was admitted to the hospital and the ICU and was sedated and intubated. He remains in the ICU. He has been extubated. Yesterday he was weaned from pressors. Today he states overall he just does not feel well. He is coughing. He had abdominal ultrasound that shows moderate amount of ascites. Patient is scheduled to undergo paracentesis however platelet count was 47,000 today. 11/05/2023 Patient seen and examined in the ICU as a follow-up. He is resting comfortably. No acute changes through the night. He remains off vasopressors. Received dialysis yesterday. Making small amounts of urine. Scheduled for paracentesis today. Today's labs WBC 3.2 hemoglobin 7.7 platelet count 51,000 sodium 132 potassium 3.3 BUN 23 creatinine 2.03 11/06/2023 Patient seen and examined today as a follow-up. He remains in the ICU as overflow bed. He is currently undergoing hemodialysis. Possible discharge to rehab today. Yesterday he underwent paracentesis with 3 L removed. He is without any other complaints today. Objective - Vital Signs Vital signs: Vital Signs Temp 97.5 F L 11/06/23 08:00 Pulse 90 11/06/23 08:00 Resp 19 11/06/23 08:00 BP 109/85 11/06/23 08:00 Pulse Ox 98 11/06/23 08:00 FiO2 50 10/26/23 16:00 Intake & Output 11/05/23 11/06/23 11/06/23 18:59 06:59 18:59 Output Total 40 Balance -40 Weight 89.2 kg Output: Urine 40 Other: Voiding Method Diaper Diaper # Voids 2 ABP, PAP, CO, CI - Last Documented Arterial Blood Pressure 101/67 - Exam General appearance: The patient is alert and oriented. HET: Head is normocephalic and atraumatic. Conjunctiva pink. Sclera anicteric. Neck: Supple without lymphadenopathy. Abdomen: Distended, tympanic, nontender. No guarding or rigidity. Extremities: Normal skin color and turgor. Bilateral lower extremity edema. Skin: No rashes, no jaundice Neurological: Alert and oriented. No apparent focal deficits. - Labs CBC & Chem 7: 11/06/23 05:33 11/06/23 05:33 Labs: Abnormal Lab Results - Last 24 Hours (Table) 11/05/23 11/05/23 11/06/23 Range/Units 16:11 20:19 05:33 WBC 3.7 L (3.8-10.6) k/uL RBC 2.42 L (4.30-5.90) m/uL Hgb 8.3 L (13.0-17.5) gm/dL Hct 25.6 L (39.0-53.0) % MCV 106.0 H (80.0-100.0) fL RDW 18.9 H (11.5-15.5) % Plt Count 68 L (150-450) k/uL Macrocytosis Marked A Sodium (137-145) mmol/L BUN (9-20) mg/dL Creatinine (0.66-1.25) mg/dL Glucose (74-99) mg/dL POC Glucose (mg/dL) 205 H 297 H (70-110) mg/dL Calcium (8.4-10.2) mg/dL 11/06/23 11/06/23 Range/Units 05:33 06:29 WBC (3.8-10.6) k/uL RBC (4.30-5.90) m/uL Hgb (13.0-17.5) gm/dL Hct (39.0-53.0) % MCV (80.0-100.0) fL RDW (11.5-15.5) % Plt Count (150-450) k/uL Macrocytosis Sodium 133 L (137-145) mmol/L BUN 28 H (9-20) mg/dL Creatinine 2.27 H (0.66-1.25) mg/dL Glucose 107 H (74-99) mg/dL POC Glucose (mg/dL) 112 H (70-110) mg/dL Calcium 7.5 L (8.4-10.2) mg/dL Assessment and Plan (1) Alcoholic liver disease Narrative/Plan: 63-year-old male with known alcoholic liver disease underlying cirrhosis from the above. Was found nonresponsive and hypoglycemic. He was brought into the emergency department was hypotensive requiring pressors and then became hypoxic requiring intubation. Also patient gets weekly paracentesis last documented paracentesis 10/15/2023 4 to 4.8 L of fluid removed. Patient was also recently transfer to an outside facility for suspected GI bleed. Patient reportedly continues to drink 1-2 drinks weekly. Continue supportive care at this time we will hold off on any paracentesis due to hypotension and pressor support. Will defer diuretics to nephrology. Patient was extubated and pressors have been discontinued. Abdominal ultrasound reveals moderate amount of fluid. Primary medical team has ordered repeat p aracentesis. Patient's status post repeat paracentesis with 3 L of fluid removed. Discussed with patient close outpatient follow-up with gastroenterology, likely will need future paracentesis which can be done as an outpatient. Current Visit: Yes Status: Acute Code(s): K70.9 - ALCOHOLIC LIVER DISEASE, UNSPECIFIED SNOMED Code(s): 19756421 (2) Hypotension Current Visit: Yes Status: Acute Code(s): I95.9 - HYPOTENSION, UNSPECIFIED SNOMED Code(s): 75523538 (3) Thrombocytopenia Current Visit: Yes Status: Acute Code(s): D69.6 - THROMBOCYTOPENIA, UNSPECIFIED SNOMED Code(s): 215321854 (4) Ascites Current Visit: Yes Status: Acute Code(s): R18.8 - OTHER ASCITES SNOMED Code(s): 773056364 (5) History of alcohol abuse Current Visit: No Status: Acute Code(s): F10.11 - ALCOHOL ABUSE, IN REMISSION SNOMED Code(s): 639206917 (6) Hypoglycemia Current Visit: No Status: Acute Code(s): E16.2 - HYPOGLYCEMIA, UNSPECIFIED SNOMED Code(s): 915713561 (7) Hyponatremia Current Visit: No Status: Acute Code(s): E87.1 - HYPO-OSMOLALITY AND HYPONATREMIA SNOMED Code(s): 22002536 (8) Hypoxia Narrative/Plan: Resolved Current Visit: No Status: Acute Code(s): R09.02 - HYPOXEMIA SNOMED Code(s): 548251767 (9) SAHARA (acute kidney injury) Narrative/Plan: Nephrology following Current Visit: Yes Status: Acute Priority: High Code(s): N17.9 - ACUTE KIDNEY FAILURE, UNSPECIFIED SNOMED Code(s): 85616842 Plan: 1. Continue symptomatic and supportive care 2. Diuretics per recommendations from nephrology 3. Recommend outpatient follow-up with gastroenterology 4. Recommend PT and OT 5. Continue with alcohol abstinence 6. Patient is cleared from gastroenterology for discharge. Patient will need close outpatient follow-up within 1 to 2 weeks. Thank you for this consultation, we will continue to follow. Dr. Tessy Lynch I agree with the dictator's note, documented as a scribe by Светлана Rubin.
--- NOTE | 2023-11-06 11:34 | P.PN ---
Subjective Progress Note Date: 11/06/23 Principal diagnosis: Acute hypoxic respiratory failure and hypotension, multifactorial 10/28/2023, the patient is being seen for a follow-up. 63-year-old male patient with acute respiratory failure related to an underlying aspiration pneumonia with known history of alcoholic liver disease/cirrhosis and liver failure. The patient was extubated on 10/26/2023. Patient is known to have COPD and he grew also Pseudomonas aeruginosa in the sputum. The patient also has chronic liver, chronic kidney disease with an acute kidney injury attributed to ATN knowing that the patient's baseline creatinine 10/01/2023 was 1.02. He was started on hemodialysis on 10/21/2023 due to volume overload and hyperkalemia as the patient was having oliguria. The patient has no significant hydronephrosis., coronary disease, diabetes mellitus, hypothyroidism and history of chronic alcoholism. The patient is currently on 4 weeks of oxygen by nasal cannula. The most recent chest x-ray from 10/27/2023 showed improvement in the left-sided pleural effusion, small lung volumes and bibasilar opacities probably due to atelectasis. Noted the patient also has Pseudomonas in the sputum and the patient is currently on IV Zosyn. Patient remains on pressors and norepinephrine is running at 0.02 mcg/kg/min. Adrenal insufficiency was also suspected and the patient was placed on stress dose hydrocortisone 50 mg every 8 hours. The patient is also on Lasix 80 mg IV daily and Sandostatin 50 mcg every 8 hours subcu and midodrine 10 mg p.o. 3 times daily. Transfer diabetes mellitus, the patient remains on Levemir insulin 15 units in addition to sliding scale coverage. Patient received lactulose 30 g twice a day. The ultrasound-guided paracentesis was done on 2 10/25/2023 and the patient had a total of 6.2 L of ascitic fluid removed. Most recent echocardiogram was done on 07/05/2024 indicating preserved LV function with moderate degree of mitral regurgitation. The blood cultures during this current admission has been negative. I suspect fluid cultures were also negative. Note that the cell count of the sleep note was low at 7 and there is no clinical indication of SBP. Patient continues to have a soft blood pressure. He was taken off the norepinephrine and earlier this morning, the nursing staff had to put her back for blood pressure drop as his systolic blood pressure dropped and the map was at 56. Currently is on norepinephrine at 0.01 mcg/kg/m he is on 4 L of oxygen by nasal cannula. Swallow evaluation is being repeated to evaluate his swallow and give him his oral medication if possible. Awake and alert and communicating. His white cycles of 4.7 with a hemoglobin of 9.4 and a platelet count of 78. BUN is 43 with a creatinine of 2.64 and a sodium level is at 136 and a potassium level is at 4.4. Urine output is in the order of 2 80 mL over the past 24 hours. Obviously oliguric and the findings on the case and the patient is going to undergo hemodialysis session today. He had the patient's chest x-ray from today shows some atelectatic change in lung bases. No other significant abnormalities noted. His last paracentesis was done on 10/25/2023 and a total of 6.2 L of ascitic fluid was removed. On today's evaluation of 11/02/2023, the patient is being seen for a follow-up. The patient is doing well and the patient is awake. The permacath was inserted in his left IJ. The patient was also given a swallow evaluation in the Dobbhoff was removed as the patient was able to pass the swallow evaluation. The patient is currently taking oral food. He remains on low-dose norepinephrine at 0.02 mcg/kg/min. The patient underwent hemodialysis yesterday. Total amount of ultrafiltration was in the order of 500 cc. Continues to have some ascites and some increased lower extremity edema. The white cell count at 6.9 with a hemoglobin of 9.1. Platelet count is at 66. BUN is at 35 with a creatinine of 2.1 and a sodium levels of 135. The patient was found to have Pseudomonas in the sputum. The patient remains on IV Zosyn. This was started initially on 10/30/2023 and the patient is going to complete a 7-day course. The chest x-ray close post line insertion showed no acute abnormalities. No evidence of any pneumothorax the catheter is a good location. Some limited atelectatic changes were seen at lung bases bilaterally. Otherwise, the patient is awake and alert and communicating. No other significant events over the past 24 hours. 11/03/2023, the patient is being seen for a follow-up. Doing very well currently on room air oxygen and the patient is taking oral intake and cough catheter has been removed. He is also off pressors and norepinephrine were discontinued yesterday at around 4 PM. He underwent hemodialysis yesterday. Doing well. No specific complaints. Volume status is improving and the patient is currently producing minimal amount of urine output in the order of less than 5 cc on an hourly basis. Remains on IV Zosyn.Labs from today shows a white cell count of 2.5, hemoglobin of 7.7 and a platelet count of 40. Sodium is at 132 with a BUN of 28 and a creatinine of 1.85. Potassium level is at 3.7. Patient was reevaluated today on 11/04/2023, patient was seen on follow-up, remains in the ICU, patient is now off all pressors, volume status is improving, remains on Zosyn, remains on maintenance dose of Solu-Cortef/hydrocortisone, remains on Zosyn for his Pseudomonas tracheobronchitis/bronchopneumonia. Has been on this since 10/30. Patient continues to have stigmata of chronic liver disease. His last paracentesis was done on and he had 6.2 L of ascitic fluid removed. Patient has gone periodic dialysis, and he has a dialysis catheter in place. Labs today WBC 3.3 hemoglobin 7.8. Basic metabolic profile is normal BUN is 34 creatinine 2.37, abdominal ultrasound today showed moderate abdominal ascites may have to consider another paracentesis on this patient in the next 24 hours. Reevaluated today on 11/05/23, patient remains in the ICU, he is on room air, scheduled to undergo another paracentesis today. Patient is relatively asymptomatic, denies any shortness of breath no cough, no chest pain, no abdominal pain. Patient had his hemodialysis yesterday. And feeling great. The plan is to consider transferring the patient back to medical floor after his paracentesis is assuming his blood pressure holds and does not develop any hypotension. Consider giving the patient albumin if he does drop blood pressure post paracentesis. WBC count today 3.2 hemoglobin 7.7 basic metabolic profile is relatively normal potassium is a bit low at 3.3 BUN is 23 creatinine 2.03 Patient was reevaluated today on 11/06/2023, patient is doing great, underwent uneventful thoracentesis yesterday, patient is having hemodialysis this morning, and no major issues over the last 24 hours, blood pressure remained stable. Patient is being considered for discharge to ECF today, waiting for bed availabi lity. Pulmonary nicole, I will clear the patient for discharge if there is a bed available for him today in ECF WBC is 3.7 hemoglobin 8.3 electrolytes are normal BUN is 28 creatinine 2.27 Objective - Vital Signs Vital signs: Vital Signs Temp 97.5 F L 11/06/23 08:00 Pulse 90 11/06/23 08:00 Resp 19 11/06/23 08:00 BP 109/85 11/06/23 08:00 Pulse Ox 98 11/06/23 08:00 FiO2 50 10/26/23 16:00 Intake & Output 11/05/23 11/06/23 11/06/23 18:59 06:59 18:59 Output Total 40 Balance -40 Weight 89.2 kg Output: Urine 40 Other: Voiding Method Diaper Diaper # Voids 2 ABP, PAP, CO, CI - Last Documented Arterial Blood Pressure 101/67 - Exam General: The patient is awake and alert, in no distress, looks frail and chronically ill, on room air Skin: Skin is warm and dry and no rashes or lesions are noted. Eye: Pupils are equal, round and reactive to light, extra-ocular movements are intact; there is normal conjunctiva bilaterally. Ears, nose, mouth and throat: There are moist mucous membranes and no oral lesions. Neck: The neck is supple, there is no tenderness or JVD. Left IJ permacath is noted in place. Cardiovascular: There is a regular rate and rhythm. No murmur, rub or gallop is appreciated. Respiratory: Clear bilaterally no rhonchi no wheezes Gastrointestinal: Minimal distention with ascites, no tenderness Back: There is no tenderness to palpation in the midline. There is no obvious deformity. Musculoskeletal: Normal ROM, no tenderness, There is no pedal edema. There is no calf tenderness or swelling. No cords were appreciated. Neurological: CN II-XII intact, Cranial nerves III through XII are intact. There are no obvious motor or sensory deficits. Coordination appears grossly intact. Speech is normal. Psychiatric: Cooperative, appropriate mood & affect, normal judgment. - Labs CBC & Chem 7: 11/06/23 05:33 11/06/23 05:33 Labs: Abnormal Lab Results - Last 24 Hours (Table) 11/05/23 11/05/23 11/06/23 Range/Units 16:11 20:19 05:33 WBC 3.7 L (3.8-10.6) k/uL RBC 2.42 L (4.30-5.90) m/uL Hgb 8.3 L (13.0-17.5) gm/dL Hct 25.6 L (39.0-53.0) % MCV 106.0 H (80.0-100.0) fL RDW 18.9 H (11.5-15.5) % Plt Count 68 L (150-450) k/uL Macrocytosis Marked A Sodium (137-145) mmol/L BUN (9-20) mg/dL Creatinine (0.66-1.25) mg/dL Glucose (74-99) mg/dL POC Glucose (mg/dL) 205 H 297 H (70-110) mg/dL Calcium (8.4-10.2) mg/dL 11/06/23 11/06/23 Range/Units 05:33 06:29 WBC (3.8-10.6) k/uL RBC (4.30-5.90) m/uL Hgb (13.0-17.5) gm/dL Hct (39.0-53.0) % MCV (80.0-100.0) fL RDW (11.5-15.5) % Plt Count (150-450) k/uL Macrocytosis Sodium 133 L (137-145) mmol/L BUN 28 H (9-20) mg/dL Creatinine 2.27 H (0.66-1.25) mg/dL Glucose 107 H (74-99) mg/dL POC Glucose (mg/dL) 112 H (70-110) mg/dL Calcium 7.5 L (8.4-10.2) mg/dL Assessment and Plan Assessment: Impression: Acute hypoxic respiratory failure secondary to aspiration pneumonia, liver cirrhosis, and ascites secondary to liver cirrhosis. Hypotension, multifactorial secondary to adrenal insufficiency, septic shock Pseudomonas aeruginosa tracheobronchitis, possible bronchopneumonia secondary to tracheobronchitis remains on Zosyn Liver cirrhosis with ascites, status post large-volume thoracentesis on 10/25/2023 total amount removed 6.2 L, fluid was not infected and there was no evidence of SBP History of alcoholism Acute kidney injury secondary to septic shock quiring hemodialysis Underlying COPD presently stable Type 2 diabetes Underlying coronary artery disease Moderate mitral regurgitation Hypothyroidism Anemia of chronic disease Chronic thrombocytopenia recommendation: Agree with discharge planning today Continue hydrocortisone 20 mg in a.m. and 10 mg in p.m. on outpatient basis. Continue to monitor blood pressure Continue hemodialysis No need for any antibiotics at this point. Time with Patient: Less than 30
--- NOTE | 2023-11-06 12:31 | P.PN ---
Subjective Patient is seen in follow-up for acute kidney injury. Started on hemodialysis October 21, 2023. Oliguric. Remains off vasopressors. Underwent paracentesis October 24, 2023 with about 6 L drained. And again on November 05, 2023 with 3 L drained. No active complaints. Vital signs are stable. Off vasopressor support. General: Resting in bed. HEENT: On room air. LUNGS: Scattered rhonchi. HEART: Rate and Rhythm are regular. ABDOMEN: Distention noted. EXTREMITITES: 2+ edema. Objective - Vital Signs Vital signs: Vital Signs Temp 97.5 F L 11/06/23 11:52 Pulse 89 11/06/23 11:52 Resp 16 11/06/23 11:52 BP 109/79 11/06/23 11:52 Pulse Ox 98 11/06/23 08:00 FiO2 50 10/26/23 16:00 Intake & Output 11/05/23 11/06/23 11/06/23 18:59 06:59 18:59 Intake Total 400 Output Total 40 2400 Balance - Weight 89.2 kg Intake: Hemodialysis 400 Output: Urine 40 Hemodialysis 2400 Other: Voiding Method Diaper Diaper # Voids 2 ABP, PAP, CO, CI - Last Documented Arterial Blood Pressure 101/67 - Labs CBC & Chem 7: 11/06/23 05:33 11/06/23 05:33 Labs: Abnormal Lab Results - Last 24 Hours (Table) 11/05/23 11/05/23 11/06/23 Range/Units 16:11 20:19 05:33 WBC 3.7 L (3.8-10.6) k/uL RBC 2.42 L (4.30-5.90) m/uL Hgb 8.3 L (13.0-17.5) gm/dL Hct 25.6 L (39.0-53.0) % MCV 106.0 H (80.0-100.0) fL RDW 18.9 H (11.5-15.5) % Plt Count 68 L (150-450) k/uL Macrocytosis Marked A Sodium (137-145) mmol/L BUN (9-20) mg/dL Creatinine (0.66-1.25) mg/dL Glucose (74-99) mg/dL POC Glucose (mg/dL) 205 H 297 H (70-110) mg/dL Calcium (8.4-10.2) mg/dL 11/06/23 11/06/23 Range/Units 05:33 06:29 WBC (3.8-10.6) k/uL RBC (4.30-5.90) m/uL Hgb (13.0-17.5) gm/dL Hct (39.0-53.0) % MCV (80.0-100.0) fL RDW (11.5-15.5) % Plt Count (150-450) k/uL Macrocytosis Sodium 133 L (137-145) mmol/L BUN 28 H (9-20) mg/dL Creatinine 2.27 H (0.66-1.25) mg/dL Glucose 107 H (74-99) mg/dL POC Glucose (mg/dL) 112 H (70-110) mg/dL Calcium 7.5 L (8.4-10.2) mg/dL Assessment and Plan Plan: Assessment: 1. Acute kidney injury secondary to ATN secondary to septic shock. Creatinine 3.54 on admission. Creatinine as low as 1.02 dated 10/01/23. Started on hemodialysis October 21, 2023 due to volume overload and hyperkalemia. Oliguric . No hydronephrosis noted on ultrasound. 2. Septic shock. Concern for pneumonia. On IV antibiotics. Off Levophed. 3. Metabolic acidosis secondary to acute kidney injury. Improved postdialysis. 4. Hypervolemic hyponatremia. Improved. 5. Volume overload. Improved with ultrafiltration. 6. Alcohol induced liver cirrhosis. Patient noted to be pancytopenic. GI following. Most recent paracentesis November 05, 2023 with 3 L drained. 7. Acute hypoxic respiratory failure. 8. Diabetes mellitus. 9. Chronic diastolic CHF with moderate mitral regurgitation. 10. History of adrenal insufficiency. On Cortef. 11. Hyperphosphatemia secondary to acute kidney injury. On PhosLo. Phosphorus level 3.7 dated November 05, 2023. Plan: Currently seen while undergoing hemodialysis. Currently maintained on Saturday schedule. Maintain torsemide. Maintain midodrine. Status post paracentesis October 24, 2023 with 6.1 L drained. Avoid nephrotoxins. Continue to monitor renal function and urine output. Encouraged oral intake. May need another paracentesis. Patient will receive IV albumin pre and postprocedure. Potassium replaced.
[2023-11-06 16:31] LABS: Glucose,Whole Blood 287 mg/dL (70-110)
[2023-11-06 21:08] LABS: Glucose,Whole Blood 231 mg/dL (70-110)
[2023-11-07 06:03] LABS: Glucose,Whole Blood 135 mg/dL (70-110)
--- NOTE | 2023-11-07 11:27 | P.PN ---
Subjective Patient is seen in follow-up for acute kidney injury. Started on hemodialysis October 21, 2023. Oliguric. Underwent paracentesis October 24, 2023 with about 6 L drained. And again on November 05, 2023 with 3 L drained. No active complaints. Vital signs are stable. Off vasopressor support. General: Resting in bed. HEENT: On room air. LUNGS: Scattered rhonchi. HEART: Rate and Rhythm are regular. ABDOMEN: Distention noted. EXTREMITITES: 1+ edema. Objective - Vital Signs Vital signs: Vital Signs Temp 97.3 F L 11/07/23 07:05 Pulse 77 11/07/23 08:00 Resp 17 11/07/23 08:00 BP 92/54 11/07/23 07:05 Pulse Ox 95 11/07/23 01:27 FiO2 50 10/26/23 16:00 Intake & Output 11/06/23 11/07/23 11/07/23 18:59 06:59 18:59 Intake Total 400 Output Total 2400 300 Balance -2000 -300 Intake: Hemodialysis 400 Output: Urine 300 Hemodialysis 2400 Other: Voiding Method Diaper Diaper Urinal # Voids 1 # Bowel Movements 1 1 ABP, PAP, CO, CI - Last Documented Arterial Blood Pressure 101/67 - Labs CBC & Chem 7: 11/06/23 05:33 11/06/23 05:33 Labs: Abnormal Lab Results - Last 24 Hours (Table) 11/06/23 11/06/23 11/07/23 Range/Units 16:29 21:06 05:56 POC Glucose (mg/dL) 287 H 231 H 135 H (70-110) mg/dL Assessment and Plan Plan: Assessment: 1. Acute kidney injury secondary to ATN secondary to septic shock. Creatinine 3.54 on admission. Creatinine as low as 1.02 dated 10/01/23. Started on hemodialysis October 21, 2023 due to volume overload and hyperkalemia. Oliguric. No hydronephrosis noted on ultrasound. 2. Septic shock. Concern for pneumonia. On IV antibiotics. Off Levophed. 3. Metabolic acidosis secondary to acute kidney injury. Improved postdialysis. 4. Hypervolemic hyponatremia. Improved. 5. Volume overload. Improved with ultrafiltration. 6. Alcohol induced liver cirrhosis. Patient noted to be pancytopenic. GI following. Most recent paracentesis November 05, 2023 with 3 L drained. 7. Acute hypoxic respiratory failure. 8. Diabetes mellitus. 9. Chronic diastolic CHF with moderate mitral regurgitation. 10. History of adrenal insufficiency. On Cortef. 11. Hyperphosphatemia secondary to acute kidney injury. On PhosLo. Phosphorus level 3.7 dated November 05, 2023. Plan: Hemodialysis tomorrow. Currently maintained on Saturday schedule. Maintain torsemide. Maintain midodrine. Avoid nephrotoxins. Continue to monitor renal function and urine output. Monitor for renal recovery outpatient. Encouraged oral intake.
[2023-11-07 11:55] LABS: Glucose,Whole Blood 201 mg/dL (70-110)
[2023-11-07 12:26] VITALS: BMI 25.2
--- NOTE | 2023-11-07 13:06 | P.PN ---
Subjective Progress Note Date: 11/07/23 Patient is a 63-year-old male with known liver disease requiring weekly paracentesis, recently diagnosed hepatorenal syndrome, adrenal insufficiency, diabetes, COPD, and coronary artery disease who presented to the ER via EMS after being found unresponsive at home. In the ER he underwent extensive evalua tion. On arrival he was hypothermic and hypoglycemic with a blood sugar of 47 despite treatment by EMS. Initial labs in the ER included CBC, coags, CMP, TSH, troponin, BNP, and ABG which were remarkable for hemoglobin 10, platelet count 79, pH 7.2, bicarb 18, sodium 132, potassium 5.3, BUN 87, creatinine 3.54 up from 2.15 most recently, magnesium 2.5, BNP 6340, and TSH of 5.680. Initial chest x-ray as reviewed by myself shows significant right-sided pleural effusion with increased pulmonary vascular congestion. In the ER he was started on D5 half normal due to his persistent hypoglycemia, these were warmed fluids to help with his hypothermia. Patient became more and more dyspneic. He ultimately required vasopressors due to prolonged hypotension, and intubation due to worsening respiratory distress from IV fluids. He was started on propofol and norepinephrine. Critical care was consulted. Arrangements were made for admission to the ICU. He was transitioned to D10 with sodium bicarb. He was seen by nephrology and required emergent HD for hyperkalemia and acidosis. He was able to come off of vasopressors and his Solu-Cortef was weaned. He was able to come off of the bicarb drip. His hemodialysis catheter stopped functioning on 10/24 and a guidewire exchange was performed by vascular surgery. He had an ultrasound- guided paracentesis completed on 10/24/2023 with removal of 6.2 L of fluid. He was extubated on 10/26. He failed a swallow study and Dobbhoff tube was placed f or enteral feedings. He continued to have minimal urine output. Cultures did come back positive for Pseudomonas pneumonia and antibiotics were streamlined to IV Zosyn he completed 12 days of therapy. Patient had permacath placed on . He was able to come off Levo on 11/02/23 and his Steroids were transitioned to back to his home adrenal insufficiency dose. Patient underwent paracentesis on 11/05 with removal of 3 L of fluid. He is determined stable for discharge to rehab. Patient seen and examined at bedside. No acute events overnight. Vital signs reviewed General: Nontoxic, no distress, appears at stated age Cardiovascular: S1S2 reg, no murmur Lungs: Coarse breath sounds bilateral, no rhonchi, no rales, no accessory muscle use Abdominal: Soft, nontender to palpation, no guarding, + distended Ext: No gross muscle atrophy, no edema b/l lower extremities, no contractures Neuro: CN II-XI grossly intact, no focal neuro deficits Psych: Alert, oriented, appropriate affect Assessment/Plan: Decompensated cirrhosis Pseudomonas Pneumonia. s/p treatment Septic shock, resolved Pancytopenia in the setting of acute illness and liver disease-- plt count worsening -Continue to hold hold home aldactone and lisinopril due to hypotension -Continue to hold remeron and xanax -Critical care following -GI recommended outpatient follow-up Acute kidney injury, due to ATN Chronic kidney disease stage III Hyperphosphatemia, secondary to SAHARA -Nephrology note reviewed: Hemodialysis tomorrow. Maintain furosemide and midodrine -Has been on HD since 10/21/23 - Melvin for strict I's and O's - Midodrine 10 mg 3 times daily Insulin dependent diabetes - Prolonged hypoglycemia in an insulin-dependent diabetic, resolved - Levemir to 10 units at night - A1C 7.5 - SSI q 6 hours - follow BS Adrenal insufficiency now with shock, which is resolved -Hydrocortisone 20 mg in the morning and 10 mg in the evening Chronic: Coronary artery disease COPD without exacerbation Anemia of chronic disease Alcoholic cirrhosis Acute hypoxic respiratory failure , resolved Acute metabolic encephalopathy, resolved Hyerpvolemia hyponatremia, resolved Hyperkalemia, resolved Meatbolic acidosis, resolved Imaging: Abdominal ultrasound: Moderate ascites Data Review: Blood sugars range between 1 35-2 87 DVT prophylaxis: SCDs Anticipated discharge date: Likely tomorrow Anticipated discharge place: [facility] Objective - Vital Signs Vital signs: Vital Signs Temp 97.3 F L 11/07/23 07:05 Pulse 78 11/07/23 11:52 Resp 17 11/07/23 08:00 BP 101/68 11/07/23 11:52 Pulse Ox 95 11/07/23 01:27 FiO2 50 10/26/23 16:00 Intake & Output 11/06/23 11/07/23 11/07/23 18:59 06:59 18:59 Intake Total 400 Output Total 2400 300 100 Balance -1999 -300 -100 Weight 89.2 kg Intake: Hemodialysis 400 Output: Urine 300 100 Hemodialysis 2400 Other: Voiding Method Diaper Diaper Urinal # Voids 1 # Bowel Movements 1 1 ABP, PAP, CO, CI - Last Documented Arterial Blood Pressure 101/67 - Labs CBC & Chem 7: 11/06/23 05:33 11/06/23 05:33 Labs: Abnormal Lab Results - Last 24 Hours (Table) 11/06/23 11/06/23 11/07/23 Range/Units 16:29 21:06 05:56 POC Glucose (mg/dL) 287 H 231 H 135 H (70-110) mg/dL 11/07/23 Range/Units 11:53 POC Glucose (mg/dL) 201 H (70-110) mg/dL
--- NOTE | 2023-11-07 13:33 | P.PN ---
Subjective Progress Note Date: 11/07/23 10/28/2023, the patient is being seen for a follow-up. 63-year-old male patient with acute respiratory failure related to an underlying aspiration pneumonia with known history of alcoholic liver disease/cirrhosis and liver failure. The patient was extubated on 10/26/2023. Patient is known to have COPD and he grew also Pseudomonas aeruginosa in the sputum. The patient also has chronic liver, chronic kidney disease with an acute kidney injury attributed to ATN knowing that the patient's baseline creatinine 10/01/2023 was 1.02. He was started on hemodialysis on 10/21/2023 due to volume overload and hyperkalemia as the patient was having oliguria. The patient has no significant hydronephrosis., coronary disease, diabetes mellitus, hypothyroidism and history of chronic alcoholism. The patient is currently on 4 weeks of oxygen by nasal cannula. The most recent chest x-ray from 10/27/2023 showed improvement in the left-sided pleural effusion, small lung volumes and bibasilar opacities probably due to atelectasis. Noted the patient also has Pseudomonas in the sputum and the patient is currently on IV Zosyn. Patient remains on pressors and norepinephrine is running at 0.02 mcg/kg/min. Adrenal insufficiency was also suspected and the patient was placed on stress dose hydrocortisone 50 mg every 8 hours. The patient is also on Lasix 80 mg IV daily and Sandostatin 50 mcg every 8 hours subcu and midodrine 10 mg p.o. 3 times daily. Transfer diabetes mellitus, the patient remains on Levemir insulin 15 units in addition to sliding scale coverage. Patient received lactulose 30 g twice a day. The ultrasound-guided paracentesis was done on 10/25/2023 and the patient had a total of 6.2 L of ascitic fluid removed. Most recent echocardiogram was done on 07/05/2024 indicating preserved LV function with moderate degree of mitral regurgitation. The blood cultures during this current admission has been negative. I suspect fluid cultures were also negative. Note that the cell count of the sleep note was low at 7 and there is no clinical indication of SBP. Patient continues to have a soft blood pressure. He was taken off the norepinephrine and earlier this morning, the nursing staff had to put her back for blood pressure drop as his systolic blood pressure dropped and the map was at 56. Currently is on norepinephrine at 0.01 mcg/kg/m he is on 4 L of oxygen by nasal cannula. Swallow evaluation is being repeated to evaluate his swallow and give him his oral medication if possible. Awake and alert and communicating. His white cycles of 4.7 with a hemoglobin of 9.4 and a platelet count of 78. BUN is 43 with a creatinine of 2.64 and a sodium level is at 136 and a potassium level is at 4.4. Urine output is in the order of 2 80 mL over the past 24 hours. Obviously oliguric and the findings on the case and the patient is going to undergo hemodialysis session today. He had the patient's chest x-ray from today shows some atelectatic change in lung bases. No other significant abnormalities noted. His last paracentesis was done on 10/25/2023 and a total of 6.2 L of ascitic fluid was removed. On today's evaluation of 11/02/2023, the patient is being seen for a follow-up. The patient is doing well and the patient is awake. The permacath was inserted in his left IJ. The patient was also given a swallow evaluation in the Dobbhoff was removed as the patient was able to pass the swallow evaluation. The patient is currently taking oral food. He remains on low-dose norepinephrine at 0.02 mcg/kg/min. The patient underwent hemodialysis yesterday. Total amount of ultrafiltration was in the order of 500 cc. Continues to have some ascites and some increased lower extremity edema. The white cell count at 6.9 with a hemoglobin of 9.1. Platelet count is at 66. BUN is at 35 with a creatinine of 2.1 and a sodium levels of 135. The patient was found to have Pseudomonas in the sputum. The patient remains on IV Zosyn. This was started initially on 10/30/2023 and the patient is going to complete a 7-day course. The chest x-ray close post line insertion showed no acute abnormalities. No evidence of any pneumothorax the catheter is a good location. Some limited atelectatic changes were seen at lung bases bilaterally. Otherwise, the patient is awake and alert and communicating. No other significant events over the past 24 hours. 11/03/2023, the patient is being seen for a follow-up. Doing very well currently on room air oxygen and the patient is taking oral intake and cough catheter has been removed. He is also off pressors and norepinephrine were discontinued yesterday at around 4 PM. He underwent hemodialysis yesterday. Doing well. No specific complaints. Volume status is improving and the patient is currently producing minimal amount of urine output in the order of less than 5 cc on an hourly basis. Remains on IV Zosyn.Labs from today shows a white cell count of 2.5, hemoglobin of 7.7 and a platelet count of 40. Sodium is at 132 with a BUN of 28 and a creatinine of 1.85. Potassium level is at 3.7. Patient was reevaluated today on 11/04/2023, patient was seen on follow-up, remains in the ICU, patient is now off all pressors, volume status is improving, remains on Zosyn, remains on maintenance dose of Solu-Cortef/hydrocortisone, remains on Zosyn for his Pseudomonas tracheobronchitis/bronchopneumonia. Has been on this since 10/30. Patient continues to have stigmata of chronic liver disease. His last paracentesis was done on and he had 6.2 L of ascitic fluid removed. Patient has gone periodic dialysis, and he has a dialysis catheter in place. Labs today WBC 3.3 hemoglobin 7.8. Basic metabolic profile is normal BUN is 34 creatinine 2.37, abdominal ultrasound today showed moderate abdominal ascites may have to consider another paracentesis on this patient in the next 24 hours. Reevaluated today on 11/05/23, patient remains in the ICU, he is on room air, scheduled to undergo another paracentesis today. Patient is relatively asymptomatic, denies any shortness of breath no cough, no chest pain, no abd ominal pain. Patient had his hemodialysis yesterday. And feeling great. The plan is to consider transferring the patient back to medical floor after his paracentesis is assuming his blood pressure holds and does not develop any hypotension. Consider giving the patient albumin if he does drop blood pressure post paracentesis. WBC count today 3.2 hemoglobin 7.7 basic metabolic profile is relatively normal potassium is a bit low at 3.3 BUN is 23 creatinine 2.03 Patient was reevaluated today on 11/06/2023, patient is doing great, underwent uneventful thoracentesis yesterday, patient is having hemodialysis this morning, and no major issues over the last 24 hours, blood pressure remained stable. Patient is being considered for discharge to ECF today, waiting for bed availability. Pulmonary nicole, I will clear the patient for discharge if there is a bed available for him today in ECF WBC is 3.7 hemoglobin 8.3 electrolytes are normal BUN is 28 creatinine 2.27 The patient is seen today November 07, 2023 and follow-up on the regular medical floor. He is currently resting comfortably in bed. He is awake and alert. He is maintaining O2 saturations in the 90s on room air. Glucose 135. He is continued on Demadex. Remains on Cortef. Continued on Levemir and insulin sliding scale. Objective - Vital Signs Vital signs: Vital Signs Temp 97.3 F L 11/07/23 07:05 Pulse 78 11/07/23 11:52 Resp 17 11/07/23 08:00 BP 101/68 11/07/23 11:52 Pulse Ox 95 11/07/23 01:27 FiO2 50 10/26/23 16:00 Intake & Output 11/06/23 11/07/23 11/07/23 18:59 06:59 18:59 Intake Total 400 Output Total 2400 300 100 Balance -2000 -300 -100 Weight 89.2 kg Intake: Hemodialysis 400 Output: Urine 300 100 Hemodialysis 2400 Other: Voiding Method Diaper Diaper Urinal # Voids 1 # Bowel Movements 1 1 ABP, PAP, CO, CI - Last Documented Arterial Blood Pressure 101/67 - Exam General: Awake and alert, 63-year-old male patient, in no distress, looks chronically ill, on room air Skin: Skin is warm and dry and no rashes or lesions are noted. Eye: Pupils are equal, round and reactive to light, extra-ocular movements are intact; there is normal conjunctiva bilaterally. Ears, nose, mouth and throat: There are moist mucous membranes and no oral lesions. Neck: The neck is supple, there is no tenderness or JVD. Left IJ permacath is noted in place. Cardiovascular: There is a regular rate and rhythm. No murmur, rub or gallop is appreciated. Respiratory: Clear bilaterally no rhonchi no wheezes Gastrointestinal: Minimal distention with ascites, no tenderness Back: There is no tenderness to palpation in the midline. There is no obvious deformity. Musculoskeletal: Normal ROM, no tenderness, There is no pedal edema. There is no calf tenderness or swelling. No cords were appreciated. Neurological: CN II-XII intact, Cranial nerves III through XII are intact. There are no obvious motor or sensory deficits. Coordination appears grossly intact. Speech is normal. Psychiatric: Cooperative, appropriate mood & affect, normal judgment. - Labs CBC & Chem 7: 11/06/23 05:33 11/06/23 05:33 Labs: Abnormal Lab Results - Last 24 Hours (Table) 11/06/23 11/06/23 11/07/23 Range/Units 16:29 21:06 05:56 POC Glucose (mg/dL) 287 H 231 H 135 H (70-110) mg/dL 11/07/23 Range/Units 11:53 POC Glucose (mg/dL) 201 H (70-110) mg/dL Assessment and Plan Assessment: Acute hypoxic respiratory failure secondary to aspiration pneumonia, liver cirrhosis, and ascites secondary to liver cirrhosis. Hypotension, multifactorial secondary to adrenal insufficiency, septic shock Pseudomonas aeruginosa tracheobronchitis, possible bronchopneumonia secondary to tracheobronchitis remains on Zosyn Liver cirrhosis with ascites, status post large-volume thoracentesis on 10/25/2023 total amount removed 6.2 L, fluid was not infected and there was no evidence of SBP History of alcoholism Acute kidney injury secondary to septic shock quiring hemodialysis Underlying COPD presently stable Type 2 diabetes Underlying coronary artery disease Moderate mitral regurgitation Hypothyroidism Anemia of chronic disease Chronic thrombocytopenia Plan: The patient was seen and evaluated Medications reviewed Stable and on room air Plan is for subacute rehabilitation at discharge I have personally seen and examined the patient, performed the documentation and the assessment and plan as written. Number of minutes spent on the visit: 10.
[2023-11-07 16:48] LABS: Glucose,Whole Blood 330 mg/dL (70-110)
[2023-11-07 21:28] LABS: Glucose,Whole Blood 263 mg/dL (70-110)
[2023-11-08 06:19] LABS: Glucose,Whole Blood 268 mg/dL (70-110)
[2023-11-08 11:20] LABS: BUN/Creat Ratio 8.62 Ratio (12.00-20.00); Blood Urea Nitrogen 20.7 mg/dL (9.0-27.0); Calcium 7.5 mg/dL (8.7-10.3); Carbon Dioxide 22.6 mmol/L (21.6-31.8); Chloride 99 mmol/L (96-109); Glucose 253 mg/dL (70-110); Magnesium 1.7 mg/dL (1.5-2.4); Phosphorus 4.1 mg/dL (2.4-5.1); Potassium 3.5 mmol/L (3.5-5.5); Sodium 133 mmol/L (135-145)
[2023-11-08 11:55] LABS: Glucose,Whole Blood 124 mg/dL (70-110)
--- NOTE | 2023-11-08 11:55 | P.PN ---
Subjective Progress Note Date: 11/08/23 10/28/2023, the patient is being seen for a follow-up. 63-year-old male patient with acute respiratory failure related to an underlying aspiration pneumonia with known history of alcoholic liver disease/cirrhosis and liver failure. The patient was extubated on 10/26/2023. Patient is known to have COPD and he grew also Pseudomonas aeruginosa in the sputum. The patient also has chronic liver, chronic kidney disease with an acute kidney injury attributed to ATN knowing that the patient's baseline creatinine 10/01/2023 was 1.02. He was started on hemodialysis on 10/21/2023 due to volume overload and hyperkalemia as the patient was having oliguria. The patient has no significant hydronephrosis., coronary disease, diabetes mellitus, hypothyroidism and history of chronic alcoholism. The patient is currently on 4 weeks of oxygen by nasal cannula. The most recent chest x-ray from 10/27/2023 showed improvement in the left-sided pleural effusion, small lung volumes and bibasilar opacities probably due to atelectasis. Noted the patient also has Pseudomonas in the sputum and the patient is currently on IV Zosyn. Patient remains on pressors and norepinephrine is running at 0.02 mcg/kg/min. Adrenal insufficiency was also suspected and the patient was placed on stress dose hydrocortisone 50 mg every 8 hours. The patient is also on Lasix 80 mg IV daily and Sandostatin 50 mcg every 8 hours subcu and midodrine 10 mg p.o. 3 times daily. Transfer diabetes mellitus, the patient remains on Levemir insulin 15 units in addition to sliding scale coverage. Patient received lactulose 30 g twice a day. The ultrasound-guided paracentesis was done on 10/25/2023 and the patient had a total of 6.2 L of ascitic fluid removed. Most recent echocardiogram was done on 07/05/2024 indicating preserved LV function with moderate degree of mitral regurgitation. The blood cultures during this current admission has been negative. I suspect fluid cultures were also negative. Note that the cell count of the sleep note was low at 7 and there is no clinical indication of SBP. Patient continues to have a soft blood pressure. He was taken off the norepinephrine and earlier this morning, the nursing staff had to put her back for blood pressure drop as his systolic blood pressure dropped and the map was at 56. Currently is on norepinephrine at 0.01 mcg/kg/m he is on 4 L of oxygen by nasal cannula. Swallow evaluation is being repeated to evaluate his swallow and give him his oral medication if possible. Awake and alert and communicating. His white cycles of 4.7 with a hemoglobin of 9.4 and a platelet count of 78. BUN is 43 with a creatinine of 2.64 and a sodium level is at 136 and a potassium level is at 4.4. Urine output is in the order of 2 80 mL over the past 24 hours. Obviously oliguric and the findings on the case and the patient is going to undergo hemodialysis session today. He had the patient's chest x-ray from today shows some atelectatic change in lung bases. No other significant abnormalities noted. His last paracentesis was done on 10/25/2023 and a total of 6.2 L of ascitic fluid was removed. On today's evaluation of 11/02/2023, the patient is being seen for a follow-up. The patient is doing well and the patient is awake. The permacath was inserted in his left IJ. The patient was also given a swallow evaluation in the [place] was removed as the patient was able to pass the swallow evaluation. The patient is currently taking oral food. He remains on low-dose norepinephrine at 0.02 mcg/kg/min. The patient underwent hemodialysis yesterday. Total amount of ultrafiltration was in the order of 500 cc. Continues to have some ascites and some increased lower extremity edema. The white cell count at 6.9 with a hemoglobin of 9.1. Platelet count is at 66. BUN is at 35 with a creatinine of 2.1 and a sodium levels of 135. The patient was found to have Pseudomonas in the sputum. The patient remains on IV Zosyn. This was started initially on 10/30/2023 and the patient is going to complete a 7-day course. The chest x-ray close post line insertion showed no acute abnormalities. No evidence of any pneumothorax the catheter is a good location. Some limited atelectatic changes were seen at lung bases bilaterally. Otherwise, the patient is awake and alert and communicating. No other significant events over the past 24 hours. 11/03/2023, the patient is being seen for a follow-up. Doing very well currently on room air oxygen and the patient is taking oral intake and cough catheter has been removed. He is also off pressors and norepinephrine were discontinued yesterday at around 4 PM. He underwent hemodialysis yesterday. Doing well. No specific complaints. Volume status is improving and the patient is currently producing minimal amount of urine output in the order of less than 5 cc on an hourly basis. Remains on IV Zosyn.Labs from today shows a white cell count of 2.5, hemoglobin of 7.7 and a platelet count of 40. Sodium is at 132 with a BUN of 28 and a creatinine of 1.85. Potassium level is at 3.7. Patient was reevaluated today on 11/04/2023, patient was seen on follow-up, remains in the ICU, patient is now off all pressors, volume status is improving, remains on Zosyn, remains on maintenance dose of Solu-Cortef/hydrocortisone, remains on Zosyn for his Pseudomonas tracheobronchitis/bronchopneumonia. Has been on this since 10/30. Patient continues to have stigmata of chronic liver disease. His last paracentesis was done on and he had 6.2 L of ascitic fluid removed. Patient has gone periodic dialysis, and he has a dialysis catheter in place. Labs today WBC 3.3 hemoglobin 7.8. Basic metabolic profile is normal BUN is 34 creatinine 2.37, abdominal ultrasound today showed moderate abdominal ascites may have to consider another paracentesis on this patient in the next 24 hours. Reevaluated today on 11/05/23, patient remains in the ICU, he is on room air, scheduled to undergo another paracentesis today. Patient is relatively asymptomatic, denies any shortness of breath no cough, no chest pain, no abd ominal pain. Patient had his hemodialysis yesterday. And feeling great. The plan is to consider transferring the patient back to medical floor after his paracentesis is assuming his blood pressure holds and does not develop any hypotension. Consider giving the patient albumin if he does drop blood pressure post paracentesis. WBC count today 3.2 hemoglobin 7.7 basic metabolic profile is relatively normal potassium is a bit low at 3.3 BUN is 23 creatinine 2.03 Patient was reevaluated today on 11/06/2023, patient is doing great, underwent uneventful thoracentesis yesterday, patient is having hemodialysis this morning, and no major issues over the last 24 hours, blood pressure remained stable. Patient is being considered for discharge to ECF today, waiting for bed availability. Pulmonary nicole, I will clear the patient for discharge if there is a bed available for him today in ECF WBC is 3.7 hemoglobin 8.3 electrolytes are normal BUN is 28 creatinine 2.27 The patient is seen today November 07, 2023 and follow-up on the regular medical floor. He is currently resting comfortably in bed. He is awake and alert. He is maintaining O2 saturations in the 90s on room air. Glucose 135. He is continued on Demadex. Remains on Cortef. Continued on Levemir and insulin sliding scale. The patient is seen today November 08, 2023 in follow-up on the regular medical floor. He is awake and alert in no acute distress. Laying comfortably in bed. Maintaining O2 saturations in the 90s on room air. Sodium 133. Potassium 3.5. Bicarb 23. BUN 21. Creatinine 2.4. Glucose 253. To receive hemodialysis today. He is on a Saturday schedule. Continued on diuretics. Objective - Vital Signs Vital signs: Vital Signs Temp 98.2 F 11/08/23 08:27 Pulse 79 11/08/23 08:27 Resp 18 11/08/23 08:27 BP 93/48 11/08/23 08:27 Pulse Ox 94 L 11/08/23 08:27 FiO2 50 10/26/23 16:00 Intake & Output 11/07/23 11/08/23 11/08/23 18:59 06:59 18:59 Output Total 100 Balance -100 Weight 89.2 kg Output: Urine 100 Other: Voiding Method Urinal Bedside Commode Bedside Commode Urinal Urinal # Voids 1 1 # Bowel Movements 1 1 ABP, PAP, CO, CI - Last Documented Arterial Blood Pressure 101/67 - Exam General: Awake, 63-year-old male patient, in no distress, resting comfortably in bed, on room air Skin: Skin is warm and dry and no rashes or lesions are noted. Eye: Pupils are equal, round and reactive to light, extra-ocular movements are intact; there is normal conjunctiva bilaterally. Ears, nose, mouth and throat: There are moist mucous membranes and no oral lesions. Neck: The neck is supple, there is no tenderness or JVD. Left IJ permacath is noted in place. Cardiovascular: There is a regular rate and rhythm. No murmur, rub or gallop is appreciated. Respiratory: Clear bilaterally no rhonchi no wheezes Gastrointestinal: Minimal distention with ascites, no tenderness Back: There is no tenderness to palpation in the midline. There is no obvious deformity. Musculoskeletal: Normal ROM, no tenderness, There is no pedal edema. There is no calf tenderness or swelling. No cords were appreciated. Neurological: CN II-XII intact, Cranial nerves III through XII are intact. There are no obvious motor or sensory deficits. Coordination appears grossly intact. Speech is normal. Psychiatric: Cooperative, appropriate mood & affect, normal judgment. - Labs CBC & Chem 7: 11/06/23 05:33 11/08/23 06:49 Labs: Abnormal Lab Results - Last 24 Hours (Table) 11/07/23 11/07/23 11/07/23 Range/Units 11:53 16:47 21:23 Sodium (135-145) mmol/L Creatinine (0.6-1.5) mg/dL Est GFR (CKD-EPI) (>=60) BUN/Creatinine Ratio (12.00-20.00) Ratio Glucose (70-110) mg/dL POC Glucose (mg/dL) 201 H 330 H 263 H (70-110) mg/dL Calcium (8.7-10.3) mg/dL 11/08/23 11/08/23 Range/Units 06:18 06:49 Sodium 133 L (135-145) mmol/L Creatinine 2.4 H (0.6-1.5) mg/dL Est GFR (CKD-EPI) 30 L (>=60) BUN/Creatinine Ratio 8.62 L (12.00-20.00) Ratio Glucose 253 H (70-110) mg/dL POC Glucose (mg/dL) 268 H (70-110) mg/dL Calcium 7.5 L (8.7-10.3) mg/dL Assessment and Plan Assessment: Acute hypoxic respiratory failure secondary to aspiration pneumonia, liver cirrhosis, and ascites secondary to liver cirrhosis. Recovered and on room air Hypotension, multifactorial secondary to adrenal insufficiency, septic shock. Recovered Pseudomonas aeruginosa tracheobronchitis, possible bronchopneumonia secondary to tracheobronchitis and completed Zosyn Liver cirrhosis with ascites, status post large-volume thoracentesis on 10/25/2023 total amount removed 6.2 L, fluid was not infected and there was no evidence of SBP. A second paracentesis performed on 11/05/2023 with another 3 L removed History of alcoholism Acute kidney injury secondary to septic shock quiring hemodialysis Underlying COPD presently stable Type 2 diabetes Underlying coronary artery disease Moderate mitral regurgitation Hypothyroidism Anemia of chronic disease Chronic thrombocytopenia Plan: The patient was seen and evaluated Medications and labs reviewed Stable and on room air To have hemodialysis today Cleared for discharge from the pulmonary standpoint Plan is for [facility] Will be set up with [facility] hemodialysis Saturday This patient was seen independently by the pulmonary nurse practitioner angelia king pulmonary issues I have personally seen and examined the patient, performed the documentation and the assessment and plan as written. Number of minutes spent on the visit: 24.
--- NOTE | 2023-11-08 12:19 | P.PN ---
Subjective Patient is seen in follow-up for acute kidney injury. Started on hemodialysis October 21, 2023. Oliguric. Underwent paracentesis October 24, 2023 with about 6 L drained. And again on November 05, 2023 with 3 L drained. Tolerating dialysis well. The catheter seems to have been pulled out so treatment will be stopped immediately. Vital signs are stable. General: Resting in bed. HEENT: On room air. LUNGS: No audible rhonchi or wheezes. HEART: Rate and Rhythm are regular. ABDOMEN: Distention noted. EXTREMITITES: 1+ edema. Objective - Vital Signs Vital signs: Vital Signs Temp 98.2 F 11/08/23 08:27 Pulse 79 11/08/23 08:27 Resp 18 11/08/23 08:27 BP 93/48 11/08/23 08:27 Pulse Ox 94 L 11/08/23 08:27 FiO2 50 10/26/23 16:00 Intake & Output 11/07/23 11/08/23 11/08/23 18:59 06:59 18:59 Output Total 100 Balance -100 Weight 89.2 kg Output: Urine 100 Other: Voiding Method Urinal Bedside Commode Bedside Commode Urinal Urinal # Voids 1 1 # Bowel Movements 1 1 ABP, PAP, CO, CI - Last Documented Arterial Blood Pressure 101/67 - Labs CBC & Chem 7: 11/06/23 05:33 11/08/23 06:49 Labs: Abnormal Lab Results - Last 24 Hours (Table) 11/07/23 11/07/23 11/08/23 Range/Units 16:47 21:23 06:18 Sodium (135-145) mmol/L Creatinine (0.6-1.5) mg/dL Est GFR (CKD-EPI) (>=60) BUN/Creatinine Ratio (12.00-20.00) Ratio Glucose (70-110) mg/dL POC Glucose (mg/dL) 330 H 263 H 268 H (70-110) mg/dL Calcium (8.7-10.3) mg/dL 11/08/23 11/08/23 Range/Units 06:49 11:54 Sodium 133 L (135-145) mmol/L Creatinine 2.4 H (0.6-1.5) mg/dL Est GFR (CKD-EPI) 30 L (>=60) BUN/Creatinine Ratio 8.62 L (12.00-20.00) Ratio Glucose 253 H (70-110) mg/dL POC Glucose (mg/dL) 124 H (70-110) mg/dL Calcium 7.5 L (8.7-10.3) mg/dL Assessment and Plan Plan: Assessment: 1. Acute kidney injury secondary to ATN secondary to septic shock. Creatinine 3.54 on admission. Creatinine as low as 1.02 dated 10/01/23. Started on hemodialysis October 21, 2023 due to volume overload and hyperkalemia. Oliguric. No hydronephrosis noted on ultrasound. 2. Septic shock. Concern for pneumonia. s/p IV antibiotics. Off Levophed. 3. Metabolic acidosis secondary to acute kidney injury. Improved postdialysis. 4. Hypervolemic hyponatremia. Improved. 5. Volume overload. Improved with ultrafiltration. 6. Alcohol induced liver cirrhosis. Patient noted to be pancytopenic. GI following. Most recent paracentesis November 05, 2023 with 3 L drained. 7. Acute hypoxic respiratory failure. 8. Diabetes mellitus. 9. Chronic diastolic CHF with moderate mitral regurgitation. 10. History of adrenal insufficiency. On Cortef. 11. Hyperphosphatemia secondary to acute kidney injury. On PhosLo. Phosphorus level 4.1 today. Plan: Currently seen while undergoing hemodialysis. He will be maintained on Saturday schedule outpatient. Will stop the treatment now as the catheter is pulled out quite a bit. Plan for short treatment tomorrow. Will notify vascular surgery. Maintain torsemide. Maintain midodrine. Avoid nephrotoxins. Continue to monitor renal function and urine output. Monitor for renal recovery outpatient. Encouraged oral intake.
--- NOTE | 2023-11-08 14:21 | P.PN ---
Subjective Progress Note Date: 11/08/23 Patient is a 63-year-old male with known liver disease requiring weekly paracentesis, recently diagnosed hepatorenal syndrome, adrenal insufficiency, diabetes, COPD, and coronary artery disease who presented to the ER via EMS after being found unresponsive at home. In the ER he underwent extensive evalua tion. On arrival he was hypothermic and hypoglycemic with a blood sugar of 47 despite treatment by EMS. Initial labs in the ER included CBC, coags, CMP, TSH, troponin, BNP, and ABG which were remarkable for hemoglobin 10, platelet count 79, pH 7.2, bicarb 18, sodium 132, potassium 5.3, BUN 87, creatinine 3.54 up from 2.15 most recently, magnesium 2.5, BNP 6340, and TSH of 5.680. Initial chest x-ray as reviewed by myself shows significant right-sided pleural effusion with increased pulmonary vascular congestion. In the ER he was started on D5 half normal due to his persistent hypoglycemia, these were warmed fluids to help with his hypothermia. Patient became more and more dyspneic. He ultimately required vasopressors due to prolonged hypotension, and intubation due to worsening respiratory distress from IV fluids. He was started on propofol and norepinephrine. Critical care was consulted. Arrangements were made for admission to the ICU. He was transitioned to D10 with sodium bicarb. He was seen by nephrology and required emergent HD for hyperkalemia and acidosis. He was able to come off of vasopressors and his Solu-Cortef was weaned. He was able to come off of the bicarb drip. His hemodialysis catheter stopped functioning on 10/24 and a guidewire exchange was performed by vascular surgery. He had an ultrasound- guided paracentesis completed on 10/24/2023 with removal of 6.2 L of fluid. He was extubated on 10/26. He failed a swallow study and Dobbhoff tube was placed f or enteral feedings. He continued to have minimal urine output. Cultures did come back positive for Pseudomonas pneumonia and antibiotics were streamlined to IV Zosyn he completed 12 days of therapy. Patient had permacath placed on . He was able to come off Levo on 11/02/23 and his Steroids were transitioned to back to his home adrenal insufficiency dose. Patient underwent paracentesis on 11/05 with removal of 3 L of fluid. Patient stable for discharge to rehab. Patient seen and examined at bedside. Dialysis catheter got pulled out, unable to complete dialysis today. Needs replacement. Vital signs reviewed General: Nontoxic, no distress, appears at stated age Cardiovascular: S1S2 reg, no murmur Lungs: Coarse breath sounds bilateral, no rhonchi, no rales, no accessory muscle use Abdominal: Soft, nontender to palpation, no guarding, + distended Ext: No gross muscle atrophy, no edema b/l lower extremities, no contractures Neuro: CN II-XI grossly intact, no focal neuro deficits Psych: Alert, oriented, appropriate affect Assessment/Plan: Decompensated cirrhosis Pseudomonas Pneumonia. s/p treatment Septic shock, resolved Pancytopenia in the setting of acute illness and liver disease -Continue to hold hold home aldactone and lisinopril due to hypotension -Continue to hold remeron and xanax -Pulmonology note reviewed, continue current management -GI recommended outpatient follow-up Acute kidney injury, due to ATN Chronic kidney disease stage III Hyperphosphatemia, secondary to SAHARA -Nephrology note reviewed: Hemodialysis tomorrow. Maintain fur torsemide and midodrine, needs dialysis catheter placement -Has been on HD since 10/21/23 - Charles for strict I's and O's - Midodrine 10 mg 3 times daily Insulin dependent diabetes - Prolonged hypoglycemia in an insulin-dependent diabetic, resolved - Levemir to 10 units at night - A1C 7.5 - SSI q 6 hours - follow BS Adrenal insufficiency now with shock, which is resolved -Hydrocortisone 20 mg in the morning and 10 mg in the evening Chronic: Coronary artery disease COPD without exacerbation Anemia of chronic disease Alcoholic cirrhosis Acute hypoxic respiratory failure , resolved Acute metabolic encephalopathy, resolved Hyerpvolemia hyponatremia, resolved Hyperkalemia, resolved Meatbolic acidosis, resolved Imaging: Abdominal ultrasound: Moderate ascites Data Review: Sodium 133, potassium 3.5, creatinine 2.4, magnesium 1.7, blood sugars range between 1 24-2 68 DVT prophylaxis: SCDs Anticipated discharge date: Likely tomorrow Anticipated discharge place: [facility] Objective - Vital Signs Vital signs: Vital Signs Temp 98.0 F 11/08/23 12:22 Pulse 86 11/08/23 12:22 Resp 20 11/08/23 12:22 BP 116/65 11/08/23 12:22 Pulse Ox 94 L 11/08/23 08:27 FiO2 50 10/26/23 16:00 Intake & Output 11/07/23 11/08/23 11/08/23 18:59 06:59 18:59 Intake Total 350 Output Total 100 1276 Balance -100 -926 Weight 89.2 kg Intake: Hemodialysis 350 Output: Urine 100 Hemodialysis 1276 Other: Voiding Method Urinal Bedside Commode Bedside Commode Urinal Urinal # Voids 1 1 # Bowel Movements 1 1 ABP, PAP, CO, CI - Last Documented Arterial Blood Pressure 101/67 - Labs CBC & Chem 7: 11/06/23 05:33 11/08/23 06:49 Labs: Abnormal Lab Results - Last 24 Hours (Table) 11/07/23 11/07/23 11/08/23 Range/Units 16:47 21:23 06:18 Sodium (135-145) mmol/L Creatinine (0.6-1.5) mg/dL Est GFR (CKD-EPI) (>=60) BUN/Creatinine Ratio (12.00-20.00) Ratio Glucose (70-110) mg/dL POC Glucose (mg/dL) 330 H 263 H 268 H (70-110) mg/dL Calcium (8.7-10.3) mg/dL 11/08/23 11/08/23 Range/Units 06:49 11:54 Sodium 133 L (135-145) mmol/L Creatinine 2.4 H (0.6-1.5) mg/dL Est GFR (CKD-EPI) 30 L (>=60) BUN/Creatinine Ratio 8.62 L (12.00-20.00) Ratio Glucose 253 H (70-110) mg/dL POC Glucose (mg/dL) 124 H (70-110) mg/dL Calcium 7.5 L (8.7-10.3) mg/dL
[2023-11-08] MEDS: SODIUM CHLORIDE 0.9% 250 ML IV ONE (15:21)
[2023-11-08] MEDS ORDERED: LIDOCAINE 1% INJ 10MG/ML (20 ML MDV) ONE ×2 (15:37→15:43)
[2023-11-08] MEDS ORDERED: fentaNYL (PF) 50 MCG/ML 2 ML AMP ONE (15:39)
[2023-11-08] MEDS: LIDOCAINE 1% INJ 10MG/ML (30 ML VIAL-PF) SQ ONE (15:42)
[2023-11-08] MEDS: MIDAZOLAM 2 MG/2 ML VIAL IVP ONE (15:43)
[2023-11-08] MEDS ORDERED: HEPARIN SODIUM 1,000 UN/ML (10ML VL) ONE (15:43)
[2023-11-08] MEDS: fentaNYL (PF) 50 MCG/1 ML VIAL IVP ONE (15:46)
[2023-11-08] MEDS: LIDOCAINE 1% INJ 10MG/ML (20 ML MDV) SQ ONE (15:48)
--- NOTE | 2023-11-08 16:24 | P.PCN ---
Description of Procedure: Pre-op diagnosis acute chronic renal failure Postop the same Procedure 23 hemodialysis catheter placed right ureteral approach Patient brought to the [facility] right and left side of the neck was prepped draped for problems for manner this patient had a left IJ catheter placed in the past catheter along with the cuff came out we decided to go through the right side of the neck 1% lidocaine infiltrated ultrasound-guided micropuncture in the right jugular vein micropuncture guide was passed for went to return to out of the guidewire a tunnel was created through clinical we brought the risk incision at the neck incision site. Under fluoroscopy controlled bilateral. The guidewire and sheath was advanced over the guidewire through the sheath. The patient had his catheter sheath was removed to procure the superior vena cava atrial junction flushed with heparin saline hep-locked secured with 3-0 nylon dressing applied patient tolerated procedure well patient will have x-ray of the chest left side catheter was removed
[2023-11-08 16:31] LABS: Glucose,Whole Blood 406 mg/dL (70-110)
--- NOTE | 2023-11-08 16:57 | IR ---
EXAMINATION TYPE: IR cvc insert central tunneled Intraoperative/procedural fluoroscopic services were provided. CLINICAL INDICATION:Male, 63 years old with history of RENAL FAILURE 1.2MIN FLUORO; , [facility] Total fluoroscopy time is 1.2 min. DAP: Gycm2 1.897 Please see the operative/procedural note for further details.
[2023-11-08] MEDS: INSULIN ASPART (NovoLOG) 100 UNIT/ML VIAL SQ ONE (17:26)
[2023-11-08 20:55] LABS: Glucose,Whole Blood 423 mg/dL (70-110)
[2023-11-08 21:12] VITALS: RESP 18
[2023-11-09 05:49] LABS: Glucose,Whole Blood 194 mg/dL (70-110)
--- NOTE | 2023-11-09 11:10 | XR ---
EXAMINATION TYPE: XR chest 1V confirm line [facility] DATE OF EXAM: 11/09/2023 CLINICAL HISTORY: Central line placement TECHNIQUE: Single frontal upright view of the chest is obtained. COMPARISON: Chest x-ray 6 days ago FINDINGS: New large bore right internal jugular dialysis catheter terminates in right atrium. No pneu mothorax is seen. Persistent low lung volumes. Some chronic parenchymal changes bilaterally redemonst rated. The cardiac silhouette size is stable and within normal limits. Degenerative change right gle nohumeral joint redemonstrated. IMPRESSION: No pneumothorax after right sided dialysis catheter insertion.
[2023-11-09 11:53] LABS: Glucose,Whole Blood 317 mg/dL (70-110)
--- NOTE | 2023-11-09 11:59 | P.PN ---
Subjective Progress Note Date: 11/09/23 10/28/2023, the patient is being seen for a follow-up. 63-year-old male patient with acute respiratory failure related to an underlying aspiration pneumonia with known history of alcoholic liver disease/cirrhosis and liver failure. The patient was extubated on 10/26/2023. Patient is known to have COPD and he grew also Pseudomonas aeruginosa in the sputum. The patient also has chronic liver, chronic kidney disease with an acute kidney injury attributed to ATN knowing that the patient's baseline creatinine 10/01/2023 was 1.02. He was started on hemodialysis on 10/21/2023 due to volume overload and hyperkalemia as the patient was having oliguria. The patient has no significant hydronephrosis., coronary disease, diabetes mellitus, hypothyroidism and history of chronic alcoholism. The patient is currently on 4 weeks of oxygen by nasal cannula. The most recent chest x-ray from 10/27/2023 showed improvement in the left-sided pleural effusion, small lung volumes and bibasilar opacities probably due to atelectasis. Noted the patient also has Pseudomonas in the sputum and the patient is currently on IV Zosyn. Patient remains on pressors and norepinephrine is running at 0.02 mcg/kg/min. Adrenal insufficiency was also suspected and the patient was placed on stress dose hydrocortisone 50 mg every 8 hours. The patient is also on Lasix 80 mg IV daily and Sandostatin 50 mcg every 8 hours subcu and midodrine 10 mg p.o. 3 times daily. Transfer diabetes mellitus, the patient remains on Levemir insulin 15 units in addition to sliding scale coverage. Patient received lactulose 30 g twice a day. The ultrasound-guided paracentesis was done on 10/25/2023 and the patient had a total of 6.2 L of ascitic fluid removed. Most recent echocardiogram was done on 07/05/2024 indicating preserved LV function with moderate degree of mitral regurgitation. The blood cultures during this current admission has been negative. I suspect fluid cultures were also negative. Note that the cell count of the sleep note was low at 7 and there is no clinical indication of SBP. Patient continues to have a soft blood pressure. He was taken off the norepinephrine and earlier this morning, the nursing staff had to put her back for blood pressure drop as his systolic blood pressure dropped and the map was at 56. Currently is on norepinephrine at 0.01 mcg/kg/m he is on 4 L of oxygen by nasal cannula. Swallow evaluation is being repeated to evaluate his swallow and give him his oral medication if possible. Awake and alert and communicating. His white cycles of 4.7 with a hemoglobin of 9.4 and a platelet count of 78. BUN is 43 with a creatinine of 2.64 and a sodium level is at 136 and a potassium level is at 4.4. Urine output is in the order of 2 80 mL over the past 24 hours. Obviously oliguric and the findings on the case and the patient is going to undergo hemodialysis session today. He had the patient's chest x-ray from today shows some atelectatic change in lung bases. No other significant abnormalities noted. His last paracentesis was done on 10/25/2023 and a total of 6.2 L of ascitic fluid was removed. On today's evaluation of 11/02/2023, the patient is being seen for a follow-up. The patient is doing well and the patient is awake. The permacath was inserted in his left IJ. The patient was also given a swallow evaluation in the Dobbhoff was removed as the patient was able to pass the swallow evaluation. The patient is currently taking oral food. He remains on low-dose norepinephrine at 0.02 mcg/kg/min. The patient underwent hemodialysis yesterday. Total amount of ultrafiltration was in the order of 500 cc. Continues to have some ascites and some increased lower extremity edema. The white cell count at 6.9 with a hemoglobin of 9.1. Platelet count is at 66. BUN is at 35 with a creatinine of 2.1 and a sodium levels of 135. The patient was found to have Pseudomonas in the sputum. The patient remains on IV Zosyn. This was started initially on 10/30/2023 and the patient is going to complete a 7-day course. The chest x-ray close post line insertion showed no acute abnormalities. No evidence of any pneumothorax the catheter is a good location. Some limited atelectatic changes were seen at lung bases bilaterally. Otherwise, the patient is awake and alert and communicating. No other significant events over the past 24 hours. 11/03/2023, the patient is being seen for a follow-up. Doing very well currently on room air oxygen and the patient is taking oral intake and cough catheter has been removed. He is also off pressors and norepinephrine were discontinued yesterday at around 4 PM. He underwent hemodialysis yesterday. Doing well. No specific complaints. Volume status is improving and the patient is currently producing minimal amount of urine output in the order of less than 5 cc on an hourly basis. Remains on IV Zosyn.Labs from today shows a white cell count of 2.5, hemoglobin of 7.7 and a platelet count of 40. Sodium is at 132 with a BUN of 28 and a creatinine of 1.85. Potassium level is at 3.7. Patient was reevaluated today on 11/04/2023, patient was seen on follow-up, remains in the ICU, patient is now off all pressors, volume status is improving, remains on Zosyn, remains on maintenance dose of Solu-Cortef/hydrocortisone, remains on Zosyn for his Pseudomonas tracheobronchitis/bronchopneumonia. Has been on this since 10/30. Patient continues to have stigmata of chronic liver disease. His last paracentesis was done on and he had 6.2 L of ascitic fluid removed. Patient has gone periodic dialysis, and he has a dialysis catheter in place. Labs today WBC 3.3 hemoglobin 7.8. Basic metabolic profile is normal BUN is 34 creatinine 2.37, abdominal ultrasound today showed moderate abdominal ascites may have to consider another paracentesis on this patient in the next 24 hours. Reevaluated today on 11/05/23, patient remains in the ICU, he is on room air, scheduled to undergo another paracentesis today. Patient is relatively asymptomatic, denies any shortness of breath no cough, no chest pain, no abd ominal pain. Patient had his hemodialysis yesterday. And feeling great. The plan is to consider transferring the patient back to medical floor after his paracentesis is assuming his blood pressure holds and does not develop any hypotension. Consider giving the patient albumin if he does drop blood pressure post paracentesis. WBC count today 3.2 hemoglobin 7.7 basic metabolic profile is relatively normal potassium is a bit low at 3.3 BUN is 23 creatinine 2.03 Patient was reevaluated today on 11/06/2023, patient is doing great, underwent uneventful thoracentesis yesterday, patient is having hemodialysis this morning, and no major issues over the last 24 hours, blood pressure remained stable. Patient is being considered for discharge to ECF today, waiting for bed availability. Pulmonary nicole, I will clear the patient for discharge if there is a bed available for him today in ECF WBC is 3.7 hemoglobin 8.3 electrolytes are normal BUN is 28 creatinine 2.27 The patient is seen today November 07, 2023 and follow-up on the regular medical floor. He is currently resting comfortably in bed. He is awake and alert. He is maintaining O2 saturations in the 90s on room air. Glucose 135. He is continued on Demadex. Remains on Cortef. Continued on Levemir and insulin sliding scale. The patient is seen today November 08, 2023 in follow-up on the regular medical floor. He is awake and alert in no acute distress. Laying comfortably in bed. Maintaining O2 saturations in the 90s on room air. Sodium 133. Potassium 3.5. Bicarb 23. BUN 21. Creatinine 2.4. Glucose 253. To receive hemodialysis today. He is on a Saturday schedule. Continued on diuretics. The patient is seen today November 09, 2023 in follow-up regular medical floor. He is resting comfortably in bed. Awake and alert in no acute distress. Maintaining O2 saturation in the 90s on room air. He did have a internal jugular permacath placed yesterday for hemodialysis. Follow-up chest x-ray revealed no evidence of pneumothorax post insertion. Blood sugar 194. Objective - Vital Signs Vital signs: Vital Signs Temp 98.7 F 11/09/23 07:24 Pulse 103 H 11/09/23 07:24 Resp 18 11/09/23 07:24 BP 99/69 11/09/23 07:24 Pulse Ox 97 11/09/23 07:24 FiO2 50 10/26/23 16:00 Intake & Output 11/08/23 11/09/23 11/09/23 18:59 06:59 18:59 Intake Total 450 Output Total 1276 Balance -826 Weight 91.5 kg Intake: IV 100 Hemodialysis 350 Output: Hemodialysis 1276 Other: Voiding Method Bedside Commode Bedside Commode Diaper Urinal Urinal Diaper # Voids 1 3 # Bowel Movements 5 ABP, PAP, CO, CI - Last Documented Arterial Blood Pressure 101/67 - Exam General: Awake, alert 63-year-old male patient, resting comfortably in bed, on room air Skin: Skin is warm and dry and no rashes or lesions are noted. Eye: Pupils are equal, round and reactive to light, extra-ocular movements are intact; there is normal conjunctiva bilaterally. Ears, nose, mouth and throat: There are moist mucous membranes and no oral lesi ons. Neck: The neck is supple, there is no tenderness or JVD. Right IJ permacath is noted in place. Cardiovascular: There is a regular rate and rhythm. No murmur, rub or gallop is appreciated. Respiratory: Clear bilaterally no rhonchi no wheezes Gastrointestinal: Minimal distention with ascites, no tenderness Back: There is no tenderness to palpation in the midline. There is no obvious deformity. Musculoskeletal: Normal ROM, no tenderness, There is no pedal edema. There is no calf tenderness or swelling. No cords were appreciated. Neurological: CN II-XII intact, Cranial nerves III through XII are intact. There are no obvious motor or sensory deficits. Coordination appears grossly in tact. Speech is normal. Psychiatric: Cooperative, appropriate mood & affect, normal judgment. - Labs CBC & Chem 7: 11/06/23 05:33 11/08/23 06:49 Labs: Abnormal Lab Results - Last 24 Hours (Table) 11/08/23 11/08/23 11/08/23 Range/Units 11:54 16:30 20:54 POC Glucose (mg/dL) 124 H 406 H 423 H (70-110) mg/dL 11/09/23 11/09/23 Range/Units 05:43 11:52 POC Glucose (mg/dL) 194 H 317 H (70-110) mg/dL Assessment and Plan Assessment: Acute hypoxic respiratory failure secondary to aspiration pneumonia, liver cirrhosis, and ascites secondary to liver cirrhosis. Recovered and on room air Hypotension, multifactorial secondary to adrenal insufficiency, septic shock. Recovered Pseudomonas aeruginosa tracheobronchitis, possible bronchopneumonia secondary to tracheobronchitis and completed Zosyn Liver cirrhosis with ascites, status post large-volume thoracentesis on 10/25/2023 total amount removed 6.2 L, fluid was not infected and there was no evidence of SBP. A second paracentesis performed on 11/05/2023 with another 3 L removed History of alcoholism Acute kidney injury secondary to septic shock requiring hemodialysis Underlying COPD presently stable Type 2 diabetes Underlying coronary artery disease Moderate mitral regurgitation Hypothyroidism Anemia of chronic disease Chronic thrombocytopenia Plan: The patient was seen and evaluated Currently stable and on room air Chest x-ray, medications and labs reviewed No evidence of pneumothorax post right IJ permacath insertion Cleared for discharge from the pulmonary standpoint Plan is for [facility] ECF Will be set up with [facility] This patient was seen independently by the pulmonary nurse practitioner addressing pulmonary issues I have personally seen and examined the patient, performed the documentation and the assessment and plan as written. Number of minutes spent on the visit: 22.
--- NOTE | 2023-11-09 12:09 | P.DS ---
Providers Date of admission: 10/21/23 07:07 Expected date of discharge: 11/09/23 Attending physician: Rich Ayala MD Consults: 10/21/23 07:07 Consult Physician Stat Consulting Provider: Macie Herman Consult Reason/Comments: ICU Do you want consulting provider notified?: Already Contacted 10/21/23 09:23 Consult Physician Routine Consulting Provider: Srini Medina Consult Reason/Comments: hepatorenal syndrome Do you want consulting provider notified?: Yes 10/21/23 14:22 Consult Physician Stat Consulting Provider: Geoffrey Simons Consult Reason/Comments: HD cath Do you want consulting provider notified?: Already Contacted Primary care physician: Megan Langford DO Hospital Course: Discharge Diagnosis: Decompensated cirrhosis Pseudomonas Pneumonia. s/p completion of treatment on 11/08/2023 Septic shock, secondary to above. Resolved. Pancytopenia in the setting of acute illness and liver disease Hypotension. Lisinopril, Aldactone, and Lasix were discontinued. Patient started on dialysis for fluid volume overload and placed on torsemide 40 mg daily and midodrine 10 mg every 6 hours. Acute kidney injury, due to ATN. Patient started on dialysis on 10/21/2023. Chronic kidney disease stage IIIb. Hyperphosphatemia, secondary to SAHARA. Insulin dependent diabetes with hemoglobin A1c of 7.5%. Continue Levemir 10 units nightly along with NovoLog sliding scale. Adrenal insufficiency now with shock, which is resolved. Continue hydrocortisone 20 mg in the morning and 10 mg in the evening. Acute hypoxic respiratory failure , resolved Acute metabolic encephalopathy, resolved Hyerpvolemia hyponatremia, resolved Hyperkalemia, resolved Meatbolic acidosis, resolved Coronary artery disease COPD without exacerbation Anemia of chronic disease Alcoholic cirrhosis Hospital Course: Patient is a 63-year-old male with known liver disease requiring weekly paracentesis, recently diagnosed hepatorenal syndrome, adrenal insufficiency, diabetes, COPD, and coronary artery disease who presented to the ER via EMS after being found unresponsive at home. In the ER he underwent extensive evaluation. On arrival he was hypothermic and hypoglycemic with a blood sugar of 47 despite treatment by EMS. Initial labs in the ER included CBC, coags, CMP, TSH, troponin, BNP, and ABG which were remarkable for hemoglobin 10, platelet count 79, pH 7.2, bicarb 18, sodium 132, potassium 5.3, BUN 87, creatinine 3.54 up from 2.15 most recently, magnesium 2.5, BNP 6340, and TSH of 5.680. Initial chest x-ray as reviewed by myself shows significant right-sided pleural effusion with increased pulmonary vascular congestion. In the ER he was started on D5 half normal due to his persistent hypoglycemia, these were warmed fluids to help with his hypothermia. Patient became more and more dyspneic. He ultimately required vasopressors due to prolonged hypotension, and intubation due to worsening respiratory distress from IV fluids. He was started on propofol and norepinephrine. Critical care was consulted. Arrangements were made for admission to the ICU. Patient was transitioned to D10 with sodium bicarb. He was seen by nephrology and required emergent HD for hyperkalemia and acidosis. He was able to come off of vasopressors and his Solu-Cortef was weaned. He was able to come off of the bicarb drip. His hemodialysis catheter stopped functioning on 10/24 and a guidewire exchange was performed by vascular surgery. He had an ultrasound-guided paracentesis completed on 10/24/2023 with removal of 6.2 L of fluid. He was extubated on 10/26. He failed a swallow study and Dobbhoff tube was placed for enteral feedings. He continued to have minimal urine output. Cultures did come back positive for Pseudomonas pneumonia and antibiotics were streamlined to IV Zosyn he completed 12 days of therapy. Patient had permacath placed on . He was able to come off Levo on 11/02/23 and his Steroids were transitioned to back to his home adrenal insufficiency dose. Patient underwent paracentesis on 11/05 with removal of 3 L of fluid. New dialysis tunneled catheter was placed to right anterior chest. Patient to complete dialysis session and proceed with planned discharge to [facility] for rehab. Stable for discharge to rehab. Patient to follow-up outpatient with PCP, dynamics ax solution architect, and hospital medical assistant. Physical exam: Vital signs reviewed and stable. General: Nontoxic, no distress and appears stated age. Derm: Skin warm and dry, normal coloration for ethnicity. Head: Atraumatic, normocephalic and symmetric. Eyes: EOMs intact, no lid lag, and anicteric sclera Mouth: no lip lesions, mucus membranes moist Cardiovascular: regular rate and rhythm with normal S1S2, no murmur, positive posterior tibial pulses bilaterally, and cap refill < 2 seconds. Dialysis catheter right anterior chest Lungs: Respirations even, regular, and unlabored on room air. Lungs CTA bilaterally, no rhonchi, no rales, no wheezing, and no accessory muscle usage. Abdominal: soft, nontender to palpation, no guarding, no appreciable organomegaly Ext: ROM intact. No gross muscle atrophy, scant bilateral lower extremity edema, no contractures Neuro: Speech clear, face symmetrical and CN II-XII grossly intact with no noted focal neuro deficits Psych: Alert and oriented to person, place, time, and situation. Appropriate and pleasant affect. A total of 38 minutes of time were spent preparing this complex discharge summary. Pt was discharged on 11/09/2023 at 11:56 AM. Patient was seen independently by Nurse Practitioner. This document was prepared using [employer] dictation software. Please allow for errors in service agent while rare they do occur. This patient was seen independently by Elsa KETTLE COORDINATOR. I agree with the assessment and plan done by my colleague. Patient Condition at Discharge: Stable Plan - Discharge Summary Discharge Rx Participant: Yes New Discharge Prescriptions: New Torsemide [Demadex] 40 mg PO DAILY tab Insulin Detemir (Levemir) [Levemir] 10 unit SQ HS each Calcium Acetate [PhosLo] 667 mg PO BID-W/MEALS tab Levothyroxine Sodium [Synthroid] 100 mcg PO DAILY@0630 tab HYDROcodone/APAP 7.5-325MG [[place] 7.5-325] 1 tab PO Q4H PRN 3 Days #12 tab PRN Reason: Pain Continue Lactulose 10 gm PO DAILY Atorvastatin [Lipitor] 20 mg PO HS Pantoprazole [Protonix] 40 mg PO DAILY Albuterol Sulfate [Albuterol Sulfate Hfa] 2 puff PO RT-Q4H PRN PRN Reason: Shortness Of Breath Discontinued Insulin Lispro [humaLOG Kwikpen] See Protocol SQ ACHS Furosemide [Lasix] 20 mg PO BID Potassium Chloride [Klor-Con M10] 10 meq PO BID ALPRAZolam [Xanax] 0.25 mg PO Q6H PRN PRN Reason: Anxiety Folic Acid 1 mg PO DAILY tab Midodrine HCl [ProAmatine] 10 mg PO TID@0700,1300,1900 Insulin Glargine,Hum.rec.anlog [Lantus Solostar Pen] 20 units SQ HS Spironolactone [Aldactone] 50 mg PO DAILY HYDROcodone/APAP 7.5-325MG [[place] 7.5-325] 1 tab PO Q6HR PRN 3 Days #12 tab PRN Reason: pain lisinopriL [Zestril] 5 mg PO DAILY Mirtazapine [Remeron] 30 mg PO HS No Action Hydrocortisone [Cortef] 10 mg PO W/SUPPER Hydrocortisone [Cortef] 20 mg PO W/BRKFST Midodrine HCl [ProAmatine] 10 mg PO Q6H INSULIN ASPART (NovoLOG) [NovoLOG (formulary)] 4 unit SQ ACHS Discharge Medication List Lactulose 10 gm PO DAILY 10/07/23 [History] Pantoprazole [Protonix] 40 mg PO DAILY 10/07/23 [History] Albuterol Sulfate [Albuterol Sulfate Hfa] 2 puff PO RT-Q4H PRN 10/21/23 [History] Atorvastatin [Lipitor] 20 mg PO HS 10/21/23 [History] Calcium Acetate [PhosLo] 667 mg PO BID-W/MEALS tab 11/06/23 [Rx] HYDROcodone/APAP 7.5-325MG [[place] 7.5-325] 1 tab PO Q4H PRN 3 Days #12 tab 11/06/23 [Rx] Insulin Detemir (Levemir) [Levemir] 10 unit SQ HS each 11/06/23 [Rx] Levothyroxine Sodium [Synthroid] 100 mcg PO DAILY@0630 tab 11/06/23 [Rx] Torsemide [Demadex] 40 mg PO DAILY tab 11/06/23 [Rx] Hydrocortisone [Cortef] 10 mg PO W/SUPPER 11/10/23 [History] Hydrocortisone [Cortef] 20 mg PO W/BRKFST 11/10/23 [History] INSULIN ASPART (NovoLOG) [NovoLOG (formulary)] 4 unit SQ ACHS 11/10/23 [History] Midodrine HCl [ProAmatine] 10 mg PO Q6H 11/10/23 [History] Follow up Appointment(s)/Referral(s): Miladis Pfeiffer MD [STAFF PHYSICIAN] - 1 Week (Office is closed at time of discharge. Please call for follow-up appointment.) Megan Langford DO [Primary Care Provider] - 1-2 days (Please call for follow-up appointment.) [facility] - 11/11/23 2:00 pm (Chair time: Mondays, Wednesdays, and Fridays at 14:15 p.m.. Patient needs to arrive to the first visit on Saturday by 14:00 p.m. ) Leigh Ann Lynch MD [STAFF PHYSICIAN] - 4 Weeks (Office is closed at time of discharge. Please call for follow-up appointment.) Activity/Diet/Wound Care/Special Instructions: Activity: As tolerated, fall precautions Diet: Heart healthy, consistent carb, renal diet Special Instructions: HgB on discharge is 8.5. Dr. Lynch in 2 to 4 weeks, primary care physician on discharge from rehab. Will need to monitor patient closely for signs of recurrent ascites as he has not required multiple paracentesis prior to this hospital admission. Discharge Disposition: TRANSFER TO SNF/ECF
--- NOTE | 2023-11-09 15:29 | P.PN ---
Subjective Progress Note Date: 11/09/23 Patient is seen in follow-up for acute kidney injury. Started on hemodialysis October 21, 2023. Oliguric. Underwent paracentesis October 24, 2023 with about 6 L drained. And again on November 05, 2023 with 3 L drained. Tolerating dialysis well. No new complaints. Vital signs are stable. General: Resting in bed. HEENT: On room air. LUNGS: No audible rhonchi or wheezes. HEART: Rate and Rhythm are regular. ABDOMEN: Distention noted. EXTREMITITES: 1+ edema. Objective - Vital Signs Vital signs: Vital Signs Temp 98.7 F 11/09/23 07:24 Pulse 103 H 11/09/23 07:24 Resp 18 11/09/23 07:24 BP 99/69 11/09/23 07:24 Pulse Ox 97 11/09/23 07:24 FiO2 50 10/26/23 16:00 Intake & Output 11/08/23 11/09/23 11/09/23 18:59 06:59 18:59 Intake Total 450 Output Total 1276 Balance -826 Weight 91.5 kg Intake: IV 100 Hemodialysis 350 Output: Hemodialysis 1276 Other: Voiding Method Bedside Commode Bedside Commode Diaper Urinal Urinal Diaper # Voids 1 3 # Bowel Movements 5 ABP, PAP, CO, CI - Last Documented Arterial Blood Pressure 101/67 - Labs CBC & Chem 7: 11/06/23 05:33 11/08/23 06:49 Labs: Abnormal Lab Results - Last 24 Hours (Table) 11/08/23 11/08/23 11/08/23 Range/Units 11:54 16:30 20:54 POC Glucose (mg/dL) 124 H 406 H 423 H (70-110) mg/dL 11/09/23 Range/Units 05:43 POC Glucose (mg/dL) 194 H (70-110) mg/dL Assessment and Plan Plan: Assessment: 1. Acute kidney injury secondary to ATN secondary to septic shock. Creatinine 3.54 on admission. Creatinine as low as 1.02 dated 10/01/23. Started on hemodialysis October 21, 2023 due to volume overload and hyperkalemia. Oliguric. No hydronephrosis noted on ultrasound. 2. Septic shock. Concern for pneumonia. s/p IV antibiotics. Off Levophed. 3. Metabolic acidosis secondary to acute kidney injury. Improved postdialysis. 4. Hypervolemic hyponatremia. Improved. 5. Volume overload. Improved with ultrafiltration. 6. Alcohol induced liver cirrhosis. Patient noted to be pancytopenic. GI following. Most recent paracentesis November 05, 2023 with 3 L drained. 7. Acute hypoxic respiratory failure. 8. Diabetes mellitus. 9. Chronic diastolic CHF with moderate mitral regurgitation. 10. History of adrenal insufficiency. On Cortef. 11. Hyperphosphatemia secondary to acute kidney injury. On PhosLo. Phosphorus level 4.1 today. Plan: Currently seen while undergoing hemodialysis. Next treatment Saturday to maintain MWF schedule. Permcath exchanged 11/08 Maintain torsemide. Maintain midodrine. Avoid nephrotoxins. Continue to monitor renal function and urine output. Monitor for renal recovery outpatient. Encouraged oral intake.
[2023-11-09 16:04] VITALS: BP 103/56; PULSE 83; TEMP 97.8
== END 2023-11-09 16:34 | DRG 870 ==
LOC: EC 02:53 → 2SICU 07:07 → 4SSUR 11-06 18:53
PROVIDERS: ADMIT Internal Medicine; ATTEND Internal Medicine
PROC: 5A1955Z Respiratory Ventilation, Greater than 96 Consecutive Hours (ICD-10-PCS; principal; 2023-10-21)
PROC: 02HV33Z Insertion of Infusion Device into Superior Vena Cava, Percutaneous Approach (ICD-10-PCS; 2023-10-21)
PROC: 3E043XZ Introduction of Vasopressor into Central Vein, Percutaneous Approach (ICD-10-PCS; 2023-10-21)
PROC: 0BH18EZ Insertion of Endotracheal Airway into Trachea, Via Natural or Artificial Opening Endoscopic (ICD-10-PCS; 2023-10-21)
PROC: 0D9670Z Drainage of Stomach with Drainage Device, Via Natural or Artificial Opening (ICD-10-PCS; 2023-10-21)
PROC: 5A1D70Z Performance of Urinary Filtration, Intermittent, Less than 6 Hours Per Day (ICD-10-PCS; 2023-10-21)
PROC: 04HY32Z Insertion of Monitoring Device into Lower Artery, Percutaneous Approach (ICD-10-PCS; 2023-10-21)
PROC: 4A133B1 Monitoring of Arterial Pressure, Peripheral, Percutaneous Approach (ICD-10-PCS; 2023-10-21)
PROC: 4A133J1 Monitoring of Arterial Pulse, Peripheral, Percutaneous Approach (ICD-10-PCS; 2023-10-21)
PROC: 3E0G76Z Introduction of Nutritional Substance into Upper GI, Via Natural or Artificial Opening (ICD-10-PCS; 2023-10-22)
PROC: 0W9G3ZZ Drainage of Peritoneal Cavity, Percutaneous Approach (ICD-10-PCS; 2023-10-25)
PROC: 02HV33Z Insertion of Infusion Device into Superior Vena Cava, Percutaneous Approach (ICD-10-PCS; 2023-11-04)
PROC: 06PYX3Z Removal of Infusion Device from Lower Vein, External Approach (ICD-10-PCS; 2023-11-04)
PROC: 0W9G3ZZ Drainage of Peritoneal Cavity, Percutaneous Approach (ICD-10-PCS; 2023-11-05)
PROC: 02HV33Z Insertion of Infusion Device into Superior Vena Cava, Percutaneous Approach (ICD-10-PCS; 2023-11-08)
DX: A41.9 Sepsis, unspecified organism (principal); N17.0 Acute kidney failure with tubular necrosis; J96.01 Acute respiratory failure with hypoxia; K76.7 Hepatorenal syndrome; J69.0 Pneumonitis due to inhalation of food and vomit; R65.21 Severe sepsis with septic shock; G93.41 Metabolic encephalopathy; J15.1 Pneumonia due to Pseudomonas; J44.0 Chronic obstructive pulmonary disease with (acute) lower respiratory infection; J91.8 Pleural effusion in other conditions classified elsewhere; D61.818 Other pancytopenia; I13.0 Hypertensive heart and chronic kidney disease with heart failure and stage 1 through stage 4 chronic kidney disease, or unspecified chronic kidney disease; E87.3 Alkalosis; E27.40 Unspecified adrenocortical insufficiency; E87.1 Hypo-osmolality and hyponatremia; I50.32 Chronic diastolic (congestive) heart failure; J98.11 Atelectasis; K70.40 Alcoholic hepatic failure without coma; K70.31 Alcoholic cirrhosis of liver with ascites; E11.649 Type 2 diabetes mellitus with hypoglycemia without coma; E11.22 Type 2 diabetes mellitus with diabetic chronic kidney disease; F10.20 Alcohol dependence, uncomplicated; N18.32 Chronic kidney disease, stage 3b; Z79.4 Long term (current) use of insulin; Z99.2 Dependence on renal dialysis; E83.39 Other disorders of phosphorus metabolism; D63.8 Anemia in other chronic diseases classified elsewhere; R13.13 Dysphagia, pharyngeal phase; E03.9 Hypothyroidism, unspecified; I34.0 Nonrheumatic mitral (valve) insufficiency; I25.10 Atherosclerotic heart disease of native coronary artery without angina pectoris; S10.93XA Contusion of unspecified part of neck, initial encounter; E87.6 Hypokalemia; E87.5 Hyperkalemia; R23.3 Spontaneous ecchymoses; L29.9 Pruritus, unspecified; S31.809A Unspecified open wound of unspecified buttock, initial encounter; S41.112A Laceration without foreign body of left upper arm, initial encounter; S41.111A Laceration without foreign body of right upper arm, initial encounter; Z79.899 Other long term (current) drug therapy; Z87.891 Personal history of nicotine dependence
CPT/HCPCS: 31500; 36415; 36558; 36600; 49083; 70450; 71045; 74018; 74230; 76705; 76770; 76937; 77001; 80048; 80053; 82140; 82533; 82805; 83036; 83605; 83735; 83880; 84100; 84132; 84157; 84439; 84443; 84484; 85025; 85027; 85610; 85730; 86022; 86706; 86850; 86900; 86901; 87040; 87070; 87075; 87077; 87186; 87205; 87340; 89050; 90935; 93005; 94002; 94003; 94640; 94760; 96361; 96374; 96375; 96376; 99291

== ENCOUNTER 2023-11-10 14:42 | Emergency (ER) | payer MEDICARE, OTHER ==
[2023-11-10 14:58] VITALS: TEMP 98.3
[2023-11-10 15:39] LABS: Anisocytosis Slight; Basophils % (A) 0 %; Eosinophils % (A) 1 %; HCT 22.6 % (39.0-53.0); HGB 7.4 gm/dL (13.0-17.5); Hypochromasia Moderate; Lymphocytes # (A) 0.6 k/uL (1.0-4.8); Lymphocytes % (A) 23 %; MCH 35.4 pg (25.0-35.0); MCHC 32.8 g/dL (31.0-37.0); MCV 108.2 fL (80.0-100.0); Macrocytosis Marked; Mean Platelet Volume 8.4; Monocytes # (A) 0.1 k/uL (0-1.0); Monocytes % (A) 5 %; Neutrophils # (A) 1.6 k/uL (1.3-7.7); Neutrophils % (A) 68 %; RBC 2.09 m/uL (4.30-5.90); WBC 2.4 k/uL (3.8-10.6)
--- NOTE | 2023-11-10 15:45 | XR ---
EXAMINATION TYPE: XR chest 2V DATE OF EXAM: 11/10/2023 3:33 PM CLINICAL INDICATION:Male, 63 years old with history of difficulty breathing; [facility] COMPARISON: Chest radiographs from 11/09/2023. TECHNIQUE: XR chest 2V Frontal and lateral views of the chest. FINDINGS: Lungs/Pleura: Small right pleural effusion. There is no evidence of left pleural effusion, focal cons olidation, or pneumothorax. Pulmonary vascularity: Unremarkable. Heart/mediastinum: Cardiomediastinal silhouette is enlarged and stable. Musculoskeletal: No acute osseous pathology. Other findings: None Lines/Tubes: Right internal jugular central venous catheter with distal tip at the cavoatrial junction. IMPRESSION: Cardiomegaly and mild pulmonary vascular congestion. Correlate with BNP for congestive heart failure. Small right pleural effusion.
[2023-11-10 15:46] LABS: Platelet Count 63 k/uL (150-450)
[2023-11-10 15:48] LABS: ALT 20 U/L (4-49); AST 36 U/L (17-59); African American GFR (CKD) 47 (>60 ml/min/1.73 sqM); Albumin 2.7 g/dL (3.5-5.0); Alkaline Phosphatase 149 U/L (38-126); Anion Gap 5 mmol/L; Blood Urea Nitrogen 25 mg/dL (9-20); Calcium 7.6 mg/dL (8.4-10.2); Carbon Dioxide 26 mmol/L (22-30); Chloride 98 mmol/L (98-107); Glucose 278 mg/dL (74-99); Non-African American GFR(CKD) 41 (>60 ml/min/1.73 sqM); Potassium 3.9 mmol/L (3.5-5.1); Sodium 129 mmol/L (137-145); Total Bilirubin 0.5 mg/dL (0.2-1.3); Total Protein 5.3 g/dL (6.3-8.2)
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
[2023-11-10 15:56] LABS: NT-Pro-B-Type Natriuretic Pept 1690 pg/mL
[2023-11-10 16:21] VITALS: RESP 18
[2023-11-10] MEDS: MIDODRINE 5 MG TAB PO STA (17:45)
[2023-11-10 18:13] VITALS: BP 95/65; PULSE 99
== END 2023-11-10 18:19 | disposition home or self-care (01) ==
LOC: EC 14:42
DX: R06.02 Shortness of breath (principal); R09.02 Hypoxemia; E11.22 Type 2 diabetes mellitus with diabetic chronic kidney disease; N18.6 End stage renal disease; I50.9 Heart failure, unspecified; I25.10 Atherosclerotic heart disease of native coronary artery without angina pectoris; J44.9 Chronic obstructive pulmonary disease, unspecified; F17.210 Nicotine dependence, cigarettes, uncomplicated; Z20.822 Contact with and (suspected) exposure to COVID-19; Z79.4 Long term (current) use of insulin; Z79.899 Other long term (current) drug therapy; Z99.2 Dependence on renal dialysis
CPT/HCPCS: 36415; 71046; 80053; 83605; 83880; 84484; 85025; 87636; 93005; 99285

== ENCOUNTER 2023-11-14 08:56 | Day surgery (SDC) | payer MEDICARE, OTHER ==
[2023-11-14 09:33] VITALS: RESP 20; TEMP 97.7
[2023-11-14 10:05] LABS: INR 0.9 (<1.2); Prothrombin Time 10.4 sec (10.0-12.5)
[2023-11-14 10:09] LABS: Mean Platelet Volume 8.6
[2023-11-14 10:10] LABS: African American GFR (CKD) 47 (>60 ml/min/1.73 sqM); Glucose 246 mg/dL (74-99); Non-African American GFR(CKD) 41 (>60 ml/min/1.73 sqM)
[2023-11-14 10:11] LABS: Platelet Count 63 k/uL (150-450)
[2023-11-14] MEDS: ALBUMIN HUMAN 25% 50 ML in EMPTY BAG 1 BAG IVPB SCH (10:42)
--- NOTE | 2023-11-14 12:15 | US ---
Ultrasound-guided paracentesis. DATE OF EXAM: 11/14/2023 CLINICAL HISTORY: Ascites The procedure was discussed with the patient. The risks, complications, benefits, and alternatives we re discussed and any questions were answered. Informed consent was obtained. The patient was placed s upine on the ultrasound table and prepped and draped in the usual sterile fashion. All elements of maximal barrier technique were utilized. Under ultrasound guidance, access into the right lower quadrant was obtained, via the paracentesis catheter system and direct ultrasound guidanc e. Approximately 7.2 liters of straw-colored fluid was removed. The patient was stable throughout the pr ocedure and remained stable upon discharge from Department of Radiology. IMPRESSION: Successful paracentesis under ultrasound guidance.
[2023-11-14 12:43] VITALS: BP 83/52; PULSE 78
== END 2023-11-14 12:00 ==
LOC: RADPROMAIN 08:56
PROVIDERS: ATTEND Internal Medicine
DX: R18.8 Other ascites (principal)
CPT/HCPCS: 82565; 82947; 85049; 85610; 36415; 49083; P9047

== ENCOUNTER 2023-11-26 08:24 | Day surgery (SDC) | payer MEDICARE, OTHER ==
[2023-11-26 09:12] VITALS: TEMP 98.1
[2023-11-26 09:17] LABS: Mean Platelet Volume 9.8
[2023-11-26 09:25] LABS: Platelet Count 104 k/uL (150-450)
[2023-11-26 09:39] LABS: African American GFR (CKD) 35 (>60 ml/min/1.73 sqM); Glucose 190 mg/dL (74-99); Non-African American GFR(CKD) 30 (>60 ml/min/1.73 sqM)
[2023-11-26 09:40] LABS: INR 0.9 (<1.2); Prothrombin Time 10.4 sec (10.0-12.5)
[2023-11-26] MEDS: ALBUMIN HUMAN 25% 50 ML in EMPTY BAG 1 BAG IVPB SCH (10:44)
[2023-11-26 11:34] VITALS: BP 122/83; PULSE 70; RESP 16
--- NOTE | 2023-11-26 13:14 | US ---
EXAMINATION TYPE: US paracentesis abd w/image DATE OF EXAM: 11/26/2023 CLINICAL HISTORY: 63-year-old male K74.60, unspecified cirrhosis of liver The procedure was discussed with the patient. The risks, complications, benefits, and alternatives we re discussed and any questions were answered. Informed consent was obtained. The patient was placed s upine on the ultrasound table and prepped and draped in the usual sterile fashion. All elements of maximal barrier technique were utilized. Ultrasound was utilized to determine the precise skin entry site along the right lower quadrant/right flank. A 5 Thai One-Step catheter and trocar technique was utilized to access the ascites collection under direct ultrasound guidance. Approximately 6.7 liters of clear, straw-colored fluid was removed. Catheter was removed, hemostasis obtained, and a dressing placed. The patient was stable throughout the procedure and remained stable upon discharge from Department of Radiology. IMPRESSION: Successful therapeutic paracentesis under ultrasound guidance. 6.7 L of fluid removed.
== END 2023-11-26 11:13 | disposition home health service (06) ==
LOC: RADPROMAIN 08:24
PROVIDERS: ATTEND Internal Medicine
DX: K74.60 Unspecified cirrhosis of liver (principal)
CPT/HCPCS: 82565; 82947; 85049; 85610; 36415; 49083; P9047

== ENCOUNTER 2023-12-17 04:15 | Inpatient (IN) | payer MEDICARE, OTHER ==
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
[2023-12-17] MEDS: IPRATROPIUM-ALBUTEROL 3 ML NEB INHALATION STA (04:35)
[2023-12-17] MEDS: SODIUM CHLORIDE 0.9% 1,000 ML IV STA (04:44)
--- NOTE | 2023-12-17 05:02 | XR ---
EXAMINATION TYPE: XR chest 1V portable DATE OF EXAM: 12/17/2023 COMPARISON: Prior chest x-ray November 10, 2023 HISTORY: Shortness of breath TECHNIQUE: Single frontal view of the chest is obtained. FINDINGS: Persistent low lung volumes and right basilar opacity. Left lung remains clear. The cardi ac silhouette size is stable and within normal limits. The osseous structures are intact. IMPRESSION: Persistent low lung volumes and right basilar opacity favoring scarring and/or atelectas is. No new acute pulmonary infiltrate.
[2023-12-17 05:13] LABS: Anisocytosis Slight; Basophils % (A) 0 %; Eosinophils # (A) 0.1 k/uL (0-0.7); Eosinophils % (A) 1 %; HCT 26.6 % (39.0-53.0); HGB 8.6 gm/dL (13.0-17.5); Lymphocytes # (A) 0.7 k/uL (1.0-4.8); Lymphocytes % (A) 15 %; MCH 33.3 pg (25.0-35.0); MCHC 32.3 g/dL (31.0-37.0); Macrocytosis Moderate; Mean Platelet Volume 9.7; Monocytes # (A) 0.2 k/uL (0-1.0); Monocytes % (A) 5 %; Neutrophils # (A) 3.8 k/uL (1.3-7.7); Neutrophils % (A) 78 %; RBC 2.59 m/uL (4.30-5.90); RDW 19.1 % (11.5-15.5); WBC 4.9 k/uL (3.8-10.6)
[2023-12-17 05:15] LABS: MCV 102.8 fL (80.0-100.0); Platelet Count 96 k/uL (150-450)
[2023-12-17 05:17] LABS: ALT 21 U/L (4-49); AST 23 U/L (17-59); African American GFR (CKD) 34 (>60 ml/min/1.73 sqM); Alkaline Phosphatase 153 U/L (38-126); Anion Gap 9 mmol/L; Blood Urea Nitrogen 73 mg/dL (9-20); Calcium 8.1 mg/dL (8.4-10.2); Carbon Dioxide 28 mmol/L (22-30); Chloride 95 mmol/L (98-107); Glucose 247 mg/dL (74-99); Lipase 12 U/L (23-300); Magnesium 1.8 mg/dL (1.6-2.3); Non-African American GFR(CKD) 30 (>60 ml/min/1.73 sqM); Sodium 132 mmol/L (137-145); Total Bilirubin 0.6 mg/dL (0.2-1.3); Total Protein 5.8 g/dL (6.3-8.2)
[2023-12-17 05:18] LABS: Lactic Acid, Venous 1.8 mmol/L (0.7-2.0)
[2023-12-17 05:25] LABS: NT-Pro-B-Type Natriuretic Pept 3040 pg/mL
[2023-12-17 05:27] LABS: INR 0.9 (<1.2); Partial Thromboplastin Time 22.8 sec (22.0-30.0); Prothrombin Time 10.5 sec (10.0-12.5)
[2023-12-17 05:35] LABS: Potassium 2.7 mmol/L (3.5-5.1)
[2023-12-17] MEDS ORDERED: ONDANSETRON 4 MG/2 ML VIAL IVP PRN (05:45)
[2023-12-17] MEDS ORDERED: NALOXONE 0.4 MG/ML 1 ML VIAL IV PRN (05:45)
[2023-12-17] MEDS: SODIUM CHLORIDE 0.9% 1,000 ML IV SCH (05:48)
[2023-12-17] MEDS ORDERED: POTASSIUM CHLORIDE ER 20 MEQ TAB.ER PO STA (06:22)
[2023-12-17] MEDS: MAGNESIUM OXIDE 400 MG TAB PO STA (06:36)
[2023-12-17] MEDS: POTASSIUM BICARBONATE/CIT AC 20 MEQ TABLET.EFF PO ONE (06:36)
[2023-12-17] MEDS ORDERED: DEXTROSE 50% SYRINGE 50 ML IVP PRN ×2 (09:35)
[2023-12-17 09:53] LABS: Glucose,Whole Blood 162 mg/dL (70-110)
[2023-12-17] MEDS: SPIRONOLACTONE 25 MG TAB PO SCH (10:31)
[2023-12-17] MEDS: MIDODRINE 5 MG TAB PO SCH (10:33)
[2023-12-17] MEDS: LEVOTHYROXINE 100 MCG TAB PO SCH (10:33)
[2023-12-17] MEDS: TORSEMIDE 20 MG TAB PO SCH (10:41)
[2023-12-17] MEDS: HYDROCORTISONE 10 MG TAB PO SCH (10:41)
[2023-12-17] MEDS: PANTOPRAZOLE 40 MG TABLET PO SCH (10:41)
[2023-12-17] MEDS: ALPRAZolam 0.25 MG TAB PO SCH (10:45)
[2023-12-17] MEDS: LACTULOSE 20 GM/30 ML CUP PO SCH (10:48)
[2023-12-17] MEDS: ALBUTEROL NEBULIZED 2.5 MG/3 ML INHALATION SCH (11:18)
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
[2023-12-17 12:20] LABS: Glucose,Whole Blood 261 mg/dL (70-110)
[2023-12-17] MEDS: INSULIN ASPART (NovoLOG) 100 UNIT/ML VIAL SQ SCH (12:30)
[2023-12-17] MEDS: CALCIUM ACETATE 667 MG TAB PO SCH (12:30)
[2023-12-17] MEDS: FUROSEMIDE 10 MG/ML 10 ML VIAL IV SCH (12:31)
[2023-12-17 12:50] LABS: ALT 19 U/L (4-49); AST 21 U/L (17-59); African American GFR (CKD) 38 (>60 ml/min/1.73 sqM); Albumin 2.4 g/dL (3.5-5.0); Albumin/Globulin Ratio 0.9; Alkaline Phosphatase 115 U/L (38-126); Anion Gap 8 mmol/L; Blood Urea Nitrogen 73 mg/dL (9-20); Calcium 7.7 mg/dL (8.4-10.2); Carbon Dioxide 27 mmol/L (22-30); Chloride 96 mmol/L (98-107); Globulin 2.7 g/dL; Glucose 210 mg/dL (74-99); Non-African American GFR(CKD) 33 (>60 ml/min/1.73 sqM); Sodium 131 mmol/L (137-145); Total Bilirubin 0.5 mg/dL (0.2-1.3); Total Protein 5.1 g/dL (6.3-8.2)
[2023-12-17 12:56] LABS: Potassium 2.7 mmol/L (3.5-5.1)
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
[2023-12-17] MEDS ORDERED: Potassium Replacement Protocol 1 EACH MISC MISCELLANE PRN (15:24)
[2023-12-17] MEDS: POTASSIUM CHLORIDE ER 20 MEQ TAB.ER PO ONE (16:11)
[2023-12-17] MEDS: POTASSIUM CHLORIDE 10 MEQ in WATER FOR INJECTION 1 100ML.BAG IVPB SCH (16:13)
[2023-12-17 17:30] LABS: Glucose,Whole Blood 276 mg/dL (70-110)
[2023-12-17 18:40] LABS: % Iron Saturation 17.18 (15.00-50.00); Iron 39 UG/DL (65-175); Total Iron Binding Capacity 227 UG/DL (228-460)
[2023-12-17] MEDS: HYDROmorphone 1 MG/ML 1 ML SYRINGE IVP PRN (19:27)
[2023-12-17 20:59] LABS: Glucose,Whole Blood 325 mg/dL (70-110)
[2023-12-17] MEDS: FLUTICASONE 110 MCG INHALER INHALATION SCH (21:00)
[2023-12-17] MEDS: HYDROCORTISONE 20 MG TAB PO SCH (21:32)
[2023-12-17] MEDS: ATORVASTATIN 20 MG TAB PO SCH (21:32)
[2023-12-17] MEDS: INSULIN DETEMIR (LEVEMIR) 100 UNIT/ML SYR SQ SCH (21:33)
[2023-12-18] MEDS ORDERED: Potassium Replacement Protocol 1 EACH MISC MISCELLANE PRN (00:47)
[2023-12-18] MEDS: POTASSIUM CHLORIDE ER 20 MEQ TAB.ER PO SCH ×2 (01:08→23:09)
[2023-12-18 07:34] LABS: Glucose,Whole Blood 232 mg/dL (70-110)
[2023-12-18 08:24] LABS: Basophils # (A) 0.01 X 10*3/uL (0.00-0.10); Basophils % (A) 0.2 %; Eosinophils # (A) 0.02 X 10*3/uL (0.04-0.35); Eosinophils % (A) 0.4 %; HCT 23.5 % (39.6-50.0); HGB 7.6 g/dL (13.0-17.0); Lymphocytes # (A) 0.51 X 10*3/uL (0.90-5.00); Lymphocytes % (A) 10.9 %; MCH 33.5 pg (27.0-32.0); MCHC 32.3 g/dL (32.0-37.0); MCV 103.5 FL (80.0-97.0); Mean Platelet Volume 10.2 FL (9.5-12.2); Monocytes # (A) 0.28 X 10*3/uL (0.20-1.00); NRBC Per 100 WBC 0 X 10*3/uL (0.00-0.01); Neutrophils # (A) 3.86 X 10*3/uL (1.80-7.70); Neutrophils % (A) 82.1 %; Platelet Count 85 X 10*3/uL (140-440); RBC 2.27 X 10*6/uL (4.40-5.60); RDW 20.1 % (11.5-14.5)
[2023-12-18 08:50] LABS: Blood Urea Nitrogen 67.4 mg/dL (9.0-27.0); Carbon Dioxide 29.2 mmol/L (21.6-31.8); Chloride 96 mmol/L (96-109); Glucose 210 mg/dL (70-110); Magnesium 1.7 mg/dL (1.5-2.4); Phosphorus 4.6 mg/dL (2.4-5.1); Potassium 3.3 mmol/L (3.5-5.5); Sodium 137 mmol/L (135-145); Total Protein 5.1 g/dL (6.2-8.2)
[2023-12-18 08:51] LABS: ALT 18 U/L (10-49); AST 19 U/L (14-35); Albumin/Globulin Ratio 1.43 Ratio (1.60-3.17); Alkaline Phosphatase 97 U/L (41-126); Globulin 2.1 g/dL (1.6-3.3); Total Bilirubin 0.3 mg/dL (0.3-1.2)
[2023-12-18] MEDS: POTASSIUM CHLORIDE ER 20 MEQ TAB.ER PO STA (09:49)
--- NOTE | 2023-12-18 11:49 | P.PN ---
Subjective Patient is seen in follow-up for chronic kidney disease. Renal function stable. Admits to good urine output. Denies chest pain or shortness of breath. Scheduled for paracentesis today. Vital signs are stable. General: No acute distress. HEENT: Head exam is unremarkable. On nasal cannula. LUNGS: No audible rhonchi or wheezes. HEART: Rate and Rhythm are regular. ABDOMEN: Distention noted. EXTREMITITES: 2+ edema. Objective - Vital Signs Vital signs: Vital Signs Temp 97.5 F L 12/18/23 07:29 Pulse 61 12/18/23 11:40 Resp 17 12/18/23 07:29 BP 109/52 12/18/23 07:29 Pulse Ox 96 12/18/23 08:13 FiO2 Intake & Output 12/17/23 12/18/23 12/18/23 18:59 06:59 18:59 Intake Total 300 360 Output Total 500 Balance -200 360 Weight 84.822 kg Intake: Intake, IV Titration 200 Amount Sodium Chloride 0.9% 1, 200 000 ml @ 20 mls/hr IV . Q24H [facility] Rx#:[id number] Oral 100 360 Output: Urine 500 Other: Voiding Method Diaper Diaper External Catheter External Catheter # Voids 1 # Bowel Movements 1 - Labs CBC & Chem 7: 12/18/23 05:37 12/18/23 05:37 Labs: Abnormal Lab Results - Last 24 Hours (Table) 12/17/23 12/17/23 12/17/23 Range/Units 11:58 11:58 12:18 RBC (4.40-5.60) X 10*6/uL Hgb (13.0-17.0) g/dL Hct (39.6-50.0) % MCV (80.0-97.0) FL MCH (27.0-32.0) pg RDW (11.5-14.5) % Plt Count (140-440) X 10*3/uL Lymphocytes # (0.90-5.00) X 10*3/uL Eosinophils # (0.04-0.35) X 10*3/uL Sodium 131 L (137-145) mmol/L Potassium 2.7 L* (3.5-5.1) mmol/L Chloride 96 L (98-107) mmol/L BUN 73 H (9-20) mg/dL Creatinine 2.09 H (0.66-1.25) mg/dL Est GFR (CKD-EPI) (>=60) BUN/Creatinine Ratio (12.00-20.00) Ratio Glucose 210 H (74-99) mg/dL POC Glucose (mg/dL) 261 H (70-110) mg/dL Hemoglobin A1c (<=6.0) % Calcium 7.7 L (8.4-10.2) mg/dL Iron 39 L 38 L (65-175) UG/DL TIBC 227 L (228-460) UG/DL Transferrin 162.0 L (204.0-354.0) mg/dL Ferritin 402.0 H (22.0-322.0) ng/mL Total Protein 5.1 L (6.3-8.2) g/dL Albumin 2.4 L (3.5-5.0) g/dL Albumin/Globulin Ratio (1.60-3.17) Ratio 12/17/23 12/17/23/ Range/Units 17:29 20:15 20:57 RBC (4.40-5.60) X 10*6/uL Hgb (13.0-17.0) g/dL Hct (39.6-50.0) % MCV (80.0-97.0) FL MCH (27.0-32.0) pg RDW (11.5-14.5) % Plt Count (140-440) X 10*3/uL Lymphocytes # (0.90-5.00) X 10*3/uL Eosinophils # (0.04-0.35) X 10*3/uL Sodium (137-145) mmol/L Potassium 3.1 L (3.5-5.1) mmol/L Chloride (98-107) mmol/L BUN (9-20) mg/dL Creatinine (0.66-1.25) mg/dL Est GFR (CKD-EPI) (>=60) BUN/Creatinine Ratio (12.00-20.00) Ratio Glucose (74-99) mg/dL POC Glucose (mg/dL) 276 H 325 H (70-110) mg/dL Hemoglobin A1c (<=6.0) % Calcium (8.4-10.2) mg/dL Iron (65-175) UG/DL TIBC (228-460) UG/DL Transferrin (204.0-354.0) mg/dL Ferritin (22.0-322.0) ng/mL Total Protein (6.3-8.2) g/dL Albumin (3.5-5.0) g/dL Albumin/Globulin Ratio (1.60-3.17) Ratio 12/18/23 12/18/23 12/18/23 Range/Units 05:37 05:37 05:37 RBC 2.27 L (4.40-5.60) X 10*6/uL Hgb 7.6 L (13.0-17.0) g/dL Hct 23.5 L (39.6-50.0) % MCV 103.5 H (80.0-97.0) FL MCH 33.5 H (27.0-32.0) pg RDW 20.1 H (11.5-14.5) % Plt Count 85 L (140-440) X 10*3/uL Lymphocytes # 0.51 L (0.90-5.00) X 10*3/uL Eosinophils # 0.02 L (0.04-0.35) X 10*3/uL Sodium (137-145) mmol/L Potassium 3.3 L (3.5-5.1) mmol/L Chloride (98-107) mmol/L BUN 67.4 H (9-20) mg/dL Creatinine 2.1 H (0.66-1.25) mg/dL Est GFR (CKD-EPI) 35 L (>=60) BUN/Creatinine Ratio 32.10 H (12.00-20.00) Ratio Glucose 210 H (74-99) mg/dL POC Glucose (mg/dL) (70-110) mg/dL Hemoglobin A1c 7.5 H (<=6.0) % Calcium 8.0 L (8.4-10.2) mg/dL Iron (65-175) UG/DL TIBC (228-460) UG/DL Transferrin (204.0-354.0) mg/dL Ferritin (22.0-322.0) ng/mL Total Protein 5.1 L (6.3-8.2) g/dL Albumin 3.0 L (3.5-5.0) g/dL Albumin/Globulin Ratio 1.43 L (1.60-3.17) Ratio // Range/Units 07:31 RBC (4.40-5.60) X 10*6/uL Hgb (13.0-17.0) g/dL Hct (39.6-50.0) % MCV (80.0-97.0) FL MCH (27.0-32.0) pg RDW (11.5-14.5) % Plt Count (140-440) X 10*3/uL Lymphocytes # (0.90-5.00) X 10*3/uL Eosinophils # (0.04-0.35) X 10*3/uL Sodium (137-145) mmol/L Potassium (3.5-5.1) mmol/L Chloride (98-107) mmol/L BUN (9-20) mg/dL Creatinine (0.66-1.25) mg/dL Est GFR (CKD-EPI) (>=60) BUN/Creatinine Ratio (12.00-20.00) Ratio Glucose (74-99) mg/dL POC Glucose (mg/dL) 232 H (70-110) mg/dL Hemoglobin A1c (<=6.0) % Calcium (8.4-10.2) mg/dL Iron (65-175) UG/DL TIBC (228-460) UG/DL Transferrin (204.0-354.0) mg/dL Ferritin (22.0-322.0) ng/mL Total Protein (6.3-8.2) g/dL Albumin (3.5-5.0) g/dL Albumin/Globulin Ratio (1.60-3.17) Ratio Assessment and Plan Plan: Assessment: 1. Chronic kidney disease stage IIIb with creatinine now in the range of 2-3. Etiology is ATN from septic shock in September 2023 as well as hepatorenal syndro me. Creatinine in September 2023 was as low as near 1. 2. Volume overload. Improving with diuresis. 3. Alcohol induced liver cirrhosis. 4. Acute on chronic diastolic CHF with moderate mitral regurgitation. 5. History of adrenal sufficiency maintained on Cortef. 6. Hypokalemia from diuresis. 7. Hypervolemic hyponatremia. Better. 8. Diabetes mellitus. 9. Anemia of chronic kidney disease. Iron deficiency noted. Plan: Maintain IV Lasix. Increase spironolactone to 25 mg twice daily. Low-salt diet and 1200 cc fluid restriction. Replace potassium. Paracentesis today. 25 g IV albumin pre and post paracentesis. Continue to monitor renal function and urine output. Add IV iron.
[2023-12-18] MEDS: ALBUMIN HUMAN 25% 50 ML in EMPTY BAG 1 BAG IVPB SCH (11:55)
[2023-12-18] MEDS: SODIUM FERRIC GLUCONAT-SUCROSE 125 MG in SODIUM CHLORIDE 0.9% 100 ML IVPB SCH (12:17)
[2023-12-18 12:26] LABS: Glucose,Whole Blood 137 mg/dL (70-110)
--- NOTE | 2023-12-18 12:28 | P.PN ---
Subjective Progress Note Date: 12/18/23 * 63-year-old gentleman with past medical history significant for diabetes mellitus, history of decompensated liver cirrhosis, chronic congestive heart failure diastolic dysfunction, adrenal insufficiency, chronic kidney disease stage IIIb, recent hospitalization in October 2023 for Pseudomonas pneumonia and septic shock, history of COPD, coronary artery disease, presents to the emergency department with complaints of shortness of breath, abdominal discomfort. Patient was recently discharged in the middle of October to rehab facility. During previous hospitalization patient was monitored for hepatorenal syndrome and was seen by nephrology, pulmonary medicine * Patient states he was discharged to rehab for a short while however he went home after that and since then he has been having weakness and shortness of breath and worsening abdominal distention * Workup initiated in ER included CBC which showed WBC 4.9 hemoglobin 8.6 platelet count of 96, INR of 0.9 * Serum chemistry obtained sodium 132 potassium 2.7 chloride 95 BUN 73 creatinine 2.29 calcium 8.1 lactate 1.8 albumin of 3 lipase of 12 * Chest x-ray obtained in ER showed persistent low lung volumes no acute pulmonary infiltrate noted * While in ER patient was noted to have severe hypokalemia and potassium was replaced, IR has been consulted for therapeutic paracentesis * 12/18/2023: Patient seen and evaluated at bedside, plan for paracentesis, potassium replaced nephrology following, continue patient on IV Lasix, patient states he feels better however abdomen still distended. Will follow-up on renal profile and CBC REVIEW OF SYSTEMS: Shortness of breath, abdominal discomfort, abdominal d istention CONSTITUTIONAL: No fever, no malaise, no fatigue. HEENT: No recent visual problems or hearing problems. Denied any sore throat. CARDIOVASCULAR: No chest pain, orthopnea, PND, no palpitations, no syncope. PULMONARY: No shortness of breath, no cough, no hemoptysis. GASTROINTESTINAL:Shortness of breath, abdominal discomfort, abdominal distention NEUROLOGICAL: No headaches, no weakness, no numbness. HEMATOLOGICAL: Denies any bleeding or petechiae. GENITOURINARY: Denies any burning micturition, frequency, or urgency. MUSCULOSKELETAL/RHEUMATOLOGICAL: Denies any joint pain, swelling, or any muscle pain. ENDOCRINE: Denies any polyuria or polydipsia. PHYSICAL EXAMINATION: GENERAL: The patient is alert and oriented x3, nasal cannula in place, ill appearance HEENT: Pupils are round and equally reacting to light. EOMI. CARDIOVASCULAR: S1 and S2 present. Lower extremity edema PULMONARY: Chest is clear to auscultation, no wheezing or crackles. ABDOMEN: Soft, nontender, distended, MUSCULOSKELETAL: No joint swelling or deformity. EXTREMITIES: No cyanosis, clubbing, or pedal edema. NEUROLOGICAL: Gross neurological examination did not reveal any focal deficits. Assessment and plan * Decompensated liver cirrhosis with recurrent ascites * Acute exacerbation of COPD * Acute renal failure on chronic kidney disease stage IV * Deficiency anemia * Adrenal insufficiency on chronic steroids * Diabetes mellitus insulin-dependent with HbA1c 7.5 * Acute hypoxemic respiratory failure * Coronary artery disease * Severe hypokalemia * Consult obtained from nephrology, pulmonary medicine * In regards to COPD exacerbation continue patient on breathing treatments continue patient on chronic steroids * In regards to abdominal ascites continue patient on IV Rocephin to complete 5- day course due to concern for peritonitis. * Regards to history of adrenal insufficiency continue patient on hydrocortisone. * In regards to diabetes mellitus, Accu-Cheks ACHS continue patient on correctional insulin continue patient on Lantus monitor for hypoglycemia * In regards to SAHARA and chronic kidney disease nephrology consulted, continue patient on midodrine, continue Lasix, Aldactone managed by nephrology * In regards to iron deficiency anemia continue patient on IV iron replacement * Status is full code Objective - Vital Signs Vital signs: Vital Signs Temp 97.5 F L 12/18/23 07:29 Pulse 84 12/18/23 07:29 Resp 17 12/18/23 07:29 BP 109/52 12/18/23 07:29 Pulse Ox 96 12/18/23 08:13 FiO2 Intake & Output 12/17/23 12/18/23 12/18/23 18:59 06:59 18:59 Intake Total 300 360 Output Total 500 Balance -200 360 Weight 84.822 kg Intake: Intake, IV Titration 200 Amount Sodium Chloride 0.9% 1, 200 000 ml @ 20 mls/hr IV . Q24H [facility] Rx#:[id number] Oral 100 360 Output: Urine 500 Other: Voiding Method Diaper Diaper External Catheter External Catheter # Voids 1 # Bowel Movements 1 - Labs CBC & Chem 7: 12/18/23 05:37 12/18/23 05:37 Labs: Abnormal Lab Results - Last 24 Hours (Table) 12/17/23 12/17/23 12/17/23 Range/Units 11:58 11:58 12:18 RBC (4.40-5.60) X 10*6/uL Hgb (13.0-17.0) g/dL Hct (39.6-50.0) % MCV (80.0-97.0) FL MCH (27.0-32.0) pg RDW (11.5-14.5) % Plt Count (140-440) X 10*3/uL Lymphocytes # (0.90-5.00) X 10*3/uL Eosinophils # (0.04-0.35) X 10*3/uL Sodium 131 L (137-145) mmol/L Potassium 2.7 L* (3.5-5.1) mmol/L Chloride 96 L (98-107) mmol/L BUN 73 H (9-20) mg/dL Creatinine 2.09 H (0.66-1.25) mg/dL Est GFR (CKD-EPI) (>=60) BUN/Creatinine Ratio (12.00-20.00) Ratio Glucose 210 H (74-99) mg/dL POC Glucose (mg/dL) 261 H (70-110) mg/dL Hemoglobin A1c (<=6.0) % Calcium 7.7 L (8.4-10.2) mg/dL Iron 39 L 38 L (65-175) UG/DL TIBC 227 L (228-460) UG/DL Transferrin 162.0 L (204.0-354.0) mg/dL Ferritin 402.0 H (22.0-322.0) ng/mL Total Protein 5.1 L (6.3-8.2) g/dL Albumin 2.4 L (3.5-5.0) g/dL Albumin/Globulin Ratio (1.60-3.17) Ratio 12/17/23 12/17/23 12/17/23 Range/Units 17:29 20:15 20:57 RBC (4.40-5.60) X 10*6/uL Hgb (13.0-17.0) g/dL Hct (39.6-50.0) % MCV (80.0-97.0) FL MCH (27.0-32.0) pg RDW (11.5-14.5) % Plt Count (140-440) X 10*3/uL Lymphocytes # (0.90-5.00) X 10*3/uL Eosinophils # (0.04-0.35) X 10*3/uL Sodium (137-145) mmol/L Potassium 3.1 L (3.5-5.1) mmol/L Chloride (98-107) mmol/L BUN (9-20) mg/dL Creatinine (0.66-1.25) mg/dL Est GFR (CKD-EPI) (>=60) BUN/Creatinine Ratio (12.00-20.00) Ratio Glucose (74-99) mg/dL POC Glucose (mg/dL) 276 H 325 H (70-110) mg/dL Hemoglobin A1c (<=6.0) % Calcium (8.4-10.2) mg/dL Iron (65-175) UG/DL TIBC (228-460) UG/DL Transferrin (204.0-354.0) mg/dL Ferritin (22.0-322.0) ng/mL Total Protein (6.3-8.2) g/dL Albumin (3.5-5.0) g/dL Albumin/Globulin Ratio (1.60-3.17) Ratio 12/18/23 12/18/23 12/18/23 Range/Units 05:37 05:37 05:37 RBC 2.27 L (4.40-5.60) X 10*6/uL Hgb 7.6 L (13.0-17.0) g/dL Hct 23.5 L (39.6-50.0) % MCV 103.5 H (80.0-97.0) FL MCH 33.5 H (27.0-32.0) pg RDW 20.1 H (11.5-14.5) % Plt Count 85 L (140-440) X 10*3/uL Lymphocytes # 0.51 L (0.90-5.00) X 10*3/uL Eosinophils # 0.02 L (0.04-0.35) X 10*3/uL Sodium (137-145) mmol/L Potassium 3.3 L (3.5-5.1) mmol/L Chloride (98-107) mmol/L BUN 67.4 H (9-20) mg/dL Creatinine 2.1 H (0.66-1.25) mg/dL Est GFR (CKD-EPI) 35 L (>=60) BUN/Creatinine Ratio 32.10 H (12.00-20.00) Ratio Glucose 210 H (74-99) mg/dL POC Glucose (mg/dL) (70-110) mg/dL Hemoglobin A1c 7.5 H (<=6.0) % Calcium 8.0 L (8.4-10.2) mg/dL Iron (65-175) UG/DL TIBC (228-460) UG/DL Transferrin (204.0-354.0) mg/dL Ferritin (22.0-322.0) ng/mL Total Protein 5.1 L (6.3-8.2) g/dL Albumin 3.0 L (3.5-5.0) g/dL Albumin/Globulin Ratio 1.43 L (1.60-3.17) Ratio // Range/Units 07:31 RBC (4.40-5.60) X 10*6/uL Hgb (13.0-17.0) g/dL Hct (39.6-50.0) % MCV (80.0-97.0) FL MCH (27.0-32.0) pg RDW (11.5-14.5) % Plt Count (140-440) X 10*3/uL Lymphocytes # (0.90-5.00) X 10*3/uL Eosinophils # (0.04-0.35) X 10*3/uL Sodium (137-145) mmol/L Potassium (3.5-5.1) mmol/L Chloride (98-107) mmol/L BUN (9-20) mg/dL Creatinine (0.66-1.25) mg/dL Est GFR (CKD-EPI) (>=60) BUN/Creatinine Ratio (12.00-20.00) Ratio Glucose (74-99) mg/dL POC Glucose (mg/dL) 232 H (70-110) mg/dL Hemoglobin A1c (<=6.0) % Calcium (8.4-10.2) mg/dL Iron (65-175) UG/DL TIBC (228-460) UG/DL Transferrin (204.0-354.0) mg/dL Ferritin (22.0-322.0) ng/mL Total Protein (6.3-8.2) g/dL Albumin (3.5-5.0) g/dL Albumin/Globulin Ratio (1.60-3.17) Ratio
--- NOTE | 2023-12-18 13:58 | P.PN ---
Subjective Progress Note Date: 12/18/23 This is a 63-year-old male patient with a known history of cirrhosis with recurrent ascites requiring multiple paracentesis. He also had recently developed acute kidney injury requiring hemodialysis however while he was at the [facility] in [place] he inadvertently had pulled out his cath eter and his last hemodialysis session was December 04, 2023. He had been here for an extended stay back in October 2023. He had undergone large-volume paracentesis on October 25, 2023 with 6.2 L removed no evidence of SBP. A second paracentesis was performed on 11/05/2023 with another 3 L removed. Unclear whether he had any further paracentesis in the outpatient setting. The patient is somewhat of a poor historian. He does have a history of alcoholism, chronic obstructive pulmonary disease, diabetes mellitus type 2, coronary artery disease, hypothyroidism, anemia of chronic disease, chronic thrombocytopenia. He also has a history of Pseudomonas aeruginosa tracheobronchitis previously tr eated with Zosyn. He presented here to the emergency room earlier this morning with increasing shortness of breath. Significant abdominal distention. Chest x-ray shows persistent low lung volumes and right basilar opacity favoring scarring or atelectasis. No acute pulmonary infiltrates. No significant pleural effusions. White count 4.9. Hemoglobin 8.6. Platelets 96,000. INR 0.9. Sodium 132. Potassium 2.7. Bicarb 28. BUN 73. Creatinine 2.29. Glucose 247. AST 23. ALT 21. proBNP 3040. Troponin opponent negative x 1. He has been initiated on Lasix 60 mg IV every 12 hours per nephrology. Continued on Aldactone. He is seen today in consultation in the emergency department. He is currently sitting up on a stretcher. Awake and alert in no acute distress. Denies any worsening shortness of breath, cough or congestion. He is maintaining O2 saturation in the 90s on 3 L/min per nasal cannula. Potassium being replaced. The patient is seen today December 18, 2023 in follow-up on the regular medical floor. He is currently resting in bed. Awake and alert in no acute distress. Containing good O2 saturations in the 90s on room air. He is afebrile. Hemodynamically stable. No worsening shortness of breath, cough or congestion. He is still awaiting a paracentesis to be done. White count 4.7. Hemoglobin 7.6. Platelets 85,000. Sodium 137. Potassium 3.3. Bicarb 29. BUN 67. Creatinine 2.1. Glucose 210. He remains on ceftriaxone. Initiated on iron replacement. Remains on IV diuretics 60 mg every 12 hours and Aldactone per nephrology. Continued on hydrocortisone. He is making urine. Remains on a 1200 cc fluid restriction diet. Objective - Vital Signs Vital signs: Vital Signs Temp 97.8 F 12/18/23 12:47 Pulse 89 12/18/23 13:45 Resp 18 12/18/23 13:45 BP 106/60 12/18/23 13:45 Pulse Ox 97 12/18/23 13:45 FiO2 Intake & Output 12/17/23 12/18/23 12/18/23 18:59 06:59 18:59 Intake Total 300 360 Output Total 500 Balance -200 360 Weight 84.822 kg Intake: Intake, IV Titration 200 Amount Sodium Chloride 0.9% 1, 200 000 ml @ 20 mls/hr IV . Q24H [facility] Rx#:[id number] Oral 100 360 Output: Urine 500 Other: Voiding Method Diaper Diaper External Catheter External Catheter # Voids 1 # Bowel Movements 1 - Exam GENERAL EXAM: Alert, 63-year-old male patient, on room air, fairly comfortable in no apparent distress. HEAD: Normocephalic. EYES: Normal reaction of pupils, equal size. NOSE: Clear with pink turbinates. THROAT: No erythema or exudates. NECK: No masses, no JVD. CHEST: No chest wall deformity. LUNGS: Equal air entry with crackles in the right lung base. CVS: S1 and S2 normal with no audible murmur, regular rhythm. ABDOMEN: Again abdominal distention, positive hepatomegaly, normal bowel sounds, no guarding or rigidity. SPINE: No scoliosis or deformity SKIN: No rashes CENTRAL NERVOUS SYSTEM: No focal deficits, tone is normal in all 4 extremities. EXTREMITIES: There is 1-2+ peripheral edema. No clubbing, no cyanosis. Peripheral pulses are intact. - Labs CBC & Chem 7: 12/18/23 05:37 12/18/23 05:37 Labs: Abnormal Lab Results - Last 24 Hours (Table) 12/17/23 12/17/23 12/17/23 Range/Units 11:58 11:58 17:29 RBC (4.40-5.60) X 10*6/uL Hgb (13.0-17.0) g/dL Hct (39.6-50.0) % MCV (80.0-97.0) FL MCH (27.0-32.0) pg RDW (11.5-14.5) % Plt Count (140-440) X 10*3/uL Lymphocytes # (0.90-5.00) X 10*3/uL Eosinophils # (0.04-0.35) X 10*3/uL Potassium (3.5-5.1) mmol/L BUN (9.0-27.0) mg/dL Creatinine (0.6-1.5) mg/dL Est GFR (CKD-EPI) (>=60) BUN/Creatinine Ratio (12.00-20.00) Ratio Glucose (70-110) mg/dL POC Glucose (mg/dL) 276 H (70-110) mg/dL Hemoglobin A1c (<=6.0) % Calcium (8.7-10.3) mg/dL Iron 39 L 38 L (65-175) UG/DL TIBC 227 L (228-460) UG/DL Transferrin 162.0 L (204.0-354.0) mg/dL Ferritin 402.0 H (22.0-322.0) ng/mL Total Protein (6.2-8.2) g/dL Albumin (3.8-4.9) g/dL Albumin/Globulin Ratio (1.60-3.17) Ratio 12/17/23 12/17/23 12/18/23 Range/Units 20:15 20:57 05:37 RBC (4.40-5.60) X 10*6/uL Hgb (13.0-17.0) g/dL Hct (39.6-50.0) % MCV (80.0-97.0) FL MCH (27.0-32.0) pg RDW (11.5-14.5) % Plt Count (140-440) X 10*3/uL Lymphocytes # (0.90-5.00) X 10*3/uL Eosinophils # (0.04-0.35) X 10*3/uL Potassium 3.1 L (3.5-5.1) mmol/L BUN (9.0-27.0) mg/dL Creatinine (0.6-1.5) mg/dL Est GFR (CKD-EPI) (>=60) BUN/Creatinine Ratio (12.00-20.00) Ratio Glucose (70-110) mg/dL POC Glucose (mg/dL) 325 H (70-110) mg/dL Hemoglobin A1c 7.5 H (<=6.0) % Calcium (8.7-10.3) mg/dL Iron (65-175) UG/DL TIBC (228-460) UG/DL Transferrin (204.0-354.0) mg/dL Ferritin (22.0-322.0) ng/mL Total Protein (6.2-8.2) g/dL Albumin (3.8-4.9) g/dL Albumin/Globulin Ratio (1.60-3.17) Ratio 12/18/23 12/18/23 12/18/23 Range/Units 05:37 05:37 07:31 RBC 2.27 L (4.40-5.60) X 10*6/uL Hgb 7.6 L (13.0-17.0) g/dL Hct 23.5 L (39.6-50.0) % MCV 103.5 H (80.0-97.0) FL MCH 33.5 H (27.0-32.0) pg RDW 20.1 H (11.5-14.5) % Plt Count 85 L (140-440) X 10*3/uL Lymphocytes # 0.51 L (0.90-5.00) X 10*3/uL Eosinophils # 0.02 L (0.04-0.35) X 10*3/uL Potassium 3.3 L (3.5-5.1) mmol/L BUN 67.4 H (9.0-27.0) mg/dL Creatinine 2.1 H (0.6-1.5) mg/dL Est GFR (CKD-EPI) 35 L (>=60) BUN/Creatinine Ratio 32.10 H (12.00-20.00) Ratio Glucose 210 H (70-110) mg/dL POC Glucose (mg/dL) 232 H (70-110) mg/dL Hemoglobin A1c (<=6.0) % Calcium 8.0 L (8.7-10.3) mg/dL Iron (65-175) UG/DL TIBC (228-460) UG/DL Transferrin (204.0-354.0) mg/dL Ferritin (22.0-322.0) ng/mL Total Protein 5.1 L (6.2-8.2) g/dL Albumin 3.0 L (3.8-4.9) g/dL Albumin/Globulin Ratio 1.43 L (1.60-3.17) Ratio / Range/Units 12:11 RBC (4.40-5.60) X 10*6/uL Hgb (13.0-17.0) g/dL Hct (39.6-50.0) % MCV (80.0-97.0) FL MCH (27.0-32.0) pg RDW (11.5-14.5) % Plt Count (140-440) X 10*3/uL Lymphocytes # (0.90-5.00) X 10*3/uL Eosinophils # (0.04-0.35) X 10*3/uL Potassium (3.5-5.1) mmol/L BUN (9.0-27.0) mg/dL Creatinine (0.6-1.5) mg/dL Est GFR (CKD-EPI) (>=60) BUN/Creatinine Ratio (12.00-20.00) Ratio Glucose (70-110) mg/dL POC Glucose (mg/dL) 137 H (70-110) mg/dL Hemoglobin A1c (<=6.0) % Calcium (8.7-10.3) mg/dL Iron (65-175) UG/DL TIBC (228-460) UG/DL Transferrin (204.0-354.0) mg/dL Ferritin (22.0-322.0) ng/mL Total Protein (6.2-8.2) g/dL Albumin (3.8-4.9) g/dL Albumin/Globulin Ratio (1.60-3.17) Ratio Assessment and Plan Assessment: Acute on chronic hypoxemic respiratory failure secondary to significant abdominal distention from ascites. Paracentesis pending History of alcoholic cirrhosis with significant recurrent ascites and previous multiple paracentesis, last ones here were October 25, 2023 and November 05, 2023 Acute on chronic kidney disease requiring hemodialysis however last treatment was December 04, 2023 as the patient inadvertently pulled out his HD catheter at the [facility] Recent admission for acute hypoxic respiratory failure requiring intubation and subsequent extubation on 10/26/2023 History of Pseudomonas aeruginosa tracheobronchitis possible bronchopneumonia in October 2023 new History of alcoholism Chronic obstructive pulmonary disease Diabetes mellitus, type II History of coronary disease Mitral regurgitation Hypothyroidism Anemia of chronic disease Chronic thrombocytopenia Plan: The patient was seen and evaluated Labs and medications reviewed Continue Lasix 60 mg IV every 12 hours Continue Aldactone Replace electrolytes Paracentesis pending Stable and on room air Plan is to return to [facility] at discharge I have personally seen and examined the patient, performed the documentation and the assessment and plan as written. Number of minutes spent on the visit: 10.
--- NOTE | 2023-12-18 16:07 | US ---
Ultrasound-guided paracentesis. DATE OF EXAM: 12/18/2023 CLINICAL HISTORY: Ascites The procedure was discussed with the patient. The risks, complications, benefits, and alternatives we re discussed and any questions were answered. Informed consent was obtained. The patient was placed s upine on the ultrasound table and prepped and draped in the usual sterile fashion. All elements of maximal barrier technique were utilized. Under ultrasound guidance, access into the right lower quadrant was obtained, via the paracentesis catheter system and direct ultrasound guidanc e. Approximately 5.5 liters of straw-colored fluid was removed. The patient was stable throughout the pr ocedure and remained stable upon discharge from Department of Radiology. IMPRESSION: Successful paracentesis under ultrasound guidance.
[2023-12-18 17:36] LABS: Glucose,Whole Blood 271 mg/dL (70-110)
[2023-12-18 19:58] LABS: Glucose,Whole Blood 251 mg/dL (70-110)
[2023-12-18] MEDS: SPIRONOLACTONE 25 MG TAB PO SCH (22:17)
[2023-12-18] MEDS: ACETAMINOPHEN TAB 325 MG TAB PO PRN (22:30)
[2023-12-19 07:21] LABS: Glucose,Whole Blood 322 mg/dL (70-110)
[2023-12-19] MEDS: MAGNESIUM OXIDE 400 MG TAB PO SCH (08:48)
[2023-12-19] MEDS: ALBUMIN HUMAN 25% 50 ML in EMPTY BAG 1 BAG IVPB SCH (11:20)
[2023-12-19 11:35] LABS: BUN/Creat Ratio 30.43 Ratio (12.00-20.00); Blood Urea Nitrogen 63.9 mg/dL (9.0-27.0); Glucose 299 mg/dL (70-110)
[2023-12-19 11:36] LABS: Carbon Dioxide 27.4 mmol/L (21.6-31.8); Chloride 96 mmol/L (96-109); Potassium 3.9 mmol/L (3.5-5.5); Sodium 137 mmol/L (135-145)
--- NOTE | 2023-12-19 11:47 | P.PN ---
Subjective Patient is seen in follow-up for chronic kidney disease. Renal function stable. Admits to good urine output. Denies chest pain or shortness of breath. Vital signs are stable. General: No acute distress. HEENT: Head exam is unremarkable. On nasal cannula. LUNGS: No audible rhonchi or wheezes. HEART: Rate and Rhythm are regular. ABDOMEN: Distention noted. EXTREMITITES: 2+ edema. Objective - Vital Signs Vital signs: Vital Signs Temp 97.8 F 12/19/23 08:00 Pulse 96 12/19/23 11:38 Resp 18 12/19/23 08:00 BP 108/68 12/19/23 08:00 Pulse Ox 97 12/19/23 08:25 FiO2 Intake & Output 12/18/23 12/19/23 12/19/23 18:59 06:59 18:59 Intake Total 720 440 Output Total 6000 650 Balance -5280 -210 Intake: Oral 720 440 Output: Urine 300 650 Other 5700 Other: Voiding Method Diaper Diaper Diaper External Catheter External Catheter External Catheter # Voids 1 - Labs CBC & Chem 7: 12/18/23 05:37 12/19/23 06:39 Labs: Abnormal Lab Results - Last 24 Hours (Table) 12/18/23 12/18/23 12/18/23 Range/Units 12:11 17:25 19:57 Potassium (3.5-5.1) mmol/L Anion Gap (4.00-12.00) mmol/L BUN (9.0-27.0) mg/dL Creatinine (0.6-1.5) mg/dL Est GFR (CKD-EPI) (>=60) BUN/Creatinine Ratio (12.00-20.00) Ratio Glucose (70-110) mg/dL POC Glucose (mg/dL) 137 H 271 H 251 H (70-110) mg/dL Calcium (8.7-10.3) mg/dL 12/18/23 12/19/23 12/19/23 Range/Units 19:59 06:39 07:09 Potassium 3.3 L (3.5-5.1) mmol/L Anion Gap 13.60 H (4.00-12.00) mmol/L BUN 63.9 H (9.0-27.0) mg/dL Creatinine 2.1 H (0.6-1.5) mg/dL Est GFR (CKD-EPI) 35 L (>=60) BUN/Creatinine Ratio 30.43 H (12.00-20.00) Ratio Glucose 299 H (70-110) mg/dL POC Glucose (mg/dL) 322 H (70-110) mg/dL Calcium 8.0 L (8.7-10.3) mg/dL Microbiology - Last 24 Hours (Table) 12/17/23 18:00 Blood Culture - Preliminary Blood 12/17/23 18:15 Blood Culture - Preliminary Blood Assessment and Plan Plan: Assessment: 1. Chronic kidney disease stage IIIb with creatinine now in the range of 2-3. Etiology is ATN from septic shock in September 2023 as well as hepatorenal syndrome. Creatinine in September 2023 was as low as near 1. Creatinine stable at 2.1 today. 2. Volume overload. Improving with diuresis. Status post paracentesis December 18, 2023 with 5.7 L drained. 3. Alcohol induced liver cirrhosis. 4. Acute on chronic diastolic CHF with moderate mitral regurgitation. 5. History of adrenal sufficiency maintained on Cortef. 6. Hypokalemia from diuresis. Replaced. Better. 7. Hypervolemic hyponatremia. Better. 8. Diabetes mellitus. 9. Anemia of chronic kidney disease. Iron deficiency noted. Plan: Stop IV Lasix. Start Lasix drip at 10 cc an hour. Add metolazone 5 mg once daily. Maintain spironolactone. Low-salt diet and 1200 cc fluid restriction. Maintain IV iron. Continue to monitor renal function and urine output.
--- NOTE | 2023-12-19 12:18 | P.PN ---
Subjective Progress Note Date: 12/19/23 * 63-year-old gentleman with past medical history significant for diabetes mellitus, history of decompensated liver cirrhosis, chronic congestive heart failure diastolic dysfunction, adrenal insufficiency, chronic kidney disease stage IIIb, recent hospitalization in October 2023 for Pseudomonas pneumonia and septic shock, history of COPD, coronary artery disease, presents to the emergency department with complaints of shortness of breath, abdominal discomfort. Patient was recently discharged in the middle of October to rehab facility. During previous hospitalization patient was monitored for hepatorenal syndrome and was seen by nephrology, pulmonary medicine * Patient states he was discharged to rehab for a short while however he went home after that and since then he has been having weakness and shortness of breath and worsening abdominal distention * Workup initiated in ER included CBC which showed WBC 4.9 hemoglobin 8.6 platelet count of 96, INR of 0.9 * Serum chemistry obtained sodium 132 potassium 2.7 chloride 95 BUN 73 creatinine 2.29 calcium 8.1 lactate 1.8 albumin of 3 lipase of 12 * Chest x-ray obtained in ER showed persistent low lung volumes no acute pulmonary infiltrate noted * While in ER patient was noted to have severe hypokalemia and potassium was replaced, IR has been consulted for therapeutic paracentesis * 12/18/2023: Patient seen and evaluated at bedside, plan for paracentesis, potassium replaced nephrology following, continue patient on IV Lasix, patient states he feels better however abdomen still distended. Will follow-up on renal profile and CBC * 12/19/2023: Patient seen and evaluated bedside. Patient is s/p paracentesis 5 L of fluid removed yesterday. 1 dose of albumin ordered today. Follow-up on metabolic panel, will need workup with physical therapy as well. Potential discharge back to facility by 12/21/2023 REVIEW OF SYSTEMS: Shortness of breath, abdominal discomfort resolved, abdominal distention proved post paracentesis CONSTITUTIONAL: No fever, no malaise, no fatigue. HEENT: No recent visual problems or hearing problems. Denied any sore throat. CARDIOVASCULAR: No chest pain, orthopnea, PND, no palpitations, no syncope. PULMONARY: No shortness of breath, no cough, no hemoptysis. GASTROINTESTINAL:Shortness of breath, abdominal discomfort resolved, abdominal distention proved post paracentesis NEUROLOGICAL: No headaches, no weakness, no numbness. HEMATOLOGICAL: Denies any bleeding or petechiae. GENITOURINARY: Denies any burning micturition, frequency, or urgency. MUSCULOSKELETAL/RHEUMATOLOGICAL: Denies any joint pain, swelling, or any muscle pain. ENDOCRINE: Denies any polyuria or polydipsia. PHYSICAL EXAMINATION: GENERAL: The patient is alert and oriented x3, nasal cannula in place, ill appearance HEENT: Pupils are round and equally reacting to light. EOMI. CARDIOVASCULAR: S1 and S2 present. Lower extremity edema PULMONARY: Chest is clear to auscultation, no wheezing or crackles. ABDOMEN: Soft, nontender, distended, MUSCULOSKELETAL: No joint swelling or deformity. EXTREMITIES: No cyanosis, clubbing, or pedal edema. NEUROLOGICAL: Gross neurological examination did not reveal any focal deficits. Assessment and plan * Decompensated liver cirrhosis with recurrent ascites * Acute exacerbation of COPD * Acute renal failure on chronic kidney disease stage IV * Deficiency anemia * Adrenal insufficiency on chronic steroids * Diabetes mellitus insulin-dependent with HbA1c 7.5 * Acute hypoxemic respiratory failure * Coronary artery disease * Severe hypokalemia * Consult obtained from nephrology, pulmonary medicine * In regards to COPD exacerbation continue patient on breathing treatments continue patient on chronic steroids * In regards to abdominal ascites continue patient on IV Rocephin to complete 5-day course due to concern for peritonitis., S/p paracentesis 5 L of fluid removed 12/17 * Regards to history of adrenal insufficiency continue patient on hydrocortisone. * In regards to diabetes mellitus, Accu-Cheks ACHS continue patient on correctional insulin continue patient on Lantus monitor for hypoglycemia * In regards to SAHARA and chronic kidney disease nephrology consulted, continue patient on midodrine, continue Lasix, Aldactone managed by nephrology * In regards to iron deficiency anemia continue patient on IV iron replacement * Status is full code Objective - Vital Signs Vital signs: Vital Signs Temp 97.8 F 12/19/23 08:00 Pulse 92 12/19/23 08:32 Resp 18 12/19/23 08:00 BP 108/68 12/19/23 08:00 Pulse Ox 97 12/19/23 08:25 FiO2 Intake & Output 12/18/23 12/19/23 12/19/23 18:59 06:59 18:59 Intake Total 720 440 Output Total 6000 650 Balance -5280 -210 Intake: Oral 720 440 Output: Urine 300 650 Other 5700 Other: Voiding Method Diaper Diaper External Catheter External Catheter # Voids 1 - Labs CBC & Chem 7: 12/18/23 05:37 12/19/23 06:39 Labs: Abnormal Lab Results - Last 24 Hours (Table) 12/18/23 12/18/23 12/18/23 Range/Units 12:11 17:25 19:57 Potassium (3.5-5.1) mmol/L POC Glucose (mg/dL) 137 H 271 H 251 H (70-110) mg/dL 12/18/23 12/19/23 Range/Units 19:59 07:09 Potassium 3.3 L (3.5-5.1) mmol/L POC Glucose (mg/dL) 322 H (70-110) mg/dL Microbiology - Last 24 Hours (Table) 12/17/23 18:00 Blood Culture - Preliminary Blood 12/17/23 18:15 Blood Culture - Preliminary Blood
[2023-12-19 12:23] LABS: Glucose,Whole Blood 231 mg/dL (70-110)
[2023-12-19 12:32] LABS: HCT 26.5 % (39.6-50.0); HGB 8.3 g/dL (13.0-17.0); MCH 32.7 pg (27.0-32.0); MCHC 31.3 g/dL (32.0-37.0); MCV 104.3 FL (80.0-97.0); Mean Platelet Volume 9.5 FL (9.5-12.2); NRBC Per 100 WBC 0 X 10*3/uL (0.00-0.01); Platelet Count 96 X 10*3/uL (140-440); RBC 2.54 X 10*6/uL (4.40-5.60); RDW 20.3 % (11.5-14.5); WBC 4.96 X 10*3/uL (4.50-10.00)
[2023-12-19] MEDS: FUROSEMIDE 100 MG in SODIUM CHLORIDE 0.9% 90 ML IV SCH (13:48)
[2023-12-19] MEDS: metOLazone 5 MG TAB PO SCH (13:49)
--- NOTE | 2023-12-19 15:00 | P.PN ---
Subjective Progress Note Date: 12/19/23 This is a 63-year-old male patient with a known history of cirrhosis with recurrent ascites requiring multiple paracentesis. He also had recently developed acute kidney injury requiring hemodialysis however while he was at the [facility] facility in [place] he inadvertently had pulled out his cath eter and his last hemodialysis session was December 04, 2023. He had been here for an extended stay back in October 2023. He had undergone large-volume paracentesis on October 25, 2023 with 6.2 L removed no evidence of SBP. A second paracentesis was performed on 11/05/2023 with another 3 L removed. Unclear whether he had any further paracentesis in the outpatient setting. The patient is somewhat of a poor historian. He does have a history of alcoholism, chronic obstructive pulmonary disease, diabetes mellitus type 2, coronary artery disease, hypothyroidism, anemia of chronic disease, chronic thrombocytopenia. He also has a history of Pseudomonas aeruginosa tracheobronchitis previously tr eated with Zosyn. He presented here to the emergency room earlier this morning with increasing shortness of breath. Significant abdominal distention. Chest x-ray shows persistent low lung volumes and right basilar opacity favoring scarring or atelectasis. No acute pulmonary infiltrates. No significant pleural effusions. White count 4.9. Hemoglobin 8.6. Platelets 96,000. INR 0.9. Sodium 132. Potassium 2.7. Bicarb 28. BUN 73. Creatinine 2.29. Glucose 247. AST 23. ALT 21. proBNP 3040. Troponin opponent negative x 1. He has been initiated on Lasix 60 mg IV every 12 hours per nephrology. Continued on Aldactone. He is seen today in consultation in the emergency department. He is currently sitting up on a stretcher. Awake and alert in no acute distress. Denies any worsening shortness of breath, cough or congestion. He is maintaining O2 saturation in the 90s on 3 L/min per nasal cannula. Potassium being replaced. The patient is seen today December 18, 2023 in follow-up on the regular medical floor. He is currently resting in bed. Awake and alert in no acute distress. Containing good O2 saturations in the 90s on room air. He is afebrile. Hemodynamically stable. No worsening shortness of breath, cough or congestion. He is still awaiting a paracentesis to be done. White count 4.7. Hemoglobin 7.6. Platelets 85,000. Sodium 137. Potassium 3.3. Bicarb 29. BUN 67. Creatinine 2.1. Glucose 210. He remains on ceftriaxone. Initiated on iron replacement. Remains on IV diuretics 60 mg every 12 hours and Aldactone per nephrology. Continued on hydrocortisone. He is making urine. Remains on a 1200 cc fluid restriction diet. The patient is seen today December 19, 2023 in follow-up on the regular medical floor. He is currently sitting up in a chair. Having breakfast. Denies any worsening shortness of breath, cough or congestion. He is maintaining O2 saturations in the 90s on 3 L/min per nasal cannula. He is afebrile. Hemodynamically stable. He did undergo a paracentesis with 5.5 L of fluid removed today. Feeling better. Blood cultures revealed no growth. White count 4.9. Hemoglobin 8.3. Platelets 96,000. Sodium 137. Potassium 3.9. Bicarb 27. BUN 64. Creatinine 2.1. Glucose 299. He has been initiated on a Lasix drip at 10 mg/h per nephrology. Continued on Cortef. Remains on antibiotics in the form of ceftriaxone. Continued on bronchodilators. Objective - Vital Signs Vital signs: Vital Signs Temp 97.6 F 12/19/23 14:00 Pulse 98 12/19/23 14:00 Resp 18 12/19/23 14:00 BP 115/69 12/19/23 14:00 Pulse Ox 98 12/19/23 14:00 FiO2 Intake & Output 12/18/23 12/19/23 12/19/23 18:59 06:59 18:59 Intake Total 720 440 Output Total 6000 650 Balance -5280 -210 Intake: Oral 720 440 Output: Urine 300 650 Other 5700 Other: Voiding Method Diaper Diaper Diaper External Catheter External Catheter External Catheter # Voids 1 - Exam GENERAL EXAM: Alert, 63-year-old male patient, up in a chair, on 3 L nasal cannula, fairly comfortable in no apparent distress. HEAD: Normocephalic. EYES: Normal reaction of pupils, equal size. NOSE: Clear with pink turbinates. THROAT: No erythema or exudates. NECK: No masses, no JVD. CHEST: No chest wall deformity. LUNGS: Equal air entry with crackles in the right lung base. CVS: S1 and S2 normal with no audible murmur, regular rhythm. ABDOMEN:Abdominal distention, positive hepatomegaly, normal bowel sounds, no guarding or rigidity. SPINE: No scoliosis or deformity SKIN: No rashes CENTRAL NERVOUS SYSTEM: No focal deficits, tone is normal in all 4 extremities. EXTREMITIES: There is 1-2+ peripheral edema. No clubbing, no cyanosis. Peripheral pulses are intact. - Labs CBC & Chem 7: 12/19/23 06:39 12/19/23 06:39 Labs: Abnormal Lab Results - Last 24 Hours (Table) 12/18/23 12/18/23 12/18/23 Range/Units 17:25 19:57 19:59 RBC (4.40-5.60) X 10*6/uL Hgb (13.0-17.0) g/dL Hct (39.6-50.0) % MCV (80.0-97.0) FL MCH (27.0-32.0) pg MCHC (32.0-37.0) g/dL RDW (11.5-14.5) % Plt Count (140-440) X 10*3/uL Potassium 3.3 L (3.5-5.1) mmol/L Anion Gap (4.00-12.00) mmol/L BUN (9.0-27.0) mg/dL Creatinine (0.6-1.5) mg/dL Est GFR (CKD-EPI) (>=60) BUN/Creatinine Ratio (12.00-20.00) Ratio Glucose (70-110) mg/dL POC Glucose (mg/dL) 271 H 251 H (70-110) mg/dL Calcium (8.7-10.3) mg/dL 12/19/23 12/19/23 12/19/23 Range/Units 06:39 06:39 07:09 RBC 2.54 L (4.40-5.60) X 10*6/uL Hgb 8.3 L (13.0-17.0) g/dL Hct 26.5 L (39.6-50.0) % MCV 104.3 H (80.0-97.0) FL MCH 32.7 H (27.0-32.0) pg MCHC 31.3 L (32.0-37.0) g/dL RDW 20.3 H (11.5-14.5) % Plt Count 96 L (140-440) X 10*3/uL Potassium (3.5-5.1) mmol/L Anion Gap 13.60 H (4.00-12.00) mmol/L BUN 63.9 H (9.0-27.0) mg/dL Creatinine 2.1 H (0.6-1.5) mg/dL Est GFR (CKD-EPI) 35 L (>=60) BUN/Creatinine Ratio 30.43 H (12.00-20.00) Ratio Glucose 299 H (70-110) mg/dL POC Glucose (mg/dL) 322 H (70-110) mg/dL Calcium 8.0 L (8.7-10.3) mg/dL 12/19/23 Range/Units 12:12 RBC (4.40-5.60) X 10*6/uL Hgb (13.0-17.0) g/dL Hct (39.6-50.0) % MCV (80.0-97.0) FL MCH (27.0-32.0) pg MCHC (32.0-37.0) g/dL RDW (11.5-14.5) % Plt Count (140-440) X 10*3/uL Potassium (3.5-5.1) mmol/L Anion Gap (4.00-12.00) mmol/L BUN (9.0-27.0) mg/dL Creatinine (0.6-1.5) mg/dL Est GFR (CKD-EPI) (>=60) BUN/Creatinine Ratio (12.00-20.00) Ratio Glucose (70-110) mg/dL POC Glucose (mg/dL) 231 H (70-110) mg/dL Calcium (8.7-10.3) mg/dL Microbiology - Last 24 Hours (Table) 12/17/23 18:00 Blood Culture - Preliminary Blood 12/17/23 18:15 Blood Culture - Preliminary Blood Assessment and Plan Assessment: Acute on chronic hypoxemic respiratory failure secondary to significant abdominal distention from ascites. Paracentesis performed 12/18/2023 with 5.5 L removed History of alcoholic cirrhosis with significant recurrent ascites and previous multiple paracentesis, last ones here were October 25, 2023 and November 05, 2023 Acute on chronic kidney disease requiring hemodialysis however last treatment was December 04, 2023 as the patient inadvertently pulled out his HD catheter at the [facility] Recent admission for acute hypoxic respiratory failure requiring intubation and subsequent extubation on 10/26/2023 History of Pseudomonas aeruginosa tracheobronchitis possible bronchopneumonia in October 2023 new History of alcoholism Chronic obstructive pulmonary disease Diabetes mellitus, type II History of coronary disease Mitral regurgitation Hypothyroidism Anemia of chronic disease Chronic thrombocytopenia Plan: The patient was seen and evaluated Labs and medications reviewed Currently on a Lasix drip Continue the current treatment plan Titrate the FiO2 as tolerated We will continue to follow I have personally seen and examined the patient, performed the documentation and the assessment and plan as written. Number of minutes spent on the visit: 10.
[2023-12-19 17:41] LABS: Glucose,Whole Blood 268 mg/dL (70-110)
[2023-12-19 20:56] LABS: Glucose,Whole Blood 175 mg/dL (70-110)
[2023-12-20 08:17] LABS: Glucose,Whole Blood 132 mg/dL (70-110)
[2023-12-20 11:12] LABS: HCT 23.8 % (39.6-50.0); HGB 7.5 g/dL (13.0-17.0); MCH 32.6 pg (27.0-32.0); MCHC 31.5 g/dL (32.0-37.0); MCV 103.5 FL (80.0-97.0); Mean Platelet Volume 9.8 FL (9.5-12.2); NRBC Per 100 WBC 0 X 10*3/uL (0.00-0.01); Platelet Count 87 X 10*3/uL (140-440); RDW 20.1 % (11.5-14.5); WBC 3.35 X 10*3/uL (4.50-10.00)
[2023-12-20 11:23] LABS: Glucose,Whole Blood 172 mg/dL (70-110)
[2023-12-20 11:24] LABS: Magnesium 1.6 mg/dL (1.5-2.4)
[2023-12-20 11:26] LABS: Blood Urea Nitrogen 62.7 mg/dL (9.0-27.0); Calcium 8.2 mg/dL (8.7-10.3); Carbon Dioxide 30.2 mmol/L (21.6-31.8); Chloride 98 mmol/L (96-109); Glucose 138 mg/dL (70-110); Potassium 3.4 mmol/L (3.5-5.5); Sodium 139 mmol/L (135-145)
[2023-12-20] MEDS: POTASSIUM CHLORIDE ER 20 MEQ TAB.ER PO SCH (12:20)
[2023-12-20] MEDS ORDERED: POTASSIUM CHLORIDE ER 20 MEQ TAB.ER PO STA (12:40)
--- NOTE | 2023-12-20 12:41 | P.PN ---
Subjective Patient is seen in follow-up for chronic kidney disease. Renal function stable. Admits to good urine output. Denies chest pain or shortness of breath. On Lasix drip. Vital signs are stable. General: No acute distress. HEENT: Head exam is unremarkable. On nasal cannula. LUNGS: No audible rhonchi or wheezes. HEART: Rate and Rhythm are regular. ABDOMEN: Distention noted. EXTREMITITES: 2+ edema. Objective - Vital Signs Vital signs: Vital Signs Temp 97.7 F 12/20/23 11:19 Pulse 90 12/20/23 11:19 Resp 16 12/20/23 11:19 BP 123/68 12/20/23 11:19 Pulse Ox 97 12/20/23 11:19 FiO2 Intake & Output 12/19/23 12/20/23 12/20/23 18:59 06:59 18:59 Intake Total 1220 630.833 Output Total 350 1900 Balance 870 -1269.167 Intake: Intake, IV Titration 170.833 Amount Furosemide 100 mg In 170.833 Sodium Chloride 0.9% 90 ml @ 10 MG/HR 10 mls/hr IV .Q10H [facility] Rx#: [id number] Oral 1220 460 Output: Urine 350 1900 Other: Voiding Method External Catheter External Catheter External Catheter # Voids 3 - Labs CBC & Chem 7: 12/20/23 06:47 12/20/23 06:47 Labs: Abnormal Lab Results - Last 24 Hours (Table) 12/19/23 12/19/23 12/20/23 Range/Units 17:36 20:52 06:47 WBC 3.35 L (4.50-10.00) X 10*3/uL RBC 2.30 L (4.40-5.60) X 10*6/uL Hgb 7.5 L (13.0-17.0) g/dL Hct 23.8 L (39.6-50.0) % MCV 103.5 H (80.0-97.0) FL MCH 32.6 H (27.0-32.0) pg MCHC 31.5 L (32.0-37.0) g/dL RDW 20.1 H (11.5-14.5) % Plt Count 87 L (140-440) X 10*3/uL Potassium (3.5-5.5) mmol/L BUN (9.0-27.0) mg/dL Creatinine (0.6-1.5) mg/dL Est GFR (CKD-EPI) (>=60) BUN/Creatinine Ratio (12.00-20.00) Ratio Glucose (70-110) mg/dL POC Glucose (mg/dL) 268 H 175 H (70-110) mg/dL Calcium (8.7-10.3) mg/dL 12/20/23 12/20/23 12/20/23 Range/Units 06:47 08:13 11:22 WBC (4.50-10.00) X 10*3/uL RBC (4.40-5.60) X 10*6/uL Hgb (13.0-17.0) g/dL Hct (39.6-50.0) % MCV (80.0-97.0) FL MCH (27.0-32.0) pg MCHC (32.0-37.0) g/dL RDW (11.5-14.5) % Plt Count (140-440) X 10*3/uL Potassium 3.4 L (3.5-5.5) mmol/L BUN 62.7 H (9.0-27.0) mg/dL Creatinine 2.2 H (0.6-1.5) mg/dL Est GFR (CKD-EPI) 33 L (>=60) BUN/Creatinine Ratio 28.50 H (12.00-20.00) Ratio Glucose 138 H (70-110) mg/dL POC Glucose (mg/dL) 132 H 172 H (70-110) mg/dL Calcium 8.2 L (8.7-10.3) mg/dL Microbiology - Last 24 Hours (Table) 12/17/23 18:00 Blood Culture - Preliminary Blood 12/17/23 18:15 Blood Culture - Preliminary Blood Assessment and Plan Plan: Assessment: 1. Chronic kidney disease stage IIIb with creatinine now in the range of 2-3. Etiology is ATN from septic shock in September 2023 as well as hepatorenal syndrome. Creatinine in September 2023 was as low as near 1. Creatinine stable at 2.2 today. 2. Volume overload. Improving with diuresis. Status post paracentesis December 18, 2023 with 5.7 L drained. 3. Alcohol induced liver cirrhosis. 4. Acute on chronic diastolic CHF with moderate mitral regurgitation. 5. History of adrenal sufficiency maintained on Cortef. 6. Hypokalemia from diuresis. Replaced. 7. Hypervolemic hyponatremia. Better. 8. Diabetes mellitus. 9. Anemia of chronic kidney disease. Iron deficiency noted. Plan: Maintain Lasix drip at 10 cc an hour. Maintain metolazone 5 mg once daily. Maintain spironolactone - increase dose to 50 mg twice daily. Replace potassium. Low-salt diet and 1200 cc fluid restriction. Maintain IV iron. Continue to monitor renal function and urine output. Add Aranesp.
[2023-12-20] MEDS: DARBEPOETIN ALFA 40 MCG/0.4 ML SYRINGE SQ SCH (13:09)
--- NOTE | 2023-12-20 14:37 | P.PN ---
Subjective Progress Note Date: 12/20/23 This is a 63-year-old male patient with a known history of cirrhosis with recurrent ascites requiring multiple paracentesis. He also had recently developed acute kidney injury requiring hemodialysis however while he was at the [facility] care facility in [place] he inadvertently had pulled out his cath eter and his last hemodialysis session was December 04, 2023. He had been here for an extended stay back in October 2023. He had undergone large-volume paracentesis on October 25, 2023 with 6.2 L removed no evidence of SBP. A second paracentesis was performed on 11/05/2023 with another 3 L removed. Unclear whether he had any further paracentesis in the outpatient setting. The patient is somewhat of a poor historian. He does have a history of alcoholism, chronic obstructive pulmonary disease, diabetes mellitus type 2, coronary artery disease, hypothyroidism, anemia of chronic disease, chronic thrombocytopenia. He also has a history of Pseudomonas aeruginosa tracheobronchitis previously tr eated with Zosyn. He presented here to the emergency room earlier this morning with increasing shortness of breath. Significant abdominal distention. Chest x-ray shows persistent low lung volumes and right basilar opacity favoring scarring or atelectasis. No acute pulmonary infiltrates. No significant pleural effusions. White count 4.9. Hemoglobin 8.6. Platelets 96,000. INR 0.9. Sodium 132. Potassium 2.7. Bicarb 28. BUN 73. Creatinine 2.29. Glucose 247. AST 23. ALT 21. proBNP 3040. Troponin opponent negative x 1. He has been initiated on Lasix 60 mg IV every 12 hours per nephrology. Continued on Aldactone. He is seen today in consultation in the emergency department. He is currently sitting up on a stretcher. Awake and alert in no acute distress. Denies any worsening shortness of breath, cough or congestion. He is maintaining O2 saturation in the 90s on 3 L/min per nasal cannula. Potassium being replaced. The patient is seen today December 18, 2023 in follow-up on the regular medical floor. He is currently resting in bed. Awake and alert in no acute distress. Containing good O2 saturations in the 90s on room air. He is afebrile. Hemodynamically stable. No worsening shortness of breath, cough or congestion. He is still awaiting a paracentesis to be done. White count 4.7. Hemoglobin 7.6. Platelets 85,000. Sodium 137. Potassium 3.3. Bicarb 29. BUN 67. Creatinine 2.1. Glucose 210. He remains on ceftriaxone. Initiated on iron replacement. Remains on IV diuretics 60 mg every 12 hours and Aldactone per nephrology. Continued on hydrocortisone. He is making urine. Remains on a 1200 cc fluid restriction diet. The patient is seen today December 19, 2023 in follow-up on the regular medical floor. He is currently sitting up in a chair. Having breakfast. Denies any worsening shortness of breath, cough or congestion. He is maintaining O2 saturations in the 90s on 3 L/min per nasal cannula. He is afebrile. Hemodynamically stable. He did undergo a paracentesis with 5.5 L of fluid removed today. Feeling better. Blood cultures revealed no growth. White count 4.9. Hemoglobin 8.3. Platelets 96,000. Sodium 137. Potassium 3.9. Bicarb 27. BUN 64. Creatinine 2.1. Glucose 299. He has been initiated on a Lasix drip at 10 mg/h per nephrology. Continued on Cortef. Remains on antibiotics in the form of ceftriaxone. Continued on bronchodilators. The patient is seen today December 20, 2023 in follow-up on the regular medical floor. He is awake and alert in no acute distress. Denies any worsening shortness of breath, cough or congestion. He is maintaining good O2 saturations in the 90s on room air. He is continued on Lasix drip at 10 mg/h. Cultures revealed no growth. White count 3.3. Hemoglobin 7.5. Platelets 87,000. Sodium 139. Potassium 3.4. Bicarb 30. BUN 63. Creatinine 2.2. Glucose 138. He is continued on bronchodilators, ceftriaxone, Cortef. Remains on lactulose. Objective - Vital Signs Vital signs: Vital Signs Temp 97.7 F 12/20/23 11:19 Pulse 90 12/20/23 11:19 Resp 16 12/20/23 11:19 BP 123/68 12/20/23 11:19 Pulse Ox 97 12/20/23 11:19 FiO2 Intake & Output 12/19/23 12/20/23 12/20/23 18:59 06:59 18:59 Intake Total 1220 630.833 Output Total 350 1900 Balance 870 -1269.167 Intake: Intake, IV Titration 170.833 Amount Furosemide 100 mg In 170.833 Sodium Chloride 0.9% 90 ml @ 10 MG/HR 10 mls/hr IV .Q10H [facility] Rx#: [id number] Oral 1220 460 Output: Urine 350 1900 Other: Voiding Method External Catheter External Catheter External Catheter # Voids 3 2 - Exam GENERAL EXAM: Alert, pleasant 63-year-old male, up in a chair, on room air, comfortable in no apparent distress. HEAD: Normocephalic. EYES: Normal reaction of pupils, equal size. NOSE: Clear with pink turbinates. THROAT: No erythema or exudates. NECK: No masses, no JVD. CHEST: No chest wall deformity. LUNGS: Equal air entry with crackles in the right lung base. CVS: S1 and S2 normal with no audible murmur, regular rhythm. ABDOMEN:Abdominal distention, positive hepatomegaly, normal bowel sounds, no guarding or rigidity. SPINE: No scoliosis or deformity SKIN: No rashes CENTRAL NERVOUS SYSTEM: No focal deficits, tone is normal in all 4 extremities. EXTREMITIES: There is 1-2+ peripheral edema. No clubbing, no cyanosis. Peripheral pulses are intact. - Labs CBC & Chem 7: 12/20/23 06:47 12/20/23 06:47 Labs: Abnormal Lab Results - Last 24 Hours (Table) 12/19/23 12/19/23 12/20/23 Range/Units 17:36 20:52 06:47 WBC 3.35 L (4.50-10.00) X 10*3/uL RBC 2.30 L (4.40-5.60) X 10*6/uL Hgb 7.5 L (13.0-17.0) g/dL Hct 23.8 L (39.6-50.0) % MCV 103.5 H (80.0-97.0) FL MCH 32.6 H (27.0-32.0) pg MCHC 31.5 L (32.0-37.0) g/dL RDW 20.1 H (11.5-14.5) % Plt Count 87 L (140-440) X 10*3/uL Potassium (3.5-5.5) mmol/L BUN (9.0-27.0) mg/dL Creatinine (0.6-1.5) mg/dL Est GFR (CKD-EPI) (>=60) BUN/Creatinine Ratio (12.00-20.00) Ratio Glucose (70-110) mg/dL POC Glucose (mg/dL) 268 H 175 H (70-110) mg/dL Calcium (8.7-10.3) mg/dL 12/20/23 12/20/23 12/20/23 Range/Units 06:47 08:13 11:22 WBC (4.50-10.00) X 10*3/uL RBC (4.40-5.60) X 10*6/uL Hgb (13.0-17.0) g/dL Hct (39.6-50.0) % MCV (80.0-97.0) FL MCH (27.0-32.0) pg MCHC (32.0-37.0) g/dL RDW (11.5-14.5) % Plt Count (140-440) X 10*3/uL Potassium 3.4 L (3.5-5.5) mmol/L BUN 62.7 H (9.0-27.0) mg/dL Creatinine 2.2 H (0.6-1.5) mg/dL Est GFR (CKD-EPI) 33 L (>=60) BUN/Creatinine Ratio 28.50 H (12.00-20.00) Ratio Glucose 138 H (70-110) mg/dL POC Glucose (mg/dL) 132 H 172 H (70-110) mg/dL Calcium 8.2 L (8.7-10.3) mg/dL Microbiology - Last 24 Hours (Table) 12/17/23 18:00 Blood Culture - Preliminary Blood 12/17/23 18:15 Blood Culture - Preliminary Blood Assessment and Plan Assessment: Acute on chronic hypoxemic respiratory failure secondary to significant abdominal distention from ascites. Paracentesis performed 12/18/2023 with 5.5 L removed History of alcoholic cirrhosis with significant recurrent ascites and previous multiple paracentesis, last ones here were October 25, 2023 and November 05, 2023 Acute on chronic kidney disease requiring hemodialysis however last treatment was December 04, 2023 as the patient inadvertently pulled [facility] his [facility] Recent admission for acute hypoxic respiratory failure requiring intubation and subsequent extubation on 10/26/2023 History of Pseudomonas aeruginosa tracheobronchitis possible bronchopneumonia in October 2023 new History of alcoholism Chronic obstructive pulmonary disease Diabetes mellitus, type II History of coronary disease Mitral regurgitation Hypothyroidism Anemia of chronic disease Chronic thrombocytopenia Plan: The patient was seen and evaluated Labs and medications reviewed Stable and on room air Continue the current treatment plan We will continue to follow I have personally seen and examined the patient, performed the documentation and the assessment and plan as written. Number of minutes spent on the visit: 10.
[2023-12-20 17:02] LABS: Glucose,Whole Blood 281 mg/dL (70-110)
--- NOTE | 2023-12-20 18:06 | P.PN ---
Subjective Progress Note Date: 12/20/23 * 63-year-old gentleman with past medical history significant for diabetes mellitus, history of decompensated liver cirrhosis, chronic congestive heart failure diastolic dysfunction, adrenal insufficiency, chronic kidney disease stage IIIb, recent hospitalization in October 2023 for Pseudomonas pneumonia and septic shock, history of COPD, coronary artery disease, presents to the emergency department with complaints of shortness of breath, abdominal discomfort. Patient was recently discharged in the middle of October to rehab facility. During previous hospitalization patient was monitored for hep atorenal syndrome and was seen by nephrology, pulmonary medicine * Patient states he was discharged to rehab for a short while however he went home after that and since then he has been having weakness and shortness of breath and worsening abdominal distention * Workup initiated in ER included CBC which showed WBC 4.9 hemoglobin 8.6 platelet count of 96, INR of 0.9 * Serum chemistry obtained sodium 132 potassium 2.7 chloride 95 BUN 73 creatinine 2.29 calcium 8.1 lactate 1.8 albumin of 3 lipase of 12 * Chest x-ray obtained in ER showed persistent low lung volumes no acute pulmonary infiltrate noted * While in ER patient was noted to have severe hypokalemia and potassium was replaced, IR has been consulted for therapeutic paracentesis * 12/18/2023: Patient seen and evaluated at bedside, plan for paracentesis, potassium replaced nephrology following, continue patient on IV Lasix, patient states he feels better however abdomen still distended. Will follow-up on renal profile and CBC * 12/19/2023: Patient seen and evaluated bedside. Patient is s/p paracentesis 5 L of fluid removed yesterday. 1 dose of albumin ordered today. Follow-up on metabolic panel, will need workup with physical therapy as well. Potential discharge back to facility by 12/21/2023 12/20/2023 Patient is seen and evaluated in follow-up on the regular medical floor. He is awake and alert in no acute distress. Denies any worsening shortness of breath, cough or congestion. He is maintaining good O2 saturations in the 90s on room air. He is continued on Lasix drip at 10 mg/h. Blood cultures revealed no growth. White count 3.3. Hemoglobin 7.5. Platelets 87,000. Sodium 139. Potassium 3.4. Bicarb 30. BUN 63. Creatinine 2.2. Glucose 138. He is continued on bronchodilators, ceftriaxone, Cortef. Remains on lactulose. -- Pulmonary service on board and recommending to continue with current treatment Objective - Vital Signs Vital signs: Vital Signs Temp 97.7 F 12/20/23 11:19 Pulse 90 12/20/23 11:19 Resp 16 12/20/23 11:19 BP 123/68 12/20/23 11:19 Pulse Ox 97 12/20/23 11:19 FiO2 Intake & Output 12/19/23 12/20/23 12/20/23 18:59 06:59 18:59 Intake Total 1220 630.833 Output Total 350 1900 Balance 870 -1269.167 Intake: Intake, IV Titration 170.833 Amount Furosemide 100 mg In 170.833 Sodium Chloride 0.9% 90 ml @ 10 MG/HR 10 mls/hr IV .Q10H [facility] Rx#: [id number] Oral 1220 460 Output: Urine 350 1900 Other: Voiding Method External Catheter External Catheter External Catheter # Voids 3 - Exam GENERAL: The patient is alert and oriented x3, nasal cannula in place, ill appearance HEENT: Pupils are round and equally reacting to light. EOMI. CARDIOVASCULAR: S1 and S2 present. Lower extremity edema PULMONARY: Chest is clear to auscultation, no wheezing or crackles. ABDOMEN: Soft, nontender, distended, MUSCULOSKELETAL: No joint swelling or deformity. EXTREMITIES: No cyanosis, clubbing, or pedal edema. NEUROLOGICAL: Gross neurological examination did not reveal any focal deficits. - Labs CBC & Chem 7: 12/20/23 06:47 12/20/23 06:47 Labs: Abnormal Lab Results - Last 24 Hours (Table) 12/19/23 12/19/23 12/20/23 Range/Units 17:36 20:52 06:47 WBC 3.35 L (4.50-10.00) X 10*3/uL RBC 2.30 L (4.40-5.60) X 10*6/uL Hgb 7.5 L (13.0-17.0) g/dL Hct 23.8 L (39.6-50.0) % MCV 103.5 H (80.0-97.0) FL MCH 32.6 H (27.0-32.0) pg MCHC 31.5 L (32.0-37.0) g/dL RDW 20.1 H (11.5-14.5) % Plt Count 87 L (140-440) X 10*3/uL Potassium (3.5-5.5) mmol/L BUN (9.0-27.0) mg/dL Creatinine (0.6-1.5) mg/dL Est GFR (CKD-EPI) (>=60) BUN/Creatinine Ratio (12.00-20.00) Ratio Glucose (70-110) mg/dL POC Glucose (mg/dL) 268 H 175 H (70-110) mg/dL Calcium (8.7-10.3) mg/dL 12/20/23 12/20/23 12/20/23 Range/Units 06:47 08:13 11:22 WBC (4.50-10.00) X 10*3/uL RBC (4.40-5.60) X 10*6/uL Hgb (13.0-17.0) g/dL Hct (39.6-50.0) % MCV (80.0-97.0) FL MCH (27.0-32.0) pg MCHC (32.0-37.0) g/dL RDW (11.5-14.5) % Plt Count (140-440) X 10*3/uL Potassium 3.4 L (3.5-5.5) mmol/L BUN 62.7 H (9.0-27.0) mg/dL Creatinine 2.2 H (0.6-1.5) mg/dL Est GFR (CKD-EPI) 33 L (>=60) BUN/Creatinine Ratio 28.50 H (12.00-20.00) Ratio Glucose 138 H (70-110) mg/dL POC Glucose (mg/dL) 132 H 172 H (70-110) mg/dL Calcium 8.2 L (8.7-10.3) mg/dL Microbiology - Last 24 Hours (Table) 12/17/23 18:00 Blood Culture - Preliminary Blood 12/17/23 18:15 Blood Culture - Preliminary Blood Assessment and Plan Assessment: * Decompensated liver cirrhosis with recurrent ascites * Acute exacerbation of COPD * Acute renal failure on chronic kidney disease stage IV * Deficiency anemia * Adrenal insufficiency on chronic steroids * Diabetes mellitus insulin-dependent with HbA1c 7.5 * Acute hypoxemic respiratory failure * Coronary artery disease * Severe hypokalemia * Consult obtained from nephrology, pulmonary medicine * In regards to COPD exacerbation continue patient on breathing treatments continue patient on chronic steroids * In regards to abdominal ascites continue patient on IV Rocephin to complete 5- day course due to concern for peritonitis., S/p paracentesis 5 L of fluid removed 12/17 * Regards to history of adrenal insufficiency continue patient on hydrocortisone. * In regards to diabetes mellitus, Accu-Cheks ACHS continue patient on correctional insulin continue patient on Lantus monitor for hypoglycemia * In regards to SAHARA and chronic kidney disease nephrology consulted, continue patient on midodrine, continue Lasix, Aldactone managed by nephrology * In regards to iron deficiency anemia continue patient on IV iron replacement * Status is full code
[2023-12-20] MEDS: SPIRONOLACTONE 25 MG TAB PO SCH (20:05)
[2023-12-20 20:28] LABS: Glucose,Whole Blood 263 mg/dL (70-110)
[2023-12-21 07:08] LABS: Glucose,Whole Blood 104 mg/dL (70-110)
[2023-12-21 09:45] LABS: Blood Urea Nitrogen 64.9 mg/dL (9.0-27.0); Calcium 8.6 mg/dL (8.7-10.3); Carbon Dioxide 29.4 mmol/L (21.6-31.8); Chloride 96 mmol/L (96-109); Glucose 98 mg/dL (70-110); Magnesium 1.5 mg/dL (1.5-2.4); Potassium 3.5 mmol/L (3.5-5.5); Sodium 138 mmol/L (135-145)
[2023-12-21 11:41] LABS: Glucose,Whole Blood 223 mg/dL (70-110)
--- NOTE | 2023-12-21 13:04 | P.PN ---
Subjective patient is seen for follow-up for chronic kidney disease. No significant shortness of breath. renal function fairly stable with creatinine at 2.1-2.2 mg/dL. 24 hour urine output at 3.7 L Maintained on Lasix drip for volume overload. Objective - Vital Signs Vital signs: Vital Signs Temp 97.6 F 12/21/23 07:13 Pulse 95 12/21/23 11:25 Resp 20 12/21/23 07:13 BP 100/56 12/21/23 07:13 Pulse Ox 98 12/21/23 11:17 FiO2 Intake & Output 12/20/23 12/21/23 12/21/23 18:59 06:59 18:59 Intake Total 400 324.667 Output Total 1000 2700 900 Balance -600 -2375.333 -900 Intake: Intake, IV Titration 100 84.667 Amount Furosemide 100 mg In 100 84.667 Sodium Chloride 0.9% 90 ml @ 10 MG/HR 10 mls/hr IV .Q10H [facility] Rx#: [id number] Oral 300 240 Output: Urine 1000 2700 900 Other: Voiding Method External Catheter External Catheter # Voids 2 - Exam patient is awake, comfortable, no acute distress Examination of the heart S1 and S2 Examination of the lungs decreased breath sounds at the bases Abdomen is soft distended Examination of lower extremities shows edema 2+ bilaterally PRESSER FIRST exam grossly intact - Labs CBC & Chem 7: 12/20/23 06:47 12/21/23 06:11 Labs: Abnormal Lab Results - Last 24 Hours (Table) 12/20/23 12/20/23 12/21/23 Range/Units 17:00 20:26 06:11 Anion Gap 12.60 H (4.00-12.00) mmol/L BUN 64.9 H (9.0-27.0) mg/dL Creatinine 2.1 H (0.6-1.5) mg/dL Est GFR (CKD-EPI) 35 L (>=60) BUN/Creatinine Ratio 30.90 H (12.00-20.00) Ratio POC Glucose (mg/dL) 281 H 263 H (70-110) mg/dL Calcium 8.6 L (8.7-10.3) mg/dL 12/21/23 Range/Units 11:39 Anion Gap (4.00-12.00) mmol/L BUN (9.0-27.0) mg/dL Creatinine (0.6-1.5) mg/dL Est GFR (CKD-EPI) (>=60) BUN/Creatinine Ratio (12.00-20.00) Ratio POC Glucose (mg/dL) 223 H (70-110) mg/dL Calcium (8.7-10.3) mg/dL Microbiology - Last 24 Hours (Table) 12/17/23 18:00 Blood Culture - Preliminary Blood 12/17/23 18:15 Blood Culture - Preliminary Blood Assessment and Plan Assessment: 1. Chronic kidney disease stage IIIb with creatinine now in the range of 2-3. Etiology is ATN from septic shock in September 2023 as well as hepatorenal syndrome. Creatinine in September 2023 was as low as near 1. Creatinine stable at 2.1-2.2 2. Volume overload. Improving with diuresis. Status post paracentesis December 18, 2023 with 5.7 L drained. 3. Alcohol induced liver cirrhosis. 4. Acute on chronic diastolic CHF with moderate mitral regurgitation. 5. History of adrenal sufficiency maintained on Cortef. 6. Hypokalemia from diuresis. Replaced. 7. Hypervolemic hyponatremia. Better. 8. Diabetes mellitus. 9. Anemia of chronic kidney disease. Iron deficiency noted. Plan: continue with Lasix drip and metolazone Repeat labs in a.m. Continue with increased dose of Aldactone Salt and fluid restriction. Continue Aranesp
--- NOTE | 2023-12-21 13:47 | P.PN ---
Subjective Progress Note Date: 12/21/23 This is a 63-year-old male patient with a known history of cirrhosis with recurrent ascites requiring multiple paracentesis. He also had recently developed acute kidney injury requiring hemodialysis however while he was at the [facility] care facility in [place] he inadvertently had pulled out his cath eter and his last hemodialysis session was December 04, 2023. He had been here for an extended stay back in October 2023. He had undergone large-volume paracentesis on October 25, 2023 with 6.2 L removed no evidence of SBP. A second paracentesis was performed on 11/05/2023 with another 3 L removed. Unclear whether he had any further paracentesis in the outpatient setting. The patient is somewhat of a poor historian. He does have a history of alcoholism, chronic obstructive pulmonary disease, diabetes mellitus type 2, coronary artery disease, hypothyroidism, anemia of chronic disease, chronic thrombocytopenia. He also has a history of Pseudomonas aeruginosa tracheobronchitis previously tr eated with Zosyn. He presented here to the emergency room earlier this morning with increasing shortness of breath. Significant abdominal distention. Chest x-ray shows persistent low lung volumes and right basilar opacity favoring scarring or atelectasis. No acute pulmonary infiltrates. No significant pleural effusions. White count 4.9. Hemoglobin 8.6. Platelets 96,000. INR 0.9. Sodium 132. Potassium 2.7. Bicarb 28. BUN 73. Creatinine 2.29. Glucose 247. AST 23. ALT 21. proBNP 3040. Troponin opponent negative x 1. He has been initiated on Lasix 60 mg IV every 12 hours per nephrology. Continued on Aldactone. He is seen today in consultation in the emergency department. He is currently sitting up on a stretcher. Awake and alert in no acute distress. Denies any worsening shortness of breath, cough or congestion. He is maintaining O2 saturation in the 90s on 3 L/min per nasal cannula. Potassium being replaced. The patient is seen today December 18, 2023 in follow-up on the regular medical floor. He is currently resting in bed. Awake and alert in no acute distress. Containing good O2 saturations in the 90s on room air. He is afebrile. Hemodynamically stable. No worsening shortness of breath, cough or congestion. He is still awaiting a paracentesis to be done. White count 4.7. Hemoglobin 7.6. Platelets 85,000. Sodium 137. Potassium 3.3. Bicarb 29. BUN 67. Creatinine 2.1. Glucose 210. He remains on ceftriaxone. Initiated on iron replacement. Remains on IV diuretics 60 mg every 12 hours and Aldactone per nephrology. Continued on hydrocortisone. He is making urine. Remains on a 1200 cc fluid restriction diet. The patient is seen today December 19, 2023 in follow-up on the regular medical floor. He is currently sitting up in a chair. Having breakfast. Denies any worsening shortness of breath, cough or congestion. He is maintaining O2 saturations in the 90s on 3 L/min per nasal cannula. He is afebrile. Hemodynamically stable. He did undergo a paracentesis with 5.5 L of fluid removed today. Feeling better. Blood cultures revealed no growth. White count 4.9. Hemoglobin 8.3. Platelets 96,000. Sodium 137. Potassium 3.9. Bicarb 27. BUN 64. Creatinine 2.1. Glucose 299. He has been initiated on a Lasix drip at 10 mg/h per nephrology. Continued on Cortef. Remains on antibiotics in the form of ceftriaxone. Continued on bronchodilators. The patient is seen today December 20, 2023 in follow-up on the regular medical floor. He is awake and alert in no acute distress. Denies any worsening shortness of breath, cough or congestion. He is maintaining good O2 saturations in the 90s on room air. He is continued on Lasix drip at 10 mg/h. Cultures revealed no growth. White count 3.3. Hemoglobin 7.5. Platelets 87,000. Sodium 139. Potassium 3.4. Bicarb 30. BUN 63. Creatinine 2.2. Glucose 138. He is continued on bronchodilators, ceftriaxone, Cortef. Remains on lactulose. The patient is seen today December 21, 2023 in follow-up on the regular medical floor. He is currently sitting up in bed. Awake and alert in no acute distress. He is maintaining good O2 saturation in the mid 90s on room air. He is afebrile. Hemodynamically stable. He is continued on a Lasix drip at 10 mg an hour along with Zaroxolyn and Aldactone. Continues to make urine. Sodium 138. Potassium 3.5. Bicarb 29. BUN 65. Creatinine 2.1. Glucose 98. He is continued on ceftriaxone. Continued on bronchodilators and Cortef. Objective - Vital Signs Vital signs: Vital Signs Temp 97.6 F 12/21/23 07:13 Pulse 95 12/21/23 11:25 Resp 20 12/21/23 07:13 BP 100/56 12/21/23 07:13 Pulse Ox 98 12/21/23 11:17 FiO2 Intake & Output 12/20/23 12/21/23 12/21/23 18:59 06:59 18:59 Intake Total 400 324.667 91.167 Output Total 1000 2700 900 Balance -600 -2375.333 -808.833 Intake: Intake, IV Titration 100 84.667 91.167 Amount Furosemide 100 mg In 100 84.667 91.167 Sodium Chloride 0.9% 90 ml @ 10 MG/HR 10 mls/hr IV .Q10H [facility] Rx#: [id number] Oral 300 240 Output: Urine 1000 2700 900 Other: Voiding Method External Catheter External Catheter # Voids 2 - Exam GENERAL EXAM: Alert, pleasant 63-year-old male, resting in bed, on room air, in no apparent distress. HEAD: Normocephalic. EYES: Normal reaction of pupils, equal size. NOSE: Clear with pink turbinates. THROAT: No erythema or exudates. NECK: No masses, no JVD. CHEST: No chest wall deformity. LUNGS: Equal air entry with crackles in the right lung base. CVS: S1 and S2 normal with no audible murmur, regular rhythm. ABDOMEN:Abdominal distention, positive hepatomegaly, normal bowel sounds, no guarding or rigidity. SPINE: No scoliosis or deformity SKIN: No rashes CENTRAL NERVOUS SYSTEM: No focal deficits, tone is normal in all 4 extremities. EXTREMITIES: There is 1-2+ peripheral edema. No clubbing, no cyanosis. Peripheral pulses are intact. - Labs CBC & Chem 7: 12/20/23 06:47 12/21/23 06:11 Labs: Abnormal Lab Results - Last 24 Hours (Table) 12/20/23 12/20/23 12/21/23 Range/Units 17:00 20:26 06:11 Anion Gap 12.60 H (4.00-12.00) mmol/L BUN 64.9 H (9.0-27.0) mg/dL Creatinine 2.1 H (0.6-1.5) mg/dL Est GFR (CKD-EPI) 35 L (>=60) BUN/Creatinine Ratio 30.90 H (12.00-20.00) Ratio POC Glucose (mg/dL) 281 H 263 H (70-110) mg/dL Calcium 8.6 L (8.7-10.3) mg/dL 12/21/23 Range/Units 11:39 Anion Gap (4.00-12.00) mmol/L BUN (9.0-27.0) mg/dL Creatinine (0.6-1.5) mg/dL Est GFR (CKD-EPI) (>=60) BUN/Creatinine Ratio (12.00-20.00) Ratio POC Glucose (mg/dL) 223 H (70-110) mg/dL Calcium (8.7-10.3) mg/dL Microbiology - Last 24 Hours (Table) 12/17/23 18:00 Blood Culture - Preliminary Blood 12/17/23 18:15 Blood Culture - Preliminary Blood Assessment and Plan Assessment: Acute on chronic hypoxemic respiratory failure secondary to significant abdominal distention from ascites. Paracentesis performed 12/18/2023 with 5.5 L removed History of alcoholic cirrhosis with significant recurrent ascites and previous multiple paracentesis, last ones here were October 25, 2023 and November 05 Acute on chronic kidney disease requiring hemodialysis however last treatment was December 04, 2023 as the patient inadvertently pulled out his HD catheter at the [facility]. Currently on a Lasix drip Recent admission for acute hypoxic respiratory failure requiring intubation and subsequent extubation on 10/26/2023 History of Pseudomonas aeruginosa tracheobronchitis possible bronchopneumonia in October 2023 new History of alcoholism Chronic obstructive pulmonary disease Diabetes mellitus, type II History of coronary disease Mitral regurgitation Hypothyroidism Anemia of chronic disease Chronic thrombocytopenia Plan: The patient was seen and evaluated Labs and medications reviewed Stable and on room air Remains on a Lasix drip and oral diuretics Nephrology is following We will continue to follow I have personally seen and examined the patient, performed the documentation and the assessment and plan as written. Number of minutes spent on the visit: 10.
[2023-12-21 17:01] LABS: Glucose,Whole Blood 307 mg/dL (70-110)
--- NOTE | 2023-12-21 18:31 | P.PN ---
Subjective Progress Note Date: 12/21/23 * 63-year-old gentleman with past medical history significant for diabetes mellitus, history of decompensated liver cirrhosis, chronic congestive heart failure diastolic dysfunction, adrenal insufficiency, chronic kidney disease stage IIIb, recent hospitalization in October 2023 for Pseudomonas pneumonia and septic shock, history of COPD, coronary artery disease, presents to the emergency department with complaints of shortness of breath, abdominal discomfort. Patient was recently discharged in the middle of October to rehab facility. During previous hospitalization patient was monitored for hep atorenal syndrome and was seen by nephrology, pulmonary medicine * Patient states he was discharged to rehab for a short while however he went home after that and since then he has been having weakness and shortness of breath and worsening abdominal distention * Workup initiated in ER included CBC which showed WBC 4.9 hemoglobin 8.6 platelet count of 96, INR of 0.9 * Serum chemistry obtained sodium 132 potassium 2.7 chloride 95 BUN 73 creatinine 2.29 calcium 8.1 lactate 1.8 albumin of 3 lipase of 12 * Chest x-ray obtained in ER showed persistent low lung volumes no acute pulmonary infiltrate noted * While in ER patient was noted to have severe hypokalemia and potassium was replaced, IR has been consulted for therapeutic paracentesis * 12/18/2023: Patient seen and evaluated at bedside, plan for paracentesis, potassium replaced nephrology following, continue patient on IV Lasix, patient states he feels better however abdomen still distended. Will follow-up on renal profile and CBC * 12/19/2023: Patient seen and evaluated bedside. Patient is s/p paracentesis 5 L of fluid removed yesterday. 1 dose of albumin ordered today. Follow-up on metabolic panel, will need workup with physical therapy as well. Potential discharge back to facility by 12/21/2023 12/20/2023 Patient is seen and evaluated in follow-up on the regular medical floor. He is awake and alert in no acute distress. Denies any worsening shortness of breath, cough or congestion. He is maintaining good O2 saturations in the 90s on room air. He is continued on Lasix drip at 10 mg/h. Blood cultures revealed no growth. White count 3.3. Hemoglobin 7.5. Platelets 87,000. Sodium 139. Potassium 3.4. Bicarb 30. BUN 63. Creatinine 2.2. Glucose 138. He is continued on bronchodilators, ceftriaxone, Cortef. Remains on lactulose. -- Pulmonary service on board and recommending to continue with current treatment 12/21/2023 Patient is seen and evaluated in follow-up on the regular medical floor. He is currently sitting up in bed. Awake and alert in no acute distress. He is maintaining good O2 saturation in the mid 90s on room air. He is afebrile. Hemodynamically stable. -- Remains on a Lasix drip at 10 mg an hour along with Zaroxolyn and Aldactone. Continues to make urine. -- Sodium 138. Potassium 3.5. Bicarb 29. BUN 65. Creatinine 2.1. Glucose 98. He is continued on ceftriaxone. Continued on bronchodilators and Cortef. Nephrology on board and recommending to continue with IV Lasix drip and m etolazone with close monitoring of renal function electrolytes; remains on increased dose of Aldactone; continue salt and fluid restriction; and is receiving Aranesp Objective - Vital Signs Vital signs: Vital Signs Temp 97.6 F 12/21/23 07:13 Pulse 95 12/21/23 11:25 Resp 20 12/21/23 07:13 BP 100/56 12/21/23 07:13 Pulse Ox 98 12/21/23 11:17 FiO2 Intake & Output 12/20/23 12/21/23 12/21/23 18:59 06:59 18:59 Intake Total 400 324.667 Output Total 1000 2700 900 Balance -600 -3805.333 -900 Intake: Intake, IV Titration 100 84.667 Amount Furosemide 100 mg In 100 84.667 Sodium Chloride 0.9% 90 ml @ 10 MG/HR 10 mls/hr IV .Q10H [facility] Rx#: [id number] Oral 300 240 Output: Urine 1000 2700 900 Other: Voiding Method External Catheter External Catheter # Voids 2 - Exam GENERAL: The patient is alert and oriented x3, nasal cannula in place, ill appearance HEENT: Pupils are round and equally reacting to light. EOMI. CARDIOVASCULAR: S1 and S2 present. Lower extremity edema PULMONARY: Chest is clear to auscultation, no wheezing or crackles. ABDOMEN: Soft, nontender, distended, MUSCULOSKELETAL: No joint swelling or deformity. EXTREMITIES: No cyanosis, clubbing, or pedal edema. NEUROLOGICAL: Gross neurological examination did not reveal any focal deficits. - Labs CBC & Chem 7: 12/20/23 06:47 12/21/23 06:11 Labs: Abnormal Lab Results - Last 24 Hours (Table) 12/20/23 12/20/23 12/21/23 Range/Units 17:00 20:26 06:11 Anion Gap 12.60 H (4.00-12.00) mmol/L BUN 64.9 H (9.0-27.0) mg/dL Creatinine 2.1 H (0.6-1.5) mg/dL Est GFR (CKD-EPI) 35 L (>=60) BUN/Creatinine Ratio 30.90 H (12.00-20.00) Ratio POC Glucose (mg/dL) 281 H 263 H (70-110) mg/dL Calcium 8.6 L (8.7-10.3) mg/dL 12/21/23 Range/Units 11:39 Anion Gap (4.00-12.00) mmol/L BUN (9.0-27.0) mg/dL Creatinine (0.6-1.5) mg/dL Est GFR (CKD-EPI) (>=60) BUN/Creatinine Ratio (12.00-20.00) Ratio POC Glucose (mg/dL) 223 H (70-110) mg/dL Calcium (8.7-10.3) mg/dL Microbiology - Last 24 Hours (Table) 12/17/23 18:00 Blood Culture - Preliminary Blood 12/17/23 18:15 Blood Culture - Preliminary Blood Assessment and Plan Assessment: * Decompensated liver cirrhosis with recurrent ascites * Acute exacerbation of COPD * Acute renal failure on chronic kidney disease stage IV * Deficiency anemia * Adrenal insufficiency on chronic steroids * Diabetes mellitus insulin-dependent with HbA1c 7.5 * Acute hypoxemic respiratory failure * Coronary artery disease * Severe hypokalemia * Consult obtained from nephrology, pulmonary medicine * In regards to COPD exacerbation continue patient on breathing treatments continue patient on chronic steroids * In regards to abdominal ascites continue patient on IV Rocephin to complete 5- day course due to concern for peritonitis., S/p paracentesis 5 L of fluid removed 12/17 * Regards to history of adrenal insufficiency continue patient on hydrocortisone. * In regards to diabetes mellitus, Accu-Cheks ACHS continue patient on correctional insulin continue patient on Lantus monitor for hypoglycemia * In regards to SAHARA and chronic kidney disease nephrology consulted, continue patient on midodrine, continue Lasix, Aldactone managed by nephrology * In regards to iron deficiency anemia continue patient on IV iron replacement * Status is full code
[2023-12-21] MEDS ORDERED: ALBUTEROL NEBULIZED 2.5 MG/3 ML INHALATION PRN (20:51)
[2023-12-21 21:15] LABS: Glucose,Whole Blood 282 mg/dL (70-110)
[2023-12-22 07:06] LABS: Glucose,Whole Blood 56 mg/dL (70-110)
[2023-12-22 07:27] LABS: Glucose,Whole Blood 61 mg/dL (70-110)
[2023-12-22 07:41] LABS: Glucose,Whole Blood 103 mg/dL (70-110)
[2023-12-22] MEDS: ALBUTEROL NEBULIZED 2.5 MG/3 ML INHALATION SCH (10:05)
[2023-12-22 11:16] LABS: African American GFR (CKD) 41 (>60 ml/min/1.73 sqM); Anion Gap 6 mmol/L; Blood Urea Nitrogen 70 mg/dL (9-20); Calcium 7.9 mg/dL (8.4-10.2); Carbon Dioxide 32 mmol/L (22-30); Chloride 95 mmol/L (98-107); Glucose 187 mg/dL (74-99); Non-African American GFR(CKD) 35 (>60 ml/min/1.73 sqM); Potassium 3.3 mmol/L (3.5-5.1); Sodium 133 mmol/L (137-145)
--- NOTE | 2023-12-22 11:42 | P.PN ---
Subjective patient is seen for follow-up for chronic kidney disease. No significant shortness of breath. renal function fairly stable with creatinine at 2.1-2.2 mg/dL. 24 hour urine output at 3.2 L Maintained on Lasix drip for volume overload. Objective - Vital Signs Vital signs: Vital Signs Temp 97.4 F L 12/22/23 07:06 Pulse 74 12/22/23 07:06 Resp 18 12/22/23 07:06 BP 103/61 12/22/23 07:06 Pulse Ox 96 12/22/23 07:06 FiO2 Intake & Output 12/21/23 12/22/23 12/22/23 18:59 06:59 18:59 Intake Total 1171.167 338.167 Output Total 2150 1100 500 Balance -978.833 -761.833 -500 Intake: Intake, IV Titration 91.167 138.167 Amount Furosemide 100 mg In 91.167 138.167 Sodium Chloride 0.9% 90 ml @ 10 MG/HR 10 mls/hr IV .Q10H [facility] Rx#: [id number] Oral 1080 200 Output: Urine 2150 1100 500 Other: Voiding Method External Catheter # Bowel Movements 1 - Exam patient is awake, comfortable, no acute distress Examination of the heart S1 and S2 Examination of the lungs decreased breath sounds at the bases Abdomen is soft distended Examination of lower extremities shows edema 2+ bilaterally [employer] exam grossly intact - Labs CBC & Chem 7: 12/20/23 06:47 12/22/23 10:10 Labs: Abnormal Lab Results - Last 24 Hours (Table) 12/21/23 12/21/23 12/21/23 Range/Units 11:39 17:00 21:02 Sodium (137-145) mmol/L Potassium (3.5-5.1) mmol/L Chloride (98-107) mmol/L Carbon Dioxide (22-30) mmol/L BUN (9-20) mg/dL Creatinine (0.66-1.25) mg/dL Glucose (74-99) mg/dL POC Glucose (mg/dL) 223 H 307 H 282 H (70-110) mg/dL Calcium (8.4-10.2) mg/dL 12/22/23 12/22/23 12/22/23 Range/Units 07:04 07:25 10:10 Sodium 133 L (137-145) mmol/L Potassium 3.3 L (3.5-5.1) mmol/L Chloride 95 L (98-107) mmol/L Carbon Dioxide 32 H (22-30) mmol/L BUN 70 H (9-20) mg/dL Creatinine 1.99 H (0.66-1.25) mg/dL Glucose 187 H (74-99) mg/dL POC Glucose (mg/dL) 56 L 61 L (70-110) mg/dL Calcium 7.9 L (8.4-10.2) mg/dL Assessment and Plan Assessment: 1. Chronic kidney disease stage IIIb with creatinine now in the range of 2-3. Etiology is ATN from septic shock in September 2023 as well as hepatorenal syndrome. Creatinine in September 2023 was as low as near 1. Creatinine stable at 2.1-2.2 2. Volume overload. Improving with diuresis. Status post paracentesis December 18, 2023 with 5.7 L drained. 3. Alcohol induced liver cirrhosis. 4. Acute on chronic diastolic CHF with moderate mitral regurgitation. 5. History of adrenal sufficiency maintained on Cortef. 6. Hypokalemia from diuresis. Replaced. 7. Hypervolemic hyponatremia. Better. 8. Diabetes mellitus. 9. Anemia of chronic kidney disease. Iron deficiency noted. Plan: continue with Lasix drip and metolazone Replace potassium Repeat labs in a.m. Continue with increased dose of Aldactone Salt and fluid restriction. Continue Aranesp
[2023-12-22 12:02] LABS: Glucose,Whole Blood 164 mg/dL (70-110)
[2023-12-22] MEDS: POTASSIUM CHLORIDE ER 20 MEQ TAB.ER PO SCH (12:38)
--- NOTE | 2023-12-22 13:00 | P.PN ---
Subjective Progress Note Date: 12/22/23 This is a 63-year-old male patient with a known history of cirrhosis with recurrent ascites requiring multiple paracentesis. He also had recently developed acute kidney injury requiring hemodialysis however while he was at the [facility] care facility in [place] he inadvertently had pulled out his cath eter and his last hemodialysis session was December 04, 2023. He had been here for an extended stay back in October 2023. He had undergone large-volume paracentesis on October 25, 2023 with 6.2 L removed no evidence of SBP. A second paracentesis was performed on 11/05/2023 with another 3 L removed. Unclear whether he had any further paracentesis in the outpatient setting. The patient is somewhat of a poor historian. He does have a history of alcoholism, chronic obstructive pulmonary disease, diabetes mellitus type 2, coronary artery disease, hypothyroidism, anemia of chronic disease, chronic thrombocytopenia. He also has a history of Pseudomonas aeruginosa tracheobronchitis previously tr eated with Zosyn. He presented here to the emergency room earlier this morning with increasing shortness of breath. Significant abdominal distention. Chest x-ray shows persistent low lung volumes and right basilar opacity favoring scarring or atelectasis. No acute pulmonary infiltrates. No significant pleural effusions. White count 4.9. Hemoglobin 8.6. Platelets 96,000. INR 0.9. Sodium 132. Potassium 2.7. Bicarb 28. BUN 73. Creatinine 2.29. Glucose 247. AST 23. ALT 21. proBNP 3040. Troponin opponent negative x 1. He has been initiated on Lasix 60 mg IV every 12 hours per nephrology. Continued on Aldactone. He is seen today in consultation in the emergency department. He is currently sitting up on a stretcher. Awake and alert in no acute distress. Denies any worsening shortness of breath, cough or congestion. He is maintaining O2 saturation in the 90s on 3 L/min per nasal cannula. Potassium being replaced. The patient is seen today December 18, 2023 in follow-up on the regular medical floor. He is currently resting in bed. Awake and alert in no acute distress. Containing good O2 saturations in the 90s on room air. He is afebrile. Hemodynamically stable. No worsening shortness of breath, cough or congestion. He is still awaiting a paracentesis to be done. White count 4.7. Hemoglobin 7.6. Platelets 85,000. Sodium 137. Potassium 3.3. Bicarb 29. BUN 67. Creatinine 2.1. Glucose 210. He remains on ceftriaxone. Initiated on iron replacement. Remains on IV diuretics 60 mg every 12 hours and Aldactone per nephrology. Continued on hydrocortisone. He is making urine. Remains on a 1200 cc fluid restriction diet. The patient is seen today December 19, 2023 in follow-up on the regular medical floor. He is currently sitting up in a chair. Having breakfast. Denies any worsening shortness of breath, cough or congestion. He is maintaining O2 saturations in the 90s on 3 L/min per nasal cannula. He is afebrile. Hemodynamically stable. He did undergo a paracentesis with 5.5 L of fluid removed today. Feeling better. Blood cultures revealed no growth. White count 4.9. Hemoglobin 8.3. Platelets 96,000. Sodium 137. Potassium 3.9. Bicarb 27. BUN 64. Creatinine 2.1. Glucose 299. He has been initiated on a Lasix drip at 10 mg/h per nephrology. Continued on Cortef. Remains on antibiotics in the form of ceftriaxone. Continued on bronchodilators. The patient is seen today December 20, 2023 in follow-up on the regular medical floor. He is awake and alert in no acute distress. Denies any worsening shortness of breath, cough or congestion. He is maintaining good O2 saturations in the 90s on room air. He is continued on Lasix drip at 10 mg/h. Cultures revealed no growth. White count 3.3. Hemoglobin 7.5. Platelets 87,000. Sodium 139. Potassium 3.4. Bicarb 30. BUN 63. Creatinine 2.2. Glucose 138. He is continued on bronchodilators, ceftriaxone, Cortef. Remains on lactulose. The patient is seen today December 21, 2023 in follow-up on the regular medical floor. He is currently sitting up in bed. Awake and alert in no acute distress. He is maintaining good O2 saturation in the mid 90s on room air. He is afebrile. Hemodynamically stable. He is continued on a Lasix drip at 10 mg an hour along with Zaroxolyn and Aldactone. Continues to make urine. Sodium 138. Potassium 3.5. Bicarb 29. BUN 65. Creatinine 2.1. Glucose 98. He is continued on ceftriaxone. Continued on bronchodilators and Cortef. The patient is seen today December 22, 2023 in follow-up on the regular medical floor. He is sitting up in bed having breakfast. Awake and alert in no acute distress. Denies any worsening shortness of breath, cough or congestion. Maintaining good O2 saturations in the 90s on room air. He remains on a Lasix drip at 10 mg/h. Currently net -1.7 L balance. External catheter in place. Cultures revealed no growth. Sodium 133. Potassium 3.3. Bicarb 32. BUN 70. Creatinine 1.99. Glucose 187. He remains on antibiotics in the form of ceftriaxone. Continued on bronchodilators. Continued on Cortef. Being followed closely by nephrology. Objective - Vital Signs Vital signs: Vital Signs Temp 97.4 F L 12/22/23 07:06 Pulse 74 12/22/23 07:06 Resp 18 12/22/23 07:06 BP 103/61 12/22/23 07:06 Pulse Ox 96 12/22/23 07:06 FiO2 Intake & Output 12/21/23 12/22/23 12/22/23 18:59 06:59 18:59 Intake Total 1171.167 338.167 93.833 Output Total 2150 1100 1000 Balance -978.833 -761.833 -906.167 Intake: Intake, IV Titration 91.167 138.167 93.833 Amount Furosemide 100 mg In 91.167 138.167 93.833 Sodium Chloride 0.9% 90 ml @ 10 MG/HR 10 mls/hr IV .Q10H [facility] Rx#: [id number] Oral 1080 200 Output: Urine 2150 1100 1000 Other: Voiding Method External Catheter # Bowel Movements 1 - Exam GENERAL EXAM: Alert, 63-year-old male, sitting up eating breakfast, on room air, in no apparent distress. HEAD: Normocephalic. EYES: Normal reaction of pupils, equal size. NOSE: Clear with pink turbinates. THROAT: No erythema or exudates. NECK: No masses, no JVD. CHEST: No chest wall deformity. LUNGS: Equal air entry with crackles in the right lung base. CVS: S1 and S2 normal with no audible murmur, regular rhythm. ABDOMEN: Abdominal distention, positive hepatomegaly, normal bowel sounds, no guarding or rigidity. SPINE: No scoliosis or deformity SKIN: No rashes CENTRAL NERVOUS SYSTEM: No focal deficits, tone is normal in all 4 extremities. EXTREMITIES: There is 1-2+ peripheral edema. No clubbing, no cyanosis. Peripheral pulses are intact. - Labs CBC & Chem 7: 12/20/23 06:47 12/22/23 10:10 Labs: Abnormal Lab Results - Last 24 Hours (Table) 12/21/23 12/21/23 12/22/23 Range/Units 17:00 21:02 07:04 Sodium (137-145) mmol/L Potassium (3.5-5.1) mmol/L Chloride (98-107) mmol/L Carbon Dioxide (22-30) mmol/L BUN (9-20) mg/dL Creatinine (0.66-1.25) mg/dL Glucose (74-99) mg/dL POC Glucose (mg/dL) 307 H 282 H 56 L (70-110) mg/dL Calcium (8.4-10.2) mg/dL 12/22/23 12/22/23 12/22/23 Range/Units 07:25 10:10 12:01 Sodium 133 L (137-145) mmol/L Potassium 3.3 L (3.5-5.1) mmol/L Chloride 95 L (98-107) mmol/L Carbon Dioxide 32 H (22-30) mmol/L BUN 70 H (9-20) mg/dL Creatinine 1.99 H (0.66-1.25) mg/dL Glucose 187 H (74-99) mg/dL POC Glucose (mg/dL) 61 L 164 H (70-110) mg/dL Calcium 7.9 L (8.4-10.2) mg/dL Assessment and Plan Assessment: Acute on chronic hypoxemic respiratory failure secondary to significant abdominal distention from ascites. Paracentesis performed 12/18/2023 with 5.5 L removed History of alcoholic cirrhosis with significant recurrent ascites and previous multiple paracentesis, last ones here were October 25, 2023 and November 05, 2023 Acute on chronic kidney disease requiring hemodialysis however last treatment was December 04, 2023 as the patient inadvertently pulled out his HD catheter at the [facility]. Currently on a Lasix drip Recent admission for acute hypoxic respiratory failure requiring intubation and subsequent extubation on 10/26/2023 History of Pseudomonas aeruginosa tracheobronchitis possible bronchopneumonia in October 2023 History of alcoholism Chronic obstructive pulmonary disease Diabetes mellitus, type II History of coronary disease Mitral regurgitation Hypothyroidism Anemia of chronic disease Chronic thrombocytopenia Plan: The patient was seen and evaluated Labs and medications reviewed Stable and on room air Remains on a Lasix drip and oral diuretics He may benefit from another paracentesis prior to discharge We will continue to follow I have personally seen and examined the patient, performed the documentation and the assessment and plan as written. Number of minutes spent on the visit: 10.
--- NOTE | 2023-12-22 14:12 | P.PN ---
Subjective Progress Note Date: 12/22/23 * 63-year-old gentleman with past medical history significant for diabetes mellitus, history of decompensated liver cirrhosis, chronic congestive heart failure diastolic dysfunction, adrenal insufficiency, chronic kidney disease stage IIIb, recent hospitalization in October 2023 for Pseudomonas pneumonia and septic shock, history of COPD, coronary artery disease, presents to the emergency department with complaints of shortness of breath, abdominal discomfort. Patient was recently discharged in the middle of October to rehab facility. During previous hospitalization patient was monitored for hep atorenal syndrome and was seen by nephrology, pulmonary medicine * Patient states he was discharged to rehab for a short while however he went home after that and since then he has been having weakness and shortness of breath and worsening abdominal distention * Workup initiated in ER included CBC which showed WBC 4.9 hemoglobin 8.6 platelet count of 96, INR of 0.9 * Serum chemistry obtained sodium 132 potassium 2.7 chloride 95 BUN 73 creatinine 2.29 calcium 8.1 lactate 1.8 albumin of 3 lipase of 12 * Chest x-ray obtained in ER showed persistent low lung volumes no acute pulmonary infiltrate noted * While in ER patient was noted to have severe hypokalemia and potassium was replaced, IR has been consulted for therapeutic paracentesis * 12/18/2023: Patient seen and evaluated at bedside, plan for paracentesis, potassium replaced nephrology following, continue patient on IV Lasix, patient states he feels better however abdomen still distended. Will follow-up on renal profile and CBC * 12/19/2023: Patient seen and evaluated bedside. Patient is s/p paracentesis 5 L of fluid removed yesterday. 1 dose of albumin ordered today. Follow-up on metabolic panel, will need workup with physical therapy as well. Potential discharge back to facility by 12/21/2023 12/20/2023 Patient is seen and evaluated in follow-up on the regular medical floor. He is awake and alert in no acute distress. Denies any worsening shortness of breath, cough or congestion. He is maintaining good O2 saturations in the 90s on room air. He is continued on Lasix drip at 10 mg/h. Blood cultures revealed no growth. White count 3.3. Hemoglobin 7.5. Platelets 87,000. Sodium 139. Potassium 3.4. Bicarb 30. BUN 63. Creatinine 2.2. Glucose 138. He is continued on bronchodilators, ceftriaxone, Cortef. Remains on lactulose. -- Pulmonary service on board and recommending to continue with current treatment 12/21/2023 Patient is seen and evaluated in follow-up on the regular medical floor. He is currently sitting up in bed. Awake and alert in no acute distress. He is maintaining good O2 saturation in the mid 90s on room air. He is afebrile. Hemodynamically stable. -- Remains on a Lasix drip at 10 mg an hour along with Zaroxolyn and Aldactone. Continues to make urine. -- Sodium 138. Potassium 3.5. Bicarb 29. BUN 65. Creatinine 2.1. Glucose 98. He is continued on ceftriaxone. Continued on bronchodilators and Cortef. Nephrology on board and recommending to continue with IV Lasix drip and m etolazone with close monitoring of renal function electrolytes; remains on increased dose of Aldactone; continue salt and fluid restriction; and is receiving Aranesp 12/22/2023 Patient is seen and evaluated in follow-up on the regular medical floor. He is sitting up in bed having breakfast. Awake and alert in no acute distress. Denies any worsening shortness of breath, cough or congestion. Maintaining good O2 saturations in the 90s on room air. Vital signs are reviewed and stable with temperature of 97.4, pulse 74, respiration 18 and blood pressure 103/61 Cultures revealed no growth. Sodium 133. Potassium 3.3. Bicarb 32. BUN 70. Creatinine 1.99. Glucose 187. -He remains on antibiotics in the form of ceftriaxone. Continued on bronchodilators. Continued on Cortef. -- Patient remains on a Lasix drip at 10 mg/h. Currently net -1.7 L balance. Being followed closely by nephrology. Objective - Vital Signs Vital signs: Vital Signs Temp 97.4 F L 12/22/23 07:06 Pulse 74 12/22/23 07:06 Resp 18 12/22/23 07:06 BP 103/61 12/22/23 07:06 Pulse Ox 96 12/22/23 07:06 FiO2 Intake & Output 12/21/23 12/22/23 12/22/23 18:59 06:59 18:59 Intake Total 1171.167 338.167 Output Total 2150 1100 500 Balance -978.833 -761.833 -500 Intake: Intake, IV Titration 91.167 138.167 Amount Furosemide 100 mg In 91.167 138.167 Sodium Chloride 0.9% 90 ml @ 10 MG/HR 10 mls/hr IV .Q10H [facility] Rx#: [id number] Oral 1080 200 Output: Urine 2150 1100 500 Other: Voiding Method External Catheter # Bowel Movements 1 - Exam GENERAL: The patient is alert and oriented x3, nasal cannula in place, ill appearance HEENT: Pupils are round and equally reacting to light. EOMI. CARDIOVASCULAR: S1 and S2 present. Lower extremity edema PULMONARY: Chest is clear to auscultation, no wheezing or crackles. ABDOMEN: Soft, nontender, distended, MUSCULOSKELETAL: No joint swelling or deformity. EXTREMITIES: No cyanosis, clubbing, or pedal edema. NEUROLOGICAL: Gross neurological examination did not reveal any focal deficits. - Labs CBC & Chem 7: 12/20/23 06:47 12/22/23 10:10 Labs: Abnormal Lab Results - Last 24 Hours (Table) 12/21/23 12/21/23 12/22/23 Range/Units 17:00 21:02 07:04 Sodium (137-145) mmol/L Potassium (3.5-5.1) mmol/L Chloride (98-107) mmol/L Carbon Dioxide (22-30) mmol/L BUN (9-20) mg/dL Creatinine (0.66-1.25) mg/dL Glucose (74-99) mg/dL POC Glucose (mg/dL) 307 H 282 H 56 L (70-110) mg/dL Calcium (8.4-10.2) mg/dL 12/22/23 12/22/23 Range/Units 07:25 10:10 Sodium 133 L (137-145) mmol/L Potassium 3.3 L (3.5-5.1) mmol/L Chloride 95 L (98-107) mmol/L Carbon Dioxide 32 H (22-30) mmol/L BUN 70 H (9-20) mg/dL Creatinine 1.99 H (0.66-1.25) mg/dL Glucose 187 H (74-99) mg/dL POC Glucose (mg/dL) 61 L (70-110) mg/dL Calcium 7.9 L (8.4-10.2) mg/dL Assessment and Plan Assessment: * Decompensated liver cirrhosis with recurrent ascites * Acute exacerbation of COPD * Acute renal failure on chronic kidney disease stage IV * Deficiency anemia * Adrenal insufficiency on chronic steroids * Diabetes mellitus insulin-dependent with HbA1c 7.5 * Acute hypoxemic respiratory failure * Coronary artery disease * Severe hypokalemia * Consult obtained from nephrology, pulmonary medicine * In regards to COPD exacerbation continue patient on breathing treatments continue patient on chronic steroids * In regards to abdominal ascites continue patient on IV Rocephin to complete 5- day course due to concern for peritonitis., S/p paracentesis 5 L of fluid removed 12/17 * Regards to history of adrenal insufficiency continue patient on hydrocortisone. * In regards to diabetes mellitus, Accu-Cheks ACHS continue patient on correctional insulin continue patient on Lantus monitor for hypoglycemia * In regards to SAHARA and chronic kidney disease nephrology consulted, continue patient on midodrine, continue Lasix, Aldactone managed by nephrology * In regards to iron deficiency anemia continue patient on IV iron replacement * Status is full code
[2023-12-22 17:09] LABS: Glucose,Whole Blood 183 mg/dL (70-110)
[2023-12-22 20:12] LABS: Glucose,Whole Blood 176 mg/dL (70-110)
[2023-12-23 06:57] LABS: Glucose,Whole Blood 144 mg/dL (70-110)
--- NOTE | 2023-12-23 11:23 | P.PN ---
Subjective patient is seen for follow-up for chronic kidney disease. No significant shortness of breath. renal function fairly stable with creatinine at 2.1-2.2 mg/dL. 24 hour urine output at 3.5 L Maintained on Lasix drip for volume overload. Objective - Vital Signs Vital signs: Vital Signs Temp 98.1 F 12/23/23 06:57 Pulse 95 12/23/23 06:57 Resp 18 12/23/23 06:57 BP 114/66 12/23/23 06:57 Pulse Ox 96 12/23/23 06:57 FiO2 Intake & Output 12/22/23 12/23/23 12/23/23 18:59 06:59 18:59 Intake Total 583.833 655.500 480 Output Total 1800 1700 Balance -1216.167 -1044.500 480 Intake: Intake, IV Titration 93.833 175.500 Amount Furosemide 100 mg In 93.833 175.500 Sodium Chloride 0.9% 90 ml @ 10 MG/HR 10 mls/hr IV .Q10H [facility] Rx#: [id number] Oral 490 480 480 Output: Urine 1800 1700 Other: Voiding Method External Catheter External Catheter # Bowel Movements 1 1 1 - Exam patient is awake, comfortable, no acute distress Examination of the heart S1 and S2 Examination of the lungs decreased breath sounds at the bases Abdomen is soft distended Examination of lower extremities shows edema 2+ bilaterally [facility] exam grossly intact - Labs CBC & Chem 7: 12/20/23 06:47 12/22/23 10:10 Labs: Abnormal Lab Results - Last 24 Hours (Table) 12/22/23 12/22/23 12/22/23 Range/Units 12:01 17:08 19:54 POC Glucose (mg/dL) 164 H 183 H 176 H (70-110) mg/dL 12/23/23 Range/Units 06:56 POC Glucose (mg/dL) 144 H (70-110) mg/dL Microbiology - Last 24 Hours (Table) 12/17/23 18:00 Blood Culture - Final Blood 12/17/23 18:15 Blood Culture - Final Blood Assessment and Plan Assessment: 1. Chronic kidney disease stage IIIb with creatinine now in the range of 2-3. Etiology is ATN from septic shock in September 2023 as well as hepatorenal syndrome. Creatinine in September 2023 was as low as near 1. Creatinine stable at 2.1-2.2 2. Volume overload. Improving with diuresis. Status post paracentesis December 18, 2023 with 5.7 L drained. 3. Alcohol induced liver cirrhosis. 4. Acute on chronic diastolic CHF with moderate mitral regurgitation. 5. History of adrenal sufficiency maintained on Cortef. 6. Hypokalemia from diuresis. Replaced. 7. Hypervolemic hyponatremia. Better. 8. Diabetes mellitus. 9. Anemia of chronic kidney disease. Iron deficiency noted. Plan: continue with Lasix dripfor another 24 hours and continue with metolazone Replace potassium Repeat labs in a.m. Continue with increased dose of Aldactone Salt and fluid restriction. Continue Aranesp
[2023-12-23 11:32] LABS: Glucose,Whole Blood 283 mg/dL (70-110)
[2023-12-23 12:05] LABS: Magnesium 1.6 mg/dL (1.5-2.4)
[2023-12-23 12:06] LABS: BUN/Creat Ratio 27.08 Ratio (12.00-20.00); Calcium 8.2 mg/dL (8.7-10.3); Carbon Dioxide 32.9 mmol/L (21.6-31.8); Chloride 96 mmol/L (96-109); Glucose 162 mg/dL (70-110); Potassium 4.4 mmol/L (3.5-5.5); Sodium 138 mmol/L (135-145)
[2023-12-23 13:13] LABS: Basophils # (A) 0.01 X 10*3/uL (0.00-0.10); Basophils % (A) 0.3 %; Eosinophils # (A) 0.04 X 10*3/uL (0.04-0.35); Eosinophils % (A) 1.3 %; HCT 24.4 % (39.6-50.0); HGB 7.5 g/dL (13.0-17.0); Lymphocytes % (A) 23.6 %; MCHC 30.7 g/dL (32.0-37.0); MCV 107.5 FL (80.0-97.0); Mean Platelet Volume 9.8 FL (9.5-12.2); Monocytes % (A) 6.7 %; NRBC Per 100 WBC 0 X 10*3/uL (0.00-0.01); Neutrophils # (A) 2.01 X 10*3/uL (1.80-7.70); Neutrophils % (A) 67.8 %; Platelet Count 76 X 10*3/uL (140-440); RBC 2.27 X 10*6/uL (4.40-5.60); RDW 19.9 % (11.5-14.5); WBC 2.97 X 10*3/uL (4.50-10.00)
--- NOTE | 2023-12-23 15:15 | CDI ---
Documentation Clarification Form Date: 12/23/2023 02:40:00 PM From: Vidhya Mcgowan RN CCDS Phone: [phone] Admit Date: 12/18/2023 12:53:00 PM Patient Name: Nathaniel Abarca Visit Number: [id number] Discharge Date: ATTENTION: The Clinical Documentation Specialists (CDI) and [facility] Coding Staff appreciate your assistance in clarifying documentation. Please respond to the clarification below the line at the bottom and electronically sign. The CDI & [facility] Coding staff will review the response and follow-up if needed. Please note: Queries are made part of the Legal Health Record. If you have any questions, please contact the author of this message via ITS. Dr. Canales E Sheet There is documentation of concern for peritonitis, 12/17 - 12/21 Medicine progress notes. Additional clarification is requested. History/Risk Factors: 63-year-old Male presents to the ED with shortness of breath, weakness and worsening abdominal distention. Medical history of: Alcoholic cirrhosis with recurrent ascites requiring multiple paracentesis. COPD, CKD IV, CAD and DM Clinical Indicators: VSS, 12/16: B/P 87/70; HR 105; Temp 97.8F oral; RR 24; SpO2 99% 3L nasal cannula Abdominal exam 12/16: Soft , non tender, distended Lab, 12/16: Wbc 4.9, Lipase 12, Total protein 5.8, Albumin 3.0, Alk Phos 153, Calcium Paracentesis: 10/25/2023 Large volume 6.2L no evidence of SBP 11/05/2023 3L removed 12/18/2023 5.7L removed Medicine progress notes 12/17 12/21: In regards to abdominal ascites continue patient on IV Rocephin to complete 5-day course due to concern for peritonitis. Treatment: 12/16 25g IV albumin pre and post paracentesis, 12/17 Paracentesis 5.7L removed Can you please clarify peritonitis? [ ] Peritonitis POA [ ] Peritonitis Ruled out [ ] Other, please specify [ x ] Unable to determine (Template Last Revised: November 2020) MTDD
[2023-12-23 17:10] LABS: Glucose,Whole Blood 314 mg/dL (70-110)
--- NOTE | 2023-12-23 19:14 | P.PN ---
Subjective 63-year-old male with a PMH of type II DM, hypertension, hyperlipidemia, anxiety, alcohol abuse and COPD, Coronary artery disease with occluded right coronary artery subacute versus chronic Alcoholic Liver cirrhosis/ascites, Chronic kidney disease, Chronic anemia Is awake alert, he reports improvement No respiratory symptoms He has ascites and leg edema, improving, while he is continue on Lasix drip Continue with Lasix drip for another 24 hours Also he is on metolazone, ceftriaxone. Patient denies any other new symptoms Possible discharge in 24 to 48 hours if he keeps improving Objective - Vital Signs Vital signs: Vital Signs Temp 98.2 F 12/23/23 11:35 Pulse 92 12/23/23 11:35 Resp 18 12/23/23 11:35 BP 115/64 12/23/23 11:35 Pulse Ox 98 12/23/23 11:35 FiO2 Intake & Output 12/22/23 12/23/23 12/23/23 18:59 06:59 18:59 Intake Total 583.833 655.500 480 Output Total 1800 1700 550 Balance -1216.167 -1044.500 -70 Intake: Intake, IV Titration 93.833 175.500 Amount Furosemide 100 mg In 93.833 175.500 Sodium Chloride 0.9% 90 ml @ 10 MG/HR 10 mls/hr IV .Q10H [facility] Rx#: [id number] Oral 490 480 480 Output: Urine 1800 1700 550 Other: Voiding Method External Catheter External Catheter # Bowel Movements 1 1 1 - Exam GENERAL: The patient is alert and oriented x3, not in any acute distress. Well developed, well nourished. HEENT: Pupils are round and equally reacting to light. EOMI. No scleral icterus. No conjunctival pallor. Normocephalic, atraumatic. No pharyngeal erythema. No thyromegaly. CARDIOVASCULAR: S1 and S2 present. No murmurs, rubs, or gallops. PULMONARY: Chest is clear to auscultation, no wheezing , no crackles. -ABDOMEN: Soft, nontender, mildly distended, normoactive bowel sounds. No pa lpable organomegaly. MUSCULOSKELETAL: No joint swelling or deformity. -EXTREMITIES: No cyanosis, clubbing, or b/l leg edema. NEUROLOGICAL: Gross neurological examination did not reveal any focal deficits. SKIN: No rashes. no petechiae. - Labs CBC & Chem 7: 12/23/23 05:36 12/23/23 05:36 Labs: Abnormal Lab Results - Last 24 Hours (Table) 12/22/23 12/22/23 12/23/23 Range/Units 17:08 19:54 05:36 Carbon Dioxide 32.9 H (21.6-31.8) mmol/L BUN 65.0 H (9.0-27.0) mg/dL Creatinine 2.4 H (0.6-1.5) mg/dL Est GFR (CKD-EPI) 30 L (>=60) BUN/Creatinine Ratio 27.08 H (12.00-20.00) Ratio Glucose 162 H (70-110) mg/dL POC Glucose (mg/dL) 183 H 176 H (70-110) mg/dL Calcium 8.2 L (8.7-10.3) mg/dL 12/23/23 12/23/23 Range/Units 06:56 11:31 Carbon Dioxide (21.6-31.8) mmol/L BUN (9.0-27.0) mg/dL Creatinine (0.6-1.5) mg/dL Est GFR (CKD-EPI) (>=60) BUN/Creatinine Ratio (12.00-20.00) Ratio Glucose (70-110) mg/dL POC Glucose (mg/dL) 144 H 283 H (70-110) mg/dL Calcium (8.7-10.3) mg/dL Microbiology - Last 24 Hours (Table) 12/17/23 18:00 Blood Culture - Final Blood 12/17/23 18:15 Blood Culture - Final Blood Assessment and Plan Assessment: Fluids overload, with anasarca secondary to hepatorenal disease decpmpensted liver cirrhosis with moderate ascites, Pancytopenia, chronic mild Chronic kidney disease, stage IIIb Anemia of chronic disease Acute on chronic diastolic CHF with ejection fraction 50-55% Mitral regurgitation COPD with no exacerbation history of Avtar disease history of urinary retention Plan: Start the patient on IV Lasix drip and metolazone Continue with Aldactone Fluid restriction Monitor electrolytes and creatinine Monitor bladder scan Monitor input and output nephrology consult on the case Labs and medication were reviewed.. Continue same treatment. Continue with symptomatic treatment. Resume home medication. Monitor labs and vitals. DVT and GI prophylaxis. Further recommendations as per clinical course of the patient DVT prophylaxis: Subcutaneous heparin GI Prophylaxis: Pepcid
[2023-12-23 20:37] LABS: Glucose,Whole Blood 267 mg/dL (70-110)
[2023-12-24 06:58] LABS: Glucose,Whole Blood 222 mg/dL (70-110)
[2023-12-24 11:46] LABS: Glucose,Whole Blood 331 mg/dL (70-110)
[2023-12-24 12:54] VITALS: BP 111/70; PULSE 87; RESP 22; TEMP 97.7
[2023-12-24 15:03] LABS: African American GFR (CKD) 38 (>60 ml/min/1.73 sqM); Anion Gap 9 mmol/L; Blood Urea Nitrogen 71 mg/dL (9-20); Calcium 8.1 mg/dL (8.4-10.2); Carbon Dioxide 30 mmol/L (22-30); Chloride 92 mmol/L (98-107); Glucose 261 mg/dL (74-99); Magnesium 1.5 mg/dL (1.6-2.3); Non-African American GFR(CKD) 33 (>60 ml/min/1.73 sqM); Potassium 3.6 mmol/L (3.5-5.1); Sodium 131 mmol/L (137-145)
--- NOTE | 2023-12-24 16:10 | P.DS ---
Providers Date of admission: 12/18/23 12:53 Attending physician: Nelly Tong Consults: 12/17/23 09:26 Consult Physician Routine Consulting Provider: Sirni Medina Consult Reason/Comments: Acute renal failure, chronic kidney disease history of hepatorenal Do you want consulting provider notified?: Yes 12/17/23 09:29 Consult Physician Routine Consulting Provider: Macie Herman Consult Reason/Comments: COPD exacerbation Do you want consulting provider notified?: Yes Primary care physician: Megan Langford DO Hospital Course: Final Diagnosis Fluids overload, with anasarca secondary to hepatorenal disease decpmpensted liver cirrhosis with moderate ascites, Pancytopenia, chronic mild Chronic kidney disease, stage IIIb Anemia of chronic disease Acute on chronic diastolic CHF with ejection fraction 50-55% Mitral regurgitation COPD with no exacerbation history of Hughes disease history of urinary retention Discharge Disposition Patient is stable medically for discharge to subacute rehabilitation to [facility]. He has been transitioned to oral diuretics and will need to follow up closely with nephrology and GI in the office. Follow up with Interventional Radiology on 01/07/24 @8:00am for next outpatient Paracentesis. He continues on a fluid restriction 1200 mls/24 hours. Hospital Course 63-year-old male with a PMH of type II DM, hypertension, hyperlipidemia, anxiety , alcohol abuse and COPD, Coronary artery disease with occluded right coronary artery subacute versus chronic Alcoholic Liver cirrhosis/ascites, Chronic kidney disease, Chronic anemia Is awake alert, he reports improvement No respiratory symptoms He has ascites and leg edema, improving, while he is continue on Lasix drip Continue with Lasix drip for another 24 hours Also he is on metolazone, ceftriaxone. Patient denies any other new symptoms Possible discharge in 24 to 48 hours if he keeps improving 12/24/2023 Patient has been taken off the lasix gtt; was transitioned to oral diuretics and cleared by nephrology for discharge. He will discharge on oral torsemide and remains on metolazone. He underwent ultrasound guided paracentesis this admission on 12/18/23 with 5.5 L of straw colored fluid removed. He is not having any abdominal pain. He was evaluated by nephrology and pulmonary. Hemoglobin remains stable at 7.5. White blood cell count is 2.97. Sodium 131. BUN 71, creatinine 2.10. Magnesium 1.5. Hemodynamically he is stable. He will be discharged to rehab as above. Thank you for allowing us to participate in the care of this patient. The impression and plan of care has been dictated by Rebekah Augustin, Nurse Practitioner acting as scribe only. Dr. Ortega MD I have performed a history and physical examination and medical decision making of this patient, discussed the same with the dictator, and agree with the dictators assessment and plan as written, documented as a scribe. Based on total visit time, I have performed 100% of this visit. Patient Condition at Discharge: Fair Plan - Discharge Summary Discharge Rx Participant: No New Discharge Prescriptions: New Magnesium Oxide [Mag-Ox] 400 mg PO DAILY tab Acetaminophen Tab [Tylenol] 650 mg PO Q6HR PRN tab PRN Reason: Mild Pain Or Fever > 100.5 Continue Lactulose 10 gm PO BID Atorvastatin [Lipitor] 20 mg PO HS Hydrocortisone [Cortef] 20 mg PO HS metOLazone [Zaroxolyn] 5 mg PO DAILY Fluticasone Propionate [Flovent Diskus] 1 puff INHALATION RT-BID Levothyroxine Sodium [Synthroid] 100 mcg PO DAILY Insulin Aspart [NovoLOG Flexpen] See Protocol SQ ACHS Torsemide [Demadex] 40 mg PO BID Pantoprazole [Protonix] 40 mg PO DAILY Insulin Detemir [Levemir Flexpen] 23 unit SQ HS Spironolactone 25 mg PO DAILY Hydrocortisone [Cortef] 10 mg PO DAILY Calcium Acetate [PhosLo] 1,334 mg PO PC-TID Albuterol Nebulized [Ventolin Nebulized] 2.5 mg INHALATION RT-Q4H Midodrine HCl 5 mg PO TID Changed oxyCODONE HCL [oxyCODONE HCL (IR)] 5 mg PO Q12H PRN 2 Days #4 cap PRN Reason: Pain ALPRAZolam [Xanax] 0.25 mg PO BID PRN #3 tab PRN Reason: Anxiety Discharge Medication List Lactulose 10 gm PO BID 10/07/23 [History] Atorvastatin [Lipitor] 20 mg PO HS 10/21/23 [History] Hydrocortisone [Cortef] 20 mg PO HS 11/10/23 [History] Fluticasone Propionate [Flovent Diskus] 1 puff INHALATION RT-BID 12/16/23 [History] Insulin Detemir [Levemir Flexpen] 23 unit SQ HS 12/16/23 [History] Pantoprazole [Protonix] 40 mg PO DAILY 12/16/23 [History] Spironolactone 25 mg PO DAILY 12/16/23 [History] Torsemide [Demadex] 40 mg PO BID 12/16/23 [History] metOLazone [Zaroxolyn] 5 mg PO DAILY 12/16/23 [History] Albuterol Nebulized [Ventolin Nebulized] 2.5 mg INHALATION RT-Q4H 12/17/23 [History] Calcium Acetate [PhosLo] 1,334 mg PO PC-TID 12/17/23 [History] Hydrocortisone [Cortef] 10 mg PO DAILY 12/17/23 [History] Insulin Aspart [NovoLOG Flexpen] See Protocol SQ ACHS 12/17/23 [History] Levothyroxine Sodium [Synthroid] 100 mcg PO DAILY 12/17/23 [History] Midodrine HCl 5 mg PO TID 12/17/23 [History] ALPRAZolam [Xanax] 0.25 mg PO BID PRN #3 tab 12/24/23 [Rx] Acetaminophen Tab [Tylenol] 650 mg PO Q6HR PRN tab 12/24/23 [Rx] Magnesium Oxide [Mag-Ox] 400 mg PO DAILY tab 12/24/23 [Rx] oxyCODONE HCL [oxyCODONE HCL (IR)] 5 mg PO Q12H PRN 2 Days #4 cap 12/24/23 [Rx] Follow up Appointment(s)/Referral(s): Megan Langford DO [Primary Care Provider] - 1-2 days Leigh Ann Lynch MD [STAFF PHYSICIAN] - 1 Week Srini Medina DO [STAFF PHYSICIAN] - 1 Week Activity/Diet/Wound Care/Special Instructions: Follow up with Interventional Radiology on 01/07/24 @8:00am for next outpatient Paracentesis Discharge Disposition: TRANSFER TO SNF/ECF
--- NOTE | 2023-12-24 16:42 | P.DS ---
Providers Date of admission: 12/18/23 12:53 Attending physician: Nelly Tong Consults: 12/17/23 09:26 Consult Physician Routine Consulting Provider: Srini Medina Consult Reason/Comments: Acute renal failure, chronic kidney disease history of hepatorenal Do you want consulting provider notified?: Yes 12/17/23 09:29 Consult Physician Routine Consulting Provider: Macie Herman Consult Reason/Comments: COPD exacerbation Do you want consulting provider notified?: Yes Primary care physician: Megan Langford DO Hospital Course: Diagnoses Fluids overload, with anasarca secondary to hepatorenal disease decpmpensted liver cirrhosis with moderate ascites, Pancytopenia, chronic mild Chronic kidney disease, stage IIIb Anemia of chronic disease Acute on chronic diastolic CHF with ejection fraction 50-55% Mitral regurgitation COPD with no exacerbation history of Avtar disease history of urinary retention Hospital course: 63-year-old male with a PMH of type II DM, hypertension, hyperlipidemia, anxiety, alcohol abuse and COPD, Coronary artery disease with occluded right coronary artery subacute versus chronic Alcoholic Liver cirrhosis/ascites, Chronic kidney disease, Chronic anemia who presents from his custodial for increased shortness of breath, his dyspnea is secondary to his abdominal distention. He was placed on Lasix drip 10 mg/h also he underwent paracentesis with 5.5 L of fluid removed. Patient awake and alert. Denies abdominal pain. No diarrhea or vomiting. No chest pain or dyspnea. No other new complaint Patient cleared for discharge by pulmonary and nephrology team Patient is recommended to undergo paracentesis every 2 weeks to 3 weeks for removal of the fluid. Problems and management plan were discussed with the patient and he verbalized understanding and acceptance Patient was found stable and can be discharged home in guarded prognosis however he needs follow-up as an outpatient. Patient was instructed to follow up with PCP within one week and patient agrees Recommend to follow-up with GI Dr. Larry and 1 to [address] Devi in 1 week after discharge Patient will follow-up with IR on 01/06 for paracentesis outpatient Physical exam Gen: patient is a AAOx3, no distress CVS: S1-S2, RRR, no murmur Lungs: B/L CTA, no wheezing -Abdomen: soft, distention, no tenderness, positive bowel sounds Extremity: no leg edema or induration Time spent more than 35 minutes Patient Condition at Discharge: Fair Plan - Discharge Summary Discharge Rx Participant: No New Discharge Prescriptions: New Magnesium Oxide [Mag-Ox] 400 mg PO DAILY tab Acetaminophen Tab [Tylenol] 650 mg PO Q6HR PRN tab PRN Reason: Mild Pain Or Fever > 100.5 Continue Lactulose 10 gm PO BID Atorvastatin [Lipitor] 20 mg PO HS Hydrocortisone [Cortef] 20 mg PO HS Fluticasone Propionate [Flovent Diskus] 1 puff INHALATION RT-BID Levothyroxine Sodium [Synthroid] 100 mcg PO DAILY Insulin Aspart [NovoLOG Flexpen] See Protocol SQ ACHS ALPRAZolam [Xanax] 0.25 mg PO BID Pantoprazole [Protonix] 40 mg PO DAILY Insulin Detemir [Levemir Flexpen] 23 unit SQ HS Hydrocortisone [Cortef] 10 mg PO DAILY Calcium Acetate [PhosLo] 1,334 mg PO PC-TID Albuterol Nebulized [Ventolin Nebulized] 2.5 mg INHALATION RT-Q4H Midodrine HCl 5 mg PO TID Changed oxyCODONE HCL [oxyCODONE HCL (IR)] 5 mg PO Q12H PRN 2 Days #4 cap PRN Reason: Pain No Action metOLazone [Zaroxolyn] 5 mg PO DAILY Torsemide [Demadex] 40 mg PO BID Spironolactone 25 mg PO DAILY Discharge Medication List Lactulose 10 gm PO BID 10/07/23 [History] Atorvastatin [Lipitor] 20 mg PO HS 10/21/23 [History] Hydrocortisone [Cortef] 20 mg PO HS 11/10/23 [History] ALPRAZolam [Xanax] 0.25 mg PO BID 11/13/23 [History] Fluticasone Propionate [Flovent Diskus] 1 puff INHALATION RT-BID 12/16/23 [History] Insulin Detemir [Levemir Flexpen] 23 unit SQ HS 12/16/23 [History] Pantoprazole [Protonix] 40 mg PO DAILY 12/16/23 [History] Spironolactone 25 mg PO DAILY 12/16/23 [History] Torsemide [Demadex] 40 mg PO BID 12/16/23 [History] metOLazone [Zaroxolyn] 5 mg PO DAILY 12/16/23 [History] Albuterol Nebulized [Ventolin Nebulized] 2.5 mg INHALATION RT-Q4H 12/17/23 [History] Calcium Acetate [PhosLo] 1,334 mg PO PC-TID 12/17/23 [History] Hydrocortisone [Cortef] 10 mg PO DAILY 12/17/23 [History] Insulin Aspart [NovoLOG Flexpen] See Protocol SQ ACHS 12/17/23 [History] Levothyroxine Sodium [Synthroid] 100 mcg PO DAILY 12/17/23 [History] Midodrine HCl 5 mg PO TID 12/17/23 [History] Acetaminophen Tab [Tylenol] 650 mg PO Q6HR PRN tab 12/24/23 [Rx] Magnesium Oxide [Mag-Ox] 400 mg PO DAILY tab 12/24/23 [Rx] oxyCODONE HCL [oxyCODONE HCL (IR)] 5 mg PO Q12H PRN 2 Days #4 cap 12/24/23 [Rx] Follow up Appointment(s)/Referral(s): Macie Herman MD [STAFF PHYSICIAN] - 2 Weeks Megan Langford DO [Primary Care Provider] - 1-2 days Srini Medina DO [STAFF PHYSICIAN] - 1 Week Activity/Diet/Wound Care/Special Instructions: Follow up with Interventional Radiology on 01/07/24 @8:00am for next outpatient Paracentesis
--- NOTE | 2023-12-24 18:35 | P.PN ---
Subjective patient is seen for follow-up for chronic kidney disease. No significant shortness of breath. renal function fairly stable with creatinine at 2.1-2.2 mg/dL. 24 hour urine output at 3.5 L Maintained on Lasix drip for volume overload. No complaints today. Objective - Vital Signs Vital signs: Vital Signs Temp 97.7 F 12/24/23 12:23 Pulse 87 12/24/23 12:23 Resp 22 12/24/23 12:23 BP 111/70 12/24/23 12:23 Pulse Ox 98 12/24/23 12:23 FiO2 Intake & Output 12/23/23 12/24/23 12/24/23 18:59 06:59 18:59 Intake Total 820 675.5 820 Output Total 1050 1200 700 Balance -230 -524.5 120 Intake: Intake, IV Titration 100 75.5 100 Amount Furosemide 100 mg In 100 75.5 100 Sodium Chloride 0.9% 90 ml @ 10 MG/HR 10 mls/hr IV .Q10H [facility] Rx#: [id number] Oral 720 600 720 Output: Urine 1050 1200 700 Other: Voiding Method External Catheter External Catheter External Catheter # Bowel Movements 1 1 - Exam patient is awake, comfortable, no acute distress Abdomen is soft distended Examination of lower extremities shows edema 2+ bilaterally 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 grossly intact - Labs CBC & Chem 7: 12/23/23 05:36 12/24/23 14:36 Labs: Abnormal Lab Results - Last 24 Hours (Table) 12/23/23 12/24/23 12/24/23 Range/Units 20:36 06:57 11:44 Sodium (137-145) mmol/L Chloride (98-107) mmol/L BUN (9-20) mg/dL Creatinine (0.66-1.25) mg/dL Glucose (74-99) mg/dL POC Glucose (mg/dL) 267 H 222 H 331 H (70-110) mg/dL Calcium (8.4-10.2) mg/dL Magnesium (1.6-2.3) mg/dL 12/24/23 Range/Units 14:36 Sodium 131 L (137-145) mmol/L Chloride 92 L (98-107) mmol/L BUN 71 H (9-20) mg/dL Creatinine 2.10 H (0.66-1.25) mg/dL Glucose 261 H (74-99) mg/dL POC Glucose (mg/dL) (70-110) mg/dL Calcium 8.1 L (8.4-10.2) mg/dL Magnesium 1.5 L (1.6-2.3) mg/dL Assessment and Plan Assessment: 1. Chronic kidney disease stage IIIb with creatinine now in the range of 2-3. Etiology is ATN from septic shock in September 2023 as well as hepatorenal syndrome. Creatinine in September 2023 was as low as near 1. Creatinine stable at 2.1-2.2 2. Volume overload. Improving with diuresis. Status post paracentesis December 18, 2023 with 5.7 L drained. 3. Alcohol induced liver cirrhosis. 4. Acute on chronic diastolic CHF with moderate mitral regurgitation. 5. History of adrenal sufficiency maintained on Cortef. 6. Hypokalemia from diuresis. Replaced. 7. Hypervolemic hyponatremia. Better. 8. Diabetes mellitus. 9. Anemia of chronic kidney disease. Iron deficiency noted. Plan: Okay to discharge patient on home dose of Demadex. Add Zaroxolyn and follow-up in the office in 1 week
--- NOTE | 2023-12-25 08:09 | CDI ---
Documentation Clarification Form Date: 12/25/2023 08:06:20 AM From: Vidhya Mcgowan RN CCDS Phone: [phone] Admit Date: 12/18/2023 12:53:00 PM Patient Name: Nathaniel Abarca Visit Number: [id number] Discharge Date: 12/24/2023 05:21:00 PM ATTENTION: The Clinical Documentation Specialists (CDI) and [facility] Coding Staff appreciate your assistance in clarifying documentation. Please respond to the clarification below the line at the bottom and electronically sign. The CDI & [facility] Coding staff will review the response and follow-up if needed. Please note: Queries are made part of the Legal Health Record. If you have any questions, please contact the author of this message via ITS. Dr. Tyrone Victoria There is documentation of concern for peritonitis, 12/17 - 12/21 Medicine progress notes. Additional clarification is requested. History/Risk Factors: 63-year-old Male presents to the ED with shortness of breath, weakness and worsening abdominal distention. Medical history of: Alcoholic cirrhosis with recurrent ascites requiring multiple paracentesis. COPD, CKD IV, CAD and DM Clinical Indicators: VSS, 12/16: B/P 87/70; HR 105; Temp 97.8F oral; RR 24; SpO2 99% 3L nasal cannula Abdominal exam 12/16: Soft , non tender, distended Lab, 12/16: Wbc 4.9, Lipase 12, Total protein 5.8, Albumin 3.0, Alk Phos 153, Calcium Paracentesis: 10/25/2023 Large volume 6.2L no evidence of SBP 11/05/2023 3L removed 12/18/2023 5.7L removed Medicine progress notes 12/17 12/21: In regards to abdominal ascites continue patient on IV Rocephin to complete 5-day course due to concern for peritonitis. Treatment: 12/16 25g IV albumin pre and post paracentesis, 12/17 Paracentesis 5.7L removed Can you please clarify peritonitis? [y ] Peritonitis POA [ ] Peritonitis Ruled out [ ] Other, please specify [ ] Unable to determine (Template Last Revised: November 2020) MTDD
== END 2023-12-24 17:21 | DRG 432 ==
LOC: EC 04:15 → 6NMEDSUR 05:45 → 5NMEDONC 16:42 → OBSVTOIN 12-18 12:53
PROVIDERS: ADMIT Hospitalist; ATTEND Hospitalist
PROC: 0W9G3ZZ Drainage of Peritoneal Cavity, Percutaneous Approach (ICD-10-PCS; principal; 2023-12-18)
DX: K70.31 Alcoholic cirrhosis of liver with ascites (principal); I50.33 Acute on chronic diastolic (congestive) heart failure; J96.21 Acute and chronic respiratory failure with hypoxia; K76.7 Hepatorenal syndrome; K65.9 Peritonitis, unspecified; D61.818 Other pancytopenia; E27.1 Primary adrenocortical insufficiency; E87.1 Hypo-osmolality and hyponatremia; N17.9 Acute kidney failure, unspecified; J44.1 Chronic obstructive pulmonary disease with (acute) exacerbation; I13.0 Hypertensive heart and chronic kidney disease with heart failure and stage 1 through stage 4 chronic kidney disease, or unspecified chronic kidney disease; D63.1 Anemia in chronic kidney disease; E11.22 Type 2 diabetes mellitus with diabetic chronic kidney disease; I25.82 Chronic total occlusion of coronary artery; N18.32 Chronic kidney disease, stage 3b; F10.20 Alcohol dependence, uncomplicated; D50.9 Iron deficiency anemia, unspecified; I34.0 Nonrheumatic mitral (valve) insufficiency; E03.9 Hypothyroidism, unspecified; Z79.4 Long term (current) use of insulin; Z28.310 Unvaccinated for COVID-19; E87.6 Hypokalemia; E78.5 Hyperlipidemia, unspecified; I25.10 Atherosclerotic heart disease of native coronary artery without angina pectoris; F41.9 Anxiety disorder, unspecified; Z79.51 Long term (current) use of inhaled steroids; Z79.52 Long term (current) use of systemic steroids; Z79.890 Hormone replacement therapy; Z79.899 Other long term (current) drug therapy; Z87.891 Personal history of nicotine dependence
CPT/HCPCS: 36415; 49083; 71045; 80048; 80053; 82140; 82728; 83036; 83540; 83550; 83605; 83690; 83735; 83880; 84100; 84132; 84484; 85025; 85027; 85610; 85730; 87040; 93005; 94640; 94760; 96361; 96365; 96367; 96375; 99285

== ENCOUNTER 2024-01-03 18:41 | Emergency (ER) | payer MEDICARE, OTHER ==
[2024-01-03 19:24] VITALS: TEMP 97.8
[2024-01-03 19:25] LABS: Anisocytosis Slight; Basophils % (A) 1 %; Eosinophils # (A) 0.1 k/uL (0-0.7); Eosinophils % (A) 2 %; HCT 26.8 % (39.0-53.0); HGB 8.4 gm/dL (13.0-17.5); Lymphocytes # (A) 0.7 k/uL (1.0-4.8); Lymphocytes % (A) 23 %; MCH 33.1 pg (25.0-35.0); MCHC 31.5 g/dL (31.0-37.0); MCV 105.3 fL (80.0-100.0); Macrocytosis Marked; Mean Platelet Volume 9.2; Monocytes # (A) 0.2 k/uL (0-1.0); Monocytes % (A) 7 %; Neutrophils % (A) 66 %; RBC 2.54 m/uL (4.30-5.90); RDW 18.5 % (11.5-15.5); WBC 3.1 k/uL (3.8-10.6)
[2024-01-03 19:33] LABS: Partial Thromboplastin Time 23.6 sec (22.0-30.0); Prothrombin Time 10.8 sec (10.0-12.5)
[2024-01-03 19:37] LABS: Platelet Count 88 k/uL (150-450)
[2024-01-03 19:38] LABS: ALT 33 U/L (4-49); AST 42 U/L (17-59); African American GFR (CKD) 51 (>60 ml/min/1.73 sqM); Albumin 2.9 g/dL (3.5-5.0); Alkaline Phosphatase 177 U/L (38-126); Anion Gap 5 mmol/L; Blood Urea Nitrogen 72 mg/dL (9-20); Calcium 8.2 mg/dL (8.4-10.2); Carbon Dioxide 36 mmol/L (22-30); Chloride 90 mmol/L (98-107); Glucose 246 mg/dL (74-99); Magnesium 1.8 mg/dL (1.6-2.3); Non-African American GFR(CKD) 44 (>60 ml/min/1.73 sqM); Potassium 3.6 mmol/L (3.5-5.1); Sodium 131 mmol/L (137-145); Total Bilirubin 0.6 mg/dL (0.2-1.3); Total Protein 5.9 g/dL (6.3-8.2)
[2024-01-03 19:40] LABS: Lactic Acid, Venous 1.7 mmol/L (0.7-2.0)
[2024-01-03 19:45] LABS: NT-Pro-B-Type Natriuretic Pept 3020 pg/mL
--- NOTE | 2024-01-03 20:50 | XR ---
EXAMINATION TYPE: XR chest 2V DATE OF EXAM: 01/03/2024 7:35 PM CLINICAL INDICATION:Male, 63 years old with history of difficulty breathing; [facility] COMPARISON: Chest x-ray 12/17/2023 and earlier exams TECHNIQUE: XR chest 2V. Frontal and lateral views of the chest.. FINDINGS: Lines/Tubes/Devices: No indwelling lines are seen. Extrinsic densities over the chest including monitor leads. Heart/mediastinum: Heart appears mildly to moderately enlarged. Mildly tortuous aorta. Central airway s appear patent. Mediastinum appears within normal limits. Pulmonary vascularity: Possible mild congestion superimposed on chronic changes. Lungs/Pleura: Similar appearance of the lungs with scattered senescent parenchymal changes. Small aries ency at the lateral aspect of the right lung mimicking pneumothorax, shown on prior CT to represent s urface blebs. Vague right basilar pleural/parenchymal opacities with obscuration of the CP angle and diaphragm. Right base pleural calcifications, better seen on CT. Musculoskeletal: No acute osseous abnormality demonstrated in the limits of the exam. Degenerative c hanges of the shoulders, greatest on the right. Other findings: None. IMPRESSION: 1. Pleural parenchymal opacities at the right lung base may represent chronic changes, with pleural effusion, atelectasis, airspace disease also considered. 2. Cardiomegaly. Possible mild pulmonary vascular congestion superimposed on chronic changes. Correl ate for mild CHF.
[2024-01-03] MEDS: IPRATROPIUM-ALBUTEROL 3 ML NEB INHALATION STA ×2 (20:53→22:11)
[2024-01-03] MEDS: methylPREDNISolone SOD SUCCI 125 MG/2 ML VIAL IV STA (21:53)
[2024-01-03] MEDS: MAGNESIUM SULFATE-D5W PMX 1 GM in DEXTROSE/WATER 1 100ML.BAG IVPB ONE (21:54)
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
[2024-01-03] MEDS: MIDODRINE 5 MG TAB PO STA (22:16)
[2024-01-03 22:40] VITALS: BP 108/76; PULSE 98; RESP 18
== END 2024-01-03 22:51 | disposition home or self-care (01) ==
LOC: EC 18:41
DX: J44.1 Chronic obstructive pulmonary disease with (acute) exacerbation (principal); Z87.891 Personal history of nicotine dependence
CPT/HCPCS: 36415; 94640 ×2; 93005; 83880; 80053; 82140; 83605; 83735; 84484; 85025; 85610; 85730; 71046; 99285; 96365; 96375; J3475; J2919

== ENCOUNTER 2024-01-07 08:10 | Day surgery (SDC) | payer MEDICARE, OTHER ==
[2024-01-07 08:49] LABS: Mean Platelet Volume 8.5
[2024-01-07 09:07] LABS: Prothrombin Time 11.1 sec (10.0-12.5)
[2024-01-07 09:08] LABS: Platelet Count 75 k/uL (150-450)
[2024-01-07] MEDS: ALBUMIN HUMAN 25% 50 ML in EMPTY BAG 1 BAG IVPB SCH (09:21)
[2024-01-07 09:22] LABS: African American GFR (CKD) 61 (>60 ml/min/1.73 sqM); Glucose 202 mg/dL (74-99); Non-African American GFR(CKD) 53 (>60 ml/min/1.73 sqM)
[2024-01-07 09:27] VITALS: TEMP 97.6
--- NOTE | 2024-01-07 10:51 | US ---
EXAMINATION TYPE: US paracentesis abd w/image DATE OF EXAM: 01/07/2024 10:30 AM CLINICAL INDICATION:Male, 63 years old with history of K74.60 UNSPECIFIED CIRRHOSIS OF LIVER; COMPARISON: 12/18/2023 ATTENDING: Dr. Bolivar Farley PROCEDURE: Informed consent was obtained. The risks of the procedure were extensively explained incl uding risk of damage to surrounding bowel with perforation and need for additional procedures. Proced ure was performed in the ultrasound procedure suite. Ultrasound imaging of the abdomen demonstrate as citic fluid. An appropriate access site was localized to the right lower abdomen. Timeout was taken p er protocol. The skin was prepped and draped in the usual sterile fashion and then locally anesthetiz ed with 1% lidocaine. The peritoneal cavity was then accessed via a 5-Burundian one-step needle/cathete r. Approximately 6500 cc of clear straw-colored fluid was obtained. Postprocedural imaging of the a bdomen demonstrate a minimal amount of abdominal fluid. Patient tolerated procedure well without immediate complication. Hemostasis at the procedural site w as obtained with a sterile bandage placed. The patient was monitored in the holding area following th e procedure and was subsequently discharged in stable condition. IMPRESSION: Ultrasound guided paracentesis, with approximately 6500 cc of clear straw-colored fluid drained. No i mmediate complications were evident.
[2024-01-07 10:57] VITALS: RESP 16
[2024-01-07 11:44] VITALS: BP 104/61; PULSE 80
== END 2024-01-07 11:13 | disposition home or self-care (01) ==
LOC: RADPROMAIN 08:10
PROVIDERS: ATTEND Internal Medicine
DX: K74.60 Unspecified cirrhosis of liver (principal)
CPT/HCPCS: 82565; 82947; 85049; 85610; 36415; 49083; P9047

== ENCOUNTER 2024-01-21 08:01 | Day surgery (SDC) | payer MEDICARE, OTHER ==
[2024-01-21 08:52] LABS: Mean Platelet Volume 9.7
[2024-01-21 08:59] LABS: Prothrombin Time 11.4 sec (10.0-12.5)
[2024-01-21 09:07] LABS: Platelet Count 81 k/uL (150-450)
[2024-01-21 09:34] VITALS: RESP 18; TEMP 97.7
[2024-01-21] MEDS: ALBUMIN HUMAN 25% 50 ML in EMPTY BAG 1 BAG IVPB SCH (09:34)
[2024-01-21 09:39] LABS: African American GFR (CKD) 56 (>60 ml/min/1.73 sqM); Glucose 162 mg/dL (74-99); Non-African American GFR(CKD) 48 (>60 ml/min/1.73 sqM)
--- NOTE | 2024-01-21 10:49 | US ---
Ultrasound-guided paracentesis. DATE OF EXAM: 01/21/2024 CLINICAL HISTORY: Ascites The procedure was discussed with the patient. The risks, complications, benefits, and alternatives we re discussed and any questions were answered. Informed consent was obtained. The patient was placed s upine on the ultrasound table and prepped and draped in the usual sterile fashion. All elements of maximal barrier technique were utilized. Under ultrasound guidance, access into the right lower quadrant was obtained, via the paracentesis catheter system and direct ultrasound guidanc e. Approximately 6.5 liters of straw-colored fluid was removed. The patient was stable throughout the pr ocedure and remained stable upon discharge from Department of Radiology. IMPRESSION: Successful paracentesis under ultrasound guidance.
[2024-01-21 11:06] VITALS: BP 95/56; PULSE 84
== END 2024-01-21 11:00 | disposition home health service (06) ==
LOC: RADPROMAIN 08:01
PROVIDERS: ATTEND Internal Medicine
DX: R18.8 Other ascites (principal)
CPT/HCPCS: 82565; 82947; 85049; 85610; 49083; P9047

== ENCOUNTER 2024-01-28 08:02 | Day surgery (SDC) | payer MEDICARE, OTHER ==
[2024-01-28 08:47] LABS: Mean Platelet Volume 8.7
[2024-01-28 08:49] LABS: Platelet Count 86 k/uL (150-450)
[2024-01-28 08:55] LABS: Prothrombin Time 11.2 sec (10.0-12.5)
[2024-01-28 09:00] LABS: African American GFR (CKD) 55 (>60 ml/min/1.73 sqM); Glucose 204 mg/dL (74-99); Non-African American GFR(CKD) 47 (>60 ml/min/1.73 sqM)
[2024-01-28] MEDS: ALBUMIN HUMAN 25% 50 ML in EMPTY BAG 1 BAG IVPB SCH (09:22)
[2024-01-28 09:50] VITALS: TEMP 97.6
--- NOTE | 2024-01-28 11:04 | US ---
Ultrasound-guided paracentesis. DATE OF EXAM: 01/28/2024 CLINICAL HISTORY: Ascites The procedure was discussed with the patient. The risks, complications, benefits, and alternatives we re discussed and any questions were answered. Informed consent was obtained. The patient was placed s upine on the ultrasound table and prepped and draped in the usual sterile fashion. All elements of maximal barrier technique were utilized. Under ultrasound guidance, access into the right lower quadrant was obtained, via the paracentesis catheter system and direct ultrasound guidanc e. Approximately 5 liters of straw-colored fluid was removed. The patient was stable throughout the proc edure and remained stable upon discharge from Department of Radiology. IMPRESSION: Successful paracentesis under ultrasound guidance.
[2024-01-28 11:24] VITALS: BP 108/64; PULSE 81; RESP 18
== END 2024-01-28 11:05 | disposition home or self-care (01) ==
LOC: RADPROMAIN 08:02
PROVIDERS: ATTEND Internal Medicine
DX: R18.8 Other ascites (principal)
CPT/HCPCS: 82565; 82947; 85049; 85610; 36415; 49083; P9047

== ENCOUNTER 2024-02-06 07:59 | Day surgery (SDC) | payer MEDICARE, OTHER ==
[2024-02-06 08:55] LABS: INR 1.1 (<1.2); Prothrombin Time 11.5 sec (10.0-12.5)
[2024-02-06 08:58] LABS: Mean Platelet Volume 9.1
[2024-02-06 09:02] LABS: Platelet Count 82 k/uL (150-450)
[2024-02-06 09:08] LABS: African American GFR (CKD) 54 (>60 ml/min/1.73 sqM); Non-African American GFR(CKD) 47 (>60 ml/min/1.73 sqM)
[2024-02-06] MEDS: ALBUMIN HUMAN 25% 50 ML in EMPTY BAG 1 BAG IVPB SCH (09:15)
[2024-02-06 09:18] VITALS: RESP 19; TEMP 98.4
[2024-02-06 10:13] VITALS: BP 96/58; PULSE 80
--- NOTE | 2024-02-06 13:15 | US ---
EXAMINATION TYPE: US paracentesis abd w/image DATE OF EXAM: 02/06/2024 9:28 AM CLINICAL INDICATION:Male, 64 years old with history of K74.60 UNSPECIFIED CIRRHOSIS OF LIVER; COMPARISON: 01/28/2024 ATTENDING: Dr. Bolivar Farley PROCEDURE: Informed consent was obtained. The risks of the procedure were extensively explained incl uding risk of damage to surrounding bowel with perforation and need for additional procedures. Proced ure was performed in the ultrasound procedure suite. Ultrasound imaging of the abdomen demonstrate as citic fluid. An appropriate access site was localized to the left lower abdomen. Timeout was taken pe r protocol. The skin was prepped and draped in the usual sterile fashion and then locally anesthetize d with 1% lidocaine. The peritoneal cavity was then accessed via a 5-Sinhala one-step needle/catheter . Approximately 4800 cc of clear straw-colored fluid was obtained. Postprocedural imaging of the ab domen demonstrate a minimal amount of abdominal fluid. Patient tolerated procedure well without immediate complication. Hemostasis at the procedural site w as obtained with a sterile bandage placed. The patient was monitored in the holding area following th e procedure and was subsequently discharged in stable condition. IMPRESSION: Ultrasound guided paracentesis, with approximately 4800 cc of clear straw-colored fluid drained. No immediate complications were evident.
== END 2024-02-06 10:04 | disposition home or self-care (01) ==
LOC: RADPROMAIN 07:59
PROVIDERS: ATTEND Internal Medicine
DX: K74.60 Unspecified cirrhosis of liver (principal)
CPT/HCPCS: 82565; 85049; 85610; 36415; 49083; P9047

== ENCOUNTER 2024-02-20 07:40 | Day surgery (SDC) | payer MEDICARE, OTHER ==
[2024-02-20 08:48] LABS: Mean Platelet Volume 9.4
[2024-02-20 08:51] LABS: Platelet Count 86 k/uL (150-450)
[2024-02-20 08:56] LABS: INR 1.1 (<1.2); Prothrombin Time 11.6 sec (10.0-12.5)
[2024-02-20 09:02] LABS: African American GFR (CKD) 42 (>60 ml/min/1.73 sqM); Glucose 177 mg/dL (74-99); Non-African American GFR(CKD) 36 (>60 ml/min/1.73 sqM)
[2024-02-20] MEDS: ALBUMIN HUMAN 25% 50 ML in EMPTY BAG 1 BAG IVPB SCH (09:26)
[2024-02-20 09:43] VITALS: TEMP 97.5
--- NOTE | 2024-02-20 10:13 | US ---
Ultrasound-guided paracentesis. DATE OF EXAM: 02/20/2024 CLINICAL HISTORY: Ascites The procedure was discussed with the patient. The risks, complications, benefits, and alternatives we re discussed and any questions were answered. Informed consent was obtained. The patient was placed s upine on the ultrasound table and prepped and draped in the usual sterile fashion. All elements of maximal barrier technique were utilized. Under ultrasound guidance, access into the right lower quadrant was obtained, via the paracentesis catheter system and direct ultrasound guidanc e. Approximately 0.8 liters of straw-colored fluid was removed. The patient was stable throughout the pr ocedure and remained stable upon discharge from Department of Radiology. IMPRESSION: Successful paracentesis under ultrasound guidance.
[2024-02-20 11:26] VITALS: BP 104/59; PULSE 72; RESP 16
== END 2024-02-20 10:25 | disposition home or self-care (01) ==
LOC: RADPROMAIN 07:40
PROVIDERS: ATTEND Internal Medicine
DX: R18.8 Other ascites (principal)
CPT/HCPCS: 36415; 49083; 82565; 82947; 85049; 85610

== ENCOUNTER 2024-03-05 08:03 | Day surgery (SDC) | payer MEDICARE, OTHER ==
[2024-03-05] MEDS ORDERED: ALBUMIN HUMAN 25% 50 ML in EMPTY BAG 1 BAG IVPB SCH (08:45)
[2024-03-05 08:53] LABS: Platelet Count 71 k/uL (150-450)
[2024-03-05 08:57] VITALS: BP 117/56; PULSE 79; RESP 18; TEMP 98.2
[2024-03-05 08:57] LABS: African American GFR (CKD) 39 (>60 ml/min/1.73 sqM); Glucose 229 mg/dL (74-99); Non-African American GFR(CKD) 33 (>60 ml/min/1.73 sqM)
--- NOTE | 2024-03-05 09:38 | US ---
Ultrasound-guided paracentesis. DATE OF EXAM: 03/05/2024 CLINICAL HISTORY: Ascites Preliminary imaging demonstrated no evidence of sizable ascites. IMPRESSION: Discontinue paracentesis due to insufficient fluid.
== END 2024-03-05 09:30 | disposition home or self-care (01) ==
LOC: RADPROMAIN 08:03
PROVIDERS: ATTEND Internal Medicine
DX: Z53.8 Procedure and treatment not carried out for other reasons (principal); R18.8 Other ascites
CPT/HCPCS: 36415; 76705; 82565; 82947; 85049; 85610

== ENCOUNTER 2024-03-19 07:52 | Day surgery (SDC) | payer MEDICARE, OTHER ==
[2024-03-19 08:29] VITALS: RESP 12; TEMP 97.9
[2024-03-19 08:54] LABS: African American GFR (CKD) 61 (>60 ml/min/1.73 sqM); Glucose 329 mg/dL (74-99); Non-African American GFR(CKD) 53 (>60 ml/min/1.73 sqM)
[2024-03-19 08:55] LABS: Platelet Count 91 k/uL (150-450)
[2024-03-19 09:10] LABS: Prothrombin Time 11.4 sec (10.0-12.5)
[2024-03-19] MEDS: ALBUMIN HUMAN 25% 50 ML in EMPTY BAG 1 BAG IVPB SCH (09:34)
[2024-03-19 10:16] VITALS: BP 97/54; PULSE 77
--- NOTE | 2024-03-20 11:15 | US ---
EXAMINATION TYPE: US paracentesis abd w/image DATE OF EXAM: 03/19/2024 9:49 AM CLINICAL INDICATION:Male, 64 years old with history of K74.60 cirrhosis; COMPARISON: 02/20/2024 ATTENDING: Dr. Bolivar Farley PROCEDURE: Informed consent was obtained. The risks of the procedure were extensively explained incl uding risk of damage to surrounding bowel with perforation and need for additional procedures. Proced ure was performed in the ultrasound procedure suite. Ultrasound imaging of the abdomen demonstrate as citic fluid. An appropriate access site was localized to the right lower abdomen. Timeout was taken p er protocol. The skin was prepped and draped in the usual sterile fashion and then locally anesthetiz ed with 1% lidocaine. The peritoneal cavity was then accessed via a 5-Serbian one-step needle/cathete r. Approximately 7500 cc of clear straw-colored fluid was obtained. Postprocedural imaging of the ab domen demonstrate a minimal amount of abdominal fluid. Patient tolerated procedure well without immediate complication. Hemostasis at the procedural site w as obtained with a sterile bandage placed. The patient was monitored in the holding area following th e procedure and was subsequently discharged in stable condition. IMPRESSION: Ultrasound guided paracentesis, with approximately 7500 cc of clear straw-colored fluid drained. No immediate complications were evident.
== END 2024-03-19 10:40 | disposition home or self-care (01) ==
LOC: RADPROMAIN 07:52
PROVIDERS: ATTEND Internal Medicine
DX: K74.60 Unspecified cirrhosis of liver (principal)
CPT/HCPCS: 82565; 82947; 85049; 85610; 49083; P9047

== ENCOUNTER 2024-09-17 21:07 | Inpatient (IN) | payer MEDICARE, OTHER ==
[2024-09-17 21:43] LABS: Anisocytosis Slight; Basophils % (A) 0 %; Eosinophils # (A) 0.1 k/uL (0-0.7); Eosinophils % (A) 1 %; HCT 30.9 % (39.0-53.0); HGB 10.2 gm/dL (13.0-17.5); Lymphocytes # (A) 0.9 k/uL (1.0-4.8); Lymphocytes % (A) 9 %; MCH 32.8 pg (25.0-35.0); MCHC 33.1 g/dL (31.0-37.0); MCV 98.9 fL (80.0-100.0); Macrocytosis Slight; Mean Platelet Volume 8.5; Monocytes # (A) 0.4 k/uL (0-1.0); Monocytes % (A) 4 %; Neutrophils # (A) 8.1 k/uL (1.3-7.7); Neutrophils % (A) 83 %; RBC 3.13 m/uL (4.30-5.90); RDW 16.4 % (11.5-15.5); WBC 9.8 k/uL (3.8-10.6)
[2024-09-17] MEDS: SODIUM CHLORIDE 0.9% 500 ML 500 ML IV STA (21:44)
[2024-09-17] MEDS: MORPHINE SULFATE 4 MG/ML SYRINGE IVP STA (21:46)
[2024-09-17 21:58] LABS: Platelet Count 66 k/uL (150-450)
[2024-09-17 22:08] LABS: INR 0.9 (<1.2); Partial Thromboplastin Time 22.2 sec (22.0-30.0); Prothrombin Time 10.6 sec (10.0-12.5)
[2024-09-17 22:10] LABS: ALT 46 U/L (4-49); AST 39 U/L (17-59); African American GFR (CKD) 52 (>60 ml/min/1.73 sqM); Albumin 3.6 g/dL (3.5-5.0); Alkaline Phosphatase 220 U/L (38-126); Anion Gap 8 mmol/L; Blood Urea Nitrogen 91 mg/dL (9-20); Calcium 8.9 mg/dL (8.4-10.2); Chloride 82 mmol/L (98-107); Glucose 127 mg/dL (74-99); Non-African American GFR(CKD) 45 (>60 ml/min/1.73 sqM); Sodium 130 mmol/L (137-145); Total Bilirubin 0.9 mg/dL (0.2-1.3); Total Protein 6.9 g/dL (6.3-8.2)
[2024-09-17 22:34] LABS: Potassium 2.5 mmol/L (3.5-5.1)
[2024-09-17 22:36] LABS: Carbon Dioxide 36 mmol/L (22-30)
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
--- NOTE | 2024-09-17 23:06 | XR ---
EXAM: XR Left Hip With Pelvis When Performed, 2 or 3 Views CLINICAL HISTORY: ITS.REASON XR Reason: Fall TECHNIQUE: Two or three views of the left hip with pelvis when performed. COMPARISON: No relevant prior studies available. FINDINGS: Bones/joints: Acute left intertrochanteric fracture. IMPRESSION: Acute left intertrochanteric fracture.
--- NOTE | 2024-09-17 23:08 | XR ---
EXAM: XR Chest, 1 View CLINICAL HISTORY: ITS.REASON XR Reason: Fall TECHNIQUE: Frontal view of the chest. COMPARISON: 01/03/2024 FINDINGS: Lungs: Airspace opacities in the right lung appear unchanged, likely chronic. The left lung is clear. Pleural space: No pleural effusion. No pneumothorax. Heart: Unremarkable. No cardiomegaly. Bones/joints: No grossly evident fracture. IMPRESSION: No acute findings in the chest.
[2024-09-17] MEDS: POTASSIUM CHLORIDE ER 20 MEQ TAB.ER PO STA (23:10)
[2024-09-17] MEDS: SODIUM CHLORIDE 0.9% 1,000 ML IV ONE (23:11)
[2024-09-17] MEDS: POTASSIUM CHLORIDE 20 MEQ in WATER FOR INJECTION 1 100ML.BAG IVPB STA (23:13)
[2024-09-18] MEDS: diphenhydrAMINE 50 MG/ML 1 ML VIAL IVP STA (00:40)
--- NOTE | 2024-09-18 01:40 | CT ---
EXAM: CT Pelvis Without Intravenous Contrast CLINICAL HISTORY: ITS.REASON CT Reason: Left hip fracture TECHNIQUE: Axial computed tomography images of the pelvis without intravenous contrast. CTDI is 13.2 mGy and DLP is 623.3 mGy-cm. This CT exam was performed using one or more of the following dose reduction techniques: automated exposure control, adjustment of the mA and/or kV according to patient size, and/or use of iterative reconstruction technique. COMPARISON: No relevant prior studies available. FINDINGS: Bowel: Unremarkable. No obstruction. No mucosal thickening. Appendix: No findings to suggest acute appendicitis. Intraperitoneal space: Unremarkable. No free air. No significant fluid collection. Bladder: Unremarkable. No stones. Reproductive: Unremarkable as visualized. Bones/joints: Remote fracture of the left inferior pubic ramus. Left intertrochanteric fracture. Lesser trochanter is displaced medially and superiorly. There is some comminution of the left greater trochanter. Degenerative changes in the sacroiliac joints and hips. Lumbar degenerative disc disease and facet arthropathy. Osteopenia. Chronic appearing compression fracture L3. Soft tissues: Some soft tissue swelling surrounding the left femoral fracture. Vasculature: Unremarkable. No lower abdominal aortic aneurysm. Lymph nodes: Unremarkable. No enlarged lymph nodes. IMPRESSION: Four-part left intertrochanteric fracture.
--- NOTE | 2024-09-18 01:42 | CT ---
EXAM: CT Left Lower Extremity Without Intravenous Contrast CLINICAL HISTORY: ITS.REASON CT Reason: Left hip fracture TECHNIQUE: Axial computed tomography images of the left lower extremity without intravenous contrast. CTDI is 12.1 mGy and DLP is 783.7 mGy-cm. This CT exam was performed using one or more of the following dose reduction techniques: automated exposure control, adjustment of the mA and/or kV according to patient size, and/or use of iterative reconstruction technique. COMPARISON: No relevant prior studies available. FINDINGS: Bones/joints: Left intertrochanteric fracture. Comminution of the greater trochanter. Displaced lesser trochanter medially and superiorly. Remote fracture left inferior pubic ramus. Soft tissues: Soft tissue swelling surrounding the left femoral fracture. Vasculature: Arterial calcification. IMPRESSION: Four-part left intertrochanteric fracture.
[2024-09-18] MEDS ORDERED: NALOXONE 0.4 MG/ML 1 ML VIAL IV PRN ×2 (02:10→18:00)
[2024-09-18] MEDS ORDERED: ACETAMINOPHEN TAB 325 MG TAB PO PRN (02:10)
[2024-09-18] MEDS: HYDROmorphone 1 MG/ML 1 ML SYRINGE IVP STA (02:15)
[2024-09-18] MEDS ORDERED: Potassium Replacement Protocol 1 EACH MISC MISCELLANE PRN (05:47)
[2024-09-18] MEDS: HYDROmorphone 1 MG/ML 1 ML SYRINGE IVP PRN (06:59)
[2024-09-18 07:02] LABS: Glucose,Whole Blood 354 mg/dL (70-110)
[2024-09-18] MEDS: POTASSIUM CHLORIDE ER 20 MEQ TAB.ER PO SCH (07:58)
[2024-09-18] MEDS: PANTOPRAZOLE 40 MG/10 ML VIAL IV SCH (07:58)
[2024-09-18] MEDS ORDERED: DEXTROSE 50% SYRINGE 50 ML IVP PRN ×2 (08:13)
[2024-09-18 11:06] LABS: Glucose,Whole Blood 300 mg/dL (70-110)
--- NOTE | 2024-09-18 11:52 | CONS ---
CONSULTATION HISTORY OF PRESENT ILLNESS: This is a 64-year-old gentleman, who is admitted to hospital with hip fracture and Cardiology has been consulted for preop cardiac evaluation. He is currently free of anginal symptoms of heart failure. An EKG shows sinus rhythm with nonspecific ST-T wave changes. He had a cardiac catheterization in July 2023 that revealed a totally occluded right coronary artery with a 30% stenosis involving the LAD. His history is also significant for chronic liver disease, diabetes, hypocortisolism, hypothyroidism, and COPD. At the time of my evaluation, he is free of cardiac symptoms. Denies any chest pain. The patient had normal LV systolic function on an echocardiogram in June 2023. There are no absolute contraindications for surgery under anesthesia. He is at increased risk for perioperative cardiac events because of multiple comorbidities and the underlying coronary artery disease. PAST MEDICAL HISTORY: Significant for coronary artery disease, hypothyroidism, diabetes, chronic liver disease. MEDICATIONS: Are as charted. FAMILY HISTORY: Negative for premature coronary artery disease. SOCIAL HISTORY: Negative for current smoking, EtOH abuse, or drug abuse. REVIEW OF SYSTEMS: HEENT: Unremarkable. CARDIAC: As described above. RESPIRATORY: Negative. GI: Negative. : Negative. ALLERGY/IMMUNOLOGY: Negative. SKIN: Negative. MUSCULOSKELETAL: Significant for arthritis. PSYCHOSOCIAL: Negative. DERM: Negative. CONSTITUTIONAL: Negative. ONCOLOGICAL: Negative. SOFTWARE REVERSE ENGINEER: Negative. Rest of the system review is not relevant. PHYSICAL EXAMINATION: VITAL SIGNS: Afebrile. Heart rate is 60 beats per minute. Blood pressure is 115/64, respiratory rate is 18. NECK: There is no jugular venous distention. Carotid upstroke is normal. There is no bruit. CHEST: Reveals good air entry bilaterally. HEART: Reveals first and second heart sounds. No gallop. No murmur. ABDOMEN: Soft, nontender. EXTREMITIES: Peripheral pulses are felt. There is bilateral pitting edema. LABORATORY DATA: Labs show that the hemoglobin is 10.2. BUN is 91, creatinine is 1.6. Potassium is low, that is being supplemented. ASSESSMENT AND PLAN: 1. Preop cardiac evaluation. 2. Coronary artery disease. 3. Pancytopenia. 4. Chronic liver disease. 5. Chronic renal failure. PLAN: The patient is at increased risk for perioperative cardiac events because of multiple comorbidities including the pancytopenia, renal failure, underlying coronary artery disease, and chronic liver disease. From cardiac standpoint, there are no absolute contraindications. The patient does not have aortic stenosis. Does not have unstable cardiac arrhythmia, and is not having ongoing angina or overt heart failure. The leg edema is probably related to underlying liver disease. I will obtain a 2D echo to reassess his LV function. ESTEBAN / DAVID: [id number] /
[2024-09-18] MEDS: INSULIN ASPART (NovoLOG) 100 UNIT/ML VIAL SQ SCH (12:24)
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
[2024-09-18] MEDS ORDERED: ALBUTEROL NEBULIZED 2.5 MG/3 ML INHALATION PRN (14:00)
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
[2024-09-18] MEDS: IPRATROPIUM 0.5 MG/2.5 ML NEBU INHALATION SCH (14:42)
[2024-09-18] MEDS: LACTATED RINGERS 1,000 ML IV ONE (15:13)
[2024-09-18 15:24] LABS: Glucose,Whole Blood 323 mg/dL (70-110)
[2024-09-18] MEDS: ONDANSETRON 4 MG/2 ML VIAL IVP PRN (15:27)
[2024-09-18] MEDS: DEXAMETHASONE SOD PHOSPHATE 4 MG/ML 1 ML VIAL IVP STA (15:38)
[2024-09-18] MEDS: HYDROCORTISONE SUCCINATE 100 MG/2 ML VIAL IV SCH (16:00)
[2024-09-18] MEDS ORDERED: GLYCOPYRROLATE 0.2 MG/ML 2 ML VIAL ONE (16:02)
[2024-09-18] MEDS ORDERED: SUCCINYLCHOLINE CHLORIDE 200 MG/10 ML VIAL IV ONE (16:02)
[2024-09-18] MEDS ORDERED: PHENYLEPHRINE 10 MG/ML VIAL ONE (16:02)
[2024-09-18] MEDS ORDERED: PROPOFOL 10 MG/ML 20 ML VIAL IV ONE (16:02)
[2024-09-18] MEDS ORDERED: ROCURONIUM 10 MG/ML (5 ML VIAL) IV ONE (16:02)
[2024-09-18] MEDS ORDERED: HYDROmorphone (PF) 1 MG/ML ONE (16:02)
[2024-09-18] MEDS ORDERED: LIDOCAINE 1% INJ 10MG/ML (20 ML MDV) ONE (16:02)
[2024-09-18] MEDS ORDERED: LIDOCAINE 4% LTA KIT (4 ML) TOPICAL ONE (16:02)
[2024-09-18] MEDS ORDERED: NEOSTIGMINE 1 MG/ML 10 ML VIAL ONE (16:02)
[2024-09-18] MEDS ORDERED: fentaNYL (PF) 50 MCG/ML 2 ML AMP ONE (16:02)
[2024-09-18] MEDS: SODIUM CHLORIDE 0.9% 100 ML with ceFAZolin 2,000 MG IV ONE (16:07)
--- NOTE | 2024-09-18 16:24 | CA ---
Transthoracic Echo Report Name: Nathaniel Abarca Age: 64 Gender: M : 1960 Exam Date: 09/18/2024 13:26 Exam Location: [place] [facility] Ht (in): 74 Wt (lb): 226 Ordering Physician: Roger Lynch MD ([id number]) Attending/Referring Phys: Cris WETZEL Ophthalmology Assistant Arianne Mccormack RDCS Procedure CPT: Indications: pre-op Cardiac Hx: Technical Quality: Technically difficult study Contrast 1: Definity Total Dose (mL): 1 Contrast 2: Total Dose (mL): MEASUREMENTS (Male / Female) Normal Values 2D ECHO LV Diastolic Diameter PLAX 5.6 cm 4.2 - 5.9 / 3.9 - 5.3 cm LV Systolic Diameter PLAX 4.1 cm IVS Diastolic Thickness 0.6 cm 0.6 - 1.0 / 0.6 - 0.9 cm LVPW Diastolic Thickness 0.8 cm 0.6 - 1.0 / 0.6 - 0.9 cm LV Relative Wall Thickness 0.3 LVOT Diameter 2.2 cm LV Diastolic Volume MOD BP 120.0 cm??? 67 - 155 / 56 - 104 cm??? LV Systolic Volume MOD BP 44.5 cm??? 22 - 58 / 19 - 49 cm??? LV Ejection Fraction MOD BP 62.9 % >= 55 % LV Cardiac Index MOD BP 2849.4 cm???/min???m??? LV Diastolic Volume MOD 4C 131.7 cm??? LV Systolic Volume MOD 4C 49.1 cm??? LV Ejection Fraction MOD 4C 62.7 % LV Cardiac Index MOD 4C 3114.8 cm???/min???m??? LV Diastolic Length 4C 8.4 cm LV Systolic Length 4C 7.2 cm LV Diastolic Volume MOD 2C 107.1 cm??? LV Systolic Volume MOD 2C 37.9 cm??? LV Ejection Fraction MOD 2C 64.6 % LV Cardiac Index MOD 2C 2613.0 cm???/min???m??? LV Diastolic Length 2C 8.1 cm LV Systolic Length 2C 6.8 cm LA Volume 28.0 cm??? 18 - 58 / 22 - 52 cm??? LA Volume Index 12.0 cm???/m??? 16 - 28 cm???/m??? DOPPLER AV Peak Velocity 111.2 cm/s AV Peak Gradient 4.9 mmHg AV Mean Velocity 79.5 cm/s AV Mean Gradient 2.8 mmHg AV Velocity Time Integral 20.9 cm LVOT Peak Velocity 113.2 cm/s LVOT Peak Gradient 5.1 mmHg LVOT Velocity Time Integral 19.2 cm LVOT Stroke Volume 73.3 cm??? LVOT Stroke Volume Index 32.0 ml/m??? LVOT Cardiac Index 2763.8 cm???/min???m??? AV Area Cont Eq vti 3.5 cm??? AV Area Cont Eq pk 3.9 cm??? MV Peak Velocity 127.9 cm/s MV Peak Gradient 6.5 mmHg MV Mean Velocity 92.5 cm/s MV Mean Gradient 3.6 mmHg MV Velocity Time Integral 28.0 cm MV Area PHT 4.1 cm??? Mitral E Point Velocity 85.0 cm/s Mitral A Point Velocity 102.6 cm/s Mitral E to A Ratio 0.8 MV Deceleration Time 186.1 ms PV Peak Velocity 90.5 cm/s PV Peak Gradient 3.3 mmHg FINDINGS Left Ventricle Left ventricular ejection fraction is estimated at 55-60 %. Left ventricular cavity size normal. Left ventricular wall thickness normal. No obvious regional wall motion abnormalities. Right Ventricle Normal right ventricular size and function. Unable to estimate the right ventricular systolic pressure. Right Atrium Right atrium not well visualized. Left Atrium Normal left atrial size. Mitral Valve Structurally normal mitral valve. No evidence for mitral valve prolapse. Mild mitral stenosis. No mitral regurgitation. Aortic Valve Trileaflet aortic valve. No aortic valve stenosis or regurgitation. Tricuspid Valve Structurally normal tricuspid valve. No tricuspid stenosis, regurgitation or prolapse. Pulmonic Valve Pulmonic valve not well visualized. No pulmonic stenosis. No pulmonic regurgitation. Pericardium No pericardial effusion. Aorta Aortic annulus normal. CONCLUSIONS Normal LV function Previewed by: Dr. Roger Lynch MD (Electronically Signed) Final Date: 18 September 2024 16:23
--- NOTE | 2024-09-18 17:30 | FL ---
EXAMINATION TYPE: FL guidance operating room, XR Hip Complete LT DATE OF EXAM: 09/18/2024 5:18 PM COMPARISON: Pre Operative Images if available both CT/MRI or plain film CLINICAL INDICATION: Male, 64 years old with history of LEFT HIP IT NAIL; TECHNIQUE: FL guidance operating room, XR Hip Complete LT, multiple fluoroscopic images provided for procedure. Total fluoroscopy time: 1 min 47 seconds Total submitted images to PACS: 4 DAP: 18.070 mGym2 Gycm2 uGym2 cGycm2 or equivalent. FINDINGS: Fluoroscopic images during internal fixation demonstrate hardware in appropriate position. Hardware a ppears intact. No immediate complication identified. IMPRESSION: 1. No evidence for intraoperative complication. 2. Please see the operative/procedural note for further details. [facility], , 09/18/2024 5:28 PM
[2024-09-18] MEDS: HYDROmorphone 0.5 MG/0.5 ML SYRINGE IVP PRN (17:46)
[2024-09-18] MEDS ORDERED: MAGNESIUM HYDROXIDE 2,400 MG/30 ML CUP PO PRN (18:00)
[2024-09-18] MEDS: IV FLUID CONTINUATION 1,000 ML IV ONE (18:50)
[2024-09-18 18:53] LABS: Glucose,Whole Blood 273 mg/dL (70-110)
[2024-09-18] MEDS: ATORVASTATIN 20 MG TAB PO SCH (20:29)
[2024-09-18] MEDS: SENNOSIDES-DOCUSATE SODIUM 1 EACH TAB PO SCH (20:29)
[2024-09-18] MEDS: ALPRAZolam 0.25 MG TAB PO SCH (20:29)
[2024-09-18] MEDS: RIFAXIMIN 550 MG TAB (PTS OWN) PO SCH (20:51)
[2024-09-18 21:10] LABS: Glucose,Whole Blood 345 mg/dL (70-110)
[2024-09-18] MEDS: INSULIN DETEMIR (LEVEMIR) 100 UNIT/ML SYR SQ SCH (21:29)
[2024-09-18 21:51] LABS: Anisocytosis Slight; Basophils % (A) 0 %; Eosinophils % (A) 0 %; HGB 10.4 gm/dL (13.0-17.5); Hypochromasia Slight; Lymphocytes # (A) 0.4 k/uL (1.0-4.8); Lymphocytes % (A) 5 %; MCH 33.5 pg (25.0-35.0); MCHC 32.4 g/dL (31.0-37.0); MCV 103.3 fL (80.0-100.0); Macrocytosis Moderate; Mean Platelet Volume 8.9; Monocytes # (A) 0.3 k/uL (0-1.0); Monocytes % (A) 4 %; Neutrophils # (A) 5.9 k/uL (1.3-7.7); Neutrophils % (A) 89 %; Platelet Count 61 k/uL (150-450); RBC 3.09 m/uL (4.30-5.90); RDW 16.4 % (11.5-15.5); WBC 6.6 k/uL (3.8-10.6)
[2024-09-19] MEDS: HYDROcodone/APAP 10-325MG 1 EACH TAB PO PRN (03:44)
[2024-09-19] MEDS: CYCLOBENZAPRINE 5 MG TAB PO PRN (03:45)
[2024-09-19] MEDS: LEVOTHYROXINE 100 MCG TAB PO SCH (06:30)
[2024-09-19 06:42] LABS: Glucose,Whole Blood 312 mg/dL (70-110)
[2024-09-19] MEDS: FORMOTEROL FUMARATE 20 MCG/2 ML NEBU INHALATION SCH (08:29)
--- NOTE | 2024-09-19 10:03 | P.OP ---
Date of Procedure: 09/18/24 Preoperative Diagnosis: 1. LEFT THREE PART INTERTROCHANTERIC FRACTURE 2. S/P FALL FROM STANDING 3. COMPLEX MEDICAL PATIENT Postoperative Diagnosis: 1. LEFT THREE PART INTERTROCHANTERIC FRACTURE 2. S/P FALL FROM STANDING 3. COMPLEX MEDICAL PATIENT Procedure(s) Performed: 1. INTRAMEDULLARY NAIL FIXATION LEFT IT FRACTURE Implants: LOPEZ AND NEPHEW 11.5 X130 DEG SHORT NAIL 95 LAG 90COMPRESSION 32.5 LOCKING Anesthesia: GETA Surgeon: Juan Antonio Randall Cement Mixer #1: Justin Fernandez (WAS PRESENT AND ASSISTED WITH ALL ASPECTS OF THE CASE FROM POSITION TO DRESSING PLACEMENT) Estimated Blood Loss (ml): 100 IV fluids (ml): 1,000 Urine output (ml): 150 Pathology: none sent Condition: stable Disposition: PACU Indications for Procedure: 64 YO MALE PRESENTED TO ED AFTER FALL WITH LEFT HIP FRACTURE. INABILITY TO AMBULATE AND PAIN WITH MOTION OF LEFT HIP. IMAGING SHOWED LEFT IT FRACTURE 3 PART, MINIMALLY DISPLACED. PT HAS PAIN WITH MOTION OF THE LLE WHICH IS NV INTACT. WE DISCUSSED TREATMENT OPTIONS IN THE FORM OF IMN FIXATION. HE WAS AMENDABLE TO THIS. WE DISCUSSED RISKS AND BENEFITS AT LENGTH INCLUDING BUT NO LIMITED TO RISKS OF BLEEDING, INFECTION, DAMAGE TO SURROUNDING TISSUES, RISK OF RE-OPERATION RISK OF ANESTHESIA UP TO AND INCLUDING . HE WAS WILLING TO ASSUME THESE RISKS AND ALL THE RISKS OF SURGERY. SITE WAS MARKED, CONSENT WAS CONFIRMED. HE WAS WILLING TO PROCEED WITH SURGERY. Description of Procedure: LEFT hip short IMN The patient was seen and examined in the preoperative area. All preoperative protocols were followed. Informed consent was obtained, risks and benefits of the procedure were discussed at length. Risks including bleeding infection damage to the surrounding tissue and risk of reoperation were discussed with the patient. Risk of anesthesia up to and including was discussed with the patient. These are outlined in the risk reviewed. They were willing to accept these risks and all of the risks of surgery. The patient was given a weight- based dose of antibiotics in the form of 2 g Ancef. The patient was seen and evaluated by the anesthesia team who deemed them fit for surgery. The site was marked, the patient was willing to proceed with the procedure. The patient was transferred to the operative suite by the Department of anesthesia. They were then drifted off to sleep by the department of anesthesia and GETA anesthesia was used. Once adequate anesthesia had been obtained the patient was carefully transferred to the operative bed. All bony prominences were padded accordingly. SCDs were placed on the nonoperative lower extremities. Arms were well padded. The patient was transferred to the Chloe table and her Left leg was placed in a Chloe boot and secured to the table. The left leg was placed in a well-leg hernandez well padded and secured. The post was placed and she was secured appropriately. arms were placed on arm boards and well-padded Preoperative briefing was done with the operative team and everyone was ready for the procedure to start. X Ray used to reduce the fracture with Chloe table. The patient's left leg was then prepped and draped in the normal sterile f ashion. Timeout was then performed and all parties in agreement with the procedure to be performed. X-ray was then used to lyudmila 2 cm proximal to the GT. Skin incision made in line with the femur and blunt dissection taken down to the deep fascia which was split. Blunt dissection then taken down to the tip of the GT and the sharp awl used. Optimal starting point achieved on AP and Lateral imaging. Awl was then advanced into the proximal femur. Ball tip guidewire was then passed into the femur. It was confirmed on Ap and lateral. Opening reamer then passed followed by 9, 11 and 13 AND 14.5 mm reamer. Then the nail was selected and impacted into place over the wire using fluoroscopic guidance. Once in position the lateral guide was placed and skin incision made in line with the femur over the lateral aspect. Dissection taken down through the tensor fascia which was split inline with its fibers. The guide was seated against bone. Pin was placed through the guide for the lag screw to be within 10mm on Ap and lateral of the subchonDRAL bone. This was then measured. Appropriate sized compression screw then selected and drilled. Then the lag screw was drilled. A Lag screw is placed over the wire followed by the compression screw. About 7 mm of compression was achieved. Good alignment in AP and lateral shown. The nail was then locked proximally. Distal locking screw was then placed through the jig using similar technique. Screw was drilled and measured and placed. AP and lateral confirmed good placement and good fracture reduction as well as stability in ROM. The guide was then removed from the nail. The wound was then copiously irrigated with normal sterile saline final AP and lateral fluoroscopic imaging confirmed good placement of pins as well as reduction of fracture. The deep fascia was then closed with 0 Vicryl superficial closed 2-0 Vicryl and skin closed with skin azar the wound edges approximated very well. The wound was then cleaned and dressed with an optifoam dressing. The patient was then transferred back to their hospital bed. They were awakened by the department of anesthesia having tolerated the procedure very well with no complications. The patient was then transported to the postoperative care unit in stable condition.
[2024-09-19 11:11] VITALS: BMI 29.0
[2024-09-19 11:42] LABS: Glucose,Whole Blood 349 mg/dL (70-110)
--- NOTE | 2024-09-19 13:02 | P.PN ---
Subjective Progress Note Date: 09/19/24 Principal diagnosis: Left hip IT fracture Patient was seen at bedside this morning lying semirecumbent position with Charles/catheter currently in place and dressings present over left lateral hip. Patient states the pain is under control with oral medications. Patient says he is looking forward to working with therapy later this morning. Patient denies any other issues at this time. Objective - Vital Signs Vital signs: Vital Signs Temp 98.1 F 09/19/24 06:51 Pulse 87 09/19/24 10:15 Resp 16 09/19/24 10:15 BP 118/57 09/19/24 06:51 Pulse Ox 96 09/19/24 06:51 FiO2 Intake & Output 09/18/24 09/19/24 09/19/24 18:59 06:59 18:59 Intake Total 1200 2160 Output Total 1375 1450 Balance -175 710 Weight 102.829 kg Intake: IV 1200 Oral 2160 Output: Urine 1325 1450 Estimated Blood Loss 50 Other: Voiding Method External Catheter Indwelling Catheter Indwelling Catheter - Exam Inspection: Dressing present over left lateral hip. Negative for active drainage. Vinod appear to be well aligned and intact. Negative for any open fractures, significant erythema/ecchymosis. Positive for some swelling diffusely throughout the left hip. Sensation: Equal, symmetric, bilat intact throughout the upper and lower extremities on exam. Palpation: Moderate tenderness to palpation over the left hip diffusely. Nontender to palpation on rest of exam. Range of motion: Full range of motion throughout bilateral upper extremities and right lower extremity exam. Patient is able to dorsi and plantarflex the left ankle. Unable to actively flex or extend left knee and hip secondary to pain. Motor: 4+/5 in all major motor groups in bilateral upper extremities and right lower extremity on exam. 4-/5 left lower extremity on exam Special test: Negative Homans bilaterally. Neurovascular: Radial pulse intact, 2+ bilaterally. Cap refill under 3 seconds in digits of upper extremities - Labs CBC & Chem 7: 09/18/24 21:15 09/18/24 13:21 Labs: Abnormal Lab Results - Last 24 Hours (Table) 09/18/24 09/18/24 09/18/24 Range/Units 15:22 18:49 21:08 RBC (4.30-5.90) m/uL Hgb (13.0-17.5) gm/dL Hct (39.0-53.0) % MCV (80.0-100.0) fL RDW (11.5-15.5) % Plt Count (150-450) k/uL Lymphocytes # (1.0-4.8) k/uL POC Glucose (mg/dL) 323 H 273 H 345 H (70-110) mg/dL Hemoglobin A1c (<=6.0) % 09/18/24 09/18/24 09/19/24 Range/Units 21:15 21:15 06:41 RBC 3.09 L (4.30-5.90) m/uL Hgb 10.4 L (13.0-17.5) gm/dL Hct 32.0 L (39.0-53.0) % MCV 103.3 H (80.0-100.0) fL RDW 16.4 H (11.5-15.5) % Plt Count 61 L (150-450) k/uL Lymphocytes # 0.4 L (1.0-4.8) k/uL POC Glucose (mg/dL) 312 H (70-110) mg/dL Hemoglobin A1c 12.3 H (<=6.0) % 09/19/24 Range/Units 11:38 RBC (4.30-5.90) m/uL Hgb (13.0-17.5) gm/dL Hct (39.0-53.0) % MCV (80.0-100.0) fL RDW (11.5-15.5) % Plt Count (150-450) k/uL Lymphocytes # (1.0-4.8) k/uL POC Glucose (mg/dL) 349 H (70-110) mg/dL Hemoglobin A1c (<=6.0) % Assessment and Plan Assessment: 1. Left hip IT fracture status post fall - Postop day 1 status post left hip IM nail Plan: 1. Left hip IT fracture - left hip IM nail surgery performed yesterday, 09/18/2024. Patient stable at bedside this morning. Dressings. Visiting, dry contact. Negative for any active drainage. Assess dressings daily. Weightbearing as I with walker assist as needed. PT/OT recommendations. Pain medication as needed. We will continue to follow patient during stay in hospital. 2. Appreciate medical and cardiology management 3. Pain management - norco; tylenol; flexeril 4. DVT prophylaxis -Lovenox; SCDs 5. GI prophylaxis - protonix 6. PT/OT - weightbearing as hard with walker and assistance as needed 7. Encourage incentive spirometer use 8. Discharge planning - plan for discharge to rehab Saturday or Saturday Time with Patient: Less than 30
[2024-09-19] MEDS: ENOXAPARIN 30 MG/0.3 ML SYRINGE SQ SCH (13:31)
--- NOTE | 2024-09-19 15:00 | P.PN ---
Subjective Progress Note Date: 09/19/24 patient is a 63-year-old gentleman with past medical history significant for diabetes mellitus, history of decompensated liver cirrhosis, chronic congestive heart failure diastolic dysfunction, adrenal insufficiency, chronic kidney disease stage who presented the ER for fall. Patient currently a resident of a halfway facility and was apparently trying to be transferred to the toilet when he fell on his left side. Patient loses consciousness. There was no complaint of any head trauma. Because of the fall, patient brought to the ER Initial lab work done in the ER showed WBC 9.8, hemoglobin 10.2, platelet count 66, sodium 130, potassium 2.5, chloride 82, carbon hide 36, creatinine 1.62 EKG done in the ER showed heart rate of 71, no ST segment elevation or depression seen, no T-wave inversions seen. Chest x-ray done in the ER showed no acute finding in the chest X-ray pelvis and hip showed acute left intertrochanteric fracture CT pelvis done showed left intertrochanteric fracture Patient admitted to orthopedic 09/19. Patient seen and examined. Status post left hip intramedullary nail. States he feels better. REVIEW OF SYSTEMS: CONSTITUTIONAL: No fever, no malaise,. CARDIOVASCULAR: No chest pain, no palpitations, no syncope. PULMONARY: No shortness of breath, no cough, GASTROINTESTINAL: No diarrhea, no nausea, no vomiting, no abdominal pain. NEUROLOGICAL: No headaches, no weakness, PHYSICAL EXAMINATION: GENERAL: The patient is alert and oriented x3, HEENT: Pupils are round and equally reacting to light. EOMI. No scleral icterus. No conjunctival pallor. Normocephalic, atraumatic. No pharyngeal erythema. No thyromegaly. CARDIOVASCULAR: S1 and S2 present. No murmurs, rubs, or gallops. PULMONARY: Chest is clear to auscultation, no wheezing or crackles. ABDOMEN: Soft, nontender, nondistended, normoactive bowel sounds. No palpable organomegaly. MUSCULOSKELETAL: Hip surgical incision EXTREMITIES: No cyanosis, clubbing, or pedal edema. NEUROLOGICAL: Gross neurological examination did not reveal any focal deficits. SKIN: No rashes. Assessment and plan Fall Acute left intertrochanteric fracture Hyponatremia Hypokalemia CKD stage III Liver cirrhosis COPD Adrenal insufficiency Diabetes mellitus Coronary artery disease Monitor vital signs Monitor CBC Monitor CMP Status post left hip IM nail surgery Continue blood sugar monitoring, sliding scale insulin and Levemir Continue Solu-Cortef, decrease Solu-Cortef to 50 mg every 12 continue lactulose and rifaximin, hold torsemide. Continue pain management per Ortho Continue DVT prophylaxis per Ortho PT OT consulted Labs and medication were reviewed.. Continue same treatment. Continue with symptomatic treatment. Resume home medication. Monitor labs and vitals. DVT and GI prophylaxis. Further recommendations as per clinical course of the patient Dictation was produced using [employer] dictation software. please excuse any grammatical, word or spelling errors. Objective - Vital Signs Vital signs: Vital Signs Temp 98.2 F 09/19/24 13:34 Pulse 83 09/19/24 13:34 Resp 16 09/19/24 13:34 BP 102/60 09/19/24 13:34 Pulse Ox 94 L 09/19/24 13:34 FiO2 Intake & Output 09/18/24 09/19/24 09/19/24 18:59 06:59 18:59 Intake Total 1200 2160 Output Total 1375 1450 850 Balance -175 710 -850 Weight 102.829 kg Intake: IV 1200 Oral 2160 Output: Urine 1325 1450 850 Estimated Blood Loss 50 Other: Voiding Method External Catheter Indwelling Catheter Indwelling Catheter - Labs CBC & Chem 7: 09/18/24 21:15 09/18/24 13:21 Labs: Abnormal Lab Results - Last 24 Hours (Table) 09/18/24 09/18/24 09/18/24 Range/Units 15:22 18:49 21:08 RBC (4.30-5.90) m/uL Hgb (13.0-17.5) gm/dL Hct (39.0-53.0) % MCV (80.0-100.0) fL RDW (11.5-15.5) % Plt Count (150-450) k/uL Lymphocytes # (1.0-4.8) k/uL POC Glucose (mg/dL) 323 H 273 H 345 H (70-110) mg/dL Hemoglobin A1c (<=6.0) % 09/18/24 09/18/24 09/19/24 Range/Units 21:15 21:15 06:41 RBC 3.09 L (4.30-5.90) m/uL Hgb 10.4 L (13.0-17.5) gm/dL Hct 32.0 L (39.0-53.0) % MCV 103.3 H (80.0-100.0) fL RDW 16.4 H (11.5-15.5) % Plt Count 61 L (150-450) k/uL Lymphocytes # 0.4 L (1.0-4.8) k/uL POC Glucose (mg/dL) 312 H (70-110) mg/dL Hemoglobin A1c 12.3 H (<=6.0) % 09/19/24 Range/Units 11:38 RBC (4.30-5.90) m/uL Hgb (13.0-17.5) gm/dL Hct (39.0-53.0) % MCV (80.0-100.0) fL RDW (11.5-15.5) % Plt Count (150-450) k/uL Lymphocytes # (1.0-4.8) k/uL POC Glucose (mg/dL) 349 H (70-110) mg/dL Hemoglobin A1c (<=6.0) %
[2024-09-19 16:39] LABS: Glucose,Whole Blood 371 mg/dL (70-110)
[2024-09-19] MEDS: HYDROCORTISONE SUCCINATE 100 MG/2 ML VIAL IV SCH (20:08)
[2024-09-19 20:14] LABS: Glucose,Whole Blood 381 mg/dL (70-110)
[2024-09-20 06:31] LABS: Glucose,Whole Blood 193 mg/dL (70-110)
[2024-09-20 09:56] LABS: Basophils # (A) 0.01 X 10*3/uL (0.00-0.10); Basophils % (A) 0.2 %; Eosinophils # (A) 0.07 X 10*3/uL (0.04-0.35); Eosinophils % (A) 1.7 %; HCT 25.7 % (39.6-50.0); HGB 7.9 g/dL (13.0-17.0); Immature Platelet Fraction 2.7 % (1.1-6.1); Lymphocytes # (A) 0.79 X 10*3/uL (0.90-5.00); MCH 32.4 pg (27.0-32.0); MCHC 30.7 g/dL (32.0-37.0); MCV 105.3 FL (80.0-97.0); Mean Platelet Volume 9.3 FL (9.5-12.2); Monocytes # (A) 0.23 X 10*3/uL (0.20-1.00); Monocytes % (A) 5.5 %; NRBC Per 100 WBC 0 X 10*3/uL (0.00-0.01); Neutrophils # (A) 3.02 X 10*3/uL (1.80-7.70); Neutrophils % (A) 72.9 %; Platelet Count 53 X 10*3/uL (140-440); RBC 2.44 X 10*6/uL (4.40-5.60); RDW 16.6 % (11.5-14.5); WBC 4.15 X 10*3/uL (4.50-10.00)
[2024-09-20 10:04] LABS: ALT 19 U/L (10-49); AST 35 U/L (14-35); Albumin 3.1 g/dL (3.8-4.9); Albumin/Globulin Ratio 1.11 Ratio (1.60-3.17); Alkaline Phosphatase 114 U/L (41-126); BUN/Creat Ratio 37.14 Ratio (12.00-20.00); Calcium 8.4 mg/dL (8.7-10.3); Carbon Dioxide 35.3 mmol/L (21.6-31.8); Chloride 92 mmol/L (96-109); Globulin 2.8 g/dL (1.6-3.3); Glucose 173 mg/dL (70-110); Potassium 3.5 mmol/L (3.5-5.5); Sodium 135 mmol/L (135-145); Total Bilirubin 0.6 mg/dL (0.3-1.2); Total Protein 5.9 g/dL (6.2-8.2)
[2024-09-20 11:25] LABS: Glucose,Whole Blood 347 mg/dL (70-110)
--- NOTE | 2024-09-20 11:44 | P.PN ---
Subjective Progress Note Date: 09/20/24 Principal diagnosis: Left hip IT fracture Patient was seen at bedside this morning lying semirecumbent position with Charles/catheter currently in place and dressings present over left lateral hip. Patient states this morning his hip is in more pain and is hoping to get something more for pain. patient says he is looking forward to working with therapy later this morning. Patient denies any other issues at this time. Objective - Vital Signs Vital signs: Vital Signs Temp 98.0 F 09/20/24 07:06 Pulse 92 09/20/24 09:29 Resp 16 09/20/24 07:06 BP 118/75 09/20/24 07:06 Pulse Ox 94 L 09/20/24 07:06 FiO2 Intake & Output 09/19/24 09/20/24 09/20/24 18:59 06:59 18:59 Intake Total 2160 Output Total 1650 2000 Balance -1650 160 Weight 102.829 kg Intake: Oral 2160 Output: Urine 1650 2000 Other: Voiding Method Indwelling Catheter External Catheter - Exam Inspection: Dressing present over left lateral hip. Some swelling present over dressings over left hip. Dressings were changed at bedside this morning. Weems are well aligned and intact. Negative for any active drainage. Negative for any open fractures, significant erythema/ecchymosis. Positive for some swelling diffusely throughout the left hip. Sensation: Equal, symmetric, bilat intact throughout the upper and lower extremities on exam. Palpation: Moderate tenderness to palpation over the left hip diffusely. Nontender to palpation on rest of exam. Range of motion: Full range of motion throughout bilateral upper extremities and right lower extremity exam. Patient is able to dorsi and plantarflex the left ankle. Unable to actively flex or extend left knee and hip secondary to pain. Motor: 4+/5 in all major motor groups in bilateral upper extremities and right lower extremity on exam. 4-/5 left lower extremity on exam Special test: Negative Homans bilaterally. Neurovascular: Radial pulse intact, 2+ bilaterally. Cap refill under 3 seconds in digits of upper extremities - Labs CBC & Chem 7: 09/20/24 06:32 09/20/24 06:32 Labs: Abnormal Lab Results - Last 24 Hours (Table) 09/19/24 09/19/24 09/19/24 Range/Units 11:38 16:38 20:12 WBC (4.50-10.00) X 10*3/uL RBC (4.40-5.60) X 10*6/uL Hgb (13.0-17.0) g/dL Hct (39.6-50.0) % MCV (80.0-97.0) FL MCH (27.0-32.0) pg MCHC (32.0-37.0) g/dL RDW (11.5-14.5) % Plt Count (140-440) X 10*3/uL MPV (9.5-12.2) FL Lymphocytes # (0.90-5.00) X 10*3/uL Chloride (96-109) mmol/L Carbon Dioxide (21.6-31.8) mmol/L BUN (9.0-27.0) mg/dL Est GFR (CKD-EPI) (>=60) BUN/Creatinine Ratio (12.00-20.00) Ratio Glucose (70-110) mg/dL POC Glucose (mg/dL) 349 H 371 H 381 H (70-110) mg/dL Calcium (8.7-10.3) mg/dL Total Protein (6.2-8.2) g/dL Albumin (3.8-4.9) g/dL Albumin/Globulin Ratio (1.60-3.17) Ratio 09/20/24 09/20/24 09/20/24 Range/Units 06:30 06:32 06:32 WBC 4.15 L (4.50-10.00) X 10*3/uL RBC 2.44 L (4.40-5.60) X 10*6/uL Hgb 7.9 L (13.0-17.0) g/dL Hct 25.7 L (39.6-50.0) % MCV 105.3 H (80.0-97.0) FL MCH 32.4 H (27.0-32.0) pg MCHC 30.7 L (32.0-37.0) g/dL RDW 16.6 H (11.5-14.5) % Plt Count 53 L (140-440) X 10*3/uL MPV 9.3 L (9.5-12.2) FL Lymphocytes # 0.79 L (0.90-5.00) X 10*3/uL Chloride 92 L (96-109) mmol/L Carbon Dioxide 35.3 H (21.6-31.8) mmol/L BUN 52.0 H (9.0-27.0) mg/dL Est GFR (CKD-EPI) 57 L (>=60) BUN/Creatinine Ratio 37.14 H (12.00-20.00) Ratio Glucose 173 H (70-110) mg/dL POC Glucose (mg/dL) 193 H (70-110) mg/dL Calcium 8.4 L (8.7-10.3) mg/dL Total Protein 5.9 L (6.2-8.2) g/dL Albumin 3.1 L (3.8-4.9) g/dL Albumin/Globulin Ratio 1.11 L (1.60-3.17) Ratio 09/20/ Range/Units 11:24 WBC (4.50-10.00) X 10*3/uL RBC (4.40-5.60) X 10*6/uL Hgb (13.0-17.0) g/dL Hct (39.6-50.0) % MCV (80.0-97.0) FL MCH (27.0-32.0) pg MCHC (32.0-37.0) g/dL RDW (11.5-14.5) % Plt Count (140-440) X 10*3/uL MPV (9.5-12.2) FL Lymphocytes # (0.90-5.00) X 10*3/uL Chloride (96-109) mmol/L Carbon Dioxide (21.6-31.8) mmol/L BUN (9.0-27.0) mg/dL Est GFR (CKD-EPI) (>=60) BUN/Creatinine Ratio (12.00-20.00) Ratio Glucose (70-110) mg/dL POC Glucose (mg/dL) 347 H (70-110) mg/dL Calcium (8.7-10.3) mg/dL Total Protein (6.2-8.2) g/dL Albumin (3.8-4.9) g/dL Albumin/Globulin Ratio (1.60-3.17) Ratio Assessment and Plan Assessment: 1. Left hip IT fracture status post fall - Postop day 2 status post left hip IM nail Plan: 1. Left hip IT fracture - left hip IM nail surgery performed 09/18/2024. Patient stable at bedside this morning. Dressings changed at bedside this morning. Vinod well aligned and intact. Assess dressings daily. Weightbearing as tolerated with walker assist as needed. PT/OT recommendations. Pain medication as needed. We will continue to follow patient during stay in hospital. 2. Appreciate medical and cardiology management 3. Pain management - norco; tylenol; flexeril 4. DVT prophylaxis -Lovenox; SCDs 5. GI prophylaxis - protonix 6. PT/OT - weightbearing as hard with walker and assistance as needed 7. Encourage incentive spirometer use 8. Discharge planning - plan for discharge to rehab Saturday or Saturday Time with Patient: Less than 30
[2024-09-20] MEDS: oxyCODONE-APAP 5-325MG 1 EACH TAB PO PRN (12:21)
--- NOTE | 2024-09-20 14:54 | P.PN ---
Subjective Progress Note Date: 09/20/24 patient is a 63-year-old gentleman with past medical history significant for diabetes mellitus, history of decompensated liver cirrhosis, chronic congestive heart failure diastolic dysfunction, adrenal insufficiency, chronic kidney disease stage who presented the ER for fall. Patient currently a resident of a group home facility and was apparently trying to be transferred to the toilet when he fell on his left side. Patient loses consciousness. There was no complaint of any head trauma. Because of the fall, patient brought to the ER Initial lab work done in the ER showed WBC 9.8, hemoglobin 10.2, platelet count 66, sodium 130, potassium 2.5, chloride 82, carbon hide 36, creatinine 1.62 EKG done in the ER showed heart rate of 71, no ST segment elevation or depression seen, no T-wave inversions seen. Chest x-ray done in the ER showed no acute finding in the chest X-ray pelvis and hip showed acute left intertrochanteric fracture CT pelvis done showed left intertrochanteric fracture Patient admitted to orthopedic 09/19. Patient seen and examined. Status post left hip intramedullary nail. States he feels better. 09/20. Patient seen and examined. Still complaining of pain in left hip. Working with PT and OT. Change IV Solu-Cortef to home regimen of hydrocortisone REVIEW OF SYSTEMS: CONSTITUTIONAL: No fever, no malaise,. CARDIOVASCULAR: No chest pain, no palpitations, no syncope. PULMONARY: No shortness of breath, no cough, GASTROINTESTINAL: No diarrhea, no nausea, no vomiting, no abdominal pain. NEUROLOGICAL: No headaches, no weakness, PHYSICAL EXAMINATION: GENERAL: The patient is alert and oriented x3, HEENT: Pupils are round and equally reacting to light. EOMI. No scleral icterus. No conjunctival pallor. Normocephalic, atraumatic. No pharyngeal erythema. No thyromegaly. CARDIOVASCULAR: S1 and S2 present. No murmurs, rubs, or gallops. PULMONARY: Chest is clear to auscultation, no wheezing or crackles. ABDOMEN: Soft, nontender, nondistended, normoactive bowel sounds. No palpable organomegaly. MUSCULOSKELETAL: Hip surgical incision EXTREMITIES: No cyanosis, clubbing, or pedal edema. NEUROLOGICAL: Gross neurological examination did not reveal any focal deficits. SKIN: No rashes. Assessment and plan Fall Acute left intertrochanteric fracture Hyponatremia Hypokalemia CKD stage III Liver cirrhosis COPD Adrenal insufficiency Diabetes mellitus Coronary artery disease Monitor vital signs Monitor CBC Monitor CMP Status post left hip IM nail surgery Continue blood sugar monitoring, sliding scale insulin and Levemir, dose of Levemir increased to 25 units twice a day Change IV Solu-Cortef to home regimen of hydrocortisone continue lactulose and rifaximin, hold torsemide. Continue pain management per Ortho Continue DVT prophylaxis per Ortho PT OT consulted Labs and medication were reviewed.. Continue same treatment. Continue with sym ptomatic treatment. Resume home medication. Monitor labs and vitals. DVT and GI prophylaxis. Further recommendations as per clinical course of the patient Dictation was produced using [employer] dictation software. please excuse any grammatical, word or spelling errors. Objective - Vital Signs Vital signs: Vital Signs Temp 98.1 F 09/20/24 12:34 Pulse 92 09/20/24 13:11 Resp 16 09/20/24 12:34 BP 107/66 09/20/24 12:34 Pulse Ox 100 09/20/24 12:34 FiO2 Intake & Output 09/19/24 09/20/24 09/20/24 18:59 06:59 18:59 Intake Total 2160 250 Output Total 1650 2000 Balance -1650 160 250 Weight 102.829 kg Intake: Oral 2160 250 Output: Urine 1650 1999 Other: Voiding Method Indwelling Catheter External Catheter External Catheter - Labs CBC & Chem 7: 09/20/24 06:32 09/20/24 06:32 Labs: Abnormal Lab Results - Last 24 Hours (Table) 09/19/24 09/19/24 09/20/24 Range/Units 16:38 20:12 06:30 WBC (4.50-10.00) X 10*3/uL RBC (4.40-5.60) X 10*6/uL Hgb (13.0-17.0) g/dL Hct (39.6-50.0) % MCV (80.0-97.0) FL MCH (27.0-32.0) pg MCHC (32.0-37.0) g/dL RDW (11.5-14.5) % Plt Count (140-440) X 10*3/uL MPV (9.5-12.2) FL Lymphocytes # (0.90-5.00) X 10*3/uL Chloride (96-109) mmol/L Carbon Dioxide (21.6-31.8) mmol/L BUN (9.0-27.0) mg/dL Est GFR (CKD-EPI) (>=60) BUN/Creatinine Ratio (12.00-20.00) Ratio Glucose (70-110) mg/dL POC Glucose (mg/dL) 371 H 381 H 193 H (70-110) mg/dL Calcium (8.7-10.3) mg/dL Total Protein (6.2-8.2) g/dL Albumin (3.8-4.9) g/dL Albumin/Globulin Ratio (1.60-3.17) Ratio 09/20/24 09/20/24 09/20/24 Range/Units 06:32 06:32 11:24 WBC 4.15 L (4.50-10.00) X 10*3/uL RBC 2.44 L (4.40-5.60) X 10*6/uL Hgb 7.9 L (13.0-17.0) g/dL Hct 25.7 L (39.6-50.0) % MCV 105.3 H (80.0-97.0) FL MCH 32.4 H (27.0-32.0) pg MCHC 30.7 L (32.0-37.0) g/dL RDW 16.6 H (11.5-14.5) % Plt Count 53 L (140-440) X 10*3/uL MPV 9.3 L (9.5-12.2) FL Lymphocytes # 0.79 L (0.90-5.00) X 10*3/uL Chloride 92 L (96-109) mmol/L Carbon Dioxide 35.3 H (21.6-31.8) mmol/L BUN 52.0 H (9.0-27.0) mg/dL Est GFR (CKD-EPI) 57 L (>=60) BUN/Creatinine Ratio 37.14 H (12.00-20.00) Ratio Glucose 173 H (70-110) mg/dL POC Glucose (mg/dL) 347 H (70-110) mg/dL Calcium 8.4 L (8.7-10.3) mg/dL Total Protein 5.9 L (6.2-8.2) g/dL Albumin 3.1 L (3.8-4.9) g/dL Albumin/Globulin Ratio 1.11 L (1.60-3.17) Ratio
[2024-09-20 16:24] LABS: Glucose,Whole Blood 427 mg/dL (70-110)
[2024-09-20 18:06] LABS: Anisocytosis Slight; Basophils % (A) 0 %; Eosinophils # (A) 0.1 k/uL (0-0.7); Eosinophils % (A) 3 %; HCT 25.3 % (39.0-53.0); Hypochromasia Slight; Lymphocytes # (A) 0.7 k/uL (1.0-4.8); Lymphocytes % (A) 21 %; MCH 32.7 pg (25.0-35.0); MCHC 31.6 g/dL (31.0-37.0); MCV 103.6 fL (80.0-100.0); Macrocytosis Moderate; Mean Platelet Volume 10.6; Monocytes # (A) 0.1 k/uL (0-1.0); Monocytes % (A) 4 %; Neutrophils # (A) 2.3 k/uL (1.3-7.7); Neutrophils % (A) 69 %; RBC 2.44 m/uL (4.30-5.90); RDW 16.8 % (11.5-15.5); WBC 3.2 k/uL (3.8-10.6)
[2024-09-20 18:10] LABS: Platelet Count 49 k/uL (150-450)
[2024-09-20 19:46] LABS: Glucose,Whole Blood 359 mg/dL (70-110)
[2024-09-20] MEDS: HYDROCORTISONE 10 MG TAB PO SCH (20:52)
[2024-09-20] MEDS: INSULIN DETEMIR (LEVEMIR) 100 UNIT/ML SYR SQ SCH (22:05)
[2024-09-21 06:35] LABS: Glucose,Whole Blood 115 mg/dL (70-110)
[2024-09-21 07:21] VITALS: TEMP 98.1
[2024-09-21] MEDS: DAPAGLIFLOZIN PROPANEDIOL 5 MG TABLET PO SCH (08:55)
[2024-09-21] MEDS: FOLIC ACID 1 MG TAB PO SCH (08:56)
--- NOTE | 2024-09-21 09:07 | PN ---
PROGRESS NOTE SUBJECTIVE: Nathaniel is a 64-year-old gentleman, who is admitted to the hospital with hip fracture and underwent surgery. We were consulted for preop cardiac evaluation. He has complex and multiple other medical problems including ascites, leg edema, cirrhosis of the liver. An echocardiogram I performed shows normal LV function without significant valvular heart disease. PHYSICAL EXAMINATION: This morning, GENERAL: He is comfortable at rest and is free of symptoms. VITAL SIGNS: Stable. CHEST: Good air entry bilaterally. HEART: First and second heart sounds. No gallop. No murmur. EXTREMITIES: Bilateral pitting edema. LABORATORY DATA: There are no labs. ASSESSMENT: 1. Coronary artery disease. 2. Pancytopenia. 3. Chronic liver disease. 4. Chronic renal failure. 5. Hip fracture, status post surgery. PLAN: The patient is doing well. No other cardiac workup at this time. I will follow on a p.r.n. basis. ESTEBAN / DAVID: [id number] /
[2024-09-21] MEDS: HYDROCORTISONE 20 MG TAB PO SCH (09:10)
--- NOTE | 2024-09-21 09:10 | PN ---
PROGRESS NOTE SUBJECTIVE: A 64-year-old gentleman with complex and multiple medical problems, whom we were initially asked for preop cardiac evaluation. He underwent surgery and has been doing well. Today is postop day #2. An echocardiogram on him revealed normal LV function. OBJECTIVE: VITAL SIGNS: Today, vital signs are stable. O2 saturation is 100% on room air. NECK: There is no jugular venous distention. CHEST: Reveals diminished air entry at the bases. HEART: Reveals first and second heart sounds. No gallop. Has a systolic murmur at the left lower sternal border. ABDOMEN: Appears distended. EXTREMITIES: Reveal bilateral pitting edema. LABORATORY DATA: Labs show that the creatinine is 1.4, BUN is 52, potassium is 5.4. Hemoglobin is 7.9 and platelet count is 53. ASSESSMENT: 1. Status post hip surgery. 2. Pancytopenia. 3. History of cirrhosis. 4. Coronary artery disease. 5. Chronic renal insufficiency. PLAN: The patient's prognosis is guarded. The primary should consider consulting Nephrology and Hematology given the renal failure and thrombocytopenia. MMODL / IJN: [id number] /
--- NOTE | 2024-09-21 10:56 | P.DS ---
Providers Date of admission: 09/18/24 10:39 Expected date of discharge: 09/21/24 Attending physician: Juan Antonio Randall DO Consults: 09/18/24 02:10 Consult Physician Urgent Consulting Provider: Nelly Tong Consult Reason/Comments: Medical management, surgical clearance Do you want consulting provider notified?: Yes Primary care physician: Megan Langford DO Hospital Course: Date of admission: 09/17/2024 Date of discharge: 09/21/2024 Admission diagnosis: Left hip IT fracture Discharge diagnosis: Same Attending physician: Dr. Randall Surgical procedures: Left hip IM nail Brief history: Patient is a 64-year-old male with a history of left hip IT fracture status post fall. At this point patient has failed conservative treatment measures and has opted to proceed with a elective left hip IM nail. Hospital course: Details of patient's surgery can be found in operative report. Patient tolerated the procedure well and was subsequently transported to orthopedic floor. Patient's orthopeidc and medical care was provided daily. Patient had daily laboratory tests performed for evaluation of overall blood counts. Patient had daily physical therapy to include strengthening range of motion as well as education with walker ambulation. Patient was treated with Lovenox for their postoperative DVT prophylaxis during their inpatient stay. Patient was noted to have a relatively uneventful postoperative course. Patient reported satisfactory pain control with oral pain medications by postoperative day 3. Patient showed satisfactory progress with physical therapy. Patient moved steadily through the program and had no difficulty meeting the goals by postoperative day 3. Given patient's otherwise satisfactory course and having met physical therapy goals, plan is to discharge patient to rehab on postoperative day 3. Discharge condition/disposition: Patient will be discharged to rehab in stable condition. Discharge medications: Instructions are given on resumption of patient's normal daily medications per primary care recommendation, in addition patient will be prescribed Percocet; Lovenox; senna. Discharge instructions: 1. Wound care and infection precautions, keep incision dry and covered while showering, no lotions, creams, moisturizers. No soaking, tubs, pools, hottubs. Do not scrub over the incision. 2. Weight-bear as tolerated with walker / cane until follow-up. 3. Ice and elevate when necessary. Do not exceed 20 minutes per hour with ice pack. 4. Utilize compression sleeve until seen at first follow up appointment. 5. Nursing care. 6. Physical therapy daily 7. Pain meds and anticoagulants per prescription. 8. Pain medication has potential to cause constipation. Increase oral fluid and fiber intake. Contact primary care provider if you have not had a bowel movement within 48 hours after discharge 9. No anti-inflammatory medication until discussed at first post operative visit, this including Motrin, Aleve, Mobic, Diclofenac. 10. Follow up in office at [address] Randall. 11. Follow up with your primary care doctor 7-10 days after discharge. 12. Contact [facility] with any questions, . Change dressings as needed Assessment: Left hip IT fracture Procedures: Left hip IM nail Patient Condition at Discharge: Good Plan - Discharge Summary Discharge Rx Participant: No New Discharge Prescriptions: New oxyCODONE HCL/ACETAMINOPHEN [Percocet 5-325 mg] 1 tab PO Q6HR PRN #12 tab PRN Reason: Pain Enoxaparin [Lovenox] 30 mg SQ DAILY 28 Days #28 each Sennosides/Docusate Sodium [Senna Plus 8.6-50 mg Softgel] 1 each PO DAILY #20 capsule No Action Lactulose 20 gm PO BID Hydrocortisone [Cortef] 20 mg PO DAILY metOLazone [Zaroxolyn] 5 mg PO BID Potassium Chloride [K-Tab ER] 20 meq PO DAILY Insulin Glargine,Hum.rec.anlog [Touleonor Solostar] 45 units SQ HS Cholecalciferol (Vitamin D3) [Vitamin D3 (125 MCG = 5,000 IU)] 125 mcg PO DAILY Insulin Lispro-Aabc [Lyumjev Kwikpen U-100] 14 units SQ AC-TID Atorvastatin Calcium 20 mg PO HS diphenhydrAMINE HCL 25 mg PO Q6H PRN PRN Reason: pruitis Lidocaine 4% Patch 1 patch TRANSDERM DAILY Melatonin 5 mg PO HS Naloxone HCl 0.4 mg IM DIRECTED PRN PRN Reason: Opioid Overdose Rifaximin [Xifaxan] 550 mg PO Q12H Umeclidinium Brm/Vilanterol Tr [Anoro Ellipta 62.5-25 Mcg INH] 1 puff INHALATION RT-DAILY ALPRAZolam [Xanax] 0.25 mg PO BID Acetaminophen Tab [Tylenol] 650 mg PO Q6HR PRN PRN Reason: Fever And/ Or Pain Torsemide [Demadex] 40 mg PO BID Pantoprazole [Protonix] 40 mg PO DAILY Spironolactone 25 mg PO DAILY Hydrocortisone [Cortef] 10 mg PO HS Calcium Acetate [PhosLo] 667 mg PO PC-TID Albuterol Nebulized [Ventolin Nebulized] 2.5 mg INHALATION RT-Q4H PRN PRN Reason: Shortness Of Breath Magnesium Oxide [Mag-Ox] 400 mg PO DAILY tab Empagliflozin [Jardiance] 10 mg PO DAILY Folic Acid 1 mg PO DAILY INSULIN LISPRO (HumaLOG) [humaLOG] See Protocol SQ ACHS INSULIN LISPRO (HumaLOG) [humaLOG] 20 units SQ ONETIME Levothyroxine Sodium [Synthroid] 100 mcg PO DAILY traZODone HCL [Desyrel] 50 mg PO HS oxyCODONE HCL [oxyCODONE HCL (IR)] 5 mg PO Q6H PRN PRN Reason: Pain Discharge Medication List Lactulose 20 gm PO BID 10/07/23 [History] Hydrocortisone [Cortef] 20 mg PO DAILY 11/10/23 [History] Pantoprazole [Protonix] 40 mg PO DAILY 12/16/23 [History] Spironolactone 25 mg PO DAILY 12/16/23 [History] Torsemide [Demadex] 40 mg PO BID 12/16/23 [History] metOLazone [Zaroxolyn] 5 mg PO BID 12/16/23 [History] Albuterol Nebulized [Ventolin Nebulized] 2.5 mg INHALATION RT-Q4H PRN 12/17/23 [History] Calcium Acetate [PhosLo] 667 mg PO PC-TID 12/17/23 [History] Hydrocortisone [Cortef] 10 mg PO HS 12/17/23 [History] Magnesium Oxide [Mag-Ox] 400 mg PO DAILY tab 12/24/23 [Rx] Atorvastatin Calcium 20 mg PO HS 05/19/24 [History] Cholecalciferol (Vitamin D3) [Vitamin D3 (125 MCG = 5,000 IU)] 125 mcg PO DAILY 05/19/24 [History] Insulin Glargine,Hum.rec.anlog [Dave Dumont] 45 units SQ HS 05/19/24 [History] Insulin Lispro-Aabc [Lyumjev Kwikpen U-100] 14 units SQ AC-TID 05/19/24 [History] Potassium Chloride [K-Tab ER] 20 meq PO DAILY 05/19/24 [History] ALPRAZolam [Xanax] 0.25 mg PO BID 09/18/24 [History] Acetaminophen Tab [Tylenol] 650 mg PO Q6HR PRN 09/18/24 [History] Empagliflozin [Jardiance] 10 mg PO DAILY 09/18/24 [History] Folic Acid 1 mg PO DAILY 09/18/24 [History] INSULIN LISPRO (HumaLOG) [humaLOG] 20 units SQ ONETIME 09/18/24 [History] INSULIN LISPRO (HumaLOG) [humaLOG] See Protocol SQ ACHS 09/18/24 [History] Levothyroxine Sodium [Synthroid] 100 mcg PO DAILY 09/18/24 [History] Lidocaine 4% Patch 1 patch TRANSDERM DAILY 09/18/24 [History] Melatonin 5 mg PO HS 09/18/24 [History] Naloxone HCl 0.4 mg IM DIRECTED PRN 09/18/24 [History] Rifaximin [Xifaxan] 550 mg PO Q12H 09/18/24 [History] Umeclidinium Brm/Vilanterol Tr [Anoro Ellipta 62.5-25 Mcg INH] 1 puff INHALATION RT-DAILY 09/18/24 [History] diphenhydrAMINE HCL 25 mg PO Q6H PRN 09/18/24 [History] oxyCODONE HCL [oxyCODONE HCL (IR)] 5 mg PO Q6H PRN 09/18/24 [History] traZODone HCL [Desyrel] 50 mg PO HS 09/18/24 [History] Enoxaparin [Lovenox] 30 mg SQ DAILY 28 Days #28 each 09/21/24 [Rx] Sennosides/Docusate Sodium [Senna Plus 8.6-50 mg Softgel] 1 each PO DAILY #20 capsule 09/21/24 [Rx] oxyCODONE HCL/ACETAMINOPHEN [Percocet 5-325 mg] 1 tab PO Q6HR PRN #12 tab 09/21/24 [Rx] Follow up Appointment(s)/Referral(s): Megan Langford DO [Primary Care Provider] - 1-2 days Melba Turner [NON-STAFF] - As Needed Juan Antonio Randall DO [Doctor of Osteopathic Medicine] - 2 Weeks Activity/Diet/Wound Care/Special Instructions: Discharge instructions: 1. Wound care and infection precautions, keep incision dry and covered while showering, no lotions, creams, moisturizers. No soaking, tubs, pools, hottubs. Do not scrub over the incision. 2. Weight-bear as tolerated with walker / cane until follow-up. 3. Ice and elevate when necessary. Do not exceed 20 minutes per hour with ice pack. 4. Utilize compression sleeve until seen at first follow up appointment. 5. Nursing care. 6. Physical therapy daily 7. Pain meds and anticoagulants per prescription. 8. Pain medication has potential to cause constipation. Increase oral fluid and fiber intake. Contact primary care provider if you have not had a bowel movement within 48 hours after discharge 9. No anti-inflammatory medication until discussed at first post operative visit, this including Motrin, Aleve, Mobic, Diclofenac. 10. Follow up in office at [address] Randall. 11. Follow up with your primary care doctor 7-10 days after discharge. 12. Contact [facility] with any questions, . Change dressings as needed Discharge Disposition: TRANSFER TO SNF/ECF
[2024-09-21 11:07] LABS: Glucose,Whole Blood 223 mg/dL (70-110)
--- NOTE | 2024-09-21 11:42 | P.PN ---
Subjective Progress Note Date: 09/21/24 Principal diagnosis: Left hip IT fracture Patient was seen at bedside this morning lying semirecumbent position with Charles/catheter currently in place and dressings present over left lateral hip. Patient states this morning the pain in his hip is not as bad as it was yesterday. patient says he is looking forward to working with therapy later this morning. Patient denies any other issues at this time. Objective - Vital Signs Vital signs: Vital Signs Temp 98.1 F 09/21/24 07:20 Pulse 90 09/21/24 11:08 Resp 16 09/21/24 07:20 BP 97/61 09/21/24 07:20 Pulse Ox 92 L 09/21/24 07:20 FiO2 Intake & Output 09/20/24 09/21/24 09/21/24 18:59 06:59 18:59 Intake Total 550 2160 Output Total 800 2700 Balance -250 -540 Intake: Oral 550 2160 Output: Urine 800 2700 Other: Voiding Method External Catheter External Catheter External Catheter - Exam Inspection: Dressing present over left lateral hip. Dressings appear to be clean, dry, intact. Vinod are well aligned and intact. Negative for any active drainage. Negative for any open fractures, significant erythema/ecchymosis. Positive for some swelling diffusely throughout the left hip. Sensation: Equal, symmetric, bilat intact throughout the upper and lower extremities on exam. Palpation: Moderate tenderness to palpation over the left hip diffusely. Nontender to palpation on rest of exam. Range of motion: Full range of motion throughout bilateral upper extremities and right lower extremity exam. Patient is able to dorsi and plantarflex the left ankle. Unable to actively flex or extend left knee and hip secondary to pain. Motor: 4+/5 in all major motor groups in bilateral upper extremities and right lower extremity on exam. 4-/5 left lower extremity on exam Special test: Negative Homans bilaterally. Neurovascular: Radial pulse intact, 2+ bilaterally. Cap refill under 3 seconds in digits of upper extremities - Labs CBC & Chem 7: 09/20/24 17:53 09/20/24 06:32 Labs: Abnormal Lab Results - Last 24 Hours (Table) 09/20/24 09/20/24 09/20/24 Range/Units 16:23 17:53 19:44 WBC 3.2 L (3.8-10.6) k/uL RBC 2.44 L (4.30-5.90) m/uL Hgb 8.0 L D (13.0-17.5) gm/dL Hct 25.3 L (39.0-53.0) % MCV 103.6 H (80.0-100.0) fL RDW 16.8 H (11.5-15.5) % Plt Count 49 L (150-450) k/uL Lymphocytes # 0.7 L (1.0-4.8) k/uL POC Glucose (mg/dL) 427 H 359 H (70-110) mg/dL 09/21/24 09/21/24 Range/Units 06:33 11:05 WBC (3.8-10.6) k/uL RBC (4.30-5.90) m/uL Hgb (13.0-17.5) gm/dL Hct (39.0-53.0) % MCV (80.0-100.0) fL RDW (11.5-15.5) % Plt Count (150-450) k/uL Lymphocytes # (1.0-4.8) k/uL POC Glucose (mg/dL) 115 H 223 H (70-110) mg/dL Assessment and Plan Assessment: 1. Left hip IT fracture status post fall - Postop day 3 status post left hip IM nail Plan: 1. Left hip IT fracture - left hip IM nail surgery performed 09/18/2024. Patient stable at bedside this morning. Dressings clean, dry, intact at bedside today. Thorpe well aligned and intact. Assess dressings daily. Weightbearing as tolerated with walker assist as needed. PT/OT recommendations. Pain medication as needed. Discharge to rehab today 2. Appreciate medical and cardiology management 3. Pain management - norco; tylenol; flexeril 4. DVT prophylaxis -Lovenox; SCDs 5. GI prophylaxis - protonix 6. PT/OT - weightbearing as tolerated with walker and assistance as needed 7. Encourage incentive spirometer use 8. Discharge planning - plan for discharge to rehab today Time with Patient: Less than 30
[2024-09-21 13:26] VITALS: BP 99/53; PULSE 89; RESP 15
--- NOTE | 2024-09-21 14:04 | P.PN ---
Subjective Progress Note Date: 09/21/24 patient is a 63-year-old gentleman with past medical history significant for diabetes mellitus, history of decompensated liver cirrhosis, chronic congestive heart failure diastolic dysfunction, adrenal insufficiency, chronic kidney disease stage who presented the ER for fall. Patient currently a resident of a [facility] facility and was apparently trying to be transferred to the toilet when he fell on his left side. Patient loses consciousness. There was no complaint of any head trauma. Because of the fall, patient brought to the ER Initial lab work done in the ER showed WBC 9.8, hemoglobin 10.2, platelet count 66, sodium 130, potassium 2.5, chloride 82, carbon hide 36, creatinine 1.62 EKG done in the ER showed heart rate of 71, no ST segment elevation or depression seen, no T-wave inversions seen. Chest x-ray done in the ER showed no acute finding in the chest X-ray pelvis and hip showed acute left intertrochanteric fracture CT pelvis done showed left intertrochanteric fracture Patient admitted to orthopedic 09/19. Patient seen and examined. Status post left hip intramedullary nail. States he feels better. 09/20. Patient seen and examined. Still complaining of pain in left hip. Working with PT and OT. Change IV Solu-Cortef to home regimen of hydrocortisone 09/21. Patient seen and examined. States he is doing much better. Patient is being supposed to discharge back to facility today REVIEW OF SYSTEMS: CONSTITUTIONAL: No fever, no malaise,. CARDIOVASCULAR: No chest pain, no palpitations, no syncope. PULMONARY: No shortness of breath, no cough, GASTROINTESTINAL: No diarrhea, no nausea, no vomiting, no abdominal pain. NEUROLOGICAL: No headaches, no weakness, PHYSICAL EXAMINATION: GENERAL: The patient is alert and oriented x3, HEENT: Pupils are round and equally reacting to light. EOMI. No scleral icterus. No conjunctival pallor. Normocephalic, atraumatic. No pharyngeal erythema. No thyromegaly. CARDIOVASCULAR: S1 and S2 present. No murmurs, rubs, or gallops. PULMONARY: Chest is clear to auscultation, no wheezing or crackles. ABDOMEN: Soft, nontender, nondistended, normoactive bowel sounds. No palpable organomegaly. MUSCULOSKELETAL: Hip surgical incision EXTREMITIES: No cyanosis, clubbing, or pedal edema. NEUROLOGICAL: Gross neurological examination did not reveal any focal deficits. SKIN: No rashes. Assessment and plan Fall Acute left intertrochanteric fracture Hyponatremia Hypokalemia CKD stage III Liver cirrhosis COPD Adrenal insufficiency Diabetes mellitus Coronary artery disease Monitor vital signs Monitor CBC Monitor CMP Status post left hip IM nail surgery Continue blood sugar monitoring, continue home regimen of insulin Continue home regimen of hydrocortisone continue lactulose and rifaximin, torsemide. Continue pain management per Ortho Continue DVT prophylaxis per Ortho PT OT recommend rehab Labs and medication were reviewed.. Continue same treatment. Continue with symptomatic treatment. Resume home medication. Monitor labs and vitals. DVT and GI prophylaxis. Further recommendations as per clinical course of the patient Dictation was produced using [employer] dictation software. please excuse any g rammatical, word or spelling errors. Objective - Vital Signs Vital signs: Vital Signs Temp 98.1 F 09/21/24 13:25 Pulse 89 09/21/24 13:25 Resp 15 09/21/24 13:25 BP 99/53 09/21/24 13:25 Pulse Ox 90 L 09/21/24 13:25 FiO2 Intake & Output 09/20/24 09/21/24 09/21/24 18:59 06:59 18:59 Intake Total 550 2160 Output Total 800 2700 1200 Balance -250 -540 -1200 Intake: Oral 550 2160 Output: Urine 800 2700 1200 Other: Voiding Method External Catheter External Catheter External Catheter - Labs CBC & Chem 7: 09/20/24 17:53 09/20/24 06:32 Labs: Abnormal Lab Results - Last 24 Hours (Table) 09/20/24 09/20/24 09/20/24 Range/Units 16:23 17:53 19:44 WBC 3.2 L (3.8-10.6) k/uL RBC 2.44 L (4.30-5.90) m/uL Hgb 8.0 L D (13.0-17.5) gm/dL Hct 25.3 L (39.0-53.0) % MCV 103.6 H (80.0-100.0) fL RDW 16.8 H (11.5-15.5) % Plt Count 49 L (150-450) k/uL Lymphocytes # 0.7 L (1.0-4.8) k/uL POC Glucose (mg/dL) 427 H 359 H (70-110) mg/dL 09/21/24 09/21/24 Range/Units 06:33 11:05 WBC (3.8-10.6) k/uL RBC (4.30-5.90) m/uL Hgb (13.0-17.5) gm/dL Hct (39.0-53.0) % MCV (80.0-100.0) fL RDW (11.5-15.5) % Plt Count (150-450) k/uL Lymphocytes # (1.0-4.8) k/uL POC Glucose (mg/dL) 115 H 223 H (70-110) mg/dL
== END 2024-09-21 16:05 | DRG 481 ==
LOC: EC 21:07 → 4SSUR 09-18 02:11 → OBSVTOIN 09-18 10:39
PROVIDERS: ADMIT Orthopaedic Surgery; ATTEND Orthopaedic Surgery
PROC: 0QH706Z Insertion of Intramedullary Internal Fixation Device into Left Upper Femur, Open Approach (ICD-10-PCS; principal; 2024-09-18 08:45)
DX: S72.142A Displaced intertrochanteric fracture of left femur, initial encounter for closed fracture (principal); D61.818 Other pancytopenia; E27.40 Unspecified adrenocortical insufficiency; E87.1 Hypo-osmolality and hyponatremia; I50.32 Chronic diastolic (congestive) heart failure; K74.60 Unspecified cirrhosis of liver; E03.9 Hypothyroidism, unspecified; E11.22 Type 2 diabetes mellitus with diabetic chronic kidney disease; E87.6 Hypokalemia; I25.10 Atherosclerotic heart disease of native coronary artery without angina pectoris; I25.82 Chronic total occlusion of coronary artery; J44.9 Chronic obstructive pulmonary disease, unspecified; N18.30 Chronic kidney disease, stage 3 unspecified; W18.11XA Fall from or off toilet without subsequent striking against object, initial encounter; Y92.121 Bathroom in nursing home as the place of occurrence of the external cause; Y99.8 Other external cause status; Z87.891 Personal history of nicotine dependence; Z79.4 Long term (current) use of insulin; Z79.51 Long term (current) use of inhaled steroids; Z79.899 Other long term (current) drug therapy; Z79.52 Long term (current) use of systemic steroids
CPT/HCPCS: 36415; 51702; 71045; 72192; 73502; 80053; 83036; 84132; 85025; 85610; 85730; 93005; 93306; 94640; 96361; 96365; 96366; 96375; 99285

== ENCOUNTER 2025-01-31 17:27 | Inpatient (IN) | payer MEDICARE, OTHER ==
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
[2025-01-31] MEDS: SODIUM CHLORIDE 0.9% 1,000 ML IV ONE ×3 (17:56→22:13)
[2025-01-31 18:01] LABS: Basophils # (A) 0.04 10*3/uL (0.00-0.10); Basophils % (A) 0.5 %; Eosinophils # (A) 0.05 10*3/uL (0.04-0.35); Eosinophils % (A) 0.6 %; HCT 32.3 % (39.6-50.0); Lymphocytes # (A) 0.29 10*3/uL (0.90-5.00); Lymphocytes % (A) 3.5 %; MCH 32.4 pg (27.0-32.0); MCHC 34.1 g/dL (32.0-37.0); MCV 95.3 fL (80.0-97.0); Mean Platelet Volume 10.6 fL (9.5-12.2); Monocytes % (A) 4.9 %; Neutrophils # (A) 7.32 10*3/uL (1.80-7.70); Neutrophils % (A) 89.6 %; RBC 3.39 10*6/uL (4.40-5.60); RDW 16.7 % (11.5-14.5); WBC 8.17 10*3/uL (4.50-10.00)
[2025-01-31 18:05] LABS: Appearance,Urine Clear (Clear); Bilirubin,Urine Negative (Negative); Blood,Urine Negative (Negative); Color,Urine Colorless; Glucose,Urine (UA) 2+ (Negative); Ketones,Urine Negative (Negative); Leukocyte Esterase,Urine Negative (Negative); Nitrite,Urine Negative (Negative); Protein,Urine Negative (Negative); Specific Gravity,Urine 1.006 (1.001-1.035); Urobilinogen,Urine <2.0 mg/dL (<2.0)
[2025-01-31 18:11] LABS: Partial Thromboplastin Time 25.3 sec (22.0-30.0); Prothrombin Time 10.7 sec (10.0-12.5)
[2025-01-31 18:12] LABS: Lactic Acid, Venous 1.1 mmol/L (0.7-2.0)
[2025-01-31 18:14] LABS: ALT 25 U/L (4-49); AST 41 U/L (17-59); African American GFR (CKD) 74 (>60 ml/min/1.73 sqM); Albumin 3.8 g/dL (3.5-5.0); Alcohol <10 mg/dL; Alkaline Phosphatase 129 U/L (38-126); Anion Gap 7 mmol/L; Blood Urea Nitrogen 75 mg/dL (9-20); Calcium 9.3 mg/dL (8.4-10.2); Carbon Dioxide 39 mmol/L (22-30); Chloride 82 mmol/L (98-107); Glucose 159 mg/dL (74-99); Magnesium 2.2 mg/dL (1.6-2.3); Non-African American GFR(CKD) 64 (>60 ml/min/1.73 sqM); Phosphorus 3.3 mg/dL (2.5-4.5); Sodium 128 mmol/L (137-145); Total Bilirubin 1.2 mg/dL (0.2-1.3); Total Protein 7.1 g/dL (6.3-8.2)
[2025-01-31 18:15] LABS: Amphetamine Screen,Urine Not Detected (NotDetected); Barbiturate Screen,Urine Not Detected (NotDetected); Benzodiazepines Screen,Urine Detected (NotDetected); Cocaine Screen,Urine Not Detected (NotDetected); Methadone Screen, Urine Not Detected (NotDetected); Opiate Screen,Urine Not Detected (NotDetected); Oxycodone Screen, Urine Detected (NotDetected); Phencyclidine Screen,Urine Not Detected (NotDetected); Tricyclic Antidepressant,Urine Not Detected (NotDetected); Urn Cannabinoid Scrn Not Detected (NotDetected)
[2025-01-31 18:18] LABS: Potassium 2.5 mmol/L (3.5-5.1)
[2025-01-31 18:20] LABS: Glucose,Whole Blood 235 mg/dL (70-110)
[2025-01-31 18:22] LABS: NT-Pro-B-Type Natriuretic Pept 666 pg/mL
[2025-01-31] MEDS: HYDROCORTISONE SUCCINATE 100 MG/2 ML VIAL IV STA (18:40)
--- NOTE | 2025-01-31 18:44 | CT ---
EXAMINATION TYPE: CT brain cspine wo con CT DLP: 1428.9 mGycm, Automated exposure control for dose reduction was used. DATE OF EXAM: 01/31/2025 6:35 PM COMPARISON: CT brain 10/01/2023. CLINICAL INDICATION:Male, 65 years old with history of fall; ams. fall, pain TECHNIQUE: Brain: Multiple axial CT images of the brain were obtained without IV contrast. Cspine: Axial CT images from the skull base to the inferior aspect of T2 we obtained without intraven ous contrast. Coronal and sagittal reformatted images were also reviewed. FINDINGS: Brain: Extra-axial spaces: No abnormal extra-axial fluid collections. Ventricular system: Within normal limits Cerebral parenchyma: Cerebral atrophy. No acute intraparenchymal hemorrhage or mass effect. Remote l acunar injury to the right caudate nucleus head. The peck-white junction is well differentiated. Scat tered hypoattenuating areas are seen within the periventricular white matter. Cerebellum: Unremarkable. Mass effect: No evidence of midline shift. Intracranial vasculature: unremarkable Soft tissues: Normal. Calvarium/osseous structures: No depressed skull fracture. Paranasal sinuses and mastoid air cells: Mild mucosal thickening of the right maxillary sinus with ai r-fluid level. There is associated hypertrophy of the surrounding kent. Minimal mucosal thickening o f the ethmoid sinuses. Minimal mucosal thickening in the left maxillary sinus. Chronic near complete opacification of the right mastoid air cells. Minimal left mastoid effusion. Visualized orbits: Orbital contents are intact. Cervical spine: Fracture: None. Osseous structures: Multilevel degenerative disc disease changes with endplate spurring and disc oste ophyte complex's. Calcification along the posterior longitudinal ligament at C6. Vertebral alignment: Within normal limits. Spinal canal/Neural Foramina: Disc osteophyte complexes at C3-C4, C4-C5, C5-C6, and C6-C7 with at [address] mild spinal canal stenosis. Facet joint uncovertebral joint arthropathy scattered throughout the c ervical spine with varying degrees of neural foraminal stenosis. Neck soft tissues: Prevertebral soft tissues are within normal limits. Other: The airway is patent. The lung apices are clear. Mild bilateral carotid bulb calcifications. IMPRESSION: 1. No acute intracranial process. 2. Nonspecific white matter changes, likely secondary to chronic small vessel ischemic disease. 3.No evidence of cervical spine fracture. 4. Moderate multilevel degenerative disc disease. 5. Chronic right maxillary sinusitis with air fluid suggesting acute on chronic sinusitis. Correlate clinically. 6. Bilateral mastoid effusions redemonstrated with right greater than left. [facility], , 01/31/2025 6:42 PM
[2025-01-31 18:49] LABS: Platelet Count 48 10*3/uL (140-440)
--- NOTE | 2025-01-31 19:12 | XR ---
EXAMINATION TYPE: XR chest 1V DATE OF EXAM: 01/31/2025 7:05 PM COMPARISON: Chest radiographs from 09/17/2024 TECHNIQUE: XR chest 1V Frontal view of the chest. CLINICAL INDICATION:Male, 65 years old with history of altered mental status; FINDINGS: Lungs/Pleura: There is no evidence of pleural effusion, focal consolidation, or pneumothorax. Chroni c right basilar pleural parenchymal scarring. Pulmonary vascularity: Unremarkable. Heart/mediastinum: Cardiomediastinal silhouette is unremarkable. Musculoskeletal: No acute osseous pathology. Surgical anchor involving the right humeral head. Bilate ral shoulder arthropathy. IMPRESSION: Chronic changes without evidence for acute process. [facility], , 01/31/2025 7:10 PM
--- NOTE | 2025-01-31 19:15 | XR ---
EXAMINATION TYPE: XR pelvis AP view DATE OF EXAM: 01/31/2025 7:05 PM INDICATION: Patient age:Male; 65 years old; Reason for study: fall; PHH. pain COMPARISON: Left hip radiograph 09/18/2024, CT pelvis 09/18/2024 TECHNIQUE: The pelvis was examined in a single projection. FINDINGS: Postsurgical changes from intramedullary jinny with patient screw involving the left femur. H ardware appears intact with appropriate alignment. No acute fracture or dislocation. Posterior change s of both hips with medial joint space narrowing and acetabular sclerosis and marginal osteophytosis. Vascular sclerosis. No soft tissue swelling. Multilevel degenerative disc disease of the lumbar spin e. The bilateral SI joints appear intact. IMPRESSION: 1. No acute osseous pathology. 2. Postfixation changes of the left proximal femur. 3. Moderate osteoarthritic changes of both hips. [facility], , 01/31/2025 7:12 PM
[2025-01-31] MEDS ORDERED: Potassium Replacement Protocol 1 EACH MISC MISCELLANE PRN (20:05)
[2025-01-31] MEDS ORDERED: NALOXONE 0.4 MG/ML 1 ML VIAL IV PRN (20:05)
[2025-01-31] MEDS ORDERED: LORazepam 1 MG/0.5 ML VIAL IV PRN (20:05)
[2025-01-31] MEDS ORDERED: Magnesium Replacement Protocol 1 EACH MISC MISCELLANE PRN (20:05)
[2025-01-31] MEDS ORDERED: Phosphorus Replacement Protoco 1 EACH MISC MISCELLANE PRN (20:05)
[2025-01-31] MEDS: POTASSIUM CHLORIDE 20 MEQ in WATER FOR INJECTION 1 100ML.BAG IVPB SCH (20:07)
[2025-01-31] MEDS: DEXTROSE 5%-0.45% NACL 1,000 ML IV SCH (20:14)
[2025-01-31] MEDS: AMPICILLIN-SULBACTAM 3 GM in SODIUM CHLORIDE 0.9% 100 ML IVPB STA (21:59)
[2025-01-31] MEDS: PANTOPRAZOLE 40 MG/10 ML VIAL IV SCH (22:00)
[2025-01-31] MEDS: HYDROCORTISONE SUCCINATE 100 MG/2 ML VIAL IV SCH (23:55)
[2025-01-31] MEDS: AMPICILLIN-SULBACTAM 3 GM in SODIUM CHLORIDE 0.9% 100 ML IVPB SCH (23:59)
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
[2025-02-01] MEDS ORDERED: DEXTROSE 50% SYRINGE 50 ML IVP PRN ×2 (03:16)
[2025-02-01] MEDS: RIFAXIMIN 550 MG TABLET PO SCH (05:12)
[2025-02-01 06:03] LABS: Eosinophils # (A) 0.01 10*3/uL (0.04-0.35); Eosinophils % (A) 0.4 %; HCT 28.4 % (39.6-50.0); HGB 9.6 g/dL (13.0-17.0); Lymphocytes % (A) 10.8 %; MCH 32.7 pg (27.0-32.0); MCHC 33.8 g/dL (32.0-37.0); MCV 96.6 fL (80.0-97.0); Mean Platelet Volume 9.5 fL (9.5-12.2); Monocytes # (A) 0.09 10*3/uL (0.20-1.00); Monocytes % (A) 3.2 %; Neutrophils # (A) 2.36 10*3/uL (1.80-7.70); Neutrophils % (A) 84.9 %; RBC 2.94 10*6/uL (4.40-5.60); RDW 16.8 % (11.5-14.5); WBC 2.78 10*3/uL (4.50-10.00)
[2025-02-01] MEDS: LEVOTHYROXINE 100 MCG TAB PO SCH (06:09)
[2025-02-01 06:12] LABS: Platelet Count 45 10*3/uL (140-440)
[2025-02-01 06:30] LABS: Glucose,Whole Blood 222 mg/dL (70-110)
[2025-02-01 06:34] LABS: ALT 31 U/L (4-49); AST 48 U/L (17-59); African American GFR (CKD) 81 (>60 ml/min/1.73 sqM); Albumin 3.1 g/dL (3.5-5.0); Alkaline Phosphatase 103 U/L (38-126); Anion Gap 9 mmol/L; Blood Urea Nitrogen 62 mg/dL (9-20); Calcium 8.7 mg/dL (8.4-10.2); Carbon Dioxide 30 mmol/L (22-30); Chloride 93 mmol/L (98-107); Glucose 117 mg/dL (74-99); Non-African American GFR(CKD) 70 (>60 ml/min/1.73 sqM); Phosphorus 3.5 mg/dL (2.5-4.5); Potassium 2.9 mmol/L (3.5-5.1); Sodium 132 mmol/L (137-145); Total Bilirubin 0.6 mg/dL (0.2-1.3); Total Protein 5.9 g/dL (6.3-8.2)
[2025-02-01] MEDS: POTASSIUM CHLORIDE 10 MEQ in WATER FOR INJECTION 1 100ML.BAG IVPB SCH (07:47)
--- NOTE | 2025-02-01 08:34 | XR ---
EXAMINATION TYPE: XR chest 1V DATE OF EXAM: 02/01/2025 COMPARISON: 5 CLINICAL INDICATION: Male, 65 years old with history of ICU; shortness of breath TECHNIQUE: Single frontal view of the chest is obtained. FINDINGS: Exam is off centered and the patient is slightly rotated towards the right and obliquely t oward the left. This likely accounts for the differential density over the right hemithorax. Similar small right pleural effusion and similar pleural based calcifications on the right. Mild increased in terstitial density, right greater than left similar as well. Heart borderline enlarged. IMPRESSION: 1. Pleural-based calcifications redemonstrated on the right. Correlate for any history of prior asbes tos exposure versus previous empyema/hemothorax. 2. Ongoing small right pleural effusion. Similar interstitial density could reflect pulmonary vascula r congestion. [facility], , 02/01/2025 8:32 AM
[2025-02-01 09:26] LABS: Glucose,Whole Blood 214 mg/dL (70-110)
[2025-02-01] MEDS: INSULIN LISPRO (HumaLOG) 100 UNIT/ML 10 mL VL SQ SCH (09:29)
[2025-02-01] MEDS ORDERED: ALPRAZolam 0.25 MG TAB PO SCH (12:45)
[2025-02-01 13:01] LABS: Glucose,Whole Blood 274 mg/dL (70-110)
[2025-02-01] MEDS: LACTATED RINGERS 1,000 ML IV SCH (13:36)
[2025-02-01] MEDS: ACETAMINOPHEN TAB 325 MG TAB PO PRN (15:19)
[2025-02-01] MEDS: LORazepam 1 MG TAB PO PRN (16:33)
[2025-02-01 17:12] LABS: Glucose,Whole Blood 248 mg/dL (70-110)
[2025-02-01 20:11] LABS: Glucose,Whole Blood 239 mg/dL (70-110)
[2025-02-01] MEDS: ATORVASTATIN 20 MG TAB PO SCH (20:46)
[2025-02-01] MEDS: traZODone HCL 50 MG TAB PO SCH (20:46)
[2025-02-02 06:27] LABS: Glucose,Whole Blood 261 mg/dL (70-110)
[2025-02-02] MEDS: FORMOTEROL FUMARATE 20 MCG/2 ML NEBU INHALATION SCH (08:42)
[2025-02-02] MEDS: TIOTROPIUM 2.5 MCG INHALER INHALATION SCH (08:42)
[2025-02-02 09:06] LABS: Basophils # (A) 0.01 10*3/uL (0.00-0.10); Basophils % (A) 0.2 %; HCT 30.3 % (39.6-50.0); Lymphocytes # (A) 0.38 10*3/uL (0.90-5.00); Lymphocytes % (A) 7.5 %; MCH 32.9 pg (27.0-32.0); MCV 99.7 fL (80.0-97.0); Mean Platelet Volume 9.7 fL (9.5-12.2); Monocytes # (A) 0.17 10*3/uL (0.20-1.00); Monocytes % (A) 3.3 %; Neutrophils # (A) 4.46 10*3/uL (1.80-7.70); Neutrophils % (A) 87.8 %; RBC 3.04 10*6/uL (4.40-5.60); RDW 17.1 % (11.5-14.5); WBC 5.08 10*3/uL (4.50-10.00)
[2025-02-02 09:20] LABS: African American GFR (CKD) 82 (>60 ml/min/1.73 sqM); Anion Gap 4 mmol/L; Blood Urea Nitrogen 47 mg/dL (9-20); Calcium 8.6 mg/dL (8.4-10.2); Carbon Dioxide 30 mmol/L (22-30); Chloride 95 mmol/L (98-107); Glucose 231 mg/dL (74-99); Non-African American GFR(CKD) 71 (>60 ml/min/1.73 sqM); Potassium 3.4 mmol/L (3.5-5.1); Sodium 129 mmol/L (137-145)
[2025-02-02 10:16] LABS: Platelet Count 54 10*3/uL (140-440)
--- NOTE | 2025-02-02 10:42 | P.PN ---
Subjective Progress Note Date: 02/02/25 Patient is a 65-year-old male with past medical history significant for multiple comorbidities including COPD, chronic ongoing tobacco dependence, diabetes mellitus, hypothyroidism, alcoholism, liver cirrhosis and previous paracentesis, previous episode of acute kidney injury on top of chronic kidney disease requiring temporary hemodialysis, and previous episode of aspiration/pneumonia requiring intubation with mechanical ventilation. Patient brought in by EMS yesterday evening after being found on the ground and confused. Evaluation in the ED found the patient to be hypotensive, hypothermic, and bradycardic. Patient received several warmed fluid boluses, including a total of 3 L normal saline so far. Patient's temperature 90.6 F rectally, and a external warming blanket was applied. Bradycardia as low as 46 bpm, with sinus mechanism. Also, noted to have several electrolyte disturbances including severe hypokalemia with a potassium of 2.5. Remaining labs including a CBC with a WBC count of 8.2, hemoglobin 11, platelets 48,000. CMP: Sodium 128, potassium 2.5, chloride 82, serum bicarb 39, BUN 75, creatinine 1.21, glucose 159. LFTs not elevated. Total bilirubin 1.2. Lactic 1.1. TSH 1. Troponin 0.015. NT proBNP 666. EKG: Sinus bradycardia, rate 56 bpm, no acute ST elevations or depressions. Occasional PVC. Urinalysis unremarkable for infection. Urine toxicology screen positive for oxycodone and benzodiazepines. He is complaining of left hip pain. Did have a fall with left hip fracture back in August,. He underwent intramedullary nailing with fixation of the left intertrochanteric fracture. Pelvis x-ray did not show any acute osseous pathology. Post fixation changes of the left proximal femur. Moderate osteoarthritic changes of bilateral hips. CT of the head and C-spine did not show any acute intracranial process. No cerv ical spine fracture or subluxation. Chronic right maxillary sinusitis with air- fluid level suggesting acute on chronic sinusitis. Bilateral mastoid effusions redemonstrated. Patient currently being evaluated in the emergency department, room 7. He is awake and alert. He does not recall the events prior to him ending up on the floor. States he was the one that called 911. His primary complaint is left hip pain. Temperature is now normothermic and external warming blanket can be removed. Bradycardia has resolved, heart rate currently 66 bpm on bedside monitor. Blood pressure marginal, currently 87/51 mmHg. He was given a stress dose of Solu-Cortef in the ED. A Charles catheter was placed and patient's urometer is full with clear yellow urine. Electrolytes are currently being replaced. Abdomen is nondistended and nontender. Patient is unclear when he last had a paracentesis. Denies any alcohol use for many years. Serum alcohol is less than 10. Denies any nausea, vomiting, diarrhea. No reports of aspiration. Denies any difficulty in breathing. On room air. No coughing, sputum production, chest pain. Denies fevers or chills. Chest x-ray remarkable for chronic small right-sided pleural effusion. No acute cardiopulmonary process. Started empirically on Unasyn in the ED. No obvious source of infection identified at this point. 02/02/2025, the patient is on room air oxygen. No respiratory difficulties. No cough sputum production chest tightness or wheezing. The patient has been resuscitated with IV fluids and the patient was taken off the diuretics. He is currently normotensive. BUN and creatinine continues to improve. The patient is also known to me. On today's blood work, sodium is at 129, potassium is at 3.4, BUN is 47 creatinine 1.1. Glucose at 231 with a calcium level of 8.6. The white cell count is at 5 with a hemoglobin of 10 and a platelet count of 54. The patient is on IV Unasyn. The patient is on hydrocortisone stress dose. The patient is on Synthroid. The patient is on DuoNeb updrafts and Spiriva and the rest of the home medication below resume. Objective - Vital Signs Vital signs: Vital Signs Temp 98.1 F 02/02/25 03:04 Pulse 76 02/02/25 08:54 Resp 16 02/02/25 03:04 BP 108/63 02/02/25 03:04 Pulse Ox 93 L 02/02/25 03:04 FiO2 Intake & Output 02/01/25 02/02/25 02/02/25 18:59 06:59 18:59 Intake Total 118 Output Total 1150 925 Balance -1032 -925 Weight 96.162 kg 96 kg Intake: Oral 118 Output: Urine 1150 925 Other: Voiding Method Indwelling Catheter Bedpan Indwelling Catheter # Bowel Movements 1 - Exam GENERAL EXAM: Alert, 65-year-old male, lying supine, blood pressure borderline hypotensive, external warming blanket on, appears fairly comfortable in no apparent distress. HEAD: Normocephalic and atraumatic EYES: Normal reaction of pupils, equal size. Nonicteric sclera. No nystagmus. NOSE: Clear with pink turbinates. THROAT: No erythema or exudates. NECK: No masses, no JVD. CHEST: No chest wall deformity. LUNGS: Equal air entry with no crackles, wheeze, rhonchi or dullness. On room air. No conversational dyspnea or accessory muscle use.. CVS: S1 and S2 normal with no audible murmur, regular rhythm. No extra heart so unds ABDOMEN: Obese, reducible periumbilical hernia, active bowel sounds, abdomen soft and nondistended, no guarding or rigidity, no hepatosplenomegaly. SPINE: No scoliosis or deformity SKIN: Nonjaundiced. No rashes. Remote appearing medial right calf skin graft. CENTRAL NERVOUS SYSTEM: No focal deficits, tone is normal in all 4 extremities. EXTREMITIES: There is no peripheral edema, clubbing, or cyanosis. Peripheral pulses are intact. No limitation of active ROM. - Labs CBC & Chem 7: 02/02/25 08:55 02/02/25 08:55 Labs: Abnormal Lab Results - Last 24 Hours (Table) 02/01/25 02/01/25 02/01/25 Range/Units 05:45 09:24 13:00 Potassium (3.5-5.1) mmol/L POC Glucose (mg/dL) 214 H 274 H (70-110) mg/dL Hemoglobin A1c 7.7 H (<=6.0) % 02/01/25 02/01/25 02/01/25 Range/Units 17:03 20:09 21:19 Potassium 3.4 L (3.5-5.1) mmol/L POC Glucose (mg/dL) 248 H 239 H (70-110) mg/dL Hemoglobin A1c (<=6.0) % 02/02/25 Range/Units 06:25 Potassium (3.5-5.1) mmol/L POC Glucose (mg/dL) 261 H (70-110) mg/dL Hemoglobin A1c (<=6.0) % Assessment and Plan Assessment: Hypotension, requiring multiple fluid boluses, 3 L normal saline bolus and the patient was maintained IV fluids and currently normotensive. He is also off diuretics. No clear indication for underlying sepsis at this point. Sinus bradycardia, resolved Hypothermia, temperature 90.6 F on arrival, external warming blanket was used and currently normothermic Multiple electrolyte disturbances including hypokalemia and hyponatremia Altered mental status, suspect acute metabolic encephalopathy, secondary to combination above, improved and the patient's mentation is back to normal Chronic obstructive pulmonary disease, stable/inactive Chronic ongoing tobacco dependence History of alcohol abuse, serum alcohol less than 10 on arrival History of liver cirrhosis and ascites, previously requiring paracentesis Chronic thrombocytopenia Chronic kidney disease stage III, previously requiring temporary hemodialysis, creatinine stable Diabetes mellitus, insulin-dependent Hypothyroidism Anemia of chronic disease, hemoglobin stable History of left intertrochanteric fracture status post intramedullary nailing with fixation Plan: Blood pressure is stable Will change to lactated Ringer to KVO Hold diuretics Now normothermic, with a temperature of 98.4 F Bradycardia is resolved Continue IV Unasyn No obvious source of infection identified at this time. No signs of SBP Chest x-ray reviewed, chronic changes without acute focal infiltrates Urinalysis unremarkable for infection Obtain blood cultures, results are still pending for now Given stress dose of Solu-Cortef in the ED Urine toxicology screen positive for oxycodone and benzodiazepines Serum alcohol level less than 10 Prognosis is guarded secondary to above-mentioned comorbidities. Will follow. Time with Patient: Greater than 30
[2025-02-02 11:21] LABS: Glucose,Whole Blood 219 mg/dL (70-110)
--- NOTE | 2025-02-02 12:18 | P.PN ---
Subjective Progress Note Date: 02/02/25 Subjective: Patient seen and examined at bedside. No acute events overnight. Complaining of left hip pain. Pertinent positives and negatives as discussed above, a complete review of systems was performed and all other systems are negative. Vitals Signs Reviewed. General: Nontoxic, no distress, appears at stated age Derm: Warm, dry Head: Atraumatic, normocephalic, symmetric Eyes: EOMI, no lid lag, anicteric sclera Mouth: No lip lesion, mucus membranes moist Cardiovascular: S1S2 reg, no murmur Lungs: CTA bilateral, no rhonchi, no rales, no accessory muscle use Abdominal: Soft, nontender to palpation, no guarding, no appreciable organomegaly Ext: No gross muscle atrophy, no edema, no contractures, right hip flexion limited due to pain Neuro: CN II-XI grossly intact, no focal neuro deficits Psych: Alert, oriented, appropriate affect Data Reviewed Today: Pertinent Labs: WBC 5.08, hemoglobin 10, platelet 54, sodium 129, potassium 3.4, creatinine 1.11, blood sugars range between 219-261 Imaging: No new imaging Assessment and Plan: Active: Suspected adrenal crisis Hypotension, resolved Hypothermia, resolved Sinus bradycardia, resolved Hypokalemia Hyponatremia Alcoholic liver cirrhosis Acute metabolic encephalopathy, resolved - Unclear source of infection - No clear signs of peritonitis or decompensated liver failure - Currently being empirically treated on IV Unasyn 3 g every 6 hours - Blood cultures pending - On stress dose steroids, reduce hydrocortisone to 50 every 6 hours IV, hold home hydrocortisone - Continue to hold home metolazone, spironolactone, torsemide - Blood pressure has improved - 20 mEq of oral potassium given today - Sodium initially improved with IV fluids, now downtrending, IV fluids has been discontinued, repeat CMP tomorrow - Continue home IV rifaximin 550 every 12 hours, lactulose 20 g every 12 hours - Mental status at baseline, urine toxicology positive for benzo and oxycodone - Patient currently back on home oxycodone 5 every 8 hours Type 2 diabetes - Holding home insulin therapy, started on Lantus 30 units daily, continue lispro sliding scale, monitor for hypoglycemia - Hold other home oral antidiabetics Left hip pain - Continue with Tylenol and oxycodone - Pelvic x-ray on admission did not show any fractures Bicytopenia -Likely secondary to cirrhosis Chronic: COPD, not in exacerbation CAD CKD, likely stage II Hypothyroidism Dyslipidemia DVT ppx: Subcu heparin Code status: Full code Anticipated discharge place: Pending clinical course Anticipated discharge time: Pending clinical course Objective - Vital Signs Vital signs: Vital Signs Temp 98.1 F 02/02/25 03:04 Pulse 76 02/02/25 08:54 Resp 16 02/02/25 03:04 BP 108/63 02/02/25 03:04 Pulse Ox 93 L 02/02/25 03:04 FiO2 Intake & Output 02/01/25 02/02/25 02/02/25 18:59 06:59 18:59 Intake Total 118 1560 Output Total 1150 925 675 Balance -1032 -925 885 Weight 96.162 kg 96 kg Intake: Oral 118 1560 Output: Urine 1150 925 675 Other: Voiding Method Indwelling Catheter Bedpan Indwelling Catheter # Bowel Movements 1 1 - Labs CBC & Chem 7: 02/02/25 08:55 02/02/25 08:55 Labs: Abnormal Lab Results - Last 24 Hours (Table) 02/01/25 02/01/25 02/01/25 Range/Units 05:45 13:00 17:03 RBC (4.40-5.60) 10*6/uL Hgb (13.0-17.0) g/dL Hct (39.6-50.0) % MCV (80.0-97.0) fL MCH (27.0-32.0) pg Plt Count (140-440) 10*3/uL Immature Gran # (0.00-0.04) 10*3/uL Lymphocytes # (0.90-5.00) 10*3/uL Monocytes # (0.20-1.00) 10*3/uL Eosinophils # (0.04-0.35) 10*3/uL Sodium (137-145) mmol/L Potassium (3.5-5.1) mmol/L Chloride (98-107) mmol/L BUN (9-20) mg/dL Glucose (74-99) mg/dL POC Glucose (mg/dL) 274 H 248 H (70-110) mg/dL Hemoglobin A1c 7.7 H (<=6.0) % 02/01/25 02/01/25 02/02/25 Range/Units 20:09 21:19 06:25 RBC (4.40-5.60) 10*6/uL Hgb (13.0-17.0) g/dL Hct (39.6-50.0) % MCV (80.0-97.0) fL MCH (27.0-32.0) pg Plt Count (140-440) 10*3/uL Immature Gran # (0.00-0.04) 10*3/uL Lymphocytes # (0.90-5.00) 10*3/uL Monocytes # (0.20-1.00) 10*3/uL Eosinophils # (0.04-0.35) 10*3/uL Sodium (137-145) mmol/L Potassium 3.4 L (3.5-5.1) mmol/L Chloride (98-107) mmol/L BUN (9-20) mg/dL Glucose (74-99) mg/dL POC Glucose (mg/dL) 239 H 261 H (70-110) mg/dL Hemoglobin A1c (<=6.0) % 02/02/25 02/02/25 02/02/25 Range/Units 08:55 08:55 11:19 RBC 3.04 L (4.40-5.60) 10*6/uL Hgb 10.0 L (13.0-17.0) g/dL Hct 30.3 L (39.6-50.0) % MCV 99.7 H (80.0-97.0) fL MCH 32.9 H (27.0-32.0) pg Plt Count 54 L (140-440) 10*3/uL Immature Gran # 0.06 H (0.00-0.04) 10*3/uL Lymphocytes # 0.38 L (0.90-5.00) 10*3/uL Monocytes # 0.17 L (0.20-1.00) 10*3/uL Eosinophils # 0.00 L (0.04-0.35) 10*3/uL Sodium 129 L (137-145) mmol/L Potassium 3.4 L (3.5-5.1) mmol/L Chloride 95 L (98-107) mmol/L BUN 47 H (9-20) mg/dL Glucose 231 H (74-99) mg/dL POC Glucose (mg/dL) 219 H (70-110) mg/dL Hemoglobin A1c (<=6.0) %
[2025-02-02] MEDS ORDERED: INSULIN GLARGINE (LANTUS) 100 UNIT/ML SYR SQ SCH (12:30)
[2025-02-02] MEDS: POTASSIUM CHLORIDE ER 20 MEQ TAB.ER PO STA (12:47)
[2025-02-02] MEDS: HYDROCORTISONE SUCCINATE 100 MG/2 ML VIAL IV SCH (12:47)
[2025-02-02] MEDS: INSULIN GLARGINE (LANTUS) 100 UNIT/ML SYR SQ STA (12:49)
[2025-02-02] MEDS: LACTULOSE 20 GM/30 ML CUP PO SCH (13:05)
[2025-02-02 16:10] LABS: Glucose,Whole Blood 289 mg/dL (70-110)
[2025-02-02] MEDS: HEPARIN SODIUM,PORCINE 5,000 UNIT/ML 1 ML VIAL SQ SCH (20:20)
[2025-02-02 20:41] LABS: Glucose,Whole Blood 367 mg/dL (70-110)
[2025-02-03 06:10] LABS: Glucose,Whole Blood 184 mg/dL (70-110)
[2025-02-03 08:49] LABS: Basophils # (A) 0 X 10*3/uL (0.00-0.10); Basophils % (A) 0 %; Eosinophils # (A) 0 X 10*3/uL (0.04-0.35); Eosinophils % (A) 0 %; HCT 28.9 % (39.6-50.0); HGB 9.1 g/dL (13.0-17.0); Immature Platelet Fraction 2.2 % (1.1-6.1); Lymphocytes # (A) 0.42 X 10*3/uL (0.90-5.00); Lymphocytes % (A) 13.9 %; MCH 31.3 pg (27.0-32.0); MCHC 31.5 g/dL (32.0-37.0); MCV 99.3 FL (80.0-97.0); Mean Platelet Volume 10.1 FL (9.5-12.2); Monocytes # (A) 0.15 X 10*3/uL (0.20-1.00); NRBC Per 100 WBC 0 X 10*3/uL (0.00-0.01); Neutrophils # (A) 2.41 X 10*3/uL (1.80-7.70); Neutrophils % (A) 79.4 %; Platelet Count 48 X 10*3/uL (140-440); RBC 2.91 X 10*6/uL (4.40-5.60); RDW 17.1 % (11.5-14.5); WBC 3.03 X 10*3/uL (4.50-10.00)
[2025-02-03] MEDS: SENNOSIDES-DOCUSATE SODIUM 1 EACH TAB PO SCH (08:49)
[2025-02-03 08:50] LABS: AST 48 U/L (14-35); Albumin 3.4 g/dL (3.8-4.9); Albumin/Globulin Ratio 1.42 Ratio (1.60-3.17); BUN/Creat Ratio 32.38 Ratio (12.00-20.00); Blood Urea Nitrogen 42.1 mg/dL (9.0-27.0); Calcium 8.4 mg/dL (8.7-10.3); Carbon Dioxide 30.3 mmol/L (21.6-31.8); Chloride 97 mmol/L (96-109); Globulin 2.4 g/dL (1.6-3.3); Glucose 207 mg/dL (70-110); Magnesium 2.1 mg/dL (1.5-2.4); Potassium 3.2 mmol/L (3.5-5.5); Sodium 136 mmol/L (135-145); Total Bilirubin 0.3 mg/dL (0.3-1.2); Total Protein 5.8 g/dL (6.2-8.2)
[2025-02-03 08:51] LABS: ALT 33 U/L (10-49); Alkaline Phosphatase 124 U/L (41-126)
[2025-02-03] MEDS: INSULIN GLARGINE (LANTUS) 100 UNIT/ML SYR SQ SCH (09:17)
[2025-02-03] MEDS: IPRATROPIUM-ALBUTEROL 3 ML NEB INHALATION PRN (09:53)
[2025-02-03] MEDS: POTASSIUM CHLORIDE ER 20 MEQ TAB.ER PO STA (10:59)
[2025-02-03] MEDS: INSULIN GLARGINE (LANTUS) 100 UNIT/ML SYR SQ STA (10:59)
[2025-02-03 11:31] LABS: Glucose,Whole Blood 362 mg/dL (70-110)
--- NOTE | 2025-02-03 16:13 | P.PN ---
Subjective Progress Note Date: 02/03/25 Patient is a 65-year-old male with past medical history significant for multiple comorbidities including COPD, chronic ongoing tobacco dependence, diabetes mellitus, hypothyroidism, alcoholism, liver cirrhosis and previous paracentesis, previous episode of acute kidney injury on top of chronic kidney disease requiring temporary hemodialysis, and previous episode of aspiration/pneumonia requiring intubation with mechanical ventilation. Patient brought in by EMS yesterday evening after being found on the ground and confused. Evaluation in the ED found the patient to be hypotensive, hypothermic, and bradycardic. Patient received several warmed fluid boluses, including a total of 3 L normal saline so far. Patient's temperature 90.6 F rectally, and a external warming blanket was applied. Bradycardia as low as 46 bpm, with sinus mechanism. Also, noted to have several electrolyte disturbances including severe hypokalemia with a potassium of 2.5. Remaining labs including a CBC with a WBC count of 8.2, hemoglobin 11, platelets 48,000. CMP: Sodium 128, potassium 2.5, chloride 82, serum bicarb 39, BUN 75, creatinine 1.21, glucose 159. LFTs not elevated. Total bilirubin 1.2. Lactic 1.1. TSH 1. Troponin 0.015. NT proBNP 666. EKG: Sinus bradycardia, rate 56 bpm, no acute ST elevations or depressions. Occasional PVC. Urinalysis unremarkable for infection. Urine toxicology screen positive for oxycodone and benzodiazepines. He is complaining of left hip pain. Did have a fall with left hip fracture back in August,. He underwent intramedullary nailing with fixation of the left intertrochanteric fracture. Pelvis x-ray did not show any acute osseous pathology. Post fixation changes of the left proximal femur. Moderate osteoarthritic changes of bilateral hips. CT of the head and C-spine did not show any acute intracranial process. No cerv ical spine fracture or subluxation. Chronic right maxillary sinusitis with air- fluid level suggesting acute on chronic sinusitis. Bilateral mastoid effusions redemonstrated. Patient currently being evaluated in the emergency department, room 7. He is awake and alert. He does not recall the events prior to him ending up on the floor. States he was the one that called 911. His primary complaint is left hip pain. Temperature is now normothermic and external warming blanket can be removed. Bradycardia has resolved, heart rate currently 66 bpm on bedside monitor. Blood pressure marginal, currently 87/51 mmHg. He was given a stress dose of Solu-Cortef in the ED. A Charles catheter was placed and patient's urometer is full with clear yellow urine. Electrolytes are currently being replaced. Abdomen is nondistended and nontender. Patient is unclear when he last had a paracentesis. Denies any alcohol use for many years. Serum alcohol is less than 10. Denies any nausea, vomiting, diarrhea. No reports of aspiration. Denies any difficulty in breathing. On room air. No coughing, sputum production, chest pain. Denies fevers or chills. Chest x-ray remarkable for chronic small right-sided pleural effusion. No acute cardiopulmonary process. Started empirically on Unasyn in the ED. No obvious source of infection identified at this point. 02/02/2025, the patient is on room air oxygen. No respiratory difficulties. No cough sputum production chest tightness or wheezing. The patient has been resuscitated with IV fluids and the patient was taken off the diuretics. He is currently normotensive. BUN and creatinine continues to improve. The patient is also known to me. On today's blood work, sodium is at 129, potassium is at 3.4, BUN is 47 creatinine 1.1. Glucose at 231 with a calcium level of 8.6. The white cell count is at 5 with a hemoglobin of 10 and a platelet count of 54. The patient is on IV Unasyn. The patient is on hydrocortisone stress dose. The patient is on Synthroid. The patient is on DuoNeb updrafts and Spiriva and the rest of the home medication below resume. On 02/03/2025, patient is resting comfortably in bed. He is on room air oxygen. Hemodynamically stable. Receiving IV fluids. Diuretics are still on hold. Tolerating diet. No altered mentation. No chest pain. No hypotension. No hypothermia. The white cell count is at 3 with a hemoglobin 9.1 and platelet count of 48. BUN is 42 with a creatinine 1.3 and a sodium levels at 136. No other significant events overnight. Objective - Vital Signs Vital signs: Vital Signs Temp 98.0 F 02/03/25 07:30 Pulse 80 02/03/25 10:11 Resp 17 02/03/25 07:30 BP 109/50 02/03/25 07:30 Pulse Ox 96 02/03/25 07:30 FiO2 Intake & Output 02/02/25 02/03/25 02/03/25 18:59 06:59 18:59 Intake Total 1678 Output Total 1075 200 Balance 603 -200 Weight 98 kg Intake: Oral 1678 Output: Urine 1075 200 Other: Voiding Method Urinal Urinal # Voids 1 # Bowel Movements 1 - Exam GENERAL EXAM: Alert, 65-year-old male, lying supine, blood pressure borderline hypotensive, external warming blanket on, appears fairly comfortable in no apparent distress. HEAD: Normocephalic and atraumatic EYES: Normal reaction of pupils, equal size. Nonicteric sclera. No nystagmus. NOSE: Clear with pink turbinates. THROAT: No erythema or exudates. NECK: No masses, no JVD. CHEST: No chest wall deformity. LUNGS: Equal air entry with no crackles, wheeze, rhonchi or dullness. On room air. No conversational dyspnea or accessory muscle use.. CVS: S1 and S2 normal with no audible murmur, regular rhythm. No extra heart sounds ABDOMEN: Obese, reducible periumbilical hernia, active bowel sounds, abdomen soft and nondistended, no guarding or rigidity, no hepatosplenomegaly. SPINE: No scoliosis or deformity SKIN: Nonjaundiced. No rashes. Remote appearing medial right calf skin graft. CENTRAL NERVOUS SYSTEM: No focal deficits, tone is normal in all 4 extremities. EXTREMITIES: There is no peripheral edema, clubbing, or cyanosis. Peripheral pulses are intact. No limitation of active ROM. - Labs CBC & Chem 7: 02/03/25 03:21 02/03/25 03:21 Labs: Abnormal Lab Results - Last 24 Hours (Table) 02/02/25 02/02/25 02/02/25 Range/Units 11:19 16:09 20:39 WBC (4.50-10.00) X 10*3/uL RBC (4.40-5.60) X 10*6/uL Hgb (13.0-17.0) g/dL Hct (39.6-50.0) % MCV (80.0-97.0) FL MCHC (32.0-37.0) g/dL RDW (11.5-14.5) % Plt Count (140-440) X 10*3/uL Immature Gran # (0.00-0.04) X 10*3/uL Lymphocytes # (0.90-5.00) X 10*3/uL Monocytes # (0.20-1.00) X 10*3/uL Eosinophils # (0.04-0.35) X 10*3/uL Potassium (3.5-5.5) mmol/L BUN (9.0-27.0) mg/dL BUN/Creatinine Ratio (12.00-20.00) Ratio Glucose (70-110) mg/dL POC Glucose (mg/dL) 219 H 289 H 367 H (70-110) mg/dL Calcium (8.7-10.3) mg/dL AST (14-35) U/L Total Protein (6.2-8.2) g/dL Albumin (3.8-4.9) g/dL Albumin/Globulin Ratio (1.60-3.17) Ratio 02/03/25 02/03/25 02/03/25 Range/Units 03:21 03:21 06:08 WBC 3.03 L (4.50-10.00) X 10*3/uL RBC 2.91 L (4.40-5.60) X 10*6/uL Hgb 9.1 L (13.0-17.0) g/dL Hct 28.9 L (39.6-50.0) % MCV 99.3 H (80.0-97.0) FL MCHC 31.5 L (32.0-37.0) g/dL RDW 17.1 H (11.5-14.5) % Plt Count 48 A* (140-440) X 10*3/uL Immature Gran # 0.05 H (0.00-0.04) X 10*3/uL Lymphocytes # 0.42 L (0.90-5.00) X 10*3/uL Monocytes # 0.15 L (0.20-1.00) X 10*3/uL Eosinophils # 0 L (0.04-0.35) X 10*3/uL Potassium 3.2 L (3.5-5.5) mmol/L BUN 42.1 H (9.0-27.0) mg/dL BUN/Creatinine Ratio 32.38 H (12.00-20.00) Ratio Glucose 207 H (70-110) mg/dL POC Glucose (mg/dL) 184 H (70-110) mg/dL Calcium 8.4 L (8.7-10.3) mg/dL AST 48 H (14-35) U/L Total Protein 5.8 L (6.2-8.2) g/dL Albumin 3.4 L (3.8-4.9) g/dL Albumin/Globulin Ratio 1.42 L (1.60-3.17) Ratio Microbiology - Last 24 Hours (Table) 02/01/25 01:20 Blood Culture - Preliminary Blood Assessment and Plan Assessment: Hypotension, requiring multiple fluid boluses, 3 L normal saline bolus and the patient was maintained IV fluids and currently normotensive. He is also off diuretics. No clear indication for underlying sepsis at this point. Sinus bradycardia, resolved Hypothermia, temperature 90.6 F on arrival, external warming blanket was used and currently normothermic Multiple electrolyte disturbances including hypokalemia and hyponatremia Altered mental status, suspect acute metabolic encephalopathy, secondary to combination above, improved and the patient's mentation is back to normal Chronic obstructive pulmonary disease, stable/inactive Chronic ongoing tobacco dependence History of alcohol abuse, serum alcohol less than 10 on arrival History of liver cirrhosis and ascites, previously requiring paracentesis Chronic thrombocytopenia Chronic kidney disease stage III, previously requiring temporary hemodialysis, creatinine stable Diabetes mellitus, insulin-dependent Hypothyroidism Anemia of chronic disease, hemoglobin stable History of left intertrochanteric fracture status post intramedullary nailing with fixation Plan: Blood pressure is stable and the patient denies having any specific complaints. No reported hypotension or hypothermia. Will change to lactated Ringer to KVO Hold diuretics Bradycardia is resolved Continue IV Unasyn No obvious source of infection identified at this time. No signs of SBP Chest x-ray reviewed, chronic changes without acute focal infiltrates Urinalysis unremarkable for infection Obtain blood cultures, results are still pending for now Given stress dose of Solu-Cortef in the ED Urine toxicology screen positive for oxycodone and benzodiazepines Serum alcohol level less than 10 Prognosis is guarded secondary to above-mentioned comorbidities. Will follow.
[2025-02-03 16:38] LABS: Glucose,Whole Blood 298 mg/dL (70-110)
--- NOTE | 2025-02-03 17:23 | P.PN ---
Subjective Progress Note Date: 02/03/25 Subjective: Patient seen and examined at bedside. No acute events overnight. Complaining of left hip pain. Denies fever, chills, chest pain, shortness of breath, nausea or vomiting, belly pain, diarrhea or constipation. Pertinent positives and negatives as discussed above, a complete review of systems was performed and all other systems are negative. Vitals Signs Reviewed. General: Nontoxic, no distress, appears at stated age Derm: Warm, dry Head: Atraumatic, normocephalic, symmetric Eyes: EOMI, no lid lag, anicteric sclera Mouth: No lip lesion, mucus membranes moist Cardiovascular: S1S2 reg, no murmur Lungs: CTA bilateral, no rhonchi, no rales, no accessory muscle use Abdominal: Soft, nontender to palpation, no guarding, no appreciable organomegaly Ext: No gross muscle atrophy, no edema, no contractures, right hip flexion limited due to pain Neuro: CN II-XI grossly intact, no focal neuro deficits Psych: Alert, oriented, appropriate affect Data Reviewed Today: Pertinent Labs: WBC 3.03, hemoglobin 9.1, hematocrit 28.9, platelet 48, sodium 136, potassium 3.2, BUN 42.1, creatinine 1.3, glucose ranging from 207-231, corrected calcium of 8.9 Imaging: Chest x-ray on 02/01/2025 showed pleural-based calcifications redemonstrated on the right. Correlate for any history of prior asbestos exposure versus previous empyema/hemothorax. Ongoing small right pleural effusion. Similar interstitial density could reflect pulmonary vascular congestion. Assessment and Plan: Active: Suspected adrenal crisis Hypotension, resolved Hypothermia, resolved Sinus bradycardia, resolved Hypokalemia Hyponatremia, resolved Alcoholic liver cirrhosis Acute metabolic encephalopathy, resolved - Unclear source of infection - No clear signs of peritonitis or decompensated liver failure - Currently being empirically treated on IV Unasyn 3 g every 6 hours - Preliminary blood culture showed no growth - On stress dose steroids, reduce hydrocortisone to 50 every 12 hours IV, hold home hydrocortisone - Continue to hold home metolazone, spironolactone, torsemide - Blood pressure has improved - 20 mEq potassium chloride once was given today - Sodium 136 - Continue home IV rifaximin 550 every 12 hours, lactulose 20 g every 12 hours - Mental status at baseline, urine toxicology positive for benzo and oxycodone - Patient currently back on home oxycodone 5 every 8 hours Type 2 diabetes - Holding home insulin therapy, increased to 50 units of Lantus daily. - One-time 20 units of Lantus was given today - Continue sliding scale insulin - Hold other home oral antidiabetics Left hip pain - Continue with Tylenol and oxycodone - Pelvic x-ray on admission did not show any fractures Bicytopenia -Likely secondary to cirrhosis - Monitor morning CBC Chronic: COPD, not in exacerbation CAD CKD, likely stage II Hypothyroidism Dyslipidemia DVT ppx: Subcu heparin Code status: Full code Anticipated discharge place: Pending clinical course Anticipated discharge time: Pending clinical course I have seen and evaluated the patient today. Discussed with the resident and agree with the residents finding and plan as documented in the resident's note. Changes highlighted in blue font. Objective - Vital Signs Vital signs: Vital Signs Temp 98.2 F 02/03/25 00:38 Pulse 65 02/03/25 00:38 Resp 17 02/03/25 00:38 BP 103/63 02/03/25 00:38 Pulse Ox 96 02/03/25 00:38 FiO2 Intake & Output 02/02/25 02/03/25 02/03/25 18:59 06:59 18:59 Intake Total 1678 Output Total 1075 200 Balance 603 -200 Weight 98 kg Intake: Oral 1678 Output: Urine 1075 200 Other: Voiding Method Urinal # Voids 1 # Bowel Movements 1 - Labs CBC & Chem 7: 02/03/25 03:21 02/03/25 03:21 Labs: Abnormal Lab Results - Last 24 Hours (Table) 02/01/25 02/02/25 02/02/25 Range/Units 05:45 08:55 08:55 RBC 3.04 L (4.40-5.60) 10*6/uL Hgb 10.0 L (13.0-17.0) g/dL Hct 30.3 L (39.6-50.0) % MCV 99.7 H (80.0-97.0) fL MCH 32.9 H (27.0-32.0) pg Plt Count 54 L (140-440) 10*3/uL Immature Gran # 0.06 H (0.00-0.04) 10*3/uL Lymphocytes # 0.38 L (0.90-5.00) 10*3/uL Monocytes # 0.17 L (0.20-1.00) 10*3/uL Eosinophils # 0.00 L (0.04-0.35) 10*3/uL Sodium 129 L (137-145) mmol/L Potassium 3.4 L (3.5-5.1) mmol/L Chloride 95 L (98-107) mmol/L BUN 47 H (9-20) mg/dL Glucose 231 H (74-99) mg/dL POC Glucose (mg/dL) (70-110) mg/dL Hemoglobin A1c 7.7 H (<=6.0) % 02/02/25 02/02/25 02/02/25 Range/Units 11:19 16:09 20:39 RBC (4.40-5.60) 10*6/uL Hgb (13.0-17.0) g/dL Hct (39.6-50.0) % MCV (80.0-97.0) fL MCH (27.0-32.0) pg Plt Count (140-440) 10*3/uL Immature Gran # (0.00-0.04) 10*3/uL Lymphocytes # (0.90-5.00) 10*3/uL Monocytes # (0.20-1.00) 10*3/uL Eosinophils # (0.04-0.35) 10*3/uL Sodium (137-145) mmol/L Potassium (3.5-5.1) mmol/L Chloride (98-107) mmol/L BUN (9-20) mg/dL Glucose (74-99) mg/dL POC Glucose (mg/dL) 219 H 289 H 367 H (70-110) mg/dL Hemoglobin A1c (<=6.0) % 02/03/25 Range/Units 06:08 RBC (4.40-5.60) 10*6/uL Hgb (13.0-17.0) g/dL Hct (39.6-50.0) % MCV (80.0-97.0) fL MCH (27.0-32.0) pg Plt Count (140-440) 10*3/uL Immature Gran # (0.00-0.04) 10*3/uL Lymphocytes # (0.90-5.00) 10*3/uL Monocytes # (0.20-1.00) 10*3/uL Eosinophils # (0.04-0.35) 10*3/uL Sodium (137-145) mmol/L Potassium (3.5-5.1) mmol/L Chloride (98-107) mmol/L BUN (9-20) mg/dL Glucose (74-99) mg/dL POC Glucose (mg/dL) 184 H (70-110) mg/dL Hemoglobin A1c (<=6.0) % Microbiology - Last 24 Hours (Table) 02/01/25 01:20 Blood Culture - Preliminary Blood
[2025-02-03] MEDS: HYDROCORTISONE SUCCINATE 100 MG/2 ML VIAL IV SCH (20:19)
[2025-02-03 20:58] LABS: Glucose,Whole Blood 148 mg/dL (70-110)
[2025-02-04 06:10] LABS: Glucose,Whole Blood 325 mg/dL (70-110)
[2025-02-04] MEDS: INSULIN GLARGINE (LANTUS) 100 UNIT/ML SYR SQ SCH (06:17)
[2025-02-04 08:46] LABS: Basophils # (A) 0.01 10*3/uL (0.00-0.10); Basophils % (A) 0.3 %; Eosinophils # (A) 0.02 10*3/uL (0.04-0.35); Eosinophils % (A) 0.7 %; HCT 27.4 % (39.6-50.0); HGB 8.8 g/dL (13.0-17.0); Lymphocytes # (A) 0.68 10*3/uL (0.90-5.00); Lymphocytes % (A) 23.8 %; MCH 32.4 pg (27.0-32.0); MCHC 32.1 g/dL (32.0-37.0); MCV 100.7 fL (80.0-97.0); Monocytes # (A) 0.16 10*3/uL (0.20-1.00); Monocytes % (A) 5.6 %; Neutrophils # (A) 1.95 10*3/uL (1.80-7.70); Neutrophils % (A) 68.2 %; RBC 2.72 10*6/uL (4.40-5.60); RDW 17.2 % (11.5-14.5); WBC 2.86 10*3/uL (4.50-10.00)
[2025-02-04 09:00] LABS: ALT 44 U/L (4-49); AST 52 U/L (17-59); African American GFR (CKD) 64 (>60 ml/min/1.73 sqM); Albumin/Globulin Ratio 1.2; Alkaline Phosphatase 135 U/L (38-126); Anion Gap 5 mmol/L; Blood Urea Nitrogen 35 mg/dL (9-20); Calcium 8.2 mg/dL (8.4-10.2); Carbon Dioxide 32 mmol/L (22-30); Chloride 98 mmol/L (98-107); Globulin 2.6 g/dL; Glucose 168 mg/dL (74-99); Non-African American GFR(CKD) 55 (>60 ml/min/1.73 sqM); Potassium 3.3 mmol/L (3.5-5.1); Sodium 135 mmol/L (137-145); Total Bilirubin 0.7 mg/dL (0.2-1.3); Total Protein 5.6 g/dL (6.3-8.2)
[2025-02-04 10:00] LABS: Anisocytosis (M) Present; Platelet Count 39 10*3/uL (140-440); Spherocytes Present
[2025-02-04 10:01] LABS: Large Platelets Present
[2025-02-04 11:27] LABS: Glucose,Whole Blood 213 mg/dL (70-110)
[2025-02-04] MEDS: POTASSIUM CHLORIDE ER 20 MEQ TAB.ER PO STA (12:00)
[2025-02-04] MEDS: SPIRONOLACTONE 25 MG TAB PO SCH (12:00)
--- NOTE | 2025-02-04 12:32 | P.PN ---
Subjective Progress Note Date: 02/04/25 Subjective: Patient seen and examined at bedside. No acute events overnight. Complaining of left hip pain. Denies fever, chills, chest pain, shortness of breath, nausea or vomiting, belly pain, diarrhea or constipation. Pertinent positives and negatives as discussed above, a complete review of systems was performed and all other systems are negative. Vitals Signs Reviewed. General: Nontoxic, no distress, appears at stated age Derm: Warm, dry Head: Atraumatic, normocephalic, symmetric Eyes: EOMI, no lid lag, anicteric sclera Mouth: No lip lesion, mucus membranes moist Cardiovascular: S1S2 reg, no murmur Lungs: CTA bilateral, no rhonchi, no rales, no accessory muscle use Abdominal: Soft, nontender to palpation, no guarding, no appreciable organomegaly Ext: No gross muscle atrophy, no edema, no contractures, right hip flexion limited due to pain Neuro: CN II-XI grossly intact, no focal neuro deficits Psych: Alert, oriented, appropriate affect Data Reviewed Today: Pertinent Labs: WBC 2.86, hemoglobin 8.8, hematocrit 27.4, platelet 39, sodium 135, potassium 3.3, BUN 35, creatinine 1.35, glucose ranging from 168-213. Imaging: Chest x-ray on 02/01/2025 showed pleural-based calcifications redemonstrated on the right. Correlate for any history of prior asbestos exposure versus previous empyema/hemothorax. Ongoing small right pleural effusion. Similar interstitial density could reflect pulmonary vascular congestion. Assessment and Plan: Active: Suspected adrenal crisis Hypotension, resolved Hypothermia, resolved Sinus bradycardia, resolved Hypokalemia Hyponatremia, resolved Alcoholic liver cirrhosis Acute metabolic encephalopathy, resolved - Unclear source of infection - No clear signs of peritonitis or decompensated liver failure - Discontinue IV Unasyn - Preliminary blood culture and sputum culture showed no growth - On stress dose steroids, reduce hydrocortisone to 50 daily IV, hold home hydrocortisone - Continue to hold home metolazone, spironolactone, torsemide - Blood pressure has improved - 40 mEq potassium chloride once was given today - Sodium 135 - Continue home IV rifaximin 550 mg every 12 hours, lactulose 20 g every 12 h ours - Mental status at baseline, urine toxicology positive for benzo and oxycodone - Patient currently back on home oxycodone 5 every 8 hours Type 2 diabetes Continue Lantus 50 unit daily Start lispro 10 unit subcu AC 3 times daily Continue sliding scale insulin Monitor for hypoglycemia Left hip pain - Continue with Tylenol and oxycodone - Pelvic x-ray on admission did not show any fractures Pancytopenia -Likely secondary to cirrhosis - Monitor morning CBC Chronic: COPD, not in exacerbation CAD CKD, likely stage II Hypothyroidism Dyslipidemia DVT ppx: Subcu heparin Code status: Full code Anticipated discharge place: Pending clinical course Anticipated discharge time: Pending clinical course I have seen and evaluated the patient today. Discussed with the resident and agree with the residents finding and plan as documented in the resident's note. Changes highlighted in blue font. Objective - Vital Signs Vital signs: Vital Signs Temp 98.5 F 02/04/25 00:15 Pulse 89 02/04/25 00:15 Resp 16 02/04/25 00:15 BP 109/57 02/04/25 00:15 Pulse Ox 95 02/04/25 00:15 FiO2 Intake & Output 02/03/25 02/04/25 02/04/25 18:59 06:59 18:59 Output Total 400 150 Balance -400 -150 Weight 98.1 kg Output: Urine 400 150 Other: Voiding Method Urinal Urinal # Bowel Movements 1 - Labs CBC & Chem 7: 02/04/25 08:11 02/04/25 08:11 Labs: Abnormal Lab Results - Last 24 Hours (Table) 02/03/25 02/03/25 02/03/25 Range/Units 03:21 03:21 11:29 WBC 3.03 L (4.50-10.00) X 10*3/uL RBC 2.91 L (4.40-5.60) X 10*6/uL Hgb 9.1 L (13.0-17.0) g/dL Hct 28.9 L (39.6-50.0) % MCV 99.3 H (80.0-97.0) FL MCHC 31.5 L (32.0-37.0) g/dL RDW 17.1 H (11.5-14.5) % Plt Count 48 A* (140-440) X 10*3/uL Immature Gran # 0.05 H (0.00-0.04) X 10*3/uL Lymphocytes # 0.42 L (0.90-5.00) X 10*3/uL Monocytes # 0.15 L (0.20-1.00) X 10*3/uL Eosinophils # 0 L (0.04-0.35) X 10*3/uL Potassium 3.2 L (3.5-5.5) mmol/L BUN 42.1 H (9.0-27.0) mg/dL BUN/Creatinine Ratio 32.38 H (12.00-20.00) Ratio Glucose 207 H (70-110) mg/dL POC Glucose (mg/dL) 362 H (70-110) mg/dL Calcium 8.4 L (8.7-10.3) mg/dL AST 48 H (14-35) U/L Total Protein 5.8 L (6.2-8.2) g/dL Albumin 3.4 L (3.8-4.9) g/dL Albumin/Globulin Ratio 1.42 L (1.60-3.17) Ratio 02/03/25 02/03/25 02/04/25 Range/Units 16:37 20:52 06:07 WBC (4.50-10.00) X 10*3/uL RBC (4.40-5.60) X 10*6/uL Hgb (13.0-17.0) g/dL Hct (39.6-50.0) % MCV (80.0-97.0) FL MCHC (32.0-37.0) g/dL RDW (11.5-14.5) % Plt Count (140-440) X 10*3/uL Immature Gran # (0.00-0.04) X 10*3/uL Lymphocytes # (0.90-5.00) X 10*3/uL Monocytes # (0.20-1.00) X 10*3/uL Eosinophils # (0.04-0.35) X 10*3/uL Potassium (3.5-5.5) mmol/L BUN (9.0-27.0) mg/dL BUN/Creatinine Ratio (12.00-20.00) Ratio Glucose (70-110) mg/dL POC Glucose (mg/dL) 298 H 148 H 325 H (70-110) mg/dL Calcium (8.7-10.3) mg/dL AST (14-35) U/L Total Protein (6.2-8.2) g/dL Albumin (3.8-4.9) g/dL Albumin/Globulin Ratio (1.60-3.17) Ratio Microbiology - Last 24 Hours (Table) 02/01/25 01:20 Blood Culture - Preliminary Blood
[2025-02-04] MEDS: INSULIN LISPRO (HumaLOG) 100 UNIT/ML 10 mL VL SQ SCH (12:41)
--- NOTE | 2025-02-04 15:45 | P.PN ---
Subjective Progress Note Date: 02/04/25 Patient is a 65-year-old male with past medical history significant for multiple comorbidities including COPD, chronic ongoing tobacco dependence, diabetes mellitus, hypothyroidism, alcoholism, liver cirrhosis and previous paracentesis, previous episode of acute kidney injury on top of chronic kidney disease requiring temporary hemodialysis, and previous episode of aspiration/pneumonia requiring intubation with mechanical ventilation. Patient brought in by EMS yesterday evening after being found on the ground and confused. Evaluation in the ED found the patient to be hypotensive, hypothermic, and bradycardic. Patient received several warmed fluid boluses, including a total of 3 L normal saline so far. Patient's temperature 90.6 F rectally, and a external warming blanket was applied. Bradycardia as low as 46 bpm, with sinus mechanism. Also, noted to have several electrolyte disturbances including severe hypokalemia with a potassium of 2.5. Remaining labs including a CBC with a WBC count of 8.2, hemoglobin 11, platelets 48,000. CMP: Sodium 128, potassium 2.5, chloride 82, serum bicarb 39, BUN 75, creatinine 1.21, glucose 159. LFTs not elevated. Total bilirubin 1.2. Lactic 1.1. TSH 1. Troponin 0.015. NT proBNP 666. EKG: Sinus bradycardia, rate 56 bpm, no acute ST elevations or depressions. Occasional PVC. Urinalysis unremarkable for infection. Urine toxicology screen positive for oxycodone and benzodiazepines. He is complaining of left hip pain. Did have a fall with left hip fracture back in August,. He underwent intramedullary nailing with fixation of the left intertrochanteric fracture. Pelvis x-ray did not show any acute osseous pathology. Post fixation changes of the left proximal femur. Moderate osteoarthritic changes of bilateral hips. CT of the head and C-spine did not show any acute intracranial process. No cerv ical spine fracture or subluxation. Chronic right maxillary sinusitis with air- fluid level suggesting acute on chronic sinusitis. Bilateral mastoid effusions redemonstrated. Patient currently being evaluated in the emergency department, room 7. He is awake and alert. He does not recall the events prior to him ending up on the floor. States he was the one that called 911. His primary complaint is left hip pain. Temperature is now normothermic and external warming blanket can be removed. Bradycardia has resolved, heart rate currently 66 bpm on bedside monitor. Blood pressure marginal, currently 87/51 mmHg. He was given a stress dose of Solu-Cortef in the ED. A Charles catheter was placed and patient's urometer is full with clear yellow urine. Electrolytes are currently being replaced. Abdomen is nondistended and nontender. Patient is unclear when he last had a paracentesis. Denies any alcohol use for many years. Serum alcohol is less than 10. Denies any nausea, vomiting, diarrhea. No reports of aspiration. Denies any difficulty in breathing. On room air. No coughing, sputum production, chest pain. Denies fevers or chills. Chest x-ray remarkable for chronic small right-sided pleural effusion. No acute cardiopulmonary process. Started empirically on Unasyn in the ED. No obvious source of infection identified at this point. 02/02/2025, the patient is on room air oxygen. No respiratory difficulties. No cough sputum production chest tightness or wheezing. The patient has been resuscitated with IV fluids and the patient was taken off the diuretics. He is currently normotensive. BUN and creatinine continues to improve. The patient is also known to me. On today's blood work, sodium is at 129, potassium is at 3.4, BUN is 47 creatinine 1.1. Glucose at 231 with a calcium level of 8.6. The white cell count is at 5 with a hemoglobin of 10 and a platelet count of 54. The patient is on IV Unasyn. The patient is on hydrocortisone stress dose. The patient is on Synthroid. The patient is on DuoNeb updrafts and Spiriva and the rest of the home medication below resume. On 02/03/2025, patient is resting comfortably in bed. He is on room air oxygen. Hemodynamically stable. Receiving IV fluids. Diuretics are still on hold. Tolerating diet. No altered mentation. No chest pain. No hypotension. No hypothermia. The white cell count is at 3 with a hemoglobin 9.1 and platelet count of 48. BUN is 42 with a creatinine 1.3 and a sodium levels at 136. No other significant events overnight. On 02/04/2025, the patient is stable. No specific complaints. Resting comfortably in bed and the patient is currently on room air oxygen with a pulse ox of 96%. Blood work shows a white cell count of 2.8, hemoglobin of 8.8 and a platelet count of 39. BUN 35 with a creatinine of 1.35 and sodium is at 135 and a potassium level is at 3.3. Hemodynamically stable. Denies having any other new complaints. Objective - Vital Signs Vital signs: Vital Signs Temp 98.2 F 02/04/25 07:25 Pulse 60 02/04/25 09:36 Resp 17 02/04/25 07:25 BP 125/68 02/04/25 07:25 Pulse Ox 96 02/04/25 07:25 FiO2 Intake & Output 02/03/25 02/04/25 02/04/25 18:59 06:59 18:59 Output Total 400 150 Balance -400 -150 Weight 98.1 kg Output: Urine 400 150 Other: Voiding Method Urinal Urinal Urinal # Bowel Movements 1 - Exam GENERAL EXAM: Alert, 65-year-old male, lying supine, blood pressure borderline hypotensive, external warming blanket on, appears fairly comfortable in no apparent distress. HEAD: Normocephalic and atraumatic EYES: Normal reaction of pupils, equal size. Nonicteric sclera. No nystagmus. NOSE: Clear with pink turbinates. THROAT: No erythema or exudates. NECK: No masses, no JVD. CHEST: No chest wall deformity. LUNGS: Equal air entry with no crackles, wheeze, rhonchi or dullness. On room air. No conversational dyspnea or accessory muscle use.. CVS: S1 and S2 normal with no audible murmur, regular rhythm. No extra heart sounds ABDOMEN: Obese, reducible periumbilical hernia, active bowel sounds, abdomen soft and nondistended, no guarding or rigidity, no hepatosplenomegaly. SPINE: No scoliosis or deformity SKIN: Nonjaundiced. No rashes. Remote appearing medial right calf skin graft. CENTRAL NERVOUS SYSTEM: No focal deficits, tone is normal in all 4 extremities. EXTREMITIES: There is no peripheral edema, clubbing, or cyanosis. Peripheral pulses are intact. No limitation of active ROM. - Labs CBC & Chem 7: 02/04/25 08:11 02/04/25 08:11 Labs: Abnormal Lab Results - Last 24 Hours (Table) 02/03/25 02/03/25 02/03/25 Range/Units 11:29 16:37 20:52 WBC (4.50-10.00) 10*3/uL RBC (4.40-5.60) 10*6/uL Hgb (13.0-17.0) g/dL Hct (39.6-50.0) % MCV (80.0-97.0) fL MCH (27.0-32.0) pg RDW (11.5-14.5) % Plt Count (140-440) 10*3/uL Lymphocytes # (0.90-5.00) 10*3/uL Monocytes # (0.20-1.00) 10*3/uL Eosinophils # (0.04-0.35) 10*3/uL Sodium (137-145) mmol/L Potassium (3.5-5.1) mmol/L Carbon Dioxide (22-30) mmol/L BUN (9-20) mg/dL Creatinine (0.66-1.25) mg/dL Glucose (74-99) mg/dL POC Glucose (mg/dL) 362 H 298 H 148 H (70-110) mg/dL Calcium (8.4-10.2) mg/dL Alkaline Phosphatase (38-126) U/L Total Protein (6.3-8.2) g/dL Albumin (3.5-5.0) g/dL 02/04/25 02/04/25 02/04/25 Range/Units 06:07 08:11 08:11 WBC 2.86 L (4.50-10.00) 10*3/uL RBC 2.72 L (4.40-5.60) 10*6/uL Hgb 8.8 L (13.0-17.0) g/dL Hct 27.4 L (39.6-50.0) % MCV 100.7 H (80.0-97.0) fL MCH 32.4 H (27.0-32.0) pg RDW 17.2 H (11.5-14.5) % Plt Count 39 L (140-440) 10*3/uL Lymphocytes # 0.68 L (0.90-5.00) 10*3/uL Monocytes # 0.16 L (0.20-1.00) 10*3/uL Eosinophils # 0.02 L (0.04-0.35) 10*3/uL Sodium 135 L (137-145) mmol/L Potassium 3.3 L (3.5-5.1) mmol/L Carbon Dioxide 32 H (22-30) mmol/L BUN 35 H (9-20) mg/dL Creatinine 1.35 H (0.66-1.25) mg/dL Glucose 168 H (74-99) mg/dL POC Glucose (mg/dL) 325 H (70-110) mg/dL Calcium 8.2 L (8.4-10.2) mg/dL Alkaline Phosphatase 135 H (38-126) U/L Total Protein 5.6 L (6.3-8.2) g/dL Albumin 3.0 L (3.5-5.0) g/dL Microbiology - Last 24 Hours (Table) 02/01/25 01:20 Blood Culture - Preliminary Blood Assessment and Plan Assessment: Hypotension, requiring multiple fluid boluses, 3 L normal saline bolus and the patient was maintained IV fluids and currently normotensive. He is also off diuretics. No clear indication for underlying sepsis at this point. Sinus bradycardia, resolved Hypothermia, temperature 90.6 F on arrival, external warming blanket was used and currently normothermic Multiple electrolyte disturbances including hypokalemia and hyponatremia Altered mental status, suspect acute metabolic encephalopathy, secondary to combination above, improved and the patient's mentation is back to normal Chronic obstructive pulmonary disease, stable/inactive Chronic ongoing tobacco dependence History of alcohol abuse, serum alcohol less than 10 on arrival History of liver cirrhosis and ascites, previously requiring paracentesis Chronic thrombocytopenia Chronic kidney disease stage III, previously requiring temporary hemodialysis, creatinine stable Diabetes mellitus, insulin-dependent Hypothyroidism Anemia of chronic disease, hemoglobin stable History of left intertrochanteric fracture status post intramedullary nailing with fixation Plan: Blood pressure is stable and the patient denies having any specific complaints. No reported hypotension or hypothermia. Restart Aldactone Monitor potassium Bradycardia is resolved Discontinue IV Unasyn No obvious source of infection identified at this time. No signs of SBP Chest x-ray reviewed, chronic changes without acute focal infiltrates Urinalysis unremarkable for infection Obtain blood cultures, results are still pending for now May switch this patient to oral hydrocortisone maintenance Urine toxicology screen positive for oxycodone and benzodiazepines Serum alcohol level less than 10 Prognosis is guarded secondary to above-mentioned comorbidities. Will follow. Discharge planning is in progress Time with Patient: Greater than 30
[2025-02-04 16:41] LABS: Glucose,Whole Blood 150 mg/dL (70-110)
[2025-02-04] MEDS: ALPRAZolam 0.25 MG TAB PO PRN (18:10)
[2025-02-04 20:34] LABS: Glucose,Whole Blood 168 mg/dL (70-110)
[2025-02-05 06:22] LABS: Glucose,Whole Blood 173 mg/dL (70-110)
[2025-02-05] MEDS: HYDROCORTISONE SUCCINATE 100 MG/2 ML VIAL IV SCH (10:47)
[2025-02-05 11:05] LABS: ALT 56 U/L (4-49); AST 56 U/L (17-59); African American GFR (CKD) 81 (>60 ml/min/1.73 sqM); Albumin 3.4 g/dL (3.5-5.0); Albumin/Globulin Ratio 1.2; Alkaline Phosphatase 128 U/L (38-126); Anion Gap 5 mmol/L; Blood Urea Nitrogen 31 mg/dL (9-20); Calcium 8.8 mg/dL (8.4-10.2); Carbon Dioxide 33 mmol/L (22-30); Chloride 95 mmol/L (98-107); Globulin 2.8 g/dL; Glucose 77 mg/dL (74-99); Non-African American GFR(CKD) 70 (>60 ml/min/1.73 sqM); Potassium 3.9 mmol/L (3.5-5.1); Sodium 133 mmol/L (137-145); Total Bilirubin 0.7 mg/dL (0.2-1.3); Total Protein 6.2 g/dL (6.3-8.2)
[2025-02-05 11:07] LABS: Basophils # (A) 0.01 10*3/uL (0.00-0.10); Basophils % (A) 0.2 %; Eosinophils # (A) 0.12 10*3/uL (0.04-0.35); Eosinophils % (A) 2.6 %; HCT 31.5 % (39.6-50.0); HGB 9.8 g/dL (13.0-17.0); Lymphocytes # (A) 0.89 10*3/uL (0.90-5.00); Lymphocytes % (A) 19.2 %; MCH 31.8 pg (27.0-32.0); MCHC 31.1 g/dL (32.0-37.0); MCV 102.3 fL (80.0-97.0); Mean Platelet Volume 10.6 fL (9.5-12.2); Monocytes # (A) 0.22 10*3/uL (0.20-1.00); Monocytes % (A) 4.7 %; Neutrophils # (A) 3.35 10*3/uL (1.80-7.70); Neutrophils % (A) 72.2 %; RBC 3.08 10*6/uL (4.40-5.60); RDW 17.4 % (11.5-14.5); WBC 4.64 10*3/uL (4.50-10.00)
[2025-02-05 11:18] LABS: Platelet Count 47 10*3/uL (140-440)
[2025-02-05 11:19] LABS: Glucose,Whole Blood 64 mg/dL (70-110)
[2025-02-05 11:45] LABS: Glucose,Whole Blood 79 mg/dL (70-110)
[2025-02-05 12:56] VITALS: BMI 24.7
--- NOTE | 2025-02-05 14:30 | P.DS ---
Providers Date of admission: 01/31/25 20:06 Expected date of discharge: 02/05/25 Attending physician: Millicent Murrieta MD Consults: 01/31/25 20:05 Consult Physician Routine Consulting Provider: Chavo Pyel Consult Reason/Comments: icu Do you want consulting provider notified?: Yes Primary care physician: Summer Donahue DO Hospital Course: Hospital course 65-year-old male with diabetes mellitus COPD. Patient was brought into the ER by EMS from [facility] after being found down on the floor confused. Patient recalls that probably he was trying to transfer from a chair to bed and somehow fell during that he vaguely reports that event. Upon presentation to the ED patient was hypotensive and hypothermic which was actively resuscitated in the ED until stabilized as his rectal temperature was 90.6 Fahrenheit. Patient at this time reports pain in his right lower extremity which is chronic in nature requesting some pain medications otherwise he has no active complaints denies any chest pain trouble breathing denies any headache changes in vision or hearing denies any nausea vomiting denies any trouble breathing denies any abdominal pain denies any GI bleeding. Initial EKG showed sinus bradycardia with occasional ventricular premature complexes with ventricular rate of 56 bpm. QTc interval [address] elevation or depression. CT of brain and cervical spine showed no acute intracranial process. Nonspecific white matter changes, likely secondary to chronic small vessel ischemic disease. No evidence of cervical spine fracture. Moderate multilevel degenerative disc disease. Chronic right maxillary sinusitis with air-fluid suggesting acute on chronic sinusitis. Correlate clinically. Bilateral mastoid effusions redemonstrated with right greater than left. Chest x-ray on 01/31/2025 showed chronic changes without evidence for acute process. X-ray of pelvis showed no acute osseous pathology. Post fixation changes of the left proximal femur. Moderate osteoarthritic changes of both hips. Chest x-ray on 02/01/2025 showed pleural- based calcification is redemonstrated on the right. Correlate for any history of prior asbestos exposure versus previous empyema/hemothorax. Ongoing small right pleural effusion. Similar interstitial density could reflect pulmonary vascular congestion. Patient was placed on IV hydrocortisone. Patient's sym ptoms improved over the course of hospitalization. He is medically stable to be discharged back to [facility] on 02/05/2025. Patient's hydrocortisone was increased from 15 mg to 25 mg daily. Metolazone 5 mg p.o. every 12 hours, Augmentin [id number], torsemide 40 mg twice daily have been discontinued. Patient recommended to follow-up with Dr. Pyle and primary care physician in 1 to 3 days after discharge. Physical exam GENERAL: This is a 65-year-old in no apparent distress at the time of examination. Pleasant and cooperative. HEENT: Head is atraumatic, normocephalic. Pupils are equal, round, and reactive to light. Sclerae anicteric. Conjunctivae are clear. Mucus membranes of the mouth are moist. Neck is supple. RESPIRATORY: Clear to auscultation. No wheezes, rales, or rhonchi. No use of accessory muscles. Patient maintaining oxygen saturation greater than 92%. No chest wall tenderness is noted on palpation or with deep breathing. CARDIOVASCULAR: Regular rate and rhythm. S1 and S2 noted. No systolic or diastolic murmur auscultated. No JVD noted. No S3 or S4 noted. GASTROINTESTINAL: No distention noted. Abdomen soft and round. Normal active bowel sounds auscultated x 4 quadrants. No pain or tenderness noted upon palpation. INTEGUMENTARY: No cyanosis. No jaundice. No rashes noted. No cellulitis noted. EXTREMITIES: 2+ peripheral pulses. No evidence of peripheral edema. No calf tenderness noted. NEUROLOGIC: Cranial nerves II-XII intact. PSYCHIATRIC: Awake, alert, and oriented X 3. Appropriate affect. Intact judgement and insight. Discharge diagnosis Adrenal insufficiency Alcoholic liver cirrhosis Acute metabolic encephalopathy, resolved Type 2 diabetes Left hip pain Bicytopenia Coronary artery disease CKD likely stage II Hypothyroidism Dyslipidemia COPD, not in exacerbation I saw and evaluated the patient during the [place] and critical portions of this encounter, and discussed the case in detail with the resident author of this note, I agree with the Assessment and Plan, and my changes, if any, are highlighted in blue. A total of 38 minutes was spent on this discharge. Patient Condition at Discharge: Stable Plan - Discharge Summary Discharge Rx Participant: No New Discharge Prescriptions: Continue Lactulose 20 gm PO Q12H Potassium Chloride [K-Tab ER] 20 meq PO DAILY Cholecalciferol (Vitamin D3) [Vitamin D3 (125 MCG = 5,000 IU)] 125 mcg PO DAILY Insulin Lispro-Aabc [Lyumjev Kwikpen U-100] 25 units SQ AC-TID Atorvastatin Calcium 20 mg PO HS diphenhydrAMINE HCL 25 mg PO Q6H PRN PRN Reason: Itching Melatonin 5 mg PO HS Naloxone HCl 0.4 mg IM DIRECTED PRN PRN Reason: Opioid Overdose Rifaximin [Xifaxan] 550 mg PO Q12H Umeclidinium Brm/Vilanterol Tr [Anoro Ellipta 62.5-25 Mcg INH] 1 puff INHALATION RT-DAILY Acetaminophen Tab [Tylenol] 650 mg PO Q6HR PRN PRN Reason: Mild Pain (Scale 1 To 3) House Supplement 120 ml PO DAILY bisacodyL [Dulcolax] 10 mg RECTAL Q24H PRN PRN Reason: Constipation Magnesium Hydroxide [Milk of Magnesia] 2,400 mg PO HS PRN PRN Reason: no bm for 3 days Omeprazole 40 mg PO DAILY oxyCODONE HCL [oxyCODONE HCL (IR)] 5 mg PO Q8H PRN #9 cap PRN Reason: Moderate To Severe Pain (4-10) Spironolactone 25 mg PO DAILY Hydrocortisone [Cortef] 5 mg PO HS Calcium Acetate [PhosLo] 667 mg PO TID-W/MEALS Albuterol Nebulized [Ventolin Nebulized] 2.5 mg INHALATION RT-Q4H PRN PRN Reason: Wheezing Magnesium Oxide [Mag-Ox] 400 mg PO DAILY tab Empagliflozin [Jardiance] 10 mg PO DAILY Levothyroxine Sodium [Synthroid] 100 mcg PO DAILY traZODone HCL [Desyrel] 50 mg PO HS Insulin Glargine/Lixisenatide [Soliqua 100 Unit-33 Mcg/ml Pen] 60 units SQ DAILY Insulin Lispro-Aabc [Lyumjev Kwikpen U-100] See Protocol SQ AC-TID Pioglitazone [Actos] 15 mg PO DAILY Sennosides/Docusate Sodium [Senna Plus 8.6-50 mg Softgel] 1 cap PO DAILY Changed Hydrocortisone [Cortef] 20 mg PO DAILY 90 Days #90 ALPRAZolam [Xanax] 0.25 mg PO Q12H #3 tab Discontinued metOLazone [Zaroxolyn] 5 mg PO Q12H Amoxic-Pot Clav 875-125Mg [Augmentin 875-125] 1 tab PO Q12HR Torsemide [Demadex] 40 mg PO BID Discharge Medication List Lactulose 20 gm PO Q12H 10/07/23 [History] Spironolactone 25 mg PO DAILY 12/16/23 [History] Albuterol Nebulized [Ventolin Nebulized] 2.5 mg INHALATION RT-Q4H PRN 12/17/23 [History] Calcium Acetate [PhosLo] 667 mg PO TID-W/MEALS 12/17/23 [History] Hydrocortisone [Cortef] 5 mg PO HS 12/17/23 [History] Magnesium Oxide [Mag-Ox] 400 mg PO DAILY tab 12/24/23 [Rx] Atorvastatin Calcium 20 mg PO HS 05/19/24 [History] Cholecalciferol (Vitamin D3) [Vitamin D3 (125 MCG = 5,000 IU)] 125 mcg PO DAILY 05/19/24 [History] Insulin Lispro-Aabc [Fideliaumketurah Lynnikpen U-100] 25 units SQ AC-TID 05/19/24 [History] Potassium Chloride [K-Tab ER] 20 meq PO DAILY 05/19/24 [History] Acetaminophen Tab [Tylenol] 650 mg PO Q6HR PRN 09/18/24 [History] Empagliflozin [Jardiance] 10 mg PO DAILY 09/18/24 [History] Levothyroxine Sodium [Synthroid] 100 mcg PO DAILY 09/18/24 [History] Melatonin 5 mg PO HS 09/18/24 [History] Naloxone HCl 0.4 mg IM DIRECTED PRN 09/18/24 [History] Rifaximin [Xifaxan] 550 mg PO Q12H 09/18/24 [History] Umeclidinium Brm/Vilanterol Tr [Anoro Ellipta 62.5-25 Mcg INH] 1 puff INHALATION RT-DAILY 09/18/24 [History] diphenhydrAMINE HCL 25 mg PO Q6H PRN 09/18/24 [History] traZODone HCL [Desyrel] 50 mg PO HS 09/18/24 [History] House Supplement 120 ml PO DAILY 01/31/25 [History] Insulin Glargine/Lixisenatide [Soliqua 100 Unit-33 Mcg/ml Pen] 60 units SQ DAILY 01/31/25 [History] Insulin Lispro-Aabc [Lyumjev Kwikpen U-100] See Protocol SQ AC-TID 01/31/25 [History] Magnesium Hydroxide [Milk of Magnesia] 2,400 mg PO HS PRN 01/31/25 [History] Omeprazole 40 mg PO DAILY 01/31/25 [History] Pioglitazone [Actos] 15 mg PO DAILY 01/31/25 [History] Sennosides/Docusate Sodium [Senna Plus 8.6-50 mg Softgel] 1 cap PO DAILY 01/31/25 [History] bisacodyL [Dulcolax] 10 mg RECTAL Q24H PRN 01/31/25 [History] ALPRAZolam [Xanax] 0.25 mg PO Q12H #3 tab 02/05/25 [Rx] Hydrocortisone [Cortef] 20 mg PO DAILY 90 Days #90 02/05/25 [Rx] oxyCODONE HCL [oxyCODONE HCL (IR)] 5 mg PO Q8H PRN #9 cap 02/05/25 [Rx] Follow up Appointment(s)/Referral(s): Summer Donahue DO [Primary Care Provider] - 1-2 days ([facility] please call for follow-up appointment.) Chavo Pyle MD [STAFF PHYSICIAN] - 04/19/25 10:00 am Discharge Disposition: TRANSFER TO SNF/ECF
[2025-02-05 14:38] VITALS: BP 115/66; PULSE 86; RESP 20; TEMP 98
--- NOTE | 2025-02-05 16:56 | P.PN ---
Subjective Progress Note Date: 02/05/25 Patient is a 65-year-old male with past medical history significant for multiple comorbidities including COPD, chronic ongoing tobacco dependence, diabetes mellitus, hypothyroidism, alcoholism, liver cirrhosis and previous paracentesis, previous episode of acute kidney injury on top of chronic kidney disease requiring temporary hemodialysis, and previous episode of aspiration/pneumonia requiring intubation with mechanical ventilation. Patient brought in by EMS yesterday evening after being found on the ground and confused. Evaluation in the ED found the patient to be hypotensive, hypothermic, and bradycardic. Patient received several warmed fluid boluses, including a total of 3 L normal saline so far. Patient's temperature 90.6 F rectally, and a external warming blanket was applied. Bradycardia as low as 46 bpm, with sinus mechanism. Also, noted to have several electrolyte disturbances including severe hypokalemia with a potassium of 2.5. Remaining labs including a CBC with a WBC count of 8.2, hemoglobin 11, platelets 48,000. CMP: Sodium 128, potassium 2.5, chloride 82, serum bicarb 39, BUN 75, creatinine 1.21, glucose 159. LFTs not elevated. Total bilirubin 1.2. Lactic 1.1. TSH 1. Troponin 0.015. NT proBNP 666. EKG: Sinus bradycardia, rate 56 bpm, no acute ST elevations or depressions. Occasional PVC. Urinalysis unremarkable for infection. Urine toxicology screen positive for oxycodone and benzodiazepines. He is complaining of left hip pain. Did have a fall with left hip fracture back in August,. He underwent intramedullary nailing with fixation of the left intertrochanteric fracture. Pelvis x-ray did not show any acute osseous pathology. Post fixation changes of the left proximal femur. Moderate osteoarthritic changes of bilateral hips. CT of the head and C-spine did not show any acute intracranial process. No cerv ical spine fracture or subluxation. Chronic right maxillary sinusitis with air- fluid level suggesting acute on chronic sinusitis. Bilateral mastoid effusions redemonstrated. Patient currently being evaluated in the emergency department, room 7. He is awake and alert. He does not recall the events prior to him ending up on the floor. States he was the one that called 911. His primary complaint is left hip pain. Temperature is now normothermic and external warming blanket can be removed. Bradycardia has resolved, heart rate currently 66 bpm on bedside monitor. Blood pressure marginal, currently 87/51 mmHg. He was given a stress dose of Solu-Cortef in the ED. A Charles catheter was placed and patient's urometer is full with clear yellow urine. Electrolytes are currently being replaced. Abdomen is nondistended and nontender. Patient is unclear when he last had a paracentesis. Denies any alcohol use for many years. Serum alcohol is less than 10. Denies any nausea, vomiting, diarrhea. No reports of aspiration. Denies any difficulty in breathing. On room air. No coughing, sputum production, chest pain. Denies fevers or chills. Chest x-ray remarkable for chronic small right-sided pleural effusion. No acute cardiopulmonary process. Started empirically on Unasyn in the ED. No obvious source of infection identified at this point. 02/02/2025, the patient is on room air oxygen. No respiratory difficulties. No cough sputum production chest tightness or wheezing. The patient has been resuscitated with IV fluids and the patient was taken off the diuretics. He is currently normotensive. BUN and creatinine continues to improve. The patient is also known to me. On today's blood work, sodium is at 129, potassium is at 3.4, BUN is 47 creatinine 1.1. Glucose at 231 with a calcium level of 8.6. The white cell count is at 5 with a hemoglobin of 10 and a platelet count of 54. The patient is on IV Unasyn. The patient is on hydrocortisone stress dose. The patient is on Synthroid. The patient is on DuoNeb updrafts and Spiriva and the rest of the home medication below resume. On 02/03/2025, patient is resting comfortably in bed. He is on room air oxygen. Hemodynamically stable. Receiving IV fluids. Diuretics are still on hold. Tolerating diet. No altered mentation. No chest pain. No hypotension. No hypothermia. The white cell count is at 3 with a hemoglobin 9.1 and platelet count of 48. BUN is 42 with a creatinine 1.3 and a sodium levels at 136. No other significant events overnight. On 02/04/2025, the patient is stable. No specific complaints. Resting comfortably in bed and the patient is currently on room air oxygen with a pulse ox of 96%. Blood work shows a white cell count of 2.8, hemoglobin of 8.8 and a platelet count of 39. BUN 35 with a creatinine of 1.35 and sodium is at 135 and a potassium level is at 3.3. Hemodynamically stable. Denies having any other new complaints. On 02/05/2025, the patient is resting comfortably in bed. No new complaints. He is on room air oxygen. Aldactone was added. No signs of any encephalopathy. The patient is looking forward to be discharged today. The white cell count is 4.6 with a hemoglobin 9.8 and a platelet count of 47. Electrolytes show a serum bicarb of 33, sodium of 133, potassium is at 3.9. AST and ALT of 56 respectively with an alkaline phosphatase of 128. Objective - Vital Signs Vital signs: Vital Signs Temp 98.0 F 02/05/25 14: Pulse 86 02/05/25 14:25 Resp 20 02/05/25 14:25 BP 115/66 02/05/25 14: Pulse Ox 97 02/05/25 14:25 FiO2 Intake & Output 02/04/25 02/05/25 02/05/25 18:59 06:59 18:59 Output Total 650 400 Balance -650 -400 Weight 87.5 kg 87.5 kg Output: Urine 650 400 Other: Voiding Method Urinal Urinal Urinal # Voids 1 3 # Bowel Movements 1 - Exam GENERAL EXAM: Alert, 65-year-old male, lying supine, blood pressure borderline hypotensive, external warming blanket on, appears fairly comfortable in no apparent distress. HEAD: Normocephalic and atraumatic EYES: Normal reaction of pupils, equal size. Nonicteric sclera. No nystagmus. NOSE: Clear with pink turbinates. THROAT: No erythema or exudates. NECK: No masses, no JVD. CHEST: No chest wall deformity. LUNGS: Equal air entry with no crackles, wheeze, rhonchi or dullness. On room air. No conversational dyspnea or accessory muscle use.. CVS: S1 and S2 normal with no audible murmur, regular rhythm. No extra heart sounds ABDOMEN: Obese, reducible periumbilical hernia, active bowel sounds, abdomen soft and nondistended, no guarding or rigidity, no hepatosplenomegaly. SPINE: No scoliosis or deformity SKIN: Nonjaundiced. No rashes. Remote appearing medial right calf skin graft. CENTRAL NERVOUS SYSTEM: No focal deficits, tone is normal in all 4 extremities. EXTREMITIES: There is no peripheral edema, clubbing, or cyanosis. Peripheral pulses are intact. No limitation of active ROM. - Labs CBC & Chem 7: 02/05/25 10:22 02/05/25 10:22 Labs: Abnormal Lab Results - Last 24 Hours (Table) 02/04/25 02/05/25 02/05/25 Range/Units 20:32 06:21 10:22 RBC 3.08 L (4.40-5.60) 10*6/uL Hgb 9.8 L (13.0-17.0) g/dL Hct 31.5 L (39.6-50.0) % MCV 102.3 H (80.0-97.0) fL MCHC 31.1 L (32.0-37.0) g/dL RDW 17.4 H (11.5-14.5) % Plt Count 47 L (140-440) 10*3/uL Immature Gran # 0.05 H (0.00-0.04) 10*3/uL Lymphocytes # 0.89 L (0.90-5.00) 10*3/uL Sodium (137-145) mmol/L Chloride (98-107) mmol/L Carbon Dioxide (22-30) mmol/L BUN (9-20) mg/dL POC Glucose (mg/dL) 168 H 173 H (70-110) mg/dL ALT (4-49) U/L Alkaline Phosphatase (38-126) U/L Total Protein (6.3-8.2) g/dL Albumin (3.5-5.0) g/dL 02/05/25 02/05/25 Range/Units 10:22 11:17 RBC (4.40-5.60) 10*6/uL Hgb (13.0-17.0) g/dL Hct (39.6-50.0) % MCV (80.0-97.0) fL MCHC (32.0-37.0) g/dL RDW (11.5-14.5) % Plt Count (140-440) 10*3/uL Immature Gran # (0.00-0.04) 10*3/uL Lymphocytes # (0.90-5.00) 10*3/uL Sodium 133 L (137-145) mmol/L Chloride 95 L (98-107) mmol/L Carbon Dioxide 33 H (22-30) mmol/L BUN 31 H (9-20) mg/dL POC Glucose (mg/dL) 64 L (70-110) mg/dL ALT 56 H (4-49) U/L Alkaline Phosphatase 128 H (38-126) U/L Total Protein 6.2 L (6.3-8.2) g/dL Albumin 3.4 L (3.5-5.0) g/dL Microbiology - Last 24 Hours (Table) 02/01/25 01:20 Blood Culture - Preliminary Blood Assessment and Plan Assessment: Hypotension, requiring multiple fluid boluses, 3 L normal saline bolus and the patient was maintained IV fluids and currently normotensive. He is also off diuretics. No clear indication for underlying sepsis at this point. Sinus bradycardia, resolved Hypothermia, temperature 90.6 F on arrival, external warming blanket was used and currently normothermic Multiple electrolyte disturbances including hypokalemia and hyponatremia Altered mental status, suspect acute metabolic encephalopathy, secondary to combination above, improved and the patient's mentation is back to normal Chronic obstructive pulmonary disease, stable/inactive Chronic ongoing tobacco dependence History of alcohol abuse, serum alcohol less than 10 on arrival History of liver cirrhosis and ascites, previously requiring paracentesis Chronic thrombocytopenia Chronic kidney disease stage III, previously requiring temporary hemodialysis, creatinine stable Diabetes mellitus, insulin-dependent Hypothyroidism Anemia of chronic disease, hemoglobin stable History of left intertrochanteric fracture status post intramedullary nailing with fixation Plan: The patient is to be discharged to [facility] today. Blood pressure is stable and the patient denies having any specific complaints. No reported hypotension or hypothermia. Aldactone was restarted Rest of the diuretics will be placed on hold Bradycardia is resolved No obvious source of infection identified at this time. No signs of SBP Chest x-ray reviewed, chronic changes without acute focal infiltrates Urinalysis unremarkable for infection Obtain blood cultures, results are still pending for now May switch this patient to oral hydrocortisone maintenance Urine toxicology screen positive for oxycodone and benzodiazepines Serum alcohol level less than 10 Prognosis is guarded secondary to above-mentioned comorbidities. Will follow. Discharge planning is in progress and the patient would like to get discharged today.
== END 2025-02-05 17:09 | DRG 643 ==
LOC: EC 17:27 → 2SICU 20:06 → 3SCARD 02-01 10:12 → 4SSUR 02-02 18:22
PROVIDERS: ADMIT Internal Medicine; ATTEND Internal Medicine
PROC: 3E033XZ Introduction of Vasopressor into Peripheral Vein, Percutaneous Approach (ICD-10-PCS; principal; 2025-02-01)
DX: E27.2 Addisonian crisis (principal); G93.41 Metabolic encephalopathy; D61.818 Other pancytopenia; J90 Pleural effusion, not elsewhere classified; D63.8 Anemia in other chronic diseases classified elsewhere; T68.XXXA Hypothermia, initial encounter; K70.31 Alcoholic cirrhosis of liver with ascites; E11.22 Type 2 diabetes mellitus with diabetic chronic kidney disease; J44.9 Chronic obstructive pulmonary disease, unspecified; F10.20 Alcohol dependence, uncomplicated; E03.9 Hypothyroidism, unspecified; E87.1 Hypo-osmolality and hyponatremia; N17.9 Acute kidney failure, unspecified; Z79.4 Long term (current) use of insulin; J32.0 Chronic maxillary sinusitis; E78.5 Hyperlipidemia, unspecified; I25.10 Atherosclerotic heart disease of native coronary artery without angina pectoris; M16.0 Bilateral primary osteoarthritis of hip; F17.210 Nicotine dependence, cigarettes, uncomplicated; N18.2 Chronic kidney disease, stage 2 (mild); E87.6 Hypokalemia; I95.9 Hypotension, unspecified; R00.1 Bradycardia, unspecified; Z79.84 Long term (current) use of oral hypoglycemic drugs; Z79.890 Hormone replacement therapy; Z79.899 Other long term (current) drug therapy
CPT/HCPCS: 36415; 51702; 70450; 71045; 72125; 72170; 80048; 80053; 80306; 80320; 81003; 82140; 82550; 83036; 83605; 83735; 83880; 84100; 84132; 84443; 84484; 85025; 85610; 85730; 87040; 93005; 94640; 96361; 96365; 96366; 96368; 96375; 96376; 99291